=== PATIENT | male | born 1960 | race Caucasian/White ===

== ENCOUNTER 2023-04-29 09:43 | Outpatient (OUT) | payer MEDICARE, SELFPAY ==
--- NOTE | 2023-04-29 10:06 | CT_ITS ---
[address] [address] Patient Name: JUANITA KRAMER MRN: [id number] date: 1960 Sex: M Assigned Patient Location: CT Current Patient Location: Accession/Order Number: [id number] Exam Date: 04/29/2023 10:15 Report Date: 04/30/2023 10:39 At the request of: JAMESON WHITE Procedure: CT lung screening low-dose EXAMINATION: CT lung screening low-dose HISTORY: Personal History Of Nicotine Dependence Z87.891 COMPARISON: CT chest 04/10/2022 TECHNIQUE: Axial, Coronal, and Sagittal images were created without the administration of IV contrast material. Dose reduction techniques were achieved by using automated exposure control and/or adjustment of mA and/or kV according to patient size and/or use of iterative reconstruction technique. FINDINGS: LUNGS: Several small pleural-based nodules bilaterally, some calcified and some are noncalcified. Mild emphysematous changes. PLEURA: No mass, effusion, or pneumothorax. VASCULATURE: No abnormality. ROSMERY: Calcified right hilar lymph nodes. MEDIASTINUM: Calcified subcarinal lymph nodes. CARDIAC: No enlargement, pericardial thickening, or significant calcification. AORTA: No aneurysm or dissection. CHEST WALL: No mass or axillary adenopathy BONES: No bone lesion or fracture. LIMITED ABDOMEN: No suspicious findings. Limited images of the upper abdomen. OTHER: Negative. CT/CT lung screening low-dose IMPRESSION: 1. Lung-RADS 2- Benign Appearance or Behavior. Nodules with a very low likelihood of becoming a clinically active cancer due to size or lack of growth. Follow-up CT Chest in 1 year. 2. Chronic granulomatous disease. 3. Mild emphysematous changes. Electronically authenticated by: YARIEL OLSON Date: 04/30/2023 10:39
== END 2023-04-29 09:44 | disposition home or self-care (01) ==
LOC: CT 09:46
PROVIDERS: PCP Nurse Practitioner; Visit Provider Internal Medicine
DX: Z87.891 Personal history of nicotine dependence (principal); Z12.2 Encounter for screening for malignant neoplasm of respiratory organs; D71 Functional disorders of polymorphonuclear neutrophils; J43.9 Emphysema, unspecified; R91.8 Other nonspecific abnormal finding of lung field
CPT/HCPCS: 71271

== ENCOUNTER 2023-04-29 09:47 | Outpatient (OUT) | payer MEDICARE, SELFPAY ==
[2023-04-29 10:22] LABS: Basophils Absolute Auto 0.1 10^3/uL (0.0-0.1); Basophils Percent Auto 0.8 % (0.2-2.0); Eosinophils Percent Auto 0.1 % (0.9-7.0); Hematocrit 44.5 % (42.0-54.0); Hemoglobin 14.3 g/dL (14.0-18.0); Immature Granulocytes Abs Auto 0.05 10^3/uL (0.00-0.03); Immature Granulocytes Pct Auto 0.5 % (0.0-0.5); Lymphocytes Absolute Auto 1.4 10^3/uL (1.2-3.8); Lymphocytes Percent Auto 15.4 % (20.5-60.0); Mean Corpuscular HGB Conc 32.1 g/dL (29.9-35.2); Mean Corpuscular Hemoglobin 29.5 pg (25.9-34.0); Mean Corpuscular Volume 91.8 fL (80.0-94.0); Mean Platelet Volume 9.6 fL (9.5-13.5); Monocytes Percent Auto 10.8 % (1.7-12.0); Neutrophils Absolute Auto 6.8 10^3/uL (1.4-6.5); Neutrophils Percent Auto 72.4 % (43.0-75.0); Platelet Count 318 10^3/uL (150-450); Red Blood Count 4.85 10^6/uL (4.70-6.10); Red Cell Distribution Width 12.7 % (11.0-15.0); White Blood Count 9.3 10^3/uL (4.0-11.0)
[2023-04-29 10:27] LABS: Alanine Aminotransferase 25 U/L (16-63); Albumin Level 3.7 g/dL (3.4-5.0); Alkaline Phosphatase 61 U/L (46-116); Anion Gap 11.7; Aspartate Amino Transferase 19 U/L (15-37); BUN Creatinine Ratio 12.7; Bilirubin Total 0.8 mg/dL (0.2-1.0); Calcium 8.6 mg/dL (8.5-10.1); Carbon Dioxide 29.6 mmol/L (21.0-32.0); Chloride 100 mmol/L (98-107); Chol HDL Ratio 2.3; Cholesterol 126 mg/dL (<=200); Estimated GFR (African America >60 (>=60); Estimated GFR (Non-African Ame >60 (>=60); Globulin 3.7 g/dL; Glucose 104 mg/dL (74-106); HDL Cholesterol 54 mg/dL (40-60); LDL Cholesterol Calculated 63.4 mg/dL; Potassium 4.3 mmol/L (3.5-5.1); Sodium 137 mmol/L (136-145); Total Protein 7.4 g/dL (6.4-8.2); Triglycerides 43 mg/dL (<=150); VLDL CHOLESTEROL 8.6 mg/dL
[2023-04-29 10:30] LABS: Bilirubin Urine NEGATIVE (NEGATIVE); Blood Urine NEGATIVE (NEGATIVE); Clarity Urine CLEAR (CLEAR); Color Urine YELLOW (YELLOW); Glucose Urine UA NEGATIVE (NEGATIVE); Ketones Urine NEGATIVE (NEGATIVE); Leukocyte Esterase Urine NEGATIVE (NEGATIVE); Nitrite Urine NEGATIVE (NEGATIVE); Protein Urine NEGATIVE (NEG/TRACE); pH Urine 7.5 (5.0-9.0)
[2023-04-29 10:40] LABS: Bacteria Urine NONE SEEN #/HPF (NONE SEEN); Mucus Urine NONE SEEN (NONE SEEN); RBC Urine NONE SEEN #/HPF (0-2); Squamous Epithelial Cell Urine RARE #/LPF (NONE/RARE); WBC Urine NONE SEEN #/HPF (NONE SEEN)
[2023-04-29 10:55] LABS: Prostate Specific Antigen Scrn 0.94 ng/mL (<=4.00)
== END 2023-04-29 09:48 | disposition home or self-care (01) ==
PROVIDERS: PCP Nurse Practitioner; Visit Provider Nurse Practitioner
DX: I65.29 Occlusion and stenosis of unspecified carotid artery (principal); Z79.899 Other long term (current) drug therapy; Z12.5 Encounter for screening for malignant neoplasm of prostate; Z72.0 Tobacco use
CPT/HCPCS: 36415; 80053; 80061; 81001; 85025; G0103

== ENCOUNTER 2023-09-20 23:50 | Emergency (ER) | payer MEDICARE, SELFPAY ==
[2023-09-21 00:07] VITALS: BP 118/77; PULSE 90; RESP 20; TEMP 36.8; O2SAT 93; BMI 24.4
[2023-09-21 00:10] VITALS: O2SAT 93
--- NOTE | 2023-09-21 00:24 | ECG_ITS ---
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
--- NOTE | 2023-09-21 00:24 | XR_ITS ---
The [address] [address] Patient Name: JUANITA KRAMER MRN: [id number] date: 1960 Sex: M Assigned Patient Location: ER Current Patient Location: ER Accession/Order Number: [id number] Exam Date: 09/21/2023 00:36 Report Date: 09/21/2023 01:01 At the request of: ANG EDWARDS Procedure: XR chest 1V EXAMINATION: XR chest 1V HISTORY: SOB COMPARISON: XR chest 09/25/2022 FINDINGS: LUNGS: No significant pulmonary parenchymal abnormalities. VASCULATURE: No increased pulmonary vasculature. PLEURA: No pneumothorax, effusion, or pleural thickening. CARDIAC: No cardiomegaly or cardiac silhouette abnormality. MEDIASTINUM: No visible mass or adenopathy. BONES: No fracture or visible bone lesion. OTHER: Negative. XR/XR chest 1V IMPRESSION: 1. No acute cardiopulmonary process. Stable chest. Electronically authenticated by: YARIEL OLSON Date: 09/21/2023 01:01
--- NOTE | 2023-09-21 00:25 | ED.SOB1 ---
HPI - SOB/Dyspnea General Chief Complaint: Shortness of Breath/Dyspnea Stated Complaint: SOB, COUGH Time Seen by Provider: 09/21/23 00:06 Source: patient Mode of arrival: walk-in Limitations: no limitations History of Present Illness HPI Narrative: 63-year-old male presents for cough and difficulty breathing. It started earlier today and he is worried about having Covid or influenza. He has chronic obstructive pulmonary disease and quit smoking about a year ago. He's been coughing up sometimes a small amount of white phlegm but generally it's nonproductive. He used his nebulizer home. No known fever. Related Data Home Medications Medication Instructions Recorded Confirmed albuterol sulfate 90 mcg/actuation inhalation 09/21/23 aerosol inhaler aspirin 81 mg tablet,delayed mg 09/21/23 release atorvastatin 40 mg tablet mg 09/21/23 budesonide-formoterol HFA 160 inhalation 09/21/23 mcg-4.5 mcg/actuation aerosol inhaler (Symbicort) fluoxetine 10 mg capsule mg 09/21/23 tiotropium bromide 2.5 inhalation 09/21/23 mcg/actuation mist for inhalation (Spiriva Respimat) trazodone 50 mg tablet mg 09/21/23 Previous Rx's Medication Instructions Recorded azithromycin 250 mg tablet See Rx Instructions PO .COMPLEX #6 09/21/23 (Zithromax Z-Igor) tabs prednisone 10 mg tablet See Rx Instructions .Route 09/21/23 .COMPLEX #30 tabs Allergies Allergy/AdvReac Type Severity Reaction Status Date / Time No Known Drug Allergies Allergy Verified 09/21/23 00:12 Review of Systems ROS Narrative A ten point review of systems is negative except as noted above. PFSH PFSH Social History Smoking status: Former smoker Exam Narrative Exam Narrative: Nurses note and vital signs reviewed and patient is not hypoxic. General: The patient appears well and in no apparent distress. Patient is resting comfortably on cart. Skin: Warm, dry, no pallor noted. There is no rash noted. Head: Normocephalic, atraumatic Eye: Normal conjunctiva, no drainage Ears, Nose, Mouth, and Throat: oral mucosa is moist. Nares patent. Cardiovascular: Regular Rate and Rhythm Respiratory: lateral rhonchi throughout with good air movement and equal breath sounds Back: non-tender GI: soft and nontender Musculoskeletal: The patient has no evidence of calf tenderness, no pitting edema, symmetrical pulses noted bilaterally Neurological: A&O, normal speech Psychiatric: Cooperative Constitutional Vital Signs, click to edit/add: Last Vital Signs Temp 98.3 F 09/21/23 00:07 Pulse 89 09/21/23 01:06 Resp 18 09/21/23 01:06 BP 118/77 09/21/23 00:07 Pulse Ox 94 L 09/21/23 01:06 O2 Del Method Nasal Cannula 09/21/23 00:50 O2 Flow Rate 2 09/21/23 01:06 Course Vital Signs Vital signs: Vital Signs Temperature 98.3 F 09/21/23 00:07 Pulse Rate 90 09/21/23 00:07 Respiratory Rate 20 09/21/23 00:07 Blood Pressure 118/77 09/21/23 00:07 Pulse Oximetry 93 L 09/21/23 00:07 Oxygen Delivery Method Room Air 09/21/23 00:07 Temperature 98.3 F 09/21/23 00:07 Pulse Rate 89 09/21/23 01:06 Respiratory Rate 18 09/21/23 01:06 Blood Pressure 118/77 09/21/23 00:07 Pulse Oximetry 94 L 09/21/23 01:06 Oxygen Delivery Method Nasal Cannula 09/21/23 00:50 Oxygen Delivery Flow Rate 2 09/21/23 01:06 MDM - SOB/Dyspnea MDM Narrative Medical decision making narrative: Covid, influenza, and chest x-ray are negative. He was given IV Solu-Medrol and aerosol treatment and feels improved and is able to be discharged home. Treatment diagnosis and follow-up were discussed with the patient. Differential Diagnosis Differential diagnosis: Likely acute exacerbation of chronic obstructive airways disease, congestive heart failure, community acquired pneumonia and other (Covid, influenza) Lab Data Attestation: I reviewed the patient's lab results. Labs: Lab Results 09/21/23 Range/Units 00:28 WBC 9.7 (4.0-11.0) 10^3/uL RBC 4.72 (4.70-6.10) 10^6/uL Hgb 13.9 L (14.0-18.0) g/dL Hct 43.6 (42.0-54.0) % MCV 92.4 (80.0-94.0) fL MCH 29.4 (25.9-34.0) pg MCHC 31.9 (29.9-35.2) g/dL RDW 12.3 (11.0-15.0) % Plt Count 311 (150-450) 10^3/uL MPV 9.8 (9.5-13.5) fL Neut % (Auto) 69.3 (43.0-75.0) % Lymph % (Auto) 17.9 L (20.5-60.0) % [place] % (Auto) 11.3 (1.7-12.0) % Eos % (Auto) 0.1 L (0.9-7.0) % Baso % (Auto) 0.8 (0.2-2.0) % Neut # (Auto) 6.8 H (1.4-6.5) 10^3/uL Lymph # (Auto) 1.7 (1.2-3.8) 10^3/uL [place] # (Auto) 1.1 H (0.3-0.8) 10^3/uL Eos # (Auto) 0.0 (0.0-0.7) 10^3/uL Baso # (Auto) 0.1 (0.0-0.1) 10^3/uL Abs Immat Gran (auto) 0.06 H (0.00-0.03) 10^3/uL Imm/Tot Granulo (auto) 0.6 H (0.0-0.5) % Sodium 140 (136-145) mmol/L Potassium 4.3 (3.5-5.1) mmol/L Chloride 104 (98-107) mmol/L Carbon Dioxide 29.3 (21.0-32.0) mmol/L Anion Gap 11.0 BUN 27.0 H (7.0-18.0) mg/dL Creatinine 1.12 (0.70-1.30) mg/dL Est GFR ( Amer) >60 (>=60) Est GFR (Non-Af Amer) >60 (>=60) BUN/Creatinine Ratio 24.1 Glucose 109 H (74-106) mg/dL Calcium 9.1 (8.5-10.1) mg/dL SARS-CoV-2 (PCR) Negative (NEGATIVE) Influenza Type A Ag Negative Influenza Type B Ag Negative Imaging Data Chest x-ray: Radiologist's impression: Procedure: XR chest 1V EXAMINATION: XR chest 1V HISTORY: SOB COMPARISON: XR chest 09/25/2022 FINDINGS: LUNGS: No significant pulmonary parenchymal abnormalities. VASCULATURE: No increased pulmonary vasculature. PLEURA: No pneumothorax, effusion, or pleural thickening. CARDIAC: No cardiomegaly or cardiac silhouette abnormality. MEDIASTINUM: No visible mass or adenopathy. BONES: No fracture or visible bone lesion. OTHER: Negative. IMPRESSION: 1. No acute cardiopulmonary process. Stable chest. Electronically authenticated by: YARIEL OLSON Date: 09/21/2023 01:01 Critical Care Time Critical Care Time Critical Care Time: Yes Total Critical Care Time: 35 Attestation: Due to the high probability of sudden and clinically significant deterioration in the patient's condition he/she required the highest level of my preparedness to intervene urgently I provided critical care time including documentation time, medication orders and management, reevaluation, vital sign assessment, ordering and reviewing of lab tests, ordering and reviewing of x-ray studies, and admission orders. Aggregate critical care time is 35 minutes including only time during which I was engaged in work directly related to his/her care and did not include time spent treating other patients simultaneously. Discharge Plan Discharge Chief Complaint: Shortness of Breath/Dyspnea Clinical Impression: Acute exacerbation of chronic obstructive pulmonary disease Patient Disposition: Home, Self-Care Time of Disposition Decision: 02:02 Condition: Good Mode of Transportation: Private Vehicle Prescriptions / Home Meds: New prednisone 10 mg tablet See Rx Instructions .ROUTE .COMPLEX Qty: 30 0RF Rx Instructions: 4 by mouth daily for three days then 3 by mouth daily for three days then 2 by mouth daily for three days then 1 by mouth daily for three days azithromycin [Zithromax Z-Igor] 250 mg tablet See Rx Instructions .ROUTE .COMPLEX Qty: 6 0RF Rx Instructions: For 250 mg dose pack: take 500 mg today (day 1), then 250 mg for 4 days (days 2-5) No Action atorvastatin 40 mg tablet trazodone 50 mg tablet aspirin 81 mg tablet,delayed release (DR/EC) fluoxetine 10 mg capsule albuterol sulfate 90 mcg/actuation HFA aerosol inhaler INHALATION budesonide-formoterol [Symbicort] 160-4.5 mcg/actuation HFA aerosol inhaler INHALATION Spiriva Respimat 2.5 mcg/actuation mist INHALATION Instructions: COPD (Chronic Obstructive Pulmonary Disease) (ED) Stand Alone Forms: Portal Instructions Referrals: Azul Quezada NP [Primary Care Provider] - 1 week
[2023-09-21 00:37] LABS: Basophils Absolute Auto 0.1 10^3/uL (0.0-0.1); Basophils Percent Auto 0.8 % (0.2-2.0); Eosinophils Percent Auto 0.1 % (0.9-7.0); Hematocrit 43.6 % (42.0-54.0); Hemoglobin 13.9 g/dL (14.0-18.0); Immature Granulocytes Abs Auto 0.06 10^3/uL (0.00-0.03); Immature Granulocytes Pct Auto 0.6 % (0.0-0.5); Lymphocytes Absolute Auto 1.7 10^3/uL (1.2-3.8); Lymphocytes Percent Auto 17.9 % (20.5-60.0); Mean Corpuscular HGB Conc 31.9 g/dL (29.9-35.2); Mean Corpuscular Hemoglobin 29.4 pg (25.9-34.0); Mean Corpuscular Volume 92.4 fL (80.0-94.0); Mean Platelet Volume 9.8 fL (9.5-13.5); Monocytes Absolute Auto 1.1 10^3/uL (0.3-0.8); Monocytes Percent Auto 11.3 % (1.7-12.0); Neutrophils Absolute Auto 6.8 10^3/uL (1.4-6.5); Neutrophils Percent Auto 69.3 % (43.0-75.0); Platelet Count 311 10^3/uL (150-450); Red Blood Count 4.72 10^6/uL (4.70-6.10); Red Cell Distribution Width 12.3 % (11.0-15.0); White Blood Count 9.7 10^3/uL (4.0-11.0)
[2023-09-21 00:48] LABS: BUN Creatinine Ratio 24.1; Calcium 9.1 mg/dL (8.5-10.1); Carbon Dioxide 29.3 mmol/L (21.0-32.0); Chloride 104 mmol/L (98-107); Estimated GFR (African America >60 (>=60); Estimated GFR (Non-African Ame >60 (>=60); Glucose 109 mg/dL (74-106); Potassium 4.3 mmol/L (3.5-5.1); Sodium 140 mmol/L (136-145)
[2023-09-21 00:50] VITALS: O2SAT 87
[2023-09-21 00:50] LABS: Influenza Virus A Antigen Negative; Influenza Virus B Antigen Negative; Internal Control Within Normal Limits; SARS-CoV-2 Ag NEGATIVE (NEGATIVE)
[2023-09-21] MEDS: METHYLPREDNISOLONE SOD SUCC PF 125 MG/2 ML VIAL IVP (01:00)
[2023-09-21 01:06] VITALS: PULSE 89; RESP 18; O2SAT 94
[2023-09-21] MEDS: ALBUTEROL SULFATE 2.5 MG/3 ML VIAL NEB IH (01:06)
[2023-09-21 02:33] VITALS: BP 132/70; PULSE 68; RESP 12; O2SAT 98
[2023-09-21 10:23] LABS: SARS-CoV-2 NAA NOT DETECTED (NOT DETECTE)
== END 2023-09-21 02:36 | disposition home or self-care (01) ==
PROVIDERS: Emergency Provider Emergency Medicine; PCP Nurse Practitioner
DX: J44.1 Chronic obstructive pulmonary disease with (acute) exacerbation (principal); Z87.891 Personal history of nicotine dependence; Z79.51 Long term (current) use of inhaled steroids; Z79.82 Long term (current) use of aspirin
CPT/HCPCS: 36415; 71045; 80048; 85025; 87635; 87804; 87811; 93005; 94640; 96374; 99285; J2930

== ENCOUNTER 2023-10-21 11:35 | Inpatient (IN) | payer MEDICARE, SELFPAY ==
[2023-10-21] VITALS (12 sets, daily range): BP systolic 96–141; BP diastolic 72–75; PULSE 91–112; RESP 18–24; TEMP 36.4–37.3; O2SAT 85–106; BMI 29.9; BMI 29.6
--- OUTSIDE RECORDS SUMMARY | 2023-10-21 11:41 | XMS_ITS | CCD ---
Author Name Unknown Address [address] [place] [address] Organization [facility] Care Team Providers Care Feather Sawyer Name Role Phone SAMSA, JAMESON Admitting Unavailable SAMSA, AJMESON Attending Unavailable AICHHOLZ, COATING MACHINE OPERATOR JAYDEN Referring Unavailable AICHHOLZ, COATING MACHINE OPERATOR JAYDEN Primary Care Unavailable SAMSA, JAMESON Consulting Unavailable AICHHOLZ, COATING MACHINE OPERATOR JAYDEN Admitting Unavailable AICHHOLZ, COATING MACHINE OPERATOR JAYDEN Attending Unavailable AICHHOLZ, COATING MACHINE OPERATOR JAYDEN Primary Care Unavailable AICHHOLZ, COATING MACHINE OPERATOR JAYDEN Consulting Unavailable SAMSA, JAMESON Admitting Unavailable SAMSA, JAMESON Attending Unavailable AICHHOLZ, COATING MACHINE OPERATOR JAYDEN Primary Care Unavailable WHITNEY, DR YARIEL Figueroa Consulting Unavailable SAMSA, JAMESON Consulting Unavailable AICHHOLZ, COATING MACHINE OPERATOR JAYDEN Primary Care Unavailable DAREN, DR MAURO Admitting Unavailable DAREN, DR MAURO Attending Unavailable DR YARIEL OLSON Consulting Unavailable DAREN, DR MAURO Consulting Unavailable Problems Active Problems Problem Classification Problem Date Documented Da te Episodic/Chronic Anxiety disorders (1 source) Other specified anxiety disorders; 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: [OTHER SPECIFIED ANXIETY DISORDERS] Onset: 03-07-2022 Chronic Chronic obstructive pulmonary disease and bronchiectasis (5 sources) Emphysema, unspecified; 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: [Centrilobular emphysema] Onset: 04-16-2022 Chronic Occlusion or stenosis of precerebral arteries (4 sources) Occlusion and stenosis of bilateral carotid arteries; 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: [OCCLUSION AND STENOS LEAH CAROTID ART] Onset: 03-06-2022 Chronic Other lower respiratory disease (4 sources) Shortness of breath; 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: [SHORTNESS OF BREATH] Onset: 09-25-2022 Episodic Screening and history of mental health and substance abuse codes (1 source) Personal history of nicotine dependence; 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: [PERSONAL HISTORY OF NICOTINE DEPEND] Onset: 09-27-2022 Episodic Unclassified (1 source) CONTACT W/AND (SUSP) EXPOS COVID-19; 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: [CONTACT W/AND (SUSP) EXPOS COVID-19] Onset: 09-27-2022 Unclassified (1 source) EOSINOPHILIA UNSPECIFIED; 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: [EOSINOPHILIA UNSPECIFIED] Onset: 04-20-2022 Past or Other Problems Problem Classification Problem Date Documented Da te Episodic/Chronic Other screening for suspected conditions (not mental disorders or infectious disease) (5 sources) Encounter for screening for malignant neoplasm of respiratory organs; 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: [Encounter for screening for malignant neoplasm of prostate] Onset: 03-07-2022 Episodic Results Test Name Value Interpretation Reference Range Facility BNPon 09-25-2022 Natriuretic peptide B (Bld) [Mass/Vol] 42.0 pg/mL Normal <=900.0 [facility] Comment on above: Performed By: #### I NFLUAB #### [facility] [address] [place] [address] Dr. Tom Dotson CBC AUTO DIFFon 09-25-2022 BASO # 0.1 103/ul Normal 0.0-0.1 [facility] Comment on above: Performed By: #### C BC #### [facility] [address] [place] [address] Dr. Tom Dotson Basophils/100 WBC (Bld) 0.8 % Normal 0.2-2.0 [facility] Comment on above: Performed By: #### C BC #### [facility] [address] [place] [address] Dr. Tom Dotson EO # 0.0 103/ul Normal 0.0-0.7 [facility] Comment on above: Performed By: #### C BC #### [facility] [address] [place] [address] Dr. Tom Dotson Eosinophils/100 WBC (Bld) 0.0 % Critically low 0.9-7.0 [facility] Comment on above: Performed By: #### C BC #### [facility] [address] [place] [address] Dr. Tom Dotson Erythrocyte distribution width (RBC) [Ratio] 12.4 % Normal 11.0-15.0 [facility] Comment on above: Performed By: #### C BC #### [facility] [address] [place] [address] Dr. Tom Dotson Hematocrit (Bld) [Volume fraction] 43.6 % Normal 42.0-54.0 [facility] Comment on above: Performed By: #### C BC #### [facility] [address] [place] [address] Dr. Tom Dotson Hemoglobin (Bld) [Mass/Vol] 14.3 g/dL Normal 14.0-18.0 [facility] Comment on above: Performed By: #### C BC #### [facility] [address] [place] [address] Dr. Tom Dotson IG # 0.02 10e3/ul Normal 0.00-0.03 [facility] Comment on above: Performed By: #### C BC #### [facility] [address] [place] [address] Dr. Tom Dotson IG % 0.3 % Normal 0.0-0.5 [facility] Comment on above: Performed By: #### C BC #### [facility] [address] [place] [address] Dr. Tom Dotson LYMPH # 1.4 103/ul Normal 1.2-3.8 [facility] Comment on above: Performed By: #### C BC #### [facility] [address] [place] [address] Dr. Tom Dotson Lymphocytes/100 WBC (Bld) 17.3 % Critically low 20.5-60.0 [facility] Comment on above: Performed By: #### C BC #### [facility] [address] [place] [address] Dr. Tom Dotson MANUAL DIFF REQ NO Normal [facility] Comment on above: Performed By: #### C BC #### [facility] [address] [place] [address] Dr. Tom Dotson MCH (RBC) [Entitic mass] 29.8 pg Normal 25.9-34.0 [facility] Comment on above: Performed By: #### C BC #### [facility] [address] [place] [address] Dr. Tmo Dotson MCHC (RBC) [Mass/Vol] 32.8 g/dL Normal 29.9-35.2 [facility] Comment on above: Performed By: #### C BC #### [facility] [address] [place] [address] Dr. Tom Dotson MCV (RBC) [Entitic vol] 90.8 fL Normal 80.0-94.0 [facility] Comment on above: Performed By: #### C BC #### [facility] [address] [place] [address] Dr. Tom Dotson MONO # 0.7 103/ul Normal 0.3-0.8 [facility] Comment on above: Performed By: #### C BC #### [facility] [address] [place] [address] Dr. Tom Dotson Monocytes/100 WBC (Bld) 9.4 % Normal 1.7-12.0 [facility] Comment on above: Performed By: #### C BC #### [facility] [address] [place] [address] Dr. Tom Dotson NEUT # 5.7 103/ul Normal 1.4-6.5 [facility] Comment on above: Performed By: #### C BC #### [facility] [address] [place] [address] Dr. Tom Dotson Neutrophils/100 WBC (Bld) 72.2 % Normal 43.0-75.0 [facility] Comment on above: Performed By: #### C BC #### [facility] [address] [place] [address] Dr. Tom Dotson Platelet mean volume (Bld) [Entitic vol] 9.6 fL Normal 9.5-13.5 [facility] Comment on above: Performed By: #### C BC #### [facility] [address] [place] [address] Dr. Tom Dotson PLT 331 103/ul Normal 150-450 [facility] Comment on above: Performed By: #### C BC #### [facility] [address] [place] [address] Dr. Tom Dotson RBC 4.80 106/ul Normal 4.70-6.10 [facility] Comment on above: Performed By: #### C BC #### [facility] [address] [place] [address] Dr. Tom Dotson WBC 7.8 103/ul Normal 4.0-11.0 [facility] Comment on above: Performed By: #### C BC #### [facility] [address] [place] [address] Dr. Tom Dotson CULTURE BLOODon 09-25-2022 Microscopic examination of blood, culture Culture Observations: NO GROWTH AT 5 DAYS. Normal [facility] Comment on above: Performed By: #### I NFLUAB #### [facility] [address] [place] [address] Dr. Tom Dotson Microscopic examination of blood, culture Culture Observations: NO GROWTH AT 5 DAYS. Normal [facility] Comment on above: Performed By: #### I NFLUAB #### [facility] [address] [place] [address] Dr. Tom Dotson Covid-19 PCR (CVDTB)on SARS-CoV-2 (COVID-19) RNA OLAG+probe Ql (Unsp spec) Not detected Normal NOT DETECTED [facility] Comment on above: Result Comment: When diagnostic testing is negative, the possibility of a false negative should be considered in the context of a patient's recent exposures and the presence of clinical signs and symptoms consistent with SARS-CoV-2. This test is not yet approved or cleared by the [place] FDA. When there are no FDA-approved or cleared tests available, and other criteria are met, FDA can make tests available under an emergency access mechanism called an Emergency Use Authorization (EUA). The EUA for this test is supported by the [place] [employer] Superintendent of Health and Human Service's declaration that circumstances exist to justify the emergency use of in vitro diagnostics for the detection and/or diagnosis of the virus that causes COVID-19. This EUA will remain in effect for the duration of the COVID-19 declaration justifying emergency of IVDs, unless it is terminated or revoked by the FDA (after which the test may no longer be used). Performed By: #### C VDTBH #### [facility] [address] [place] [address] Dr. Tom Dotson INFLUENZA A AND B AGon 09-25 INFLUANEGH SEE BELOW Normal [facility] Comment on above: Result Comment: Nega tive for Flu A protein angiten. Infection due to Flu A cannot be ruled out. Flu A angiten in the sample may be below the detection limit of the test. Performed By: #### I NFLUAB #### [facility] [address] [place] [address] Dr. Tom Dotson INFLUBNEG SEE BELOW Normal [facility] Comment on above: Result Comment: Nega tive for Flu B protein antigen. Infection due to Flu B cannot be ruled out. Flu B antigen in the sample may be below the detection limit of the test. Performed By: #### I NFLUAB #### [facility] [address] [place] [address] Dr. Tom Dotson INFLUENZA A AG Negative Normal NEGATIVE SEE COMMENT [facility] Comment on above: Performed By: #### I NFLUAB #### [facility] [address] [place] [address] Dr. Tom Dotson INFLUENZA B AG Negative Normal NEGATIVE SEE COMMENT [facility] Comment on above: Performed By: #### I NFLUAB #### [facility] [address] [place] [address] Dr. Tom Dotson LACTATE/LACTIC ACIDon 2022 Lactate [Moles/Vol] 0.7 mmol/L Normal 0.4-1.9 [facility] Comment on above: Performed By: #### L ACT #### [facility] [address] [place] [address] Dr. Tom Dotson PROF CHEM 8 (BAS METB)on Anion gap [Moles/Vol] 9.3 mmol/L Normal [facility] Comment on above: Performed By: #### H STROPN, BMP, BNP #### [facility] [address] [place] [address] Dr. Tom Dotson Calcium [Mass/Vol] 8.8 mg/dL Normal 8.5-10.1 [facility] Comment on above: Performed By: #### H STROPN, BMP, BNP #### [facility] [address] [place] [address] Dr. Tom Dotson Chloride [Moles/Vol] 103 mmol/L Normal 98-107 [facility] Comment on above: Performed By: #### H STROPN, BMP, BNP #### [facility] [address] [place] [address] Dr. Tom Dotson CO2 [Moles/Vol] 31.1 mmol/L Normal 21.0-32.0 [facility] Comment on above: Performed By: #### H STROPN, BMP, BNP #### [facility] [address] [place] [address] Dr. Tom Dotsno Creatinine [Mass/Vol] 0.77 mg/dL Normal 0.70-1.30 [facility] Comment on above: Performed By: #### H STROPN, BMP, BNP #### [facility] [address] [place] [address] Dr. Tom Dotson EGFR-AF MACANESE >60 Normal >=60 [facility] Comment on above: Performed By: #### H STROPN, BMP, BNP #### [facility] [address] [place] [address] Dr. Tom Dotson EGFR-NON AF MACANESE >60 Normal >=60 [facility] Comment on above: Performed By: #### H STROPN, BMP, BNP #### [facility] [address] [address] [address] Tom Dotson Glucose [Mass/Vol] 98 mg/dL Normal 74-106 [facility] Comment on above: Performed By: #### H STROPN, BMP, BNP #### [facility] [address] [place] [address] Dr. Tom Dotson Potassium [Moles/Vol] 4.4 mmol/L Normal 3.5-5.1 [facility] Comment on above: Performed By: #### H STROPN, BMP, BNP #### [facility] [address] [place] [address] Dr. Tom Dotson Sodium [Moles/Vol] 139 mmol/L Normal 136-145 [facility] Comment on above: Performed By: #### H STROPN, BMP, BNP #### [facility] [address] [address] [address] Tom Dotson Urea nitrogen [Mass/Vol] 13.0 mg/dL Normal 7.0-18.0 [facility] Comment on above: Performed By: #### H STROPN, BMP, BNP #### [facility] [address] [address] [address] Tom Dotson Urea nitrogen/Creatinine [Mass ratio] 16.9 mg/mg Normal [facility] Comment on above: Performed By: #### H STROPN, BMP, BNP #### [facility] [address] [address] [address] Tom Dotson TROPONIN, HIGH SENSITIVITYon 09-25-2022 HSTROP 7.4 pg/mL Normal 4.0-76.1 [facility] Comment on above: Result Comment: CUT- OFF POINTS HAVE BEEN ESTABLISHED BASED ON THE FOURTH UNIVERSAL DEFINITIONS OF MYOCARDIAL INFARCTION. THE UPPER REFERENCE LIMIT (URL) OF TROPONIN, DEFINED THE 99TH PERCENTILE OF cTnI DISTRIBUTION IN A REFERENCE POPULATION, HAS BEEN CONFIRMED THE DECISION THRESHOLD FOR ID DIAGNOSIS. Performed By: #### I NFLUAB #### [facility] [address] [address] [address] Tom Dotson XR CHEST 1 Von 09-25-2022 XR CHEST 1 V EXAMINATION: XR CHES T 1 V HISTORY: SHORTNESS OF BREATH , cough COMPARISON: No relevant comparison available. FINDINGS: LUNGS: Hyperexpanded lungs. No significant pulmonary parenchymal abnormalities. VASCULATURE: No increased pulmonary vasculature. PLEURA: No pneumothorax, effusion, or pleural thickening. CARDIAC: No cardiomegaly or cardiac silhouette abnormality. MEDIASTINUM: No visible mass or adenopathy. BONES: No fracture or visible bone lesion. OTHER: Negative. IMPRESSION: 1. No acute cardiopulmonary process. Electronically authenticated by: YARIEL OLSON Date: 2022-09-25 10:55 Normal [facility] ASPERGILLUS AB, QUANTITATIVE DIDon 04-20-2022 Aspergillus flavus Negative Normal Neg:<1:1 [facility] Comment on above: Performed By: #### A SPDID #### [facility] [address] [address] [address] Tom Dotson Aspergillus fumigatus Negative Normal Neg:<1:1 [facility] Comment on above: Performed By: #### A SPDID #### [facility] [address] [address] [address] Tom Dotson Aspergillus niger Negative Normal Neg:<1:1 [facility] Comment on above: Performed By: #### A SPDID #### [facility] [address] [address] [address] Tom Dotson ANTI NEUTROPHIL CYTOPLASMIC AB (ANCA) PRon 04-19-2022 Anti-MPO Antibodies <0.2 Normal 0.0-0.9 [facility] Comment on above: Result Comment: Perf ormed at: BN Performed By: #### C BC #### [facility] [address] [place] [address] Dr. Tom Dotson Anti-PR3 Antibodies <0.2 Normal 0.0-0.9 [facility] Comment on above: Result Comment: Perf ormed at: BN Performed By: #### C BC #### [facility] [address] [place] [address] Dr. Tom Dotson Atypical pANCA <1:20 Normal Neg:<1:20 [facility] Comment on above: Result Comment: The atypical pANCA pattern has been observed in a significant percentage of patients with ulcerative colitis, primary sclerosing cholangitis and autoimmune hepatitis. Performed at: CB Performed By: #### C BC #### [facility] [address] [place] [address] Dr. Tom Dotson Cytoplasmic (C-ANCA) <1:20 Normal Neg:<1:20 [facility] Comment on above: Result Comment: Perf ormed at: CB Performed By: #### C BC #### [facility] [address] [place] [address] Dr. Tom Dotson Perinuclear (P-ANCA) <1:20 Normal Neg:<1:20 [facility] Comment on above: Result Comment: The presence of positive fluorescence exhibiting P-ANCA or C-ANCA patterns alone is not specific for the diagnosis of Nevin's Granulomatosis (WG) or microscopic polyangiitis. Decisions about treatment should not be based solely on ANCA IFA results. The [employer] ANCA [employer] Consensus recommends follow up testing of positive sera with both MN-3 and MPO-ANCA enzyme immunoassays. As many as 5% serum samples are positive only by EIA. Ref. AM J Clin Pathol 1999;111:507-513. Performed at: CB Performed By: #### C BC #### [facility] [address] [place] [address] Dr. Tom Dotson IMMUNOGLOBULIN E, TOTALon Immunoglobulin E, Total 68 IU/mL Normal 6-495 [facility] Comment on above: Performed By: #### I GETOT #### [facility] [address] [place] [address] Dr. Tom Dotson ANGIOTENSION-CONVERTING ENZY ME (ELINOR)on 04-17-2022 ELINOR 28 U/L Normal 14-82 [facility] Comment on above: Performed By: #### A NGIOC #### [facility] [address] [place] [address] Dr. Tom Dotson CBC AUTO DIFFon 04-16-2022 BASO # 0.1 103/ul Normal 0.0-0.1 [facility] Comment on above: Performed By: #### I NFLUAB #### [facility] [address] [place] [address] Dr. Tom Dotson Basophils/100 WBC (Bld) 1.0 % Normal 0.2-2.0 [facility] Comment on above: Performed By: #### I NFLUAB #### [facility] [address] [place] [address] Dr. Tom Dotson EO # 0.0 103/ul Normal 0.0-0.7 [facility] Comment on above: Performed By: #### I NFLUAB #### [facility] [address] [place] [address] Dr. Tom Dotson Eosinophils/100 WBC (Bld) 0.1 % Critically low 0.9-7.0 [facility] Comment on above: Performed By: #### I NFLUAB #### [facility] [address] [place] [address] Dr. Tom Dotson Erythrocyte distribution width (RBC) [Ratio] 12.9 % Normal 11.0-15.0 [facility] Comment on above: Performed By: #### I NFLUAB #### [facility] [address] [place] [address] Dr. Tom Dotson Hematocrit (Bld) [Volume fraction] 44.8 % Normal 42.0-54.0 [facility] Comment on above: Performed By: #### I NFLUAB #### [facility] [address] [place] [address] Dr. Tom Dotson Hemoglobin (Bld) [Mass/Vol] 15.0 g/dL Normal 14.0-18.0 [facility] Comment on above: Performed By: #### I NFLUAB #### [facility] [address] [place] [address] Dr. Tom Dotson IG # 0.02 10e3/ul Normal 0.00-0.03 [facility] Comment on above: Performed By: #### I NFLUAB #### [facility] [address] [place] [address] Dr. Tom Dotson IG % 0.2 % Normal 0.0-0.5 [facility] Comment on above: Performed By: #### I NFLUAB #### [facility] [address] [place] [address] Dr. Tom Dotson LYMPH # 1.4 103/ul Normal 1.2-3.8 [facility] Comment on above: Performed By: #### I NFLUAB #### [facility] [address] [place] [address] Dr. Tom Dotson Lymphocytes/100 WBC (Bld) 17.6 % Critically low 20.5-60.0 [facility] Comment on above: Performed By: #### I NFLUAB #### [facility] [address] [place] [address] Dr. Tom Dotson MANUAL DIFF REQ NO Normal [facility] Comment on above: Performed By: #### I NFLUAB #### [facility] [address] [place] [address] Dr. Tom Dotson MCH (RBC) [Entitic mass] 30.9 pg Normal 25.9-34.0 [facility] Comment on above: Performed By: #### I NFLUAB #### [facility] [address] [place] [address] Dr. Tom Dotson MCHC (RBC) [Mass/Vol] 33.5 g/dL Normal 29.9-35.2 [facility] Comment on above: Performed By: #### I NFLUAB #### [facility] [address] [place] [address] Dr. Tom Dotson MCV (RBC) [Entitic vol] 92.2 fL Normal 80.0-94.0 [facility] Comment on above: Performed By: #### I NFLUAB #### [facility] [address] [place] [address] Dr. Tom Dotson MONO # 0.8 103/ul Normal 0.3-0.8 [facility] Comment on above: Performed By: #### I NFLUAB #### [facility] [address] [place] [address] Dr. Tom Dotson Monocytes/100 WBC (Bld) 9.6 % Normal 1.7-12.0 [facility] Comment on above: Performed By: #### I NFLUAB #### [facility] [address] [place] [address] Dr. Tom Dotson NEUT # 5.9 103/ul Normal 1.4-6.5 [facility] Comment on above: Performed By: #### I NFLUAB #### [facility] [place] [facility] [address] [place] [address] Dr. Tom Dotson Neutrophils/100 WBC (Bld) 71.5 % Normal 43.0-75.0 [facility] Comment on above: Performed By: #### I NFLUAB #### [facility] [place] [facility] [address] [place] [address] Dr. Tom Dotson Platelet mean volume (Bld) [Entitic vol] 9.9 fL Normal 9.5-13.5 [facility] Comment on above: Performed By: #### I NFLUAB #### [facility] [place] [facility] [id number] Tom Dotson PLT 325 103/ul Normal 150-450 [facility] [place] Comment on above: Performed By: #### I NFLUAB #### [facility] [place] [facility] [id number] Tom Dotson RBC 4.86 106/ul Normal 4.70-6.10 [facility] Comment on above: Performed By: #### I NFLUAB #### [facility] [place] [facility] [id number] Tom Dotson WBC 8.2 103/ul Normal 4.0-11.0 [facility] Comment on above: Performed By: #### I NFLUAB #### [facility] [place] [facility] [address] [place], [place] [id number] Dr. Tom Dotson CT LUNG CANCER SCREENINGon 0 04-11-2022 CT LUNG CANCER SCREENING EXAMINATION: CT LUNG CANCER SCREENING HISTORY: Screening for malignant neoplasm of respiratory tract COMPARISON: CT lung cancer screening 04/02/2021, 03/24/2020 TECHNIQUE: Axial, Coronal, and Sagittal images were created without the administration of IV contrast material. Dose reduction techniques were achieved by using automated exposure control and/or adjustment of mA and/or kV according to patient size and/or use of iterative reconstruction technique. FINDINGS: LUNGS: Stable appearance of several small pleural-based nodules. No new nodules or overtly suspicious nodules. Stable mild emphysematous changes. Numerous calcifications adjacent the right hilum; not appreciably changed. PLEURA: No mass, effusion, or pneumothorax. VASCULATURE: No abnormality. ROSMERY: Calcified right hilar lymph nodes. MEDIASTINUM: No mass or pathologic adenopathy. CARDIAC: No enlargement, pericardial thickening, or significant calcification. AORTA: No aneurysm or dissection. CHEST WALL: No mass or axillary adenopathy BONES: No bone lesion or fracture. LIMITED ABDOMEN: No suspicious findings. Limited images of the upper abdomen. OTHER: Negative. IMPRESSION: 1. LUNG SCREENING: Lung-RADS Category 2- Benign Appearance or Behavior. Nodules with a very low likelihood of becoming a clinically active cancer due to size or lack of growth. 2. Continue annual screening with LDCT in 12 months. 2. Stable mild emphysematous changes. 3. Chronic granulomatous disease. Electronically authenticated by: YARIEL OLSON Date: 2022-04-10 22:57 Normal [facility] CBC AUTO DIFFon 03-06-2022 BASO # 0.1 103/ul Normal 0.0-0.1 [facility] Comment on above: Performed By: #### C BC #### [facility] [address] [address] [address] Tom Dotson Basophils/100 WBC (Bld) 1.0 % Normal 0.2-2.0 [facility] Comment on above: Performed By: #### C BC #### [facility] [place] [facility] [address] [address] [address] Tom Dotson EO # 2.5 103/ul Critically high 0.0-0.7 [facility] Comment on above: Performed By: #### C BC #### [facility] [place] [facility] [address] [address] [address] Tom Dotson Eosinophils/100 WBC (Bld) 29.1 % Critically high 0.9-7.0 [facility] Comment on above: Performed By: #### C BC #### [facility] [address] [address] [address] Tom Dotson Erythrocyte distribution width (RBC) [Ratio] 12.8 % Normal 11.0-15.0 [facility] Comment on above: Performed By: #### C BC #### [facility] [address] [address] [address] Tom Dotson Hematocrit (Bld) [Volume fraction] 46.6 % Normal 42.0-54.0 [facility] Comment on above: Performed By: #### C BC #### [facility] [place] [facility] [address] [address] [address] Tom Dotson Hemoglobin (Bld) [Mass/Vol] 14.4 g/dL Normal 14.0-18.0 [facility] Comment on above: Performed By: #### C BC #### [facility] [place] [facility] [address] [address] [address] Tom Dotson IG # 0.04 10e3/ul Critically high 0.00-0.03 [facility] Comment on above: Performed By: #### C BC #### [facility] [place] [facility] [address] [address] [address] Tom Dotson IG % 0.5 % Normal 0.0-0.5 [facility] Comment on above: Performed By: #### C BC #### [facility] [place] [facility] [address] [place] [address] Dr. Tom Dotson LYMPH # 1.3 103/ul Normal 1.2-3.8 [facility] Comment on above: Performed By: #### C BC #### [facility] [place] [facility] [address] [place] [address] Dr. Tom Dotson Lymphocytes/100 WBC (Bld) 15.1 % Critically low 20.5-60.0 [facility] Comment on above: Performed By: #### C BC #### [facility] [place] [facility] [address] [place] [address] Dr. Tom Dotson MANUAL DIFF REQ NO Normal [facility] Comment on above: Performed By: #### C BC #### [facility] [place] [facility] [address] [place] [address] Dr. Tom Dotson MCH (RBC) [Entitic mass] 29.5 pg Normal 25.9-34.0 [facility] Comment on above: Performed By: #### C BC #### [facility] [place] [facility] [address] [place] [address] Dr. Tom Dotson MCHC (RBC) [Mass/Vol] 30.9 g/dL Normal 29.9-35.2 [facility] Comment on above: Performed By: #### C BC #### [facility] [place] [facility] [address] [place] [address] Dr. Tom Dotson MCV (RBC) [Entitic vol] 95.5 fL Critically high 80.0-94.0 [facility] Comment on above: Performed By: #### C BC #### [facility] [place] [facility] [address] [place] [address] Dr. Tom Dotson MONO # 0.8 103/ul Normal 0.3-0.8 [facility] Comment on above: Performed By: #### C BC #### [facility] [address] [place] [address] Dr. Tom Dotson Monocytes/100 WBC (Bld) 9.5 % Normal 1.7-12.0 [facility] Comment on above: Performed By: #### C BC #### [facility] [place] [facility] [address] [place] [address] Dr. Tom Dotson NEUT # 3.9 103/ul Normal 1.4-6.5 [facility] Comment on above: Performed By: #### C BC #### [facility] [address] [place] [address] Dr. Tom Dotson Neutrophils/100 WBC (Bld) 44.8 % Normal 43.0-75.0 [facility] Comment on above: Performed By: #### C BC #### [facility] [address] [place] [address] Dr. Tom Dotson Platelet mean volume (Bld) [Entitic vol] 10.2 fL Normal 9.5-13.5 [facility] Comment on above: Performed By: #### C BC #### [facility] [address] [place] [address] Dr. Tom Dotson PLT 328 103/ul Normal 150-450 [facility] Comment on above: Performed By: #### C BC #### [facility] [address] [place] [address] Dr. Tom Dotson RBC 4.88 106/ul Normal 4.70-6.10 [facility] Comment on above: Performed By: #### C BC #### [facility] [address] [place] [address] Dr. Tom Dotson WBC 8.7 103/ul Normal 4.0-11.0 [facility] Comment on above: Performed By: #### C BC #### [facility] [address] [place] [address] Dr. Tom Dotson DIFFERENTIAL MANUALon 2021 ATYPICAL LYMPH # 0.09 103/ul Normal [facility] Comment on above: Performed By: #### D IFF #### [facility] [address] [place] [address] Dr. Tom Dotson ATYPICAL LYMPH % 1 % Normal [facility] Comment on above: Performed By: #### D IFF #### [facility] [address] [place] [address] Dr. Tom Dotson BAND # 0.0 103/ul Normal 0.0-0.3 [facility] Comment on above: Performed By: #### D IFF #### [facility] [address] [place] [address] Dr. Tom Dotson BAND % 0 % Normal 0-5 [facility] Comment on above: Performed By: #### D IFF #### [facility] [address] [place] [address] Dr. Tom Dotson BASOM # 0.00 103/ul Normal 0.00-0.10 [facility] Comment on above: Performed By: #### D IFF #### [facility] [address] [place] [address] Dr. Tom Dotosn BASOM % 0.0 % Critically low 0.2-2.0 [facility] Comment on above: Performed By: #### D IFF #### [facility] [address] [place] [address] Dr. Tom Dotson BLAST # Normal [facility] Comment on above: Performed By: #### D IFF #### [facility] [address] [place] [address] Dr. Tom Dotson BLAST % Normal [facility] Comment on above: Performed By: #### D IFF #### [facility] [address] [place] [address] Dr. Tom Dotson CORRECTED WBC Normal 4.0-11.0 [facility] Comment on above: Performed By: #### D IFF #### [facility] [address] [place] [address] Dr. Tom Dotson EOS # 1.22 103/ul Critically high 0.00-0.70 [facility] Comment on above: Performed By: #### D IFF #### [facility] [address] [place] [address] Dr. Tom Dotson EOS% 14.0 % Critically high 0.9-7.0 [facility] Comment on above: Performed By: #### D IFF #### [facility] [address] [place] [address] Dr. Tom Dotson LYMPHM # 1.91 103/ul Normal 1.20-3.80 [facility] Comment on above: Performed By: #### D IFF #### [facility] [address] [place] [address] Dr. Tom Dotson LYMPHM% 22.0 % Normal 20.5-60.0 [facility] Comment on above: Performed By: #### D IFF #### [facility] [address] [place] [address] Dr. Tom Dotson METAMYELOCYTE # Normal [facility] Comment on above: Performed By: #### D IFF #### [facility] [address] [place] [address] Dr. Tom Dotson METAMYELOCYTE % Normal [facility] Comment on above: Performed By: #### D IFF #### [facility] [address] [place] [address] Dr. Tom Dotson MONOM# 0.52 103/ul Normal 0.30-0.80 [facility] Comment on above: Performed By: #### D IFF #### [facility] [address] [place] [address] Dr. Tom Dotson MONOM% 6.0 % Normal 1.7-12.0 [facility] Comment on above: Performed By: #### D IFF #### [facility] [address] [place] [address] Dr. Tom Dotson MYELOCYTE # Normal [facility] Comment on above: Performed By: #### D IFF #### [facility] [address] [place] [address] Dr. Tom Dotson MYELOCYTE % Normal [facility] Comment on above: Performed By: #### D IFF #### [facility] [address] [address] [address] Tom Dotson NR Normal [facility] Comment on above: Performed By: #### D IFF #### [facility] [id number] Tom Dotson SEG # 4.96 103/ul Normal 1.40-6.50 [facility] Comment on above: Performed By: #### D IFF #### [facility] [address] [address] [address] Tom Dotson SEG % 57.0 % Normal 43.0-75.0 [facility] Comment on above: Performed By: #### D IFF #### [facility] [address] [place] [address] Dr. Tom Dotson WBC 8.7 103/ul Normal 4.0-11.0 [facility] Comment on above: Performed By: #### D IFF #### [facility] [address] [place] [address] Dr. Tom Dotson LIPID PROFILEon 03-06-2022 CHOL-HDL RATIO NORM SEE BELOW Normal [facility] Comment on above: Result Comment: 3.3 - 4.4 LOW RISK 4.4 - 7.1 AVERAGE RISK 7.1 - 11.0 MODERATE RISK >11.0 HIGH RISK Performed By: #### I NFLUAB #### [facility] [address] [place] [address] Dr. Tom Dotson Cholesterol [Mass/Vol] 135 mg/dL Normal <=200 [facility] Comment on above: Performed By: #### I NFLUAB #### [facility] [place] [facility] [address] [address] [address] Tom Dotson Cholesterol in HDL [Mass/Vol] 51 mg/dL Normal 40-60 [facility] Comment on above: Performed By: #### I NFLUAB #### [facility] [place] [facility] [address] [address] [address] Tom Dotson Cholesterol in LDL [Mass/Vol] 74.4 mg/dL Normal [facility] Comment on above: Performed By: #### I NFLUAB #### [facility] [address] [address] [address] Tom Dotson Cholesterol.total/Ch olesterol in HDL [Mass ratio] 2.6 {ratio} Normal [facility] Comment on above: Performed By: #### I NFLUAB #### [facility] [address] [address] [address] Tom Dotson HDL NORMAL > or = 60 mg/dl - LO W CARDIOVASCULAR RISK <40 mg/dl - HIGH CARDIOVASCULAR RISK Normal [facility] Comment on above: Performed By: #### I NFLUAB #### [facility] [address] [place] [address] Dr. Tom Dotson LDL CALC NORMAL SEE BELOW Normal [facility] Comment on above: Result Comment: <100 mg/dl OPTIMAL 100 - 129 mg/dl NEAR OR ABOVE OPTIMAL 130 - 159 mg/dl BORDERLINE HIGH 160 - 189 mg/dl HIGH >190 mg/dl VERY HIGH Performed By: #### I NFLUAB #### [facility] [address] [place] [address] Dr. Tom Dotson Triglyceride [Mass/Vol] 48 mg/dL Normal <=150 [facility] Comment on above: Performed By: #### I NFLUAB #### [facility] [address] [place] [address] Dr. Tom Dotson VLDL CALC 9.6 mg/dL Normal [facility] Comment on above: Performed By: #### I NFLUAB #### [facility] [address] [place] [address] Dr. Tom Dotson PROF 14(COMP METB)on 022 Albumin [Mass/Vol] 3.8 g/dL Normal 3.4-5.0 [facility] Comment on above: Performed By: #### I NFLUAB #### [facility] [address] [place] [address] Dr. Tom Dotson Albumin/Globulin [Mass ratio] 1.1 {ratio} Normal [facility] Comment on above: Performed By: #### I NFLUAB #### [facility] [address] [address] [address] Tom Dotson ALP [Catalytic activity/Vol] 62 U/L Normal 46-116 [facility] Comment on above: Performed By: #### I NFLUAB #### [facility] [address] [address] [address] Tom Dotson ALT [Catalytic activity/Vol] 25 U/L Normal 16-63 [facility] Comment on above: Performed By: #### I NFLUAB #### [facility] [place] [facility] [address] [address] [address] Tom Dotson Anion gap [Moles/Vol] 9.8 mmol/L Normal [facility] Comment on above: Performed By: #### I NFLUAB #### [facility] [address] [place] [address] Dr. Tom Dotson AST [Catalytic activity/Vol] 15 U/L Normal 15-37 [facility] Comment on above: Performed By: #### I NFLUAB #### [facility] [address] [address] [address] Tom Dotson Bilirubin [Mass/Vol] 0.9 mg/dL Normal 0.2-1.0 [facility] Comment on above: Performed By: #### I NFLUAB #### [facility] [address] [address] [address] Tom Dotson Calcium [Mass/Vol] 8.8 mg/dL Normal 8.5-10.1 [facility] Comment on above: Performed By: #### I NFLUAB #### [facility] [address] [address] [address] Tom Dotson Chloride [Moles/Vol] 102 mmol/L Normal 98-107 [facility] Comment on above: Performed By: #### I NFLUAB #### [facility] [address] [address] [address] Tom Dotson CO2 [Moles/Vol] 30.5 mmol/L Normal 21.0-32.0 [facility] Comment on above: Performed By: #### I NFLUAB #### [facility] [address] [address] [address] Tom Dotson Creatinine [Mass/Vol] 0.95 mg/dL Normal 0.70-1.30 [facility] Comment on above: Performed By: #### I NFLUAB #### [facility] [address] [address] [address] Tom Dotson EGFR-AF MACANESE >60 Normal >=60 [facility] Comment on above: Performed By: #### I NFLUAB #### [facility] [address] [place] [address] Dr. Tom Dotson EGFR-NON AF MACANESE >60 Normal >=60 [facility] Comment on above: Performed By: #### I NFLUAB #### [facility] [address] [place] [address] Dr. Tom Dotson Globulin (S) [Mass/Vol] 3.4 g/dL Normal [facility] Comment on above: Performed By: #### I NFLUAB #### [facility] [address] [place] [address] Dr. Tom Dotson Glucose [Mass/Vol] 85 mg/dL Normal 74-106 [facility] Comment on above: Performed By: #### I NFLUAB #### [facility] [address] [place] [address] Dr. Tom Dotson Potassium [Moles/Vol] 4.3 mmol/L Normal 3.5-5.1 [facility] Comment on above: Performed By: #### I NFLUAB #### [facility] [address] [place] [address] Dr. Tom Dotson Protein [Mass/Vol] 7.2 g/dL Normal 6.4-8.2 [facility] Comment on above: Performed By: #### I NFLUAB #### [facility] [address] [place] [address] Dr. Tom Dotson Sodium [Moles/Vol] 138 mmol/L Normal 136-145 [facility] Comment on above: Performed By: #### I NFLUAB #### [facility] [place] [facility] [address] [place], [place] [address] Dr. Tom Dotson Urea nitrogen [Mass/Vol] 14.0 mg/dL Normal 7.0-18.0 [facility] Comment on above: Performed By: #### I NFLUAB #### [facility] [place] [facility] [address] [place], [place] [address] Dr. Tom Dotson Urea nitrogen/Creatinine [Mass ratio] 14.7 mg/mg Normal [facility] Comment on above: Performed By: #### I NFLUAB #### [facility] [address] [address] [address] Tom Dotson TSHon 03-06-2022 TSH 1.010 uIU/mL Normal 0.358-3.740 [facility] Comment on above: Performed By: #### I NFLUAB #### [facility] [place] [facility] [address] [address] [address] Tom Dotson Hepatic Panelon 09-02-2019 Albumin [Mass/Vol] 3.2 g/dL Normal 3.2-5.5 [facility] Comment on above: Performed By: #### H EPATIC, LIPID, TSH3 wRFLX, [id number] #### [facility] [address] Albumin/Globulin [Mass ratio] 1.1 {ratio} Normal [facility] Comment on above: Performed By: #### H EPATIC, LIPID, TSH3 wRFLX, [id number] #### [facility] [address] [id number] [place] ALP [Catalytic activity/Vol] 38 U/L Normal 32-92 [facility] Comment on above: Performed By: #### H EPATIC, LIPID, TSH3 wRFLX, [id number] #### [facility] [address] [id number] [place] ALT [Catalytic activity/Vol] 14 U/L Normal 10-60 [facility] Comment on above: Performed By: #### H EPATIC, LIPID, TSH3 wRFLX, [id number] #### [facility] [address] [id number] [place] AST [Catalytic activity/Vol] 13 U/L Normal 10-42 [facility] Comment on above: Performed By: #### H EPATIC, LIPID, TSH3 wRFLX, [id number] #### [facility] [address] Bilirubin [Mass/Vol] 0.9 mg/dL Normal 0.3-1.2 [facility] Comment on above: Performed By: #### H EPATIC, LIPID, TSH3 wRFLX, [id number] #### [address] Bilirubin,Indirect 0.8 mg/dL Normal [facility] Comment on above: Performed By: #### H EPATIC, LIPID, TSH3 wRFLX, [id number] #### [address] Bilirubin.direct [Mass/Vol] 0.1 mg/dL Normal 0.0-0.4 [facility] Comment on above: Performed By: #### H EPATIC, LIPID, TSH3 wRFLX, [id number] #### [facility] [address] [place] [address] Globulin (S) [Mass/Vol] 2.9 g/dL Normal [facility] Comment on above: Performed By: #### H EPATIC, LIPID, TSH3 wRFLX, [id number] #### [facility] [address] [place] [address] Protein [Mass/Vol] 6.1 g/dL Normal 6.1-7.9 [facility] Comment on above: Performed By: #### H EPATIC, LIPID, TSH3 wRFLX, [id number] #### [facility] [address] [place] [address] Lipid Panelon 09-02-2019 Cholesterol [Mass/Vol] 158 mg/dL Normal 140-200 [facility] Comment on above: Result Comment: Chol less than 200 mg/dl low risk Chol 201-239 mg/dl borderline risk Chol 240 mg/dl and greater high risk Performed By: #### H EPATIC, LIPID, TSH3 wRFLX, [id number] #### [facility] [address] Cholesterol in HDL [Mass/Vol] 61 mg/dL Normal 29-71 [facility] Comment on above: Result Comment: HDL CHOL ATP-III CLASSIFICATION Cardiovascular Risk HDL > or equal to 60 mg/dL LOW HDL < 40 mg/dL HIGH Performed By: #### H EPATIC, LIPID, TSH3 wRFLX, [id number] #### [facility] [address] Cholesterol.total/Ch olesterol in HDL [Mass ratio] 2.6 {ratio} Normal <5.0 [facility] Comment on above: Performed By: #### H EPATIC, LIPID, TSH3 wRFLX, [id number] #### [address] LDL Cholesterol,Calculat ed 84 mg/dL Normal 0-100 [facility] Comment on above: Result Comment: LDL ATP III CLASSIFICATION LDL less than 100 mg/dL Optimal LDL 100-129 mg/dL Near or above optimal LDL 130-159 mg/dL Borderline high LDL 160-189 mg/dL High LDL greater than 189 mg/dL Very high Performed By: #### H EPATIC, LIPID, TSH3 wRFLX, [id number] #### [address] Triglyceride w/Reflex 63 mg/dL Normal 35-149 [facility] Comment on above: Result Comment: TRIG ATP III CLASSIFICATION TRIG less than 150 mg/dL Normal TRIG 150-199 mg/dL Borderline high TRIG 200-500 mg/dL High TRIG greater than 500 mg/dL Very high Standard traceable to the Center for Disease Conrtrol and Prevention (CDC) test method. Performed By: #### H EPATIC, LIPID, TSH3 wRFLX, [id number] #### [place] [id number] [facility] VLDL CHOLESTEROL 12 mg/dL Normal [facility] Comment on above: Performed By: #### H EPATIC, LIPID, TSH3 wRFLX, [id number] #### [facility] [address] [place] [id number] [facility] Thyroid Stim Hormone w/Rflxo n 09-02-2019 Thyroid Stim Hormone w/Rflx 1.92 u[iU]/mL Normal 0.45-5.33 [facility] Comment on above: Performed By: #### H EPATIC, LIPID, TSH3 wRFLX, [id number] #### [facility] [address] [place], [place] [id number] [facility] Vitamin D 25 Hydroxy Totalon 09-02-2019 Vitamin D 25 Hydroxy Total 11.9 ng/mL Low 30-100 [facility] Comment on above: Result Comment: DAE MIN D STATUS 25(OH)VITAMIN D RANGE (ng/mL) Deficient <20 Insufficient 20 to <30 Sufficient 30 to 100 Reference: Darrion MF,Zane NC, Hanna AVELAR, et al. Evaluation,treatment, and prevention of vitamin D deficiency; an Endocrine Society clinical practice guideline. JCEM. 2010; 96(7):1911-30. PERFORMED BY: [place] [id number] PATHOLOGIST WIRE STEWARD MIGUELINA FLOOD M.D. 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 Tom Dotson Payers Date Payer Category Payer Unknown [id number] [id number] [id number] 1960 Unknown [id number] [id number] [id number] 1960 Unknown [id number] [id number] [id number] 1960 Unknown [id number] 2.16.84 [id number] 1959 Medicaid [id number] 1959 Unknown [id number] Summary Purpose Family History No Family History Records FoundNo Family History Records Found Advance Directives No Advanced Directives Records FoundNo Advanced Directives Records Found Additional Source Comments (unrecognized sect ion and content) No Status Records FoundNo Status Records Found INFORMATION SOURCE (unrecogn ized section and content) DATE CREATED AUTHOR 09/04/2019 [facility] DATE CREATED AUTHOR AUTHOR'S KELSEY ATZIA 09/30/2022 [facility] FOR RECORDS PERTAINING TO PATIENTS WHO ARE OR HAVE BEEN ENROLLED IN A CHEMICAL DEPENDENCY/SUBSTANCEABUSE PROGRAM, SOME INFORMATION MAY BE OMITTED. This clinical summary was aggregated from multiple sources. Caution should be exercised in using it in the provision of clinical care. This summary normalizes information from multiple sources, and as a consequence, information in this document may materially change the coding, format and clinical context of patient data. In addition, data may be omitted in some cases. CLINICAL DECISIONS SHOULD BE BASED ON THE PRIMARY CLINICAL RECORDS. [facility] [employer] provides no warranty or guarantee of the accuracy or completeness of information in this document.
--- NOTE | 2023-10-21 12:11 | ECG_ITS ---
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
--- NOTE | 2023-10-21 12:11 | XR_ITS ---
The [address] [address] Patient Name: JUANITA KRAMER MRN: [id number] date: 1960 Sex: M Assigned Patient Location: ER Current Patient Location: ER Accession/Order Number: [id number] Exam Date: 10/21/2023 12:52 Report Date: 10/21/2023 13:06 At the request of: ZUNILDA MERCEDES Procedure: XR chest 1V EXAM: XR chest 1V HISTORY: . fever, cough . COMPARISON: 09/21/2023 TECHNIQUE: Single view of the chest FINDINGS: Heart and vascularity are unremarkable. Lungs are free of focal infiltrates. EKG leads overlie the chest. XR/XR chest 1V IMPRESSION: No acute heart or lung disease identified. Electronically authenticated by: EMBER PRINCE Date: 10/21/2023 13:06
--- NOTE | 2023-10-21 12:17 | ED_ITS ---
HPI - General Adult General Chief complaint: Shortness of Breath/Dyspnea Stated complaint: COUGHING/CONGESTION/FEVER Time Seen by Provider: 10/21/23 11:39 Source: patient Mode of arrival: walk-in Limitations: no limitations History of Present Illness HPI narrative: fever, cough and congestion started 2 nights ago. He tried to go to work yesterday but was coughing too much and felt too weak to work. He was sweaty with subjective fever. He had several episodes of vomiting yesterday. This morning he continues to cough and complains of chest congestion but no chest pain, tightness or pressure. he has exertional shortness of breath and continues to have subjective fevers and non-focal weakness. Uncertain about potential ill exposures. Related Data Home Medications Medication Instructions Recorded Confirmed albuterol sulfate 90 mcg/actuation inhalation 09/21/23 aerosol inhaler aspirin 81 mg tablet,delayed mg 09/21/23 release atorvastatin 40 mg tablet mg 09/21/23 budesonide-formoterol HFA 160 inhalation 09/21/23 mcg-4.5 mcg/actuation aerosol inhaler (Symbicort) fluoxetine 10 mg capsule mg 09/21/23 tiotropium bromide 2.5 inhalation 09/21/23 mcg/actuation mist for inhalation (Spiriva Respimat) trazodone 50 mg tablet mg 09/21/23 Previous Rx's Medication Instructions Recorded azithromycin 250 mg tablet See Rx Instructions PO .COMPLEX #6 09/21/23 (Zithromax Z-Igor) tabs prednisone 10 mg tablet See Rx Instructions .Route 09/21/23 .COMPLEX #30 tabs Allergies Allergy/AdvReac Type Severity Reaction Status Date / Time No Known Drug Allergies Allergy Verified 09/21/23 00:12 [facility] Social History Smoking status: Current every day smoker Exam Narrative Exam Narrative: Nurses notes and vital signs reviewed and patient is borderline hypoxic - 91% RA pulse ox. afebrile General: Well-appearing and in no apparent distress. Skin: Warm, dry, no pallor noted. Head: Normocephalic, atraumatic. Neck: Supple, non-tender. No cervical lymphadenopathy Eye: Pupils are equal, round and EOMI. No scleral icterus. Ears, Nose, Mouth, and Throat: Oral mucosa is moist Cardiovascular: Tachycardia. Respiratory: No accessory muscle use or respiratory distress. Lungs with diffuse expiratory wheezing and rhonchi Back: No CVA tenderness Musculoskeletal: normal ROM, no calf or popliteal tenderness, no lower extremity edema/swelling GI: Abdomen is soft, non-distended. Normal bowel sounds. No tenderness to palpation. No rebound, guarding, or rigidity noted. Neurological: A&O x4. No cranial nerve dysfunction observed. No truncal ataxia. Moves all extremities. Sensation intact. Psychiatric: Cooperative and interactive. Normal mood and affect. Constitutional Vital Signs, click to edit/add: Last Vital Signs Temp 99.1 F 10/21/23 11:40 Pulse 100 H 10/21/23 12:26 Resp 24 10/21/23 12:26 BP 96/75 10/21/23 11:40 Pulse Ox 91 L 10/21/23 11:58 O2 Del Method Room Air 10/21/23 11:58 Course Vital Signs Vital signs: Vital Signs Temperature 99.1 F 10/21/23 11:40 Pulse Rate 112 H 10/21/23 11:40 Respiratory Rate 22 10/21/23 11:40 Blood Pressure 96/75 10/21/23 11:40 Pulse Oximetry 92 L 10/21/23 11:40 Oxygen Delivery Method Room Air 10/21/23 11:40 Temperature 99.1 F 10/21/23 11:40 Pulse Rate 100 H 10/21/23 12:26 Respiratory Rate 10/21/23 12:26 Blood Pressure 96/75 10/21/23 11:40 Pulse Oximetry 91 L 10/21/23 11:58 Oxygen Delivery Method Room Air 10/21/23 11:58 Medical Decision Making MDM Narrative Medical decision making narrative: Patient was placed on bus driver/monitor and EKG obtained. Blood drawn and sent for evaluation, including lactate, procalcitonin and blood cultures per sepsis protocol. CXR obtained. Patient received IV solumedrol and duoneb treatment in the ED. He had to be placed on [place] O2 because his sat decreased below 90% on RA. He tested positive for Influenza. Normal WBC. CXR without any pneumonia or acute cardiopulmonary abnormalities identified by radiologist. He still had significant wheezing and rhonchi after ED treatment. he still requires oxygen. He was agreeable to admissionafter discussing his findings, diangosis and response to therapy in the ED. @[address] Waller to discuss admission. @[address] Waller who agreed to admit the patient, caesar marcos. Lab Data Lab results reviewed: Yes I reviewed the patient's lab results Labs: Lab Results 10/21/23 Range/Units 11:55 WBC 10.0 (4.0-11.0) 10^3/uL RBC 4.63 L (4.70-6.10) 10^6/uL Hgb 13.8 L (14.0-18.0) g/dL Hct 44.3 (42.0-54.0) % MCV 95.7 H (80.0-94.0) fL MCH 29.8 (25.9-34.0) pg MCHC 31.2 (29.9-35.2) g/dL RDW 13.5 (11.0-15.0) % Plt Count 297 (150-450) 10^3/uL MPV 9.7 (9.5-13.5) fL Seg Neuts % (Manual) 78.0 Band Neutrophils % 2.0 (0-5) % Lymphocytes % (Manual) 7.0 L (20.5-60.0) % Monocytes % (Manual) 12.0 (1.7-12.0) % Eosinophils % (Manual) 1.0 (0.9-7.0) % Basophils % (Manual) 0.0 L (0.2-2.0) % Neutrophils # (Manual) 7.80 H (1.4-6.5) 10^3/uL Band Neutrophils # 0.2 (0.0-0.3) 10^3/uL Lymphocytes # (Manual) 0.70 L (1.20-3.80) 10^3/uL Monocytes # (Manual) 1.20 H (0.30-0.80) 10^3/uL Eosinophils # (Manual) 0.10 (0.00-0.70) 10^3/uL Basophils # (Manual) 0.00 (0.00-0.10) 10^3/uL Sodium 132 L (136-145) mmol/L Potassium 3.7 (3.5-5.1) mmol/L Chloride 99 (98-107) mmol/L Carbon Dioxide 24.4 (21.0-32.0) mmol/L Anion Gap 12.3 BUN 18.0 (7.0-18.0) mg/dL Creatinine 0.98 (0.70-1.30) mg/dL Est GFR ( Amer) >60 (>=60) Est GFR (Non-Af Amer) >60 (>=60) BUN/Creatinine Ratio 18.4 Glucose 110 H (74-106) mg/dL Lactate 0.8 (0.4-2.0) mmol/L Calcium 8.2 L (8.5-10.1) mg/dL Total Bilirubin 0.9 (0.2-1.0) mg/dL AST 24 (15-37) U/L ALT 30 (16-63) U/L Alkaline Phosphatase 64 (46-116) U/L Troponin I High Sens 6.4 (4.0-76.1) pg/mL NT-Pro-B Natriuret Pep 116.0 (<=900.0) pg/mL Total Protein 7.3 (6.4-8.2) g/dL Albumin 3.4 (3.4-5.0) g/dL Globulin 3.9 g/dL Albumin/Globulin Ratio 0.9 Procalcitonin <0.05 (0.00-0.50) ng/mL Influenza Type A Ag Positive A Influenza Type B Ag Negative SARS-CoV-2 Ag (CV2AG) Negative (NEGATIVE) Imaging Data Chest x-ray: Radiologist's impression: ITS Impressions Chest X-Ray 10/21/23 12:11 IMPRESSION: No acute heart or lung disease identified. Electronically authenticated by: EMBER PRINCE Date: 10/21/2023 13:06 ECG Data Attestation: I personally reviewed and interpreted this ECG as follows: Interpretation: EKG interpretation: Emergency Department physician interpretation. Sinus tachycardia at 103bpm. Normal axis, normal intervals and no ST segment elevation or depression. Discharge Plan Discharge Chief Complaint: Shortness of Breath/Dyspnea Clinical Impression: Influenza, Acute exacerbation of chronic obstructive pulmonary disease, Hypoxia Patient Disposition: Admitted as Observation Time of Disposition Decision: 13:20
[2023-10-21] MEDS: IPRATROPIUM/ALBUTEROL SULFATE 3 ML AMPUL.NEB IH ×3 (12:25→23:13)
[2023-10-21 12:27] LABS: Hematocrit 44.3 % (42.0-54.0); Hemoglobin 13.8 g/dL (14.0-18.0); Mean Corpuscular HGB Conc 31.2 g/dL (29.9-35.2); Mean Corpuscular Hemoglobin 29.8 pg (25.9-34.0); Mean Corpuscular Volume 95.7 fL (80.0-94.0); Mean Platelet Volume 9.7 fL (9.5-13.5); Platelet Count 297 10^3/uL (150-450); Red Blood Count 4.63 10^6/uL (4.70-6.10); Red Cell Distribution Width 13.5 % (11.0-15.0)
[2023-10-21 12:29] LABS: Influenza Virus A Antigen Positive; Influenza Virus B Antigen Negative; Internal Control Within Normal Limits; SARS-CoV-2 Ag NEGATIVE (NEGATIVE)
[2023-10-21] MEDS: ONDANSETRON PF 4 MG/2 ML VIAL IV (12:38)
[2023-10-21] MEDS: 0.9 % SODIUM CHLORIDE 1,000 ML 999 ML IV (12:38)
[2023-10-21] MEDS: METHYLPREDNISOLONE SOD SUCC PF 125 MG/2 ML VIAL IVP (12:38)
[2023-10-21 12:41] LABS: Band Neutrophils Absolute 0.2 10^3/uL (0.0-0.3)
[2023-10-21 12:46] LABS: Lactate/Lactic Acid 0.8 mmol/L (0.4-2.0)
[2023-10-21 13:19] LABS: Alanine Aminotransferase 30 U/L (16-63); Albumin Globulin Ratio 0.9; Albumin Level 3.4 g/dL (3.4-5.0); Alkaline Phosphatase 64 U/L (46-116); Aspartate Amino Transferase 24 U/L (15-37); BUN Creatinine Ratio 18.4; Bilirubin Total 0.9 mg/dL (0.2-1.0); Calcium 8.2 mg/dL (8.5-10.1); Carbon Dioxide 24.4 mmol/L (21.0-32.0); Estimated GFR (African America >60 (>=60); Estimated GFR (Non-African Ame >60 (>=60); Globulin 3.9 g/dL; Glucose 110 mg/dL (74-106); Total Protein 7.3 g/dL (6.4-8.2); Troponin I High Sensitivity 6.4 pg/mL (4.0-76.1)
[2023-10-21 13:25] LABS: PROCALCITONIN <0.05 ng/mL (0.00-0.50)
[2023-10-21 13:38] LABS: Anion Gap 12.3; Chloride 99 mmol/L (98-107); Potassium 3.7 mmol/L (3.5-5.1); Sodium 132 mmol/L (136-145)
--- OUTSIDE RECORDS SUMMARY | 2023-10-21 14:03 | XMS_ITS | CCD ---
Author Name Unknown Address [address] [place] [address] Organization [facility] Care Team Providers Care Computer Tester Name Role Phone SAMSA, JAMESON Admitting Unavailable SAMSA, JAMESON Attending Unavailable AICHHOLZ, PLATE WASHER JAYDEN Referring Unavailable AICHHOLZ, PLATE WASHER JAYDEN Primary Care Unavailable SAMSA, JAMESON Consulting Unavailable AICHHOLZ, PLATE WASHER JAYDEN Admitting Unavailable AICHHOLZ, PLATE WASHER JAYDEN Attending Unavailable AICHHOLZ, PLATE WASHER JAYDEN Primary Care Unavailable AICHHOLZ, PLATE WASHER JAYDEN Consulting Unavailable SAMSA, JAMESON Admitting Unavailable SAMSA, JAMESON Attending Unavailable AICHHOLZ, PLATE WASHER JAYDEN Primary Care Unavailable WHITNEY, DR YARIEL Figueroa Consulting Unavailable SAMSA, JAMESON Consulting Unavailable AICHHOLZ, PLATE WASHER JAYDEN Primary Care Unavailable DAREN, DR MAURO [...] (Bld) [Mass/Vol] 42.0 pg/mL Normal <=900.0 [facility] Comment on above: Performed By: #### I NFLUAB #### [facility] [address] [place] [address] Dr. Tom Dotson CBC AUTO DIFFon 09-25-2022 BASO # 0.1 103/ul Normal 0.0-0.1 [facility] Comment on above: Performed By: #### C BC #### [facility] [address] [place] [address] Dr. Tom Dotson Basophils/100 WBC (Bld) 0.8 % Normal 0.2-2.0 [facility] Comment on above: Performed By: #### C BC #### [facility] [address] [place] [address] Dr. Tom Dotson EO # 0.0 103/ul Normal 0.0-0.7 [facility] Comment on above: Performed By: #### C BC #### [facility] [address] [place] [address] Dr. Tom Dotson Eosinophils/100 WBC (Bld) 0.0 % Critically low 0.9-7.0 [facility] Comment on above: Performed By: #### C BC #### [facility] [address] [place] [address] Dr. Tom Dotson Erythrocyte distribution width (RBC) [Ratio] 12.4 % Normal 11.0-15.0 [facility] Comment on above: Performed By: #### C BC #### [facility] [address] [place] [address] Dr. Tom Dotson Hematocrit (Bld) [Volume fraction] 43.6 % Normal 42.0-54.0 [facility] Comment on above: Performed By: #### C BC #### [facility] [address] [place] [address] Dr. Tom Dotson Hemoglobin (Bld) [Mass/Vol] 14.3 g/dL Normal 14.0-18.0 [facility] Comment on above: Performed By: #### C BC #### [facility] [address] [place] [address] Dr. Tom Dotson IG # 0.02 10e3/ul Normal 0.00-0.03 [facility] Comment on above: Performed By: #### C BC #### [facility] [address] [place] [address] Dr. Tom Dotson IG % 0.3 % Normal 0.0-0.5 [facility] Comment on above: Performed By: #### C BC #### [facility] [address] [place] [address] Dr. Tom Dotson LYMPH # 1.4 103/ul Normal 1.2-3.8 [facility] Comment on above: Performed By: #### C BC #### [facility] [address] [place] [address] Dr. Tom Dotson Lymphocytes/100 WBC (Bld) 17.3 % Critically low 20.5-60.0 [facility] Comment on above: Performed By: #### C BC #### [facility] [address] [place] [address] Dr. Tom Dotson MANUAL DIFF REQ NO Normal [facility] Comment on above: Performed By: #### C BC #### [facility] [address] [place] [address] Dr. Tom Dotson MCH (RBC) [Entitic mass] 29.8 pg Normal 25.9-34.0 [facility] Comment on above: Performed By: #### C BC #### [facility] [address] [place] [address] Dr. Tom Dotson MCHC (RBC) [Mass/Vol] 32.8 g/dL Normal 29.9-35.2 [facility] Comment on above: Performed By: #### C BC #### [facility] [address] [place] [address] Dr. Tom Dotson MCV (RBC) [Entitic vol] 90.8 fL Normal 80.0-94.0 [facility] Comment on above: Performed By: #### C BC #### [facility] [address] [place] [address] Dr. Tom Dotson MONO # 0.7 103/ul Normal 0.3-0.8 [facility] Comment on above: Performed By: #### C BC #### [facility] [address] [place] [address] Dr. Tom Dotson Monocytes/100 WBC (Bld) 9.4 % Normal 1.7-12.0 [facility] Comment on above: Performed By: #### C BC #### [facility] [address] [place] [address] Dr. Tom Dotson NEUT # 5.7 103/ul Normal 1.4-6.5 [facility] Comment on above: Performed By: #### C BC #### [facility] [address] [place] [address] Dr. Tom Dotson Neutrophils/100 WBC (Bld) 72.2 % Normal 43.0-75.0 [facility] Comment on above: Performed By: #### C BC #### [facility] [address] [place] [address] Dr. Tom Dotson Platelet mean volume (Bld) [Entitic vol] 9.6 fL Normal 9.5-13.5 [facility] Comment on above: Performed By: #### C BC #### [facility] [address] [place] [address] Dr. Tom Dotson PLT 331 103/ul Normal 150-450 [facility] Comment on above: Performed By: #### C BC #### [facility] [address] [place] [address] Dr. Tom Dotson RBC 4.80 106/ul Normal 4.70-6.10 [facility] Comment on above: Performed By: #### C BC #### [facility] [address] [place] [address] Dr. Tom Dotson WBC 7.8 103/ul Normal 4.0-11.0 [facility] Comment on above: Performed By: #### C BC #### [facility] [address] [place] [address] Dr. Tom Dotson CULTURE BLOODon 09-25-2022 Microscopic examination of blood, culture Culture Observations: NO GROWTH AT 5 DAYS. Normal [facility] Comment on above: Performed By: #### I NFLUAB #### [facility] [address] [place] [address] Dr. Tom Dotson Microscopic examination of blood, culture Culture Observations: NO GROWTH AT 5 DAYS. Normal [facility] Comment on above: Performed By: #### I NFLUAB #### [facility] [address] [place] [address] Dr. Tom Dotson Covid-19 PCR (CVDTB)on SARS-CoV-2 (COVID-19) RNA OLGA+probe Ql (Unsp spec) Not detected Normal NOT DETECTED [facility] Comment on above: Result Comment: When diagnostic [...] for this test is supported by the Communications Equipment Installer of Health and Human Service's declaration that [...] used). Performed By: #### C VDTBH #### [facility] [address] [place] [address] Dr. Tom Dotson INFLUENZA A AND B AGon 09-25 INFLUANEGH SEE BELOW Normal [facility] Comment on above: Result Comment: Nega tive for Flu A protein angiten. Infection due to Flu A cannot be ruled out. Flu A angiten in the sample may be below the detection limit of the test. Performed By: #### I NFLUAB #### [facility] [address] [place] [address] Dr. Tom Dotson INFLUBNEG SEE BELOW Normal [facility] Comment on above: Result Comment: Nega tive for Flu B protein antigen. Infection due to Flu B cannot be ruled out. Flu B antigen in the sample may be below the detection limit of the test. Performed By: #### I NFLUAB #### [facility] [address] [place] [address] Dr. Tom Dotson INFLUENZA A AG Negative Normal NEGATIVE SEE COMMENT [facility] Comment on above: Performed By: #### I NFLUAB #### [facility] [address] [place] [address] Dr. Tom Dotson INFLUENZA B AG Negative Normal NEGATIVE SEE COMMENT [facility] Comment on above: Performed By: #### I NFLUAB #### [facility] [address] [place] [address] Dr. Tom Dotson LACTATE/LACTIC ACIDon 2022 Lactate [Moles/Vol] 0.7 mmol/L Normal 0.4-1.9 [facility] Comment on above: Performed By: #### L ACT #### [facility] [address] [place] [address] Dr. Tom Dotson PROF CHEM 8 (BAS METB)on Anion gap [Moles/Vol] 9.3 mmol/L Normal [facility] Comment on above: Performed By: #### H STROPN, BMP, BNP #### [facility] [address] [place] [address] Dr. Tom Dotson Calcium [Mass/Vol] 8.8 mg/dL Normal 8.5-10.1 [facility] Comment on above: Performed By: #### H STROPN, BMP, BNP #### [facility] [address] [place] [address] Dr. Tom Dotson Chloride [Moles/Vol] 103 mmol/L Normal 98-107 [facility] Comment on above: Performed By: #### H STROPN, BMP, BNP #### [facility] [address] [place] [address] Dr. Tom Dotson CO2 [Moles/Vol] 31.1 mmol/L Normal 21.0-32.0 [facility] Comment on above: Performed By: #### H STROPN, BMP, BNP #### [facility] [address] [place] [address] Dr. Tom Dotson Creatinine [Mass/Vol] 0.77 mg/dL Normal 0.70-1.30 [facility] Comment on above: Performed By: #### H STROPN, BMP, BNP #### [facility] [address] [place] [address] Dr. Tom Dotson EGFR-AF NAMIBIAN >60 Normal >=60 [facility] Comment on above: Performed By: #### H STROPN, BMP, BNP #### [facility] [address] [place] [address] Dr. Tom Dotson EGFR-NON AF NAMIBIAN >60 Normal >=60 [facility] Comment on above: Performed By: #### H STROPN, BMP, BNP #### [facility] [address] [address] [address] Tom Dotson Glucose [Mass/Vol] 98 mg/dL Normal 74-106 [facility] Comment on above: Performed By: #### H STROPN, BMP, BNP #### [facility] [address] [place] [address] Dr. Tom Dotson Potassium [Moles/Vol] 4.4 mmol/L Normal 3.5-5.1 [facility] Comment on above: Performed By: #### H STROPN, BMP, BNP #### [facility] [address] [place] [address] Dr. Tom Dotsno Sodium [Moles/Vol] 139 mmol/L Normal 136-145 [facility] Comment on above: Performed By: #### H STROPN, BMP, BNP #### [facility] [address] [address] [address] Tom Dotson Urea nitrogen [Mass/Vol] 13.0 mg/dL Normal 7.0-18.0 [facility] Comment on above: Performed By: #### H STROPN, BMP, BNP #### [facility] [address] [address] [address] Tom Dotson Urea nitrogen/Creatinine [Mass ratio] 16.9 mg/mg Normal [facility] Comment on above: Performed By: #### H STROPN, BMP, BNP #### [facility] [address] [address] [address] Tom Dotson TROPONIN, HIGH SENSITIVITYon 09-25-2022 HSTROP 7.4 pg/mL Normal 4.0-76.1 [facility] Comment on above: Result Comment: CUT- OFF POINTS HAVE BEEN ESTABLISHED BASED ON THE FOURTH UNIVERSAL DEFINITIONS OF MYOCARDIAL INFARCTION. THE UPPER REFERENCE LIMIT (URL) OF TROPONIN, DEFINED THE 99TH PERCENTILE OF cTnI DISTRIBUTION IN A REFERENCE POPULATION, HAS BEEN CONFIRMED THE DECISION THRESHOLD FOR MD DIAGNOSIS. Performed By: #### I NFLUAB #### [facility] [address] [address] [address] Tom Dotson XR CHEST 1 Von [...] YARIEL OLSON Date: 2022-09-25 10:55 Normal [facility] ASPERGILLUS AB, QUANTITATIVE DIDon 04-20-2022 Aspergillus flavus Negative Normal Neg:<1:1 [facility] Comment on above: Performed By: #### A SPDID #### [facility] [address] [address] [address] Tom Dotson Aspergillus fumigatus Negative Normal Neg:<1:1 [facility] Comment on above: Performed By: #### A SPDID #### [facility] [address] [address] [address] Tom Dotson Aspergillus niger Negative Normal Neg:<1:1 [facility] Comment on above: Performed By: #### A SPDID #### [facility] [address] [address] [address] Tom Dotson ANTI NEUTROPHIL CYTOPLASMIC AB (ANCA) PRon 04-19-2022 Anti-MPO Antibodies <0.2 Normal 0.0-0.9 [facility] Comment on above: Result Comment: Perf ormed at: BN Performed By: #### C BC #### [facility] [address] [place] [address] Dr. oTm Dotson Anti-PR3 Antibodies <0.2 Normal 0.0-0.9 [facility] Comment on above: Result Comment: Perf ormed at: BN Performed By: #### C BC #### [facility] [address] [place] [address] Dr. Tom Dotson Atypical pANCA <1:20 Normal Neg:<1:20 [facility] Comment on above: Result Comment: The atypical pANCA pattern has been observed in a significant percentage of patients with ulcerative colitis, primary sclerosing cholangitis and autoimmune hepatitis. Performed at: CB Performed By: #### C BC #### [facility] [address] [place] [address] Dr. Tom Dotson Cytoplasmic (C-ANCA) <1:20 Normal Neg:<1:20 [facility] Comment on above: Result Comment: Perf ormed at: CB Performed By: #### C BC #### [facility] [address] [place] [address] Dr. Tom Dotson Perinuclear (P-ANCA) <1:20 Normal Neg:<1:20 [facility] Comment on above: Result Comment: The presence of positive fluorescence exhibiting P-ANCA or C-ANCA patterns alone is not specific for the diagnosis of Nevin's Granulomatosis (WG) or microscopic polyangiitis. Decisions about treatment should not be based solely on ANCA IFA results. The International ANCA Group Consensus recommends follow up testing of positive sera with both NV-3 and MPO-ANCA enzyme immunoassays. As many as 5% serum samples are positive only by EIA. Ref. AM J Clin Pathol 1999;111:507-513. Performed at: CB Performed By: #### C BC #### [facility] [address] [place] [address] Dr. Tom Dotson IMMUNOGLOBULIN E, TOTALon Immunoglobulin E, Total 68 IU/mL Normal 6-495 [facility] Comment on above: Performed By: #### I GETOT #### [facility] [address] [place] [address] Dr. Tom Dotson ANGIOTENSION-CONVERTING ENZY ME (ELINOR)on 04-17-2022 ELINOR 28 U/L Normal 14-82 [facility] Comment on above: Performed By: #### A NGIOC #### [facility] [address] [place] [address] Dr. Tom Dotson CBC AUTO DIFFon 04-16-2022 BASO # 0.1 103/ul Normal 0.0-0.1 [facility] Comment on above: Performed By: #### I NFLUAB #### [facility] [address] [place] [address] Dr. Tom Dotson Basophils/100 WBC (Bld) 1.0 % Normal 0.2-2.0 [facility] Comment on above: Performed By: #### I NFLUAB #### [facility] [address] [place] [address] Dr. Tom Dotson EO # 0.0 103/ul Normal 0.0-0.7 [facility] Comment on above: Performed By: #### I NFLUAB #### [facility] [address] [place] [address] Dr. Tom Dotson Eosinophils/100 WBC (Bld) 0.1 % Critically low 0.9-7.0 [facility] Comment on above: Performed By: #### I NFLUAB #### [facility] [address] [place] [address] Dr. Tom Dotson Erythrocyte distribution width (RBC) [Ratio] 12.9 % Normal 11.0-15.0 [facility] Comment on above: Performed By: #### I NFLUAB #### [facility] [address] [place] [address] Dr. Tom Dotson Hematocrit (Bld) [Volume fraction] 44.8 % Normal 42.0-54.0 [facility] Comment on above: Performed By: #### I NFLUAB #### [facility] [address] [place] [address] Dr. Tom Dotson Hemoglobin (Bld) [Mass/Vol] 15.0 g/dL Normal 14.0-18.0 [facility] Comment on above: Performed By: #### I NFLUAB #### [facility] [address] [place] [address] Dr. Tom Dotson IG # 0.02 10e3/ul Normal 0.00-0.03 [facility] Comment on above: Performed By: #### I NFLUAB #### [facility] [address] [place] [address] Dr. Tom Doston IG % 0.2 % Normal 0.0-0.5 [facility] Comment on above: Performed By: #### I NFLUAB #### [facility] [address] [place] [address] Dr. Tom Dotson LYMPH # 1.4 103/ul Normal 1.2-3.8 [facility] Comment on above: Performed By: #### I NFLUAB #### [facility] [address] [place] [address] Dr. Tom Dotson Lymphocytes/100 WBC (Bld) 17.6 % Critically low 20.5-60.0 [facility] Comment on above: Performed By: #### I NFLUAB #### [facility] [address] [place] [address] Dr. Tom Dotson MANUAL DIFF REQ NO Normal [facility] Comment on above: Performed By: #### I NFLUAB #### [facility] [address] [place] [address] Dr. Tom Dotson MCH (RBC) [Entitic mass] 30.9 pg Normal 25.9-34.0 [facility] Comment on above: Performed By: #### I NFLUAB #### [facility] [address] [place] [address] Dr. Tom Dotson MCHC (RBC) [Mass/Vol] 33.5 g/dL Normal 29.9-35.2 [facility] Comment on above: Performed By: #### I NFLUAB #### [facility] [address] [place] [address] Dr. Tom Dotson MCV (RBC) [Entitic vol] 92.2 fL Normal 80.0-94.0 [facility] Comment on above: Performed By: #### I NFLUAB #### [facility] [address] [place] [address] Dr. Tom Dotson MONO # 0.8 103/ul Normal 0.3-0.8 [facility] Comment on above: Performed By: #### I NFLUAB #### [facility] [address] [place] [address] Dr. Tom Dotson Monocytes/100 WBC (Bld) 9.6 % Normal 1.7-12.0 [facility] Comment on above: Performed By: #### I NFLUAB #### [facility] [address] [place] [address] Dr. Tom Dotson NEUT # 5.9 103/ul Normal 1.4-6.5 [facility] Comment on above: Performed By: #### I NFLUAB #### [facility] [address] [place] [address] Dr. Tom Dotson Neutrophils/100 WBC (Bld) 71.5 % Normal 43.0-75.0 [facility] Comment on above: Performed By: #### I NFLUAB #### [facility] [address] [place] [address] Dr. Tom Dotson Platelet mean volume (Bld) [Entitic vol] 9.9 fL Normal 9.5-13.5 [facility] Comment on above: Performed By: #### I NFLUAB #### [facility] [id number] Tom Dotson PLT 325 103/ul Normal 150-450 [facility] Comment on above: Performed By: #### I NFLUAB #### [facility] [id number] Tom Dotson RBC 4.86 106/ul Normal 4.70-6.10 [facility] Comment on above: Performed By: #### I NFLUAB #### [facility] [id number] Tom Dotson WBC 8.2 103/ul Normal 4.0-11.0 [facility] Comment on above: Performed By: #### I NFLUAB #### [facility] [address] [place], [place] [id number] Dr. Tom Dotson CT LUNG CANCER SCREENINGon [...] YARIEL OLSON Date: 2022-04-10 22:57 Normal [facility] CBC AUTO DIFFon 03-06-2022 BASO # 0.1 103/ul Normal 0.0-0.1 [facility] Comment on above: Performed By: #### C BC #### [facility] [address] [address] [address] Tom Dotson Basophils/100 WBC (Bld) 1.0 % Normal 0.2-2.0 [facility] Comment on above: Performed By: #### C BC #### [facility] [address] [address] [address] Tom Dotson EO # 2.5 103/ul Critically high 0.0-0.7 [facility] Comment on above: Performed By: #### C BC #### [facility] [address] [address] [address] Tom Dotson Eosinophils/100 WBC (Bld) 29.1 % Critically high 0.9-7.0 [facility] Comment on above: Performed By: #### C BC #### [facility] [address] [address] [address] Tom Dotson Erythrocyte distribution width (RBC) [Ratio] 12.8 % Normal 11.0-15.0 [facility] Comment on above: Performed By: #### C BC #### [facility] [address] [address] [address] Tom Dotson Hematocrit (Bld) [Volume fraction] 46.6 % Normal 42.0-54.0 [facility] Comment on above: Performed By: #### C BC #### [facility] [address] [address] [address] Tom Dotson Hemoglobin (Bld) [Mass/Vol] 14.4 g/dL Normal 14.0-18.0 [facility] Comment on above: Performed By: #### C BC #### [facility] [address] [address] [address] Tom Dotson IG # 0.04 10e3/ul Critically high 0.00-0.03 [facility] Comment on above: Performed By: #### C BC #### [facility] [address] [address] [address] Tom Dotson IG % 0.5 % Normal 0.0-0.5 [facility] Comment on above: Performed By: #### C BC #### [facility] [address] [place] [address] Dr. Tom Dotson LYMPH # 1.3 103/ul Normal 1.2-3.8 [facility] Comment on above: Performed By: #### C BC #### [facility] [address] [place] [address] Dr. Tom Dotson Lymphocytes/100 WBC (Bld) 15.1 % Critically low 20.5-60.0 [facility] Comment on above: Performed By: #### C BC #### [facility] [address] [place] [address] Dr. Tom Dotson MANUAL DIFF REQ NO Normal [facility] Comment on above: Performed By: #### C BC #### [facility] [address] [place] [address] Dr. Tom Dotson MCH (RBC) [Entitic mass] 29.5 pg Normal 25.9-34.0 [facility] Comment on above: Performed By: #### C BC #### [facility] [address] [place] [address] Dr. Tom Dotson MCHC (RBC) [Mass/Vol] 30.9 g/dL Normal 29.9-35.2 [facility] Comment on above: Performed By: #### C BC #### [facility] [address] [place] [address] Dr. Tom Dotson MCV (RBC) [Entitic vol] 95.5 fL Critically high 80.0-94.0 [facility] Comment on above: Performed By: #### C BC #### [facility] [address] [place] [address] Dr. Tom Dotson MONO # 0.8 103/ul Normal 0.3-0.8 [facility] Comment on above: Performed By: #### C BC #### [facility] [address] [place] [address] Dr. Tom Dotson Monocytes/100 WBC (Bld) 9.5 % Normal 1.7-12.0 [facility] Comment on above: Performed By: #### C BC #### [facility] [address] [place] [address] Dr. Tom Dotson NEUT # 3.9 103/ul Normal 1.4-6.5 [facility] Comment on above: Performed By: #### C BC #### [facility] [address] [place] [address] Dr. Tom Dotson Neutrophils/100 WBC (Bld) 44.8 % Normal 43.0-75.0 [facility] Comment on above: Performed By: #### C BC #### [facility] [address] [place] [address] Dr. Tom Dotson Platelet mean volume (Bld) [Entitic vol] 10.2 fL Normal 9.5-13.5 [facility] Comment on above: Performed By: #### C BC #### [facility] [address] [place] [address] Dr. Tom Dotson PLT 328 103/ul Normal 150-450 [facility] Comment on above: Performed By: #### C BC #### [facility] [address] [place] [address] Dr. Tom Dotson RBC 4.88 106/ul Normal 4.70-6.10 [facility] Comment on above: Performed By: #### C BC #### [facility] [address] [place] [address] Dr. Tom Dotson WBC 8.7 103/ul Normal 4.0-11.0 [facility] Comment on above: Performed By: #### C BC #### [facility] [address] [place] [address] Dr. Tom Dotson DIFFERENTIAL MANUALon 2021 ATYPICAL LYMPH # 0.09 103/ul Normal [facility] Comment on above: Performed By: #### D IFF #### [facility] [address] [place] [address] Dr. Tom Dotson ATYPICAL LYMPH % 1 % Normal [facility] Comment on above: Performed By: #### D IFF #### [facility] [address] [place] [address] Dr. Tom Dotson BAND # 0.0 103/ul Normal 0.0-0.3 [facility] Comment on above: Performed By: #### D IFF #### [facility] [address] [place] [address] Dr. Tom Dotson BAND % 0 % Normal 0-5 [facility] Comment on above: Performed By: #### D IFF #### [facility] [address] [place] [address] Dr. Tom Dotson BASOM # 0.00 103/ul Normal 0.00-0.10 [facility] Comment on above: Performed By: #### D IFF #### [facility] [address] [place] [address] Dr. Tom Dotson BASOM % 0.0 % Critically low 0.2-2.0 [facility] Comment on above: Performed By: #### D IFF #### [facility] [address] [place] [address] Dr. Tom Dotson BLAST # Normal [facility] Comment on above: Performed By: #### D IFF #### [facility] [address] [place] [address] Dr. Tom Dotson BLAST % Normal [facility] Comment on above: Performed By: #### D IFF #### [facility] [address] [place] [address] Dr. Tom Dotson CORRECTED WBC Normal 4.0-11.0 [facility] Comment on above: Performed By: #### D IFF #### [facility] [address] [place] [address] Dr. Tom Dotson EOS # 1.22 103/ul Critically high 0.00-0.70 [facility] Comment on above: Performed By: #### D IFF #### [facility] [address] [place] [address] Dr. Tom Dotson EOS% 14.0 % Critically high 0.9-7.0 [facility] Comment on above: Performed By: #### D IFF #### [facility] [address] [place] [address] Dr. Tom Dotson LYMPHM # 1.91 103/ul Normal 1.20-3.80 [facility] Comment on above: Performed By: #### D IFF #### [facility] [address] [place] [address] Dr. Tom Dotson LYMPHM% 22.0 % Normal 20.5-60.0 [facility] Comment on above: Performed By: #### D IFF #### [facility] [address] [place] [address] Dr. Tom Dotson METAMYELOCYTE # Normal [facility] Comment on above: Performed By: #### D IFF #### [facility] [address] [place] [address] Dr. Tom Dotson METAMYELOCYTE % Normal [facility] Comment on above: Performed By: #### D IFF #### [facility] [address] [place] [address] Dr. Tom Dotson MONOM# 0.52 103/ul Normal 0.30-0.80 [facility] Comment on above: Performed By: #### D IFF #### [facility] [address] [place] [address] Dr. Tom Dotson MONOM% 6.0 % Normal 1.7-12.0 [facility] Comment on above: Performed By: #### D IFF #### [facility] [address] [place] [address] Dr. Tom Dotson MYELOCYTE # Normal [facility] Comment on above: Performed By: #### D IFF #### [facility] [address] [place] [address] Dr. Tom Dotson MYELOCYTE % Normal [facility] Comment on above: Performed By: #### D IFF #### [facility] [address] [address] [address] Tom Dotson NR Normal [facility] Comment on above: Performed By: #### D IFF #### [facility] [id number] Tom Dotson SEG # 4.96 103/ul Normal 1.40-6.50 [facility] Comment on above: Performed By: #### D IFF #### [facility] [address] [address] [address] Tom Dotson SEG % 57.0 % Normal 43.0-75.0 [facility] Comment on above: Performed By: #### D IFF #### [facility] [address] [place] [address] Dr. Tom Dotson WBC 8.7 103/ul Normal 4.0-11.0 [facility] Comment on above: Performed By: #### D IFF #### [facility] [address] [place] [address] Dr. Tom Dotson LIPID PROFILEon 03-06-2022 CHOL-HDL RATIO NORM SEE BELOW Normal [facility] Comment on above: Result Comment: 3.3 - 4.4 LOW RISK 4.4 - 7.1 AVERAGE RISK 7.1 - 11.0 MODERATE RISK >11.0 HIGH RISK Performed By: #### I NFLUAB #### [facility] [address] [place] [address] Dr. Tom Dotson Cholesterol [Mass/Vol] 135 mg/dL Normal <=200 [facility] Comment on above: Performed By: #### I NFLUAB #### [facility] [address] [address] [address] Tom Dotson Cholesterol in HDL [Mass/Vol] 51 mg/dL Normal 40-60 [facility] Comment on above: Performed By: #### I NFLUAB #### [facility] [address] [address] [address] Tom Dotson Cholesterol in LDL [Mass/Vol] 74.4 mg/dL Normal [facility] Comment on above: Performed By: #### I NFLUAB #### [facility] [address] [address] [address] Tom Dotson Cholesterol.total/Ch olesterol in HDL [Mass ratio] 2.6 {ratio} Normal [facility] Comment on above: Performed By: #### I NFLUAB #### [facility] [address] [address] [address] Tom Dotson HDL NORMAL > or = 60 mg/dl - LO W CARDIOVASCULAR RISK <40 mg/dl - HIGH CARDIOVASCULAR RISK Normal [facility] Comment on above: Performed By: #### I NFLUAB #### [facility] [address] [place] [address] Dr. Tom Dotson LDL CALC NORMAL SEE BELOW Normal [facility] Comment on above: Result Comment: <100 mg/dl OPTIMAL 100 - 129 mg/dl NEAR OR ABOVE OPTIMAL 130 - 159 mg/dl BORDERLINE HIGH 160 - 189 mg/dl HIGH >190 mg/dl VERY HIGH Performed By: #### I NFLUAB #### [facility] [address] [place] [address] Dr. oTm Dotson Triglyceride [Mass/Vol] 48 mg/dL Normal <=150 [facility] Comment on above: Performed By: #### I NFLUAB #### [facility] [address] [place] [address] Dr. Tom Dotson VLDL CALC 9.6 mg/dL Normal [facility] Comment on above: Performed By: #### I NFLUAB #### [facility] [address] [place] [address] Dr. Tom Dotson PROF 14(COMP METB)on 022 Albumin [Mass/Vol] 3.8 g/dL Normal 3.4-5.0 [facility] Comment on above: Performed By: #### I NFLUAB #### [facility] [address] [place] [address] Dr. Tom Dotson Albumin/Globulin [Mass ratio] 1.1 {ratio} Normal [facility] Comment on above: Performed By: #### I NFLUAB #### [facility] [address] [address] [address] Tom Dotson ALP [Catalytic activity/Vol] 62 U/L Normal 46-116 [facility] Comment on above: Performed By: #### I NFLUAB #### [facility] [address] [address] [address] Tom Dotson ALT [Catalytic activity/Vol] 25 U/L Normal 16-63 [facility] Comment on above: Performed By: #### I NFLUAB #### [facility] [address] [address] [address] Tom Dotson Anion gap [Moles/Vol] 9.8 mmol/L Normal [facility] Comment on above: Performed By: #### I NFLUAB #### [facility] [address] [place] [address] Dr. Tom Dotson AST [Catalytic activity/Vol] 15 U/L Normal 15-37 [facility] Comment on above: Performed By: #### I NFLUAB #### [facility] [address] [address] [address] Tom Dotson Bilirubin [Mass/Vol] 0.9 mg/dL Normal 0.2-1.0 [facility] Comment on above: Performed By: #### I NFLUAB #### [facility] [address] [address] [address] Tom Dotson Calcium [Mass/Vol] 8.8 mg/dL Normal 8.5-10.1 [facility] Comment on above: Performed By: #### I NFLUAB #### [facility] [address] [address] [address] Tom Dotson Chloride [Moles/Vol] 102 mmol/L Normal 98-107 [facility] Comment on above: Performed By: #### I NFLUAB #### [facility] [address] [address] [address] Tom Dotson CO2 [Moles/Vol] 30.5 mmol/L Normal 21.0-32.0 [facility] Comment on above: Performed By: #### I NFLUAB #### [facility] [address] [address] [address] Tom Dotson Creatinine [Mass/Vol] 0.95 mg/dL Normal 0.70-1.30 [facility] Comment on above: Performed By: #### I NFLUAB #### [facility] [address] [address] [address] Tom Dotson EGFR-AF NAMIBIAN >60 Normal >=60 [facility] Comment on above: Performed By: #### I NFLUAB #### [facility] [address] [place] [address] Dr. Tom Dotson EGFR-NON AF NAMIBIAN >60 Normal >=60 [facility] Comment on above: Performed By: #### I NFLUAB #### [facility] [address] [place] [address] Dr. Tom Dotson Globulin (S) [Mass/Vol] 3.4 g/dL Normal [facility] Comment on above: Performed By: #### I NFLUAB #### [facility] [address] [place] [address] Dr. Tom Dotson Glucose [Mass/Vol] 85 mg/dL Normal 74-106 [facility] Comment on above: Performed By: #### I NFLUAB #### [facility] [address] [place] [address] Dr. Tom Dotson Potassium [Moles/Vol] 4.3 mmol/L Normal 3.5-5.1 [facility] Comment on above: Performed By: #### I NFLUAB #### [facility] [address] [place] [address] Dr. Tom Dotson Protein [Mass/Vol] 7.2 g/dL Normal 6.4-8.2 [facility] Comment on above: Performed By: #### I NFLUAB #### [facility] [address] [place] [address] Dr. Tom Dotson Sodium [Moles/Vol] 138 mmol/L Normal 136-145 [facility] Comment on above: Performed By: #### I NFLUAB #### [facility] [address] [place], [place] [address] Dr. Tom Dotson Urea nitrogen [Mass/Vol] 14.0 mg/dL Normal 7.0-18.0 [facility] Comment on above: Performed By: #### I NFLUAB #### [facility] [address] [place], [place] [address] Dr. Tom Dotson Urea nitrogen/Creatinine [Mass ratio] 14.7 mg/mg Normal [facility] Comment on above: Performed By: #### I NFLUAB #### [facility] [address] [address] [address] Tom Dotson TSHon 03-06-2022 TSH 1.010 uIU/mL Normal 0.358-3.740 [facility] Comment on above: Performed By: #### I NFLUAB #### [facility] [address] [address] [address] Tom Doston Hepatic Panelon 09-02-2019 Albumin [Mass/Vol] 3.2 g/dL Normal 3.2-5.5 [facility] Comment on above: Performed By: #### H EPATIC, LIPID, TSH3 wRFLX, [id number] #### [facility] [address] Albumin/Globulin [Mass ratio] 1.1 {ratio} Normal [facility] Comment on above: Performed By: #### H EPATIC, LIPID, TSH3 wRFLX, [id number] #### [facility] [address] [id number] [place] ALP [Catalytic activity/Vol] 38 U/L Normal 32-92 [facility] Comment on above: Performed By: #### H EPATIC, LIPID, TSH3 wRFLX, [id number] #### [facility] [address] [id number] [place] ALT [Catalytic activity/Vol] 14 U/L Normal 10-60 [facility] Comment on above: Performed By: #### H EPATIC, LIPID, TSH3 wRFLX, [id number] #### [facility] [address] [id number] [place] AST [Catalytic activity/Vol] 13 U/L Normal 10-42 [facility] Comment on above: Performed By: #### H EPATIC, LIPID, TSH3 wRFLX, [id number] #### [facility] [address] Bilirubin [Mass/Vol] 0.9 mg/dL Normal 0.3-1.2 [facility] Comment on above: Performed By: #### H EPATIC, LIPID, TSH3 wRFLX, [id number] #### [address] Bilirubin,Indirect 0.8 mg/dL Normal [facility] Comment on above: Performed By: #### H EPATIC, LIPID, TSH3 wRFLX, [id number] #### [address] Bilirubin.direct [Mass/Vol] 0.1 mg/dL Normal 0.0-0.4 [facility] Comment on above: Performed By: #### H EPATIC, LIPID, TSH3 wRFLX, [id number] #### [facility] [address] [place] [address] Globulin (S) [Mass/Vol] 2.9 g/dL Normal [facility] Comment on above: Performed By: #### H EPATIC, LIPID, TSH3 wRFLX, [id number] #### [facility] [address] [place] [address] Protein [Mass/Vol] 6.1 g/dL Normal 6.1-7.9 [facility] Comment on above: Performed By: #### H EPATIC, LIPID, TSH3 wRFLX, [id number] #### [facility] [address] [place] [address] Lipid Panelon 09-02-2019 Cholesterol [Mass/Vol] 158 mg/dL Normal 140-200 [facility] Comment on above: Result Comment: Chol less than 200 mg/dl low risk Chol 201-239 mg/dl borderline risk Chol 240 mg/dl and greater high risk Performed By: #### H EPATIC, LIPID, TSH3 wRFLX, [id number] #### [facility] [address] Cholesterol in HDL [Mass/Vol] 61 mg/dL Normal 29-71 [facility] Comment on above: Result Comment: HDL CHOL ATP-III CLASSIFICATION Cardiovascular Risk HDL > or equal to 60 mg/dL LOW HDL < 40 mg/dL HIGH Performed By: #### H EPATIC, LIPID, TSH3 wRFLX, [id number] #### [facility] [address] Cholesterol.total/Ch olesterol in HDL [Mass ratio] 2.6 {ratio} Normal <5.0 [facility] Comment on above: Performed By: #### H EPATIC, LIPID, TSH3 wRFLX, [id number] #### [address] LDL Cholesterol,Calculat ed 84 mg/dL Normal 0-100 [facility] Comment on above: Result Comment: LDL ATP III CLASSIFICATION LDL less than 100 mg/dL Optimal LDL 100-129 mg/dL Near or above optimal LDL 130-159 mg/dL Borderline high LDL 160-189 mg/dL High LDL greater than 189 mg/dL Very high Performed By: #### H EPATIC, LIPID, TSH3 wRFLX, [id number] #### [address] Triglyceride w/Reflex 63 mg/dL Normal 35-149 [facility] Comment on above: Result Comment: TRIG ATP III CLASSIFICATION TRIG less than 150 mg/dL Normal TRIG 150-199 mg/dL Borderline high TRIG 200-500 mg/dL High TRIG greater than 500 mg/dL Very high Standard traceable to the Center for Disease Conrtrol and Prevention (CDC) test method. Performed By: #### H EPATIC, LIPID, TSH3 wRFLX, [id number] #### [place] [id number] [facility] VLDL CHOLESTEROL 12 mg/dL Normal [facility] Comment on above: Performed By: #### H EPATIC, LIPID, TSH3 wRFLX, [id number] #### [facility] [address] [id number] [facility] Thyroid Stim Hormone w/Rflxo n 09-02-2019 Thyroid Stim Hormone w/Rflx 1.92 u[iU]/mL Normal 0.45-5.33 [facility] Comment on above: Performed By: #### H EPATIC, LIPID, TSH3 wRFLX, [id number] #### [facility] [address] [place], [place] [id number] [facility] Vitamin D 25 Hydroxy Totalon 09-02-2019 Vitamin D 25 Hydroxy Total 11.9 ng/mL Low 30-100 [facility] Comment on above: Result Comment: DAE MIN D STATUS 25(OH)VITAMIN D RANGE (ng/mL) Deficient <20 Insufficient 20 to <30 Sufficient 30 to 100 Reference: Darrion MF,Zane NC, Hanna AVELAR, et al. Evaluation,treatment, and prevention of vitamin D deficiency; an Endocrine Society clinical practice guideline. JCEM. 2010; 96(7):1911-30. PERFORMED BY: [place] [id number] PATHOLOGIST SKEIN DRIER MIGUELINA FLOOD M.D. Performed By: #### H EPATIC, LIPID, TSH3 wRFLX, [id number] #### [place] [id number] [facility] Encounters Encounter Date Encounter Type Care Provider Facility Start: 09-25-2022 End: 09-25-2022 ambulatory PLATE WASHER JAYDEN HOSEA Facility:[facility] Start: 04-16-2022 End: 04-17-2022 ambulatory JAMESON WHITE Facility:[facility] Start: 04-10-2022 End: 04-11-2022 ambulatory JAMESONEUSEBIO WHITE Facility:[facility] Start: 03-06-2022 End: 03-07-2022 ambulatory PLATE WASHER JAYDEN RAJATAaliyahDIANNA Facility:[facility] Procedures Date Procedure Procedure Detail Performing Clinician Start: 03-06-2022 PSA screening JAMESON VU [facility] Comment on above: Performed By: #### [facility] #### [facility] [address] [address] [address] Tom Dotson Payers Date Payer Category Payer Unknown [id number] 2.16.84 [id number] 1960 Unknown [id number] 2.16.84 [id number] 1960 Unknown [id number] 2.16.84 [id number] 1960 Unknown [id number] 2.16.84 [id number] 1959 Medicaid [id number] 1959 Unknown [id number] Summary Purpose Family History No Family History Records FoundNo Family History Records Found Advance Directives No Advanced Directives Records FoundNo Advanced Directives Records Found Additional Source Comments (unrecognized sect ion and content) No Status Records FoundNo Status Records Found INFORMATION SOURCE (unrecogn ized section and content) DATE CREATED AUTHOR 09/04/2019 [facility] DATE CREATED AUTHOR AUTHOR'S KELSEY ATZIA 09/30/2022 [facility] FOR RECORDS PERTAINING TO PATIENTS WHO [...] BE BASED ON THE PRIMARY CLINICAL RECORDS. [facility] [employer] provides no warranty or guarantee of the accuracy or completeness of information in this document.
--- NOTE | 2023-10-21 14:21 | P.HP_ITS ---
H&P: HPI History of Present Illness Chief complaint: COUGHING/CONGESTION/FEVER Narrative: patient is a 63-year-old male with possible history of chronic obstructive pulmonary disease, hyperlipidemia, depression who presents with a several-day history as shortness of breath and cough along with some fatigue and body aches. 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 He said he recently recovered from another upper respiratory infection of which she had for about two weeks felt good for several days, and then developed the [place]. He states that he had had some fevers and chills, and yesterday had some nausea and vomiting. He denies any diarrhea. He reports that he's been using his inhalers as prescribed and has also had two do some breathing treatments. He stills admits to smoking but very rarely. In the emergency department his white blood cell count was found to be ten. rest of CBC was unremarkable. Normal lactate level, normal electrolytes. Troponin and proBNP were both normal. Viral panel however was positive for influenza A. patient was also requiring 2 L of nasal cannula oxygen to maintain his saturations greater than ninety percent so was admitted to the hospitalist service for further plan of care. Review of Systems ROS Narrative ROS: a complete review of systems were reviewed with patient and are positive as below or listed in History of Chief Complaint. General: fever, chills, no night sweats Head: no headache, trauma, visual changes, nausea or vomiting Skin: no reported rashes, itching or sores Eyes: no blurriness of vision Ears: no reported hearing loss, vertigo, earache, or tinnitus Throat: no sore throat, hoarseness, swelling of neck, or tongue pain Heart: no chest pain Lungs: shortness of breath and productive cough GI: no diarrhea or vomiting/nausea Urinary: no urinary urgency, frequency or pain Neuro: no numbness or tingling HEM: no bleeding issues or bruising ENDO: no thyroid problems Psych: no anxiety, yes depression [facility] Medical History (Updated 10/21/23 @ 16:58 by Laurel Waller DO) Depression, unspecified ?F32.A - Depression, unspecified (ICD-10) Dyslipidemia ?E78.5 - Hyperlipidemia, unspecified (ICD-10) 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 Smoking status: Current every day smoker Second hand tobacco smoke exposure: No Non-prescribed substance use: cannabis (any form) Known occupational exposures/hazards: No Highest level of school completed/degree received: high school graduate Are you now , , , , never or living with a partner: living with partner In a typical week, how many times do you talk on the telephone with family, friends, or neighbors: 3 or more times per week How often do you get together with friends or relatives: 3 or more times per week How often do you attend zoroastrian or mormonism services: 1-3 times per year Do you belong to any clubs or organizations such as zoroastrian groups unions, fraternal or athletic groups, or school groups: no Total score: 2 Score interpretation: A score of greater than or equal to 2 indicates the lowest level of social isolation. Little interest or pleasure in doing things: not at all Feeling down, depressed, or hopeless: not at all Feel stressed/tense/nervous/anxious/difficulty sleeping: not at all Due to disability, difficulty making decisions: No Do you think of yourself as: straight/heterosexual Gender Identity: male Meds Home Medications and Allergies Home Medications Medication Instructions Recorded Confirmed Type albuterol sulfate 90 mcg/actuation 2 inh inhalation Q4H PRN shortness 09/21/23 10/21/23 History aerosol inhaler of breath or wheezing aspirin 81 mg tablet,delayed 81 mg PO DAILY 09/21/23 10/21/23 History release atorvastatin 40 mg tablet 40 mg PO DAILY 09/21/23 10/21/23 History budesonide-formoterol HFA 160 2 inh inhalation Q12H 09/21/23 10/21/23 History mcg-4.5 mcg/actuation aerosol inhaler (Symbicort) fluoxetine 10 mg capsule 10 mg PO DAILY 09/21/23 10/21/23 History tiotropium bromide 2.5 2 puff inhalation Q24H 09/21/23 10/21/23 History mcg/actuation mist for inhalation (Spiriva Respimat) trazodone 50 mg tablet 50 mg PO BEDTIME 09/21/23 10/21/23 History Allergies Allergy/AdvReac Type Severity Reaction Status Date / Time No Known Drug Allergies Allergy Verified 09/21/23 00:12 Exam Narrative Exam Narrative: General: Patient is alert, and oriented to person, place and time with normal affect, proper hygiene Skin: no visible rashes, or ulcers Head: atraumatic, acephalic Eyes: PERRLA, no nystagmus present, conjunctiva clear, no scleral icterus Ears: normal gross auditory acuity Neck: no masses palpated Heart: Normal rate and rhythm, no murmurs/rubs/gallops Lungs: audible wheezes, no crackles, diminished breath sounds Abdomen: Normal audible bowel sounds, no distension, No palpable masses, no organomegaly, no rebound/guarding/ or rigidity Musculoskeletal: no swelling bilateral lower extremities Neuro: CN II-X grossly intact Constitutional Vital Signs, click to edit/add: Last Vital Signs Temp 99.1 F 10/21/23 11:40 Pulse 100 H 10/21/23 12:26 Resp 24 10/21/23 12:26 BP 96/75 10/21/23 11:40 Pulse Ox 91 L 10/21/23 11:58 O2 Del Method Room Air 10/21/23 11:58 Results Labs Labs: Short CBC 10/21/23 Range/Units 11:55 WBC 10.0 (4.0-11.0) 10^3/uL Hgb 13.8 L (14.0-18.0) g/dL Hct 44.3 (42.0-54.0) % Plt Count 297 (150-450) 10^3/uL BMP 10/21/23 11:55 Sodium 132 L Potassium 3.7 Chloride 99 Carbon Dioxide 24.4 BUN 18.0 Creatinine 0.98 Glucose 110 H Calcium 8.2 L Liver Function 10/21/23 Range/Units 11:55 Total Bilirubin 0.9 (0.2-1.0) mg/dL AST 24 (15-37) U/L ALT 30 (16-63) U/L Alkaline Phosphatase 64 (46-116) U/L Albumin 3.4 (3.4-5.0) g/dL Assessment and Plan Assessment and Plan (1) Acute exacerbation of chronic obstructive pulmonary disease: Assessment and Plan: due to influenza A. Chest x-ray was negative for any acute pneumonia. Will schedule nebulizer treatments, IV Solu-Medrol every 6 hours.an oxygen therapy to maintain saturations greater than ninety percent. (2) Influenza: Assessment and Plan: influenza A, will place on Tamiflu 75 mg twice a day ?5 days (3) Hypoxia: Assessment and Plan: acute respiratory failure secondary to #1 and #2. Plan patient is a full code Lovenox for DVT prophylaxis I would not expect the patient to cross two midnights
[2023-10-21] MEDS: OSELTAMIVIR PHOSPHATE 75 MG CAPSULE PO ×2 (15:02→20:34)
[2023-10-21] MEDS: ENOXAPARIN SODIUM 40 MG/0.4 ML SYRINGE SUBQ (15:02)
[2023-10-21 15:27] LABS: Alanine Aminotransferase 28 U/L (16-63); Albumin Globulin Ratio 0.9; Albumin Level 3.1 g/dL (3.4-5.0); Alkaline Phosphatase 55 U/L (46-116); Anion Gap 12.2; Aspartate Amino Transferase 24 U/L (15-37); BUN Creatinine Ratio 17.2; Bilirubin Total 0.7 mg/dL (0.2-1.0); Calcium 7.9 mg/dL (8.5-10.1); Carbon Dioxide 25.3 mmol/L (21.0-32.0); Chloride 99 mmol/L (98-107); Estimated GFR (African America >60 (>=60); Estimated GFR (Non-African Ame >60 (>=60); Globulin 3.6 g/dL; Glucose 143 mg/dL (74-106); Potassium 3.5 mmol/L (3.5-5.1); Sodium 133 mmol/L (136-145); Total Protein 6.7 g/dL (6.4-8.2)
--- NOTE | 2023-10-21 16:08 | RESP.RT ---
Found patient with O2 off, SpO2 low 80's, placed back on O2 at 3 LPM. SpO2 up to 93% in about 5 min.
[2023-10-21] MEDS: METHYLPREDNISOLONE SOD SUCC PF 40 MG/ML VIAL IVP (20:35)
[2023-10-21] MEDS: TRAZODONE HCL 50 MG TABLET PO (22:11)
[2023-10-21] MEDS: BUDESONIDE 0.5 MG/2 ML AMPULE NEB IH (23:13)
[2023-10-22] VITALS (19 sets, daily range): BP systolic 138–141; BP diastolic 72–74; PULSE 75–98; RESP 16–18; TEMP 36.1–36.2; O2SAT 91–97
[2023-10-22 00:24] LABS: Bilirubin Urine NEGATIVE (NEGATIVE); Blood Urine TRACE-L (NEGATIVE); Clarity Urine CLEAR (CLEAR); Color Urine LT. YELLOW (YELLOW); Glucose Urine UA 500 mg/dL (NEGATIVE); Ketones Urine NEGATIVE (NEGATIVE); Leukocyte Esterase Urine NEGATIVE (NEGATIVE); Nitrite Urine NEGATIVE (NEGATIVE); Protein Urine NEGATIVE (NEG/TRACE); Urobilinogen Urine 0.2 EU/dL (0.2-1.0); pH Urine 5.5 (5.0-9.0)
[2023-10-22 00:26] LABS: Urine Microscopic Indicated YES
[2023-10-22 00:32] LABS: Bacteria Urine NONE SEEN #/HPF (NONE SEEN); Cast Seen? NONE SEEN #/LPF (NONE SEEN); Crystals Seen? None Seen #/HPF (None Seen); Mucus Urine NONE SEEN (NONE SEEN); RBC Urine 0-2 #/HPF (0-2); Squamous Epithelial Cell Urine NONE SEEN #/LPF (NONE/RARE); Urine Culture Indicated NO; WBC Urine NONE SEEN #/HPF (NONE SEEN)
[2023-10-22] MEDS: IPRATROPIUM/ALBUTEROL SULFATE 3 ML AMPUL.NEB IH ×4 (04:08→23:31)
[2023-10-22] MEDS: METHYLPREDNISOLONE SOD SUCC PF 40 MG/ML VIAL IVP ×3 (04:42→20:54)
[2023-10-22 05:20] LABS: Basophils Percent Auto 0.1 % (0.2-2.0); Hematocrit 40.6 % (42.0-54.0); Immature Granulocytes Abs Auto 0.04 10^3/uL (0.00-0.03); Immature Granulocytes Pct Auto 0.5 % (0.0-0.5); Lymphocytes Absolute Auto 0.6 10^3/uL (1.2-3.8); Lymphocytes Percent Auto 6.7 % (20.5-60.0); Mean Corpuscular Hemoglobin 29.5 pg (25.9-34.0); Mean Corpuscular Volume 92.3 fL (80.0-94.0); Mean Platelet Volume 9.2 fL (9.5-13.5); Monocytes Absolute Auto 0.7 10^3/uL (0.3-0.8); Neutrophils Absolute Auto 7.3 10^3/uL (1.4-6.5); Neutrophils Percent Auto 84.7 % (43.0-75.0); Platelet Count 239 10^3/uL (150-450); Red Cell Distribution Width 12.9 % (11.0-15.0); White Blood Count 8.6 10^3/uL (4.0-11.0)
[2023-10-22 05:53] LABS: Alanine Aminotransferase 23 U/L (16-63); Albumin Globulin Ratio 0.8; Albumin Level 3.1 g/dL (3.4-5.0); Alkaline Phosphatase 59 U/L (46-116); Anion Gap 9.9; Aspartate Amino Transferase 19 U/L (15-37); BUN Creatinine Ratio 17.5; Bilirubin Total 0.5 mg/dL (0.2-1.0); Calcium 8.6 mg/dL (8.5-10.1); Carbon Dioxide 25.9 mmol/L (21.0-32.0); Chloride 100 mmol/L (98-107); Estimated GFR (African America >60 (>=60); Estimated GFR (Non-African Ame >60 (>=60); Globulin 3.9 g/dL; Glucose 138 mg/dL (74-106); Potassium 3.8 mmol/L (3.5-5.1); Sodium 132 mmol/L (136-145)
[2023-10-22] MEDS: ATORVASTATIN CALCIUM 40 MG TABLET PO (08:43)
[2023-10-22] MEDS: ASPIRIN 81 MG TABLET.DR PO (08:43)
[2023-10-22] MEDS: OSELTAMIVIR PHOSPHATE 75 MG CAPSULE PO ×2 (08:43→20:54)
[2023-10-22] MEDS: FLUOXETINE HCL 10 MG CAPSULE PO (08:43)
--- NOTE | 2023-10-22 09:23 | P.PN_ITS ---
Progress Note: Subjective Subjective Interval history: Patient reports improvement in his cough and shortness of breath today. he denies any fevers or chills, n/v/d. Still with productive cough, but less frequent. Still requring oxygen to maintain sats >90% Exam Narrative Exam Narrative: General: Patient is alert, and oriented to person, place and time with normal affect, proper hygiene Heart: Normal rate and rhythm, no murmurs/rubs/gallops Lungs: audible wheezes, no crackles, diminished breath sounds but more air movement today Abdomen: Normal audible bowel sounds, no distension, No palpable masses, no o rganomegaly, no rebound/guarding/ or rigidity Musculoskeletal: no swelling bilateral lower extremities Neuro: CN II-X grossly intact Constitutional Vital Signs, click to edit/add: Last Vital Signs Temp 97.0 F L 10/22/23 04:43 Pulse 78 10/22/23 06:07 Resp 18 10/22/23 04:43 BP 138/74 10/22/23 04:43 Pulse Ox 91 L 10/22/23 08:48 O2 Del Method Nasal Cannula 10/22/23 08:48 O2 Flow Rate 2 10/22/23 08:48 Progress Note: Objective Labs Labs: Short CBC 10/21/23 10/22/23 Range/Units 11:55 04:51 WBC 10.0 8.6 (4.0-11.0) 10^3/uL Hgb 13.8 L 13.0 L (14.0-18.0) g/dL Hct 44.3 40.6 L (42.0-54.0) % Plt Count 297 239 (150-450) 10^3/uL BMP 10/21/23 10/21/23 10/22/23 11:55 14:50 04:51 Sodium 132 L 133 L 132 L Potassium 3.7 3.5 3.8 Chloride 99 99 100 Carbon Dioxide 24.4 25.3 25.9 BUN 18.0 17.0 14.0 Creatinine 0.98 0.99 0.80 Glucose 110 H 143 H 138 H Calcium 8.2 L 7.9 L 8.6 Liver Function 10/21/23 10/21/23 10/22/23 Range/Units 11:55 14:50 04:51 Total Bilirubin 0.9 0.7 0.5 (0.2-1.0) mg/dL AST 24 24 19 (15-37) U/L ALT 30 28 23 (16-63) U/L Alkaline Phosphatase 64 55 59 (46-116) U/L Albumin 3.4 3.1 L 3.1 L (3.4-5.0) g/dL Urine 10/22/23 Range/Units 00:17 Urine Color Lt. yellow (YELLOW) Urine Clarity Clear (CLEAR) Urine pH 5.5 (5.0-9.0) Ur Specific [place] 1.010 (1.005-1.025) Urine Protein Negative (NEG/TRACE) mg/dL Urine Glucose (UA) 500 A (NEGATIVE) mg/dL Progress Note: A&P Assessment and Plan (1) Acute exacerbation of chronic obstructive pulmonary disease: Assessment and Plan: due to influenza A. Chest x-ray was negative for any acute pneumonia. continue schedule nebulizer treatments, IV Solu-Medrol every 6 hours and oxygen therapy to maintain saturations greater than ninety percent. add zithromax today (2) Influenza: Assessment and Plan: Tamiflu 75 mg twice a day ?5 days (3) Hypoxia: Assessment and Plan: acute respiratory failure secondary to #1 and #2. Plan patient is a full code Lovenox for DVT prophylaxis due to patient still requiring oxygen therapy and not recovering as fast as anticipated, patient will be made inpatient status.
[2023-10-22] MEDS: AZITHROMYCIN 500 MG in 0.9 % SODIUM CHLORIDE 250 ML 250 MG IV (10:36)
[2023-10-22] MEDS: BUDESONIDE 0.5 MG/2 ML AMPULE NEB IH ×2 (11:12→23:30)
[2023-10-22] MEDS: 0.9 % SODIUM CHLORIDE 250 ML IV.SOLN 10 ML IV (12:11)
--- NOTE | 2023-10-22 13:32 | CM.NOTE ---
Rounds made with Dr. Waller, no discharge today and continue to wean oxygen as tolerated.
--- NOTE | 2023-10-22 14:39 | CM.NOTE ---
Important Message From Medicare discussed with pt, pt verbalizes understanding and signs paper. Original given to pt and copy placed in pt's chart.
[2023-10-22] MEDS: ENOXAPARIN SODIUM 40 MG/0.4 ML SYRINGE SUBQ (15:14)
--- NOTE | 2023-10-22 16:20 | RESP.RT ---
titrated down to 1L nc
--- NOTE | 2023-10-22 16:20 | RESP.RT ---
titrated down to 1L
[2023-10-22] MEDS: TRAZODONE HCL 50 MG TABLET PO (22:20)
[2023-10-23] VITALS (11 sets, daily range): BP systolic 127; BP diastolic 66; PULSE 83–96; RESP 16–18; TEMP 36.6; O2SAT 94–96
[2023-10-23] MEDS: IPRATROPIUM/ALBUTEROL SULFATE 3 ML AMPUL.NEB IH ×2 (04:00→11:24)
--- NOTE | 2023-10-23 04:09 | RESP.RT ---
titrated down to room air
[2023-10-23] MEDS: METHYLPREDNISOLONE SOD SUCC PF 40 MG/ML VIAL IVP ×2 (04:13→12:01)
[2023-10-23 05:36] LABS: Basophils Percent Auto 0.1 % (0.2-2.0); Hematocrit 36.8 % (42.0-54.0); Hemoglobin 11.7 g/dL (14.0-18.0); Immature Granulocytes Abs Auto 0.08 10^3/uL (0.00-0.03); Immature Granulocytes Pct Auto 0.6 % (0.0-0.5); Lymphocytes Absolute Auto 0.9 10^3/uL (1.2-3.8); Lymphocytes Percent Auto 6.1 % (20.5-60.0); Mean Corpuscular HGB Conc 31.8 g/dL (29.9-35.2); Mean Corpuscular Volume 91.3 fL (80.0-94.0); Mean Platelet Volume 9.6 fL (9.5-13.5); Monocytes Absolute Auto 1.1 10^3/uL (0.3-0.8); Monocytes Percent Auto 7.9 % (1.7-12.0); Neutrophils Absolute Auto 11.9 10^3/uL (1.4-6.5); Neutrophils Percent Auto 85.3 % (43.0-75.0); Platelet Count 241 10^3/uL (150-450); Red Blood Count 4.03 10^6/uL (4.70-6.10); Red Cell Distribution Width 12.9 % (11.0-15.0)
[2023-10-23 06:10] LABS: Alanine Aminotransferase 21 U/L (16-63); Albumin Globulin Ratio 0.8; Albumin Level 2.8 g/dL (3.4-5.0); Alkaline Phosphatase 53 U/L (46-116); Anion Gap 7.5; Aspartate Amino Transferase 15 U/L (15-37); BUN Creatinine Ratio 23.8; Bilirubin Total 0.3 mg/dL (0.2-1.0); Calcium 8.4 mg/dL (8.5-10.1); Carbon Dioxide 28.9 mmol/L (21.0-32.0); Chloride 104 mmol/L (98-107); Estimated GFR (African America >60 (>=60); Estimated GFR (Non-African Ame >60 (>=60); Globulin 3.5 g/dL; Glucose 138 mg/dL (74-106); Potassium 3.4 mmol/L (3.5-5.1); Sodium 137 mmol/L (136-145); Total Protein 6.3 g/dL (6.4-8.2)
--- NOTE | 2023-10-23 09:11 | PM.DS1 ---
DS: Providers Provider Date of admission: 10/22/23 14:34 Primary care physician: Azul Quezada NP Admitting clinician: Laurel Waller Consults: 10/21/23 14:13 Physical Therapy Eval and Treat Routine Reason for consultation: weakness Has provider been notified: No Discharging clinician: Laurel Waller DS: Diagnosis Discharge Diagnosis (1) Acute exacerbation of chronic obstructive pulmonary disease: (2) Influenza: (3) Hypoxia: DS: Summary Hospital Course Hospital Course: patient is a 63-year-old male with possible history of chronic obstructive pulmonary disease, hyperlipidemia, depression who presents with a several-day history as shortness of breath and cough along with some fatigue and body aches. In the emergency department his white blood cell count was found to be ten. rest of CBC was unremarkable. Normal lactate level, normal electrolytes. Troponin and proBNP were both normal. Viral panel however was positive for influenza A. patient was also requiring 2 L of nasal cannula oxygen to maintain his saturations greater than ninety percent so was admitted to the hospitalist service for further plan of care. Patient was treated with scheduled duonebs, Tamiflu, azithromycin and Solumedrol. His oxygen sats improved and at the time of discharge is mobile and maintaining sats >90%. He remains afebrile and reports his shortness of breath has improved. He has all his home medications including nebs and inhalers. He will be discharged home in stable condition. Close follow up with pcp, return to the hospital with any worsening issues. Discharge home on Tamiflu 75mg BID for 3 more days, Azithromycin 250mg x 3 days and prednisone 20mg BID x 7 days. Status at Discharge Functional status at discharge: independent ambulation Overall status at discharge: patient is back to baseline Time Spent with Patient Time attestation: Total time spent providing and/or coordinating discharge services: Time spent: greater than 30 minutes Exam Narrative Exam Narrative: General: Patient is alert, and oriented to person, place and time with normal affect, proper hygiene Heart: Normal rate and rhythm, no murmurs/rubs/gallops Lungs: no audible wheezes, no crackles, diminished breath sounds but much improved Abdomen: Normal audible bowel sounds, no distension, No palpable masses, no organomegaly, no rebound/guarding/ or rigidity Musculoskeletal: no swelling bilateral lower extremities Neuro: CN II-X grossly intact Constitutional Vital Signs, click to edit/add: Last Vital Signs Temp 97.8 F 10/23/23 04:14 Pulse 90 10/23/23 08:00 Resp 16 10/23/23 04:14 BP 127/66 10/23/23 04:14 Pulse Ox 95 10/23/23 04:14 O2 Del Method Room Air 10/23/23 04:14 O2 Flow Rate 1 10/23/23 04:08 DS: Data Data Completed and Pending Labs on day of discharge: Labs from last 24 hours 10/23/23 04:56 WBC 14.0 H RBC 4.03 L Hgb 11.7 L Hct 36.8 L MCV 91.3 MCH 29.0 MCHC 31.8 RDW 12.9 Plt Count 241 MPV 9.6 Neut % (Auto) 85.3 H Lymph % (Auto) 6.1 L [place] % (Auto) 7.9 Eos % (Auto) 0.0 L Baso % (Auto) 0.1 L Neut # (Auto) 11.9 H Lymph # (Auto) 0.9 L [place] # (Auto) 1.1 H Eos # (Auto) 0.0 Baso # (Auto) 0.0 Abs Immat Gran (auto) 0.08 H Imm/Tot Granulo (auto) 0.6 H Sodium 137 Potassium 3.4 L Chloride 104 Carbon Dioxide 28.9 Anion Gap 7.5 BUN 19.0 H Creatinine 0.80 Est GFR ( Amer) >60 Est GFR (Non-Af Amer) >60 BUN/Creatinine Ratio 23.8 Glucose 138 H Calcium 8.4 L Total Bilirubin 0.3 AST 15 ALT 21 Alkaline Phosphatase 53 Total Protein 6.3 L Albumin 2.8 L Globulin 3.5 Albumin/Globulin Ratio 0.8 Discharge Plan Discharge Disposition: Home, Self-Care Discharge Medications: New oseltamivir 75 mg Capsule 75 mg PO BID 3 Days Qty: 6 0RF Protocol: Tamiflu (1-12 yrs) Condition: Weight < 15kg Dose/Route: 30 mg Instruction: PO Condition: Weight 15-23 kg Dose/Route: 45 mg Instruction: PO Condition: Weight 24-40 kg Dose/Route: 60 mg Instruction: PO Condition: Weight > 41 kg Dose/Route: 75 mg Instruction: PO azithromycin 250 mg tablet 250 mg PO DAILY 3 Days Qty: 3 0RF prednisone 20 mg tablet 20 mg PO BID 7 Days Qty: 14 0RF Continued atorvastatin 40 mg tablet 40 mg PO DAILY trazodone 50 mg tablet 50 mg PO BEDTIME aspirin 81 mg tablet,delayed release (DR/EC) 81 mg PO DAILY fluoxetine 10 mg capsule 10 mg PO DAILY albuterol sulfate 90 mcg/actuation HFA aerosol inhaler 2 inh INHALATION Q4H PRN (Reason: shortness of breath or wheezing) budesonide-formoterol [Symbicort] 160-4.5 mcg/actuation HFA aerosol inhaler 2 inh INHALATION Q12H Spiriva Respimat 2.5 mcg/actuation mist 2 puff INHALATION Q24H Activity: increase activity as tolerated Diet: advance to your usual diet Patient Instructions: Influenza (DC) Forms: Portal Instructions Follow Up Appointments: follow up with pcp 5-7 days
[2023-10-23] MEDS: ASPIRIN 81 MG TABLET.DR PO (09:20)
[2023-10-23] MEDS: ATORVASTATIN CALCIUM 40 MG TABLET PO (09:20)
[2023-10-23] MEDS: OSELTAMIVIR PHOSPHATE 75 MG CAPSULE PO (09:20)
[2023-10-23] MEDS: FLUOXETINE HCL 10 MG CAPSULE PO (09:20)
[2023-10-23] MEDS: AZITHROMYCIN 500 MG in 0.9 % SODIUM CHLORIDE 250 ML 250 MG IV (09:20)
[2023-10-23] MEDS: BUDESONIDE 0.5 MG/2 ML AMPULE NEB IH (11:24)
--- NOTE | 2023-10-23 13:54 | CM.NOTE ---
Rounds made with Dr. Waller, discussed with pt discharge to home today on oral medications. No discharge needs identified.
--- NOTE | 2023-10-24 15:33 | CM.DCFOLLOWU ---
Person spoke with: Sam How are you feeling? still feeling it. How is your pain? no pain Did you understand your discharge instructions? yes Do you have any questions about your discharge instructions? no Were you given any prescriptions at discharge? yes Were you able to get your prescriptions filled? I sure did Do you understand how to take your medications as ordered? yes Do you have any questions about your follow up appointment and do you plan to keep your follow up appointment? Next , Oct 30 Is there anything else that you would like to discuss? No, just relaxing hoping to feel better. Questions/Comments/Concerns/Other:
== END 2023-10-23 13:31 | disposition home or self-care (01) | DRG 190 ==
LOC: ER 13:41 → MS 13:59
PROVIDERS: Admitting Provider Family Medicine; Emergency Provider Emergency Medicine; PCP Nurse Practitioner; Visit Provider Family Medicine
DX: J44.1 Chronic obstructive pulmonary disease with (acute) exacerbation (principal); J96.01 Acute respiratory failure with hypoxia; J10.1 Influenza due to other identified influenza virus with other respiratory manifestations; Z79.82 Long term (current) use of aspirin; Z79.899 Other long term (current) drug therapy; F17.210 Nicotine dependence, cigarettes, uncomplicated; Z79.51 Long term (current) use of inhaled steroids; E78.5 Hyperlipidemia, unspecified; F32.A Depression, unspecified; Z83.3 Family history of diabetes mellitus; Z83.6 Family history of other diseases of the respiratory system; Z82.49 Family history of ischemic heart disease and other diseases of the circulatory system
CPT/HCPCS: 36415; 71045; 80053; 81001; 83605; 83735; 83880; 84145; 84484; 85007; 85025; 85027; 87040; 87804; 87811; 93005; 94640; 94761; 96365; 96366; 96372; 96376; 97161; 99285; G0378; J0456; J1650; J2405; J2920; J2930

== ENCOUNTER 2023-11-30 18:44 | Observation (INO) | payer MEDICARE, SELFPAY ==
[2023-11-30] VITALS (36 sets, daily range): BP systolic 102–176; BP diastolic 68–87; PULSE 98–131; RESP 19–30; TEMP 36.6–36.9; O2SAT 83–96; BMI 26.2; BMI 27.5
--- NOTE | 2023-11-30 18:57 | ECG_ITS ---
[facility] Test Date: 2023-11-30 Pat Name: JUANITA KRAMER Department: Room: - Gender: Male Hr Assistant: : 1960 Requested By: JAYDEN JC Order Number: [id number] Reading MD: TATIANA ZAVALA Measurements Intervals [place] Rate: 115 P: 83 FL: 128 QRS: 79 QRSD: 92 T: 75 QT: 314 QTc: 382 Interpretive Statements 1120 Sinus tachy[address] depression, can't exlculde inferolateral ischemia 0102 ARTIFACT PRESENT 9150 abnormal ECG Electronically Signed On 12-01-2023 6:45:20 EDT by TATIANA ZAVALA
--- NOTE | 2023-11-30 18:57 | XR_ITS ---
[address] [address] Patient Name: JUANITA KRAMER MRN: [id number] date: 1960 Sex: M Assigned Patient Location: ER Current Patient Location: ED.MAIN Accession/Order Number: [id number] Exam Date: 11/30/2023 19:12 Report Date: 11/30/2023 22:23 At the request of: ROSANNA RUIZ Procedure: XR chest 1V EXAM: XR chest 1V HISTORY: sob COMPARISON: 10/21/2023 FINDINGS/IMPRESSION: 1. Lungs are clear 2. No pneumothorax. No pleural effusion. 3. Heart size and mediastinal contours are normal 4. No acute osseous abnormality Electronically authenticated by: DREAD BARRIGA Date: 11/30/2023 22:23
[2023-11-30] MEDS: METHYLPREDNISOLONE SOD SUCC PF 125 MG/2 ML VIAL IVP (19:16)
[2023-11-30 19:17] LABS: Hematocrit 39.4 % (42.0-54.0); Hemoglobin 12.9 g/dL (14.0-18.0); Mean Corpuscular HGB Conc 32.7 g/dL (29.9-35.2); Mean Corpuscular Volume 91.6 fL (80.0-94.0); Mean Platelet Volume 9.4 fL (9.5-13.5); Platelet Count 345 10^3/uL (150-450); Red Cell Distribution Width 12.8 % (11.0-15.0)
--- NOTE | 2023-11-30 19:18 | ED_ITS ---
HPI - SOB/Dyspnea General Chief Complaint: Shortness of Breath/Dyspnea Stated Complaint: Shortness of Breath Time Seen by Provider: 11/30/23 18:55 Source: patient Mode of arrival: walk-in History of Present Illness HPI Narrative: 63-year-old male to the emergency department to shortness of breath. He has a history of chronic obstructive pulmonary disease with no baseline oxygen requirement. He reports that he was at a nightclub watching heavy metal band when they started using some fog machines. He reports that ever since inhaling fall two days ago he's had increasing shortness of breath. He denies any fever, sweats, chills. He denies any chest pain. This is similar to past exacerbations of his chronic obstructive pulmonary disease. He reports he has Singulair at home however is out of his albuterol treatments. Related Data Home Medications Medication Instructions Recorded Confirmed albuterol sulfate 90 mcg/actuation 2 inh inhalation Q4H PRN shortness 09/21/23 11/30/23 aerosol inhaler of breath or wheezing aspirin 81 mg tablet,delayed 81 mg PO DAILY 09/21/23 11/30/23 release atorvastatin 40 mg tablet 40 mg PO DAILY 09/21/23 11/30/23 budesonide-formoterol HFA 160 2 inh inhalation Q12H 09/21/23 11/30/23 mcg-4.5 mcg/actuation aerosol inhaler (Symbicort) fluoxetine 10 mg capsule 10 mg PO DAILY 09/21/23 11/30/23 tiotropium bromide 2.5 2 puff inhalation Q24H 09/21/23 11/30/23 mcg/actuation mist for inhalation (Spiriva Respimat) trazodone 50 mg tablet 50 mg PO BEDTIME 09/21/23 11/30/23 Allergies Allergy/AdvReac Type Severity Reaction Status Date / Time No Known Drug Allergies Allergy Verified 09/21/23 00:12 Review of Systems ROS Status of ROS 10 or more systems reviewed and unremark able except as noted in history and below [facility] Medical History (Updated 12/01/23 @ 02:10 by Jasper Lion MD) COPD (chronic obstructive pulmonary disease) ?J44.9 - Chronic obstructive pulmonary disease, unspecified (ICD-10) Depression, unspecified ?F32.A - Depression, unspecified (ICD-10) Dyslipidemia ?E78.5 - Hyperlipidemia, unspecified (ICD-10) 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 Smoking status: Current every day smoker Second hand tobacco smoke exposure: No Non-prescribed substance use: cannabis (any form) Known occupational exposures/hazards: No Highest level of school completed/degree received: high school graduate Are you now , , , , never or living with a partner: living with partner In a typical week, how many times do you talk on the telephone with family, friends, or neighbors: 3 or more times per week How often do you get together with friends or relatives: 3 or more times per week How often do you attend zoroastrian or episcopalian services: 1-3 times per year Do you belong to any clubs or organizations such as zoroastrian groups unions, fraternal or athletic groups, or school groups: no Total score: 2 Score interpretation: A score of greater than or equal to 2 indicates the lowest level of social isolation. Little interest or pleasure in doing things: not at all Feeling down, depressed, or hopeless: not at all Feel stressed/tense/nervous/anxious/difficulty sleeping: not at all Due to disability, difficulty making decisions: No Do you think of yourself as: straight/heterosexual Gender Identity: male Exam Narrative Exam Narrative: VITALS: I have reviewed the triage vital signs. GENERAL: 63-year-old male in moderate Respiratory distress. NEURO: Alert and oriented. Moves all extremities. Face is symmetric and expressive. EYES: PERRL. No scleral icterus or conjunctival injection. No discharge. HENT: Normocephalic, atraumatic. Hearing is grossly intact. Nares grossly patent and without discharge. Mucous membranes moist. NECK: No JVD. Patient moves neck without restriction. CARDIO: Rhythm regular. Normal rate. No murmur, rub, or gallop. Pulses equal bilaterally in the upper and lower extremity. No lower extremity edema. PULM: Rhonchi that clear with coughing. Wheezes throughout. No rales. Moderate increased work of breathing. Moderate conversational dyspnea. GI/: Abdomen is soft and non-tender. Normoactive bowel sounds. EXTREMITIES: Symmetric muscle bulk. No joint swelling. No clubbing, cyanosis, or deformity. SKIN: Warm and dry. Normal turgor. No rash or lesions appreciated. PSYCH: Mood, affect, and interaction is appropriate to the setting. Constitutional Vital Signs, click to edit/add: Last Vital Signs Temp 97.9 F 11/30/23 23:18 Pulse 91 H 12/01/23 02:00 Resp 20 11/30/23 23:26 BP 137/71 11/30/23 23:18 Pulse Ox 92 L 12/01/23 00:03 O2 Del Method Nasal Cannula 12/01/23 00:03 O2 Flow Rate 3 12/01/23 00:03 Course Vital Signs Vital signs: Vital Signs Temperature 98.4 F 11/30/23 18:52 Pulse Rate 125 H 11/30/23 18:52 Respiratory Rate 28 H 11/30/23 18:52 Blood Pressure 176/87 H 11/30/23 18:52 Pulse Oximetry 83 L 11/30/23 18:52 Oxygen Delivery Method Room Air 11/30/23 18:52 Temperature 97.9 F 11/30/23 23:18 Pulse Rate 91 H 12/01/23 02:00 Respiratory Rate 20 11/30/23 23:26 Blood Pressure 137/71 11/30/23 23:18 Pulse Oximetry 92 L 12/01/23 00:03 Oxygen Delivery Method Nasal Cannula 12/01/23 00:03 Oxygen Delivery Flow Rate 3 12/01/23 00:03 MDM - SOB/Dyspnea MDM Narrative Medical decision making narrative: 60-year-old male to the emergency department with chief complaint of shortness of breath. Tachycardia, tachypnea, hypoxic in the low 80s on room air. Patient was placed on 4 L nasal cannula. History and exam are suggestive of chronic obstructive pulmonary disease exacerbation. There is no evidence of volume overloaded state/congestive heart failure. Clinical picture is not that of pulmonary embolism. Stacked DuoNebs and solumedrol ordered. Laboratory reviewed and noted. No significant abnormalities. Chest x-ray without acute findings.EKG without evidence of ischemia. Troponin negative. Patient reexamined. He was improved after the DuoNeb treatments. He remains on 4 L nasal cannula. He will need admission to the hospital for further care. Patient agrees with this plan. Case discussed with the hospitalist Fernando who requests tele obs admit for patient. Medical Records Attestation: I reviewed the patient's medical records. Lab Data Attestation: I reviewed the patient's lab results. Labs: Lab Results 11/30/23 11/30/23 Range/Units 19:05 19:30 WBC 21.0 H (4.0-11.0) 10^3/uL RBC 4.30 L (4.70-6.10) 10^6/uL Hgb 12.9 L (14.0-18.0) g/dL Hct 39.4 L (42.0-54.0) % MCV 91.6 (80.0-94.0) fL MCH 30.0 (25.9-34.0) pg MCHC 32.7 (29.9-35.2) g/dL RDW 12.8 (11.0-15.0) % Plt Count 345 (150-450) 10^3/uL MPV 9.4 L (9.5-13.5) fL Seg Neuts % (Manual) 87.0 Lymphocytes % (Manual) 2.0 L (20.5-60.0) % Atypical Lymphs % (Man) 1.0 % Monocytes % (Manual) 10.0 (1.7-12.0) % Eosinophils % (Manual) 0.0 L (0.9-7.0) % Basophils % (Manual) 1.0 (0.2-2.0) % Neutrophils # (Manual) 18.27 H (1.4-6.5) 10^3/uL Lymphocytes # (Manual) 0.42 L (1.20-3.80) 10^3/uL Abs Atypical Lymphs Man 0.21 Monocytes # (Manual) 2.10 H (0.30-0.80) 10^3/uL Eosinophils # (Manual) 0.00 (0.00-0.70) 10^3/uL Basophils # (Manual) 0.21 H (0.00-0.10) 10^3/uL Hypersegmented Neuts 1+ Toxic Granulation 4+ Sodium 136 (136-145) mmol/L Potassium 3.7 (3.5-5.1) mmol/L Chloride 101 (98-107) mmol/L Carbon Dioxide 27.0 (21.0-32.0) mmol/L Anion Gap 11.7 BUN 11.0 (7.0-18.0) mg/dL Creatinine 0.79 (0.70-1.30) mg/dL Est GFR ( Amer) >60 (>=60) Est GFR (Non-Af Amer) >60 (>=60) BUN/Creatinine Ratio 13.9 Glucose 102 (74-106) mg/dL Lactate 0.8 (0.4-2.0) mmol/L Calcium 8.6 (8.5-10.1) mg/dL Total Bilirubin 1.1 H (0.2-1.0) mg/dL AST 15 (15-37) U/L ALT 18 (16-63) U/L Alkaline Phosphatase 71 (46-116) U/L Troponin I High Sens 6.4 (4.0-76.1) pg/mL NT-Pro-B Natriuret Pep 512.0 (<=900.0) pg/mL Total Protein 7.4 (6.4-8.2) g/dL Albumin 3.2 L (3.4-5.0) g/dL Globulin 4.2 g/dL Albumin/Globulin Ratio 0.8 Adenovirus (PCR) Not detected (NOT DETECTE) C. pneumoniae DNA (PCR) Not detected (NOT DETECTE) Coronavirus Type OC43 Not detected (NOT DETECTE) Coronavirus Type HKU1 Not detected (NOT DETECTE) Coronavirus Type 229E Not detected (NOT DETECTE) Coronavirus Type NL63 Not detected (NOT DETECTE) Human Metapneumovir PCR Not detected (NOT DETECTE) M. pneumoniae (PCR) Not detected (NOT DETECTE) Parainfluenza PCR Not detected (NOT DETECTE) Parainfluenza 2 (PCR) Not detected (NOT DETECTE) Parainfluenza 3 (PCR) Not detected (NOT DETECTE) Parainfluenza 4 (PCR) Not detected (NOT DETECTE) RSV (RT-PCR) Not detected (NOT DETECTE) Entero/Rhino (PCR) Not detected (NOT DETECTE) SARS-CoV-2 (PCR) Not detected (NOT DETECTE) Bordetella pertussis (PCR) Not detected (NOT DETECTE) B parapertussis DNA PCR Not detected (NOT DETECTE) Influenza Type A (PCR) Not detected (NOT DETECTE) Influenza Type B (PCR) Not detected (NOT DETECTE) ECG Data Attestation: I personally reviewed and interpreted this ECG as follows: (Rate 115. No STEMI. Normal QTC 382. ) Critical Care Time Critical Care Time Critical Care Time: Yes Total Critical Care Time: 35 Attestation: Critical Care Procedure Note Authorized and Performed by: Jasper Lion DO Total critical care time: 35 min Due to a high probability of clinically significant, life threatening deterioration, the patient required my highest level of preparedness to intervene emergently and I personally spent this critical care time directly and personally managing the patient. This critical care time included obtaining a history; examining the patient; pulse oximetry; ordering and review of studies; arranging urgent treatment with development of a management plan; evaluation of patient's response to treatment; frequent reassessment; and, discussions with other providers. This critical care time was performed to assess and manage the high probability of imminent, life-threatening deterioration that could result in multi-organ failure. It was exclusive of separately billable procedures and treating other patients and teaching time. Please see MDM section and the rest of the note for further information on patient assessment and treatment. Discharge Plan Discharge Chief Complaint: Shortness of Breath/Dyspnea Clinical Impression: Acute hypoxemic respiratory failure, Acute exacerbation of chronic obstructive pulmonary disease Patient Disposition: Admitted As Inpatient Condition: Good Discharge Date/Time: 11/30/23 22:55
[2023-11-30] MEDS: IPRATROPIUM/ALBUTEROL SULFATE 3 ML AMPUL.NEB 9 ML IH (19:27)
--- OUTSIDE RECORDS SUMMARY | 2023-11-30 19:34 | XMS_ITS | CCD ---
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 Name Role Phone SAMSA, JAMESON Admitting Unavailable SAMSA, JAMESON Attending Unavailable AICHHOLZ, LAP WINDING MACHINE OPERATOR AZUL Referring Unavailable AICHHOLZ, LAP WINDING MACHINE OPERATOR AZUL Primary Care Unavailable SAMSA, JAMESON Consulting Unavailable AICHHOLZ, LAP WINDING MACHINE OPERATOR AZUL Admitting Unavailable AICHHOLZ, LAP WINDING MACHINE OPERATOR AZUL Attending Unavailable AICHHOLZ, LAP WINDING MACHINE OPERATOR AZUL Primary Care Unavailable AICHHOLZ, LAP WINDING MACHINE OPERATOR AZUL Consulting Unavailable SAMSA, JAMESON Admitting Unavailable SAMSA, JAMESON Attending Unavailable AICHHOLZ, LAP WINDING MACHINE OPERATOR AZUL Primary Care Unavailable ZIEBALMA, DR YARIEL Figueroa Consulting Unavailable SAMSA, JAMESON Consulting Unavailable AICHHOLZ, LAP WINDING MACHINE OPERATOR AZUL Primary Care Unavailable DAREN, DR MAURO Admitting Unavailable DAREN, DR MAURO Attending Unavailable WHITNEY, DR YARIEL Figueroa Consulting Unavailable DAREN, DR MAURO Consulting Unavailable Kiko Zurita MD Primary Care Provider Damien CAGE CLERK, Azul Unavailable Kiko Zurita MD Primary Care Provider AICHHOLZ, AZUL Attending Unavailable AICHHOLZ, AZUL Attending Unavailable Allergies Allergy Classification Reported Allergen(s) Allergy Type Date of Onset Reaction(s) Facility (2 sources) Honey bee venom Allergy to substance 06-09-2020 Unknown [facility] Medications Current Medications Medication Drug Class(es) Dates Sig (Normalized) Sig (Original) albuterol 0.83 mg/ml inhalation solution (4 sources) beta2-Adrenergic Agonist albuterol (2.5 MG/3M L) 0.083% nebulizer solution Take 2.5 mg by nebulization 4 (four) times a day as needed for wheezing 0 Active take 2 puff(s) by in halation every four hours for wheezing albuterol HFA 90 mcg/act inhaler Inhale 2 puffs every 4 (four) hours if needed for wheezing 0 Active aspirin 81 mg delayed release oral tablet (2 sources) Platelet Aggregation Inhibitor, Nonsteroidal Anti-inflammatory Drug take 1 tablet by mouth in the morning aspirin 81 MG EC tablet Take 81 mg by mouth in the morning. 0 Active atorvastatin 40 mg oral tablet (2 sources) HMG-CoA Reductase Inhibitor take 1 tablet by mouth in the morning atorvastatin (Lipitor) 40 MG tablet Take 40 mg by mouth in the morning. 0 Active 60 actuat budesonide 0.16 mg/actuat / formoterol fumarate 0.0045 mg/actuat metered dose inhaler (2 sources) Corticosteroid, beta2-Adrenergic Agonist take 2 puff(s) by inhalation in the morning budesonide-formotero l (Symbicort) 160-4.5 MCG/ACT inhaler Inhale 2 puffs in the morning and 2 puffs before bedtime. Rinse mouth with water after use to reduce aftertaste and incidence of candidiasis. Do not swallow.. 0 Active FLUoxetine 10 mg oral capsule (2 sources) Serotonin Reuptake Inhibitor take 1 capsule by mouth in the morning FLUoxetine (PROzac) 10 MG capsule Take 10 mg by mouth in the morning. 0 Active 10 actuat tiotropium 0.0025 mg/actuat inhalation spray (2 sources) Anticholinergic take 2 puff(s) by inhalation in the morning tiotropium (Spiriva Respimat) 2.5 MCG/ACT inhaler Inhale 2 puffs in the morning. 0 Active traZODone hydrochloride 50 mg oral tablet (2 sources) Serotonin Reuptake Inhibitor take 1 tablet by mouth at bedtime traZODone (Desyrel) 50 MG tablet Take 50 mg by mouth at bedtime 0 Active triamcinolone acetonide 0.055 mg/actuat metered dose nasal spray (2 sources) Corticosteroid take 2 spray(s) nasal route in the morning triamcinolone (Nasacort) 55 MCG/ACT nasal inhaler Administer 2 sprays into each nostril in the morning. 0 Active Problems Active Problems Problem Classification Problem Date Documented Date Episodic/Chronic Acute cerebrovascular disease (4 sources) Cerebrovascular accident; 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: [Cerebral infarction, unspecified] Onset: 06-10-2020 10-30-2023 Chronic Anxiety disorders (3 sources) Other specified anxiety disorders; 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: [Mixed anxiety and depressive disorder] Onset: 03-07-2022 10-30-2023 Chronic Chronic obstructive pulmonary disease and bronchiectasis (9 sources) Emphysema, unspecified; 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: [Centrilobular emphysema] Onset: 04-16-2022 Chronic Disorders of lipid metabolism (2 sources) Mixed hyperlipidemia; 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: [Mixed hyperlipidemia] Onset: 07-20-2020 10-30-2023 Chronic Disorders usually diagnosed in infancy, childhood, or adolescence (2 sources) Wilian de la Tourette's syndrome; 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: [Tourette's disorder] Onset: 10-30-2023 10-30-2023 Chronic Influenza (4 sources) Influenza; 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: [Influenza due to unidentified influenza virus with other respiratory manifestations] Onset: 10-30-2023 10-30-2023 Episodic Occlusion or stenosis of precerebral arteries (10 sources) Occlusion and stenosis of bilateral carotid arteries; 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: [Internal carotid artery stenosis] Onset: 06-10-2020 Chronic Osteoarthritis (2 sources) Osteoarthritis; 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: [Unspecified osteoarthritis, unspecified site] Onset: 10-30-2023 10-30-2023 Chronic Other diseases of veins and lymphatics (2 sources) Calcified lymph nodes; 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: [Other specified noninfective disorders of lymphatic vessels and lymph nodes] Onset: 10-30-2023 10-30-2023 Chronic Other lower respiratory disease (4 sources) Shortness of breath; 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: [SHORTNESS OF BREATH] Onset: 09-25-2022 Episodic Other lower respiratory disease (2 sources) Multiple nodules of lung; 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: [Other nonspecific abnormal finding of lung field] Onset: 10-30-2023 10-30-2023 Episodic Other nutritional; endocrine; and metabolic disorders (4 sources) Overweight in adulthood with body mass index of 25 or more but less than 30; 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: [Body mass index (BMI) 26.0-26.9, adult] Onset: 10-30-2023 10-30-2023 Episodic Other upper respiratory disease (2 sources) Allergic rhinitis; 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: [Allergic rhinitis, unspecified] Onset: 10-30-2023 10-30-2023 Chronic Other upper respiratory disease (4 sources) Polyp of vocal cord ; 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] Onset: 10-30-2023 10-30-2023 Episodic Residual codes; unclassified (2 sources) Insomnia; 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: [Insomnia, unspecified] Onset: 10-30-2023 10-30-2023 Episodic Screening and history of mental health and substance abuse codes (1 source) Personal history of nicotine dependence; 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: [PERSONAL HISTORY OF NICOTINE DEPEND] Onset: 09-27-2022 Episodic Spondylosis; intervertebral disc disorders; other back problems (2 sources) Degeneration of cervical intervertebral disc; 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: [Other cervical disc degeneration, unspecified cervical region] Onset: 10-30-2023 10-30-2023 Chronic Substance-related disorders (8 sources) Cannabis abuse; 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: [Cannabis abuse, uncomplicated] Onset: 07-20-2020 10-30-2023 Chronic Unclassified (1 source) CONTACT W/AND (SUSP) EXPOS [...] malignant neoplasm of prostate] Onset: 03-07-2022 Episodic Viral infection (2 sources) Disease caused by 2019-nCoV; 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: [COVID-19] Onset: 07-23-2019 10-30-2023 Episodic Results Test Name Value Interpretation Reference Range Facility BNPon 09-25-2022 Natriuretic peptide B (Bld) [Mass/Vol] 42.0 pg/mL Normal <=900.0 [facility] Comment on above: Performed By: #### I NFLUAB #### [facility] [address] [place] [address] Dr. Tom Dotson CBC AUTO DIFFon 09-25-2022 BASO # 0.1 103/ul Normal 0.0-0.1 [facility] Comment on above: Performed By: #### C BC #### [facility] [address] [place] [address] Dr. Tom Dotson Basophils/100 WBC (Bld) 0.8 % Normal 0.2-2.0 [facility] Comment on above: Performed By: #### C BC #### [facility] [address] [place] [address] Dr. Tom Dotson EO # 0.0 103/ul Normal 0.0-0.7 [facility] Comment on above: Performed By: #### C BC #### [facility] [address] [place] [address] Dr. Tom Dotson Eosinophils/100 WBC (Bld) 0.0 % Critically low 0.9-7.0 [facility] Comment on above: Performed By: #### C BC #### [facility] [address] [place] [address] Dr. Tom Dotson Erythrocyte distribution width (RBC) [Ratio] 12.4 % Normal 11.0-15.0 [facility] Comment on above: Performed By: #### C BC #### [facility] [address] [place] [address] Dr. Tom Dotson Hematocrit (Bld) [Volume fraction] 43.6 % Normal 42.0-54.0 [facility] Comment on above: Performed By: #### C BC #### [facility] [address] [place] [address] Dr. Tom Dotson Hemoglobin (Bld) [Mass/Vol] 14.3 g/dL Normal 14.0-18.0 [facility] Comment on above: Performed By: #### C BC #### [facility] [address] [place] [address] Dr. Tom Dotson IG # 0.02 10e3/ul Normal 0.00-0.03 [facility] Comment on above: Performed By: #### C BC #### [facility] [address] [place] [address] Dr. Tom Dotson IG % 0.3 % Normal 0.0-0.5 [facility] Comment on above: Performed By: #### C BC #### [facility] [address] [place] [address] Dr. Tom Dotson LYMPH # 1.4 103/ul Normal 1.2-3.8 [facility] Comment on above: Performed By: #### C BC #### [facility] [address] [place] [address] Dr. Tom Dotson Lymphocytes/100 WBC (Bld) 17.3 % Critically low 20.5-60.0 [facility] Comment on above: Performed By: #### C BC #### [facility] [address] [place] [address] Dr. Tom Dotson MANUAL DIFF REQ NO Normal [facility] Comment on above: Performed By: #### C BC #### [facility] [address] [place] [address] Dr. Tom Dotson MCH (RBC) [Entitic mass] 29.8 pg Normal 25.9-34.0 [facility] Comment on above: Performed By: #### C BC #### [facility] [address] [place] [address] Dr. Tom Dotson MCHC (RBC) [Mass/Vol] 32.8 g/dL Normal 29.9-35.2 [facility] Comment on above: Performed By: #### C BC #### [facility] [address] [place] [address] Dr. Tom Dotson MCV (RBC) [Entitic vol] 90.8 fL Normal 80.0-94.0 [facility] Comment on above: Performed By: #### C BC #### [facility] [address] [place] [address] Dr. Tom Dotson MONO # 0.7 103/ul Normal 0.3-0.8 [facility] Comment on above: Performed By: #### C BC #### [facility] [address] [place] [address] Dr. Tom Dotson Monocytes/100 WBC (Bld) 9.4 % Normal 1.7-12.0 [facility] Comment on above: Performed By: #### C BC #### [facility] [address] [place] [address] Dr. Tom Dotson NEUT # 5.7 103/ul Normal 1.4-6.5 [facility] Comment on above: Performed By: #### C BC #### [facility] [address] [place] [address] Dr. Tom Dotson Neutrophils/100 WBC (Bld) 72.2 % Normal 43.0-75.0 [facility] Comment on above: Performed By: #### C BC #### [facility] [address] [place] [address] Dr. Tom Dotson Platelet mean volume (Bld) [Entitic vol] 9.6 fL Normal 9.5-13.5 [facility] Comment on above: Performed By: #### C BC #### [facility] [address] [place] [address] Dr. Tom Dotson PLT 331 103/ul Normal 150-450 [facility] Comment on above: Performed By: #### C BC #### [facility] [address] [place] [address] Dr. Tom Dotson RBC 4.80 106/ul Normal 4.70-6.10 [facility] Comment on above: Performed By: #### C BC #### [facility] [address] [place] [address] Dr. Tom Dotson WBC 7.8 103/ul Normal 4.0-11.0 [facility] Comment on above: Performed By: #### C BC #### [facility] [address] [place] [address] Dr. Tom Dotson CULTURE BLOODon 09-25-2022 Microscopic examination of blood, culture Culture Observations: NO GROWTH AT 5 DAYS. Normal [facility] Comment on above: Performed By: #### I NFLUAB #### [facility] [address] [place] [address] Dr. Tom Dotson Microscopic examination of blood, culture Culture Observations: NO GROWTH AT 5 DAYS. Normal [facility] Comment on above: Performed By: #### I NFLUAB #### [facility] [address] [place] [address] Dr. Tom Dotson Covid-19 PCR (CVDTB)on SARS-CoV-2 (COVID-19) RNA OLGA+probe Ql (Unsp spec) Not detected Normal NOT DETECTED [facility] Comment on above: Result Comment: When diagnostic [...] for this test is supported by the [place] of [employer] and Human Service's declaration that [...] used). Performed By: #### C VDTBH #### [facility] [address] [place] [address] Dr. Tom Dotson INFLUENZA A AND B AGon 09-25 INFLUANEGH SEE BELOW Normal [facility] Comment on above: Result Comment: Nega tive for Flu A protein angiten. Infection due to Flu A cannot be ruled out. Flu A angiten in the sample may be below the detection limit of the test. Performed By: #### I NFLUAB #### [facility] [address] [place] [address] Dr. Tom Dotson INFLUBNEG SEE BELOW Normal [facility] Comment on above: Result Comment: Nega tive for Flu B protein antigen. Infection due to Flu B cannot be ruled out. Flu B antigen in the sample may be below the detection limit of the test. Performed By: #### I NFLUAB #### [facility] [address] [place] [address] Dr. Tom Dotson INFLUENZA A AG Negative Normal NEGATIVE SEE COMMENT [facility] Comment on above: Performed By: #### I NFLUAB #### [facility] [address] [address] [address] Tom Dotson INFLUENZA B AG Negative Normal NEGATIVE SEE COMMENT [facility] Comment on above: Performed By: #### I NFLUAB #### [facility] [address] [address] [address] Tom Dotson LACTATE/LACTIC ACIDon 2022 Lactate [Moles/Vol] 0.7 mmol/L Normal 0.4-1.9 [facility] Comment on above: Performed By: #### L ACT #### [facility] [address] [place] [address] Dr. Tom Dotson PROF CHEM 8 (BAS METB)on Anion gap [Moles/Vol] 9.3 mmol/L Normal [facility] Comment on above: Performed By: #### H STROPN, BMP, BNP #### [facility] [address] [place] [address] Dr. Tom Dotson Calcium [Mass/Vol] 8.8 mg/dL Normal 8.5-10.1 [facility] Comment on above: Performed By: #### H STROPN, BMP, BNP #### [facility] [address] [address] [address] Tom Dotson Chloride [Moles/Vol] 103 mmol/L Normal 98-107 [facility] Comment on above: Performed By: #### H STROPN, BMP, BNP #### [facility] [address] [address] [address] Tom Dotson CO2 [Moles/Vol] 31.1 mmol/L Normal 21.0-32.0 [facility] Comment on above: Performed By: #### H STROPN, BMP, BNP #### [facility] [address] [place] [address] Dr. Tom Dotson Creatinine [Mass/Vol] 0.77 mg/dL Normal 0.70-1.30 [facility] Comment on above: Performed By: #### H STROPN, BMP, BNP #### [facility] [address] [address] [address] Tom Dotson EGFR-AF [place] >60 Normal >=60 [facility] Comment on above: Performed By: #### H STROPN, BMP, BNP #### [facility] [address] [address] [address] Tom Dotson EGFR-NON AF [place] >60 Normal >=60 [facility] Comment on above: Performed By: #### H STROPN, BMP, BNP #### [facility] [address] [address] [address] Tom Dotson Glucose [Mass/Vol] 98 mg/dL Normal 74-106 [facility] Comment on above: Performed By: #### H STROPN, BMP, BNP #### [facility] [address] [address] [address] Tom Dotson Potassium [Moles/Vol] 4.4 mmol/L Normal 3.5-5.1 [facility] Comment on above: Performed By: #### H STROPN, BMP, BNP #### [facility] [address] [address] [address] Tom Dotson Sodium [Moles/Vol] 139 mmol/L Normal 136-145 [facility] Comment on above: Performed By: #### H STROPN, BMP, BNP #### [facility] [address] [address] [address] Tom Dotson Urea nitrogen [Mass/Vol] 13.0 mg/dL Normal 7.0-18.0 [facility] Comment on above: Performed By: #### H STROPN, BMP, BNP #### [facility] [address] [address] [address] Tom Dotson Urea nitrogen/Creatinine [Mass ratio] 16.9 mg/mg Normal [facility] Comment on above: Performed By: #### H STROPN, BMP, BNP #### [facility] [address] [place] [address] Dr. Tom Dotson TROPONIN, HIGH SENSITIVITYon 09-25-2022 HSTROP 7.4 pg/mL Normal 4.0-76.1 [facility] Comment on above: Result Comment: CUT- OFF POINTS HAVE BEEN ESTABLISHED BASED ON THE FOURTH UNIVERSAL DEFINITIONS OF MYOCARDIAL INFARCTION. THE UPPER REFERENCE LIMIT (URL) OF TROPONIN, DEFINED THE 99TH PERCENTILE OF cTnI DISTRIBUTION IN A REFERENCE POPULATION, HAS BEEN CONFIRMED THE DECISION THRESHOLD FOR GA DIAGNOSIS. Performed By: #### I NFLUAB #### [facility] [address] [place] [address] Dr. Tom Dotson XR CHEST 1 Von [...] YARIEL OLSON Date: 2022-09-25 10:55 Normal [facility] ASPERGILLUS AB, QUANTITATIVE DIDon 04-20-2022 Aspergillus flavus Negative Normal Neg:<1:1 [facility] Comment on above: Performed By: #### A SPDID #### [facility] [address] [place] [address] Dr. Tom Dotson Aspergillus fumigatus Negative Normal Neg:<1:1 [facility] Comment on above: Performed By: #### A SPDID #### [facility] [address] [place] [address] Dr. Tom Dotson Aspergillus niger Negative Normal Neg:<1:1 [facility] Comment on above: Performed By: #### A SPDID #### [facility] [address] [place] [address] Dr. Tom Dotson ANTI NEUTROPHIL CYTOPLASMIC AB (ANCA) PRon 04-19-2022 Anti-MPO Antibodies <0.2 Normal 0.0-0.9 [facility] Comment on above: Result Comment: Perf ormed at: BN Performed By: #### C BC #### [facility] [address] [place] [address] Dr. Tom Dotson Anti-PR3 Antibodies <0.2 Normal 0.0-0.9 [facility] Comment on above: Result Comment: Perf ormed at: BN Performed By: #### C BC #### [facility] [address] [place] [address] Dr. Tom Dotson Atypical pANCA <1:20 Normal Neg:<1:20 [facility] Comment on above: Result Comment: The atypical pANCA pattern has been observed in a significant percentage of patients with ulcerative colitis, primary sclerosing cholangitis and autoimmune hepatitis. Performed at: CB Performed By: #### C BC #### [facility] [address] [place] [address] Dr. Tom Dotson Cytoplasmic (C-ANCA) <1:20 Normal Neg:<1:20 [facility] Comment on above: Result Comment: Perf ormed at: CB Performed By: #### C BC #### [facility] [address] [place] [address] Dr. Tom Dotson Perinuclear (P-ANCA) <1:20 Normal Neg:<1:20 [facility] Comment on above: Result Comment: The presence of positive fluorescence exhibiting P-ANCA or C-ANCA patterns alone is not specific for the diagnosis of Nevin's Granulomatosis (WG) or microscopic polyangiitis. Decisions about treatment should not be based solely on ANCA IFA results. The International ANCA Group Consensus recommends follow up testing of positive sera with both NH-3 and MPO-ANCA enzyme immunoassays. As many as 5% serum samples are positive only by EIA. Ref. AM J Clin Pathol 1999;111:507-513. Performed at: CB Performed By: #### C BC #### [facility] [address] [place] [address] Dr. Tom Dotson IMMUNOGLOBULIN E, TOTALon Immunoglobulin E, Total 68 IU/mL Normal 6-495 [facility] Comment on above: Performed By: #### I RIAOT #### [facility] [address] [place] [address] Dr. Tom Dotson ANGIOTENSION-CONVERTING ENZY ME (ELINOR)on 04-17-2022 ELINOR 28 U/L Normal 14-82 [facility] Comment on above: Performed By: #### A NGIOC #### [facility] [address] [place] [address] Dr. Tom Dotson CBC AUTO DIFFon 04-16-2022 BASO # 0.1 103/ul Normal 0.0-0.1 [facility] Comment on above: Performed By: #### I NFLUAB #### [facility] [address] [place] [address] Dr. Tom Dotson Basophils/100 WBC (Bld) 1.0 % Normal 0.2-2.0 [facility] Comment on above: Performed By: #### I NFLUAB #### [facility] [address] [place] [address] Dr. Tom Dotson EO # 0.0 103/ul Normal 0.0-0.7 [facility] Comment on above: Performed By: #### I NFLUAB #### [facility] [address] [place] [address] Dr. Tom Dotson Eosinophils/100 WBC (Bld) 0.1 % Critically low 0.9-7.0 [facility] Comment on above: Performed By: #### I NFLUAB #### [facility] [address] [place] [address] Dr. Tom Dotson Erythrocyte distribution width (RBC) [Ratio] 12.9 % Normal 11.0-15.0 [facility] Comment on above: Performed By: #### I NFLUAB #### [facility] [address] [place] [address] Dr. Tom Dotson Hematocrit (Bld) [Volume fraction] 44.8 % Normal 42.0-54.0 [facility] Comment on above: Performed By: #### I NFLUAB #### [facility] [address] [place] [address] Dr. Tom Dotson Hemoglobin (Bld) [Mass/Vol] 15.0 g/dL Normal 14.0-18.0 [facility] Comment on above: Performed By: #### I NFLUAB #### [facility] [address] [place] [address] Dr. Tom Dotson IG # 0.02 10e3/ul Normal 0.00-0.03 [facility] Comment on above: Performed By: #### I NFLUAB #### [facility] [address] [address] [address] Tom Dotson IG % 0.2 % Normal 0.0-0.5 [facility] Comment on above: Performed By: #### I NFLUAB #### [facility] [address] [address] [address] Tom Dotson LYMPH # 1.4 103/ul Normal 1.2-3.8 [facility] Comment on above: Performed By: #### I NFLUAB #### [facility] [address] [address] [address] Tom Dotson Lymphocytes/100 WBC (Bld) 17.6 % Critically low 20.5-60.0 [facility] Comment on above: Performed By: #### I NFLUAB #### [facility] [address] [place] [address] Dr. Tom Dotson MANUAL DIFF REQ NO Normal [facility] Comment on above: Performed By: #### I NFLUAB #### [facility] [address] [address] [address] Tom Dotson MCH (RBC) [Entitic mass] 30.9 pg Normal 25.9-34.0 [facility] Comment on above: Performed By: #### I NFLUAB #### [facility] [address] [place] [address] Dr. Tom Dotson MCHC (RBC) [Mass/Vol] 33.5 g/dL Normal 29.9-35.2 [facility] Comment on above: Performed By: #### I NFLUAB #### [facility] [address] [address] [address] Tom Dotson MCV (RBC) [Entitic vol] 92.2 fL Normal 80.0-94.0 [facility] Comment on above: Performed By: #### I NFLUAB #### [facility] [address] [place] [address] Dr. Tom Dotson MONO # 0.8 103/ul Normal 0.3-0.8 [facility] Comment on above: Performed By: #### I NFLUAB #### [facility] [address] [address] [address] Tom Dotson Monocytes/100 WBC (Bld) 9.6 % Normal 1.7-12.0 [facility] Comment on above: Performed By: #### I NFLUAB #### [facility] [address] [address] [address] Tom Dotson NEUT # 5.9 103/ul Normal 1.4-6.5 [facility] Comment on above: Performed By: #### I NFLUAB #### [facility] [address] [place] [address] Dr. Tom Dotson Neutrophils/100 WBC (Bld) 71.5 % Normal 43.0-75.0 [facility] Comment on above: Performed By: #### I NFLUAB #### [facility] [address] [place] [address] Dr. Tom Dotson Platelet mean volume (Bld) [Entitic vol] 9.9 fL Normal 9.5-13.5 [facility] Comment on above: Performed By: #### I NFLUAB #### [facility] [address] [place] [address] Dr. Tom Dotson PLT 325 103/ul Normal 150-450 [facility] Comment on above: Performed By: #### I NFLUAB #### [facility] [address] [place] [address] Dr. Tom Dotson RBC 4.86 106/ul Normal 4.70-6.10 [facility] Comment on above: Performed By: #### I NFLUAB #### [facility] [address] [place] [address] Dr. Tom Dotson WBC 8.2 103/ul Normal 4.0-11.0 [facility] Comment on above: Performed By: #### I NFLUAB #### [facility] [address] [place] [address] LUNG CANCER SCREENINGon [...] YARIEL OLSON Date: 2022-04-10 22:57 Normal [facility] CBC AUTO DIFFon 03-06-2022 BASO # 0.1 103/ul Normal 0.0-0.1 [facility] Comment on above: Performed By: #### C BC #### [facility] [address] [place] [address] Dr. Tom Dotson Basophils/100 WBC (Bld) 1.0 % Normal 0.2-2.0 [facility] Comment on above: Performed By: #### C BC #### [facility] [address] [address] [address] Tom Dotson EO # 2.5 103/ul Critically high 0.0-0.7 [facility] Comment on above: Performed By: #### C BC #### [facility] [address] [address] [address] Tom Dotson Eosinophils/100 WBC (Bld) 29.1 % Critically high 0.9-7.0 [facility] Comment on above: Performed By: #### C BC #### [facility] [address] [place] [address] Dr. Tom Dotson Erythrocyte distribution width (RBC) [Ratio] 12.8 % Normal 11.0-15.0 [facility] Comment on above: Performed By: #### C BC #### [facility] [address] [place] [address] Dr. Tom Dotson Hematocrit (Bld) [Volume fraction] 46.6 % Normal 42.0-54.0 [facility] Comment on above: Performed By: #### C BC #### [facility] [address] [place] [address] Dr. Tom Dotson Hemoglobin (Bld) [Mass/Vol] 14.4 g/dL Normal 14.0-18.0 [facility] Comment on above: Performed By: #### C BC #### [facility] [address] [place] [address] Dr. Tom Dotson IG # 0.04 10e3/ul Critically high 0.00-0.03 [facility] Comment on above: Performed By: #### C BC #### [facility] [address] [place] [address] Dr. Tom Dotson IG % 0.5 % Normal 0.0-0.5 [facility] Comment on above: Performed By: #### C BC #### [facility] [address] [place] [address] Dr. Tom Dotson LYMPH # 1.3 103/ul Normal 1.2-3.8 [facility] Comment on above: Performed By: #### C BC #### [facility] [address] [place] [address] Dr. Tom Dotson Lymphocytes/100 WBC (Bld) 15.1 % Critically low 20.5-60.0 [facility] Comment on above: Performed By: #### C BC #### [facility] [address] [place] [address] Dr. Tom Dotson MANUAL DIFF REQ NO Normal [facility] Comment on above: Performed By: #### C BC #### [facility] [address] [place] [address] Dr. Tom Dotson MCH (RBC) [Entitic mass] 29.5 pg Normal 25.9-34.0 [facility] Comment on above: Performed By: #### C BC #### [facility] [address] [place] [address] Dr. Tom Dotson MCHC (RBC) [Mass/Vol] 30.9 g/dL Normal 29.9-35.2 [facility] Comment on above: Performed By: #### C BC #### [facility] [address] [place] [address] Dr. Tom Dotson MCV (RBC) [Entitic vol] 95.5 fL Critically high 80.0-94.0 [facility] Comment on above: Performed By: #### C BC #### [facility] [address] [place] [address] Dr. Tom Dotson MONO # 0.8 103/ul Normal 0.3-0.8 [facility] Comment on above: Performed By: #### C BC #### [facility] [address] [place] [address] Dr. Tom Dotson Monocytes/100 WBC (Bld) 9.5 % Normal 1.7-12.0 [facility] Comment on above: Performed By: #### C BC #### [facility] [address] [place] [address] Dr. Tom Dotson NEUT # 3.9 103/ul Normal 1.4-6.5 [facility] Comment on above: Performed By: #### C BC #### [facility] [address] [place] [address] Dr. Tom Dotson Neutrophils/100 WBC (Bld) 44.8 % Normal 43.0-75.0 [facility] Comment on above: Performed By: #### C BC #### [facility] [address] [place] [address] Dr. Tom Dotson Platelet mean volume (Bld) [Entitic vol] 10.2 fL Normal 9.5-13.5 [facility] Comment on above: Performed By: #### C BC #### [facility] [address] [place] [address] Dr. Tom Dotson PLT 328 103/ul Normal 150-450 [facility] Comment on above: Performed By: #### C BC #### [facility] [address] [place] [address] Dr. Tom Dotson RBC 4.88 106/ul Normal 4.70-6.10 [facility] Comment on above: Performed By: #### C BC #### [facility] [address] [place] [address] Dr. Tom Dotson WBC 8.7 103/ul Normal 4.0-11.0 [facility] Comment on above: Performed By: #### C BC #### [facility] [address] [place] [address] Dr. Tom Dotson DIFFERENTIAL MANUALon 2021 ATYPICAL LYMPH # 0.09 103/ul Normal [facility] Comment on above: Performed By: #### D IFF #### [facility] [address] [place] [address] Dr. Tom Dotson ATYPICAL LYMPH % 1 % Normal [facility] Comment on above: Performed By: #### D IFF #### [facility] [address] [place] [address] Dr. Tom Dotson BAND # 0.0 103/ul Normal 0.0-0.3 [facility] Comment on above: Performed By: #### D IFF #### [facility] [address] [place] [address] Dr. Tom Dotson BAND % 0 % Normal 0-5 [facility] Comment on above: Performed By: #### D IFF #### [facility] [address] [place] [address] Dr. Tom Dotson BASOM # 0.00 103/ul Normal 0.00-0.10 [facility] Comment on above: Performed By: #### D IFF #### [facility] [address] [place] [address] Dr. Tom Dotson BASOM % 0.0 % Critically low 0.2-2.0 [facility] Comment on above: Performed By: #### D IFF #### [facility] [address] [place] [address] Dr. Tom Dotson BLAST # Normal [facility] Comment on above: Performed By: #### D IFF #### [facility] [address] [place] [address] Dr. Tom Dotson BLAST % Normal [facility] Comment on above: Performed By: #### D IFF #### [facility] [address] [place] [address] Dr. Tom Dotson CORRECTED WBC Normal 4.0-11.0 [facility] Comment on above: Performed By: #### D IFF #### [facility] [address] [place] [address] Dr. Tom Dotson EOS # 1.22 103/ul Critically high 0.00-0.70 [facility] Comment on above: Performed By: #### D IFF #### [facility] [address] [place] [address] Dr. Tom Dotson EOS% 14.0 % Critically high 0.9-7.0 [facility] Comment on above: Performed By: #### D IFF #### [facility] [address] [place] [address] Dr. Tom Dotson LYMPHM # 1.91 103/ul Normal 1.20-3.80 [facility] Comment on above: Performed By: #### D IFF #### [facility] [address] [place] [address] Dr. Tom Dotson LYMPHM% 22.0 % Normal 20.5-60.0 [facility] Comment on above: Performed By: #### D IFF #### [facility] [address] [place] [address] Dr. Tom Dotson METAMYELOCYTE # Normal [facility] Comment on above: Performed By: #### D IFF #### [facility] [address] [place] [address] Dr. Tom Dotson METAMYELOCYTE % Normal [facility] Comment on above: Performed By: #### D IFF #### [facility] [address] [place] [address] Dr. Tom Dotson MONOM# 0.52 103/ul Normal 0.30-0.80 [facility] Comment on above: Performed By: #### D IFF #### [facility] [address] [place] [address] Dr. Tom Dotson MONOM% 6.0 % Normal 1.7-12.0 [facility] Comment on above: Performed By: #### D IFF #### [facility] [address] [place] [address] Dr. Tom Dotson MYELOCYTE # Normal [facility] Comment on above: Performed By: #### D IFF #### [facility] [address] [place] [address] Dr. Tom Dotson MYELOCYTE % Normal [facility] Comment on above: Performed By: #### D IFF #### [facility] [address] [place] [address] Dr. Tom Dotson NRBC Normal [facility] Comment on above: Performed By: #### D IFF #### [facility] [address] [place] [address] Dr. Tom Dotson SEG # 4.96 103/ul Normal 1.40-6.50 [facility] Comment on above: Performed By: #### D IFF #### [facility] [address] [place] [address] Dr. Tom Dotson SEG % 57.0 % Normal 43.0-75.0 [facility] Comment on above: Performed By: #### D IFF #### [facility] [address] [place] [address] Dr. Tom Dotson WBC 8.7 103/ul Normal 4.0-11.0 [facility] Comment on above: Performed By: #### D IFF #### [facility] [address] [place] [address] Dr. Tom Dotson LIPID PROFILEon 06-15-2022 CHOL-HDL RATIO NORM SEE BELOW Normal [facility] Comment on above: Result Comment: 3.3 - 4.4 LOW RISK 4.4 - 7.1 AVERAGE RISK 7.1 - 11.0 MODERATE RISK >11.0 HIGH RISK Performed By: #### I NFLUAB #### [facility] [address] [address] [address] Tom Dotson Cholesterol [Mass/Vol] 135 mg/dL Normal <=200 [facility] Comment on above: Performed By: #### I NFLUAB #### [facility] [address] [address] [address] Tom Dotson Cholesterol in HDL [Mass/Vol] 51 mg/dL Normal 40-60 [facility] Comment on above: Performed By: #### I NFLUAB #### [facility] [address] [address] [address] Tom Dotson Cholesterol in LDL [Mass/Vol] 74.4 mg/dL Normal [facility] Comment on above: Performed By: #### I NFLUAB #### [facility] [address] [address] [address] Tom Dotson Cholesterol.total/Ch olesterol in HDL [Mass ratio] 2.6 {ratio} Normal [facility] Comment on above: Performed By: #### I NFLUAB #### [facility] [address] [address] [address] Tom Dotson HDL NORMAL > or = 60 mg/dl - LO W CARDIOVASCULAR RISK <40 mg/dl - HIGH CARDIOVASCULAR RISK Normal [facility] Comment on above: Performed By: #### I NFLUAB #### [facility] [address] [address] [address] Tom Dotson LDL CALC NORMAL SEE BELOW Normal [facility] Comment on above: Result Comment: <100 mg/dl OPTIMAL 100 - 129 mg/dl NEAR OR ABOVE OPTIMAL 130 - 159 mg/dl BORDERLINE HIGH 160 - 189 mg/dl HIGH >190 mg/dl VERY HIGH Performed By: #### I NFLUAB #### [facility] [address] [address] [address] Tom Dotson Triglyceride [Mass/Vol] 48 mg/dL Normal <=150 [facility] Comment on above: Performed By: #### I NFLUAB #### [facility] [address] [place] [address] Dr. Tom Dotson VLDL CALC 9.6 mg/dL Normal [facility] Comment on above: Performed By: #### I NFLUAB #### [facility] [address] [place] [address] Dr. Tom Dotson PROF 14(COMP METB)on 022 Albumin [Mass/Vol] 3.8 g/dL Normal 3.4-5.0 [facility] Comment on above: Performed By: #### I NFLUAB #### [facility] [address] [place] [address] Dr. Tom Dotson Albumin/Globulin [Mass ratio] 1.1 {ratio} Normal [facility] Comment on above: Performed By: #### I NFLUAB #### [facility] [address] [place] [address] Dr. Tom Dotson ALP [Catalytic activity/Vol] 62 U/L Normal 46-116 [facility] Comment on above: Performed By: #### I NFLUAB #### [facility] [address] [place] [address] Dr. Tom Dotson ALT [Catalytic activity/Vol] 25 U/L Normal 16-63 [facility] Comment on above: Performed By: #### I NFLUAB #### [facility] [address] [place] [address] Dr. Tom Dotson Anion gap [Moles/Vol] 9.8 mmol/L Normal [facility] Comment on above: Performed By: #### I NFLUAB #### [facility] [address] [place] [address] Dr. Tom Dotson AST [Catalytic activity/Vol] 15 U/L Normal 15-37 [facility] Comment on above: Performed By: #### I NFLUAB #### [facility] [address] [place] [address] Dr. Tom Dotson Bilirubin [Mass/Vol] 0.9 mg/dL Normal 0.2-1.0 [facility] Comment on above: Performed By: #### I NFLUAB #### [facility] [address] [place] [address] Dr. Tom Dotson Calcium [Mass/Vol] 8.8 mg/dL Normal 8.5-10.1 [facility] Comment on above: Performed By: #### I NFLUAB #### [facility] [address] [address] [address] Tom Dotson Chloride [Moles/Vol] 102 mmol/L Normal 98-107 [facility] Comment on above: Performed By: #### I NFLUAB #### [facility] [address] [place] [address] Dr. Tom Dotson CO2 [Moles/Vol] 30.5 mmol/L Normal 21.0-32.0 [facility] Comment on above: Performed By: #### I NFLUAB #### [facility] [address] [place] [address] Dr. Tom Dotson Creatinine [Mass/Vol] 0.95 mg/dL Normal 0.70-1.30 [facility] Comment on above: Performed By: #### I NFLUAB #### [facility] [address] [place] [address] Dr. Tom Dotson EGFR-AF [place]I >60 Normal >=60 [facility] Comment on above: Performed By: #### I NFLUAB #### [facility] [address] [place] [address] Dr. Tom Dotson EGFR-NON AF [place] >60 Normal >=60 [facility] Comment on above: Performed By: #### I NFLUAB #### [facility] [address] [place] [address] Dr. Tom Dotson Globulin (S) [Mass/Vol] 3.4 g/dL Normal [facility] Comment on above: Performed By: #### I NFLUAB #### [facility] [address] [place] [address] Dr. Tom Dotson Glucose [Mass/Vol] 85 mg/dL Normal 74-106 [facility] Comment on above: Performed By: #### I NFLUAB #### [facility] [address] [address] [address] Tom Dotson Potassium [Moles/Vol] 4.3 mmol/L Normal 3.5-5.1 [facility] Comment on above: Performed By: #### I NFLUAB #### [facility] [address] [address] [address] Tom Dotson Protein [Mass/Vol] 7.2 g/dL Normal 6.4-8.2 [facility] Comment on above: Performed By: #### I NFLUAB #### [facility] [address] [place] [address] Dr. Tom Dotson Sodium [Moles/Vol] 138 mmol/L Normal 136-145 [facility] Comment on above: Performed By: #### I NFLUAB #### [facility] [address] [place] [address] Dr. Tom Dotson Urea nitrogen [Mass/Vol] 14.0 mg/dL Normal 7.0-18.0 [facility] Comment on above: Performed By: #### I NFLUAB #### [facility] [address] [place] [address] Dr. Tom Dotson Urea nitrogen/Creatinine [Mass ratio] 14.7 mg/mg Normal [facility] Comment on above: Performed By: #### I NFLUAB #### [facility] [address] [place] [address] Dr. Tom Dotson TSHon 03-06-2022 TSH 1.010 uIU/mL Normal 0.358-3.740 [facility] Comment on above: Performed By: #### I NFLUAB #### [facility] [address] [place] [address] Dr. Tom Dotson Hepatic Panelon 09-02-2019 Albumin [Mass/Vol] 3.2 g/dL Normal 3.2-5.5 [facility] Comment on above: Performed By: #### H EPATIC, LIPID, TSH3 wRFLX, [id number] #### [facility] [address] [place] [address] Albumin/Globulin [Mass ratio] 1.1 {ratio} Normal [facility] Comment on above: Performed By: #### H EPATIC, LIPID, TSH3 wRFLX, [id number] #### [facility] [address] [place] [address] ALP [Catalytic activity/Vol] 38 U/L Normal 32-92 [facility] Comment on above: Performed By: #### H EPATIC, LIPID, TSH3 wRFLX, [id number] #### [address] ALT [Catalytic activity/Vol] 14 U/L Normal 10-60 [facility] Comment on above: Performed By: #### H EPATIC, LIPID, TSH3 wRFLX, [id number] #### [facility] [address] [place] [address] AST [Catalytic activity/Vol] 13 U/L Normal 10-42 [facility] Comment on above: Performed By: #### H EPATIC, LIPID, TSH3 wRFLX, [id number] #### [address] Bilirubin [Mass/Vol] 0.9 mg/dL Normal 0.3-1.2 [facility] Comment on above: Performed By: #### H EPATIC, LIPID, TSH3 wRFLX, [id number] #### [facility] [address] [place] [address] [place] Bilirubin,Indirect 0.8 mg/dL Normal [facility] Comment on above: Performed By: #### H EPATIC, LIPID, TSH3 wRFLX, [id number] #### [place] [address] [place] Bilirubin.direct [Mass/Vol] 0.1 mg/dL Normal 0.0-0.4 [facility] Comment on above: Performed By: #### H EPATIC, LIPID, TSH3 wRFLX, [id number] #### [address] [place] [address] [place] Globulin (S) [Mass/Vol] 2.9 g/dL Normal [facility] Comment on above: Performed By: #### H EPATIC, LIPID, TSH3 wRFLX, [id number] #### [facility] [address] [id number] [facility] Protein [Mass/Vol] 6.1 g/dL Normal 6.1-7.9 [facility] Comment on above: Performed By: #### H EPATIC, LIPID, TSH3 wRFLX, [id number] #### [address] Lipid Panelon 09-02-2019 Cholesterol [Mass/Vol] 158 mg/dL Normal 140-200 [facility] Comment on above: Result Comment: Chol less than 200 mg/dl low risk Chol 201-239 mg/dl borderline risk Chol 240 mg/dl and greater high risk Performed By: #### H EPATIC, LIPID, TSH3 wRFLX, [id number] #### [address] Cholesterol in HDL [Mass/Vol] 61 mg/dL Normal 29-71 [facility] Comment on above: Result Comment: HDL CHOL ATP-III CLASSIFICATION Cardiovascular Risk HDL > or equal to 60 mg/dL LOW HDL < 40 mg/dL HIGH Performed By: #### H EPATIC, LIPID, TSH3 wRFLX, [id number] #### [facility] [address] [place] [address] Cholesterol.total/Ch olesterol in HDL [Mass ratio] 2.6 {ratio} Normal <5.0 [facility] Comment on above: Performed By: #### H EPATIC, LIPID, TSH3 wRFLX, [id number] #### [facility] [address] [place] [address] LDL Cholesterol,Calculat ed 84 mg/dL Normal 0-100 [facility] Comment on above: Result Comment: LDL ATP III CLASSIFICATION LDL less than 100 mg/dL Optimal LDL 100-129 mg/dL Near or above optimal LDL 130-159 mg/dL Borderline high LDL 160-189 mg/dL High LDL greater than 189 mg/dL Very high Performed By: #### H EPATIC, LIPID, TSH3 wRFLX, [id number] #### [facility] [address] Triglyceride w/Reflex 63 mg/dL Normal 35-149 [facility] Comment on above: Result Comment: TRIG ATP III CLASSIFICATION TRIG less than 150 mg/dL Normal TRIG 150-199 mg/dL Borderline high TRIG 200-500 mg/dL High TRIG greater than 500 mg/dL Very high Standard traceable to the Center for Disease Conrtrol and Prevention (CDC) test method. Performed By: #### H EPATIC, LIPID, TSH3 wRFLX, [id number] #### [facility] [address] VLDL CHOLESTEROL 12 mg/dL Normal [facility] Comment on above: Performed By: #### H EPATIC, LIPID, TSH3 wRFLX, [id number] #### [facility] [address] Thyroid Stim Hormone w/Rflxo n 09-02-2019 Thyroid Stim Hormone w/Rflx 1.92 u[iU]/mL Normal 0.45-5.33 [facility] Comment on above: Performed By: #### H EPATIC, LIPID, TSH3 wRFLX, [id number] #### [facility] [address] [place] [address] Vitamin D 25 Hydroxy Totalon 09-02-2019 Vitamin D 25 Hydroxy Total 11.9 ng/mL Low 30-100 [facility] Comment on above: Result Comment: DAE MIN D STATUS 25(OH)VITAMIN D RANGE (ng/mL) Deficient <20 Insufficient 20 to <30 Sufficient 30 to 100 Reference: Darrion MF,Zane NC, Hanna AVELAR, et al. Evaluation,treatment, and prevention of vitamin D deficiency; an Endocrine Society clinical practice guideline. JCEM. 2010; 96(7):1911-30. PERFORMED BY: [place] [address] PATHOLOGIST SUPERVISOR BONDING MIGUELINA FLOOD M.D. Performed By: #### H EPATIC, LIPID, TSH3 wRFLX, [id number] #### [facility] [address] Vital Signs Date Time Vital Sign Value Performing Clinician Madan mayer 10-30-2023 10:00-0500 Body height 185.4 cm Azul Maria Luzz CAGE CLERK Work Phone: [facility] 10-30-2023 10:00-0500 Body mass index (BMI) [Ratio] 26.84 kg/m2 Azul Aichholz CAGE CLERK Work Phone: [facility] 10-30-2023 10:00-0500 Body temperature 97.11 [degF] Azul Aichholz CAGE CLERK Work Phone: [facility] 10-30-2023 10:00-0500 Body weight 92.26 kg Azul Aichholz CAGE CLERK Work Phone: [facility] 10-30-2023 10:00-0500 Diastolic blood pressure 78 mm[Hg] Azul Aichholz CAGE CLERK Work Phone: [facility] 10-30-2023 10:00-0500 Heart rate 83 /min Azul Aichholz CAGE CLERK Work Phone: [facility] 10-30-2023 10:00-0500 Respiratory rate 16 /min Azul Aichholz CAGE CLERK Work Phone: [facility] 10-30-2023 10:00-0500 SaO2% (BldA) [Mass fraction] 94 % Azul Leidyhholz CAGE CLERK Work Phone: [facility] 10-30-2023 10:00-0500 Systolic blood pressure 138 mm[Hg] Azul Aichholz CAGE CLERK Work Phone: [facility] Encounters Encounter Date Encounter Type Care Provider Facility Start: 11-13-2023 End: 11-13-2023 ambulatory AZUL AICHHOLZ Not Available Start: 10-30-2023 End: 10-30-2023 ambulatory AZUL AICHHOLZ Not Available Start: 10-30-2023 End: 10-30-2023 Office outpatient visit 15 minutes Azul Quezada NP Work Phone: [facility] Comment on above: Influenza (Primary D x); Marijuana abuse; Smoker; BMI 26.0-26.9,adult; Centrilobular emphysema ([facility]/HCC) Start: 10-21-2023 [facility] Result Encounter Generic External Data Provider [facility] Unsolicited Start: 10-21-2023 Clinisync Result Encounter Generic External Data Provider [facility] Unsolicited Start: 09-25-2022 End: 09-25-2022 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 Facility:H1 Start: 04-16-2022 End: 04-17-2022 ambulatory [facility] Facility:[facility]1 Start: 04-10-2022 End: 04-11-2022 ambulatory [facility] Facility:[facility] Start: 03-06-2022 End: 03-07-2022 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 Tom Dotson Plan of Treatment Date Care Activity Detail Author Start: 08-04-2024 Screening for malign ant neoplasm of colon [facility] Start: 03-21-2024 Influenza vaccination Influenza Vacc ine (#1) [facility] Comment on above: Postponed from 05/23 (Patient Refused) Start: 11-13-2023 End: 11-13-2023 Patient encounter procedure 11/13/2023 9:40 AM EST Office Visit [facility] [address] [place] [id number] Azul Quezada NP [address] [place] [id number] [facility] Start: 10-30-2023 End: 10-30-2023 Patient encounter procedure 10/30/2023 10:00 AM EST Office Visit [facility] [address] [place] [id number] Azul Quezada, ORACIO [address] [place] [address] [facility] Start: 2023 Influenza vaccination Influenza Vacc ine (#1) [facility] Start: 1960 Medicare Annual Well ness (AWV) Medicare Annual Wellness (AWV) [facility] Start: 1960 Screening for malign ant neoplasm of colon [facility] BLOOD CULTURE 1 BLOOD CULTURE 1 Lab Routine 10/21/2023 12:27 PM EST [facility] BLOOD CULTURE 2 BLOOD CULTURE 2 Lab Routine 10/21/2023 12:30 PM EST [facility] Immunizations Immunization Date Immunization Notes Care Provider Fa [facility] 2020 influenza, live, intranasal, quadrivalent Azul Quezada CAGE CLERK Work Phone: [facility] 2020 influenza virus vacc ine, unspecified formulation Generic Provider [facility] 08-04-2019 influenza, high dose seasonal, preservative-free Azul Quezada CAGE CLERK Work Phone: [facility] Payers Date Payer Category Payer Medicare [id number] 1993 Medicare [id number] 1960 Unknown [id number] [id number] 1960 Unknown [id number] 2.16.84 [id number] 1960 Unknown [id number] 2.16.84 [id number] 1960 Unknown [id number] 2.16.84 [id number] 1960 Unknown [id number] 2.16.84 [id number] 1960 Unknown [id number] 2.16.84 [id number] 1959 Medicaid [id number] 1959 Unknown [id number] Social History Date Type Detail Facility Tobacco smoking stat [facility] Tobacco smoking consumption unknown [facility] Start: 1960 Sex Assigned At Not on file [facility] Start: 10-30-2023 Gender identity Not on file [facility] Start: 10-30-2023 Tobacco smoking stat [facility] Ex-smoker [facility] End: 03-22-2019 History of tobacco use Current smoker [facility] End: 03-22-2019 History of tobacco use Cigarette Smoker [facility] Start: 10-30-2023 Cigarettes smoked cu rrent (pack per day) - Reported 1 [facility] Start: 10-30-2023 Tobacco use and exposure Smokeless t obacco non-user [facility] Start: 10-30-2023 Alcohol intake Current drinke r of alcohol (finding) [facility] Start: 10-28-2023 Alcohol Comment coffee more th an 4 cups per day [facility] History of Present illness Narrative 10-30-2023 Azul Quezada NP - 10/30/2023 11:06 AM Elvis Quezada NP - 10/30/2023 11:05 AM RACHEL NOBLE - 10/30/2023 10:00 AM Elvis Quezada NP - 10/30/2023 10:00 AM EST Note Date & Type Note Facility 10-30-2023 History of Presen t illness Narrative Associated Problem(s): Influenza Continues to slowly improve, recommend flu shot pt did not get this Fatigue remains, will see back in office in 2 weeks and remains off work Associated Problem(s): Centrilobular emphysema (CMS/HCC) Continue with Samsa, as well as current inhalers Was in the hospital x2 in less then a month of SOB. He had influenza the last time and the hospital kept him for three days. Tired and exhausted Very SOB Stuffy Images from the original note were not included. Sam Kramer is a 63 y.o. male presents with chief complaint of No chief complaint on file. HPI: Recent hospitalization at [facility] for 3 days d/t influenza. Does report that breathing is somewhat better, not a lot of mucus, or wheeze, mostly fatigue. No other new complaints. No fever or hemoptysis noted SUBJECTIVE: MEDICATIONS: Current Outpatient Medications Medication Instructions albuterol HFA 90 mcg/act inhaler 2 puffs, Inhalation, Every 4 hours PRN albuterol 2.5 mg, Nebulization, 4 times daily PRN aspirin 81 mg, Oral, Daily atorvastatin (LIPITOR) 40 mg, Oral, Daily budesonide-formoterol (Symbicort) 160-4.5 MCG/ACT inhaler 2 puffs, Inhalation, 2 times daily RT, Rinse mouth with water after use to reduce aftertaste and incidence of candidiasis. Do not swallow. FLUoxetine (PROZAC) 10 mg, Oral, Daily tiotropium (Spiriva Respimat) 2.5 MCG/ACT inhaler 2 puffs, Inhalation, Daily traZODone (DESYREL) 50 mg, Oral, Nightly triamcinolone (Nasacort) 55 MCG/ACT nasal inhaler 2 sprays, Each Nostril, Daily ALLERGIES: Allergies Allergen Reactions Bee Venom Unknown REVIEW OF SYMPTOMS: Review of Systems Constitutional: Positive for fatigue. Negative for activity change, appetite change, fever and unexpected weight change. HENT: Negative for ear pain, nosebleeds, sneezing, trouble swallowing and voice change. Eyes: Negative for pain, discharge and visual disturbance. Respiratory: Positive for cough, shortness of breath and wheezing. Negative for apnea and chest tightness. Cardiovascular: Negative for leg swelling. Gastrointestinal: Negative for abdominal distention, blood in stool, constipation and diarrhea. Genitourinary: Negative for decreased urine volume, difficulty urinating, dysuria and hematuria. Skin: Negative for color change. Neurological: Negative for dizziness, tremors and seizures. Psychiatric/Behavioral: Negative for agitation, decreased concentration, hallucinations, self-injury and suicidal ideas. The patient is nervous/anxious. Hematological: Negative for adenopathy. Does not bruise/bleed easily. Endocrine: Negative for cold intolerance, heat intolerance, polydipsia and polyuria. Allergic/Immunologic: Negative for environmental allergies and food allergies. PAST MEDICAL HISTORY Past Medical History: Diagnosis Date Alcohol abuse Allergic rhinitis Bilateral carotid artery stenosis Calcified lymph nodes Centrilobular emphysema ([facility]) COVID-19 07/2019 CVA (cerebral vascular accident) ([facility]) Degenerative cervical disc Depression with anxiety Insomnia Marijuana abuse 10/30/2023 Multiple pulmonary nodules Neck mass 2013 Osteoarthritis Papule of skin Pigmented skin lesion of uncertain nature Rheumatic fever Stroke ([facility]) 07/2020 Testicle lump Tourette's ([facility]) Vertebral artery occlusion Vocal cord polyp Past Surgical History: Procedure Laterality Date ADENOIDECTOMY CAROTID STENT Right 09/2019 stent, RT carotid CT GUIDED TRANSVAGINAL TRANSRECTAL FLUID DRAIN 06/09/2020 CT GUIDED TRANSVAGINAL TRANSRECTAL FLUID DRAIN 06/09/2020 OTHER SURGICAL HISTORY Removal of Polyp Vocal area and Vocal Cord cyst [facility] EXCISION THYROGLOSSAL DUCT CYST/SINUS Procedure:DL, e/o thyroglossal duct cyst;Disease:neck mass TONSILLECTOMY family history includes Asthma in his mother; Diabetes in his mother; Heart attack in his father; Hypertension in his mother. OBJECTIVE: Visit Vitals BP 138/78 (BP Location: Right arm, Patient Position: Sitting, BP Cuff Size: Large adult) Pulse 83 Temp 97.1 F (Temporal) Resp 16 Ht 6' 1 Wt 203 lb 6.4 oz SpO2 94% BMI 26.84 kg/m Smoking Status Former BSA 2.18 m Physical Exam Vitals reviewed. Constitutional: Appearance: Normal appearance. HENT: Head: Normocephalic. Right Ear: Tympanic membrane and external ear normal. There is impacted cerumen (removed with spatula). Left Ear: Tympanic membrane and external ear normal. Nose: Nose normal. Comments: palor Mouth/Throat: Mouth: Mucous membranes are moist. Pharynx: Oropharynx is clear. Eyes: Extraocular Movements: Extraocular movements intact. Conjunctiva/sclera: Conjunctivae normal. Cardiovascular: Rate and Rhythm: Normal rate and regular rhythm. Pulses: Normal pulses. Heart sounds: Normal heart sounds. Pulmonary: Comments: Slightly tachypneaic Diminished, few wheeze upper lobes bilat Abdominal: General: Bowel sounds are normal. Palpations: Abdomen is soft. Musculoskeletal: Cervical back: Neck supple. Lymphadenopathy: Cervical: No cervical adenopathy. Skin: General: Skin is warm and dry. Capillary Refill: Capillary refill takes 2 to 3 seconds. Neurological: General: No focal deficit present. Mental Status: He is alert. Psychiatric: Mood and Affect: Mood normal. Behavior: Behavior normal. Thought Content: Thought content normal. Judgment: Judgment normal. ASSESSMENT AND PLAN: No follow-ups on file. Problem List Items Addressed This Visit Smoker Centrilobular emphysema (CMS/HCC) - Primary Continue with Samsa, as well as current inhalers Marijuana abuse BMI 26.0-26.9,adult Influenza Continues to slowly improve, recommend flu shot pt did not get this Fatigue remains, will see back in office in 2 weeks and remains off work documented in this encounter [facility] Evaluation note Note Date & Type Note Facility Evaluation note Diagnosis Influenza- Primary Influenza with other respiratory manifestations Marijuana abuse Nondependent cannabis abuse, unspecified Smoker Tobacco use disorder BMI 26.0-26.9,adult Centrilobular emphysema (CMS/HCC) documented in this encounter [facility] Summary Purpose Family History No Family History Records FoundNo Family History Records FoundNo Family History Records Found Advance Directives No Advanced Directives Records FoundNo Advanced Directives Records FoundNo Advanced Directives Records Found Additional Source Comments (unrecognized sect ion and content) No Status Records FoundNo Status Records FoundNo Status Records Found INFORMATION SOURCE (unrecogn ized section and content) DATE CREATED AUTHOR 09/04/2019 [facility] DATE CREATED AUTHOR AUTHOR'S ORGANIZ ATION 09/30/2022 [facility] DATE CREATED AUTHOR AUTHOR'S ORGANIZ ATION 11/21/2023 [facility] Care Teams (unrecognized sec tion and content) 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 [facility]. provides no warranty or guarantee of the accuracy or completeness of information in this document.
[2023-11-30 19:35] LABS: Atypical Lymphocytes Abs Man 0.21; Basophils Abs Manual 0.21 10^3/uL (0.00-0.10); Lymphocytes Absolute Manual 0.42 10^3/uL (1.20-3.80); Segmented Neut Absolute Manual 18.27 10^3/uL (1.4-6.5); Toxic Granulation 4+
[2023-11-30 19:36] LABS: Hypersegmented Neutrophils 1+
[2023-11-30 19:37] LABS: Lactate/Lactic Acid 0.8 mmol/L (0.4-2.0)
[2023-11-30 19:39] LABS: Adenovirus NOT DETECTED (NOT DETECTE); Bordetella parapertussis NOT DETECTED (NOT DETECTE); Coronavirus 229E NOT DETECTED (NOT DETECTE); Coronavirus HKU1 NOT DETECTED (NOT DETECTE); Coronavirus NL63 NOT DETECTED (NOT DETECTE); Coronavirus OC43 NOT DETECTED (NOT DETECTE); Human Metapneumovirus NOT DETECTED (NOT DETECTE); Human Rhinovirus/Enterovirus NOT DETECTED (NOT DETECTE); Influenza A NOT DETECTED (NOT DETECTE); Influenza B NOT DETECTED (NOT DETECTE); Mycoplasma pneumoniae NOT DETECTED (NOT DETECTE); Parainfluenza Virus 1 NOT DETECTED (NOT DETECTE); Parainfluenza Virus 2 NOT DETECTED (NOT DETECTE); Parainfluenza Virus 3 NOT DETECTED (NOT DETECTE); Parainfluenza Virus 4 NOT DETECTED (NOT DETECTE); Respiratory Syncytial Virus NOT DETECTED (NOT DETECTE); SARS-CoV-2 NOT DETECTED (NOT DETECTE)
[2023-11-30 19:44] LABS: Alanine Aminotransferase 18 U/L (16-63); Albumin Globulin Ratio 0.8; Albumin Level 3.2 g/dL (3.4-5.0); Alkaline Phosphatase 71 U/L (46-116); Anion Gap 11.7; Aspartate Amino Transferase 15 U/L (15-37); BUN Creatinine Ratio 13.9; Bilirubin Total 1.1 mg/dL (0.2-1.0); Calcium 8.6 mg/dL (8.5-10.1); Chloride 101 mmol/L (98-107); Estimated GFR (African America >60 (>=60); Estimated GFR (Non-African Ame >60 (>=60); Globulin 4.2 g/dL; Glucose 102 mg/dL (74-106); Potassium 3.7 mmol/L (3.5-5.1); Sodium 136 mmol/L (136-145); Total Protein 7.4 g/dL (6.4-8.2); Troponin I High Sensitivity 6.4 pg/mL (4.0-76.1)
--- OUTSIDE RECORDS SUMMARY | 2023-11-30 23:02 | XMS_ITS | CCD ---
Author Name Unknown Address [id number] [place] [address] Organization [facility] Care Team Providers Care Representative Name Role Phone SAMSA, JAMESON Admitting Unavailable SAMSA, JAMESON Attending Unavailable AICHHOLZ, DATA MIGRATION LEAD AZUL Referring Unavailable AICHHOLZ, DATA MIGRATION LEAD AZUL Primary Care Unavailable SAMSA, JAMESON Consulting Unavailable AICHHOLZ, DATA MIGRATION LEAD AZUL Admitting Unavailable AICHHOLZ, DATA MIGRATION LEAD AZUL Attending Unavailable AICHHOLZ, DATA MIGRATION LEAD AZUL Primary Care Unavailable AICHHOLZ, DATA MIGRATION LEAD AZUL Consulting Unavailable SAMSA, JAMESON Admitting Unavailable SAMSA, JAMESON Attending Unavailable AICHHOLZ, DATA MIGRATION LEAD AZUL Primary Care Unavailable ZIEBALMA, DR YARIEL Figueroa Consulting Unavailable SAMSA, JAMESON Consulting Unavailable AICHHOLZ, DATA MIGRATION LEAD AZUL Primary Care Unavailable DAREN, DR MAURO Admitting Unavailable DAREN, DR MAURO Attending Unavailable WHITNEY, DR YARIEL Figueroa Consulting Unavailable DAREN, DR MAURO Consulting Unavailable Kiko Zurita MD Primary Care Provider Damien CODIFIER, Azul Unavailable Kiko Zurita MD Primary Care [...] (Bld) [Mass/Vol] 42.0 pg/mL Normal <=900.0 [facility] Comment on above: Performed By: #### I NFLUAB #### [facility] [address] [place] [address] Dr. Tom Dotson CBC AUTO DIFFon 09-25-2022 BASO # 0.1 103/ul Normal 0.0-0.1 [facility] Comment on above: Performed By: #### C BC #### [facility] [address] [place] [address] Dr. Tom Dotson Basophils/100 WBC (Bld) 0.8 % Normal 0.2-2.0 [facility] Comment on above: Performed By: #### C BC #### [facility] [address] [place] [address] Dr. Tom Dotson EO # 0.0 103/ul Normal 0.0-0.7 [facility] Comment on above: Performed By: #### C BC #### [facility] [address] [place] [address] Dr. Tom Dotson Eosinophils/100 WBC (Bld) 0.0 % Critically low 0.9-7.0 [facility] Comment on above: Performed By: #### C BC #### [facility] [address] [place] [address] Dr. Tom Dotson Erythrocyte distribution width (RBC) [Ratio] 12.4 % Normal 11.0-15.0 [facility] Comment on above: Performed By: #### C BC #### [facility] [address] [place] [address] Dr. Tom Dotson Hematocrit (Bld) [Volume fraction] 43.6 % Normal 42.0-54.0 [facility] Comment on above: Performed By: #### C BC #### [facility] [address] [place] [address] Dr. Tom Dotson Hemoglobin (Bld) [Mass/Vol] 14.3 g/dL Normal 14.0-18.0 [facility] Comment on above: Performed By: #### C BC #### [facility] [address] [place] [address] Dr. Tom Dotson IG # 0.02 10e3/ul Normal 0.00-0.03 [facility] Comment on above: Performed By: #### C BC #### [facility] [address] [place] [address] Dr. Tom Dotson IG % 0.3 % Normal 0.0-0.5 [facility] Comment on above: Performed By: #### C BC #### [facility] [address] [place] [address] Dr. Tom Dotson LYMPH # 1.4 103/ul Normal 1.2-3.8 [facility] Comment on above: Performed By: #### C BC #### [facility] [address] [place] [address] Dr. Tom Dotson Lymphocytes/100 WBC (Bld) 17.3 % Critically low 20.5-60.0 [facility] Comment on above: Performed By: #### C BC #### [facility] [address] [place] [address] Dr. Tom Dotson MANUAL DIFF REQ NO Normal [facility] Comment on above: Performed By: #### C BC #### [facility] [address] [place] [address] Dr. Tom Dotson MCH (RBC) [Entitic mass] 29.8 pg Normal 25.9-34.0 [facility] Comment on above: Performed By: #### C BC #### [facility] [address] [place] [address] Dr. Tom Dotson MCHC (RBC) [Mass/Vol] 32.8 g/dL Normal 29.9-35.2 [facility] Comment on above: Performed By: #### C BC #### [facility] [address] [place] [address] Dr. Tom Dotson MCV (RBC) [Entitic vol] 90.8 fL Normal 80.0-94.0 [facility] Comment on above: Performed By: #### C BC #### [facility] [address] [place] [address] Dr. Tom Dotson MONO # 0.7 103/ul Normal 0.3-0.8 [facility] Comment on above: Performed By: #### C BC #### [facility] [address] [place] [address] Dr. Tom Dotson Monocytes/100 WBC (Bld) 9.4 % Normal 1.7-12.0 [facility] Comment on above: Performed By: #### C BC #### [facility] [address] [place] [address] Dr. Tom Dotson NEUT # 5.7 103/ul Normal 1.4-6.5 [facility] Comment on above: Performed By: #### C BC #### [facility] [address] [place] [address] Dr. Tom Dotson Neutrophils/100 WBC (Bld) 72.2 % Normal 43.0-75.0 [facility] Comment on above: Performed By: #### C BC #### [facility] [address] [place] [address] Dr. Tom Dotson Platelet mean volume (Bld) [Entitic vol] 9.6 fL Normal 9.5-13.5 [facility] Comment on above: Performed By: #### C BC #### [facility] [address] [place] [address] Dr. Tom Dotson PLT 331 103/ul Normal 150-450 [facility] Comment on above: Performed By: #### C BC #### [facility] [address] [place] [address] Dr. Tom Dotson RBC 4.80 106/ul Normal 4.70-6.10 [facility] Comment on above: Performed By: #### C BC #### [facility] [address] [place] [address] Dr. Tom Dotson WBC 7.8 103/ul Normal 4.0-11.0 [facility] Comment on above: Performed By: #### C BC #### [facility] [address] [place] [address] Dr. Tom Dotson CULTURE BLOODon 09-25-2022 Microscopic examination of blood, culture Culture Observations: NO GROWTH AT 5 DAYS. Normal [facility] Comment on above: Performed By: #### I NFLUAB #### [facility] [address] [place] [address] Dr. Tom Dotson Microscopic examination of blood, culture Culture Observations: NO GROWTH AT 5 DAYS. Normal [facility] Comment on above: Performed By: #### I NFLUAB #### [facility] [address] [place] [address] Dr. Tom Dotson Covid-19 PCR (CVDTB)on SARS-CoV-2 (COVID-19) RNA OLGA+probe Ql (Unsp spec) Not detected Normal NOT DETECTED [facility] Comment on above: Result Comment: When [...] for this test is supported by the [place] of [employer] and Human [employer]'s declaration that [...] used). Performed By: #### C VDTBH #### [facility] [address] [place] [address] Dr. Tom Dotson INFLUENZA A AND B AGon 09-25 INFLUANEGH SEE BELOW Normal [facility] Comment on above: Result Comment: Nega tive for Flu A protein angiten. Infection due to Flu A cannot be ruled out. Flu A angiten in the sample may be below the detection limit of the test. Performed By: #### I NFLUAB #### [facility] [address] [place] [address] Dr. Tom Dotson INFLUBNEG SEE BELOW Normal [facility] Comment on above: Result Comment: Nega tive for Flu B protein antigen. Infection due to Flu B cannot be ruled out. Flu B antigen in the sample may be below the detection limit of the test. Performed By: #### I NFLUAB #### [facility] [address] [place] [address] Dr. Tom Dotson INFLUENZA A AG Negative Normal NEGATIVE SEE COMMENT [facility] Comment on above: Performed By: #### I NFLUAB #### [facility] [address] [address] [address] Tom Dotson INFLUENZA B AG Negative Normal NEGATIVE SEE COMMENT [facility] Comment on above: Performed By: #### I NFLUAB #### [facility] [address] [address] [address] Tom Dotson LACTATE/LACTIC ACIDon 2022 Lactate [Moles/Vol] 0.7 mmol/L Normal 0.4-1.9 [facility] Comment on above: Performed By: #### L ACT #### [facility] [address] [place] [address] Dr. Tom Dotson PROF CHEM 8 (BAS METB)on Anion gap [Moles/Vol] 9.3 mmol/L Normal [facility] Comment on above: Performed By: #### H STROPN, BMP, BNP #### [facility] [address] [place] [address] Dr. Tom Dotson Calcium [Mass/Vol] 8.8 mg/dL Normal 8.5-10.1 [facility] Comment on above: Performed By: #### H STROPN, BMP, BNP #### [facility] [address] [address] [address] Tom Dotson Chloride [Moles/Vol] 103 mmol/L Normal 98-107 [facility] Comment on above: Performed By: #### H STROPN, BMP, BNP #### [facility] [address] [address] [address] Tom Dotson CO2 [Moles/Vol] 31.1 mmol/L Normal 21.0-32.0 [facility] Comment on above: Performed By: #### H STROPN, BMP, BNP #### [facility] [address] [place] [address] Dr. Tom Dotson Creatinine [Mass/Vol] 0.77 mg/dL Normal 0.70-1.30 [facility] Comment on above: Performed By: #### H STROPN, BMP, BNP #### [facility] [address] [address] [address] Tom Dotson EGFR-AF PERUVIAN >60 Normal >=60 [facility] Comment on above: Performed By: #### H STROPN, BMP, BNP #### [facility] [address] [address] [address] Tom Dotson EGFR-NON AF PERUVIAN >60 Normal >=60 [facility] Comment on above: Performed By: #### H STROPN, BMP, BNP #### [facility] [address] [address] [address] Tom Dotson Glucose [Mass/Vol] 98 mg/dL Normal 74-106 [facility] Comment on above: Performed By: #### H STROPN, BMP, BNP #### [facility] [address] [address] [address] Tom Dotson Potassium [Moles/Vol] 4.4 mmol/L Normal 3.5-5.1 [facility] Comment on above: Performed By: #### H STROPN, BMP, BNP #### [facility] [address] [address] [address] Tom Dotson Sodium [Moles/Vol] 139 mmol/L Normal 136-145 [facility] Comment on above: Performed By: #### H STROPN, BMP, BNP #### [facility] [address] [address] [address] Tom Dotson Urea nitrogen [Mass/Vol] 13.0 mg/dL Normal 7.0-18.0 [facility] Comment on above: Performed By: #### H STROPN, BMP, BNP #### [facility] [address] [address] [address] Tom Dotson Urea nitrogen/Creatinine [Mass ratio] 16.9 mg/mg Normal [facility] Comment on above: Performed By: #### H STROPN, BMP, BNP #### [facility] [address] [place] [address] Dr. Tom Dotson TROPONIN, HIGH SENSITIVITYon 09-25-2022 HSTROP 7.4 pg/mL Normal 4.0-76.1 [facility] Comment on above: Result Comment: CUT- OFF POINTS HAVE BEEN ESTABLISHED BASED ON THE FOURTH UNIVERSAL DEFINITIONS OF MYOCARDIAL INFARCTION. THE UPPER REFERENCE LIMIT (URL) OF TROPONIN, DEFINED THE 99TH PERCENTILE OF cTnI DISTRIBUTION IN A REFERENCE POPULATION, HAS BEEN CONFIRMED THE DECISION THRESHOLD FOR [place] DIAGNOSIS. Performed By: #### I NFLUAB #### [facility] [address] [place] [address] Dr. Tom Dotson XR CHEST 1 Von [...] YARIEL OLSON Date: 2022-09-25 10:55 Normal [facility] ASPERGILLUS AB, QUANTITATIVE DIDon 04-20-2022 Aspergillus flavus Negative Normal Neg:<1:1 [facility] Comment on above: Performed By: #### A SPDID #### [facility] [address] [place] [address] Dr. Tom Dotson Aspergillus fumigatus Negative Normal Neg:<1:1 [facility] Comment on above: Performed By: #### A SPDID #### [facility] [address] [place] [address] Dr. Tom Dotson Aspergillus niger Negative Normal Neg:<1:1 [facility] Comment on above: Performed By: #### A SPDID #### [facility] [address] [place] [address] Dr. Tom Dotson ANTI NEUTROPHIL CYTOPLASMIC AB (ANCA) PRon 04-19-2022 Anti-MPO Antibodies <0.2 Normal 0.0-0.9 [facility] Comment on above: Result Comment: Perf ormed at: BN Performed By: #### C BC #### [facility] [address] [place] [address] Dr. Tom Dotson Anti-PR3 Antibodies <0.2 Normal 0.0-0.9 [facility] Comment on above: Result Comment: Perf ormed at: BN Performed By: #### C BC #### [facility] [address] [place] [address] Dr. Tom Dotson Atypical pANCA <1:20 Normal Neg:<1:20 [facility] Comment on above: Result Comment: The atypical pANCA pattern has been observed in a significant percentage of patients with ulcerative colitis, primary sclerosing cholangitis and autoimmune hepatitis. Performed at: CB Performed By: #### C BC #### [facility] [address] [place] [address] Dr. Tom Dotson Cytoplasmic (C-ANCA) <1:20 Normal Neg:<1:20 [facility] Comment on above: Result Comment: Perf ormed at: CB Performed By: #### C BC #### [facility] [address] [place] [address] Dr. Tom Dotson Perinuclear (P-ANCA) <1:20 Normal Neg:<1:20 [facility] Comment on above: Result Comment: The presence of positive fluorescence exhibiting P-ANCA or C-ANCA patterns alone is not specific for the diagnosis of Nevin's Granulomatosis (WG) or microscopic polyangiitis. Decisions about treatment should not be based solely on ANCA IFA results. The [employer] ANCA [employer] Consensus recommends follow up testing of positive sera with both OH-3 and MPO-ANCA enzyme immunoassays. As many as 5% serum samples are positive only by EIA. Ref. AM J Clin Pathol 1999;111:507-513. Performed at: CB Performed By: #### C BC #### [facility] [address] [place] [address] Dr. Tom Dotson IMMUNOGLOBULIN E, TOTALon Immunoglobulin E, Total 68 IU/mL Normal 6-495 [facility] Comment on above: Performed By: #### I RIAOT #### [facility] [address] [place] [address] Dr. Tom Dotson ANGIOTENSION-CONVERTING ENZY ME (ELINOR)on 04-17-2022 ELINOR 28 U/L Normal 14-82 [facility] Comment on above: Performed By: #### A NGIOC #### [facility] [address] [place] [address] Dr. Tom Dotson CBC AUTO DIFFon 04-16-2022 BASO # 0.1 103/ul Normal 0.0-0.1 [facility] Comment on above: Performed By: #### I NFLUAB #### [facility] [address] [place] [address] Dr. Tom Dotson Basophils/100 WBC (Bld) 1.0 % Normal 0.2-2.0 [facility] Comment on above: Performed By: #### I NFLUAB #### [facility] [address] [place] [address] Dr. Tom Dotson EO # 0.0 103/ul Normal 0.0-0.7 [facility] Comment on above: Performed By: #### I NFLUAB #### [facility] [address] [place] [address] Dr. Tom Dotson Eosinophils/100 WBC (Bld) 0.1 % Critically low 0.9-7.0 [facility] Comment on above: Performed By: #### I NFLUAB #### [facility] [address] [place] [address] Dr. Tom Dotson Erythrocyte distribution width (RBC) [Ratio] 12.9 % Normal 11.0-15.0 [facility] Comment on above: Performed By: #### I NFLUAB #### [facility] [address] [place] [address] Dr. Tom Dotson Hematocrit (Bld) [Volume fraction] 44.8 % Normal 42.0-54.0 [facility] Comment on above: Performed By: #### I NFLUAB #### [facility] [address] [place] [address] Dr. Tom Dotson Hemoglobin (Bld) [Mass/Vol] 15.0 g/dL Normal 14.0-18.0 [facility] Comment on above: Performed By: #### I NFLUAB #### [facility] [address] [place] [address] Dr. Tom Dotson IG # 0.02 10e3/ul Normal 0.00-0.03 [facility] Comment on above: Performed By: #### I NFLUAB #### [facility] [address] [address] [address] Tom Dotson IG % 0.2 % Normal 0.0-0.5 [facility] Comment on above: Performed By: #### I NFLUAB #### [facility] [address] [address] [address] Tom Dotson LYMPH # 1.4 103/ul Normal 1.2-3.8 [facility] Comment on above: Performed By: #### I NFLUAB #### [facility] [address] [address] [address] Tom Dotson Lymphocytes/100 WBC (Bld) 17.6 % Critically low 20.5-60.0 [facility] Comment on above: Performed By: #### I NFLUAB #### [facility] [address] [place] [address] Dr. Tom Dotson MANUAL DIFF REQ NO Normal [facility] Comment on above: Performed By: #### I NFLUAB #### [facility] [address] [address] [address] Tom Dotson MCH (RBC) [Entitic mass] 30.9 pg Normal 25.9-34.0 [facility] Comment on above: Performed By: #### I NFLUAB #### [facility] [address] [place] [address] Dr. Tom Dotson MCHC (RBC) [Mass/Vol] 33.5 g/dL Normal 29.9-35.2 [facility] Comment on above: Performed By: #### I NFLUAB #### [facility] [address] [address] [address] Tom Dotson MCV (RBC) [Entitic vol] 92.2 fL Normal 80.0-94.0 [facility] Comment on above: Performed By: #### I NFLUAB #### [facility] [address] [place] [address] Dr. Tom Dotson MONO # 0.8 103/ul Normal 0.3-0.8 [facility] Comment on above: Performed By: #### I NFLUAB #### [facility] [address] [address] [address] Tom Dotson Monocytes/100 WBC (Bld) 9.6 % Normal 1.7-12.0 [facility] Comment on above: Performed By: #### I NFLUAB #### [facility] [address] [address] [address] Tom Dotson NEUT # 5.9 103/ul Normal 1.4-6.5 [facility] Comment on above: Performed By: #### I NFLUAB #### [facility] [address] [place] [address] Dr. Tom Dotson Neutrophils/100 WBC (Bld) 71.5 % Normal 43.0-75.0 [facility] Comment on above: Performed By: #### I NFLUAB #### [facility] [address] [place] [address] Dr. Tom Dotson Platelet mean volume (Bld) [Entitic vol] 9.9 fL Normal 9.5-13.5 [facility] Comment on above: Performed By: #### I NFLUAB #### [facility] [address] [place] [address] Dr. Tom Dotson PLT 325 103/ul Normal 150-450 [facility] Comment on above: Performed By: #### I NFLUAB #### [facility] [address] [place] [address] Dr. Tom Dotson RBC 4.86 106/ul Normal 4.70-6.10 [facility] Comment on above: Performed By: #### I NFLUAB #### [facility] [address] [place] [address] Dr. Tom Dotson WBC 8.2 103/ul Normal 4.0-11.0 [facility] Comment on above: Performed By: #### I NFLUAB #### [facility] [address] [place] [address] LUNG CANCER SCREENINGon [...] mass, effusion, or pneumothorax. VASCULATURE: No abnormality. ROMSERY: Calcified right hilar lymph nodes. MEDIASTINUM: No [...] YARIEL OLSON Date: 2022-04-10 22:57 Normal [facility] CBC AUTO DIFFon 03-06-2022 BASO # 0.1 103/ul Normal 0.0-0.1 [facility] Comment on above: Performed By: #### C BC #### [facility] [address] [place] [address] Dr. Tom Dotson Basophils/100 WBC (Bld) 1.0 % Normal 0.2-2.0 [facility] Comment on above: Performed By: #### C BC #### [facility] [address] [address] [address] Tom Dotson EO # 2.5 103/ul Critically high 0.0-0.7 [facility] Comment on above: Performed By: #### C BC #### [facility] [address] [address] [address] Tom Dotson Eosinophils/100 WBC (Bld) 29.1 % Critically high 0.9-7.0 [facility] Comment on above: Performed By: #### C BC #### [facility] [address] [place] [address] Dr. Tom Dotson Erythrocyte distribution width (RBC) [Ratio] 12.8 % Normal 11.0-15.0 [facility] Comment on above: Performed By: #### C BC #### [facility] [address] [place] [address] Dr. Tom Dotson Hematocrit (Bld) [Volume fraction] 46.6 % Normal 42.0-54.0 [facility] Comment on above: Performed By: #### C BC #### [facility] [address] [place] [address] Dr. Tom Dotson Hemoglobin (Bld) [Mass/Vol] 14.4 g/dL Normal 14.0-18.0 [facility] Comment on above: Performed By: #### C BC #### [facility] [address] [place] [address] Dr. Tom Dotson IG # 0.04 10e3/ul Critically high 0.00-0.03 [facility] Comment on above: Performed By: #### C BC #### [facility] [address] [place] [address] Dr. Tom Dotson IG % 0.5 % Normal 0.0-0.5 [facility] Comment on above: Performed By: #### C BC #### [facility] [address] [place] [address] Dr. Tom Dotson LYMPH # 1.3 103/ul Normal 1.2-3.8 [facility] Comment on above: Performed By: #### C BC #### [facility] [address] [place] [address] Dr. Tom Dotson Lymphocytes/100 WBC (Bld) 15.1 % Critically low 20.5-60.0 [facility] Comment on above: Performed By: #### C BC #### [facility] [address] [place] [address] Dr. Tom Dotson MANUAL DIFF REQ NO Normal [facility] Comment on above: Performed By: #### C BC #### [facility] [address] [place] [address] Dr. Tom Dotson MCH (RBC) [Entitic mass] 29.5 pg Normal 25.9-34.0 [facility] Comment on above: Performed By: #### C BC #### [facility] [address] [place] [address] Dr. Tom Dotson MCHC (RBC) [Mass/Vol] 30.9 g/dL Normal 29.9-35.2 [facility] Comment on above: Performed By: #### C BC #### [facility] [address] [place] [address] Dr. Tom Dotson MCV (RBC) [Entitic vol] 95.5 fL Critically high 80.0-94.0 [facility] Comment on above: Performed By: #### C BC #### [facility] [address] [place] [address] Dr. Tom Dotson MONO # 0.8 103/ul Normal 0.3-0.8 [facility] Comment on above: Performed By: #### C BC #### [facility] [address] [place] [address] Dr. Tom Dotson Monocytes/100 WBC (Bld) 9.5 % Normal 1.7-12.0 [facility] Comment on above: Performed By: #### C BC #### [facility] [address] [place] [address] Dr. Tom Dotson NEUT # 3.9 103/ul Normal 1.4-6.5 [facility] Comment on above: Performed By: #### C BC #### [facility] [address] [place] [address] Dr. Tom Dotson Neutrophils/100 WBC (Bld) 44.8 % Normal 43.0-75.0 [facility] Comment on above: Performed By: #### C BC #### [facility] [address] [place] [address] Dr. Tom Dotson Platelet mean volume (Bld) [Entitic vol] 10.2 fL Normal 9.5-13.5 [facility] Comment on above: Performed By: #### C BC #### [facility] [address] [place] [address] Dr. Tom Dotson PLT 328 103/ul Normal 150-450 [facility] Comment on above: Performed By: #### C BC #### [facility] [address] [place] [address] Dr. Tom Dotson RBC 4.88 106/ul Normal 4.70-6.10 [facility] Comment on above: Performed By: #### C BC #### [facility] [address] [place] [address] Dr. Tom Dotson WBC 8.7 103/ul Normal 4.0-11.0 [facility] Comment on above: Performed By: #### C BC #### [facility] [address] [place] [address] Dr. Tom Dotson DIFFERENTIAL MANUALon 2021 ATYPICAL LYMPH # 0.09 103/ul Normal [facility] Comment on above: Performed By: #### D IFF #### [facility] [address] [place] [address] Dr. Tom Dotson ATYPICAL LYMPH % 1 % Normal [facility] Comment on above: Performed By: #### D IFF #### [facility] [address] [place] [address] Dr. Tom Dotson BAND # 0.0 103/ul Normal 0.0-0.3 [facility] Comment on above: Performed By: #### D IFF #### [facility] [address] [place] [address] Dr. Tom Dotson BAND % 0 % Normal 0-5 [facility] Comment on above: Performed By: #### D IFF #### [facility] [address] [place] [address] Dr. Tom Dotson BASOM # 0.00 103/ul Normal 0.00-0.10 [facility] Comment on above: Performed By: #### D IFF #### [facility] [address] [place] [address] Dr. Tom Dotson BASOM % 0.0 % Critically low 0.2-2.0 [facility] Comment on above: Performed By: #### D IFF #### [facility] [address] [place] [address] Dr. Tom Dotson BLAST # Normal [facility] Comment on above: Performed By: #### D IFF #### [facility] [address] [place] [address] Dr. Tom Dotson BLAST % Normal [facility] Comment on above: Performed By: #### D IFF #### [facility] [address] [place] [address] Dr. Tom Dotson CORRECTED WBC Normal 4.0-11.0 [facility] Comment on above: Performed By: #### D IFF #### [facility] [address] [place] [address] Dr. Tom Dotson EOS # 1.22 103/ul Critically high 0.00-0.70 [facility] Comment on above: Performed By: #### D IFF #### [facility] [address] [place] [address] Dr. Tom Dotson EOS% 14.0 % Critically high 0.9-7.0 [facility] Comment on above: Performed By: #### D IFF #### [facility] [address] [place] [address] Dr. Tom Dotson LYMPHM # 1.91 103/ul Normal 1.20-3.80 [facility] Comment on above: Performed By: #### D IFF #### [facility] [address] [place] [address] Dr. Tom Dotson LYMPHM% 22.0 % Normal 20.5-60.0 [facility] Comment on above: Performed By: #### D IFF #### [facility] [address] [place] [address] Dr. Tom Dotson METAMYELOCYTE # Normal [facility] Comment on above: Performed By: #### D IFF #### [facility] [address] [place] [address] Dr. Tom Dotson METAMYELOCYTE % Normal [facility] Comment on above: Performed By: #### D IFF #### [facility] [address] [place] [address] Dr. Tom Dotson MONOM# 0.52 103/ul Normal 0.30-0.80 [facility] Comment on above: Performed By: #### D IFF #### [facility] [address] [place] [address] Dr. Tom Dotson MONOM% 6.0 % Normal 1.7-12.0 [facility] Comment on above: Performed By: #### D IFF #### [facility] [address] [place] [address] Dr. Tom Dotson MYELOCYTE # Normal [facility] Comment on above: Performed By: #### D IFF #### [facility] [address] [place] [address] Dr. Tom Dotson MYELOCYTE % Normal [facility] Comment on above: Performed By: #### D IFF #### [facility] [address] [place] [address] Dr. Tom Dotson NRBC Normal [facility] Comment on above: Performed By: #### D IFF #### [facility] [address] [place] [address] Dr. Tom Dotson SEG # 4.96 103/ul Normal 1.40-6.50 [facility] Comment on above: Performed By: #### D IFF #### [facility] [address] [place] [address] Dr. Tom Dotson SEG % 57.0 % Normal 43.0-75.0 [facility] Comment on above: Performed By: #### D IFF #### [facility] [address] [place] [address] Dr. Tom Dotson WBC 8.7 103/ul Normal 4.0-11.0 [facility] Comment on above: Performed By: #### D IFF #### [facility] [address] [place] [address] Dr. Tom Dotson LIPID PROFILEon 06-15-2022 CHOL-HDL RATIO NORM SEE BELOW Normal [facility] Comment on above: Result Comment: 3.3 - 4.4 LOW RISK 4.4 - 7.1 AVERAGE RISK 7.1 - 11.0 MODERATE RISK >11.0 HIGH RISK Performed By: #### I NFLUAB #### [facility] [address] [address] [address] Tom Dotson Cholesterol [Mass/Vol] 135 mg/dL Normal <=200 [facility] Comment on above: Performed By: #### I NFLUAB #### [facility] [address] [address] [address] Tom Dotson Cholesterol in HDL [Mass/Vol] 51 mg/dL Normal 40-60 [facility] Comment on above: Performed By: #### I NFLUAB #### [facility] [address] [address] [address] Tom Dotson Cholesterol in LDL [Mass/Vol] 74.4 mg/dL Normal [facility] Comment on above: Performed By: #### I NFLUAB #### [facility] [address] [address] [address] Tom Dotson Cholesterol.total/Ch olesterol in HDL [Mass ratio] 2.6 {ratio} Normal [facility] Comment on above: Performed By: #### I NFLUAB #### [facility] [address] [address] [address] Tom Dotson HDL NORMAL > or = 60 mg/dl - LO W CARDIOVASCULAR RISK <40 mg/dl - HIGH CARDIOVASCULAR RISK Normal [facility] Comment on above: Performed By: #### I NFLUAB #### [facility] [address] [address] [address] Tom Dotson LDL CALC NORMAL SEE BELOW Normal [facility] Comment on above: Result Comment: <100 mg/dl OPTIMAL 100 - 129 mg/dl NEAR OR ABOVE OPTIMAL 130 - 159 mg/dl BORDERLINE HIGH 160 - 189 mg/dl HIGH >190 mg/dl VERY HIGH Performed By: #### I NFLUAB #### [facility] [address] [address] [address] Tom Dotson Triglyceride [Mass/Vol] 48 mg/dL Normal <=150 [facility] Comment on above: Performed By: #### I NFLUAB #### [facility] [address] [place] [address] Dr. Tom Dotson VLDL CALC 9.6 mg/dL Normal [facility] Comment on above: Performed By: #### I NFLUAB #### [facility] [address] [place] [address] Dr. Tom Dotson PROF 14(COMP METB)on 022 Albumin [Mass/Vol] 3.8 g/dL Normal 3.4-5.0 [facility] Comment on above: Performed By: #### I NFLUAB #### [facility] [address] [place] [address] Dr. Tom Dotson Albumin/Globulin [Mass ratio] 1.1 {ratio} Normal [facility] Comment on above: Performed By: #### I NFLUAB #### [facility] [address] [place] [address] Dr. Tom Dotson ALP [Catalytic activity/Vol] 62 U/L Normal 46-116 [facility] Comment on above: Performed By: #### I NFLUAB #### [facility] [address] [place] [address] Dr. Tom Dotson ALT [Catalytic activity/Vol] 25 U/L Normal 16-63 [facility] Comment on above: Performed By: #### I NFLUAB #### [facility] [address] [place] [address] Dr. Tom Dotson Anion gap [Moles/Vol] 9.8 mmol/L Normal [facility] Comment on above: Performed By: #### I NFLUAB #### [facility] [address] [place] [address] Dr. Tom Dotson AST [Catalytic activity/Vol] 15 U/L Normal 15-37 [facility] Comment on above: Performed By: #### I NFLUAB #### [facility] [address] [place] [address] Dr. Tom Dotson Bilirubin [Mass/Vol] 0.9 mg/dL Normal 0.2-1.0 [facility] Comment on above: Performed By: #### I NFLUAB #### [facility] [address] [place] [address] Dr. Tom Dotson Calcium [Mass/Vol] 8.8 mg/dL Normal 8.5-10.1 [facility] Comment on above: Performed By: #### I NFLUAB #### [facility] [address] [address] [address] Tom Dotson Chloride [Moles/Vol] 102 mmol/L Normal 98-107 [facility] Comment on above: Performed By: #### I NFLUAB #### [facility] [address] [place] [address] Dr. Tom Dotson CO2 [Moles/Vol] 30.5 mmol/L Normal 21.0-32.0 [facility] Comment on above: Performed By: #### I NFLUAB #### [facility] [address] [place] [address] Dr. Tom Dotson Creatinine [Mass/Vol] 0.95 mg/dL Normal 0.70-1.30 [facility] Comment on above: Performed By: #### I NFLUAB #### [facility] [address] [place] [address] Dr. Tom Dotson EGFR-AF PERUVIAN >60 Normal >=60 [facility] Comment on above: Performed By: #### I NFLUAB #### [facility] [address] [place] [address] Dr. Tom Dotson EGFR-NON AF PERUVIAN >60 Normal >=60 [facility] Comment on above: Performed By: #### I NFLUAB #### [facility] [address] [place] [address] Dr. Tom Dotson Globulin (S) [Mass/Vol] 3.4 g/dL Normal [facility] Comment on above: Performed By: #### I NFLUAB #### [facility] [address] [place] [address] Dr. Tom Dotson Glucose [Mass/Vol] 85 mg/dL Normal 74-106 [facility] Comment on above: Performed By: #### I NFLUAB #### [facility] [address] [address] [address] Tom Dotson Potassium [Moles/Vol] 4.3 mmol/L Normal 3.5-5.1 [facility] Comment on above: Performed By: #### I NFLUAB #### [facility] [address] [address] [address] Tom Dotson Protein [Mass/Vol] 7.2 g/dL Normal 6.4-8.2 [facility] Comment on above: Performed By: #### I NFLUAB #### [facility] [address] [place] [address] Dr. Tom Dotson Sodium [Moles/Vol] 138 mmol/L Normal 136-145 [facility] Comment on above: Performed By: #### I NFLUAB #### [facility] [address] [place] [address] Dr. Tom Dotson Urea nitrogen [Mass/Vol] 14.0 mg/dL Normal 7.0-18.0 [facility] Comment on above: Performed By: #### I NFLUAB #### [facility] [address] [place] [address] Dr. Tom Dotson Urea nitrogen/Creatinine [Mass ratio] 14.7 mg/mg Normal [facility] Comment on above: Performed By: #### I NFLUAB #### [facility] [address] [place] [address] Dr. Tom Dotson TSHon 03-06-2022 TSH 1.010 uIU/mL Normal 0.358-3.740 [facility] Comment on above: Performed By: #### I NFLUAB #### [facility] [address] [place] [address] Dr. Tom Dotson Hepatic Panelon 09-02-2019 Albumin [Mass/Vol] 3.2 g/dL Normal 3.2-5.5 [facility] Comment on above: Performed By: #### H EPATIC, LIPID, TSH3 wRFLX, [id number] #### [facility] [address] [place] [address] Albumin/Globulin [Mass ratio] 1.1 {ratio} Normal [facility] Comment on above: Performed By: #### H EPATIC, LIPID, TSH3 wRFLX, [id number] #### [facility] [address] [place] [address] ALP [Catalytic activity/Vol] 38 U/L Normal 32-92 [facility] Comment on above: Performed By: #### H EPATIC, LIPID, TSH3 wRFLX, [id number] #### [address] ALT [Catalytic activity/Vol] 14 U/L Normal 10-60 [facility] Comment on above: Performed By: #### H EPATIC, LIPID, TSH3 wRFLX, [id number] #### [facility] [address] [place] [address] AST [Catalytic activity/Vol] 13 U/L Normal 10-42 [facility] Comment on above: Performed By: #### H EPATIC, LIPID, TSH3 wRFLX, [id number] #### [address] Bilirubin [Mass/Vol] 0.9 mg/dL Normal 0.3-1.2 [facility] Comment on above: Performed By: #### H EPATIC, LIPID, TSH3 wRFLX, [id number] #### [facility] [address] [place] [address] [place] Bilirubin,Indirect 0.8 mg/dL Normal [facility] Comment on above: Performed By: #### H EPATIC, LIPID, TSH3 wRFLX, [id number] #### [place] [address] [place] Bilirubin.direct [Mass/Vol] 0.1 mg/dL Normal 0.0-0.4 [facility] Comment on above: Performed By: #### H EPATIC, LIPID, TSH3 wRFLX, [id number] #### [address] [place] [address] [place] Globulin (S) [Mass/Vol] 2.9 g/dL Normal [facility] Comment on above: Performed By: #### H EPATIC, LIPID, TSH3 wRFLX, [id number] #### [facility] [address] [id number] [facility] Protein [Mass/Vol] 6.1 g/dL Normal 6.1-7.9 [facility] Comment on above: Performed By: #### H EPATIC, LIPID, TSH3 wRFLX, [id number] #### [address] Lipid Panelon 09-02-2019 Cholesterol [Mass/Vol] 158 mg/dL Normal 140-200 [facility] Comment on above: Result Comment: Chol less than 200 mg/dl low risk Chol 201-239 mg/dl borderline risk Chol 240 mg/dl and greater high risk Performed By: #### H EPATIC, LIPID, TSH3 wRFLX, [id number] #### [address] Cholesterol in HDL [Mass/Vol] 61 mg/dL Normal 29-71 [facility] Comment on above: Result Comment: HDL CHOL ATP-III CLASSIFICATION Cardiovascular Risk HDL > or equal to 60 mg/dL LOW HDL < 40 mg/dL HIGH Performed By: #### H EPATIC, LIPID, TSH3 wRFLX, [id number] #### [facility] [address] [place] [address] Cholesterol.total/Ch olesterol in HDL [Mass ratio] 2.6 {ratio} Normal <5.0 [facility] Comment on above: Performed By: #### H EPATIC, LIPID, TSH3 wRFLX, [id number] #### [facility] [address] [place] [address] LDL Cholesterol,Calculat ed 84 mg/dL Normal 0-100 [facility] Comment on above: Result Comment: LDL ATP III CLASSIFICATION LDL less than 100 mg/dL Optimal LDL 100-129 mg/dL Near or above optimal LDL 130-159 mg/dL Borderline high LDL 160-189 mg/dL High LDL greater than 189 mg/dL Very high Performed By: #### H EPATIC, LIPID, TSH3 wRFLX, [id number] #### [facility] [address] Triglyceride w/Reflex 63 mg/dL Normal 35-149 [facility] Comment on above: Result Comment: TRIG ATP III CLASSIFICATION TRIG less than 150 mg/dL Normal TRIG 150-199 mg/dL Borderline high TRIG 200-500 mg/dL High TRIG greater than 500 mg/dL Very high Standard traceable to the Center for Disease Conrtrol and Prevention (CDC) test method. Performed By: #### H EPATIC, LIPID, TSH3 wRFLX, [id number] #### [facility] [address] VLDL CHOLESTEROL 12 mg/dL Normal [facility] Comment on above: Performed By: #### H EPATIC, LIPID, TSH3 wRFLX, [id number] #### [facility] [address] Thyroid Stim Hormone w/Rflxo n 09-02-2019 Thyroid Stim Hormone w/Rflx 1.92 u[iU]/mL Normal 0.45-5.33 [facility] Comment on above: Performed By: #### H EPATIC, LIPID, TSH3 wRFLX, [id number] #### [facility] [address] [place] [address] Vitamin D 25 Hydroxy Totalon 09-02-2019 Vitamin D 25 Hydroxy Total 11.9 ng/mL Low 30-100 [facility] Comment on above: Result Comment: DAE MIN D STATUS 25(OH)VITAMIN D RANGE (ng/mL) Deficient <20 Insufficient 20 to <30 Sufficient 30 to 100 Reference: Darrion MF,Zane NC, Hanna AVELAR, et al. Evaluation,treatment, and prevention of vitamin D deficiency; an Endocrine Society clinical practice guideline. JCEM. 2010; 96(7):1911-30. PERFORMED BY: [place] [address] PATHOLOGIST DUCK FARMER MIGUELINA FLOOD M.D. Performed By: #### H EPATIC, LIPID, TSH3 wRFLX, [id number] #### [facility] [address] Vital Signs Date Time Vital Sign Value Performing Clinician Madan mayer 10-30-2023 10:00-0500 Body height 185.4 cm Azul Maria Luzz CODIFIER Work Phone: [facility] 10-30-2023 10:00-0500 Body mass index (BMI) [Ratio] 26.84 kg/m2 Azul Aichholz CODIFIER Work Phone: [facility] 10-30-2023 10:00-0500 Body temperature 97.11 [degF] Azul Aichholz CODIFIER Work Phone: [facility] 10-30-2023 10:00-0500 Body weight 92.26 kg Azul Aichholz CODIFIER Work Phone: [facility] 10-30-2023 10:00-0500 Diastolic blood pressure 78 mm[Hg] Azul Aichholz CODIFIER Work Phone: [facility] 10-30-2023 10:00-0500 Heart rate 83 /min Azul Aichholz CODIFIER Work Phone: [facility] 10-30-2023 10:00-0500 Respiratory rate 16 /min Azul Aichholz CODIFIER Work Phone: [facility] 10-30-2023 10:00-0500 SaO2% (BldA) [Mass fraction] 94 % Azul Leidyhholz CODIFIER Work Phone: [facility] 10-30-2023 10:00-0500 Systolic blood pressure 138 mm[Hg] Azul Aichholz CODIFIER Work Phone: [facility] Encounters Encounter Date Encounter Type Care Provider Facility Start: 11-13-2023 End: 11-13-2023 ambulatory AZUL AICHHOLZ Not Available Start: 10-30-2023 End: 10-30-2023 ambulatory AZUL AICHHOLZ Not Available Start: 10-30-2023 End: 10-30-2023 Office outpatient visit 15 minutes Azul Quezada NP Work Phone: [facility] Comment on above: Influenza (Primary D x); Marijuana abuse; Smoker; BMI 26.0-26.9,adult; Centrilobular emphysema ([facility]/HCC) Start: 10-21-2023 Clinisync Result Encounter Generic External Data Provider [facility] External Department Unsolicited Start: 10-21-2023 Clinisync Result Encounter Generic External Data Provider [facility] External Department Unsolicited Start: 09-25-2022 End: 09-25-2022 ambulatory [employer] 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 Facility:[facility] Start: 04-16-2022 End: 04-17-2022 ambulatory [facility] Facility:[facility] Start: 04-10-2022 End: 04-11-2022 ambulatory [facility] Facility:[facility] Start: 03-06-2022 End: 03-07-2022 ambulatory [employer] 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 Facility:[facility] Procedures Date Procedure Procedure Detail Performing Clinician Start: 10-21-2023 BLOOD CULTURE 2 Generic External Data Provider Start: 10-21-2023 BLOOD CULTURE 1 Generic External Data Provider Start: 03-06-2022 PSA screening [facility] Comment on above: Performed By: #### P [place] #### [facility] [address] [place] [address] Dr. Tom Dotson Plan of Treatment Date Care Activity Detail Author Start: 08-04-2024 Screening for malign ant neoplasm of colon [facility] Start: 03-21-2024 Influenza vaccination Influenza Vacc ine (#1) [facility] Comment on above: Postponed from 05/23 (Patient Refused) Start: 11-13-2023 End: 11-13-2023 Patient encounter procedure 11/13/2023 9:40 AM EST Office Visit [facility] [address] [place] [id number] Azul Quezada NP [address] [place] [id number] [facility] Start: 10-30-2023 End: 10-30-2023 Patient encounter procedure 10/30/2023 10:00 AM EST Office Visit [facility] [address] [place] [id number] Azul Quezada, ORACIO [address] [place] [address] [facility] Start: 2023 Influenza vaccination Influenza Vacc ine (#1) [facility] Start: 1960 Medicare Annual Well ness (AWV) Medicare Annual Wellness (AWV) [facility] Start: 1960 Screening for malign ant neoplasm of colon [facility] BLOOD CULTURE 1 BLOOD CULTURE 1 Lab Routine 10/21/2023 12:27 PM EST [facility] BLOOD CULTURE 2 BLOOD CULTURE 2 Lab Routine 10/21/2023 12:30 PM EST [facility] Immunizations Immunization Date Immunization Notes Care Provider [facility] 2020 influenza, live, intranasal, quadrivalent Azul Quezada CODIFIER Work Phone: [facility] 2020 influenza virus vacc ine, unspecified formulation Generic Provider [facility] 08-04-2019 influenza, high dose seasonal, preservative-free Azul Quezada CODIFIER Work Phone: [facility] Payers Date Payer Category Payer Medicare [id number] 1993 Medicare [id number] 1960 Unknown [id number] 1960 Unknown [id number] 1960 Unknown [id number] [id number] 1960 Unknown [id number] 2.16.84 [id number] 1960 Unknown [id number] 2.16.84 [id number] 1960 Unknown [id number] 2.16.84 [id number] 1959 Medicaid [id number] 1959 Unknown [id number] Social History Date Type Detail Facility Tobacco smoking stat [facility] Tobacco smoking consumption unknown [facility] Start: 1960 Sex Assigned At Not on file [facility] Start: 10-30-2023 Gender identity Not on file [facility] Start: 10-30-2023 Tobacco smoking stat [facility] Ex-smoker [facility] End: 03-22-2019 History of [...] complaint on file. HPI: Recent hospitalization at [facility] for 3 days d/t influenza. Does [...] artery stenosis Calcified lymph nodes Centrilobular emphysema ([facility]) COVID-19 07/2019 CVA (cerebral vascular accident) ([facility]) Degenerative cervical disc Depression with anxiety Insomnia Marijuana abuse 10/30/2023 Multiple pulmonary nodules Neck mass 2013 Osteoarthritis Papule of skin Pigmented skin lesion of uncertain nature Rheumatic fever Stroke ([facility]) 07/2020 Testicle lump Tourette's ([facility]) Vertebral artery occlusion Vocal cord polyp Past Surgical History: Procedure Laterality Date ADENOIDECTOMY CAROTID STENT Right 09/2019 stent, RT carotid CT GUIDED TRANSVAGINAL TRANSRECTAL FLUID DRAIN 06/09/2020 CT GUIDED TRANSVAGINAL TRANSRECTAL FLUID DRAIN 06/09/2020 OTHER SURGICAL HISTORY Removal of Polyp Vocal area and Vocal Cord cyst [place] EXCISION THYROGLOSSAL DUCT CYST/SINUS Procedure:DL, e/o thyroglossal [...] section and content) DATE CREATED AUTHOR 09/04/2019 [facility] DATE CREATED AUTHOR AUTHOR'S ORGANIZ ATION 09/30/2022 [facility] DATE CREATED AUTHOR AUTHOR'S ORGANIZ ATION 11/21/2023 [facility] Care Teams (unrecognized sec tion and content) Representative Relationship Specialty Start Date End Date Kiko Zurita MD PCP - General Family Medicine 04/07/23 Azul Quezada NP [address] [place] [address] Referring Physician Nurse Practitioner 04/07/23 Representative Relationship Specialty Start Date End Date Kiko Zurita MD [address] [place] [address] PCP - General Family Medicine 10/24/23 Azul Quezada NP [address] [place] [address] Referring Physician Nurse Practitioner 04/07/23 FOR [...] BE BASED ON THE PRIMARY CLINICAL RECORDS. [facility]. provides no warranty or guarantee of the accuracy or completeness of information in this document.
[2023-11-30 23:18] LABS: Glucose 151 mg/dL (74-106)
[2023-11-30] MEDS: IPRATROPIUM/ALBUTEROL SULFATE 3 ML AMPUL.NEB IH (23:26)
[2023-11-30] MEDS: ENOXAPARIN SODIUM 40 MG/0.4 ML SYRINGE SUBQ (23:50)
[2023-11-30] MEDS: 0.9 % SODIUM CHLORIDE 1,000 ML 75 ML IV (23:50)
[2023-11-30] MEDS: TRAZODONE HCL 50 MG TABLET PO (23:50)
[2023-11-30] MEDS: AZITHROMYCIN 500 MG in 0.9 % SODIUM CHLORIDE 250 ML 250 MG IV (23:50)
[2023-12-01] VITALS (13 sets, daily range): BP systolic 107–134; BP diastolic 64–68; PULSE 80–105; RESP 18–20; TEMP 36.4–36.6; O2SAT 91–96
[2023-12-01] MEDS: IPRATROPIUM/ALBUTEROL SULFATE 3 ML AMPUL.NEB IH ×2 (04:16→11:31)
[2023-12-01] MEDS: METHYLPREDNISOLONE SOD SUCC PF 125 MG/2 ML VIAL 60 MG IVP ×2 (04:19→11:46)
[2023-12-01 05:09] LABS: Basophils Percent Auto 0.2 % (0.2-2.0); Eosinophils Percent Auto 0.1 % (0.9-7.0); Hematocrit 39.1 % (42.0-54.0); Hemoglobin 12.2 g/dL (14.0-18.0); Immature Granulocytes Abs Auto 0.15 10^3/uL (0.00-0.03); Immature Granulocytes Pct Auto 0.9 % (0.0-0.5); Lymphocytes Absolute Auto 0.6 10^3/uL (1.2-3.8); Lymphocytes Percent Auto 3.5 % (20.5-60.0); Mean Corpuscular HGB Conc 31.2 g/dL (29.9-35.2); Mean Corpuscular Hemoglobin 29.3 pg (25.9-34.0); Mean Platelet Volume 9.8 fL (9.5-13.5); Monocytes Absolute Auto 0.4 10^3/uL (0.3-0.8); Monocytes Percent Auto 2.4 % (1.7-12.0); Neutrophils Absolute Auto 16.3 10^3/uL (1.4-6.5); Neutrophils Percent Auto 92.9 % (43.0-75.0); Platelet Count 256 10^3/uL (150-450); Red Blood Count 4.16 10^6/uL (4.70-6.10); Red Cell Distribution Width 12.7 % (11.0-15.0); White Blood Count 17.5 10^3/uL (4.0-11.0)
[2023-12-01 05:30] LABS: Alanine Aminotransferase 13 U/L (16-63); Albumin Globulin Ratio 0.7; Albumin Level 2.8 g/dL (3.4-5.0); Alkaline Phosphatase 65 U/L (46-116); Anion Gap 11.9; Aspartate Amino Transferase 13 U/L (15-37); BUN Creatinine Ratio 13.8; Bilirubin Total 0.7 mg/dL (0.2-1.0); Calcium 8.8 mg/dL (8.5-10.1); Carbon Dioxide 25.9 mmol/L (21.0-32.0); Chloride 103 mmol/L (98-107); Estimated GFR (African America >60 (>=60); Estimated GFR (Non-African Ame >60 (>=60); Globulin 4.2 g/dL; Glucose 172 mg/dL (74-106); Potassium 3.8 mmol/L (3.5-5.1); Sodium 137 mmol/L (136-145)
[2023-12-01] MEDS: FLUOXETINE HCL 10 MG CAPSULE PO (08:45)
[2023-12-01] MEDS: ENOXAPARIN SODIUM 40 MG/0.4 ML SYRINGE SUBQ (08:45)
[2023-12-01] MEDS: ASPIRIN 81 MG TABLET.DR PO (08:45)
[2023-12-01] MEDS: ATORVASTATIN CALCIUM 40 MG TABLET PO (08:45)
--- NOTE | 2023-12-01 08:57 | P.HP_ITS ---
<Statement entered by Shaikh Hyun MD - 12/01/23 13:00> This documentation has been reviewed and approved. Seen and examined. Case discussed with Kat Patient presents with acute shortness of breath, cough with wheezing while he was at concern and thinks smog from the concern exacerbated his COPD. Exam Laying in bed, NAD Speaking in full sentences, no resp distress, exp wheezing noted, normal RR Normal HR, No murmur Assessment/treatment plan Acute resp failure with hypoxia COPD exacerbation HLD Patient treated with systemic steroids, inhaled bronchodilators. Was 83% on RA when arrived and required 3-4 L O2 via NC overnight. Improved rather quickly overnight and was on RA in the morning. He denied sob, and felt he could go home today. Stable for discharge on prednisone taper and azithromycin. Follow up with PCP in one week. HPI H&P: HPI History of Present Illness Chief complaint: Shortness of Breath Narrative: 12/01/23 0845 This is a 63-year-old male patient with a past medical history as outlined below including depression and COPD; who presented to the ED yesterday evening complaining of increased shortness of breath. He reports that 2 days ago he was at a nightclub for a concert and the band was using a fog machine and he began to become increasingly short of breath after being exposed to the chemical fog. He attempted to treat at home with his HFA inhalers with no improvement and presented to the ED yesterday for further evaluation. Workup in the ED was mostly unremarkable except for leukocytosis (21,000) and hypoxia (83% on room air). A chest x-ray was clear and a respiratory panel was negative. Unfortunately the patient remained hypoxic after breathing treatments in the ED, requiring up to 4 L of O2 supplementation to maintain O2 sats above 90%. He was admitted in observation to the hospitalist service yesterday evening. At the time of my exam this morning the patient is resting comfortably in bed. He continues to have a loose smoker's cough, but otherwise notes that his respiratory distress is significantly improved. Nursing has weaned the patient off of O2 supplementation and he is maintaining sats at 91 to 92%. As the patient is feeling improved and he is off oxygen supplementation, he is being discharged home in stable condition. We have prescribed DuoNeb treatments as he has run out of nebulizer medication. We have also prescribed a Z-Igor and a long prednisone taper. The patient should stay off of work for 1 more day for respiratory conservation. He should follow-up with his PCP or Dr. Boo in 3 to 5 days. Opioid HPI Opioid Management Most Recent Opioid Data: Last Pain Assessment 12/01/23 12:02 Last ORT Total Score 4 11/30/23 23:14 Last ORT Risk Category Moderate Risk 11/30/23 23:14 Review of Systems ROS Status of ROS 10 or more systems reviewed and unremark able except as noted in history and below [facility] Medical History (Updated 12/01/23 @ 10:29 by Kat Molina NP) COPD (chronic obstructive pulmonary disease) ?J44.9 - Chronic obstructive pulmonary disease, unspecified (ICD-10) Depression, unspecified ?F32.A - Depression, unspecified (ICD-10) Dyslipidemia ?E78.5 - Hyperlipidemia, unspecified (ICD-10) 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 Smoking status: Current every day smoker Second hand tobacco smoke exposure: No Non-prescribed substance use: cannabis (any form) Known occupational exposures/hazards: No Highest level of school completed/degree received: high school graduate Are you now , , , , never or living with a partner: living with partner In a typical week, how many times do you talk on the telephone with family, friends, or neighbors: 3 or more times per week How often do you get together with friends or relatives: 3 or more times per week How often do you attend religious or taoist services: 1-3 times per year Do you belong to any clubs or organizations such as religious groups unions, fraternal or athletic groups, or school groups: no Total score: 2 Score interpretation: A score of greater than or equal to 2 indicates the lowest level of social isolation. Little interest or pleasure in doing things: not at all Feeling down, depressed, or hopeless: not at all Feel stressed/tense/nervous/anxious/difficulty sleeping: not at all Due to disability, difficulty making decisions: No Do you think of yourself as: straight/heterosexual Gender Identity: male Meds Home Medications and Allergies Home Medications Medication Instructions Recorded Confirmed Type albuterol sulfate 90 mcg/actuation 2 inh inhalation Q4H PRN shortness 09/21/23 11/30/23 History aerosol inhaler of breath or wheezing aspirin 81 mg tablet,delayed 81 mg PO DAILY 09/21/23 11/30/23 History release atorvastatin 40 mg tablet 40 mg PO DAILY 09/21/23 11/30/23 History budesonide-formoterol HFA 160 2 inh inhalation Q12H 09/21/23 11/30/23 History mcg-4.5 mcg/actuation aerosol inhaler (Symbicort) fluoxetine 10 mg capsule 10 mg PO DAILY 09/21/23 11/30/23 History tiotropium bromide 2.5 2 puff inhalation Q24H 09/21/23 11/30/23 History mcg/actuation mist for inhalation (Spiriva Respimat) trazodone 50 mg tablet 50 mg PO BEDTIME 09/21/23 11/30/23 History azithromycin 250 mg tablet See Rx Instructions PO .COMPLEX #6 12/01/23 Rx (Zithromax Z-Igor) tabs ipratropium 0.5 mg-albuterol 3 mg 3 ml inhalation Q6H PRN shortness 12/01/23 Rx (2.5 mg base)/3 mL nebulization of breath or wheezing #90 mL soln prednisone 10 mg tablet See Rx Instructions .Route 12/01/23 Rx .COMPLEX 12 days #42 tabs Allergies Allergy/AdvReac Type Severity Reaction Status Date / Time No Known Drug Allergies Allergy Verified 09/21/23 00:12 Exam Constitutional Vital Signs, click to edit/add: Last Vital Signs Temp 97.6 F 12/01/23 07:53 Pulse 91 H 12/01/23 08:00 Resp 20 12/01/23 07:59 BP 134/68 12/01/23 07:53 Pulse Ox 91 L 12/01/23 07:55 O2 Del Method Room Air 12/01/23 07:55 O2 Flow Rate 2 12/01/23 07:53 Common normals: no apparent distress, oriented x3, alert and well nourished General appearance: cooperative Orientation/consciousness: Yes awake HENMT Common normals: normocephalic, head/scalp atraumatic, hearing grossly normal bilaterally, external nose normal and moist oral mucous membranes Eye Common normals: PERRL, EOMs intact bilaterally, conjunctivae normal and no scleral icterus Alignment: alignment normal Eyelid: eyelids normal Neck & C-Spine Common normals: full ROM, supple and no JVD Chest Common normals: inspection of chest normal Chest: symmetrical chest wall rise Respiratory Common normals: normal respiratory effort and no retractions Effort & inspection: uses accessory muscles (mild) and prolonged expiratory phase Auscultation: wheezes (Faint EE throughout); no crackles, no rales and no rhonchi Cardio Common normals: no JVD, regular rate, regular rhythm, S1 normal heart sound, S2 normal heart sound, no gallops, no clicks, no murmurs, no rub and peripheral pulses 2+ throughout GI Common normals: Normal to inspection, nondistended, normoactive bowel sounds present, soft to palpation, non-tender, no hepatosplenomegaly, no masses and no bruits Bladder/kidney exam: bladder normal to palpation Back & Pelvis Common normals: thoracic and lumbar spine normal to inspection Extremity Common normals: normal capillary refill and no pedal edema General: normal exam except as noted; no clubbing and no cyanosis Neuro Taj Coma Scale: GCS not evaluated Common normals: CN's II-XII intact bilaterally, moves all extremities, no focal motor deficits and no sensory deficits noted Speech: speech normal Motor exam: strength 5/5 throughout Psych Common normals: mental status grossly normal, thought process normal, affect normal and activity/motor behavior normal Results Labs Labs: Short CBC 11/30/23 12/01/23 Range/Units 19:05 04:47 WBC 21.0 H 17.5 H (4.0-11.0) 10^3/uL Hgb 12.9 L 12.2 L (14.0-18.0) g/dL Hct 39.4 L 39.1 L (42.0-54.0) % Plt Count 345 256 (150-450) 10^3/uL BMP 11/30/23 11/30/23 12/01/23 19:05 23:01 04:47 Sodium 136 137 Potassium 3.7 3.8 Chloride 101 103 Carbon Dioxide 27.0 25.9 BUN 11.0 11.0 Creatinine 0.79 0.80 Glucose 102 151 H 172 H Calcium 8.6 8.8 Liver Function 11/30/23 12/01/23 Range/Units 19:05 04:47 Total Bilirubin 1.1 H 0.7 (0.2-1.0) mg/dL AST 15 13 L (15-37) U/L ALT 18 13 L (16-63) U/L Alkaline Phosphatase 71 65 (46-116) U/L Albumin 3.2 L 2.8 L (3.4-5.0) g/dL Pulse Oximetry Attestation: I have reviewed the pertinent pulse oximetry results. Imaging Chest x-ray: Attestation: I have reviewed the pertinent imaging results. Radiologist's impression: FINDINGS/IMPRESSION: 1. Lungs are clear 2. No pneumothorax. No pleural effusion. 3. Heart size and mediastinal contours are normal 4. No acute osseous abnormality Assessment and Plan Assessment and Plan (1) Acute exacerbation of chronic obstructive pulmonary disease: Assessment and Plan: Acute * Adm observation on 11/30/23 * 2/2 chemical fog exposure * Duonebs scheduled & PRN * Solumedrol IVP q8h * Rocephin/Azithromycin for possible secondary bronchitis/pneumonitis * CBC, CMP daily Discharge: Discharge home on long prednisone taper, Z-pac for concurrent bronchitis, new duoneb neb treatments (2) Acute hypoxemic respiratory failure: Assessment and Plan: Acute * 2/2 acute COPD exacerbation * Resolved overnight w/ steroids and breathing treatments * Stable on RA w/ ambulation at 91-92% (3) Dyslipidemia: Assessment and Plan: Chronic * Continue home statin (4) Depression, unspecified: Assessment and Plan: Chronic * Continue home fluoxetine and trazodone
--- NOTE | 2023-12-01 10:45 | CM.NOTE ---
Medicare Outpatient Observation Notice discussed with pt, pt verbalizes understanding and signs paper. Original given to pt and copy placed on pt's chart.
--- NOTE | 2023-12-01 10:51 | CM.NOTE ---
Rounds made with delvis Rodriguez to discharge to home today. Pt up ad malik in room. Pt denies use of assistive devices at this time.
[2023-12-01] MEDS: BUDESONIDE 0.5 MG/2 ML AMPULE NEB IH (11:31)
--- NOTE | 2023-12-01 11:38 | SWNOTE1 ---
JALIL spoke to pt in regards to his nebulizer machine. Pt has a court order not to see or speak to his ex girlfriend. His home nebulizer is at her house and he need it. Pt has already called and left his community reinvestment act officer a message. JALIL called Cash, probation office as well and left message. Cash returned SW call, SW went to pt's room and SW and pt spoke to Cash. Cash recommended pt's ex bring his nebulizer to his office. JALIL asked permission to call pt's ex, Cash voiced this is alright for JALIL to do. JALIL called Marcia, pt's ex, and she gets off work at 3:00 and then will drop it off. JALIL provided address. JALIL updated pt.
--- NOTE | 2023-12-02 14:54 | CM.DCFOLLOWU ---
Person spoke with: Sam How are you feeling? Better- still tired How is your pain? No pain Did you understand your discharge instructions? Yes Do you have any questions about your discharge instructions? No Were you given any prescriptions at discharge? Yes Were you able to get your prescriptions filled? Yes Do you understand how to take your medications as ordered? Yes Do you have any questions about your follow up appointment and do you plan to keep your follow up appointment? No I am scheduled with Azul Vazquez and Dr. Boo and plan on going to [facility]. Is there anything else that you would like to discuss? No Questions/Comments/Concerns/Other:
== END 2023-12-01 15:40 | disposition home or self-care (01) ==
LOC: ER 20:17 → MS 22:59
PROVIDERS: Nurse Practitioner Acute Care; Admitting Provider Internal Medicine; Emergency Provider Student in an Organized Health Care Education/Training Program; PCP Nurse Practitioner; Visit Provider Internal Medicine
DX: J44.1 Chronic obstructive pulmonary disease with (acute) exacerbation (principal); J96.01 Acute respiratory failure with hypoxia; E78.5 Hyperlipidemia, unspecified; F32.A Depression, unspecified; Z77.098 Contact with and (suspected) exposure to other hazardous, chiefly nonmedicinal, chemicals; Z20.822 Contact with and (suspected) exposure to COVID-19; F17.210 Nicotine dependence, cigarettes, uncomplicated; Z90.89 Acquired absence of other organs; Z79.899 Other long term (current) drug therapy; Z79.82 Long term (current) use of aspirin
CPT/HCPCS: 0202U; 36415; 71045; 80053; 82947; 83605; 83880; 84484; 85007; 85025; 85027; 87040; 93005; 94640; 94761; 96365; 96372; 96375; 96376; 99285; G0378; J0456; J2930

== ENCOUNTER 2023-12-07 13:27 | Observation (INO) | payer MEDICARE, SELFPAY ==
[2023-12-07] VITALS (16 sets, daily range): BP systolic 149–168; BP diastolic 68–91; PULSE 78–88; RESP 16–28; TEMP 36.4–36.7; O2SAT 90–97; BMI 29.8; BMI 25.8
--- NOTE | 2023-12-07 13:28 | ECG_ITS ---
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
--- NOTE | 2023-12-07 13:28 | XR_ITS ---
The [address] [address] Patient Name: JUANITA KRAMER MRN: [id number] date: 1960 Sex: M Assigned Patient Location: ED.MAIN Current Patient Location: ER Accession/Order Number: [id number] Exam Date: 12/07/2023 14:00 Report Date: 12/07/2023 14:48 At the request of: ANG EDWARDS Procedure: XR chest 1V EXAM: XR chest 1V INDICATION: SOB. COMPARISON: Chest radiograph 11/30/2023. TECHNIQUE: Single frontal view of the chest FINDINGS: Normal cardiomediastinal contours. No acute infiltrative process. No pleural effusion or pneumothorax. No acute osseous abnormality. XR/XR chest 1V IMPRESSION: No acute cardiopulmonary process. Electronically authenticated by: ELENI STILES Date: 12/07/2023 14:48
--- NOTE | 2023-12-07 13:30 | ED_ITS ---
HPI - SOB/Dyspnea General Chief Complaint: Shortness of Breath/Dyspnea Stated Complaint: SOB Time Seen by Provider: 12/07/23 13:28 History of Present Illness HPI Narrative: 63-year-old male presents for difficulty breathing. 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 Paramedics brought him in after giving him Solu-Medrol and aerosol treatment. He feels somewhat better and was looking better according to the paramedics. He has not had a fever or cough. No hemoptysis. Related Data Home Medications Medication Instructions Recorded Confirmed albuterol sulfate 90 mcg/actuation 2 inh inhalation Q4H PRN shortness 09/21/23 11/30/23 aerosol inhaler of breath or wheezing aspirin 81 mg tablet,delayed 81 mg PO DAILY 09/21/23 11/30/23 release atorvastatin 40 mg tablet 40 mg PO DAILY 09/21/23 11/30/23 budesonide-formoterol HFA 160 2 inh inhalation Q12H 09/21/23 11/30/23 mcg-4.5 mcg/actuation aerosol inhaler (Symbicort) fluoxetine 10 mg capsule 10 mg PO DAILY 09/21/23 11/30/23 tiotropium bromide 2.5 2 puff inhalation Q24H 09/21/23 11/30/23 mcg/actuation mist for inhalation (Spiriva Respimat) trazodone 50 mg tablet 50 mg PO BEDTIME 09/21/23 11/30/23 Previous Rx's Medication Instructions Recorded azithromycin 250 mg tablet See Rx Instructions PO .COMPLEX #6 12/01/23 (Zithromax Z-Igor) tabs ipratropium 0.5 mg-albuterol 3 mg 3 ml inhalation Q6H PRN shortness 12/01/23 (2.5 mg base)/3 mL nebulization of breath or wheezing #90 mL soln prednisone 10 mg tablet See Rx Instructions .Route 12/01/23 .COMPLEX 12 days #42 tabs Allergies Allergy/AdvReac Type Severity Reaction Status Date / Time No Known Drug Allergies Allergy Verified 09/21/23 00:12 Review of Systems ROS Narrative A ten point review of systems is negative except as noted above. [facility] Medical History (Updated 12/07/23 @ 15:29 by Attila Hamlin MD) COPD (chronic obstructive pulmonary disease) ?J44.9 - Chronic obstructive pulmonary disease, unspecified (ICD-10) Depression, unspecified ?F32.A - Depression, unspecified (ICD-10) Dyslipidemia ?E78.5 - Hyperlipidemia, unspecified (ICD-10) 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 Smoking status: Current every day smoker Second hand tobacco smoke exposure: No Non-prescribed substance use: cannabis (any form) Known occupational exposures/hazards: No Highest level of school completed/degree received: high school graduate Are you now , , , , never or living with a partner: living with partner In a typical week, how many times do you talk on the telephone with family, friends, or neighbors: 3 or more times per week How often do you get together with friends or relatives: 3 or more times per week How often do you attend voodoo or sabianist services: 1-3 times per year Do you belong to any clubs or organizations such as voodoo groups unions, fraternal or athletic groups, or school groups: no Total score: 2 Score interpretation: A score of greater than or equal to 2 indicates the lowest level of social isolation. Little interest or pleasure in doing things: not at all Feeling down, depressed, or hopeless: not at all Feel stressed/tense/nervous/anxious/difficulty sleeping: not at all Due to disability, difficulty making decisions: No Do you think of yourself as: straight/heterosexual Gender Identity: male Exam Narrative Exam Narrative: Nurses note and vital signs reviewed and patient is not hypoxic. General: The patient appears mildly dyspneic Skin: Warm, minimally diaphoretic, no pallor noted. There is no rash noted. Head: Normocephalic, atraumatic Eye: Normal conjunctiva, no drainage Ears, Nose, Mouth, and Throat: oral mucosa is moist. Nares patent. Cardiovascular: Regular Rate and Rhythm Respiratory: Bilateral rhonchi present. Bilateral breath sounds are equal Back: non-tender GI: Soft and nontender Musculoskeletal: The patient has no evidence of calf tenderness, no pitting edema, symmetrical pulses noted bilaterally Neurological: A&O, normal speech Psychiatric: Cooperative Constitutional Vital Signs, click to edit/add: Last Vital Signs Temp 97.5 F L 12/07/23 13:25 Pulse 82 12/07/23 14:40 Resp 28 H 12/07/23 13:25 BP 149/68 H 12/07/23 14:16 Pulse Ox 95 12/07/23 14:40 O2 Del Method Nasal Cannula 12/07/23 13:46 O2 Flow Rate 2 12/07/23 13:46 Course Vital Signs Vital signs: Vital Signs Temperature 97.5 F L 12/07/23 13:25 Pulse Rate 88 12/07/23 13:25 Respiratory Rate 28 H 12/07/23 13:25 Blood Pressure 151/91 H 12/07/23 13:25 Pulse Oximetry 97 12/07/23 13:25 Oxygen Delivery Method Room Air 12/07/23 13:25 Temperature 97.5 F L 12/07/23 13:25 Pulse Rate 82 12/07/23 14:40 Respiratory Rate 28 H 12/07/23 13:25 Blood Pressure 149/68 H 12/07/23 14:16 Pulse Oximetry 95 12/07/23 14:40 Oxygen Delivery Method Nasal Cannula 12/07/23 13:46 Oxygen Delivery Flow Rate 2 12/07/23 13:46 MDM - SOB/Dyspnea MDM Narrative Medical decision making narrative: Influenza, COVID, and chest x-ray are negative. He was given aerosol treatment and IV steroid. He is going to be admitted for observation. He does not feel completely back to his baseline. Treatment diagnosis and disposition were discussed with the patient. Differential Diagnosis Differential diagnosis: Likely acute exacerbation of chronic obstructive airways disease, congestive heart failure and community acquired pneumonia Lab Data Attestation: I reviewed the patient's lab results. Labs: Lab Results 12/07/23 12/07/23 Range/Units 13:38 13:47 WBC 18.0 H (4.0-11.0) 10^3/uL RBC 4.37 L (4.70-6.10) 10^6/uL Hgb 12.8 L (14.0-18.0) g/dL Hct 40.2 L (42.0-54.0) % MCV 92.0 (80.0-94.0) fL MCH 29.3 (25.9-34.0) pg MCHC 31.8 (29.9-35.2) g/dL RDW 12.5 (11.0-15.0) % Plt Count 436 (150-450) 10^3/uL MPV 8.9 L (9.5-13.5) fL Seg Neuts % (Manual) 72.0 Lymphocytes % (Manual) 17.0 L (20.5-60.0) % Monocytes % (Manual) 11.0 (1.7-12.0) % Eosinophils % (Manual) 0.0 L (0.9-7.0) % Basophils % (Manual) 0.0 L (0.2-2.0) % Neutrophils # (Manual) 12.96 H (1.4-6.5) 10^3/uL Lymphocytes # (Manual) 3.06 (1.20-3.80) 10^3/uL Monocytes # (Manual) 1.98 H (0.30-0.80) 10^3/uL Eosinophils # (Manual) 0.00 (0.00-0.70) 10^3/uL Basophils # (Manual) 0.00 (0.00-0.10) 10^3/uL Sodium 136 (136-145) mmol/L Potassium 4.2 (3.5-5.1) mmol/L Chloride 101 (98-107) mmol/L Carbon Dioxide 29.3 (21.0-32.0) mmol/L Anion Gap 9.9 BUN 12.0 (7.0-18.0) mg/dL Creatinine 0.85 (0.70-1.30) mg/dL Est GFR ( Amer) >60 (>=60) Est GFR (Non-Af Amer) >60 (>=60) BUN/Creatinine Ratio 14.1 Glucose 167 H (74-106) mg/dL Calcium 8.3 L (8.5-10.1) mg/dL Troponin I High Sens <4.0 L (4.0-76.1) pg/mL Influenza Type A Ag Negative Influenza Type B Ag Negative SARS-CoV-2 Ag (CV2AG) Negative (NEGATIVE) Imaging Data Chest x-ray: Radiologist's impression: ITS Impressions Chest X-Ray 12/07/23 13:28 IMPRESSION: No acute cardiopulmonary process. Electronically authenticated by: ELENI STILES Date: 12/07/2023 14:48 ECG Data Attestation: I personally reviewed and interpreted this ECG as follows: (EKG on my interpretation shows normal sinus rhythm without acute change, rate of 78) Critical Care Time Critical Care Time Critical Care Time: Yes Total Critical Care Time: 35 Attestation: Due to the high probability of sudden and clinically significant deterioration in the patient's condition he/she required the highest level of my preparedness to intervene urgently I provided critical care time including documentation time, medication orders and management, reevaluation, vital sign assessment, ordering and reviewing of lab tests, ordering and reviewing of x-ray studies, and admission orders. Aggregate critical care time is 35 minutes including only time during which I was engaged in work directly related to his/her care and did not include time spent treating other patients simultaneously. Discharge Plan Discharge Chief Complaint: Shortness of Breath/Dyspnea Clinical Impression: Acute exacerbation of chronic obstructive pulmonary disease Patient Disposition: Admitted as Observation Time of Disposition Decision: 15:29 Condition: Good
--- OUTSIDE RECORDS SUMMARY | 2023-12-07 13:31 | XMS_ITS | CCD ---
Author Name Unknown Address [address] [place] [address] Organization [facility] Care Team Providers Care Maintenance Parts Technician Name Role Phone SAMSA, JAMESON Admitting Unavailable SAMSA, JAMESON Attending Unavailable AICHHOLZ, FARMWORKER FIELD CROP AZUL Referring Unavailable AICHHOLZ, FARMWORKER FIELD CROP AZUL Primary Care Unavailable SAMSA, JAMESON Consulting Unavailable AICHHOLZ, FARMWORKER FIELD CROP AZUL Admitting Unavailable AICHHOLZ, FARMWORKER FIELD CROP AZUL Attending Unavailable AICHHOLZ, FARMWORKER FIELD CROP AZUL Primary Care Unavailable AICHHOLZ, FARMWORKER FIELD CROP AZUL Consulting Unavailable SAMSA, JAMESON Admitting Unavailable SAMSA, JAMESON Attending Unavailable AICHHOLZ, FARMWORKER FIELD CROP AZUL Primary Care Unavailable ZIEBALMA, DR YARIEL Figueroa Consulting Unavailable SAMSA, JAMESON Consulting Unavailable AICHHOLZ, FARMWORKER FIELD CROP AZUL Primary Care Unavailable DAREN, DR MAURO Admitting Unavailable DAREN, DR MAURO Attending Unavailable WHITNEY, DR YARIEL Figueroa Consulting Unavailable DAREN, DR MAURO Consulting Unavailable Kiko Zurita MD Primary Care Provider [phone] Damien GREASE CUP FILLER, Azul Unavailable Kiko Zurita MD Primary Care [...] B (Bld) [Mass/Vol] 42.0 pg/mL Normal <=900.0 [facility] Comment on above: Performed By: #### I NFLUAB #### [facility] [address] [place] [address] Dr. Tom Dotson CBC AUTO DIFFon 09-25-2022 BASO # 0.1 103/ul Normal 0.0-0.1 [facility] Comment on above: Performed By: #### C BC #### [facility] [address] [place] [address] Dr. Tom Dotson Basophils/100 WBC (Bld) 0.8 % Normal 0.2-2.0 [facility] Comment on above: Performed By: #### C BC #### [facility] [address] [place] [address] Dr. Tom Dotson EO # 0.0 103/ul Normal 0.0-0.7 [facility] Comment on above: Performed By: #### C BC #### [facility] [address] [place] [address] Dr. Tom Dotson Eosinophils/100 WBC (Bld) 0.0 % Critically low 0.9-7.0 [facility] Comment on above: Performed By: #### C BC #### [facility] [address] [place] [address] Dr. Tom Dotson Erythrocyte distribution width (RBC) [Ratio] 12.4 % Normal 11.0-15.0 [facility] Comment on above: Performed By: #### C BC #### [facility] [address] [place] [address] Dr. Tom Dotson Hematocrit (Bld) [Volume fraction] 43.6 % Normal 42.0-54.0 [facility] Comment on above: Performed By: #### C BC #### [facility] [address] [place] [address] Dr. Tom Dotson Hemoglobin (Bld) [Mass/Vol] 14.3 g/dL Normal 14.0-18.0 [facility] Comment on above: Performed By: #### C BC #### [facility] [address] [place] [address] Dr. Tom Dotson IG # 0.02 10e3/ul Normal 0.00-0.03 [facility] Comment on above: Performed By: #### C BC #### [facility] [address] [place] [address] Dr. Tom Dotson IG % 0.3 % Normal 0.0-0.5 [facility] Comment on above: Performed By: #### C BC #### [facility] [address] [place] [address] Dr. Tom Dotson LYMPH # 1.4 103/ul Normal 1.2-3.8 [facility] Comment on above: Performed By: #### C BC #### [facility] [address] [place] [address] Dr. Tom Dotson Lymphocytes/100 WBC (Bld) 17.3 % Critically low 20.5-60.0 [facility] Comment on above: Performed By: #### C BC #### [facility] [address] [place] [address] Dr. Tom Dotson MANUAL DIFF REQ NO Normal [facility] Comment on above: Performed By: #### C BC #### [facility] [address] [place] [address] Dr. Tom Dotson MCH (RBC) [Entitic mass] 29.8 pg Normal 25.9-34.0 [facility] Comment on above: Performed By: #### C BC #### [facility] [address] [place] [address] Dr. Tom Dotson MCHC (RBC) [Mass/Vol] 32.8 g/dL Normal 29.9-35.2 [facility] Comment on above: Performed By: #### C BC #### [facility] [address] [place] [address] Dr. Tom Dotson MCV (RBC) [Entitic vol] 90.8 fL Normal 80.0-94.0 [facility] Comment on above: Performed By: #### C BC #### [facility] [address] [place] [address] Dr. Tom Dotson MONO # 0.7 103/ul Normal 0.3-0.8 [facility] Comment on above: Performed By: #### C BC #### [facility] [address] [place] [address] Dr. Tom Dotson Monocytes/100 WBC (Bld) 9.4 % Normal 1.7-12.0 [facility] Comment on above: Performed By: #### C BC #### [facility] [address] [place] [address] Dr. Tom Dotson NEUT # 5.7 103/ul Normal 1.4-6.5 [facility] Comment on above: Performed By: #### C BC #### [facility] [address] [place] [address] Dr. Tom Dotson Neutrophils/100 WBC (Bld) 72.2 % Normal 43.0-75.0 [facility] Comment on above: Performed By: #### C BC #### [facility] [address] [place] [address] Dr. Tom Dotson Platelet mean volume (Bld) [Entitic vol] 9.6 fL Normal 9.5-13.5 [facility] Comment on above: Performed By: #### C BC #### [facility] [address] [place] [address] Dr. Tom Dotson PLT 331 103/ul Normal 150-450 [facility] Comment on above: Performed By: #### C BC #### [facility] [address] [place] [address] Dr. Tom Dotson RBC 4.80 106/ul Normal 4.70-6.10 [facility] Comment on above: Performed By: #### C BC #### [facility] [address] [place] [address] Dr. Tom Dotson WBC 7.8 103/ul Normal 4.0-11.0 [facility] Comment on above: Performed By: #### C BC #### [facility] [address] [place] [address] Dr. Tom Dotson CULTURE BLOODon 09-25-2022 Microscopic examination of blood, culture Culture Observations: NO GROWTH AT 5 DAYS. Normal [facility] Comment on above: Performed By: #### I NFLUAB #### [facility] [address] [place] [address] Dr. Tom Dotson Microscopic examination of blood, culture Culture Observations: NO GROWTH AT 5 DAYS. Normal [facility] Comment on above: Performed By: #### I NFLUAB #### [facility] [address] [place] [address] Dr. Tom Dotson Covid-19 PCR (CVDTB)on SARS-CoV-2 (COVID-19) RNA OLGA+probe Ql (Unsp spec) Not detected Normal NOT DETECTED [facility] Comment on above: Result Comment: When [...] for this test is supported by the [place] of Health and Human Service's declaration that [...] used). Performed By: #### C VDTBH #### [facility] [address] [place] [address] Dr. Tom Dotson INFLUENZA A AND B AGon 09-25 INFLUANEGH SEE BELOW Normal [facility] Comment on above: Result Comment: Nega tive for Flu A protein angiten. Infection due to Flu A cannot be ruled out. Flu A angiten in the sample may be below the detection limit of the test. Performed By: #### I NFLUAB #### [facility] [address] [place] [address] Dr. Tom Dotson INFLUBNEG SEE BELOW Normal [facility] Comment on above: Result Comment: Nega tive for Flu B protein antigen. Infection due to Flu B cannot be ruled out. Flu B antigen in the sample may be below the detection limit of the test. Performed By: #### I NFLUAB #### [facility] [address] [place] [address] Dr. Tom Dotson INFLUENZA A AG Negative Normal NEGATIVE SEE COMMENT [facility] Comment on above: Performed By: #### I NFLUAB #### [facility] [address] [address] [address] Tom Dotson INFLUENZA B AG Negative Normal NEGATIVE SEE COMMENT [facility] Comment on above: Performed By: #### I NFLUAB #### [facility] [address] [address] [address] Tom Dotson LACTATE/LACTIC ACIDon 2022 Lactate [Moles/Vol] 0.7 mmol/L Normal 0.4-1.9 [facility] Comment on above: Performed By: #### L ACT #### [facility] [address] [place] [address] Dr. Tom Doston PROF CHEM 8 (BAS METB)on Anion gap [Moles/Vol] 9.3 mmol/L Normal [facility] Comment on above: Performed By: #### H STROPN, BMP, BNP #### [facility] [address] [place] [address] Dr. Tom Dotson Calcium [Mass/Vol] 8.8 mg/dL Normal 8.5-10.1 [facility] Comment on above: Performed By: #### H STROPN, BMP, BNP #### [facility] [address] [address] [address] Tom Dotson Chloride [Moles/Vol] 103 mmol/L Normal 98-107 [facility] Comment on above: Performed By: #### H STROPN, BMP, BNP #### [facility] [address] [address] [address] Tom Dotson CO2 [Moles/Vol] 31.1 mmol/L Normal 21.0-32.0 [facility] Comment on above: Performed By: #### H STROPN, BMP, BNP #### [facility] [address] [place] [address] Dr. Tom Dotson Creatinine [Mass/Vol] 0.77 mg/dL Normal 0.70-1.30 [facility] Comment on above: Performed By: #### H STROPN, BMP, BNP #### [facility] [address] [address] [address] Tom Dotson EGFR-AF URUGUAYAN >60 Normal >=60 [facility] Comment on above: Performed By: #### H STROPN, BMP, BNP #### [facility] [address] [address] [address] Tom Dotson EGFR-NON AF URUGUAYAN >60 Normal >=60 [facility] Comment on above: Performed By: #### H STROPN, BMP, BNP #### [facility] [address] [address] [address] Tom Dotson Glucose [Mass/Vol] 98 mg/dL Normal 74-106 [facility] Comment on above: Performed By: #### H STROPN, BMP, BNP #### [facility] [address] [address] [address] Tom Dotson Potassium [Moles/Vol] 4.4 mmol/L Normal 3.5-5.1 [facility] Comment on above: Performed By: #### H STROPN, BMP, BNP #### [facility] [address] [address] [address] Tom Dotson Sodium [Moles/Vol] 139 mmol/L Normal 136-145 [facility] Comment on above: Performed By: #### H STROPN, BMP, BNP #### [facility] [address] [address] [address] Tom Dotson Urea nitrogen [Mass/Vol] 13.0 mg/dL Normal 7.0-18.0 [facility] Comment on above: Performed By: #### H STROPN, BMP, BNP #### [facility] [address] [address] [address] Tom Dotson Urea nitrogen/Creatinine [Mass ratio] 16.9 mg/mg Normal [facility] Comment on above: Performed By: #### H STROPN, BMP, BNP #### [facility] [address] [place] [address] Dr. Tom Dotson TROPONIN, HIGH SENSITIVITYon 09-25-2022 HSTROP 7.4 pg/mL Normal 4.0-76.1 [facility] Comment on above: Result Comment: CUT- OFF POINTS HAVE BEEN ESTABLISHED BASED ON THE FOURTH UNIVERSAL DEFINITIONS OF MYOCARDIAL INFARCTION. THE UPPER REFERENCE LIMIT (URL) OF TROPONIN, DEFINED THE 99TH PERCENTILE OF cTnI DISTRIBUTION IN A REFERENCE POPULATION, HAS BEEN CONFIRMED THE DECISION THRESHOLD FOR LA DIAGNOSIS. Performed By: #### I NFLUAB #### [facility] [address] [place] [address] Dr. oTm Dotson XR CHEST 1 Von 09-25-2022 XR [...] YARIEL OLSON Date: 2022-09-25 10:55 Normal [facility] ASPERGILLUS AB, QUANTITATIVE DIDon 04-20-2022 Aspergillus flavus Negative Normal Neg:<1:1 [facility] Comment on above: Performed By: #### A SPDID #### [facility] [address] [place] [address] Dr. Tom Dotson Aspergillus fumigatus Negative Normal Neg:<1:1 [facility] Comment on above: Performed By: #### A SPDID #### [facility] [address] [place] [address] Dr. Tom Dotson Aspergillus niger Negative Normal Neg:<1:1 [facility] Comment on above: Performed By: #### A SPDID #### [facility] [address] [place] [address] Dr. Tom Dotson ANTI NEUTROPHIL CYTOPLASMIC AB (ANCA) PRon 04-19-2022 Anti-MPO Antibodies <0.2 Normal 0.0-0.9 [facility] Comment on above: Result Comment: Perf ormed at: BN Performed By: #### C BC #### [facility] [address] [place] [address] Dr. Tom Dotson Anti-PR3 Antibodies <0.2 Normal 0.0-0.9 [facility] Comment on above: Result Comment: Perf ormed at: BN Performed By: #### C BC #### [facility] [address] [place] [address] Dr. Tom Dotson Atypical pANCA <1:20 Normal Neg:<1:20 [facility] Comment on above: Result Comment: The atypical pANCA pattern has been observed in a significant percentage of patients with ulcerative colitis, primary sclerosing cholangitis and autoimmune hepatitis. Performed at: CB Performed By: #### C BC #### [facility] [address] [place] [address] Dr. Tom Dotson Cytoplasmic (C-ANCA) <1:20 Normal Neg:<1:20 [facility] Comment on above: Result Comment: Perf ormed at: CB Performed By: #### C BC #### [facility] [address] [place] [address] Dr. Tom Dotson Perinuclear (P-ANCA) <1:20 Normal Neg:<1:20 [facility] Comment on above: Result Comment: The presence of positive fluorescence exhibiting P-ANCA or C-ANCA patterns alone is not specific for the diagnosis of Nevin's Granulomatosis (WG) or microscopic polyangiitis. Decisions about treatment should not be based solely on ANCA IFA results. The [employer] ANCA [employer] Consensus recommends follow up testing of positive sera with both ND-3 and MPO-ANCA enzyme immunoassays. As many as 5% serum samples are positive only by EIA. Ref. AM J Clin Pathol 1999;111:507-513. Performed at: CB Performed By: #### C BC #### [facility] [address] [place] [address] Dr. Tom Dotson IMMUNOGLOBULIN E, TOTALon Immunoglobulin E, Total 68 IU/mL Normal 6-495 [facility] Comment on above: Performed By: #### I RIAOT #### [facility] [address] [place] [address] Dr. Tom Dotson ANGIOTENSION-CONVERTING ENZY ME (ELINOR)on 04-17-2022 ELINOR 28 U/L Normal 14-82 [facility] Comment on above: Performed By: #### A NGIOC #### [facility] [address] [place] [address] Dr. Tom Dotson CBC AUTO DIFFon 04-16-2022 BASO # 0.1 103/ul Normal 0.0-0.1 [facility] Comment on above: Performed By: #### I NFLUAB #### [facility] [address] [place] [address] Dr. Tom Dotson Basophils/100 WBC (Bld) 1.0 % Normal 0.2-2.0 [facility] Comment on above: Performed By: #### I NFLUAB #### [facility] [address] [place] [address] Dr. Tom Dotson EO # 0.0 103/ul Normal 0.0-0.7 [facility] Comment on above: Performed By: #### I NFLUAB #### [facility] [address] [place] [address] Dr. Tom Dotson Eosinophils/100 WBC (Bld) 0.1 % Critically low 0.9-7.0 [facility] Comment on above: Performed By: #### I NFLUAB #### [facility] [address] [place] [address] Dr. Tom Dotson Erythrocyte distribution width (RBC) [Ratio] 12.9 % Normal 11.0-15.0 [facility] Comment on above: Performed By: #### I NFLUAB #### [facility] [address] [place] [address] Dr. Tom Dotson Hematocrit (Bld) [Volume fraction] 44.8 % Normal 42.0-54.0 [facility] Comment on above: Performed By: #### I NFLUAB #### [facility] [address] [place] [address] Dr. Tom Dotson Hemoglobin (Bld) [Mass/Vol] 15.0 g/dL Normal 14.0-18.0 [facility] Comment on above: Performed By: #### I NFLUAB #### [facility] [address] [place] [address] Dr. Tom Dotson IG # 0.02 10e3/ul Normal 0.00-0.03 [facility] Comment on above: Performed By: #### I NFLUAB #### [facility] [address] [address] [address] Tom Dotson IG % 0.2 % Normal 0.0-0.5 [facility] Comment on above: Performed By: #### I NFLUAB #### [facility] [address] [address] [address] Tom Dotson LYMPH # 1.4 103/ul Normal 1.2-3.8 [facility] Comment on above: Performed By: #### I NFLUAB #### [facility] [address] [address] [address] Tom Dotson Lymphocytes/100 WBC (Bld) 17.6 % Critically low 20.5-60.0 [facility] Comment on above: Performed By: #### I NFLUAB #### [facility] [address] [place] [address] Dr. Tom Dotson MANUAL DIFF REQ NO Normal [facility] Comment on above: Performed By: #### I NFLUAB #### [facility] [address] [address] [address] Tom Dotson MCH (RBC) [Entitic mass] 30.9 pg Normal 25.9-34.0 [facility] Comment on above: Performed By: #### I NFLUAB #### [facility] [address] [place] [address] Dr. Tom Dotson MCHC (RBC) [Mass/Vol] 33.5 g/dL Normal 29.9-35.2 [facility] Comment on above: Performed By: #### I NFLUAB #### [facility] [address] [address] [address] Tom Dotson MCV (RBC) [Entitic vol] 92.2 fL Normal 80.0-94.0 [facility] Comment on above: Performed By: #### I NFLUAB #### [facility] [address] [place] [address] Dr. Tom Dotson MONO # 0.8 103/ul Normal 0.3-0.8 [facility] Comment on above: Performed By: #### I NFLUAB #### [facility] [address] [address] [address] Tom Dotson Monocytes/100 WBC (Bld) 9.6 % Normal 1.7-12.0 [facility] Comment on above: Performed By: #### I NFLUAB #### [facility] [address] [address] [address] Tom Dotson NEUT # 5.9 103/ul Normal 1.4-6.5 [facility] Comment on above: Performed By: #### I NFLUAB #### [facility] [address] [place] [address] Dr. Tom Dotson Neutrophils/100 WBC (Bld) 71.5 % Normal 43.0-75.0 [facility] Comment on above: Performed By: #### I NFLUAB #### [facility] [address] [place] [address] Dr. Tom Dotson Platelet mean volume (Bld) [Entitic vol] 9.9 fL Normal 9.5-13.5 [facility] Comment on above: Performed By: #### I NFLUAB #### [facility] [address] [place] [address] Dr. Tom Dotson PLT 325 103/ul Normal 150-450 [facility] Comment on above: Performed By: #### I NFLUAB #### [facility] [address] [place] [address] Dr. Tom Dotson RBC 4.86 106/ul Normal 4.70-6.10 [facility] Comment on above: Performed By: #### I NFLUAB #### [facility] [address] [place] [address] Dr. Tom Dotson WBC 8.2 103/ul Normal 4.0-11.0 [facility] Comment on above: Performed By: #### I NFLUAB #### [facility] [address] [place] [address] LUNG CANCER SCREENINGon [...] YARIEL OLSON Date: 2022-04-10 22:57 Normal [facility] CBC AUTO DIFFon 03-06-2022 BASO # 0.1 103/ul Normal 0.0-0.1 [facility] Comment on above: Performed By: #### C BC #### [facility] [address] [place] [address] Dr. Tom Dotson Basophils/100 WBC (Bld) 1.0 % Normal 0.2-2.0 [facility] Comment on above: Performed By: #### C BC #### [facility] [address] [address] [address] Tom Dotson EO # 2.5 103/ul Critically high 0.0-0.7 [facility] Comment on above: Performed By: #### C BC #### [facility] [address] [address] [address] Tom Dotson Eosinophils/100 WBC (Bld) 29.1 % Critically high 0.9-7.0 [facility] Comment on above: Performed By: #### C BC #### [facility] [address] [place] [address] Dr. Tom Dotson Erythrocyte distribution width (RBC) [Ratio] 12.8 % Normal 11.0-15.0 [facility] Comment on above: Performed By: #### C BC #### [facility] [address] [place] [address] Dr. Tom Dotson Hematocrit (Bld) [Volume fraction] 46.6 % Normal 42.0-54.0 [facility] Comment on above: Performed By: #### C BC #### [facility] [address] [place] [address] Dr. Tom Dotson Hemoglobin (Bld) [Mass/Vol] 14.4 g/dL Normal 14.0-18.0 [facility] Comment on above: Performed By: #### C BC #### [facility] [address] [place] [address] Dr. Tom Dotson IG # 0.04 10e3/ul Critically high 0.00-0.03 [facility] Comment on above: Performed By: #### C BC #### [facility] [address] [place] [address] Dr. Tom Dtoson IG % 0.5 % Normal 0.0-0.5 [facility] [place] Comment on above: Performed By: #### C BC #### [facility] [address] [place] [address] Dr. Tom Dotson LYMPH # 1.3 103/ul Normal 1.2-3.8 [facility] Comment on above: Performed By: #### C BC #### [facility] [address] [place] [address] Dr. Tom Dotson Lymphocytes/100 WBC (Bld) 15.1 % Critically low 20.5-60.0 [facility] [place] Comment on above: Performed By: #### C BC #### [facility] [address] [place] [address] Dr. Tom Dotson MANUAL DIFF REQ NO Normal [facility] Comment on above: Performed By: #### C BC #### [facility] [address] [place] [address] Dr. Tom Dotson MCH (RBC) [Entitic mass] 29.5 pg Normal 25.9-34.0 [facility] [place] Comment on above: Performed By: #### C BC #### [facility] [address] [place] [address] Dr. Tom Dotson MCHC (RBC) [Mass/Vol] 30.9 g/dL Normal 29.9-35.2 [facility] [place] Comment on above: Performed By: #### C BC #### [facility] [address] [place] [address] Dr. Tom Dotson MCV (RBC) [Entitic vol] 95.5 fL Critically high 80.0-94.0 [facility] [place] Comment on above: Performed By: #### C BC #### [facility] [address] [place] [address] Dr. Tom Dotson MONO # 0.8 103/ul Normal 0.3-0.8 [facility] [place] Comment on above: Performed By: #### C BC #### [facility] [address] [place] [address] Dr. Tom Dotson Monocytes/100 WBC (Bld) 9.5 % Normal 1.7-12.0 [facility] [place] Comment on above: Performed By: #### C BC #### [facility] [address] [place] [address] Dr. Tom Dotson NEUT # 3.9 103/ul Normal 1.4-6.5 [facility] Comment on above: Performed By: #### C BC #### [facility] [address] [place] [address] Dr. Tom Dotson Neutrophils/100 WBC (Bld) 44.8 % Normal 43.0-75.0 [facility] [place] Comment on above: Performed By: #### C BC #### [facility] [address] [place] [address] Dr. Tom Dotson Platelet mean volume (Bld) [Entitic vol] 10.2 fL Normal 9.5-13.5 [facility] [place] Comment on above: Performed By: #### C BC #### [facility] [address] [place] [address] Dr. Tom Dotson PLT 328 103/ul Normal 150-450 [facility] Comment on above: Performed By: #### C BC #### [facility] [address] [place] [address] Dr. Tom Dotson RBC 4.88 106/ul Normal 4.70-6.10 [facility] Comment on above: Performed By: #### C BC #### [facility] [address] [place] [address] Dr. Tom Dotson WBC 8.7 103/ul Normal 4.0-11.0 [facility] Comment on above: Performed By: #### C BC #### [facility] [address] [place] [address] Dr. Tom Dotson DIFFERENTIAL MANUALon 2021 ATYPICAL LYMPH # 0.09 103/ul Normal [facility] Comment on above: Performed By: #### D IFF #### [facility] [address] [place] [address] Dr. Tom Dotson ATYPICAL LYMPH % 1 % Normal [facility] Comment on above: Performed By: #### D IFF #### [facility] [address] [place] [address] Dr. Tom Dotson BAND # 0.0 103/ul Normal 0.0-0.3 [facility] Comment on above: Performed By: #### D IFF #### [facility] [address] [place] [address] Dr. Tom Dotson BAND % 0 % Normal 0-5 [facility] Comment on above: Performed By: #### D IFF #### [facility] [address] [place] [address] Dr. Tom Dotson BASOM # 0.00 103/ul Normal 0.00-0.10 [facility] Comment on above: Performed By: #### D IFF #### [facility] [address] [place] [address] Dr. Tom Dotson BASOM % 0.0 % Critically low 0.2-2.0 [facility] Comment on above: Performed By: #### D IFF #### [facility] [address] [place] [address] Dr. Tom Dotson BLAST # Normal [facility] [place] Comment on above: Performed By: #### D IFF #### [facility] [address] [place] [address] Dr. Tom Dotson BLAST % Normal [facility] [place] Comment on above: Performed By: #### D IFF #### [facility] [address] [place] [address] Dr. Tom Dotson CORRECTED WBC Normal 4.0-11.0 [facility] Comment on above: Performed By: #### D IFF #### [facility] [address] [place] [address] Dr. Tom Dotson EOS # 1.22 103/ul Critically high 0.00-0.70 [facility] Comment on above: Performed By: #### D IFF #### [facility] [address] [place] [address] Dr. Tom Dotson EOS% 14.0 % Critically high 0.9-7.0 [facility] Comment on above: Performed By: #### D IFF #### [facility] [address] [place] [address] Dr. Tom Dotson LYMPHM # 1.91 103/ul Normal 1.20-3.80 [facility] Comment on above: Performed By: #### D IFF #### [facility] [address] [place] [address] Dr. Tom Dotson LYMPHM% 22.0 % Normal 20.5-60.0 [facility] Comment on above: Performed By: #### D IFF #### [facility] [address] [place] [address] Dr. Tom Dotson METAMYELOCYTE # Normal [facility] Comment on above: Performed By: #### D IFF #### [facility] [address] [place] [address] Dr. Tom Dotson METAMYELOCYTE % Normal [facility] Comment on above: Performed By: #### D IFF #### [facility] [address] [place] [address] Dr. Tom Dotson MONOM# 0.52 103/ul Normal 0.30-0.80 [facility] [place] Comment on above: Performed By: #### D IFF #### [facility] [address] [place] [address] Dr. Tom Dotson MONOM% 6.0 % Normal 1.7-12.0 [facility] [place] Comment on above: Performed By: #### D IFF #### [facility] [address] [place] [address] Dr. Tom Dotson MYELOCYTE # Normal [facility] [place] Comment on above: Performed By: #### D IFF #### [facility] [address] [place] [address] Dr. Tom Dotson MYELOCYTE % Normal [facility] [place] Comment on above: Performed By: #### D IFF #### [facility] [address] [place] [address] Dr. Tom Dotson NRBC Normal [facility] [place] Comment on above: Performed By: #### D IFF #### [facility] [address] [place] [address] Dr. Tom Dotson SEG # 4.96 103/ul Normal 1.40-6.50 [facility] [place] Comment on above: Performed By: #### D IFF #### [facility] [address] [place] [address] Dr. Tom Dotson SEG % 57.0 % Normal 43.0-75.0 [facility] [place] Comment on above: Performed By: #### D IFF #### [facility] [address] [place] [address] Dr. Tom Dotson WBC 8.7 103/ul Normal 4.0-11.0 [facility] [place] Comment on above: Performed By: #### D IFF #### [facility] [address] [place] [address] Dr. Tom Dotson LIPID PROFILEon 06-15-2022 CHOL-HDL RATIO NORM SEE BELOW Normal [facility] Comment on above: Result Comment: 3.3 - 4.4 LOW RISK 4.4 - 7.1 AVERAGE RISK 7.1 - 11.0 MODERATE RISK >11.0 HIGH RISK Performed By: #### I NFLUAB #### [facility] [address] [address] [address] Tom Dotson Cholesterol [Mass/Vol] 135 mg/dL Normal <=200 [facility] [place] Comment on above: Performed By: #### I NFLUAB #### [facility] [address] [address] [address] Tom Dotson Cholesterol in HDL [Mass/Vol] 51 mg/dL Normal 40-60 [facility] [place] Comment on above: Performed By: #### I NFLUAB #### [facility] [address] [address] [address] Tom Dotson Cholesterol in LDL [Mass/Vol] 74.4 mg/dL Normal [facility] [place] Comment on above: Performed By: #### I NFLUAB #### [facility] [address] [address] [address] Tom Dotson Cholesterol.total/Ch olesterol in HDL [Mass ratio] 2.6 {ratio} Normal [facility] [place] Comment on above: Performed By: #### I NFLUAB #### [facility] [address] [address] [address] Tom Dotson HDL NORMAL > or = 60 mg/dl - LO W CARDIOVASCULAR RISK <40 mg/dl - HIGH CARDIOVASCULAR RISK Normal [facility] [place] Comment on above: Performed By: #### I NFLUAB #### [facility] [address] [address] [address] Tom Dotson LDL CALC NORMAL SEE BELOW Normal [facility] Comment on above: Result Comment: <100 mg/dl OPTIMAL 100 - 129 mg/dl NEAR OR ABOVE OPTIMAL 130 - 159 mg/dl BORDERLINE HIGH 160 - 189 mg/dl HIGH >190 mg/dl VERY HIGH Performed By: #### I NFLUAB #### [facility] [address] [address] [address] Tom Dotson Triglyceride [Mass/Vol] 48 mg/dL Normal <=150 [facility] Comment on above: Performed By: #### I NFLUAB #### [facility] [address] [place] [address] Dr. Tom Dotson VLDL CALC 9.6 mg/dL Normal [facility] [place] Comment on above: Performed By: #### I NFLUAB #### [facility] [address] [place] [address] Dr. Tom Dotson PROF 14(COMP METB)on 022 Albumin [Mass/Vol] 3.8 g/dL Normal 3.4-5.0 [facility] Comment on above: Performed By: #### I NFLUAB #### [facility] [address] [place] [address] Dr. Tom Dotson Albumin/Globulin [Mass ratio] 1.1 {ratio} Normal [facility] [place] Comment on above: Performed By: #### I NFLUAB #### [facility] [address] [place] [address] Dr. Tom Dotson ALP [Catalytic activity/Vol] 62 U/L Normal 46-116 [facility] [place] Comment on above: Performed By: #### I NFLUAB #### [facility] [address] [place] [address] Dr. Tom Dotson ALT [Catalytic activity/Vol] 25 U/L Normal 16-63 [facility] [place] Comment on above: Performed By: #### I NFLUAB #### [facility] [address] [place] [address] Dr. Tom Dotson Anion gap [Moles/Vol] 9.8 mmol/L Normal [facility] [place] Comment on above: Performed By: #### I NFLUAB #### [facility] [address] [place] [address] Dr. Tom Dotson AST [Catalytic activity/Vol] 15 U/L Normal 15-37 [facility] [place] Comment on above: Performed By: #### I NFLUAB #### [facility] [address] [place] [address] Dr. Tom Dotson Bilirubin [Mass/Vol] 0.9 mg/dL Normal 0.2-1.0 [facility] [place] Comment on above: Performed By: #### I NFLUAB #### [facility] [address] [place] [address] Dr. Tom Dotson Calcium [Mass/Vol] 8.8 mg/dL Normal 8.5-10.1 [facility] Comment on above: Performed By: #### I NFLUAB #### [facility] [address] [address] [address] Tom Dotson Chloride [Moles/Vol] 102 mmol/L Normal 98-107 [facility] [place] Comment on above: Performed By: #### I NFLUAB #### [facility] [address] [place] [address] Dr. Tom Dotson CO2 [Moles/Vol] 30.5 mmol/L Normal 21.0-32.0 [facility] Comment on above: Performed By: #### I NFLUAB #### [facility] [address] [place] [address] Dr. Tom Dotson Creatinine [Mass/Vol] 0.95 mg/dL Normal 0.70-1.30 [facility] [place] Comment on above: Performed By: #### I NFLUAB #### [facility] [address] [place] [address] Dr. Tom Dotson EGFR-AF URUGUAYAN >60 Normal >=60 [facility] Comment on above: Performed By: #### I NFLUAB #### [facility] [address] [place] [address] Dr. Tom Dotson EGFR-NON AF URUGUAYAN >60 Normal >=60 [facility] [place] Comment on above: Performed By: #### I NFLUAB #### [facility] [address] [place] [address] Dr. Tom Dotson Globulin (S) [Mass/Vol] 3.4 g/dL Normal [facility] [place] Comment on above: Performed By: #### I NFLUAB #### [facility] [address] [place] [address] Dr. Tom Dotson Glucose [Mass/Vol] 85 mg/dL Normal 74-106 [facility] Comment on above: Performed By: #### I NFLUAB #### [facility] [address] [address] [address] Tom Dotson Potassium [Moles/Vol] 4.3 mmol/L Normal 3.5-5.1 [facility] [place] Comment on above: Performed By: #### I NFLUAB #### [facility] [address] [address] [address] Tom Dotson Protein [Mass/Vol] 7.2 g/dL Normal 6.4-8.2 [facility] Comment on above: Performed By: #### I NFLUAB #### [facility] [address] [place] [address] Dr. Tom Dotson Sodium [Moles/Vol] 138 mmol/L Normal 136-145 [facility] Comment on above: Performed By: #### I NFLUAB #### [facility] [address] [place] [address] Dr. Tom Dotson Urea nitrogen [Mass/Vol] 14.0 mg/dL Normal 7.0-18.0 [facility] [place] Comment on above: Performed By: #### I NFLUAB #### [facility] [address] [place] [address] Dr. Tom Dotson Urea nitrogen/Creatinine [Mass ratio] 14.7 mg/mg Normal [facility] [place] Comment on above: Performed By: #### I NFLUAB #### [facility] [address] [place] [address] Dr. Tom Dotson TSHon 03-06-2022 TSH 1.010 uIU/mL Normal 0.358-3.740 [facility] Comment on above: Performed By: #### I NFLUAB #### [facility] [address] [place] [address] Dr. Tom Dotson Hepatic Panelon 09-02-2019 Albumin [Mass/Vol] 3.2 g/dL Normal 3.2-5.5 [facility] Comment on above: Performed By: #### H EPATIC, LIPID, TSH3 wRFLX, [id number] #### [facility] [address] [place] [address] Albumin/Globulin [Mass ratio] 1.1 {ratio} Normal [facility] Comment on above: Performed By: #### H EPATIC, LIPID, TSH3 wRFLX, [id number] #### [facility] [address] [place] [address] ALP [Catalytic activity/Vol] 38 U/L Normal 32-92 [facility] Comment on above: Performed By: #### H EPATIC, LIPID, TSH3 wRFLX, [id number] #### [address] ALT [Catalytic activity/Vol] 14 U/L Normal 10-60 [facility] Comment on above: Performed By: #### H EPATIC, LIPID, TSH3 wRFLX, [id number] #### [facility] [address] [place] [address] AST [Catalytic activity/Vol] 13 U/L Normal 10-42 [facility] Comment on above: Performed By: #### H EPATIC, LIPID, TSH3 wRFLX, [id number] #### [address] Bilirubin [Mass/Vol] 0.9 mg/dL Normal 0.3-1.2 [facility] Comment on above: Performed By: #### H EPATIC, LIPID, TSH3 wRFLX, [id number] #### [facility] [address] [place] [address] [place] Bilirubin,Indirect 0.8 mg/dL Normal [facility] Comment on above: Performed By: #### H EPATIC, LIPID, TSH3 wRFLX, [id number] #### [place] [address] [place] Bilirubin.direct [Mass/Vol] 0.1 mg/dL Normal 0.0-0.4 [facility] Comment on above: Performed By: #### H EPATIC, LIPID, TSH3 wRFLX, [id number] #### [address] [place] [address] [place] Globulin (S) [Mass/Vol] 2.9 g/dL Normal [facility] Comment on above: Performed By: #### H EPATIC, LIPID, TSH3 wRFLX, [id number] #### [facility] [address] [id number] [facility] Protein [Mass/Vol] 6.1 g/dL Normal 6.1-7.9 [facility] Comment on above: Performed By: #### H EPATIC, LIPID, TSH3 wRFLX, [id number] #### [address] Lipid Panelon 09-02-2019 Cholesterol [Mass/Vol] 158 mg/dL Normal 140-200 [facility] Comment on above: Result Comment: Chol less than 200 mg/dl low risk Chol 201-239 mg/dl borderline risk Chol 240 mg/dl and greater high risk Performed By: #### H EPATIC, LIPID, TSH3 wRFLX, [id number] #### [address] Cholesterol in HDL [Mass/Vol] 61 mg/dL Normal 29-71 [facility] Comment on above: Result Comment: HDL CHOL ATP-III CLASSIFICATION Cardiovascular Risk HDL > or equal to 60 mg/dL LOW HDL < 40 mg/dL HIGH Performed By: #### H EPATIC, LIPID, TSH3 wRFLX, [id number] #### [facility] [address] [place] [address] Cholesterol.total/Ch olesterol in HDL [Mass ratio] 2.6 {ratio} Normal <5.0 [facility] Comment on above: Performed By: #### H EPATIC, LIPID, TSH3 wRFLX, [id number] #### [facility] [address] [place] [address] LDL Cholesterol,Calculat ed 84 mg/dL Normal 0-100 [facility] Comment on above: Result Comment: LDL ATP III CLASSIFICATION LDL less than 100 mg/dL Optimal LDL 100-129 mg/dL Near or above optimal LDL 130-159 mg/dL Borderline high LDL 160-189 mg/dL High LDL greater than 189 mg/dL Very high Performed By: #### H EPATIC, LIPID, TSH3 wRFLX, [id number] #### [facility] [address] Triglyceride w/Reflex 63 mg/dL Normal 35-149 [facility] Comment on above: Result Comment: TRIG ATP III CLASSIFICATION TRIG less than 150 mg/dL Normal TRIG 150-199 mg/dL Borderline high TRIG 200-500 mg/dL High TRIG greater than 500 mg/dL Very high Standard traceable to the Center for Disease Conrtrol and Prevention (CDC) test method. Performed By: #### H EPATIC, LIPID, TSH3 wRFLX, [id number] #### [facility] [address] VLDL CHOLESTEROL 12 mg/dL Normal [facility] Comment on above: Performed By: #### H EPATIC, LIPID, TSH3 wRFLX, [id number] #### [facility] [address] Thyroid Stim Hormone w/Rflxo n 09-02-2019 Thyroid Stim Hormone w/Rflx 1.92 u[iU]/mL Normal 0.45-5.33 [facility] Comment on above: Performed By: #### H EPATIC, LIPID, TSH3 wRFLX, [id number] #### [facility] [address] [place] [address] Vitamin D 25 Hydroxy Totalon 09-02-2019 Vitamin D 25 Hydroxy Total 11.9 ng/mL Low 30-100 [facility] Comment on above: Result Comment: DAE MIN D STATUS 25(OH)VITAMIN D RANGE (ng/mL) Deficient <20 Insufficient 20 to <30 Sufficient 30 to 100 Reference: Darrion MF,Zane NC, Hanna AVELAR, et al. Evaluation,treatment, and prevention of vitamin D deficiency; an Endocrine Society clinical practice guideline. JCEM. 2010; 96(7):1911-30. PERFORMED BY: [place] [address] PATHOLOGIST SORTING MACHINE OPERATOR MIGUELINA FLOOD M.D. Performed By: #### H EPATIC, LIPID, TSH3 wRFLX, [id number] #### [facility] [address] Vital Signs Date Time Vital Sign Value Performing Clinician Madan mayer 10-30-2023 10:00-0500 Body height 185.4 cm Azul Maria Luzz [employer] Work Phone: [facility] 10-30-2023 10:00-0500 Body mass index (BMI) [Ratio] 26.84 kg/m2 Azul Aichholz [employer] Work Phone: [facility] 10-30-2023 10:00-0500 Body temperature 97.11 [degF] Azul Aichholz [employer] Work Phone: [facility] 10-30-2023 10:00-0500 Body weight 92.26 kg Azul Aichholz [employer] Work Phone: [facility] 10-30-2023 10:00-0500 Diastolic blood pressure 78 mm[Hg] Azul Aichholz [employer] Work Phone: [facility] 10-30-2023 10:00-0500 Heart rate 83 /min Azul Aichholz [employer] Work Phone: [facility] 10-30-2023 10:00-0500 Respiratory rate 16 /min Azul Aichholz [employer] Work Phone: [facility] 10-30-2023 10:00-0500 SaO2% (BldA) [Mass fraction] 94 % Azul Leidyhholz [employer] Work Phone: [facility] 10-30-2023 10:00-0500 Systolic blood pressure 138 mm[Hg] Azul Aichholz [employer] Work Phone: [facility] Encounters Encounter Date Encounter Type Care Provider Facility Start: 11-13-2023 End: 11-13-2023 ambulatory AZUL AICHHOLZ Not Available Start: 10-30-2023 End: 10-30-2023 ambulatory AZUL AICHHOLZ Not Available Start: 10-30-2023 End: 10-30-2023 Office outpatient visit 15 minutes Azul Quezada NP Work Phone: [facility] Comment on above: Influenza (Primary D x); Marijuana abuse; Smoker; BMI 26.0-26.9,adult; Centrilobular emphysema ([facility]/HCC) Start: 10-21-2023 Clinisync Result Encounter Generic External Data Provider [facility] External Department Unsolicited Start: 10-21-2023 Clinisync Result Encounter Generic External Data Provider [facility] External Department Unsolicited Start: 09-25-2022 End: 09-25-2022 ambulatory [employer] 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 Facility:[facility] Start: 04-16-2022 End: 04-17-2022 ambulatory [facility] Facility:[facility] Start: 04-10-2022 End: 04-11-2022 ambulatory [facility] Facility:[facility] Start: 03-06-2022 End: 03-07-2022 ambulatory [employer] 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 Facility:[facility] Procedures Date Procedure Procedure Detail Performing Clinician Start: 10-21-2023 BLOOD CULTURE 2 Generic External Data Provider Start: 10-21-2023 BLOOD CULTURE 1 Generic External Data Provider Start: 03-06-2022 PSA screening [facility] Comment on above: Performed By: #### P [facility] #### [facility] [address] [place] [address] Dr. Tom Dotson Plan of Treatment Date Care Activity Detail Author Start: 08-04-2024 Screening for malign ant neoplasm of colon [facility] Start: 03-21-2024 Influenza vaccination Influenza Vacc ine (#1) [facility] Comment on above: Postponed from 05/23 (Patient Refused) Start: 11-13-2023 End: 11-13-2023 Patient encounter procedure 11/13/2023 9:40 AM EST Office Visit [facility] [address] [place] [id number] Azul Quezada NP [address] [place] [id number] [facility] Start: 10-30-2023 End: 10-30-2023 Patient encounter procedure 10/30/2023 10:00 AM EST Office Visit [facility] [address] [place] [id number] Azul Quezada, ORACIO [address] [place] [address] [facility] Start: 2023 Influenza vaccination Influenza Vacc ine (#1) [facility] Start: 1960 Medicare Annual Well ness (AWV) Medicare Annual Wellness (AWV) [facility] Start: 1960 Screening for malign ant neoplasm of colon [facility] BLOOD CULTURE 1 BLOOD CULTURE 1 Lab Routine 10/21/2023 12:27 PM EST [facility] BLOOD CULTURE 2 BLOOD CULTURE 2 Lab Routine 10/21/2023 12:30 PM EST [facility] Immunizations Immunization Date Immunization Notes Care Provider [facility] 2020 influenza, live, intranasal, quadrivalent Azul Quezada [employer] Work Phone: [facility] 2020 influenza virus vacc ine, unspecified formulation Generic Provider [facility] 08-04-2019 influenza, high dose seasonal, preservative-free Auzl Quezada [employer] Work Phone: [facility] Payers Date Payer Category Payer Medicare [id number] 1993 Medicare [id number] 1960 Unknown [id number] 2.16.84 [id number] 1960 Unknown [id number] 2.16.84 [id number] 1960 Unknown [id number] 2.16.84 [id number] 1960 Unknown [id number] 2.16.84 [id number] 1960 Unknown [id number] 2.16.84 [id number] 1960 Unknown [id number] 2.16.84 [id number] 1959 Medicaid [id number] 1959 Unknown [id number] Social History Date Type Detail Facility Tobacco smoking stat [facility] Tobacco smoking consumption unknown [facility] Start: 1960 Sex Assigned At Not on file [facility] Start: 10-30-2023 Gender identity Not on file [facility] Start: 10-30-2023 Tobacco smoking stat [facility] Ex-smoker [facility] End: 03-22-2019 History of [...] complaint on file. HPI: Recent hospitalization at [facility] for 3 days d/t influenza. Does [...] artery stenosis Calcified lymph nodes Centrilobular emphysema ([facility]) COVID-19 07/2019 CVA (cerebral vascular accident) ([facility]) Degenerative cervical disc Depression with anxiety Insomnia Marijuana abuse 10/30/2023 Multiple pulmonary nodules Neck mass 2013 Osteoarthritis Papule of skin Pigmented skin lesion of uncertain nature Rheumatic fever Stroke ([facility]) 07/2020 Testicle lump Tourette's ([facility]) Vertebral artery occlusion Vocal cord polyp Past Surgical History: Procedure Laterality Date ADENOIDECTOMY CAROTID STENT Right 09/2019 stent, RT carotid CT GUIDED TRANSVAGINAL TRANSRECTAL FLUID DRAIN 06/09/2020 CT GUIDED TRANSVAGINAL TRANSRECTAL FLUID DRAIN 06/09/2020 OTHER SURGICAL HISTORY Removal of Polyp Vocal area and Vocal Cord cyst ND EXCISION THYROGLOSSAL DUCT CYST/SINUS Procedure:DL, e/o thyroglossal [...] AUTHOR 09/04/2019 [facility] DATE CREATED AUTHOR AUTHOR'S ORGANIZ ATION 09/30/2022 [facility] DATE CREATED AUTHOR AUTHOR'S ORGANIZ ATION 11/21/2023 [facility] Care Teams (unrecognized sec tion and content) Maintenance [employer] Technician Relationship Specialty Start Date End Date Kiko Zurita MD PCP - General Family Medicine 04/07/23 Azul Quezada NP [address] [place] [address] Referring Physician Nurse Practitioner 04/07/23 [employer] Techn[employer] Relationship Specialty Start Date End Date Kiko Zurita MD [address] [place] [address] PCP - General Family Medicine 10/24/23 Azul Quezada NP [address] [place] [address] Referring Physician Nurse Practitioner 04/07/23 FOR [...] BE BASED ON THE PRIMARY CLINICAL RECORDS. [facility]. provides no warranty or guarantee of the accuracy or completeness of information in this document.
[2023-12-07] MEDS: ALBUTEROL SULFATE 2.5 MG/3 ML VIAL NEB IH (13:39)
[2023-12-07 13:54] LABS: Hematocrit 40.2 % (42.0-54.0); Hemoglobin 12.8 g/dL (14.0-18.0); Mean Corpuscular HGB Conc 31.8 g/dL (29.9-35.2); Mean Corpuscular Hemoglobin 29.3 pg (25.9-34.0); Mean Platelet Volume 8.9 fL (9.5-13.5); Platelet Count 436 10^3/uL (150-450); Red Blood Count 4.37 10^6/uL (4.70-6.10); Red Cell Distribution Width 12.5 % (11.0-15.0)
[2023-12-07 13:57] LABS: Influenza Virus A Antigen Negative; Influenza Virus B Antigen Negative
[2023-12-07 13:58] LABS: Internal Control Within Normal Limits
[2023-12-07 14:00] LABS: SARS-CoV-2 Ag NEGATIVE (NEGATIVE)
[2023-12-07 14:19] LABS: Lymphocytes Absolute Manual 3.06 10^3/uL (1.20-3.80); Monocytes Absolute Manual 1.98 10^3/uL (0.30-0.80); Segmented Neut Absolute Manual 12.96 10^3/uL (1.4-6.5)
[2023-12-07 14:23] LABS: Anion Gap 9.9; BUN Creatinine Ratio 14.1; Calcium 8.3 mg/dL (8.5-10.1); Carbon Dioxide 29.3 mmol/L (21.0-32.0); Chloride 101 mmol/L (98-107); Estimated GFR (African America >60 (>=60); Estimated GFR (Non-African Ame >60 (>=60); Glucose 167 mg/dL (74-106); Potassium 4.2 mmol/L (3.5-5.1); Sodium 136 mmol/L (136-145); Troponin I High Sensitivity <4.0 pg/mL (4.0-76.1)
--- OUTSIDE RECORDS SUMMARY | 2023-12-07 16:32 | XMS_ITS | CCD ---
Author Name Unknown Address [address] [place] [address] Organization [facility] Care Team Providers Care Branding Specialist Name Role Phone SAMSA, JAMESON Admitting Unavailable SAMSA, JAMESON Attending Unavailable AICHHOLZ, INVESTMENT ADVISOR AZUL Referring Unavailable AICHHOLZ, INVESTMENT ADVISOR AZUL Primary Care Unavailable SAMSA, JAMESON Consulting Unavailable AICHHOLZ, INVESTMENT ADVISOR AZUL Admitting Unavailable AICHHOLZ, INVESTMENT ADVISOR AZUL Attending Unavailable AICHHOLZ, INVESTMENT ADVISOR AZUL Primary Care Unavailable AICHHOLZ, INVESTMENT ADVISOR AZUL Consulting Unavailable SAMSA, JAMESON Admitting Unavailable SAMSA, JAMESON Attending Unavailable AICHHOLZ, INVESTMENT ADVISOR AZUL Primary Care Unavailable ZIEBALMA, DR YARIEL Figueroa Consulting Unavailable SAMSA, JAMESON Consulting Unavailable AICHHOLZ, INVESTMENT ADVISOR AZUL Primary Care Unavailable DAREN, DR MAURO Admitting Unavailable DAREN, DR MAURO Attending Unavailable WHITNEY, DR YARIEL Figueroa Consulting Unavailable DAREN, DR MAURO Consulting Unavailable Kiko Zurita MD Primary Care Provider [phone] Damien KNOWLEDGE MANAGEMENT ADVISOR, Azul Unavailable Kiko Zurita MD Primary Care Provider [phone] AICHHOLZ, AZUL Attending Unavailable AICHHOLZ, AZUL Attending [...] B (Bld) [Mass/Vol] 42.0 pg/mL Normal <=900.0 [facility] Comment on above: Performed By: #### I NFLUAB #### [facility] [address] [place] [address] Dr. Tom Dotson CBC AUTO DIFFon 09-25-2022 BASO # 0.1 103/ul Normal 0.0-0.1 [facility] Comment on above: Performed By: #### C BC #### [facility] [address] [place] [address] Dr. Tom Dotson Basophils/100 WBC (Bld) 0.8 % Normal 0.2-2.0 [facility] Comment on above: Performed By: #### C BC #### [facility] [address] [place] [address] Dr. Tom Dotson EO # 0.0 103/ul Normal 0.0-0.7 [facility] Comment on above: Performed By: #### C BC #### [facility] [address] [place] [address] Dr. Tom Dotson Eosinophils/100 WBC (Bld) 0.0 % Critically low 0.9-7.0 [facility] Comment on above: Performed By: #### C BC #### [facility] [address] [place] [address] Dr. Tom Dotson Erythrocyte distribution width (RBC) [Ratio] 12.4 % Normal 11.0-15.0 [facility] Comment on above: Performed By: #### C BC #### [facility] [address] [place] [address] Dr. Tom Dotson Hematocrit (Bld) [Volume fraction] 43.6 % Normal 42.0-54.0 [facility] Comment on above: Performed By: #### C BC #### [facility] [address] [place] [address] Dr. Tom Dotson Hemoglobin (Bld) [Mass/Vol] 14.3 g/dL Normal 14.0-18.0 [facility] Comment on above: Performed By: #### C BC #### [facility] [address] [place] [address] Dr. Tom Dotson IG # 0.02 10e3/ul Normal 0.00-0.03 [facility] Comment on above: Performed By: #### C BC #### [facility] [address] [place] [address] Dr. Tom Dotson IG % 0.3 % Normal 0.0-0.5 [facility] Comment on above: Performed By: #### C BC #### [facility] [address] [place] [address] Dr. Tom Dotson LYMPH # 1.4 103/ul Normal 1.2-3.8 [facility] Comment on above: Performed By: #### C BC #### [facility] [address] [place] [address] Dr. Tom Dotson Lymphocytes/100 WBC (Bld) 17.3 % Critically low 20.5-60.0 [facility] Comment on above: Performed By: #### C BC #### [facility] [address] [place] [address] Dr. Tom Dotson MANUAL DIFF REQ NO Normal [facility] Comment on above: Performed By: #### C BC #### [facility] [address] [place] [address] Dr. Tom Dotson MCH (RBC) [Entitic mass] 29.8 pg Normal 25.9-34.0 [facility] Comment on above: Performed By: #### C BC #### [facility] [address] [place] [address] Dr. Tom Dotson MCHC (RBC) [Mass/Vol] 32.8 g/dL Normal 29.9-35.2 [facility] Comment on above: Performed By: #### C BC #### [facility] [address] [place] [address] Dr. Tom Dotson MCV (RBC) [Entitic vol] 90.8 fL Normal 80.0-94.0 [facility] Comment on above: Performed By: #### C BC #### [facility] [address] [place] [address] Dr. Tom Dotson MONO # 0.7 103/ul Normal 0.3-0.8 [facility] Comment on above: Performed By: #### C BC #### [facility] [address] [place] [address] Dr. Tom Dotson Monocytes/100 WBC (Bld) 9.4 % Normal 1.7-12.0 [facility] Comment on above: Performed By: #### C BC #### [facility] [address] [place] [address] Dr. Tom Dotson NEUT # 5.7 103/ul Normal 1.4-6.5 [facility] Comment on above: Performed By: #### C BC #### [facility] [address] [place] [address] Dr. Tom Dotson Neutrophils/100 WBC (Bld) 72.2 % Normal 43.0-75.0 [facility] Comment on above: Performed By: #### C BC #### [facility] [address] [place] [address] Dr. Tom Dotson Platelet mean volume (Bld) [Entitic vol] 9.6 fL Normal 9.5-13.5 [facility] Comment on above: Performed By: #### C BC #### [facility] [address] [place] [address] Dr. Tom Dotson PLT 331 103/ul Normal 150-450 [facility] Comment on above: Performed By: #### C BC #### [facility] [address] [place] [address] Dr. Tom Dotson RBC 4.80 106/ul Normal 4.70-6.10 [facility] Comment on above: Performed By: #### C BC #### [facility] [address] [place] [address] Dr. Tom Dotson WBC 7.8 103/ul Normal 4.0-11.0 [facility] Comment on above: Performed By: #### C BC #### [facility] [address] [place] [address] Dr. Tom Dotson CULTURE BLOODon 09-25-2022 Microscopic examination of blood, culture Culture Observations: NO GROWTH AT 5 DAYS. Normal [facility] Comment on above: Performed By: #### I NFLUAB #### [facility] [address] [place] [address] Dr. Tom Dotson Microscopic examination of blood, culture Culture Observations: NO GROWTH AT 5 DAYS. Normal [facility] Comment on above: Performed By: #### I NFLUAB #### [facility] [address] [place] [address] Dr. Tom Dotson Covid-19 PCR (CVDTB)on SARS-CoV-2 (COVID-19) RNA OLGA+probe Ql (Unsp spec) Not detected Normal NOT DETECTED [facility] Comment on above: Result Comment: When diagnostic [...] for this test is supported by the [place] of Health and Human Service's declaration that [...] used). Performed By: #### C VDTBH #### [facility] [address] [place] [address] Dr. Tom Dotson INFLUENZA A AND B AGon 09-25 INFLUANEGH SEE BELOW Normal [facility] Comment on above: Result Comment: Nega tive for Flu A protein angiten. Infection due to Flu A cannot be ruled out. Flu A angiten in the sample may be below the detection limit of the test. Performed By: #### I NFLUAB #### [facility] [address] [place] [address] Dr. Tom Dotson INFLUBNEG SEE BELOW Normal [facility] Comment on above: Result Comment: Nega tive for Flu B protein antigen. Infection due to Flu B cannot be ruled out. Flu B antigen in the sample may be below the detection limit of the test. Performed By: #### I NFLUAB #### [facility] [address] [place] [address] Dr. Tom Dotson INFLUENZA A AG Negative Normal NEGATIVE SEE COMMENT [facility] Comment on above: Performed By: #### I NFLUAB #### [facility] [address] [address] [address] Tom Dotson INFLUENZA B AG Negative Normal NEGATIVE SEE COMMENT [facility] Comment on above: Performed By: #### I NFLUAB #### [facility] [address] [address] [address] Tom Dotson LACTATE/LACTIC ACIDon 2022 Lactate [Moles/Vol] 0.7 mmol/L Normal 0.4-1.9 [facility] Comment on above: Performed By: #### L ACT #### [facility] [address] [place] [address] Dr. Tom Dotson PROF CHEM 8 (BAS METB)on Anion gap [Moles/Vol] 9.3 mmol/L Normal [facility] Comment on above: Performed By: #### H STROPN, BMP, BNP #### [facility] [address] [place] [address] Dr. Tom Dotson Calcium [Mass/Vol] 8.8 mg/dL Normal 8.5-10.1 [facility] Comment on above: Performed By: #### H STROPN, BMP, BNP #### [facility] [address] [address] [address] Tom Dotson Chloride [Moles/Vol] 103 mmol/L Normal 98-107 [facility] Comment on above: Performed By: #### H STROPN, BMP, BNP #### [facility] [address] [address] [address] Tom Dotson CO2 [Moles/Vol] 31.1 mmol/L Normal 21.0-32.0 [facility] Comment on above: Performed By: #### H STROPN, BMP, BNP #### [facility] [address] [place] [address] Dr. Tom Dotson Creatinine [Mass/Vol] 0.77 mg/dL Normal 0.70-1.30 [facility] Comment on above: Performed By: #### H STROPN, BMP, BNP #### [facility] [address] [address] [address] Tom Dotson EGFR-AF BOLIVIAN >60 Normal >=60 [facility] Comment on above: Performed By: #### H STROPN, BMP, BNP #### [facility] [address] [address] [address] Tom Dotson EGFR-NON AF BOLIVIAN >60 Normal >=60 [facility] Comment on above: Performed By: #### H STROPN, BMP, BNP #### [facility] [address] [address] [address] Tom Dotson Glucose [Mass/Vol] 98 mg/dL Normal 74-106 [facility] Comment on above: Performed By: #### H STROPN, BMP, BNP #### [facility] [address] [address] [address] Tom Dotson Potassium [Moles/Vol] 4.4 mmol/L Normal 3.5-5.1 [facility] Comment on above: Performed By: #### H STROPN, BMP, BNP #### [facility] [address] [address] [address] Tom Dotson Sodium [Moles/Vol] 139 mmol/L Normal 136-145 [facility] Comment on above: Performed By: #### H STROPN, BMP, BNP #### [facility] [address] [address] [address] Tom Dotson Urea nitrogen [Mass/Vol] 13.0 mg/dL Normal 7.0-18.0 [facility] Comment on above: Performed By: #### H STROPN, BMP, BNP #### [facility] [address] [address] [address] Tom Dotson Urea nitrogen/Creatinine [Mass ratio] 16.9 mg/mg Normal [facility] Comment on above: Performed By: #### H STROPN, BMP, BNP #### [facility] [address] [place] [address] Dr. Tom Dotson TROPONIN, HIGH SENSITIVITYon 09-25-2022 HSTROP 7.4 pg/mL Normal 4.0-76.1 [facility] Comment on above: Result Comment: CUT- OFF POINTS HAVE BEEN ESTABLISHED BASED ON THE FOURTH UNIVERSAL DEFINITIONS OF MYOCARDIAL INFARCTION. THE UPPER REFERENCE LIMIT (URL) OF TROPONIN, DEFINED THE 99TH PERCENTILE OF cTnI DISTRIBUTION IN A REFERENCE POPULATION, HAS BEEN CONFIRMED THE DECISION THRESHOLD FOR CT DIAGNOSIS. Performed By: #### I NFLUAB #### [facility] [address] [place] [address] Dr. Tom Dotsno XR CHEST 1 Von 09-25-2022 XR CHEST [...] YARIEL OLSON Date: 2022-09-25 10:55 Normal [facility] ASPERGILLUS AB, QUANTITATIVE DIDon 04-20-2022 Aspergillus flavus Negative Normal Neg:<1:1 [facility] Comment on above: Performed By: #### A SPDID #### [facility] [address] [place] [address] Dr. Tom Dotson Aspergillus fumigatus Negative Normal Neg:<1:1 [facility] Comment on above: Performed By: #### A SPDID #### [facility] [address] [place] [address] Dr. Tom Dotson Aspergillus niger Negative Normal Neg:<1:1 [facility] Comment on above: Performed By: #### A SPDID #### [facility] [address] [place] [address] Dr. Tom Dotson ANTI NEUTROPHIL CYTOPLASMIC AB (ANCA) PRon 04-19-2022 Anti-MPO Antibodies <0.2 Normal 0.0-0.9 [facility] Comment on above: Result Comment: Perf ormed at: BN Performed By: #### C BC #### [facility] [address] [place] [address] Dr. Tom Dotson Anti-PR3 Antibodies <0.2 Normal 0.0-0.9 [facility] Comment on above: Result Comment: Perf ormed at: BN Performed By: #### C BC #### [facility] [address] [place] [address] Dr. Tom Dotson Atypical pANCA <1:20 Normal Neg:<1:20 [facility] Comment on above: Result Comment: The atypical pANCA pattern has been observed in a significant percentage of patients with ulcerative colitis, primary sclerosing cholangitis and autoimmune hepatitis. Performed at: CB Performed By: #### C BC #### [facility] [address] [place] [address] Dr. Tom Dotson Cytoplasmic (C-ANCA) <1:20 Normal Neg:<1:20 [facility] Comment on above: Result Comment: Perf ormed at: CB Performed By: #### C BC #### [facility] [address] [place] [address] Dr. Tom Dotson Perinuclear (P-ANCA) <1:20 Normal Neg:<1:20 [facility] Comment on above: Result Comment: The presence of positive fluorescence exhibiting P-ANCA or C-ANCA patterns alone is not specific for the diagnosis of Nevin's Granulomatosis (WG) or microscopic polyangiitis. Decisions about treatment should not be based solely on ANCA IFA results. The International ANCA [employer] Consensus recommends follow up testing of positive sera with both AK-3 and MPO-ANCA enzyme immunoassays. As many as 5% serum samples are positive only by EIA. Ref. AM J Clin Pathol 1999;111:507-513. Performed at: CB Performed By: #### C BC #### [facility] [address] [place] [address] Dr. Tom Dotson IMMUNOGLOBULIN E, TOTALon Immunoglobulin E, Total 68 IU/mL Normal 6-495 [facility] Comment on above: Performed By: #### I RIAOT #### [facility] [address] [place] [address] Dr. Tom Dotson ANGIOTENSION-CONVERTING ENZY ME (ELINOR)on 04-17-2022 ELINOR 28 U/L Normal 14-82 [facility] Comment on above: Performed By: #### A NGIOC #### [facility] [address] [place] [address] Dr. Tom Dotson CBC AUTO DIFFon 04-16-2022 BASO # 0.1 103/ul Normal 0.0-0.1 [facility] Comment on above: Performed By: #### I NFLUAB #### [facility] [address] [place] [address] Dr. Tom Dotson Basophils/100 WBC (Bld) 1.0 % Normal 0.2-2.0 [facility] Comment on above: Performed By: #### I NFLUAB #### [facility] [address] [place] [address] Dr. Tom Dotson EO # 0.0 103/ul Normal 0.0-0.7 [facility] Comment on above: Performed By: #### I NFLUAB #### [facility] [address] [place] [address] Dr. Tom Dotson Eosinophils/100 WBC (Bld) 0.1 % Critically low 0.9-7.0 [facility] Comment on above: Performed By: #### I NFLUAB #### [facility] [address] [place] [address] Dr. Tom Dotson Erythrocyte distribution width (RBC) [Ratio] 12.9 % Normal 11.0-15.0 [facility] Comment on above: Performed By: #### I NFLUAB #### [facility] [address] [place] [address] Dr. Tom Dotson Hematocrit (Bld) [Volume fraction] 44.8 % Normal 42.0-54.0 [facility] Comment on above: Performed By: #### I NFLUAB #### [facility] [address] [place] [address] Dr. Tom Dotson Hemoglobin (Bld) [Mass/Vol] 15.0 g/dL Normal 14.0-18.0 [facility] Comment on above: Performed By: #### I NFLUAB #### [facility] [address] [place] [address] Dr. Tom Dotson IG # 0.02 10e3/ul Normal 0.00-0.03 [facility] Comment on above: Performed By: #### I NFLUAB #### [facility] [address] [address] [address] Tom Dotson IG % 0.2 % Normal 0.0-0.5 [facility] Comment on above: Performed By: #### I NFLUAB #### [facility] [address] [address] [address] Tom Dotson LYMPH # 1.4 103/ul Normal 1.2-3.8 [facility] Comment on above: Performed By: #### I NFLUAB #### [facility] [address] [address] [address] Tom Dotson Lymphocytes/100 WBC (Bld) 17.6 % Critically low 20.5-60.0 [facility] Comment on above: Performed By: #### I NFLUAB #### [facility] [address] [place] [address] Dr. Tom Dotson MANUAL DIFF REQ NO Normal [facility] Comment on above: Performed By: #### I NFLUAB #### [facility] [address] [address] [address] Tom Dotson MCH (RBC) [Entitic mass] 30.9 pg Normal 25.9-34.0 [facility] Comment on above: Performed By: #### I NFLUAB #### [facility] [address] [place] [address] Dr. Tom Dotson MCHC (RBC) [Mass/Vol] 33.5 g/dL Normal 29.9-35.2 [facility] Comment on above: Performed By: #### I NFLUAB #### [facility] [address] [address] [address] Tom Dotson MCV (RBC) [Entitic vol] 92.2 fL Normal 80.0-94.0 [facility] Comment on above: Performed By: #### I NFLUAB #### [facility] [address] [place] [address] Dr. Tom Dotson MONO # 0.8 103/ul Normal 0.3-0.8 [facility] Comment on above: Performed By: #### I NFLUAB #### [facility] [address] [address] [address] Tom Dotson Monocytes/100 WBC (Bld) 9.6 % Normal 1.7-12.0 [facility] Comment on above: Performed By: #### I NFLUAB #### [facility] [address] [address] [address] Tom Dotson NEUT # 5.9 103/ul Normal 1.4-6.5 [facility] Comment on above: Performed By: #### I NFLUAB #### [facility] [address] [place] [address] Dr. Tom Dotson Neutrophils/100 WBC (Bld) 71.5 % Normal 43.0-75.0 [facility] Comment on above: Performed By: #### I NFLUAB #### [facility] [address] [place] [address] Dr. Tom Dotson Platelet mean volume (Bld) [Entitic vol] 9.9 fL Normal 9.5-13.5 [facility] Comment on above: Performed By: #### I NFLUAB #### [facility] [address] [place] [address] Dr. Tom Dotson PLT 325 103/ul Normal 150-450 [facility] Comment on above: Performed By: #### I NFLUAB #### [facility] [address] [place] [address] Dr. Tom Dotson RBC 4.86 106/ul Normal 4.70-6.10 [facility] Comment on above: Performed By: #### I NFLUAB #### [facility] [address] [place] [address] Dr. Tom Dotson WBC 8.2 103/ul Normal 4.0-11.0 [facility] Comment on above: Performed By: #### I NFLUAB #### [facility] [address] [place] [address] LUNG CANCER SCREENINGon [...] YARIEL OLSON Date: 2022-04-10 22:57 Normal [facility] CBC AUTO DIFFon 03-06-2022 BASO # 0.1 103/ul Normal 0.0-0.1 [facility] Comment on above: Performed By: #### C BC #### [facility] [address] [place] [address] Dr. Tom Dotson Basophils/100 WBC (Bld) 1.0 % Normal 0.2-2.0 [facility] Comment on above: Performed By: #### C BC #### [facility] [address] [address] [address] Tom Dotson EO # 2.5 103/ul Critically high 0.0-0.7 [facility] Comment on above: Performed By: #### C BC #### [facility] [address] [address] [address] Tom Dotson Eosinophils/100 WBC (Bld) 29.1 % Critically high 0.9-7.0 [facility] Comment on above: Performed By: #### C BC #### [facility] [address] [place] [address] Dr. Tom Dotson Erythrocyte distribution width (RBC) [Ratio] 12.8 % Normal 11.0-15.0 [facility] Comment on above: Performed By: #### C BC #### [facility] [address] [place] [address] Dr. Tom Dotson Hematocrit (Bld) [Volume fraction] 46.6 % Normal 42.0-54.0 [facility] Comment on above: Performed By: #### C BC #### [facility] [address] [place] [address] Dr. Tom Dotson Hemoglobin (Bld) [Mass/Vol] 14.4 g/dL Normal 14.0-18.0 [facility] Comment on above: Performed By: #### C BC #### [facility] [address] [place] [address] Dr. Tom Dotson IG # 0.04 10e3/ul Critically high 0.00-0.03 [facility] Comment on above: Performed By: #### C BC #### [facility] [address] [place] [address] Dr. Tom Dotson IG % 0.5 % Normal 0.0-0.5 [facility] Comment on above: Performed By: #### C BC #### [facility] [address] [place] [address] Dr. Tom Dotson LYMPH # 1.3 103/ul Normal 1.2-3.8 [facility] Comment on above: Performed By: #### C BC #### [facility] [address] [place] [address] Dr. Tom Dotson Lymphocytes/100 WBC (Bld) 15.1 % Critically low 20.5-60.0 [facility] Comment on above: Performed By: #### C BC #### [facility] [address] [place] [address] Dr. Tom Dotson MANUAL DIFF REQ NO Normal [facility] Comment on above: Performed By: #### C BC #### [facility] [address] [place] [address] Dr. Tom Dotson MCH (RBC) [Entitic mass] 29.5 pg Normal 25.9-34.0 [facility] Comment on above: Performed By: #### C BC #### [facility] [address] [place] [address] Dr. Tom Dotson MCHC (RBC) [Mass/Vol] 30.9 g/dL Normal 29.9-35.2 [facility] Comment on above: Performed By: #### C BC #### [facility] [address] [place] [address] Dr. Tom Dotson MCV (RBC) [Entitic vol] 95.5 fL Critically high 80.0-94.0 [facility] Comment on above: Performed By: #### C BC #### [facility] [address] [place] [address] Dr. Tom Dotson MONO # 0.8 103/ul Normal 0.3-0.8 [facility] Comment on above: Performed By: #### C BC #### [facility] [address] [place] [address] Dr. Tom Dotson Monocytes/100 WBC (Bld) 9.5 % Normal 1.7-12.0 [facility] Comment on above: Performed By: #### C BC #### [facility] [address] [place] [address] Dr. Tom Dotson NEUT # 3.9 103/ul Normal 1.4-6.5 [facility] Comment on above: Performed By: #### C BC #### [facility] [address] [place] [address] Dr. Tom Dotson Neutrophils/100 WBC (Bld) 44.8 % Normal 43.0-75.0 [facility] Comment on above: Performed By: #### C BC #### [facility] [address] [place] [address] Dr. Tom Dotson Platelet mean volume (Bld) [Entitic vol] 10.2 fL Normal 9.5-13.5 [facility] Comment on above: Performed By: #### C BC #### [facility] [address] [place] [address] Dr. Tom Dotson PLT 328 103/ul Normal 150-450 [facility] Comment on above: Performed By: #### C BC #### [facility] [address] [place] [address] Dr. Tom Dotson RBC 4.88 106/ul Normal 4.70-6.10 [facility] Comment on above: Performed By: #### C BC #### [facility] [address] [place] [address] Dr. Tom Dotson WBC 8.7 103/ul Normal 4.0-11.0 [facility] Comment on above: Performed By: #### C BC #### [facility] [address] [place] [address] Dr. Tom Dotson DIFFERENTIAL MANUALon 2021 ATYPICAL LYMPH # 0.09 103/ul Normal [facility] Comment on above: Performed By: #### D IFF #### [facility] [address] [place] [address] Dr. Tom Dotson ATYPICAL LYMPH % 1 % Normal [facility] Comment on above: Performed By: #### D IFF #### [facility] [address] [place] [address] Dr. Tom Dotson BAND # 0.0 103/ul Normal 0.0-0.3 [facility] Comment on above: Performed By: #### D IFF #### [facility] [address] [place] [address] Dr. Tom Dotson BAND % 0 % Normal 0-5 [facility] Comment on above: Performed By: #### D IFF #### [facility] [address] [place] [address] Dr. Tom Dotson BASOM # 0.00 103/ul Normal 0.00-0.10 [facility] Comment on above: Performed By: #### D IFF #### [facility] [address] [place] [address] Dr. Tom Dotson BASOM % 0.0 % Critically low 0.2-2.0 [facility] Comment on above: Performed By: #### D IFF #### [facility] [address] [place] [address] Dr. Tom Dotson BLAST # Normal [facility] Comment on above: Performed By: #### D IFF #### [facility] [address] [place] [address] Dr. Tom Dotson BLAST % Normal [facility] Comment on above: Performed By: #### D IFF #### [facility] [address] [place] [address] Dr. Tom Dotson CORRECTED WBC Normal 4.0-11.0 [facility] Comment on above: Performed By: #### D IFF #### [facility] [address] [place] [address] Dr. Tom Dotson EOS # 1.22 103/ul Critically high 0.00-0.70 [facility] Comment on above: Performed By: #### D IFF #### [facility] [address] [place] [address] Dr. Tom Dotson EOS% 14.0 % Critically high 0.9-7.0 [facility] Comment on above: Performed By: #### D IFF #### [facility] [address] [place] [address] Dr. Tom Dotson LYMPHM # 1.91 103/ul Normal 1.20-3.80 [facility] Comment on above: Performed By: #### D IFF #### [facility] [address] [place] [address] Dr. Tom Dotson LYMPHM% 22.0 % Normal 20.5-60.0 [facility] Comment on above: Performed By: #### D IFF #### [facility] [address] [place] [address] Dr. Tom Dotson METAMYELOCYTE # Normal [facility] Comment on above: Performed By: #### D IFF #### [facility] [address] [place] [address] Dr. Tom Dotson METAMYELOCYTE % Normal [facility] Comment on above: Performed By: #### D IFF #### [facility] [address] [place] [address] Dr. Tom Dotson MONOM# 0.52 103/ul Normal 0.30-0.80 [facility] Comment on above: Performed By: #### D IFF #### [facility] [address] [place] [address] Dr. Tom Dotson MONOM% 6.0 % Normal 1.7-12.0 [facility] Comment on above: Performed By: #### D IFF #### [facility] [address] [place] [address] Dr. Tom Dotson MYELOCYTE # Normal [facility] Comment on above: Performed By: #### D IFF #### [facility] [address] [place] [address] Dr. Tom Dotson MYELOCYTE % Normal [facility] Comment on above: Performed By: #### D IFF #### [facility] [address] [place] [address] Dr. Tom Dotson NRBC Normal [facility] Comment on above: Performed By: #### D IFF #### [facility] [address] [place] [address] Dr. Tom Dotson SEG # 4.96 103/ul Normal 1.40-6.50 [facility] Comment on above: Performed By: #### D IFF #### [facility] [address] [place] [address] Dr. Tom Dotson SEG % 57.0 % Normal 43.0-75.0 [facility] Comment on above: Performed By: #### D IFF #### [facility] [address] [place] [address] Dr. Tom Dotson WBC 8.7 103/ul Normal 4.0-11.0 [facility] Comment on above: Performed By: #### D IFF #### [facility] [address] [place] [address] Dr. Tom Dotson LIPID PROFILEon 06-15-2022 CHOL-HDL RATIO NORM SEE BELOW Normal [facility] Comment on above: Result Comment: 3.3 - 4.4 LOW RISK 4.4 - 7.1 AVERAGE RISK 7.1 - 11.0 MODERATE RISK >11.0 HIGH RISK Performed By: #### I NFLUAB #### [facility] [address] [address] [address] Tom Dotson Cholesterol [Mass/Vol] 135 mg/dL Normal <=200 [facility] Comment on above: Performed By: #### I NFLUAB #### [facility] [address] [address] [address] Tom Dotson Cholesterol in HDL [Mass/Vol] 51 mg/dL Normal 40-60 [facility] Comment on above: Performed By: #### I NFLUAB #### [facility] [address] [address] [address] Tom Dotson Cholesterol in LDL [Mass/Vol] 74.4 mg/dL Normal [facility] Comment on above: Performed By: #### I NFLUAB #### [facility] [address] [address] [address] Tom Dotson Cholesterol.total/Ch olesterol in HDL [Mass ratio] 2.6 {ratio} Normal [facility] Comment on above: Performed By: #### I NFLUAB #### [facility] [address] [address] [address] Tom Dotson HDL NORMAL > or = 60 mg/dl - LO W CARDIOVASCULAR RISK <40 mg/dl - HIGH CARDIOVASCULAR RISK Normal [facility] Comment on above: Performed By: #### I NFLUAB #### [facility] [address] [address] [address] Tom Dotson LDL CALC NORMAL SEE BELOW Normal [facility] Comment on above: Result Comment: <100 mg/dl OPTIMAL 100 - 129 mg/dl NEAR OR ABOVE OPTIMAL 130 - 159 mg/dl BORDERLINE HIGH 160 - 189 mg/dl HIGH >190 mg/dl VERY HIGH Performed By: #### I NFLUAB #### [facility] [address] [address] [address] Tom Dotson Triglyceride [Mass/Vol] 48 mg/dL Normal <=150 [facility] Comment on above: Performed By: #### I NFLUAB #### [facility] [address] [place] [address] Dr. Tom Dotson VLDL CALC 9.6 mg/dL Normal [facility] Comment on above: Performed By: #### I NFLUAB #### [facility] [address] [place] [address] Dr. Tom Dotson PROF 14(COMP METB)on 022 Albumin [Mass/Vol] 3.8 g/dL Normal 3.4-5.0 [facility] Comment on above: Performed By: #### I NFLUAB #### [facility] [address] [place] [address] Dr. Tom Dotson Albumin/Globulin [Mass ratio] 1.1 {ratio} Normal [facility] Comment on above: Performed By: #### I NFLUAB #### [facility] [address] [place] [address] Dr. Tom Dotson ALP [Catalytic activity/Vol] 62 U/L Normal 46-116 [facility] Comment on above: Performed By: #### I NFLUAB #### [facility] [address] [place] [address] Dr. Tom Dotson ALT [Catalytic activity/Vol] 25 U/L Normal 16-63 [facility] Comment on above: Performed By: #### I NFLUAB #### [facility] [address] [place] [address] Dr. Tom Dotson Anion gap [Moles/Vol] 9.8 mmol/L Normal [facility] Comment on above: Performed By: #### I NFLUAB #### [facility] [address] [place] [address] Dr. Tom Dotson AST [Catalytic activity/Vol] 15 U/L Normal 15-37 [facility] Comment on above: Performed By: #### I NFLUAB #### [facility] [address] [place] [address] Dr. Tom Dotson Bilirubin [Mass/Vol] 0.9 mg/dL Normal 0.2-1.0 [facility] Comment on above: Performed By: #### I NFLUAB #### [facility] [address] [place] [address] Dr. Tom Dotson Calcium [Mass/Vol] 8.8 mg/dL Normal 8.5-10.1 [facility] Comment on above: Performed By: #### I NFLUAB #### [facility] [address] [address] [address] Tom Dotson Chloride [Moles/Vol] 102 mmol/L Normal 98-107 [facility] Comment on above: Performed By: #### I NFLUAB #### [facility] [address] [place] [address] Dr. Tom Dotson CO2 [Moles/Vol] 30.5 mmol/L Normal 21.0-32.0 [facility] Comment on above: Performed By: #### I NFLUAB #### [facility] [address] [place] [address] Dr. Tom Dotson Creatinine [Mass/Vol] 0.95 mg/dL Normal 0.70-1.30 [facility] Comment on above: Performed By: #### I NFLUAB #### [facility] [address] [place] [address] Dr. Tom Dotson EGFR-AF BOLIVIAN >60 Normal >=60 [facility] Comment on above: Performed By: #### I NFLUAB #### [facility] [address] [place] [address] Dr. Tom Dotson EGFR-NON AF BOLIVIAN >60 Normal >=60 [facility] Comment on above: Performed By: #### I NFLUAB #### [facility] [address] [place] [address] Dr. Tom Dotson Globulin (S) [Mass/Vol] 3.4 g/dL Normal [facility] Comment on above: Performed By: #### I NFLUAB #### [facility] [address] [place] [address] Dr. Tom Dotson Glucose [Mass/Vol] 85 mg/dL Normal 74-106 [facility] Comment on above: Performed By: #### I NFLUAB #### [facility] [address] [address] [address] Tom Dotson Potassium [Moles/Vol] 4.3 mmol/L Normal 3.5-5.1 [facility] Comment on above: Performed By: #### I NFLUAB #### [facility] [address] [address] [address] Tom Dotson Protein [Mass/Vol] 7.2 g/dL Normal 6.4-8.2 [facility] Comment on above: Performed By: #### I NFLUAB #### [facility] [address] [place] [address] Dr. Tom Dotson Sodium [Moles/Vol] 138 mmol/L Normal 136-145 [facility] Comment on above: Performed By: #### I NFLUAB #### [facility] [address] [place] [address] Dr. Tom Dotson Urea nitrogen [Mass/Vol] 14.0 mg/dL Normal 7.0-18.0 [facility] Comment on above: Performed By: #### I NFLUAB #### [facility] [address] [place] [address] Dr. Tom Dotson Urea nitrogen/Creatinine [Mass ratio] 14.7 mg/mg Normal [facility] Comment on above: Performed By: #### I NFLUAB #### [facility] [address] [place] [address] Dr. Tom Dotson TSHon 03-06-2022 TSH 1.010 uIU/mL Normal 0.358-3.740 [facility] Comment on above: Performed By: #### I NFLUAB #### [facility] [address] [place] [address] Dr. Tom Dotson Hepatic Panelon 09-02-2019 Albumin [Mass/Vol] 3.2 g/dL Normal 3.2-5.5 [facility] Comment on above: Performed By: #### H EPATIC, LIPID, TSH3 wRFLX, [id number] #### [facility] [address] [place] [address] Albumin/Globulin [Mass ratio] 1.1 {ratio} Normal [facility] Comment on above: Performed By: #### H EPATIC, LIPID, TSH3 wRFLX, [id number] #### [facility] [address] [place] [address] ALP [Catalytic activity/Vol] 38 U/L Normal 32-92 [facility] Comment on above: Performed By: #### H EPATIC, LIPID, TSH3 wRFLX, [id number] #### [address] ALT [Catalytic activity/Vol] 14 U/L Normal 10-60 [facility] Comment on above: Performed By: #### H EPATIC, LIPID, TSH3 wRFLX, [id number] #### [facility] [address] [place] [address] AST [Catalytic activity/Vol] 13 U/L Normal 10-42 [facility] Comment on above: Performed By: #### H EPATIC, LIPID, TSH3 wRFLX, [id number] #### [address] Bilirubin [Mass/Vol] 0.9 mg/dL Normal 0.3-1.2 [facility] Comment on above: Performed By: #### H EPATIC, LIPID, TSH3 wRFLX, [id number] #### [facility] [address] [place] [address] [place] Bilirubin,Indirect 0.8 mg/dL Normal [facility] Comment on above: Performed By: #### H EPATIC, LIPID, TSH3 wRFLX, [id number] #### [place] [address] [place] Bilirubin.direct [Mass/Vol] 0.1 mg/dL Normal 0.0-0.4 [facility] Comment on above: Performed By: #### H EPATIC, LIPID, TSH3 wRFLX, [id number] #### [address] [place] [address] [place] Globulin (S) [Mass/Vol] 2.9 g/dL Normal [facility] Comment on above: Performed By: #### H EPATIC, LIPID, TSH3 wRFLX, [id number] #### [facility] [address] [id number] [facility] Protein [Mass/Vol] 6.1 g/dL Normal 6.1-7.9 [facility] Comment on above: Performed By: #### H EPATIC, LIPID, TSH3 wRFLX, [id number] #### [address] Lipid Panelon 09-02-2019 Cholesterol [Mass/Vol] 158 mg/dL Normal 140-200 [facility] Comment on above: Result Comment: Chol less than 200 mg/dl low risk Chol 201-239 mg/dl borderline risk Chol 240 mg/dl and greater high risk Performed By: #### H EPATIC, LIPID, TSH3 wRFLX, [id number] #### [address] Cholesterol in HDL [Mass/Vol] 61 mg/dL Normal 29-71 [facility] Comment on above: Result Comment: HDL CHOL ATP-III CLASSIFICATION Cardiovascular Risk HDL > or equal to 60 mg/dL LOW HDL < 40 mg/dL HIGH Performed By: #### H EPATIC, LIPID, TSH3 wRFLX, [id number] #### [facility] [address] [place] [address] Cholesterol.total/Ch olesterol in HDL [Mass ratio] 2.6 {ratio} Normal <5.0 [facility] Comment on above: Performed By: #### H EPATIC, LIPID, TSH3 wRFLX, [id number] #### [facility] [address] [place] [address] LDL Cholesterol,Calculat ed 84 mg/dL Normal 0-100 [facility] Comment on above: Result Comment: LDL ATP III CLASSIFICATION LDL less than 100 mg/dL Optimal LDL 100-129 mg/dL Near or above optimal LDL 130-159 mg/dL Borderline high LDL 160-189 mg/dL High LDL greater than 189 mg/dL Very high Performed By: #### H EPATIC, LIPID, TSH3 wRFLX, [id number] #### [facility] [address] Triglyceride w/Reflex 63 mg/dL Normal 35-149 [facility] Comment on above: Result Comment: TRIG ATP III CLASSIFICATION TRIG less than 150 mg/dL Normal TRIG 150-199 mg/dL Borderline high TRIG 200-500 mg/dL High TRIG greater than 500 mg/dL Very high Standard traceable to the Center for Disease Conrtrol and Prevention (CDC) test method. Performed By: #### H EPATIC, LIPID, TSH3 wRFLX, [id number] #### [facility] [address] VLDL CHOLESTEROL 12 mg/dL Normal [facility] Comment on above: Performed By: #### H EPATIC, LIPID, TSH3 wRFLX, [id number] #### [facility] [address] Thyroid Stim Hormone w/Rflxo n 09-02-2019 Thyroid Stim Hormone w/Rflx 1.92 u[iU]/mL Normal 0.45-5.33 [facility] Comment on above: Performed By: #### H EPATIC, LIPID, TSH3 wRFLX, [id number] #### [facility] [address] [place] [address] Vitamin D 25 Hydroxy Totalon 09-02-2019 Vitamin D 25 Hydroxy Total 11.9 ng/mL Low 30-100 [facility] Comment on above: Result Comment: DAE MIN D STATUS 25(OH)VITAMIN D RANGE (ng/mL) Deficient <20 Insufficient 20 to <30 Sufficient 30 to 100 Reference: Darrion MF,Zane NC, Hanna AVELAR, et al. Evaluation,treatment, and prevention of vitamin D deficiency; an Endocrine Society clinical practice guideline. JCEM. 2010; 96(7):1911-30. PERFORMED BY: [place] [address] PATHOLOGIST METHODS ANALYST DATA PROCESSING MIGUELINA FLOOD M.D. Performed By: #### H EPATIC, LIPID, TSH3 wRFLX, [id number] #### [facility] [address] Vital Signs Date Time Vital Sign Value Performing Clinician Madan mayer 10-30-2023 10:00-0500 Body height 185.4 cm Azul Maria Luzz KNOWLEDGE MANAGEMENT ADVISOR Work Phone: [facility] 10-30-2023 10:00-0500 Body mass index (BMI) [Ratio] 26.84 kg/m2 Azul Aichholz KNOWLEDGE MANAGEMENT ADVISOR Work Phone: [facility] 10-30-2023 10:00-0500 Body temperature 97.11 [degF] Azul Aichholz KNOWLEDGE MANAGEMENT ADVISOR Work Phone: [facility] 10-30-2023 10:00-0500 Body weight 92.26 kg Azul Aichholz KNOWLEDGE MANAGEMENT ADVISOR Work Phone: [facility] 10-30-2023 10:00-0500 Diastolic blood pressure 78 mm[Hg] Azul Aichholz KNOWLEDGE MANAGEMENT ADVISOR Work Phone: [facility] 10-30-2023 10:00-0500 Heart rate 83 /min Azul Aichholz KNOWLEDGE MANAGEMENT ADVISOR Work Phone: [facility] 10-30-2023 10:00-0500 Respiratory rate 16 /min Azul Aichholz KNOWLEDGE MANAGEMENT ADVISOR Work Phone: [facility] 10-30-2023 10:00-0500 SaO2% (BldA) [Mass fraction] 94 % Azul Leidyhholz KNOWLEDGE MANAGEMENT ADVISOR Work Phone: [facility] 10-30-2023 10:00-0500 Systolic blood pressure 138 mm[Hg] Azul Aichholz KNOWLEDGE MANAGEMENT ADVISOR Work Phone: [facility] Encounters Encounter Date Encounter Type Care Provider Facility Start: 11-13-2023 End: 11-13-2023 ambulatory AZUL AICHHOLZ Not Available Start: 10-30-2023 End: 10-30-2023 ambulatory AZUL AICHHOLZ Not Available Start: 10-30-2023 End: 10-30-2023 Office outpatient visit 15 minutes Azul Quezada NP Work Phone: [facility] Comment on above: Influenza (Primary D x); Marijuana abuse; Smoker; BMI 26.0-26.9,adult; Centrilobular emphysema ([facility]/HCC) Start: 10-21-2023 Clinisync Result Encounter Generic External Data Provider [facility] External Department Unsolicited Start: 10-21-2023 Clinisync Result Encounter Generic External Data Provider [facility] External Department Unsolicited Start: 09-25-2022 End: 09-25-2022 ambulatory INVESTMENT ADVISOR 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 Facility:[facility]1 Start: 04-16-2022 End: 04-17-2022 ambulatory [facility] Facility:[facility] Start: 04-10-2022 End: 04-11-2022 ambulatory [facility] Facility:[facility] Start: 03-06-2022 End: 03-07-2022 ambulatory INVESTMENT ADVISOR 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 Facility:[facility] Procedures Date Procedure Procedure Detail Performing Clinician Start: 10-21-2023 BLOOD CULTURE 2 Generic External Data Provider Start: 10-21-2023 BLOOD CULTURE 1 Generic External Data Provider Start: 03-06-2022 PSA screening [facility] Comment on above: Performed By: #### [facility] #### [facility] [address] [place] [address] Dr. Tom Dotson Plan of Treatment Date Care Activity Detail Author Start: 08-04-2024 Screening for malign ant neoplasm of colon [facility] Start: 03-21-2024 Influenza vaccination Influenza Vacc ine (#1) [facility] Comment on above: Postponed from 05/23 (Patient Refused) Start: 11-13-2023 End: 11-13-2023 Patient encounter procedure 11/13/2023 9:40 AM EST Office Visit [facility] [address] [place] [id number] Azul Quezada NP [address] [place] [id number] [facility] Start: 10-30-2023 End: 10-30-2023 Patient encounter procedure 10/30/2023 10:00 AM EST Office Visit [facility] [address] [place] [id number] Azul Quezada, ORACIO [address] [place] [address] [facility] Start: 2023 Influenza vaccination Influenza Vacc ine (#1) [facility] Start: 1960 Medicare Annual Well ness (AWV) Medicare Annual Wellness (AWV) [facility] Start: 1960 Screening for malign ant neoplasm of colon [facility] BLOOD CULTURE 1 BLOOD CULTURE 1 Lab Routine 10/21/2023 12:27 PM EST [facility] BLOOD CULTURE 2 BLOOD CULTURE 2 Lab Routine 10/21/2023 12:30 PM EST [facility] Immunizations Immunization Date Immunization Notes Care Provider [facility] 2020 influenza, live, intranasal, quadrivalent Azul Quezada KNOWLEDGE MANAGEMENT ADVISOR Work Phone: [facility] 2020 influenza virus vacc ine, unspecified formulation Generic Provider [facility] 08-04-2019 influenza, high dose seasonal, preservative-free Azul Quezada KNOWLEDGE MANAGEMENT ADVISOR Work Phone: [facility] Payers Date Payer Category Payer Medicare [id number] 1993 Medicare [id number] 1960 Unknown [id number] 2.16.84 [id number] 1960 Unknown [id number] 2.16.84 [id number] 1960 Unknown [id number] 2.16.84 [id number] 1960 Unknown [id number] 2.16.84 [id number] 1960 Unknown [id number] 2.16.84 [id number] 1960 Unknown [id number] 2.16.84 [id number] 1959 Medicaid [id number] 1959 Unknown [id number] Social History Date Type Detail Facility Tobacco smoking stat [facility] Tobacco smoking consumption unknown [facility] Start: 1960 Sex Assigned At Not on file [facility] Start: 10-30-2023 Gender identity Not on file [facility] Start: 10-30-2023 Tobacco smoking stat [facility] Ex-smoker [facility] End: 03-22-2019 History [...] complaint on file. HPI: Recent hospitalization at [facility] for 3 days d/t influenza. Does report [...] artery stenosis Calcified lymph nodes Centrilobular emphysema ([facility]) COVID-19 07/2019 CVA (cerebral vascular accident) ([facility]) Degenerative cervical disc Depression with anxiety Insomnia Marijuana abuse 10/30/2023 Multiple pulmonary nodules Neck mass 2013 Osteoarthritis Papule of skin Pigmented skin lesion of uncertain nature Rheumatic fever Stroke ([facility]) 07/2020 Testicle lump Tourette's ([facility]) Vertebral artery occlusion Vocal cord polyp Past Surgical History: Procedure Laterality Date ADENOIDECTOMY CAROTID STENT Right 09/2019 stent, RT carotid CT GUIDED TRANSVAGINAL TRANSRECTAL FLUID DRAIN 06/09/2020 CT GUIDED TRANSVAGINAL TRANSRECTAL FLUID DRAIN 06/09/2020 OTHER SURGICAL HISTORY Removal of Polyp Vocal area and Vocal Cord cyst [place] EXCISION THYROGLOSSAL DUCT CYST/SINUS Procedure:DL, e/o thyroglossal [...] section and content) DATE CREATED AUTHOR 09/04/2019 [facility] DATE CREATED AUTHOR AUTHOR'S ORGANIZ ATION 09/30/2022 [facility] DATE CREATED AUTHOR AUTHOR'S ORGANIZ ATION 11/21/2023 [facility] [employer] Specialists [facility] Care Teams (unrecognized sec tion and content) Branding Specialist Relationship Specialty Start Date End Date Kiko Zurita MD PCP - General Family Medicine 04/07/23 Azul Quezada NP [address] [place] [address] Referring Physician Nurse Practitioner 04/07/23 Branding Specialist Relationship Specialty Start Date End Date Kiko Zurita MD [address] [place] [address] PCP - General Family Medicine 10/24/23 Azul Quezada NP [address] [place] [address] Referring Physician Nurse Practitioner 04/07/23 FOR [...] BE BASED ON THE PRIMARY CLINICAL RECORDS. [facility]. provides no warranty or guarantee of the accuracy or completeness of information in this document.
[2023-12-07] MEDS: IPRATROPIUM/ALBUTEROL SULFATE 3 ML AMPUL.NEB IH ×2 (19:28→23:13)
[2023-12-07 20:39] LABS: Adenovirus NOT DETECTED (NOT DETECTE); Bordetella parapertussis NOT DETECTED (NOT DETECTE); Coronavirus 229E NOT DETECTED (NOT DETECTE); Coronavirus HKU1 NOT DETECTED (NOT DETECTE); Coronavirus NL63 NOT DETECTED (NOT DETECTE); Coronavirus OC43 NOT DETECTED (NOT DETECTE); Human Metapneumovirus NOT DETECTED (NOT DETECTE); Human Rhinovirus/Enterovirus NOT DETECTED (NOT DETECTE); Influenza A NOT DETECTED (NOT DETECTE); Influenza B NOT DETECTED (NOT DETECTE); Mycoplasma pneumoniae NOT DETECTED (NOT DETECTE); Parainfluenza Virus 1 NOT DETECTED (NOT DETECTE); Parainfluenza Virus 2 NOT DETECTED (NOT DETECTE); Parainfluenza Virus 3 NOT DETECTED (NOT DETECTE); Parainfluenza Virus 4 NOT DETECTED (NOT DETECTE); Respiratory Syncytial Virus NOT DETECTED (NOT DETECTE); SARS-CoV-2 NOT DETECTED (NOT DETECTE)
[2023-12-07] MEDS: TRAZODONE HCL 50 MG TABLET PO (21:46)
[2023-12-07] MEDS: LEVOFLOXACIN IN DEXTROSE 5 % 750 MG/150 ML IV.SOLN 100 MG IV (21:46)
[2023-12-07] MEDS: METHYLPREDNISOLONE SOD SUCC PF 125 MG/2 ML VIAL 60 MG IVP (21:46)
[2023-12-08] VITALS (8 sets, daily range): BP systolic 106–147; BP diastolic 52–78; PULSE 79–90; RESP 18–20; TEMP 36.3–36.8; O2SAT 90–94
[2023-12-08] MEDS: METHYLPREDNISOLONE SOD SUCC PF 125 MG/2 ML VIAL 60 MG IVP ×2 (02:11→07:40)
[2023-12-08 05:21] LABS: Hematocrit 39.2 % (42.0-54.0); Hemoglobin 12.4 g/dL (14.0-18.0); Mean Corpuscular HGB Conc 31.6 g/dL (29.9-35.2); Mean Corpuscular Hemoglobin 29.1 pg (25.9-34.0); Mean Platelet Volume 9.4 fL (9.5-13.5); Platelet Count 391 10^3/uL (150-450); Red Blood Count 4.26 10^6/uL (4.70-6.10); Red Cell Distribution Width 12.8 % (11.0-15.0); White Blood Count 19.5 10^3/uL (4.0-11.0)
[2023-12-08 05:29] LABS: Anion Gap 11.1; Calcium 8.7 mg/dL (8.5-10.1); Carbon Dioxide 27.3 mmol/L (21.0-32.0); Chloride 102 mmol/L (98-107); Estimated GFR (African America >60 (>=60); Estimated GFR (Non-African Ame >60 (>=60); Glucose 139 mg/dL (74-106); Potassium 4.4 mmol/L (3.5-5.1); Sodium 136 mmol/L (136-145)
[2023-12-08] MEDS: ASPIRIN 81 MG TABLET.DR PO (08:48)
[2023-12-08] MEDS: ATORVASTATIN CALCIUM 40 MG TABLET PO (08:48)
[2023-12-08] MEDS: FLUOXETINE HCL 10 MG CAPSULE PO (08:48)
[2023-12-08] MEDS: IPRATROPIUM/ALBUTEROL SULFATE 3 ML AMPUL.NEB IH (11:20)
[2023-12-08] MEDS: BUDESONIDE 0.5 MG/2 ML AMPULE NEB IH (11:20)
--- NOTE | 2023-12-08 11:46 | P.HP_ITS ---
<Statement entered by Kiko Zurita MD - 12/08/23 20:34> Patient seen and examined, agree with assessment and plan below. History of COPD and presented with worsening SOB. Admitted and treated with antibiotics, steroids, and breathing treatments. Improved overnight and remained on room air. Discharged home with steroid taper and levaquin. Diagnosis: 1. Acute exacerbation of COPD 2. Cerebrovascular disease HPI H&P: HPI History of Present Illness Chief complaint: SOB, Acute COPD Narrative: 12/08/23 1030 This is a 63-year-old male patient with a past medical history as outlined below including depression and COPD; who presented to the ED yesterday afternoon complaining of increased shortness of breath while at work. 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 He was discharged from this facility on 12/01/2023 after brief observation admission for COPD exacerbation and hypoxia. He was discharged on azithromycin and a prednisone taper and had been feeling mostly at his baseline until this episode yesterday. Workup in the ED was mostly benign with a chest x-ray revealing no acute disease and an EKG with normal sinus rhythm. He had leukocytosis (19.5), but it is trending down from his previous admission. Respiratory panel was negative for acute respiratory infections. As the patient was wheezing somewhat in the ED he was admitted in observation to the hospitalist service last night for recurrent COPD exacerbation. At the time of my exam the patient is resting comfortably in bed. The patient admits to a significant amount of anxiety due to pending legal issues and notes that some of his symptoms may be due to anxiety more than his respiratory status. He again reports feeling back to his baseline. As he continues to have tight lung sounds, despite being discharged on a prednisone taper a few days ago, we will re-prescribe a longer prednisone taper to occur over the next 5 weeks. In addition we have changed his antibiotic from azithromycin to Levaquin for possible concurrent bronchitis treatment. We will prescribe hydroxyzine as needed for anxiety. As the patient is off of oxygen and feels at his baseline he is being discharged home in stable condition. He should follow-up with his PCP as previously scheduled from his last discharge, and with Dr. Boo next month as previously scheduled. Opioid HPI Opioid Management Most Recent Opioid Data: Last Pain Assessment 12/08/23 12:31 Last ORT Total Score 6 12/07/23 16:54 Last ORT Risk Category Moderate Risk 12/07/23 16:54 Review of Systems ROS Status of ROS 10 or more systems reviewed and unremark able except as noted in history and below [facility] History (Updated 12/08/23 @ 11:49 by Kat Molina NP) Anxiety ?F41.9 - Anxiety disorder, unspecified (ICD-10) Cerebrovascular disease ?I67.9 - Cerebrovascular disease, unspecified (ICD-10) COPD (chronic obstructive pulmonary disease) ?J44.9 - Chronic obstructive pulmonary disease, unspecified (ICD-10) Depression, unspecified ?F32.A - Depression, unspecified (ICD-10) Dyslipidemia ?E78.5 - Hyperlipidemia, unspecified (ICD-10) 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 Smoking status: Current every day smoker Second hand tobacco smoke exposure: No Non-prescribed substance use: cannabis (any form) Known occupational exposures/hazards: No Highest level of school completed/degree received: high school graduate Are you now , , , , never or living with a partner: living with partner In a typical week, how many times do you talk on the telephone with family, friends, or neighbors: 3 or more times per week How often do you get together with friends or relatives: 3 or more times per week How often do you attend temple or baptism services: 1-3 times per year Do you belong to any clubs or organizations such as temple groups unions, fraternal or athletic groups, or school groups: no Total score: 2 Score interpretation: A score of greater than or equal to 2 indicates the lowest level of social isolation. Little interest or pleasure in doing things: not at all Feeling down, depressed, or hopeless: not at all Feel stressed/tense/nervous/anxious/difficulty sleeping: not at all Due to disability, difficulty making decisions: No Do you think of yourself as: straight/heterosexual Gender Identity: male Meds Home Medications and Allergies Home Medications Medication Instructions Recorded Confirmed Type albuterol sulfate 90 mcg/actuation 2 inh inhalation Q4H PRN shortness 09/21/23 11/30/23 History aerosol inhaler of breath or wheezing aspirin 81 mg tablet,delayed 81 mg PO DAILY 09/21/23 11/30/23 History release atorvastatin 40 mg tablet 40 mg PO DAILY 09/21/23 11/30/23 History budesonide-formoterol HFA 160 2 inh inhalation Q12H 09/21/23 11/30/23 History mcg-4.5 mcg/actuation aerosol inhaler (Symbicort) fluoxetine 10 mg capsule 10 mg PO DAILY 09/21/23 11/30/23 History tiotropium bromide 2.5 2 puff inhalation Q24H 09/21/23 11/30/23 History mcg/actuation mist for inhalation (Spiriva Respimat) trazodone 50 mg tablet 50 mg PO BEDTIME 09/21/23 11/30/23 History ipratropium 0.5 mg-albuterol 3 mg 3 ml inhalation Q6H PRN shortness 12/01/23 Rx (2.5 mg base)/3 mL nebulization of breath or wheezing #90 mL soln hydroxyzine HCl 25 mg tablet 25 - 50 mg (1 - 2 x 25 mg) PO Q8H 12/08/23 Rx PRN anxiety #30 tabs levofloxacin 750 mg tablet 750 mg PO DAILY 7 days #7 tabs 12/08/23 Rx prednisone 10 mg tablet See Rx Instructions .Route 12/08/23 Rx .COMPLEX 5 weeks #105 tabs Allergies Allergy/AdvReac Type Severity Reaction Status Date / Time No Known Drug Allergies Allergy Verified 09/21/23 00:12 Exam Constitutional Vital Signs, click to edit/add: Last Vital Signs Temp 97.6 F 12/08/23 08:10 Pulse 83 12/08/23 07:12 Resp 18 12/08/23 07:48 BP 143/78 H 12/08/23 07:12 Pulse Ox 91 L 12/08/23 07:12 O2 Del Method Room Air 12/08/23 07:12 O2 Flow Rate 2 12/07/23 13:46 Common normals: no apparent distress, oriented x3, alert and well nourished General appearance: cooperative Orientation/consciousness: Yes awake HENMT Common normals: normocephalic, head/scalp atraumatic, hearing grossly normal bilaterally, external nose normal and moist oral mucous membranes Eye Common normals: PERRL, EOMs intact bilaterally, conjunctivae normal and no scleral icterus Alignment: alignment normal Eyelid: eyelids normal Neck & C-Spine Common normals: full ROM, supple and no JVD Chest Common normals: inspection of chest normal Chest: symmetrical chest wall rise Respiratory Common normals: normal respiratory effort, no retractions, no use of accessory muscles and clear to auscultation bilaterally Effort & inspection: able to speak in complete sentences Auscultation: diminished lung sounds (Mid down to bases bilat, moderately tight) Cardio Common normals: no JVD, regular rate, regular rhythm, S1 normal heart sound, S2 normal heart sound, no gallops, no clicks, no murmurs, no rub and peripheral pulses 2+ throughout GI Common normals: Normal to inspection, nondistended, normoactive bowel sounds present, soft to palpation, non-tender, no hepatosplenomegaly, no masses and no bruits Bladder/kidney exam: bladder normal to palpation Back & Pelvis Common normals: thoracic and lumbar spine normal to inspection Extremity Common normals: normal capillary refill and no pedal edema General: normal exam except as noted; no cyanosis Neuro [place] Coma Scale: GCS not evaluated Common normals: CN's II-XII intact bilaterally, moves all extremities, no focal motor deficits and no sensory deficits noted Speech: speech normal Motor exam: strength 5/5 throughout Psych Common normals: mental status grossly normal, thought process normal, affect normal and activity/motor behavior normal Results Labs Labs: Short CBC 12/07/23 12/08/23 Range/Units 13:47 04:40 WBC 18.0 H 19.5 H (4.0-11.0) 10^3/uL Hgb 12.8 L 12.4 L (14.0-18.0) g/dL Hct 40.2 L 39.2 L (42.0-54.0) % Plt Count 436 391 (150-450) 10^3/uL BMP 12/07/23 12/08/23 13:47 04:40 Sodium 136 136 Potassium 4.2 4.4 Chloride 101 102 Carbon Dioxide 29.3 27.3 BUN 12.0 10.0 Creatinine 0.85 0.77 Glucose 167 H 139 H Calcium 8.3 L 8.7 Pulse Oximetry Attestation: I have reviewed the pertinent pulse oximetry results. Imaging Chest x-ray: Attestation: I have reviewed the pertinent imaging results. Radiologist's impression: IMPRESSION: No acute cardiopulmonary process. Assessment and Plan Assessment and Plan (1) Acute exacerbation of chronic obstructive pulmonary disease: Assessment and Plan: Acute * Adm observation * O2 briefly applied last night, but pt has been stable on RA most of the night * Solu-medrol IVP given in ED and q6h overnight * Plan long prednisone taper x 5 weeks at d/c * Levaquin for suspected associated bronchitis * Continue home duonebs, symbicort, and spiriva respimat at d/c * d/c home (2) Anxiety: Assessment and Plan: Chronic * Hydroxyzine PRN for anxiety (3) Depression, unspecified: Assessment and Plan: Chronic * Continue home fluoxetine (4) Dyslipidemia: Assessment and Plan: Chronic * Continue home statin
--- NOTE | 2023-12-08 12:01 | CM.NOTE ---
Rounds made with Dr. Zurita, discussed with pt about discharge to home today. No discharge needs identified, pt up ad malik in room. Pt does have nebulizer machine at home. Pt will follow up with PCP. Pt was also given information last visit regarding pulmonary rehab and plans on following through with discussing this with conveyor system operator.
--- NOTE | 2023-12-08 12:06 | CM.NOTE ---
Medicare Outpatient Observation Notice discussed with pt, pt verbalizes understanding and signs paper. Original given to pt and copy placed on pt's chart.
--- NOTE | 2023-12-08 12:28 | SWNOTE1 ---
Pt is not sure he will have a ride from his friend. SW called and set up trips, they will be here between 1:00-1:30. SW notified nursing.
--- NOTE | 2023-12-09 15:43 | CM.DCFOLLOWU ---
Person spoke with: Sam How are you feeling? Still some shortness of breath How is your pain? No pain Did you understand your discharge instructions? Yes Do you have any questions about your discharge instructions? No Were you given any prescriptions at discharge? Yes Were you able to get your prescriptions filled? I picked everything up but one, Im picking that up today (discussed importance of picking antibiotic up today) Do you understand how to take your medications as ordered? Yes Do you have any questions about your follow up appointment and do you plan to keep your follow up appointment? No it is already scheduled and I will go Is there anything else that you would like to discuss? No Questions/Comments/Concerns/Other:
--- NOTE | 2023-12-10 14:37 | CM.DCFOLLOWU ---
Person spoke with: Sam Carrasco How are you feeling? Feeling alright. Pretty good. How is your pain? NA Did you understand your discharge instructions? yes Do you have any questions about your discharge instructions? no Were you given any prescriptions at discharge? yes Were you able to get your prescriptions filled? all but one. Unable to get antibiotic due to issues with insurance. Metal Template Maker explained importance of getting the prescription filled. Pt is going to check on the prescription today. Do you understand how to take your medications as ordered? yes Do you have any questions about your follow up appointment and do you plan to keep your follow up appointment? No questions and plans to keep appointments Is there anything else that you would like to discuss? no Questions/Comments/Concerns/Other: None
== END 2023-12-08 13:00 | disposition home or self-care (01) ==
LOC: ER 16:27 → MS 16:30
PROVIDERS: Registered Nurse; Admitting Provider Family Medicine; Emergency Provider Emergency Medicine; PCP Nurse Practitioner; Visit Provider Family Medicine
DX: J44.1 Chronic obstructive pulmonary disease with (acute) exacerbation (principal); I67.9 Cerebrovascular disease, unspecified; F41.9 Anxiety disorder, unspecified; F32.A Depression, unspecified; E78.5 Hyperlipidemia, unspecified; Z90.89 Acquired absence of other organs; Z79.899 Other long term (current) drug therapy; Z79.82 Long term (current) use of aspirin; Z20.822 Contact with and (suspected) exposure to COVID-19
CPT/HCPCS: 0202U; 36415; 71045; 80048; 84484; 85007; 85027; 87804; 87811; 93005; 94640; 94761; 96365; 96366; 96375; 96376; 99285; G0378; J2930

== ENCOUNTER 2024-05-30 11:25 | Emergency (ER) | payer MEDICARE, SELFPAY ==
[2024-05-30] VITALS (8 sets, daily range): BP systolic 114; BP diastolic 92; PULSE 83–96; TEMP 37; O2SAT 93–98; BMI 23.5
--- OUTSIDE RECORDS SUMMARY | 2024-05-30 11:33 | XMS_ITS | CCD ---
Author Organization [facility] Care Team Providers Care Starting Sheet Tank Operator Name Role Phone SAMSA, JAMESON Admitting Unavailable SAMSA, JAMESON Attending Unavailable AICHHOLZ, TOMB MAKER HELPER AZUL Referring Unavailable AICHHOLZ, TOMB MAKER HELPER AZUL Primary Care Unavailable SAMSA, JAMESNO Consulting Unavailable AICHHOLZ, TOMB MAKER HELPER AZUL Admitting Unavailable AICHHOLZ, TOMB MAKER HELPER AZUL Attending Unavailable AICHHOLZ, TOMB MAKER HELPER AZUL Primary Care Unavailable AICHHOLZ, TOMB MAKER HELPER AZUL Consulting Unavailable SAMSA, JAMESON Admitting Unavailable SAMSA, JAMESON Attending Unavailable AICHHOLZ, TOMB MAKER HELPER AZUL Primary Care Unavailable WHITNEY, DR YARIEL Figueroa Consulting Unavailable SAMSA, JAMESON Consulting Unavailable AICHHOLZ, TOMB MAKER HELPER AZUL Primary Care Unavailable DAREN, DR MAURO Admitting Unavailable DAREN, DR MAURO Attending Unavailable WHITNEY, DR YARIEL Figueroa Consulting Unavailable DAREN, DR MAURO Consulting Unavailable Yudith YANG, Kiko Primary Care Provider [phone] [employer], Azul Unavailable Kiko Zurita MD Primary Care Provider [phone] AICHHOLZ, AZUL Attending Unavailable AICHHOLZ, AZUL Attending Unavailable AICHHOLZ, AZUL Attending Unavailable AICHHOLZ, AZUL Attending Unavailable AICHHOLZ, AZUL Attending [...] B (Bld) [Mass/Vol] 42.0 pg/mL Normal <=900.0 [facility] Comment on above: Performed By: #### I NFLUAB #### [facility] [address] [place] [address] Dr. Tom Dotson CBC AUTO DIFFon 09-25-2022 BASO # 0.1 103/ul Normal 0.0-0.1 [facility] Comment on above: Performed By: #### C BC #### [facility] [address] [place] [address] Dr. Tom Dotson Basophils/100 WBC (Bld) 0.8 % Normal 0.2-2.0 [facility] Comment on above: Performed By: #### C BC #### [facility] [address] [place] [address] Dr. Tom Dotson EO # 0.0 103/ul Normal 0.0-0.7 [facility] Comment on above: Performed By: #### C BC #### [facility] [address] [place] [address] Dr. Tom Dotson Eosinophils/100 WBC (Bld) 0.0 % Critically low 0.9-7.0 [facility] Comment on above: Performed By: #### C BC #### [facility] [address] [place] [address] Dr. Tom Dotson Erythrocyte distribution width (RBC) [Ratio] 12.4 % Normal 11.0-15.0 [facility] Comment on above: Performed By: #### C BC #### [facility] [address] [place] [address] Dr. Tom Dotson Hematocrit (Bld) [Volume fraction] 43.6 % Normal 42.0-54.0 [facility] Comment on above: Performed By: #### C BC #### [facility] [address] [place] [address] Dr. Tom Dotson Hemoglobin (Bld) [Mass/Vol] 14.3 g/dL Normal 14.0-18.0 [facility] Comment on above: Performed By: #### C BC #### [facility] [address] [place] [address] Dr. Tom Dotson IG # 0.02 10e3/ul Normal 0.00-0.03 [facility] Comment on above: Performed By: #### C BC #### [facility] [address] [place] [address] Dr. Tom Dotson IG % 0.3 % Normal 0.0-0.5 [facility] Comment on above: Performed By: #### C BC #### [facility] [address] [place] [address] Dr. Tom Dotson LYMPH # 1.4 103/ul Normal 1.2-3.8 [facility] Comment on above: Performed By: #### C BC #### [facility] [address] [place] [address] Dr. Tom Dotson Lymphocytes/100 WBC (Bld) 17.3 % Critically low 20.5-60.0 [facility] Comment on above: Performed By: #### C BC #### [facility] [address] [place] [address] Dr. Tom Dotson MANUAL DIFF REQ NO Normal [facility] Comment on above: Performed By: #### C BC #### [facility] [address] [place] [address] Dr. Tom Dotson MCH (RBC) [Entitic mass] 29.8 pg Normal 25.9-34.0 [facility] Comment on above: Performed By: #### C BC #### [facility] [address] [place] [address] Dr. Tom Dotson MCHC (RBC) [Mass/Vol] 32.8 g/dL Normal 29.9-35.2 [facility] Comment on above: Performed By: #### C BC #### [facility] [address] [place] [address] Dr. Tom Dotson MCV (RBC) [Entitic vol] 90.8 fL Normal 80.0-94.0 [facility] Comment on above: Performed By: #### C BC #### [facility] [address] [place] [address] Dr. Tom Dotson MONO # 0.7 103/ul Normal 0.3-0.8 [facility] Comment on above: Performed By: #### C BC #### [facility] [address] [place] [address] Dr. Tom Dotson Monocytes/100 WBC (Bld) 9.4 % Normal 1.7-12.0 [facility] Comment on above: Performed By: #### C BC #### [facility] [address] [place] [address] Dr. Tom Dotson NEUT # 5.7 103/ul Normal 1.4-6.5 [facility] Comment on above: Performed By: #### C BC #### [facility] [address] [place] [address] Dr. Tom Dotson Neutrophils/100 WBC (Bld) 72.2 % Normal 43.0-75.0 [facility] Comment on above: Performed By: #### C BC #### [facility] [address] [place] [address] Dr. Tom Dotson Platelet mean volume (Bld) [Entitic vol] 9.6 fL Normal 9.5-13.5 [facility] Comment on above: Performed By: #### C BC #### [facility] [address] [place] [address] Dr. Tom Dotson PLT 331 103/ul Normal 150-450 [facility] Comment on above: Performed By: #### C BC #### [facility] [address] [place] [address] Dr. Tom Dotson RBC 4.80 106/ul Normal 4.70-6.10 [facility] Comment on above: Performed By: #### C BC #### [facility] [address] [place] [address] Dr. Tom Dotson WBC 7.8 103/ul Normal 4.0-11.0 [facility] Comment on above: Performed By: #### C BC #### [facility] [address] [place] [address] Dr. Tom Dotson CULTURE BLOODon 09-25-2022 Microscopic examination of blood, culture Culture Observations: NO GROWTH AT 5 DAYS. Normal [facility] Comment on above: Performed By: #### I NFLUAB #### [facility] [address] [place] [address] Dr. Tom Dotson Microscopic examination of blood, culture Culture Observations: NO GROWTH AT 5 DAYS. Normal [facility] Comment on above: Performed By: #### I NFLUAB #### [facility] [address] [place] [address] Dr. Tom Dotson Covid-19 PCR (CVDTB)on SARS-CoV-2 (COVID-19) RNA OLGA+probe Ql (Unsp spec) Not detected Normal NOT DETECTED [facility] Comment on above: Result Comment: When [...] for this test is supported by the [place] of Health and Human Service's declaration that [...] longer be used). Performed By: #### C VDTB #### [facility] [address] [place] [address] Dr. Tom Dotson INFLUENZA A AND B AGon 09-25 INFLUBANNER SEE BELOW Normal [facility] Comment on above: Result Comment: Nega tive for Flu A protein angiten. Infection due to Flu A cannot be ruled out. Flu A angiten in the sample may be below the detection limit of the test. Performed By: #### I NFLUAB #### [facility] [address] [place] [address] Dr. Tom Dots[facility] SEE BELOW Normal [facility] Comment on above: Result Comment: Nega tive for Flu B protein antigen. Infection due to Flu B cannot be ruled out. Flu B antigen in the sample may be below the detection limit of the test. Performed By: #### I NFLUAB #### [facility] [address] [place] [address] Dr. Tom Dotson INFLUENZA A AG Negative Normal NEGATIVE SEE COMMENT [facility] Comment on above: Performed By: #### I NFLUAB #### [facility] [address] [place] [address] Dr. Tom Dotson INFLUENZA B AG Negative Normal NEGATIVE SEE COMMENT [facility] Comment on above: Performed By: #### I NFLUAB #### [facility] [address] [place] [address] Dr. Tom Dotson LACTATE/LACTIC ACIDon 2022 Lactate [Moles/Vol] 0.7 mmol/L Normal 0.4-1.9 [facility] Comment on above: Performed By: #### L ACT #### [facility] [address] [place] [address] Dr. Tom Dotson PROF CHEM 8 (BAS METB)on Anion gap [Moles/Vol] 9.3 mmol/L Normal [facility] Comment on above: Performed By: #### H STROPN, BMP, BNP #### [facility] [address] [place] [address] Dr. Tom Dotson Calcium [Mass/Vol] 8.8 mg/dL Normal 8.5-10.1 [facility] Comment on above: Performed By: #### H STROPN, BMP, BNP #### [facility] [address] [place] [address] Dr. Tom Dotson Chloride [Moles/Vol] 103 mmol/L Normal 98-107 [facility] Comment on above: Performed By: #### H STROPN, BMP, BNP #### [facility] [address] [place] [address] Dr. Tom Dotson CO2 [Moles/Vol] 31.1 mmol/L Normal 21.0-32.0 [facility] Comment on above: Performed By: #### H STROPN, BMP, BNP #### [facility] [address] [place] [address] Dr. Tom Dotson Creatinine [Mass/Vol] 0.77 mg/dL Normal 0.70-1.30 [facility] Comment on above: Performed By: #### H STROPN, BMP, BNP #### [facility] [address] [place] [address] Dr. Tom Dotson EGFR-AF SRI LANKAN >60 Normal >=[address] [facility] Comment on above: Performed By: #### H STROPN, BMP, BNP #### [facility] [address] [address] [address] Tom Dotson EGFR-NON AF SRI LANKAN >60 Normal >=60 [facility] Comment on above: Performed By: #### H STROPN, BMP, BNP #### [facility] [address] [address] [address] Tom Dotson Glucose [Mass/Vol] 98 mg/dL Normal 74-106 [facility] Comment on above: Performed By: #### H STROPN, BMP, BNP #### [facility] [address] [address] [address] Tom Dotson Potassium [Moles/Vol] 4.4 mmol/L Normal 3.5-5.1 [facility] Comment on above: Performed By: #### H STROPN, BMP, BNP #### [facility] [address] [address] [address] Tom Dotson Sodium [Moles/Vol] 139 mmol/L Normal 136-145 [facility] Comment on above: Performed By: #### H STROPN, BMP, BNP #### [facility] [address] [address] [address] Tom Dotson Urea nitrogen [Mass/Vol] 13.0 mg/dL Normal 7.0-18.0 [facility] Comment on above: Performed By: #### H STROPN, BMP, BNP #### [facility] [address] [address] [address] Tom Dotson Urea nitrogen/Creatinine [Mass ratio] 16.9 mg/mg Normal [facility] Comment on above: Performed By: #### H STROPN, BMP, BNP #### [facility] [address] [address] [address] Tom Dotson TROPONIN, HIGH SENSITIVITYon 09-25-2022 HSTROP 7.4 pg/mL Normal 4.0-76.1 [facility] Comment on above: Result Comment: CUT- OFF POINTS HAVE BEEN ESTABLISHED BASED ON THE FOURTH UNIVERSAL DEFINITIONS OF MYOCARDIAL INFARCTION. THE UPPER REFERENCE LIMIT (URL) OF TROPONIN, DEFINED THE 99TH PERCENTILE OF cTnI DISTRIBUTION IN A REFERENCE POPULATION, HAS BEEN CONFIRMED THE DECISION THRESHOLD FOR RI DIAGNOSIS. Performed By: #### I NFLUAB #### [facility] [address] [place] [address] Dr. Tom Dotson XR CHEST 1 Von [...] 2022-09-25 10:55 Normal [facility] ASPERGILLUS AB, QUANTITATIVE DIDon 04-20-2022 Aspergillus flavus Negative Normal Neg:<1:1 [facility] Comment on above: Performed By: #### A SPDID #### [facility] [address] [place] [address] Dr. Tom Dotson Aspergillus fumigatus Negative Normal Neg:<1:1 [facility] Comment on above: Performed By: #### A SPDID #### [facility] [address] [place] [address] Dr. Tom Dotson Aspergillus niger Negative Normal Neg:<1:1 [facility] Comment on above: Performed By: #### A SPDID #### [facility] [address] [place] [address] Dr. Tom Dotson ANTI NEUTROPHIL CYTOPLASMIC AB (ANCA) PRon 04-19-2022 Anti-MPO Antibodies <0.2 Normal 0.0-0.9 [facility] Comment on above: Result Comment: Perf ormed at: BN Performed By: #### C BC #### [facility] [address] [place] [address] Dr. Tom Dotson Anti-PR3 Antibodies <0.2 Normal 0.0-0.9 [facility] Comment on above: Result Comment: Perf ormed at: BN Performed By: #### C BC #### [facility] [address] [place] [address] Dr. Tom Dotson Atypical pANCA <1:20 Normal Neg:<1:20 [facility] Comment on above: Result Comment: The atypical pANCA pattern has been observed in a significant percentage of patients with ulcerative colitis, primary sclerosing cholangitis and autoimmune hepatitis. Performed at: CB Performed By: #### C BC #### [facility] [address] [place] [address] Dr. Tom Dotson Cytoplasmic (C-ANCA) <1:20 Normal Neg:<1:20 [facility] Comment on above: Result Comment: Perf ormed at: CB Performed By: #### C BC #### [facility] [address] [place] [address] Dr. Tom Dotson Perinuclear (P-ANCA) <1:20 Normal Neg:<1:20 [facility] Comment on above: Result Comment: The [...] #### C BC #### [facility] [address] [place] [address] Dr. Tom Dotson IMMUNOGLOBULIN E, TOTALon Immunoglobulin E, Total 68 IU/mL Normal 6-495 [facility] Comment on above: Performed By: #### I GETOT #### [facility] [address] [place] [address] Dr. Tom Dotson ANGIOTENSION-CONVERTING ENZY ME (ELINOR)on 04-17-2022 ELINOR 28 U/L Normal 14-82 [facility] Comment on above: Performed By: #### A NGIOC #### [facility] [address] [place] [address] Dr. Tom Dotson CBC AUTO DIFFon 07-26-2022 BASO # 0.1 103/ul Normal 0.0-0.1 [facility] Comment on above: Performed By: #### I NFLUAB #### [facility] [address] [place] [address] Dr. Tom Dotson Basophils/100 WBC (Bld) 1.0 % Normal 0.2-2.0 [facility] Comment on above: Performed By: #### I NFLUAB #### [facility] [address] [place] [address] Dr. Tom Dotson EO # 0.0 103/ul Normal 0.0-0.7 [facility] Comment on above: Performed By: #### I NFLUAB #### [facility] [address] [place] [address] Dr. Tom Dotson Eosinophils/100 WBC (Bld) 0.1 % Critically low 0.9-7.0 [facility] Comment on above: Performed By: #### I NFLUAB #### [facility] [address] [place] [address] Dr. Tom Dotson Erythrocyte distribution width (RBC) [Ratio] 12.9 % Normal 11.0-15.0 [facility] Comment on above: Performed By: #### I NFLUAB #### [facility] [address] [place] [address] Dr. Tom Dotson Hematocrit (Bld) [Volume fraction] 44.8 % Normal 42.0-54.0 [facility] Comment on above: Performed By: #### I NFLUAB #### [facility] [address] [place] [address] Dr. Tom Dotson Hemoglobin (Bld) [Mass/Vol] 15.0 g/dL Normal 14.0-18.0 [facility] Comment on above: Performed By: #### I NFLUAB #### [facility] [address] [place] [address] Dr. Tom Dotson IG # 0.02 10e3/ul Normal 0.00-0.03 [facility] Comment on above: Performed By: #### I NFLUAB #### [facility] [address] [address] [address] Tom Dotson IG % 0.2 % Normal 0.0-0.5 [facility] Comment on above: Performed By: #### I NFLUAB #### [facility] [address] [address] [address] Tom Dotson LYMPH # 1.4 103/ul Normal 1.2-3.8 [facility] Comment on above: Performed By: #### I NFLUAB #### [facility] [address] [address] [address] Tom Dotson Lymphocytes/100 WBC (Bld) 17.6 % Critically low 20.5-60.0 [facility] Comment on above: Performed By: #### I NFLUAB #### [facility] [address] [place] [address] Dr. Tom Dotson MANUAL DIFF REQ NO Normal [facility] Comment on above: Performed By: #### I NFLUAB #### [facility] [address] [place] [address] Dr. Tom Dotson MCH (RBC) [Entitic mass] 30.9 pg Normal 25.9-34.0 [facility] Comment on above: Performed By: #### I NFLUAB #### [facility] [address] [place] [address] Dr. Tom Dotson MCHC (RBC) [Mass/Vol] 33.5 g/dL Normal 29.9-35.2 [facility] Comment on above: Performed By: #### I NFLUAB #### [facility] [address] [place] [address] Dr. Tmo Dotson MCV (RBC) [Entitic vol] 92.2 fL Normal 80.0-94.0 [facility] Comment on above: Performed By: #### I NFLUAB #### [facility] [address] [address] [address] Tom Dotson MONO # 0.8 103/ul Normal 0.3-0.8 [facility] Comment on above: Performed By: #### I NFLUAB #### [facility] [address] [address] [address] Tom Dotson Monocytes/100 WBC (Bld) 9.6 % Normal 1.7-12.0 [facility] Comment on above: Performed By: #### I NFLUAB #### [facility] [address] [address] [address] Tom Dotson NEUT # 5.9 103/ul Normal 1.4-6.5 [facility] Comment on above: Performed By: #### I NFLUAB #### [facility] [address] [place] [address] Dr. Tom Dotson Neutrophils/100 WBC (Bld) 71.5 % Normal 43.0-75.0 [facility] Comment on above: Performed By: #### I NFLUAB #### [facility] [address] [place] [address] Dr. Tom Dotson Platelet mean volume (Bld) [Entitic vol] 9.9 fL Normal 9.5-13.5 [facility] Comment on above: Performed By: #### I NFLUAB #### [facility] [address] [place] [address] Dr. Tom Dotson PLT 325 103/ul Normal 150-450 [facility] Comment on above: Performed By: #### I NFLUAB #### [facility] [address] [place] [address] Dr. Tom Dotson RBC 4.86 106/ul Normal 4.70-6.10 [facility] Comment on above: Performed By: #### I NFLUAB #### [facility] [address] [place] [address] Dr. Tom Dotson WBC 8.2 103/ul Normal 4.0-11.0 [facility] Comment on above: Performed By: #### I NFLUAB #### [facility] [address] [place] [address] LUNG CANCER SCREENINGon [...] 2022-04-10 22:57 Normal [facility] CBC AUTO DIFFon 03-06-2022 BASO # 0.1 103/ul Normal 0.0-0.1 [facility] Comment on above: Performed By: #### C BC #### [facility] [address] [address] [address] Tom Dotson Basophils/100 WBC (Bld) 1.0 % Normal 0.2-2.0 [facility] Comment on above: Performed By: #### C BC #### [facility] [address] [place], [place] [address] Dr. Tom Dotson EO # 2.5 103/ul Critically high 0.0-0.7 [facility] Comment on above: Performed By: #### C BC #### [facility] [address] [place], [place] [address] Dr. Tom Dotson Eosinophils/100 WBC (Bld) 29.1 % Critically high 0.9-7.0 [facility] Comment on above: Performed By: #### C BC #### [facility] [address] [place] [address] Dr. Tom Dotson Erythrocyte distribution width (RBC) [Ratio] 12.8 % Normal 11.0-15.0 [facility] Comment on above: Performed By: #### C BC #### [facility] [address] [place] [address] Dr. Tom Dotson Hematocrit (Bld) [Volume fraction] 46.6 % Normal 42.0-54.0 [facility] Comment on above: Performed By: #### C BC #### [facility] [address] [place] [address] Dr. Tom Dotson Hemoglobin (Bld) [Mass/Vol] 14.4 g/dL Normal 14.0-18.0 [facility] Comment on above: Performed By: #### C BC #### [facility] [address] [place] [address] Dr. Tom Dotson IG # 0.04 10e3/ul Critically high 0.00-0.03 [facility] Comment on above: Performed By: #### C BC #### [facility] [address] [place] [address] Dr. Tom Dotson IG % 0.5 % Normal 0.0-0.5 [facility] Comment on above: Performed By: #### C BC #### [facility] [address] [place] [address] Dr. Tom Dotson LYMPH # 1.3 103/ul Normal 1.2-3.8 [facility] Comment on above: Performed By: #### C BC #### [facility] [address] [place] [address] Dr. Tom Dotson Lymphocytes/100 WBC (Bld) 15.1 % Critically low 20.5-60.0 [facility] Comment on above: Performed By: #### C BC #### [facility] [address] [place] [address] Dr. Tom Dotson MANUAL DIFF REQ NO Normal [facility] Comment on above: Performed By: #### C BC #### [facility] [address] [address] [address] Tom Dotson MCH (RBC) [Entitic mass] 29.5 pg Normal 25.9-34.0 [facility] Comment on above: Performed By: #### C BC #### [facility] [address] [address] [address] Tom Dotson MCHC (RBC) [Mass/Vol] 30.9 g/dL Normal 29.9-35.2 [facility] Comment on above: Performed By: #### C BC #### [facility] [address] [place] [address] Dr. Tom Dotson MCV (RBC) [Entitic vol] 95.5 fL Critically high 80.0-94.0 [facility] Comment on above: Performed By: #### C BC #### [facility] [address] [place] [address] Dr. Tom Dotson MONO # 0.8 103/ul Normal 0.3-0.8 [facility] Comment on above: Performed By: #### C BC #### [facility] [address] [place] [address] Dr. Tom Dotson Monocytes/100 WBC (Bld) 9.5 % Normal 1.7-12.0 [facility] Comment on above: Performed By: #### C BC #### [facility] [address] [place] [address] Dr. Tom Dotson NEUT # 3.9 103/ul Normal 1.4-6.5 The [facility] Comment on above: Performed By: #### C BC #### [facility] [address] [place] [address] Dr. Tom Dotson Neutrophils/100 WBC (Bld) 44.8 % Normal 43.0-75.0 [facility] Comment on above: Performed By: #### C BC #### [facility] [address] [place] [address] Dr. Tom Dotson Platelet mean volume (Bld) [Entitic vol] 10.2 fL Normal 9.5-13.5 [facility] Comment on above: Performed By: #### C BC #### [facility] [address] [place] [address] Dr. Tom Dotson PLT 328 103/ul Normal 150-450 [facility] Comment on above: Performed By: #### C BC #### [facility] [address] [place] [address] Dr. Tom Dotson RBC 4.88 106/ul Normal 4.70-6.10 [facility] Comment on above: Performed By: #### C BC #### [facility] [address] [place] [address] Dr. Tom Dotson WBC 8.7 103/ul Normal 4.0-11.0 [facility] Comment on above: Performed By: #### C BC #### [facility] [address] [place] [address] Dr. Tom Dotson DIFFERENTIAL MANUALon 2021 ATYPICAL LYMPH # 0.09 103/ul Normal [facility] Comment on above: Performed By: #### D IFF #### [facility] [address] [place] [address] Dr. Tom Dotson ATYPICAL LYMPH % 1 % Normal [facility] Comment on above: Performed By: #### D IFF #### [facility] [address] [place] [address] Dr. Tom Dotson BAND # 0.0 103/ul Normal 0.0-0.3 [facility] Comment on above: Performed By: #### D IFF #### [facility] [address] [place] [address] Dr. Tom Dotson BAND % 0 % Normal 0-5 [facility] Comment on above: Performed By: #### D IFF #### [facility] [address] [place] [address] Dr. Tom Dotson BASOM # 0.00 103/ul Normal 0.00-0.10 [facility] Comment on above: Performed By: #### D IFF #### [facility] [address] [place] [address] Dr. Tom Dotson BASOM % 0.0 % Critically low 0.2-2.0 The [facility] Comment on above: Performed By: #### D IFF #### [facility] [address] [place] [address] Dr. Tom Dotson BLAST # Normal [facility] Comment on above: Performed By: #### D IFF #### [facility] [address] [address] [address] Tom Dotson BLAST % Normal [facility] Comment on above: Performed By: #### D IFF #### [facility] [address] [place] [address] Dr. Tom Dotson CORRECTED WBC Normal 4.0-11.0 The [facility] Comment on above: Performed By: #### D IFF #### [facility] [address] [place] [address] Dr. Tom Dotson EOS # 1.22 103/ul Critically high 0.00-0.70 [facility] Comment on above: Performed By: #### D IFF #### [facility] [address] [place] [address] Dr. Tom Dotson EOS% 14.0 % Critically high 0.9-7.0 [facility] Comment on above: Performed By: #### D IFF #### [facility] [address] [place] [address] Dr. Tom Dotson LYMPHM # 1.91 103/ul Normal 1.20-3.80 [facility] Comment on above: Performed By: #### D IFF #### [facility] [address] [place] [address] Dr. Tom Dotson LYMPHM% 22.0 % Normal 20.5-60.0 [facility] Comment on above: Performed By: #### D IFF #### [facility] [address] [place] [address] Dr. Tom Dotson METAMYELOCYTE # Normal [facility] Comment on above: Performed By: #### D IFF #### [facility] [address] [place] [address] Dr. Tom Dotson METAMYELOCYTE % Normal [facility] Comment on above: Performed By: #### D IFF #### [facility] [address] [address] [address] Tom Dotson MONOM# 0.52 103/ul Normal 0.30-0.80 [facility] Comment on above: Performed By: #### D IFF #### [facility] [address] [address] [address] Tom Dotson MONOM% 6.0 % Normal 1.7-12.0 [facility] Comment on above: Performed By: #### D IFF #### [facility] [address] [address] [address] Tom Dotson MYELOCYTE # Normal [facility] Comment on above: Performed By: #### D IFF #### [facility] [address] [place] [address] Dr. Tom Dotson MYELOCYTE % Normal [facility] Comment on above: Performed By: #### D IFF #### [facility] [address] [place] [address] Dr. Tom Dotson NRBC Normal [facility] Comment on above: Performed By: #### D IFF #### [facility] [address] [place] [address] Dr. Tom Dotson SEG # 4.96 103/ul Normal 1.40-6.50 [facility] Comment on above: Performed By: #### D IFF #### [facility] [address] [place] [address] Dr. Tom Dotson SEG % 57.0 % Normal 43.0-75.0 [facility] Comment on above: Performed By: #### D IFF #### [facility] [address] [address] [address] Tom Dotson WBC 8.7 103/ul Normal 4.0-11.0 [facility] Comment on above: Performed By: #### D IFF #### [facility] [address] [place] [address] Dr. Tom Dotson LIPID PROFILEon 06-15-2022 CHOL-HDL RATIO NORM SEE BELOW Normal [facility] Comment on above: Result Comment: 3.3 - 4.4 LOW RISK 4.4 - 7.1 AVERAGE RISK 7.1 - 11.0 MODERATE RISK >11.0 HIGH RISK Performed By: #### I NFLUAB #### [facility] [address] [address] [address] Tom Dotson Cholesterol [Mass/Vol] 135 mg/dL Normal <=200 [facility] Comment on above: Performed By: #### I NFLUAB #### [facility] [address] [address] [address] Tmo Dotson Cholesterol in HDL [Mass/Vol] 51 mg/dL Normal 40-60 [facility] Comment on above: Performed By: #### I NFLUAB #### [facility] [address] [address] [address] Tom Dotson Cholesterol in LDL [Mass/Vol] 74.4 mg/dL Normal [facility] Comment on above: Performed By: #### I NFLUAB #### [facility] [address] [address] [address] Tom Dotson Cholesterol.total/Ch olesterol in HDL [Mass ratio] 2.6 {ratio} Normal [facility] Comment on above: Performed By: #### I NFLUAB #### [facility] [address] [address] [address] Tom Dotson HDL NORMAL > or = 60 mg/dl - LO W CARDIOVASCULAR RISK <40 mg/dl - HIGH CARDIOVASCULAR RISK Normal [facility] Comment on above: Performed By: #### I NFLUAB #### [facility] [address] [address] [address] Tmo Dotson LDL CALC NORMAL SEE BELOW Normal [facility] Comment on above: Result Comment: <100 mg/dl OPTIMAL 100 - 129 mg/dl NEAR OR ABOVE OPTIMAL 130 - 159 mg/dl BORDERLINE HIGH 160 - 189 mg/dl HIGH >190 mg/dl VERY HIGH Performed By: #### I NFLUAB #### [facility] [address] [address] [address] Tom Dotson Triglyceride [Mass/Vol] 48 mg/dL Normal <=150 [facility] Comment on above: Performed By: #### I NFLUAB #### [facility] [address] [place] [address] Dr. Tom Dotson VLDL CALC 9.6 mg/dL Normal [facility] Comment on above: Performed By: #### I NFLUAB #### [facility] [address] [place] [address] Dr. Tom Dotson PROF 14(COMP METB)on 022 Albumin [Mass/Vol] 3.8 g/dL Normal 3.4-5.0 [facility] Comment on above: Performed By: #### I NFLUAB #### [facility] [address] [place] [address] Dr. Tom Dotson Albumin/Globulin [Mass ratio] 1.1 {ratio} Normal [facility] Comment on above: Performed By: #### I NFLUAB #### [facility] [address] [place] [address] Dr. Tom Dotson ALP [Catalytic activity/Vol] 62 U/L Normal 46-116 [facility] Comment on above: Performed By: #### I NFLUAB #### [facility] [address] [place] [address] Dr. Tom Dotson ALT [Catalytic activity/Vol] 25 U/L Normal 16-63 [facility] Comment on above: Performed By: #### I NFLUAB #### [facility] [address] [place] [address] Dr. Tom Dotson Anion gap [Moles/Vol] 9.8 mmol/L Normal [facility] Comment on above: Performed By: #### I NFLUAB #### [facility] [address] [place] [address] Dr. Tom Dotson AST [Catalytic activity/Vol] 15 U/L Normal 15-37 [facility] Comment on above: Performed By: #### I NFLUAB #### [facility] [address] [place] [address] Dr. Tom Dotson Bilirubin [Mass/Vol] 0.9 mg/dL Normal 0.2-1.0 [facility] Comment on above: Performed By: #### I NFLUAB #### [facility] [address] [place] [address] Dr. Tom Dotson Calcium [Mass/Vol] 8.8 mg/dL Normal 8.5-10.1 [facility] Comment on above: Performed By: #### I NFLUAB #### [facility] [address] [place] [address] Dr. Tom Dotson Chloride [Moles/Vol] 102 mmol/L Normal 98-107 [facility] Comment on above: Performed By: #### I NFLUAB #### [facility] [address] [place] [address] Dr. Tom Dotson CO2 [Moles/Vol] 30.5 mmol/L Normal 21.0-32.0 [facility] Comment on above: Performed By: #### I NFLUAB #### [facility] [address] [place] [address] Dr. Tom Dotson Creatinine [Mass/Vol] 0.95 mg/dL Normal 0.70-1.30 [facility] Comment on above: Performed By: #### I NFLUAB #### [facility] [address] [place] [address] Dr. Tom Dotson EGFR-AF SRI LANKAN >60 Normal >=[address] [facility] Comment on above: Performed By: #### I NFLUAB #### [facility] [address] [place] [address] Dr. Tom Dotson EGFR-NON AF SRI LANKAN >60 Normal >=60 [facility] Comment on above: Performed By: #### I NFLUAB #### [facility] [address] [place] [address] Dr. Tom Dotson Globulin (S) [Mass/Vol] 3.4 g/dL Normal [facility] Comment on above: Performed By: #### I NFLUAB #### [facility] [address] [place] [address] Dr. Tom Dotson Glucose [Mass/Vol] 85 mg/dL Normal 74-106 [facility] Comment on above: Performed By: #### I NFLUAB #### [facility] [address] [address] [address] Tom Dotson Potassium [Moles/Vol] 4.3 mmol/L Normal 3.5-5.1 [facility] Comment on above: Performed By: #### I NFLUAB #### [facility] [address] [address] [address] Tom Dotson Protein [Mass/Vol] 7.2 g/dL Normal 6.4-8.2 [facility] Comment on above: Performed By: #### I NFLUAB #### [facility] [address] [address] [address] Tom Dotson Sodium [Moles/Vol] 138 mmol/L Normal 136-145 [facility] Comment on above: Performed By: #### I NFLUAB #### [facility] [address] [address] [address] Tom Dotson Urea nitrogen [Mass/Vol] 14.0 mg/dL Normal 7.0-18.0 [facility] Comment on above: Performed By: #### I NFLUAB #### [facility] [address] [address] [address] Tom Dotson Urea nitrogen/Creatinine [Mass ratio] 14.7 mg/mg Normal [facility] Comment on above: Performed By: #### I NFLUAB #### [facility] [address] [address] [address] Tom Dotson TSHon 03-06-2022 TSH 1.010 uIU/mL Normal 0.358-3.740 [facility] Comment on above: Performed By: #### I NFLUAB #### [facility] [address] [address] [address] Tom Dotson Hepatic Panelon 09-02-2019 Albumin [Mass/Vol] 3.2 g/dL Normal 3.2-5.5 [facility] Comment on above: Performed By: #### H EPATIC, LIPID, TSH3 wRFLX, [id number] #### [facility] [address] Albumin/Globulin [Mass ratio] 1.1 {ratio} Normal [facility] Comment on above: Performed By: #### H EPATIC, LIPID, TSH3 wRFLX, [id number] #### [address] ALP [Catalytic activity/Vol] 38 U/L Normal 32-92 [facility] Comment on above: Performed By: #### H EPATIC, LIPID, TSH3 wRFLX, [id number] #### [address] ALT [Catalytic activity/Vol] 14 U/L Normal 10-60 [facility] Comment on above: Performed By: #### H EPATIC, LIPID, TSH3 wRFLX, [id number] #### [address] AST [Catalytic activity/Vol] 13 U/L Normal 10-42 [facility] Comment on above: Performed By: #### H EPATIC, LIPID, TSH3 wRFLX, [id number] #### [address] Bilirubin [Mass/Vol] 0.9 mg/dL Normal 0.3-1.2 [facility] Comment on above: Performed By: #### H EPATIC, LIPID, TSH3 wRFLX, [id number] #### [facility] [address] [place] [address] Bilirubin,Indirect 0.8 mg/dL Normal [facility] Comment on above: Performed By: #### H EPATIC, LIPID, TSH3 wRFLX, [id number] #### [facility] [address] [place] [address] Bilirubin.direct [Mass/Vol] 0.1 mg/dL Normal 0.0-0.4 [facility] Comment on above: Performed By: #### H EPATIC, LIPID, TSH3 wRFLX, [id number] #### [address] Globulin (S) [Mass/Vol] 2.9 g/dL Normal [facility] Comment on above: Performed By: #### H EPATIC, LIPID, TSH3 wRFLX, [id number] #### [facility] [address] Protein [Mass/Vol] 6.1 g/dL Normal 6.1-7.9 [facility] Comment on above: Performed By: #### H EPATIC, LIPID, TSH3 wRFLX, [id number] #### [facility] [address] Lipid Panelon 09-02-2019 Cholesterol [Mass/Vol] 158 mg/dL Normal 140-200 [facility] Comment on above: Result Comment: Chol less than 200 mg/dl low risk Chol 201-239 mg/dl borderline risk Chol 240 mg/dl and greater high risk Performed By: #### H EPATIC, LIPID, TSH3 wRFLX, [id number] #### [facility] [address] Cholesterol in HDL [Mass/Vol] 61 mg/dL Normal 29-71 [facility] Comment on above: Result Comment: HDL CHOL ATP-III CLASSIFICATION Cardiovascular Risk HDL > or equal to 60 mg/dL LOW HDL < 40 mg/dL HIGH Performed By: #### H EPATIC, LIPID, TSH3 wRFLX, [id number] #### [facility] [address] Cholesterol.total/Ch olesterol in HDL [Mass ratio] 2.6 {ratio} Normal <5.0 [facility] Comment on above: Performed By: #### H EPATIC, LIPID, TSH3 wRFLX, [id number] #### [facility] [address] [place] [address] [place] LDL Cholesterol,Calculat ed 84 mg/dL Normal 0-100 [facility] Comment on above: Result Comment: LDL ATP III CLASSIFICATION LDL less than 100 mg/dL Optimal LDL 100-129 mg/dL Near or above optimal LDL 130-159 mg/dL Borderline high LDL 160-189 mg/dL High LDL greater than 189 mg/dL Very high Performed By: #### H EPATIC, LIPID, TSH3 wRFLX, [id number] #### [facility] [address] Triglyceride w/Reflex 63 mg/dL Normal 35-149 [facility] Comment on above: Result Comment: TRIG ATP III CLASSIFICATION TRIG less than 150 mg/dL Normal TRIG 150-199 mg/dL Borderline high TRIG 200-500 mg/dL High TRIG greater than 500 mg/dL Very high Standard traceable to the Center for Disease Conrtrol and Prevention (CDC) test method. Performed By: #### H EPATIC, LIPID, TSH3 wRFLX, [id number] #### [facility] [address] VLDL CHOLESTEROL 12 mg/dL Normal [facility] Comment on above: Performed By: #### H EPATIC, LIPID, TSH3 wRFLX, [id number] #### [facility] [address] Thyroid Stim Hormone w/Rflxo n 09-02-2019 Thyroid Stim Hormone w/Rflx 1.92 u[iU]/mL Normal 0.45-5.33 [facility] Comment on above: Performed By: #### H EPATIC, LIPID, TSH3 wRFLX, [id number] #### [facility] [address] Vitamin D 25 Hydroxy Totalon 09-02-2019 Vitamin D 25 Hydroxy Total 11.9 ng/mL Low 30-100 [facility] Comment on above: Result Comment: DAE MIN D STATUS 25(OH)VITAMIN D RANGE (ng/mL) Deficient <20 Insufficient 20 to <30 Sufficient 30 to 100 Reference: Darrion MF,Zane NC, Mason-Jelani AVELAR, et al. Evaluation,treatment, and prevention of vitamin D deficiency; an Endocrine Society clinical practice guideline. JCEM. 2010; 96(7):1911-30. PERFORMED BY: [place] [address] PATHOLOGIST [employer] SALES EXECUTIVE MIGUELINA FLOOD M.D. Performed By: #### H EPATIC, LIPID, TSH3 wRFLX, [id number] #### [facility] [address] Vital Signs Date Time Vital Sign Value Performing Clinician Madan mayer 10-30-2023 10:00-0500 Body height 185.4 cm Azul Aichholz [employer] Work Phone: [facility] 10-30-2023 10:00-0500 Body mass index (BMI) [Ratio] 26.84 kg/m2 Azul Aichholz [employer] Work Phone: [facility] 10-30-2023 10:00-0500 Body temperature 97.11 [degF] Azul Aichholz [employer] Work Phone: [facility] 10-30-2023 10:00-0500 Body weight 92.26 kg Azul Aichholz [employer] Work Phone: [facility] 10-30-2023 10:00-0500 Diastolic blood pressure 78 mm[Hg] Azul Aichholz [employer] Work Phone: [facility] 10-30-2023 10:00-0500 Heart rate 83 /min Azul Aichholz [employer] Work Phone: [facility] 10-30-2023 10:00-0500 Respiratory rate 16 /min Azul Aichholz [employer] Work Phone: [facility] 10-30-2023 10:00-0500 SaO2% (BldA) [Mass fraction] 94 % Azul Aichholz [employer] Work Phone: [facility] 10-30-2023 10:00-0500 Systolic blood pressure 138 mm[Hg] Azul Aichholz [employer] Work Phone: [facility] Encounters Encounter Date Encounter Type Care Provider Facility Start: 05-19-2024 End: 05-19-2024 ambulatory AZUL AICHHOLZ Not Available Start: 02-18-2024 End: 02-18-2024 ambulatory AZUL AICHHOLZ Not Available Start: 12-15-2023 End: 12-15-2023 ambulatory AZUL AICHHOLZ Not Available Start: 11-13-2023 End: 11-13-2023 ambulatory 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 Not Available Start: 10-30-2023 End: 10-30-2023 Office outpatient visit 15 minutes Azul Quezada [employer] Work Phone: [facility] Comment on above: Influenza (Primary D x); Marijuana abuse; Smoker; BMI 26.0-26.9,adult; Centrilobular emphysema ([facility]) Start: 10-30-2023 End: 10-30-2023 ambulatory 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 Not Available Start: 10-21-2023 Clinisync Result Encounter Generic External Data Provider [facility] Unsolicited Start: 10-21-2023 Clinisync Result Encounter Generic External Data Provider [facility] Unsolicited Start: 09-25-2022 End: 09-25-2022 ambulatory ZANE QUEZADA Facility:[facility]1 Start: 04-16-2022 End: 04-17-2022 ambulatory [facility] Facility:[facility] Start: 04-10-2022 End: 04-11-2022 ambulatory [facility] Facility:[facility] Start: 03-06-2022 End: 03-07-2022 ambulatory [employer] 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 Facility:[facility] Procedures Date Procedure Procedure Detail Performing Clinician Start: 10-21-2023 BLOOD CULTURE 2 Generic External Data Provider Start: 10-21-2023 BLOOD CULTURE 1 Generic External Data Provider Start: 03-06-2022 PSA screening [facility] Comment on above: Performed By: #### P [facility] #### [facility] [address] [place] [address] Dr. Tom Dotson Plan of Treatment Date Care Activity Detail Author Start: 08-04-2024 Screening for malign ant neoplasm of colon [facility] Start: 03-21-2024 Influenza vaccination Influenza Vacc ine (#1) [facility] Comment on above: Postponed from 05/23 (Patient Refused) Start: 11-13-2023 End: 11-13-2023 Patient encounter procedure 11/13/2023 9:40 AM EST Office Visit [facility] [address] [place] [address] Azul Quezada, ORACIO [address] [place] [address] [facility] Start: 10-30-2023 End: 10-30-2023 Patient encounter procedure 10/30/2023 10:00 AM EST Office Visit [facility] [address] [place] [address] Azul Quezada NP [address] [place] [id number] [facility] Start: 2023 Influenza vaccination Influenza Vacc ine (#1) [facility] Start: 1960 Medicare Annual Well ness (AWV) Medicare Annual Wellness (AWV) [facility] Start: 1960 Screening for malign ant neoplasm of colon [facility] BLOOD CULTURE 1 BLOOD CULTURE 1 Lab Routine 10/21/2023 12:27 PM EST [facility] BLOOD CULTURE 2 BLOOD CULTURE 2 Lab Routine 10/21/2023 12:30 PM EST [facility] Immunizations Immunization Date Immunization Notes Care Provider Fa [facility] 2020 influenza, live, intranasal, quadrivalent Azul Quezada [employer] Work Phone: [facility] 2020 influenza virus vacc ine, unspecified formulation Generic Provider [facility] 08-04-2019 influenza, high dose seasonal, preservative-free Azul Quezada [employer] Work Phone: [facility] Payers Date Payer Category Payer Medicare [id number] 1993 Medicare [id number] 1960 Unknown [id number] 2.16.84 [id number] 1960 Unknown [id number] 2.16.84 [id number] 1960 Unknown [id number] 2.16.84 [id number] 1960 Unknown [id number] 2.16.84 [id number] 1960 Unknown [id number] 2.16.84 [id number] 1960 Unknown [id number] 2.16.84 [id number] 1960 Unknown [id number] 2.16.84 [id number] 1960 Unknown [id number] 2.16.84 [id number] 1960 Unknown [id number] 2.16.84 [id number] 1959 Medicaid [id number] 1959 Unknown [id number] Social History Date Type Detail Facility Tobacco smoking stat [facility] Tobacco smoking consumption unknown [facility] Start: 1960 Sex Assigned At Not on file [facility] Start: 10-30-2023 Gender identity Not on file [facility] Start: 10-30-2023 Tobacco smoking stat [facility] Ex-smoker [facility] End: 03-22-2019 [...] complaint on file. HPI: Recent hospitalization at [facility] for 3 days d/t influenza. Does [...] artery stenosis Calcified lymph nodes Centrilobular emphysema ([facility]) COVID-19 07/2019 CVA (cerebral vascular accident) ([facility]) Degenerative cervical disc Depression with anxiety Insomnia Marijuana abuse 10/30/2023 Multiple pulmonary nodules Neck mass 2013 Osteoarthritis Papule of skin Pigmented skin lesion of uncertain nature Rheumatic fever Stroke ([facility]) 07/2020 Testicle lump Tourette's ([facility]) Vertebral artery occlusion Vocal cord polyp Past [...] section and content) DATE CREATED AUTHOR 09/04/[address] [facility] DATE CREATED AUTHOR AUTHOR'S ORGANIZ ATION 09/30/2022 [facility] DATE CREATED AUTHOR AUTHOR'S ORGANIZ ATION 05/21/2024 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 [facility]. provides no warranty or guarantee of the accuracy or completeness of information in this document.
[2024-05-30] MEDS: FAMOTIDINE/PF 20 MG/2 ML VIAL IV (11:48)
[2024-05-30] MEDS: METHYLPREDNISOLONE SOD SUCC PF 125 MG/2 ML VIAL IVP (11:48)
[2024-05-30] MEDS: IPRATROPIUM/ALBUTEROL SULFATE 3 ML AMPUL.NEB IH (11:53)
--- NOTE | 2024-05-30 12:07 | ED_ITS ---
HPI - Allergic Reaction General Chief complaint: Allergic Reaction Stated complaint: bee sting Time Seen by Provider: 05/30/24 11:42 Source: patient Mode of arrival: walk-in Limitations: no limitations History of Present Illness HPI narrative: The patient is coming to the ER after he was stung by a bee just within the last hour before arrival, patient right now presenting with no acute symptoms he mentioned that he was at work and they told him he need to go to the ER because of his history of possible allergy, the patient does not take an EpiPen he denies any symptoms of difficulty breathing he mentioned that he is always wheezing because of his COPD and nothing right now is more than normal usual The patient also mentioned that he just want to go back to work because they are short staffed The patient denies any rash he had this area of left forearm that he was stung in but there was no itching Related Data Home Medications ?Medication ?Instructions ?Recorded ?Confirmed albuterol sulfate 90 mcg/actuation 2 inh inhalation Q4H PRN shortness 09/21/23 11/30/23 aerosol inhaler of breath or wheezing aspirin 81 mg tablet,delayed 81 mg PO DAILY 09/21/23 11/30/23 release atorvastatin 40 mg tablet 40 mg PO DAILY 09/21/23 11/30/23 budesonide-formoterol HFA 160 2 inh inhalation Q12H 09/21/23 11/30/23 mcg-4.5 mcg/actuation aerosol inhaler (Symbicort) fluoxetine 10 mg capsule 10 mg PO DAILY 09/21/23 11/30/23 tiotropium bromide 2.5 2 puff inhalation Q24H 09/21/23 11/30/23 mcg/actuation mist for inhalation (Spiriva Respimat) trazodone 50 mg tablet 50 mg PO BEDTIME 09/21/23 11/30/23 Previous Rx's ?Medication ?Instructions ?Recorded ipratropium 0.5 mg-albuterol 3 mg 3 ml inhalation Q6H PRN shortness 12/01/23 (2.5 mg base)/3 mL nebulization of breath or wheezing #90 mL soln hydroxyzine HCl 25 mg tablet 25 - 50 mg (1 - 2 x 25 mg) PO Q8H 12/08/23 PRN anxiety #30 tabs levofloxacin 750 mg tablet 750 mg PO DAILY 7 days #7 tabs 12/08/23 diphenhydramine HCl 25 mg capsule 25 mg PO TID PRN allergic reaction 05/30/24 (Benadryl) #10 caps epinephrine 0.3 mg/0.3 mL 0.3 mg (0.3 mL) IM ONCE PRN 05/30/24 injection, auto-injector (EpiPen) allergic reaction #2 ea famotidine 20 mg tablet (Pepcid) 20 mg PO BID #10 tabs 05/30/24 prednisone 20 mg tablet 40 mg (2 x 20 mg) PO DAILY 5 days 05/30/24 #10 tabs Allergies Allergy/AdvReac Type Severity Reaction Status Date / Time No Known Drug Allergies Allergy Verified 05/30/24 11:29 Review of Systems ROS Status of ROS 10 or more systems reviewed and unremark able except as noted in history and below [facility] Medical History (Updated 05/30/24 @ 12:23 by Delmis Urena MD) Anxiety ?F41.9 - Anxiety disorder, unspecified (ICD-10) Cerebrovascular disease ?I67.9 - Cerebrovascular disease, unspecified (ICD-10) COPD (chronic obstructive pulmonary disease) ?J44.9 - Chronic obstructive pulmonary disease, unspecified (ICD-10) Depression, unspecified ?F32.A - Depression, unspecified (ICD-10) Dyslipidemia ?E78.5 - Hyperlipidemia, unspecified (ICD-10) 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 Smoking status: Current every day smoker Second hand tobacco smoke exposure: No Non-prescribed substance use: cannabis (any form) Known occupational exposures/hazards: No Highest level of school completed/degree received: high school graduate Are you now , , , , never or living with a partner: living with partner In a typical week, how many times do you talk on the telephone with family, friends, or neighbors: 3 or more times per week How often do you get together with friends or relatives: 3 or more times per week How often do you attend samaritan or restoration services: 1-3 times per year Do you belong to any clubs or organizations such as samaritan groups unions, [employer] or athletic groups, or school groups: no Total score: 2 Score interpretation: A score of greater than or equal to 2 indicates the lowest level of social isolation. Little interest or pleasure in doing things: not at all Feeling down, depressed, or hopeless: not at all Feel stressed/tense/nervous/anxious/difficulty sleeping: not at all Due to disability, difficulty making decisions: No Do you think of yourself as: straight/heterosexual Gender Identity: male Exam Narrative Exam Narrative: Nurses notes and vital signs reviewed and patient is not hypoxic. Left forearm: Skin examination showed that the patient have 1 area of bee sting with maculopapular lesion General: Well-appearing and in no apparent distress. Skin: Warm, dry, no pallor noted. No rash. Head: Normocephalic, atraumatic. Neck: Supple, non-tender. Eye: Pupils are equal, round and EOMI. No scleral icterus. Ears, Nose, Mouth, and Throat: TM are clear, no nasal mucosal hypertrophy. Oral mucosa is moist, no posterior oropharynx erythema, uvula is mid-line Cardiovascular: Regular Rate and Rhythm without murmur, gallop or rub. Respiratory: No accessory muscle use or respiratory distress. Lungs mild expiratory lung wheezes Chest Wall: no tenderness Back: No midline thoracic or lumbar vertebral tenderness. No CVA tenderness Musculoskeletal: normal ROM, no calf or popliteal tenderness, no lower extremity edema/swelling GI: Abdomen is soft, non-distended. Normal bowel sounds. No masses appreciated. No tenderness to palpation. No rebound, guarding, or rigidity noted. Neurological: A&O x4. No cranial nerve dysfunction observed. No truncal ataxia. Moves all extremities. Sensation intact. Psychiatric: Cooperative and interactive. Normal mood and affect. Constitutional Vital Signs, click to edit/add: Last Vital Signs Temp 98.6 F 05/30/24 11:29 Pulse 83 05/30/24 11:53 Resp 22 H 05/30/24 11:29 BP 114/92 H 05/30/24 11:29 Pulse Ox 98 05/30/24 11:53 O2 Del Method Room Air 05/30/24 11:53 Course Vital Signs Vital signs: Vital Signs Temperature 98.6 F 05/30/24 11:29 Pulse Rate 94 H 05/30/24 11:29 Respiratory Rate 22 H 05/30/24 11:29 Blood Pressure 114/92 H 05/30/24 11:29 Pulse Oximetry 95 05/30/24 11:29 Oxygen Delivery Method Room Air 05/30/24 11:29 Temperature 98.6 F 05/30/24 11:29 Pulse Rate 83 05/30/24 11:53 Respiratory Rate 22 H 05/30/24 11:29 Blood Pressure 114/92 H 05/30/24 11:29 Pulse Oximetry 98 05/30/24 11:53 Oxygen Delivery Method Room Air 05/30/24 11:53 MDM - Allergic Reaction MDM Narrative Medical decision making narrative: The patient not presenting with any acute alarming symptoms of allergy he did not even want the Benadryl because he wants to drive back to work after he is down from here He had no itching there was no tachycardia no hypotension the patient did had wheezing bilaterally but he is a smoker and he chronically wheezing The patient was treated in the ER with Solu-Medrol as well as Pepcid after which she was feeling much better his symptoms were very minimal and mostly secondary only to COPD more than allergy The patient was discharged home with Benadryl Pepcid and prednisone as supportive care for possible allergic reaction he also had his EpiPen refilled because he mentioned that he had a reaction before he had a bee sting and it caused him face swelling The patient was instructed not to over take his Benadryl with his hydroxyzine The patient is to follow up with primary care physician in next 2-3 days or to return to the emergency department should any of the signs or symptoms worsen or new symptoms develop. The patient agrees with the following Diagnosis and Treatment plan and the patient will be discharged home. Discharge Plan Discharge Chief Complaint: Allergic Reaction Clinical Impression: Allergic reaction Qualifiers: Encounter type: initial encounter Qualified Code(s): T78.40XA - Allergy, unspecified, initial encounter Patient Disposition: Home, Self-Care Time of Disposition Decision: 12:20 Condition: Good Prescriptions / Home Meds: New prednisone 20 mg tablet 40 mg PO DAILY 5 Days Qty: 10 0RF famotidine [Pepcid] 20 mg tablet 20 mg PO BID Qty: 10 0RF diphenhydramine HCl [Benadryl] 25 mg capsule 25 mg PO TID PRN (Reason: allergic reaction) Qty: 10 0RF epinephrine [EpiPen] 0.3 mg/0.3 mL auto-injector 0.3 mg IM ONCE PRN (Reason: allergic reaction) Qty: 2 0RF Rx Instructions: for 2 doses Discontinued prednisone 10 mg tablet See Rx Instructions .ROUTE .COMPLEX 35 Days Qty: 105 0RF Rx Instructions: 5 tabs daily x 7 days, then 4 tabs daily x 7 days, then 3 tabs daily x 7 days, then 2 tabs daily x 7 days, then 1 tab daily x 7 days, then STOP No Action atorvastatin 40 mg tablet 40 mg PO DAILY trazodone 50 mg tablet 50 mg PO BEDTIME aspirin 81 mg tablet,delayed release (DR/EC) 81 mg PO DAILY fluoxetine 10 mg capsule 10 mg PO DAILY albuterol sulfate 90 mcg/actuation HFA aerosol inhaler 2 inh INHALATION Q4H PRN (Reason: shortness of breath or wheezing) budesonide-formoterol [Symbicort] 160-4.5 mcg/actuation HFA aerosol inhaler 2 inh INHALATION Q12H Spiriva Respimat 2.5 mcg/actuation mist 2 puff INHALATION Q24H levofloxacin 750 mg tablet 750 mg PO DAILY 7 Days Qty: 7 0RF hydroxyzine HCl 25 mg tablet 25 - 50 mg PO Q8H PRN (Reason: anxiety) Qty: 30 0RF ipratropium-albuterol 0.5 mg-3 mg(2.5 mg base)/3 mL solution for nebulization 3 ml inhalation Q6H PRN (Reason: shortness of breath or wheezing) Qty: 90 0RF Print Language: Kyrgyz Instructions: General Allergic Reaction (ED) Additional Instructions: Do not take hydroxyzine and Benadryl together Referrals: Azul Quezada NP [Primary Care Provider] - 1 week
== END 2024-05-30 12:32 | disposition home or self-care (01) ==
PROVIDERS: Emergency Provider Emergency Medicine; PCP Nurse Practitioner
DX: T78.40XA Allergy, unspecified, initial encounter (principal); F17.200 Nicotine dependence, unspecified, uncomplicated; J44.9 Chronic obstructive pulmonary disease, unspecified
CPT/HCPCS: 94640; 96374; 96375; 99284; J2919

== ENCOUNTER 2024-05-31 13:40 | Outpatient (OUT) | payer MEDICARE, SELFPAY ==
[2024-05-31 14:07] LABS: Basophils Absolute Auto 0.1 10^3/uL (0.0-0.1); Basophils Percent Auto 0.5 % (0.2-2.0); Eosinophils Percent Auto 0.1 % (0.9-7.0); Hemoglobin 13.6 g/dL (14.0-18.0); Immature Granulocytes Abs Auto 0.04 10^3/uL (0.00-0.03); Immature Granulocytes Pct Auto 0.3 % (0.0-0.5); Lymphocytes Absolute Auto 1.9 10^3/uL (1.2-3.8); Lymphocytes Percent Auto 16.3 % (20.5-60.0); Mean Corpuscular HGB Conc 31.6 g/dL (29.9-35.2); Mean Corpuscular Hemoglobin 29.3 pg (25.9-34.0); Mean Corpuscular Volume 92.7 fL (80.0-94.0); Mean Platelet Volume 9.6 fL (9.5-13.5); Monocytes Percent Auto 8.8 % (1.7-12.0); Neutrophils Absolute Auto 8.7 10^3/uL (1.4-6.5); Platelet Count 338 10^3/uL (150-450); Red Blood Count 4.64 10^6/uL (4.70-6.10); Red Cell Distribution Width 13.1 % (11.0-15.0); White Blood Count 11.7 10^3/uL (4.0-11.0)
[2024-05-31 14:07] LABS: Bilirubin Urine NEGATIVE (NEGATIVE); Blood Urine NEGATIVE (NEGATIVE); Clarity Urine CLEAR (CLEAR); Color Urine LT. YELLOW (YELLOW); Glucose Urine UA NEGATIVE (NEGATIVE); Ketones Urine NEGATIVE (NEGATIVE); Leukocyte Esterase Urine SMALL (NEGATIVE); Nitrite Urine NEGATIVE (NEGATIVE); Protein Urine NEGATIVE (NEG/TRACE); Specific Gravity Urine 1.015 (1.005-1.025); Urine Microscopic Indicated YES; Urobilinogen Urine 0.2 EU/dL (0.2-1.0)
[2024-05-31 14:18] LABS: Bacteria Urine NONE SEEN #/HPF (NONE SEEN); Mucus Urine NONE SEEN (NONE SEEN); RBC Urine NONE SEEN #/HPF (0-2); Squamous Epithelial Cell Urine FEW #/LPF (NONE/RARE); WBC Urine 0-2 #/HPF (NONE SEEN)
[2024-05-31 14:28] LABS: Alanine Aminotransferase 23 U/L (16-63); Albumin Level 3.7 g/dL (3.4-5.0); Alkaline Phosphatase 64 U/L (46-116); Anion Gap 7.3; Aspartate Amino Transferase 13 U/L (15-37); Bilirubin Total 0.8 mg/dL (0.2-1.0); Calcium 9.1 mg/dL (8.5-10.1); Carbon Dioxide 33.1 mmol/L (21.0-32.0); Chloride 102 mmol/L (98-107); Cholesterol 153 mg/dL (<=200); Estimated GFR (African America >60 (>=60); Estimated GFR (Non-African Ame >60 (>=60); Globulin 3.6 g/dL; Glucose 93 mg/dL (74-106); HDL Cholesterol 78 mg/dL (40-60); Potassium 3.4 mmol/L (3.5-5.1); Sodium 139 mmol/L (136-145); Total Protein 7.3 g/dL (6.4-8.2); Triglycerides 46 mg/dL (<=150); VLDL CHOLESTEROL 9.2 mg/dL
[2024-05-31 14:38] LABS: Prostate Specific Antigen Scrn 1.91 ng/mL (<=4.00)
== END 2024-05-31 13:41 | disposition home or self-care (01) ==
LOC: LAB 13:42
PROVIDERS: PCP Nurse Practitioner; Visit Provider Nurse Practitioner
DX: Z12.5 Encounter for screening for malignant neoplasm of prostate (principal); F17.200 Nicotine dependence, unspecified, uncomplicated; F41.8 Other specified anxiety disorders; E78.2 Mixed hyperlipidemia
CPT/HCPCS: 36415; 80053; 80061; 81001; 85025; G0103

== ENCOUNTER 2024-06-08 14:52 | Outpatient (OUT) | payer MEDICARE, SELFPAY ==
--- OUTSIDE RECORDS SUMMARY | 2024-06-08 15:19 | XMS_ITS | CCD ---
Author Organization [facility] Care Team Providers Care Quality Measurement Specialist Name Role Phone SAMSA, JAMESON Admitting Unavailable SAMSA, JAMESON Attending Unavailable AICHHOLZ, SLATER APPRENTICE AZUL Referring Unavailable AICHHOLZ, SLATER APPRENTICE AZUL Primary Care Unavailable SAMSA, JAMESON Consulting Unavailable AICHHOLZ, SLATER APPRENTICE AZUL Admitting Unavailable AICHHOLZ, SLATER APPRENTICE AZUL Attending Unavailable AICHHOLZ, SLATER APPRENTICE AZUL Primary Care Unavailable AICHHOLZ, SLATER APPRENTICE AZUL Consulting Unavailable SAMSA, JAMESON Admitting Unavailable SAMSA, JAMESON Attending Unavailable AICHHOLZ, SLATER APPRENTICE AZUL Primary Care Unavailable WHITNEY, DR YARIEL Figueroa Consulting Unavailable SAMSA, JAMESON Consulting Unavailable AICHHOLZ, SLATER APPRENTICE AZUL Primary Care Unavailable DAREN, DR MAURO Admitting Unavailable DAREN, DR MAURO Attending Unavailable WHITNEY, DR YARIEL Figueroa Consulting Unavailable DAREN, DR MAURO Consulting Unavailable Yudith YANG, Kiko Primary Care Provider [employer] RECLAMATION ENGINEER, Azul Unavailable Kiko Zurita MD Primary Care Provider AICHHOLZ, AZUL Attending Unavailable AICHHOLZ, AZUL Attending Unavailable AICHHOLZ, AZUL Attending Unavailable AICHHOLZ, AZUL Attending Unavailable AICHHOLZ, AZUL Attending Unavailable IBETH TORRES Attending Unavailable Allergies Allergy Classification Reported Allergen(s) [...] B (Bld) [Mass/Vol] 42.0 pg/mL Normal <=900.0 [facility] Comment on above: Performed By: #### I NFLUAB #### [facility] [address] [place] [address] Dr. Tom Dotson CBC AUTO DIFFon 09-25-2022 BASO # 0.1 103/ul Normal 0.0-0.1 [facility] Comment on above: Performed By: #### C BC #### [facility] [address] [place] [address] Dr. Tom Dotson Basophils/100 WBC (Bld) 0.8 % Normal 0.2-2.0 [facility] Comment on above: Performed By: #### C BC #### [facility] [address] [place] [address] Dr. Tom Dotson EO # 0.0 103/ul Normal 0.0-0.7 [facility] Comment on above: Performed By: #### C BC #### [facility] [address] [place] [address] Dr. Tom Dotson Eosinophils/100 WBC (Bld) 0.0 % Critically low 0.9-7.0 [facility] Comment on above: Performed By: #### C BC #### [facility] [address] [place] [address] Dr. Tom Dotson Erythrocyte distribution width (RBC) [Ratio] 12.4 % Normal 11.0-15.0 [facility] Comment on above: Performed By: #### C BC #### [facility] [address] [place] [address] Dr. Tom Dotson Hematocrit (Bld) [Volume fraction] 43.6 % Normal 42.0-54.0 [facility] Comment on above: Performed By: #### C BC #### [facility] [address] [place] [address] Dr. Tom Dotson Hemoglobin (Bld) [Mass/Vol] 14.3 g/dL Normal 14.0-18.0 [facility] Comment on above: Performed By: #### C BC #### [facility] [address] [place] [address] Dr. Tom Dotson IG # 0.02 10e3/ul Normal 0.00-0.03 [facility] Comment on above: Performed By: #### C BC #### [facility] [address] [place] [address] Dr. Tom Dotson IG % 0.3 % Normal 0.0-0.5 [facility] Comment on above: Performed By: #### C BC #### [facility] [address] [place] [address] Dr. Tom Dotson LYMPH # 1.4 103/ul Normal 1.2-3.8 [facility] Comment on above: Performed By: #### C BC #### [facility] [address] [place] [address] Dr. Tom Dotson Lymphocytes/100 WBC (Bld) 17.3 % Critically low 20.5-60.0 [facility] Comment on above: Performed By: #### C BC #### [facility] [address] [place] [address] Dr. Tom Dotson MANUAL DIFF REQ NO Normal [facility] Comment on above: Performed By: #### C BC #### [facility] [address] [place] [address] Dr. Tom Dotson MCH (RBC) [Entitic mass] 29.8 pg Normal 25.9-34.0 [facility] Comment on above: Performed By: #### C BC #### [facility] [address] [place] [address] Dr. Tom Dotson MCHC (RBC) [Mass/Vol] 32.8 g/dL Normal 29.9-35.2 [facility] Comment on above: Performed By: #### C BC #### [facility] [address] [place] [address] Dr. Tom Dotson MCV (RBC) [Entitic vol] 90.8 fL Normal 80.0-94.0 [facility] Comment on above: Performed By: #### C BC #### [facility] [address] [place] [address] Dr. Tom Dotson MONO # 0.7 103/ul Normal 0.3-0.8 [facility] Comment on above: Performed By: #### C BC #### [facility] [address] [place] [address] Dr. Tom Dotson Monocytes/100 WBC (Bld) 9.4 % Normal 1.7-12.0 [facility] Comment on above: Performed By: #### C BC #### [facility] [address] [place] [address] Dr. Tom Dotson NEUT # 5.7 103/ul Normal 1.4-6.5 [facility] Comment on above: Performed By: #### C BC #### [facility] [address] [place] [address] Dr. Tom Dotson Neutrophils/100 WBC (Bld) 72.2 % Normal 43.0-75.0 [facility] Comment on above: Performed By: #### C BC #### [facility] [address] [place] [address] Dr. Tom Dotson Platelet mean volume (Bld) [Entitic vol] 9.6 fL Normal 9.5-13.5 [facility] Comment on above: Performed By: #### C BC #### [facility] [address] [place] [address] Dr. Tom Dotson PLT 331 103/ul Normal 150-450 [facility] Comment on above: Performed By: #### C BC #### [facility] [address] [place] [address] Dr. Tom Dotson RBC 4.80 106/ul Normal 4.70-6.10 [facility] Comment on above: Performed By: #### C BC #### [facility] [address] [place] [address] Dr. Tom Dotson WBC 7.8 103/ul Normal 4.0-11.0 [facility] Comment on above: Performed By: #### C BC #### [facility] [address] [place] [address] Dr. Tom Dotson CULTURE BLOODon 09-25-2022 Microscopic examination of blood, culture Culture Observations: NO GROWTH AT 5 DAYS. [facility] Comment on above: Performed By: #### I NFLUAB #### [facility] [address] [place] [address] Dr. Tom Dotson Microscopic examination of blood, culture Culture Observations: NO GROWTH AT 5 DAYS. Normal [facility] Comment on above: Performed By: #### I NFLUAB #### [facility] [address] [place] [address] Dr. Tom Dotson [facility]on SARS-CoV-2 (COVID-19) RNA OLGA+probe Ql (Unsp spec) Not detected Normal NOT DETECTED [facility] Comment on above: Result Comment: When diagnostic [...] for this test is supported by the Certified Driver Examiner of Health and Human Service's declaration that [...] used). Performed By: #### C VDTBH #### [facility] [address] [place] [address] Dr. Tom Dotson INFLUENZA A AND B AGon 09-25 INFLUANEGH SEE BELOW Normal [facility] Comment on above: Result Comment: Nega tive for Flu A protein angiten. Infection due to Flu A cannot be ruled out. Flu A angiten in the sample may be below the detection limit of the test. Performed By: #### I NFLUAB #### [facility] [address] [place] [address] Dr. Tom Dotson INFLUBNEG SEE BELOW Normal [facility] Comment on above: Result Comment: Nega tive for Flu B protein antigen. Infection due to Flu B cannot be ruled out. Flu B antigen in the sample may be below the detection limit of the test. Performed By: #### I NFLUAB #### [facility] [address] [place] [address] Dr. Tom Dotson INFLUENZA A AG Negative Normal NEGATIVE SEE COMMENT [facility] Comment on above: Performed By: #### I NFLUAB #### [facility] [address] [place] [address] Dr. Tom Dotson INFLUENZA B AG Negative Normal NEGATIVE SEE COMMENT [facility] Comment on above: Performed By: #### I NFLUAB #### [facility] [address] [place] [address] Dr. Tom Dotson LACTATE/LACTIC ACIDon 2022 Lactate [Moles/Vol] 0.7 mmol/L Normal 0.4-1.9 [facility] Comment on above: Performed By: #### L ACT #### [facility] [address] [place] [address] Dr. Tom Dotson PROF CHEM 8 (BAS METB)on Anion gap [Moles/Vol] 9.3 mmol/L Normal [facility] Comment on above: Performed By: #### H STROPN, BMP, BNP #### [facility] [address] [place] [address] Dr. Tom Dotson Calcium [Mass/Vol] 8.8 mg/dL Normal 8.5-10.1 [facility] Comment on above: Performed By: #### H STROPN, BMP, BNP #### [facility] [address] [place] [address] Dr. Tom Dotson Chloride [Moles/Vol] 103 mmol/L Normal 98-107 [facility] Comment on above: Performed By: #### H STROPN, BMP, BNP #### [facility] [address] [place] [address] Dr. Tom Dotson CO2 [Moles/Vol] 31.1 mmol/L Normal 21.0-32.0 [facility] Comment on above: Performed By: #### H STROPN, BMP, BNP #### [facility] [address] [place] [address] Dr. Tom Dotson Creatinine [Mass/Vol] 0.77 mg/dL Normal 0.70-1.30 [facility] Comment on above: Performed By: #### H STROPN, BMP, BNP #### [facility] [address] [address] [address] Tom Dotson EGFR-AF ETHIOPIAN >60 Normal >=60 [facility] Comment on above: Performed By: #### H STROPN, BMP, BNP #### [facility] [address] [address] [address] Tom Dotson EGFR-NON AF ETHIOPIAN >60 Normal >=60 [facility] Comment on above: Performed By: #### H STROPN, BMP, BNP #### [facility] [address] [address] [address] Tom Dotson Glucose [Mass/Vol] 98 mg/dL Normal 74-106 [facility] Comment on above: Performed By: #### H STROPN, BMP, BNP #### [facility] [address] [address] [address] Tom Dotson Potassium [Moles/Vol] 4.4 mmol/L Normal 3.5-5.1 [facility] Comment on above: Performed By: #### H STROPN, BMP, BNP #### [facility] [address] [address] [address] Tom Dotson Sodium [Moles/Vol] 139 mmol/L Normal 136-145 [facility] Comment on above: Performed By: #### H STROPN, BMP, BNP #### [facility] [address] [address] [address] Tom Dotson Urea nitrogen [Mass/Vol] 13.0 mg/dL Normal 7.0-18.0 [facility] Comment on above: Performed By: #### H STROPN, BMP, BNP #### [facility] [address] [address] [address] Tom Dotson Urea nitrogen/Creatinine [Mass ratio] 16.9 mg/mg Normal [facility] Comment on above: Performed By: #### H STROPN, BMP, BNP #### [facility] [address] [place] [address] Dr. Tom Dotson TROPONIN, HIGH SENSITIVITYon 09-25-2022 HSTROP 7.4 pg/mL Normal 4.0-76.1 [facility] Comment on above: Result Comment: CUT- OFF POINTS HAVE BEEN ESTABLISHED BASED ON THE FOURTH UNIVERSAL DEFINITIONS OF MYOCARDIAL INFARCTION. THE UPPER REFERENCE LIMIT (URL) OF TROPONIN, DEFINED THE 99TH PERCENTILE OF cTnI DISTRIBUTION IN A REFERENCE POPULATION, HAS BEEN CONFIRMED THE DECISION THRESHOLD FOR [place] DIAGNOSIS. Performed By: #### I NFLUAB #### [facility] [address] [address] [address] Tom Dotson XR CHEST 1 Von [...] YARIEL OLSON Date: 2022-09-25 10:55 Normal [facility] ASPERGILLUS AB, QUANTITATIVE DIDon 04-20-2022 Aspergillus flavus Negative Normal Neg:<1:1 [facility] Comment on above: Performed By: #### A SPDID #### [facility] [address] [place] [address] Dr. Tom Dotson Aspergillus fumigatus Negative Normal Neg:<1:1 [facility] Comment on above: Performed By: #### A SPDID #### [facility] [address] [place] [address] Dr. Tom Dotson Aspergillus niger Negative Normal Neg:<1:1 [facility] Comment on above: Performed By: #### A SPDID #### [facility] [address] [address] [address] Tom Dotson ANTI NEUTROPHIL CYTOPLASMIC AB (ANCA) PRon 04-19-2022 Anti-MPO Antibodies <0.2 Normal 0.0-0.9 [facility] Comment on above: Result Comment: Perf ormed at: BN Performed By: #### C BC #### [facility] [address] [place] [address] Dr. Tom Dotson Anti-PR3 Antibodies <0.2 Normal 0.0-0.9 [facility] Comment on above: Result Comment: Perf ormed at: BN Performed By: #### C BC #### [facility] [address] [place] [address] Dr. Tom Dotson Atypical pANCA <1:20 Normal Neg:<1:20 [facility] Comment on above: Result Comment: The atypical pANCA pattern has been observed in a significant percentage of patients with ulcerative colitis, primary sclerosing cholangitis and autoimmune hepatitis. Performed at: CB Performed By: #### C BC #### [facility] [address] [place] [address] Dr. Tom Dotson Cytoplasmic (C-ANCA) <1:20 Normal Neg:<1:20 [facility] Comment on above: Result Comment: Perf ormed at: CB Performed By: #### C BC #### [facility] [address] [place] [address] Dr. Tom Dotson Perinuclear (P-ANCA) <1:20 Normal Neg:<1:20 [facility] Comment on above: Result Comment: The presence of positive fluorescence exhibiting P-ANCA or C-ANCA patterns alone is not specific for the diagnosis of Nevin's Granulomatosis (WG) or microscopic polyangiitis. Decisions about treatment should not be based solely on ANCA IFA results. The International ANCA Group Consensus recommends follow up testing of positive sera with both WY-3 and MPO-ANCA enzyme immunoassays. As many as 5% serum samples are positive only by EIA. Ref. AM J Clin Pathol 1999;111:507-513. Performed at: CB Performed By: #### C BC #### [facility] [address] [place] [address] Dr. Tom Dotson IMMUNOGLOBULIN E, TOTALon Immunoglobulin E, Total 68 IU/mL Normal 6-495 [facility] Comment on above: Performed By: #### I GETOT #### [facility] [address] [place] [address] Dr. Tom Dotson ANGIOTENSION-CONVERTING ENZY ME (ELINOR)on 04-17-2022 ELINOR 28 U/L Normal 14-82 [facility] Comment on above: Performed By: #### A NGIOC #### [facility] [address] [place] [address] Dr. Tom Dotson CBC AUTO DIFFon 04-16-2022 BASO # 0.1 103/ul Normal 0.0-0.1 [facility] Comment on above: Performed By: #### I NFLUAB #### [facility] [address] [place] [address] Dr. Tom Dotson Basophils/100 WBC (Bld) 1.0 % Normal 0.2-2.0 [facility] Comment on above: Performed By: #### I NFLUAB #### [facility] [address] [place] [address] Dr. Tom Dotson EO # 0.0 103/ul Normal 0.0-0.7 [facility] Comment on above: Performed By: #### I NFLUAB #### [facility] [address] [place] [address] Dr. Tom Dotson Eosinophils/100 WBC (Bld) 0.1 % Critically low 0.9-7.0 [facility] Comment on above: Performed By: #### I NFLUAB #### [facility] [address] [place] [address] Dr. Tom Dotson Erythrocyte distribution width (RBC) [Ratio] 12.9 % Normal 11.0-15.0 [facility] Comment on above: Performed By: #### I NFLUAB #### [facility] [address] [place] [address] Dr. Tom Dotson Hematocrit (Bld) [Volume fraction] 44.8 % Normal 42.0-54.0 [facility] Comment on above: Performed By: #### I NFLUAB #### [facility] [address] [place] [address] Dr. Tom Dotson Hemoglobin (Bld) [Mass/Vol] 15.0 g/dL Normal 14.0-18.0 [facility] Comment on above: Performed By: #### I NFLUAB #### [facility] [address] [place] [address] Dr. Tom Dotson IG # 0.02 10e3/ul Normal 0.00-0.03 [facility] Comment on above: Performed By: #### I NFLUAB #### [facility] [address] [place] [address] Dr. Tom Dotson IG % 0.2 % Normal 0.0-0.5 [facility] Comment on above: Performed By: #### I NFLUAB #### [facility] [address] [place] [address] Dr. Tom Dotson LYMPH # 1.4 103/ul Normal 1.2-3.8 [facility] Comment on above: Performed By: #### I NFLUAB #### [facility] [address] [place] [address] Dr. Tom Dotson Lymphocytes/100 WBC (Bld) 17.6 % Critically low 20.5-60.0 [facility] Comment on above: Performed By: #### I NFLUAB #### [facility] [address] [place] [address] Dr. Tom Dotson MANUAL DIFF REQ NO Normal [facility] Comment on above: Performed By: #### I NFLUAB #### [facility] [address] [place] [address] Dr. Tom Dotson MCH (RBC) [Entitic mass] 30.9 pg Normal 25.9-34.0 [facility] Comment on above: Performed By: #### I NFLUAB #### [facility] [address] [place] [address] Dr. Tom Dotson MCHC (RBC) [Mass/Vol] 33.5 g/dL Normal 29.9-35.2 [facility] Comment on above: Performed By: #### I NFLUAB #### [facility] [address] [place] [address] Dr. Tom Dotson MCV (RBC) [Entitic vol] 92.2 fL Normal 80.0-94.0 [facility] Comment on above: Performed By: #### I NFLUAB #### [facility] [address] [place] [address] Dr. Tom Dotson MONO # 0.8 103/ul Normal 0.3-0.8 [facility] Comment on above: Performed By: #### I NFLUAB #### [facility] [address] [address] [address] Tom Dotson Monocytes/100 WBC (Bld) 9.6 % Normal 1.7-12.0 [facility] Comment on above: Performed By: #### I NFLUAB #### [facility] [address] [place] [address] Dr. Tom Dotson NEUT # 5.9 103/ul Normal 1.4-6.5 [facility] Comment on above: Performed By: #### I NFLUAB #### [facility] [address] [place] [address] Dr. Tom Dotson Neutrophils/100 WBC (Bld) 71.5 % Normal 43.0-75.0 [facility] Comment on above: Performed By: #### I NFLUAB #### [facility] [address] [place] [address] Dr. Tom Dotson Platelet mean volume (Bld) [Entitic vol] 9.9 fL Normal 9.5-13.5 [facility] Comment on above: Performed By: #### I NFLUAB #### [facility] [address] [place] [address] Dr. Tom Dotson PLT 325 103/ul Normal 150-450 [facility] Comment on above: Performed By: #### I NFLUAB #### [facility] [address] [place] [address] Dr. Tom Dotson RBC 4.86 106/ul Normal 4.70-6.10 [facility] Comment on above: Performed By: #### I NFLUAB #### [facility] [address] [place] [address] Dr. Tom Dotson WBC 8.2 103/ul Normal 4.0-11.0 [facility] Comment on above: Performed By: #### I NFLUAB #### [facility] [address] [place] [address] LUNG CANCER SCREENINGon [...] YARIEL OLSON Date: 2022-04-10 22:57 Normal [facility] CBC AUTO DIFFon 03-06-2022 BASO # 0.1 103/ul Normal 0.0-0.1 [facility] Comment on above: Performed By: #### C BC #### [facility] [address] [address] [address] Tom Dotson Basophils/100 WBC (Bld) 1.0 % Normal 0.2-2.0 [facility] Comment on above: Performed By: #### C BC #### [facility] [address] [address] [address] Tom Dotson EO # 2.5 103/ul Critically high 0.0-0.7 [facility] Comment on above: Performed By: #### C BC #### [facility] [id number] Tom Dotson Eosinophils/100 WBC (Bld) 29.1 % Critically high 0.9-7.0 [facility] Comment on above: Performed By: #### C BC #### [facility] [address] [place] [address] Dr. Tom Dotson Erythrocyte distribution width (RBC) [Ratio] 12.8 % Normal 11.0-15.0 [facility] Comment on above: Performed By: #### C BC #### [facility] [address] [place] [address] Dr. Tom Dotson Hematocrit (Bld) [Volume fraction] 46.6 % Normal 42.0-54.0 [facility] Comment on above: Performed By: #### C BC #### [facility] [address] [place] [address] Dr. Tom Dotson Hemoglobin (Bld) [Mass/Vol] 14.4 g/dL Normal 14.0-18.0 [facility] Comment on above: Performed By: #### C BC #### [facility] [address] [place] [address] Dr. Tom Dotson IG # 0.04 10e3/ul Critically high 0.00-0.03 [facility] Comment on above: Performed By: #### C BC #### [facility] [address] [place] [address] Dr. Tom Dotson IG % 0.5 % Normal 0.0-0.5 [facility] Comment on above: Performed By: #### C BC #### [facility] [address] [place] [address] Dr. Tom Dotson LYMPH # 1.3 103/ul Normal 1.2-3.8 [facility] Comment on above: Performed By: #### C BC #### [facility] [address] [place] [address] Dr. Tom Dotson Lymphocytes/100 WBC (Bld) 15.1 % Critically low 20.5-60.0 [facility] Comment on above: Performed By: #### C BC #### [facility] [address] [place] [address] Dr. Tom Dotson MANUAL DIFF REQ NO Normal [facility] Comment on above: Performed By: #### C BC #### [facility] [address] [address] [address] Tom Dotson MCH (RBC) [Entitic mass] 29.5 pg Normal 25.9-34.0 [facility] Comment on above: Performed By: #### C BC #### [facility] [address] [address] [address] Tom Dotson MCHC (RBC) [Mass/Vol] 30.9 g/dL Normal 29.9-35.2 [facility] Comment on above: Performed By: #### C BC #### [facility] [address] [place] [address] Dr. Tom Dotson MCV (RBC) [Entitic vol] 95.5 fL Critically high 80.0-94.0 [facility] Comment on above: Performed By: #### C BC #### [facility] [address] [place] [address] Dr. Tom Dotson MONO # 0.8 103/ul Normal 0.3-0.8 [facility] Comment on above: Performed By: #### C BC #### [facility] [address] [place] [address] Dr. Tom Dotson Monocytes/100 WBC (Bld) 9.5 % Normal 1.7-12.0 [facility] Comment on above: Performed By: #### C BC #### [facility] [address] [place] [address] Dr. Tom Dotson NEUT # 3.9 103/ul Normal 1.4-6.5 [facility] Comment on above: Performed By: #### C BC #### [facility] [address] [place] [address] Dr. Tom Dotson Neutrophils/100 WBC (Bld) 44.8 % Normal 43.0-75.0 [facility] Comment on above: Performed By: #### C BC #### [facility] [address] [place] [address] Dr. Tom Dotson Platelet mean volume (Bld) [Entitic vol] 10.2 fL Normal 9.5-13.5 [facility] Comment on above: Performed By: #### C BC #### [facility] [address] [place] [address] Dr. Tom Dotson PLT 328 103/ul Normal 150-450 [facility] Comment on above: Performed By: #### C BC #### [facility] [address] [place] [address] Dr. Tom Dotson RBC 4.88 106/ul Normal 4.70-6.10 [facility] Comment on above: Performed By: #### C BC #### [facility] [address] [place] [address] Dr. Tom Dotson WBC 8.7 103/ul Normal 4.0-11.0 [facility] Comment on above: Performed By: #### C BC #### [facility] [address] [place] [address] Dr. Tom Dotson DIFFERENTIAL MANUALon 2021 ATYPICAL LYMPH # 0.09 103/ul Normal [facility] Comment on above: Performed By: #### D IFF #### [facility] [address] [place] [address] Dr. Tom Dotson ATYPICAL LYMPH % 1 % Normal [facility] Comment on above: Performed By: #### D IFF #### [facility] [address] [place] [address] Dr. Tom Dotson BAND # 0.0 103/ul Normal 0.0-0.3 [facility] Comment on above: Performed By: #### D IFF #### [facility] [address] [place] [address] Dr. Tom Dotson BAND % 0 % Normal 0-5 [facility] Comment on above: Performed By: #### D IFF #### [facility] [address] [place] [address] Dr. Tom Dotson BASOM # 0.00 103/ul Normal 0.00-0.10 [facility] Comment on above: Performed By: #### D IFF #### [facility] [address] [place] [address] Dr. Yilan Dotson BASOM % 0.0 % Critically low 0.2-2.0 The [facility] Comment on above: Performed By: #### D IFF #### [facility] [address] [address] [address] Tom Dotson BLAST # Normal [facility] Comment on above: Performed By: #### D IFF #### [facility] [address] [address] [address] Tom Dotson BLAST % Normal [facility] Comment on above: Performed By: #### D IFF #### [facility] [address] [place] [address] Dr. Tom Dotson CORRECTED WBC Normal 4.0-11.0 [facility] Comment on above: Performed By: #### D IFF #### [facility] [address] [place] [address] Dr. Tom Dotson EOS # 1.22 103/ul Critically high 0.00-0.70 [facility] Comment on above: Performed By: #### D IFF #### [facility] [address] [place] [address] Dr. Tom Dotson EOS% 14.0 % Critically high 0.9-7.0 [facility] Comment on above: Performed By: #### D IFF #### [facility] [address] [place] [address] Dr. Tom Dotson LYMPHM # 1.91 103/ul Normal 1.20-3.80 [facility] Comment on above: Performed By: #### D IFF #### [facility] [address] [place] [address] Dr. Tom Dotson LYMPHM% 22.0 % Normal 20.5-60.0 [facility] Comment on above: Performed By: #### D IFF #### [facility] [address] [place] [address] Dr. Tom Dotson METAMYELOCYTE # Normal [facility] Comment on above: Performed By: #### D IFF #### [facility] [address] [place] [address] Dr. Tom Dotson METAMYELOCYTE % Normal [facility] Comment on above: Performed By: #### D IFF #### [facility] [address] [place] [address] Dr. Tmo Dotson MONOM# 0.52 103/ul Normal 0.30-0.80 [facility] Comment on above: Performed By: #### D IFF #### [facility] [address] [place] [address] Dr. Tom Dotson MONOM% 6.0 % Normal 1.7-12.0 [facility] Comment on above: Performed By: #### D IFF #### [facility] [address] [place] [address] Dr. Tom Dotson MYELOCYTE # Normal [facility] Comment on above: Performed By: #### D IFF #### [facility] [address] [place] [address] Dr. Tom Dotson MYELOCYTE % Normal [facility] Comment on above: Performed By: #### D IFF #### [facility] [address] [place] [address] Dr. Tom Dotson NRBC Normal [facility] Comment on above: Performed By: #### D IFF #### [facility] [address] [place] [address] Dr. Tom Dotson SEG # 4.96 103/ul Normal 1.40-6.50 [facility] Comment on above: Performed By: #### D IFF #### [facility] [address] [place] [address] Dr. Tom Dotson SEG % 57.0 % Normal 43.0-75.0 [facility] Comment on above: Performed By: #### D IFF #### [facility] [address] [place] [address] Dr. Tom Dotson WBC 8.7 103/ul Normal 4.0-11.0 [facility] Comment on above: Performed By: #### D IFF #### [facility] [address] [place] [address] Dr. Tom Dotson LIPID PROFILEon 03-06-2022 CHOL-HDL RATIO NORM SEE BELOW Normal [facility] Comment on above: Result Comment: 3.3 - 4.4 LOW RISK 4.4 - 7.1 AVERAGE RISK 7.1 - 11.0 MODERATE RISK >11.0 HIGH RISK Performed By: #### I NFLUAB #### [facility] [address] [address] [address] Tom Dotson Cholesterol [Mass/Vol] 135 mg/dL Normal <=200 [facility] Comment on above: Performed By: #### I NFLUAB #### [facility] [address] [address] [address] Tom Dotson Cholesterol in HDL [Mass/Vol] 51 mg/dL Normal 40-60 [facility] Comment on above: Performed By: #### I NFLUAB #### [facility] [address] [address] [address] Tom Dotson Cholesterol in LDL [Mass/Vol] 74.4 mg/dL Normal [facility] Comment on above: Performed By: #### I NFLUAB #### [facility] [address] [address] [address] Tom Dotson Cholesterol.total/Ch olesterol in HDL [Mass ratio] 2.6 {ratio} Normal [facility] Comment on above: Performed By: #### I NFLUAB #### [facility] [address] [address] [address] Tom Dotson HDL NORMAL > or = 60 mg/dl - LO W CARDIOVASCULAR RISK <40 mg/dl - HIGH CARDIOVASCULAR RISK Normal [facility] Comment on above: Performed By: #### I NFLUAB #### [facility] [address] [address] [address] Tom Dotson LDL CALC NORMAL SEE BELOW Normal [facility] Comment on above: Result Comment: <100 mg/dl OPTIMAL 100 - 129 mg/dl NEAR OR ABOVE OPTIMAL 130 - 159 mg/dl BORDERLINE HIGH 160 - 189 mg/dl HIGH >190 mg/dl VERY HIGH Performed By: #### I NFLUAB #### [facility] [address] [address] [address] Tom Dotson Triglyceride [Mass/Vol] 48 mg/dL Normal <=150 [facility] Comment on above: Performed By: #### I NFLUAB #### [facility] [address] [place] [address] Dr. Tom Dotson VLDL CALC 9.6 mg/dL Normal [facility] Comment on above: Performed By: #### I NFLUAB #### [facility] [address] [place] [address] Dr. Tom Dotson PROF 14(COMP METB)on 022 Albumin [Mass/Vol] 3.8 g/dL Normal 3.4-5.0 [facility] Comment on above: Performed By: #### I NFLUAB #### [facility] [address] [place] [address] Dr. Tom Dotson Albumin/Globulin [Mass ratio] 1.1 {ratio} Normal [facility] Comment on above: Performed By: #### I NFLUAB #### [facility] [address] [place] [address] Dr. Tom Dotson ALP [Catalytic activity/Vol] 62 U/L Normal 46-116 [facility] Comment on above: Performed By: #### I NFLUAB #### [facility] [address] [place] [address] Dr. Tom Dotson ALT [Catalytic activity/Vol] 25 U/L Normal 16-63 [facility] Comment on above: Performed By: #### I NFLUAB #### [facility] [address] [place] [address] Dr. Tom Dotson Anion gap [Moles/Vol] 9.8 mmol/L Normal [facility] Comment on above: Performed By: #### I NFLUAB #### [facility] [address] [place] [address] Dr. Tom Dotson AST [Catalytic activity/Vol] 15 U/L Normal 15-37 [facility] Comment on above: Performed By: #### I NFLUAB #### [facility] [address] [place] [address] Dr. Tom Dotson Bilirubin [Mass/Vol] 0.9 mg/dL Normal 0.2-1.0 [facility] Comment on above: Performed By: #### I NFLUAB #### [facility] [address] [place] [address] Dr. Tom Dotson Calcium [Mass/Vol] 8.8 mg/dL Normal 8.5-10.1 [facility] Comment on above: Performed By: #### I NFLUAB #### [facility] [address] [place] [address] Dr. Tom Dotson Chloride [Moles/Vol] 102 mmol/L Normal 98-107 [facility] Comment on above: Performed By: #### I NFLUAB #### [facility] [address] [place] [address] Dr. Tom Dotson CO2 [Moles/Vol] 30.5 mmol/L Normal 21.0-32.0 [facility] Comment on above: Performed By: #### I NFLUAB #### [facility] [address] [place] [address] Dr. Tom Dotson Creatinine [Mass/Vol] 0.95 mg/dL Normal 0.70-1.30 [facility] Comment on above: Performed By: #### I NFLUAB #### [facility] [address] [place] [address] Dr. Tom Dotson EGFR-AF ETHIOPIAN >60 Normal >=60 [facility] Comment on above: Performed By: #### I NFLUAB #### [facility] [address] [place] [address] Dr. Tom Dotson EGFR-NON AF ETHIOPIAN >60 Normal >=60 [facility] Comment on above: Performed By: #### I NFLUAB #### [facility] [address] [place] [address] Dr. Tom Dotson Globulin (S) [Mass/Vol] 3.4 g/dL Normal [facility] Comment on above: Performed By: #### I NFLUAB #### [facility] [address] [place] [address] Dr. Tom Dotson Glucose [Mass/Vol] 85 mg/dL Normal 74-106 [facility] Comment on above: Performed By: #### I NFLUAB #### [facility] [address] [address] [address] Tom Dotson Potassium [Moles/Vol] 4.3 mmol/L Normal 3.5-5.1 [facility] Comment on above: Performed By: #### I NFLUAB #### [facility] [address] [address] [address] Tom Dotson Protein [Mass/Vol] 7.2 g/dL Normal 6.4-8.2 [facility] Comment on above: Performed By: #### I NFLUAB #### [facility] [address] [place] [address] Dr. Tom Dotson Sodium [Moles/Vol] 138 mmol/L Normal 136-145 [facility] Comment on above: Performed By: #### I NFLUAB #### [facility] [address] [place] [address] Dr. Tom Dotson Urea nitrogen [Mass/Vol] 14.0 mg/dL Normal 7.0-18.0 [facility] Comment on above: Performed By: #### I NFLUAB #### [facility] [address] [place] [address] Dr. Tom Dotson Urea nitrogen/Creatinine [Mass ratio] 14.7 mg/mg Normal [facility] Comment on above: Performed By: #### I NFLUAB #### [facility] [address] [place] [address] Dr. Tom Dotson TSHon 03-06-2022 TSH 1.010 uIU/mL Normal 0.358-3.740 [facility] Comment on above: Performed By: #### I NFLUAB #### [facility] [address] [place] [address] Dr. Tom Dotson Hepatic Panelon 09-02-2019 Albumin [Mass/Vol] 3.2 g/dL Normal 3.2-5.5 [facility] Comment on above: Performed By: #### H EPATIC, LIPID, TSH3 wRFLX, [id number] #### [facility] [address] [place] [address] Albumin/Globulin [Mass ratio] 1.1 {ratio} Normal [facility] Comment on above: Performed By: #### H EPATIC, LIPID, TSH3 wRFLX, [id number] #### [address] ALP [Catalytic activity/Vol] 38 U/L Normal 32-92 [facility] Comment on above: Performed By: #### H EPATIC, LIPID, TSH3 wRFLX, [id number] #### [address] ALT [Catalytic activity/Vol] 14 U/L Normal 10-60 [facility] Comment on above: Performed By: #### H EPATIC, LIPID, TSH3 wRFLX, [id number] #### [address] AST [Catalytic activity/Vol] 13 U/L Normal 10-42 [facility] Comment on above: Performed By: #### H EPATIC, LIPID, TSH3 wRFLX, [id number] #### [address] Bilirubin [Mass/Vol] 0.9 mg/dL Normal 0.3-1.2 [facility] Comment on above: Performed By: #### H EPATIC, LIPID, TSH3 wRFLX, [id number] #### [facility] [address] [place] [address] Bilirubin,Indirect 0.8 mg/dL Normal [facility] Comment on above: Performed By: #### H EPATIC, LIPID, TSH3 wRFLX, [id number] #### [facility] [address] [place] [address] Bilirubin.direct [Mass/Vol] 0.1 mg/dL Normal 0.0-0.4 [facility] Comment on above: Performed By: #### H EPATIC, LIPID, TSH3 wRFLX, [id number] #### [address] Globulin (S) [Mass/Vol] 2.9 g/dL Normal [facility] Comment on above: Performed By: #### H EPATIC, LIPID, TSH3 wRFLX, [id number] #### [facility] [address] Protein [Mass/Vol] 6.1 g/dL Normal 6.1-7.9 [facility] Comment on above: Performed By: #### H EPATIC, LIPID, TSH3 wRFLX, [id number] #### [facility] [address] Lipid Panelon 09-02-2019 Cholesterol [Mass/Vol] 158 mg/dL Normal 140-200 [facility] Comment on above: Result Comment: Chol less than 200 mg/dl low risk Chol 201-239 mg/dl borderline risk Chol 240 mg/dl and greater high risk Performed By: #### H EPATIC, LIPID, TSH3 wRFLX, [id number] #### [facility] [address] Cholesterol in HDL [Mass/Vol] 61 mg/dL Normal 29-71 [facility] Comment on above: Result Comment: HDL CHOL ATP-III CLASSIFICATION Cardiovascular Risk HDL > or equal to 60 mg/dL LOW HDL < 40 mg/dL HIGH Performed By: #### H EPATIC, LIPID, TSH3 wRFLX, [id number] #### [facility] [address] Cholesterol.total/Ch olesterol in HDL [Mass ratio] 2.6 {ratio} Normal <5.0 [facility] Comment on above: Performed By: #### H EPATIC, LIPID, TSH3 wRFLX, [id number] #### [facility] [address] [place] [address] [place] LDL Cholesterol,Calculat ed 84 mg/dL Normal 0-100 [facility] Comment on above: Result Comment: LDL ATP III CLASSIFICATION LDL less than 100 mg/dL Optimal LDL 100-129 mg/dL Near or above optimal LDL 130-159 mg/dL Borderline high LDL 160-189 mg/dL High LDL greater than 189 mg/dL Very high Performed By: #### H EPATIC, LIPID, TSH3 wRFLX, [id number] #### [facility] [address] Triglyceride w/Reflex 63 mg/dL Normal 35-149 [facility] Comment on above: Result Comment: TRIG ATP III CLASSIFICATION TRIG less than 150 mg/dL Normal TRIG 150-199 mg/dL Borderline high TRIG 200-500 mg/dL High TRIG greater than 500 mg/dL Very high Standard traceable to the Center for Disease Conrtrol and Prevention (CDC) test method. Performed By: #### H EPATIC, LIPID, TSH3 wRFLX, [id number] #### [facility] [address] VLDL CHOLESTEROL 12 mg/dL Normal [facility] Comment on above: Performed By: #### H EPATIC, LIPID, TSH3 wRFLX, [id number] #### [facility] [address] [place] [address] [place] Thyroid Stim Hormone w/Rflxo n 09-02-2019 Thyroid Stim Hormone w/Rflx 1.92 u[iU]/mL Normal 0.45-5.33 [facility] Comment on above: Performed By: #### H EPATIC, LIPID, TSH3 wRFLX, [id number] #### [facility] [address] [place] [address] [place] Vitamin D 25 Hydroxy Totalon 09-02-2019 Vitamin D 25 Hydroxy Total 11.9 ng/mL Low 30-100 [facility] Comment on above: Result Comment: DAE MIN D STATUS 25(OH)VITAMIN D RANGE (ng/mL) Deficient <20 Insufficient 20 to <30 Sufficient 30 to 100 Reference: Darrion MF,Zane NC, Mason-Jelani AVELAR, et al. Evaluation,treatment, and prevention of vitamin D deficiency; an Endocrine Society clinical practice guideline. JCEM. 2010; 96(7):1911-30. PERFORMED BY: [place] [address] PATHOLOGIST SLUBBER MACHINE OPERATOR MIGUELINA FLOOD M.D. Performed By: #### H EPATIC, LIPID, TSH3 wRFLX, [id number] #### [facility] [address] Vital Signs Date Time Vital Sign Value Performing Clinician Madan mayer 10-30-2023 10:00-0500 Body height 185.4 cm Azul Damien RECLAMATION ENGINEER Work Phone: [facility] 10-30-2023 10:00-0500 Body mass index (BMI) [Ratio] 26.84 kg/m2 Azulailyn Quezada RECLAMATION ENGINEER Work Phone: [facility] 10-30-2023 10:00-0500 Body temperature 97.11 [degF] Azul Maria Luzz RECLAMATION ENGINEER Work Phone: [facility] 10-30-2023 10:00-0500 Body weight 92.26 kg Azul Maria Luzz RECLAMATION ENGINEER Work Phone: [facility] 10-30-2023 10:00-0500 Diastolic blood pressure 78 mm[Hg] Azul Maria Luzz RECLAMATION ENGINEER Work Phone: [facility] 10-30-2023 10:00-0500 Heart rate 83 /min Azul Rosaholz RECLAMATION ENGINEER Work Phone: [facility] 10-30-2023 10:00-0500 Respiratory rate 16 /min Azul Rosaholz RECLAMATION ENGINEER Work Phone: [facility] 10-30-2023 10:00-0500 SaO2% (BldA) [Mass fraction] 94 % Azul Maria Luzz RECLAMATION ENGINEER Work Phone: [facility] 10-30-2023 10:00-0500 Systolic blood pressure 138 mm[Hg] Azul Leidyhholz RECLAMATION ENGINEER Work Phone: [facility] Encounters Encounter Date Encounter Type Care Provider Facility Start: 05-31-2024 End: 05-31-2024 ambulatory IBETH TORRES Not Available Start: 05-19-2024 End: 05-19-2024 ambulatory AZUL DAMIEN Not Available Start: 02-18-2024 End: 02-18-2024 ambulatory AZUL AICHHOLZ Not Available Start: 12-15-2023 End: 12-15-2023 ambulatory AZUL SILVERMANHOLZ Not Available Start: 11-13-2023 End: 11-13-2023 ambulatory AZUL AICMaxHOLZ Not Available Start: 10-30-2023 End: 10-30-2023 Office outpatient visit 15 minutes Azul Quezada RECLAMATION ENGINEER Work Phone: [facility] Comment on above: Influenza (Primary D x); Marijuana abuse; Smoker; BMI 26.0-26.9,adult; Centrilobular emphysema (CMS/HCC) Start: 10-30-2023 End: 10-30-2023 ambulatory AZUL SILVERMANHOLZ Not Available Start: 10-21-2023 Clinisync Result Encounter Generic External Data Provider [facility] Unsolicited Start: 10-21-2023 Clinisync Result Encounter Generic External Data Provider [facility] Unsolicited Start: 09-25-2022 End: 09-25-2022 ambulatory ZANE QUEZADA Facility:[facility] Start: 04-16-2022 End: 04-17-2022 ambulatory JAMESON WHITE Facility:[facility] Start: 04-10-2022 End: 04-11-2022 ambulatory JAMESON WHITE Facility:[facility] Start: 03-06-2022 End: 03-07-2022 ambulatory ZANE QUEZADA Facility:[facility] Procedures Date Procedure Procedure Detail Performing Clinician Start: 10-21-2023 BLOOD CULTURE 2 Generic External Data Provider Start: 10-21-2023 BLOOD CULTURE 1 Generic External Data Provider Start: 03-06-2022 PSA screening JAMESON VU [facility] Comment on above: Performed By: #### P [facility] #### [facility] [address] [address] [address] Tom Dotson Plan of Treatment Date Care Activity Detail Author Start: 08-04-2024 Screening for malign ant neoplasm of colon [facility] Start: 03-21-2024 Influenza vaccination Influenza Vacc ine (#1) [facility] Comment on above: Postponed from 05/23 (Patient Refused) Start: 11-13-2023 End: 11-13-2023 Patient encounter procedure 11/13/2023 9:40 AM EST Office Visit [facility] [address] [place] [id number] Azul Quezada, ORACIO [address] [place] [id number] [facility] Start: 10-30-2023 End: 10-30-2023 Patient encounter procedure 10/30/2023 10:00 AM EST Office Visit [facility] [address] [place] [id number] Azul Quezada, ORACIO [address] [place] [phone] [facility] Start: 2023 Influenza vaccination Influenza Vacc ine (#1) [facility] Start: 1960 Medicare Annual Well ness (AWV) Medicare Annual Wellness (AWV) [facility] Start: 1960 Screening for malign ant neoplasm of colon [facility] BLOOD CULTURE 1 BLOOD CULTURE 1 Lab Routine 10/21/2023 12:27 PM EST [facility] BLOOD CULTURE 2 BLOOD CULTURE 2 Lab Routine 10/21/2023 12:30 PM EST [facility] Immunizations Immunization Date Immunization Notes Care Provider [facility] 2020 influenza, live, intranasal, quadrivalent Azul Rosaholz RECLAMATION ENGINEER Work Phone: [facility] 2020 influenza virus vacc ine, unspecified formulation Generic Provider [facility] 08-04-2019 influenza, high dose seasonal, preservative-free Azul Aicmaxholz RECLAMATION ENGINEER Work Phone: [facility] Payers Date Payer Category Payer Medicare [id number] 1993 Medicare [id number] 1960 Unknown [id number] 2.16.84 [id number] 1960 Unknown [id number] 2.16.84 [id number] 1960 Unknown [id number] 2.16.84 [id number] 1960 Unknown [id number] 2.16.84 [id number] 1960 Unknown [id number] 2.16.84 [id number] 1960 Unknown [id number] 2.16.84 [id number] 1960 Unknown [id number] 2.16.84 [id number] 1960 Unknown [id number] 2.16.84 [id number] 1960 Unknown [id number] 2.16.84 [id number] 1960 Unknown [id number] 2.16.84 [id number] 1959 Medicaid [id number] 1959 Unknown [id number] Social History Date Type Detail Facility Tobacco smoking stat [facility] Tobacco smoking consumption unknown [facility] Start: 1960 Sex Assigned At Not on file [facility] Start: 10-30-2023 Gender identity Not on file [facility] Start: 10-30-2023 Tobacco smoking stat [facility] Ex-smoker [facility] End: 03-22-2019 History [...] complaint on file. HPI: Recent hospitalization at [facility] for 3 days d/t influenza. Does [...] artery stenosis Calcified lymph nodes Centrilobular emphysema (CMS/HCC) COVID-19 07/2019 CVA (cerebral vascular accident) ([facility]) Degenerative cervical disc Depression with anxiety Insomnia Marijuana abuse 10/30/2023 Multiple pulmonary nodules Neck mass 2013 Osteoarthritis Papule of skin Pigmented skin lesion of uncertain nature Rheumatic fever Stroke ([facility]) 07/2020 Testicle lump Tourette's ([facility]) Vertebral artery occlusion Vocal cord polyp Past Surgical History: Procedure Laterality Date ADENOIDECTOMY CAROTID STENT Right 09/2019 stent, RT carotid CT GUIDED TRANSVAGINAL TRANSRECTAL FLUID DRAIN 06/09/2020 CT GUIDED TRANSVAGINAL TRANSRECTAL FLUID DRAIN 06/09/2020 OTHER SURGICAL HISTORY Removal of Polyp Vocal area and Vocal Cord cyst [place] EXCISION THYROGLOSSAL DUCT CYST/SINUS Procedure:DL, e/o thyroglossal [...] section and content) DATE CREATED AUTHOR 09/04/2019 [facility] DATE CREATED AUTHOR AUTHOR'S ORGANIZ ATION 09/30/2022 [facility] DATE CREATED AUTHOR AUTHOR'S ORGANIZ ATION 06/01/2024 [facility] dical Specialists EPIC Care Teams (unrecognized sec tion and content) Quality Measurement Specialist Relationship Specialty Start Date End Date Kiko Zurita MD PCP - General Family Medicine 04/07/23 Azul Quezada NP [address] [place] [phone] Referring Physician Nurse Practitioner 04/07/23 Quality Measurement Specialist Relationship Specialty Start Date End Date Kiko Zurita MD [address] [place] [phone] PCP - General Family Medicine 10/24/23 Azul Quezada NP [address] [place] [phone] Referring Physician Nurse Practitioner 04/07/23 [...] BE BASED ON THE PRIMARY CLINICAL RECORDS. [employer] [facility]. provides no warranty or guarantee of the accuracy or completeness of information in this document.
== END 2024-06-08 14:53 | disposition home or self-care (01) ==
LOC: PST 14:53
PROVIDERS: PCP Nurse Practitioner; Visit Provider Surgery
DX: Z01.818 Encounter for other preprocedural examination (principal); Z12.11 Encounter for screening for malignant neoplasm of colon

== ENCOUNTER 2024-06-15 06:13 | Day surgery (SDC) | payer MEDICARE, SELFPAY ==
--- OUTSIDE RECORDS SUMMARY | 2024-06-15 06:16 | XMS_ITS | CCD ---
Author Organization [facility] Care Team Providers Care Tankroom Tender Name Role Phone SAMSA, JAMESON Admitting Unavailable SAMSA, JAMESON Attending Unavailable AICHHOLZ, SINTERING PRESS OPERATOR AZUL Referring Unavailable AICHHOLZ, SINTERING PRESS OPERATOR AZUL Primary Care Unavailable SAMSA, JAMESON Consulting Unavailable AICHHOLZ, SINTERING PRESS OPERATOR AZUL Admitting Unavailable AICHHOLZ, SINTERING PRESS OPERATOR AZUL Attending Unavailable AICHHOLZ, SINTERING PRESS OPERATOR AZUL Primary Care Unavailable AICHHOLZ, SINTERING PRESS OPERATOR AZUL Consulting Unavailable SAMSA, JAMESON Admitting Unavailable SAMSA, JAMESON Attending Unavailable AICHHOLZ, SINTERING PRESS OPERATOR AZUL Primary Care Unavailable WHITNEY, DR YARIEL Figueroa Consulting Unavailable SAMSA, JAMESON Consulting Unavailable AICHHOLZ, SINTERING PRESS OPERATOR AZUL Primary Care Unavailable DAREN, DR MAURO Admitting Unavailable DAREN, DR MAURO Attending Unavailable WHITNEY, DR YARIEL Figueroa Consulting Unavailable DAREN, DR MAURO Consulting Unavailable Yudith YANG, Kiko Primary Care Provider [phone] [employer] ATTORNEY, Azul Unavailable Kiko Zurita MD Primary Care Provider [phone] AICHHOLZ, AZUL Attending Unavailable AICHHOLZ, AZUL Attending [...] B (Bld) [Mass/Vol] 42.0 pg/mL Normal <=900.0 [facility] Comment on above: Performed By: #### I NFLUAB #### [facility] [address] [place] [address] Dr. Tom Dotson CBC AUTO DIFFon 09-25-2022 BASO # 0.1 103/ul Normal 0.0-0.1 [facility] Comment on above: Performed By: #### C BC #### [facility] [address] [place] [address] Dr. Tom Dotson Basophils/100 WBC (Bld) 0.8 % Normal 0.2-2.0 [facility] Comment on above: Performed By: #### C BC #### [facility] [address] [place] [address] Dr. Tom Dotson EO # 0.0 103/ul Normal 0.0-0.7 [facility] Comment on above: Performed By: #### C BC #### [facility] [address] [place] [address] Dr. Tom Dotson Eosinophils/100 WBC (Bld) 0.0 % Critically low 0.9-7.0 [facility] Comment on above: Performed By: #### C BC #### [facility] [address] [place] [address] Dr. Tom Dotson Erythrocyte distribution width (RBC) [Ratio] 12.4 % Normal 11.0-15.0 [facility] Comment on above: Performed By: #### C BC #### [facility] [address] [place] [address] Dr. Tom Dotson Hematocrit (Bld) [Volume fraction] 43.6 % Normal 42.0-54.0 [facility] Comment on above: Performed By: #### C BC #### [facility] [address] [place] [address] Dr. Tom Dotson Hemoglobin (Bld) [Mass/Vol] 14.3 g/dL Normal 14.0-18.0 [facility] Comment on above: Performed By: #### C BC #### [facility] [address] [place] [address] Dr. Tom Dotson IG # 0.02 10e3/ul Normal 0.00-0.03 [facility] Comment on above: Performed By: #### C BC #### [facility] [address] [place] [address] Dr. Tom Dotson IG % 0.3 % Normal 0.0-0.5 [facility] Comment on above: Performed By: #### C BC #### [facility] [address] [place] [address] Dr. Tom Dotson LYMPH # 1.4 103/ul Normal 1.2-3.8 [facility] Comment on above: Performed By: #### C BC #### [facility] [address] [place] [address] Dr. Tom Dotson Lymphocytes/100 WBC (Bld) 17.3 % Critically low 20.5-60.0 [facility] Comment on above: Performed By: #### C BC #### [facility] [address] [place] [address] Dr. Tom Dotson MANUAL DIFF REQ NO Normal [facility] Comment on above: Performed By: #### C BC #### [facility] [address] [place] [address] Dr. Tom Dotson MCH (RBC) [Entitic mass] 29.8 pg Normal 25.9-34.0 [facility] Comment on above: Performed By: #### C BC #### [facility] [address] [place] [address] Dr. Tom Dotson MCHC (RBC) [Mass/Vol] 32.8 g/dL Normal 29.9-35.2 [facility] Comment on above: Performed By: #### C BC #### [facility] [address] [place] [address] Dr. Tom Dotson MCV (RBC) [Entitic vol] 90.8 fL Normal 80.0-94.0 [facility] Comment on above: Performed By: #### C BC #### [facility] [address] [place] [address] Dr. Tom Dotson MONO # 0.7 103/ul Normal 0.3-0.8 [facility] Comment on above: Performed By: #### C BC #### [facility] [address] [place] [address] Dr. Tom Dotson Monocytes/100 WBC (Bld) 9.4 % Normal 1.7-12.0 [facility] Comment on above: Performed By: #### C BC #### [facility] [address] [place] [address] Dr. Tom Dotson NEUT # 5.7 103/ul Normal 1.4-6.5 [facility] Comment on above: Performed By: #### C BC #### [facility] [address] [place] [address] Dr. Tom Dotson Neutrophils/100 WBC (Bld) 72.2 % Normal 43.0-75.0 [facility] Comment on above: Performed By: #### C BC #### [facility] [address] [place] [address] Dr. Tom Dotson Platelet mean volume (Bld) [Entitic vol] 9.6 fL Normal 9.5-13.5 [facility] Comment on above: Performed By: #### C BC #### [facility] [address] [place] [address] Dr. Tom Dotson PLT 331 103/ul Normal 150-450 [facility] Comment on above: Performed By: #### C BC #### [facility] [address] [place] [address] Dr. Tom Dotson RBC 4.80 106/ul Normal 4.70-6.10 [facility] Comment on above: Performed By: #### C BC #### [facility] [address] [place] [address] Dr. Tom Dotson WBC 7.8 103/ul Normal 4.0-11.0 [facility] Comment on above: Performed By: #### C BC #### [facility] [address] [place] [address] Dr. Tom Dotson CULTURE BLOODon 09-25-2022 Microscopic examination of blood, culture Culture Observations: NO GROWTH AT 5 DAYS. [facility] Comment on above: Performed By: #### I NFLUAB #### [facility] [address] [place] [address] Dr. Tom Dotson Microscopic examination of blood, culture Culture Observations: NO GROWTH AT 5 DAYS. Normal [facility] Comment on above: Performed By: #### I NFLUAB #### [facility] [address] [place] [address] Dr. Tom Dotson [facility] SARS-CoV-2 (COVID-19) RNA OLGA+probe Ql (Unsp spec) Not detected Normal NOT DETECTED [facility] Comment on above: Result Comment: [...] for this test is supported by the [employer] of Health and Human Service's declaration that [...] #### C VDTBH #### [facility] [address] [place] [address] Dr. Tom Dotson INFLUENZA A AND B AGon 09-25 INFLUANEGH SEE BELOW Normal [facility] Comment on above: Result Comment: Nega tive for Flu A protein angiten. Infection due to Flu A cannot be ruled out. Flu A angiten in the sample may be below the detection limit of the test. Performed By: #### I NFLUAB #### [facility] [address] [place] [address] Dr. Tom Dotson INFLUBNEG SEE BELOW Normal [facility] Comment on above: Result Comment: Nega tive for Flu B protein antigen. Infection due to Flu B cannot be ruled out. Flu B antigen in the sample may be below the detection limit of the test. Performed By: #### I NFLUAB #### [facility] [address] [place] [address] Dr. Tom Dotson INFLUENZA A AG Negative Normal NEGATIVE SEE COMMENT [facility] Comment on above: Performed By: #### I NFLUAB #### [facility] [address] [place] [address] Dr. Tom Dotson INFLUENZA B AG Negative Normal NEGATIVE SEE COMMENT [facility] Comment on above: Performed By: #### I NFLUAB #### [facility] [address] [place] [address] Dr. Tom Dotson LACTATE/LACTIC ACIDon 2022 Lactate [Moles/Vol] 0.7 mmol/L Normal 0.4-1.9 [facility] Comment on above: Performed By: #### L ACT #### [facility] [address] [place] [address] Dr. Tom Dotson PROF CHEM 8 (BAS METB)on Anion gap [Moles/Vol] 9.3 mmol/L Normal [facility] Comment on above: Performed By: #### H STROPN, BMP, BNP #### [facility] [address] [place] [address] Dr. Tom Dotson Calcium [Mass/Vol] 8.8 mg/dL Normal 8.5-10.1 [facility] Comment on above: Performed By: #### H STROPN, BMP, BNP #### [facility] [address] [place] [address] Dr. Tom Dotson Chloride [Moles/Vol] 103 mmol/L Normal 98-107 [facility] Comment on above: Performed By: #### H STROPN, BMP, BNP #### [facility] [address] [place] [address] Dr. Tom Dotson CO2 [Moles/Vol] 31.1 mmol/L Normal 21.0-32.0 [facility] Comment on above: Performed By: #### H STROPN, BMP, BNP #### [facility] [address] [place] [address] Dr. Tom Dotson Creatinine [Mass/Vol] 0.77 mg/dL Normal 0.70-1.30 [facility] Comment on above: Performed By: #### H STROPN, BMP, BNP #### [facility] [address] [address] [address] Tom Dotson EGFR-AF GABONESE >60 Normal >=60 [facility] Comment on above: Performed By: #### H STROPN, BMP, BNP #### [facility] [address] [address] [address] Tom Dotson EGFR-NON AF GABONESE >60 Normal >=60 [facility] Comment on above: Performed By: #### H STROPN, BMP, BNP #### [facility] [address] [address] [address] Tom Dotson Glucose [Mass/Vol] 98 mg/dL Normal 74-106 [facility] Comment on above: Performed By: #### H STROPN, BMP, BNP #### [facility] [address] [address] [address] Tom Dotson Potassium [Moles/Vol] 4.4 mmol/L Normal 3.5-5.1 [facility] Comment on above: Performed By: #### H STROPN, BMP, BNP #### [facility] [address] [address] [address] Tom Dotson Sodium [Moles/Vol] 139 mmol/L Normal 136-145 [facility] Comment on above: Performed By: #### H STROPN, BMP, BNP #### [facility] [address] [address] [address] Tom Dotson Urea nitrogen [Mass/Vol] 13.0 mg/dL Normal 7.0-18.0 [facility] Comment on above: Performed By: #### H STROPN, BMP, BNP #### [facility] [address] [address] [address] Tom Dotson Urea nitrogen/Creatinine [Mass ratio] 16.9 mg/mg Normal [facility] Comment on above: Performed By: #### H STROPN, BMP, BNP #### [facility] [address] [place] [address] Dr. Tom Dotson TROPONIN, HIGH SENSITIVITYon 09-25-2022 HSTROP 7.4 pg/mL Normal 4.0-76.1 [facility] Comment on above: Result Comment: CUT- OFF POINTS HAVE BEEN ESTABLISHED BASED ON THE FOURTH UNIVERSAL DEFINITIONS OF MYOCARDIAL INFARCTION. THE UPPER REFERENCE LIMIT (URL) OF TROPONIN, DEFINED THE 99TH PERCENTILE OF cTnI DISTRIBUTION IN A REFERENCE POPULATION, HAS BEEN CONFIRMED THE DECISION THRESHOLD FOR VA DIAGNOSIS. Performed By: #### I NFLUAB #### [facility] [address] [address] [address] Tom Dotson XR CHEST 1 Von [...] 2022-09-25 10:55 Normal [facility] ASPERGILLUS AB, QUANTITATIVE DIDon 04-20-2022 Aspergillus flavus Negative Normal Neg:<1:1 [facility] Comment on above: Performed By: #### A SPDID #### [facility] [address] [place] [address] Dr. Tom Dotson Aspergillus fumigatus Negative Normal Neg:<1:1 [facility] Comment on above: Performed By: #### A SPDID #### [facility] [address] [place] [address] Dr. Tom Dotson Aspergillus niger Negative Normal Neg:<1:1 [facility] Comment on above: Performed By: #### A SPDID #### [facility] [address] [address] [address] Tom Dotson ANTI NEUTROPHIL CYTOPLASMIC AB (ANCA) PRon 04-19-2022 Anti-MPO Antibodies <0.2 Normal 0.0-0.9 [facility] Comment on above: Result Comment: Perf ormed at: BN Performed By: #### C BC #### [facility] [address] [place] [address] Dr. Tom Dotson Anti-PR3 Antibodies <0.2 Normal 0.0-0.9 [facility] Comment on above: Result Comment: Perf ormed at: BN Performed By: #### C BC #### [facility] [address] [place] [address] Dr. Tom Dotson Atypical pANCA <1:20 Normal Neg:<1:20 [facility] Comment on above: Result Comment: The atypical pANCA pattern has been observed in a significant percentage of patients with ulcerative colitis, primary sclerosing cholangitis and autoimmune hepatitis. Performed at: CB Performed By: #### C BC #### [facility] [address] [place] [address] Dr. Tom Dotson Cytoplasmic (C-ANCA) <1:20 Normal Neg:<1:20 [facility] Comment on above: Result Comment: Perf ormed at: CB Performed By: #### C BC #### [facility] [address] [place] [address] Dr. Tom Dotson Perinuclear (P-ANCA) <1:20 Normal Neg:<1:20 [facility] Comment on above: Result Comment: The presence of positive fluorescence exhibiting P-ANCA or C-ANCA patterns alone is not specific for the diagnosis of Nevin's Granulomatosis (WG) or microscopic polyangiitis. Decisions about treatment should not be based solely on ANCA IFA results. The International ANCA Group Consensus recommends follow up testing of positive sera with both OR-3 and MPO-ANCA enzyme immunoassays. As many as 5% serum samples are positive only by EIA. Ref. AM J Clin Pathol 1999;111:507-513. Performed at: CB Performed By: #### C BC #### [facility] [address] [place] [address] Dr. Tom Dotson IMMUNOGLOBULIN E, TOTALon Immunoglobulin E, Total 68 IU/mL Normal 6-495 [facility] Comment on above: Performed By: #### I GETOT #### [facility] [address] [place] [address] Dr. Tom Dotson ANGIOTENSION-CONVERTING ENZY ME (ELINOR)on 04-17-2022 ELINOR 28 U/L Normal 14-82 [facility] Comment on above: Performed By: #### A NGIOC #### [facility] [address] [place] [address] Dr. Tom Dotson CBC AUTO DIFFon 04-16-2022 BASO # 0.1 103/ul Normal 0.0-0.1 [facility] Comment on above: Performed By: #### I NFLUAB #### [facility] [address] [place] [address] Dr. Tom Dotson Basophils/100 WBC (Bld) 1.0 % Normal 0.2-2.0 [facility] Comment on above: Performed By: #### I NFLUAB #### [facility] [address] [place] [address] Dr. Tom Dotson EO # 0.0 103/ul Normal 0.0-0.7 [facility] Comment on above: Performed By: #### I NFLUAB #### [facility] [address] [place] [address] Dr. Tom Dotson Eosinophils/100 WBC (Bld) 0.1 % Critically low 0.9-7.0 [facility] Comment on above: Performed By: #### I NFLUAB #### [facility] [address] [place] [address] Dr. Tom Dotson Erythrocyte distribution width (RBC) [Ratio] 12.9 % Normal 11.0-15.0 [facility] Comment on above: Performed By: #### I NFLUAB #### [facility] [address] [place] [address] Dr. Tom Dotson Hematocrit (Bld) [Volume fraction] 44.8 % Normal 42.0-54.0 [facility] Comment on above: Performed By: #### I NFLUAB #### [facility] [address] [place] [address] Dr. Tom Dotson Hemoglobin (Bld) [Mass/Vol] 15.0 g/dL Normal 14.0-18.0 [facility] Comment on above: Performed By: #### I NFLUAB #### [facility] [address] [place] [address] Dr. Tom Dotson IG # 0.02 10e3/ul Normal 0.00-0.03 [facility] Comment on above: Performed By: #### I NFLUAB #### [facility] [address] [place] [address] Dr. Tom Dotson IG % 0.2 % Normal 0.0-0.5 [facility] Comment on above: Performed By: #### I NFLUAB #### [facility] [address] [place] [address] Dr. Tom Dotson LYMPH # 1.4 103/ul Normal 1.2-3.8 [facility] Comment on above: Performed By: #### I NFLUAB #### [facility] [address] [place] [address] Dr. Tom Dotson Lymphocytes/100 WBC (Bld) 17.6 % Critically low 20.5-60.0 [facility] Comment on above: Performed By: #### I NFLUAB #### [facility] [address] [place] [address] Dr. Tom Dotson MANUAL DIFF REQ NO Normal [facility] Comment on above: Performed By: #### I NFLUAB #### [facility] [address] [place] [address] Dr. Tom Dotson MCH (RBC) [Entitic mass] 30.9 pg Normal 25.9-34.0 [facility] Comment on above: Performed By: #### I NFLUAB #### [facility] [address] [place] [address] Dr. Tom Dotson MCHC (RBC) [Mass/Vol] 33.5 g/dL Normal 29.9-35.2 [facility] Comment on above: Performed By: #### I NFLUAB #### [facility] [address] [place] [address] Dr. Tom Dotson MCV (RBC) [Entitic vol] 92.2 fL Normal 80.0-94.0 [facility] Comment on above: Performed By: #### I NFLUAB #### [facility] [address] [place] [address] Dr. Tom Dotson MONO # 0.8 103/ul Normal 0.3-0.8 [facility] Comment on above: Performed By: #### I NFLUAB #### [facility] [address] [address] [address] Tom Dotson Monocytes/100 WBC (Bld) 9.6 % Normal 1.7-12.0 [facility] Comment on above: Performed By: #### I NFLUAB #### [facility] [address] [place] [address] Dr. Tom Dotson NEUT # 5.9 103/ul Normal 1.4-6.5 [facility] Comment on above: Performed By: #### I NFLUAB #### [facility] [address] [place] [address] Dr. Tom Dotson Neutrophils/100 WBC (Bld) 71.5 % Normal 43.0-75.0 [facility] Comment on above: Performed By: #### I NFLUAB #### [facility] [address] [place] [address] Dr. Tom Dotson Platelet mean volume (Bld) [Entitic vol] 9.9 fL Normal 9.5-13.5 [facility] Comment on above: Performed By: #### I NFLUAB #### [facility] [address] [place] [address] Dr. Tom Dotson PLT 325 103/ul Normal 150-450 [facility] Comment on above: Performed By: #### I NFLUAB #### [facility] [address] [place] [address] Dr. Tom Dotson RBC 4.86 106/ul Normal 4.70-6.10 [facility] Comment on above: Performed By: #### I NFLUAB #### [facility] [address] [place] [address] Dr. Tom Dotson WBC 8.2 103/ul Normal 4.0-11.0 [facility] Comment on above: Performed By: #### I NFLUAB #### [facility] [address] [place] [address] LUNG CANCER SCREENINGon [...] 2022-04-10 22:57 Normal [facility] CBC AUTO DIFFon 03-06-2022 BASO # 0.1 103/ul Normal 0.0-0.1 [facility] Comment on above: Performed By: #### C BC #### [facility] [address] [address] [address] Tom Dotson Basophils/100 WBC (Bld) 1.0 % Normal 0.2-2.0 [facility] Comment on above: Performed By: #### C BC #### [facility] [address] [address] [address] Tom Dotson EO # 2.5 103/ul Critically high 0.0-0.7 [facility] Comment on above: Performed By: #### C BC #### [facility] [address] [id number] Tom Dotson Eosinophils/100 WBC (Bld) 29.1 % Critically high 0.9-7.0 [facility] Comment on above: Performed By: #### C BC #### [facility] [address] [place] [address] Dr. Tom Dotson Erythrocyte distribution width (RBC) [Ratio] 12.8 % Normal 11.0-15.0 [facility] Comment on above: Performed By: #### C BC #### [facility] [address] [place] [address] Dr. Tom Dotson Hematocrit (Bld) [Volume fraction] 46.6 % Normal 42.0-54.0 [facility] Comment on above: Performed By: #### C BC #### [facility] [address] [place] [address] Dr. Tom Dotson Hemoglobin (Bld) [Mass/Vol] 14.4 g/dL Normal 14.0-18.0 [facility] Comment on above: Performed By: #### C BC #### [facility] [address] [place] [address] Dr. Tom Dotson IG # 0.04 10e3/ul Critically high 0.00-0.03 [facility] Comment on above: Performed By: #### C BC #### [facility] [address] [place] [address] Dr. Tom Dotson IG % 0.5 % Normal 0.0-0.5 [facility] Comment on above: Performed By: #### C BC #### [facility] [address] [place] [address] Dr. Tom Dotson LYMPH # 1.3 103/ul Normal 1.2-3.8 [facility] Comment on above: Performed By: #### C BC #### [facility] [address] [place] [address] Dr. Tom Dotson Lymphocytes/100 WBC (Bld) 15.1 % Critically low 20.5-60.0 [facility] Comment on above: Performed By: #### C BC #### [facility] [address] [place] [address] Dr. Tom Dotson MANUAL DIFF REQ NO Normal [facility] Comment on above: Performed By: #### C BC #### [facility] [address] [address] [address] Tom Dotson MCH (RBC) [Entitic mass] 29.5 pg Normal 25.9-34.0 [facility] Comment on above: Performed By: #### C BC #### [facility] [address] [address] [address] Tom Dotson MCHC (RBC) [Mass/Vol] 30.9 g/dL Normal 29.9-35.2 [facility] Comment on above: Performed By: #### C BC #### [facility] [address] [place] [address] Dr. Tom Dotson MCV (RBC) [Entitic vol] 95.5 fL Critically high 80.0-94.0 [facility] Comment on above: Performed By: #### C BC #### [facility] [address] [place] [address] Dr. Tom Dotson MONO # 0.8 103/ul Normal 0.3-0.8 [facility] Comment on above: Performed By: #### C BC #### [facility] [address] [place] [address] Dr. Tom Dotson Monocytes/100 WBC (Bld) 9.5 % Normal 1.7-12.0 [facility] Comment on above: Performed By: #### C BC #### [facility] [address] [place] [address] Dr. Tom Dotson NEUT # 3.9 103/ul Normal 1.4-6.5 [facility] Comment on above: Performed By: #### C BC #### [facility] [address] [place] [address] Dr. Tom Dotson Neutrophils/100 WBC (Bld) 44.8 % Normal 43.0-75.0 [facility] Comment on above: Performed By: #### C BC #### [facility] [address] [place] [address] Dr. Tom Dotson Platelet mean volume (Bld) [Entitic vol] 10.2 fL Normal 9.5-13.5 [facility] Comment on above: Performed By: #### C BC #### [facility] [address] [place] [address] Dr. Tom Dotson PLT 328 103/ul Normal 150-450 [facility] Comment on above: Performed By: #### C BC #### [facility] [address] [place] [address] Dr. Tom Dotson RBC 4.88 106/ul Normal 4.70-6.10 [facility] Comment on above: Performed By: #### C BC #### [facility] [address] [place] [address] Dr. Tom Dotson WBC 8.7 103/ul Normal 4.0-11.0 [facility] Comment on above: Performed By: #### C BC #### [facility] [address] [place] [address] Dr. Tom Dotson DIFFERENTIAL MANUALon 2021 ATYPICAL LYMPH # 0.09 103/ul Normal [facility] Comment on above: Performed By: #### D IFF #### [facility] [address] [place] [address] Dr. Tom Dotson ATYPICAL LYMPH % 1 % Normal [facility] Comment on above: Performed By: #### D IFF #### [facility] [address] [place] [address] Dr. Tom Dotson BAND # 0.0 103/ul Normal 0.0-0.3 [facility] Comment on above: Performed By: #### D IFF #### [facility] [address] [place] [address] Dr. Tom Dotson BAND % 0 % Normal 0-5 [facility] Comment on above: Performed By: #### D IFF #### [facility] [address] [place] [address] Dr. Tom Dotson BASOM # 0.00 103/ul Normal 0.00-0.10 [facility] Comment on above: Performed By: #### D IFF #### [facility] [address] [place] [address] Dr. Yilan Dotson BASOM % 0.0 % Critically low 0.2-2.0 The [facility] Comment on above: Performed By: #### D IFF #### [facility] [address] [address] [address] Tom Dotson BLAST # Normal [facility] Comment on above: Performed By: #### D IFF #### [facility] [address] [address] [address] Tom Dotson BLAST % Normal [facility] Comment on above: Performed By: #### D IFF #### [facility] [address] [place] [address] Dr. Tom Dotson CORRECTED WBC Normal 4.0-11.0 [facility] Comment on above: Performed By: #### D IFF #### [facility] [address] [place] [address] Dr. Tom Dotson EOS # 1.22 103/ul Critically high 0.00-0.70 [facility] Comment on above: Performed By: #### D IFF #### [facility] [address] [place] [address] Dr. Tom Dotson EOS% 14.0 % Critically high 0.9-7.0 [facility] Comment on above: Performed By: #### D IFF #### [facility] [address] [place] [address] Dr. Tom Dotson LYMPHM # 1.91 103/ul Normal 1.20-3.80 [facility] Comment on above: Performed By: #### D IFF #### [facility] [address] [place] [address] Dr. Tom Dotson LYMPHM% 22.0 % Normal 20.5-60.0 [facility] Comment on above: Performed By: #### D IFF #### [facility] [address] [place] [address] Dr. Tom Dotson METAMYELOCYTE # Normal [facility] Comment on above: Performed By: #### D IFF #### [facility] [address] [place] [address] Dr. Tom Dotson METAMYELOCYTE % Normal [facility] Comment on above: Performed By: #### D IFF #### [facility] [address] [place] [address] Dr. Tom Dotson MONOM# 0.52 103/ul Normal 0.30-0.80 [facility] Comment on above: Performed By: #### D IFF #### [facility] [address] [place] [address] Dr. Tom Dotson MONOM% 6.0 % Normal 1.7-12.0 [facility] Comment on above: Performed By: #### D IFF #### [facility] [address] [place] [address] Dr. Tom Dotson MYELOCYTE # Normal [facility] Comment on above: Performed By: #### D IFF #### [facility] [address] [place] [address] Dr. Tom Dotson MYELOCYTE % Normal [facility] Comment on above: Performed By: #### D IFF #### [facility] [address] [place] [address] Dr. Tom Dotson NRBC Normal [facility] Comment on above: Performed By: #### D IFF #### [facility] [address] [place] [address] Dr. Tom oDtson SEG # 4.96 103/ul Normal 1.40-6.50 [facility] Comment on above: Performed By: #### D IFF #### [facility] [address] [place] [address] Dr. Tom Dotson SEG % 57.0 % Normal 43.0-75.0 [facility] Comment on above: Performed By: #### D IFF #### [facility] [address] [place] [address] Dr. Tom Dotson WBC 8.7 103/ul Normal 4.0-11.0 [facility] Comment on above: Performed By: #### D IFF #### [facility] [address] [place] [address] Dr. Tom Dotson LIPID PROFILEon 03-06-2022 CHOL-HDL RATIO NORM SEE BELOW Normal [facility] Comment on above: Result Comment: 3.3 - 4.4 LOW RISK 4.4 - 7.1 AVERAGE RISK 7.1 - 11.0 MODERATE RISK >11.0 HIGH RISK Performed By: #### I NFLUAB #### [facility] [address] [address] [address] Tom Dotson Cholesterol [Mass/Vol] 135 mg/dL Normal <=200 [facility] Comment on above: Performed By: #### I NFLUAB #### [facility] [address] [address] [address] Tom Dotson Cholesterol in HDL [Mass/Vol] 51 mg/dL Normal 40-60 [facility] Comment on above: Performed By: #### I NFLUAB #### [facility] [address] [address] [address] Tom Dotson Cholesterol in LDL [Mass/Vol] 74.4 mg/dL Normal [facility] Comment on above: Performed By: #### I NFLUAB #### [facility] [address] [address] [address] Tom Dotson Cholesterol.total/Ch olesterol in HDL [Mass ratio] 2.6 {ratio} Normal [facility] Comment on above: Performed By: #### I NFLUAB #### [facility] [address] [address] [address] Tom Dotson HDL NORMAL > or = 60 mg/dl - LO W CARDIOVASCULAR RISK <40 mg/dl - HIGH CARDIOVASCULAR RISK Normal [facility] Comment on above: Performed By: #### I NFLUAB #### [facility] [address] [address] [address] Tom Dotson LDL CALC NORMAL SEE BELOW Normal [facility] Comment on above: Result Comment: <100 mg/dl OPTIMAL 100 - 129 mg/dl NEAR OR ABOVE OPTIMAL 130 - 159 mg/dl BORDERLINE HIGH 160 - 189 mg/dl HIGH >190 mg/dl VERY HIGH Performed By: #### I NFLUAB #### [facility] [address] [address] [address] Tom Dotson Triglyceride [Mass/Vol] 48 mg/dL Normal <=150 [facility] Comment on above: Performed By: #### I NFLUAB #### [facility] [address] [place] [address] Dr. Tom Dotson VLDL CALC 9.6 mg/dL Normal [facility] Comment on above: Performed By: #### I NFLUAB #### [facility] [address] [place] [address] Dr. Tom Dotson PROF 14(COMP METB)on 022 Albumin [Mass/Vol] 3.8 g/dL Normal 3.4-5.0 [facility] Comment on above: Performed By: #### I NFLUAB #### [facility] [address] [place] [address] Dr. Tom Dotson Albumin/Globulin [Mass ratio] 1.1 {ratio} Normal [facility] Comment on above: Performed By: #### I NFLUAB #### [facility] [address] [place] [address] Dr. Tom Dotson ALP [Catalytic activity/Vol] 62 U/L Normal 46-116 [facility] Comment on above: Performed By: #### I NFLUAB #### [facility] [address] [place] [address] Dr. Tom Dotson ALT [Catalytic activity/Vol] 25 U/L Normal 16-63 [facility] Comment on above: Performed By: #### I NFLUAB #### [facility] [address] [place] [address] Dr. Tom Dotson Anion gap [Moles/Vol] 9.8 mmol/L Normal [facility] Comment on above: Performed By: #### I NFLUAB #### [facility] [address] [place] [address] Dr. Tom Dotson AST [Catalytic activity/Vol] 15 U/L Normal 15-37 [facility] Comment on above: Performed By: #### I NFLUAB #### [facility] [address] [place] [address] Dr. Tom Dotson Bilirubin [Mass/Vol] 0.9 mg/dL Normal 0.2-1.0 [facility] Comment on above: Performed By: #### I NFLUAB #### [facility] [address] [place] [address] Dr. Tom Dotson Calcium [Mass/Vol] 8.8 mg/dL Normal 8.5-10.1 [facility] Comment on above: Performed By: #### I NFLUAB #### [facility] [address] [place] [address] Dr. Tom Dotson Chloride [Moles/Vol] 102 mmol/L Normal 98-107 [facility] Comment on above: Performed By: #### I NFLUAB #### [facility] [address] [place] [address] Dr. Tom Dotson CO2 [Moles/Vol] 30.5 mmol/L Normal 21.0-32.0 [facility] Comment on above: Performed By: #### I NFLUAB #### [facility] [address] [place] [address] Dr. Tom Dotson Creatinine [Mass/Vol] 0.95 mg/dL Normal 0.70-1.30 [facility] Comment on above: Performed By: #### I NFLUAB #### [facility] [address] [place] [address] Dr. Tom Dotson EGFR-AF GABONESE >60 Normal >=60 [facility] Comment on above: Performed By: #### I NFLUAB #### [facility] [address] [place] [address] Dr. Tom Dotson EGFR-NON AF GABONESE >60 Normal >=60 [facility] Comment on above: Performed By: #### I NFLUAB #### [facility] [address] [place] [address] Dr. Tom Dotson Globulin (S) [Mass/Vol] 3.4 g/dL Normal [facility] Comment on above: Performed By: #### I NFLUAB #### [facility] [address] [place] [address] Dr. Tom Dotson Glucose [Mass/Vol] 85 mg/dL Normal 74-106 [facility] Comment on above: Performed By: #### I NFLUAB #### [facility] [address] [address] [address] Tom Dotson Potassium [Moles/Vol] 4.3 mmol/L Normal 3.5-5.1 [facility] Comment on above: Performed By: #### I NFLUAB #### [facility] [address] [address] [address] Tom Dotson Protein [Mass/Vol] 7.2 g/dL Normal 6.4-8.2 [facility] Comment on above: Performed By: #### I NFLUAB #### [facility] [address] [place] [address] Dr. Tom Dotson Sodium [Moles/Vol] 138 mmol/L Normal 136-145 [facility] Comment on above: Performed By: #### I NFLUAB #### [facility] [address] [place] [address] Dr. Tom Dotson Urea nitrogen [Mass/Vol] 14.0 mg/dL Normal 7.0-18.0 [facility] Comment on above: Performed By: #### I NFLUAB #### [facility] [address] [place] [address] Dr. Tom Dotson Urea nitrogen/Creatinine [Mass ratio] 14.7 mg/mg Normal [facility] Comment on above: Performed By: #### I NFLUAB #### [facility] [address] [place] [address] Dr. Tom Dotson TSHon 03-06-2022 TSH 1.010 uIU/mL Normal 0.358-3.740 [facility] Comment on above: Performed By: #### I NFLUAB #### [facility] [address] [place] [address] Dr. Tom Dotson Hepatic Panelon 09-02-2019 Albumin [Mass/Vol] 3.2 g/dL Normal 3.2-5.5 [facility] Comment on above: Performed By: #### H EPATIC, LIPID, TSH3 wRFLX, [id number] #### [facility] [address] [place] [address] Albumin/Globulin [Mass ratio] 1.1 {ratio} Normal [facility] Comment on above: Performed By: #### H EPATIC, LIPID, TSH3 wRFLX, [id number] #### [address] ALP [Catalytic activity/Vol] 38 U/L Normal 32-92 [facility] Comment on above: Performed By: #### H EPATIC, LIPID, TSH3 wRFLX, [id number] #### [address] ALT [Catalytic activity/Vol] 14 U/L Normal 10-60 [facility] Comment on above: Performed By: #### H EPATIC, LIPID, TSH3 wRFLX, [id number] #### [address] AST [Catalytic activity/Vol] 13 U/L Normal 10-42 [facility] Comment on above: Performed By: #### H EPATIC, LIPID, TSH3 wRFLX, [id number] #### [address] Bilirubin [Mass/Vol] 0.9 mg/dL Normal 0.3-1.2 [facility] Comment on above: Performed By: #### H EPATIC, LIPID, TSH3 wRFLX, [id number] #### [facility] [address] [place] [address] Bilirubin,Indirect 0.8 mg/dL Normal [facility] Comment on above: Performed By: #### H EPATIC, LIPID, TSH3 wRFLX, [id number] #### [facility] [address] [place] [address] Bilirubin.direct [Mass/Vol] 0.1 mg/dL Normal 0.0-0.4 [facility] Comment on above: Performed By: #### H EPATIC, LIPID, TSH3 wRFLX, [id number] #### [address] Globulin (S) [Mass/Vol] 2.9 g/dL Normal [facility] Comment on above: Performed By: #### H EPATIC, LIPID, TSH3 wRFLX, [id number] #### [facility] [address] Protein [Mass/Vol] 6.1 g/dL Normal 6.1-7.9 [facility] Comment on above: Performed By: #### H EPATIC, LIPID, TSH3 wRFLX, [id number] #### [facility] [address] Lipid Panelon 09-02-2019 Cholesterol [Mass/Vol] 158 mg/dL Normal 140-200 [facility] Comment on above: Result Comment: Chol less than 200 mg/dl low risk Chol 201-239 mg/dl borderline risk Chol 240 mg/dl and greater high risk Performed By: #### H EPATIC, LIPID, TSH3 wRFLX, [id number] #### [facility] [address] Cholesterol in HDL [Mass/Vol] 61 mg/dL Normal 29-71 [facility] Comment on above: Result Comment: HDL CHOL ATP-III CLASSIFICATION Cardiovascular Risk HDL > or equal to 60 mg/dL LOW HDL < 40 mg/dL HIGH Performed By: #### H EPATIC, LIPID, TSH3 wRFLX, [id number] #### [facility] [address] Cholesterol.total/Ch olesterol in HDL [Mass ratio] 2.6 {ratio} Normal <5.0 [facility] Comment on above: Performed By: #### H EPATIC, LIPID, TSH3 wRFLX, [id number] #### [facility] [address] [place] [address] [place] LDL Cholesterol,Calculat ed 84 mg/dL Normal 0-100 [facility] Comment on above: Result Comment: LDL ATP III CLASSIFICATION LDL less than 100 mg/dL Optimal LDL 100-129 mg/dL Near or above optimal LDL 130-159 mg/dL Borderline high LDL 160-189 mg/dL High LDL greater than 189 mg/dL Very high Performed By: #### H EPATIC, LIPID, TSH3 wRFLX, [id number] #### [facility] [address] Triglyceride w/Reflex 63 mg/dL Normal 35-149 [facility] Comment on above: Result Comment: TRIG ATP III CLASSIFICATION TRIG less than 150 mg/dL Normal TRIG 150-199 mg/dL Borderline high TRIG 200-500 mg/dL High TRIG greater than 500 mg/dL Very high Standard traceable to the Center for Disease Conrtrol and Prevention (CDC) test method. Performed By: #### H EPATIC, LIPID, TSH3 wRFLX, [id number] #### [facility] [address] VLDL CHOLESTEROL 12 mg/dL Normal [facility] Comment on above: Performed By: #### H EPATIC, LIPID, TSH3 wRFLX, [id number] #### [facility] [address] [place] [address] [place] Thyroid Stim Hormone w/Rflxo n 09-02-2019 Thyroid Stim Hormone w/Rflx 1.92 u[iU]/mL Normal 0.45-5.33 [facility] Comment on above: Performed By: #### H EPATIC, LIPID, TSH3 wRFLX, [id number] #### [facility] [address] [place] [address] [place] Vitamin D 25 Hydroxy Totalon 09-02-2019 Vitamin D 25 Hydroxy Total 11.9 ng/mL Low 30-100 [facility] Comment on above: Result Comment: DAE MIN D STATUS 25(OH)VITAMIN D RANGE (ng/mL) Deficient <20 Insufficient 20 to <30 Sufficient 30 to 100 Reference: Darrion MF,Zane NC, Mason-Jelani AVELAR, et al. Evaluation,treatment, and prevention of vitamin D deficiency; an Endocrine Society clinical practice guideline. JCEM. 2010; 96(7):1911-30. PERFORMED BY: [place] [address] PATHOLOGIST WILDLIFE REMOVAL SPECIALIST MIGUELINA FLOOD M.D. Performed By: #### H EPATIC, LIPID, TSH3 wRFLX, [id number] #### [facility] [address] Vital Signs Date Time Vital Sign Value Performing Clinician Madan mayer 10-30-2023 10:00-0500 Body height 185.4 cm Azul Damien REAL ESTATE ATTORNEY Work Phone: [facility] 10-30-2023 10:00-0500 Body mass index (BMI) [Ratio] 26.84 kg/m2 Azulailyn Quezada REAL ESTATE ATTORNEY Work Phone: [facility] 10-30-2023 10:00-0500 Body temperature 97.11 [degF] Azul Maria Luzz REAL ESTATE ATTORNEY Work Phone: [facility] 10-30-2023 10:00-0500 Body weight 92.26 kg Azul Maria Luzz REAL ESTATE ATTORNEY Work Phone: [facility] 10-30-2023 10:00-0500 Diastolic blood pressure 78 mm[Hg] Azul Maria Luzz REAL ESTATE ATTORNEY Work Phone: [facility] 10-30-2023 10:00-0500 Heart rate 83 /min Azul Rosaholz REAL ESTATE ATTORNEY Work Phone: [facility] 10-30-2023 10:00-0500 Respiratory rate 16 /min Azul Rosaholz REAL ESTATE ATTORNEY Work Phone: [facility] 10-30-2023 10:00-0500 SaO2% (BldA) [Mass fraction] 94 % Azul Maria Luzz REAL ESTATE ATTORNEY Work Phone: [facility] 10-30-2023 10:00-0500 Systolic blood pressure 138 mm[Hg] Azul Leidyhholz REAL ESTATE ATTORNEY Work Phone: [facility] Encounters Encounter Date Encounter Type Care Provider Facility Start: 05-31-2024 End: 05-31-2024 ambulatory IBETH TORRES Not Available Start: 05-19-2024 End: 05-19-2024 ambulatory AZUL DAMIEN Not Available Start: 02-18-2024 End: 02-18-2024 ambulatory AZUL AICHHOLZ Not Available Start: 12-15-2023 End: 12-15-2023 ambulatory AZUL SILVERMANHOLZ Not Available Start: 11-13-2023 End: 11-13-2023 ambulatory AZUL AICaMxHOLZ Not Available Start: 10-30-2023 End: 10-30-2023 Office outpatient visit 15 minutes Azul Quezada REAL ESTATE ATTORNEY Work Phone: [facility] Comment on above: Influenza (Primary D x); Marijuana abuse; Smoker; BMI 26.0-26.9,adult; Centrilobular emphysema (CMS/HCC) Start: 10-30-2023 End: 10-30-2023 ambulatory AZLU SILVERMANHOLZ Not Available Start: 10-21-2023 Clinisync Result [...] Comment on above: Performed By: #### P [facility] #### [facility] [address] [address] [address] Tom Dotson Plan of Treatment Date Care Activity Detail Author Start: 08-04-2024 Screening for malign ant neoplasm of colon [facility] Start: 03-21-2024 Influenza vaccination Influenza Vacc ine (#1) [facility] Comment on above: Postponed from 05/23 (Patient Refused) Start: 11-13-2023 End: 11-13-2023 Patient encounter procedure 11/13/2023 9:40 AM EST Office Visit [facility] [address] [place] [id number] Azul Quezada, ORACIO [address] [place] [address] [facility] Start: 10-30-2023 End: 10-30-2023 Patient encounter procedure 10/30/2023 10:00 AM EST Office Visit [facility] [address] [place] [id number] Azul Quezada, ORACIO [address] [place] [address] [facility] Start: 2023 Influenza vaccination Influenza Vacc ine (#1) [facility] Start: 1960 Medicare Annual Well ness (AWV) Medicare Annual Wellness (AWV) [facility] Start: 1960 Screening for malign ant neoplasm of colon [facility] BLOOD CULTURE 1 BLOOD CULTURE 1 Lab Routine 10/21/2023 12:27 PM EST [facility] BLOOD CULTURE 2 BLOOD CULTURE 2 Lab Routine 10/21/2023 12:30 PM EST [facility] Immunizations Immunization Date Immunization Notes Care Provider [facility] 2020 influenza, live, intranasal, quadrivalent Azul Rosaholz REAL ESTATE ATTORNEY Work Phone: [facility] 2020 influenza virus vacc ine, unspecified formulation Generic Provider [facility] 08-04-2019 influenza, high dose seasonal, preservative-free Azul Aicmaxholz REAL ESTATE ATTORNEY Work Phone: [facility] Payers Date Payer Category Payer Medicare [id number] 1993 Medicare [id number] 1960 Unknown [id number] 2.16.84 [id number] 1960 Unknown [id number] 2.16.84 [id number] 1960 Unknown [id number] 2.16.84 [id number] 1960 Unknown [id number] 2.16.84 [id number] 1960 Unknown [id number] 2.16.84 [id number] 1960 Unknown [id number] 2.16.84 [id number] 1960 Unknown [id number] 2.16.84 [id number] 1960 Unknown [id number] 2.16.84 [id number] 1960 Unknown [id number] 2.16.84 [id number] 1960 Unknown [id number] 2.16.84 [id number] 1959 Medicaid [id number] 1959 Unknown [id number] Social History Date Type Detail Facility Tobacco smoking stat [facility] [place] Tobacco smoking consumption unknown [facility] Start: 1960 Sex Assigned At Not on file [facility] Start: 10-30-2023 Gender identity Not on file [facility] Start: 10-30-2023 Tobacco smoking stat [facility] [place] Ex-smoker [facility] End: 03-22-2019 History of [...] complaint on file. HPI: Recent hospitalization at [facility] for 3 days d/t influenza. Does [...] (CMS/HCC) COVID-19 07/2019 CVA (cerebral vascular accident) ([facility]) Degenerative cervical disc Depression with anxiety Insomnia Marijuana abuse 10/30/2023 Multiple pulmonary nodules Neck mass 2013 Osteoarthritis Papule of skin Pigmented skin lesion of uncertain nature Rheumatic fever Stroke ([facility]) 07/2020 Testicle lump Tourette's ([facility]) Vertebral artery occlusion Vocal cord polyp Past Surgical History: Procedure Laterality Date ADENOIDECTOMY CAROTID STENT Right 09/2019 stent, RT carotid CT GUIDED TRANSVAGINAL TRANSRECTAL FLUID DRAIN 06/09/2020 CT GUIDED TRANSVAGINAL TRANSRECTAL FLUID DRAIN 06/09/2020 OTHER SURGICAL HISTORY Removal of Polyp Vocal area and Vocal Cord cyst OR EXCISION THYROGLOSSAL DUCT CYST/SINUS Procedure:DL, e/o thyroglossal [...] section and content) DATE CREATED AUTHOR 09/04/2019 [facility] DATE CREATED AUTHOR AUTHOR'S ORGANIZ ATION 09/30/2022 [facility] pital DATE CREATED AUTHOR AUTHOR'S ORGANIZ ATION 06/01/2024 [facility] dical Specialists EP[employer] Care Teams (unrecognized sec tion and content) Tankroom Tender Relationship Specialty Start Date End Date Kiko Zurita MD PCP - General Family Medicine 04/07/23 Azul Quezada NP [address] [place] [address] Referring Physician Nurse Practitioner 04/07/23 Tankroom Tender Relationship Specialty Start Date End Date Kiko Zurita MD [address] [place] [address] PCP - General Family Medicine 10/24/23 Azul Quezada NP [address] [place] [address] Referring Physician Nurse Practitioner 04/07/23 [...] BE BASED ON THE PRIMARY CLINICAL RECORDS. [employer] [facility]. provides no warranty or guarantee of the accuracy or completeness of information in this document.
[2024-06-15 06:18] VITALS: BP 114/86; PULSE 83; TEMP 36.3; O2SAT 94; BMI 23.0
[2024-06-15] MEDS: LACTATED RINGER'S SOLUTION 1,000 ML 50 ML IV (07:02)
[2024-06-15 07:52] VITALS: BP 102/51; PULSE 86; TEMP 36.3; O2SAT 96
--- NOTE | 2024-06-15 07:58 | W.PM.PROCNOT ---
Date of procedure: 06/15/24 Pre-op diagnosis: screening c-scope Post-op diagnosis: other ([facility]ina diverticulosis ) Procedure: Previous colonoscopy: 2019 procedure: screening colonoscopy The patient was given IV conscious sedation.? The patient's SPO2 remained above 90% throughout the procedure. The colonoscope was inserted per rectum and advanced under direct vision to the cecum without difficulty.? The prep was moderate to poor.? Findings: Terminal ileum os: normal Cecum/Ascending colon: normal aside for diverticula Transverse colon: normal aside for diverticula Descending/Sigmoid colon: normal aside for diverticula Rectum/Anus: examined in normal and retroflexed positions and was normal Withdrawal Time was (minutes): 10 The colon was decompressed and the scope was removed.? The patient tolerated the procedure well. Recommendations/Plan: 1.? Lifestyle and dietary modifications as discussed 2.? F/U in 5 years 3.? Discussed with the family Anesthesia: MAC Surgeon: Kleber Argueta Estimated blood loss (mL): 0 Pathology: none sent Condition: stable Disposition: PACU
[2024-06-15 08:07] VITALS: BP 119/78; PULSE 78; O2SAT 94
[2024-06-15 08:22] VITALS: BP 117/63; PULSE 75; O2SAT 95
== END 2024-06-15 08:22 | disposition home or self-care (01) ==
PROVIDERS: PCP Nurse Practitioner; Visit Provider Surgery
PROC: (CPT G0121; principal; 2024-06-15 07:30)
DX: Z12.11 Encounter for screening for malignant neoplasm of colon (principal); K57.30 Diverticulosis of large intestine without perforation or abscess without bleeding; Z86.010 Personal history of colon polyps; Z87.891 Personal history of nicotine dependence; J44.9 Chronic obstructive pulmonary disease, unspecified; E78.5 Hyperlipidemia, unspecified
CPT/HCPCS: G0121; J2704

== ENCOUNTER 2024-07-06 11:56 | Outpatient (OUT) | payer MEDICARE, SELFPAY ==
--- OUTSIDE RECORDS SUMMARY | 2024-07-06 12:02 | XMS_ITS | CCD ---
Author Organization [facility] Care Team Providers Care Propellant Charge Loader Name Role Phone SAMSA, JAMESON Admitting Unavailable SAMSA, JAMESON Attending Unavailable AICHHOLZ, PHONOGRAPH NEEDLE TIP MAKER AZUL Referring Unavailable AICHHOLZ, PHONOGRAPH NEEDLE TIP MAKER AZUL Primary Care Unavailable SAMSA, JAMESON Consulting Unavailable AICHHOLZ, PHONOGRAPH NEEDLE TIP MAKER AZUL Admitting Unavailable AICHHOLZ, PHONOGRAPH NEEDLE TIP MAKER AZUL Attending Unavailable AICHHOLZ, PHONOGRAPH NEEDLE TIP MAKER AZUL Primary Care Unavailable AICHHOLZ, PHONOGRAPH NEEDLE TIP MAKER AZUL Consulting Unavailable SAMSA, JAMESON Admitting Unavailable SAMSA, JAMESON Attending Unavailable AICHHOLZ, PHONOGRAPH NEEDLE TIP MAKER AZUL Primary Care Unavailable WHITNEY, DR YARIEL Figueroa Consulting Unavailable SAMSA, JAMESON Consulting Unavailable AICHHOLZ, PHONOGRAPH NEEDLE TIP MAKER AZUL Primary Care Unavailable DAREN, DR MAURO Admitting Unavailable DAREN, DR MAURO Attending Unavailable WHITNEY, DR YARIEL Figueroa Consulting Unavailable DAREN, DR MAURO Consulting Unavailable Yudith YANG, Kiko Primary Care Provider [phone] [employer], Azul Unavailable Kiko Zurita MD Primary Care [...] B (Bld) [Mass/Vol] 42.0 pg/mL Normal <=900.0 [facility] Comment on above: Performed By: #### I NFLUAB #### [facility] [address] [place] [address] Dr. Tom Dotson CBC AUTO DIFFon 09-25-2022 BASO # 0.1 103/ul Normal 0.0-0.1 [facility] Comment on above: Performed By: #### C BC #### [facility] [address] [place] [address] Dr. Tom Dotson Basophils/100 WBC (Bld) 0.8 % Normal 0.2-2.0 [facility] Comment on above: Performed By: #### C BC #### [facility] [address] [place] [address] Dr. Tom Dotson EO # 0.0 103/ul Normal 0.0-0.7 [facility] Comment on above: Performed By: #### C BC #### [facility] [address] [place] [address] Dr. Tom Dotson Eosinophils/100 WBC (Bld) 0.0 % Critically low 0.9-7.0 [facility] Comment on above: Performed By: #### C BC #### [facility] [address] [place] [address] Dr. Tom Dotson Erythrocyte distribution width (RBC) [Ratio] 12.4 % Normal 11.0-15.0 [facility] Comment on above: Performed By: #### C BC #### [facility] [address] [place] [address] Dr. Tom Dotson Hematocrit (Bld) [Volume fraction] 43.6 % Normal 42.0-54.0 [facility] Comment on above: Performed By: #### C BC #### [facility] [address] [place] [address] Dr. Tom Dotson Hemoglobin (Bld) [Mass/Vol] 14.3 g/dL Normal 14.0-18.0 [facility] Comment on above: Performed By: #### C BC #### [facility] [address] [place] [address] Dr. Tom Dotson IG # 0.02 10e3/ul Normal 0.00-0.03 [facility] Comment on above: Performed By: #### C BC #### [facility] [address] [place] [address] Dr. Tom Dotson IG % 0.3 % Normal 0.0-0.5 [facility] Comment on above: Performed By: #### C BC #### [facility] [address] [place] [address] Dr. Tom Dotson LYMPH # 1.4 103/ul Normal 1.2-3.8 [facility] Comment on above: Performed By: #### C BC #### [facility] [address] [place] [address] Dr. Tom Dotson Lymphocytes/100 WBC (Bld) 17.3 % Critically low 20.5-60.0 [facility] Comment on above: Performed By: #### C BC #### [facility] [address] [place] [address] Dr. Tom Dotson MANUAL DIFF REQ NO Normal [facility] Comment on above: Performed By: #### C BC #### [facility] [address] [place] [address] Dr. Tom Dotson MCH (RBC) [Entitic mass] 29.8 pg Normal 25.9-34.0 [facility] Comment on above: Performed By: #### C BC #### [facility] [address] [place] [address] Dr. Tom Dotson MCHC (RBC) [Mass/Vol] 32.8 g/dL Normal 29.9-35.2 [facility] Comment on above: Performed By: #### C BC #### [facility] [address] [place] [address] Dr. Tom Dotson MCV (RBC) [Entitic vol] 90.8 fL Normal 80.0-94.0 [facility] Comment on above: Performed By: #### C BC #### [facility] [address] [place] [address] Dr. Tom Dotson MONO # 0.7 103/ul Normal 0.3-0.8 [facility] Comment on above: Performed By: #### C BC #### [facility] [address] [place] [address] Dr. Tom Dotson Monocytes/100 WBC (Bld) 9.4 % Normal 1.7-12.0 [facility] Comment on above: Performed By: #### C BC #### [facility] [address] [place] [address] Dr. Tom Dotsno NEUT # 5.7 103/ul Normal 1.4-6.5 [facility] Comment on above: Performed By: #### C BC #### [facility] [address] [place] [address] Dr. Tom Dotson Neutrophils/100 WBC (Bld) 72.2 % Normal 43.0-75.0 [facility] Comment on above: Performed By: #### C BC #### [facility] [address] [place] [address] Dr. Tom Dotson Platelet mean volume (Bld) [Entitic vol] 9.6 fL Normal 9.5-13.5 [facility] Comment on above: Performed By: #### C BC #### [facility] [address] [place] [address] Dr. Tom Dotson PLT 331 103/ul Normal 150-450 [facility] Comment on above: Performed By: #### C BC #### [facility] [address] [place] [address] Dr. Tom Dotson RBC 4.80 106/ul Normal 4.70-6.10 [facility] Comment on above: Performed By: #### C BC #### [facility] [address] [place] [address] Dr. Tom Dotson WBC 7.8 103/ul Normal 4.0-11.0 [facility] Comment on above: Performed By: #### C BC #### [facility] [address] [place] [address] Dr. Tom Dotson CULTURE BLOODon 09-25-2022 Microscopic examination of blood, culture Culture Observations: NO GROWTH AT 5 DAYS. [facility] Comment on above: Performed By: #### I NFLUAB #### [facility] [address] [place] [address] Dr. Tom Dotson Microscopic examination of blood, culture Culture Observations: NO GROWTH AT 5 DAYS. Normal [facility] Comment on above: Performed By: #### I NFLUAB #### [facility] [address] [place] [address] Dr. Tom Dotson [facility] SARS-CoV-2 (COVID-19) RNA OLGA+probe Ql (Unsp spec) Not detected Normal NOT DETECTED [facility] Comment on above: Result Comment: When diagnostic [...] for this test is supported by the [place] of Health and Human Service's declaration that [...] By: #### C VDTBH #### [facility] [address] [place] [address] Dr. Tom Dotson INFLUENZA A AND B AGon 09-25 INFLUANEGH SEE BELOW Normal [facility] Comment on above: Result Comment: Nega tive for Flu A protein angiten. Infection due to Flu A cannot be ruled out. Flu A angiten in the sample may be below the detection limit of the test. Performed By: #### I NFLUAB #### [facility] [address] [place] [address] Dr. Tom Dotson INFLUBNEG SEE BELOW Normal [facility] Comment on above: Result Comment: Nega tive for Flu B protein antigen. Infection due to Flu B cannot be ruled out. Flu B antigen in the sample may be below the detection limit of the test. Performed By: #### I NFLUAB #### [facility] [address] [place] [address] Dr. Tom Dotson INFLUENZA A AG Negative Normal NEGATIVE SEE COMMENT [facility] Comment on above: Performed By: #### I NFLUAB #### [facility] [address] [place] [address] Dr. Tom Dotson INFLUENZA B AG Negative Normal NEGATIVE SEE COMMENT [facility] Comment on above: Performed By: #### I NFLUAB #### [facility] [address] [place] [address] Dr. Tom Dotson LACTATE/LACTIC ACIDon 2022 Lactate [Moles/Vol] 0.7 mmol/L Normal 0.4-1.9 [facility] Comment on above: Performed By: #### L ACT #### [facility] [address] [place] [address] Dr. Tom Dotson PROF CHEM 8 (BAS METB)on Anion gap [Moles/Vol] 9.3 mmol/L Normal [facility] Comment on above: Performed By: #### H STROPN, BMP, BNP #### [facility] [address] [place] [address] Dr. Tom Dotson Calcium [Mass/Vol] 8.8 mg/dL Normal 8.5-10.1 [facility] Comment on above: Performed By: #### H STROPN, BMP, BNP #### [facility] [address] [place] [address] Dr. Tom Dotson Chloride [Moles/Vol] 103 mmol/L Normal 98-107 [facility] Comment on above: Performed By: #### H STROPN, BMP, BNP #### [facility] [address] [place] [address] Dr. Tom Dotson CO2 [Moles/Vol] 31.1 mmol/L Normal 21.0-32.0 [facility] Comment on above: Performed By: #### H STROPN, BMP, BNP #### [facility] [address] [place] [address] Dr. Tom Dotson Creatinine [Mass/Vol] 0.77 mg/dL Normal 0.70-1.30 [facility] Comment on above: Performed By: #### H STROPN, BMP, BNP #### [facility] [address] [address] [address] Tom Dotson EGFR-AF SAUDI ARABIAN >60 Normal >=60 [facility] Comment on above: Performed By: #### H STROPN, BMP, BNP #### [facility] [address] [address] [address] Tom Dotson EGFR-NON AF SAUDI ARABIAN >60 Normal >=60 [facility] Comment on above: Performed By: #### H STROPN, BMP, BNP #### [facility] [address] [address] [address] Tom Dotson Glucose [Mass/Vol] 98 mg/dL Normal 74-106 [facility] Comment on above: Performed By: #### H STROPN, BMP, BNP #### [facility] [address] [address] [address] Tom Dotson Potassium [Moles/Vol] 4.4 mmol/L Normal 3.5-5.1 [facility] Comment on above: Performed By: #### H STROPN, BMP, BNP #### [facility] [address] [address] [address] Tom Dotson Sodium [Moles/Vol] 139 mmol/L Normal 136-145 [facility] Comment on above: Performed By: #### H STROPN, BMP, BNP #### [facility] [address] [address] [address] Tom Dotson Urea nitrogen [Mass/Vol] 13.0 mg/dL Normal 7.0-18.0 [facility] Comment on above: Performed By: #### H STROPN, BMP, BNP #### [facility] [address] [address] [address] Tom Dotson Urea nitrogen/Creatinine [Mass ratio] 16.9 mg/mg Normal [facility] Comment on above: Performed By: #### H STROPN, BMP, BNP #### [facility] [address] [place] [address] Dr. Tom Dotson TROPONIN, HIGH SENSITIVITYon 09-25-2022 HSTROP 7.4 pg/mL Normal 4.0-76.1 [facility] Comment on above: Result Comment: CUT- OFF POINTS HAVE BEEN ESTABLISHED BASED ON THE FOURTH UNIVERSAL DEFINITIONS OF MYOCARDIAL INFARCTION. THE UPPER REFERENCE LIMIT (URL) OF TROPONIN, DEFINED THE 99TH PERCENTILE OF cTnI DISTRIBUTION IN A REFERENCE POPULATION, HAS BEEN CONFIRMED THE DECISION THRESHOLD FOR [place] DIAGNOSIS. Performed By: #### I NFLUAB #### [facility] [address] [address] [address] Tom Dotson XR CHEST 1 Von [...] Date: 2022-09-25 10:55 Normal [facility] ASPERGILLUS AB, QUANTITATIVE DIDon 04-20-2022 Aspergillus flavus Negative Normal Neg:<1:1 [facility] Comment on above: Performed By: #### A SPDID #### [facility] [address] [place] [address] Dr. Tom Dotson Aspergillus fumigatus Negative Normal Neg:<1:1 [facility] Comment on above: Performed By: #### A SPDID #### [facility] [address] [place] [address] Dr. Tom Dotson Aspergillus niger Negative Normal Neg:<1:1 [facility] Comment on above: Performed By: #### A SPDID #### [facility] [address] [address] [address] Tom Dotson ANTI NEUTROPHIL CYTOPLASMIC AB (ANCA) PRon 04-19-2022 Anti-MPO Antibodies <0.2 Normal 0.0-0.9 [facility] Comment on above: Result Comment: Perf ormed at: BN Performed By: #### C BC #### [facility] [address] [place] [address] Dr. Tom Dotson Anti-PR3 Antibodies <0.2 Normal 0.0-0.9 [facility] Comment on above: Result Comment: Perf ormed at: BN Performed By: #### C BC #### [facility] [address] [place] [address] Dr. oTm Dotson Atypical pANCA <1:20 Normal Neg:<1:20 [facility] Comment on above: Result Comment: The atypical pANCA pattern has been observed in a significant percentage of patients with ulcerative colitis, primary sclerosing cholangitis and autoimmune hepatitis. Performed at: CB Performed By: #### C BC #### [facility] [address] [place] [address] Dr. Tom Dotson Cytoplasmic (C-ANCA) <1:20 Normal Neg:<1:20 [facility] Comment on above: Result Comment: Perf ormed at: CB Performed By: #### C BC #### [facility] [address] [place] [address] Dr. Tom Dotson Perinuclear (P-ANCA) <1:20 Normal Neg:<1:20 [facility] Comment on above: Result Comment: The presence of positive fluorescence exhibiting P-ANCA or C-ANCA patterns alone is not specific for the diagnosis of Nevin's Granulomatosis (WG) or microscopic polyangiitis. Decisions about treatment should not be based solely on ANCA IFA results. The International ANCA Group Consensus recommends follow up testing of positive sera with both TN-3 and MPO-ANCA enzyme immunoassays. As many as 5% serum samples are positive only by EIA. Ref. AM J Clin Pathol 1999;111:507-513. Performed at: CB Performed By: #### C BC #### [facility] [address] [place] [address] Dr. Tom Dotson IMMUNOGLOBULIN E, TOTALon Immunoglobulin E, Total 68 IU/mL Normal 6-495 [facility] Comment on above: Performed By: #### I GETOT #### [facility] [address] [place] [address] Dr. Tom Dotson ANGIOTENSION-CONVERTING ENZY ME (ELINOR)on 04-17-2022 ELINOR 28 U/L Normal 14-82 [facility] Comment on above: Performed By: #### A NGIOC #### [facility] [address] [place] [address] Dr. Tom Dotson CBC AUTO DIFFon 04-16-2022 BASO # 0.1 103/ul Normal 0.0-0.1 [facility] Comment on above: Performed By: #### I NFLUAB #### [facility] [address] [place] [address] Dr. Tom Dotson Basophils/100 WBC (Bld) 1.0 % Normal 0.2-2.0 [facility] Comment on above: Performed By: #### I NFLUAB #### [facility] [address] [place] [address] Dr. Tom Dotson EO # 0.0 103/ul Normal 0.0-0.7 [facility] Comment on above: Performed By: #### I NFLUAB #### [facility] [address] [place] [address] Dr. Tom Dotson Eosinophils/100 WBC (Bld) 0.1 % Critically low 0.9-7.0 [facility] Comment on above: Performed By: #### I NFLUAB #### [facility] [address] [place] [address] Dr. Tom Dotson Erythrocyte distribution width (RBC) [Ratio] 12.9 % Normal 11.0-15.0 [facility] Comment on above: Performed By: #### I NFLUAB #### [facility] [address] [place] [address] Dr. Tom Dotson Hematocrit (Bld) [Volume fraction] 44.8 % Normal 42.0-54.0 [facility] Comment on above: Performed By: #### I NFLUAB #### [facility] [address] [place] [address] Dr. Tom Dotson Hemoglobin (Bld) [Mass/Vol] 15.0 g/dL Normal 14.0-18.0 [facility] Comment on above: Performed By: #### I NFLUAB #### [facility] [address] [place] [address] Dr. Tom Dotson IG # 0.02 10e3/ul Normal 0.00-0.03 [facility] Comment on above: Performed By: #### I NFLUAB #### [facility] [address] [place] [address] Dr. Tom Dotson IG % 0.2 % Normal 0.0-0.5 [facility] Comment on above: Performed By: #### I NFLUAB #### [facility] [address] [place] [address] Dr. Tom Dotson LYMPH # 1.4 103/ul Normal 1.2-3.8 [facility] Comment on above: Performed By: #### I NFLUAB #### [facility] [address] [place] [address] Dr. Tom Dotson Lymphocytes/100 WBC (Bld) 17.6 % Critically low 20.5-60.0 [facility] Comment on above: Performed By: #### I NFLUAB #### [facility] [address] [place] [address] Dr. Tom Dotson MANUAL DIFF REQ NO Normal [facility] Comment on above: Performed By: #### I NFLUAB #### [facility] [address] [place] [address] Dr. Tom Dotson MCH (RBC) [Entitic mass] 30.9 pg Normal 25.9-34.0 [facility] Comment on above: Performed By: #### I NFLUAB #### [facility] [address] [place] [address] Dr. Tom Dotson MCHC (RBC) [Mass/Vol] 33.5 g/dL Normal 29.9-35.2 [facility] Comment on above: Performed By: #### I NFLUAB #### [facility] [address] [place] [address] Dr. Tom Dotson MCV (RBC) [Entitic vol] 92.2 fL Normal 80.0-94.0 [facility] Comment on above: Performed By: #### I NFLUAB #### [facility] [address] [place] [address] Dr. Tom Dotson MONO # 0.8 103/ul Normal 0.3-0.8 [facility] Comment on above: Performed By: #### I NFLUAB #### [facility] [address] [address] [address] Tom Dotson Monocytes/100 WBC (Bld) 9.6 % Normal 1.7-12.0 [facility] Comment on above: Performed By: #### I NFLUAB #### [facility] [address] [place] [address] Dr. Tom Dotson NEUT # 5.9 103/ul Normal 1.4-6.5 [facility] Comment on above: Performed By: #### I NFLUAB #### [facility] [address] [place] [address] Dr. Tom Dotson Neutrophils/100 WBC (Bld) 71.5 % Normal 43.0-75.0 [facility] Comment on above: Performed By: #### I NFLUAB #### [facility] [address] [place] [address] Dr. Tom Dotson Platelet mean volume (Bld) [Entitic vol] 9.9 fL Normal 9.5-13.5 [facility] Comment on above: Performed By: #### I NFLUAB #### [facility] [address] [place] [address] Dr. Tom Dotson PLT 325 103/ul Normal 150-450 [facility] Comment on above: Performed By: #### I NFLUAB #### [facility] [address] [place] [address] Dr. Tom Dotson RBC 4.86 106/ul Normal 4.70-6.10 [facility] Comment on above: Performed By: #### I NFLUAB #### [facility] [address] [place] [address] Dr. Tom Dotson WBC 8.2 103/ul Normal 4.0-11.0 [facility] Comment on above: Performed By: #### I NFLUAB #### [facility] [address] [place] [address] LUNG CANCER SCREENINGon [...] Date: 2022-04-10 22:57 Normal [facility] CBC AUTO DIFFon 03-06-2022 BASO # 0.1 103/ul Normal 0.0-0.1 [facility] Comment on above: Performed By: #### C BC #### [facility] [address] [address] [address] Tom Dotson Basophils/100 WBC (Bld) 1.0 % Normal 0.2-2.0 [facility] Comment on above: Performed By: #### C BC #### [facility] [address] [address] [address] Tom Dotson EO # 2.5 103/ul Critically high 0.0-0.7 [facility] Comment on above: Performed By: #### C BC #### [facility] [address] [id number] [address] Tom Dotson Eosinophils/100 WBC (Bld) 29.1 % Critically high 0.9-7.0 [facility] Comment on above: Performed By: #### C BC #### [facility] [address] [place] [address] Dr. Tom Dotson Erythrocyte distribution width (RBC) [Ratio] 12.8 % Normal 11.0-15.0 [facility] Comment on above: Performed By: #### C BC #### [facility] [address] [place] [address] Dr. Tom Dotson Hematocrit (Bld) [Volume fraction] 46.6 % Normal 42.0-54.0 [facility] Comment on above: Performed By: #### C BC #### [facility] [address] [place] [address] Dr. Tom Dotson Hemoglobin (Bld) [Mass/Vol] 14.4 g/dL Normal 14.0-18.0 [facility] Comment on above: Performed By: #### C BC #### [facility] [address] [place] [address] Dr. Tom Dotson IG # 0.04 10e3/ul Critically high 0.00-0.03 [facility] Comment on above: Performed By: #### C BC #### [facility] [address] [place] [address] Dr. Tom Dotson IG % 0.5 % Normal 0.0-0.5 [facility] Comment on above: Performed By: #### C BC #### [facility] [address] [place] [address] Dr. Tom Dotson LYMPH # 1.3 103/ul Normal 1.2-3.8 [facility] Comment on above: Performed By: #### C BC #### [facility] [address] [place] [address] Dr. Tom Dotson Lymphocytes/100 WBC (Bld) 15.1 % Critically low 20.5-60.0 [facility] Comment on above: Performed By: #### C BC #### [facility] [address] [place] [address] Dr. Tom Dotson MANUAL DIFF REQ NO Normal [facility] Comment on above: Performed By: #### C BC #### [facility] [address] [address] [address] Tom Dotson MCH (RBC) [Entitic mass] 29.5 pg Normal 25.9-34.0 [facility] Comment on above: Performed By: #### C BC #### [facility] [address] [address] [address] Tom Dotson MCHC (RBC) [Mass/Vol] 30.9 g/dL Normal 29.9-35.2 [facility] Comment on above: Performed By: #### C BC #### [facility] [address] [place] [address] Dr. Tom Dotson MCV (RBC) [Entitic vol] 95.5 fL Critically high 80.0-94.0 [facility] Comment on above: Performed By: #### C BC #### [facility] [address] [place] [address] Dr. Tom Dotson MONO # 0.8 103/ul Normal 0.3-0.8 [facility] Comment on above: Performed By: #### C BC #### [facility] [address] [place] [address] Dr. Tom Dotson Monocytes/100 WBC (Bld) 9.5 % Normal 1.7-12.0 [facility] Comment on above: Performed By: #### C BC #### [facility] [address] [place] [address] Dr. Tom Dotson NEUT # 3.9 103/ul Normal 1.4-6.5 [facility] Comment on above: Performed By: #### C BC #### [facility] [address] [place] [address] Dr. Tom Dotson Neutrophils/100 WBC (Bld) 44.8 % Normal 43.0-75.0 [facility] Comment on above: Performed By: #### C BC #### [facility] [address] [place] [address] Dr. Tom Dotson Platelet mean volume (Bld) [Entitic vol] 10.2 fL Normal 9.5-13.5 [facility] Comment on above: Performed By: #### C BC #### [facility] [address] [place] [address] Dr. Tom Dotson PLT 328 103/ul Normal 150-450 [facility] Comment on above: Performed By: #### C BC #### [facility] [address] [place] [address] Dr. Tom Dotson RBC 4.88 106/ul Normal 4.70-6.10 [facility] Comment on above: Performed By: #### C BC #### [facility] [address] [place] [address] Dr. Tom Dotson WBC 8.7 103/ul Normal 4.0-11.0 [facility] Comment on above: Performed By: #### C BC #### [facility] [address] [place] [address] Dr. Tom Dotson DIFFERENTIAL MANUALon 2021 ATYPICAL LYMPH # 0.09 103/ul Normal [facility] Comment on above: Performed By: #### D IFF #### [facility] [address] [place] [address] Dr. Tom Dotson ATYPICAL LYMPH % 1 % Normal [facility] Comment on above: Performed By: #### D IFF #### [facility] [address] [place] [address] Dr. Tom Dotson BAND # 0.0 103/ul Normal 0.0-0.3 [facility] Comment on above: Performed By: #### D IFF #### [facility] [address] [place] [address] Dr. Tom Dotson BAND % 0 % Normal 0-5 [facility] Comment on above: Performed By: #### D IFF #### [facility] [address] [place] [address] Dr. Tom Dotson BASOM # 0.00 103/ul Normal 0.00-0.10 [facility] Comment on above: Performed By: #### D IFF #### [facility] [address] [place] [address] Dr. Yilan Dotson BASOM % 0.0 % Critically low 0.2-2.0 [facility] Comment on above: Performed By: #### D IFF #### [facility] [address] [address] [address] Tom Dotson BLAST # Normal [facility] Comment on above: Performed By: #### D IFF #### [facility] [address] [address] [address] Tom Dotson BLAST % Normal [facility] Comment on above: Performed By: #### D IFF #### [facility] [address] [place] [address] Dr. Tom Dotson CORRECTED WBC Normal 4.0-11.0 [facility] Comment on above: Performed By: #### D IFF #### [facility] [address] [place] [address] Dr. Tom Dotson EOS # 1.22 103/ul Critically high 0.00-0.70 [facility] Comment on above: Performed By: #### D IFF #### [facility] [address] [place] [address] Dr. Tom Dotson EOS% 14.0 % Critically high 0.9-7.0 [facility] Comment on above: Performed By: #### D IFF #### [facility] [address] [place] [address] Dr. Tom Dotson LYMPHM # 1.91 103/ul Normal 1.20-3.80 [facility] Comment on above: Performed By: #### D IFF #### [facility] [address] [place] [address] Dr. Tom Dotson LYMPHM% 22.0 % Normal 20.5-60.0 [facility] Comment on above: Performed By: #### D IFF #### [facility] [address] [place] [address] Dr. Tom Dotson METAMYELOCYTE # Normal [facility] Comment on above: Performed By: #### D IFF #### [facility] [address] [place] [address] Dr. Tom oDtson METAMYELOCYTE % Normal [facility] Comment on above: Performed By: #### D IFF #### [facility] [address] [place] [address] Dr. Tom Dotson MONOM# 0.52 103/ul Normal 0.30-0.80 [facility] Comment on above: Performed By: #### D IFF #### [facility] [address] [place] [address] Dr. Tom Dotson MONOM% 6.0 % Normal 1.7-12.0 [facility] Comment on above: Performed By: #### D IFF #### [facility] [address] [place] [address] Dr. Tom Dotson MYELOCYTE # Normal [facility] Comment on above: Performed By: #### D IFF #### [facility] [address] [place] [address] Dr. Tom Dotson MYELOCYTE % Normal [facility] Comment on above: Performed By: #### D IFF #### [facility] [address] [place] [address] Dr. Tom Dotson NRBC Normal [facility] Comment on above: Performed By: #### D IFF #### [facility] [address] [place] [address] Dr. Tom Dotson SEG # 4.96 103/ul Normal 1.40-6.50 [facility] Comment on above: Performed By: #### D IFF #### [facility] [address] [place] [address] Dr. Tom Dotson SEG % 57.0 % Normal 43.0-75.0 [facility] Comment on above: Performed By: #### D IFF #### [facility] [address] [place] [address] Dr. Tom Dotson WBC 8.7 103/ul Normal 4.0-11.0 [facility] Comment on above: Performed By: #### D IFF #### [facility] [address] [place] [address] Dr. Tom Dotson LIPID PROFILEon 03-06-2022 CHOL-HDL RATIO NORM SEE BELOW Normal [facility] Comment on above: Result Comment: 3.3 - 4.4 LOW RISK 4.4 - 7.1 AVERAGE RISK 7.1 - 11.0 MODERATE RISK >11.0 HIGH RISK Performed By: #### I NFLUAB #### [facility] [address] [address] [address] Tom Dotson Cholesterol [Mass/Vol] 135 mg/dL Normal <=200 [facility] Comment on above: Performed By: #### I NFLUAB #### [facility] [address] [address] [address] Tom Dotson Cholesterol in HDL [Mass/Vol] 51 mg/dL Normal 40-60 [facility] Comment on above: Performed By: #### I NFLUAB #### [facility] [address] [address] [address] Tom Dotson Cholesterol in LDL [Mass/Vol] 74.4 mg/dL Normal [facility] Comment on above: Performed By: #### I NFLUAB #### [facility] [address] [address] [address] Tom Dotson Cholesterol.total/Ch olesterol in HDL [Mass ratio] 2.6 {ratio} Normal [facility] Comment on above: Performed By: #### I NFLUAB #### [facility] [address] [address] [address] Tom Dotson HDL NORMAL > or = 60 mg/dl - LO W CARDIOVASCULAR RISK <40 mg/dl - HIGH CARDIOVASCULAR RISK Normal [facility] Comment on above: Performed By: #### I NFLUAB #### [facility] [address] [address] [address] Tom Dotson LDL CALC NORMAL SEE BELOW Normal [facility] Comment on above: Result Comment: <100 mg/dl OPTIMAL 100 - 129 mg/dl NEAR OR ABOVE OPTIMAL 130 - 159 mg/dl BORDERLINE HIGH 160 - 189 mg/dl HIGH >190 mg/dl VERY HIGH Performed By: #### I NFLUAB #### [facility] [address] [address] [address] Tom Dotson Triglyceride [Mass/Vol] 48 mg/dL Normal <=150 [facility] Comment on above: Performed By: #### I NFLUAB #### [facility] [address] [place] [address] Dr. Tom Dotson VLDL CALC 9.6 mg/dL Normal [facility] Comment on above: Performed By: #### I NFLUAB #### [facility] [address] [place] [address] Dr. Tom Dotson PROF 14(COMP METB)on 022 Albumin [Mass/Vol] 3.8 g/dL Normal 3.4-5.0 [facility] Comment on above: Performed By: #### I NFLUAB #### [facility] [address] [place] [address] Dr. Tom Dotson Albumin/Globulin [Mass ratio] 1.1 {ratio} Normal [facility] Comment on above: Performed By: #### I NFLUAB #### [facility] [address] [place] [address] Dr. Tom Dotson ALP [Catalytic activity/Vol] 62 U/L Normal 46-116 [facility] Comment on above: Performed By: #### I NFLUAB #### [facility] [address] [place] [address] Dr. Tom Dotson ALT [Catalytic activity/Vol] 25 U/L Normal 16-63 [facility] Comment on above: Performed By: #### I NFLUAB #### [facility] [address] [place] [address] Dr. Tom Dotson Anion gap [Moles/Vol] 9.8 mmol/L Normal [facility] Comment on above: Performed By: #### I NFLUAB #### [facility] [address] [place] [address] Dr. Tom Dotson AST [Catalytic activity/Vol] 15 U/L Normal 15-37 [facility] Comment on above: Performed By: #### I NFLUAB #### [facility] [address] [place] [address] Dr. Tom Dotson Bilirubin [Mass/Vol] 0.9 mg/dL Normal 0.2-1.0 [facility] Comment on above: Performed By: #### I NFLUAB #### [facility] [address] [place] [address] Dr. Tom Dotson Calcium [Mass/Vol] 8.8 mg/dL Normal 8.5-10.1 [facility] Comment on above: Performed By: #### I NFLUAB #### [facility] [address] [place] [address] Dr. Tom Dotson Chloride [Moles/Vol] 102 mmol/L Normal 98-107 [facility] Comment on above: Performed By: #### I NFLUAB #### [facility] [address] [place] [address] Dr. Tom Dotson CO2 [Moles/Vol] 30.5 mmol/L Normal 21.0-32.0 [facility] Comment on above: Performed By: #### I NFLUAB #### [facility] [address] [place] [address] Dr. Tom Dotson Creatinine [Mass/Vol] 0.95 mg/dL Normal 0.70-1.30 [facility] Comment on above: Performed By: #### I NFLUAB #### [facility] [address] [place] [address] Dr. Tom Dotson EGFR-AF SAUDI ARABIAN >60 Normal >=60 [facility] Comment on above: Performed By: #### I NFLUAB #### [facility] [address] [place] [address] Dr. Tom Dotson EGFR-NON AF SAUDI ARABIAN >60 Normal >=60 [facility] Comment on above: Performed By: #### I NFLUAB #### [facility] [address] [place] [address] Dr. Tom Dotson Globulin (S) [Mass/Vol] 3.4 g/dL Normal [facility] Comment on above: Performed By: #### I NFLUAB #### [facility] [address] [place] [address] Dr. Tom Dotson Glucose [Mass/Vol] 85 mg/dL Normal 74-106 [facility] Comment on above: Performed By: #### I NFLUAB #### [facility] [address] [address] [address] Tom Dotson Potassium [Moles/Vol] 4.3 mmol/L Normal 3.5-5.1 [facility] Comment on above: Performed By: #### I NFLUAB #### [facility] [address] [address] [address] Tom Dotson Protein [Mass/Vol] 7.2 g/dL Normal 6.4-8.2 [facility] Comment on above: Performed By: #### I NFLUAB #### [facility] [address] [place] [address] Dr. Tom Dotson Sodium [Moles/Vol] 138 mmol/L Normal 136-145 [facility] Comment on above: Performed By: #### I NFLUAB #### [facility] [address] [place] [address] Dr. Tom Dotson Urea nitrogen [Mass/Vol] 14.0 mg/dL Normal 7.0-18.0 [facility] Comment on above: Performed By: #### I NFLUAB #### [facility] [address] [place] [address] Dr. Tom Dotson Urea nitrogen/Creatinine [Mass ratio] 14.7 mg/mg Normal [facility] Comment on above: Performed By: #### I NFLUAB #### [facility] [address] [place] [address] Dr. Tom Dotson TSHon 03-06-2022 TSH 1.010 uIU/mL Normal 0.358-3.740 [facility] Comment on above: Performed By: #### I NFLUAB #### [facility] [address] [place] [address] Dr. Tom oDtson Hepatic Panelon 09-02-2019 Albumin [Mass/Vol] 3.2 g/dL Normal 3.2-5.5 [facility] Comment on above: Performed By: #### H EPATIC, LIPID, TSH3 wRFLX, [id number] #### [facility] [address] [place] [address] Albumin/Globulin [Mass ratio] 1.1 {ratio} Normal [facility] Comment on above: Performed By: #### H EPATIC, LIPID, TSH3 wRFLX, [id number] #### [address] ALP [Catalytic activity/Vol] 38 U/L Normal 32-92 [facility] Comment on above: Performed By: #### H EPATIC, LIPID, TSH3 wRFLX, [id number] #### [address] ALT [Catalytic activity/Vol] 14 U/L Normal 10-60 [facility] Comment on above: Performed By: #### H EPATIC, LIPID, TSH3 wRFLX, [id number] #### [address] AST [Catalytic activity/Vol] 13 U/L Normal 10-42 [facility] Comment on above: Performed By: #### H EPATIC, LIPID, TSH3 wRFLX, [id number] #### [address] Bilirubin [Mass/Vol] 0.9 mg/dL Normal 0.3-1.2 [facility] Comment on above: Performed By: #### H EPATIC, LIPID, TSH3 wRFLX, [id number] #### [facility] [address] [place] [address] Bilirubin,Indirect 0.8 mg/dL Normal [facility] Comment on above: Performed By: #### H EPATIC, LIPID, TSH3 wRFLX, [id number] #### [facility] [address] [place] [address] Bilirubin.direct [Mass/Vol] 0.1 mg/dL Normal 0.0-0.4 [facility] Comment on above: Performed By: #### H EPATIC, LIPID, TSH3 wRFLX, [id number] #### [address] Globulin (S) [Mass/Vol] 2.9 g/dL Normal [facility] Comment on above: Performed By: #### H EPATIC, LIPID, TSH3 wRFLX, [id number] #### [facility] [address] Protein [Mass/Vol] 6.1 g/dL Normal 6.1-7.9 [facility] Comment on above: Performed By: #### H EPATIC, LIPID, TSH3 wRFLX, [id number] #### [facility] [address] Lipid Panelon 09-02-2019 Cholesterol [Mass/Vol] 158 mg/dL Normal 140-200 [facility] Comment on above: Result Comment: Chol less than 200 mg/dl low risk Chol 201-239 mg/dl borderline risk Chol 240 mg/dl and greater high risk Performed By: #### H EPATIC, LIPID, TSH3 wRFLX, [id number] #### [facility] [address] Cholesterol in HDL [Mass/Vol] 61 mg/dL Normal 29-71 [facility] Comment on above: Result Comment: HDL CHOL ATP-III CLASSIFICATION Cardiovascular Risk HDL > or equal to 60 mg/dL LOW HDL < 40 mg/dL HIGH Performed By: #### H EPATIC, LIPID, TSH3 wRFLX, [id number] #### [facility] [address] Cholesterol.total/Ch olesterol in HDL [Mass ratio] 2.6 {ratio} Normal <5.0 [facility] Comment on above: Performed By: #### H EPATIC, LIPID, TSH3 wRFLX, [id number] #### [facility] [address] [place] [address] [place] LDL Cholesterol,Calculat ed 84 mg/dL Normal 0-100 [facility] Comment on above: Result Comment: LDL ATP III CLASSIFICATION LDL less than 100 mg/dL Optimal LDL 100-129 mg/dL Near or above optimal LDL 130-159 mg/dL Borderline high LDL 160-189 mg/dL High LDL greater than 189 mg/dL Very high Performed By: #### H EPATIC, LIPID, TSH3 wRFLX, [id number] #### [facility] [address] Triglyceride w/Reflex 63 mg/dL Normal 35-149 [facility] Comment on above: Result Comment: TRIG ATP III CLASSIFICATION TRIG less than 150 mg/dL Normal TRIG 150-199 mg/dL Borderline high TRIG 200-500 mg/dL High TRIG greater than 500 mg/dL Very high Standard traceable to the Center for Disease Conrtrol and Prevention (CDC) test method. Performed By: #### H EPATIC, LIPID, TSH3 wRFLX, [id number] #### [facility] [address] VLDL CHOLESTEROL 12 mg/dL Normal [facility] Comment on above: Performed By: #### H EPATIC, LIPID, TSH3 wRFLX, [id number] #### [facility] [address] [place] [address] [place] Thyroid Stim Hormone w/Rflxo n 09-02-2019 Thyroid Stim Hormone w/Rflx 1.92 u[iU]/mL Normal 0.45-5.33 [facility] Comment on above: Performed By: #### H EPATIC, LIPID, TSH3 wRFLX, [id number] #### [facility] [address] [place] [address] [place] Vitamin D 25 Hydroxy Totalon 09-02-2019 Vitamin D 25 Hydroxy Total 11.9 ng/mL Low 30-100 [facility] Comment on above: Result Comment: DAE MIN D STATUS 25(OH)VITAMIN D RANGE (ng/mL) Deficient <20 Insufficient 20 to <30 Sufficient 30 to 100 Reference: Darrion MF,Zane NC, Mason-Jelani AVELAR, et al. Evaluation,treatment, and prevention of vitamin D deficiency; an Endocrine Society clinical practice guideline. JCEM. 2010; 96(7):1911-30. PERFORMED BY: [place] [address] PATHOLOGIST [employer] APPRENTICE MIGUELINA FLOOD M.D. Performed By: #### H EPATIC, LIPID, TSH3 wRFLX, [id number] #### [facility] [address] Vital Signs Date Time Vital Sign Value Performing Clinician Madan mayer 10-30-2023 10:00-0500 Body height 185.4 cm Azul Damien [employer] Work Phone: [facility] 10-30-2023 10:00-0500 Body mass index (BMI) [Ratio] 26.84 kg/m2 Azulailyn Quezada [employer] Work Phone: [facility] 10-30-2023 10:00-0500 Body temperature 97.11 [degF] Azul Maria Luzz [employer] Work Phone: [facility] 10-30-2023 10:00-0500 Body weight 92.26 kg Azul Maria Luzz [employer] Work Phone: [facility] 10-30-2023 10:00-0500 Diastolic blood pressure 78 mm[Hg] Azul Maria Luzz [employer] Work Phone: [facility] 10-30-2023 10:00-0500 Heart rate 83 /min Azul Rosaholz [employer] Work Phone: [facility] 10-30-2023 10:00-0500 Respiratory rate 16 /min Azul Rosaholz [employer] Work Phone: [facility] 10-30-2023 10:00-0500 SaO2% (BldA) [Mass fraction] 94 % Azul Maria Luzz [employer] Work Phone: [facility] 10-30-2023 10:00-0500 Systolic blood pressure 138 mm[Hg] Azul Leidyhholz [employer] Work Phone: [facility] Encounters Encounter Date Encounter Type Care [...] Office outpatient visit 15 minutes Azul Quezada [employer] Work Phone: [facility] Comment on above: [...] Comment on above: Performed By: #### [facility] #### [facility] [address] [address] [address] Tom Dotson Plan of Treatment Date Care Activity Detail Author Start: 08-04-2024 Screening for malign ant neoplasm of colon [facility] Start: 03-21-2024 Influenza vaccination Influenza Vacc ine (#1) [facility] Comment on above: Postponed from 05/23 (Patient Refused) Start: 11-13-2023 End: 11-13-2023 Patient encounter procedure 11/13/2023 9:40 AM EST Office Visit [facility] [address] [place] [phone] Azul Quezada, ORACIO [address] [place] [id number] [facility] Start: 10-30-2023 End: 10-30-2023 Patient encounter procedure 10/30/2023 10:00 AM EST Office Visit [facility] [address] [place] [phone] zAul Quezada, ORACIO [address] [place] [id number] [facility] Start: 2023 Influenza vaccination Influenza Vacc ine (#1) [facility] Start: 1960 Medicare Annual Well ness (AWV) Medicare Annual Wellness (AWV) [facility] Start: 1960 Screening for malign ant neoplasm of colon [facility] BLOOD CULTURE 1 BLOOD CULTURE 1 Lab Routine 10/21/2023 12:27 PM EST [facility] BLOOD CULTURE 2 BLOOD CULTURE 2 Lab Routine 10/21/2023 12:30 PM EST [facility] Immunizations Immunization Date Immunization Notes Care Provider [facility] 2020 influenza, live, intranasal, quadrivalent Azul Rosaholz [employer] Work Phone: [facility] 2020 influenza virus vacc ine, unspecified formulation Generic Provider [facility] 08-04-2019 influenza, high dose seasonal, preservative-free Azul Aicmaxholz [employer] Work Phone: [facility] Payers Date Payer Category Payer Medicare [id number] 1993 Medicare [id number] 1960 Unknown [id number] 2.16.84 [id number] 1960 Unknown [id number] 2.16.84 [id number] 1960 Unknown [id number] 2.16.84 [id number] 1960 Unknown [id number] 2.16.84 [id number] 1960 Unknown [id number] 2.16.84 [id number] 1960 Unknown [id number] 2.16.84 [id number] 1960 Unknown [id number] 2.16.84 [id number] 1960 Unknown [id number] 2.16.84 [id number] 1960 Unknown [id number] 2.16.84 [id number] 1960 Unknown [id number] 2.16.84 [id number] 1959 Medicaid [id number] 1959 Unknown [id number] Social History Date Type Detail Facility Tobacco smoking stat [facility] Tobacco smoking consumption unknown [facility] Start: 1960 Sex Assigned At Not on file [facility] Start: 10-30-2023 Gender identity Not on file [facility] Start: 10-30-2023 Tobacco smoking stat [facility] Ex-smoker [facility] End: 03-22-2019 History [...] complaint on file. HPI: Recent hospitalization at [facility] for 3 days d/t influenza. Does [...] (CMS/HCC) COVID-19 07/2019 CVA (cerebral vascular accident) ([facility] Degenerative cervical disc Depression with anxiety Insomnia Marijuana abuse 10/30/2023 Multiple pulmonary nodules Neck mass 2013 Osteoarthritis Papule of skin Pigmented skin lesion of uncertain nature Rheumatic fever Stroke ([facility]) 07/2020 Testicle lump Tourette's ([facility] Vertebral artery occlusion Vocal cord polyp Past Surgical History: Procedure Laterality Date ADENOIDECTOMY CAROTID STENT Right 09/2019 stent, RT carotid CT GUIDED TRANSVAGINAL TRANSRECTAL FLUID DRAIN 06/09/2020 CT GUIDED TRANSVAGINAL TRANSRECTAL FLUID DRAIN 06/09/2020 OTHER SURGICAL HISTORY Removal of Polyp Vocal area and Vocal Cord cyst [place] EXCISION THYROGLOSSAL DUCT CYST/SINUS Procedure:DL, e/o thyroglossal [...] section and content) DATE CREATED AUTHOR 09/04/2019 [facility] DATE CREATED AUTHOR AUTHOR'S ORGANIZ ATION 09/30/2022 [facility]ital DATE CREATED AUTHOR AUTHOR'S ORGANIZ ATION 06/01/2024 [facility] dical Specialists EPIC Care Teams (unrecognized sec tion and content) [employer]er Relationship Specialty Start Date End Date Kiko Zurita MD PCP - General Family Medicine 04/07/23 Azul Quezada NP [address] [place] [phone] Referring Physician Nurse Practitioner 04/07/23 [employer] Relationship Specialty Start Date End Date Kiko Zurita MD [address] [place] [phone] PCP - General Family Medicine 10/24/23 Azul Quezada NP [address] [place] [phone] Referring Physician Nurse Practitioner 04/07/23 [...] BE BASED ON THE PRIMARY CLINICAL RECORDS. [email or web address] [facility]. provides no warranty or guarantee of the accuracy or completeness of information in this document.
[2024-07-06 13:57] LABS: Basophils Absolute Auto 0.1 10^3/uL (0.0-0.1); Basophils Percent Auto 0.9 % (0.2-2.0); Eosinophils Percent Auto 0.1 % (0.9-7.0); Hematocrit 43.1 % (42.0-54.0); Hemoglobin 13.9 g/dL (14.0-18.0); Immature Granulocytes Abs Auto 0.03 10^3/uL (0.00-0.03); Immature Granulocytes Pct Auto 0.3 % (0.0-0.5); Lymphocytes Absolute Auto 1.2 10^3/uL (1.2-3.8); Mean Corpuscular HGB Conc 32.3 g/dL (29.9-35.2); Mean Corpuscular Hemoglobin 30.3 pg (25.9-34.0); Mean Corpuscular Volume 94.1 fL (80.0-94.0); Mean Platelet Volume 10.1 fL (9.5-13.5); Monocytes Absolute Auto 0.9 10^3/uL (0.3-0.8); Monocytes Percent Auto 9.7 % (1.7-12.0); Neutrophils Absolute Auto 6.5 10^3/uL (1.4-6.5); Platelet Count 326 10^3/uL (150-450); Red Blood Count 4.58 10^6/uL (4.70-6.10); Red Cell Distribution Width 12.8 % (11.0-15.0); White Blood Count 8.7 10^3/uL (4.0-11.0)
== END 2024-07-06 11:57 | disposition home or self-care (01) ==
LOC: LAB 11:58
PROVIDERS: PCP Nurse Practitioner; Visit Provider Internal Medicine
DX: D72.19 Other eosinophilia (principal)
CPT/HCPCS: 36415; 85025

== ENCOUNTER 2024-09-06 14:05 | Outpatient (OUT) | payer MEDICARE, SELFPAY ==
--- NOTE | 2024-09-06 14:09 | CT_ITS ---
[address] [address] Patient Name: JUANITA KRAMER MRN: [id number] date: 1960 Sex: M Assigned Patient Location: CT Current Patient Location: Accession/Order Number: [id number] Exam Date: 09/06/2024 14:22 Report Date: 09/08/2024 05:49 At the request of: JAMESON WHITE Procedure: CT lung screening low-dose EXAMINATION: CT lung screening low-dose HISTORY: Nicotine Dependence COMPARISON: CT lung screening 04/29/2023 TECHNIQUE: Axial, Coronal, and Sagittal images were created without the administration of IV contrast material. Dose reduction techniques were achieved by using automated exposure control and/or adjustment of mA and/or kV according to patient size and/or use of iterative reconstruction technique. FINDINGS: LUNGS: New spiculated, wispy opacity within right lower lobe posterior basilar segment, 1.9 cm. There are 3 new irregular/spiculated opacities within posterior left lung base within or near the costophrenic angle; the largest 2 are 1.4 cm and 1.3 cm. Multiple nonspecific small pleural-based nodules and wispy opacities scattered within the lungs; grossly stable. PLEURA: No mass, effusion, or pneumothorax. VASCULATURE: No abnormality. ROSMERY: Calcified lymph nodes suggestive of chronic granulomatous disease. MEDIASTINUM: No mass or pathologic adenopathy. CARDIAC: No enlargement, pericardial thickening, or pericardial effusion. Coronary Artery calcifications: AORTA: No aneurysm or dissection. CHEST WALL: No mass or axillary adenopathy BONES: No bone lesion or fracture. LIMITED ABDOMEN: No suspicious findings. Limited images of the upper abdomen. OTHER: Negative. CT/CT lung screening low-dose IMPRESSION: 1. Lung-RADS Category 4A- Suspicious. Findings for which additional diagnostic testing and/ or tissue sampling is recommended. 3 month LDCT; PET/CT may be used when there is a >= 8 mm solid component. 2. The new findings may represent infectious infiltrates. Follow-up CT chest in 3 months is recommended. Electronically authenticated by: YARIEL OLSON Date: 09/08/2024 05:49
--- OUTSIDE RECORDS SUMMARY | 2024-09-06 14:23 | XMS_ITS | CCD ---
Author Organization [facility] Care Team Providers Care Chef Assistant Name Role Phone SAMSA, JAMESON Admitting Unavailable SAMSA, JAMESON Attending Unavailable AICHHOLZ, FIELD CROP FARMER AZUL Referring Unavailable AICHHOLZ, FIELD CROP FARMER AZUL Primary Care Unavailable SAMSA, JAMESON Consulting Unavailable AICHHOLZ, FIELD CROP FARMER AZUL Admitting Unavailable AICHHOLZ, FIELD CROP FARMER AZUL Attending Unavailable AICHHOLZ, FIELD CROP FARMER AZUL Primary Care Unavailable AICHHOLZ, FIELD CROP FARMER AZUL Consulting Unavailable SAMSA, JAMESON Admitting Unavailable SAMSA, JAMESON Attending Unavailable AICHHOLZ, FIELD CROP FARMER AZUL Primary Care Unavailable WHITNEY, DR YARIEL Figueroa Consulting Unavailable SAMSA, JAMESON Consulting Unavailable AICHHOLZ, FIELD CROP FARMER AZUL Primary Care Unavailable DAREN, DR MAURO Admitting Unavailable DAREN, DR MAURO Attending Unavailable WHITNEY, DR YARIEL Figueroa Consulting Unavailable DAREN, DR MAURO Consulting Unavailable Yudith YANG, Kiko Primary Care Provider [phone] [employer] O[employer] G[employer] 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, Azul Unavailable Kiko Zurita MD Primary Care Provider [phone] [employer] 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, Azul Unavailable AICHHOLZ, AZUL Attending Unavailable AICHHOLZ, AZUL Attending Unavailable AICHHOLZ, AZUL Attending Unavailable AICHHOLZ, AZUL Attending Unavailable AICHHOLZ, AZUL Attending Unavailable IBETH TORRES Attending Unavailable AICHHOLZ, AZUL Attending Unavailable Allergies Allergy Classification Reported Allergen(s) Allergy Type Date of Onset Reaction(s) Facility (6 sources) Honey bee venom Allergy to substance 06-09-2020 Unknown [facility] Medications Current Medications Medication Drug Class(es) Dates Sig (Normalized) Sig (Original) albuterol 0.83 mg/ml inhalation solution (12 sources) beta2-Adrenergic Agonist albuterol (2.5 MG/3M L) 0.083% nebulizer solution Take 2.5 mg by nebulization 4 (four) times a day as needed for wheezing Active take 2 puff(s) by in halation every four hours for wheezing albuterol HFA 90 mcg/act inhaler Inhale 2 puffs every 4 (four) hours if needed for wheezing Active albuterol 0.833 mg/ml / ipratropium bromide 0.167 mg/ml inhalation solution (4 sources) Anticholinergic, beta2-Adrenergic Agonist Start: 12-01-2023 ipratropium-albuterol (Duo-Neb) 0.5-2.5 mg/3 mL nebulizer solution Take 3 mL by nebulization in the morning and 3 mL at noon and 3 mL in the evening and 3 mL before bedtime. 12/01/2023 Active aspirin 81 mg delayed release oral tablet (6 sources) Platelet Aggregation Inhibitor, Nonsteroidal Anti-inflammatory Drug take 1 tablet by mouth in the morning aspirin 81 MG EC tablet Take 81 mg by mouth in the morning. Active atorvastatin 40 mg oral tablet (6 sources) HMG-CoA Reductase Inhibitor Start: 06-02-2024 End: 08-31-2024 take 1 tablet by mouth once daily atorvastatin (Lipitor) 40 MG tablet Indications: Mixed hyperlipidemia (CMS/HCC) Take 1 tablet (40 mg) by mouth Daily 90 tablet 1 06/02/2024 08/31/2024 Active take 1 tablet by mouth in the mo rning atorvastatin (Lipitor) 40 MG tablet Take 40 mg by mouth in the morning. 0 Active 60 actuat budesonide 0.16 mg/actuat / formoterol fumarate 0.0045 mg/actuat metered dose inhaler (6 sources) Corticosteroid, beta2-Adrenergic Agonist take 2 puff(s) by inhalation in the morning budesonide-formoterol (Symbicort) 160-4.5 MCG/ACT inhaler Inhale 2 puffs in the morning and 2 puffs before bedtime. Rinse mouth with water after use to reduce aftertaste and incidence of candidiasis. Do not swallow.. Active [id number] 0.3 ml EPINEPHrine 1 mg/ml auto-injector (4 sources) alpha-Adrenergic Agonist, beta-Adrenergic Agonist, Catecholamine Start : 05-30 EPINEPHrine (Epipen) 0.3 MG/0.3ML injection syringe Inject 1 Syringe as directed 1 (one) time 05/30/2024 Active famotidine 20 mg oral tablet (3 sources) Histamine-2 Receptor Antagonist Start : 05-30 End: 08-16 take 1 tablet by mouth in the morning famotidine (Pepcid) 20 MG tablet Take 20 mg by mouth in the morning and 20 mg before bedtime. 05/30/2024 08/16/2024 Discontinued (Therapy completed) FLUoxetine 20 mg oral capsule (8 sources) Serotonin Reuptake Inhibitor Start : 06-02 End: 11-14 take 1 capsule by mouth once daily FLUoxetine (PROzac) 20 MG capsule Indications: Depression with anxiety Take 1 capsule (20 mg) by mouth Daily 90 capsule 1 08/16/2024 11/14/2024 Active take 1 capsule by mouth in the m orning FLUoxetine (PROzac) 10 MG capsule Take 10 mg by mouth in the morning. 0 Active hydrOXYzine hydrochloride 25 mg oral tablet (3 sources) Antihistamine Start: 12-15-2023 End: 08-16-2024 take 1-2 tablets by mouth every eight hours for anxiety hydrOXYzine HCl (Atarax) 25 MG tablet Indications: Depression with anxiety Take 1-2 tablets (25-50 mg) by mouth every 8 (eight) hours if needed for anxiety for up to 10 days 60 tablet 12/15/2023 08/16/2024 Discontinued (Therapy completed) predniSONE 20 mg oral tablet (4 sources) Start: 05-30-2024 End: 08-16-2024 take 1 tablet by mouth in the morning predniSONE (Deltasone) 20 MG tablet Take 20 mg by mouth in the morning and 20 mg before bedtime. 05/30/2024 08/16/2024 Discontinued (Therapy completed) 10 actuat tiotropium 0.0025 mg/actuat inhalation spray (6 sources) Anticholinergic take 2 puff(s) by inhalation in the morning tiotropium (Spiriva Respimat) 2.5 MCG/ACT inhaler Inhale 2 puffs in the morning. Active traZODone hydrochloride 50 mg oral tablet (8 sources) Serotonin Reuptake Inhibitor Start: 06-02-2024 End: 11-14-2024 take 1 tablet by mouth at bedtime traZODone (Desyrel) 50 MG tablet Indications: Insomnia, unspecified Take 1 tablet (50 mg) by mouth at bedtime 90 tablet 1 08/16/2024 11/14/2024 Active take 1 tablet by mouth at bedtim e traZODone (Desyrel) 50 MG tablet Take 50 mg by mouth at bedtime 0 Active triamcinolone acetonide 0.055 mg/actuat metered dose nasal spray (6 sources) Corticosteroid take 2 spray(s) nasal route in the morning triamcinolone (Nasacort) 55 MCG/ACT nasal inhaler Administer 2 sprays into each nostril in the morning. Active Problems Active Problems Problem Classification Problem Date Documented Date Episodic/Chronic Acute cerebrovascular disease (14 sources) Cerebrovascular accident; 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: [Cerebral infarction, unspecified] Onset: 06-10-2020 10-30-2023 Chronic Anxiety disorders (9 sources) Other specified anxiety disorders; 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: [Mixed anxiety and depressive disorder] Onset: 03-07-2022 10-30-2023 Chronic Chronic obstructive pulmonary disease and bronchiectasis (15 sources) Emphysema, unspecified; 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: [Centrilobular emphysema] Onset: 04-16-2022 Chronic Disorders of lipid metabolism (6 sources) Mixed hyperlipidemia; 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: [Mixed hyperlipidemia] Onset: 07-20-2020 10-30-2023 Chronic Disorders usually diagnosed in infancy, childhood, or adolescence (6 sources) Wilian de la Tourette's syndrome; 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: [Tourette's disorder] Onset: 10-30-2023 10-30-2023 Chronic Immunizations and screening for infectious disease (4 sources) Needs influenza immunization; 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: [Encounter for immunization] Onset: 08-16-2024 08-16-2024 Episodic Miscellaneous mental health disorders (2 sources) Primary insomnia; 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: [Primary insomnia] 08-16-2024 Chronic Occlusion or stenosis of precerebral arteries (20 sources) Occlusion and stenosis of bilateral carotid arteries; 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: [Internal carotid artery stenosis] Onset: 06-10-2020 Chronic Osteoarthritis (6 sources) Osteoarthritis; 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: [Unspecified osteoarthritis, unspecified site] Onset: 10-30-2023 10-30-2023 Chronic Other and unspecified benign neoplasm (10 sources) Polyp of colon; 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: [Polyp of colon] Onset: 05-19-2024 Resolved: 05-19-2024 05-19-2024 Episodic Other connective tissue disease (4 sources) Pain in right hand; 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: [Pain in right hand] Onset: 05-19-2024 05-19-2024 Episodic Other diseases of veins and lymphatics (6 sources) Calcified lymph nodes; 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: [Other specified noninfective disorders of lymphatic vessels and lymph nodes] Onset: 10-30-2023 10-30-2023 Chronic Other lower respiratory disease (4 sources) Shortness of breath; 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: [SHORTNESS OF BREATH] Onset: 09-25-2022 Episodic Other screening for suspected conditions (not mental disorders or infectious disease) (13 sources) Encounter for screening for malignant neoplasm of respiratory organs; 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: [Encounter for screening for malignant neoplasm of prostate] Onset: 03-07-2022 Episodic Other upper respiratory disease (6 sources) Allergic rhinitis; 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: [Allergic rhinitis, unspecified] Onset: 10-30-2023 10-30-2023 Chronic Residual codes; unclassified (8 sources) Insomnia; 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: [Insomnia, unspecified] Onset: 10-30-2023 10-30-2023 Episodic Screening and history of mental health and substance abuse codes (5 sources) Personal history of nicotine dependence; 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: [Ex-smoker] Onset: 09-27-2022 08-16-2024 Episodic Spondylosis; intervertebral disc disorders; other back problems (6 sources) Degeneration of cervical intervertebral disc; 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: [Other cervical disc degeneration, unspecified cervical region] Onset: 10-30-2023 10-30-2023 Chronic Substance-related disorders (18 sources) Cannabis abuse; 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: [Cannabis abuse, uncomplicated] Onset: 07-20-2020 Resolved: 08-16-2024 10-30-2023 Chronic Unclassified (1 source) CONTACT W/AND (SUSP) EXPOS COVID-19; 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: [CONTACT W/AND (SUSP) EXPOS COVID-19] Onset: 09-27-2022 Unclassified (1 source) EOSINOPHILIA UNSPECIFIED; 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: [EOSINOPHILIA UNSPECIFIED] Onset: 04-20-2022 Past or Other Problems Problem Classification Problem Date Documented Da te Episodic/Chronic Influenza (8 sources) Influenza; 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: [Influenza due to unidentified influenza virus with other respiratory manifestations] Onset: 10-30-2023 Resolved: 05-19-2024 10-30-2023 Episodic Other lower respiratory disease (6 sources) Multiple nodules of lung; 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: [Other nonspecific abnormal finding of lung field] Onset: 10-30-2023 10-30-2023 Episodic Other nutritional; endocrine; and metabolic disorders (8 sources) Overweight in adulthood with body mass index of 25 or more but less than 30; 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: [Body mass index (BMI) 26.0-26.9, adult] Onset: 10-30-2023 10-30-2023 Episodic Other nutritional; endocrine; and metabolic disorders (4 sources) Body mass index 25-29 - overweight; 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: [Overweight] Onset: 12-15-2023 12-15-2023 Episodic Other skin disorders (4 sources) Papule of skin; 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: [Other skin changes] Onset: 11-13-2023 Resolved: 11-13-2023 11-13-2023 Episodic Other upper respiratory disease (12 sources) Polyp of vocal cord ; 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] Onset: 10-30-2023 10-30-2023 Episodic Viral infection (6 sources) Disease caused by 2019-nCoV; 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: [COVID-19] Onset: 07-23-2019 10-30-2023 Episodic Results Test Name Value Interpretation Reference Range Facility ALL CBC WITH AUTO DIFFon BASOPHILS ABSOLUTE AUTO 0.1 [facility] Basophils/100 WBC (Bld) 0.9 % 0.2 - 2.0 % [facility] Eosinophils/100 WBC (Bld) 0.1 % Low 0.9 - 7.0 % [facility] Erythrocyte distribution width (RBC) [Ratio] 12.8 % 11.0 - 15.0 % [facility] Hematocrit (Bld) [Volume fraction] 43.1 % 42.0 - 54.0 % [facility] Hemoglobin (Bld) [Mass/Vol] 13.9 g/dL Low 14.0 - 18.0 g/dL [facility] IMMATURE GRANULOCYTES ABS AUTO 0.03 [facility] Immature granulocytes/100 WBC (Bld) 0.3 % 0.0 - 0.5 % [facility] Interpretation and review of laboratory results Abnormal [facility] LYMPHOCYTES ABSOLUTE AUTO 1.2 [facility] Lymphocytes/100 WBC (Bld) 14 % Low 20.5 - 60.0 % [facility] MCH (RBC) [Entitic mass] 30.3 pg 25.9 - 34.0 pg [facility] MCH[facility] (RBC) [Mass/Vol] 32.3 g/dL 29.9 - 35.2 g/dL [facility] MCV (RBC) [Entitic vol] 94.1 fL High 80.0 - 94.0 fL [facility] MONOCYTES ABSOLUTE AUTO 0.9 High [facility] Monocytes/100 WBC (Bld) 9.7 % 1.7 - 12.0 % [facility] NEUTROPHILS ABSOLUTE AUTO 6.5 [facility] Neutrophils/100 WBC (Bld) 75 % 43.0 - 75.0 % [facility] Platelet mean volume (Bld) [Entitic vol] 10.1 fL 9.5 - 13.5 fL [facility] EO # 0 [facility] PLT 326 [facility] RBC 4.58 [facility] WBC 8.7 [facility] BNPon 09-25-2022 Natriuretic peptide B (Bld) [Mass/Vol] 42.0 pg/mL Normal <=900.0 [facility] Comment on above: Performed By: #### I NFLUAB #### [facility] [address] [place] [address] Dr. Tom Dotson CBC AUTO DIFFon 09-25-2022 BASO # 0.1 103/ul Normal 0.0-0.1 [facility] Comment on above: Performed By: #### C BC #### [facility] [address] [place] [address] Dr. Tom Dotson Basophils/100 WBC (Bld) 0.8 % Normal 0.2-2.0 [facility] Comment on above: Performed By: #### C BC #### [facility] [address] [place] [address] Dr. Tom Dotson EO # 0.0 103/ul Normal 0.0-0.7 [facility] Comment on above: Performed By: #### C BC #### [facility] [address] [place] [address] Dr. Tom Dotson Eosinophils/100 WBC (Bld) 0.0 % Critically low 0.9-7.[address] [facility] Comment on above: Performed By: #### C BC #### [facility] [address] [place] [address] Dr. Tom Dotson Erythrocyte distribution width (RBC) [Ratio] 12.4 % Normal 11.0-15.[address] [facility] Comment on above: Performed By: #### C BC #### [facility] [address] [place] [address] Dr. Tom Dotson Hematocrit (Bld) [Volume fraction] 43.6 % Normal 42.0-54.[address] [facility] Comment on above: Performed By: #### C BC #### [facility] [address] [place] [address] Dr. Tom Dotson Hemoglobin (Bld) [Mass/Vol] 14.3 g/dL Normal 14.0-18.[address] [facility] Comment on above: Performed By: #### C BC #### [facility] [address] [place] [address] Dr. Tom Dotson IG # 0.02 10e3/ul Normal 0.00-0.[address] [facility] Comment on above: Performed By: #### C BC #### [facility] [address] [place] [address] Dr. Tom Dotson IG % 0.3 % Normal 0.0-0.[address] [facility] Comment on above: Performed By: #### C BC #### [facility] [address] [place] [address] Dr. Tom Dotson LYMPH # 1.4 103/ul Normal 1.2-3.[address] [facility] Comment on above: Performed By: #### C BC #### [facility] [address] [place] [address] Dr. Tom Dotson Lymphocytes/100 WBC (Bld) 17.3 % Critically low 20.5-60.[address] [facility] Comment on above: Performed By: #### C BC #### [facility] [address] [place] [address] Dr. Tom Dotson MANUAL DIFF REQ NO Normal [facility] Comment on above: Performed By: #### C BC #### [facility] [address] [place] [address] Dr. Tom Dotson MCH (RBC) [Entitic mass] 29.8 pg Normal 25.9-34.[address] [facility] Comment on above: Performed By: #### C BC #### [facility] [address] [place] [address] Dr. Tom Dotson MCHC (RBC) [Mass/Vol] 32.8 g/dL Normal 29.9-35.[address] [facility] Comment on above: Performed By: #### C BC #### [facility] [address] [place] [address] Dr. Tom Dotson MCV (RBC) [Entitic vol] 90.8 fL Normal 80.0-94.[address] [facility] Comment on above: Performed By: #### C BC #### [facility] [address] [place] [address] Dr. Tom Dotson MONO # 0.7 103/ul Normal 0.3-0.[address] [facility] Comment on above: Performed By: #### C BC #### [facility] [address] [place] [address] Dr. Tom Dotson Monocytes/100 WBC (Bld) 9.4 % Normal 1.7-12.[address] [facility] Comment on above: Performed By: #### C BC #### [facility] [address] [place] [address] Dr. Tom Dotson NEUT # 5.7 103/ul Normal 1.4-6.[address] [facility] Comment on above: Performed By: #### C BC #### [facility] [address] [place] [address] Dr. Tom Dotson Neutrophils/100 WBC (Bld) 72.2 % Normal 43.0-75.[address] [facility] Comment on above: Performed By: #### C BC #### [facility] [address] [place] [address] Dr. Tom Dotson Platelet mean volume (Bld) [Entitic vol] 9.6 fL Normal 9.5-13.[address] [facility] Comment on above: Performed By: #### C BC #### [facility] [address] [place] [address] Dr. Tom Dotson PLT 331 103/ul Normal 150-450 [facility] Comment on above: Performed By: #### C BC #### [facility] [address] [place] [address] Dr. Tom Dotson RBC 4.80 106/ul Normal 4.70-6.[address] [facility] Comment on above: Performed By: #### C BC #### [facility] [address] [place] [address] Dr. Tom Dotson WBC 7.8 103/ul Normal 4.0-11.[address] [facility] Comment on above: Performed By: #### C BC #### [facility] [address] [place] [address] Dr. Tom Dotson CULTURE BLOODon 09-25-2022 Microscopic examination of blood, culture Culture Observations: NO GROWTH AT 5 DAYS. Normal [facility] Comment on above: Performed By: #### I NFLUAB #### [facility] [address] [place] [address] Dr. Tom Dotson Microscopic examination of blood, culture Culture Observations: NO GROWTH AT 5 DAYS. Normal [facility] Comment on above: Performed By: #### I NFLUAB #### [facility] [address] [place] [address] Dr. Tom Dotson [facility] SARS-CoV-2 (COVID-19) RNA OLGA+probe Ql (Unsp spec) Not detected Normal NOT DETECTED [facility] Comment on above: Result Comment: When diagnostic [...] for this test is supported by the [place] of [employer] and Human Service's declaration that [...] used). Performed By: #### C VDTBH #### [facility] [address] [place] [address] Dr. Tom Dotson INFLUENZA A AND B AGon 09-25 INFLUANE SEE BELOW Normal [facility] Comment on above: Result Comment: Nega tive for Flu A protein angiten. Infection due to Flu A cannot be ruled out. Flu A angiten in the sample may be below the detection limit of the test. Performed By: #### I NFLUAB #### [facility] [address] [place] [address] Dr. Tom Dotson INFLUBNEGH SEE BELOW Normal [facility] Comment on above: Result Comment: Nega tive for Flu B protein antigen. Infection due to Flu B cannot be ruled out. Flu B antigen in the sample may be below the detection limit of the test. Performed By: #### I NFLUAB #### [facility] [address] [place] [address] Dr. Tom Dotson INFLUENZA A AG Negative Normal NEGATIVE SEE COMMENT [facility] Comment on above: Performed By: #### I NFLUAB #### [facility] [address] [place] [address] Dr. Tom Dotson INFLUENZA B AG Negative Normal NEGATIVE SEE COMMENT [facility] Comment on above: Performed By: #### I NFLUAB #### [facility] [address] [place] [address] Dr. Tom Dotson LACTATE/LACTIC ACIDon 2022 Lactate [Moles/Vol] 0.7 mmol/L Normal 0.4-1.9 [facility] Comment on above: Performed By: #### L ACT #### [facility] [address] [place] [address] Dr. Tom Dotson PROF CHEM 8 (BAS METB)on Anion gap [Moles/Vol] 9.3 mmol/L Normal [facility] Comment on above: Performed By: #### H STROPN, BMP, BNP #### [facility] [address] [address] [address] Tom Dotson Calcium [Mass/Vol] 8.8 mg/dL Normal 8.5-10.1 [facility] Comment on above: Performed By: #### H STROPN, BMP, BNP #### [facility] [address] [address] [address] Tom Dotson Chloride [Moles/Vol] 103 mmol/L Normal 98-[address] [facility] Comment on above: Performed By: #### H STROPN, BMP, BNP #### [facility] [address] [place] [address] Dr. Tom Dotson CO2 [Moles/Vol] 31.1 mmol/L Normal 21.0-32.0 [facility] Comment on above: Performed By: #### H STROPN, BMP, BNP #### [facility] [address] [address] [address] Tom Dotson Creatinine [Mass/Vol] 0.77 mg/dL Normal 0.70-1.[address] [facility] Comment on above: Performed By: #### H STROPN, BMP, BNP #### [facility] [address] [address] [address] Tom Dotson EGFR-AF [place] >60 Normal >=60 [facility] Comment on above: Performed By: #### H STROPN, BMP, BNP #### [facility] [address] [address] [address] Tom Dotson EGFR-NON AF [place] >60 Normal >=[address] [facility] Comment on above: Performed By: #### H STROPN, BMP, BNP #### [facility] [address] [address] [address] Tom Dotson Glucose [Mass/Vol] 98 mg/dL Normal 74-106 [facility] [place] Comment on above: Performed By: #### H STROPN, BMP, BNP #### [facility] [address] [address] [address] Tom Dotson Potassium [Moles/Vol] 4.4 mmol/L Normal 3.5-5.[address] [facility] Comment on above: Performed By: #### H STROPN, BMP, BNP #### [facility] [address] [address] [address] Tom Dotson Sodium [Moles/Vol] 139 mmol/L Normal 136-145 [facility] Comment on above: Performed By: #### H STROPN, BMP, BNP #### [facility] [address] [address] [address] Tom Dotson Urea nitrogen [Mass/Vol] 13.0 mg/dL Normal 7.0-18.[address] [facility] Comment on above: Performed By: #### H STROPN, BMP, BNP #### [facility] [address] [place] [address] Dr. Tom Dotson Urea nitrogen/Creatinine [Mass ratio] 16.9 mg/mg Normal [facility] Comment on above: Performed By: #### H STROPN, BMP, BNP #### [facility] [address] [place] [address] Dr. Tom Dotson TROPONIN, HIGH SENSITIVITYon 09-25-2022 HSTROP 7.4 pg/mL Normal 4.0-76.[address] [facility] Comment on above: Result Comment: CUT- OFF POINTS HAVE BEEN ESTABLISHED BASED ON THE FOURTH UNIVERSAL DEFINITIONS OF MYOCARDIAL INFARCTION. THE UPPER REFERENCE LIMIT (URL) OF TROPONIN, DEFINED THE 99TH PERCENTILE OF cTnI DISTRIBUTION IN A REFERENCE POPULATION, HAS BEEN CONFIRMED THE DECISION THRESHOLD FOR [place] DIAGNOSIS. Performed By: #### I NFLUAB #### [facility] [address] [place] [address] Dr. Tom Dotson XR CHEST 1 Von 09-25-2022 XR CHEST 1 V EXAMINATION: XR CHEST 1 V HISTORY: SHORTNESS OF BREATH , [...] YARIEL OLSON Date: 2022-09-25 10:55 Normal [facility] ASPERGILLUS AB, QUANTITATIVE DIDon 04-20-2022 Aspergillus flavus Negative Normal Neg:<1:1 [facility] Comment on above: Performed By: #### A SPDID #### [facility] [address] [place] [address] Dr. Tom Dotson Aspergillus fumigatus Negative Normal Neg:<1:[address] [facility] Comment on above: Performed By: #### A SPDID #### [facility] [facility] [address] [place] [address] Dr. Tom Dotson Aspergillus niger Negative Normal Neg:<1:1 [facility] Comment on above: Performed By: #### A SPDID #### [facility] [address] [address] [address] Tom Dotson ANTI NEUTROPHIL CYTOPLASMIC AB (ANCA) PRon 04-19-2022 Anti-MPO Antibodies <0.2 Normal 0.0-0.9 [facility] Comment on above: Result Comment: Perf ormed at: BN Performed By: #### C BC #### [facility] [address] [place] [address] Dr. Tom Dotson Anti-PR3 Antibodies <0.2 Normal 0.0-0.9 [facility] Comment on above: Result Comment: Perf ormed at: BN Performed By: #### C BC #### [facility] [address] [place] [address] Dr. Tom Dotson Atypical pANCA <1:20 Normal Neg:<1:20 [facility] Comment on above: Result Comment: The atypical pANCA pattern has been observed in a significant percentage of patients with ulcerative colitis, primary sclerosing cholangitis and autoimmune hepatitis. Performed at: CB Performed By: #### C BC #### [facility] [address] [place] [address] Dr. Tom Dotson Cytoplasmic (C-ANCA) <1:20 Normal Neg:<1:[address] [facility] Comment on above: Result Comment: Perf ormed at: CB Performed By: #### C BC #### [facility] [address] [place] [address] Dr. Tom Dotson Perinuclear (P-ANCA) <1:20 Normal Neg:<1:[address] [facility] Comment on above: Result Comment: The presence of positive fluorescence exhibiting P-ANCA or C-ANCA patterns alone is not specific for the diagnosis of Nevin's Granulomatosis (WG) or microscopic polyangiitis. Decisions about treatment should not be based solely on ANCA IFA results. The [employer] Consensus recommends follow up testing of positive sera with both MI-3 and MPO-ANCA enzyme immunoassays. As many as 5% serum samples are positive only by EIA. Ref. AM J Clin Pathol 1999;111:507-513. Performed at: CB Performed By: #### C BC #### [facility] [address] [place] [address] Dr. Tom Dotson IMMUNOGLOBULIN E, TOTALon Immunoglobulin E, Total 68 IU/mL Normal 6-[address] [facility] Comment on above: Performed By: #### I GETOT #### [facility] [address] [place] [address] Dr. Tom Dotson ANGIOTENSION-CONVERTING ENZY ME (ELINOR)on 04-17-2022 ELINOR 28 U/L Normal 14-82 [facility] Comment on above: Performed By: #### A NGIOC #### [facility] [address] [place] [address] Dr. Tom Dotson CBC AUTO DIFFon 04-16-2022 BASO # 0.1 103/ul Normal 0.0-0.[address] [facility] Comment on above: Performed By: #### I NFLUAB #### [facility] [address] [place] [address] Dr. Tom Dotson Basophils/100 WBC (Bld) 1.0 % Normal 0.2-2.[address] [facility] Comment on above: Performed By: #### I NFLUAB #### [facility] [address] [place] [address] Dr. Tom Dotson EO # 0.0 103/ul Normal 0.0-0.7 [facility] Comment on above: Performed By: #### I NFLUAB #### [facility] [address] [place] [address] Dr. Tom Dotson Eosinophils/100 WBC (Bld) 0.1 % Critically low 0.9-7.0 [facility] Comment on above: Performed By: #### I NFLUAB #### [facility] [address] [place] [address] Dr. Tom Dotson Erythrocyte distribution width (RBC) [Ratio] 12.9 % Normal 11.0-15.0 [facility] Comment on above: Performed By: #### I NFLUAB #### [facility] [address] [place] [address] Dr. Tom Dotson Hematocrit (Bld) [Volume fraction] 44.8 % Normal 42.0-54.0 [facility] Comment on above: Performed By: #### I NFLUAB #### [facility] [address] [place] [address] Dr. Tom Dotson Hemoglobin (Bld) [Mass/Vol] 15.0 g/dL Normal 14.0-18.0 [facility] Comment on above: Performed By: #### I NFLUAB #### [facility] [address] [place] [address] Dr. Tom Dotson IG # 0.02 10e3/ul Normal 0.00-0.03 [facility] Comment on above: Performed By: #### I NFLUAB #### [facility] [address] [place] [address] Dr. Tom Dotson IG % 0.2 % Normal 0.0-0.5 [facility] Comment on above: Performed By: #### I NFLUAB #### [facility] [address] [place] [address] Dr. Tom Dotson LYMPH # 1.4 103/ul Normal 1.2-3.8 [facility] Comment on above: Performed By: #### I NFLUAB #### [facility] [address] [place] [address] Dr. Tom Dotson Lymphocytes/100 WBC (Bld) 17.6 % Critically low 20.5-60.[address] [facility] Comment on above: Performed By: #### I NFLUAB #### [facility] [address] [place] [address] Dr. Tom Dotson MANUAL DIFF REQ NO Normal [facility] Comment on above: Performed By: #### I NFLUAB #### [facility] [address] [place] [address] Dr. Tom Dotson MCH (RBC) [Entitic mass] 30.9 pg Normal 25.9-34.0 [facility] Comment on above: Performed By: #### I NFLUAB #### [facility] [address] [place] [address] Dr. Tom Dotson MCHC (RBC) [Mass/Vol] 33.5 g/dL Normal 29.9-35.2 [facility] Comment on above: Performed By: #### I NFLUAB #### [facility] [address] [place] [address] Dr. Tom Dotson MCV (RBC) [Entitic vol] 92.2 fL Normal 80.0-94.[address] [facility] Comment on above: Performed By: #### I NFLUAB #### [facility] [address] [place] [address] Dr. Tom Dotson MONO # 0.8 103/ul Normal 0.3-0.8 [facility] Comment on above: Performed By: #### I NFLUAB #### [facility] [address] [place] [address] Dr. Tom Dotson Monocytes/100 WBC (Bld) 9.6 % Normal 1.7-12.0 [facility] Comment on above: Performed By: #### I NFLUAB #### [facility] [address] [place] [address] Dr. Tom Dotson NEUT # 5.9 103/ul Normal 1.4-6.5 [facility] Comment on above: Performed By: #### I NFLUAB #### [facility] [address] [address] [address] Tom Dotson Neutrophils/100 WBC (Bld) 71.5 % Normal 43.0-75.[address] [facility] Comment on above: Performed By: #### I NFLUAB #### [facility] [address] [address] [address] Tom Dotson Platelet mean volume (Bld) [Entitic vol] 9.9 fL Normal 9.5-13.[address] [facility] Comment on above: Performed By: #### I NFLUAB #### [facility] [address] [place] [address] Dr. Tom Dotson PLT 325 103/ul Normal 150-[address] [facility] Comment on above: Performed By: #### I NFLUAB #### [facility] [address] [place] [address] Dr. Tom Dotsno RBC 4.86 106/ul Normal 4.70-6.10 [facility] Comment on above: Performed By: #### I NFLUAB #### [facility] [address] [place] [address] Dr. Tom Dotson WBC 8.2 103/ul Normal 4.0-11.0 [facility] Comment on above: Performed By: #### I NFLUAB #### [facility] [address] [place] [address] LUNG CANCER SCREENINGon [...] YARIEL OLSON Date: 2022-04-10 22:57 Normal [facility] CBC AUTO DIFFon 03-06-2022 BASO # 0.1 103/ul Normal 0.0-0.[address] [facility] Comment on above: Performed By: #### C BC #### [facility] [address] [address] [address] Tom Dotson Basophils/100 WBC (Bld) 1.0 % Normal 0.2-2.[address] [facility] Comment on above: Performed By: #### C BC #### [facility] [address] [address] [address] Tom Dotson EO # 2.5 103/ul Critically high 0.0-0.7 [facility] Comment on above: Performed By: #### C BC #### [facility] [address] [address] [address] Tom Dotson Eosinophils/100 WBC (Bld) 29.1 % Critically high 0.9-7.[address] [facility] Comment on above: Performed By: #### C BC #### [facility] [address] [address] [address] Tom Dotson Erythrocyte distribution width (RBC) [Ratio] 12.8 % Normal 11.0-15.[address] [facility] Comment on above: Performed By: #### C BC #### [facility] [address] [address] [address] Tom Dotson Hematocrit (Bld) [Volume fraction] 46.6 % Normal 42.0-54.[address] [facility] Comment on above: Performed By: #### C BC #### [facility] [address] [place] [address] Dr. Tom Dotson Hemoglobin (Bld) [Mass/Vol] 14.4 g/dL Normal 14.0-18.[address] [facility] Comment on above: Performed By: #### C BC #### [facility] [address] [place] [address] Dr. Tom Dotson IG # 0.04 10e3/ul Critically high 0.00-0.03 [facility] Comment on above: Performed By: #### C BC #### [facility] [address] [place] [address] Dr. Tom Dotson IG % 0.5 % Normal 0.0-0.[address] [facility] Comment on above: Performed By: #### C BC #### [facility] [address] [place] [address] Dr. Tom Dotson LYMPH # 1.3 103/ul Normal 1.2-3.[address] [facility] Comment on above: Performed By: #### C BC #### [facility] [address] [place] [address] Dr. Tom Dotson Lymphocytes/100 WBC (Bld) 15.1 % Critically low 20.5-60.[address] [facility] Comment on above: Performed By: #### C BC #### [facility] [address] [place] [address] Dr. Tom Dotson MANUAL DIFF REQ NO Normal [facility] Comment on above: Performed By: #### C BC #### [facility] [address] [place] [address] Dr. Tom Dotson MCH (RBC) [Entitic mass] 29.5 pg Normal 25.9-34.[address] [facility] Comment on above: Performed By: #### C BC #### [facility] [address] [place] [address] Dr. Tom Dotson MCHC (RBC) [Mass/Vol] 30.9 g/dL Normal 29.9-35.[address] [facility] Comment on above: Performed By: #### C BC #### [facility] [address] [address] [address] Tom Dotson MCV (RBC) [Entitic vol] 95.5 fL Critically high 80.0-94.[address] [facility] Comment on above: Performed By: #### C BC #### [facility] [address] [address] [address] Tom Dotson MONO # 0.8 103/ul Normal 0.3-0.[address] [facility] Comment on above: Performed By: #### C BC #### [facility] [address] [address] [address] Tom Dotson Monocytes/100 WBC (Bld) 9.5 % Normal 1.7-12.[address] [facility] Comment on above: Performed By: #### C BC #### [facility] [address] [address] [address] Tom Dotson NEUT # 3.9 103/ul Normal 1.4-6.[address] [facility] Comment on above: Performed By: #### C BC #### [facility] [address] [address] [address] Tom Dotson Neutrophils/100 WBC (Bld) 44.8 % Normal 43.0-75.[address] [facility] Comment on above: Performed By: #### C BC #### [facility] [address] [address] [address] Tom Dotson Platelet mean volume (Bld) [Entitic vol] 10.2 fL Normal 9.5-13.[address] [facility] Comment on above: Performed By: #### C BC #### [facility] [address] [address] [address] Tom Dotson PLT 328 103/ul Normal 150-450 [facility] Comment on above: Performed By: #### C BC #### [facility] [address] [address] [address] Tom Dotson RBC 4.88 106/ul Normal 4.70-6.10 [facility] Comment on above: Performed By: #### C BC #### [facility] [address] [place] [address] Dr. Tom Dotson WBC 8.7 103/ul Normal 4.0-11.[address] [facility] Comment on above: Performed By: #### C BC #### [facility] [address] [place] [address] Dr. Tom Dotson DIFFERENTIAL MANUALon 2021 ATYPICAL LYMPH # 0.09 103/ul Normal [facility] Comment on above: Performed By: #### D IFF #### [facility] [address] [place] [address] Dr. Tom Dotson ATYPICAL LYMPH % 1 % Normal [facility] Comment on above: Performed By: #### D IFF #### [facility] [address] [place] [address] Dr. Tom Dotson BAND # 0.0 103/ul Normal 0.0-0.[address] [facility] Comment on above: Performed By: #### D IFF #### [facility] [address] [place] [address] Dr. Tom Dotson BAND % 0 % Normal 0-[address] [facility] Comment on above: Performed By: #### D IFF #### [facility] [address] [place] [address] Dr. Tom Dotson BASOM # 0.00 103/ul Normal 0.00-0.[address] [facility] Comment on above: Performed By: #### D IFF #### [facility] [address] [place] [address] Dr. Tom Dotson BASOM % 0.0 % Critically low 0.2-2.0 [facility] Comment on above: Performed By: #### D IFF #### [facility] [address] [place] [address] Dr. Tom Dotson BLAST # Normal [facility] Comment on above: Performed By: #### D IFF #### [facility] [address] [place] [address] Dr. Tom Dotson BLAST % Normal [facility] Comment on above: Performed By: #### D IFF #### [facility] [address] [address] [address] Tom Dotson CORRECTED WBC Normal 4.0-11.0 [facility] Comment on above: Performed By: #### D IFF #### [facility] [address] [address] [address] Tom Dotson EOS # 1.22 103/ul Critically high 0.00-0.70 [facility] Comment on above: Performed By: #### D IFF #### [facility] [address] [place] [address] Dr. Tom Dotson EOS% 14.0 % Critically high 0.9-7.0 [facility] Comment on above: Performed By: #### D IFF #### [facility] [address] [place] [address] Dr. Tom Dotson LYMPHM # 1.91 103/ul Normal 1.20-3.80 [facility] Comment on above: Performed By: #### D IFF #### [facility] [address] [place] [address] Dr. Tom Dotson LYMPHM% 22.0 % Normal 20.5-60.0 [facility] Comment on above: Performed By: #### D IFF #### [facility] [address] [place] [address] Dr. Tom Dotson METAMYELOCYTE # Normal [facility] Comment on above: Performed By: #### D IFF #### [facility] [address] [place] [address] Dr. Tom Dotson METAMYELOCYTE % Normal [facility] Comment on above: Performed By: #### D IFF #### [facility] [address] [address] [address] Tom Dotson MONOM# 0.52 103/ul Normal 0.30-0.80 [facility] Comment on above: Performed By: #### D IFF #### [facility] [address] [place] [address] Dr. Tom Dotson MONOM% 6.0 % Normal 1.7-12.0 [facility] Comment on above: Performed By: #### D IFF #### [facility] [address] [address] [address] Tom Dotson MYELOCYTE # Normal [facility] Comment on above: Performed By: #### D IFF #### [facility] [address] [address] [address] Tom Dotson MYELOCYTE % Normal [facility] Comment on above: Performed By: #### D IFF #### [facility] [address] [address] [address] Tom Dotson NRBC Normal [facility] Comment on above: Performed By: #### D IFF #### [facility] [address] [place] [address] Dr. Tom Dotson SEG # 4.96 103/ul Normal 1.40-6.[address] [facility] Comment on above: Performed By: #### D IFF #### [facility] [address] [place] [address] Dr. Tom Dotson SEG % 57.0 % Normal 43.0-75.[address] [facility] Comment on above: Performed By: #### D IFF #### [facility] [address] [place] [address] Dr. Tom Dotson WBC 8.7 103/ul Normal 4.0-11.[address] [facility] Comment on above: Performed By: #### D IFF #### [facility] [address] [place] [address] Dr. Tom Dotson LIPID PROFILEon 03-06-2022 CHOL-HDL RATIO NORM SEE BELOW Normal [facility] Comment on above: Result Comment: 3.3 - 4.4 LOW RISK 4.4 - 7.1 AVERAGE RISK 7.1 - 11.0 MODERATE RISK >11.0 HIGH RISK Performed By: #### I NFLUAB #### [facility] [address] [place] [address] Dr. Tom Dotson Cholesterol [Mass/Vol] 135 mg/dL Normal <=[address] [facility] Comment on above: Performed By: #### I NFLUAB #### [facility] [address] [address] [address] Tom Dotson Cholesterol in HDL [Mass/Vol] 51 mg/dL Normal 40-[address] [facility] Comment on above: Performed By: #### I NFLUAB #### [facility] [address] [address] [address] Tom Dotson Cholesterol in LDL [Mass/Vol] 74.4 mg/dL Normal [facility] Comment on above: Performed By: #### I NFLUAB #### [facility] [address] [address] [address] Tom Dotson Cholesterol.total/Ch olesterol in HDL [Mass ratio] 2.6 {ratio} Normal [facility] Comment on above: Performed By: #### I NFLUAB #### [facility] [address] [address] [address] Tom Dotson HDL NORMAL > or = 60 mg/dl - LOW CARDIOVASCULAR RISK <40 mg/dl - HIGH CARDIOVASCULAR RISK Normal [facility] Comment on above: Performed By: #### I NFLUAB #### [facility] [address] [address] [address] Tom Dotson LDL CALC NORMAL SEE BELOW Normal [facility] Comment on above: Result Comment: <100 mg/dl OPTIMAL 100 - 129 mg/dl NEAR OR ABOVE OPTIMAL 130 - 159 mg/dl BORDERLINE HIGH 160 - 189 mg/dl HIGH >190 mg/dl VERY HIGH Performed By: #### I NFLUAB #### [facility] [address] [address] [address] Tom Dotson Triglyceride [Mass/Vol] 48 mg/dL Normal <=150 [facility] Comment on above: Performed By: #### I NFLUAB #### [facility] [address] [address] [address] Tom Dotson VLDL CALC 9.6 mg/dL Normal [facility] Comment on above: Performed By: #### I NFLUAB #### [facility] [address] [address] [address] Tom Dotson PROF 14(COMP METB)on 022 Albumin [Mass/Vol] 3.8 g/dL Normal 3.4-5.0 [facility] Comment on above: Performed By: #### I NFLUAB #### [facility] [address] [place] [address] Dr. Tom Dotson Albumin/Globulin [Mass ratio] 1.1 {ratio} Normal [facility] Comment on above: Performed By: #### I NFLUAB #### [facility] [address] [address] [address] Tom Dotson ALP [Catalytic activity/Vol] 62 U/L Normal 46-[address] [facility] Comment on above: Performed By: #### I NFLUAB #### [facility] [address] [place] [address] Dr. Tom Dotson ALT [Catalytic activity/Vol] 25 U/L Normal 16-[address] [facility] Comment on above: Performed By: #### I NFLUAB #### [facility] [address] [place] [address] Dr. Tom Dotson Anion gap [Moles/Vol] 9.8 mmol/L Normal [facility] Comment on above: Performed By: #### I NFLUAB #### [facility] [address] [place] [address] Dr. Tom Dotson AST [Catalytic activity/Vol] 15 U/L Normal 15-[address] [facility] Comment on above: Performed By: #### I NFLUAB #### [facility] [address] [place] [address] Dr. Tom Dotson Bilirubin [Mass/Vol] 0.9 mg/dL Normal 0.2-1.[address] [facility] Comment on above: Performed By: #### I NFLUAB #### [facility] [address] [place] [address] Dr. Tom Dotson Calcium [Mass/Vol] 8.8 mg/dL Normal 8.5-10.1 [facility] [place] Comment on above: Performed By: #### I NFLUAB #### [facility] [address] [place] [address] Dr. Tom Dotson Chloride [Moles/Vol] 102 mmol/L Normal 98-[address] [facility] Comment on above: Performed By: #### I NFLUAB #### [facility] [address] [address] [address] Tom Dotson CO2 [Moles/Vol] 30.5 mmol/L Normal 21.0-32.0 [facility] Comment on above: Performed By: #### I NFLUAB #### [facility] [address] [address] [address] Tom Dotson Creatinine [Mass/Vol] 0.95 mg/dL Normal 0.70-1.30 [facility] Comment on above: Performed By: #### I NFLUAB #### [facility] [address] [place] [address] Dr. Tom Dotson EGFR-AF NORTHER[place] IRISH >60 Normal >=60 [facility] Comment on above: Performed By: #### I NFLUAB #### [facility] [address] [place] [address] Dr. Tom Dotson EGFR-NON AF [place]THER[place]ISH >60 Normal >=[address] [facility] Comment on above: Performed By: #### I NFLUAB #### [facility] [address] [address] [address] Tom Dotson Globulin (S) [Mass/Vol] 3.4 g/dL Normal [facility] Comment on above: Performed By: #### I NFLUAB #### [facility] [address] [place] [address] Dr. Tom Dotson Glucose [Mass/Vol] 85 mg/dL Normal 74-106 [facility] [place] Comment on above: Performed By: #### I NFLUAB #### [facility] [address] [address] [address] Tom Dotson Potassium [Moles/Vol] 4.3 mmol/L Normal 3.5-5.1 [facility] Comment on above: Performed By: #### I NFLUAB #### [facility] [address] [address] [address] Tom Dotson Protein [Mass/Vol] 7.2 g/dL Normal 6.4-8.2 [facility] Comment on above: Performed By: #### I NFLUAB #### [facility] [address] [address] [address] Tom Dotson Sodium [Moles/Vol] 138 mmol/L Normal 136-145 [facility] Comment on above: Performed By: #### I NFLUAB #### [facility] [address] [address] [address] Tom Dotson Urea nitrogen [Mass/Vol] 14.0 mg/dL Normal 7.0-18.[address] [facility] Comment on above: Performed By: #### I NFLUAB #### [facility] [address] [address] [address] Tom Dotson Urea nitrogen/Creatinine [Mass ratio] 14.7 mg/mg Normal [facility] Comment on above: Performed By: #### I NFLUAB #### [facility] Laboratory [address] [address] [address] Tom Dotson TSHon 03-06-2022 TSH 1.010 uIU/mL Normal 0.358-3.740 [facility] Comment on above: Performed By: #### I NFLUAB #### [facility] [address] [place] [address] Dr. Tom Dotson Hepatic Panelon 09-02-2019 Albumin [Mass/Vol] 3.2 g/dL Normal 3.2-5.5 [facility] Comment on above: Performed By: #### H EPATIC, LIPID, TSH3 wRFLX, [id number] #### [facility] [address] Albumin/Globulin [Mass ratio] 1.1 {ratio} Normal [facility] Comment on above: Performed By: #### H EPATIC, LIPID, TSH3 wRFLX, [id number] #### [facility] [address] ALP [Catalytic activity/Vol] 38 U/L Normal 32-92 [facility] Comment on above: Performed By: #### H EPATIC, LIPID, TSH3 wRFLX, [id number] #### [facility] [address] ALT [Catalytic activity/Vol] 14 U/L Normal 10-60 [facility] Comment on above: Performed By: #### H EPATIC, LIPID, TSH3 wRFLX, [id number] #### [address] AST [Catalytic activity/Vol] 13 U/L Normal 10-42 [facility] Comment on above: Performed By: #### H EPATIC, LIPID, TSH3 wRFLX, [id number] #### [address] Bilirubin [Mass/Vol] 0.9 mg/dL Normal 0.3-1.2 [facility] Comment on above: Performed By: #### H EPATIC, LIPID, TSH3 wRFLX, [id number] #### [address] Bilirubin,Indirect 0.8 mg/dL Normal [facility] Comment on above: Performed By: #### H EPATIC, LIPID, TSH3 wRFLX, [id number] #### [address] Bilirubin.direct [Mass/Vol] 0.1 mg/dL Normal 0.0-0.4 [facility] Comment on above: Performed By: #### H EPATIC, LIPID, TSH3 wRFLX, [id number] #### [facility] [address] [place] [address] Globulin (S) [Mass/Vol] 2.9 g/dL Normal [facility] Comment on above: Performed By: #### H EPATIC, LIPID, TSH3 wRFLX, [id number] #### [address] Protein [Mass/Vol] 6.1 g/dL Normal 6.1-7.9 [facility] Comment on above: Performed By: #### H EPATIC, LIPID, TSH3 wRFLX, [id number] #### [place] [address] Lipid Panelon 09-02-2019 Cholesterol [Mass/Vol] 158 mg/dL Normal 140-200 [facility] Comment on above: Result Comment: Chol less than 200 mg/dl low risk Chol 201-239 mg/dl borderline risk Chol 240 mg/dl and greater high risk Performed By: #### H EPATIC, LIPID, TSH3 wRFLX, [id number] #### [facility] [address] Cholesterol in HDL [Mass/Vol] 61 mg/dL Normal 29-71 [facility] Comment on above: Result Comment: HDL CHOL ATP-III CLASSIFICATION Cardiovascular Risk HDL > or equal to 60 mg/dL LOW HDL < 40 mg/dL HIGH Performed By: #### H EPATIC, LIPID, TSH3 wRFLX, [id number] #### [facility] [address] Cholesterol.total/Ch olesterol in HDL [Mass ratio] 2.6 {ratio} Normal <5.0 [facility] Comment on above: Performed By: #### H EPATIC, LIPID, TSH3 wRFLX, [id number] #### [facility] [address] LDL Cholesterol,Calculat ed 84 mg/dL Normal 0-100 [facility] Comment on above: Result Comment: LDL ATP III CLASSIFICATION LDL less than 100 mg/dL Optimal LDL 100-129 mg/dL Near or above optimal LDL 130-159 mg/dL Borderline high LDL 160-189 mg/dL High LDL greater than 189 mg/dL Very high Performed By: #### H EPATIC, LIPID, TSH3 wRFLX, [id number] #### [facility] [address] Triglyceride w/Reflex 63 mg/dL Normal 35-149 [facility] Comment on above: Result Comment: TRIG ATP III CLASSIFICATION TRIG less than 150 mg/dL Normal TRIG 150-199 mg/dL Borderline high TRIG 200-500 mg/dL High TRIG greater than 500 mg/dL Very high Standard traceable to the Center for Disease Conrtrol and Prevention (CDC) test method. Performed By: #### H EPATIC, LIPID, TSH3 wRFLX, [id number] #### [facility] [address] [place] [address] VLDL CHOLESTEROL 12 mg/dL Normal [facility] Comment on above: Performed By: #### H EPATIC, LIPID, TSH3 wRFLX, [id number] #### [facility] [address] [place] [address] Thyroid Stim Hormone w/Rflxo n 09-02-2019 Thyroid Stim Hormone w/Rflx 1.92 u[iU]/mL Normal 0.45-5.33 [facility] Comment on above: Performed By: #### H EPATIC, LIPID, TSH3 wRFLX, [id number] #### [facility] [address] [place] [address] Vitamin D 25 Hydroxy Totalon 09-02-2019 Vitamin D 25 Hydroxy Total 11.9 ng/mL Low 30-100 [facility] Comment on above: Result Comment: DAE MIN D STATUS 25(OH)VITAMIN D RANGE (ng/mL) Deficient <20 Insufficient 20 to <30 Sufficient 30 to 100 Reference: Darrion MF,Zane NC, Hanna AVELAR, et al. Evaluation,treatment, and prevention of vitamin D deficiency; an Endocrine Society clinical practice guideline. JCEM. 2010; 96(7):1911-30. PERFORMED BY: [place] [address] PATHOLOGIST POLICE COMMANDING OFFICER MIGUELINA FLOOD M.D. Performed By: #### H EPATIC, LIPID, TSH3 wRFLX, [id number] #### [facility] [address] [place] [address] Vital Signs Date Time Vital Sign Value Performing Clinician Madan mayer 08-16-2024 13:20-0500 Body height 185.4 cm Azul Quezada [employer] 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 Phone: [facility] 08-16-2024 13:20-0500 Body mass index (BMI) [Ratio] 25.17 kg/m2 Azul Quezada NP Work Phone: [facility] 08-16-2024 13:20-0500 Body temperature 98.29 [degF] Azul Leidyhholz [employer] 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 Phone: [facility] 08-16-2024 13:20-0500 Body weight 86.55 kg Azul Aichholz [employer] 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 Phone: [facility] 08-16-2024 13:20-0500 Diastolic blood pressure 78 mm[Hg] Azul Aichholz [employer] 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 Phone: [facility] 08-16-2024 13:20-0500 Heart rate 77 /min Azul Aichholz [employer] 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 Phone: [facility] 08-16-2024 13:20-0500 Respiratory rate 24 /min Azul Aichholz [employer] 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 Phone: [facility] 08-16-2024 13:20-0500 SaO2% (BldA) [Mass fraction] 97 % Azul Aichholz [employer] 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 Phone: [facility] 08-16-2024 13:20-0500 Systolic blood pressure 116 mm[Hg] Azul Aichholz [employer] 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 Phone: [facility] 10-30-2023 10:00-0500 Body height 185.4 cm Azul Aichholz [employer] 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 Phone: [facility] 10-30-2023 10:00-0500 Body mass index (BMI) [Ratio] 26.84 kg/m2 Azul Aichholz [employer] 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 Phone: [facility] 10-30-2023 10:00-0500 Body temperature 97.11 [degF] Azul Aichholz [employer] 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 Phone: [facility] 10-30-2023 10:00-0500 Body weight 92.26 kg Azul Aichholz [employer] 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 Phone: [facility] 10-30-2023 10:00-0500 Diastolic blood pressure 78 mm[Hg] Azul Aichholz [employer] 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 Phone: [facility] 10-30-2023 10:00-0500 Heart rate 83 /min Azul Leerani [employer] 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 Phone: [facility] 10-30-2023 10:00-0500 Respiratory rate 16 /min Azul Leidymaxrani [employer] 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 Phone: [facility] 10-30-2023 10:00-0500 SaO2% (BldA) [Mass fraction] 94 % Azul Leidymaxrani [employer] 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 Phone: [facility] 10-30-2023 10:00-0500 Systolic blood pressure 138 mm[Hg] Azul Damien [employer] 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 Phone: [facility] Encounters Encounter Date Encounter Type Care Provider Facility Start: 08-16-2024 End: 08-16-2024 Bamboo flowsheet Azul Damien [employer] 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 Phone: [facility] Start: 08-16-2024 End: 08-16-2024 Bamboo flowsheet Azul Leerani [employer] 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 Phone: [facility] Start: 08-16-2024 End: 08-16-2024 Office outpatient visit 25 minutes Azul Damien [employer] 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 Phone: [facility] Comment on above: Depression with anxi ety (Primary Dx); Primary insomnia; Cerebrovascular accident (CVA), unspecified mechanism (CMS/HCC); Centrilobular emphysema (CMS/HCC); Bilateral carotid artery stenosis; Sessile colonic polyp; Smoker; Needs flu shot; Former smoker; Insomnia, unspecified Start: 08-16-2024 End: 08-16-2024 ambulatory 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 Not Available Start: 07-06-2024 End: 07-06-2024 Clinisync Result Encounter Generic External Data Provider [facility] Unsolicited Start: 07-06-2024 End: 07-06-2024 Clinisync Result Encounter Generic External Data Provider [facility] Unsolicited Start: 05-31-2024 End: 05-31-2024 ambulatory IBETH TORRES Not Available Start: 05-19-2024 End: 05-19-2024 ambulatory AZUL LEEHOLZ Not Available Start: 02-18-2024 End: 02-18-2024 ambulatory AZUL AICMaxHOLZ Not Available Start: 12-15-2023 End: 12-15-2023 ambulatory AZUL AICHHOLZ Not Available Start: 11-13-2023 Patient encounter procedure Generic Provider [facility] Start: 11-13-2023 End: 11-13-2023 ambulatory AZUL LEEHOLZ Not Available Start: 10-30-2023 End: 10-30-2023 Office outpatient visit 15 minutes Azul Leeholz [employer] 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 Phone: [facility] Comment on above: Influenza (Primary D x); Marijuana abuse; Smoker; BMI 26.0-26.9,adult; Centrilobular emphysema ([facility]) Start: 10-30-2023 End: 10-30-2023 ambulatory AZUL LEEHOLZ Not Available Start: 10-21-2023 Clinisync Result Encounter Generic External Data Provider [facility] Unsolicited Start: 10-21-2023 Clinisync Result Encounter Generic External Data Provider [facility] Unsolicited Start: 09-25-2022 End: 09-25-2022 ambulatory ZANE QUEZADA Facility:[facility]1 Start: 04-16-2022 End: 04-17-[address] [facility] Facility:[facility]1 Start: 04-10-2022 End: 04-11-[address] [facility] Facility:[facility]1 Start: 03-06-2022 End: 03-07-2022 ambulatory ZANE QUEZADA Facility:[facility]1 Procedures Date Procedure Procedure Detail Performing Clinician Start: 07-06-2024 ALL CBC WITH AUTO DIFF Generic External Data Provider Start: 06-15-2024 Colonoscopy Generic Pr ovider Start: 10-21-2023 BLOOD CULTURE 2 Generic External Data Provider Start: 10-21-2023 BLOOD CULTURE 1 Generic External Data Provider Start: 03-06-2022 PSA screening [facility] Comment on above: Performed By: #### P [facility] #### [facility] [address] [place] [address] Dr. Tom Dotson Plan of Treatment Date Care Activity Detail Author Start: 06-15-2029 Screening for malign ant neoplasm of colon [facility] Start: 11-13-2024 Medicare Annual Well ness (AWV) Medicare Annual Wellness (AWV) [facility] Start: 08-16-2024 End: 08-16-2024 Patient encounter procedure [facility] Comment on above: Primary insomnia (Pr imary Dx); Cerebrovascular accident (CVA), unspecified mechanism (CMS/HCC); Centrilobular emphysema (CMS/HCC); Bilateral carotid artery stenosis; Sessile colonic polyp; Smoker; Depression with anxiety Start: 08-04-2024 Screening for malign ant neoplasm of colon [facility] Start: 2024 Influenza vaccination Influenza Vacc ine (#1) [facility] Start: 03-21-2024 Influenza vaccination Influenza Vacc ine (#1) [facility] Comment on above: Postponed from 05/23 (Patient Refused) Start: 11-13-2023 End: 11-13-2023 Patient encounter procedure 11/13/2023 9:40 AM EST Office Visit [facility] [address] [place] [address] Azul Quezada, [employer] 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 [address] [place] [id number] [facility] Start: 10-30-2023 End: 10-30-2023 Patient encounter procedure 10/30/2023 10:00 AM EST Office Visit [facility] [address] [place] [address] Azul Quezada, [employer] 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 [address] [place] [address] [facility] Start: 2023 Influenza vaccination Influenza Vacc ine (#1) [facility] Start: 1960 Medicare Annual Well ness (AWV) Medicare Annual Wellness (AWV) [facility] Start: 1960 Screening for malign ant neoplasm of colon [facility] BLOOD CULTURE 1 BLOOD CULTURE 1 Lab Routine 10/21/2023 12:27 PM EST [facility] BLOOD CULTURE 2 BLOOD CULTURE 2 Lab Routine 10/21/2023 12:30 PM EST [facility] Immunizations Immunization Date Immunization Notes Care Provider Yrn hernandez 08-16-2024 Influenza, injectabl e, Madin Marjan Canine Kidney, preservative free, quadrivalent Azul Aichholz [employer] 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 Phone: [facility] 2020 influenza, live, intranasal, quadrivalent Azul Aichholz [employer] 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 Phone: [facility] 2020 influenza virus vacc ine, unspecified formulation Generic Provider [facility] 08-04-2019 influenza, high dose seasonal, preservative-free Azul Aichholz [employer] 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 Phone: [facility] 07-05-2015 influenza, injectabl e, quadrivalent, preservative free Generic Provider [facility] Payers Date Payer Category Payer Medicare [id number] 1993 Medicare [id number] 1960 Unknown [id number] 2.16.84 [id number] 1960 Unknown [id number] 2.16.84 [id number] 1960 Unknown [id number] 2.16.84 [id number] 1960 Unknown [id number] 2.16.84 [id number] 1960 Unknown [id number] 2.16.84 [id number] 1960 Unknown [id number] 2.16.84 [id number] 1960 Unknown [id number] 2.16.84 [id number] 1960 Unknown [id number] 2.16.84 [id number] 1960 Unknown [id number] 2.16.84 [id number] 1960 Unknown [id number] 2.16.84 [id number] 1960 Unknown [id number] 2.16.84 [id number] 1959 Medicaid [id number] 1959 Unknown [id number] Social History Date Type Detail Facility Tobacco smoking status [facility] 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 unknown [facility] Start: 1960 Sex Assigned At Not on file [facility] Start: 10-30-2023 End: 11-13-2023 Gender identity Not on file [facility] Start: 10-30-2023 Tobacco smoking status [facility] Ex-smoke r [facility] Start: 03-22-1984 End: 03-22-2019 History of tobacco use Current smoker [facility] Start: 03-22-1984 End: 03-22-2019 History of tobacco use Cigarette Smoker [facility] Start: 10-30-2023 End: 11-13-2023 Cigarettes smoked current (pack per day) - Reported 1 [facility] Start: 10-30-2023 Tobacco use and exposure Smoke less tobacco non-user [facility] Start: 10-30-2023 End: 08-16-2024 Alcohol intake Current drinker of alcohol (finding) [facility] Start: 10-28-2023 Alcohol Comment coffee more th an 4 cups per day [facility] Within the last year , have you been afraid of your partner or ex-partner? No [facility] Do you belong to any clubs or organizations such as worship groups, unions, fraternal or athletic groups, or school groups? Yes [facility] Are you now , , , , never or living with a partner? [facility] How often to you hav e a drink containing alcohol? Never [facility] How many standard dr inks containing alcohol do you have on a typical day? Patient does not drink [facility] Do you feel stress - tense, restless, nervous, or anxious, or unable to sleep at night because your mind is troubled all the time - these days [OSQ] Only a little [facility] (I/We) worried wheth er (my/our) food would run out before (I/we) got money to buy more. Never true [facility] History of Present illness Narrative 08-16-2024 Azul Quezada NP - 08/16/2024 1:38 PM RACHEL NOBLE - 08/16/2024 1:20 PM Elvis Quezada NP - 08/16/2024 1:20 PM Elvis Quezada NP - 08/16/2024 7:27 AM EST Note Date & Type Note Facility 08-16-2024 History of Presen t illness Narrative Associated Problem(s): Former smoker Quit smoking, and no smoking THC!! Great job Pt is more fatigue and tired. Pt is working 3 days a week Images from the original note were not included. Sam Carrasco is a 64 y.o. male presents with chief complaint of No chief complaint on file. HPI: Here for recheck: Depression/anxiety: SSRI, trazodone, no SI/HI/hallucinations. No side effects from meds COPD: +dyspnea, +cough, Wheeze at times, continues to smoke THC, follows with samsa, needs flu shot Does have fatigue, SUBJECTIVE: MEDICATIONS: Current Outpatient Medications Medication Instructions albuterol HFA 90 mcg/act inhaler 2 puffs, Every 4 hours PRN albuterol 2.5 mg, 4 times daily PRN aspirin 81 mg, Daily atorvastatin (LIPITOR) 40 mg, Oral, Daily budesonide-formoterol (Symbicort) 160-4.5 MCG/ACT inhaler 2 puffs, 2 times daily RT EPINEPHrine (Epipen) 0.3 MG/0.3ML injection syringe 1 Syringe, Once FLUoxetine (PROZAC) 20 mg, Oral, Daily ipratropium-albuterol (Duo-Neb) 0.5-2.5 mg/3 mL nebulizer solution 3 mL, 4 times daily RT tiotropium (Spiriva Respimat) 2.5 MCG/ACT inhaler 2 puffs, Daily traZODone (DESYREL) 50 mg, Oral, Nightly triamcinolone (Nasacort) 55 MCG/ACT nasal inhaler 2 sprays, Daily ALLERGIES: Allergies Allergen Reactions Bee Venom Unknown REVIEW OF SYMPTOMS: Review of Systems Constitutional: Negative for activity change, appetite change and unexpected weight change. HENT: Negative for [...] hematuria. Skin: Negative for color change. Neurological: Positive for numbness (bilat hands in the morning then resolves). Negative for dizziness, tremors and seizures. Psychiatric/Behavioral: Negative for agitation, decreased concentration, hallucinations, self-injury and suicidal ideas. The patient is nervous/anxious. Hematological: Negative for adenopathy. Does not bruise/bleed easily. Depression Endocrine: Negative for cold intolerance, heat intolerance, polydipsia and polyuria. Allergic/Immunologic: Negative for environmental allergies and food allergies. PAST MEDICAL HISTORY Past Medical History: Diagnosis Date Alcohol abuse Allergic rhinitis Bilateral carotid artery stenosis Calcified lymph nodes Centrilobular emphysema (CMS/HCC) COVID-19 07/2019 CVA (cerebral vascular accident) ([facility]) Degenerative cervical disc Depression with anxiety Insomnia Marijuana abuse 10/30/2023 Multiple pulmonary nodules Neck mass 2014 Osteoarthritis Papule of skin 11/13/2023 Pigmented skin lesion of uncertain nature Rheumatic fever Stroke ([facility]) 07/2020 Testicle lump Tourette's ([facility]) Vertebral artery occlusion Vocal cord polyp Past Surgical History: Procedure Laterality Date ADENOIDECTOMY CAROTID STENT Right 09/2019 stent, RT carotid CT GUIDED TRANSVAGINAL TRANSRECTAL FLUID DRAIN 06/09/2020 CT GUIDED TRANSVAGINAL TRANSRECTAL FLUID DRAIN 06/09/2020 OTHER SURGICAL HISTORY Removal of Polyp Vocal area and Vocal Cord cyst MI EXCISION THYROGLOSSAL DUCT CYST/SINUS Procedure:DL, e/o thyroglossal duct cyst;Disease:neck mass TONSILLECTOMY family history includes Asthma in his mother; Diabetes in his mother; Heart attack in his father; Hypertension in his mother. OBJECTIVE: Visit Vitals BP 116/78 (BP Location: Left arm, Patient Position: Sitting, BP Cuff Size: Adult long) Pulse 77 Temp 98.3 F (Temporal) Resp 24 Ht 6' 1 Wt 190 lb 12.8 oz SpO2 97% BMI 25.17 kg/m Smoking Status Former BSA 2.11 m Physical Exam Vitals and nursing note reviewed. Constitutional: General: He is not in acute distress. Appearance: Normal appearance. He is normal weight. HENT: Head: Normocephalic. Right Ear: External ear normal. Left Ear: External ear normal. Nose: Nose normal. Mouth/Throat: Mouth: Mucous membranes are moist. Pharynx: Oropharynx is clear. Eyes: Extraocular Movements: Extraocular movements intact. Conjunctiva/sclera: Conjunctivae normal. Neck: Vascular: No carotid bruit. Cardiovascular: Rate and Rhythm: Normal rate and regular rhythm. Pulses: Normal pulses. Heart sounds: Normal heart sounds. Pulmonary: Effort: Pulmonary effort is normal. Breath sounds: Wheezing (exp>inspiratory,) and rhonchi present. Abdominal: General: Bowel sounds are normal. Palpations: Abdomen is soft. Tenderness: There is no abdominal tenderness. There is no guarding. Musculoskeletal: Cervical back: Neck supple. Right lower leg: No edema. Left lower leg: No edema. Lymphadenopathy: Cervical: No cervical adenopathy. Skin: General: Skin is warm and dry. Capillary Refill: Capillary refill takes 2 to 3 seconds. Findings: No rash. Neurological: General: No focal deficit present. Mental Status: He is alert. Psychiatric: Mood and Affect: Mood normal. Behavior: Behavior normal. Thought Content: Thought content normal. Judgment: Judgment normal. ASSESSMENT AND PLAN: Follow up in about 3 months (around 11/16/2024) for Recheck. Problem List Items Addressed This Visit CVA (cerebral vascular accident) (CMS/HCC) No focal weakness Continues as directed by neurology RESOLVED: Smoker The patient has been advised of the risks of continued smoking: stroke, TN, all forms of cancer, lung disease, and . Options for quitting smoking include: cold turkey, hypnosis, acupuncture, nicotine replacement meds (gum, lozenges, and patches), Buproprion, and Varenicline. At this time pt is encouraged to evaluate their goals for wanting to quit smoking, and reach out to provider when ready to start this process Insomnia - Primary Continue with trazodone Centrilobular emphysema (CMS/HCC) Continue with pulmonology Continue with inhaler Bilateral carotid artery stenosis Cont with vascular Depression with anxiety Continue with fluoxetine at current dose Fu in 3 months Relevant Medications FLUoxetine (PROzac) 20 MG capsule Sessile colonic polyp Has been referred to Gen Surgery for colonoscopy Needs flu shot Relevant Orders Flu vaccine, MDCK, quadrivalent, PF ([id number]) (Flucelvax single dose syringe) (Completed) Former smoker Quit smoking, and no smoking THC!! Great job Other Visit Diagnoses Insomnia, unspecified Relevant Medications traZODone (Desyrel) 50 MG tablet Associated Problem(s): Sessile colonic polyp Has been referred to [facility] Surgery for colonoscopy Associated Problem(s): Depression with anxiety Continue with fluoxetine at current dose Fu in 3 months Associated Problem(s): Smoker (Resolved 08/16/2024) The patient has been advised of the risks of continued smoking: stroke, TN, all forms of cancer, lung disease, and . Options for quitting smoking include: cold turkey, hypnosis, acupuncture, nicotine replacement meds (gum, lozenges, and patches), Buproprion, and Varenicline. At this time pt is encouraged to evaluate their goals for wanting to quit smoking, and reach out to provider when ready to start this process Associated Problem(s): Bilateral carotid artery stenosis Cont with vascular Associated Problem(s): Centrilobular emphysema (CMS/HCC) Continue with pulmonology Continue with inhaler Associated Problem(s): CVA (cerebral vascular accident) (CMS/HCC) No focal weakness Continues as directed by neurology Associated Problem(s): Insomnia Continue with trazodone documented in this encounter [facility] Instructions 08-16-2024 Patient Instructions Note Date & Type Note Facility 08-16-2024 Instructions Azul Quezada NP - 08/16/2024 1:20 PM EST Great job at quitting smoking Keep follow up with dr tim as directed Follow up with Vascular doctor in [place] as well as directed documented in this encounter [facility] History of Present illness Narrative [...] the original note were not included. Sam Carrasco is a 63 y.o. male presents with chief complaint of No chief complaint on file. HPI: Recent hospitalization at [facility] for 3 days d/t influenza. Does [...] artery stenosis Calcified lymph nodes Centrilobular emphysema ([facility]) COVID-19 07/2019 CVA (cerebral vascular accident) ([facility]) Degenerative cervical disc Depression with anxiety Insomnia Marijuana abuse 10/30/2023 Multiple pulmonary nodules Neck mass 2013 Osteoarthritis Papule of skin Pigmented skin lesion of uncertain nature Rheumatic fever Stroke ([facility]) 07/2020 Testicle lump [facility] ([facility]) Vertebral artery occlusion Vocal cord polyp Past Surgical History: Procedure Laterality Date ADENOIDECTOMY CAROTID STENT Right 09/2019 stent, RT carotid CT GUIDED TRANSVAGINAL TRANSRECTAL FLUID DRAIN 06/09/2020 CT GUIDED TRANSVAGINAL TRANSRECTAL FLUID DRAIN 06/09/2020 OTHER SURGICAL HISTORY Removal of Polyp Vocal area and Vocal Cord cyst MI EXCISION THYROGLOSSAL DUCT CYST/SINUS Procedure:DL, e/o thyroglossal [...] (CMS/HCC) documented in this encounter [facility] Evaluation note Note Date & Type Note Facility Evaluation note Diagnosis Influenza- Primary Influenza with other respiratory manifestations Marijuana abuse Nondependent cannabis abuse, unspecified Smoker Tobacco use disorder BMI 26.0-26.9,adult Centrilobular emphysema (CMS/HCC) Encounter for subsequent annual wellness visit (AWV) in Medicare patient- Primary Centrilobular emphysema (CMS/HCC) Bilateral carotid artery stenosis Occlusion and stenosis of carotid artery without mention of cerebral infarction Depression with anxiety Dysthymic disorder Mixed hyperlipidemia (CMS/HCC) Mixed hyperlipidemia Routine general medical examination at health care facility Routine general medical examination at a health care facility Depression with anxiety- Primary Dysthymic disorder Centrilobular emphysema (CMS/HCC) Overweight (BMI 25.0-29.9) Overweight Depression with anxiety- Primary Dysthymic disorder Centrilobular emphysema (CMS/HCC) Depression with anxiety- Primary Dysthymic disorder Screening for prostate cancer Special screening for malignant neoplasm of prostate Smoker Tobacco use disorder Mixed hyperlipidemia (CMS/HCC) Mixed hyperlipidemia Sessile colonic polyp Benign neoplasm of colon Centrilobular emphysema (CMS/HCC) Bilateral carotid artery stenosis Occlusion and stenosis of carotid artery without mention of cerebral infarction Right hand pain Pain in soft tissues of limb Depression with anxiety- Primary Dysthymic disorder Primary insomnia Persistent disorder of initiating or maintaining sleep Cerebrovascular accident (CVA), unspecified mechanism (CMS/HCC) Centrilobular emphysema (CMS/HCC) Bilateral carotid artery stenosis Occlusion and stenosis of carotid artery without mention of cerebral infarction Sessile colonic polyp Benign neoplasm of colon Smoker Tobacco use disorder Needs flu shot Need for prophylactic vaccination and inoculation against influenza Former smoker Personal history of tobacco use, presenting hazards to health Insomnia, unspecified documented in this encounter [facility] Summary [...] section and content) DATE CREATED AUTHOR 09/04/2019 [facility] DATE CREATED AUTHOR AUTHOR'S ORGANIZ ATION 09/30/2022 [facility] DATE CREATED AUTHOR AUTHOR'S ORGANIZ ATION 08/18/2024 [facility] EPIC Care Teams (unrecognized sec tion and content) Chef Assistant Relationship Specialty Start Date End Date Kiko Zurita MD PCP - General Family Medicine 04/07/23 Azul Quezada NP [address] [place] [phone] Referring Physician Nurse Practitioner 04/07/23 Chef Assistant Relationship Specialty Start Date End Date Kiko Zurita MD [address] [place] [phone] PCP - General Family Medicine 10/24/23 Azul Quezada NP [address] [place] [phone] Referring Physician Nurse Practitioner 04/07/23 Chef Assistant Relationship Specialty Start Date End Date Kiko Zurita MD [address] [place] [phone] PCP - General Family Medicine 10/24/23 Azul Queazda NP [address] [place] [phone] Referring Physician Nurse Practitioner 04/07/23 Chef Assistant Relationship Specialty Start Date End Date Kiko Zurita MD [address] [place] [phone] PCP - General Family Medicine 10/24/23 Azul Quezada NP [address] [place] [phone] Referring Physician Nurse Practitioner 04/07/23 Chef Assistant Relationship Specialty Start Date End Date Kiko Zurita MD [address] [place] [phone] PCP - General Family Medicine 10/24/23 Azul Quezada NP [address] [place] [address] Referring Physician Nurse Practitioner 04/07/23 FOR RECORDS [...] BE BASED ON THE PRIMARY CLINICAL RECORDS. [employer] [facility]. provides no warranty or guarantee of the accuracy or completeness of information in this document.
== END 2024-09-06 14:06 | disposition home or self-care (01) ==
LOC: CT 14:05
PROVIDERS: PCP Nurse Practitioner; Visit Provider Internal Medicine
DX: R91.8 Other nonspecific abnormal finding of lung field (principal); Z12.2 Encounter for screening for malignant neoplasm of respiratory organs; Z87.891 Personal history of nicotine dependence
CPT/HCPCS: 71271

== ENCOUNTER 2024-09-06 14:35 | Outpatient (OUT) | payer MEDICARE, SELFPAY ==
[2024-09-07 04:07] LABS: PSA, Free 0.26 ng/mL
== END 2024-09-06 14:36 | disposition home or self-care (01) ==
LOC: LAB 14:38
PROVIDERS: PCP Nurse Practitioner; Visit Provider Nurse Practitioner
DX: R97.20 Elevated prostate specific antigen [PSA] (principal)
CPT/HCPCS: 36415; 84153; 84154

== ENCOUNTER 2024-09-26 15:55 | Emergency (ER) | payer MEDICARE, SELFPAY ==
[2024-09-26 15:58] VITALS: BP 143/91; PULSE 96; TEMP 36.5; O2SAT 96; BMI 24.8
--- NOTE | 2024-09-26 16:24 | XR_ITS ---
The [address] [address] Patient Name: JUANITA KRAMER MRN: [id number] date: 1960 Sex: M Assigned Patient Location: ER Current Patient Location: ED.MAIN Accession/Order Number: [id number] Exam Date: 09/26/2024 16:38 Report Date: 09/26/2024 17:41 At the request of: ZUNILDA MERCEDES Procedure: XR chest 1V PORTABLE CHEST X-RAY. CLINICAL HISTORY: shortness of breath COMPARISON: 12/07/2023 TECHNIQUE: Single AP portable chest radiograph. FINDINGS: TUBES AND LINES: None. LUNGS: No focal opacity. PLEURA: No effusions or pneumothorax. HEART AND MEDIASTINUM: Within normal limits for portable technique. OSSEOUS STRUCTURES: No acute abnormality. XR/XR chest 1V IMPRESSION: No acute findings. Electronically authenticated by: CHRIS COUCH Date: 09/26/2024 17:41
--- NOTE | 2024-09-26 16:25 | ED_ITS ---
HPI - SOB/Dyspnea General Chief Complaint: Shortness of Breath/Dyspnea Stated Complaint: cough Time Seen by Provider: 09/26/24 16:00 Source: patient Mode of arrival: walk-in Limitations: no limitations History of Present Illness HPI Narrative: daily smoker with hx copd presents with productive cough, chest congestion and intermittent shortness of breath that has been waxing and waning for about a month but became constant about 1 week ago. no fever or chills. No GI or complaints. No Upper airway complaints. Related Data Home Medications ?Medication ?Instructions ?Recorded ?Confirmed albuterol sulfate 90 mcg/actuation 2 inh inhalation Q4H PRN shortness 09/21/23 06/15/24 aerosol inhaler of breath or wheezing aspirin 81 mg tablet,delayed 81 mg PO DAILY 09/21/23 06/15/24 release atorvastatin 40 mg tablet 40 mg PO DAILY 09/21/23 06/15/24 budesonide-formoterol HFA 160 2 inh inhalation Q12H 09/21/23 06/15/24 mcg-4.5 mcg/actuation aerosol inhaler (Symbicort) fluoxetine 10 mg capsule 20 mg PO DAILY 09/21/23 06/15/24 tiotropium bromide 2.5 2 puff inhalation Q24H 09/21/23 06/15/24 mcg/actuation mist for inhalation (Spiriva Respimat) trazodone 50 mg tablet 50 mg PO BEDTIME 09/21/23 06/15/24 Previous Rx's ?Medication ?Instructions ?Recorded ipratropium 0.5 mg-albuterol 3 mg 3 ml inhalation Q6H PRN shortness 12/01/23 (2.5 mg base)/3 mL nebulization of breath or wheezing #90 mL soln diphenhydramine HCl 25 mg capsule 25 mg PO TID PRN allergic reaction 05/30/24 (Benadryl) #10 caps epinephrine 0.3 mg/0.3 mL 0.3 mg (0.3 mL) IM ONCE PRN 05/30/24 injection, auto-injector (EpiPen) allergic reaction #2 ea famotidine 20 mg tablet (Pepcid) 20 mg PO BID #10 tabs 05/30/24 albuterol sulfate 2.5 mg/3 mL 2.5 mg (3 mL) inhalation Q6H PRN 09/26/24 (0.083 %) solution for nebulization shortness of breath or wheezing #75 mL doxycycline hyclate 100 mg capsule 100 mg PO BID 7 days #14 caps 09/26/24 ipratropium bromide 0.02 % 2.5 ml inhalation Q8H PRN 09/26/24 solution for inhalation shortness of breath or wheezing #62.5 mL prednisone 20 mg tablet 40 mg (2 x 20 mg) PO DAILY 4 days 09/26/24 #8 tabs Allergies Allergy/AdvReac Type Severity Reaction Status Date / Time No Known Drug Allergies Allergy Verified 09/26/24 16:04 [facility] Medical History (Updated 09/26/24 @ 16:28 by Baltazar Gil) History of common carotid artery stent placement ?Z98.890 - Other specified postprocedural states (ICD-10) ?Z95.828 - Presence of other vascular implants and grafts (ICD-10) 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 - Polyp of vocal cord and larynx (ICD-10) Vertebral artery occlusion ?I65.09 - Occlusion and stenosis of unspecified vertebral artery (ICD-10) Tourette's ?F95.2 - Tourette's disorder (ICD-10) Testicle lump ?N50.89 - Other specified disorders of the male genital organs (ICD-10) Rheumatic fever ?I00 - Rheumatic fever without heart involvement (ICD-10) Pigmented skin lesion of uncertain nature ?L81.9 - Disorder of pigmentation, unspecified (ICD-10) Papule of skin ?R23.8 - Other skin changes (ICD-10) Osteoarthritis ?M19.90 - Unspecified osteoarthritis, unspecified site (ICD-10) Neck mass ?R22.1 - Localized swelling, mass and lump, neck (ICD-10) Multiple pulmonary nodules ?R91.8 - Other nonspecific abnormal finding of lung field (ICD-10) Marijuana abuse ?F12.10 - Cannabis abuse, uncomplicated (ICD-10) Insomnia ?G47.00 - Insomnia, unspecified (ICD-10) Degenerative cervical disc ?M50.30 - Other cervical disc degeneration, unspecified cervical region (ICD- 10) CVA (cerebral vascular accident) ?I63.9 - Cerebral infarction, unspecified (ICD-10) COVID-19 ?U07.1 - COVID-19 (ICD-10) Centrilobular emphysema ?J43.2 - Centrilobular emphysema (ICD-10) Calcified lymph nodes ?I89.8 - Other specified noninfective disorders of lymphatic vessels and lymph nodes (ICD-10) Bilateral carotid artery stenosis ?I65.23 - Occlusion and stenosis of bilateral carotid arteries (ICD-10) Allergic rhinitis ?J30.9 - Allergic rhinitis, unspecified (ICD-10) Alcohol abuse ?F10.10 - Alcohol abuse, uncomplicated (ICD-10) Anxiety ?F41.9 - Anxiety disorder, unspecified (ICD-10) Cerebrovascular disease ?I67.9 - Cerebrovascular disease, unspecified (ICD-10) COPD (chronic obstructive pulmonary disease) ?J44.9 - Chronic obstructive pulmonary disease, unspecified (ICD-10) Depression, unspecified ?F32.A - Depression, unspecified (ICD-10) Dyslipidemia ?E78.5 - Hyperlipidemia, unspecified (ICD-10) 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 - Other diseases of vocal cords (ICD-10) Surgical History (Updated 06/08/24 @ 11:14 by Lidia Fontanez) History of vocal cord polypectomy ?Z98.890 - Other specified postprocedural states (ICD-10) H/O adenoidectomy ?Z90.89 - Acquired absence of other organs (ICD-10) History of tonsillectomy ?Z90.89 - Acquired absence of other organs (ICD-10) Family History (Updated 06/15/24 @ 06:35 by Cira Palacio RN) Mother Family history of CHF (congestive heart failure) Family history of COPD (chronic obstructive pulmonary disease) Hypertension Sister Family history of diabetes mellitus Father Family history of cancer Other Family history of myocardial infarction Social History Within the past year, how often did you have a drink containing alcohol: never Within the past year, how often did you have six or more drinks on one occasion: never Score interpretation: A score less than 4 is consistent with normal alcohol consumption. Smoking status: Current every day smoker Second hand tobacco smoke exposure: No Non-prescribed substance use: cannabis (any form) Known occupational exposures/hazards: No Highest level of school completed/degree received: high school graduate Are you now , , , , never or living with a partner: living with partner In a typical week, how many times do you talk on the telephone with family, friends, or neighbors: 3 or more times per week How often do you get together with friends or relatives: 3 or more times per week How often do you attend pentecostal or lutheran services: 1-3 times per year Do you belong to any clubs or organizations such as pentecostal groups unions, fraternal or athletic groups, or school groups: no Total score: 2 Score interpretation: A score of greater than or equal to 2 indicates the lowest level of social isolation. Little interest or pleasure in doing things: not at all Feeling down, depressed, or hopeless: not at all Feel stressed/tense/nervous/anxious/difficulty sleeping: not at all Due to disability, difficulty making decisions: No Do you think of yourself as: straight/heterosexual Gender Identity: male Exam Narrative Exam Narrative: Nurses notes and vital signs reviewed and patient is not hypoxic. afebrile General: Well-appearing and in no apparent distress. Skin: Warm, dry, no pallor noted. Head: Normocephalic, atraumatic. Eye: Pupils are equal, round and EOMI. No scleral icterus. Ears, Nose, Mouth, and Throat: Oral mucosa is moist Cardiovascular: Regular Rate and Rhythm without murmur, gallop or rub. Respiratory: No accessory muscle use or respiratory distress, but he has some tachypnea at rest. Lungs with end expiratory wheezes and central rhonchi Musculoskeletal: normal ROM, no calf or popliteal tenderness, no lower extremity edema/swelling GI: Abdomen is soft, non-distended. Normal bowel sounds. No tenderness to palpation. No rebound, guarding, or rigidity noted. Neurological: A&O x4. No cranial nerve dysfunction observed. No truncal ataxi a. Moves all extremities. Sensation intact. Psychiatric: Cooperative and interactive. Normal mood and affect. Constitutional Vital Signs, click to edit/add: Last Vital Signs Temp 97.7 F 09/26/24 15:58 Pulse 96 H 09/26/24 15:58 Resp 28 H 09/26/24 15:58 BP 143/91 H 09/26/24 15:58 Pulse Ox 96 09/26/24 15:58 O2 Del Method Room Air 09/26/24 15:58 Course Vital Signs Vital signs: Vital Signs Temperature 97.7 F 09/26/24 15:58 Pulse Rate 96 H 09/26/24 15:58 Respiratory Rate 28 H 09/26/24 15:58 Blood Pressure 143/91 H 09/26/24 15:58 Pulse Oximetry 96 09/26/24 15:58 Oxygen Delivery Method Room Air 09/26/24 15:58 Temperature 97.7 F 09/26/24 15:58 Pulse Rate 96 H 09/26/24 15:58 Respiratory Rate 28 H 09/26/24 15:58 Blood Pressure 143/91 H 09/26/24 15:58 Pulse Oximetry 96 09/26/24 15:58 Oxygen Delivery Method Room Air 09/26/24 15:58 MDM - SOB/Dyspnea MDM Narrative Medical decision making narrative: Patient given oral prednisone and nebulizer treatment with albuterol and Atroven t. Portable chest x-ray obtained. No focal infiltrate identified on CXR. Pt felt better after ED treatment. he was discharged home with prescriptions for doxycycline and a course of steroids. he will continue to use his albuterol via neb machine but needed a refill. I also prescribed atrovent neb solution for him. Imaging Data Chest x-ray: Attestation: I personally reviewed and interpreted this imaging study as follows: My impression: NAD Discharge Plan Discharge Chief Complaint: Shortness of Breath/Dyspnea Clinical Impression: Acute exacerbation of chronic obstructive pulmonary disease Patient Disposition: Home, Self-Care Time of Disposition Decision: 16:54 Prescriptions / Home Meds: New doxycycline hyclate 100 mg capsule 100 mg PO BID 7 Days Qty: 14 0RF prednisone 20 mg tablet 40 mg PO DAILY 4 Days Qty: 8 0RF albuterol sulfate 2.5 mg /3 mL (0.083 %) solution for nebulization 2.5 mg inhalation Q6H PRN (Reason: shortness of breath or wheezing) Qty: 75 0RF ipratropium bromide 0.02 % solution 2.5 ml inhalation Q8H PRN (Reason: shortness of breath or wheezing) Qty: 62.5 0RF No Action atorvastatin 40 mg tablet 40 mg PO DAILY trazodone 50 mg tablet 50 mg PO BEDTIME aspirin 81 mg tablet,delayed release (DR/EC) 81 mg PO DAILY fluoxetine 10 mg capsule 20 mg PO DAILY albuterol sulfate 90 mcg/actuation HFA aerosol inhaler 2 inh INHALATION Q4H PRN (Reason: shortness of breath or wheezing) budesonide-formoterol [Symbicort] 160-4.5 mcg/actuation HFA aerosol inhaler 2 inh INHALATION Q12H Spiriva Respimat 2.5 mcg/actuation mist 2 puff INHALATION Q24H ipratropium-albuterol 0.5 mg-3 mg(2.5 mg base)/3 mL solution for nebulization 3 ml inhalation Q6H PRN (Reason: shortness of breath or wheezing) Qty: 90 0RF famotidine [Pepcid] 20 mg tablet 20 mg PO BID Qty: 10 0RF diphenhydramine HCl [Benadryl] 25 mg capsule 25 mg PO TID PRN (Reason: allergic reaction) Qty: 10 0RF epinephrine [EpiPen] 0.3 mg/0.3 mL auto-injector 0.3 mg IM ONCE PRN (Reason: allergic reaction) Qty: 2 0RF Rx Instructions: for 2 doses Print Language: Turkish Instructions: COPD (Chronic Obstructive Pulmonary Disease) (ED) Referrals: Azul Quezada NP [Primary Care Provider] - 1 week
[2024-09-26] MEDS: IPRATROPIUM/ALBUTEROL SULFATE 3 ML AMPUL.NEB IH (16:46)
[2024-09-26 16:48] VITALS: PULSE 86; O2SAT 95
[2024-09-26] MEDS: PREDNISONE 20 MG TABLET 40 MG PO (17:04)
[2024-09-26 17:06] VITALS: O2SAT 95
== END 2024-09-26 17:07 | disposition home or self-care (01) ==
PROVIDERS: Emergency Provider Emergency Medicine; PCP Nurse Practitioner
DX: J44.1 Chronic obstructive pulmonary disease with (acute) exacerbation (principal); F17.200 Nicotine dependence, unspecified, uncomplicated; R06.02 Shortness of breath
CPT/HCPCS: 71045; 94640; 99284; J7512

== ENCOUNTER 2024-10-22 12:50 | Outpatient (OUT) | payer MEDICARE, SELFPAY ==
[2024-10-22 12:59] LABS: Hemoglobin 14.8 g/dL (14.0-18.0)
== END 2024-10-22 12:51 | disposition home or self-care (01) ==
LOC: CARD 12:50
PROVIDERS: PCP Nurse Practitioner; Visit Provider Internal Medicine
DX: J43.2 Centrilobular emphysema (principal)
CPT/HCPCS: 36415; 85018

== ENCOUNTER 2024-11-16 15:54 | Outpatient (OUT) | payer MEDICARE, SELFPAY ==
--- NOTE | 2024-11-16 16:05 | XR_ITS ---
[address] [address] Patient Name: JUANITA KRAMER MRN: [id number] date: 1960 Sex: M Assigned Patient Location: [facility] Current Patient Location: [facility] Accession/Order Number: [id number] Exam Date: 11/16/2024 19:23 Report Date: 11/16/2024 19:24 At the request of: JAYDEN JC NP Procedure: XR chest 2V XR chest 2V 11/16/2024 4:18 PM SIGNS AND SYMPTOMS: ^COPD with acute exacerbation J44.1 , cough, shortness of breath PROTOCOL: Frontal and lateral radiographs of the chest COMPARISON: 09/26/2024 FINDINGS: The trachea is midline. The heart and mediastinal structures are within normal limits. The lung parenchyma is clear. The bony thorax is intact. XR/XR chest 2V IMPRESSION: No acute cardiopulmonary pathology. Impression dictated by: Carlos Knight M.D.11/16/2024 7:24 PM Dictation Location: [place] [address] Electronically authenticated by: [id number] Y Date: 11/16/2024 19:24
--- OUTSIDE RECORDS SUMMARY | 2024-11-16 16:09 | XMS_ITS | CCD ---
Author Organization [facility] Care Team Providers Care Cash Management Clerk Name Role Phone SAMSA, JAMESON Admitting Unavailable SAMSA, JAMESON Attending Unavailable AICHHOLZ, DIET COUNSELOR AZUL Referring Unavailable AICHHOLZ, DIET COUNSELOR AZUL Primary Care Unavailable SAMSA, JAMESON Consulting Unavailable AICHHOLZ, DIET COUNSELOR AZUL Admitting Unavailable AICHHOLZ, DIET COUNSELOR AZUL Attending Unavailable AICHHOLZ, DIET COUNSELOR AZUL Primary Care Unavailable AICHHOLZ, DIET COUNSELOR AZUL Consulting Unavailable SAMSA, JAMESON Admitting Unavailable SAMSA, JAMESON Attending Unavailable AICHHOLZ, DIET COUNSELOR AZUL Primary Care Unavailable WHITNEY, DR YARIEL Figueroa Consulting Unavailable SAMSA, JAMESON Consulting Unavailable AICHHOLZ, DIET COUNSELOR AZUL Primary Care Unavailable DAREN, DR MAURO Admitting Unavailable DAREN, DR MAURO Attending Unavailable WHITNEY, DR YARIEL Figueroa Consulting Unavailable DAREN, DR MAURO Consulting Unavailable Kiko Zurita MD Primary Care Provider Aichholz VIDEO CAMERA OPERATOR, Azul Unavailable Kiko Zurita MD Primary Care Provider Aichholz VIDEO CAMERA OPERATOR, Azul Unavailable AICHHOLZ, AZUL Attending Unavailable AICHHOLZ, AZUL Attending Unavailable AICHHOLZ, AZUL Attending Unavailable AICHHOLZ, AZUL Attending Unavailable AICHHOLZ, AZUL Attending Unavailable IBETH ARGUETA Attending Unavailable AICHHOLZ, AZUL Attending Unavailable Aichholz CHRISTINA-Azul DEGROOT Primary Care Provider Allergies Allergy Classification Reported Allergen(s) Allergy Type Date of Onset Reaction(s) Facility (16 sources) Honey bee venom Allergy to substance 0 Unknown [facility] (1 source) Bee Venom Protein (Honey Bee) Propensity to adverse reactions to drug 0 [facility] Medications Current Medications Medication Drug Class(es) Dates Sig (Normalized) Sig (Original) albuterol 0.83 mg/ml inhalation solution (20 sources) beta2-Adrenergic Agonist albuterol (2.5 MG/3M L) 0.083% nebulizer solution Take 2.5 mg by nebulization 4 (four) times a day as needed for wheezing Active take 2 puff(s) by in halation every four hours for wheezing albuterol HFA 90 mcg/act inhaler Inhale 2 puffs every 4 (four) hours if needed for wheezing Active albuterol (ACCUN EB) 0.63 mg/3 mL nebulizer solution Inhale 1 ampule by nebulization every 6 (six) hours as needed for wheezing. Active take 2 puff(s) by in halation every six hours as needed for wheezing albuterol (PROVENTIL HFA;VENTOLIN HFA) 9 0 mcg/actuation inhaler Inhale 2 puffs every 6 (six) hours as needed for wheezing. Active albuterol 0.833 mg/ml / ipratropium bromide 0.167 mg/ml inhalation solution (14 sources) Anticholinergic, beta2-Adrenergic Agonist Start: 12-01-2023 ipratropium-albuterol (Duo-Neb) 0.5-2.5 mg/3 mL nebulizer solution Take 3 mL by nebulization in the morning and 3 mL at noon and 3 mL in the evening and 3 mL before bedtime. 12/01/2023 Active aspirin 81 mg chewable tablet (17 sources) Platelet Aggregation Inhibitor, Nonsteroidal Anti-inflammatory Drug Start: 06-14-2020 aspirin 81 mg chewable tablet Chew 1 tablet (81 mg total) and swallow daily. 30 tablet 5 06/14/2020 Active take 1 tablet by mouth in the mo rning aspirin 81 MG EC tablet Take 81 mg by mouth in the morning. Active atorvastatin 40 mg oral tablet (18 sources) HMG-CoA Reductase Inhibitor Start: 03-15-2024 End: 08-31-2024 take 1 tablet by mouth once daily atorvastatin (Lipitor) 40 MG tablet Indications: Mixed hyperlipidemia (CMS/HCC) Take 1 tablet (40 mg) by mouth Daily 90 tablet 1 06/02/2024 Active Start: 06-13-2020 take 1 tablet by naveen th once daily atorvastatin (LIPITOR) 40 mg tablet Take 1 tablet (40 mg total) by mouth nightly. 30 tablet 2 06/13/2020 Active bisacodyl 5 mg delayed release oral tablet (3 sources) Stimulant Laxative Start: 05-31-2024 End: 05-31-2024 take 1 tablet by mouth once bisacodyl (Dulcolax) 5 MG EC tablet Indications: Screening for malignant neoplasm of colon Take 1 tablet (5 mg) by mouth 1 time for 1 dose Do not crush, chew, or split. Take as detailed on clinic hand out for colonoscopy prep 1 tablet 05/31/2024 05/31/2024 Active 60 actuat budesonide 0.16 mg/actuat / formoterol fumarate 0.0045 mg/actuat metered dose inhaler (16 sources) Corticosteroid, beta2-Adrenergic Agonist take 2 puff(s) by inhalation in the morning budesonide-formot mary (Symbicort) 160-4.5 MCG/ACT inhaler Inhale 2 puffs in the morning and 2 puffs before bedtime. Rinse mouth with water after use to reduce aftertaste and incidence of candidiasis. Do not swallow.. Active [id number] 0.3 ml EPINEPHrine 1 mg/ml auto-injector (11 sources) alpha-Adrenergic Agonist, beta-Adrenergic Agonist, Catecholamine Start: 05-30-2024 EPINEPHrine (Epipen) 0.3 MG/0.3ML injection syringe Inject 1 Syringe as directed 1 (one) time 05/30/2024 Active famotidine 20 mg oral tablet (3 sources) Histamine-2 Receptor Antagonist Start: 05-30-2024 End: 08-16-2024 take 1 tablet by mouth in the morning famotidine (Pepcid) 20 MG tablet Take 20 mg by mouth in the morning and 20 mg before bedtime. 05/30/2024 08/16/2024 Discontinued (Therapy completed) FLUoxetine 20 mg oral capsule (20 sources) Serotonin Reuptake Inhibitor Start: 02-02-2024 End: 11-14-2024 take 1 capsule by mouth once daily FLUoxetine (PROzac) 20 MG capsule Indications: Depression with anxiety Take 1 capsule (20 mg) by mouth Daily 90 capsule 1 08/16/2024 11/14/2024 Active take 1 capsule by mouth once kathie ly FLUoxetine (PROzac) 10 mg capsule Take 10 mg by mouth daily. Active hydrOXYzine hydrochloride 25 mg oral tablet (11 sources) Antihistamine Start: 12-15-2023 End: 08-16-2024 take 1-2 tablets by mouth every eight hours for anxiety hydrOXYzine HCl (Atarax) 25 MG tablet Indications: Depression with anxiety Take 1-2 tablets (25-50 mg) by mouth every 8 (eight) hours if needed for anxiety for up to 10 days 60 tablet 12/15/2023 08/16/2024 Discontinued (Therapy completed) polyethylene glycol 3350 [id number] mg powder for oral solution (3 sources) Osmotic Laxative Start: 05-31-2024 End: 05-31-2024 take 17 g by mouth once polyethylene glycol, PEG, 3350 (Glycolax) 17 GM/SCOOP powder Indications: Colonoscopy Take 238 g by mouth 1 (one) time for 1 dose Take as detailed from clinic hand out for colonoscopy prep 238 g 05/31/2024 05/31/2024 Active predniSONE 20 mg oral tablet (9 sources) Start: 05-30-2024 End: 08-16-2024 take 1 tablet by mouth in the morning predniSONE (Deltasone) 20 MG tablet Take 20 mg by mouth in the morning and 20 mg before bedtime. 05/30/2024 08/16/2024 Discontinued (Therapy completed) 10 actuat tiotropium 0.0025 mg/actuat inhalation spray (17 sources) Anticholinergic take 2 puff(s) by inhalation in the morning tiotropium (Spiriva Respimat) 2.5 MCG/ACT inhaler Inhale 2 puffs in the morning. Active take 1 capsule by inhalation onc e daily tiotropium (SPIRIVA) 18 mcg per inhalation capsule Place 1 capsule into inhaler and inhale once daily. Active traZODone hydrochloride 50 mg oral tablet (20 sources) Serotonin Reuptake Inhibitor Start: 12-16-2023 End: 11-14-2024 take 1 tablet by mouth at bedtime traZODone (Desyrel) 50 MG tablet Indications: Insomnia, unspecified Take 1 tablet (50 mg) by mouth at bedtime 90 tablet 1 08/16/2024 11/14/2024 Active traZODone (DESYR EL) 75 mg tablet Take 50 mg by mouth nightly. Active take 1 tablet by mouth at bedtim e traZODone (Desyrel) 50 MG tablet Take 50 mg by mouth at bedtime 0 Active triamcinolone acetonide 0.055 mg/actuat metered dose nasal spray (16 sources) Corticosteroid take 2 spray(s) nasal route in the morning triamcinolone (Nasacort) 55 MCG/ACT nasal inhaler Administer 2 sprays into each nostril in the morning. Active Problems Active Problems Problem Classification Problem Date Documented Date Episodic/Chronic Acute cerebrovascular disease (20 sources) Cerebrovascular accident; 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: [Cerebral infarction, unspecified] Onset: 06-10-2020 10-30-2023 Chronic Anxiety disorders (20 sources) Other specified anxiety disorders; 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: [Mixed anxiety and depressive disorder] Onset: 03-07-2022 10-30-2023 Chronic Chronic obstructive pulmonary disease and bronchiectasis (20 sources) Emphysema, unspecified; 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: [Centrilobular emphysema] Onset: 04-16-2022 Chronic Disorders of lipid metabolism (20 sources) Mixed hyperlipidemia; 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: [Mixed hyperlipidemia] Onset: 07-20-2020 10-30-2023 Chronic Disorders usually diagnosed in infancy, childhood, or adolescence (16 sources) Wilian de la Tourette's syndrome; 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: [Tourette's disorder] Onset: 10-30-2023 10-30-2023 Chronic Immunizations and screening for infectious disease (6 sources) Needs influenza immunization; 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: [Encounter for immunization] Onset: 08-16-2024 08-16-2024 Episodic Miscellaneous mental health disorders (2 sources) Primary insomnia; 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: [Primary insomnia] 08-16-2024 Chronic Occlusion or stenosis of precerebral arteries (20 sources) Occlusion and stenosis of bilateral carotid arteries; 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: [Internal carotid artery stenosis] Onset: 06-10-2020 Chronic Osteoarthritis (16 sources) Osteoarthritis; 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: [Unspecified osteoarthritis, unspecified site] Onset: 10-30-2023 10-30-2023 Chronic Other diseases of veins and lymphatics (16 sources) Calcified lymph nodes; 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: [Other specified noninfective disorders of lymphatic vessels and lymph nodes] Onset: 10-30-2023 10-30-2023 Chronic Other lower respiratory disease (4 sources) Shortness of breath; 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: [SHORTNESS OF BREATH] Onset: 09-25-2022 Episodic Other upper respiratory disease (16 sources) Allergic rhinitis; 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: [Allergic rhinitis, unspecified] Onset: 10-30-2023 10-30-2023 Chronic Screening and history of mental health and substance abuse codes (7 sources) Personal history of nicotine dependence; 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: [Ex-smoker] Onset: 09-27-2022 08-16-2024 Episodic Spondylosis; intervertebral disc disorders; other back problems (16 sources) Degeneration of cervical intervertebral disc; 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: [Other cervical disc degeneration, unspecified cervical region] Onset: 10-30-2023 10-30-2023 Chronic Substance-related disorders (20 sources) Cannabis abuse; 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: [Cannabis abuse, uncomplicated] Onset: 07-20-2020 Resolved: 08-16-2024 10-30-2023 Chronic Unclassified (1 source) CONTACT W/AND (SUSP) EXPOS COVID-19; 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: [CONTACT W/AND (SUSP) EXPOS COVID-19] Onset: 09-27-2022 Unclassified (1 source) EOSINOPHILIA UNSPECIFIED; 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: [EOSINOPHILIA UNSPECIFIED] Onset: 04-20-2022 Past or Other Problems Problem Classification Problem Date Documented Da te Episodic/Chronic Influenza (18 sources) Influenza; 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: [Influenza due to unidentified influenza virus with other respiratory manifestations] Onset: 10-30-2023 Resolved: 05-19-2024 10-30-2023 Episodic Mood disorders (1 source) Mood disorders Onset: 02-07-2022 02-07-2022 Other and unspecified benign neoplasm (20 sources) Polyp of colon; 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: [Polyp of colon] Onset: 05-19-2024 Resolved: 05-19-2024 05-19-2024 Episodic Other connective tissue disease (15 sources) Pain in right hand; 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: [Pain in right hand] Onset: 05-19-2024 05-19-2024 Episodic Other lower respiratory disease (16 sources) Multiple nodules of lung; 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: [Other nonspecific abnormal finding of lung field] Onset: 10-30-2023 10-30-2023 Episodic Other nutritional; endocrine; and metabolic disorders (18 sources) Overweight in adulthood with body mass index of 25 or more but less than 30; 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: [Body mass index (BMI) 26.0-26.9, adult] Onset: 10-30-2023 10-30-2023 Episodic Other nutritional; endocrine; and metabolic disorders (14 sources) Body mass index 25-29 - overweight; 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: [Overweight] Onset: 12-15-2023 12-15-2023 Episodic Other screening for suspected conditions (not mental disorders or infectious disease) (20 sources) Encounter for screening for malignant neoplasm of respiratory organs; 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: [Encounter for screening for malignant neoplasm of prostate] Onset: 03-07-2022 Episodic Other skin disorders (14 sources) Papule of skin; 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: [Other skin changes] Onset: 11-13-2023 Resolved: 11-13-2023 11-13-2023 Episodic Other upper respiratory disease (20 sources) Polyp of vocal cord ; 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] Onset: 10-30-2023 10-30-2023 Episodic Residual codes; unclassified (19 sources) Insomnia; 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: [Insomnia, unspecified] Onset: 10-30-2023 10-30-2023 Episodic Viral infection (16 sources) Disease caused by 2019-nCoV; 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: [COVID-19] Onset: 07-23-2019 10-30-2023 Episodic Results Test Name Value Interpretation Reference Range Facility ALL HEMOGLOBINon 10-22-2024 Hemoglobin (Bld) [Mass/Vol] 14.8 g/dL 14.0 - 18.0 g/dL [facility] e PSA TOTAL+% FREEon 4 % FREE PSA 26.0 % . [facility] Comment on above: The table below list s the probability of prostate cancer for men with non-suspicious JUNI results and total PSA between 4 and 10 ng/mL, by patient age (Andie et al, TORSTEN 1998, [id number]). % Free PSA 50-64 yr 65-75 yr 0.00-10.00% 56% 55% 10.01-15.00% 24% 35% 15.01-20.00% 17% 23% 20.01-25.00% 10% 20% >25.00% 5% 9% Please note: Andie et al did not make specific recommendations regarding the use of percent free PSA for any other population of men. Performed at: [address] [id number] Certified Respiratory Therapist: Mich Orozco PhD, Phone: [phone] Prostate specific Ag [Mass/Vol] 1.0 ng/mL 0.0 - 4.0 ng/mL [facility] Comment on above: [place] ECLIA methodol ogy. According to the [place] [employer], Serum PSA should decrease and remain at undetectable levels after radical prostatectomy. The AUA defines biochemical recurrence as an initial PSA value 0.2 ng/mL or greater followed by a subsequent confirmatory PSA value 0.2 ng/mL or greater. Values obtained with different assay methods or kits cannot be used interchangeably. Results cannot be interpreted as absolute evidence of the presence or absence of malignant disease. PSA, FREE 0.26 ng/mL N/A [facility] Comment on above: [employer] ECLIA methodol ogy. [facility] Located within [facility] e ALL CBC WITH AUTO DIFFon BASOPHILS ABSOLUTE AUTO 0.1 [facility] Basophils/100 WBC (Bld) 0.9 % 0.2 - 2.0 % [facility] Eosinophils/100 WBC (Bld) 0.1 % Low 0.9 - 7.0 % [facility] Erythrocyte distribution width (RBC) [Ratio] 12.8 % 11.0 - 15.0 % [facility] Hematocrit (Bld) [Volume fraction] 43.1 % 42.0 - 54.0 % Located [facility] e Hemoglobin (Bld) [Mass/Vol] 13.9 g/dL Low 14.0 - 18.0 g/dL [facility] IMMATURE GRANULOCYTES ABS AUTO 0.03 [facility] Immature granulocytes/100 WBC (Bld) 0.3 % 0.0 - 0.5 % [facility] Interpretation and review of laboratory results Abnormal [facility] LYMPHOCYTES ABSOLUTE AUTO 1.2 [facility] Lymphocytes/100 WBC (Bld) 14 % Low 20.5 - 60.0 % [facility] MCH (RBC) [Entitic mass] 30.3 pg 25.9 - 34.0 pg [facility] MCHC (RBC) [Mass/Vol] 32.3 g/dL 29.9 - 35.2 g/dL [facility] MCV (RBC) [Entitic vol] 94.1 fL High 80.0 - 94.0 fL [facility] MONOCYTES ABSOLUTE AUTO 0.9 High [facility] Monocytes/100 WBC (Bld) 9.7 % 1.7 - 12.0 % [facility] NEUTROPHILS ABSOLUTE AUTO 6.5 [facility] Neutrophils/100 WBC (Bld) 75 % 43.0 - 75.0 % [facility] Platelet mean volume (Bld) [Entitic vol] 10.1 fL 9.5 - 13.5 fL [facility] are [facility] EO # 0 [facility] TB[facility] PLT 326 [facility] TB RBC 4.58 Low [facility] WBC 8.7 [facility] UA (CLEAN/CATCH) [facility] OPIC IF INDICATEon 05-31-2024 BILIRUBIN URINE Negative NEGATIVE [facility] BLOOD URINE Negative NEGATIVE [facility] re Clarity (U) CLEAR CLEAR [facility] Color (U) LT. YELLOW YELLOW [facility] GLUCOSE URINE UA Negative NEGATIVE mg/dL [facility] Interpretation and review of laboratory results Abnormal [facility] Ketones Ql (U) Negative NEGATIVE mg/dL [facility]althcare Leukocyte esterase Test strip Ql (U) SMALL Abnormal NEGATIVE [facility] NITRITE URINE Negative NEGATIVE [facility] care pH (U) 6.0 [pH] 5.0 - 9.0 [facility] PROTEIN URINE Negative NEG/TRACE mg/dL [facility] SPECIFIC GRAVITY URINE 1.015 1.005 - 1.025 [facility] URINE MICROSCOPIC INDICATED YES [facility] UROBILINOGEN URINE 0.2 EU/dL 0.2 - 1.0 EU/dL [facility] BNPon 09-25-2022 Natriuretic peptide B (Bld) [Mass/Vol] 42.0 pg/mL Normal <=900.0 [facility] Comment on above: Performed By: #### I NFLUAB #### [facility] [address], [place] [address] Dr. Tom Dotson CBC AUTO DIFFon 09-25-2022 BASO # 0.1 103/ul Normal 0.0-0.1 [facility] Comment on above: Performed By: #### C BC #### [facility] [address], [place] [address] Dr. Tom Dotson Basophils/100 WBC (Bld) 0.8 % Normal 0.2-2.0 [facility] Comment on above: Performed By: #### C BC #### [facility] [address] [place] [address] Dr. Tom Dotson EO # 0.0 103/ul Normal 0.0-0.7 [facility] Comment on above: Performed By: #### C BC #### [facility] [address] [place] [address] Dr. Tom Dotson Eosinophils/100 WBC (Bld) 0.0 % Critically low 0.9-7.0 [facility] Comment on above: Performed By: #### C BC #### [facility] [address] [place] [address] Dr. Tom Dotson Erythrocyte distribution width (RBC) [Ratio] 12.4 % Normal 11.0-15.0 [facility] Comment on above: Performed By: #### C BC #### [facility] [address] [place] [address] Dr. Tom Dotson Hematocrit (Bld) [Volume fraction] 43.6 % Normal 42.0-54.0 [facility] Comment on above: Performed By: #### C BC #### [facility] [address] [place] [address] Dr. Tom Dotson Hemoglobin (Bld) [Mass/Vol] 14.3 g/dL Normal 14.0-18.0 [facility] Comment on above: Performed By: #### C BC #### [facility] [address] [place] [address] Dr. Tom Dotson IG # 0.02 10e3/ul Normal 0.00-0.03 [facility] Comment on above: Performed By: #### C BC #### [facility] [address] [place] [address] Dr. Tom Dotson IG % 0.3 % Normal 0.0-0.5 [facility] Comment on above: Performed By: #### C BC #### [facility] [address] [place] [address] Dr. Tom Dotson LYMPH # 1.4 103/ul Normal 1.2-3.8 [facility] Comment on above: Performed By: #### C BC #### [facility] [address] [place] [address] Dr. Tom Dotson Lymphocytes/100 WBC (Bld) 17.3 % Critically low 20.5-60.0 [facility] Comment on above: Performed By: #### C BC #### [facility] [address] [place] [address] Dr. Tom Dotson MANUAL DIFF REQ NO Normal [facility] Comment on above: Performed By: #### C BC #### [facility] [address] [place] [address] Dr. Tom Dotson MCH (RBC) [Entitic mass] 29.8 pg Normal 25.9-34.0 [facility] Comment on above: Performed By: #### C BC #### [facility] [address] [place] [address] Dr. Tom Dotson MCHC (RBC) [Mass/Vol] 32.8 g/dL Normal 29.9-35.2 [facility] Comment on above: Performed By: #### C BC #### [facility] [address] [place] [address] Dr. Tom Dotson MCV (RBC) [Entitic vol] 90.8 fL Normal 80.0-94.0 [facility] Comment on above: Performed By: #### C BC #### [facility] [address] [place] [address] Dr. Tom Dotson MONO # 0.7 103/ul Normal 0.3-0.8 [facility] Comment on above: Performed By: #### C BC #### [facility] [address] [place] [address] Dr. Tom Dotson Monocytes/100 WBC (Bld) 9.4 % Normal 1.7-12.0 [facility] Comment on above: Performed By: #### C BC #### [facility] [address] [place] [address] Dr. Tom Dotson NEUT # 5.7 103/ul Normal 1.4-6.5 [facility] Comment on above: Performed By: #### C BC #### [facility] [address] [place] [address] Dr. Tom Dotson Neutrophils/100 WBC (Bld) 72.2 % Normal 43.0-75.0 [facility] Comment on above: Performed By: #### C BC #### [facility] [address] [place] [address] Dr. Tom Dotson Platelet mean volume (Bld) [Entitic vol] 9.6 fL Normal 9.5-13.5 [facility] Comment on above: Performed By: #### C BC #### [facility] [address] [place] [address] Dr. Tom Dotson PLT 331 103/ul Normal 150-450 [facility] Comment on above: Performed By: #### C BC #### [facility] [address] [place] [address] Dr. Tom Dotson RBC 4.80 106/ul Normal 4.70-6.10 [facility] Comment on above: Performed By: #### C BC #### [facility] [address] [place] [address] Dr. Tom Dotson WBC 7.8 103/ul Normal 4.0-11.0 [facility] Comment on above: Performed By: #### C BC #### [facility] [address] [place] [address] Dr. Tom Dotson CULTURE BLOODon 09-25-2022 Microscopic examination of blood, culture Culture Observations: NO GROWTH AT 5 DAYS. Normal [facility] Comment on above: Performed By: #### I NFLUAB #### [facility] [address] [place] [address] Dr. Tom Dotson Microscopic examination of blood, culture Culture Observations: NO GROWTH AT 5 DAYS. Normal [facility] Comment on above: Performed By: #### I NFLUAB #### [facility] [address] [place] [address] Dr. Tom Dotson [facility]19 [facility]on SARS-CoV-2 (COVID-19) RNA OLGA+probe Ql (Unsp spec) Not detected Normal NOT DETECTED [facility] Comment on above: Result Comment: [...] for this test is supported by the Acute Care Certified Nursing Assistant of Health and Human Service's declaration that [...] used). Performed By: #### C VDTB #### [facility] [address] [place] [address] Dr. Tom Dotson INFLUENZA A AND B [facility] 09-25 [facility] SEE BELOW Normal [facility] Comment on above: Result Comment: Nega tive for Flu A protein angiten. Infection due to Flu A cannot be ruled out. Flu A angiten in the sample may be below the detection limit of the test. Performed By: #### I NFLUAB #### [facility] [address] [place] [address] Dr. [facility] Normal [facility] Comment on above: Result Comment: Nega tive for Flu B protein antigen. Infection due to Flu B cannot be ruled out. Flu B antigen in the sample may be below the detection limit of the test. Performed By: #### I NFLUAB #### [facility] [address] [place] [address] Dr. Tom Dotson INFLUENZA A AG Negative Normal NEGATIVE SEE COMMENT [facility] Comment on above: Performed By: #### I NFLUAB #### [facility] [address] [place] [address] Dr. Tom Dotson INFLUENZA B AG Negative Normal NEGATIVE SEE COMMENT [facility] Comment on above: Performed By: #### I NFLUAB #### [facility] [address] [place] [address] Dr. Tom Dotson LACTATE/LACTIC ACIDon 2022 Lactate [Moles/Vol] 0.7 mmol/L Normal 0.4-1.9 [facility] Comment on above: Performed By: #### L ACT #### [facility] [address] [place] [address] Dr. Tom Dotson PROF CHEM 8 (BAS METB)on Anion gap [Moles/Vol] 9.3 mmol/L Normal [facility] Comment on above: Performed By: #### H STROPN, BMP, BNP #### [facility] [address] [place] [address] Dr. Tom Dotson Calcium [Mass/Vol] 8.8 mg/dL Normal 8.5-10.1 [facility] Comment on above: Performed By: #### H STROPN, BMP, BNP #### [facility] [address] [place] [address] Dr. Tom Dotson Chloride [Moles/Vol] 103 mmol/L Normal 98-107 [facility] Comment on above: Performed By: #### H STROPN, BMP, BNP #### [facility] [address] [place] [address] Dr. Tom Dotson CO2 [Moles/Vol] 31.1 mmol/L Normal 21.0-32.0 [facility] Comment on above: Performed By: #### H STROPN, BMP, BNP #### [facility] [address] [place] [address] Dr. Tom Dotson Creatinine [Mass/Vol] 0.77 mg/dL Normal 0.70-1.30 [facility] Comment on above: Performed By: #### H STROPN, BMP, BNP #### [facility] [address] [place] [address] Dr. Tom oDtson EGFR-AF GIBRALTARIAN >60 Normal >=60 [facility] Comment on above: Performed By: #### H STROPN, BMP, BNP #### [facility] [address] [address] [address] Tom Dotson EGFR-NON AF GIBRALTARIAN >60 Normal >=60 [facility] Comment on above: Performed By: #### H STROPN, BMP, BNP #### [facility] [address] [address] [address] Tom Dotson Glucose [Mass/Vol] 98 mg/dL Normal 74-106 [facility] Comment on above: Performed By: #### H STROPN, BMP, BNP #### [facility] [address] [address] [address] Tom Dotson Potassium [Moles/Vol] 4.4 mmol/L Normal 3.5-5.1 [facility] Comment on above: Performed By: #### H STROPN, BMP, BNP #### [facility] [address] [place] [address] Dr. Tom Dotson Sodium [Moles/Vol] 139 mmol/L Normal 136-145 [facility] Comment on above: Performed By: #### H STROPN, BMP, BNP #### [facility] [address] [address] [address] Tom Dotson Urea nitrogen [Mass/Vol] 13.0 mg/dL Normal 7.0-18.0 [facility] Comment on above: Performed By: #### H STROPN, BMP, BNP #### [facility] [address] [address] [address] Tom Dotson Urea nitrogen/Creatinine [Mass ratio] 16.9 mg/mg Normal [facility] Comment on above: Performed By: #### H STROPN, BMP, BNP #### [facility] [address] [address] [address] Tom Dotson TROPONIN, HIGH SENSITIVITYon 09-25-2022 HSTROP 7.4 pg/mL Normal 4.0-76.1 [facility] Comment on above: Result Comment: CUT- OFF POINTS HAVE BEEN ESTABLISHED BASED ON THE FOURTH UNIVERSAL DEFINITIONS OF MYOCARDIAL INFARCTION. THE UPPER REFERENCE LIMIT (URL) OF TROPONIN, DEFINED THE 99TH PERCENTILE OF cTnI DISTRIBUTION IN A REFERENCE POPULATION, HAS BEEN CONFIRMED THE DECISION THRESHOLD FOR [place] DIAGNOSIS. Performed By: #### I NFLUAB #### [facility] [address] [address] [address] Tom Dotson XR CHEST 1 Von [...] YARIEL OLSON Date: 2022-09-25 10:55 Normal [facility] ASPERGILLUS AB, QUANTITATIVE DIDon 04-20-2022 Aspergillus flavus Negative Normal Neg:<1:1 [facility] Comment on above: Performed By: #### A SPDID #### [facility] [address] [place] [address] Dr. Tom Dotson Aspergillus fumigatus Negative Normal Neg:<1:1 [facility] Comment on above: Performed By: #### A SPDID #### [facility] [address] [place] [address] Dr. Tom Dotson Aspergillus niger Negative Normal Neg:<1:1 [facility] Comment on above: Performed By: #### A SPDID #### [facility] [address] [place] [address] Dr. Tom Dotson ANTI NEUTROPHIL CYTOPLASMIC AB (ANCA) PRon 04-19-2022 Anti-MPO Antibodies <0.2 Normal 0.0-0.9 [facility] Comment on above: Result Comment: Perf ormed at: BN Performed By: #### C BC #### [facility] [address] [place] [address] Dr. Tom Dotson Anti-PR3 Antibodies <0.2 Normal 0.0-0.9 [facility] Comment on above: Result Comment: Perf ormed at: BN Performed By: #### C BC #### [facility] [address] [address] [address] Tom Dotson Atypical pANCA <1:20 Normal Neg:<1:20 [facility] Comment on above: Result Comment: The atypical pANCA pattern has been observed in a significant percentage of patients with ulcerative colitis, primary sclerosing cholangitis and autoimmune hepatitis. Performed at: CB Performed By: #### C BC #### [facility] [address] [address] [address] Tom Dotson Cytoplasmic (C-ANCA) <1:20 Normal Neg:<1:20 [facility] Comment on above: Result Comment: Perf ormed at: CB Performed By: #### C BC #### [facility] [address] [place] [address] Dr. Tom Dotson Perinuclear (P-ANCA) <1:20 Normal Neg:<1:20 [facility] Comment on above: Result Comment: The presence of positive fluorescence exhibiting P-ANCA or C-ANCA patterns alone is not specific for the diagnosis of Nevin's Granulomatosis (WG) or microscopic polyangiitis. Decisions about treatment should not be based solely on ANCA IFA results. The [employer] Consensus recommends follow up testing of positive sera with both RI-3 and MPO-ANCA enzyme immunoassays. As many as 5% serum samples are positive only by EIA. Ref. AM J Clin Pathol 1999;111:507-513. Performed at: CB Performed By: #### C BC #### [facility] [address] [place] [address] Dr. Tom Dotson IMMUNOGLOBULIN E, TOTALon Immunoglobulin E, Total 68 IU/mL Normal 6-495 [facility] Comment on above: Performed By: #### I GETOT #### [facility] [address] [place] [address] Dr. Tom Dotson ANGIOTENSION-CONVERTING ENZY ME (ELINOR)on 04-17-2022 ELINOR 28 U/L Normal 14-82 [facility] Comment on above: Performed By: #### A NGIOC #### [facility] [address] [place] [address] Dr. Tom Dotson CBC AUTO DIFFon 04-16-2022 BASO # 0.1 103/ul Normal 0.0-0.1 [facility] Comment on above: Performed By: #### I NFLUAB #### [facility] [address] [place] [address] Dr. Tom Dotson Basophils/100 WBC (Bld) 1.0 % Normal 0.2-2.0 [facility] Comment on above: Performed By: #### I NFLUAB #### [facility] [address] [place] [address] Dr. Tom Dotson EO # 0.0 103/ul Normal 0.0-0.7 [facility] Comment on above: Performed By: #### I NFLUAB #### [facility] [address] [place] [address] Dr. Tom Dotson Eosinophils/100 WBC (Bld) 0.1 % Critically low 0.9-7.0 [facility] Comment on above: Performed By: #### I NFLUAB #### [facility] [address] [place] [address] Dr. Tom Dotson Erythrocyte distribution width (RBC) [Ratio] 12.9 % Normal 11.0-15.0 [facility] Comment on above: Performed By: #### I NFLUAB #### [facility] [address] [place] [address] Dr. Tom Dotson Hematocrit (Bld) [Volume fraction] 44.8 % Normal 42.0-54.0 [facility] Comment on above: Performed By: #### I NFLUAB #### [facility] [address] [place] [address] Dr. Tom Dotson Hemoglobin (Bld) [Mass/Vol] 15.0 g/dL Normal 14.0-18.0 [facility] Comment on above: Performed By: #### I NFLUAB #### [facility] [address] [place] [address] Dr. Tom Dotson IG # 0.02 10e3/ul Normal 0.00-0.03 [facility] Comment on above: Performed By: #### I NFLUAB #### [facility] [address] [place] [address] Dr. Tom Dotson IG % 0.2 % Normal 0.0-0.5 [facility] Comment on above: Performed By: #### I NFLUAB #### [facility] [address] [place] [address] Dr. Tom Dotson LYMPH # 1.4 103/ul Normal 1.2-3.8 [facility] Comment on above: Performed By: #### I NFLUAB #### [facility] [address] [place] [address] Dr. Tom Dotson Lymphocytes/100 WBC (Bld) 17.6 % Critically low 20.5-60.0 [facility] Comment on above: Performed By: #### I NFLUAB #### [facility] [address] [place] [address] Dr. Tom Dotson MANUAL DIFF REQ NO Normal [facility] Comment on above: Performed By: #### I NFLUAB #### [facility] [address] [place] [address] Dr. Tom Dotson MCH (RBC) [Entitic mass] 30.9 pg Normal 25.9-34.0 [facility] Comment on above: Performed By: #### I NFLUAB #### [facility] [address] [place] [address] Dr. Tom Dotson MCHC (RBC) [Mass/Vol] 33.5 g/dL Normal 29.9-35.2 [facility] Comment on above: Performed By: #### I NFLUAB #### [facility] [address] [place] [address] Dr. Tom Dotson MCV (RBC) [Entitic vol] 92.2 fL Normal 80.0-94.0 [facility] Comment on above: Performed By: #### I NFLUAB #### [facility] [address] [place] [address] Dr. Tom Dotson MONO # 0.8 103/ul Normal 0.3-0.8 [facility] Comment on above: Performed By: #### I NFLUAB #### [facility] [address] [address] [address] Tom Dotson Monocytes/100 WBC (Bld) 9.6 % Normal 1.7-12.0 [facility] Comment on above: Performed By: #### I NFLUAB #### [facility] [address] [place] [address] Dr. Tom Dotson NEUT # 5.9 103/ul Normal 1.4-6.5 [facility] Comment on above: Performed By: #### I NFLUAB #### [facility] [address] [place] [address] Dr. Tom Dotson Neutrophils/100 WBC (Bld) 71.5 % Normal 43.0-75.0 [facility] Comment on above: Performed By: #### I NFLUAB #### [facility] [address] [place] [address] Dr. Tom Dotson Platelet mean volume (Bld) [Entitic vol] 9.9 fL Normal 9.5-13.5 [facility] Comment on above: Performed By: #### I NFLUAB #### [facility] [address] [place] [address] Dr. Tom Dotson PLT 325 103/ul Normal 150-450 [facility] Comment on above: Performed By: #### I NFLUAB #### [facility] [address] [place] [address] Dr. Tom Dotson RBC 4.86 106/ul Normal 4.70-6.10 [facility] Comment on above: Performed By: #### I NFLUAB #### [facility] [address] [place] [address] Dr. Tom Dotson WBC 8.2 103/ul Normal 4.0-11.0 [facility] Comment on above: Performed By: #### I NFLUAB #### [facility] [address] [place] [address] LUNG CANCER SCREENINGon [...] YARIEL OLSON Date: 2022-04-10 22:57 Normal [facility] CBC AUTO DIFFon 03-06-2022 BASO # 0.1 103/ul Normal 0.0-0.1 [facility] Comment on above: Performed By: #### C BC #### [facility] [address] [address] [address] Tom Dotson Basophils/100 WBC (Bld) 1.0 % Normal 0.2-2.0 [facility] Comment on above: Performed By: #### C BC #### [facility] [address] [place], [place] [address] Dr. Tom Dotson EO # 2.5 103/ul Critically high 0.0-0.7 [facility] Comment on above: Performed By: #### C BC #### [facility] [address] [place], [place] [address] Dr. Tom Dotson Eosinophils/100 WBC (Bld) 29.1 % Critically high 0.9-7.0 [facility] Comment on above: Performed By: #### C BC #### [facility] [address] [address] [address] Tom Dotson Erythrocyte distribution width (RBC) [Ratio] 12.8 % Normal 11.0-15.0 [facility] Comment on above: Performed By: #### C BC #### [facility] [address] [place] [address] Dr. Tom Dotson Hematocrit (Bld) [Volume fraction] 46.6 % Normal 42.0-54.0 [facility] Comment on above: Performed By: #### C BC #### [facility] [address] [place] [address] Dr. Tom Dotson Hemoglobin (Bld) [Mass/Vol] 14.4 g/dL Normal 14.0-18.0 [facility] Comment on above: Performed By: #### C BC #### [facility] [address] [place] [address] Dr. Tom Dotson IG # 0.04 10e3/ul Critically high 0.00-0.03 [facility] Comment on above: Performed By: #### C BC #### [facility] [address] [place] [address] Dr. Tom Dotson IG % 0.5 % Normal 0.0-0.5 [facility] Comment on above: Performed By: #### C BC #### [facility] [address] [place] [address] Dr. Tom Dotson LYMPH # 1.3 103/ul Normal 1.2-3.8 [facility] Comment on above: Performed By: #### C BC #### [facility] [address] [place] [address] Dr. Tom Dotson Lymphocytes/100 WBC (Bld) 15.1 % Critically low 20.5-60.0 [facility] Comment on above: Performed By: #### C BC #### [facility] [address] [place] [address] Dr. Tom Dotson MANUAL DIFF REQ NO Normal [facility] Comment on above: Performed By: #### C BC #### [facility] [address] [place] [address] Dr. Tom Dotson MCH (RBC) [Entitic mass] 29.5 pg Normal 25.9-34.0 [facility] Comment on above: Performed By: #### C BC #### [facility] [address] [place] [address] Dr. Tom Dotson MCHC (RBC) [Mass/Vol] 30.9 g/dL Normal 29.9-35.2 [facility] Comment on above: Performed By: #### C BC #### [facility] [address] [place] [address] Dr. Tom Dotson MCV (RBC) [Entitic vol] 95.5 fL Critically high 80.0-94.0 [facility] Comment on above: Performed By: #### C BC #### [facility] [address] [place] [address] Dr. Tom Dotson MONO # 0.8 103/ul Normal 0.3-0.8 [facility] Comment on above: Performed By: #### C BC #### [facility] [address] [place] [address] Dr. Tom Dotson Monocytes/100 WBC (Bld) 9.5 % Normal 1.7-12.0 [facility] Comment on above: Performed By: #### C BC #### [facility] [address] [place] [address] Dr. Tom Dotson NEUT # 3.9 103/ul Normal 1.4-6.5 [facility] Comment on above: Performed By: #### C BC #### [facility] [address] [place] [address] Dr. Tom Dotson Neutrophils/100 WBC (Bld) 44.8 % Normal 43.0-75.0 [facility] Comment on above: Performed By: #### C BC #### [facility] [address] [place] [address] Dr. Tom Dotson Platelet mean volume (Bld) [Entitic vol] 10.2 fL Normal 9.5-13.5 [facility] Comment on above: Performed By: #### C BC #### [facility] [address] [place] [address] Dr. Tom Dotson PLT 328 103/ul Normal 150-450 [facility] Comment on above: Performed By: #### C BC #### [facility] [address] [place] [address] Dr. Tom Dotson RBC 4.88 106/ul Normal 4.70-6.10 [facility] Comment on above: Performed By: #### C BC #### [facility] [address] [place] [address] Dr. Tom Dotson WBC 8.7 103/ul Normal 4.0-11.0 [facility] Comment on above: Performed By: #### C BC #### [facility] [address] [place] [address] Dr. Tom Dotson DIFFERENTIAL MANUALon 2021 ATYPICAL LYMPH # 0.09 103/ul Normal [facility] Comment on above: Performed By: #### D IFF #### [facility] [address] [place] [address] Dr. Tmo Dotson ATYPICAL LYMPH % 1 % Normal [facility] Comment on above: Performed By: #### D IFF #### [facility] [address] [place] [address] Dr. Tom Dotson BAND # 0.0 103/ul Normal 0.0-0.3 [facility] Comment on above: Performed By: #### D IFF #### [facility] [address] [place] [address] Dr. Tom Dotson BAND % 0 % Normal 0-5 [facility] Comment on above: Performed By: #### D IFF #### [facility] [address] [place] [address] Dr. Tom Dotson BASOM # 0.00 103/ul Normal 0.00-0.10 [facility] Comment on above: Performed By: #### D IFF #### [facility] [address] [place] [address] Dr. Tom Dotson BASOM % 0.0 % Critically low 0.2-2.0 [facility] Comment on above: Performed By: #### D IFF #### [facility] [address] [address] [address] Tom Dotson BLAST # Normal [facility] Comment on above: Performed By: #### D IFF #### [facility] [address] [place] [address] Dr. Tom Dotson BLAST % Normal [facility] Comment on above: Performed By: #### D IFF #### [facility] [address] [place] [address] Dr. Tom Dotson CORRECTED WBC Normal 4.0-11.0 [facility] Comment on above: Performed By: #### D IFF #### [facility] [address] [place] [address] Dr. Tom Dotson EOS # 1.22 103/ul Critically high 0.00-0.70 [facility] [place] [facility] Comment on above: Performed By: #### D IFF #### [facility] [address] [place] [address] Dr. Tom Dotson EOS% 14.0 % Critically high 0.9-7.0 [facility] Comment on above: Performed By: #### D IFF #### [facility] [address] [place] [address] Dr. Tom Dotson LYMPHM # 1.91 103/ul Normal 1.20-3.80 [facility] Comment on above: Performed By: #### D IFF #### [facility] [address] [place] [address] Dr. Tom Dotson LYMPHM% 22.0 % Normal 20.5-60.0 [facility] Comment on above: Performed By: #### D IFF #### [facility] [address] [place] [address] Dr. Tom Dotson METAMYELOCYTE # Normal [facility] Comment on above: Performed By: #### D IFF #### [facility] [address] [place] [address] Dr. Tom Dotson METAMYELOCYTE % Normal [facility] Comment on above: Performed By: #### D IFF #### [facility] [address] [address] [address] Tom Dotson MONOM# 0.52 103/ul Normal 0.30-0.80 [facility] Comment on above: Performed By: #### D IFF #### [facility] [address] [address] [address] Tom Dotson MONOM% 6.0 % Normal 1.7-12.0 [facility] Comment on above: Performed By: #### D IFF #### [facility] [address] [address] [address] Tom Dotson MYELOCYTE # Normal [facility] Comment on above: Performed By: #### D IFF #### [facility] [address] [place] [address] Dr. Tom Dotson MYELOCYTE % Normal [facility] Comment on above: Performed By: #### D IFF #### [facility] [address] [place] [address] Dr. Tom Dotson NRBC Normal [facility] Comment on above: Performed By: #### D IFF #### [facility] [address] [place] [address] Dr. Tom Dotson SEG # 4.96 103/ul Normal 1.40-6.50 [facility] Comment on above: Performed By: #### D IFF #### [facility] [address] [place] [address] Dr. Tom Dotson SEG % 57.0 % Normal 43.0-75.0 [facility] Comment on above: Performed By: #### D IFF #### [facility] [address] [address] [address] Tom Dotson WBC 8.7 103/ul Normal 4.0-11.0 [facility] Comment on above: Performed By: #### D IFF #### [facility] [address] [place] [address] Dr. Tom Dotson LIPID PROFILEon 03-06-2022 CHOL-HDL RATIO NORM SEE BELOW Normal [facility] Comment on above: Result Comment: 3.3 - 4.4 LOW RISK 4.4 - 7.1 AVERAGE RISK 7.1 - 11.0 MODERATE RISK >11.0 HIGH RISK Performed By: #### I NFLUAB #### [facility] [address] [address] [address] Tom Dotson Cholesterol [Mass/Vol] 135 mg/dL Normal <=200 [facility] Comment on above: Performed By: #### I NFLUAB #### [facility] [address] [address] [address] Tom Dotson Cholesterol in HDL [Mass/Vol] 51 mg/dL Normal 40-60 [facility] Comment on above: Performed By: #### I NFLUAB #### [facility] [address] [address] [address] Tom Dotson Cholesterol in LDL [Mass/Vol] 74.4 mg/dL Normal [facility] Comment on above: Performed By: #### I NFLUAB #### [facility] [address] [address] [address] Tom Dotson Cholesterol.total/Ch olesterol in HDL [Mass ratio] 2.6 {ratio} Normal [facility] Comment on above: Performed By: #### I NFLUAB #### [facility] [address] [place] [address] Dr. Tom Dotson HDL NORMAL > or = 60 mg/dl - LOW CARDIOVASCULAR RISK <40 mg/dl - HIGH CARDIOVASCULAR RISK Normal [facility] Comment on above: Performed By: #### I NFLUAB #### [facility] [address] [place] [address] Dr. Tom Dotson LDL CALC NORMAL SEE BELOW Normal [facility] Comment on above: Result Comment: <100 mg/dl OPTIMAL 100 - 129 mg/dl NEAR OR ABOVE OPTIMAL 130 - 159 mg/dl BORDERLINE HIGH 160 - 189 mg/dl HIGH >190 mg/dl VERY HIGH Performed By: #### I NFLUAB #### [facility] [address] [address] [address] Tom Dotson Triglyceride [Mass/Vol] 48 mg/dL Normal <=150 [facility] Comment on above: Performed By: #### I NFLUAB #### [facility] [address] [address] [address] Tom Dotson VLDL CALC 9.6 mg/dL Normal [facility] Comment on above: Performed By: #### I NFLUAB #### [facility] [address] [address] [address] Tom Dotson PROF 14(COMP METB)on 022 Albumin [Mass/Vol] 3.8 g/dL Normal 3.4-5.0 [facility] Comment on above: Performed By: #### I NFLUAB #### [facility] [address] [address] [address] Tom Dotson Albumin/Globulin [Mass ratio] 1.1 {ratio} Normal [facility] Comment on above: Performed By: #### I NFLUAB #### [facility] [address] [place] [address] Dr. Tom Dotson ALP [Catalytic activity/Vol] 62 U/L Normal 46-116 [facility] Comment on above: Performed By: #### I NFLUAB #### [facility] [address] [address] [address] Tom Dotson ALT [Catalytic activity/Vol] 25 U/L Normal 16-63 [facility] Comment on above: Performed By: #### I NFLUAB #### [facility] [address] [address] [address] Tom Dotson Anion gap [Moles/Vol] 9.8 mmol/L Normal [facility] Comment on above: Performed By: #### I NFLUAB #### [facility] [address] [address] [address] Tom Dotson AST [Catalytic activity/Vol] 15 U/L Normal 15-37 [facility] Comment on above: Performed By: #### I NFLUAB #### [facility] [address] [place] [address] Dr. Tom Dotson Bilirubin [Mass/Vol] 0.9 mg/dL Normal 0.2-1.0 [facility] Comment on above: Performed By: #### I NFLUAB #### [facility] [address] [address] [address] Tom Dotson Calcium [Mass/Vol] 8.8 mg/dL Normal 8.5-10.1 [facility] Comment on above: Performed By: #### I NFLUAB #### [facility] [address] [address] [address] Tom Dotson Chloride [Moles/Vol] 102 mmol/L Normal 98-107 [facility] Comment on above: Performed By: #### I NFLUAB #### [facility] [address] [address] [address] Tom Dotson CO2 [Moles/Vol] 30.5 mmol/L Normal 21.0-32.0 [facility] Comment on above: Performed By: #### I NFLUAB #### [facility] [address] [address] [address] Tom Dotson Creatinine [Mass/Vol] 0.95 mg/dL Normal 0.70-1.30 [facility] Comment on above: Performed By: #### I NFLUAB #### [facility] [address] [address] [address] Tom Dotson EGFR-AF GIBRALTARIAN >60 Normal >=60 [facility] Comment on above: Performed By: #### I NFLUAB #### [facility] [address] [address] [address] Tom Dotson EGFR-NON AF GIBRALTARIAN >60 Normal >=60 [facility] Comment on above: Performed By: #### I NFLUAB #### [facility] [address] [address] [address] Tom Dotson Globulin (S) [Mass/Vol] 3.4 g/dL Normal [facility] Comment on above: Performed By: #### I NFLUAB #### [facility] [address] [address] [address] Tom Dotson Glucose [Mass/Vol] 85 mg/dL Normal 74-106 [facility] Comment on above: Performed By: #### I NFLUAB #### [facility] [address] [address] [address] Tom Dotson Potassium [Moles/Vol] 4.3 mmol/L Normal 3.5-5.1 [facility] Comment on above: Performed By: #### I NFLUAB #### [facility] [address] [address] [address] Tom Dotson Protein [Mass/Vol] 7.2 g/dL Normal 6.4-8.2 [facility] Comment on above: Performed By: #### I NFLUAB #### [facility] [address] [address] [address] Tom Dotson Sodium [Moles/Vol] 138 mmol/L Normal 136-145 [facility] Comment on above: Performed By: #### I NFLUAB #### [facility] [address] [address] [address] Tom Dotson Urea nitrogen [Mass/Vol] 14.0 mg/dL Normal 7.0-18.0 [facility] Comment on above: Performed By: #### I NFLUAB #### [facility] [address] [address] [address] Tom Dotson Urea nitrogen/Creatinine [Mass ratio] 14.7 mg/mg Normal [facility] Comment on above: Performed By: #### I NFLUAB #### [facility] [address] [address] [address] Tom Dotson TSHon 03-06-2022 TSH 1.010 uIU/mL Normal 0.358-3.740 [facility] Comment on above: Performed By: #### I NFLUAB #### [facility] [address] [address] [address] Tom Dotson Hepatic Panelon 09-02-2019 Albumin [Mass/Vol] 3.2 g/dL Normal 3.2-5.5 [facility] Comment on above: Performed By: #### H EPATIC, LIPID, TSH3 wRFLX, [id number] #### [facility] [address] Albumin/Globulin [Mass ratio] 1.1 {ratio} Normal [facility] Comment on above: Performed By: #### H EPATIC, LIPID, TSH3 wRFLX, [id number] #### [facility] [address] ALP [Catalytic activity/Vol] 38 U/L Normal 32-92 [facility] Comment on above: Performed By: #### H EPATIC, LIPID, TSH3 wRFLX, [id number] #### [facility] [address] ALT [Catalytic activity/Vol] 14 U/L Normal 10-60 [facility] Comment on above: Performed By: #### H EPATIC, LIPID, TSH3 wRFLX, [id number] #### [address] AST [Catalytic activity/Vol] 13 U/L Normal 10-42 [facility] Comment on above: Performed By: #### H EPATIC, LIPID, TSH3 wRFLX, [id number] #### [facility] [address] Bilirubin [Mass/Vol] 0.9 mg/dL Normal 0.3-1.2 [facility] Comment on above: Performed By: #### H EPATIC, LIPID, TSH3 wRFLX, [id number] #### [facility] [address] [place] [address] Bilirubin,Indirect 0.8 mg/dL Normal [facility] Comment on above: Performed By: #### H EPATIC, LIPID, TSH3 wRFLX, [id number] #### [facility] [address] [place] [address] Bilirubin.direct [Mass/Vol] 0.1 mg/dL Normal 0.0-0.4 [facility] Comment on above: Performed By: #### H EPATIC, LIPID, TSH3 wRFLX, [id number] #### [facility] [address] Globulin (S) [Mass/Vol] 2.9 g/dL Normal [facility] Comment on above: Performed By: #### H EPATIC, LIPID, TSH3 wRFLX, [id number] #### [facility] [address] Protein [Mass/Vol] 6.1 g/dL Normal 6.1-7.9 [facility] Comment on above: Performed By: #### H EPATIC, LIPID, TSH3 wRFLX, [id number] #### [facility] [address] Lipid Panelon 09-02-2019 Cholesterol [Mass/Vol] 158 mg/dL Normal 140-200 [facility] Comment on above: Result Comment: Chol less than 200 mg/dl low risk Chol 201-239 mg/dl borderline risk Chol 240 mg/dl and greater high risk Performed By: #### H EPATIC, LIPID, TSH3 wRFLX, [id number] #### [facility] [address] [place] [address] Cholesterol in HDL [Mass/Vol] 61 mg/dL Normal 29-71 [facility] Comment on above: Result Comment: HDL CHOL ATP-III CLASSIFICATION Cardiovascular Risk HDL > or equal to 60 mg/dL LOW HDL < 40 mg/dL HIGH Performed By: #### H EPATIC, LIPID, TSH3 wRFLX, [id number] #### [facility] [address] Cholesterol.total/Ch olesterol in HDL [Mass ratio] 2.6 {ratio} Normal <5.0 [facility] Comment on above: Performed By: #### H EPATIC, LIPID, TSH3 wRFLX, [id number] #### [facility] [address] LDL Cholesterol,Calculat ed 84 mg/dL Normal 0-100 [facility] Comment on above: Result Comment: LDL ATP III CLASSIFICATION LDL less than 100 mg/dL Optimal LDL 100-129 mg/dL Near or above optimal LDL 130-159 mg/dL Borderline high LDL 160-189 mg/dL High LDL greater than 189 mg/dL Very high Performed By: #### H EPATIC, LIPID, TSH3 wRFLX, [id number] #### [facility] [address] [id number] [facility] Triglyceride w/Reflex 63 mg/dL Normal 35-149 [facility] Comment on above: Result Comment: TRIG ATP III CLASSIFICATION TRIG less than 150 mg/dL Normal TRIG 150-199 mg/dL Borderline high TRIG 200-500 mg/dL High TRIG greater than 500 mg/dL Very high Standard traceable to the Center for Disease Conrtrol and Prevention (CDC) test method. Performed By: #### H EPATIC, LIPID, TSH3 wRFLX, [id number] #### [facility] [address] VLDL CHOLESTEROL 12 mg/dL Normal [facility] Comment on above: Performed By: #### H EPATIC, LIPID, TSH3 wRFLX, [id number] #### [facility] [address] [id number] [facility] Thyroid Stim Hormone w/Rflxo n 09-02-2019 Thyroid Stim Hormone w/Rflx 1.92 u[iU]/mL Normal 0.45-5.33 [facility] Comment on above: Performed By: #### H EPATIC, LIPID, TSH3 wRFLX, [id number] #### [facility] [address] Vitamin D 25 Hydroxy Totalon 09-02-2019 Vitamin D 25 Hydroxy Total 11.9 ng/mL Low 30-100 [facility] Comment on above: Result Comment: DAE MIN D STATUS 25(OH)VITAMIN D RANGE (ng/mL) Deficient <20 Insufficient 20 to <30 Sufficient 30 to 100 Reference: Darrion MF,Zane NC, Hanna AVELAR, et al. Evaluation,treatment, and prevention of vitamin D deficiency; an Endocrine Society clinical practice guideline. JCEM. 2010; 96(7):1911-30. PERFORMED BY: [place] [address] PATHOLOGIST ASSOCIATE CIVIL ENGINEER MIGUELINA FLODO M.D. Performed By: #### H EPATIC, LIPID, TSH3 wRFLX, [id number] #### [facility] [address] [id number] [facility] Vital Signs Date Time Vital Sign Value Performing Clinician Madan mayer 08-16-2024 13:20-0500 Body height 185.4 cm Azul Bragamichele VIDEO CAMERA OPERATOR Work Phone: [facility] 08-16-2024 13:20-0500 Body mass index (BMI) [Ratio] 25.17 kg/m2 Azul Leerani VIDEO CAMERA OPERATOR Work Phone: [facility] 08-16-2024 13:20-0500 Body temperature 98.29 [degF] Azul Leerani VIDEO CAMERA OPERATOR Work Phone: [facility] 08-16-2024 13:20-0500 Body weight 86.55 kg Azul Quezada VIDEO CAMERA OPERATOR Work Phone: [facility] 08-16-2024 13:20-0500 Diastolic blood pressure 78 mm[Hg] Azul Leerani VIDEO CAMERA OPERATOR Work Phone: [facility] 08-16-2024 13:20-0500 Heart rate 77 /min Azul Bragaz VIDEO CAMERA OPERATOR Work Phone: [facility] 08-16-2024 13:20-0500 Respiratory rate 24 /min Azul Quezada VIDEO CAMERA OPERATOR Work Phone: [facility] 08-16-2024 13:20-0500 SaO2% (BldA) [Mass fraction] 97 % Azul Leerani VIDEO CAMERA OPERATOR Work Phone: [facility] 08-16-2024 13:20-0500 Systolic blood pressure 116 mm[Hg] Azul Bragaz VIDEO CAMERA OPERATOR Work Phone: [facility] 05-31-2024 13:20-0400 Body height 185.4 cm Vecast Work Phone: [facility] 05-31-2024 13:20-0400 Body mass index (BMI) [Ratio] 23.67 kg/m2 [employer] Work Phone: [facility] 05-31-2024 13:20-0400 Body weight 81.38 kg Ibeth Argueta DO Work Phone: [facility] 05-31-2024 13:20-0400 Diastolic blood pressure 66 mm[Hg] Ibeth Argueta DO Work Phone: [facility] 05-31-2024 13:20-0400 Heart rate 70 /min Ibeth Argueta DO Work Phone: [facility] 05-31-2024 13:20-0400 Respiratory rate 12 /min Ibeth Argueta DO Work Phone: [facility] 05-31-2024 13:20-0400 SaO2% (BldA) [Mass fraction] 98 % Ibeth Argueta DO Work Phone: [facility] 05-31-2024 13:20-0400 Systolic blood pressure 110 mm[Hg] Ibeth Argueta DO Work Phone: [facility] 05-19-2024 14:17-0400 Body height 185.4 cm Azul Damien VIDEO CAMERA OPERATOR Work Phone: [facility] 05-19-2024 14:17-0400 Body mass index (BMI) [Ratio] 23.62 kg/m2 Azul Damien VIDEO CAMERA OPERATOR Work Phone: [facility] 05-19-2024 14:17-0400 Body temperature 98.01 [degF] Azul Damien VIDEO CAMERA OPERATOR Work Phone: [facility] 05-19-2024 14:17-0400 Body weight 81.19 kg Azul Damien VIDEO CAMERA OPERATOR Work Phone: [facility] 05-19-2024 14:17-0400 Diastolic blood pressure 64 mm[Hg] Azul Damien VIDEO CAMERA OPERATOR Work Phone: [facility] 05-19-2024 14:17-0400 Heart rate 79 /min Azul Damien VIDEO CAMERA OPERATOR Work Phone: [facility] 05-19-2024 14:17-0400 Respiratory rate 22 /min Azul Maria Luzz VIDEO CAMERA OPERATOR Work Phone: [facility] 05-19-2024 14:17-0400 SaO2% (BldA) [Mass fraction] 94 % Azulailyn Bragaz VIDEO CAMERA OPERATOR Work Phone: [facility] 05-19-2024 14:17-0400 Systolic blood pressure 90 mm[Hg] Azul Rosaholz VIDEO CAMERA OPERATOR Work Phone: [facility] 10-30-2023 10:00-0500 Body height 185.4 cm Azul Rosaholz VIDEO CAMERA OPERATOR Work Phone: [facility] 10-30-2023 10:00-0500 Body mass index (BMI) [Ratio] 26.84 kg/m2 Azulailyn Leeholz VIDEO CAMERA OPERATOR Work Phone: [facility] 10-30-2023 10:00-0500 Body temperature 97.11 [degF] Azulailyn Leeholz VIDEO CAMERA OPERATOR Work Phone: [facility] 10-30-2023 10:00-0500 Body weight 92.26 kg Azulailyn Leeholz VIDEO CAMERA OPERATOR Work Phone: [facility] 10-30-2023 10:00-0500 Diastolic blood pressure 78 mm[Hg] Azulailyn Leeholz VIDEO CAMERA OPERATOR Work Phone: [facility] 10-30-2023 10:00-0500 Heart rate 83 /min Azul Leidymaxholz VIDEO CAMERA OPERATOR Work Phone: [facility] 10-30-2023 10:00-0500 Respiratory rate 16 /min Azul Rosaholz VIDEO CAMERA OPERATOR Work Phone: [facility] 10-30-2023 10:00-0500 SaO2% (BldA) [Mass fraction] 94 % Azul Rosaholz VIDEO CAMERA OPERATOR Work Phone: [facility] 10-30-2023 10:00-0500 Systolic blood pressure 138 mm[Hg] Azul Aichholz VIDEO CAMERA OPERATOR Work Phone: [facility] Healthcare Encounters Encounter Date Encounter Type Care Provider Facility Start: 10-22-2024 End: 10-22-2024 Clinisync Result Encounter Generic External Data Provider [facility] Unsolicited Start: 10-22-2024 End: 10-22-2024 Clinisync Result Encounter Generic External Data Provider [facility] External [facility] Unsolicited Start: 09-06-2024 End: 09-07-2024 Clinisync Result Encounter Azul Quezada VIDEO CAMERA OPERATOR Work Phone: [facility] Unsolicited Start: 09-06-2024 End: 09-07-2024 Clinisync Result Encounter Azul Quezada VIDEO CAMERA OPERATOR Work Phone: [facility] Unsolicited Start: 08-16-2024 End: 08-16-2024 Bamboo flowsheet Azul Quezada VIDEO CAMERA OPERATOR Work Phone: [facility] Start: 08-16-2024 End: 08-16-2024 Bamboo flowsheet Azul Quezada VIDEO CAMERA OPERATOR Work Phone: [facility] Start: 08-16-2024 End: 08-16-2024 Office outpatient visit 25 minutes Azul Quezada VIDEO CAMERA OPERATOR Work Phone: [facility] Comment on above: Depression with anxi ety (Primary Dx); Primary insomnia; Cerebrovascular accident (CVA), unspecified mechanism (CMS/HCC); Centrilobular emphysema (CMS/HCC); Bilateral carotid artery stenosis; Sessile colonic polyp; Smoker; Needs flu shot; Former smoker; Insomnia, unspecified Start: 08-16-2024 End: 08-16-2024 ambulatory AZUL DAMIEN Not Available Start: 07-06-2024 End: 07-06-2024 Clinisync Result Encounter Generic External Data Provider [facility] Unsolicited Start: 07-06-2024 End: 07-06-2024 Clinisync Result Encounter Generic External Data Provider [facility] Unsolicited Start: 06-02-2024 End: 06-02-2024 Refill Azul Quezada VIDEO CAMERA OPERATOR Work Phone: [facility] Comment on above: Depression with anxi ety; Insomnia, unspecified; Mixed hyperlipidemia (CMS/HCC) Start: 06-01-2024 End: 06-01-2024 Orders Only Azul Quezada VIDEO CAMERA OPERATOR Work Phone: [facility] Comment on above: Rising PSA level (Pr imary Dx) Start: 05-31-2024 End: 05-31-2024 Clinisync Result Encounter Azul Damien VIDEO CAMERA OPERATOR Work Phone: [facility] Unsolicited Start: 05-31-2024 End: 05-31-2024 Clinisync Result Encounter Azul Damien VIDEO CAMERA OPERATOR Work Phone: [facility] Unsolicited Start: 05-31-2024 End: 05-31-2024 Patient encounter procedure Ibeth Argueta DO Work Phone: [facility] Comment on above: Screening for malign ant neoplasm of colon (Primary Dx) Start: 05-31-2024 End: 05-31-2024 ambulatory IBETH ARGUETA Not Available Start: 05-19-2024 End: 05-19-2024 Bamboo flowsheet Azul Damien VIDEO CAMERA OPERATOR Work Phone: [facility] Start: 05-19-2024 End: 05-19-2024 Bamboo flowsheet Azul Damien VIDEO CAMERA OPERATOR Work Phone: [facility] Start: 05-19-2024 End: 05-19-2024 Office outpatient visit 25 minutes Azul Quezada VIDEO CAMERA OPERATOR Work Phone: [facility] Comment on above: Depression with anxi ety (Primary Dx); Screening for prostate cancer; Smoker; Mixed hyperlipidemia (CMS/HCC); Sessile colonic polyp; Centrilobular emphysema (CMS/HCC); Bilateral carotid artery stenosis; Right hand pain Start: 05-19-2024 End: 05-19-2024 ambulatory AZUL AICHHOLZ Not Available Start: 02-18-2024 End: 02-18-2024 ambulatory AZUL AICHHOLZ Not Available Start: 01-14-2024 End: 03-11-2024 Telephone encounter Grace Moore RN [facility] Start: 12-15-2023 End: 12-15-2023 ambulatory 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 Not Available Start: 11-13-2023 Patient encounter procedure Azul Leenormamichele VIDEO CAMERA OPERATOR Work Phone: [facility] Start: 11-13-2023 End: 11-13-2023 ambulatory AZUL LEENORMAMichele Not Available Start: 10-30-2023 End: 10-30-2023 Office outpatient visit 15 minutes Azul Leidymaxrani VIDEO CAMERA OPERATOR Work Phone: [facility] Comment on above: Influenza (Primary D x); Marijuana abuse; Smoker; BMI 26.0-26.9,adult; Centrilobular emphysema ([facility]/HCC) Start: 10-30-2023 End: 10-30-2023 ambulatory AZUL LEERANI Not Available Start: 10-21-2023 Clinisync Result Encounter Gen lisa External Data Provider [facility] Unsolicited Start: 10-21-2023 Clinisync Result Encounter Gen lisa External Data Provider [facility] Unsolicited Start: 09-25-2022 End: 09-25-2022 ambulatory ZANE QUEZADA Facility: Start: 04-16-2022 End: 04-17-2022 ambulatory [facility] Facility:[facility] Start: 04-10-2022 End: 04-11-2022 ambulatory [facility] Facility: Start: 03-06-2022 End: 03-07-2022 ambulatory ZANE QUEZADA Facility: Procedures Date Procedure Procedure Detail Performing Clinician Start: 10-22-2024 ALL HEMOGLOBIN Generic External Data Provider Start: 09-06-2024 PSA TOTAL+% FREE Azul camejorani VIDEO CAMERA OPERATOR Work Phone: Start: 07-06-2024 ALL CBC WITH AUTO DIFF Generic External Data Provider Start: 06-15-2024 Colonoscopy Generic Pr ovider Start: 05-31-2024 TBH UA (CLEAN/CATCH) MICROSCOPIC IF INDICATE Azul Damien VIDEO CAMERA OPERATOR Work Phone: Start: 10-21-2023 BLOOD CULTURE 2 Generic External Data Provider Start: 10-21-2023 BLOOD CULTURE 1 Generic External Data Provider Start: 03-06-2022 PSA screening [facility] Comment on above: Performed By: #### P [facility] #### [facility] [address] [place] [address] Dr. Tom Dotson Start: 02-07-2022 Adult depression scr eening assessment Grace Moore RN Plan of Treatment Date Care Activity Detail Author Start: 06-15-2029 Screening for malign ant neoplasm of colon [facility] Start: 11-16-2024 End: 11-16-2024 Patient encounter procedure 11/16/2024 2:00 PM EST Office Visit [facility] [address] [place] [id number] Azul Quezada NP [address] [place] [address] [facility] Start: 11-13-2024 Medicare Annual Well ness (AWV) Medicare Annual Wellness (AWV) [facility] Start: 08-16-2024 End: 08-16-2024 Patient encounter procedure [facility] Comment on above: Primary insomnia (Pr imary Dx); Cerebrovascular accident (CVA), unspecified mechanism (CMS/HCC); Centrilobular emphysema (CMS/HCC); Bilateral carotid artery stenosis; Sessile colonic polyp; Smoker; Depression with anxiety Start: 08-04-2024 Screening for malign ant neoplasm of colon [facility] Start: 06-01-2024 End: 06-01-2025 PSA, total and free PSA, total and free Lab Routine Rising PSA level Expected: 06/01/2024 (Approximate), Expires: 06/01/2025 [facility] Work Phone: Comment on above: Expected: 06/01/2024 (Approximate), Expires: 06/01/2025 Start: 2024 Influenza vaccination [facility] Start: 05-19-2024 End: 05-19-2025 CBC W Auto Differential panel - Blood CBC and differential Lab Routine Smoker Expected: 05/19/2024 (Approximate), Expires: 05/19/2025 [facility] Work Phone: Comment on above: Expected: 05/19/2024 (Approximate), Expires: 05/19/2025 Start: 05-19-2024 End: 05-19-2025 Comprehensive metabolic 2000 panel - Serum or Plasma Comprehensive metabolic panel Lab Routine Depression with anxiety Mixed hyperlipidemia (CMS/HCC) Expected: 05/19/2024 (Approximate), Expires: 05/19/2025 [facility] Comment on above: Expected: 05/19/2024 (Approximate), Expires: 05/19/2025 Start: 05-19-2024 End: 05-19-2025 Lipid 1996 panel - Serum or Plasma Lipid panel Lab Routine Mixed hyperlipidemia (CMS/HCC) Expected: 05/19/2024 (Approximate), Expires: 05/19/2025 [facility] Comment on above: Expected: 05/19/2024 (Approximate), Expires: 05/19/2025 Start: 05-19-2024 End: 05-19-2024 Patient encounter procedure 05/19/2024 2:00 PM EDT Office Visit [facility] [address] [place] [address] Azul Quezada NP [address] [place] [id number] Screening for prostate cancer (Primary Dx); Smoker; Depression with anxiety; Mixed hyperlipidemia (CMS/HCC) [facility] Comment on above: Screening for prosta te cancer (Primary Dx); Smoker; Depression with anxiety; Mixed hyperlipidemia (CMS/HCC) Start: 05-19-2024 End: 05-19-2025 Prostate specific Ag [Mass/volume] in Serum or Plasma PSA Lab Routine Screening for prostate cancer Expected: 05/19/2024 (Approximate), Expires: 05/19/2025 [facility] Comment on above: Expected: 05/19/2024 (Approximate), Expires: 05/19/2025 Start: 05-19-2024 End: 05-19-2025 Urinalysis complete panel - Urine Urinalysis with reflex microscopic (clean catch) Lab Routine Smoker Expected: 05/19/2024 (Approximate), Expires: 05/19/2025 [facility] Comment on above: Expected: 05/19/2024 (Approximate), Expires: 05/19/2025 Start: 03-21-2024 Influenza vaccination Influenza Vacc ine (#1) [facility] Comment on above: Postponed from 05/23 (Patient Refused) Start: 01-14-2024 End: 01-13-2025 US Carotid arteries - bilateral Vas carotid duplex bilateral Vascular Ultrasound Routine Internal carotid artery stenosis, right Expected: 01/14/2024, Expires: 01/13/2025 [employer] Work Phone: Comment on above: Expected: 01/14/2024 , Expires: 01/13/2025 Start: 11-13-2023 End: 11-13-2023 Patient encounter procedure 11/13/2023 9:40 AM EST Office Visit [facility] [address] [place] [address] Azul Quezada, ORACIO [address] [place] [address] [facility] Start: 10-30-2023 End: 10-30-2023 Patient encounter procedure 10/30/2023 10:00 AM EST Office Visit [facility] [address] [place] [address] Azul Quezada, ORACIO [address] [place] [address] [facility] Start: 2023 Influenza vaccination Influenza Vacc ine (#1) [facility] Start: 03-08-2023 Adult BMI Screening Adult BMI Screen ing [facility] Start: 03-08-2023 Tobacco Screening Tobacco Screening [facility] Start: 02-07-2023 Depression Screening Depression Scre ening [facility] Start: 2010 Administration of varicella zoster vaccine Zoster (Shingles) Vaccine (1 of 2) [facility] Start: 1979 DTaP,Tdap and Td Vaccines (1 - Tdap) DTaP,Tdap and Td Vaccines (1 - Tdap) [facility] Start: 1960 Medicare Annual Well ness (AWV) Medicare Annual Wellness (AWV) [facility] Start: 1960 Screening for malign ant neoplasm of colon [facility] BLOOD CULTURE 1 BLOOD CULTURE 1 Lab Routine 10/21/2023 12:27 PM EST [facility] BLOOD CULTURE 2 BLOOD CULTURE 2 Lab Routine 10/21/2023 12:30 PM EST [facility] Immunizations Immunization Date Immunization Notes Care Provider Fa [facility] 08-16-2024 Influenza, injectabl e, Madin Marjan Canine Kidney, preservative free, quadrivalent Azul Aichholz VIDEO CAMERA OPERATOR Work Phone: [facility] 2020 influenza, live, intranasal, quadrivalent Azul Aichholz VIDEO CAMERA OPERATOR Work Phone: [facility] 2020 influenza virus vaccine, unspecified formulation Generic Provider [facility] 08-04-2019 influenza, high dose seasonal, preservative-free Azul Aichholz VIDEO CAMERA OPERATOR Work Phone: [facility] 07-05-2015 influenza, injectabl e, quadrivalent, preservative free Azul Aichholz VIDEO CAMERA OPERATOR Work Phone: [facility] 07-05-2015 influenza virus vaccine, unspecified formulation Grace Moore RN [facility] Payers Date Payer Category Payer Medicaid MEDICAID [facility] EDICAID [id number] 2019-Present [phone] [address] [place] [address] [id number] 1993 Medicare [id number] 1993 Medicare [id number] 1960 Unknown [id number] 1960 Unknown [id number] 1960 Unknown [id number] 1960 Unknown [id number] 1960 Unknown [id number] 1960 Unknown [id number] 1960 Unknown [id number] 1960 Unknown [id number] 1960 Unknown [id number] 1960 Unknown [id number] 1960 Unknown [id number] 1959 Medicaid [id number] 1959 Unknown [id number] Social History Date Type Detail Facility Tobacco smoking stat [facility] Tobacco smoking consumption unknown [facility] Start: 1960 Sex Assigned At Not on file [facility] Start: 10-17-2020 End: 10-30-2023 Gender identity Not on file [facility] Start: 10-30-2023 Tobacco smoking status WYIS Ex-smoker [facility] Start: 03-22-1984 End: 03-22-2019 History of tobacco use Current smoker [facility] Start: 03-22-1984 End: 03-22-2019 History of tobacco use Cigarette Smoker [facility] Start: 10-17-2020 End: 10-30-2023 Cigarettes smoked current (pack per day) - Reported 1 [facility] Start: 02-08-2021 End: 10-30-2023 Tobacco use and exposure Smokeless tobacco non-user [facility] Start: 10-30-2023 End: 08-16-2024 Alcohol intake Current drinker of alcohol (finding) [facility] Start: 10-28-2023 Alcohol Comment coffee more than 4 cups per day [facility] Within the last year , have you been afraid of your partner or ex-partner? No [facility] Do you belong to any clubs or organizations such as nondenominational groups, [employer], [employer] or athletic groups, or school groups? Yes [facility] Are you now , , , , never or living with a partner? [facility] How often to you hav e [...] Only a little [facility] (I/We) worried faye er (my/our) food would run out before (I/we) got money to buy more. Never true [facility] Start: 02-08-2021 Tobacco smoking status NHIS Smokes tobacco daily [facility] Start: 03-08-2022 Alcoholic beverage intake Ex-drinker (finding) [facility] Are you now , , , , never or living with a partner? Living with partner [facility] How often to you hav e a drink containing alcohol? Monthly or less [facility] Do you feel stress - tense, restless, nervous, or anxious, or unable to sleep at night because your mind is troubled all the time - these days [OSQ] Not at all [facility] Start: 12-21-2020 Tobacco Comment quit 4 days ago as of 12/21/20 [facility] Medical Equipment Procedure Code Equipment Code Equipment Origin al Text Equipment Identifier Dates Stnt Vsc 8/6mm 6 fr 30mm 135cm - [id number] Start: 06-12-2020 Goals Date Patient Goal Desired Activity /State Personal health goal Comment on above: Formatting of this n ote might be different from the original. Evaluation of progress towards goal: Return home with self care and family support. Clinical Notes 10-30-2023 to 08-16-2024 Azul Quezada NP - 08/16/2024 1:38 PM RACHEL NOBLE - 08/16/2024 1:20 PM Elvis Quezada NP - 08/16/2024 1:20 PM Elvis Quezada NP - 08/16/2024 7:27 AM ESTPatient Instructions Note Date & Type Note Facility [...] (CMS/HCC) COVID-19 07/2019 CVA (cerebral vascular accident) ([facility]) Degenerative cervical disc Depression with anxiety Insomnia Marijuana abuse 10/30/2023 Multiple pulmonary nodules Neck mass 2014 Osteoarthritis Papule of skin 11/13/2023 Pigmented skin lesion of uncertain nature Rheumatic fever Stroke ([facility]/HCC) 07/2020 Testicle lump Tourette's ([facility]) Vertebral artery occlusion Vocal cord polyp Past Surgical History: Procedure Laterality Date ADENOIDECTOMY CAROTID STENT Right 09/2019 stent, RT carotid CT GUIDED TRANSVAGINAL TRANSRECTAL FLUID DRAIN 06/09/2020 CT GUIDED TRANSVAGINAL TRANSRECTAL FLUID DRAIN 06/09/2020 OTHER SURGICAL HISTORY Removal of Polyp Vocal area and Vocal Cord cyst RI EXCISION THYROGLOSSAL DUCT CYST/SINUS Procedure:DL, e/o thyroglossal [...] of the risks of continued smoking: stroke, [place], all forms of cancer, lung disease, and [...] Relevant Orders Flu vaccine, MDCK, quadrivalent, PF ([id number]) (Flucelvax single dose syringe) (Completed) Former smoker [...] of the risks of continued smoking: stroke, [place], all forms of cancer, lung disease, and [...] Continue with trazodone documented in this encounter [facility] 08-16-2024 Instructions Azul Quezada NP - 08/16/2024 1:20 PM EST Great job at quitting smoking Keep follow up with dr tim as directed Follow up with Vascular doctor in [place] as well as directed documented in this encounter [facility] 05-31-2024 History of Presen t illness Narrative General Surgery H&P Sam Carrasco 1960 Sam Carrasco is a 64 y.o. male presents with chief complaint of Colonoscopy (Pt presents today for a colonoscopy consult. He states that he did have a colonoscopy about 5 years ago and they found a polyp. Pt denies abdominal pain, changes in bowel movements, or any rectal bleeding. Pt denies any family hx of colon cancer. ) Denies hx of unplanned weight loss. Denies fevers, chills, or sweats. Denies nausea or vomiting. Last colonoscopy was 2018 SUBJECTIVE: MEDICATIONS: ALLERGIES Current Outpatient Medications Medication Instructions albuterol HFA 90 mcg/act inhaler 2 puffs, Inhalation, Every 4 hours PRN albuterol 2.5 mg, Nebulization, 4 times daily PRN aspirin 81 mg, Oral, Daily atorvastatin (LIPITOR) 40 mg, Oral, Daily bisacodyl (DULCOLAX) 5 mg, Oral, Once, Do not crush, chew, or split. Take as detailed on clinic hand out for colonoscopy prep budesonide-formoterol (Symbicort) 160-4.5 MCG/ACT inhaler 2 puffs, Inhalation, 2 times daily RT, Rinse mouth with water after use to reduce aftertaste and incidence of candidiasis. Do not swallow. EPINEPHrine (Epipen) 0.3 MG/0.3ML injection syringe 1 Syringe, Injection, Once FLUoxetine (PROZAC) 20 mg, Oral, Daily hydrOXYzine HCl (ATARAX) 25-50 mg, Oral, Every 8 hours PRN ipratropium-albuterol (Duo-Neb) 0.5-2.5 mg/3 mL nebulizer solution 3 mL, Nebulization, 4 times daily RT polyethylene glycol (PEG) 3350 (GLYCOLAX) 238 g, Oral, Once, Take as detailed from clinic hand out for colonoscopy prep predniSONE (DELTASONE) 20 mg, Oral, 2 times daily tiotropium (Spiriva Respimat) 2.5 MCG/ACT inhaler 2 puffs, Inhalation, Daily traZODone (DESYREL) 50 mg, Oral, Nightly triamcinolone (Nasacort) 55 MCG/ACT nasal inhaler 2 sprays, Each Nostril, Daily Allergies Allergen Reactions Bee Venom Unknown PAST MEDICAL HISTORY: SOCIAL HISTORY SURGICAL HISTORY: Past Medical History: Diagnosis Date Alcohol abuse Allergic rhinitis Bilateral carotid artery stenosis Calcified lymph nodes Centrilobular emphysema ([facility]) COVID-19 07/2019 CVA (cerebral vascular accident) ([facility]) Degenerative cervical disc Depression with anxiety Insomnia Marijuana abuse 10/30/2023 Multiple pulmonary nodules Neck mass 2013 Osteoarthritis Papule of skin 11/13/2023 Pigmented skin lesion of uncertain nature Rheumatic fever Stroke ([facility]) 07/2020 Testicle lump Tourette's ([facility]) Vertebral artery occlusion Vocal cord polyp Social History Tobacco Use Smoking status: Former Current packs/day: 0.00 Average packs/day: 1 pack/day for 35.0 years (35.0 ttl pk-yrs) Types: Cigarettes Start date: 03/1984 Quit date: 03/2019 Years since quittin.1 Smokeless tobacco: Never Substance Use Topics Alcohol use: Yes Alcohol/week: 1.0 - 2.0 standard drink of alcohol Types: 1 - 2 Standard drinks or equivalent per week Comment: coffee more than 4 cups per day Drug use: Never Past Surgical History: Procedure Laterality Date ADENOIDECTOMY CAROTID STENT Right 09/2019 stent, RT carotid CT GUIDED TRANSVAGINAL TRANSRECTAL FLUID DRAIN 06/09/2020 CT GUIDED TRANSVAGINAL TRANSRECTAL FLUID DRAIN 06/09/2020 OTHER SURGICAL HISTORY Removal of Polyp Vocal area and Vocal Cord cyst RI EXCISION THYROGLOSSAL DUCT CYST/SINUS Procedure:DL, e/o thyroglossal duct cyst;Disease:neck mass TONSILLECTOMY Family History Problem Relation Name Age of Onset Diabetes Mother Hypertension Mother Asthma Mother Heart attack Father Allergies Allergen Reactions Bee Venom Unknown Past Surgical History: Procedure Laterality Date ADENOIDECTOMY CAROTID STENT Right 09/2019 stent, RT carotid CT GUIDED TRANSVAGINAL TRANSRECTAL FLUID DRAIN 06/09/2020 CT GUIDED TRANSVAGINAL TRANSRECTAL FLUID DRAIN 06/09/2020 OTHER SURGICAL HISTORY Removal of Polyp Vocal area and Vocal Cord cyst RI EXCISION THYROGLOSSAL DUCT CYST/SINUS Procedure:DL, e/o thyroglossal duct cyst;Disease:neck mass TONSILLECTOMY Tobacco Use: Medium Risk (05/31/2024) Patient History Smoking Tobacco Use: Former Smokeless Tobacco Use: Never Passive Exposure: Not on file Alcohol Use: Not At Risk (11/13/2023) AUDIT-C Frequency of Alcohol Consumption: Never Average Number of Drinks: Patient does not drink Frequency of Binge Drinking: Never Depression: Not at risk (02/18/2024) PHQ-2 PHQ-2 Score: 0 Physical Activity: Insufficiently Active (11/13/2023) Exercise Vital Sign Days of Exercise per Week: 2 days Minutes of Exercise per Session: 20 min REVIEW OF SYMPTOMS: Review of Systems All other systems reviewed and are negative. 10 systems were reviewed. Positives noted above. Remainder are negative per CMS guidelines. OBJECTIVE: Visit Vitals BP 110/66 Pulse 70 Resp 12 Ht 6' 1 Wt 179 lb 6.4 oz SpO2 98% BMI 23.67 kg/m Smoking Status Former BSA 2.05 m Physical Exam Vitals reviewed. General: AAOx3, NAD Head: atraumatic normocephalic Neck: trachea midline. No masses or lymphadenopathy Heart: Regular rate and rhythm Lungs: equal chest rise and fall, non labored breathing Abdomen: soft, nontender, and non distended Ext: motor 5/5 all extremities with no gross deformities Psych: alert and oriented, behavior appropriate ASSESSMENT AND PLAN: Assessment/Plan Diagnoses and all orders for this visit: Screening for malignant neoplasm of colon - bisacodyl (Dulcolax) 5 MG EC tablet; Take 1 tablet (5 mg) by mouth 1 time for 1 dose Do not crush, chew, or split. Take as detailed on clinic hand out for colonoscopy prep - polyethylene glycol, PEG, 3350 (Glycolax) 17 GM/SCOOP powder; Take 238 g by mouth 1 (one) time for 1 dose Take as detailed from clinic hand out for colonoscopy prep Plan: Patient is average risk for colon cancer. Colonoscopy can be scheduled electively. Patient informed of the risks of procedure which include but not limited to bleeding, perforation, and risks of anesthesia. Patient understood risks and signed informed consent for the procedure under monitored anesthesia care. Handout for bowel prep provided in clinic. Patient was informed of the need for a ride home from the hospital and the need for someone to be with them for the following 24 hrs post procedure. Thank you, Mars Argueta DO documented in this encounter [facility] 05-19-2024 History of Presen t illness Narrative Associated Problem(s): Right hand pain Offered xray he declines Will just monitor at this time Associated Problem(s): Depression with anxiety Continue with fluoxetine at current dose Fu in 3 months Associated Problem(s): Bilateral carotid artery stenosis Cont with vascular Associated Problem(s): Centrilobular emphysema (CMS/HCC) Continue with pulmonology Pt states he messed up his right hand about a month ago at work- can't straighten out his hand and it bothers him Images from the original note were not included. Sam Carrasco is a 63 y.o. male presents with chief complaint of No chief complaint on file. HPI: Here for a recheck. Depression/anxiety is stable on current meds No significant changes in his breathing, Right hand pain: not sure exactly what caused it, stiffiness in the MCP joint of middle finger, no NT, more am stiffness SUBJECTIVE: MEDICATIONS: Current Outpatient Medications Medication Instructions [...] of candidiasis. Do not swallow. FLUoxetine (PROZAC) 20 mg, Oral, Daily hydrOXYzine HCl (ATARAX) 25-50 mg, Oral, Every 8 hours PRN ipratropium-albuterol (Duo-Neb) 0.5-2.5 mg/3 mL nebulizer solution 3 mL, Nebulization, 4 times daily RT tiotropium (Spiriva Respimat) [...] urine volume, difficulty urinating, dysuria and hematuria. Musculoskeletal: Positive for arthralgias. Skin: Negative for color change. Neurological: Negative for dizziness, tremors and seizures. Psychiatric/Behavioral: Negative for agitation, decreased concentration, hallucinations, self-injury and suicidal ideas. The patient is not nervous/anxious. Hematological: Negative for adenopathy. Does not bruise/bleed easily. Endocrine: Negative for cold intolerance, heat intolerance, polydipsia and polyuria. Allergic/Immunologic: Negative for environmental allergies and food allergies. PAST MEDICAL HISTORY Past Medical History: Diagnosis Date Alcohol abuse Allergic rhinitis Bilateral carotid artery stenosis Calcified lymph nodes Centrilobular emphysema ([facility]) COVID-19 07/2019 CVA (cerebral vascular accident) ([facility]) Degenerative cervical disc Depression with anxiety Insomnia Marijuana abuse 10/30/2023 Multiple pulmonary nodules Neck mass 2014 Osteoarthritis Papule of skin 11/13/2023 Pigmented skin lesion of uncertain nature Rheumatic fever Stroke ([facility]) 07/2020 Testicle lump Tourette's ([facility]) Vertebral artery occlusion Vocal cord polyp Past Surgical History: Procedure Laterality Date ADENOIDECTOMY CAROTID STENT Right 09/2019 stent, RT carotid CT GUIDED TRANSVAGINAL TRANSRECTAL FLUID DRAIN 06/09/2020 CT GUIDED TRANSVAGINAL TRANSRECTAL FLUID DRAIN 06/09/2020 OTHER SURGICAL HISTORY Removal of Polyp Vocal area and Vocal Cord cyst RI EXCISION THYROGLOSSAL DUCT CYST/SINUS Procedure:DL, e/o thyroglossal duct cyst;Disease:neck mass TONSILLECTOMY family history includes Asthma in his mother; Diabetes in his mother; Heart attack in his father; Hypertension in his mother. OBJECTIVE: Visit Vitals BP 90/64 (BP Location: Left arm, Patient Position: Sitting, BP Cuff Size: Adult) Pulse 79 Temp 98 F (Temporal) Resp 22 Ht 6' 1 Wt 179 lb SpO2 94% BMI 23.62 kg/m Smoking Status Former BSA 2.04 m Physical Exam Vitals and nursing note reviewed. Constitutional: Appearance: Normal appearance. HENT: Head: Normocephalic. Right Ear: External ear normal. Left Ear: External ear normal. Nose: Nose normal. Mouth/Throat: Mouth: Mucous membranes are moist. Pharynx: Oropharynx is clear. Eyes: Extraocular Movements: Extraocular movements intact. Conjunctiva/sclera: Conjunctivae normal. Cardiovascular: Rate and Rhythm: Normal rate and regular rhythm. Pulses: Normal pulses. Heart sounds: Normal heart sounds. Pulmonary: Effort: Pulmonary effort is normal. Breath sounds: Normal breath sounds. No wheezing. Comments: diminished Abdominal: General: Bowel sounds are normal. Palpations: Abdomen is soft. Musculoskeletal: Cervical back: Neck supple. Right lower leg: No edema. Left lower leg: No edema. Comments: Mild STS and tenderness to the 3rd MCP joint, strength 5/5 bilat Lymphadenopathy: Cervical: No cervical adenopathy. Skin: General: Skin is warm and dry. Capillary Refill: Capillary refill takes 2 to 3 seconds. Neurological: General: No focal deficit present. Mental Status: He is alert. Psychiatric: Mood and Affect: Mood normal. Behavior: Behavior normal. Thought Content: Thought content normal. Judgment: Judgment normal. ASSESSMENT AND PLAN: No follow-ups on file. Problem List Items Addressed This Visit Mixed hyperlipidemia (CMS/HCC) Relevant Orders Comprehensive metabolic panel Lipid panel Smoker Relevant Orders CBC and differential Urinalysis with reflex microscopic (clean catch) Centrilobular emphysema (CMS/HCC) Continue with pulmonology Bilateral carotid artery stenosis Cont with vascular Depression with anxiety Continue with fluoxetine at current dose Fu in 3 months Relevant Orders Comprehensive metabolic panel Screening for prostate cancer - Primary Relevant Orders PSA Sessile colonic polyp Relevant Orders Ambulatory referral to General Surgery Right hand pain Offered xray he declines Will just monitor at this time documented in this encounter [facility] 01-14-2024 Miscellaneous Notes Formattin g of this note might be different from the original. Per January 2024 recall, patient is due for routine CUS imaging per Dr. Terrell. Please call to remind patient and provide central scheduling number if needed. Will call with results once completed. Called patient, call went to VM but inbox was full and procedure writer was unable to leave message reminder for imaging. Will try again later. Received call today 01/14/24 1:05 from patient in regard to previous message and I informed him of clinical staff's messages below - he voiced understanding and I provided him with Central Scheduling phone# to schedule imaging. Called patient and reminded of imaging that is due. He stated understanding and asked if he could have it done in [place] at the [facility] facility there because he doesn't have a car and stated it would be impossible for him to make it to [place]. Shactor Helper confirmed patient had central scheduling phone number to get the scans scheduled. Called patient and got VM but it was full so procedure writer was unable to leave message reminding patient of imaging that is due. Attempted to call patient and got voicemail but procedure writer was unable to leave message due to it being full. Will try again later and send letter with order via mail. Attempted to call patient and got voicemail but procedure writer was unable to leave message due to it being full. Letter and order mailed to address on file. Will follow up in 1 month. Attempted to call patient and got voicemail but procedure writer was unable to leave message due to it being full. documented in this encounter [facility] 01-14-2024 Telephone encount er Note Per January 2024 recall, patient is due for routine CUS imaging per Dr. Terrell. Please call to remind patient and provide central scheduling number if needed. Will call with results once completed. [facility] 01-14-2024 Telephone encount er Note Called patient, call went to but inbox was full and procedure writer was unable to leave message reminder for imaging. Will try again later. [facility] 01-14-2024 Telephone encount er Note Received call today 01/14/24 1:05 from patient in regard to previous message and I informed him of clinical staff's messages below - he voiced understanding and I provided him with Central Scheduling phone# to schedule imaging. [facility] 01-14-2024 Telephone encount er Note Called patient and reminded of imaging that is due. He stated understanding and asked if he could have it done in [place] at the [facility] facility there because he doesn't have a car and stated it would be impossible for him to make it to [place]. Shactor Helper confirmed patient had central scheduling phone number to get the scans scheduled. [facility] 01-14-2024 Telephone encount er Note Called patient and got but it was full so procedure writer was unable to leave message reminding patient of imaging that is due. [facility] 01-14-2024 Telephone encount er Note Attempted to call patient and got voicemail but procedure writer was unable to leave message due to it being full. Will try again later and send letter with order via mail. [facility] 01-14-2024 Telephone encount er Note Attempted to call patient and got voicemail but procedure writer was unable to leave message due to it being full. Letter and order mailed to address on file. Will follow up in 1 month. [facility] 01-14-2024 Telephone encount er Note Attempted to call patient and got voicemail but procedure writer was unable to leave message due to it being full. [facility] 10-30-2023 History of Presen t illness Narrative [...] complaint on file. HPI: Recent hospitalization at [facility] [facility] for 3 days d/t influenza. Does [...] (CMS/HCC) COVID-19 07/2019 CVA (cerebral vascular accident) ([facility]) Degenerative cervical disc Depression with anxiety Insomnia Marijuana abuse 10/30/2023 Multiple pulmonary nodules Neck mass 2014 Osteoarthritis Papule of skin Pigmented skin lesion of uncertain nature Rheumatic fever Stroke ([facility]) 07/2020 Testicle lump Tourette's ([facility]) Vertebral artery occlusion Vocal cord polyp Past Surgical History: Procedure Laterality Date ADENOIDECTOMY CAROTID STENT Right 09/2019 stent, RT carotid CT GUIDED TRANSVAGINAL TRANSRECTAL FLUID DRAIN 06/09/2020 CT GUIDED TRANSVAGINAL TRANSRECTAL FLUID DRAIN 06/09/2020 OTHER SURGICAL HISTORY Removal of Polyp Vocal area and Vocal Cord cyst RI EXCISION THYROGLOSSAL DUCT CYST/SINUS Procedure:DL, e/o thyroglossal [...] remains off work documented in this encounter [facility] Evaluation note Diagnosis Influenza- Primary Influenza with other respiratory manifestations Marijuana abuse Nondependent cannabis abuse, unspecified Smoker Tobacco use disorder BMI 26.0-26.9,adult Centrilobular emphysema (CMS/HCC) documented in this encounter [facility]Evaluation note* Diagnosis Influenza- Primary Influenza with other respiratory [...] Insomnia, unspecified [facility] Diagnosis Depression with anxiety- Primary Dysthymic disorder Screening for prostate cancer Special screening for malignant neoplasm of prostate Smoker Tobacco use disorder Mixed hyperlipidemia (CMS/HCC) Mixed hyperlipidemia Sessile colonic polyp Benign neoplasm of colon Centrilobular emphysema (CMS/HCC) Bilateral carotid artery stenosis Occlusion and stenosis of carotid artery without mention of cerebral infarction Right hand pain Pain in soft tissues of limb documented [facility] this encounter [facility]* Diagnosis Screening for malignant neoplasm of colon- Primary documented in this encounter [facility]* Diagnosis Rising PSA level- Primary documented in this encounter [facility]* Diagnosis Depression with anxiety Dysthymic disorder Insomnia, unspecified Mixed hyperlipidemia (CMS/HCC) Mixed hyperlipidemia documented in [facility] encounter [facility]* Diagnosis Internal carotid artery stenosis, right- Primary [facility]InstructionsNot on filedocumented in this encounter [facility] SystemReason for referral (narrative)* Consultation (Routine) - Pending Review Specialty Diagnoses / Procedures Referred By Demetrius ramirez Referred To Contact General Surgery Diagnoses Sessile colonic polyp Procedures RI OFFICE/OUTPATIENT NEW HIGH MDM 60 MINUTES Azul Quezada NP [address] [place] [address] Ibeth Argueta DO [address] [facility] [address] [place] [address] Referral ID Status Reason Start Date Expiration Date Visits Requested Visits Authorized [id number] Pending Review Specialty Services Required 05/19/2024 11/15/2024 1 1 [facility] Healthcare Summary Purpose Family History No Family History Records FoundNo Family History Records FoundNo Family History Records Found Advance Directives No Advanced Directives Records FoundNo Advanced Directives Records FoundNo Advanced Directives Records Found Reason for Referral Specialty Diagnoses / Procedures Referred By Contac t Referred To Contact Diagnoses Internal carotid artery stenosis, right Procedures Vas carotid duplex bilateral Terrell, Andrew E, MD [address] [facility], [address] [place] [address] Referral ID Status Reason Start Date Expiration Date V isits Requested Visits Authorized [id number] Pending Review 01/14/2024 01/13/2025 1 1 Additional Source Comments (unrecognized sect ion and content) No Status Records FoundNo Status Records FoundNo Status Records Found INFORMATION SOURCE (unrecogn ized section and content) DATE CREATED AUTHOR 09/04/2019 [facility] DATE CREATED AUTHOR AUTHOR'S ORGANIZ ATION 09/30/2022 [facility] DATE CREATED AUTHOR AUTHOR'S ORGANIZ ATION 08/18/2024 [facility] Care Teams (unrecognized sec tion and content) Cash Management Clerk Relationship Specialty Start Date End Date Kiko Zurita MD PCP - General Family Medicine 04/07/23 Azul Quezada NP [address] [place] [phone] Referring Physician Nurse Practitioner 04/07/23 Cash Management Clerk Relationship Specialty Start Date End Date Kiko Zurita MD [address] [place] [address] PCP - General Family Medicine 10/24/23 Azul Quezada NP [address] [place] [address] Referring Physician Nurse Practitioner 04/07/23 Cash Management Clerk Relationship Specialty Start Date End Date Kiko Zurita MD [address] [place] [phone] PCP - General Family Medicine 10/24/23 zAul Quezada NP [address] [place] [address] Referring Physician Nurse Practitioner 04/07/23 Cash Management Clerk Relationship Specialty Start Date End Date Kiko Zurita MD [address] [place] [phone] PCP - General Family Medicine 10/24/23 Azul Quezada NP [address] [place] [address] Referring Physician Nurse Practitioner 04/07/23 Cash Management Clerk Relationship Specialty Start Date End Date Kiko Zurita MD [address] [place] [phone] PCP - General Family Medicine 10/24/23 Azul Quezada NP [address] [place] [address] Referring Physician Nurse Practitioner 04/07/23 Cash Management Clerk Relationship Specialty Start Date End Date Kiko Zurita MD [address] [place] [address] PCP - General Family Medicine 10/24/23 Azul Quezada NP [address] [place] [address] Referring Physician Nurse Practitioner 04/07/23 Cash Management Clerk Relationship Specialty Start Date End Date Kiko Zurita MD [address] [place] [address] PCP - General Family Medicine 10/24/23 Azul Quezada NP [address] [place] [address] Referring Physician Nurse Practitioner 04/07/23 Cash Management Clerk Relationship Specialty Start Date End Date Kiko Zurita MD [address] [place] [address] PCP - General Family Medicine 10/24/23 Azul Quezada NP [address] [place] [address] Referring Physician Nurse Practitioner 04/07/23 Cash Management Clerk Relationship Specialty Start Date End Date Kiko Zurita MD [address] [place] [phone] PCP - General Family Medicine 10/24/23 Azul Quezada NP [address] [place] [phone] Referring Physician Nurse Practitioner 04/07/23 Cash Management Clerk Relationship Specialty Start Date End Date Kiko Zurita MD [address] [place] [address] PCP - General Family Medicine 10/24/23 Azul Quezada NP [address] [place] [address] Referring Physician Nurse Practitioner 04/07/23 Cash Management Clerk Relationship Specialty Start Date End Date Kiko Zurita MD [address] [place] [phone] PCP - General Family Medicine 10/24/23 Azul Quezada NP [address] [place] [address] Referring Physician Nurse Practitioner 04/07/23 Cash Management Clerk Relationship Specialty Start Date End Date Azul Quezada, [employer]OLATE [employer]ER[employer]DIET COUNSELOR [address] [place] [address] PCP - General Nurse Practitioner 08/30/19 Reason for Visit (unrecogniz ed section and content) Reason Comments Colonoscopy Pt presents today fo r a colonoscopy consult. He states that he did have a colonoscopy about 5 years ago and they found a polyp. Pt denies abdominal pain, changes in bowel movements, or any rectal bleeding. Pt denies any family hx of colon cancer. FOR RECORDS PERTAINING TO PATIENTS WHO ARE [...] BE BASED ON THE PRIMARY CLINICAL RECORDS. [employer] provides no warranty or guarantee of the accuracy or completeness of information in this document.
== END 2024-11-16 15:55 | disposition home or self-care (01) ==
LOC: RAD 15:55
PROVIDERS: PCP Nurse Practitioner; Visit Provider Nurse Practitioner
DX: J44.1 Chronic obstructive pulmonary disease with (acute) exacerbation (principal)
CPT/HCPCS: 71046

== ENCOUNTER 2024-12-07 12:16 | Outpatient (OUT) | payer MEDICARE, SELFPAY ==
--- NOTE | 2024-12-07 12:19 | CT_ITS ---
The [address] [address] Patient Name: JUANITA KRAMER MRN: [id number] date: 1960 Sex: M Assigned Patient Location: CT Current Patient Location: CT Accession/Order Number: [id number] Exam Date: 12/07/2024 13:12 Report Date: 12/07/2024 13:15 At the request of: JAMESON WHITE DO Procedure: CT chest wo con CT CHEST WITHOUT IV CONTRAST: CLINICAL HISTORY: lung nodules COMPARISON: Lung screening CT 09/08/2024 TECHNIQUE: Spiral images were obtained through the chest without IV contrast. This CT exam was performed using one or more following dose reduction techniques: Automated exposure control, adjustment of the mA and/or kV according to patient size, or use of iterative reconstruction technique. FINDINGS: Mediastinum:Thoracic aorta demonstrates moderate calcification without aneurysm. Pulmonary trunk appears nondilated. No pericardial effusion. Calcified mediastinal and right hilar lymph nodes. The esophagus is grossly unremarkable. Small hiatal hernia. Lungs:Emphysema. Diffuse bronchial wall thickening. Calcified granulomas. No consolidation pneumothorax or pleural effusion. The previously identified nodularity involving the lower lobes has resolved. No new or suspicious pulmonary nodules are present. Benign-appearing subpleural nodule involving the right middle lobe series 4 image 63. Additional benign-appearing nodules involving the right lower lobe series 4 image 83 and 86. Abd:Liver and splenic granulomas. Soft tissues/Bones: No acute process. Osseous structures demonstrate degenerative change. CT/CT chest wo con IMPRESSION: No suspicious pulmonary nodules as seen on today's study. Previously identified nodules involving the lower lobes have resolved. LUNG RADS: Category 2, Benign appearance or behavior. Management: Continue annual lung screening with LDCT in 12 months. Impression dictated by: Grupo Marsh Jr., D.O.12/07/2024 1:15 PM Dictation Location: [place] [address] Electronically authenticated by: [id number] Y Date: 12/07/2024 13:15
== END 2024-12-07 12:17 | disposition home or self-care (01) ==
LOC: CT 12:16
PROVIDERS: PCP Nurse Practitioner; Visit Provider Internal Medicine
DX: R91.8 Other nonspecific abnormal finding of lung field (principal)
CPT/HCPCS: 71250

== ENCOUNTER 2025-03-16 08:55 | Emergency (ER) | payer MEDICARE, SELFPAY ==
[2025-03-16 09:00] VITALS: BP 145/92; PULSE 102; TEMP 36.6; O2SAT 90; BMI 26.7
--- OUTSIDE RECORDS SUMMARY | 2025-03-16 09:03 | XMS_ITS | Encounter Summary ---
Author Organization [facility] Address [address] [facility] [place] [address] Care Team Providers Care Geospatial Information Technologist Name Role Phone Kiko Zurita MD Primary Care Provider [phone] Azul Quezada INSIDE TECHNICAL SALES REPRESENTATIVE Unavailable [phone] Kiko Zurita MD Primary Care Provider Azul Quezada INSIDE TECHNICAL SALES REPRESENTATIVE Unavailable [phone] Encounter Details Date Type Department Care Team (Late st Contact Info) Description 09/25/2023 Orders Only [facility] [address] [place] [address] Azul Quezada NP [address] [place] [address] Social History Tobacco Use Types Packs/Day Years Used Date Smoking Tobacco: Never Assessed Sex and Gender Information Value Date Recorded Sex Assigned at Not on file Legal Sex Male 6:45 PM EDT Gender Identity Not on file Sexual Orientation Not on file documented as of this encounter Plan of Treatment Upcoming Encounters Date Type Department Care Team (Late st Contact Info) Description 05/19/2025 1:40 PM EDT Office Visit [facility] [address] [place] [address] Azul Quezada, ORACIO [address] [place] [address] 11/21/2025 4:30 PM EST Office Visit [facility] [address] [place] [address] Azul Quezada NP [address] [place] [address] documented as of this encounter Procedures Procedure Name Priority Date/Time Associated Diagnosis Comments ELECTROCARDIOGRAM REPORT Routine 023 1:17 PM EST documented in this encounter Results * Electrocardiogram Report (09/21/2023 1:17 PM EST) us Azul Quezada NP IN CLINIC/BEDSIDE ORDERABLES Fi nal Result documented in this encounter Visit Diagnoses Not on filedocumented in this encounter Care Teams Geospatial Information Technologist Relationship Specialty Start Date End Date Kiko Zurita MD PCP - General Family Medicine 04/07/23 10/23/23 Kiko Zurita MD [address] [place] [address] PCP - General Family Medicine 10/24/23 Azul Quezada NP [address] [place] [address] PCP - ACO Reach 10/29/24 Azul Quezada NP [address] [place] [address] Referring Physician Nurse Practitioner 04/07/23 documented as of this encounter
--- OUTSIDE RECORDS SUMMARY | 2025-03-16 09:03 | XMS_ITS | Encounter Summary ---
Author Organization [facility] Address [address] [place] [address] Care Team Providers Care Personal Lines Agent Name Role Phone Azul Quezada CARBON PAPER COATING MACHINE SETTER Unavailable [phone] Kiko Zurita MD Primary Care Provider [phone] Azul Quezada CARBON PAPER COATING MACHINE SETTER Unavailable [phone] Encounter Details Date Type Department Care Team (Late st Contact Info) Description 12/08/2023 Orders Only [facility] [address] [place] [address] Herminio Hamlin MD [address] [place] [address] Social History Tobacco Use Types Packs/Day Years Used Date Smoking Tobacco: Former Cigarettes 1 35 0 03/1984 - 03/2019 Smokeless Tobacco: Never Alcohol Use Standard Drinks/Week Comments Yes 1 (1 standard drink = 0.6 oz pure alcohol) coffee more than 4 cups per day Humiliation, Afraid, Rape, and Kick questionnair e Answer Date Recorded Within the last year, have y ou been afraid of your partner or ex-partner? No 11/13/2023 Within the last year, have y ou been humiliated or emotionally abused in other ways by your partner or ex-partner? No Within the last year, have y ou been kicked, hit, slapped, or otherwise physically hurt by your partner or ex-partner? No 11/13/2023 Within the last year, have y ou been raped or forced to have any kind of sexual activity by your partner or ex-partner? No 11/13/2023 Social Connection and Isolat ion Panel [NHANES] Answer Date Recorded In a typical week, how many times do you talk on the phone with family, friends, or neighbors? More than three times a week 11/13/2023 How often do you get togethe r with friends or relatives? More than three times a week 11/13/2023 How often do you attend chur ch or orthodoxy services? Never 11/13/2023 Do you belong to any clubs o r organizations such as mandaen groups, unions, fraternal or athletic groups, or school groups? Yes 11/13/2023 How often do you attend meet ings of the clubs or organizations you belong to? More than 4 times per year 11/13/2023 Are you , , di vorced, , never , or living with a partner? 11/13/2023 AUDIT-C Answer Date Recorded Q1: How often do you have a drink containing alcohol? Never 11/13/2023 Q2: How many drinks containi ng alcohol do you have on a typical day when you are drinking? Patient does not drink Q3: How often do you have si x or more drinks on one occasion? Never 11/13/2023 Overall Financial Resource Strain (CARDIA) Answe r Date Recorded How hard is it for you to pa y for the very basics like food, housing, medical care, and heating? Not hard at all 11/13/2023 PHQ-2 Answer Date Recorded Patient Health Questionnaire-2 Score 2 10/30/2023 [facility] Answer Date Recorded Do you feel stress - tense, restless, nervous, or anxious, or unable to sleep at night because your mind is troubled all the time - these days? Only a little 11/13/2023 Exercise Vital Sign Answer Date Recorde d On average, how many days pe r week do you engage in moderate to strenuous exercise (like a brisk walk)? 2 days 11/13/2023 On average, how many minutes do you engage in exercise at this level? 20 min 11/13/2023 Hunger Vital Sign Answer Date Recorded Within the past 12 months, y ou worried that your food would run out before you got the money to buy more. Never true 11/13/19 24 Within the past 12 months, t he food you bought just didn't last and you didn't have money to get more. Never true 11/13/2023 PRAPARE - Transportation Answer Date Re corded In the past 12 months, has l ack of transportation kept you from medical appointments or from getting medications? No 10/24 In the past 12 months, has l ack of transportation kept you from meetings, work, or from getting things needed for daily living? No 11/13/2023 Housing Stability Vital Sign Answer Hugo e Recorded In the last 12 months, was t here a time when you were not able to pay the mortgage or rent on time? No 11/13/2023 In the last 12 months, how many places have you lived? 1 11/13/2023 In the last 12 months, was t here a time when you did not have a steady place to sleep or slept in a mcfp (including now)? No 11/13/2023 Sex and Gender Information Value Date Recorded Sex Assigned at Not on file Legal Sex Male 6:45 PM EDT Gender Identity Not on file Sexual Orientation Not on file documented as of this encounter Plan of Treatment Upcoming Encounters Date Type Department Care Team (Late st Contact Info) Description 05/19/2025 1:40 PM EDT Office Visit [facility] [address] [place] [address] Azul Quezada NP [address] [place] [address] 11/21/2025 4:30 PM EST Office Visit [facility] [address] [place] [address] Azul Quezada NP [address] [place] [phone] documented as of this encounter Procedures Procedure Name Priority Date/Time Associated Diagnosis Comments ELECTROCARDIOGRAM REPORT Routine 024 9:50 AM EDT XR CHEST 1 VIEW Routine 12/07/2023 9:48 AM EDT documented in this encounter Results * Electrocardiogram Report (12/07/2023 9:50 AM EDT) us Herminio Hamlin MD IN CLINIC/BEDSIDE ORDERABLES Final Result * XR chest 1 view (12/07/2023 9:48 AM EDT) Anatomical Region Laterality Modality Chest Radiographic [place] ging Herminio Hamlin MD IMG XR PROCEDURES Final Resul t documented in this encounter Visit Diagnoses Not on filedocumented in this encounter Care Teams Personal Lines Agent Relationship Specialty Start Date End Date Kiok Zurita MD [address] [place] [phone] PCP - General Family Medicine 10/24/23 Azul Quezada NP [address] [place] [address] PCP - ACO Reach 10/29/24 Azul Quezada NP [address] [place] [address] Referring Physician Nurse Practitioner 04/07/23 documented as of this encounter
--- OUTSIDE RECORDS SUMMARY | 2025-03-16 09:03 | XMS_ITS | Encounter Summary ---
Author Organization [facility] Address [address] [facility] [place] [address] Care Team Providers Care Parking Line Painter Name Role Phone Azul Quezada LOG ROLLER Unavailable [phone] Kiko Zurita MD Primary Care Provider [phone] Azul Quezada LOG ROLLER Unavailable [phone] Encounter Details Date Type Department Care Team (Late st Contact Info) Description 08/23/20[address] Abstract [facility] [address] [place] [address] Azul Quezada NP [address] [place] [address] Social History Tobacco Use Types Packs/Day Years [...] often do you attend chur ch or congregational services? Never 11/13/2023 Do you belong to any clubs o r organizations such as anabaptism groups, unions, fraternal or athletic groups, or [...] Answer Date Recorded Patient Health Questionnaire-2 Score 0 02/18/2024 [facility] Questionnaire Answer Date [...] place to sleep or slept in a retirement (including now)? No 11/13/2023 Sex and Gender [...] Visit [facility] [address] [place] [address] Azul Quezada NP [address] [place] [address] 11/21/2025 4:30 PM EST Office Visit [facility] [address] [place] [address] Azul Quezada NP [address] [place] [address] documented as of this encounter Visit Diagnoses Not on filedocumented in this encounter Care Teams Parking Line Painter Relationship Specialty Start Date End Date Kiko Zurita MD [address] [place] [phone] PCP - General Family Medicine 10/24/23 Azul Quezada NP [address] [place] [address] PCP - ACO Reach 10/29/24 Azul Quezada NP [address] [place] [address] Referring Physician Nurse Practitioner 04/07/23 documented as of this encounter
--- OUTSIDE RECORDS SUMMARY | 2025-03-16 09:03 | XMS_ITS | Clinical Summary ---
Author Organization [facility] Address [address] [place] [address] Care Team Providers Care Pipe Jeeper Name Role Phone Azul Quezada DISTRIBUTING CLERK Unavailable [phone] Kiko Zurita MD Primary Care Provider [phone] Azul Quezada DISTRIBUTING CLERK Unavailable [phone] Allergies Active Allergy Reactions Criticality Noted Date Comments Bee Venom Unknown 06/09/2020 Medications albuterol (2.5 MG/3ML) 0.083% nebulizer solution Take 2.5 mg by nebulization 4 (four) times a day as needed for wheezing Active albuterol HFA 90 mcg/act inhaler Inhale 2 puffs every 4 (four) hours if needed for wheezing Active tiotropium (Spiriva Respimat) 2.5 MCG/ACT inhaler Inhale 2 puffs in the morning. Active triamcinolone (Nasacort) 55 MCG/ACT nasal inhaler Administer 2 sprays into each nostril in the morning. Active aspirin 81 MG EC tablet Take 81 mg by mouth in the morning. Active budesonide-formote rol (Symbicort) 160-4.5 MCG/ACT inhaler Inhale 2 puffs in the morning and 2 puffs before bedtime. Rinse mouth with water after use to reduce aftertaste and incidence of candidiasis. Do not swallow.. Active ipratropium-albute rol (Duo-Neb) 0.5-2.5 mg/3 mL nebulizer solution Take 3 mL by nebulization in the morning and 3 mL at noon and 3 mL in the evening and 3 mL before bedtime. 12/01/19 24 Active EPINEPHrine (Epipen) 0.3 MG/0.3ML injection syringe Inject 1 Syringe as directed 1 (one) time 05/30/20 Active Ensifentrine (Ohtuvayre) 3 MG/2.5ML suspension every 12 (twelve) hours 08/17/20 Active ipratropium (Atrovent) 0.02 % nebulizer solution 2.5 mL inhaled via nebulizer every 8 hours As Needed for shortness of breath or wheezing 09/27/19 Active atorvastatin (Lipitor) 40 MG tabletIndications: Mixed hyperlipidemia Take 1 tablet (40 mg) by mouth in the evening 90 tablet 1 12/28/19 25 025 Active FLUoxetine (PROzac) 20 MG capsuleIndications :Depression with anxiety Take 1 capsule (20 mg) by mouth Daily 90 capsule 1 02/16/20 025 Active traZODone (Desyrel) 50 MG tabletIndications: Insomnia, unspecified Take 1 tablet (50 mg) by mouth at bedtime 90 tablet 1 02/16/20 025 Active FLUoxetine (PROzac) 20 MG capsuleIndications :Depression with anxiety Take 1 capsule (20 mg) by mouth Daily 90 capsule 1 08/16/20 025 Discontin ued(Reord er) traZODone (Desyrel) 50 MG tabletIndications: Insomnia, unspecified Take 1 tablet (50 mg) by mouth at bedtime 90 tablet 1 08/16/20 24 025 Discontin ued(Reord er) Active Problems Problem Noted Date 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 Great job Rising PSA level 06/01/2024 Overview (09/07/2024): 02/2022: 0.86 04/2024: 1.91 09/07/24: 1.0 Screening for prostate cancer 05/19/2024 Overview (06/01/2024): PSA: 05/31/24 1.91, 04/29/23 0.94, 03/06/2022 0.86, 05/11/20 0.79 Sessile colonic polyp 05/19/2024 Assessment & Plan (08/16/2024 7:27 AM EST): Has been referred to Gen Surgery for colonoscopy Right hand pain 05/19/2024 Assessment & Plan (05/19/2024 3:10 PM EDT): Offered xray he declines Will just monitor at this time Overweight (BMI 25.0-29.9) 12/15/2023 Encounter for subsequent [facility] wellness visit (AWV) in Medicare patient 11/13/2023 Assessment & Plan (11/16/2024 7:09 AM EST): Reviewed Ht/Wt/BMI Recommend eye exam yearly Recommend dental exams twice a year Balance work/leisure activities Exercises is recommended most days of the week (appropriate as chronic conditions allow) Follow up yearly and prn Assessment & Plan (11/13/2023 11:40 AM EST): Reviewed Ht/Wt/BMI Recommend eye exam yearly Recommend dental exams twice a year Balance work/leisure activities Exercises is recommended most days of the week (appropriate as chronic conditions allow) Follow up yearly and prn 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 Tourette's 10/30/2023 Insomnia 10/30/2023 Assessment & Plan (08/16/2024 7:22 AM EST): Continue with trazodone Multiple pulmonary nodules 10/30/2023 Centrilobular emphysema 10/30/2023 Assessment & Plan (02/15/2025 2:27 PM EDT): Continue with pulmonology Continue with inhaler albuterol, we can try to help with PA Chest CT 09/14 new lung masses Assessment & Plan (11/16/2024 7:05 AM EST): Continue with pulmonology Continue with inhaler Assessment & Plan (08/16/2024 7:25 AM EST): Continue with pulmonology Continue with inhaler Assessment & Plan (05/19/2024 3:09 PM EDT): Continue with pulmonology Assessment & Plan (02/18/2024 1:35 PM EDT): I have asked the pt to contact 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 physicist for management of this exacerbation He states he will call them Assessment & Plan (12/15/2023 10:22 AM EDT): Is on steroid taper over the next few weeks Has fu with pulmonary in about 2-3 weeks No acute distress at this time Assessment & Plan (11/13/2023 11:37 AM EST): Continue with pulmonology and inhalers Needs to quit smoking Assessment & Plan (10/30/2023 11:05 AM EST): Continue with Samsa, as well as current inhalers Vertebral artery occlusion 10/30/2023 Bilateral carotid artery stenosis 10/30/2023 Assessment & Plan (11/16/2024 7:06 AM EST): Cont with vascular Asa, statin therapy Assessment & Plan (08/16/2024 7:25 AM EST): Cont with vascular Assessment & Plan (05/19/2024 3:09 PM EDT): Cont with vascular Assessment & Plan (11/13/2023 11:38 AM EST): Continues with statin, thinners Follows with vascular every 2 years No active symptoms at this time Degenerative cervical disc 10/30/2023 Osteoarthritis 10/30/2023 Calcified lymph nodes 10/30/2023 Vocal cord polyp 10/30/2023 Depression with anxiety 10/30/2023 Assessment & Plan (02/15/2025 7:19 AM EDT): Current med: fluoxetine Assessment & Plan (11/17/2024 8:44 AM EST): Current med: fluoxetine JESSICA 7=6 PHQ 9=4 Assessment & Plan (08/16/2024 7:25 AM EST): Continue with fluoxetine at current dose Fu in 3 months Assessment & Plan (05/19/2024 3:10 PM EDT): Continue with fluoxetine at current dose Fu in 3 months Assessment & Plan (02/18/2024 1:37 PM EDT): Continue with fluoxetine at current dose Fu in 3 months Assessment & Plan (12/15/2023 10:21 AM EDT): Reports increase life stressors, provoking more anxiety, as given vistaril at hospital for this, does help some Will refill this, as well as increase fluoxetine to 20mg daily Fu in 4 weeks Assessment & Plan (11/13/2023 11:39 AM EST): No changes meds or doses Is stable at this time Allergic rhinitis 10/30/2023 Marijuana abuse 10/30/2023 BMI 26.0-26.9,adult 10/30/2023 Stroke 07/23/2020 Mixed hyperlipidemia 07/20/2020 Assessment & Plan (11/13/2023 11:39 AM EST): Continue statin CVA (cerebral vascular accident) 06/10/2020 Assessment & Plan (02/15/2025 7:18 AM EDT): No focal weakness Continues as directed by neurology Assessment & Plan (11/16/2024 7:05 AM EST): No focal weakness Continues as directed by neurology Assessment & Plan (08/16/2024 7:24 AM EST): No focal weakness Continues as directed by neurology Internal carotid artery stenosis, right 06/10/20 20 COVID-19 07/23/2019 Resolved Problems Problem Noted Date Diagnosed Date Resolved Date Colon polyp 05/19/2024 05/19/2024 Papule of skin 11/13/2023 11/13/2023 Influenza 10/30/2023 05/19/2024 Assessment & Plan (10/30/2023 11:06 AM EST): Continues to slowly improve, recommend flu shot pt did not get this Fatigue remains, will see back in office in 2 weeks and remains off work Smoker 07/20/2020 08/16/2024 Assessment & Plan (08/16/2024 7:25 AM EST): The patient has been advised of the risks of continued smoking: stroke, NM, all forms of cancer, lung disease, and . Options for quitting smoking include: cold turkey, hypnosis, acupuncture, nicotine replacement meds (gum, lozenges, and patches), Buproprion, and Varenicline. At this time pt is encouraged to evaluate their goals for wanting to quit smoking, and reach out to provider when ready to start this process Encounters Date Type Department Care Team Description 02/15/2025 1:40 PM EDT Office Visit [facility] [address] [place] [phone] Azul Quezada NP Depression with anxiety (Primary Dx); Cerebrovascular accident (CVA), unspecified mechanism (HCC); Overweight (BMI 25.0-29.9); Centrilobular emphysema (HCC); Insomnia, unspecified 02/15/2025 Bamboo flowsheet [facility] [address] [place] [phone] Azul Quezada NP 12/27/2024 Refill [facility] [address] [place] [phone] Aichholz, Azul, DISTRIBUTING CLERK Mixed hyperlipidemia from Last 3 Months Immunizations Immunization Administration Dates Next Due ABRYSVO - Respiratory syncyt ial virus (RSV), vaccine, bivalent, protein subunit RSV prefusion F, diluent reconstituted, 0.5 mL, PF 08/30/2024 Influenza, High Dose Seasonal, Preservative Free 08/04/2019 Influenza, injectable, MDCK, preservative free, quadrivalent 08/16/2024 Influenza, injectable, quadrivalent, preservativ e free 07/05/2015 Influenza, live, intranasal, quadrivalent 2019 Family History Medical History Relation Name Comments Heart attack Father Asthma Mother Diabetes Mother Hypertension Mother Relation Name Status Comments Father Mother Social History Tobacco Use Types Packs/Day Years Used Date Smoking Tobacco: Former Cigarettes 1 35 0 03/1984 - 03/2019 Smokeless Tobacco: Never Tobacco Cessation:Counseling Given: No Alcohol Use Standard Drinks/Week Comments Yes 1 [...] often do you attend chur ch or adventism services? Never 11/13/2023 Do you belong to any clubs o r organizations such as nondenominational groups, unions, fraternal or athletic groups, or [...] Date Recorded Patient Health Questionnaire-2 Score 2 11/16/2024 [facility] - Occupational Stress Questionnaire Answer Date Recorded [...] place to sleep or slept in a detention (including now)? No 11/13/2023 Sex and Gender Information Value Date Recorded Sex Assigned at Not on file Legal Sex Male 6:45 PM EDT Gender Identity Not on file Sexual Orientation Not on file Last Filed Vital Signs Vital Sign Reading Time Taken Comments Blood Pressure 100/62 02/15/2025 1:54 PM EDT Pulse 88 02/15/2025 1:54 PM EDT Temperature 37.2 C (99 F) 02/15/2025 1:54 PM EDT Respiratory Rate 24 02/15/2025 1:54 PM EDT Oxygen Saturation 92% 02/15/2025 1:54 PM EDT Inhaled Oxygen Concentration - - Weight 94.3 kg (207 lb 12.8 oz) 02/15/2025 1:54 PM EDT Height 185.4 cm (6' 1 ) 08/16/2024 1:20 PM EST Body Mass Index 27.42 08/16/2024 1:20 PM EST Plan of Treatment Upcoming Encounters Date Type Department Care Team (Late st Contact Info) Description 05/19/2025 1:40 PM EDT Office Visit [facility] [address] [place] [address] Azul Quezada NP [address] [place] [phone] 11/21/2025 4:30 PM EST Office Visit [facility] [address] [place] [address] Azul Quezada NP [address] [place] [phone] Health Maintenance Due Date Last Done Comments CT Colonography 1960 FIT-DNA 1960 FIT 1960 FOBT 1960 Lung Cancer Screening Shared Decision Making 1960 Sigmoidoscopy 1960 Medicare Annual Wellness (AWV) 11/16/2025 0 11/16/2024, 11/13/2023, 11/13/2023 Colonoscopy 06/15/2029 06/15/2024 Colorectal Cancer Screening 06/15/2029 Influenza Vaccine Completed 08/16/2024, , 08/04/2019, Additional history exists Insurance MEDICARE Care Teams Pipe Jeeper Relationship Specialty Start Date End Date Kiko Zurita MD [address] [place] [phone] PCP - General Family Medicine 10/24/23 Azul Quezada NP [address] [place] [address] PCP - ACO Reach 10/29/24 Azul Quezada NP [address] [place] [address] Referring Physician Nurse Practitioner 04/07/23
--- OUTSIDE RECORDS SUMMARY | 2025-03-16 09:03 | XMS_ITS | Encounter Summary ---
Author Organization [facility] Address [address] [facility] [place] [address] Care Team Providers Care Package Worker Name Role Phone Azul Quezada CIRCUIT DESIGN ENGINEER Unavailable [phone] Kiko Zurita MD Primary Care Provider [phone] Azul Quezada CIRCUIT DESIGN ENGINEER Unavailable [phone] Encounter Details Date Type Department Care Team (Late st Contact Info) Description 11/24/2023 Orders Only [facility] [address] [place] [address] Azul Quezada, CIRCUIT DESIGN ENGINEER [address] [place] [address] Social History Tobacco Use Types Packs/Day Years [...] often do you attend chur ch or confucianism services? Never 11/13/2023 Do you belong to any clubs o r organizations such as jehovah's witness groups, unions, fraternal or athletic groups, or [...] Recorded Patient Health Questionnaire-2 Score 2 10/30/2023 [facility] - Occupational Stress Questionnaire Answer Date Recorded [...] place to sleep or slept in a skilled nursing (including now)? No 11/13/2023 Sex and Gender [...] Office Visit [facility] [address] [place] [address] Azul Quezada NP [address] [place] [address] 11/21/2025 4:30 PM EST Office Visit [facility] [address] [place] [address] Azul Quezada NP [address] [place] [address] documented as of this encounter Procedures Procedure Name Priority Date/Time Associated Diagnosis Comments ELECTROCARDIOGRAM REPORT Routine 024 3:45 PM EST documented in this encounter Results * Electrocardiogram Report (10/21/2023 3:45 PM EST) us Azul Quezada CIRCUIT DESIGN ENGINEER IN CLINIC/BEDSIDE ORDERABLES Fi nal Result documented in this encounter Visit Diagnoses Not on filedocumented in this encounter Care Teams Package Worker Relationship Specialty Start Date End Date Kiko Zurita MD [address] [place] [address] PCP - General Family Medicine 10/24/23 Azul Quezada NP [address] [place] [address] PCP - ACO Reach 10/29/24 Azul Quezada NP [address] [place] [address] Referring Physician Nurse Practitioner 04/07/23 documented as of this encounter
--- OUTSIDE RECORDS SUMMARY | 2025-03-16 09:03 | XMS_ITS | Encounter Summary ---
Author Organization [facility] Address [address] [place] [address] Care Team Providers Care Pipe Out Worker Name Role Phone Azul Quezada SURGICAL APPLIANCE FITTER Unavailable [phone] Kiko Zurita MD Primary Care Provider [phone] Azul Quezada SURGICAL APPLIANCE FITTER Unavailable [phone] Encounter Details Date Type Department Care Team (Late st Contact Info) Description 09/08/2024 Clinisync Result Encounter [facility] External Department Unsolicited Provider, Generic External Data Social History Tobacco Use Types Packs/Day Years [...] often do you attend chur ch or mu-ism services? Never 11/13/2023 Do you belong to any clubs o r organizations such as buddhism groups, unions, fraternal or athletic groups, or [...] Recorded Patient Health Questionnaire-2 Score 0 02/18/2024 [facility] - Occupational [...] place to sleep or slept in a long-term (including now)? No 11/13/2023 Sex and Gender [...] Office Visit [facility] [address] [place] [address] Azul Quezada NP [address] [place] [address] 11/21/2025 4:30 PM EST Office Visit [facility] [address] [place] [address] Azul Quezada NP [address] [place] [address] documented as of this encounter Procedures Procedure Name Priority Date/Time Associated Diagnosis Comments CT LUNG SCREENING LOW DOSE 09/08/2024 5:49 AM EST documented in this encounter Results * CT LUNG SCREENING LOW DOSE (09/08/2024 5:49 AM EST) Anatomical Region Laterality Modality Other 09/08/2024 5:49 AM EST Narrative 09/08/2024 5:51 AM EST The [address] [address] [address] Scan Report Signed Patient: SAM KRAMER MR#: [id number] : 1960 Acct:[id number] Age/Sex: 64 / M ADM Date: 09/06/24 Loc: CT Attending Dr: Valeriy White D.O. Ordering Physician: Valeriy White D.O. Date of Service: 09/06/24 Procedure(s): CT lung screening low-dose Accession Number(s): [id number] cc: Azul Quezada NP [address] [address] Patient Name: SAM KRAMER MRN: [id number] date: 1960 Sex: M Assigned Patient Location: CT Current Patient Location: Accession/Order Number: [id number] Exam Date: 09/06/2024 14:22 Report Date: 09/08/2024 05:49 At the request of: VALERIY WHITE Procedure: CT lung screening low-dose EXAMINATION: CT lung screening low-dose HISTORY: Nicotine Dependence COMPARISON: CT lung screening 04/29/2023 TECHNIQUE: Axial, Coronal, and Sagittal images were created without the administration of IV contrast material. Dose reduction techniques were achieved by using automated exposure control and/or adjustment of mA and/or kV according to patient size and/or use of iterative reconstruction technique. FINDINGS: LUNGS: New spiculated, wispy opacity within right lower lobe posterior basilar segment, 1.9 cm. There are 3 new irregular/spiculated opacities within posterior left lung base within or near the costophrenic angle; the largest 2 are 1.4 cm and 1.3 cm. Multiple nonspecific small pleural-based nodules and wispy opacities scattered within the lungs; grossly stable. PLEURA: No mass, effusion, or pneumothorax. VASCULATURE: No abnormality. ROSMERY: Calcified lymph nodes suggestive of chronic granulomatous disease. MEDIASTINUM: No mass or pathologic adenopathy. CARDIAC: No enlargement, pericardial thickening, or pericardial effusion. Coronary Artery calcifications: AORTA: No aneurysm or dissection. CHEST WALL: No mass or axillary adenopathy BONES: No bone lesion or fracture. LIMITED ABDOMEN: No suspicious findings. Limited images of the upper abdomen. OTHER: Negative. CT/CT lung screening low-dose IMPRESSION: 1. Lung-RADS Category 4A- Suspicious. Findings for which additional diagnostic testing and/ or tissue sampling is recommended. 3 month LDCT; PET/CT may be used when there is a >= 8 mm solid component. 2. The new findings may represent infectious infiltrates. Follow-up CT chest in 3 months is recommended. Electronically authenticated by: DEVEN BOOTH Date: 09/08/2024 05:49 Dictated By: Deven Booth M.D. Signed By: 09/08/2451 DD/ TD/TT: Intelligence Support Officer: Procedure Note Radiology, Radiologist, MD - 09/08/2024 [place] [address] CT Scan Report Signed Patient: SAM KRAMER KMR#: [id number] : 1960Acct:[id number] Age/Sex: 64 / MADM Date: 09/06/24 Loc: CT Attending Dr: Valeriy White D.O. Ordering Physician: Valeriy White D.O. Date of Service: 09/06/24 Procedure(s): CT lung screening low-dose Accession Number(s): [id number] cc: Azul Quezada NP The [place] [address] Patient Name: SAM KRAMER MRN: [facility]:[id number] date: 1960 Sex: M Assigned Patient Location: CT Current Patient Location: Accession/Order Number: [id number] Exam Date: 09/06/2024 14:22 Report Date: 09/08/2024 05:49 At the request of: VALERIY WHITE Procedure: CT lung screening low-dose EXAMINATION: CT lung screening low-dose HISTORY: Nicotine Dependence COMPARISON: CT lung screening 04/29/2023 TECHNIQUE: Axial, Coronal, and Sagittal images were created without the administration of IV contrast material. Dose reduction techniques were achieved by using automated exposure control and/or adjustment of mA and/or kV according to patient size and/or use of iterative reconstruction technique. FINDINGS: LUNGS: New spiculated, wispy opacity within right lower lobe posteriorbasilar segment, 1.9 cm. There are 3 new irregular/spiculated opacities within posterior left lung base within or near the costophrenic angle; thelargest 2 are 1.4 cm and 1.3 cm. Multiple nonspecific small pleural-based nodulesand wispy opacities scattered within the lungs; grossly stable. PLEURA: No mass, effusion, or pneumothorax. VASCULATURE: No abnormality. ROSMERY: Calcified lymph nodes suggestive of chronic granulomatous disease. MEDIASTINUM: No mass or pathologic adenopathy. CARDIAC: No enlargement, pericardial thickening, or pericardial effusion. Coronary Artery calcifications: AORTA: No aneurysm or dissection. CHEST WALL: No mass or axillary adenopathy BONES: No bone lesion or fracture. LIMITED ABDOMEN: No suspicious findings. Limited images of the upperabdomen. OTHER: Negative. CT/CT lung screening low-dose IMPRESSION: 1. Lung-RADS Category 4A- Suspicious. Findings for which additionaldiagnostic testing and/ or tissue sampling is recommended. 3 month LDCT; PET/CT maybe used when there is a >= 8 mm solid component. 2. The new findings may represent infectious infiltrates. Follow-up CTchest in 3 months is recommended. Electronically authenticated by: DEVEN BOOTH Date: 09/08/2024 05:49 Dictated By: Deven Booth M.D. Signed By:09/08/24 0551 DD/ 0549 TD/TT: Intelligence Support Officer: Generic External Data Provider [facility] Final Result documented in this encounter Visit Diagnoses Not on filedocumented in this encounter Care Teams Pipe Out Worker Relationship Specialty Start Date End Date Kiko Zurita MD [address] [place] [address] PCP - General Family Medicine 10/24/23 Azul Quezada NP [address] [place] [address] PCP - ACO Reach 10/29/24 Azul Quezada NP [address] [place] [address] Referring Physician Nurse Practitioner 04/07/23 documented as of this encounter
--- OUTSIDE RECORDS SUMMARY | 2025-03-16 09:03 | XMS_ITS | Encounter Summary ---
Author Organization [facility] Address [address] [facility] [place] [address] Care Team Providers Care Director Home Name Role Phone Kiko Zurita MD Primary Care Provider Azul Quezada TRACK SURFACING MACHINE OPERATOR Unavailable [phone] Kiko Zurita MD Primary Care Provider [phone] Azul Quezada TRACK SURFACING MACHINE OPERATOR Unavailable [phone] Encounter Details Date Type Department Care Team (Late st Contact Info) Description 10/08/2023 Orders Only [facility] [address] [place] [address] Herminio Hamlin MD [address] [place] [address] Social History Tobacco Use Types Packs/Day Years [...] 1:40 PM EDT Office Visit [facility] [address] [place] [address] Azul Quezada NP [address] [place] [address] 11/21/2025 4:30 PM EST Office Visit [facility] [address] [place] [address] Azul Quezada NP [address] [place] [address] documented as of this encounter Procedures Procedure Name Priority Date/Time Associated Diagnosis Comments XR CHEST 1 VIEW Routine 09/20/2023 12:03 PM EST documented in this encounter Results * XR chest 1 view (09/20/2023 12:03 PM EST) Anatomical Region Laterality Modality Chest Radiographic [place] ging us Herminio Hamlin MD IMG XR PROCEDURES Final Resul t documented in this encounter Visit Diagnoses Not on filedocumented in this encounter Care Teams Director Home Relationship Specialty Start Date End Date Kiko Zurita MD PCP - General Family Medicine 04/07/23 10/23/23 Kiko Zurita MD [address] [place] [address] PCP - General Family Medicine 10/24/23 Azul Quezada NP [address] [place] [address] PCP - ACO Reach 10/29/24 Azul Quezada NP [address] [place] [address] Referring Physician Nurse Practitioner 04/07/23 documented as of this encounter
--- OUTSIDE RECORDS SUMMARY | 2025-03-16 09:03 | XMS_ITS | Encounter Summary ---
Author Organization [facility] Address [address] [facility] [place] [address] Care Team Providers Care Slurry Tank Tender Name Role Phone Azul Quezada TROLLEY WIRE INSTALLER Unavailable [phone] Kiko Zurita MD Primary Care Provider Azul Quezada TROLLEY WIRE INSTALLER Unavailable [phone] Encounter Details Date Type Department Care Team (Late st Contact Info) Description 10/28/2023 [facility] [address] [place] [address] Azul Quezada, TROLLEY WIRE INSTALLER [address] [place] [address] Social History Tobacco Use Types Packs/Day Years Used Date Smoking Tobacco: Former Cigarettes 1 35 0 03/1984 - 03/2019 Tobacco Cessation:Counseling Given: Not Answered Alcohol Use Standard Drinks/Week Comments Yes 1 (1 standard drink = 0.6 oz pure alcohol) coffee more than 4 cups per day PHQ-2 Answer Date Recorded Patient Health Questionnaire-2 Score 2 10/30/2023 Sex and Gender Information Value Date Recorded Sex Assigned at Not on file Legal Sex Male 6:45 PM EDT Gender Identity Not on file Sexual Orientation Not on file documented as of this encounter Functional Status * Over the past 2 weeks, how often have you been bothered by any of the following problems? Question Answer Date of Assessment Author Little interest or pleasure in doing things Several days 10/30/2023 10:09 AM NAOMI MOYER Feeling down, depressed, or hopeless Several days 10/30/2023 10:09 AM NAOMI MOYER Patient Health Questionnaire-2 Score 2 10/30/2023 10:09 AM LOVE MOYER * If you checked off any problems on this questionnaire so far, Question Answer Date of Assessment Author How difficult have these problems made it for you to do your work, take care of things at home, or get along with other people? Not difficult at all 10/30/2023 10:09 AM SEBASTIEN MOYER documented as of this encounter Plan of Treatment Upcoming Encounters Date Type Department Care Team (Late st Contact Info) Description 05/19/2025 1:40 PM EDT Office Visit [facility] [address] [place] [address] Azul Quezada, ORACIO [address] [place] [address] 11/21/2025 4:30 PM EST Office Visit [facility] [address] [place] [address] Azul Quezada NP [address] [place] [address] documented as of this encounter Visit Diagnoses Not on filedocumented in this encounter Care Teams Slurry Tank Tender Relationship Specialty Start Date End Date Kiko Zurita MD [address] [place] [address] PCP - General Family Medicine 10/24/23 Azul Quezada NP [address] [place] [address] PCP - ACO Reach 10/29/24 Azul Quezada NP [address] [place] [address] Referring Physician Nurse Practitioner 04/07/23 documented as of this encounter
--- OUTSIDE RECORDS SUMMARY | 2025-03-16 09:03 | XMS_ITS | Encounter Summary ---
Author Organization [facility] Address [address] [facility] [place] [address] Care Team Providers Care Fashion Coordinator Name Role Phone Azul Quezada INSEAM LEVELER Unavailable [phone] Kiko Zurita MD Primary Care Provider [phone] Azul Quezada INSEAM LEVELER Unavailable [phone] Encounter Details Date Type Department Care Team ([facility] st Contact Info) Description 09/27/2024 Orders Only [facility] [address] [place] [address] Baltazar Gil MD [address] [facility] Social History Tobacco Use Types Packs/Day Years [...] often do you attend chur ch or baptist services? Never 11/13/2023 Do you belong to any clubs o r organizations such as faith groups, unions, fraternal or athletic groups, or [...] Recorded Patient Health Questionnaire-2 Score 0 02/18/2024 [facility] Occupat ional [facility] - Occupational Stress Questionnaire Answer Date [...] place to sleep or slept in a prison (including now)? No 11/13/2023 Sex and Gender [...] Visit [facility] [address] [place] [address] Azul Quezada NP [address] [place] [address] 11/21/2025 4:30 PM EST Office Visit [facility] [address] [place] [address] Azul Quezada NP [address] [place] [address] documented as of this encounter Procedures Procedure Name Priority Date/Time Associated Diagnosis Comments XR CHEST 1 VIEW Routine 09/27/2024 10:00 AM EST documented in this encounter Results * XR chest 1 view (09/27/2024 10:00 AM EST) Anatomical Region Laterality Modality Chest Radiographic [place] ging us Baltazar Gil MD IMG XR PROCEDURES Final Result documented in this encounter Visit Diagnoses Not on filedocumented in this encounter Care Teams Fashion Coordinator Relationship Specialty Start Date End Date Kiko Zurita MD [address] [place] [address] PCP - General Family Medicine 10/24/23 Azul Quezada NP [address] [place] [address] PCP - ACO Reach 10/29/24 Azul Quezada NP [address] [place] [address] Referring Physician Nurse Practitioner 04/07/23 documented as of this encounter
--- OUTSIDE RECORDS SUMMARY | 2025-03-16 09:03 | XMS_ITS | Encounter Summary ---
Author Organization [facility] Address [address] [facility] [place] [address] Care Team Providers Care Global Compensation Manager Name Role Phone Azul Quezada LODGE ATTENDANT Unavailable [phone] Kiko Zurita MD Primary Care Provider [phone] Azul Quezada LODGE ATTENDANT Unavailable [phone] Encounter Details Date Type Department Care Team (Late st Contact Info) Description 12/01/2023 Orders Only [facility] [address] [place] [address] Azul Quezada, LODGE ATTENDANT [address] [place] [address] Social History Tobacco Use Types Packs/Day Years [...] often do you attend chur ch or jehovah's witness services? Never 11/13/2023 Do you belong to any clubs o r organizations such as lutheran groups, unions, fraternal or athletic groups, or [...] Recorded Patient Health Questionnaire-2 Score 2 10/30/2023 [facility] of Occupat ional [facility] - Occupational Stress Questionnaire Answer Date Recorded [...] place to sleep or slept in a chcf (including now)? No 11/13/2023 Sex and Gender Information Value Date Recorded Sex Assigned at Not on file Legal Sex Male 6:45 PM EDT Gender Identity Not on file Sexual Orientation Not on file documented as of this encounter Plan of Treatment Upcoming Encounters Date Type Department Care Team (Late st Contact Info) Description 05/19/2025 1:40 PM EDT Office Visit [facility] [address] [place] [address] Azul Quezada NP [address] [place] [address] 11/21/2025 4:30 PM EST Office Visit [facility] [address] [place] [address] Azul Quezada NP [address] [place] [address] documented as of this encounter Procedures Procedure Name Priority Date/Time Associated Diagnosis Comments XR CHEST 1 VIEW Routine 11/30/2023 11:11 AM EDT ELECTROCARDIOGRAM REPORT Routine 024 10:55 AM EDT documented in this encounter Results * XR chest 1 view (11/30/2023 11:11 AM EDT) Anatomical Region Laterality Modality Chest Radiographic [place] ging us Azul Quezada LODGE ATTENDANT IMG XR PROCEDURES Final Result * Electrocardiogram Report (11/30/2023 10:55 AM EDT) us Azul Quezada LODGE ATTENDANT IN CLINIC/BEDSIDE ORDERABLES Fi nal Result documented in this encounter Visit Diagnoses Not on filedocumented in this encounter Care Teams Global Compensation Manager Relationship Specialty Start Date End Date Kiko Zurita MD [address] [place] [address] PCP - General Family Medicine 10/24/23 Azul Quezada NP [address] [place] [address] PCP - ACO Reach 10/29/24 Azul Quezada NP [address] [place] [address] Referring Physician Nurse Practitioner 04/07/23 documented as of this encounter
--- NOTE | 2025-03-16 09:05 | ECG_ITS ---
The [facility] Test Date: 2025-03-16 Pat Name: JUANITA KRAMER Department: Room: - Gender: Male Manager Local: : 1960 Requested By: [id number] Order Number: [id number] Reading MD: WALT AMAYA M.D. Measurements Intervals [place] Rate: 92 P: 80 OK: 140 QRS: 79 QRSD: 88 T: 77 QT: 338 QTc: 388 Interpretive Statements 1100 Sinus rhythm [address] depression 0102 ARTIFACT PRESENT 9150 abnormal ECG Compared to ECG 12/07/2023 13:29:43 No significant changes Electronically Signed On 03-16-2025 19:59:47 EDT by WALT AMAYA M.D.
--- NOTE | 2025-03-16 09:05 | XR_ITS ---
The [place] [id number] Patient Name: JUANITA KRAMER MRN: [id number] date: 1960 Sex: M Assigned Patient Location: ED.MAIN Current Patient Location: ED.MAIN Accession/Order Number: [id number] Exam Date: 03/16/2025 09:58 Report Date: 03/16/2025 10:01 At the request of: ANG EDWARDS MD Procedure: XR chest 1V PORTABLE AP ERECT CHEST 0922 hours CLINICAL HISTORY: Shortness of breath today. Prior history of tobacco use. COMPARISON: Chest CT 12/07/2024 and chest x-ray 11/16/2024 The heart is within normal limits. There is no vascular congestion. The lungs show mild hyperinflation. Granulomatous changes are visualized on the right. There is no consolidation. There is no effusion or pneumothorax. The osseous structures are intact. XR/XR chest 1V IMPRESSION: OBSTRUCTIVE LUNG DISEASE WITH GRANULOMATOUS CHANGES. NO ACUTE FINDINGS Impression dictated by: Yuli Dunham M.D. 03/16/2025 10:01 AM Dictation Location: [place] [address] Electronically authenticated by: [id number] Y Date: 03/16/2025 10:01
--- NOTE | 2025-03-16 09:06 | ED_ITS ---
HPI HPI - General Adult General Chief complaint: Shortness of Breath/Dyspnea Stated complaint: sob Time Seen by Provider: 03/16/25 08:59 Source: patient Mode of arrival: Wheelchair Limitations: no limitations History of Present Illness HPI narrative: 64-year-old male presented to the emergency department for difficulty breathing. He has a history of COPD. He used his inhaler but it did not help and his symptoms began last night. It got worse when he went to work today. He has not had a fever or productive cough. Related Data Home Medications ?Medication ?Instructions ?Recorded ?Confirmed albuterol sulfate 90 mcg/actuation 2 inh inhalation Q4 H PRN shortness 09/21/23 06/15/24 aerosol inhaler of breath or wheezing aspirin 81 mg tablet,delayed 81 mg PO DAILY 09/21/23 0 06/15/24 release atorvastatin 40 mg tablet 40 mg PO DAILY 09/21/2305/24 budesonide-formoterol HFA 160 2 inh inhalation Q12H 06/15/24 mcg-4.5 mcg/actuation aerosol inhaler (Symbicort) fluoxetine 10 mg capsule 20 mg PO DAILY 09/21/2305/24 tiotropium bromide 2.5 2 puff inhalation Q24H 09/2106/15/24 mcg/actuation mist for inhalation (Spiriva Respimat) trazodone 50 mg tablet 50 mg PO BEDTIME 09/21/23 Previous Rx's ?Medication ?Instructions ?Recorded ipratropium 0.5 mg-albuterol 3 mg 3 ml inhalation Q6H PRN shortness 12/01/23 (2.5 mg base)/3 mL nebulization of breath or wheezing #90 mL soln diphenhydramine HCl 25 mg capsule 25 mg PO TID PRN all ergic reaction 05/30/24 (Benadryl) #10 caps epinephrine 0.3 mg/0.3 mL 0.3 mg (0.3 mL) IM ONCE PRN 05/30/24 injection, auto-injector (EpiPen) allergic reaction #2 ea famotidine 20 mg tablet (Pepcid) 20 mg PO BID #10 tabs 05/30/24 albuterol sulfate 2.5 mg/3 mL 2.5 mg (3 mL) inhalation Q6H PRN 01/05/25 (0.083 %) solution for nebulization shortness of breat h or wheezing #75 mL doxycycline hyclate 100 mg capsule 100 mg PO BID 7 day s #14 caps 09/26/24 ipratropium bromide 0.02 % 2.5 ml inhalation Q8H PRN 0 09/26/24 solution for inhalation shortness of breath or wheez ing #62.5 mL prednisone 20 mg tablet 40 mg (2 x 20 mg) PO DAILY 4 days 09/26/24 #8 tabs azithromycin 250 mg tablet See Rx Instructions PO .COM PLEX #6 03/16/25 (Zithromax Z-Igor) tabs prednisone 10 mg tablet See Rx Instructions .Route 0 03/16/25 .COMPLEX #30 tabs Allergies Allergy/AdvReac Type Severity Reaction Status Date / Time bee venom protein (honey bee) Allergy Severe Anaphylaxis Verified 03/16/25 09:04 Opioid HPI Opioid Management Most Recent Opioid Data: Last Pain Scale 0 10/23/23, 04:14 Last ORT Total Score 6 12/07/23, 16:54 Last ORT Risk Category Moderate Risk 12/07/23, 16:54 Review of Systems ROS Narrative A ten point review of systems is negative except as noted above. 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 - Polyp of vocal cord and larynx (ICD-10) Vertebral artery occlusion ?I65.09 - Occlusion and stenosis of unspecified vertebral artery (ICD-10) Tourette's ?F95.2 - Tourette's disorder (ICD-10) Testicle lump ?N50.89 - Other specified disorders of the male genital organs (ICD-10) Rheumatic fever ?I00 - Rheumatic fever without heart involvement (ICD-10) Pigmented skin lesion of uncertain nature ?L81.9 - Disorder of pigmentation, unspecified (ICD-10) Papule of skin ?R23.8 - Other skin changes (ICD-10) Osteoarthritis ?M19.90 - Unspecified osteoarthritis, unspecified site (ICD-10) Neck mass ?R22.1 - Localized swelling, mass and lump, neck (ICD-10) Multiple pulmonary nodules ?R91.8 - Other nonspecific abnormal finding of lung field (ICD-10) Marijuana abuse ?F12.10 - Cannabis abuse, uncomplicated (ICD-10) Insomnia ?G47.00 - Insomnia, unspecified (ICD-10) Degenerative cervical disc ?M50.30 - Other cervical disc degeneration, unspecified cervical region (ICD- 10) CVA (cerebral vascular accident) ?I63.9 - Cerebral infarction, unspecified (ICD-10) COVID-19 ?U07.1 - COVID-19 (ICD-10) Centrilobular emphysema ?J43.2 - Centrilobular emphysema (ICD-10) Calcified lymph nodes ?I89.8 - Other specified noninfective disorders of lymphatic vessels and lymph nodes (ICD-10) Bilateral carotid artery stenosis ?I65.23 - Occlusion and stenosis of bilateral carotid arteries (ICD-10) Allergic rhinitis ?J30.9 - Allergic rhinitis, unspecified (ICD-10) Alcohol abuse ?F10.10 - Alcohol abuse, uncomplicated (ICD-10) Anxiety ?F41.9 - Anxiety disorder, unspecified (ICD-10) Cerebrovascular disease ?I67.9 - Cerebrovascular disease, unspecified (ICD-10) COPD (chronic obstructive pulmonary disease) ?J44.9 - Chronic obstructive pulmonary disease, unspecified (ICD-10) Depression, unspecified ?F32.A - Depression, unspecified (ICD-10) Dyslipidemia ?E78.5 - Hyperlipidemia, unspecified (ICD-10) 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 - Other diseases of vocal cords (ICD-10) Surgical History (Updated 06/08/24 @ 11:14 by Lidia Fontanez) History of vocal cord polypectomy ?Z98.890 - Other specified postprocedural states (ICD-10) H/O adenoidectomy ?Z90.89 - Acquired absence of other organs (ICD-10) History of tonsillectomy ?Z90.89 - Acquired absence of other organs (ICD-10) Family History (Updated 06/15/24 @ 06:35 by Cira Palacio RN) Mother Family history of CHF (congestive heart failure) Family history of COPD (chronic obstructive pulmonary disease) Hypertension Sister Family history of diabetes mellitus Father Family history of cancer Other Family history of myocardial infarction Social History Within the past year, how often did you have a drink containing alcohol: never Within the past year, how often did you have six or more drinks on one occasion: never Score interpretation: A score less than 4 is consistent with normal alcohol consumption. Smoking status: Current every day smoker Second hand tobacco smoke exposure: No Non-prescribed substance use: cannabis (any form) Known occupational exposures/hazards: No Highest level of school completed/degree received: high school graduate Are you now , , , , never or living with a partner: living with partner In a typical week, how many times do you talk on the telephone with family, friends, or neighbors: 3 or more times per week How often do you get together with friends or relatives: 3 or more times per week How often do you attend latter day or jainism services: 1-3 times per year Do you belong to any clubs or organizations such as latter day groups unions, [employer] or athletic groups, or school groups: no Total score: 2 Score interpretation: A score of greater than or equal to 2 indicates the lowest level of social isolation. Little interest or pleasure in doing things: not at all Feeling down, depressed, or hopeless: not at all Feel stressed/tense/nervous/anxious/difficulty sleeping: not at all Due to disability, difficulty making decisions: No Do you think of yourself as: straight/heterosexual Gender Identity: male Exam Narrative Exam Narrative: Nurses note and vital signs reviewed and patient is not hypoxic. General: The patient appears dyspneic. He is able to speak in full sentences. Skin: Warm, dry, no pallor noted. There is no rash noted. Head: Normocephalic, atraumatic Eye: Normal conjunctiva, no drainage Ears, Nose, Mouth, and Throat: oral mucosa is moist. Nares patent. Cardiovascular: Regular Rate and Rhythm Respiratory: Bilateral rhonchi throughout Back: non-tender GI: Soft and nontender Musculoskeletal: The patient has no evidence of calf tenderness, no pitting edema, symmetrical pulses noted bilaterally Neurological: A&O, normal speech Psychiatric: Cooperative Constitutional Vital Signs, click to edit/add: Last Vital Signs Temp 98 F 06 09:00 Pulse 102 H 03/16/25 09:00 Resp 32 H 03/16/25 09:00 BP 145/92 H 03/16/25 09:00 Pulse Ox 97 03/16/25 09:15 O2 Del Method Nasal Cannula 03/16/25 09:15 O2 Flow Rate 2 03/16/25 09:15 Course Vital Signs Vital signs: Vital Signs Temperature 98 F 03/16/25 09:00 Pulse Rate 102 H 03/16/25 09:00 Respiratory Rate 32 H 03/16/25 09:00 Blood Pressure 145/92 H 03/16/25 09:00 Pulse Oximetry 90 L 03/16/25 09:00 Oxygen Delivery Method Room Air 03/16/25 09:00 Temperature 98 F 03/16/25 09:00 Pulse Rate 102 H 03/16/25 09:00 Respiratory Rate 32 H 03/16/25 09:00 Blood Pressure 145/92 H 03/16/25 09:00 Pulse Oximetry 97 03/16/25 09:15 Oxygen Delivery Method Nasal Cannula 03/16/25 09:15 Oxygen Delivery Flow Rate 2 03/16/25 09:15 Medical Decision Making MDM Narrative Medical decision making narrative: The patient feels much better after being given albuterol treatment and IV Solu- Medrol. He is discharged home on prednisone and Zithromax. He has a refill of his rescue inhaler waiting for him at his pharmacy. He was given a work note for today as well. Treatment diagnosis and follow-up were discussed with the patient. Differential Diagnosis Differential Diagnosis: COPD exacerbation, pneumonia, COVID Lab Data Lab results reviewed: Yes I reviewed the patient's lab results Labs: Lab Results 03/16/25 03/16/25 Range/Units 09:07 09:29 WBC 9.9 (4.0-11.0) 10^3/uL RBC 4.86 (4.70-6.10) 10^6/uL Hgb 14.7 (14.0-18.0) g/dL Hct 44.6 (42.0-54.0) % MCV 91.8 (80.0-94.0) fL MCH 30.2 (25.9-34.0) pg MCHC 33.0 (29.9-35.2) g/dL RDW 12.6 (11.0-15.0) % Plt Count 358 (150-450) 10^3/uL MPV 9.3 L (9.5-13.5) fL Neut % (Auto) 79.6 H (43.0-75.0) % Lymph % (Auto) 10.2 L (20.5-60.0) % Dougherty % (Auto) 8.3 (1.7-12.0) % Eos % (Auto) 0.3 L (0.9-7.0) % Baso % (Auto) 1.0 (0.2-2.0) % Neut # (Auto) 7.9 H (1.4-6.5) 10^3/uL Lymph # (Auto) 1.0 L (1.2-3.8) 10^3/uL Dougherty # (Auto) 0.8 (0.3-0.8) 10^3/uL Eos # (Auto) 0.0 (0.0-0.7) 10^3/uL Baso # (Auto) 0.1 (0.0-0.1) 10^3/uL Abs Immat Gran (auto) 0.06 H (0.00-0.03) 10^3/uL Imm/Tot Granulo (auto) 0.6 H (0.0-0.5) % Sodium 138 (136-145) mmol/L Potassium 4.1 (3.5-5.1) mmol/L Chloride 101 (98-107) mmol/L Carbon Dioxide 30.8 (21.0-32.0) mmol/L Anion Gap 10.3 BUN 19.0 H (7.0-18.0) mg/dL Creatinine 0.91 (0.70-1.30) mg/dL Est GFR ( Amer) >60 (>=60 mL/min/1.73m^2) Est GFR (Non-Af Amer) >60 (>=60 mL/min/1.73m^2) BUN/Creatinine Ratio 20.9 Glucose 161 H (74-106) mg/dL Calcium 8.8 (8.5-10.1) mg/dL SARS-CoV-2 Ag (CV2AG) Negative (NEGATIVE) Imaging Data Chest x-ray: Radiologist's impression: ITS Impressions Chest X-Ray 03/16/25 09:05 IMPRESSION: OBSTRUCTIVE LUNG DISEASE WITH GRANULOMATOUS CHANGES. NO ACUTE FINDINGS Impression dictated by: Yuli Dunham M.D. 03/16/2025 10:01 AM Dictation Location: [place] [address] Electronically authenticated by: [id number] Y Date: 03/16/2025 10:01 ECG Data Attestation: I personally reviewed and interpreted this ECG as follows: (EKG on my interpretation shows sinus rhythm with artifact) Discharge Plan Discharge Chief Complaint: Shortness of Breath/Dyspnea Clinical Impression: Acute exacerbation of chronic obstructive pulmonary disease Patient Disposition: Home, Self-Care Time of Disposition Decision: 10:11 Condition: Good Mode of Transportation: Private Vehicle Prescriptions / Home Meds: New prednisone 10 mg tablet See Rx Instructions .ROUTE .COMPLEX Qty: 30 0RF Rx Instructions: 4 by mouth daily for three days then 3 by mouth daily for three days then 2 by mouth daily for three days then 1 by mouth daily for three days azithromycin [Zithromax Z-Igor] 250 mg tablet See Rx Instructions .ROUTE .COMPLEX Qty: 6 0RF Rx Instructions: For 250 mg dose pack: take 500 mg today (day 1), then 250 mg for 4 days (days 2-5) No Action atorvastatin 40 mg tablet 40 mg PO DAILY trazodone 50 mg tablet 50 mg PO BEDTIME aspirin 81 mg tablet,delayed release (DR/EC) 81 mg PO DAILY fluoxetine 10 mg capsule 20 mg PO DAILY albuterol sulfate 90 mcg/actuation HFA aerosol inhaler 2 inh INHALATION Q4H PRN (Reason: shortness of breath or wheezing) budesonide-formoterol [Symbicort] 160-4.5 mcg/actuation HFA aerosol inhaler 2 inh INHALATION Q12H Spiriva Respimat 2.5 mcg/actuation mist 2 puff INHALATION Q24H ipratropium-albuterol 0.5 mg-3 mg(2.5 mg base)/3 mL solution for nebulization 3 ml inhalation Q6H PRN (Reason: shortness of breath or wheezing) Qty: 90 0RF famotidine [Pepcid] 20 mg tablet 20 mg PO BID Qty: 10 0RF diphenhydramine HCl [Benadryl] 25 mg capsule 25 mg PO TID PRN (Reason: allergic reaction) Qty: 10 0RF epinephrine [EpiPen] 0.3 mg/0.3 mL auto-injector 0.3 mg IM ONCE PRN (Reason: allergic reaction) Qty: 2 0RF Rx Instructions: for 2 doses doxycycline hyclate 100 mg capsule 100 mg PO BID 7 Days Qty: 14 0RF prednisone 20 mg tablet 40 mg PO DAILY 4 Days Qty: 8 0RF albuterol sulfate 2.5 mg /3 mL (0.083 %) solution for nebulization 2.5 mg inhalation Q6H PRN (Reason: shortness of breath or wheezing) Qty: 75 0RF ipratropium bromide 0.02 % solution 2.5 ml inhalation Q8H PRN (Reason: shortness of breath or wheezing) Qty: 62.5 0RF Print Language: Upper Sorbian Instructions: COPD (Chronic Obstructive Pulmonary Disease) (ED) Referrals: Azul Quezada NP [Primary Care Provider, Family Practice] - 1 week
[2025-03-16] MEDS: METHYLPREDNISOLONE SOD SUCC PF 125 MG/2 ML VIAL IVP (09:12)
[2025-03-16] MEDS: IPRATROPIUM/ALBUTEROL SULFATE 3 ML AMPUL.NEB IH (09:13)
[2025-03-16 09:15] VITALS: O2SAT 97
[2025-03-16 09:17] VITALS: PULSE 104
[2025-03-16 09:18] LABS: Basophils Absolute Auto 0.1 10^3/uL (0.0-0.1); Eosinophils Percent Auto 0.3 % (0.9-7.0); Hematocrit 44.6 % (42.0-54.0); Hemoglobin 14.7 g/dL (14.0-18.0); Immature Granulocytes Abs Auto 0.06 10^3/uL (0.00-0.03); Immature Granulocytes Pct Auto 0.6 % (0.0-0.5); Lymphocytes Percent Auto 10.2 % (20.5-60.0); Mean Corpuscular Hemoglobin 30.2 pg (25.9-34.0); Mean Corpuscular Volume 91.8 fL (80.0-94.0); Mean Platelet Volume 9.3 fL (9.5-13.5); Monocytes Absolute Auto 0.8 10^3/uL (0.3-0.8); Monocytes Percent Auto 8.3 % (1.7-12.0); Neutrophils Absolute Auto 7.9 10^3/uL (1.4-6.5); Neutrophils Percent Auto 79.6 % (43.0-75.0); Platelet Count 358 10^3/uL (150-450); Red Blood Count 4.86 10^6/uL (4.70-6.10); Red Cell Distribution Width 12.6 % (11.0-15.0); White Blood Count 9.9 10^3/uL (4.0-11.0)
[2025-03-16 09:29] LABS: Anion Gap 10.3; BUN Creatinine Ratio 20.9; Calcium 8.8 mg/dL (8.5-10.1); Carbon Dioxide 30.8 mmol/L (21.0-32.0); Chloride 101 mmol/L (98-107); Estimated GFR (African America >60 (>=60 mL/min/1.73m^2); Estimated GFR (Non-African Ame >60 (>=60 mL/min/1.73m^2); Glucose 161 mg/dL (74-106); Potassium 4.1 mmol/L (3.5-5.1); Sodium 138 mmol/L (136-145)
[2025-03-16 09:47] LABS: Internal Control Within Normal Limits; SARS-CoV-2 Ag NEGATIVE (NEGATIVE)
== END 2025-03-16 10:26 | disposition home or self-care (01) ==
PROVIDERS: Emergency Provider Emergency Medicine; PCP Nurse Practitioner
DX: J44.1 Chronic obstructive pulmonary disease with (acute) exacerbation (principal); R06.02 Shortness of breath; F17.200 Nicotine dependence, unspecified, uncomplicated
CPT/HCPCS: 36415; 71045; 80048; 85025; 87811; 93005; 94640; 96374; 99285; J2919

== ENCOUNTER 2025-05-09 02:28 | Inpatient (IN) | payer MEDICARE, SELFPAY ==
--- OUTSIDE RECORDS SUMMARY | 2024-12-21 06:17 | XMS_ITS ---
Author Organization [facility] in [place] Address [address] [place] [address] Care Team Providers Care Graphics Artist Name Role Phone Leidyulysses ZANE Azul Primary Care Provider Unavail able Valeriy Boo Unavailable [phone] REASON FOR VISIT Work Restrictions/Retire Encounters Encounter Location Date Provider Diagnosis Pulmonary Medicine [place] [address] [place] [address] 12/21/2024 Valeriy Boo Plan Of Treatment No Information Progress Notes * Sam KRAMER KDOB:[birth year] (64 yo M)Acc No.[id number]:12/21/2024 Patient: Scott PrimoCHARANSam :1960 A ge:64 Y S ex:Male Address:[address] [place] [place], [address] * true * Date: Generated for Printi ng/Faxing/eTransmitting on: 0 05/09/2025 02:46 AM EDT
--- OUTSIDE RECORDS SUMMARY | 2025-03-10 09:00 | XMS_ITS ---
Author Organization The [facility] in [place] Address [address] [place] [address] Care Team Providers Care Video Game Repair Technician Name Role Phone Azul Quezada CNP Primary Care Provider Unavail able Valeriy Boo Unavailable [phone] REASON FOR VISIT 3m F/U - COPD Encounters Encounter Location Date Provider Diagnosis Pulmonary Medicine [place] [address] [place] [address] 03/10/2025 Valeriy Boo Plan Of Treatment No Information Progress Notes * KRAMERSam FARRAR KDOB:[birth year] (64 yo M)Acc No.[id number]:03/10/2025 UNLOCKED PROGRESS NOTE Follow Up Patient: Sam SPEAR Provider: Ale Boo DO :1960 A ge:64 Y S ex:Male Date:03/10/2025 Address:[address] [place] [address] [place], [id number] Pcp:Azul Quezada CNP Subjective: * Chief Complaints: * 1 . 3m F/U - COPD. * Medical History: Objective: * Vitals: Assessment: Plan: * Treatment: * * Electronic signature of Yamilet Boo DO on 05/09/2025 at 02:47 AM EDT Sign off status: Pending Visit Status: R /S By O/P (Rescheduled by Office/Provider) * Provider: Ale Boo DO Date: 0 03/10/2025 Generated for Yoana lazcano/Stanford/Pattsmitting on: 0 05/09/2025 02:47 AM EDT
--- OUTSIDE RECORDS SUMMARY | 2025-03-14 09:30 | XMS_ITS ---
Author Organization The [facility] in [place] Address [address] [place] [address] Care Team Providers Care Merry Go Round Attendant Name Role Phone Leidymaxrani DEGROOT Azul Primary Care Provider Unavail able RuyValeriy Unavailable [phone] Allergies No Known Allergies REASON FOR VISIT 3m F/U - COPD Medications Medication SIG (Take, Route, Frequency, Duration) Notes Start Date End Date Status hydrOXYzine HCl 25 MG TAKE 1 TO 2 TABLET S BY MOUTH EVERY 8 HOURS NEEDED FOR ANXIETY for up to TEN days Oral for 10 Days Active FLUoxetine HCl 20 MG 1 tablet Oral for 30 days Active Albuterol Sulfate HFA 108 (90 Base) MCG/ACT 2 puffs as needed for SOB Inhalation Q4H for 90 days Dispense #3 inhalers Active predniSONE 5 MG 1 tablet Orally Once a day for 30 days Take with food 03/14/2025 Active Atorvastatin Calcium 40 MG TAKE 1 TABLET BY MOUTH DAILY Oral for 30 Days Active Ipratropium-Albuterol 0.5-2.5 (3) MG/3ML 3mL Inhalation 6 times a day for 90 days Active Spiriva Respimat 2.5 MCG/ACT 2 puffs Inhalation QD Active Budesonide-Formoterol Fumarate 160-4.5 MCG/ACT 2 puffs as needed for SOB Inhalation Q4H Rinse after use Active Aspirin Low Dose [...] Tobacco non-user Ex-heavy c igarette smoker (20-30/day) Problems Problem Type SNOMED Code ICD Code Onset Dates Problem Status W/U Status Risk Notes Problem [id number] 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 (Z79.52) Active confirmed Vital Signs Weight 207.8 lbs 03/14/2025 Height 74 in 03/14/2025 Blood pressure systolic 104 mm Hg 03/14/20 25 Blood pressure diastolic 58 mm Hg 025 Temperature 96.8 degrees Fahrenheit 03/14/20 25 Heart Rate 99 /min 03/14/2025 Respiratory Rate 20 /min 03/14/2025 BMI 26.68 kg/m2 03/14/2025 Oximetry 91 % 03/14/2025 Encounters Encounter Location Date Provider Diagnosis Pulmonary Medicine [place] [address] [place] [address] 03/14/2025 Valeriyerika Boo Centrilobular emphys promise J43.2 ; History of tobacco abuse Z87.891 ; 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 Ohtuvayre too expensive. Options limited - needs to repeat PFT and check CBC for eosinophils to see if he is a candidate for EBV or Dupixent/Nucala. He required 4 prednisone bursts over the past 5 months. Discussed starting daily prednisone today. Explained the multiple risks of chronc prednisone therapy including, but not limited to: increased risk of cataracts, elevated blood sugars/worsening of underlying diabetes mellitus, impaired wound healing, gastrointestinal ulcers, osteoporosis. He already complains of blurry vision. Patient voiced he is willing to try prednisone. Will begin at lower dose 5mg/day for now. If he wants anything else, he will need to be off prednisone for several weeks to check CBC for eosinophils, and he will need PFT. 03/14/2025 History of tobacco abuse (ICD-10 - Z87.891) 1ppd x ~35 years, quit 2021 1ppd x ~35 years, quit 2022. LDCT due 11/2025. 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 03/14/2025 senior care (current) use of inhaled steroids (ICD-10 - Z79.51) Patient was counseled to rinse & gargle with water after inhaled corticosteroid use. 03/14/2025 Other Plan Of Treatment Medication Medication Name Sig Start Date Stop Date Notes Albuterol Sulfate HFA 108 (9 0 Base) MCG/ACT 2 puffs as needed for SOB Inhalation Q4H for 90 days predniSONE 5 MG 1 tablet Orally Once a day for 30 days 03/14/2025 Ipratropium-Albuterol 0.5-2. 5 (3) MG/3ML 3mL Inhalation 6 times a day for 90 days Spiriva Respimat 2.5 MCG/ACT 2 puffs Inhalation QD Budesonide-Formoterol Fumarate 160-4.5 MCG/ACT 2 puffs as needed for SOB Inhalation Q4H Treatment Notes Assessment Notes Centrilobular emphysema Prior treatments: Symbicort 160 + Spiriva 2.5 > Stiolto, Advair, Trelegy & Breo (does not tolerate dry powder inhalers); Ohtuvayre (too expensive) Symptomatic despite Symbicort + Spiriva and DuoNeb 4-6x/day. Ohtuvayre too expensive. Options limited - needs to repeat PFT and check CBC for eosinophils to see if he is a candidate for EBV or Dupixent/Nucala. He required 4 prednisone bursts over the past 5 months. Discussed starting daily prednisone today. Explained the multiple risks of chronc prednisone therapy including, but not limited to: increased risk of cataracts, elevated blood sugars/worsening of underlying diabetes mellitus, impaired wound healing, gastrointestinal ulcers, osteoporosis. He already complains of blurry vision. Patient voiced he is willing to try prednisone. Will begin at lower dose 5mg/day for now. If he wants anything else, he will need to be off prednisone for several weeks to check CBC for eosinophils, and he will need PFT. History of tobacco abuse 1ppd x ~35 years, quit 2022. LDCT due 11/2025. senior care (current) use of s ystemic steroids Discussed adverse effects of [facility] systemic steroids including, but not limited to: increased risk of cataracts, elevated blood sugars/worsening of underlying diabetes mellitus, impaired wound healing, gastrointestinal ulcers, osteoporosis. 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 Next Appt Details Follow Up: 4 Months, Reason: COPD Procedure Notes * Category Sub-Category Detail Notes PFT Data: 03/08/2019-FEV1/F VC: 34%-FEV1: 27%-FVC: 60%-TQF36-93%: 12%-Bronchodilator response: Positive-RV: 161%-T%-DLCO: 50%-Flow-volume loop: Severe obstructive pattern Alpha-1 Antitrypsin Screening Date: 06/28/2019 Genotype: MM Progress Notes * NIA Sam KDOB:[birth year] (64 yo M)Acc No.[id number]:03/14/2025 Follow Up Patient: Sam SPEAR Provider: Ale Boo DO :1960 A ge:64 Y S ex:Male Date:03/14/2025 Address:[address] [place] [address], [id number] Pcp:Azul Quezada, [employer] Check In:01:17 PM NHUNGCheck Primo ut:01:49 PM EST Subjective: * Chief Complaints: * 3 m F/U - COPD * HPI: G eneral: Breathing has been rough the last week with the higher temperatures and humidity. He has been staying indoors. He remains on Symbicort + Spiriva. Continues to use DuoNeb 4-6 times a day as well as albuterol HFA 3-4 times/day. He has refilled prednisone burst 4 times in 2024: 01/31/2025, 12/15/2024, 11/16/2024, and 09/26/2024. His vision is blurry when he takes this. H e reduced his working hours to 4 hours twice a week. ? MA Intake Comments:. Patient presents for a follow-up for COPD. Patient is using Symbicort, Spiriva & Nebulizer daily. Patient is requesting refill of Nebulizer supplies. Patient states he is having Azul Quezada NP complete a patient assistance forms. Patient complains of SOB. Patient states the heat has really been affecting his breathing. Patient states he is not taking Prednisone as it has been affecting his eyesight. Patient reports using his rescue inhaler 3-4 times per day. Patient states he is no longer doing 8-hour shifts at work any longer. * ROS: G eneral/Constitutional: Fatigue a dmits. [...] P alpitations d enies. R espiratory: Dyspnea p resent. C ough d aily productive cough. H [...] Problem List J43.2 Centrilobular emphys promise Modified On:12/31/2023W/U Status:confirmed Z79.51 senior care (current) use of inhaled steroids Modified On:12/31/2023/U Status:confirmed F12.10 Marijuana abuse Modified On:12/31/2023U Status:confirmed Z87.891 History of tobacco a buse Modified On:12/31/2023/U Status:confirmed D72.19 Peripheral eosinophi manny Modified On:12/31/2023U Status:confirmed Z79.52 senior care (current) use of systemic steroids Modified On:03/14/2025W/U Status:confirmed * Medical History: * Surgical History: t onsillectomy and adenoidectomy cyst removal-vocal cord polyp removal Right Carotid Angioplasty & Stenting 06/12/2020 * Hospitalization/Major Diagno stic Procedure: [facility]2020[facility] 10/21/2023 * Family History: F ather: acute myocardial infarction. M other: asthma, diagnosed with Unspecified essential hypertension, Diabetes mellitus without mention of complication, type II or unspecified type, not stated as uncontrolled. * Social History: T obacco Use: T [...] cups per day. 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 D rugs/Alcohol: D rugs [...] MG/3ML Solution 3mL Inhalation Q4H Spiriva Respimat(Tiotropium [place] Monohydrate) 2.5 MCG/ACT Aerosol Solution 2 puffs Inhalation QD Medication List reviewed and reconciled with the patientTaking Albuterol Sulfate HFA 108 (90 Base) MCG/ACT Aerosol Solution 2 puffs as needed for SOB Inhalation Q4H Taking Aspirin Low Dose(Aspirin) 81 MG Tablet Delayed Release TAKE 1 TABLET BY MOUTH ONCE DAILY Oral Taking Atorvastatin Calcium 40 MG Tablet TAKE 1 TABLET BY MOUTH DAILY Oral Taking Budesonide- Formoterol Fumarate 160-4.5 MCG/ACT Aerosol 2 puffs as needed for SOB Inhalation Q4H Rinse after useTaking FLUoxetine HCl 20 MG Capsule 1 tablet Oral Taking hydrOXYzine HCl 25 MG Tablet TAKE 1 TO 2 TABLETS BY MOUTH EVERY 8 HOURS NEEDED FOR ANXIETY for up to TEN days Oral Taking Ipratropium-Albuterol 0.5-2.5 (3) MG/3ML Solution 3mL Inhalation Q4H Taking Spiriva Respimat(Tiotropium [place] Monohydrate) 2.5 MCG/ACT Aerosol Solution 2 puffs Inhalation QD Medication List reviewed and reconciled with the patient * Allergies: N .K.D.A.no[Allergies Verified] Objective: * Vitals: W t:207.8lbs, Ht: 74 in, BP:sittin/58mm Hg, Temp:Forehead:96.8F, HR:99/min, RR:20/min, BMI:26.68Index, Oxygen sat %:Room Air:91%, Ht-cm: 187.96 cm, Wt-k.26 kg. * Examination: E xam: GENERAL APPEARANCE: S peaks frequently without conversational dyspnea despite his poor pulmonary function. Skin N ormal. Mouth P ink and moist. N o candidiasis. Oropharynx M allampati Class III. Thicker white postnasal drainage. Trachea M idline. Chest N ormal. Respiratory Normal M ovements, E ffort N ormal. Auscultation D iminished with diffuse expiratory wheezes. No rhonchi. Cardiac R egular rate and rhythm. Gastrointestinal N ormal. Vascular N o edema. Musculoskeletal N ormal posture. Neurological F ocal, intact. Psychiatric A lert and oriented x3. Mentation/Cognition N ormal. Assessment: * Assessment: 1. C entrilobular emphysema - J43.2 (Primary) 2 . H istory of tobacco abuse - Z87.891 N otes :1ppd x ~35 years, quit 2021 3 . L petra term (current) use of systemic steroids - Z79.52 4 .?senior care (current) use of inhaled steroids - Z79.51 Plan: * Treatment: 2. H istory of tobacco abuse Notes: 1ppd x ~35 years, quit 2022. LDCT due 11/2025. 3. L petra term (current) use of systemic steroids Notes: Discussed adverse effects of [facility] systemic steroids including, but not limited to: increased risk of cataracts, elevated blood sugars/worsening of underlying diabetes mellitus, impaired wound healing, gastrointestinal ulcers, osteoporosis. 4. L petra term (current) use of inhaled steroids Notes: Patient was counseled to rinse & gargle with water after inhaled corticosteroid use. * Procedures: A lpha-1 Antitrypsin: Screening Date: . Genotype: M M. P FT: Data: 03/08/2019 -FEV1/FVC: 34%-FEV1: 27%-FVC: 60%-VJS80-31%: 12%-Bronchodilator response: Positive-RV: 161%-T%-DLCO: 50%-Flow-volume loop: Severe [...] tobacco use and urged to quit. 0 03/14/2025 Former Education on smoking effects provided?03/14/[address] ACTION PLAN Above Normal BMI Follow-up D ietary management education, guidance, and counseling R SV-08/30/2024. * Follow Up: 4 Months (Reason: COPD) * * Sign off status: Completed Visit Status: C HK (Check Out) true * Provider: Ale Boo DO Date: 0 03/14/2025 Generated for Yoana lazcano/[facility]/Luizaitting on: 0 05/09/2025 02:46 AM EDT History and Physical Notes * HPI (History of Present Illness) Category Sub-Category Detail Notes Category Not es General Patient present s for a follow-up for COPD. Patient is using Symbicort, Spiriva & Nebulizer daily. Patient is requesting refill of Nebulizer supplies. Patient states he is having Azul Quezada NP complete a patient assistance forms. Patient complains of SOB. Patient states the heat has really been affecting his breathing. Patient states he is not taking Prednisone as it has been affecting his eyesight. Patient reports using his rescue inhaler 3-4 times per day. Patient states he is no longer doing 8-hour shifts at work any longer. Examination Category Sub-Category Detail Notes Category Not es Exam GENERAL APPEARANCE: Speaks frequ ently without conversational dyspnea despite his poor pulmonary function Skin Normal Mouth [place] and moist. No c andidiasis Trachea Midline Chest Normal Respiratory Normal Movements, Ef fort Normal Auscultation Diminished with diff use expiratory wheezes. No rhonchi Cardiac Regular rate and rhy thm Gastrointestinal Normal Vascular No edema Musculoskeletal Normal posture Neurological Focal, intact Psychiatric Alert and oriented x 3 Mentation/Cognition Normal Oropharynx Mallampati Class III . Thicker white postnasal drainage
[2025-05-09] VITALS (14 sets, daily range): BP systolic 132–154; BP diastolic 70–95; PULSE 78–100; TEMP 36.4–37.1; O2SAT 88–98; BMI 26.4; BMI 28.0
--- NOTE | 2025-05-09 02:41 | ECG_ITS ---
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 Measurements Intervals [place] Rate: 91 P: 80 IL: 148 QRS: 77 QRSD: 88 T: 76 QT: 360 QTc: 409 Interpretive Statements 1100 Sinus rhythm [address] depression 9150 abnormal ECG Compared to ECG 03/16/2025 09:06:14 No significant changes Electronically Signed On 05-09-2025 17:47:14 EDT by WALT AMAYA M.D.
--- NOTE | 2025-05-09 02:43 | ED.SOB1 ---
HPI - SOB/Dyspnea General Chief Complaint: Shortness of Breath/Dyspnea Stated Complaint: SOB Time Seen by Provider: 05/09/25 02:29 Source: patient Mode of arrival: ambulance Limitations: no limitations History of Present Illness HPI Narrative: This 64-year-old male with a history of COPD who is a former smoker presents for evaluation of shortness of breath. The patient states for the past 2 days he has been having increasing shortness of breath. He states that he was at home and was going to drive here but he was too short of breath so he called EMS. He states he went to a concert in the rain on Friday night. Since then he has been having increased shortness of breath. He denies any chest pain, dizziness or diaphoresis. He has no abdominal pain or back pain. He states he is having pain in his right posterior leg that emanates from his right hip. He does take a daily baby aspirin after having a stroke. He has not had any fever. He states he has a chronic cough and occasionally it is productive. He was given a DuoNeb treatment by EMS. He states he was formerly seeing Dr Boo but has not seen him since he left the area to practice. Related Data Home Medications ?Medication ?Instructions ?Recorded ?Confirmed albuterol sulfate 90 mcg/actuation 2 inh inhalation Q4H PRN shortness 09/21/23 06/15/24 aerosol inhaler of breath or wheezing aspirin 81 mg tablet,delayed 81 mg PO DAILY 09/21/23 06/15/24 release atorvastatin 40 mg tablet 40 mg PO DAILY 09/21/23 06/15/24 budesonide-formoterol HFA 160 2 inh inhalation Q12H 09/21/23 06/15/24 mcg-4.5 mcg/actuation aerosol inhaler (Symbicort) fluoxetine 10 mg capsule 20 mg PO DAILY 09/21/23 06/15/24 tiotropium bromide 2.5 2 puff inhalation Q24H 09/21/23 06/15/24 mcg/actuation mist for inhalation (Spiriva Respimat) trazodone 50 mg tablet 50 mg PO BEDTIME 09/21/23 06/15/24 Previous Rx's ?Medication ?Instructions ?Recorded ipratropium 0.5 mg-albuterol 3 mg 3 ml inhalation Q6H PRN shortness 12/01/23 (2.5 mg base)/3 mL nebulization of breath or wheezing #90 mL soln diphenhydramine HCl 25 mg capsule 25 mg PO TID PRN allergic reaction 05/30/24 (Benadryl) #10 caps epinephrine 0.3 mg/0.3 mL 0.3 mg (0.3 mL) IM ONCE PRN 05/30/24 injection, auto-injector (EpiPen) allergic reaction #2 ea famotidine 20 mg tablet (Pepcid) 20 mg PO BID #10 tabs 05/30/24 albuterol sulfate 2.5 mg/3 mL 2.5 mg (3 mL) inhalation Q6H PRN 09/26/24 (0.083 %) solution for nebulization shortness of breath or wheezing #75 mL doxycycline hyclate 100 mg capsule 100 mg PO BID 7 days #14 caps 09/26/24 ipratropium bromide 0.02 % 2.5 ml inhalation Q8H PRN 09/26/24 solution for inhalation shortness of breath or wheezing #62.5 mL prednisone 20 mg tablet 40 mg (2 x 20 mg) PO DAILY 4 days 09/26/24 #8 tabs azithromycin 250 mg tablet See Rx Instructions PO .COMPLEX #6 03/16/25 (Zithromax Z-Igor) tabs prednisone 10 mg tablet See Rx Instructions .Route 03/16/25 .COMPLEX #30 tabs Allergies Allergy/AdvReac Type Severity Reaction Status Date / Time bee venom protein (honey bee) Allergy Severe Anaphylaxis Verified 05/09/25 02:29 Review of Systems ROS Status of ROS 10 or more systems reviewed and unremarkable except as noted in history and below [facility] Medical History (Updated 05/09/25 @ 05:04 by Mary Zamudio MD) History of common carotid artery stent placement ?Z98.890 - Other specified postprocedural states (ICD-10) ?Z95.828 - Presence of other vascular implants and grafts (ICD-10) 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 - Polyp of vocal cord and larynx (ICD-10) Vertebral artery occlusion ?I65.09 - Occlusion and stenosis of unspecified vertebral artery (ICD-10) Tourette's ?F95.2 - Tourette's disorder (ICD-10) Testicle lump ?N50.89 - Other specified disorders of the male genital organs (ICD-10) Rheumatic fever ?I00 - Rheumatic fever without heart involvement (ICD-10) Pigmented skin lesion of uncertain nature ?L81.9 - Disorder of pigmentation, unspecified (ICD-10) Papule of skin ?R23.8 - Other skin changes (ICD-10) Osteoarthritis ?M19.90 - Unspecified osteoarthritis, unspecified site (ICD-10) Neck mass ?R22.1 - Localized swelling, mass and lump, neck (ICD-10) Multiple pulmonary nodules ?R91.8 - Other nonspecific abnormal finding of lung field (ICD-10) Marijuana abuse ?F12.10 - Cannabis abuse, uncomplicated (ICD-10) Insomnia ?G47.00 - Insomnia, unspecified (ICD-10) Degenerative cervical disc ?M50.30 - Other cervical disc degeneration, unspecified cervical region (ICD-10) CVA (cerebral vascular accident) ?I63.9 - Cerebral infarction, unspecified (ICD-10) COVID-19 ?U07.1 - COVID-19 (ICD-10) Centrilobular emphysema ?J43.2 - Centrilobular emphysema (ICD-10) Calcified lymph nodes ?I89.8 - Other specified noninfective disorders of lymphatic vessels and lymph nodes (ICD-10) Bilateral carotid artery stenosis ?I65.23 - Occlusion and stenosis of bilateral carotid arteries (ICD-10) Allergic rhinitis ?J30.9 - Allergic rhinitis, unspecified (ICD-10) Alcohol abuse ?F10.10 - Alcohol abuse, uncomplicated (ICD-10) Anxiety ?F41.9 - Anxiety disorder, unspecified (ICD-10) Cerebrovascular disease ?I67.9 - Cerebrovascular disease, unspecified (ICD-10) COPD (chronic obstructive pulmonary disease) ?J44.9 - Chronic obstructive pulmonary disease, unspecified (ICD-10) Depression, unspecified ?F32.A - Depression, unspecified (ICD-10) Dyslipidemia ?E78.5 - Hyperlipidemia, unspecified (ICD-10) 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 - Other diseases of vocal cords (ICD-10) Surgical History (Updated 06/08/24 @ 11:14 by Lidia Fontanez) History of vocal cord polypectomy ?Z98.890 - Other specified postprocedural states (ICD-10) H/O adenoidectomy ?Z90.89 - Acquired absence of other organs (ICD-10) History of tonsillectomy ?Z90.89 - Acquired absence of other organs (ICD-10) Family History (Updated 06/15/24 @ 06:35 by Cira Palacio RN) Mother Family history of CHF (congestive heart failure) Family history of COPD (chronic obstructive pulmonary disease) Hypertension Sister Family history of diabetes mellitus Father Family history of cancer Other Family history of myocardial infarction Social History Within the past year, how often did you have a drink containing alcohol: never Within the past year, how often did you have six or more drinks on one occasion: never Score interpretation: A score less than 4 is consistent with normal alcohol consumption. Smoking status: Current every day smoker Second hand tobacco smoke exposure: No Non-prescribed substance use: cannabis (any form) Known occupational exposures/hazards: No Highest level of school completed/degree received: high school graduate Are you now , , , , never or living with a partner: living with partner In a typical week, how many times do you talk on the telephone with family, friends, or neighbors: 3 or more times per week How often do you get together with friends or relatives: 3 or more times per week How often do you attend restorationist or buddhism services: 1-3 times per year Do you belong to any clubs or organizations such as restorationist groups unions, fraternal or athletic groups, or school groups: no Total score: 2 Score interpretation: A score of greater than or equal to 2 indicates the lowest level of social isolation. Little interest or pleasure in doing things: not at all Feeling down, depressed, or hopeless: not at all Feel stressed/tense/nervous/anxious/difficulty sleeping: not at all Due to disability, difficulty making decisions: No Do you think of yourself as: straight/heterosexual Gender Identity: male Exam Narrative Exam Narrative: Vital signs and Nursing Notes reviewed: Patient is afebrile, he has normal pulse, he is tachypneic with a respiratory of 22 and blood pressure is elevated 154/95, he is not hypoxic with pulse ox of 96% on room air General: Awake, alert, oriented, no acute distress, lying comfortably on the stretcher-audible expiratory wheezing is appreciated HEENT: Normocephalic atraumatic, mucous membranes are moist and pink, eyes are clear, normal conjunctiva, vision is grossly intact, posterior pharynx is normal in appearance Neck: Supple Chest: Bilateral expiratory wheezing appreciated, patient is tachypneic, no rhonchi or rales appreciated, mild accessory muscle use noted but patient is speaking in complete sentences with a normal pulse ox at 96% on room air CVS: Regular rate and rhythm S1-S2, no murmurs rubs or gallops, pulses are brisk and equal bilaterally ABD: Soft, nondistended, nontender, no rebound guarding or rigidity, bowel sounds are normal, no pulsatile masses appreciated Extremities: Moving all extremities, no lower extremity tenderness or swelling noted, negative Homans' sign, pulses are brisk and equal bilaterally Skin: Normal in appearance without rash,pallor, petechiae or purpura Neuro: No focal deficits Constitutional Vital Signs, click to edit/add: Last Vital Signs Temp 98.8 F 05/09/25 02:30 Pulse 90 05/09/25 03:17 Resp 24 H 05/09/25 03:17 BP 154/95 H 05/09/25 02:30 Pulse Ox 93 L 05/09/25 04:56 O2 Del Method Room Air 05/09/25 04:56 O2 Flow Rate 2 05/09/25 03:17 Course Vital Signs Vital signs: Vital Signs Temperature 98.8 F 05/09/25 02:30 Pulse Rate 93 H 05/09/25 02:30 Respiratory Rate 22 H 05/09/25 02:30 Blood Pressure 154/95 H 05/09/25 02:30 Pulse Oximetry 96 05/09/25 02:30 Oxygen Delivery Method Room Air 05/09/25 02:30 Temperature 98.8 F 05/09/25 02:30 Pulse Rate 90 05/09/25 03:17 Respiratory Rate 24 H 05/09/25 03:17 Blood Pressure 154/95 H 05/09/25 02:30 Pulse Oximetry 93 L 05/09/25 04:56 Oxygen Delivery Method Room Air 05/09/25 04:56 Oxygen Delivery Flow Rate 2 05/09/25 03:17 MDM - SOB/Dyspnea MDM Narrative Medical decision making narrative: This 64-year-old male with a history of COPD with a former history of tobacco use is brought to the emergency department by EMS from home. The patient states he was trying to drive here from home due to his shortness of breath which started 2 days ago but was too short of breath to make the trip and called EMS. Upon EMS arrival he was given a DuoNeb treatment. He was transported to the emergency department. His vital signs are stable and pulse ox was in the mid 90s. He does have diffuse expiratory wheezing. EKG done upon arrival is a sinus rhythm at 90 bpm normal axis and no acute changes. An IV was placed and he was given IV Solu-Medrol, IV magnesium and additional DuoNeb treatment. On reevaluation he states he is feeling better than he was. Cardiac workup was ordered. He has a normal white count and stable hemoglobin. D-dimer is normal. Troponin is normal. Electrolytes are normal. BNP is normal. CXR does not show any infiltrate, pneumothorax or marked cardiomegaly. Patient requested to use the restroom and was taken off of supplemental oxygen. His pulse ox stayed in the 93 to 94% range. After ambulating to the restroom his pulse ox dropped to the low 90s. The case was discussed with the hospitalist and he is accepted for admission to med/surg. Medical Records Attestation: I reviewed the patient's medical records. Lab Data Attestation: I reviewed the patient's lab results. Labs: Lab Results 05/09/25 Range/Units 02:35 WBC 9.6 (4.0-11.0) 10^3/uL RBC 4.72 (4.70-6.10) 10^6/uL Hgb 14.2 (14.0-18.0) g/dL Hct 43.5 (42.0-54.0) % MCV 92.2 (80.0-94.0) fL MCH 30.1 (25.9-34.0) pg MCHC 32.6 (29.9-35.2) g/dL RDW 12.2 (11.0-15.0) % Plt Count 296 (150-450) 10^3/uL MPV 9.6 (9.5-13.5) fL Neut % (Auto) 69.9 (43.0-75.0) % Lymph % (Auto) 18.8 L (20.5-60.0) % Bulloch % (Auto) 9.5 (1.7-12.0) % Eos % (Auto) 0.3 L (0.9-7.0) % Baso % (Auto) 0.9 (0.2-2.0) % Neut # (Auto) 6.7 H (1.4-6.5) 10^3/uL Lymph # (Auto) 1.8 (1.2-3.8) 10^3/uL Bulloch # (Auto) 0.9 H (0.3-0.8) 10^3/uL Eos # (Auto) 0.0 (0.0-0.7) 10^3/uL Baso # (Auto) 0.1 (0.0-0.1) 10^3/uL Abs Immat Gran (auto) 0.06 H (0.00-0.03) 10^3/uL Imm/Tot Granulo (auto) 0.6 H (0.0-0.5) % D-Dimer 0.37 (<=0.59) mg/L FEU Sodium 141 (136-145) mmol/L Potassium 4.5 (3.5-5.1) mmol/L Chloride 104 (98-107) mmol/L Carbon Dioxide 30.0 (21.0-32.0) mmol/L Anion Gap 11.5 BUN 21.0 H (7.0-18.0) mg/dL Creatinine 1.02 (0.70-1.30) mg/dL Est GFR ( Amer) >60 (>=60 mL/min/1.73m^2) Est GFR (Non-Af Amer) >60 (>=60 mL/min/1.73m^2) BUN/Creatinine Ratio 20.6 Glucose 97 (74-106) mg/dL Calcium 8.7 (8.5-10.1) mg/dL Total Bilirubin 0.7 (0.2-1.0) mg/dL AST 18 (15-37) U/L ALT 24 (16-63) U/L Alkaline Phosphatase 67 (46-116) U/L Troponin I High Sens 7.4 (4.0-76.1) pg/mL NT-Pro-B Natriuret Pep 95.0 (<=900.0) pg/mL Total Protein 7.4 (6.4-8.2) g/dL Albumin 3.8 (3.4-5.0) g/dL Globulin 3.6 g/dL Albumin/Globulin Ratio 1.1 ECG Data Attestation: I personally reviewed and interpreted this ECG as follows: (Sinus rhythm at 90 bpm, normal axis, normal intervals, no acute ST segment elevation or T wave inversion) Discharge Plan Discharge Chief Complaint: Shortness of Breath/Dyspnea Clinical Impression: Acute exacerbation of chronic obstructive pulmonary disease Prescriptions / Home Meds: No Action atorvastatin 40 mg tablet 40 mg PO DAILY trazodone 50 mg tablet 50 mg PO BEDTIME aspirin 81 mg tablet,delayed release (DR/EC) 81 mg PO DAILY fluoxetine 10 mg capsule 20 mg PO DAILY albuterol sulfate 90 mcg/actuation HFA aerosol inhaler 2 inh INHALATION Q4H PRN (Reason: shortness of breath or wheezing) budesonide-formoterol [Symbicort] 160-4.5 mcg/actuation HFA aerosol inhaler 2 inh INHALATION Q12H Spiriva Respimat 2.5 mcg/actuation mist 2 puff INHALATION Q24H prednisone 10 mg tablet See Rx Instructions .ROUTE .COMPLEX Qty: 30 0RF Rx Instructions: 4 by mouth daily for three days then 3 by mouth daily for three days then 2 by mouth daily for three days then 1 by mouth daily for three days azithromycin [Zithromax Z-Igor] 250 mg tablet See Rx Instructions .ROUTE .COMPLEX Qty: 6 0RF Rx Instructions: For 250 mg dose pack: take 500 mg today (day 1), then 250 mg for 4 days (days 2-5) ipratropium-albuterol 0.5 mg-3 mg(2.5 mg base)/3 mL solution for nebulization 3 ml inhalation Q6H PRN (Reason: shortness of breath or wheezing) Qty: 90 0RF famotidine [Pepcid] 20 mg tablet 20 mg PO BID Qty: 10 0RF diphenhydramine HCl [Benadryl] 25 mg capsule 25 mg PO TID PRN (Reason: allergic reaction) Qty: 10 0RF epinephrine [EpiPen] 0.3 mg/0.3 mL auto-injector 0.3 mg IM ONCE PRN (Reason: allergic reaction) Qty: 2 0RF Rx Instructions: for 2 doses doxycycline hyclate 100 mg capsule 100 mg PO BID 7 Days Qty: 14 0RF prednisone 20 mg tablet 40 mg PO DAILY 4 Days Qty: 8 0RF albuterol sulfate 2.5 mg /3 mL (0.083 %) solution for nebulization 2.5 mg inhalation Q6H PRN (Reason: shortness of breath or wheezing) Qty: 75 0RF ipratropium bromide 0.02 % solution 2.5 ml inhalation Q8H PRN (Reason: shortness of breath or wheezing) Qty: 62.5 0RF Print Language: Danish Referrals: Azul Quezada NP [Primary Care Provider, Family Practice] - 1 week
--- NOTE | 2025-05-09 02:45 | PC.NURSE ---
Oxygen initiated at 2LPM for patient comfort
[2025-05-09 02:46] LABS: Hematocrit 43.5 % (42.0-54.0); Hemoglobin 14.2 g/dL (14.0-18.0); Immature Granulocytes Abs Auto 0.06 10^3/uL (0.00-0.03); Immature Granulocytes Pct Auto 0.6 % (0.0-0.5); Lymphocytes Absolute Auto 1.8 10^3/uL (1.2-3.8); Mean Corpuscular HGB Conc 32.6 g/dL (29.9-35.2); Mean Corpuscular Hemoglobin 30.1 pg (25.9-34.0); Mean Corpuscular Volume 92.2 fL (80.0-94.0); Platelet Count 296 10^3/uL (150-450); Red Blood Count 4.72 10^6/uL (4.70-6.10); White Blood Count 9.6 10^3/uL (4.0-11.0)
--- OUTSIDE RECORDS SUMMARY | 2025-05-09 02:46 | XMS_ITS | Encounter Summary ---
Author Organization [facility] Address [address] [place] [address] Care Team Providers Care Food Sanitarian Name Role Phone Azul Quezada BARREL ROLLER Unavailable [phone] Kiko Zurita MD Primary Care Provider Azul Quezada BARREL ROLLER Unavailable [phone] Encounter Details Date Type Department Care Team (Late st Contact Info) Description 08/23/2024 Abstract [facility] [address] [place] [address] Azul Quezada NP [address] [place] [address] Social History Tobacco Use Types Packs/Day Years [...] often do you attend chur ch or bahai services? Never 11/13/2023 Do you belong to any clubs o r organizations such as mormon groups, unions, fraternal or athletic groups, or [...] Recorded Patient Health Questionnaire-2 Score 0 02/18/2024 [facility] Answer Date Recorded [...] Care Team (Late st Contact Info) Description 11/21/2025 4:30 PM EST Office Visit [facility] [address] [place] [id number] Azul Quezada NP [address] [place] [address] documented as of this encounter Visit Diagnoses Not on filedocumented in this encounter Care Teams Food Sanitarian Relationship Specialty Start Date End Date Kiko Zurita MD [address] [place] [address] PCP - General Family Medicine 10/24/23 Azul Quezada NP [address] [place] [address] PCP - ACO Reach 10/29/24 Azul Quezada NP [address] [place] [id number] Referring Physician Nurse Practitioner 04/07/23 documented as of this encounter
--- OUTSIDE RECORDS SUMMARY | 2025-05-09 02:46 | XMS_ITS | Clinical Summary ---
[facility] tem Address [id number] [address] [place] [address] Care Team Providers Care Record Tabulating Clerk Name Role Phone Azul Quezada APRN-[employer]ACULTY [employer]IN[employer]ICE Primary Care Provider Allergies Active Allergy Reactions Criticality Noted Date Comments Bee Venom Protein (Honey Bee) 2019 Medications albuterol (ACCUNEB) 0.63 mg/3 mL nebulizer solution Inhale 1 ampule by nebulization every 6 (six) hours as needed for wheezing. Active albuterol (PROVENTIL HFA;VENTOLIN HFA) 90 mcg/actuation inhaler Inhale 2 puffs every 6 (six) hours as needed for wheezing. Active tiotropium (SPIRIVA) 18 mcg per inhalation capsule Place 1 capsule into inhaler and inhale once daily. Active traZODone (DESYREL) 75 mg tablet Take 50 mg by mouth nightly. Active FLUoxetine (PROzac) 10 mg capsule Take 10 mg by mouth daily. Active aspirin 81 mg chewable tablet Chew 1 tablet (81 mg total) and swallow daily. 30 tablet 5 0 Active atorvastatin (LIPITOR) 40 mg tablet Take 1 tablet (40 mg total) by mouth nightly. 30 tablet 2 0 Active Active Problems Problem Noted Date Diagnosed Date Mixed hyperlipidemia 07/20/2020 Smoker 07/20/2020 Internal carotid artery stenosis, right 06/10/20 20 CVA (cerebral vascular accident) 06/10/2020 Immunizations No known immunizations Family History Medical History Relation Name Comments Heart disease Father COPD Mother Heart disease Mother Peripheral vascular disease Mother Relation Name Status Comments Father Mother Social History Tobacco Use Types Packs/Day Years Used Date Smoking Tobacco: Every Day Cigarettes Smokeless Tobacco: Never Comments:quit 4 days ago as of 12/21/20 Alcohol Use Standard Drinks/Week Comments Not Currently 0 (1 standard drink = 0.6 oz pur e alcohol) Social Connection and Isolation Panel [NHANES] A nswer Date Recorded In a typical week, how many times do you talk on the phone with family, friends, or neighbors? Twice a week 06/10/20 20 How often do you get togethe r with friends or relatives? Once a week 06/10/2020 How often do you attend chur ch or mu-ism services? Never 06/10/2020 Do you belong to any clubs o r organizations such as buddhist groups, unions, fraternal or athletic groups, or school groups? No 06/10/2020 How often do you attend meet ings of the clubs or organizations you belong to? Never 06/10/2020 Are you , , di vorced, , never , or living with a partner? Living with partner 06/10/2020 AUDIT-C Answer Date Recorded Q1: How often do you have a drink containing alc ohol? Monthly or less 06/10/2020 Average Number of Drinks Not on file 020 Frequency of Binge Drinking Not on file 05/23 Overall Financial Resource Strain (CARDIA) Answe r Date Recorded How hard is it for you to pa y for the very basics like food, housing, medical care, and heating? Not hard at all 06/10/2020 PHQ-2 Answer Date Recorded Total Score 0 02/07/2022 [facility] - Occupational Stress Questionnaire Answer Date Recorded Do you feel stress - tense, restless, nervous, or anxious, or unable to sleep at night because your mind is troubled all the time - these days? Not at all 06/10/2020 Exercise Vital Sign Answer Date Recorde d On average, how many days pe r week do you engage in moderate to strenuous exercise (like a brisk walk)? 7 days 06/10/2020 On average, how many minutes do you engage in exercise at this level? 60 min 06/10/2020 PRAPARE - Transportation Answer Date Re corded In the past 12 months, has l ack of transportation kept you from medical appointments or from getting medications? No 05/23 In the past 12 months, has l ack of transportation kept you from meetings, work, or from getting things needed for daily living? No 06/10/2020 Childcare Answer Date Recorded Childcare Unknown 03/03/2019 Employment Answer Date Recorded Employment Unknown 03/03/2019 Purpose - Life Answer Date Recorded Purpose and direction in life Unknown Sex and Gender Information Value Date Recorded Sex Assigned at Not on file Legal Sex Male 11:32 AM EDT Gender Identity Not on file Sexual Orientation Not on file Last Filed Vital Signs Vital Sign Reading Time Taken Comments Blood Pressure 106/55 03/08/2022 4:20 AM EDT Pulse 93 03/08/2022 4:25 AM EDT Temperature 37.2 C (99 F) 03/08/2022 3:45 AM EDT Respiratory Rate 19 03/08/2022 4:25 AM EDT Oxygen Saturation 92% 03/08/2022 4:25 AM EDT Inhaled Oxygen Concentration - - Weight 84.8 kg (187 lb) 03/08/2022 12:03 AM EDT Height 188 cm (6' 2 ) 03/08/2022 12:03 AM EDT Body Mass Index 24.01 03/08/2022 12:03 AM EDT Plan of Treatment Health Maintenance Due Date Last Done Comments Depression Screening 1972 Tobacco Screening 1972 Adult BMI Screening 1978 DTaP,Tdap and Td Vaccines (1 - Tdap) 1979 Zoster (Shingles) Vaccine (1 of 2) 2010 Influenza Vaccine 2025 07/05/2015 Goals Goal Patient Goal Type Associated Problems Recent Progress Patient-Stated? Author safe discharge home General Yes Yasmeen Weiner, RN Note: Evaluation of progress towards goal: Return home with self care and family support. Medical Devices Implanted Type Area Intake Clinician Device Identifier Shelf Expiration Date Model / Serial / Lot Stnt Vsc 8/6mm 6fr 30mm 135cm - [id number] Implanted:Qty: 1 on 06/12/2020 by Andrew Terrell MD at [facility] Stent Right: Carotid [facility] [facility] 11/19/2022 [id number] / / [id number] Insurance MEDICAID [place] MEDICARE Care Teams Record Tabulating Clerk Relationship Specialty Start Date End Date Azul Quezada APRN-FACULTY [employer]INAL [employer]ICE PCP - General Nurse Practitioner 08/30/19
--- OUTSIDE RECORDS SUMMARY | 2025-05-09 02:46 | XMS_ITS | Encounter Summary ---
Author Organization [facility] Address [address] [facility] [place] [address] Care Team Providers Care Online Merchandising Coordinator Name Role Phone Azul Quezada MANAGER BUSINESS PROCESS Unavailable [phone] Kiko Zurita MD Primary Care Provider [phone] Azul Quezada MANAGER BUSINESS PROCESS Unavailable [phone] Encounter Details Date Type Department Care Team ([facility] st Contact Info) Description 09/27/2024 Orders Only [facility] [address] [place] [address] Baltazar Gil MD [address] [facility] Social History Tobacco Use Types Packs/Day Years [...] often do you attend chur ch or anglican services? Never 11/13/2023 Do you belong to any clubs o r organizations such as mosque groups, unions, fraternal or athletic groups, or [...] Recorded Patient Health Questionnaire-2 Score 0 02/18/2024 [facility] - Occupational Stress Questionnaire Answer Date Recorded [...] place to sleep or slept in a assisted (including now)? No 11/13/2023 Sex and Gender [...] Office Visit [facility] [address] [place] [phone] Azul Quezada NP [address] [place] [address] documented as of this encounter Procedures Procedure Name Priority Date/Time Associated Diagnosis Comments XR CHEST 1 VIEW Routine 09/27/2024 10:00 AM EST documented in this encounter Results * XR chest 1 view (09/27/2024 10:00 AM EST) Anatomical Region Laterality Modality Chest Radiographic [place] ging Baltazar Gil MD IMG XR PROCEDURES Final Result documented in this encounter Visit Diagnoses Not on filedocumented in this encounter Care Teams Online Merchandising Coordinator Relationship Specialty Start Date End Date Kiko Zurita MD [address] [place] [address] PCP - General Family Medicine 10/24/23 Azul Quezada NP [address] [place] [address] PCP - ACO Reach 10/29/24 Azul Quezada NP [address] [place] [phone] Referring Physician Nurse Practitioner 04/07/23 documented as of this encounter
--- OUTSIDE RECORDS SUMMARY | 2025-05-09 02:46 | XMS_ITS | Encounter Summary ---
Author Organization [facility] Address [address] [place] [address] Care Team Providers Care Member Of Parliament Name Role Phone Azul Quezada MEAT PRODUCTS DEMONSTRATOR Unavailable [phone] Kiko Zurita MD Primary Care Provider [phone] Azul Quezada MEAT PRODUCTS DEMONSTRATOR Unavailable [phone] Encounter Details Date Type Department Care [...] often do you attend chur ch or mormon services? Never 11/13/2023 Do you belong to any clubs o r organizations such as zoroastrian groups, unions, fraternal or athletic groups, or [...] Recorded Patient Health Questionnaire-2 Score 0 02/18/2024 [facility] - Occupational [...] place to sleep or slept in a half-way (including now)? No 11/13/2023 Sex and Gender Information Value Date Recorded Sex Assigned at Not on file Legal Sex Male 6:45 PM EDT Gender Identity Not on file Sexual Orientation Not on file documented as of this encounter Plan of Treatment Upcoming Encounters Date Type Department Care Team (Late st Contact Info) Description 11/21/2025 4:30 PM EST Office Visit [facility] [address] [place] [address] Azul Quezada NP [address] [place] [address] documented as of this encounter Procedures Procedure Name Priority Date/Time Associated Diagnosis Comments CT LUNG SCREENING LOW DOSE 09/08/2024 5:49 AM EST documented in this encounter Results * CT LUNG SCREENING LOW DOSE (09/08/2024 5:49 AM EST) Anatomical Region Laterality Modality Other 09/08/2024 5:49 AM EST Narrative 09/08/2024 5:51 AM EST The [address] [address] [address] Scan Report Signed Patient: SAM KRAMER MR#: [id number] : 1960 Acct:[id number] Age/Sex: 64 / M ADM Date: 09/06/24 Loc: CT Attending Dr: Valeriy White D.O. Ordering Physician: Valeriy White D.O. Date of Service: 09/06/24 Procedure(s): CT lung screening low-dose Accession Number(s): [id number] cc: Azul Quezada NP [address] [address] Patient Name: SAM KRAMER MRN: [id number] date: 1960 Sex: M Assigned Patient Location: CT Current Patient Location: Accession/Order Number: [id number] Exam Date: 09/06/2024 14:22 Report Date: 09/08/2024 [...] Dictated By: Deven Booth M.D. Signed By: 09/08/24 0551 DD/ 0549 TD/TT: Customer Insight Analyst: Procedure Note Radiology, Radiologist, MD - 09/08/2024 [place] [address] CT Scan Report Signed Patient: SAM KRAMER KMR#: [id number] : 1960Acct:[id number] Age/Sex: 64 / MADM Date: 09/06/24 Loc: CT Attending Dr: Valeriy White D.O. Ordering Physician: Valeriy White D.O. Date of Service: 09/06/24 Procedure(s): CT lung screening low-dose Accession Number(s): [id number] cc: Azul Quezada NP [place] [id number] Patient Name: SAM KRAMER MRN: [id number] date: 1960 Sex: M Assigned Patient Location: CT Current Patient Location: Accession/Order Number: [id number] Exam Date: 09/06/2024 14:22 Report Date: 09/08/2024 [...] M.D. Signed By:09/08/24 0551 DD/ 0549 TD/TT: Customer Insight Analyst: us Generic External Data Provider [facility] Final Result documented in this encounter Visit Diagnoses Not on filedocumented in this encounter Care Teams Member Of Parliament Relationship Specialty Start Date End Date Kiko Zurita MD [address] [place] [address] PCP - General Family Medicine 10/24/23 Azul Quezada NP [address] [place] [address] PCP - ACO Reach 10/29/24 Azul Quezada NP [address] [place] [address] Referring Physician Nurse Practitioner 04/07/23 documented as of this encounter
--- OUTSIDE RECORDS SUMMARY | 2025-05-09 02:46 | XMS_ITS | Encounter Summary ---
Author Organization [facility] Address [address] [facility] [place] [address] Care Team Providers Care Delicatessen Slicer Name Role Phone Azul Quezada UNCLAIMED PROPERTY MANAGER Unavailable [phone] Kiko Zurita MD Primary Care Provider [phone] Azul Quezada UNCLAIMED PROPERTY MANAGER Unavailable [phone] Encounter Details Date Type Department Care Team (Late st Contact Info) Description 03/16/2025 Abstract [facility] [address] [place] [address] Azul Quezada NP [address] [place] [address] Social History Tobacco Use Types Packs/Day Years [...] often do you attend chur ch or denominational services? Never 11/13/2023 Do you belong to any clubs o r organizations such as pentecostal groups, unions, fraternal or athletic groups, or [...] Recorded Patient Health Questionnaire-2 Score 2 11/16/2024 [facility] Answer Date [...] Office Visit [facility] [address] [place] [address] Azul Quezada NP [address] [place] [address] documented as of this encounter Visit Diagnoses Not on filedocumented in this encounter Additional Health Concerns Assessment Noted Time PHQ-9 Depression Total Score: 11 025 2:00 PM EST documented as of this encounter Care Teams Delicatessen Slicer Relationship Specialty Start Date End Date Kiko Zurita MD [address] [place] [phone] PCP - General Family Medicine 10/24/23 Azul Quezada NP [address] [place] [address] PCP - ACO Reach 10/29/24 Azul Quezada NP [address] [place] [address] Referring Physician Nurse Practitioner 04/07/23 documented as of this encounter
--- OUTSIDE RECORDS SUMMARY | 2025-05-09 02:47 | XMS_ITS | Encounter Summary ---
Author Organization [facility] Address [address] [facility] [place] [address] Care Team Providers Care Orbitread Operator Name Role Phone Kiko Zurita MD Primary Care Provider Azul Quezada NP Unavailable [phone] Kiko Zurita MD Primary Care Provider [phone] Azul Quezada PHYSICAL AERODYNAMICIST Unavailable [phone] Encounter Details Date Type Department Care Team (Late st Contact Info) Description 09/25/2023 Orders Only [facility] [address] [place] [address] Azul Quezada, ORACIO [address] [place] [address] Social History Tobacco Use Types Packs/Day Years [...] 11/21/2025 4:30 PM EST Office Visit [facility] [address] [place] [phone] Azul Quezada, ORACIO [address] [place] [address] documented as of this encounter Procedures Procedure Name Priority Date/Time Associated Diagnosis Comments ELECTROCARDIOGRAM REPORT Routine 023 1:17 PM EST documented in this encounter Results * Electrocardiogram Report (09/21/2023 1:17 PM EST) us Azul Quezada NP IN CLINIC/BEDSIDE ORDERABLES Fi nal Result documented in this encounter Visit Diagnoses Not on filedocumented in this encounter Care Teams Orbitread Operator Relationship Specialty Start Date End Date Kiko Zurita MD PCP - General Family Medicine 04/07/23 10/23/23 Kiko Zurita MD [address] [place] [address] PCP - General Family Medicine 10/24/23 Azul Quezada NP [address] [place] [address] PCP - ACO Reach 10/29/24 Azul Quezada NP [address] [place] [address] Referring Physician Nurse Practitioner 04/07/23 documented as of this encounter
--- OUTSIDE RECORDS SUMMARY | 2025-05-09 02:47 | XMS_ITS | CCD ---
Author Organization [facility] Care Team Providers Care [employer] Name Role Phone SAMSA, JAMESON Admitting Unavailable SAMSA, JAMESON Attending Unavailable AICHHOLZ, IRRIGATOR VALVE PIPE AZUL Referring Unavailable AICHHOLZ, IRRIGATOR VALVE PIPE AZUL Primary Care Unavailable SAMSA, JAMESON Consulting Unavailable AICHHOLZ, IRRIGATOR VALVE PIPE AZUL Admitting Unavailable AICHHOLZ, IRRIGATOR VALVE PIPE AZUL Attending Unavailable AICHHOLZ, IRRIGATOR VALVE PIPE AZUL Primary Care Unavailable AICHHOLZ, IRRIGATOR VALVE PIPE AZUL Consulting Unavailable SAMSA, JAMESON Admitting Unavailable SAMSA, JAMESON Attending Unavailable AICHHOLZ, IRRIGATOR VALVE PIPE AZUL Primary Care Unavailable YINGEBALMA, DR YARIEL Figueroa Consulting Unavailable SAMSA, JAMESON Consulting Unavailable AICHHOLZ, IRRIGATOR VALVE PIPE AZUL Primary Care Unavailable DAREN, DR MAURO Admitting Unavailable DAREN, DR MAURO Attending Unavailable WHITNEY, DR YARIEL Figueroa Consulting Unavailable DAREN, DR MAURO Consulting Unavailable Kiko Zurita MD Primary Care Provider [facility] END FINDER TWISTING DEPARTMENT, Azul Unavailable Kiko Zurita MD Primary Care Provider [employer] END FINDER TWISTING DEPARTMENT, Azul Unavailable Aichholz GENERAL PARTNER-IRRIGATOR VALVE PIPE, Azul J Primary Care Provider Aichholz END FINDER TWISTING DEPARTMENT, Azul Unavailable AICHHOLZ, AZUL Attending Unavailable AICHHOLZ, AZUL Attending Unavailable AICHHOLZ, AZUL Attending Unavailable IBETH ARGUETA Attending Unavailable AICHHOLZ, AZUL Attending Unavailable Allergies Allergy Classification Reported Allergen(s) Allergy Type Date of Onset Reaction(s) Facility (20 sources) Honey bee venom Allergy to substance 0 Unknown [facility] (1 source) Bee Venom Protein (Honey Bee) Propensity to adverse reactions [facility] drug [facility] Current Medications Medication Drug Class(es) Dates [...] / ipratropium bromide 0.167 mg/ml inhalation solution (20 sources) Anticholinergic, beta2-Adrenergic Agonist Start: 12-01-2023 ipratropium-albuterol (Duo-Neb) 0.5-2.5 mg/3 mL nebulizer solution Take 3 mL by nebulization in the morning and 3 mL at noon and 3 mL in the evening and 3 mL before bedtime. 12/01/2023 Active amoxicillin 875 mg / clavulanate 125 mg oral tablet (3 sources) Penicillin-class Antibacterial Start: 11-16-2024 End: 11-26-2024 take 1 tablet by mouth in the morning amoxicillin-clavulanate (Augmentin) 875-125 MG tablet Indications: COPD with acute exacerbation (CMS/HCC) Take 1 tablet (875 mg) by mouth in the morning and 1 tablet (875 mg) before bedtime. Do all this for 10 days. 20 tablet 11/16/2024 11/26/2024 Active aspirin 81 mg chewable tablet (20 sources) Platelet Aggregation Inhibitor, Nonsteroidal Anti-inflammatory Drug Start: 06-14-2020 aspirin 81 mg chewable tablet Chew 1 tablet (81 mg total) and swallow daily. 30 tablet 5 06/14/2020 Active take 1 tablet by mouth in the mo rning aspirin 81 MG EC tablet Take 81 mg by mouth in the morning. Active atorvastatin 40 mg oral tablet (20 sources) HMG-CoA Reductase Inhibitor Start: 03-15-2024 End: 03-27-2025 take 1 tablet by mouth in the evening atorvastatin (Lipitor) 40 MG tablet Indications: Mixed hyperlipidemia (CMS/HCC) Take 1 tablet (40 mg) by mouth in the evening 90 tablet 1 12/27/2024 03/27/2025 Active Start: 06-13-2020 take 1 tablet by [...] formoterol fumarate 0.0045 mg/actuat metered dose inhaler (20 sources) Corticosteroid, beta2-Adrenergic Agonist take 2 puff(s) by inhalation in the morning budesonide-formot mary (Symbicort) 160-4.5 MCG/ACT inhaler Inhale 2 puffs in the morning and 2 puffs before bedtime. Rinse mouth with water after use to reduce aftertaste and incidence of candidiasis. Do not swallow.. Active Ensifentrine (Ohtuvayre) 3 MG/2.5ML suspension (8 sources) Start: 08-17-2024 Ensifentrine (Ohtuvayre) 3 MG/2.5ML suspension every 12 (twelve) hours 08/17/2024 Active [id number] 0.3 ml EPINEPHrine 1 mg/ml auto-injector (19 sources) alpha-Adrenergic Agonist, beta-Adrenergic Agonist, Catecholamine Start: [...] before bedtime. 05/30/2024 08/16/2024 Discontinued (Therapy completed) hydrOXYzine hydrochloride 25 mg oral tablet (11 sources) Antihistamine Start: 12-15-2023 End: 08-16-2024 take 1-2 tablets by mouth every eight hours for anxiety hydrOXYzine HCl (Atarax) 25 MG tablet Indications: Depression with anxiety Take 1-2 tablets (25-50 mg) by mouth every 8 (eight) hours if needed for anxiety for up to 10 days 60 tablet 12/15/2023 08/16/2024 Discontinued (Therapy completed) ipratropium bromide 0.2 mg/ml inhalation solution (8 sources) Anticholinergic Start: 09-27-2024 ipratropium (Atrovent) 0.02 % nebulizer solution 2.5 mL inhaled via nebulizer every 8 hours As Needed for shortness of breath or wheezing 09/27/2024 Active polyethylene glycol 3350 58908 mg powder for oral solution (3 sources) Osmotic Laxative Start: 05-31-2024 End: 05-31-2024 take 17 g by mouth once polyethylene glycol, PEG, 3350 (Glycolax) 17 GM/SCOOP powder Indications: Colonoscopy Take 238 g by mouth 1 (one) time for 1 dose Take as detailed from clinic hand out for colonoscopy prep 238 g 05/31/2024 05/31/2024 Active predniSONE 20 mg oral tablet (12 sources) Start: 11-16-2024 End: 11-21-2024 take 1 tablet by mouth in the morning predniSONE (Deltasone) 20 MG tablet Indications: COPD with acute exacerbation (CMS/HCC) Take 1 tablet (20 mg) by mouth in the morning and 1 tablet (20 mg) in the evening. Take with meals. Do all this for 5 days. Take with food. 10 tablet 11/16/2024 11/21/2024 Active Start: 05-30-2024 End: 08-16-2024 take 1 tablet by mouth in the morning predniSONE (Deltasone) 20 MG tablet Take 20 mg by mouth in the morning and 20 mg before bedtime. 05/30/2024 08/16/2024 Discontinued (Therapy completed) 10 actuat tiotropium 0.0025 mg/actuat inhalation spray (20 sources) Anticholinergic take 2 puff(s) by inhalation in the morning tiotropium (Spiriva Respimat) 2.5 MCG/ACT inhaler Inhale 2 puffs in the morning. Active take 1 capsule by inhalation onc e daily tiotropium (SPIRIVA) 18 mcg per inhalation capsule Place 1 capsule into inhaler and inhale once daily. Active triamcinolone acetonide 0.055 mg/actuat metered dose nasal spray (20 sources) Corticosteroid take 2 spray(s) nasal route in the morning triamcinolone (Nasacort) 55 MCG/ACT nasal inhaler Administer 2 sprays into each nostril in the morning. Active Completed/Discontinued Medications Medication Drug Class(es) Dates Sig (Normalized) Sig (Original) FLUoxetine 20 mg oral capsule (20 sources) Serotonin Reuptake Inhibitor Start: 02-02-2024 End: 05-16-2025 take 1 capsule by mouth once daily FLUoxetine (PROzac) 20 MG capsule Indications: Depression with anxiety Take 1 capsule (20 mg) by mouth Daily 90 capsule 1 08/16/2024 02/15/2025 Discontinued (Reorder) take 1 capsule by mouth once kathie ly FLUoxetine (PROzac) 10 mg capsule Take 10 mg by mouth daily. Active traZODone hydrochloride 50 mg oral tablet (20 sources) Serotonin Reuptake Inhibitor Start: 12-16-2023 End: 05-16-2025 take 1 tablet by mouth at bedtime traZODone (Desyrel) 50 MG tablet Indications: Insomnia, unspecified Take 1 tablet (50 mg) by mouth at bedtime 90 tablet 1 08/16/2024 02/15/2025 Discontinued (Reorder) traZODone (DESYR EL) 75 mg tablet Take 50 mg by mouth nightly. Active take 1 tablet by mouth at bedtim e traZODone (Desyrel) 50 MG tablet Take 50 mg by mouth at bedtime 0 Active Problems Active Problems Problem Classification [...] usually diagnosed in infancy, childhood, or adolescence (20 sources) Wilian de la Tourette's syndrome; 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: [Tourette's disorder] Onset: 10-30-2023 10-30-2023 Chronic Miscellaneous mental health disorders (2 sources) Primary insomnia; 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: [Primary insomnia] 08-16-2024 Chronic Occlusion or stenosis of precerebral arteries (20 sources) Occlusion and stenosis of bilateral carotid arteries; 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: [Internal carotid artery stenosis] Onset: 06-10-2020 Chronic Osteoarthritis (20 sources) Osteoarthritis; 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: [Unspecified osteoarthritis, unspecified site] Onset: 10-30-2023 10-30-2023 Chronic Other diseases of veins and lymphatics (20 sources) Calcified lymph nodes; 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: [Other specified noninfective disorders of lymphatic vessels and lymph nodes] Onset: 10-30-2023 10-30-2023 Chronic Other lower respiratory disease (4 sources) Shortness of breath; 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: [SHORTNESS OF BREATH] Onset: 09-25-2022 Episodic Other nutritional; endocrine; and metabolic disorders (20 sources) Body mass index 25-29 - overweight; 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: [Overweight] Onset: 12-15-2023 12-15-2023 Episodic Other upper respiratory disease (20 sources) Allergic rhinitis; 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: [Allergic rhinitis, unspecified] Onset: 10-30-2023 10-30-2023 Chronic Residual codes; unclassified (20 sources) Insomnia; 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: [Insomnia, unspecified] Onset: 10-30-2023 10-30-2023 Episodic Spondylosis; intervertebral disc disorders; other back problems (20 sources) Degeneration of cervical intervertebral disc; 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: [...] Classification Problem Date Documented Da te Episodic/Chronic Immunizations and screening for infectious disease (14 sources) Needs influenza immunization; 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: [Encounter for immunization] Onset: 08-16-2024 08-16-2024 Episodic Influenza (20 sources) Influenza; 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: [Influenza due to unidentified influenza virus with other respiratory manifestations] Onset: 10-30-2023 Resolved: 05-19-2024 10-30-2023 Episodic Mood disorders (8 sources) Mood disorders Onset: 02-07-2022 Resolved: 11-16-2024 02-07-2022 Other aftercare (8 sources) Long-term current use of inhaled steroid; 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: [residential (current) use of inhaled steroids] Onset: 11-16-2024 11-16-2024 Episodic Other and unspecified benign neoplasm (20 sources) Polyp of colon; 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: [Polyp of colon] Onset: 05-19-2024 Resolved: 05-19-2024 05-19-2024 Episodic Other connective tissue disease (20 sources) Pain in right hand; 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: [Pain in right hand] Onset: 05-19-2024 05-19-2024 Episodic Other lower respiratory disease (20 sources) Multiple nodules of lung; 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: [Other nonspecific abnormal finding of lung field] Onset: 10-30-2023 10-30-2023 Episodic Other nutritional; endocrine; and metabolic disorders (20 sources) Overweight in adulthood with body mass index of 25 or more but less than 30; 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: [Body mass index (BMI) 26.0-26.9, adult] Onset: 10-30-2023 10-30-2023 Episodic Other screening for suspected conditions (not mental disorders or infectious disease) (20 sources) Encounter for screening for malignant neoplasm of respiratory organs; 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: [Encounter for screening for malignant neoplasm of prostate] Onset: 03-07-2022 Episodic Other skin disorders (20 sources) Papule of skin; 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: [Other skin changes] Onset: 11-13-2023 Resolved: 11-13-2023 11-13-2023 Episodic Other upper respiratory disease (20 sources) Polyp of vocal cord ; 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] Onset: 10-30-2023 10-30-2023 Episodic Screening and history of mental health and substance abuse codes (15 sources) Personal history of nicotine dependence; 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: [Ex-smoker] Onset: 09-27-2022 08-16-2024 Episodic Viral infection (20 sources) Disease caused by 2019-nCoV; 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: [COVID-19] Onset: 07-23-2019 10-30-2023 Episodic Results Test Name Value Interpretation Reference Range Facility XR CHEST 2Von 11-16-2024 [place] [address] XRay Report Signed Patient: SAM KRAMER MR#: [id number] : 1960 Acct:[id number] Age/Sex: 64 / M ADM Date: 11/16/24 Loc: RAD Attending Dr: Azul Quezada NP Ordering Physician: Azul Quezada NP Date of Service: 11/16/24 Procedure(s): XR chest 2V Accession Number(s): [id number] cc: Azul Quezada NP [place] [id number] Patient Name: SAM KRAMER MRN: [id number] date: 1960 Sex: M Assigned Patient Location: RAD Current Patient Location: RAD Accession/Order Number: [id number] Exam Date: 11/16/2024 19:23 Report Date: 11/16/2024 19:24 At the request of: 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 NP Procedure: XR chest 2V XR chest 2V 11/16/2024 4:18 PM SIGNS AND SYMPTOMS: COPD with acute exacerbation J44.1 , cough, shortness of breath PROTOCOL: Frontal and lateral radiographs of the chest COMPARISON: 09/26/2024 FINDINGS: The trachea is midline. The heart and mediastinal structures are within normal limits. The lung parenchyma is clear. The bony thorax is intact. XR/XR chest 2V IMPRESSION: No acute cardiopulmonary pathology. Impression dictated by: Carlos Knight M.D.11/16/2024 7:24 PM Dictation Location: [place] [address] Electronically authenticated by: [id number] Y Date: 11/16/2024 19:24 Dictated By: Carlos Knight M.D. Signed By: 11/16/241925 DD/ 23 TD/TT: Cafe Worker: [facility] Radiology, Radiologist, MD - 11/16/2024 [place] [address] XRay Report Signed Patient: SMA KRAMER MR#: [id number] : 1960 Acct:[id number] Age/Sex: 64 / M ADM Date: 11/16/24 Loc: RAD Attending Dr: Azul Quezada NP Ordering Physician: Azul Quezada NP Date of Service: 11/16/24 Procedure(s): XR chest 2V Accession Number(s): [id number] cc: Azul Quezada NP The [address] [address] Patient Name: SAM KRAMER MRN: [facility]:[id number] date: 1960 Sex: M Assigned Patient Location: [facility] Current Patient Location: RAD Accession/Order Number: [id number] Exam Date: 11/16/2024 19:23 Report Date: 11/16/2024 19:24 At the request of: 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 NP Procedure: XR chest 2V XR chest 2V 11/16/2024 4:18 PM SIGNS AND SYMPTOMS: COPD with acute exacerbation J44.1 , cough, shortness of breath PROTOCOL: Frontal and lateral radiographs of the chest COMPARISON: 09/26/2024 FINDINGS: The trachea is midline. The heart and mediastinal structures are within normal limits. The lung parenchyma is clear. The bony thorax is intact. XR/XR chest 2V IMPRESSION: No acute cardiopulmonary pathology. Impression dictated by: Carlos Knight M.D.11/16/2024 7:24 PM Dictation Location: [place] [address] Electronically authenticated by: [id number] Y Date: 11/16/2024 19:24 Dictated By: Carlos Knight M.D. Signed By: 11/16/241925 DD/ 23 TD/TT: Cafe Worker: [facility] Study observation (narrative) [facility] XR CHEST 2VOrdered By: Radio logist Radiology on 11-16-2024 [facility] Work Phone: ALL HEMOGLOBINon 10-22-2024 Hemoglobin (Bld) [Mass/Vol] 14.8 g/dL 14.0 - 18.0 g/dL [facility] PSA TOTAL+% FREEon 4 % FREE PSA 26.0 % . [facility] Comment on above: The table below list [...] any other population of men. Performed at: [address] [id number] [employer]ating Range Tender: Mich Orozco PhD, Phone: [phone] Prostate specific Ag [Mass/Vol] 1.0 ng/mL 0.0 - 4.0 ng/mL [facility] Comment on above: [facility] ECLIA methodol ogy. According to the [place] [employer], Serum PSA should decrease and [...] malignant disease. PSA, FREE 0.26 ng/mL N/A [facility] e Comment on above: [facility] ECLIA methodol ogy. [facility] ALL CBC WITH AUTO DIFFon BASOPHILS ABSOLUTE AUTO 0.1 [facility] Basophils/100 WBC (Bld) 0.9 % 0.2 - 2.0 % [facility] Eosinophils/100 WBC (Bld) 0.1 % Low 0.9 - 7.0 % [facility] Erythrocyte distribution width (RBC) [Ratio] 12.8 % 11.0 - 15.0 % [facility] Hematocrit (Bld) [Volume fraction] 43.1 % 42.0 - 54.0 % [facility] Hemoglobin (Bld) [Mass/Vol] 13.9 g/dL Low 14.0 - 18.0 g/dL [facility] IMMATURE GRANULOCYTES ABS AUTO 0.03 [facility] Immature granulocytes/100 WBC (Bld) 0.3 % 0.0 - 0.5 % [facility] Interpretation and review of laboratory results Abnormal [facility] LYMPHOCYTES ABSOLUTE AUTO 1.2 [facility] Lymphocytes/100 WBC (Bld) 14 % Low 20.5 - 60.0 % [facility] MCH (RBC) [Entitic mass] 30.3 pg 25.9 - 34.0 pg [facility] MCHC (RBC) [Mass/Vol] 32.3 g/dL 29.9 - 35.2 g/dL [facility] MCV (RBC) [Entitic vol] 94.1 fL High 80.0 - 94.0 fL [facility] MONOCYTES ABSOLUTE AUTO 0.9 High [facility] Monocytes/100 WBC (Bld) 9.7 % 1.7 - 12.0 % [facility] NEUTROPHILS ABSOLUTE AUTO 6.5 [facility] Neutrophils/100 WBC (Bld) 75 % 43.0 - 75.0 % [facility] Platelet mean volume (Bld) [Entitic vol] 10.1 fL 9.5 - 13.5 fL [facility] EO # 0 [facility] PLT 326 [facility] RBC 4.58 Low [facility] WBC 8.7 [facility] UA (CLEAN/CATCH) MICROSC OPIC IF INDICATEon 05-31-2024 BILIRUBIN URINE Negative NEGATIVE [facility] BLOOD URINE Negative NEGATIVE [facility] Clarity (U) CLEAR CLEAR [facility] Color (U) LT. YELLOW YELLOW [facility] GLUCOSE URINE UA Negative NEGATIVE mg/dL [facility] Interpretation and review of laboratory results Abnormal [facility] Ketones Ql (U) Negative NEGATIVE mg/dL [facility] Leukocyte esterase Test strip Ql (U) SMALL Abnormal NEGATIVE [facility] NITRITE URINE Negative NEGATIVE [facility] pH (U) 6.0 [pH] 5.0 - 9.0 [facility] PROTEIN URINE Negative NEG/TRACE mg/dL [facility] SPECIFIC GRAVITY URINE 1.015 1.005 - 1.025 [facility] URINE MICROSCOPIC INDICATED YES [facility] UROBILINOGEN URINE 0.2 EU/dL 0.2 - 1.0 EU/dL [facility] BNPon 09-25-2022 Natriuretic peptide B (Bld) [Mass/Vol] 42.0 pg/mL Normal <=900.0 [facility] Comment on above: Performed By: #### I NFLUAB #### [facility] [address] [place] [address] Dr. Tom Dotson CBC AUTO DIFFon 09-25-2022 BASO # 0.1 103/ul Normal 0.0-0.1 [facility] Comment on above: Performed By: #### C BC #### [facility] [address] [place] [address] Dr. Tom Dotson Basophils/100 WBC (Bld) 0.8 % Normal 0.2-2.0 [facility] Comment on above: Performed By: #### C BC #### [facility] [address] [place] [address] Dr. Tom Dotson EO # 0.0 103/ul Normal 0.0-0.7 [facility] Comment on above: Performed By: #### C BC #### [facility] [address] [place] [address] Dr. Tom Dotson Eosinophils/100 WBC (Bld) 0.0 % Critically low 0.9-7.0 [facility] Comment on above: Performed By: #### C BC #### [facility] [address] [place] [address] Dr. Tom Dotson Erythrocyte distribution width (RBC) [Ratio] 12.4 % Normal 11.0-15.0 [facility] Comment on above: Performed By: #### C BC #### [facility] [address] [place] [address] Dr. Tom Dotson Hematocrit (Bld) [Volume fraction] 43.6 % Normal 42.0-54.0 [facility] Comment on above: Performed By: #### C BC #### [facility] [address] [place] [address] Dr. Tom Dotson Hemoglobin (Bld) [Mass/Vol] 14.3 g/dL Normal 14.0-18.0 [facility] Comment on above: Performed By: #### C BC #### [facility] [address] [place] [address] Dr. Tom Dotson IG # 0.02 10e3/ul Normal 0.00-0.03 [facility] Comment on above: Performed By: #### C BC #### [facility] [address] [place] [address] Dr. Tom Dotson IG % 0.3 % Normal 0.0-0.5 [facility] Comment on above: Performed By: #### C BC #### [facility] [address] [place] [address] Dr. Tom Dotson LYMPH # 1.4 103/ul Normal 1.2-3.8 [facility] Comment on above: Performed By: #### C BC #### [facility] [address] [place] [address] Dr. Tom Dotson Lymphocytes/100 WBC (Bld) 17.3 % Critically low 20.5-60.0 [facility] Comment on above: Performed By: #### C BC #### [facility] [address] [place] [address] Dr. Tom Dotson MANUAL DIFF REQ NO Normal [facility] Comment on above: Performed By: #### C BC #### [facility] [address] [place] [address] Dr. Tom Dotson MCH (RBC) [Entitic mass] 29.8 pg Normal 25.9-34.0 [facility] Comment on above: Performed By: #### C BC #### [facility] [address] [place] [address] Dr. Tom Dotson MCHC (RBC) [Mass/Vol] 32.8 g/dL Normal 29.9-35.2 [facility] Comment on above: Performed By: #### C BC #### [facility] [address] [place] [address] Dr. Tom Dotson MCV (RBC) [Entitic vol] 90.8 fL Normal 80.0-94.0 [facility] Comment on above: Performed By: #### C BC #### [facility] [address] [place] [address] Dr. Tom Dotson MONO # 0.7 103/ul Normal 0.3-0.8 [facility] Comment on above: Performed By: #### C BC #### [facility] [address] [place] [address] Dr. Tom Dotson Monocytes/100 WBC (Bld) 9.4 % Normal 1.7-12.0 [facility] Comment on above: Performed By: #### C BC #### [facility] [address] [place] [address] Dr. Tom Dotson NEUT # 5.7 103/ul Normal 1.4-6.5 [facility] Comment on above: Performed By: #### C BC #### [facility] [address] [place] [address] Dr. Tom Dotson Neutrophils/100 WBC (Bld) 72.2 % Normal 43.0-75.0 [facility] Comment on above: Performed By: #### C BC #### [facility] [address] [place] [address] Dr. Tom Dotson Platelet mean volume (Bld) [Entitic vol] 9.6 fL Normal 9.5-13.5 [facility] Comment on above: Performed By: #### C BC #### [facility] [address] [place] [address] Dr. Tom Dotson PLT 331 103/ul Normal 150-450 [facility] Comment on above: Performed By: #### C BC #### [facility] [address] [place] [address] Dr. Tom Dotson RBC 4.80 106/ul Normal 4.70-6.10 [facility] Comment on above: Performed By: #### C BC #### [facility] [address] [place] [address] Dr. Tom Dotson WBC 7.8 103/ul Normal 4.0-11.0 [facility] Comment on above: Performed By: #### C BC #### [facility] [address] [place] [address] Dr. Tom Dotson CULTURE BLOODon 09-25-2022 Microscopic examination of blood, culture Culture Observations: NO GROWTH AT 5 DAYS. Normal [facility] Comment on above: Performed By: #### I NFLUAB #### [facility] [address] [place] [address] Dr. Tom Dotson Microscopic examination of blood, culture Culture Observations: NO GROWTH AT 5 DAYS. Normal [facility] Comment on above: Performed By: #### I NFLUAB #### [facility] [address] [place] [address] Dr. Tom Dotson [facility] SARS-CoV-2 (COVID-19) RNA OLGA+probe Ql (Unsp spec) Not detected Normal NOT DETECTED [facility] Comment on above: Result Comment: [...] for this test is supported by the Chemistry Quality Control Technician of Health and Human Service's declaration that [...] used). Performed By: #### C VDTBH #### [facility] [address] [place] [address] Dr. Tom Dotson INFLUENZA A AND B [facility] 09-25 [facility] SEE BELOW Normal [facility] Comment on above: Result Comment: Nega tive for Flu A protein angiten. Infection due to Flu A cannot be ruled out. Flu A angiten in the sample may be below the detection limit of the test. Performed By: #### I NFLUAB #### [facility] [address] [place] [address] Dr. [facility] Normal [facility] Comment on above: Result Comment: Nega tive for Flu B protein antigen. Infection due to Flu B cannot be ruled out. Flu B antigen in the sample may be below the detection limit of the test. Performed By: #### I NFLUAB #### [facility] [address] [place] [address] Dr. Tom Dotson INFLUENZA A AG Negative Normal NEGATIVE SEE COMMENT [facility] Comment on above: Performed By: #### I NFLUAB #### [facility] [address] [place] [address] Dr. Tom Dotson INFLUENZA B AG Negative Normal NEGATIVE SEE COMMENT [facility] Comment on above: Performed By: #### I NFLUAB #### [facility] [address] [place] [address] Dr. Tom Dotson LACTATE/LACTIC ACIDon 2022 Lactate [Moles/Vol] 0.7 mmol/L Normal 0.4-1.9 [facility] Comment on above: Performed By: #### L ACT #### [facility] [address] [address] [address] Tom Dotson PROF CHEM 8 (BAS METB)on Anion gap [Moles/Vol] 9.3 mmol/L Normal [facility] Comment on above: Performed By: #### H STROPN, BMP, BNP #### [facility] [address] [place] [address] Dr. Tom Dotson Calcium [Mass/Vol] 8.8 mg/dL Normal 8.5-10.1 [facility] Comment on above: Performed By: #### H STROPN, BMP, BNP #### [facility] [address] [place] [address] Dr. Tom Dotson Chloride [Moles/Vol] 103 mmol/L Normal 98-107 [facility] Comment on above: Performed By: #### H STROPN, BMP, BNP #### [facility] [address] [place] [address] Dr. Tom Dotson CO2 [Moles/Vol] 31.1 mmol/L Normal 21.0-32.0 [facility] Comment on above: Performed By: #### H STROPN, BMP, BNP #### [facility] [address] [place] [address] Dr. Tom Dotson Creatinine [Mass/Vol] 0.77 mg/dL Normal 0.70-1.30 [facility] Comment on above: Performed By: #### H STROPN, BMP, BNP #### [facility] [address] [place] [address] Dr. Tom Dotson EGFR-AF GUYANESE >60 Normal >=60 [facility] Comment on above: Performed By: #### H STROPN, BMP, BNP #### [facility] [address] [place] [address] Dr. Tom Dotson EGFR-NON AF GUYANESE >60 Normal >=60 [facility] Comment on above: Performed By: #### H STROPN, BMP, BNP #### [facility] [address] [place] [address] Dr. Tom Dotson Glucose [Mass/Vol] 98 mg/dL Normal 74-106 [facility] Comment on above: Performed By: #### H STROPN, BMP, BNP #### [facility] [address] [address] [address] Tom Dotson Potassium [Moles/Vol] 4.4 mmol/L Normal 3.5-5.1 [facility] Comment on above: Performed By: #### H STROPN, BMP, BNP #### [facility] [address] [address] [address] Tom Dotson Sodium [Moles/Vol] 139 mmol/L Normal 136-145 [facility] Comment on above: Performed By: #### H STROPN, BMP, BNP #### [facility] [address] [place] [address] Dr. Tom Dotson Urea nitrogen [Mass/Vol] 13.0 mg/dL Normal 7.0-18.0 [facility] Comment on above: Performed By: #### H STROPN, BMP, BNP #### [facility] [address] [place] [address] Dr. Tom Dotson Urea nitrogen/Creatinine [Mass ratio] 16.9 mg/mg Normal [facility] Comment on above: Performed By: #### H STROPN, BMP, BNP #### [facility] [address] [place] [address] Dr. Tom Dotson TROPONIN, HIGH SENSITIVITYon 09-25-2022 HSTROP 7.4 pg/mL Normal 4.0-76.1 [facility] Comment on above: Result Comment: CUT- OFF POINTS HAVE BEEN ESTABLISHED BASED ON THE FOURTH UNIVERSAL DEFINITIONS OF MYOCARDIAL INFARCTION. THE UPPER REFERENCE LIMIT (URL) OF TROPONIN, DEFINED THE 99TH PERCENTILE OF cTnI DISTRIBUTION IN A REFERENCE POPULATION, HAS BEEN CONFIRMED THE DECISION THRESHOLD FOR PR DIAGNOSIS. Performed By: #### I NFLUAB #### [facility] [address] [place] [address] Dr. Tom Dotson XR CHEST 1 Von [...] YARIEL OLSON Date: 2022-09-25 10:55 Normal [facility] ASPERGILLUS AB, QUANTITATIVE DIDon 04-20-2022 Aspergillus flavus Negative Normal Neg:<1:1 [facility] Comment on above: Performed By: #### A SPDID #### [facility] [address] [place] [address] Dr. Tom Dotson Aspergillus fumigatus Negative Normal Neg:<1:1 [facility] Comment on above: Performed By: #### A SPDID #### [facility] [address] [place] [address] Dr. Tom Dotson Aspergillus niger Negative Normal Neg:<1:1 [facility] Comment on above: Performed By: #### A SPDID #### [facility] [address] [address] [address] Tom Dotson ANTI NEUTROPHIL CYTOPLASMIC AB (ANCA) PRon 04-19-2022 Anti-MPO Antibodies <0.2 Normal 0.0-0.9 [facility] Comment on above: Result Comment: Perf ormed at: BN Performed By: #### C BC #### [facility] [address] [place] [address] Dr. Tom Dotson Anti-PR3 Antibodies <0.2 Normal 0.0-0.9 [facility] Comment on above: Result Comment: Perf ormed at: BN Performed By: #### C BC #### [facility] [address] [place] [address] Dr. Tom Dotson Atypical pANCA <1:20 Normal Neg:<1:20 [facility] Comment on above: Result Comment: The atypical pANCA pattern has been observed in a significant percentage of patients with ulcerative colitis, primary sclerosing cholangitis and autoimmune hepatitis. Performed at: CB Performed By: #### C BC #### [facility] [address] [address] [address] Tom Dotson Cytoplasmic (C-ANCA) <1:20 Normal Neg:<1:20 [facility] Comment on above: Result Comment: Perf ormed at: CB Performed By: #### C BC #### [facility] [address] [place] [address] Dr. Tom Dotson Perinuclear (P-ANCA) <1:20 Normal Neg:<1:20 [facility] Comment on above: Result Comment: The presence of positive fluorescence exhibiting P-ANCA or C-ANCA patterns alone is not specific for the diagnosis of Nevin's Granulomatosis (WG) or microscopic polyangiitis. Decisions about treatment should not be based solely on ANCA IFA results. The [employer] ANCA [employer] Consensus recommends follow up testing of positive sera with both NM-3 and MPO-ANCA enzyme immunoassays. As many as 5% serum samples are positive only by EIA. Ref. AM J Clin Pathol 1999;111:507-513. Performed at: CB Performed By: #### C BC #### [facility] [address] [place] [address] Dr. Tom Dotson IMMUNOGLOBULIN E, TOTALon Immunoglobulin E, Total 68 IU/mL Normal 6-495 [facility] Comment on above: Performed By: #### I GETOT #### [facility] [address] [place] [address] Dr. Tom Dotson ANGIOTENSION-CONVERTING ENZY ME (ELINOR)on 04-17-2022 ELINOR 28 U/L Normal 14-82 [facility] Comment on above: Performed By: #### A NGIOC #### [facility] [address] [place] [address] Dr. Tom Dotson CBC AUTO DIFFon 04-16-2022 BASO # 0.1 103/ul Normal 0.0-0.1 [facility] Comment on above: Performed By: #### I NFLUAB #### [facility] [address] [place] [address] Dr. Tom Dotson Basophils/100 WBC (Bld) 1.0 % Normal 0.2-2.0 [facility] Comment on above: Performed By: #### I NFLUAB #### [facility] [address] [place] [address] Dr. Tom Dotson EO # 0.0 103/ul Normal 0.0-0.7 [facility] Comment on above: Performed By: #### I NFLUAB #### [facility] [address] [place] [address] Dr. Tom Dotson Eosinophils/100 WBC (Bld) 0.1 % Critically low 0.9-7.0 [facility] Comment on above: Performed By: #### I NFLUAB #### [facility] [address] [place] [address] Dr. Tom Dotson Erythrocyte distribution width (RBC) [Ratio] 12.9 % Normal 11.0-15.0 [facility] Comment on above: Performed By: #### I NFLUAB #### [facility] [address] [place] [address] Dr. Tom Dotson Hematocrit (Bld) [Volume fraction] 44.8 % Normal 42.0-54.0 [facility] Comment on above: Performed By: #### I NFLUAB #### [facility] [address] [place] [address] Dr. Tom Dotson Hemoglobin (Bld) [Mass/Vol] 15.0 g/dL Normal 14.0-18.0 [facility] Comment on above: Performed By: #### I NFLUAB #### [facility] [address] [place] [address] Dr. Tom Dotson IG # 0.02 10e3/ul Normal 0.00-0.03 [facility] Comment on above: Performed By: #### I NFLUAB #### [facility] [address] [place] [address] Dr. Tom Dotson IG % 0.2 % Normal 0.0-0.5 [facility] Comment on above: Performed By: #### I NFLUAB #### [facility] [address] [place] [address] Dr. Tom Dotson LYMPH # 1.4 103/ul Normal 1.2-3.8 [facility] Comment on above: Performed By: #### I NFLUAB #### [facility] [address] [place] [address] Dr. Tom Dotson Lymphocytes/100 WBC (Bld) 17.6 % Critically low 20.5-60.0 [facility] Comment on above: Performed By: #### I NFLUAB #### [facility] [address] [place] [address] Dr. Tom Dotson MANUAL DIFF REQ NO Normal [facility] Comment on above: Performed By: #### I NFLUAB #### [facility] [address] [place] [address] Dr. Tom Dotson MCH (RBC) [Entitic mass] 30.9 pg Normal 25.9-34.0 [facility] Comment on above: Performed By: #### I NFLUAB #### [facility] [address] [place] [address] Dr. Tom Dotson MCHC (RBC) [Mass/Vol] 33.5 g/dL Normal 29.9-35.2 [facility] Comment on above: Performed By: #### I NFLUAB #### [facility] [address] [place] [address] Dr. Tom Dotson MCV (RBC) [Entitic vol] 92.2 fL Normal 80.0-94.0 [facility] Comment on above: Performed By: #### I NFLUAB #### [facility] [address] [place] [address] Dr. Tom Dotson MONO # 0.8 103/ul Normal 0.3-0.8 [facility] Comment on above: Performed By: #### I NFLUAB #### [facility] [address] [place] [address] Dr. Tom Dotson Monocytes/100 WBC (Bld) 9.6 % Normal 1.7-12.0 [facility] Comment on above: Performed By: #### I NFLUAB #### [facility] [address] [place] [address] Dr. Tom Dotson NEUT # 5.9 103/ul Normal 1.4-6.5 [facility] Comment on above: Performed By: #### I NFLUAB #### [facility] [address] [place] [address] Dr. Tom Dotson Neutrophils/100 WBC (Bld) 71.5 % Normal 43.0-75.0 [facility] Comment on above: Performed By: #### I NFLUAB #### [facility] [address] [place] [address] Dr. Tom Dotson Platelet mean volume (Bld) [Entitic vol] 9.9 fL Normal 9.5-13.5 [facility] Comment on above: Performed By: #### I NFLUAB #### [facility] [address] [place] [address] Dr. Tom Dotson PLT 325 103/ul Normal 150-450 [facility] Comment on above: Performed By: #### I NFLUAB #### [facility] [address] [place] [address] Dr. Tom Dotson RBC 4.86 106/ul Normal 4.70-6.10 [facility] Comment on above: Performed By: #### I NFLUAB #### [facility] [address] [place] [address] Dr. Tom Dotson WBC 8.2 103/ul Normal 4.0-11.0 [facility] Comment on above: Performed By: #### I NFLUAB #### [facility] [address] [place] [address] [address] LUNG CANCER SCREENINGon [...] YARIEL OLSON Date: 2022-04-10 22:57 Normal [facility] CBC AUTO DIFFon 03-06-2022 BASO # 0.1 103/ul Normal 0.0-0.1 [facility] Comment on above: Performed By: #### C BC #### [facility] [address] [address] [address] Tom Dotson Basophils/100 WBC (Bld) 1.0 % Normal 0.2-2.0 [facility] Comment on above: Performed By: #### C BC #### [facility] [address] [address] [address] Tom Dotson EO # 2.5 103/ul Critically high 0.0-0.7 [facility] Comment on above: Performed By: #### C BC #### [facility] [address] [address] [address] Tom Dotson Eosinophils/100 WBC (Bld) 29.1 % Critically high 0.9-7.0 [facility] Comment on above: Performed By: #### C BC #### [facility] [address] [address] [address] Tom Dotson Erythrocyte distribution width (RBC) [Ratio] 12.8 % Normal 11.0-15.0 [facility] Comment on above: Performed By: #### C BC #### [facility] [address] [place] [address] Dr. Tom Dotson Hematocrit (Bld) [Volume fraction] 46.6 % Normal 42.0-54.0 [facility] Comment on above: Performed By: #### C BC #### [facility] [address] [place] [address] Dr. Tom Dotson Hemoglobin (Bld) [Mass/Vol] 14.4 g/dL Normal 14.0-18.0 [facility] Comment on above: Performed By: #### C BC #### [facility] [address] [place] [address] Dr. Tom Dotson IG # 0.04 10e3/ul Critically high 0.00-0.03 [facility] Comment on above: Performed By: #### C BC #### [facility] [address] [place] [address] Dr. Tom Dotson IG % 0.5 % Normal 0.0-0.5 [facility] Comment on above: Performed By: #### C BC #### [facility] [address] [place] [address] Dr. Tom Dotson LYMPH # 1.3 103/ul Normal 1.2-3.8 [facility] Comment on above: Performed By: #### C BC #### [facility] [address] [place] [address] Dr. Tom Dotson Lymphocytes/100 WBC (Bld) 15.1 % Critically low 20.5-60.0 [facility] Comment on above: Performed By: #### C BC #### [facility] [address] [place] [address] Dr. Tom Dotson MANUAL DIFF REQ NO Normal [facility] Comment on above: Performed By: #### C BC #### [facility] [address] [place] [address] Dr. Tom Dotson MCH (RBC) [Entitic mass] 29.5 pg Normal 25.9-34.0 [facility] Comment on above: Performed By: #### C BC #### [facility] [address] [place] [address] Dr. Tom Dotson MCHC (RBC) [Mass/Vol] 30.9 g/dL Normal 29.9-35.2 [facility] Comment on above: Performed By: #### C BC #### [facility] [address] [address] [address] Tom Dotson MCV (RBC) [Entitic vol] 95.5 fL Critically high 80.0-94.0 [facility] Comment on above: Performed By: #### C BC #### [facility] [address] [address] [address] Tom Dotson MONO # 0.8 103/ul Normal 0.3-0.8 [facility] Comment on above: Performed By: #### C BC #### [facility] [address] [address] [address] Tom Dotson Monocytes/100 WBC (Bld) 9.5 % Normal 1.7-12.0 [facility] Comment on above: Performed By: #### C BC #### [facility] [address] [place] [address] Dr. Tom Dotson NEUT # 3.9 103/ul Normal 1.4-6.5 [facility] Comment on above: Performed By: #### C BC #### [facility] [address] [place] [address] Dr. Tom Dotson Neutrophils/100 WBC (Bld) 44.8 % Normal 43.0-75.0 [facility] Comment on above: Performed By: #### C BC #### [facility] [address] [address] [address] Tom Dotson Platelet mean volume (Bld) [Entitic vol] 10.2 fL Normal 9.5-13.5 [facility] Comment on above: Performed By: #### C BC #### [facility] [address] [place] [address] Dr. Tom Dotson PLT 328 103/ul Normal 150-450 [facility] Comment on above: Performed By: #### C BC #### [facility] [address] [address] [address] Tom Dotson RBC 4.88 106/ul Normal 4.70-6.10 [facility] Comment on above: Performed By: #### C BC #### [facility] [address] [place] [address] Dr. Tom Dotson WBC 8.7 103/ul Normal 4.0-11.0 [facility] Comment on above: Performed By: #### C BC #### [facility] [address] [place] [address] Dr. Tom Dotson DIFFERENTIAL MANUALon 2021 ATYPICAL LYMPH # 0.09 103/ul Normal [facility] Comment on above: Performed By: #### D IFF #### [facility] [address] [place] [address] Dr. Tom Dotson ATYPICAL LYMPH % 1 % Normal [facility] Comment on above: Performed By: #### D IFF #### [facility] [address] [place] [address] Dr. Tom Dotson BAND # 0.0 103/ul Normal 0.0-0.3 [facility] Comment on above: Performed By: #### D IFF #### [facility] [address] [place] [address] Dr. Tom Dotson BAND % 0 % Normal 0-5 [facility] Comment on above: Performed By: #### D IFF #### [facility] [address] [place] [address] Dr. Tom Dotson BASOM # 0.00 103/ul Normal 0.00-0.10 [facility] Comment on above: Performed By: #### D IFF #### [facility] [address] [place] [address] Dr. Tom Dotson BASOM % 0.0 % Critically low 0.2-2.0 [facility] Comment on above: Performed By: #### D IFF #### [facility] [address] [place] [address] Dr. Tom Dotson BLAST # Normal [facility] Comment on above: Performed By: #### D IFF #### [facility] [address] [place] [address] Dr. Tom Dotson BLAST % Normal [facility] Comment on above: Performed By: #### D IFF #### [facility] [address] [place] [address] Dr. Tom Dotson CORRECTED WBC Normal 4.0-11.0 [facility] Comment on above: Performed By: #### D IFF #### [facility] [address] [place] [address] Dr. Tom Dotson EOS # 1.22 103/ul Critically high 0.00-0.70 [facility] Comment on above: Performed By: #### D IFF #### [facility] [address] [place] [address] Dr. Tom Dotson EOS% 14.0 % Critically high 0.9-7.0 [facility] Comment on above: Performed By: #### D IFF #### [facility] [address] [place] [address] Dr. Tom Dotson LYMPHM # 1.91 103/ul Normal 1.20-3.80 [facility] Comment on above: Performed By: #### D IFF #### [facility] [address] [place] [address] Dr. Tom Dotson LYMPHM% 22.0 % Normal 20.5-60.0 [facility] Comment on above: Performed By: #### D IFF #### [facility] [address] [place] [address] Dr. Tom Dotson METAMYELOCYTE # Normal [facility] Comment on above: Performed By: #### D IFF #### [facility] [address] [place] [address] Dr. Tom Dotson METAMYELOCYTE % Normal [facility] Comment on above: Performed By: #### D IFF #### [facility] [address] [place] [address] Dr. Tom Dotson MONOM# 0.52 103/ul Normal 0.30-0.80 [facility] Comment on above: Performed By: #### D IFF #### [facility] [address] [place] [address] Dr. Tom Dotson MONOM% 6.0 % Normal 1.7-12.0 [facility] Comment on above: Performed By: #### D IFF #### [facility] [address] [place] [address] Dr. Tom Dotson MYELOCYTE # Normal [facility] Comment on above: Performed By: #### D IFF #### [facility] [address] [place] [address] Dr. Tom Dotson MYELOCYTE % Normal [facility] Comment on above: Performed By: #### D IFF #### [facility] [address] [place] [address] Dr. Tom Dotson NRBC Normal [facility] Comment on above: Performed By: #### D IFF #### [facility] [address] [place] [address] Dr. Tom Dotson SEG # 4.96 103/ul Normal 1.40-6.50 [facility] Comment on above: Performed By: #### D IFF #### [facility] [address] [place] [address] Dr. Tom Dotson SEG % 57.0 % Normal 43.0-75.0 [facility] Comment on above: Performed By: #### D IFF #### [facility] [address] [place] [address] Dr. Tom Dotson WBC 8.7 103/ul Normal 4.0-11.0 [facility] Comment on above: Performed By: #### D IFF #### [facility] [address] [place] [address] Dr. Tom Dotson LIPID PROFILEon 03-06-2022 CHOL-HDL RATIO NORM SEE BELOW Normal [facility] Comment on above: Result Comment: 3.3 - 4.4 LOW RISK 4.4 - 7.1 AVERAGE RISK 7.1 - 11.0 MODERATE RISK >11.0 HIGH RISK Performed By: #### I NFLUAB #### [facility] [address] [place] [address] Dr. Tom Dotson Cholesterol [Mass/Vol] 135 mg/dL Normal <=200 [facility] Comment on above: Performed By: #### I NFLUAB #### [facility] [address] [address] [address] Tom Dotson Cholesterol in HDL [Mass/Vol] 51 mg/dL Normal 40-60 [facility] Comment on above: Performed By: #### I NFLUAB #### [facility] [address] [address] [address] Tom Dotson Cholesterol in LDL [Mass/Vol] 74.4 mg/dL Normal [facility] Comment on above: Performed By: #### I NFLUAB #### [facility] [address] [address] [address] Tom Dotson Cholesterol.total/Ch olesterol in HDL [Mass ratio] 2.6 {ratio} Normal [facility] Comment on above: Performed By: #### I NFLUAB #### [facility] [address] [address] [address] Tom Dotson HDL NORMAL > or = 60 mg/dl - LOW CARDIOVASCULAR RISK <40 mg/dl - HIGH CARDIOVASCULAR RISK Normal [facility] Comment on above: Performed By: #### I NFLUAB #### [facility] [address] [address] [address] Tom Dotson LDL CALC NORMAL SEE BELOW Normal [facility] Comment on above: Result Comment: <100 mg/dl OPTIMAL 100 - 129 mg/dl NEAR OR ABOVE OPTIMAL 130 - 159 mg/dl BORDERLINE HIGH 160 - 189 mg/dl HIGH >190 mg/dl VERY HIGH Performed By: #### I NFLUAB #### [facility] [address] [address] [address] Tom Dotson Triglyceride [Mass/Vol] 48 mg/dL Normal <=150 [facility] Comment on above: Performed By: #### I NFLUAB #### [facility] Laboratory [address] [address] [address] Tom Dotson VLDL CALC 9.6 mg/dL Normal [facility] Comment on above: Performed By: #### I NFLUAB #### [facility] [address] [address] [address] Tom Dotson PROF 14(COMP METB)on 022 Albumin [Mass/Vol] 3.8 g/dL Normal 3.4-5.0 [facility] Comment on above: Performed By: #### I NFLUAB #### [facility] [address] [place] [address] Dr. Tom Dotson Albumin/Globulin [Mass ratio] 1.1 {ratio} Normal [facility] Comment on above: Performed By: #### I NFLUAB #### [facility] [address] [place] [address] Dr. Tom Dotson ALP [Catalytic activity/Vol] 62 U/L Normal 46-116 [facility] Comment on above: Performed By: #### I NFLUAB #### [facility] [address] [place] [address] Dr. Tom Dotson ALT [Catalytic activity/Vol] 25 U/L Normal 16-63 [facility] Comment on above: Performed By: #### I NFLUAB #### [facility] [address] [place] [address] Dr. Tom Dotson Anion gap [Moles/Vol] 9.8 mmol/L Normal [facility] Comment on above: Performed By: #### I NFLUAB #### [facility] [address] [place] [address] Dr. Tom Dotson AST [Catalytic activity/Vol] 15 U/L Normal 15-37 [facility] Comment on above: Performed By: #### I NFLUAB #### [facility] [address] [place] [address] Dr. Tom Dotson Bilirubin [Mass/Vol] 0.9 mg/dL Normal 0.2-1.0 [facility] Comment on above: Performed By: #### I NFLUAB #### [facility] [address] [place] [address] Dr. Tom Dotson Calcium [Mass/Vol] 8.8 mg/dL Normal 8.5-10.1 [facility] Comment on above: Performed By: #### I NFLUAB #### [facility] [address] [address] [address] Tom Dotson Chloride [Moles/Vol] 102 mmol/L Normal 98-107 [facility] Comment on above: Performed By: #### I NFLUAB #### [facility] [address] [address] [address] Tom Dotson CO2 [Moles/Vol] 30.5 mmol/L Normal 21.0-32.0 [facility] Comment on above: Performed By: #### I NFLUAB #### [facility] [address] [address] [address] Tom Dotson Creatinine [Mass/Vol] 0.95 mg/dL Normal 0.70-1.30 [facility] Comment on above: Performed By: #### I NFLUAB #### [facility] [address] [place] [address] Dr. Tom Dotson EGFR-AF GUYANESE >60 Normal >=60 [facility] Comment on above: Performed By: #### I NFLUAB #### [facility] [address] [place] [address] Dr. Tom Dotson EGFR-NON AF GUYANESE >60 Normal >=60 [facility] Comment on above: Performed By: #### I NFLUAB #### [facility] [address] [place] [address] Dr. Tom Dotson Globulin (S) [Mass/Vol] 3.4 g/dL Normal [facility] Comment on above: Performed By: #### I NFLUAB #### [facility] [address] [place] [address] Dr. Tom Dotson Glucose [Mass/Vol] 85 mg/dL Normal 74-106 [facility] Comment on above: Performed By: #### I NFLUAB #### [facility] [address] [address] [address] Tom Dotson Potassium [Moles/Vol] 4.3 mmol/L Normal 3.5-5.1 [facility] Comment on above: Performed By: #### I NFLUAB #### [facility] [address] [address] [address] Tom Dotson Protein [Mass/Vol] 7.2 g/dL Normal 6.4-8.2 [facility] Comment on above: Performed By: #### I NFLUAB #### [facility] [address] [address] [address] Tom Dotson Sodium [Moles/Vol] 138 mmol/L Normal 136-145 [facility] Comment on above: Performed By: #### I NFLUAB #### [facility] [address] [address] [address] Tom Dotson Urea nitrogen [Mass/Vol] 14.0 mg/dL Normal 7.0-18.0 [facility] Comment on above: Performed By: #### I NFLUAB #### [facility] [address] [address] [address] Tom Dotson Urea nitrogen/Creatinine [Mass ratio] 14.7 mg/mg Normal [facility] Comment on above: Performed By: #### I NFLUAB #### [facility] [address] [address] [address] Tom Dotson TSHon 03-06-2022 TSH 1.010 uIU/mL Normal 0.358-3.740 [facility] Comment on above: Performed By: #### I NFLUAB #### [facility] [address] [address] [address] Tom Dotson Hepatic Panelon 09-02-2019 Albumin [Mass/Vol] 3.2 g/dL Normal 3.2-5.5 [facility] Comment on above: Performed By: #### H EPATIC, LIPID, TSH3 wRFLX, [id number] #### [facility] [address] [place] [address] [place] Albumin/Globulin [Mass ratio] 1.1 {ratio} Normal [facility] Comment on above: Performed By: #### H EPATIC, LIPID, TSH3 wRFLX, [id number] #### [facility] [address] [id number] [place] ALP [Catalytic activity/Vol] 38 U/L Normal 32-92 [facility] Comment on above: Performed By: #### H EPATIC, LIPID, TSH3 wRFLX, [id number] #### [facility] [address] [place] [address] ALT [Catalytic activity/Vol] 14 U/L Normal 10-60 [facility] Comment on above: Performed By: #### H EPATIC, LIPID, TSH3 wRFLX, [id number] #### [address] AST [Catalytic activity/Vol] 13 U/L Normal 10-42 [facility] Comment on above: Performed By: #### H EPATIC, LIPID, TSH3 wRFLX, [id number] #### [address] Bilirubin [Mass/Vol] 0.9 mg/dL Normal 0.3-1.2 [facility] Comment on above: Performed By: #### H EPATIC, LIPID, TSH3 wRFLX, [id number] #### [address] Bilirubin,Indirect 0.8 mg/dL Normal [facility] Comment on above: Performed By: #### H EPATIC, LIPID, TSH3 wRFLX, [id number] #### [address] Bilirubin.direct [Mass/Vol] 0.1 mg/dL Normal 0.0-0.4 [facility] Comment on above: Performed By: #### H EPATIC, LIPID, TSH3 wRFLX, [id number] #### [facility] [address] [place] [address] Globulin (S) [Mass/Vol] 2.9 g/dL Normal [facility] Comment on above: Performed By: #### H EPATIC, LIPID, TSH3 wRFLX, [id number] #### [address] Protein [Mass/Vol] 6.1 g/dL Normal 6.1-7.9 [facility] Comment on above: Performed By: #### H EPATIC, LIPID, TSH3 wRFLX, [id number] #### [facility] [address] [id number] [facility] Lipid Panelon 09-02-2019 Cholesterol [Mass/Vol] 158 mg/dL Normal 140-200 [facility] Comment on above: Result Comment: Chol less than 200 mg/dl low risk Chol 201-239 mg/dl borderline risk Chol 240 mg/dl and greater high risk Performed By: #### H EPATIC, LIPID, TSH3 wRFLX, [id number] #### [facility] [address] [place] [address] [facility] Cholesterol in HDL [Mass/Vol] 61 mg/dL Normal 29-71 [facility] Comment on above: Result Comment: HDL CHOL ATP-III CLASSIFICATION Cardiovascular Risk HDL > or equal to 60 mg/dL LOW HDL < 40 mg/dL HIGH Performed By: #### H EPATIC, LIPID, TSH3 wRFLX, [id number] #### [facility] [address] Cholesterol.total/Ch olesterol in HDL [Mass ratio] 2.6 {ratio} Normal <5.0 [facility] Comment on above: Performed By: #### H EPATIC, LIPID, TSH3 wRFLX, [id number] #### [facility] [address] [id number] [facility] LDL Cholesterol,Calculat ed 84 mg/dL Normal 0-100 [facility] Comment on above: Result Comment: LDL ATP III CLASSIFICATION LDL less than 100 mg/dL Optimal LDL 100-129 mg/dL Near or above optimal LDL 130-159 mg/dL Borderline high LDL 160-189 mg/dL High LDL greater than 189 mg/dL Very high Performed By: #### H EPATIC, LIPID, TSH3 wRFLX, [id number] #### [facility] [address] [phone] [place] Triglyceride w/Reflex 63 mg/dL Normal 35-149 [facility] Comment on above: Result Comment: TRIG ATP III CLASSIFICATION TRIG less than 150 mg/dL Normal TRIG 150-199 mg/dL Borderline high TRIG 200-500 mg/dL High TRIG greater than 500 mg/dL Very high Standard traceable to the Center for Disease Conrtrol and Prevention (CDC) test method. Performed By: #### H EPATIC, LIPID, TSH3 wRFLX, [id number] #### [address] VLDL CHOLESTEROL 12 mg/dL Normal [facility] Comment on above: Performed By: #### H EPATIC, LIPID, TSH3 wRFLX, [id number] #### [address] Thyroid Stim Hormone w/Rflxo n 09-02-2019 Thyroid Stim Hormone w/Rflx 1.92 u[iU]/mL Normal 0.45-5.33 [facility] Comment on above: Performed By: #### H EPATIC, LIPID, TSH3 wRFLX, [id number] #### [address] Vitamin D 25 Hydroxy Totalon 09-02-2019 Vitamin D 25 Hydroxy Total 11.9 ng/mL Low 30-100 [facility] Comment on above: Result Comment: DAE MIN D STATUS 25(OH)VITAMIN D RANGE (ng/mL) Deficient <20 Insufficient 20 to <30 Sufficient 30 to 100 Reference: Darrion MF,Zane NC, Hanna AVELAR, et al. Evaluation,treatment, and prevention of vitamin D deficiency; an Endocrine Society clinical practice guideline. JCEM. 2010; 96(7):1911-30. PERFORMED BY: [place] [address] PATHOLOGIST MEDICAL RECRUITER MIGUELINA FLOOD M.D. Performed By: #### H EPATIC, LIPID, TSH3 wRFLX, [id number] #### [address] Vital Signs Date Time Vital Sign Value Performing Clinician Faci lity 02-15-2025 13:54-0400 Body mass index (BMI) [Ratio] 27.42 kg/m2 Azul Quezada NP Work Phone: [facility] 02-15-2025 13:54-0400 Body temperature 99 [degF] Azul Aichholz [facility] Work Phone: [facility] 02-15-2025 13:54-0400 Body weight 94.26 kg Azul Aichholz [facility] Work Phone: [facility] 02-15-2025 13:54-0400 Diastolic blood pressure 62 mm[Hg] Azul Aichholz [facility] Work Phone: [facility] 02-15-2025 13:54-0400 Heart rate 88 /min Azul Aichholz [facility] Work Phone: [facility] 02-15-2025 13:54-0400 Respiratory rate 24 /min Azul Aichholz [facility] Work Phone: [facility] 02-15-2025 13:54-0400 SaO2% (BldA) [Mass fraction] 92 % Azul Aichholz [facility] Work Phone: [facility] 02-15-2025 13:54-0400 Systolic blood pressure 100 mm[Hg] Azul Aichholz [facility] Work Phone: [facility] 11-16-2024 14:25-0500 Body mass index (BMI) [Ratio] 25.57 kg/m2 Azul Aichholz [facility] Work Phone: [facility] 11-16-2024 14:25-0500 Body temperature 99.39 [degF] Azul Aichholz [facility] Work Phone: [facility] 11-16-2024 14:25-0500 Body weight 87.91 kg Azul Aichholz [facility] Work Phone: [facility] 11-16-2024 14:25-0500 Diastolic blood pressure 68 mm[Hg] Azul Aichholz [facility] Work Phone: [facility] 11-16-2024 14:25-0500 Heart rate 90 /min Azul Aichholz [employer] [facility] Work Phone: [facility] 11-16-2024 14:25-0500 Respiratory rate 26 /min Azul Aichholz [employer] [facility] Work Phone: [facility] 11-16-2024 14:25-0500 SaO2% (BldA) [Mass fraction] 92 % Azul Aichholz [facility] Work Phone: [facility] 11-16-2024 14:25-0500 Systolic blood pressure 100 mm[Hg] Azul Aichholz [facility] Work Phone: [facility] 08-16-2024 13:20-0500 Body height 185.4 cm Azul Aichholz [facility] Work Phone: [facility] 08-16-2024 13:20-0500 Body mass index (BMI) [Ratio] 25.17 kg/m2 Azul Aichholz [facility] Work Phone: [facility] 08-16-2024 13:20-0500 Body temperature 98.29 [degF] Azul Aichholz [facility] Work Phone: [facility] 08-16-2024 13:20-0500 Body weight 86.55 kg Azul Aichholz [employer] [facility] Work Phone: [facility] 08-16-2024 13:20-0500 Diastolic blood pressure 78 mm[Hg] Azul Aichholz [employer] [facility] Work Phone: [facility] 08-16-2024 13:20-0500 Heart rate 77 /min Azul Aichholz [employer] [facility] Work Phone: [facility] 08-16-2024 13:20-0500 Respiratory rate 24 /min Azul Aichholz [employer] [facility] Work Phone: [facility] 08-16-2024 13:20-0500 SaO2% (BldA) [Mass fraction] 97 % Azul Aichholz [facility] Work Phone: [facility] 08-16-2024 13:20-0500 Systolic blood pressure 116 mm[Hg] Azul Aichholz [employer] [facility] Work Phone: [facility] 05-31-2024 13:20-0400 Body height 185.4 cm Ibeth Argueta DO Work Phone: [facility] 05-31-2024 13:20-0400 Body mass index (BMI) [Ratio] 23.67 kg/m2 Ibeth Argueta DO Work Phone: [facility] 05-31-2024 13:20-0400 Body weight 81.38 kg Ibeth Argueta DO Work Phone: [facility] 05-31-2024 13:20-0400 Diastolic blood pressure 66 mm[Hg] Ibeth Argueta DO Work Phone: [facility] 05-31-2024 13:20-0400 Heart rate 70 /min Ibeth Argueta DO Work Phone: [facility] 05-31-2024 13:20-0400 Respiratory rate 12 /min Ibeth Argueta DO Work Phone: [facility] 05-31-2024 13:20-0400 SaO2% (BldA) [Mass fraction] 98 % Ibeth Argueta DO Work Phone: [facility] 05-31-2024 13:20-0400 Systolic blood pressure 110 mm[Hg] Ibeth Argueta DO Work Phone: [facility] 05-19-2024 14:17-0400 Body height 185.4 cm Azul Quezada [facility] Work Phone: [facility] 05-19-2024 14:17-0400 Body mass index (BMI) [Ratio] 23.62 kg/m2 Azul Quezada [employer] [facility] Work Phone: [facility] 05-19-2024 14:17-0400 Body temperature 98.01 [degF] Azul Quezada [facility] Work Phone: [facility] 05-19-2024 14:17-0400 Body weight 81.19 kg Azul Quezada [employer] [facility] Work Phone: [facility] 05-19-2024 14:17-0400 Diastolic blood pressure 64 mm[Hg] Azul Aichholz [employer] Work Phone: [facility] 05-19-2024 14:17-0400 Heart rate 79 /min Azul Aichholz [employer] [facility] Work Phone: [facility] 05-19-2024 14:17-0400 Respiratory rate 22 /min Azul Aichholz [employer] Work Phone: [facility] 05-19-2024 14:17-0400 SaO2% (BldA) [Mass fraction] 94 % Azul Aichholz [employer] [facility] Work Phone: [facility] 05-19-2024 14:17-0400 Systolic blood pressure 90 mm[Hg] Azul Aichholz [employer] [facility] Work Phone: [facility] 10-30-2023 10:00-0500 Body height 185.4 cm Azul Aichholz [employer] [facility] Work Phone: [facility] 10-30-2023 10:00-0500 Body mass index (BMI) [Ratio] 26.84 kg/m2 Azul Aichholz [employer] [facility] Work Phone: [facility] 10-30-2023 10:00-0500 Body temperature 97.11 [degF] Azul Aichholz [employer] [facility] Work Phone: [facility] 10-30-2023 10:00-0500 Body weight 92.26 kg Azul Aichholz [employer] [facility] Work Phone: [facility] 10-30-2023 10:00-0500 Diastolic blood pressure 78 mm[Hg] Azul Aichholz [employer] [facility] Work Phone: [facility] 10-30-2023 10:00-0500 Heart rate 83 /min Azul Aichholz [employer] [facility] Work Phone: [facility] 10-30-2023 10:00-0500 Respiratory rate 16 /min Azul Aichholz [employer] [facility] Work Phone: [facility] 10-30-2023 10:00-0500 SaO2% (BldA) [Mass fraction] 94 % Azul Quezada [employer] [employer] Work Phone: [facility] 10-30-2023 10:00-0500 Systolic blood pressure 138 mm[Hg] Azul Damien [employer] Work Phone: [facility] Encounters Encounter Date Encounter Type Care Provider Facility Start: 02-15-2025 End: 02-15-2025 Bamboo flowsheet Azul Damien [employer] Work Phone: [facility] Start: 02-15-2025 End: 02-15-2025 Bamboo flowsheet Azul Damien [employer] [facility] Work Phone: [facility] Start: 02-15-2025 End: 02-15-2025 Office outpatient visit 25 minutes Azul Quezada [employer] Work Phone: [facility] Comment on above: Depression with anxi ety (Primary Dx); Cerebrovascular accident (CVA), unspecified mechanism (CMS/HCC); Overweight (BMI 25.0-29.9); Centrilobular emphysema (CMS/HCC); Insomnia, unspecified Start: 02-15-2025 End: 02-15-2025 ambulatory AZUL DAMIEN Not Available Start: 12-27-2024 End: 12-27-2024 Refill Azul Damien [facility] Work Phone: [facility] Comment on above: Mixed hyperlipidemia (CMS/HCC) Start: 11-16-2024 End: 11-16-2024 Bamboo flowsheet Azul Leidyhnormaz [facility] Work Phone: [facility] Start: 11-16-2024 End: 11-16-2024 Bamboo flowsheet Azul Aichholz [facility] Work Phone: [facility] Start: 11-16-2024 End: 11-16-2024 Clinisync Result Encounter Azul Damien [employer] Work Phone: [facility] Department Unsolicited Start: 11-16-2024 End: 11-16-2024 Patient encounter procedure Azul Quezada [employer] Work Phone: [facility] Comment on above: Encounter for subseq uent annual wellness visit (AWV) in Medicare patient (Primary Dx); Centrilobular emphysema (CMS/HCC); Cerebrovascular accident (CVA), unspecified mechanism (CMS/HCC); Bilateral carotid artery stenosis; Overweight (BMI 25.0-29.9); Depression with anxiety; COPD with acute exacerbation (CMS/HCC) Start: 11-16-2024 End: 11-16-2024 ambulatory 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 Not Available Start: 10-22-2024 End: 10-22-2024 Clinisync Result Encounter Generic External Data Provider [facility] Unsolicited Start: 10-22-2024 End: 10-22-2024 Clinisync Result Encounter Generic External Data Provider [facility] Unsolicited Start: 09-06-2024 End: 09-07-2024 Clinisync Result Encounter Azul Quezada NP Work Phone: [facility] Unsolicited Start: 09-06-2024 End: 09-07-2024 Clinisync Result Encounter Azul Quezada [facility] Work Phone: [facility] Unsolicited Start: 08-16-2024 End: 08-16-2024 Bamboo flowsheet Azul Quezada [employer] [facility] Work Phone: [facility] Start: 08-16-2024 End: 08-16-2024 Bamboo flowsheet Azul Quezada [employer] [facility] Work Phone: [facility] Start: 08-16-2024 End: 08-16-2024 Office outpatient visit 25 minutes Azul Quezada [employer] [facility] Work Phone: [facility] Comment on [...] Start: 06-02-2024 End: 06-02-2024 Refill Azul Quezada [facility] Work Phone: [facility] Comment on above: Depression with anxi ety; Insomnia, unspecified; Mixed hyperlipidemia (CMS/HCC) Start: 06-01-2024 End: 06-01-2024 Orders Only Azul Quezada [facility] Work Phone: [facility] Comment on above: Rising PSA level (Pr imary Dx) Start: 05-31-2024 End: 05-31-2024 Clinisync Result Encounter Azul Quezada [facility] Work Phone: [facility] Unsolicited Start: 05-31-2024 End: 05-31-2024 Clinisync Result Encounter Azul Damien [facility] Work Phone: [facility] Unsolicited Start: 05-31-2024 End: 05-31-2024 Patient encounter procedure Ibeth Argueta DO Work Phone: [facility] Comment on above: Screening for malign ant neoplasm of colon (Primary Dx) Start: 05-31-2024 End: 05-31-2024 ambulatory IBETH ARGUETA Not Available Start: 05-19-2024 End: 05-19-2024 Bamboo flowsheet Azul Quezada [facility] Work Phone: [facility] Start: 05-19-2024 End: 05-19-2024 Bamboo flowsheet Azul Quezada [employer] Work Phone: [facility] Start: 05-19-2024 End: 05-19-2024 Office outpatient visit 25 minutes Azul Quezada [employer] Work Phone: [facility] Comment on above: Depression with anxi ety (Primary Dx); Screening for prostate cancer; Smoker; Mixed hyperlipidemia (CMS/HCC); Sessile colonic polyp; Centrilobular emphysema (CMS/HCC); Bilateral carotid artery stenosis; Right hand pain Start: 05-19-2024 End: 05-19-2024 ambulatory 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 Not Available Start: 01-14-2024 End: 03-11-2024 Telephone encounter Grace Moore RN [facility] Start: 11-13-2023 Patient encounter procedure Azul Quezada [employer] [facility] Work Phone: [facility] Start: 10-30-2023 End: 10-30-2023 Office outpatient visit 15 minutes Azul Quezada [employer] [facility] Comment on above: Influenza (Primary D x); Marijuana abuse; Smoker; BMI 26.0-26.9,adult; Centrilobular emphysema (CMS/HCC) Start: 10-21-2023 Clinisync Result Encounter Gen lisa External Data Provider [facility] External [facility] Unsolicited Start: 10-21-2023 Clinisync Result Encounter Gen lisa External Data Provider [facility] Unsolicited Start: 09-25-2022 End: 09-25-2022 ambulatory [employer] 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 Facility:[facility] Start: 04-16-2022 End: 04-17-2022 ambulatory [facility] Facility: Start: 04-10-2022 End: 04-11-2022 ambulatory [facility] Facility: Start: 03-06-2022 End: 03-07-2022 ambulatory [employer] 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 Facility:[facility] Procedures Date Procedure Procedure Detail Performing Clinician Start: 11-16-2024 XR CHEST 2V Azul celeste [facility] Work Phone: Start: 10-22-2024 ALL HEMOGLOBIN Generic External Data Provider Start: 09-06-2024 PSA TOTAL+% FREE Azul tillman [facility] Work Phone: Start: 07-06-2024 ALL CBC WITH AUTO DIFF Generic External Data Provider Start: 06-15-2024 Colonoscopy Generic Pr ovider Start: 05-31-2024 TBH UA (CLEAN/CATCH) MICROSCOPIC IF INDICATE Azul Quezada [facility] Work Phone: Start: 10-21-2023 BLOOD CULTURE 2 Generic External Data Provider Start: 10-21-2023 BLOOD CULTURE 1 Generic External Data Provider Start: 03-06-2022 PSA screening [facility] Comment on above: Performed By: #### P SAS #### [facility] [address] [address] [address] Tom Dotson Start: 02-07-2022 Adult depression scr eening assessment Grace Moore RN Plan of Treatment Date Care Activity Detail Author Start: 06-15-2029 Screening for malign ant neoplasm of colon [facility] Start: 11-21-2025 End: 11-21-2025 Patient encounter procedure 11/21/2025 4:30 PM EST Office Visit [facility] [address] [place] [id number] Azul Quezada, ORACIO [address] [place] [phone] [facility] Start: 11-16-2025 Medicare Annual Well ness (AWV) Medicare Annual Wellness (AWV) [facility] Start: 02-15-2025 End: 02-15-2025 Patient encounter procedure [facility] Comment on above: Cerebrovascular acci dent (CVA), unspecified mechanism (CMS/HCC) (Primary Dx); Overweight (BMI 25.0-29.9); Depression with anxiety; Centrilobular emphysema (CMS/HCC) Start: 11-16-2024 End: 11-16-2024 Patient encounter procedure [facility] Comment on above: Cerebrovascular acci dent (CVA), unspecified mechanism (CMS/HCC) (Primary Dx); Centrilobular emphysema (CMS/HCC); Bilateral carotid artery stenosis; Overweight (BMI 25.0-29.9); Depression with anxiety; Encounter for subsequent annual wellness visit (AWV) in Medicare patient Start: 11-16-2024 End: 11-16-2025 XR Chest 2 Views XR chest 2 views Imaging Routine COPD with acute exacerbation (CMS/HCC) Expected: 11/16/2024 (Approximate), Expires: 11/16/2025 [facility] Work Phone: Comment on above: Expected: 11/16/2024 (Approximate), Expires: 11/16/2025 Start: 11-13-2024 Medicare Annual Well ness (AWV) Medicare Annual Wellness (AWV) [facility] Start: 08-16-2024 End: 08-16-2024 Patient encounter procedure [facility] Comment on above: Primary insomnia (Pr imary Dx); Cerebrovascular accident (CVA), unspecified mechanism (CMS/HCC); Centrilobular emphysema (CMS/HCC); Bilateral carotid artery stenosis; Sessile colonic polyp; Smoker; Depression with anxiety Start: 08-04-2024 Screening for malign ant neoplasm of colon [facility] Start: 06-01-2024 End: 06-01-2025 PSA, total and free PSA, total and free Lab Routine Rising PSA level Expected: 06/01/2024 (Approximate), Expires: 06/01/2025 [facility] Work Phone: Comment on above: Expected: 06/01/2024 (Approximate), Expires: 06/01/2025 Start: 2024 Influenza vaccination [facility] Start: 05-19-2024 End: 05-19-2025 CBC W Auto Differential panel - Blood CBC and differential Lab Routine Smoker Expected: 05/19/2024 (Approximate), Expires: 05/19/2025 [facility] Work Phone: Comment on above: Expected: 05/19/2024 (Approximate), Expires: 05/19/2025 Start: 05-19-2024 End: 05-19-2025 Comprehensive metabolic 2000 panel - Serum or Plasma Comprehensive metabolic panel Lab Routine Depression with anxiety Mixed hyperlipidemia (CMS/HCC) Expected: 05/19/2024 (Approximate), Expires: 05/19/2025 [facility] Comment on above: Expected: 05/19/2024 (Approximate), Expires: 05/19/2025 Start: 05-19-2024 End: 05-19-2025 Lipid 1996 panel - Serum or Plasma Lipid panel Lab Routine Mixed hyperlipidemia (CMS/HCC) Expected: 05/19/2024 (Approximate), Expires: 05/19/2025 [facility] Comment on above: Expected: 05/19/2024 (Approximate), Expires: 05/19/2025 Start: 05-19-2024 End: 05-19-2024 Patient encounter procedure 05/19/2024 2:00 PM EDT Office Visit [facility] [address] [place] [id number] Azul Quezada NP [address] [place] [address] Screening for prostate cancer (Primary Dx); Smoker; Depression with anxiety; Mixed hyperlipidemia (CMS/HCC) [facility] Comment on above: Screening for prosta te cancer (Primary Dx); Smoker; Depression with anxiety; Mixed hyperlipidemia (CMS/HCC) Start: 05-19-2024 End: 05-19-2025 Prostate specific Ag [Mass/volume] in Serum or Plasma PSA Lab Routine Screening for prostate cancer Expected: 05/19/2024 (Approximate), Expires: 05/19/2025 [facility] Comment on above: Expected: 05/19/2024 (Approximate), Expires: 05/19/2025 Start: 05-19-2024 End: 05-19-2025 Urinalysis complete panel - Urine Urinalysis with reflex microscopic (clean catch) Lab Routine Smoker Expected: 05/19/2024 (Approximate), Expires: 05/19/2025 [facility] Comment on above: Expected: 05/19/2024 (Approximate), Expires: 05/19/2025 Start: 03-21-2024 Influenza vaccination Influenza Vacc ine (#1) [facility] Comment on above: Postponed from 05/23 (Patient Refused) Start: 01-14-2024 End: 01-13-2025 US Carotid arteries - bilateral Vas carotid duplex bilateral Vascular Ultrasound Routine Internal carotid artery stenosis, right Expected: 01/14/2024, Expires: 01/13/[address] [facility] Work Phone: Comment on above: Expected: 01/14/2024 , Expires: 01/13/2025 Start: 11-13-2023 End: 11-13-2023 Patient encounter procedure 11/13/2023 9:40 AM EST Office Visit [facility] [address] [place] [phone] Azul Quezada, [employer] [address] [place] [phone] [facility] Start: 10-30-2023 End: 10-30-2023 Patient encounter procedure 10/30/2023 10:00 AM EST Office Visit [facility] [address] [place] [phone] Azul Quezada, [employer] [address] [place] [phone] [facility] Start: 2023 Influenza vaccination Influenza Vacc ine (#1) [facility] Start: 03-08-2023 Adult BMI Screening Adult BMI Screen ing [facility] Start: 03-08-2023 Tobacco Screening Tobacco Screening [facility] Start: 02-07-2023 Depression Screening Depression Scre ening [facility] Start: 2010 Administration of varicella zoster vaccine Zoster (Shingles) Vaccine (1 of 2) [facility] Start: 1979 DTaP,Tdap and Td Vac cines (1 - Tdap) DTaP,Tdap and Td Vaccines (1 - Tdap) [facility] Start: 1960 Medicare Annual Well ness (AWV) Medicare Annual Wellness (AWV) [facility] Start: 1960 Screening for malign ant neoplasm of colon [facility] BLOOD CULTURE 1 BLOOD CULTURE 1 Lab Routine 10/21/2023 12:27 PM EST [facility] BLOOD CULTURE 2 BLOOD CULTURE 2 Lab Routine 10/21/2023 12:30 PM EST [facility] Immunizations Immunization Date Immunization Notes Care Provider Yrn hernandez 08-30-2024 ABRYSVO - Respirator y syncytial virus (RSV), vaccine, bivalent, protein subunit RSV prefusion F, diluent reconstituted, 0.5 mL, PF Azul Aichholz [employer] Work Phone: [facility] 08-16-2024 Influenza, injectabl e, Madin Marjan Canine Kidney, preservative free, quadrivalent Azul Aichholz [employer] [employer] Work Phone: [facility] 2020 influenza, live, intranasal, quadrivalent Azul Aichholz [employer] Work Phone: [facility] 2020 influenza virus vaccine, unspecified formulation Generic Provider [facility] 08-04-2019 influenza, high dose seasonal, preservative-free Azul Aichholz [employer] Work Phone: [facility] 07-05-2015 influenza, injectabl e, quadrivalent, preservative free Azul Aichholz [employer] Work Phone: [facility] 07-05-2015 influenza virus vaccine, unspecified formulation Grace Moore RN [facility] Payers Date Payer Category Payer Medicaid MEDICAID [facility] EDICAID [id number] 2019-Present [phone] [address] [place] [address] [id number] 1993 Medicare [id number] 1993 Medicare [id number] 1960 Unknown [id number] 1960 Unknown [id number] 1960 Unknown [id number] 1960 Unknown [id number] 1960 Unknown [id number] 1960 Unknown [id number] 1960 Unknown [id number] 1960 Unknown [id number] 1960 Unknown [id number] 1959 Medicaid [id number] 1959 Unknown [id number] Social History Date Type Detail Facility Tobacco smoking stat [facility] Tobacco smoking consumption unknown [facility] Start: 1960 Sex Assigned At Not on file [facility] Start: 10-30-2023 End: 11-13-2023 Gender identity Not on file [facility] Start: 10-30-2023 Tobacco smoking status [facility] Ex-smoker [facility] Start: 03-22-1984 End: 03-22-2019 History of tobacco use Current smoker [facility] Start: 03-22-1984 End: 03-22-2019 History of tobacco use Cigarette Smoker [facility] Start: 10-30-2023 End: 11-13-2023 Cigarettes smoked current (pack per day) - Reported 1 [facility] Start: 02-08-2021 End: 10-30-2023 Tobacco use and exposure Smokeless tobacco non-user [facility] Start: 10-30-2023 End: 02-15-2025 Alcohol intake Current drinker of alcohol (finding) [facility] Start: 10-28-2023 Alcohol Comment coffee more than 4 cups per day [facility] Within the last year , have you been afraid of your partner or ex-partner? No [facility] Do you belong to any clubs or organizations such as pentecostalism groups, unions, fraternal or athletic groups, or [...] to buy more. Never true [facility] Start: 02-08-2021 Tobacco smoking status NHIS Smokes tobacco daily [facility] Start: 03-08-2022 Alcoholic beverage intake Ex-drinker (finding) [facility] Are you now , , , , never or living with a partner? Living with partner [facility] How often to you hav e a drink containing alcohol? Monthly or less [facility] Do you feel stress - tense, restless, nervous, or anxious, or unable to sleep at night because your mind is troubled all the time - these days [OSQ] Not at all [facility] Start: 12-21-2020 Tobacco Comment quit 4 days ago as of 12/21/20 [facility] Medical Equipment Procedure Code Equipment Code Equipment Origin al Text Equipment Identifier Dates Stnt Vsc 8/6mm 6 fr 30mm 135cm - [id number] Start: 06-12-2020 Goals Date Patient Goal Desired Activity /State Personal health goal Comment on above: Formatting of this n ote might be different from the original. Evaluation of progress towards goal: Return home with self care and family support. Clinical Notes 10-30-2023 to 02-15-2025 RACHEL ACEVEDO - 02/15/2025 1:40 PM Yunior Quezada NP - 02/15/2025 1:40 PM Yunior Quezada NP - 02/15/2025 7:20 AM Yunior Quezada NP - 02/15/2025 7:19 AM EDTPatient Instructions Note Date & Type Note Facility 02-15-2025 History of Presen t illness Narrative Symbicort and spiriva- pt has been unable to pay therefore he has not had either. Pt plans to quit job by next month Pt is very SOB Pt states his 02 has been averaging 88-94 Images from the original note were not included. Sam Kramer is a 64 y.o. 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 SUBJECTIVE: MEDICATIONS: Current Outpatient Medications Medication Instructions albuterol HFA 90 mcg/act inhaler 2 puffs, Every 4 hours PRN albuterol 2.5 mg, 4 times daily PRN aspirin 81 mg, Daily atorvastatin (LIPITOR) 40 mg, Oral, Every evening budesonide-formoterol (Symbicort) 160-4.5 MCG/ACT inhaler 2 puffs, 2 times daily RT Ensifentrine (Ohtuvayre) 3 MG/2.5ML suspension Every 12 hours EPINEPHrine (Epipen) 0.3 MG/0.3ML injection syringe 1 Syringe, Once FLUoxetine (PROZAC) 20 mg, Oral, Daily ipratropium (Atrovent) 0.02 % nebulizer solution 2.5 mL inhaled via nebulizer every 8 hours As Needed for shortness of breath or wheezing ipratropium-albuterol (Duo-Neb) 0.5-2.5 mg/3 mL nebulizer solution [...] sneezing, trouble swallowing and voice change. Eyes: Positive for visual disturbance (blurry vision). Negative for pain and discharge. Respiratory: Positive for cough, shortness of breath and wheezing. Negative for apnea and chest tightness. Cardiovascular: Negative for leg swelling. Gastrointestinal: Negative for abdominal distention, blood in stool, constipation and diarrhea. Genitourinary: Negative for decreased urine volume, difficulty urinating, dysuria and hematuria. Skin: Negative for color change. Neurological: Negative for dizziness, tremors and seizures. Psychiatric/Behavioral: Positive for agitation. Negative for decreased concentration, hallucinations, self-injury and suicidal ideas. [...] (CMS/HCC) COVID-19 07/2019 CVA (cerebral vascular accident) ([facility]) Degenerative cervical disc Depression with anxiety Insomnia Marijuana abuse 10/30/2023 Multiple pulmonary nodules Neck mass 2014 Osteoarthritis Papule of skin 11/13/2023 Pigmented skin lesion of uncertain nature Rheumatic fever Stroke ([facility]) 07/2020 Testicle lump Tourette's ([facility]) Vertebral artery occlusion Vocal cord polyp Past Surgical History: Procedure Laterality Date ADENOIDECTOMY CAROTID STENT Right 09/2019 stent, RT carotid CT GUIDED TRANSVAGINAL TRANSRECTAL FLUID DRAIN 06/09/2020 CT GUIDED TRANSVAGINAL TRANSRECTAL FLUID DRAIN 06/09/2020 OTHER SURGICAL HISTORY Removal of Polyp Vocal area and Vocal Cord cyst NM EXCISION THYROGLOSSAL DUCT CYST/SINUS Procedure:DL, e/o thyroglossal duct cyst;Disease:neck mass TONSILLECTOMY family history includes Asthma in his mother; Diabetes in his mother; Heart attack in his father; Hypertension in his mother. OBJECTIVE: Visit Vitals BP 100/62 (BP Location: Left arm, Patient Position: Sitting, BP Cuff Size: Adult long) Pulse 88 Temp 99 F (Temporal) Resp 24 Wt 207 lb 12.8 oz SpO2 92% BMI 27.42 kg/m Smoking Status Former BSA 2.2 m Physical Exam Vitals and nursing note [...] Pulmonary effort is normal. Breath sounds: Wheezing (few faint) and rhonchi present. Abdominal: General: Bowel sounds are normal. Palpations: Abdomen is soft. Musculoskeletal: Cervical back: Neck supple. Right lower leg: No edema. Left lower leg: No edema. Skin: General: Skin is warm and dry. Capillary Refill: Capillary refill takes 2 to 3 seconds. Neurological: General: No focal deficit present. Mental Status: He is alert. Psychiatric: Mood and Affect: Mood normal. Behavior: Behavior normal. Thought Content: Thought content normal. Judgment: Judgment normal. ASSESSMENT AND PLAN: No follow-ups on file. Problem List Items Addressed This Visit CVA (cerebral vascular accident) (CMS/HCC) - Primary No focal weakness Continues as directed by neurology Centrilobular emphysema (CMS/HCC) Continue with pulmonology Continue with inhaler Chest CT 09/14 new lung masses Depression with anxiety Current med: fluoxetine Relevant Medications FLUoxetine (PROzac) 20 MG capsule Overweight (BMI 25.0-29.9) Other Visit Diagnoses Insomnia, unspecified Relevant Medications traZODone (Desyrel) 50 MG tablet Associated Problem(s): Centrilobular emphysema (CMS/HCC) Continue with pulmonology Continue with inhaler albuterol, we can try to help with PA Chest CT 09/14 new lung masses Associated Problem(s): Depression with anxiety Current med: fluoxetine Associated Problem(s): CVA (cerebral vascular accident) (CMS/HCC) No focal weakness Continues as directed by neurology documented in this encounter [facility] 02-15-2025 Instructions Azul Quezada NP - 02/15/2025 1:40 PM EDT Return the patient assistance medication forms and we can try to help you get the medications (inhaler) documented in this encounter [facility] 11-16-2024 History of Presen t illness Narrative Associated Problem(s): COPD with acute exacerbation ([facility]/HCC) Add atb, steroids, check cxr Pt needs to get in touch with dr tim If resp condition worsens go to the ER Pt has been sick with bronchitis since last week. Pt is very sob, wheezing, tightness in the chest, fatigue, pt has been using his nebulizer every 4hrs. Pt has not been to work since last Friday. Pt would like to be off work indefinitely. Lungs hurt pain 5-6 Can't breath, next ct is not til mid november Pt had chest pains yesterday with heart rate from 103 to 74 02 is 92-93 room air Will only hit 95-96 after using nebulizer Feels very weak and fatigue Images from the original note were not included. Sam Kramer is a 64 y.o. male presents with chief complaint of No chief complaint on file. HPI: Diet: not a lot of veggies Activity:limited d/t breathing Mental Health Concerns: depression/anxiety Falls in the last year: Still driving:yes Do you pay your bills: yes Any hearing problems:no Any Vision problems: no Any Hospitalizations in the last year:no Specialist: glenroy PHAN/Living Will:no Concerns: breathing Pt has been sick with bronchitis since last week. Pt is very sob, wheezing, tightness in the chest, fatigue, pt has been using his nebulizer every 4hrs. Pt has not been to work since last Friday. Pt would like to be off work indefinitely. Lungs hurt pain 5-6 Can't breath, next ct is not til mid november Pt had chest pains yesterday with heart rate from 103 to 74, sharp pain across the chest, no radiation 02 is 92-93 room air Will only hit 95-96 after using nebulizer Feels very weak and fatigue SUBJECTIVE: MEDICATIONS: Current Outpatient Medications Medication Instructions albuterol HFA 90 mcg/act inhaler 2 puffs, Every 4 hours PRN albuterol 2.5 mg, 4 times daily PRN aspirin 81 mg, Daily atorvastatin (LIPITOR) 40 mg, Oral, Daily budesonide-formoterol (Symbicort) 160-4.5 MCG/ACT inhaler 2 puffs, 2 times daily RT Ensifentrine (Ohtuvayre) 3 MG/2.5ML suspension Every 12 hours EPINEPHrine (Epipen) 0.3 MG/0.3ML injection syringe 1 Syringe, Once FLUoxetine (PROZAC) 20 mg, Oral, Daily ipratropium (Atrovent) 0.02 % nebulizer solution 2.5 mL inhaled via nebulizer every 8 hours As Needed for shortness of breath or wheezing ipratropium-albuterol (Duo-Neb) 0.5-2.5 mg/3 mL nebulizer solution 3 mL, 4 times daily RT tiotropium (Spiriva Respimat) 2.5 MCG/ACT inhaler 2 puffs, Daily traZODone (DESYREL) 50 mg, Oral, Nightly triamcinolone (Nasacort) 55 MCG/ACT nasal inhaler 2 sprays, Daily ALLERGIES: Allergies Allergen Reactions Bee Venom Unknown REVIEW OF SYMPTOMS: Review of Systems Constitutional: Positive for fatigue. Negative for activity change, appetite change and [...] (CMS/HCC) COVID-19 07/2019 CVA (cerebral vascular accident) ([facility]/HCC) Degenerative cervical disc Depression with anxiety Insomnia Marijuana abuse 10/30/2023 Multiple pulmonary nodules Neck mass 2014 Osteoarthritis Papule of skin 11/13/2023 Pigmented skin lesion of uncertain nature Rheumatic fever Stroke (CMS/HCC) 07/2020 Testicle lump Tourette's ([facility]) Vertebral artery occlusion Vocal cord polyp Past Surgical History: Procedure Laterality Date ADENOIDECTOMY CAROTID STENT Right 09/2019 stent, RT carotid CT GUIDED TRANSVAGINAL TRANSRECTAL FLUID DRAIN 06/09/2020 CT GUIDED TRANSVAGINAL TRANSRECTAL FLUID DRAIN 06/09/2020 OTHER SURGICAL HISTORY Removal of Polyp Vocal area and Vocal Cord cyst NM EXCISION THYROGLOSSAL DUCT CYST/SINUS Procedure:DL, e/o thyroglossal duct cyst;Disease:neck mass TONSILLECTOMY family history includes Asthma in his mother; Diabetes in his mother; Heart attack in his father; Hypertension in his mother. OBJECTIVE: Visit Vitals BP 100/68 (BP Location: Left arm, Patient Position: Sitting, BP Cuff Size: Adult long) Pulse 90 Temp 99.4 F (Temporal) Resp 26 Wt 193 lb 12.8 oz SpO2 92% BMI 25.57 kg/m Smoking Status Former BSA 2.13 m Physical Exam Vitals and nursing note reviewed. Constitutional: Appearance: Normal appearance. He is ill-appearing (mild-mod). He is not toxic-appearing or diaphoretic. HENT: Head: Normocephalic. Right Ear: Tympanic membrane, ear canal and external ear normal. Left Ear: Tympanic membrane, ear canal and external ear normal. Nose: Congestion present. No rhinorrhea. Mouth/Throat: Mouth: Mucous membranes are moist. Pharynx: Oropharynx is clear. No oropharyngeal exudate or posterior oropharyngeal erythema. Eyes: Extraocular Movements: Extraocular movements intact. Conjunctiva/sclera: Conjunctivae normal. Neck: Vascular: No carotid bruit. Cardiovascular: Rate and Rhythm: Normal rate and regular rhythm. Pulses: Normal pulses. Heart sounds: Normal heart sounds. No murmur heard. Pulmonary: Breath sounds: Wheezing and rhonchi present. Comments: Prolonged exp phase Abdominal: General: Bowel sounds are normal. Palpations: Abdomen is soft. There is no mass. Tenderness: There is no abdominal tenderness. Musculoskeletal: Cervical back: Neck supple. Right lower [...] file. Problem List Items Addressed This Visit CVA (cerebral vascular accident) (CMS/HCC) - Primary No focal weakness Continues as directed by neurology Centrilobular emphysema (CMS/HCC) Continue with pulmonology Continue with inhaler Bilateral carotid artery stenosis Cont with vascular Asa, statin therapy Depression with anxiety Current med: fluoxetine JESSICA 7= PHQ 9= Encounter for subsequent annual wellness visit (AWV) in Medicare patient Reviewed Ht/Wt/BMI Recommend eye exam yearly Recommend dental exams twice a year Balance work/leisure activities Exercises is recommended most days of the week (appropriate as chronic conditions allow) Follow up yearly and prn Overweight (BMI 25.0-29.9) Associated Problem(s): Encounter for subsequent annual wellness visit (AWV) in Medicare patient Reviewed Ht/Wt/BMI Recommend eye exam yearly Recommend dental exams twice a year Balance work/leisure activities Exercises is recommended most days of the week (appropriate as chronic conditions allow) Follow up yearly and prn Associated Problem(s): Depression with anxiety Current med: fluoxetine JESSICA 7= PHQ 9= Associated Problem(s): Bilateral carotid artery stenosis Cont with vascular Asa, statin therapy Associated Problem(s): Centrilobular emphysema (CMS/HCC) Continue with pulmonology Continue with inhaler Associated Problem(s): CVA (cerebral vascular accident) (CMS/HCC) No focal weakness Continues as directed by neurology documented in this encounter [facility] 11-16-2024 Instructions Azul Quezada NP - 11/16/2024 2:00 PM EST Get back into see dr tim No dose changes in your meds Chest xray documented in this encounter [facility] 08-16-2024 History of Presen t illness Narrative Associated Problem(s): Former smoker Quit smoking, and no smoking THC!! Great job Pt is more fatigue and tired. Pt is working 3 days a week Images from the original note were not included. Sam Kramer is a 64 y.o. male presents with chief complaint of No chief complaint on file. HPI: Here for recheck: Depression/anxiety: SSRI, trazodone, no SI/HI/hallucinations. No side effects from meds COPD: +dyspnea, +cough, Wheeze at times, continues to smoke THC, follows with [facility]en[facility], needs flu shot Does have fatigue, SUBJECTIVE: [...] Calcified lymph nodes Centrilobular emphysema ([facility]) COVID-19 07/2019 CVA (cerebral vascular accident) ([facility]) Degenerative cervical disc Depression with anxiety Insomnia Marijuana abuse 10/30/2023 Multiple pulmonary nodules Neck mass 2013 Osteoarthritis Papule of skin 11/13/2023 Pigmented skin lesion of uncertain nature Rheumatic fever Stroke ([facility]) 07/2020 Testicle lump Tourette's ([facility]) Vertebral artery occlusion Vocal cord polyp Past Surgical History: Procedure Laterality Date ADENOIDECTOMY CAROTID STENT Right 09/2019 stent, RT carotid CT GUIDED TRANSVAGINAL TRANSRECTAL FLUID DRAIN 06/09/2020 CT GUIDED TRANSVAGINAL TRANSRECTAL FLUID DRAIN 06/09/2020 OTHER SURGICAL HISTORY Removal of Polyp Vocal area and Vocal Cord cyst NM EXCISION THYROGLOSSAL DUCT CYST/SINUS Procedure:DL, e/o thyroglossal [...] of the risks of continued smoking: stroke, PR, all forms of cancer, lung disease, and [...] Relevant Orders Flu vaccine, MDCK, quadrivalent, PF ([id number]) (Flucelvax single dose syringe) (Completed) Former smoker [...] of the risks of continued smoking: stroke, PR, all forms of cancer, lung disease, and [...] Continue with trazodone documented in this encounter [facility] 08-16-2024 Instructions Azul Quezada NP - 08/16/2024 1:20 PM EST Great job at quitting smoking Keep follow up with dr tim as directed Follow up with Vascular doctor in [place] as well as directed documented in this encounter [facility] 05-31-2024 History of Presen t illness Narrative General Surgery H&P Sam Kramer 1960 Sam Kramer is a 64 y.o. male presents with [...] Calcified lymph nodes Centrilobular emphysema ([facility]) COVID-19 07/2019 CVA (cerebral vascular accident) ([facility]) Degenerative cervical disc Depression with anxiety Insomnia Marijuana abuse 10/30/2023 Multiple pulmonary nodules Neck mass 2014 Osteoarthritis Papule of skin 11/13/2023 Pigmented skin lesion of uncertain nature Rheumatic fever Stroke ([facility]) 07/2020 Testicle lump Tourette's ([facility]) Vertebral artery occlusion Vocal cord polyp Social [...] Polyp Vocal area and Vocal Cord cyst NM EXCISION THYROGLOSSAL DUCT CYST/SINUS Procedure:DL, e/o thyroglossal [...] Polyp Vocal area and Vocal Cord cyst NM EXCISION THYROGLOSSAL DUCT CYST/SINUS Procedure:DL, e/o thyroglossal [...] following 24 hrs post procedure. Thank you, K Partha Argueta DO documented in this encounter [facility] 05-19-2024 History of Presen t illness Narrative [...] (CMS/HCC) COVID-19 07/2019 CVA (cerebral vascular accident) ([facility]) Degenerative cervical disc Depression with anxiety Insomnia Marijuana abuse 10/30/2023 Multiple pulmonary nodules Neck mass 2014 Osteoarthritis Papule of skin 11/13/2023 Pigmented skin lesion of uncertain nature Rheumatic fever Stroke ([facility]) 07/2020 Testicle lump Tourette's ([facility]) Vertebral artery occlusion Vocal cord polyp Past Surgical History: Procedure Laterality Date ADENOIDECTOMY CAROTID STENT Right 09/2019 stent, RT carotid CT GUIDED TRANSVAGINAL TRANSRECTAL FLUID DRAIN 06/09/2020 CT GUIDED TRANSVAGINAL TRANSRECTAL FLUID DRAIN 06/09/2020 OTHER SURGICAL HISTORY Removal of Polyp Vocal area and Vocal Cord cyst NM EXCISION THYROGLOSSAL DUCT CYST/SINUS Procedure:DL, e/o thyroglossal [...] at this time documented in this encounter [facility] 01-14-2024 Miscellaneous Notes Per January 2024 recall, patient is due for routine CUS imaging per Dr. Terrell. Please call to remind patient and provide central scheduling number if needed. Will call with results once completed. Called patient, call went to but inbox was full and fiction and nonfiction prose writer was unable to leave message reminder [...] if he could have it done in [place] at the [facility] ([place], [place] facility there because he doesn't have a car and stated it would be impossible for him to make it to [place]. Hazardous Materials Tanker Driver confirmed patient had central scheduling phone number to get the scans scheduled. Called patient and got VM but it was full so fiction and nonfiction prose writer was unable to leave message reminding patient of imaging that is due. Attempted to call patient and got voicemail but fiction and nonfiction prose writer was unable to leave message due to it being full. Will try again later and send letter with order via mail. Attempted to call patient and got voicemail but fiction and nonfiction prose writer was unable to leave message due to it being full. Letter and order mailed to address on file. Will follow up in 1 month. Attempted to call patient and got voicemail but fiction and nonfiction prose writer was unable to leave message due to it being full. documented in this encounter [facility] 01-14-2024 Telephone encounter Note Per January 2024 recall, patient is due for routine CUS imaging per Dr. Terrell. Please call to remind patient and provide central scheduling number if needed. Will call with results once completed. [facility] 01-14-2024 Telephone encounter Note Called patient, call went to but inbox was full and fiction and nonfiction prose writer was unable to leave message reminder for imaging. Will try again later. [facility] 01-14-2024 Telephone encounter Note Received call today 01/14/24 1:05 from patient in regard to previous message and I informed him of clinical staff's messages below - he voiced understanding and I provided him with Central Scheduling phone# to schedule imaging. [facility] 01-14-2024 Telephone encounter Note Called patient and reminded of imaging that is due. He stated understanding and asked if he could have it done in [place] at the [facility] ([place], [place] facility there because he doesn't have a car and stated it would be impossible for him to make it to [place]. Hazardous Materials Tanker Driver confirmed patient had central scheduling phone number to get the scans scheduled. [facility] 01-14-2024 Telephone encounter Note Called patient and got VM but it was full so fiction and nonfiction prose writer was unable to leave message reminding patient of imaging that is due. [facility] 01-14-2024 Telephone encounter Note Attempted to call patient and got voicemail but fiction and nonfiction prose writer was unable to leave message due to it being full. Will try again later and send letter with order via mail. [facility] 01-14-2024 Telephone encounter Note Attempted to call patient and got voicemail but fiction and nonfiction prose writer was unable to leave message due to it being full. Letter and order mailed to address on file. Will follow up in 1 month. [facility] 01-14-2024 Telephone encounter Note Attempted to call patient and got voicemail but fiction and nonfiction prose writer was unable to leave message due to it being full. [facility] 10-30-2023 History of Presen t illness Narrative [...] complaint on file. HPI: Recent hospitalization at [facility] for 3 days d/t influenza. Does [...] (CMS/HCC) COVID-19 07/2019 CVA (cerebral vascular accident) ([facility]) Degenerative cervical disc Depression with anxiety Insomnia Marijuana abuse 10/30/2023 Multiple pulmonary nodules Neck mass 2013 Osteoarthritis Papule of skin Pigmented skin lesion of uncertain nature Rheumatic fever Stroke ([facility]) 07/2020 Testicle lump Tourette's ([facility]) Vertebral artery occlusion Vocal cord polyp Past Surgical History: Procedure Laterality Date ADENOIDECTOMY CAROTID STENT Right 09/2019 stent, RT carotid CT GUIDED TRANSVAGINAL TRANSRECTAL FLUID DRAIN 06/09/2020 CT GUIDED TRANSVAGINAL TRANSRECTAL FLUID DRAIN 06/09/2020 OTHER SURGICAL HISTORY Removal of Polyp Vocal area and Vocal Cord cyst NM EXCISION THYROGLOSSAL DUCT CYST/SINUS Procedure:DL, e/o thyroglossal [...] in this encounter [facility] Evaluation note Diagnosis Influenza- Primary Influenza with other respiratory manifestations Marijuana abuse Nondependent cannabis abuse, unspecified Smoker Tobacco use disorder BMI 26.0-26.9,adult Centrilobular emphysema (CMS/HCC) [facility] Diagnosis Influenza- Primary Influenza with [...] PSA level- Primary [facility]* Diagnosis Depression with anxiety Dysthymic disorder Insomnia, unspecified Mixed hyperlipidemia (CMS/HCC) Mixed hyperlipidemia documented in this encounter [facility]* Diagnosis Internal carotid artery stenosis, right- Primary documented in this encounter [facility]* Diagnosis Influenza- Primary Influenza with other [...] use, presenting hazards to health Insomnia, unspecified Encounter for subsequent annual wellness visit (AWV) in Medicare patient- Primary Centrilobular emphysema (CMS/HCC) Cerebrovascular accident (CVA), unspecified mechanism (CMS/HCC) Bilateral carotid artery stenosis Occlusion and stenosis of carotid artery without mention of cerebral infarction Overweight (BMI 25.0-29.9) Overweight Depression with anxiety Dysthymic disorder COPD with acute exacerbation (CMS/HCC) documented in this encounter [facility] HealthcareEvaluation [facility]* Diagnosis Influenza- Primary Influenza with [...] use, presenting hazards to health Insomnia, unspecified Encounter for subsequent annual wellness visit (AWV) in Medicare patient- Primary Centrilobular emphysema (CMS/HCC) Cerebrovascular accident (CVA), unspecified mechanism (CMS/HCC) Bilateral carotid artery stenosis Occlusion and stenosis of carotid artery without mention of cerebral infarction Overweight (BMI 25.0-29.9) Overweight Depression with anxiety Dysthymic disorder COPD with acute exacerbation (CMS/HCC) Mixed hyperlipidemia (CMS/HCC) Mixed hyperlipidemia [facility] Diagnosis Influenza- Primary Influenza with [...] use, presenting hazards to health Insomnia, unspecified Encounter for subsequent annual wellness visit (AWV) in Medicare patient- Primary Centrilobular emphysema (CMS/HCC) Cerebrovascular accident (CVA), unspecified mechanism (CMS/HCC) Bilateral carotid artery stenosis Occlusion and stenosis of carotid artery without mention of cerebral infarction Overweight (BMI 25.0-29.9) Overweight Depression with anxiety Dysthymic disorder COPD with acute exacerbation (CMS/HCC) Depression with anxiety- Primary Dysthymic disorder Cerebrovascular accident (CVA), unspecified mechanism (CMS/HCC) Overweight (BMI 25.0-29.9) Overweight Centrilobular emphysema (CMS/HCC) Insomnia, unspecified documented in this encounter [facility] HealthcareInstructionsNot on filedocumented in this encounterProSelect [facility] SystemReason for referral (narrative)* Consultation (Routine) - Pending Review Specialty Diagnoses / Procedures Referred By Demetrius ramirez Referred To Contact General Surgery Diagnoses Sessile colonic polyp Procedures NM OFFICE/OUTPATIENT NEW HIGH MDM 60 MINUTES Azul Quezada NP [address] [place] [address] Dashawn ArguetaleDO [address] [place] [address] Referral ID Status Reason Start Date Expiration Date Visits Requested Visits Authorized [id number] Pending Review Specialty Services Required 05/19/2024 11/15/2024 1 1 [facility] Summary Purpose Family History No Family History Records FoundNo Family History Records FoundNo Family History Records Found Advance Directives No Advanced Directives Records FoundNo Advanced Directives Records FoundNo Advanced Directives Records Found Reason for Referral Specialty Diagnoses / Procedures Referred By Contac t Referred To Contact Diagnoses Internal carotid artery stenosis, right Procedures Vas carotid duplex bilateral Andrew Terrell MD [address] [place] [address], [address], [address] [place] [address] Referral ID Status Reason Start Date Expiration Date V isits Requested Visits Authorized [id number] Pending Review 01/14/2024 01/13/2025 1 1 Additional Source Comments (unrecognized sect ion and content) No Status Records FoundNo Status Records FoundNo Status Records Found INFORMATION SOURCE (unrecogn ized section and content) DATE CREATED AUTHOR 09/04/2019 [facility] DATE CREATED AUTHOR AUTHOR'S ORGANIZ ATION 09/30/2022 [facility] DATE CREATED AUTHOR AUTHOR'S ORGANIZ ATION 02/18/2025 [facility] EPIC Care Teams (unrecognized sec tion and content) Wild Oyster Harvester Relationship Specialty Start Date End Date Kiko Zurita MD PCP - General Family Medicine 04/07/23 Azul Quezada NP [address] [place] [address] Referring Physician Nurse Practitioner 04/07/23 Wild Oyster Harvester Relationship Specialty Start Date End Date Kiko Zurita MD [address] [place] [address] PCP - General Family Medicine 10/24/23 Azul Quezada NP [address] [place] [address] Referring Physician Nurse Practitioner 04/07/23 Wild Oyster Harvester Relationship Specialty Start Date End Date Kiko Zurita MD [address] [place] [address] PCP - General Family Medicine 10/24/23 Azul Quezada NP [address] [place] [address] Referring Physician Nurse Practitioner 04/07/23 Wild Oyster Harvester Relationship Specialty Start Date End Date Kiko Zurita MD [address] [place] [address] PCP - General Family Medicine 10/24/23 Azul Quezada NP [address] [place] [address] Referring Physician Nurse Practitioner 04/07/23 Wild Oyster Harvester Relationship Specialty Start Date End Date Kiko Zurita MD [address] [place] [address] PCP - General Family Medicine 10/24/23 Azul Quezada NP [address] [place] [address] Referring Physician Nurse Practitioner 04/07/23 Wild Oyster Harvester Relationship Specialty Start Date End Date Kiko Zurita MD [address] [place] [address] PCP - General Family Medicine 10/24/23 Azul Quezada NP [address] [place] [address] Referring Physician Nurse Practitioner 04/07/23 Wild Oyster Harvester Relationship Specialty Start Date End Date Kiko Zurita MD [address] [place] [address] PCP - General Family Medicine 10/24/23 Azul Quezada NP [address] [place] [address] Referring Physician Nurse Practitioner 04/07/23 Wild Oyster Harvester Relationship Specialty Start Date End Date Kiko Zurita MD [address] [place] [address] PCP - General Family Medicine 10/24/23 Azul Quezada NP [address] [place] [address] Referring Physician Nurse Practitioner 04/07/23 Wild Oyster Harvester Relationship Specialty Start Date End Date Kiko Zurita MD [address] [place] [address] PCP - General Family Medicine 10/24/23 Azul Quezada NP [address] [place] [address] Referring Physician Nurse Practitioner 04/07/23 Wild Oyster Harvester Relationship Specialty Start Date End Date Kiko Zurita MD [address] [place] [address] PCP - General Family Medicine 10/24/23 Auzl Quezada NP [address] [place] [address] Referring Physician Nurse Practitioner 04/07/23 Wild Oyster Harvester Relationship Specialty Start Date End Date Kiko Zurita MD [address] [place] [address] PCP - General Family Medicine 10/24/23 Azul Quezada NP [address] [place] [address] Referring Physician Nurse Practitioner 04/07/23 Wild Oyster Harvester Relationship Specialty Start Date End Date Azul Quezada, GENERAL PARTNER-IRRIGATOR [employer] [address] [place] [address] PCP - General Nurse Practitioner 08/30/19 Wild Oyster Harvester Relationship Specialty Start Date End Date Kiko Zurita MD [address] [place] [address] PCP - General Family Medicine 10/24/23 Azul Quezada NP [address] [place] [address] PCP - ACO Reach 10/29/24 Azul Quezada NP [address] [place] [address] Referring Physician Nurse Practitioner 04/07/23 Wild Oyster Harvester Relationship Specialty Start Date End Date Kiko Zurita MD [address] [place] [address] PCP - General Family Medicine 10/24/23 Azul Quezada NP [address] [place] [address] PCP - ACO Reach 10/29/24 Azul Quezada NP [address] [place] [address] Referring Physician Nurse Practitioner 04/07/23 Wild Oyster Harvester Relationship Specialty Start Date End Date Kiko Zurita MD [address] [place] [address] PCP - General Family Medicine 10/24/23 Azul Quezada NP [address] [place] [address] PCP - ACO Reach 10/29/24 Azul Quezada NP [address] [place] [address] Referring Physician Nurse Practitioner 04/07/23 Wild Oyster Harvester Relationship Specialty Start Date End Date Kiko Zurita MD [address] [place] [address] PCP - General Family Medicine 10/24/23 Azul Quezada NP [address] [place] [address] PCP - ACO Reach 10/29/24 Azul Quezada NP [address] [place] [address] Referring Physician Nurse Practitioner 04/07/23 Wild Oyster Harvester Relationship Specialty Start Date End Date Kiko Zurita MD [address] [place] [address] PCP - General Family Medicine 10/24/23 Azul Quezada NP [address] [place] [address] PCP - ACO Reach 10/29/24 Azul Quezada NP [address] [place] [address] Referring Physician Nurse Practitioner 04/07/23 Wild Oyster Harvester Relationship Specialty Start Date End Date Kiko Zurita MD [address] [place] [address] PCP - General Family Medicine 10/24/23 Azul Quezada NP [address] [place] [address] PCP - ACO Reach 10/29/24 Azul Quezada NP [address] [place] [address] Referring Physician Nurse Practitioner 04/07/23 Reason for Visit (unrecogniz ed section and content) Reason Comments Colonoscopy Pt presents today fo r a colonoscopy consult. He states that he did have a colonoscopy about 5 years ago and they found a polyp. Pt denies abdominal pain, changes in bowel movements, or any rectal bleeding. Pt denies any family hx of colon cancer. Reason Comments Med Refill Reason Comments COPD FOR RECORDS PERTAINING TO PATIENTS WHO ARE [...] BE BASED ON THE PRIMARY CLINICAL RECORDS. [email or web address] provides no warranty or guarantee of the accuracy or completeness of information in this document.
--- OUTSIDE RECORDS SUMMARY | 2025-05-09 02:47 | XMS_ITS | Encounter Summary ---
Author Organization [facility] Address [address] [place] [address] Care Team Providers Care Paving Inspector Name Role Phone Azul Quezada ELEVATOR CONDUCTOR Unavailable [phone] Kiko Zurita MD Primary Care Provider [phone] Azul Quezada ELEVATOR CONDUCTOR Unavailable [phone] Encounter Details Date Type Department Care Team (Late st Contact Info) Description 12/08/2023 Orders Only [facility] [address] [place] [address] Herminio Hamlin MD [address] [place] [address] Social History Tobacco Use Types Packs/Day Years [...] often do you attend chur ch or mandaeism services? Never 11/13/2023 Do you belong to any clubs o r organizations such as confucianist groups, unions, fraternal or athletic groups, or [...] Recorded Patient Health Questionnaire-2 Score 2 10/30/2023 [facility] Questionnaire Answer Date [...] place to sleep or slept in a mcc (including now)? No 11/13/2023 Sex and Gender Information Value Date Recorded Sex Assigned at Not on file Legal Sex Male 6:45 PM EDT Gender Identity Not on file Sexual Orientation Not on file documented as of this encounter Plan of Treatment Upcoming Encounters Date Type Department Care Team (Late st Contact Info) Description 11/21/2025 4:30 PM EST [facility] [address] [place] [address] Azul Quezada NP [address] [place] [address] documented as of this encounter Procedures Procedure Name Priority Date/Time Associated Diagnosis Comments ELECTROCARDIOGRAM REPORT Routine 024 9:50 AM EDT XR CHEST 1 VIEW Routine 12/07/2023 9:48 AM EDT documented in this encounter Results * Electrocardiogram Report (12/07/2023 9:50 AM EDT) Herminio Hamlin MD IN CLINIC/BEDSIDE ORDERABLES Final Result * XR chest 1 view (12/07/2023 9:48 AM EDT) Anatomical Region Laterality Modality Chest Radiographic [place] ging us Herminio Hamlin MD IMG XR PROCEDURES Final Resul t documented in this encounter Visit Diagnoses Not on filedocumented in this encounter Care Teams Paving Inspector Relationship Specialty Start Date End Date Kiko Zurita MD [address] [place] [address] PCP - General Family Medicine 10/24/23 Azul Quezada NP [address] [place] [address] PCP - ACO Reach 10/29/24 Azul Quezada NP [address] [place] [address] Referring Physician Nurse Practitioner 04/07/23 documented as of this encounter
--- OUTSIDE RECORDS SUMMARY | 2025-05-09 02:47 | XMS_ITS | Encounter Summary ---
Author Organization [facility] Address [address] [place] [address] Care Team Providers Care Special Education Coordinator Name Role Phone Azul Quezada BEATER BOSS Unavailable [phone] Kiko Zurita MD Primary Care Provider Azul Quezada BEATER BOSS Unavailable [phone] Encounter Details Date Type Department Care Team (Late st Contact Info) Description 12/01/2023 Orders Only [facility] [address] [place] [address] Azul Quezada, BEATER BOSS [address] [place] [address] Social History Tobacco Use Types Packs/Day Years [...] any clubs o r organizations such as roman catholic groups, unions, fraternal or athletic groups, or [...] Recorded Patient Health Questionnaire-2 Score 2 10/30/2023 [facility] - Occupational Stress Questionnaire Answer Date [...] Office Visit [facility] [address] [place] [address] Azul Quezada NP [address] [place] [address] documented as of this encounter Procedures Procedure Name Priority Date/Time Associated Diagnosis Comments XR CHEST 1 VIEW Routine 11/30/2023 11:11 AM EDT ELECTROCARDIOGRAM REPORT Routine 024 10:55 AM EDT documented in this encounter Results * XR chest 1 view (11/30/2023 11:11 AM EDT) Anatomical Region Laterality Modality Chest Radiographic [place] ging Azul Quezada NP IMG XR PROCEDURES Final Result * Electrocardiogram Report (11/30/2023 10:55 AM EDT) us Azul Quezada BEATER BOSS IN CLINIC/BEDSIDE ORDERABLES Fi nal Result documented in this encounter Visit Diagnoses Not on filedocumented in this encounter Care Teams Special Education Coordinator Relationship Specialty Start Date End Date Kiko Zurita MD [address] [place] [address] PCP - General Family Medicine 10/24/23 Azul Quezada NP [address] [place] [address] PCP - ACO Reach 10/29/24 Azul Quezada NP [address] [place] [address] Referring Physician Nurse Practitioner 04/07/23 documented as of this encounter
--- OUTSIDE RECORDS SUMMARY | 2025-05-09 02:47 | XMS_ITS | Encounter Summary ---
Author Organization [facility] Address [address] [facility] [place] [address] Care Team Providers Care Press Smith Helper Name Role Phone Azul Quezada INTEL RECRUITER Unavailable [phone] Kiko Zurita MD Primary Care Provider [phone] Azul Quezada INTEL RECRUITER Unavailable [phone] Encounter Details Date Type Department Care Team (Late st Contact Info) Description 11/24/2023 Orders Only [facility] [address] [place] [address] Azul Quezada, INTEL RECRUITER [address] [place] [address] Social History Tobacco Use Types Packs/Day Years [...] often do you attend chur ch or yazdanism services? Never 11/13/2023 Do you belong to any clubs o r organizations such as restorationist groups, unions, fraternal or athletic groups, or [...] Recorded Patient Health Questionnaire-2 Score 2 10/30/2023 [facility] - Occupational Stress Questionnaire Answer Date Recorded [...] place to sleep or slept in a fdc (including now)? No 11/13/2023 Sex and Gender [...] Office Visit [facility] [address] [place] [address] Azul Quezada NP [address] [place] [address] documented as of this encounter Procedures Procedure Name Priority Date/Time Associated Diagnosis Comments ELECTROCARDIOGRAM REPORT Routine 024 3:45 PM EST documented in this encounter Results * Electrocardiogram Report (10/21/2023 3:45 PM EST) us Azul Quezada NP IN CLINIC/BEDSIDE ORDERABLES Fi nal Result documented in this encounter Visit Diagnoses Not on filedocumented in this encounter Care Teams Press Smith Helper Relationship Specialty Start Date End Date Kiko Zurita MD [address] [place] [address] PCP - General Family Medicine 10/24/23 Azul Quezada NP [address] [place] [address] PCP - ACO Reach 10/29/24 Azul Quezada NP [address] [place] [address] Referring Physician Nurse Practitioner 04/07/23 documented as of this encounter
--- OUTSIDE RECORDS SUMMARY | 2025-05-09 02:47 | XMS_ITS | Clinical Summary ---
Author Organization [facility] Address [address] [place] [address] Care Team Providers Care Senior Java Web Developer Name Role Phone Azul Quezada DENTAL TECHNOLOGY ADVISOR Unavailable [phone] Kiko Zurita MD Primary Care Provider [phone] Azul Quezada DENTAL TECHNOLOGY ADVISOR Unavailable [phone] Allergies Active Allergy Reactions Criticality Noted [...] in the evening 90 tablet 1 12/28/19 Active FLUoxetine (PROzac) 20 MG capsuleIndications :Depression with anxiety Take 1 capsule (20 mg) by mouth Daily 90 capsule 1 02/16/20 Active traZODone (Desyrel) 50 MG tabletIndications: Insomnia, unspecified Take 1 tablet (50 mg) by mouth at bedtime 90 tablet 1 02/16/20 Active Active Problems Problem Noted Date Diagnosed Date shelter current use of inhaled steroid COPD with [...] (BMI 25.0-29.9) 12/15/2023 Encounter for subsequent [facility] wellness visit (AWV) in Medicare patient 11/13/2023 [...] have asked the pt to contact his wireworker for management of this exacerbation He states [...] of the risks of continued smoking: stroke, [place], all forms of cancer, lung disease, and . Options for quitting smoking include: cold turkey, hypnosis, acupuncture, nicotine replacement meds (gum, lozenges, and patches), Buproprion, and Varenicline. At this time pt is encouraged to evaluate their goals for wanting to quit smoking, and reach out to provider when ready to start this process Encounters Date Type Department Care Team Description 03/17/2025 Patient Outreach [facility] [address] [place] [address] Shazia Coffman LSW 03/16/2025 Abstract [facility] [address] [place] [address] Azul Quezada NP 03/16/2025 Orders Only [facility] [address] [place] [address] Herminio Hamlin MD 02/15/2025 1:40 PM EDT Office Visit [facility] [address] [place] [address] Azul Quezada NP Depression with anxiety (Primary Dx); Cerebrovascular accident (CVA), unspecified mechanism (HCC); Overweight (BMI 25.0-29.9); Centrilobular emphysema (HCC); Insomnia, unspecified 02/15/2025 Bamboo flowsheet [facility] [address] [place] [address] Azul Quezada NP from Last 3 Months Immunizations Immunization Administration [...] any clubs o r organizations such as sabianism groups, unions, fraternal or athletic groups, or [...] Recorded Patient Health Questionnaire-2 Score 2 11/16/2024 [facility] - Occupational [...] EST Office Visit [facility] [address] [place] [address] Azul Quezada NP [address] [place] [address] Health Maintenance Due Date Last Done Comments CT Colonography 1960 FIT-DNA 1960 FIT 1960 FOBT 1960 Lung Cancer Screening Shared Decision Making 1960 Sigmoidoscopy 1960 Influenza Vaccine (#1) 2025 , 2020, 08/04/2019, Additional history exists Medicare Annual Wellness (AWV) 11/16/2025 0 11/16/2024, 11/13/2023, 11/13/2023 Colonoscopy 06/15/2029 06/15/2024 Colorectal Cancer Screening 06/15/2029 Procedures Procedure Name Priority Date/Time Associated Diagnosis Comments XR CHEST 1 VIEW Routine 03/16/2025 10:24 AM EDT from Last 3 Months Results * XR chest 1 view (03/16/2025 10:24 AM EDT) Anatomical Region Laterality Modality Chest Radiographic [place] ging Herminio Hamlin MD IMG XR PROCEDURES Final Resul t from Last 3 Months Insurance MEDICARE Care Teams Senior Java Web Developer Relationship Specialty Start Date End Date Kiko Zurita MD [address] [place] [phone] PCP - General Family Medicine 10/24/23 Azul Quezada NP [address] [place] [address] PCP - ACO Reach 10/29/24 Azul Quezada NP [address] [place] [address] Referring Physician Nurse Practitioner 04/07/23
--- OUTSIDE RECORDS SUMMARY | 2025-05-09 02:47 | XMS_ITS | Encounter Summary ---
Author Organization [facility] Address [address] [facility] [place] [address] Care Team Providers Care Process Control Board Operator Name Role Phone Kiko Zurita MD Primary Care Provider Azul Quezada NP Unavailable [phone] Kiko Zurita MD Primary Care Provider zAul Quezada NP Unavailable [phone] Encounter Details Date Type Department Care Team (Late st Contact Info) Description 10/08/2023 [facility] [address] [place] [phone] Herminio Hamlin MD [address] [place] [address] Social History Tobacco Use Types Packs/Day Years [...] 4:30 PM EST Office Visit [facility] [address] [place] [address] Azul Quezada NP [address] [place] [address] documented as of this encounter Procedures Procedure [...] on filedocumented in this encounter Care Teams Process Control Board Operator Relationship Specialty Start Date End Date Kiko Zurita MD PCP - General Family Medicine 04/07/23 10/23/23 Kiko Zurita MD [address] [place] [address] PCP - General Family Medicine 10/24/23 Azul Quezada NP [address] [place] [address] PCP - ACO Reach 10/29/24 Azul Quezada NP [address] [place] [address] Referring Physician Nurse Practitioner 04/07/23 documented as of this encounter
--- OUTSIDE RECORDS SUMMARY | 2025-05-09 02:47 | XMS_ITS | Encounter Summary ---
Author Organization [facility] Address [address] [facility] [place] [address] Care Team Providers Care Christmas Tree Grader Name Role Phone Azul Quezada CAR RENTAL SERVICE ATTENDANT Unavailable [phone] Kiko Zurita MD Primary Care Provider Azul Quezada CAR RENTAL SERVICE ATTENDANT Unavailable [phone] Encounter Details Date Type Department Care Team (Late st Contact Info) Description 10/28/2023 [facility] [address] [place] [address] Azul Quezada, CAR RENTAL SERVICE ATTENDANT [address] [place] [address] Social History Tobacco Use Types Packs/Day Years [...] Visit [facility] [address] [place] [address] Azul Quezada NP [address] [place] [address] documented as of this encounter Visit Diagnoses Not on filedocumented in this encounter Care Teams Christmas Tree Grader Relationship Specialty Start Date End Date Kiko Zurita MD [address] [place] [address] PCP - General Family Medicine 10/24/23 Azul Quezada NP [address] [place] [address] PCP - ACO Reach 10/29/24 Azul Quezada NP [address] [place] [address] Referring Physician Nurse Practitioner 04/07/23 documented as of this encounter
--- OUTSIDE RECORDS SUMMARY | 2025-05-09 02:47 | XMS_ITS | Patient Health Record ---
Author Organization [facility] in [place] Address [address] [place] [address] Care Team Providers Care Box Stapler Name Role Phone Azul Quezada CNP Primary Care Provider Unavail able Jameson White Unavailable [phone] Allergies No Known Allergies Results Component Value Reference Range Notes CT Chest Low Dose for Screen ing* Reviewed date:09/08/2024 07:34:23 AM Interpretation: Performing Lab: Notes/Report: CT chest wo con Reviewed date:12/07/2024 02:32:11 PM Interpretation: Performing Lab: Notes/Report: Source Facility: [place] [address] CT Scan Report Signed Patient: SAM KRAMER MR#: [id number] : 1960 Acct:[id number] Age/Sex: 64 / M ADM Date: 12/07/24 Loc: CT Attending Dr: Jameson White D.O. Ordering Physician: Jameson White D.O. Date of Service: 12/07/24 Procedure(s): CT chest wo con Accession Number(s): [id number] cc: Azul Quezada NP [place] [address] Patient Name: SAM KRAMER MRN: [id number] date: 1960 Sex: M Assigned Patient Location: CT Current Patient Location: CT Accession/Order Number: [id number] Exam Date: 12/07/2024 13:12 Report Date: 12/07/2024 13:15 At the request of: JAMESON WHITE DO Procedure: CT chest wo con CT CHEST WITHOUT IV CONTRAST: CLINICAL HISTORY: lung nodules COMPARISON: Lung screening CT 09/08/2024 TECHNIQUE: Spiral images were obtained through the chest without IV contrast. This CT exam was performed using one or more following dose reduction techniques: Automated exposure control, adjustment of the mA and/or kV according to patient size, or use of iterative reconstruction technique. FINDINGS: Mediastinum:Thoracic aorta demonstrates moderate calcification without aneurysm. Pulmonary trunk appears nondilated. No pericardial effusion. Calcified mediastinal and right hilar lymph nodes. The esophagus is grossly unremarkable. Small hiatal hernia. Lungs:Emphysema. Diffuse bronchial wall thickening. Calcified granulomas. No consolidation pneumothorax or pleural effusion. The previously identified nodularity involving the lower lobes has resolved. No new or suspicious pulmonary nodules are present. Benign-appearing subpleural nodule involving the right middle lobe series 4 image 63. Additional benign-appearing nodules involving the right lower lobe series 4 image 83 and 86. Abd:Liver and splenic granulomas. Soft tissues/Bones: No acute process. Osseous structures demonstrate degenerative change. CT/CT chest wo con IMPRESSION: No suspicious pulmonary nodules as seen on today's study. Previously identified nodules involving the lower lobes have resolved. LUNG RADS: Category 2, Benign appearance or behavior. Management: Continue annual lung screening with LDCT in 12 months. Impression dictated by: Grupo Marsh Jr., D.O.12/07/2024 1:15 PM Dictation Location: [place] [address] Electronically authenticated by: [id number] Y Date: 12/07/2024 13:15 Dictated By: Grupo Marsh M.D. Signed By: 12/07/241317 DD/ 14 TD/TT: Field Mechanic/Site Lead: [place] [address] CT Scan Report Signed Patient: MATTY KRAMER MR#: [id number] : 1960 Acct:[id number] Age/Sex: 64 / M ADM Date: 12/07/24 Loc: CT Attending Dr: Jameson White D.O. Ordering Physician: Jameson White D.O. Date of Service: 12/07/24 Procedure(s): CT marco st wo con Accession Number(s): [id number] cc: Azul Quezada NP [address] [address] Patient Name: SAM KRAMER MRN: [id number] date: 1960 Sex: M Assigned Patient Location: CT Current Patient Location: CT Accession/Order Numb er: [id number] Exam Date: 12/07/2024 13:12 Report Date: 12/07/2024 13:15 At the request of: JAMESON WHITE DO Procedure: CT chest wo con CT CHEST WITHOUT IV CONTRAST: CLINICAL HISTORY: jeison ng nodules COMPARISON: Lung screening CT 09/08/2024 TECHNIQUE: Spiral im ages were obtained through the chest without IV contrast. This CT exam was performed using one or more following dose reduction techniques: Automate d exposure control, adjustment of the mA and/or kV according to patient size, or use of iterative reconstruction technique. FINDINGS: Mediastinum:Thoracic aorta demonstrates moderate calcification without aneurysm. Pulmonary trunk appears nondilated. No pericardial effusion. Calcified mediastina l and right hilar lymph nodes. The esophagus is grossly unremarkable. Small hiatal hernia. Lungs:Emphysema. Dif fuse bronchial wall thickening. Calcified granulomas. No consolidation pneumothorax or pleural effusion. The previously identified nodularity involving the lower lobes has resolved. No new or suspicious pulmonary nodules are present. Benign-appearing subpleural nodule involving the right middle lobe series 4 image 63. Additional benign-appearing nodules involving the right lower lobe series 4 image 83 and 86. Abd:Liver and spleni c granulomas. Soft tissues/Bones: No acute process. Osseous structures demonstrate degenerative change. C T/CT chest wo con IMPRESSION: No suspicious pulmon kristine nodules as seen on today's study. Previously identified nodules involving the lower lobes have resolved. LUNG RADS: Category 2, Benign appearance or behavior. Management: Continue annual lung screening with LDCT in 12 months. Impression dictated by: Grupo Marsh Jr., D.O.12/07/2024 1:15 PM Dictation Location: [place] Electronically authenticated by: [id number] Y Date: 12/07/2024 13:15 Dictated By: Grupo Marsh M.D. Signed By: 12/07/24 1318 DD/ 14 TD/TT: Field Mechanic/Site Lead: CT Chest w/o contrast Reviewed date:12/07/2024 01:48:27 PM Interpretation: Performing Lab: Notes/Report: HEMOGLOBIN Reviewed date:10/26/2024 07:27:51 AM Interpretation: Performing Lab: Notes/Report: [facility] , Hemoglobin 14.8 14.0-18.0 g/dL Performing Lab: see note ML - [facility] CT lung screening low-dose Reviewed date:09/08/2024 07:39:04 AM Interpretation: Performing Lab: Notes/Report: Source Facility: [facility] [place] [address] [place] [address] CT Scan Report Signed Patient: SAM KRAMER MR#: [id number] : 1960 Acct:[id number] Age/Sex: 64 / M ADM Date: 09/06/24 Loc: CT Attending Dr: Jameson White D.O. Ordering Physician: Jameson White D.O. Date of Service: 09/06/24 Procedure(s): CT lung screening low-dose Accession Number(s): [id number] cc: Azul Quezada NP [place] [id number] Patient Name: SAM KRAMER MRN: [id number] date: 1960 Sex: M Assigned Patient Location: CT Current Patient Location: Accession/Order Number: [id number] Exam Date: 09/06/2024 14:22 Report Date: 09/08/2024 05:49 At the request of: JAMESON WHITE Procedure: CT lung screening low-dose EXAMINATION: [...] Signed By: 09/08/24 0551 DD/ 0549 TD/TT: Field Mechanic/Site Lead: [place] [address] CT Scan Report Signed Patient: MATTY KRAMER MR#: [id number] : 1960 Acct:[id number] Age/Sex: 64 / M ADM Date: 09/06/24 Loc: CT Attending Dr: Jameson White D.O. Ordering Physician: Jameson White D.O. Date of Service: 09/06/24 Procedure(s): CT kiran g screening low-dose Accession Number(s): [id number] cc: Azul Quezada MORTGAGE PROCESSOR [place] [address] Patient Name: SAM KRAMER MRN: [id number] date: 1960 Sex: M Assigned Patient Location: CT Current Patient Location: Accession/Order Numb er: [id number] Exam Date: 14:22 Report Date: 09/08/2024 05:49 At the request of: JAMESON WHITE Procedure: CT lung screening low-dose EXAMINATION: CT lung screening low-dose HISTORY: Nicotine Dependence COMPARISON: CT lung screening 04/29/2023 TECHNIQUE: Axial, Coronal, and Sagittal images were created without the administration of IV contrast material. Dose reduction techniques were achieved by using automated exposure control and/or adjustment of mA and/or kV according to patient size and/ or use of iterative reconstruction technique. FINDINGS: LUNGS: New spiculate d, wispy opacity within right lower lobe posterior basilar segment, 1.9 cm. The re are 3 new irregular/spiculated opacities within posterior left lung base within or near the costophrenic angle; the largest 2 are 1.4 cm and 1.3 c m. Multiple nonspecific small pleural-based nodules and wispy opacities scattered within the lungs; grossly stable. PLEURA: No mass, effusion, or pneumothorax. VASCULATURE: No abnormality. ROSMERY: Calcified lymp h nodes suggestive of chronic granulomatous disease. MEDIASTINUM: No mass or pathologic adenopathy. CARDIAC: No enlargem ent, pericardial thickening, or pericardial effusion. Coronary Artery calcifications: AORTA: No aneurysm o r dissection. CHEST WALL: No mass or axillary adenopathy BONES: No bone lesio n or fracture. LIMITED ABDOMEN: No suspicious findings. Limited images of the upper abdomen. OTHER: Negative. C T/CT lung screening low-dose IMPRESSION: 1. Lung-RADS Categor y 4A- Suspicious. Findings for which additional diagnostic testing and/ or tiss ue sampling is recommended. 3 month LDCT; PET/CT may be used when there is a >= 8 mm solid component. 2. The new findings may represent infectious infiltrates. Follow-up CT chest in 3 months is recommended. Electronically authenticated by: DEVEN BOOTH Date: 09/08/2024 05:49 Dictated By: Deven Booth M.D. Signed By: 09/08/24 0551 DD/ 0549 TD/TT: Field Mechanic/Site Lead: CBC AUTO DIFF Reviewed date:07/06/2024 03:15:51 PM Interpretation: Performing Lab: Notes/Report: [facility] , White Blood Count 8.7 4.0-11.0 10 3/uL Red Blood Count 4.58 4.70-6.10 10 6/uL Hemoglobin 13.9 14.0-18.0 g/dL Hematocrit 43.1 42.0-54.0 % Mean Corpuscular Volume 94.1 80.0-94.0 fL Mean Corpuscular Hemoglobin 30.3 25.9-34.0 pg Mean Corpuscular HGB Conc 32.3 29.9-35.2 g/dL Red Cell Distribution Width 12.8 11.0-15.0 % Platelet Count 326 150-450 10 3/uL Mean Platelet Volume 10.1 9.5-13.5 fL Neutrophils Percent Auto 75.0 43.0-75.0 % Lymphocytes Percent Auto 14.0 20.5-60.0 % Monocytes Percent Auto 9.7 1.7-12.0 % Eosinophils Percent Auto 0.1 0.9-7.0 % Basophils Percent Auto 0.9 0.2-2.0 % Immature Granulocytes Pct Auto 0.3 0.0-0.5 % Neutrophils Absolute Auto 6.5 1.4-6.5 10 3/uL Lymphocytes Absolute Auto 1.2 1.2-3.8 10 3/uL Monocytes Absolute Auto 0.9 0.3-0.8 10 3/uL Eosinophils Absolute Auto 0.0 0.0-0.7 10 3/uL Basophils Absolute Auto 0.1 0.0-0.1 10 3/uL Immature Granulocytes Abs Auto 0.03 0.00-0.03 10 3/uL Performing Lab: see note ML - [facility] LB CBC W/AUTO DIFF Reviewed date:07/06/2024 03:47:50 PM Interpretation: Performing Lab: Notes/Report: Reason For Referral No Information Medications Medication SIG (Take, Route, Frequency, Duration) Notes Start Date End Date Status hydrOXYzine HCl 25 MG TAKE 1 TO 2 TABLET S BY MOUTH EVERY 8 HOURS NEEDED FOR ANXIETY for up to TEN days Oral for 10 Days Active Ipratropium-Albuterol 0.5-2.5 (3) MG/3ML 3mL Inhalation 6 times a day for 90 days Active FLUoxetine HCl 20 MG 1 tablet Oral for 30 days Active Albuterol Sulfate HFA 108 (90 Base) MCG/ACT 2 puffs as needed for SOB Inhalation Q4H for 90 days Dispense #3 inhalers Active Spiriva Respimat 2.5 MCG/ACT 2 puffs Inhalation QD Active Budesonide-Formoterol Fumarate 160-4.5 MCG/ACT 2 puffs as needed for SOB Inhalation Q4H Rinse after use Active predniSONE 5 MG 1 tablet Orally Once a day for 30 days Take with food 03/14/2025 Active Aspirin Low Dose 81 MG TAKE 1 TABLET BY MOUTH ONCE DAILY Oral for 30 Days Active Atorvastatin Calcium 40 MG TAKE 1 TABLET BY MOUTH DAILY Oral for 30 Days Active Immunizations Vaccine Route Administration Date Status Comme nts Abrysvo Unknown 08/30/2024 Administered Flu, Flucelvax (76313) 6 mos and older, single-dose syringe (5461-2383) Unknown 08/16/2024 Administered Social History Tobacco Use: Social History Observation [...] Problem Status W/U Status Risk Notes Problem Centrilobular emphysema (99649821) Centrilobular emphysema (J43.2) Active confirmed Prior treatments: Symbicort 160 + Spiriva 2.5 > Stiolto, Advair, Trelegy & Breo (does not tolerate dry powder inhalers) Problem Long-term current use of inhaled steroid (669767563) 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 (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.51) Active confirmed Problem [id number] FDC (current) use of systemic steroids (Z79.52) Active confirmed Problem Cannabis abuse (81491127) Marijuana abuse (F12.10) Active confirmed Problem Ex-tobacco user (finding) (232466448) History of tobacco abuse (Z87.891) Active confirmed 1ppd x ~35 years, quit 2021 Problem 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) Active confirmed Vital Signs Heart Rate 99 /min 03/14/2025 Temperature 96.8 degrees Fahrenheit 03/14/2025 Respiratory Rate 20 /min 03/14/2025 Oximetry 91 % 03/14/2025 Blood pressure diastolic 58 mm Hg 03/14/2025 Height 74 in 03/14/2025 Blood pressure systolic 104 mm Hg 03/14/2025 Weight 207.8 lbs 03/14/2025 BMI 26.68 kg/m2 03/14/2025 Procedures Procedure Date Ordered Date Performed Result Body Sit e PFT (16528, 88917, 19330) 10/12/2024 N/A Encounters Encounter Location Date Provider Diagnosis Pulmonary [address] [address] 08/17/2024 Jameson Samsa Centrilobular emphys promise J43.2 ; Multiple pulmonary nodules R91.8 ; Encounter for immunization Z23 ; Peripheral eosinophilia D72.19 ; History of tobacco abuse Z87.891 ; 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 Z79.51 and Encounter for screening for malignant neoplasm of respiratory organs Z12.[address] [address] 10/12/2024 Jameson Samsa Centrilobular emphys promise J43.2 ; Multiple pulmonary nodules R91.8 ; History of tobacco abuse Z87.891 and FDC (current) use of inhaled steroids Z79.[address] [address] 12/14/2024 Jameson Samsa Centrilobular emphys promise J43.2 ; Multiple pulmonary nodules R91.8 ; History of tobacco abuse Z87.891 ; 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 Z79.51 and Encounter for screening for malignant neoplasm of respiratory organs Z12.[address] [address] 03/14/2025 Jameson Samsa Centrilobular emphys promise J43.2 ; History of tobacco abuse Z87.891 ; FDC (current) use of systemic steroids Z79.52 and 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 Z79.51 Pulmonary Medicine [address] [address] 12/07/2024 [facility] Pul[facility] [place] [address] [facility] [place] [address] 12/21/2024 [facility] Pulmonary [facility] [address] [facility] [place] [address] 07/01/2024 [facility] Chronic obstructive pulmonary disease with (acute) exacerbation J44.1 and Peripheral eosinophilia D72.19 Pulmonary [facility] [place] [address] [place] [address] 07/19/2024 [facility] Centrilobular emphys promise J43.2 Pulmonary [facility] [address] [facility] [place] [address] 07/26/2024 [facility] Pulmonary [facility] [place] [address] [facility] [place] [address] 09/06/2024 [facility] Pulmonary [facility] [address] [facility] [place] [address] 09/08/2024 [facility] Pulmonary [facility] [address] [facility] [place] [address] 11/08/2024 [facility] Assessments Encounter Date Diagnosis (ICD Code) Assessment Notes Treatment Notes Treatment Clinical Notes Section Notes 08/17/2024 Centrilobular emphysema (ICD-10 - J43.2) Prior treatments: Symbicort 160 + Spiriva 2.5 > Stiolto, Advair, Trelegy & Breo (does not tolerate dry powder inhalers) Symptoms are beginning to worsen. Using multiple DuoNeb uses a day on top of Symbicort + Spiriva. Had exacerbations in September and December of this year. Concerned for DuoNeb overuse. Checked eosinophils again in June, but count was zero, so does not meet current Dupixent FDA-approved criteria. Discussed Ohtuvayre, a novel PDE3/PDE4 inhibitor, which can be used on top of triple inhaled therapy. Unclear if it will be covered or not. Initial paperwork was signed. [id number] encounter performed with the patient to document continued need for a nebulizer with nebulized medications. -Current nebulized medications: DuoNeb, anticipating Ohtuvayre -Recommendations: Ohtuvayre is only administered via nebulizer. Renew, refill, reorder nebulizer and supplies. 08/17/2024 Multiple pulmonary nodules (ICD-10 - R91.8) Will be monitored via LDCT. 10/12/2024 Centrilobular emphysema (ICD-10 - J43.2) Prior treatments: Symbicort 160 + Spiriva 2.5 > Stiolto, Advair, Trelegy & Breo (does not tolerate dry powder inhalers) Patient continues to feel poorly and believes he is worsening. He is agitated by the cost of his medications. He was advised to discuss this with his insurance regarding any formulary changes due to the new year. He still has enough Symbicort and Spiriva to continue on with his current therapy. He was not able to afford Ohtuvayre. He is asking me to write him a letter to states he cannot work at his job. I stated I cannot do that in good conscience. I can state that he may benefit from limited activity or a desk job, but not to stop work completely. He already has some disability from Tourette's syndrome. I recommended him look into disability for his lungs. His last PFT was in 2019 and was very severe with FEV1 of 27%. In the meantime, I suggested repeating a PFT for comparison. Since his breathing was doing poor, I also recommended other alternatives that may be cheaper. Unfortunately, that would be prednisone daily. Explained that there are multiple adverse effects with long-term steroid use. For now, the patient declined, but will contact me if he feels he needs to start something sooner. 10/12/2024 Multiple pulmonary nodules (ICD-10 - R91.8) LDCT 09/06/2024 showed new RLL opacity at 1.9cm and 3 LLL opacities largest 1.4cm. Overall, I suspect this is inflammatory or infectious in nature, but given his smoking history, cannot rule out neoplasm. He was scored RADS-4A; ordering a 3-month follow-up chest CT without contrast to document stability, which would be due in mid November 2024. 12/14/2024 Centrilobular emphysema (ICD-10 - J43.2) Prior [...] him from this). Discussed adverse effects of director long term care systemic steroids including, but not limited to: [...] LDCT screening which will be due 11/2025. 03/14/2025 History of tobacco abuse (ICD-10 - Z87.891) 1ppd x ~35 years, quit 2021 1ppd x ~35 years, quit 2022. LDCT due 11/2025. 07/01/2024 Chronic obstructive pulmonary disease with (acute) exacerbation (ICD-10 - J44.1) 07/01/2024 Peripheral eosinophilia (ICD-10 - D72.19) 07/19/2024 Centrilobular emphysema (ICD-10 - J43.2) Prior treatments: Symbicort 160 + Spiriva 2.5 > Stiolto, Advair, Trelegy & Breo (does not tolerate dry powder inhalers) 03/14/2025 Centrilobular emphysema (ICD-10 - J43.2) Prior [...] eosinophils, and he will need PFT. 03/14/2025 FDC (current) use of systemic steroids (ICD-10 - Z79.52) Discussed adverse effects of retirement systemic steroids including, but not limited to: increased risk of cataracts, elevated blood sugars/worsening of underlying diabetes mellitus, impaired wound healing, gastrointestinal ulcers, osteoporosis. 12/14/2024 History of tobacco abuse (ICD-10 - Z87.891) 1ppd x ~35 years, quit 2021 1ppd x ~35 years, quit 2022. Will resume annual LDCT screening beginning 11/2025. Do not restart smoking anything! 10/12/2024 History of tobacco abuse (ICD-10 - Z87.891) 1ppd x ~35 years, quit 2021 1ppd x ~35 years, quit 2022. Last LDCT 04/30/2023. LDCT was due 04/2024 but not done for some reason. Patient voiced he still wants it done, so rescheduled it to be due now. 08/17/2024 Encounter for immunization (ICD-10 - Z23) Discussed pulmonary-related vaccines today which involved shared clinical decision-making with the patient. -Influenza: Annual influenza vaccination is recommended. Explained that influenza can sometimes be fatal, especially in patients with underlying lung disease. Influenza vaccination is recommended for all people. He got it yesterday. -Pneumococcal: Reviewed the patient's pneumococcal vaccination record. The CDC currently recommends PCV-20 vaccination regardless of past pneumococcal vaccinations. Rx sent for Prevnar. -Respiratory Syncytial Virus (RSV): RSV vaccination is recommended for adults 60+, especially patients with respiratory comorbidities. The RSV vaccine is indicated for this patient. Rx sent for Arexvy. -Tdap: This was discussed due to the potential waning immunity of the Pertussis component. The CDC prefers Boostrix as a booster for those age 65+ (though any Tdap vaccine is acceptable). Rx sent for Boostrix. -COVID-19: This is the most contentious vaccine. There are case reports of serious adverse events with the COVID-19 vaccines. There are risks with roberto COVID-19 as well, with the potential for . I explained that the CDC recommends vaccination with boosters and I deferred the choice to the patient. 10/12/2024 FDC (current) use of inhaled steroids (ICD-10 - Z79.51) Patient was counseled to rinse & gargle with water after inhaled corticosteroid use. 08/17/2024 Peripheral eosinophilia (ICD-10 - D72.19) Previously had elevated eosinophils, but none present on CBC 07/06/2024 = 0.1% / abs. ct. zero. He is therefore not a Dupixent candidate. 12/14/2024 FDC (current) use of inhaled steroids (ICD-10 - Z79.51) Patient was counseled to rinse & gargle with water after inhaled corticosteroid use. 03/14/2025 FDC (current) use of inhaled steroids (ICD-10 - Z79.51) Patient was counseled to rinse & gargle with water after inhaled corticosteroid use. 08/17/2024 History of tobacco abuse (ICD-10 - Z87.891) 1ppd x ~35 years, quit 2021 1ppd x ~35 years, quit 2022. Last LDCT 04/30/2023. LDCT was due 04/2024 but not done for some reason. Patient voiced he still wants it done, so rescheduled it to be due now. 12/14/2024 Encounter for screening for malignant neoplasm [...] on smoking cessation/continued tobacco abstinence. Due 11/2025. 08/17/2024 FDC (current) use of inhaled steroids (ICD-10 - Z79.51) Patient was counseled to rinse & gargle with water after inhaled corticosteroid use. 08/17/2024 Encounter for screening for malignant neoplasm of [...] was counseled on smoking cessation/continued tobacco abstinence. LDCT was due 04/2024. Rescheduled it for now. 08/17/2024 Other Counseled not to smoke anything. 10/12/2024 Other Counseled not to smoke anything. 12/14/2024 Other 03/14/2025 Other Plan Of Treatment Pending Test Test Name Order Date PFT (19465, 12414, 25457) 10/12/2024 Insurance Providers Payer Name Payer Address Payer Phone Subscriber Number Group Number Insured Name Patient Relationship to Insured Coverage Start Date Coverage End Date [place] [address] [place] [address] [id number] Sam Kramer Self - patient is the insured 4 Medical (General) History Medical History History ICD Code Centrilobular emphysema J43.2 Allergic rhinitis J30.9 Bilateral carotid artery stenosis I65.23 Calcified lymph nodes I89.8 Depression with anxiety F41.8 Marijuana abuse F12.10 Peripheral eosinophilia D72.19 Tourette's F95.2 Osteoarthritis M19.90 Multiple pulmonary nodules R91.8 Vertebral artery occlusion, 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
[2025-05-09] MEDS: METHYLPREDNISOLONE SOD SUCC PF 125 MG/2 ML VIAL IVP (03:00)
[2025-05-09] MEDS: MAGNESIUM SULFATE IN WATER 2 GM/50 ML PREMIX IV (03:01)
[2025-05-09 03:08] LABS: Alanine Aminotransferase 24 U/L (16-63); Albumin Globulin Ratio 1.1; Albumin Level 3.8 g/dL (3.4-5.0); Alkaline Phosphatase 67 U/L (46-116); Anion Gap 11.5; Aspartate Amino Transferase 18 U/L (15-37); Blood Urea Nitrogen 21.0 mg/dL (7.0-18.0); Calcium 8.7 mg/dL (8.5-10.1); Carbon Dioxide 30.0 mmol/L (21.0-32.0); Chloride 104 mmol/L (98-107); Estimated GFR (African America >60 (>=60 mL/min/1.73m^2); Estimated GFR (Non-African Ame >60 (>=60 mL/min/1.73m^2); Globulin 3.6 g/dL; Glucose 97 mg/dL (74-106); Potassium 4.5 mmol/L (3.5-5.1); Sodium 141 mmol/L (136-145); Total Protein 7.4 g/dL (6.4-8.2)
[2025-05-09] MEDS: IPRATROPIUM/ALBUTEROL SULFATE 3 ML AMPUL.NEB IH ×4 (03:09→20:31)
[2025-05-09 03:15] LABS: NT Pro B Type Natriuretic Pept 95.0 pg/mL (<=900.0)
--- OUTSIDE RECORDS SUMMARY | 2025-05-09 05:52 | XMS_ITS | CCD ---
Author Organization [facility] Care Team Providers Care Museum Guide Name Role Phone SAMSA, JAMESON Admitting Unavailable SAMSA, JAMESON Attending Unavailable AICHHOLZ, YARD JACKER AZUL Referring Unavailable AICHHOLZ, YARD JACKER AZUL Primary Care Unavailable SAMSA, JAMESON Consulting Unavailable AICHHOLZ, YARD JACKER AZUL Admitting Unavailable AICHHOLZ, YARD JACKER AZUL Attending Unavailable AICHHOLZ, YARD JACKER AZUL Primary Care Unavailable AICHHOLZ, YARD JACKER AZUL Consulting Unavailable SAMSA, JAMESON Admitting Unavailable SAMSA, JAMESON Attending Unavailable AICHHOLZ, YARD JACKER AZUL Primary Care Unavailable YINGEBALMA, DR YARIEL Figueroa Consulting Unavailable SAMSA, JAMESON Consulting Unavailable AICHHOLZ, YARD JACKER AZUL Primary Care Unavailable DAREN, DR MAURO Admitting Unavailable DAREN, DR MAURO Attending Unavailable WHITNEY, DR YARIEL Figueroa Consulting Unavailable DAREN, DR MAURO Consulting Unavailable Kiko Zurita MD Primary Care Provider [phone] Aichholz LITERACY CONSULTANT, Azul Unavailable Kiko Zurita MD Primary Care Provider [phone] Aichholz LITERACY CONSULTANT, Azul Unavailable Aichholz CDL TEAM TRUCK DRIVER-YARD JACKER, Azul J Primary Care Provider Aichholz LITERACY CONSULTANT, Azul Unavailable AICHHOLZ, AZUL Attending Unavailable AICHHOLZ, AZUL Attending Unavailable AICHHOLZ, AZUL Attending Unavailable IBETH ARGUETA Attending Unavailable AICHHOLZ, AZUL Attending Unavailable Allergies Allergy Classification Reported Allergen(s) Allergy Type Date of Onset Reaction(s) Facility (20 sources) Honey bee venom Allergy to substance 0 Unknown [facility] (1 source) Bee Venom Protein (Honey Bee) Propensity to adverse reactions to drug [facility] Medic[facility] Current Medications Medication Drug Class(es) [...] suspension every 12 (twelve) hours 08/17/2024 Active [id number] 0.3 ml EPINEPHrine 1 mg/ml auto-injector (19 [...] or wheezing 09/27/2024 Active polyethylene glycol 3350 98740 mg powder for oral solution (3 sources) [...] Long-term current use of inhaled steroid; 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: [jail (current) use of inhaled steroids] Onset: 11-16-2024 [...] Reference Range Facility XR CHEST 2Von 11-16-2024 [place] [address] XRay Report Signed Patient: SAM KRAMER MR#: [id number] : 1960 Acct:[id number] Age/Sex: 64 / M ADM Date: 11/16/24 Loc: RAD Attending Dr: Azul Quezada NP Ordering Physician: Azul Quezada NP Date of Service: 11/16/24 Procedure(s): XR chest 2V Accession Number(s): [id number] cc: Azul Quezada NP [place] [id number] Patient Name: SAM KRAMER MRN: [id number] date: 1960 Sex: M Assigned Patient Location: RAD Current Patient Location: RAD Accession/Order Number: [id number] Exam Date: 11/16/2024 19:23 Report Date: 11/16/2024 [...] Carlos Knight M.D.11/16/2024 7:24 PM Dictation Location: [place] [address] Electronically authenticated by: [id number] Y Date: 11/16/2024 19:24 Dictated By: Carlos Knight M.D. Signed By: 11/16/241925 DD/ 23 TD/TT: Electrical Sign Servicer: [facility] Radiology, Radiologist, MD - 11/16/2024 [place] [address] XRay Report Signed Patient: SAM KRAMER MR#: [id number] : 1960 Acct:[id number] Age/Sex: 64 / M ADM Date: 11/16/24 Loc: RAD Attending Dr: Azul Quezada NP Ordering Physician: Azul Quezada NP Date of Service: 11/16/24 Procedure(s): XR chest 2V Accession Number(s): [id number] cc: Azul Quezada NP The [address] [address] Patient Name: SAM KRAMER MRN: [facility]:[id number] date: 1960 Sex: M Assigned Patient Location: [facility] Current Patient Location: RAD Accession/Order Number: [id number] Exam Date: 11/16/2024 19:23 Report Date: 11/16/2024 [...] Carlos Knight M.D.11/16/2024 7:24 PM Dictation Location: [place] [address] Electronically authenticated by: [id number] Y Date: 11/16/2024 19:24 Dictated By: Carlos Knight M.D. Signed By: 11/16/241925 DD/ 23 TD/TT: Electrical Sign Servicer: [employer] [facility] Study observation (narrative) [facility] [employer] XR CHEST 2VOrdered By: Radio logist Radiology on 11-16-2024 [facility] Work Phone: ALL HEMOGLOBINon 10-22-2024 Hemoglobin (Bld) [Mass/Vol] 14.8 g/dL 14.0 - 18.0 g/dL [employer] [facility] PSA TOTAL+% FREEon 4 % FREE PSA 26.0 % . [facility] Comment on above: The table below list [...] any other population of men. Performed at: [address] [id number] Rn Trauma: Mich Orozco PhD, Phone: [phone] Prostate specific Ag [Mass/Vol] 1.0 ng/mL 0.0 - 4.0 ng/mL [employer] Comment on above: [facility] ECLIA methodol ogy. According to the [employer] [employer], Serum PSA should decrease and [...] malignant disease. PSA, FREE 0.26 ng/mL N/A [facility] e Comment on above: [facility] ECLIA methodol ogy. [facility] e ALL CBC WITH AUTO DIFFon BASOPHILS ABSOLUTE AUTO 0.1 [facility] Basophils/100 WBC (Bld) 0.9 % 0.2 - 2.0 % [facility] Eosinophils/100 WBC (Bld) 0.1 % Low 0.9 - 7.0 % [facility] Erythrocyte distribution width (RBC) [Ratio] 12.8 % 11.0 - 15.0 % [facility] Hematocrit (Bld) [Volume fraction] 43.1 % 42.0 - 54.0 % [facility] e Hemoglobin (Bld) [Mass/Vol] 13.9 g/dL Low 14.0 - 18.0 g/dL [facility] IMMATURE GRANULOCYTES ABS AUTO 0.03 [facility] Immature granulocytes/100 WBC (Bld) 0.3 % 0.0 - 0.5 % [facility] Interpretation and review of laboratory results Abnormal [facility] LYMPHOCYTES ABSOLUTE AUTO 1.2 [facility] Lymphocytes/100 WBC (Bld) 14 % Low 20.5 - 60.0 % [facility] MCH (RBC) [Entitic mass] 30.3 pg 25.9 - 34.0 pg [facility] MCHC (RBC) [Mass/Vol] 32.3 g/dL 29.9 - 35.2 g/dL [facility] MCV (RBC) [Entitic vol] 94.1 fL High 80.0 - 94.0 fL [facility] MONOCYTES ABSOLUTE AUTO 0.9 High [facility] Monocytes/100 WBC (Bld) 9.7 % 1.7 - 12.0 % [facility] NEUTROPHILS ABSOLUTE AUTO 6.5 [facility] Neutrophils/100 WBC (Bld) 75 % 43.0 - 75.0 % [facility] Platelet mean volume (Bld) [Entitic vol] 10.1 [...] (Bld) [Mass/Vol] 42.0 pg/mL Normal <=900.0 [facility] Comment on above: Performed By: #### I NFLUAB #### [facility] [address] [place] [address] Dr. Tom Dotson CBC AUTO DIFFon 09-25-2022 BASO # 0.1 103/ul Normal 0.0-0.1 [facility] Comment on above: Performed By: #### C BC #### [facility] [address] [place] [address] Dr. Tom Dotson Basophils/100 WBC (Bld) 0.8 % Normal 0.2-2.0 [facility] Comment on above: Performed By: #### C BC #### [facility] [address] [place] [address] Dr. Tom Dotson EO # 0.0 103/ul Normal 0.0-0.7 [facility] Comment on above: Performed By: #### C BC #### [facility] [address] [place] [address] Dr. Tom Dotson Eosinophils/100 WBC (Bld) 0.0 % Critically low 0.9-7.0 [facility] Comment on above: Performed By: #### C BC #### [facility] [address] [place] [address] Dr. Tom Dotson Erythrocyte distribution width (RBC) [Ratio] 12.4 % Normal 11.0-15.0 [facility] Comment on above: Performed By: #### C BC #### [facility] [address] [place] [address] Dr. Tom Dotson Hematocrit (Bld) [Volume fraction] 43.6 % Normal 42.0-54.0 [facility] Comment on above: Performed By: #### C BC #### [facility] [address] [place] [address] Dr. Tom Dotson Hemoglobin (Bld) [Mass/Vol] 14.3 g/dL Normal 14.0-18.0 [facility] Comment on above: Performed By: #### C BC #### [facility] [address] [place] [address] Dr. Tom Dotson IG # 0.02 10e3/ul Normal 0.00-0.03 [facility] Comment on above: Performed By: #### C BC #### [facility] [address] [place] [address] Dr. Tom Dotson IG % 0.3 % Normal 0.0-0.5 [facility] Comment on above: Performed By: #### C BC #### [facility] [address] [place] [address] Dr. Tom Dotson LYMPH # 1.4 103/ul Normal 1.2-3.8 [facility] Comment on above: Performed By: #### C BC #### [facility] [address] [place] [address] Dr. Tom Dotson Lymphocytes/100 WBC (Bld) 17.3 % Critically low 20.5-60.0 [facility] Comment on above: Performed By: #### C BC #### [facility] [address] [place] [address] Dr. Tom Dotson MANUAL DIFF REQ NO Normal [facility] Comment on above: Performed By: #### C BC #### [facility] [address] [place] [address] Dr. Tom Dotson MCH (RBC) [Entitic mass] 29.8 pg Normal 25.9-34.0 [facility] Comment on above: Performed By: #### C BC #### [facility] [address] [place] [address] Dr. Tom Dotson MCHC (RBC) [Mass/Vol] 32.8 g/dL Normal 29.9-35.2 [facility] Comment on above: Performed By: #### C BC #### [facility] [address] [place] [address] Dr. Tom Dotson MCV (RBC) [Entitic vol] 90.8 fL Normal 80.0-94.0 [facility] Comment on above: Performed By: #### C BC #### [facility] [address] [place] [address] Dr. Tom Dotson MONO # 0.7 103/ul Normal 0.3-0.8 [facility] Comment on above: Performed By: #### C BC #### [facility] [address] [place] [address] Dr. Tom Dotson Monocytes/100 WBC (Bld) 9.4 % Normal 1.7-12.0 [facility] Comment on above: Performed By: #### C BC #### [facility] [address] [place] [address] Dr. Tom Dotson NEUT # 5.7 103/ul Normal 1.4-6.5 [facility] Comment on above: Performed By: #### C BC #### [facility] [address] [place] [address] Dr. Tom Dotson Neutrophils/100 WBC (Bld) 72.2 % Normal 43.0-75.0 [facility] Comment on above: Performed By: #### C BC #### [facility] [address] [place] [address] Dr. Tom Dotson Platelet mean volume (Bld) [Entitic vol] 9.6 fL Normal 9.5-13.5 [facility] Comment on above: Performed By: #### C BC #### [facility] [address] [place] [address] Dr. Tom Dotson PLT 331 103/ul Normal 150-450 [facility] Comment on above: Performed By: #### C BC #### [facility] [address] [place] [address] Dr. Tom Dotson RBC 4.80 106/ul Normal 4.70-6.10 [facility] Comment on above: Performed By: #### C BC #### [facility] [address] [place] [address] Dr. Tom Dotson WBC 7.8 103/ul Normal 4.0-11.0 [facility] Comment on above: Performed By: #### C BC #### [facility] [address] [place] [address] Dr. Tom Dotson CULTURE BLOODon 09-25-2022 Microscopic examination of blood, culture Culture Observations: NO GROWTH AT [address] [facility] Comment on above: Performed By: #### I NFLUAB #### [facility] [address] [place] [address] Dr. Tom Dotson Microscopic examination of blood, culture Culture Observations: NO GROWTH AT [address] [facility] Comment on above: Performed By: #### I NFLUAB #### [facility] [address] [place] [address] Dr. Tom Dotson Cov[facility]-19 [facility]on SARS-CoV-2 (COVID-19) RNA OLGA+probe Ql (Unsp spec) Not detected Normal NOT DETECTED [facility] Comment on above: Result Comment: When [...] for this test is supported by the Agricultural Equipment Operator of Health and Human Service's declaration that [...] used). Performed By: #### C VDTBH #### [facility] [address] [place] [address] Dr. Tom Dotson INFLUENZA A AND B [facility] 09-25 [facility] SEE BELOW Normal [facility] Comment on above: Result Comment: Nega tive for Flu A protein angiten. Infection due to Flu A cannot be ruled out. Flu A angiten in the sample may be below the detection limit of the test. Performed By: #### I NFLUAB #### [facility] [address] [place] [address] Dr. Tom [facility] Normal [facility] Comment on above: Result Comment: Nega tive for Flu B protein antigen. Infection due to Flu B cannot be ruled out. Flu B antigen in the sample may be below the detection limit of the test. Performed By: #### I NFLUAB #### [facility] [address] [place] [address] Dr. Tom Dotson INFLUENZA A AG Negative Normal NEGATIVE SEE COMMENT [facility] Comment on above: Performed By: #### I NFLUAB #### [facility] [address] [place] [address] Dr. Tom Dotson INFLUENZA B AG Negative Normal NEGATIVE SEE COMMENT [facility] Comment on above: Performed By: #### I NFLUAB #### [facility] [address] [place] [address] Dr. Tom Dotson LACTATE/LACTIC ACIDon 2022 Lactate [Moles/Vol] 0.7 mmol/L Normal 0.4-1.9 [facility] Comment on above: Performed By: #### L ACT #### [facility] [address] [place] [address] [address] Tom Dotson PROF CHEM 8 (BAS METB)on Anion gap [Moles/Vol] 9.3 mmol/L Normal [facility] Comment on above: Performed By: #### H STROPN, BMP, BNP #### [facility] [address] [place] [address] Dr. Tom Dotson Calcium [Mass/Vol] 8.8 mg/dL Normal 8.5-10.1 [facility] Comment on above: Performed By: #### H STROPN, BMP, BNP #### [facility] [address] [place] [address] Dr. Tom Dotson Chloride [Moles/Vol] 103 mmol/L Normal 98-107 [facility] Comment on above: Performed By: #### H STROPN, BMP, BNP #### [facility] [address] [place] [address] Dr. Tom Dotson CO2 [Moles/Vol] 31.1 mmol/L Normal 21.0-32.0 [facility] Comment on above: Performed By: #### H STROPN, BMP, BNP #### [facility] [address] [place] [address] Dr. Tom Dotson Creatinine [Mass/Vol] 0.77 mg/dL Normal 0.70-1.30 [facility] Comment on above: Performed By: #### H STROPN, BMP, BNP #### [facility] [address] [place] [address] Dr. Tom Dotson EGFR-AF QATARI >60 Normal >=60 [facility] Comment on above: Performed By: #### H STROPN, BMP, BNP #### [facility] [address] [place] [address] Dr. Tom Dotson EGFR-NON AF QATARI >60 Normal >=60 [facility] Comment on above: Performed By: #### H STROPN, BMP, BNP #### [facility] [address] [place] [address] Dr. Tom Dotson Glucose [Mass/Vol] 98 mg/dL Normal 74-[address] [facility] Comment on above: Performed By: #### H STROPN, BMP, BNP #### [facility] [address] [place] [address] [address] Tom Dotson Potassium [Moles/Vol] 4.4 mmol/L Normal 3.5-5.1 [facility] Comment on above: Performed By: #### H STROPN, BMP, BNP #### [facility] [address] [place] [address] [address] Tom Dotson Sodium [Moles/Vol] 139 mmol/L Normal 136-145 [facility] Comment on above: Performed By: #### H STROPN, BMP, BNP #### [facility] [address] [place] [address] Dr. Tom Dotson Urea nitrogen [Mass/Vol] 13.0 mg/dL Normal 7.0-18.0 [facility] Comment on above: Performed By: #### H STROPN, BMP, BNP #### [facility] [address] [place] [address] Dr. Tom Dotson Urea nitrogen/Creatinine [Mass ratio] 16.9 mg/mg Normal [facility] Comment on above: Performed By: #### H STROPN, BMP, BNP #### [facility] [address] [place] [address] Dr. Tom Dotson TROPONIN, HIGH SENSITIVITYon 09-25-2022 HSTROP 7.4 pg/mL Normal 4.0-76.1 [facility] Comment on above: Result Comment: CUT- OFF POINTS HAVE BEEN ESTABLISHED BASED ON THE FOURTH UNIVERSAL DEFINITIONS OF MYOCARDIAL INFARCTION. THE UPPER REFERENCE LIMIT (URL) OF TROPONIN, DEFINED THE 99TH PERCENTILE OF cTnI DISTRIBUTION IN A REFERENCE POPULATION, HAS BEEN CONFIRMED THE DECISION THRESHOLD FOR [place] DIAGNOSIS. Performed By: #### I NFLUAB #### [facility] [address] [place] [address] Dr. Tom Dotson XR CHEST 1 Von [...] YARIEL OLSON Date: 2022-09-25 10:55 Normal [facility] ASPERGILLUS AB, QUANTITATIVE DIDon 04-20-2022 Aspergillus flavus Negative Normal Neg:<1:1 [facility] Comment on above: Performed By: #### A SPDID #### [facility] [address] [place] [address] Dr. Tom Dotson Aspergillus fumigatus Negative Normal Neg:<1:1 [facility] Comment on above: Performed By: #### A SPDID #### [facility] [address] [place] [address] Dr. Tom Dotson Aspergillus niger Negative Normal Neg:<1:1 [facility] Comment on above: Performed By: #### A SPDID #### [facility] [address] [place] [address] [address] Tom Dotson ANTI NEUTROPHIL CYTOPLASMIC AB (ANCA) PRon 04-19-2022 Anti-MPO Antibodies <0.2 Normal 0.0-0.9 [facility] Comment on above: Result Comment: Perf ormed at: BN Performed By: #### C BC #### [facility] [address] [place] [address] Dr. Tom Dotson Anti-PR3 Antibodies <0.2 Normal 0.0-0.9 [facility] Comment on above: Result Comment: Perf ormed at: BN Performed By: #### C BC #### [facility] [address] [place] [address] Dr. Tom Dotson Atypical pANCA <1:20 Normal Neg:<1:20 [facility] Comment on above: Result Comment: The atypical pANCA pattern has been observed in a significant percentage of patients with ulcerative colitis, primary sclerosing cholangitis and autoimmune hepatitis. Performed at: CB Performed By: #### C BC #### [facility] [address] [place] [address] [address] Tom Dotson Cytoplasmic (C-ANCA) <1:20 Normal Neg:<1:20 [facility] Comment on above: Result Comment: Perf ormed at: CB Performed By: #### C BC #### [facility] [address] [place] [address] Dr. Tom Dotson Perinuclear (P-ANCA) <1:20 Normal Neg:<1:20 [facility] Comment on above: Result Comment: The presence of positive fluorescence exhibiting P-ANCA or C-ANCA patterns alone is not specific for the diagnosis of Nevin's Granulomatosis (WG) or microscopic polyangiitis. Decisions about treatment should not be based solely on ANCA IFA results. The International ANCA Group Consensus recommends follow up testing of positive sera with both ME-3 and MPO-ANCA enzyme immunoassays. As many as 5% serum samples are positive only by EIA. Ref. AM J Clin Pathol 1999;111:507-513. Performed at: CB Performed By: #### C BC #### [facility] [address] [place] [address] Dr. Tom Dotson IMMUNOGLOBULIN E, TOTALon Immunoglobulin E, Total 68 IU/mL Normal 6-495 [facility] Comment on above: Performed By: #### I GETOT #### [facility] [address] [place] [address] Dr. Tom Dotson ANGIOTENSION-CONVERTING ENZY ME (ELINOR)on 04-17-2022 ELINOR 28 U/L Normal 14-82 [facility] Comment on above: Performed By: #### A NGIOC #### [facility] [address] [place] [address] Dr. Tom Dotson CBC AUTO DIFFon 04-16-2022 BASO # 0.1 103/ul Normal 0.0-0.1 [facility] Comment on above: Performed By: #### I NFLUAB #### [facility] [address] [place] [address] Dr. Tom Dotson Basophils/100 WBC (Bld) 1.0 % Normal 0.2-2.0 [facility] Comment on above: Performed By: #### I NFLUAB #### [facility] [address] [place] [address] Dr. Tom Dotson EO # 0.0 103/ul Normal 0.0-0.7 [facility] Comment on above: Performed By: #### I NFLUAB #### [facility] [address] [place] [address] Dr. Tom Dotson Eosinophils/100 WBC (Bld) 0.1 % Critically low 0.9-7.0 [facility] Comment on above: Performed By: #### I NFLUAB #### [facility] [address] [place] [address] Dr. Tom Dotson Erythrocyte distribution width (RBC) [Ratio] 12.9 % Normal 11.0-15.0 [facility] Comment on above: Performed By: #### I NFLUAB #### [facility] [address] [place] [address] Dr. Tom Dotson Hematocrit (Bld) [Volume fraction] 44.8 % Normal 42.0-54.0 [facility] Comment on above: Performed By: #### I NFLUAB #### [facility] [address] [place] [address] Dr. Tom Dotson Hemoglobin (Bld) [Mass/Vol] 15.0 g/dL Normal 14.0-18.0 [facility] Comment on above: Performed By: #### I NFLUAB #### [facility] [address] [place] [address] Dr. Tom Dotson IG # 0.02 10e3/ul Normal 0.00-0.03 [facility] Comment on above: Performed By: #### I NFLUAB #### [facility] [address] [place] [address] Dr. Tom Dotson IG % 0.2 % Normal 0.0-0.5 [facility] Comment on above: Performed By: #### I NFLUAB #### [facility] [address] [place] [address] Dr. Tom Dotson LYMPH # 1.4 103/ul Normal 1.2-3.8 [facility] Comment on above: Performed By: #### I NFLUAB #### [facility] [address] [place] [address] Dr. Tom Dotson Lymphocytes/100 WBC (Bld) 17.6 % Critically low 20.5-60.0 [facility] Comment on above: Performed By: #### I NFLUAB #### [facility] [address] [place] [address] Dr. Tom Dotson MANUAL DIFF REQ NO Normal [facility] Comment on above: Performed By: #### I NFLUAB #### [facility] [address] [place] [address] Dr. Tom Dotson MCH (RBC) [Entitic mass] 30.9 pg Normal 25.9-34.0 [facility] Comment on above: Performed By: #### I NFLUAB #### [facility] [address] [place] [address] Dr. Tom Dotson MCHC (RBC) [Mass/Vol] 33.5 g/dL Normal 29.9-35.2 [facility] Comment on above: Performed By: #### I NFLUAB #### [facility] [address] [place] [address] Dr. Tom Dotson MCV (RBC) [Entitic vol] 92.2 fL Normal 80.0-94.0 [facility] Comment on above: Performed By: #### I NFLUAB #### [facility] [address] [place] [address] Dr. Tom Dotson MONO # 0.8 103/ul Normal 0.3-0.8 [facility] Comment on above: Performed By: #### I NFLUAB #### [facility] [address] [place] [address] Dr. Tom Dotson Monocytes/100 WBC (Bld) 9.6 % Normal 1.7-12.0 [facility] Comment on above: Performed By: #### I NFLUAB #### [facility] [address] [place] [address] Dr. Tom Dotson NEUT # 5.9 103/ul Normal 1.4-6.5 [facility] Comment on above: Performed By: #### I NFLUAB #### [facility] [address] [place] [address] Dr. Tom Dotson Neutrophils/100 WBC (Bld) 71.5 % Normal 43.0-75.0 [facility] Comment on above: Performed By: #### I NFLUAB #### [facility] [address] [place] [address] Dr. Tom Dotson Platelet mean volume (Bld) [Entitic vol] 9.9 fL Normal 9.5-13.5 [facility] Comment on above: Performed By: #### I NFLUAB #### [facility] [address] [place] [address] Dr. Tom Dotson PLT 325 103/ul Normal 150-450 [facility] Comment on above: Performed By: #### I NFLUAB #### [facility] [address] [place] [address] Dr. Tom Dotson RBC 4.86 106/ul Normal 4.70-6.10 [facility] Comment on above: Performed By: #### I NFLUAB #### [facility] [address] [place] [address] Dr. Tom Dotson WBC 8.2 103/ul Normal 4.0-11.0 [facility] Comment on above: Performed By: #### I NFLUAB #### [facility] [address] [place] [address] LUNG CANCER SCREENINGon [...] YARIEL OLSON Date: 2022-04-10 22:57 Normal [facility] CBC AUTO DIFFon 03-06-2022 BASO # 0.1 103/ul Normal 0.0-0.1 [facility] Comment on above: Performed By: #### C BC #### [facility] [address] [address] [address] Tom Dotson Basophils/100 WBC (Bld) 1.0 % Normal 0.2-2.0 [facility] Comment on above: Performed By: #### C BC #### [facility] [address] [address] [address] Tom Dotson EO # 2.5 103/ul Critically high 0.0-0.7 [facility] Comment on above: Performed By: #### C BC #### [facility] [address] [address] [address] Tom Dotson Eosinophils/100 WBC (Bld) 29.1 % Critically high 0.9-7.0 [facility] Comment on above: Performed By: #### C BC #### [facility] [address] [address] [address] Tom Dotson Erythrocyte distribution width (RBC) [Ratio] 12.8 % Normal 11.0-15.0 [facility] Comment on above: Performed By: #### C BC #### [facility] [address] [place] [address] Dr. Tom Dotson Hematocrit (Bld) [Volume fraction] 46.6 % Normal 42.0-54.0 [facility] Comment on above: Performed By: #### C BC #### [facility] [address] [place] [address] Dr. Tom Dotson Hemoglobin (Bld) [Mass/Vol] 14.4 g/dL Normal 14.0-18.0 [facility] Comment on above: Performed By: #### C BC #### [facility] [address] [place] [address] Dr. Tom Dotson IG # 0.04 10e3/ul Critically high 0.00-0.03 [facility] Comment on above: Performed By: #### C BC #### [facility] [address] [place] [address] Dr. Tom Dotson IG % 0.5 % Normal 0.0-0.5 [facility] Comment on above: Performed By: #### C BC #### [facility] [address] [place] [address] Dr. Tom Dotson LYMPH # 1.3 103/ul Normal 1.2-3.8 [facility] Comment on above: Performed By: #### C BC #### [facility] [address] [place] [address] Dr. Tom Dotson Lymphocytes/100 WBC (Bld) 15.1 % Critically low 20.5-60.0 [facility] Comment on above: Performed By: #### C BC #### [facility] [address] [place] [address] Dr. Tom Dotson MANUAL DIFF REQ NO Normal [facility] Comment on above: Performed By: #### C BC #### [facility] [address] [place] [address] Dr. Tom Dotson MCH (RBC) [Entitic mass] 29.5 pg Normal 25.9-34.0 [facility] Comment on above: Performed By: #### C BC #### [facility] [address] [place] [address] Dr. Tom Dotson MCHC (RBC) [Mass/Vol] 30.9 g/dL Normal 29.9-35.2 [facility] Comment on above: Performed By: #### C BC #### [facility] [address] [address] [address] Tom Dotson MCV (RBC) [Entitic vol] 95.5 fL Critically high 80.0-94.0 [facility] Comment on above: Performed By: #### C BC #### [facility] [address] [address] [address] Tom Dotson MONO # 0.8 103/ul Normal 0.3-0.8 [facility] Comment on above: Performed By: #### C BC #### [facility] [address] [address] [address] Tom Doston Monocytes/100 WBC (Bld) 9.5 % Normal 1.7-12.0 [facility] Comment on above: Performed By: #### C BC #### [facility] [address] [place] [address] Dr. Tom Dotson NEUT # 3.9 103/ul Normal 1.4-6.5 [facility] Comment on above: Performed By: #### C BC #### [facility] [address] [place] [address] Dr. Tom Dotson Neutrophils/100 WBC (Bld) 44.8 % Normal 43.0-75.0 [facility] Comment on above: Performed By: #### C BC #### [facility] [address] [address] [address] Tom Dotson Platelet mean volume (Bld) [Entitic vol] 10.2 fL Normal 9.5-13.5 [facility] Comment on above: Performed By: #### C BC #### [facility] [address] [place] [address] Dr. Tom Dotson PLT 328 103/ul Normal 150-450 [facility] Comment on above: Performed By: #### C BC #### [facility] [address] [address] [address] Tom Dotson RBC 4.88 106/ul Normal 4.70-6.10 [facility] Comment on above: Performed By: #### C BC #### [facility] [address] [place] [address] Dr. Tom Dotson WBC 8.7 103/ul Normal 4.0-11.0 [facility] Comment on above: Performed By: #### C BC #### [facility] [address] [place] [address] Dr. Tom Dotson DIFFERENTIAL MANUALon 2021 ATYPICAL LYMPH # 0.09 103/ul Normal [facility] Comment on above: Performed By: #### D IFF #### [facility] [address] [place] [address] Dr. Tom Dotson ATYPICAL LYMPH % 1 % Normal [facility] Comment on above: Performed By: #### D IFF #### [facility] [address] [place] [address] Dr. Tom Dotson BAND # 0.0 103/ul Normal 0.0-0.3 [facility] Comment on above: Performed By: #### D IFF #### [facility] [address] [place] [address] Dr. Tom Dotson BAND % 0 % Normal 0-5 [facility] Comment on above: Performed By: #### D IFF #### [facility] [address] [place] [address] Dr. Tom Dotson BASOM # 0.00 103/ul Normal 0.00-0.10 [facility] Comment on above: Performed By: #### D IFF #### [facility] [address] [place] [address] Dr. Tom Dotson BASOM % 0.0 % Critically low 0.2-2.0 [facility] Comment on above: Performed By: #### D IFF #### [facility] [address] [place] [address] Dr. Tom Dotson BLAST # Normal [facility] Comment on above: Performed By: #### D IFF #### [facility] [address] [place] [address] Dr. Tom Dotson BLAST % Normal [facility] Comment on above: Performed By: #### D IFF #### [facility] [address] [place] [address] Dr. Tom Dotson CORRECTED WBC Normal 4.0-11.0 [facility] Comment on above: Performed By: #### D IFF #### [facility] [address] [place] [address] Dr. Tom Dotson EOS # 1.22 103/ul Critically high 0.00-0.70 [facility] Comment on above: Performed By: #### D IFF #### [facility] [address] [place] [address] Dr. Tom Dotson EOS% 14.0 % Critically high 0.9-7.0 [facility] Comment on above: Performed By: #### D IFF #### [facility] [address] [place] [address] Dr. Tom Dotson LYMPHM # 1.91 103/ul Normal 1.20-3.80 [facility] Comment on above: Performed By: #### D IFF #### [facility] [address] [place] [address] Dr. Tom Dotson LYMPHM% 22.0 % Normal 20.5-60.0 [facility] Comment on above: Performed By: #### D IFF #### [facility] [address] [place] [address] Dr. Tom Dotson METAMYELOCYTE # Normal [facility] Comment on above: Performed By: #### D IFF #### [facility] [address] [place] [address] Dr. Tom Dotson METAMYELOCYTE % Normal [facility] Comment on above: Performed By: #### D IFF #### [facility] [address] [place] [address] Dr. Tom Dotson MONOM# 0.52 103/ul Normal 0.30-0.80 [facility] Comment on above: Performed By: #### D IFF #### [facility] [address] [place] [address] Dr. Tom Dotson MONOM% 6.0 % Normal 1.7-12.0 [facility] Comment on above: Performed By: #### D IFF #### [facility] [address] [place] [address] Dr. Tom Dotson MYELOCYTE # Normal [facility] Comment on above: Performed By: #### D IFF #### [facility] [address] [place] [address] Dr. Tom Dotson MYELOCYTE % Normal [facility] Comment on above: Performed By: #### D IFF #### [facility] [address] [place] [address] Dr. Tom Dotson NRBC Normal [facility] Comment on above: Performed By: #### D IFF #### [facility] [address] [place] [address] Dr. Tom Dotson SEG # 4.96 103/ul Normal 1.40-6.50 [facility] Comment on above: Performed By: #### D IFF #### [facility] [address] [place] [address] Dr. Tmo Dotson SEG % 57.0 % Normal 43.0-75.0 [facility] Comment on above: Performed By: #### D IFF #### [facility] [address] [place] [address] Dr. Tom Dotson WBC 8.7 103/ul Normal 4.0-11.0 [facility] Comment on above: Performed By: #### D IFF #### [facility] [address] [place] [address] Dr. Tom Dotson LIPID PROFILEon 03-06-2022 CHOL-HDL RATIO NORM SEE BELOW Normal [facility] Comment on above: Result Comment: 3.3 - 4.4 LOW RISK 4.4 - 7.1 AVERAGE RISK 7.1 - 11.0 MODERATE RISK >11.0 HIGH RISK Performed By: #### I NFLUAB #### [facility] [address] [place] [address] Dr. Tom Dotson Cholesterol [Mass/Vol] 135 mg/dL Normal <=200 [facility] Comment on above: Performed By: #### I NFLUAB #### [facility] [address] [address] [address] Tom Dotson Cholesterol in HDL [Mass/Vol] 51 mg/dL Normal 40-60 [facility] Comment on above: Performed By: #### I NFLUAB #### [facility] [address] [address] [address] Tom Dotson Cholesterol in LDL [Mass/Vol] 74.4 mg/dL Normal [facility] Comment on above: Performed By: #### I NFLUAB #### [facility] [address] [address] [address] Tom Dotson Cholesterol.total/Ch olesterol in HDL [Mass ratio] 2.6 {ratio} Normal [facility] Comment on above: Performed By: #### I NFLUAB #### [facility] [address] [address] [address] Tom Dotson HDL NORMAL > or = 60 mg/dl - LOW CARDIOVASCULAR RISK <40 mg/dl - HIGH CARDIOVASCULAR RISK Normal [facility] Comment on above: Performed By: #### I NFLUAB #### [facility] [address] [address] [address] Tom Dotson LDL CALC NORMAL SEE BELOW Normal [facility] Comment on above: Result Comment: <100 mg/dl OPTIMAL 100 - 129 mg/dl NEAR OR ABOVE OPTIMAL 130 - 159 mg/dl BORDERLINE HIGH 160 - 189 mg/dl HIGH >190 mg/dl VERY HIGH Performed By: #### I NFLUAB #### [facility] [address] [address] [address] Tom Dotson Triglyceride [Mass/Vol] 48 mg/dL Normal <=150 [facility] Comment on above: Performed By: #### I NFLUAB #### [facility] [address] [address] [address] Tom Dotson VLDL CALC 9.6 mg/dL Normal [facility] Comment on above: Performed By: #### I NFLUAB #### [facility] [address] [address] [address] Tom Dotson PROF 14(COMP METB)on 022 Albumin [Mass/Vol] 3.8 g/dL Normal 3.4-5.0 [facility] Comment on above: Performed By: #### I NFLUAB #### [facility] [address] [place] [address] Dr. Tom Dotson Albumin/Globulin [Mass ratio] 1.1 {ratio} Normal [facility] Comment on above: Performed By: #### I NFLUAB #### [facility] [address] [place] [address] Dr. Tom Dotson ALP [Catalytic activity/Vol] 62 U/L Normal 46-116 [facility] Comment on above: Performed By: #### I NFLUAB #### [facility] [address] [place] [address] Dr. Tom Dotson ALT [Catalytic activity/Vol] 25 U/L Normal 16-63 [facility] Comment on above: Performed By: #### I NFLUAB #### [facility] [address] [place] [address] Dr. Tom Dotson Anion gap [Moles/Vol] 9.8 mmol/L Normal [facility] Comment on above: Performed By: #### I NFLUAB #### [facility] [address] [place] [address] Dr. Tom Dotson AST [Catalytic activity/Vol] 15 U/L Normal 15-37 [facility] Comment on above: Performed By: #### I NFLUAB #### [facility] [address] [place] [address] Dr. Tom Dotson Bilirubin [Mass/Vol] 0.9 mg/dL Normal 0.2-1.0 [facility] Comment on above: Performed By: #### I NFLUAB #### [facility] [address] [place] [address] Dr. Tom Dotson Calcium [Mass/Vol] 8.8 mg/dL Normal 8.5-10.[address] [facility] Comment on above: Performed By: #### I NFLUAB #### [facility] [address] [address] [address] Tom Dotson Chloride [Moles/Vol] 102 mmol/L Normal 98-107 [facility] Comment on above: Performed By: #### I NFLUAB #### [facility] [address] [address] [address] Tom Dotson CO2 [Moles/Vol] 30.5 mmol/L Normal 21.0-32.0 [facility] Comment on above: Performed By: #### I NFLUAB #### [facility] [address] [address] [address] Tom Dotson Creatinine [Mass/Vol] 0.95 mg/dL Normal 0.70-1.30 [facility] Comment on above: Performed By: #### I NFLUAB #### [facility] [address] [place] [address] Dr. Tom Dotson EGFR-AF QATARI >60 Normal >=60 [facility] Comment on above: Performed By: #### I NFLUAB #### [facility] [address] [place] [address] Dr. Tom Dotson EGFR-NON AF QATARI >60 Normal >=60 [facility] Comment on above: Performed By: #### I NFLUAB #### [facility] [address] [place] [address] Dr. Tom Dotson Globulin (S) [Mass/Vol] 3.4 g/dL Normal [facility] Comment on above: Performed By: #### I NFLUAB #### [facility] [address] [place] [address] Dr. Tom Dotson Glucose [Mass/Vol] 85 mg/dL Normal 74-[address] [facility] Comment on above: Performed By: #### I NFLUAB #### [facility] [address] [address] [address] Tom Dotson Potassium [Moles/Vol] 4.3 mmol/L Normal 3.5-5.1 [facility] Comment on above: Performed By: #### I NFLUAB #### [facility] [address] [address] [address] Tom Dotson Protein [Mass/Vol] 7.2 g/dL Normal 6.4-8.2 [facility] Comment on above: Performed By: #### I NFLUAB #### [facility] [address] [address] [address] Tom Dotson Sodium [Moles/Vol] 138 mmol/L Normal 136-145 [facility] Comment on above: Performed By: #### I NFLUAB #### [facility] [address] [address] [address] Tom Dotson Urea nitrogen [Mass/Vol] 14.0 mg/dL Normal 7.0-18.0 [facility] Comment on above: Performed By: #### I NFLUAB #### [facility] [address] [address] [address] Tom Dotson Urea nitrogen/Creatinine [Mass ratio] 14.7 mg/mg Normal [facility] Comment on above: Performed By: #### I NFLUAB #### [facility] [address] [address] [address] Tom Dotson TSHon 03-06-2022 TSH 1.010 uIU/mL Normal 0.358-3.740 [facility] Comment on above: Performed By: #### I NFLUAB #### [facility] [address] [address] [address] Tom Dotson Hepatic Panelon 09-02-2019 Albumin [Mass/Vol] 3.2 g/dL Normal 3.2-5.[address] [facility] Comment on above: Performed By: #### H EPATIC, LIPID, TSH3 wRFLX, [id number] #### [facility] [address] [place] [address] [place] Albumin/Globulin [Mass ratio] 1.1 {ratio} Normal [facility] Comment on above: Performed By: #### H EPATIC, LIPID, TSH3 wRFLX, [id number] #### [facility] [address] [id number] [place] ALP [Catalytic activity/Vol] 38 U/L Normal 32-92 [facility] Comment on above: Performed By: #### H EPATIC, LIPID, TSH3 wRFLX, [id number] #### [facility] [address] [place] [address] ALT [Catalytic activity/Vol] 14 U/L Normal 10-60 [facility] Comment on above: Performed By: #### H EPATIC, LIPID, TSH3 wRFLX, [id number] #### [address] AST [Catalytic activity/Vol] 13 U/L Normal 10-42 [facility] Comment on above: Performed By: #### H EPATIC, LIPID, TSH3 wRFLX, [id number] #### [address] Bilirubin [Mass/Vol] 0.9 mg/dL Normal 0.3-1.2 [facility] Comment on above: Performed By: #### H EPATIC, LIPID, TSH3 wRFLX, [id number] #### [address] Bilirubin,Indirect 0.8 mg/dL Normal [facility] Comment on above: Performed By: #### H EPATIC, LIPID, TSH3 wRFLX, [id number] #### [address] Bilirubin.direct [Mass/Vol] 0.1 mg/dL Normal 0.0-0.4 [facility] Comment on above: Performed By: #### H EPATIC, LIPID, TSH3 wRFLX, [id number] #### [facility] [address] [place] [address] Globulin (S) [Mass/Vol] 2.9 g/dL Normal [facility] Comment on above: Performed By: #### H EPATIC, LIPID, TSH3 wRFLX, [id number] #### [address] Protein [Mass/Vol] 6.1 g/dL Normal 6.1-7.[address] [facility] Comment on above: Performed By: #### H EPATIC, LIPID, TSH3 wRFLX, [id number] #### [facility] [address] [id number] [facility] Lipid Panelon 09-02-2019 Cholesterol [Mass/Vol] 158 mg/dL Normal 140-200 [facility] Comment on above: Result Comment: Chol less than 200 mg/dl low risk Chol 201-239 mg/dl borderline risk Chol 240 mg/dl and greater high risk Performed By: #### H EPATIC, LIPID, TSH3 wRFLX, [id number] #### [facility] [address] [place] [address] [facility] Cholesterol in HDL [Mass/Vol] 61 mg/dL Normal 29-71 [facility] Comment on above: Result Comment: HDL CHOL ATP-III CLASSIFICATION Cardiovascular Risk HDL > or equal to 60 mg/dL LOW HDL < 40 mg/dL HIGH Performed By: #### H EPATIC, LIPID, TSH3 wRFLX, [id number] #### [facility] [address] Cholesterol.total/Ch olesterol in HDL [Mass ratio] 2.6 {ratio} Normal <5.0 [facility] Comment on above: Performed By: #### H EPATIC, LIPID, TSH3 wRFLX, [id number] #### [facility] [address] [id number] [facility] LDL Cholesterol,Calculat ed 84 mg/dL Normal 0-100 [facility] Comment on above: Result Comment: LDL ATP III CLASSIFICATION LDL less than 100 mg/dL Optimal LDL 100-129 mg/dL Near or above optimal LDL 130-159 mg/dL Borderline high LDL 160-189 mg/dL High LDL greater than 189 mg/dL Very high Performed By: #### H EPATIC, LIPID, TSH3 wRFLX, [id number] #### [facility] [address] [id number] [place] Triglyceride w/Reflex 63 mg/dL Normal 35-149 [facility] Comment on above: Result Comment: TRIG ATP III CLASSIFICATION TRIG less than 150 mg/dL Normal TRIG 150-199 mg/dL Borderline high TRIG 200-500 mg/dL High TRIG greater than 500 mg/dL Very high Standard traceable to the Center for Disease Conrtrol and Prevention (CDC) test method. Performed By: #### H EPATIC, LIPID, TSH3 wRFLX, [id number] #### [address] VLDL CHOLESTEROL 12 mg/dL Normal [facility] Comment on above: Performed By: #### H EPATIC, LIPID, TSH3 wRFLX, [id number] #### [address] Thyroid Stim Hormone w/Rflxo n 09-02-2019 Thyroid Stim Hormone w/Rflx 1.92 u[iU]/mL Normal 0.45-5.33 [facility] Comment on above: Performed By: #### H EPATIC, LIPID, TSH3 wRFLX, [id number] #### [address] Vitamin D 25 Hydroxy Totalon 09-02-2019 Vitamin D 25 Hydroxy Total 11.9 ng/mL Low 30-100 [facility] Comment on above: Result Comment: DAE MIN D STATUS 25(OH)VITAMIN D RANGE (ng/mL) Deficient <20 Insufficient 20 to <30 Sufficient 30 to 100 Reference: Darrion MF,Zane NC, Hanna AVELAR, et al. Evaluation,treatment, and prevention of vitamin D deficiency; an Endocrine Society clinical practice guideline. JCEM. 2010; 96(7):1911-30. PERFORMED BY: [place] [address] PATHOLOGIST BOREMATIC OPERATOR MIGUELINA FLOOD M.D. Performed By: #### H EPATIC, LIPID, TSH3 wRFLX, [id number] #### [address] Vital Signs Date Time Vital Sign Value Performing Clinician Faci lity 02-15-2025 13:54-0400 Body mass index (BMI) [Ratio] 27.42 kg/m2 Azul Quezada NP Work Phone: [facility] 02-15-2025 13:54-0400 Body temperature 99 [degF] Azul Aichholz LITERACY CONSULTANT Work Phone: [facility] 02-15-2025 13:54-0400 Body weight 94.26 kg Azul Aichholz LITERACY CONSULTANT Work Phone: [facility] 02-15-2025 13:54-0400 Diastolic blood pressure 62 mm[Hg] Azul Aichholz LITERACY CONSULTANT Work Phone: [facility] 02-15-2025 13:54-0400 Heart rate 88 /min Azul Aichholz LITERACY CONSULTANT Work Phone: [facility] 02-15-2025 13:54-0400 Respiratory rate 24 /min Azul Aichholz LITERACY CONSULTANT Work Phone: [facility] 02-15-2025 13:54-0400 SaO2% (BldA) [Mass fraction] 92 % Azul Aichholz LITERACY CONSULTANT Work Phone: [facility] 02-15-2025 13:54-0400 Systolic blood pressure 100 mm[Hg] Azul Aichholz LITERACY CONSULTANT Work Phone: [facility] 11-16-2024 14:25-0500 Body mass index (BMI) [Ratio] 25.57 kg/m2 Azul Aichholz LITERACY CONSULTANT Work Phone: [facility] 11-16-2024 14:25-0500 Body temperature 99.39 [degF] Azul Aichholz LITERACY CONSULTANT Work Phone: [facility] 11-16-2024 14:25-0500 Body weight 87.91 kg Azul Aichholz LITERACY CONSULTANT Work Phone: [facility] 11-16-2024 14:25-0500 Diastolic blood pressure 68 mm[Hg] Azul Aichholz LITERACY CONSULTANT Work Phone: [facility] 11-16-2024 14:25-0500 Heart rate 90 /min Azul Aichholz LITERACY CONSULTANT Work Phone: [facility] 11-16-2024 14:25-0500 Respiratory rate 26 /min Azul Aichholz LITERACY CONSULTANT Work Phone: [facility] 11-16-2024 14:25-0500 SaO2% (BldA) [Mass fraction] 92 % Azul Aichholz LITERACY CONSULTANT Work Phone: [facility] 11-16-2024 14:25-0500 Systolic blood pressure 100 mm[Hg] Azul Aichholz LITERACY CONSULTANT Work Phone: [facility] 08-16-2024 13:20-0500 Body height 185.4 cm Azul Aichholz LITERACY CONSULTANT Work Phone: [facility] 08-16-2024 13:20-0500 Body mass index (BMI) [Ratio] 25.17 kg/m2 Azul Aichholz LITERACY CONSULTANT Work Phone: [facility] 08-16-2024 13:20-0500 Body temperature 98.29 [degF] Azul Aichholz LITERACY CONSULTANT Work Phone: [facility] 08-16-2024 13:20-0500 Body weight 86.55 kg Azul Aichholz LITERACY CONSULTANT Work Phone: [facility] 08-16-2024 13:20-0500 Diastolic blood pressure 78 mm[Hg] Azul Aichholz LITERACY CONSULTANT Work Phone: [facility] 08-16-2024 13:20-0500 Heart rate 77 /min Azul Aichholz LITERACY CONSULTANT Work Phone: [facility] 08-16-2024 13:20-0500 Respiratory rate 24 /min Azul Aichholz LITERACY CONSULTANT Work Phone: [facility] 08-16-2024 13:20-0500 SaO2% (BldA) [Mass fraction] 97 % Azul Aichholz LITERACY CONSULTANT Work Phone: [facility] 08-16-2024 13:20-0500 Systolic blood pressure 116 mm[Hg] Azul Aichholz LITERACY CONSULTANT Work Phone: [facility] 05-31-2024 13:20-0400 Body height 185.4 cm Ibeth Argueta DO Work Phone: [facility] 05-31-2024 13:20-0400 Body mass index (BMI) [Ratio] 23.67 kg/m2 Ibeth Argueta DO Work Phone: [facility] 05-31-2024 13:20-0400 Body weight 81.38 kg Ibeth Argueta DO Work Phone: [facility] 05-31-2024 13:20-0400 Diastolic blood pressure 66 mm[Hg] Ibeth Argueta DO Work Phone: [facility] 05-31-2024 13:20-0400 Heart rate 70 /min Ibeth Argueta DO Work Phone: [facility] 05-31-2024 13:20-0400 Respiratory rate 12 /min Ibeth Argueta DO Work Phone: [facility] 05-31-2024 13:20-0400 SaO2% (BldA) [Mass fraction] 98 % Ibeth Argueta DO Work Phone: [facility] 05-31-2024 13:20-0400 Systolic blood pressure 110 mm[Hg] Ibeth Argueta DO Work Phone: [facility] 05-19-2024 14:17-0400 Body height 185.4 cm Azul Quezada LITERACY CONSULTANT Work Phone: [facility] 05-19-2024 14:17-0400 Body mass index (BMI) [Ratio] 23.62 kg/m2 Azul Quezada LITERACY CONSULTANT Work Phone: [facility] 05-19-2024 14:17-0400 Body temperature 98.01 [degF] Azul Quezada LITERACY CONSULTANT Work Phone: [facility] 05-19-2024 14:17-0400 Body weight 81.19 kg Azul Quezada LITERACY CONSULTANT Work Phone: [facility] 05-19-2024 14:17-0400 Diastolic blood pressure 64 mm[Hg] Azul Aichholz LITERACY CONSULTANT Work Phone: [facility] 05-19-2024 14:17-0400 Heart rate 79 /min Azul Aichholz LITERACY CONSULTANT Work Phone: [facility] 05-19-2024 14:17-0400 Respiratory rate 22 /min Azul Aichholz LITERACY CONSULTANT Work Phone: [facility] 05-19-2024 14:17-0400 SaO2% (BldA) [Mass fraction] 94 % Azul Aichholz LITERACY CONSULTANT Work Phone: [facility] 05-19-2024 14:17-0400 Systolic blood pressure 90 mm[Hg] Azul Aichholz LITERACY CONSULTANT Work Phone: [facility] 10-30-2023 10:00-0500 Body height 185.4 cm Azul Aichholz LITERACY CONSULTANT Work Phone: [facility] 10-30-2023 10:00-0500 Body mass index (BMI) [Ratio] 26.84 kg/m2 Azul Aichholz LITERACY CONSULTANT Work Phone: [facility] 10-30-2023 10:00-0500 Body temperature 97.11 [degF] Azul Aichholz LITERACY CONSULTANT Work Phone: [facility] 10-30-2023 10:00-0500 Body weight 92.26 kg Azul Aichholz LITERACY CONSULTANT Work Phone: [facility] 10-30-2023 10:00-0500 Diastolic blood pressure 78 mm[Hg] Azul Aichholz LITERACY CONSULTANT Work Phone: [facility] 10-30-2023 10:00-0500 Heart rate 83 /min Azul Aichholz LITERACY CONSULTANT Work Phone: [facility] 10-30-2023 10:00-0500 Respiratory rate 16 /min Azul Aichholz LITERACY CONSULTANT Work Phone: [facility] 10-30-2023 10:00-0500 SaO2% (BldA) [Mass fraction] 94 % Azul Quezada LITERACY CONSULTANT Work Phone: [facility] 10-30-2023 10:00-0500 Systolic blood pressure 138 mm[Hg] Azul Dmaien LITERACY CONSULTANT Work Phone: [facility] Encounters Encounter Date Encounter Type Care Provider Facility Start: 02-15-2025 End: 02-15-2025 Bamboo flowsheet Azul Damien LITERACY CONSULTANT Work Phone: [facility] Start: 02-15-2025 End: 02-15-2025 Bamboo flowsheet Azul Damien LITERACY CONSULTANT Work Phone: [facility] Start: 02-15-2025 End: 02-15-2025 Office outpatient visit 25 minutes Azul Quezada LITERACY CONSULTANT Work Phone: [facility] Comment on above: Depression with anxi ety (Primary Dx); Cerebrovascular accident (CVA), unspecified mechanism (CMS/HCC); Overweight (BMI 25.0-29.9); Centrilobular emphysema (CMS/HCC); Insomnia, unspecified Start: 02-15-2025 End: 02-15-2025 ambulatory AZUL DAMIEN Not Available Start: 12-27-2024 End: 12-27-2024 Refill Azul Damien LITERACY CONSULTANT Work Phone: [facility] Comment on above: Mixed hyperlipidemia (CMS/HCC) Start: 11-16-2024 End: 11-16-2024 Bamboo flowsheet Azul Leidyhnormaz LITERACY CONSULTANT Work Phone: [facility] Start: 11-16-2024 End: 11-16-2024 Bamboo flowsheet Azul Aichholz LITERACY CONSULTANT Work Phone: [facility] Start: 11-16-2024 End: 11-16-2024 Clinisync Result Encounter Azul Damien LITERACY CONSULTANT Work Phone: [facility] Unsolicited Start: 11-16-2024 End: 11-16-2024 Patient encounter procedure Azul Quezada LITERACY CONSULTANT Work Phone: [facility] Comment on [...] End: 09-07-2024 Clinisync Result Encounter Azul Quezada LITERACY CONSULTANT Work Phone: [facility] Unsolicited Start: 08-16-2024 End: 08-16-2024 Bamboo flowsheet Azul Quezada LITERACY CONSULTANT Work Phone: [facility] Start: 08-16-2024 End: 08-16-2024 Bamboo flowsheet Azul Quezada LITERACY CONSULTANT Work Phone: [facility] Start: 08-16-2024 End: 08-16-2024 Office outpatient visit 25 minutes Azul Quezada LITERACY CONSULTANT Work Phone: [facility] Comment on [...] Start: 06-02-2024 End: 06-02-2024 Refill Azul Quezada LITERACY CONSULTANT Work Phone: [facility] Comment on above: Depression with anxi ety; Insomnia, unspecified; Mixed hyperlipidemia (CMS/HCC) Start: 06-01-2024 End: 06-01-2024 Orders Only Azul Quezada LITERACY CONSULTANT Work Phone: [facility] Comment on above: Rising PSA level (Pr imary Dx) Start: 05-31-2024 End: 05-31-2024 Clinisync Result Encounter Azul Quezada LITERACY CONSULTANT Work Phone: [facility] Unsolicited Start: 05-31-2024 End: 05-31-2024 Clinisync Result Encounter Azul Damien LITERACY CONSULTANT Work Phone: [facility] Unsolicited Start: 05-31-2024 End: 05-31-2024 Patient encounter procedure Ibeth Argueta DO Work Phone: [facility] Comment on above: Screening for malign ant neoplasm of colon (Primary Dx) Start: 05-31-2024 End: 05-31-2024 ambulatory IBETH ARGUETA Not Available Start: 05-19-2024 End: 05-19-2024 Bamboo flowsheet Azul Quezada LITERACY CONSULTANT Work Phone: [facility] Start: 05-19-2024 End: 05-19-2024 Bamboo flowsheet Azul Quezada LITERACY CONSULTANT Work Phone: [facility] Start: 05-19-2024 End: 05-19-2024 Office outpatient visit 25 minutes Azul Quezada LITERACY CONSULTANT Work Phone: [facility] Comment on above: Depression with anxi ety (Primary Dx); Screening for prostate cancer; Smoker; Mixed hyperlipidemia (CMS/HCC); Sessile colonic polyp; Centrilobular emphysema (CMS/HCC); Bilateral carotid artery stenosis; Right hand pain Start: 05-19-2024 End: 05-19-2024 ambulatory 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 Not Available Start: 01-14-2024 End: 03-11-2024 Telephone encounter Grace Moore RN [facility] Start: 11-13-2023 Patient encounter procedure Azul Quezada LITERACY CONSULTANT Work Phone: [facility] Start: 10-30-2023 End: 10-30-2023 Office outpatient visit 15 minutes Azul Quezada LITERACY CONSULTANT Work Phone: [facility] Comment on above: Influenza (Primary D x); Marijuana abuse; Smoker; BMI 26.0-26.9,adult; Centrilobular emphysema (CMS/HCC) Start: 10-21-2023 Clinisync Result Encounter Gen lisa External Data Provider [facility] Unsolicited Start: 10-21-2023 Clinisync Result Encounter Gen lisa External Data Provider [facility] Unsolicited Start: 09-25-2022 End: 09-25-2022 ambulatory YARD JACKER 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 Facility:[facility] Start: 04-16-2022 End: 04-17-2022 ambulatory [facility] Facility: Start: 04-10-2022 End: 04-11-2022 ambulatory [facility] Facility: Start: 03-06-2022 End: 03-07-2022 ambulatory YARD JACKER 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 Facility:[facility] Procedures Date Procedure Procedure Detail Performing Clinician Start: 11-16-2024 XR CHEST 2V Azul celeste LITERACY CONSULTANT Work Phone: Start: 10-22-2024 ALL HEMOGLOBIN Generic External Data Provider Start: 09-06-2024 PSA TOTAL+% FREE Azul tillman LITERACY CONSULTANT Work Phone: Start: 07-06-2024 ALL CBC WITH AUTO DIFF Generic External Data Provider Start: 06-15-2024 Colonoscopy Generic Pr ovider Start: 05-31-2024 TBH UA (CLEAN/CATCH) MICROSCOPIC IF INDICATE Azul Quezada LITERACY CONSULTANT Work Phone: Start: 10-21-2023 BLOOD CULTURE 2 Generic External Data Provider Start: 10-21-2023 BLOOD CULTURE 1 Generic External Data Provider Start: 03-06-2022 PSA screening [facility] Comment on above: Performed By: #### P SAS #### [facility] [address] [address] [address] Tom Dotson Start: 02-07-2022 Adult depression scr eening assessment Grace Moore RN Plan of Treatment Date Care Activity Detail Author Start: 06-15-2029 Screening for malign ant neoplasm of colon [facility] Start: 11-21-2025 End: 11-21-2025 Patient encounter procedure 11/21/2025 4:30 PM EST Office Visit [facility] [address] [place] [id number] Azul Quezada, ORACIO [address] [place] [phone] [facility] Start: 11-16-2025 Medicare Annual Well ness (AWV) Medicare Annual Wellness (AWV) [facility] Start: 02-15-2025 End: 02-15-2025 Patient encounter procedure [facility] Comment on above: Cerebrovascular acci dent (CVA), unspecified mechanism (CMS/HCC) (Primary Dx); Overweight (BMI 25.0-29.9); Depression with anxiety; Centrilobular emphysema (CMS/HCC) Start: 11-16-2024 End: 11-16-2024 Patient encounter procedure [facility] Comment on above: Cerebrovascular acci dent (CVA), unspecified mechanism (CMS/HCC) (Primary Dx); Centrilobular emphysema (CMS/HCC); Bilateral carotid artery stenosis; Overweight (BMI 25.0-29.9); Depression with anxiety; Encounter for subsequent annual wellness visit (AWV) in Medicare patient Start: 11-16-2024 End: 11-16-2025 XR Chest 2 Views XR chest 2 views Imaging Routine COPD with acute exacerbation (CMS/HCC) Expected: 11/16/2024 (Approximate), Expires: 11/16/2025 [facility] Work Phone: Comment on above: Expected: 11/16/2024 (Approximate), Expires: 11/16/2025 Start: 11-13-2024 Medicare Annual Well ness (AWV) Medicare Annual Wellness (AWV) [facility] Start: 08-16-2024 End: 08-16-2024 Patient encounter procedure [facility] Comment on above: Primary insomnia (Pr imary Dx); Cerebrovascular accident (CVA), unspecified mechanism (CMS/HCC); Centrilobular emphysema (CMS/HCC); Bilateral carotid artery stenosis; Sessile colonic polyp; Smoker; Depression with anxiety Start: 08-04-2024 Screening for malign ant neoplasm of colon [facility] Start: 06-01-2024 End: 06-01-2025 PSA, total and free PSA, total and free Lab Routine Rising PSA level Expected: 06/01/2024 (Approximate), Expires: 06/01/2025 [facility] Work Phone: Comment on above: Expected: 06/01/2024 (Approximate), Expires: 06/01/2025 Start: [address] [facility] Start: 05-19-2024 End: 05-19-2025 CBC W Auto Differential panel - Blood CBC and differential Lab Routine Smoker Expected: 05/19/2024 (Approximate), Expires: 05/19/2025 [facility] Work Phone: Comment on above: Expected: 05/19/2024 (Approximate), Expires: 05/19/2025 Start: 05-19-2024 End: 05-19-2025 Comprehensive metabolic 2000 panel - Serum or Plasma Comprehensive metabolic panel Lab Routine Depression with anxiety Mixed hyperlipidemia (CMS/HCC) Expected: 05/19/2024 (Approximate), Expires: 05/19/2025 [facility] Comment on above: Expected: 05/19/2024 (Approximate), Expires: 05/19/2025 Start: 05-19-2024 End: 05-19-2025 Lipid 1996 panel - Serum or Plasma Lipid panel Lab Routine Mixed hyperlipidemia (CMS/HCC) Expected: 05/19/2024 (Approximate), Expires: 05/19/2025 [facility] Comment on above: Expected: 05/19/2024 (Approximate), Expires: 05/19/2025 Start: 05-19-2024 End: 05-19-2024 Patient encounter procedure 05/19/2024 2:00 PM EDT Office Visit [facility] [address] [place] [phone] Azul Quezada NP [address] [place] [address] Screening for prostate cancer (Primary Dx); Smoker; Depression with anxiety; Mixed hyperlipidemia (CMS/HCC) [facility] Comment on above: Screening for prosta te cancer (Primary Dx); Smoker; Depression with anxiety; Mixed hyperlipidemia (CMS/HCC) Start: 05-19-2024 End: 05-19-2025 Prostate specific Ag [Mass/volume] in Serum or Plasma PSA Lab Routine Screening for prostate cancer Expected: 05/19/2024 (Approximate), Expires: 05/19/2025 [facility] Comment on above: Expected: 05/19/2024 (Approximate), Expires: 05/19/2025 Start: 05-19-2024 End: 05-19-2025 Urinalysis complete panel - Urine Urinalysis with reflex microscopic (clean catch) Lab Routine Smoker Expected: 05/19/2024 (Approximate), Expires: 05/19/2025 [facility] Comment on above: Expected: 05/19/2024 (Approximate), Expires: 05/19/2025 Start: 03-21-2024 Influenza vaccination Influenza Vacc ine (#1) [facility] Comment on above: Postponed from 05/23 (Patient Refused) Start: 01-14-2024 End: 01-13-2025 US Carotid arteries - bilateral Vas carotid duplex bilateral Vascular Ultrasound Routine Internal carotid artery stenosis, right Expected: 01/14/2024, Expires: 01/13/2025 [facility] Work Phone: Comment on above: Expected: 01/14/2024 , Expires: 01/13/2025 Start: 11-13-2023 End: 11-13-2023 Patient encounter procedure 11/13/2023 9:40 AM EST Office Visit [facility] [address] [place] [phone] Azul Quezada, LITERACY CONSULTANT [address] [place] [phone] [facility] Start: 10-30-2023 End: 10-30-2023 Patient encounter procedure 10/30/2023 10:00 AM EST Office Visit [facility] [address] [place] [phone] Azul Quezada, LITERACY CONSULTANT [address] [place] [phone] [facility] Start: 2023 Influenza vaccination Influenza Vacc ine (#1) [facility] Start: 03-08-2023 Adult BMI Screening Adult BMI Screen ing [facility] Start: 03-08-2023 Tobacco Screening Tobacco Screening [facility] Start: 02-07-2023 Depression Screening Depression Scre ening [facility] Start: 2010 Administration of varicella zoster vaccine Zoster (Shingles) Vaccine (1 of 2) [facility] Start: 1979 DTaP,Tdap and Td Vac cines (1 - Tdap) DTaP,Tdap and Td Vaccines (1 - Tdap) [facility] Start: 1960 Medicare Annual Well ness (AWV) Medicare Annual Wellness (AWV) [facility] Start: 1960 Screening for malign ant neoplasm of colon [facility] BLOOD CULTURE 1 BLOOD CULTURE 1 Lab Routine 10/21/2023 12:27 PM EST [facility] BLOOD CULTURE 2 BLOOD CULTURE 2 Lab Routine 10/21/2023 12:30 PM EST [facility] Immunizations Immunization Date Immunization Notes Care Provider Yrn hernandez 08-30-2024 ABRYSVO - Respirator y syncytial virus (RSV), vaccine, bivalent, protein subunit RSV prefusion F, diluent reconstituted, 0.5 mL, PF Azul Aichholz LITERACY CONSULTANT Work Phone: [facility] 08-16-2024 Influenza, injectabl e, Madin Marjan Canine Kidney, preservative free, quadrivalent Azul Aichholz LITERACY CONSULTANT Work Phone: [facility] 2020 influenza, live, intranasal, quadrivalent Azul Aichholz LITERACY CONSULTANT Work Phone: [facility] 2020 influenza virus vaccine, unspecified formulation Generic Provider [facility] 08-04-2019 influenza, high dose seasonal, preservative-free Azul Aichholz LITERACY CONSULTANT Work Phone: [facility] 07-05-2015 influenza, injectabl e, quadrivalent, preservative free Azul Aichholz LITERACY CONSULTANT Work Phone: [facility] 07-05-2015 influenza virus vaccine, unspecified formulation Grace Moore RN [facility] Payers Date Payer Category Payer Medicaid MEDICAID [facility] EDICAID [id number] 2019-Present [phone] [address] [place] [address] [id number] 1993 Medicare [id number] 1993 Medicare [id number] 1960 Unknown [id number] 1960 Unknown [id number] 1960 Unknown [id number] 1960 Unknown [id number] 1960 Unknown [id number] 1960 Unknown [id number] 1960 Unknown [id number] 1960 Unknown [id number] 1960 Unknown [id number] 1959 Medicaid [id number] 1959 Unknown [id number] Social History Date Type Detail Facility Tobacco smoking stat [facility] Tobacco smoking consumption unknown [facility] Start: 1960 Sex Assigned At Not on file [facility] Start: 10-30-2023 End: 11-13-2023 Gender identity Not on file [facility] Start: 10-30-2023 Tobacco smoking status [facility] Ex-smoker [facility] Start: 03-22-1984 End: 03-22-2019 History [...] to any clubs or organizations such as holiness groups, unions, fraternal or athletic groups, or [...] Tobacco smoking status NHIS Smokes tobacco daily [facility] Start: 03-08-2022 Alcoholic beverage intake Ex-drinker (finding) [facility] Are you now , , , , never or living with a partner? Living with partner [facility] How often to you hav e a drink containing alcohol? 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 SUBJECTIVE: MEDICATIONS: [...] (CMS/HCC) COVID-19 07/2019 CVA (cerebral vascular accident) ([facility]) Degenerative cervical disc Depression with anxiety Insomnia Marijuana abuse 10/30/2023 Multiple pulmonary nodules Neck mass 2014 Osteoarthritis Papule of skin 11/13/2023 Pigmented skin lesion of uncertain nature Rheumatic fever Stroke ([facility]) 07/2020 Testicle lump Tourette's ([facility]) Vertebral artery occlusion Vocal cord polyp Past Surgical History: Procedure Laterality Date ADENOIDECTOMY CAROTID STENT Right 09/2019 stent, RT carotid CT GUIDED TRANSVAGINAL TRANSRECTAL FLUID DRAIN 06/09/2020 CT GUIDED TRANSVAGINAL TRANSRECTAL FLUID DRAIN 06/09/2020 OTHER SURGICAL HISTORY Removal of Polyp Vocal area and Vocal Cord cyst ME EXCISION THYROGLOSSAL DUCT CYST/SINUS Procedure:DL, e/o thyroglossal [...] directed by neurology documented in this encounter [facility] 02-15-2025 Instructions Azul Quezada NP - 02/15/2025 1:40 PM EDT Return the patient assistance medication forms and we can try to help you get the medications (inhaler) documented in this encounter [facility] 11-16-2024 History of Presen t illness Narrative Associated Problem(s): COPD with acute exacerbation ([facility]/HCC) Add atb, steroids, check cxr Pt needs [...] (CMS/HCC) COVID-19 07/2019 CVA (cerebral vascular accident) ([facility]) Degenerative cervical disc Depression with anxiety Insomnia Marijuana abuse 10/30/2023 Multiple pulmonary nodules Neck mass 2014 Osteoarthritis Papule of skin 11/13/2023 Pigmented skin lesion of uncertain nature Rheumatic fever Stroke (CMS/HCC) 07/2020 Testicle lump Tourette's ([facility]) Vertebral artery occlusion Vocal cord polyp Past Surgical History: Procedure Laterality Date ADENOIDECTOMY CAROTID STENT Right 09/2019 stent, RT carotid CT GUIDED TRANSVAGINAL TRANSRECTAL FLUID DRAIN 06/09/2020 CT GUIDED TRANSVAGINAL TRANSRECTAL FLUID DRAIN 06/09/2020 OTHER SURGICAL HISTORY Removal of Polyp Vocal area and Vocal Cord cyst ME EXCISION THYROGLOSSAL DUCT CYST/SINUS Procedure:DL, e/o thyroglossal [...] directed by neurology documented in this encounter [facility] 11-16-2024 Instructions Azul Quezada NP - 11/16/2024 2:00 PM EST Get back into see dr tim No dose changes in your meds Chest xray documented in this encounter [facility] 08-16-2024 History of Presen t illness Narrative [...] artery stenosis Calcified lymph nodes Centrilobular emphysema ([facility]) COVID-19 07/2019 CVA (cerebral vascular accident) ([facility]) Degenerative cervical disc Depression with anxiety Insomnia Marijuana abuse 10/30/2023 Multiple pulmonary nodules Neck mass 2013 Osteoarthritis Papule of skin 11/13/2023 Pigmented skin lesion of uncertain nature Rheumatic fever Stroke ([facility]) 07/2020 Testicle lump Tourette's ([facility]) Vertebral artery occlusion Vocal cord polyp Past Surgical History: Procedure Laterality Date ADENOIDECTOMY CAROTID STENT Right 09/2019 stent, RT carotid CT GUIDED TRANSVAGINAL TRANSRECTAL FLUID DRAIN 06/09/2020 CT GUIDED TRANSVAGINAL TRANSRECTAL FLUID DRAIN 06/09/2020 OTHER SURGICAL HISTORY Removal of Polyp Vocal area and Vocal Cord cyst ME EXCISION THYROGLOSSAL DUCT CYST/SINUS Procedure:DL, e/o thyroglossal [...] of the risks of continued smoking: stroke, [place], all forms of cancer, lung disease, and [...] Relevant Orders Flu vaccine, MDCK, quadrivalent, PF ([id number]) (Flucelvax single dose syringe) (Completed) Former smoker [...] of the risks of continued smoking: stroke, [place], all forms of cancer, lung disease, and [...] Continue with trazodone documented in this encounter [facility] 08-16-2024 Instructions Azul Quezada NP - 08/16/2024 1:20 PM EST Great job at quitting smoking Keep follow up with dr tim as directed Follow up with Vascular doctor in [place] as well as directed documented in this encounter [facility] 05-31-2024 History of Presen t illness Narrative [...] artery stenosis Calcified lymph nodes Centrilobular emphysema ([facility]) COVID-19 07/2019 CVA (cerebral vascular accident) ([facility]) Degenerative cervical disc Depression with anxiety Insomnia Marijuana abuse 10/30/2023 Multiple pulmonary nodules Neck mass 2014 Osteoarthritis Papule of skin 11/13/2023 Pigmented skin lesion of uncertain nature Rheumatic fever Stroke ([facility]) 07/2020 Testicle lump Tourette's ([facility]) Vertebral artery occlusion Vocal [...] Polyp Vocal area and Vocal Cord cyst ME EXCISION THYROGLOSSAL DUCT CYST/SINUS Procedure:DL, e/o thyroglossal [...] Polyp Vocal area and Vocal Cord cyst ME EXCISION THYROGLOSSAL DUCT CYST/SINUS Procedure:DL, e/o thyroglossal [...] Partha Argueta DO documented in this encounter [facility] 05-19-2024 History of Presen t illness Narrative [...] (CMS/HCC) COVID-19 07/2019 CVA (cerebral vascular accident) ([facility]) Degenerative cervical disc Depression with anxiety Insomnia Marijuana abuse 10/30/2023 Multiple pulmonary nodules Neck mass 2014 Osteoarthritis Papule of skin 11/13/2023 Pigmented skin lesion of uncertain nature Rheumatic fever Stroke ([facility]) 07/2020 Testicle lump Tourette's ([facility]) Vertebral artery occlusion Vocal cord polyp Past Surgical History: Procedure Laterality Date ADENOIDECTOMY CAROTID STENT Right 09/2019 stent, RT carotid CT GUIDED TRANSVAGINAL TRANSRECTAL FLUID DRAIN 06/09/2020 CT GUIDED TRANSVAGINAL TRANSRECTAL FLUID DRAIN 06/09/2020 OTHER SURGICAL HISTORY Removal of Polyp Vocal area and Vocal Cord cyst ME EXCISION THYROGLOSSAL DUCT CYST/SINUS Procedure:DL, e/o thyroglossal [...] at this time documented in this encounter [facility] 01-14-2024 Miscellaneous Notes Per January 2024 recall, patient is due for routine CUS imaging per Dr. Terrell. Please call to remind patient and provide central scheduling number if needed. Will call with results once completed. Called patient, call went to but inbox was full and jingle writer was unable to leave message reminder [...] if he could have it done in [place] at the [facility] facility there because he doesn't have a car and stated it would be impossible for him to make it to [place]. Communicable Disease Specialist confirmed patient had central scheduling phone number to get the scans scheduled. Called patient and got VM but it was full so jingle writer was unable to leave message reminding patient of imaging that is due. Attempted to call patient and got voicemail but jingle writer was unable to leave message due to it being full. Will try again later and send letter with order via mail. Attempted to call patient and got voicemail but jingle writer was unable to leave message due to it being full. Letter and order mailed to address on file. Will follow up in 1 month. Attempted to call patient and got voicemail but jingle writer was unable to leave message due to it being full. documented in this encounter [facility] 01-14-2024 Telephone encounter Note Per January 2024 recall, patient is due for routine CUS imaging per Dr. Terrell. Please call to remind patient and provide central scheduling number if needed. Will call with results once completed. [facility] 01-14-2024 Telephone encounter Note Called patient, call went to but inbox was full and jingle writer was unable to leave message reminder for imaging. Will try again later. [facility] 01-14-2024 Telephone encounter Note Received call today 01/14/24 1:05 from patient in regard to previous message and I informed him of clinical staff's messages below - he voiced understanding and I provided him with Central Scheduling phone# to schedule imaging. [facility] 01-14-2024 Telephone encounter Note Called patient and reminded of imaging that is due. He stated understanding and asked if he could have it done in [place] at the [facility] facility there because he doesn't have a car and stated it would be impossible for him to make it to [place]. Communicable Disease Specialist confirmed patient had central scheduling phone number to get the scans scheduled. [facility] 01-14-2024 Telephone encounter Note Called patient and got VM but it was full so jingle writer was unable to leave message reminding patient of imaging that is due. [facility] 01-14-2024 Telephone encounter Note Attempted to call patient and got voicemail but jingle writer was unable to leave message due to it being full. Will try again later and send letter with order via mail. [facility] 01-14-2024 Telephone encounter Note Attempted to call patient and got voicemail but jingle writer was unable to leave message due to it being full. Letter and order mailed to address on file. Will follow up in 1 month. [facility] 01-14-2024 Telephone encounter Note Attempted to call patient and got voicemail but jingle writer was unable to leave message due to it being full. [facility] 10-30-2023 History of Presen t [...] (CMS/HCC) COVID-19 07/2019 CVA (cerebral vascular accident) ([facility]) Degenerative cervical disc Depression with anxiety Insomnia Marijuana abuse 10/30/2023 Multiple pulmonary nodules Neck mass 2013 Osteoarthritis Papule of skin Pigmented skin lesion of uncertain nature Rheumatic fever Stroke ([facility]) 07/2020 Testicle lump Tourette's ([facility]) Vertebral artery occlusion Vocal cord polyp Past Surgical History: Procedure Laterality Date ADENOIDECTOMY CAROTID STENT Right 09/2019 stent, RT carotid CT GUIDED TRANSVAGINAL TRANSRECTAL FLUID DRAIN 06/09/2020 CT GUIDED TRANSVAGINAL TRANSRECTAL FLUID DRAIN 06/09/2020 OTHER SURGICAL HISTORY Removal of Polyp Vocal area and Vocal Cord cyst ME EXCISION THYROGLOSSAL DUCT CYST/SINUS Procedure:DL, e/o thyroglossal [...] (CMS/HCC) Mixed hyperlipidemia documented in this encounter [facility] HealthcareEvaluation note* Diagnosis Internal carotid artery stenosis, right- Primary documented [facility]* Diagnosis Influenza- Primary Influenza with [...] acute exacerbation (CMS/HCC) documented in [facility] HealthcareEvaluation [facility]* Diagnosis Influenza- Primary Influenza with [...] encounter [facility] HealthcareInstructionsNot on filedocumented in this encounterProF[facility] SystemReason for referral (narrative)* Consultation (Routine) - Pending Review Specialty Diagnoses / Procedures Referred By Demetrius ramirez Referred To Contact General Surgery Diagnoses Sessile colonic polyp Procedures ME OFFICE/OUTPATIENT NEW HIGH MDM 60 MINUTES Azul Quezada NP [address] [place] [address] Dashawn ArguetaleDO [address] [place] [address] Referral ID Status Reason Start Date Expiration Date Visits Requested Visits Authorized [id number] Pending Review Specialty Services Required 05/19/2024 11/15/2024 [...] Vas carotid duplex bilateral Andrew Terrell MD [address] [place] [address], [address] [place] [address] Referral ID Status Reason Start Date Expiration Date V isits Requested Visits Authorized [id number] Pending Review 01/14/2024 01/13/2025 1 1 Additional Source Comments (unrecognized sect ion and content) No Status Records FoundNo Status Records FoundNo Status Records Found INFORMATION SOURCE (unrecogn ized section and content) DATE CREATED AUTHOR 09/04/2019 [facility] DATE CREATED AUTHOR AUTHOR'S ORGANIZ ATION 09/30/2022 [facility] DATE CREATED AUTHOR AUTHOR'S ORGANIZ ATION 02/18/2025 [facility] dical Specialists EPIC Care Teams (unrecognized sec tion and content) Museum Guide Relationship Specialty Start Date End Date Kiko Zurita MD PCP - General Family Medicine 04/07/23 Azul Quezada NP [address] [place] [address] Referring Physician Nurse Practitioner 04/07/23 Museum Guide Relationship Specialty Start Date End Date Kiko Zurita MD [address] [place] [address] PCP - General Family Medicine 10/24/23 Azul Quezada NP [address] [place] [address] Referring Physician Nurse Practitioner 04/07/23 Museum Guide Relationship Specialty Start Date End Date Kiko Zurita MD [address] [place] [address] PCP - General Family Medicine 10/24/23 Azul Quezada NP [address] [place] [address] Referring Physician Nurse Practitioner 04/07/23 Museum Guide Relationship Specialty Start Date End Date Kiko Zurita MD [address] [place] [address] PCP - General Family Medicine 10/24/23 Azul Quezada NP [address] [place] [address] Referring Physician Nurse Practitioner 04/07/23 Museum Guide Relationship Specialty Start Date End Date Kiko Zurita MD [address] [place] [address] PCP - General Family Medicine 10/24/23 Azul Quezada NP [address] [place] [address] Referring Physician Nurse Practitioner 04/07/23 Museum Guide Relationship Specialty Start Date End Date Kiko Zurita MD [address] [place] [address] PCP - General Family Medicine 10/24/23 Azul Quezada NP [address] [place] [address] Referring Physician Nurse Practitioner 04/07/23 Museum Guide Relationship Specialty Start Date End Date Kiko Zurita MD [address] [place] [address] PCP - General Family Medicine 10/24/23 Azul Quezada NP [address] [place] [address] Referring Physician Nurse Practitioner 04/07/23 Museum Guide Relationship Specialty Start Date End Date Kiko Zurita MD [address] [place] [address] PCP - General Family Medicine 10/24/23 Azul Quezada NP [address] [place] [address] Referring Physician Nurse Practitioner 04/07/23 Museum Guide Relationship Specialty Start Date End Date Kiko Zurita MD [address] [place] [address] PCP - General Family Medicine 10/24/23 Azul Quezada NP [address] [place] [address] Referring Physician Nurse Practitioner 04/07/23 Museum Guide Relationship Specialty Start Date End Date Kiko Zurita MD [address] [place] [address] PCP - General Family Medicine 10/24/23 Azul Quezada NP [address] [place] [address] Referring Physician Nurse Practitioner 04/07/23 Museum Guide Relationship Specialty Start Date End Date Kiko Zurita MD [address] [place] [address] PCP - General Family Medicine 10/24/23 Azul Quezada NP [address] [place] [address] Referring Physician Nurse Practitioner 04/07/23 Museum Guide Relationship Specialty Start Date End Date Azul Quezada, CDL [employer]UCK [employer] [address] [place] [address] PCP - General Nurse Practitioner 08/30/19 Museum Guide Relationship Specialty Start Date End Date Kiko Zurita MD [address] [place] [address] PCP - General Family Medicine 10/24/23 Azul Quezada NP [address] [place] [address] PCP - ACO Reach 10/29/24 Azul Quezada NP [address] [place] [address] Referring Physician Nurse Practitioner 04/07/23 Museum Guide Relationship Specialty Start Date End Date Kiko Zurita MD [address] [place] [address] PCP - General Family Medicine 10/24/23 Azul Quezada NP [address] [place] [address] PCP - ACO Reach 10/29/24 Azul Quezada NP [address] [place] [address] Referring Physician Nurse Practitioner 04/07/23 Museum Guide Relationship Specialty Start Date End Date Kiko Zurita MD [address] [place] [address] PCP - General Family Medicine 10/24/23 Azul Quezada NP [address] [place] [address] PCP - ACO Reach 10/29/24 Azul Quezada NP [address] [place] [address] Referring Physician Nurse Practitioner 04/07/23 Museum Guide Relationship Specialty Start Date End Date Kiko Zurita MD [address] [place] [address] PCP - General Family Medicine 10/24/23 Azul Quezada NP [address] [place] [address] PCP - ACO Reach 10/29/24 Azul Quezada NP [address] [place] [address] Referring Physician Nurse Practitioner 04/07/23 Museum Guide Relationship Specialty Start Date End Date Kiko Zurita MD [address] [place] [address] PCP - General Family Medicine 10/24/23 Azul Quezada NP [address] [place] [address] PCP - ACO Reach 10/29/24 Azul Quezada NP [address] [place] [address] Referring Physician Nurse Practitioner 04/07/23 Museum Guide Relationship Specialty Start Date End Date Kiko Zurita MD [address] [place] [address] PCP - General Family Medicine 10/24/23 Azul Quezada NP [address] [place] [address] PCP - ACO Reach 10/29/24 Azul Quezada NP [address] [place] [address] Referring Physician Nurse Practitioner 04/07/23 Reason for [...] BE BASED ON THE PRIMARY CLINICAL RECORDS. [employer] provides no warranty or guarantee of the accuracy or completeness of information in this document.
--- NOTE | 2025-05-09 09:00 | CM.NOTE ---
Rounds made with Dr. Watkins, discussed with pt reason for admission and plan of care. Pt now requiring 2L NC. Clarified status with Dr. Watkins, pt will be inpatient status. No discharge today.
[2025-05-09] MEDS: ENOXAPARIN SODIUM 40 MG/0.4 ML SYRINGE SUBQ (09:15)
--- NOTE | 2025-05-09 09:35 | PM.HP ---
HPI H&P: HPI History of Present Illness Chief complaint: COPD EXACERBATION Narrative: Mr. Carrasco is a 64-year-old gentleman with a known diagnosis of COPD. He came in with progressive wheezing, shortness of breath, cough and congestion. No fever or chills. Cough productive to clear sputum. No abdominal pain, nausea or vomiting. No chest pain Opioid HPI Opioid Management Most Recent Pain and Opioid Data: Last Pain Scale 0 10/23/23, 04:14 Last Pain Assessment Today, 06:00 Last ORT Total Score 3 Today, 05:53 Last ORT Risk Category Low Risk Today, 05:53 Review of Systems ROS Status of ROS 10 or more systems reviewed and unremarkable except as noted in history and below [facility] Medical History (Updated 05/09/25 @ 09:37 by Mio Watkins MD) History of common carotid artery stent placement ?Z98.890 - Other specified postprocedural states (ICD-10) ?Z95.828 - Presence of other vascular implants and grafts (ICD-10) 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 - Polyp of vocal cord and larynx (ICD-10) Vertebral artery occlusion ?I65.09 - Occlusion and stenosis of unspecified vertebral artery (ICD-10) Tourette's ?F95.2 - Tourette's disorder (ICD-10) Testicle lump ?N50.89 - Other specified disorders of the male genital organs (ICD-10) Rheumatic fever ?I00 - Rheumatic fever without heart involvement (ICD-10) Pigmented skin lesion of uncertain nature ?L81.9 - Disorder of pigmentation, unspecified (ICD-10) Papule of skin ?R23.8 - Other skin changes (ICD-10) Osteoarthritis ?M19.90 - Unspecified osteoarthritis, unspecified site (ICD-10) Neck mass ?R22.1 - Localized swelling, mass and lump, neck (ICD-10) Multiple pulmonary nodules ?R91.8 - Other nonspecific abnormal finding of lung field (ICD-10) Marijuana abuse ?F12.10 - Cannabis abuse, uncomplicated (ICD-10) Insomnia ?G47.00 - Insomnia, unspecified (ICD-10) Degenerative cervical disc ?M50.30 - Other cervical disc degeneration, unspecified cervical region (ICD-10) CVA (cerebral vascular accident) ?I63.9 - Cerebral infarction, unspecified (ICD-10) COVID-19 ?U07.1 - COVID-19 (ICD-10) Centrilobular emphysema ?J43.2 - Centrilobular emphysema (ICD-10) Calcified lymph nodes ?I89.8 - Other specified noninfective disorders of lymphatic vessels and lymph nodes (ICD-10) Bilateral carotid artery stenosis ?I65.23 - Occlusion and stenosis of bilateral carotid arteries (ICD-10) Allergic rhinitis ?J30.9 - Allergic rhinitis, unspecified (ICD-10) Alcohol abuse ?F10.10 - Alcohol abuse, uncomplicated (ICD-10) Anxiety ?F41.9 - Anxiety disorder, unspecified (ICD-10) Cerebrovascular disease ?I67.9 - Cerebrovascular disease, unspecified (ICD-10) COPD (chronic obstructive pulmonary disease) ?J44.9 - Chronic obstructive pulmonary disease, unspecified (ICD-10) Depression, unspecified ?F32.A - Depression, unspecified (ICD-10) Dyslipidemia ?E78.5 - Hyperlipidemia, unspecified (ICD-10) 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 - Other diseases of vocal cords (ICD-10) Surgical History (Updated 06/08/24 @ 11:14 by Lidia Fontanez) History of vocal cord polypectomy ?Z98.890 - Other specified postprocedural states (ICD-10) H/O adenoidectomy ?Z90.89 - Acquired absence of other organs (ICD-10) History of tonsillectomy ?Z90.89 - Acquired absence of other organs (ICD-10) Family History (Updated 06/15/24 @ 06:35 by Cira Palacio RN) Mother Family history of CHF (congestive heart failure) Family history of COPD (chronic obstructive pulmonary disease) Hypertension Sister Family history of diabetes mellitus Father Family history of cancer Other Family history of myocardial infarction Social History (Updated 05/09/25 @ 06:12 by Silvana Kirkpatrick RN) Within the past year, how often did you have a drink containing alcohol: never Within the past year, how often did you have six or more drinks on one occasion: never Score interpretation: A score less than 4 is consistent with normal alcohol consumption. Smoking status: Former smoker Second hand tobacco smoke exposure: No Non-prescribed substance use: cannabis (any form) Previous occupational history: retired Known occupational exposures/hazards: No Highest level of school completed/degree received: high school graduate Are you now , , , , never or living with a partner: living with partner In a typical week, how many times do you talk on the telephone with family, friends, or neighbors: 3 or more times per week How often do you get together with friends or relatives: 3 or more times per week How often do you attend restorationism or latter day services: 1-3 times per year Do you belong to any clubs or organizations such as restorationism groups unions, [employer] or athletic groups, or school groups: no Total score: 2 Score interpretation: A score of greater than or equal to 2 indicates the lowest level of social isolation. Little interest or pleasure in doing things: not at all Feeling down, depressed, or hopeless: not at all Feel stressed/tense/nervous/anxious/difficulty sleeping: not at all Due to disability, difficulty making decisions: No Do you think of yourself as: straight/heterosexual Gender Identity: male Meds Home Medications and Allergies Home Medications ?Medication ?Instructions ?Recorded ?Confirmed ?Type albuterol sulfate 90 mcg/actuation 2 inh inhalation Q4H PRN shortness 09/21/23 05/09/25 History aerosol inhaler of breath or wheezing aspirin 81 mg tablet,delayed 81 mg PO DAILY previous stroke 09/21/23 05/09/25 History release atorvastatin 40 mg tablet 40 mg PO .qhs 09/21/23 05/09/25 History trazodone 50 mg tablet 50 mg PO BEDTIME 09/21/23 05/09/25 History albuterol sulfate 2.5 mg/3 mL 2.5 mg (3 mL) inhalation Q6H PRN 09/26/24 05/09/25 Rx (0.083 %) solution for nebulization shortness of breath or wheezing #75 mL fluoxetine 20 mg capsule 20 mg PO DAILY 05/09/25 05/09/25 History ipratropium 0.5 mg-albuterol 3 mg 3 ml inhalation Q4H PRN shortness 05/09/25 05/09/25 History (2.5 mg base)/3 mL nebulization of breath or wheezing soln prednisone 5 mg tablet 5 mg PO DAILY 05/09/25 05/09/25 History Allergies Allergy/AdvReac Type Severity Reaction Status Date / Time bee venom protein (honey bee) Allergy Severe Anaphylaxis Verified 05/09/25 02:29 Exam Narrative Exam Narrative: [pt is awake and alert. oriented to place, time and person HEENT: [place] conjunctiva and NL buccal mucosa Neck: Supple, no tenderness Endocrine: No Thyromegaly. Vascular: No JVD or carotid bruit. Lymphatic: No cervical lymphadenopathy. Chest: Bilateral wheezing or rhonchi. Heart RRR, no extra sound or murmur. Abd: Soft, no tenderness, no rebound and no rigidity. Increase abd girth therefore clinically I could not exclude the possibility of intra abd mass or organomegaly. LE: No cyanosis or clubbing, no varices or edema. Neuro: A A O. Nl speech, comprehension and attention. Nl and symetrical motor and tone examination through out. []] Constitutional Vital Signs, click to edit/add: Last Vital Signs Temp 97.8 F 05/09/25 07:52 Pulse 90 05/09/25 07:52 Resp 20 05/09/25 07:52 BP 132/73 05/09/25 07:52 Pulse Ox 95 05/09/25 08:17 O2 Del Method Nasal Cannula 05/09/25 08:17 O2 Flow Rate 2 05/09/25 08:17 Results Labs Labs: Short CBC 05/09/25 Range/Units 02:35 WBC 9.6 (4.0-11.0) 10^3/uL Hgb 14.2 (14.0-18.0) g/dL Hct 43.5 (42.0-54.0) % Plt Count 296 (150-450) 10^3/uL BMP 05/09/25 02:35 Sodium 141 Potassium 4.5 Chloride 104 Carbon Dioxide 30.0 BUN 21.0 H Creatinine 1.02 Glucose 97 Calcium 8.7 Liver Function 05/09/25 Range/Units 02:35 Total Bilirubin 0.7 (0.2-1.0) mg/dL AST 18 (15-37) U/L ALT 24 (16-63) U/L Alkaline Phosphatase 67 (46-116) U/L Albumin 3.8 (3.4-5.0) g/dL Assessment and Plan Assessment and Plan (1) Acute exacerbation of chronic obstructive pulmonary disease: (2) Acute bronchitis: (3) Acute hypoxic respiratory failure: Plan Acute hypoxic respiratory failure secondary to Acute bronchitis Acute COPD exacerbation. D-dimer is negative. Likelihood of PE is low. I started patient on albuterol, Atrovent, Solu-Medrol and antibiotic Requested COVID, RSV and influenza AMB. Patient may be infected but other viruses not tested such as parainfluenza, [place] human pneumo virus, adenovirus and others. Home O2 evaluation prior to discharge Inreased risk of lung cancer due to previous smoking for 30 years. Recommend yearly low-dose CAT scan of the chest to screen for lung cancer to be arranged by PCP. DVT prophylax Lovenox subcu History of stroke and carotid stenosis Continue aspirin. Chronic medical conditions not listed above, incidental findings seen on labs and imaging. These would need to be addressed. Could be addressed when time and condition are appropriate. Could be addressed in the outpatient setting by PCP collaboration with other needed outpatient providers.
[2025-05-09] MEDS: ASPIRIN 81 MG TABLET.DR PO (10:21)
[2025-05-09] MEDS: METHYLPREDNISOLONE SOD SUCC PF 40 MG/ML VIAL IVP ×2 (10:22→21:54)
[2025-05-09 10:35] LABS: SARS-CoV-2 Ag NEGATIVE (NEGATIVE)
--- NOTE | 2025-05-09 11:46 | CM.NOTE ---
Important Message From Medicare discussed with pt, pt verbalizes understanding and signs paper. Original given to pt and copy placed in pt's chart. Pt admitted with exacerbation COPD, talked with pt about preventative care. Pt was seeing Dr. Boo in the outpatient setting, pt at this time does not plan on following Dr. Boo. Dr. Boo has relocated practice, pt requesting to see another microsoft developer. Pt provided with contact information for [facility], pt will need referral provided from PCP. Pt verbalizes understanding. CM also discussed pulmonary rehab with pt and provided educational pamphlet. Pt verbalizes he does have nebulizer machine at home and uses daily along with inhaler. Pt does verbalize he is active at home. CM will also put on discharge instructions pt's need for PCP referral to pulmonology for reminder.
[2025-05-09] MEDS: TRAZODONE HCL 50 MG TABLET PO (21:54)
[2025-05-09] MEDS: ATORVASTATIN CALCIUM 40 MG TABLET PO (21:54)
[2025-05-09] MEDS: FLUOXETINE HCL 20 MG CAPSULE PO (21:54)
[2025-05-10] VITALS (8 sets, daily range): BP systolic 112–121; BP diastolic 61–69; PULSE 71–95; TEMP 36.2–36.7; O2SAT 84–96
[2025-05-10] MEDS: ASPIRIN 81 MG TABLET.DR PO (08:28)
[2025-05-10] MEDS: METHYLPREDNISOLONE SOD SUCC PF 40 MG/ML VIAL IVP ×2 (08:28→21:30)
[2025-05-10] MEDS: ENOXAPARIN SODIUM 40 MG/0.4 ML SYRINGE SUBQ (08:28)
--- NOTE | 2025-05-10 09:10 | CM.NOTE ---
Rounds made with Dr. Watkins, pt continues to require oxygen @ 2L NC. Pt does not have home oxygen, pt will need walk test prior to discharge. No discharge today.
[2025-05-10] MEDS: IPRATROPIUM/ALBUTEROL SULFATE 3 ML AMPUL.NEB IH ×3 (09:25→20:40)
--- NOTE | 2025-05-10 11:08 | PM.PN ---
Progress Note: Subjective Subjective Interval history: Patient is feeling definitely better. Less cough and congestion. Less wheezing. Exam Narrative Exam Narrative: [pt is awake and alert. oriented to place, time and person HEENT: [place] conjunctiva and NL buccal mucosa Neck: Supple, no tenderness Endocrine: No Thyromegaly. Vascular: No JVD or carotid bruit. Lymphatic: No cervical lymphadenopathy. Chest: Bilateral wheezing or rhonchi. Much less intense than previously noted Heart RRR, no extra sound or murmur. Abd: Soft, no tenderness, no rebound and no rigidity. Increase abd girth therefore clinically I could not exclude the possibility of intra abd mass or organomegaly. LE: No cyanosis or clubbing, no varices or edema. Neuro: A A O. Nl speech, comprehension and attention. Nl and symetrical motor and tone examination through out. []] Constitutional Vital Signs, click to edit/add: Last Vital Signs Temp 97.1 F L 05/10/25 07:21 Pulse 71 05/10/25 09:29 Resp 20 05/10/25 09:29 BP 121/68 05/10/25 07:21 Pulse Ox 96 05/10/25 09:29 O2 Del Method Nasal Cannula 05/10/25 09:29 O2 Flow Rate 2 05/10/25 09:29 Progress Note: A&P Assessment and Plan (1) Acute exacerbation of chronic obstructive pulmonary disease: (2) Acute bronchitis: (3) Acute hypoxic respiratory failure: Plan Acute hypoxic respiratory failure secondary to Acute bronchitis Acute COPD exacerbation. D-dimer is negative. Likelihood of PE is low. I started patient on albuterol, Atrovent, Solu-Medrol and antibiotic Requested COVID, RSV and influenza AMB. Patient may be infected but other viruses not tested such as parainfluenza, Stanton human pneumo virus, adenovirus and others. Home O2 evaluation prior to discharge Much improved over the last 24 hours. Not ready yet to be discharged home due to persistent symptoms. Potential discharge tomorrow. Inreased risk of lung cancer due to previous smoking for 30 years. Recommend yearly low-dose CAT scan of the chest to screen for lung cancer to be arranged by PCP. DVT prophylax Lovenox subcu History of stroke and carotid stenosis Continue aspirin. Chronic medical conditions not listed above, incidental findings seen on labs and imaging. These would need to be addressed. Could be addressed when time and condition are appropriate. Could be addressed in the outpatient setting by PCP collaboration with other needed outpatient providers.
[2025-05-10] MEDS: AZITHROMYCIN 500 MG in 0.9 % SODIUM CHLORIDE 250 ML 250 MG IV (11:51)
[2025-05-10] MEDS: TRAZODONE HCL 50 MG TABLET PO (21:30)
[2025-05-10] MEDS: ATORVASTATIN CALCIUM 40 MG TABLET PO (21:30)
[2025-05-10] MEDS: FLUOXETINE HCL 20 MG CAPSULE PO (21:30)
[2025-05-11] VITALS: BP 134/66; PULSE 72; TEMP 36.4; O2SAT 95
[2025-05-11 04:00] VITALS: BP 145/76; PULSE 74; TEMP 36.5; O2SAT 94
[2025-05-11 07:45] VITALS: BP 146/84; PULSE 72; TEMP 36.6; O2SAT 94
--- NOTE | 2025-05-11 08:15 | CM.NOTE ---
Rounds made with Dr. Watkins, pt will discharge to home today. Pt is on RA at this time (at rest), pt will have walk test prior to discharge.
[2025-05-11 08:33] VITALS: O2SAT 82; O2SAT 88; O2SAT 90
[2025-05-11] MEDS: METHYLPREDNISOLONE SOD SUCC PF 40 MG/ML VIAL IVP (08:41)
[2025-05-11] MEDS: ENOXAPARIN SODIUM 40 MG/0.4 ML SYRINGE SUBQ (08:41)
[2025-05-11] MEDS: ASPIRIN 81 MG TABLET.DR PO (08:41)
--- NOTE | 2025-05-11 08:45 | CM.NOTE ---
Pt does qualify for home oxygen. DME filled out by [facility] and Dr. Watkins aware of home oxygen need and signed order. SW will call company to set up oxygen and update patient.
--- NOTE | 2025-05-11 09:01 | PM.DS1 ---
DS: Providers Provider Date of admission: 05/09/25 08:35 Primary care physician: Azul Quezada NP DS: Diagnosis Discharge Diagnosis (1) Acute exacerbation of chronic obstructive pulmonary disease: (2) Acute bronchitis: (3) Acute hypoxic respiratory failure: Plan As listed above and others that are not listed DS: Summary Hospital Course Hospital Course: Mr. Ellis is a 64-year-old gentleman who came in with cough, wheezing and shortness of breath. He was found to have the following Acute hypoxic respiratory failure secondary to Acute bronchitis Acute COPD exacerbation. D-dimer is negative. Likelihood of PE is low. I started patient on albuterol, Atrovent, Solu-Medrol and antibiotic Requested COVID, RSV and influenza A/B. Patient may be infected but other viruses not tested such as parainfluenza, Raymond human pneumo virus, adenovirus and others. Home O2 evaluation prior to discharge. Much improved over the last 48 hours. Patient is ready for discharge. Patient will be arranged to follow-up with Dr. 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 Recommend yearly low-dose CAT scan of the chest to screen for lung cancer to be arranged by PCP. DVT prophylax Lovenox subcu History of stroke and carotid stenosis Continue aspirin. Chronic medical conditions not listed above, incidental findings seen on labs and imaging. These would need to be addressed. Could be addressed when time and condition are appropriate. Could be addressed in the outpatient setting by PCP collaboration with other needed outpatient providers. Time Spent with Patient Time attestation: Total time spent providing and/or coordinating discharge services: Time spent: greater than 30 minutes Exam Constitutional Vital Signs, click to edit/add: Last Vital Signs Temp 97.9 F 05/11/25 07:45 Pulse 72 05/11/25 07:45 Resp 18 05/11/25 07:45 BP 146/84 H 05/11/25 07:45 Pulse Ox 94 L 05/11/25 07:45 O2 Del Method Room Air 05/11/25 07:45 O2 Flow Rate 2 05/11/25 04:00 Discharge Plan Discharge Disposition: Home, Self-Care Discharge Medications: New fluticasone propion-salmeterol [Advair Diskus] 250-50 mcg/dose blister with device 1 inh inhalation BID Qty: 60 3RF azithromycin [Zithromax] 500 mg tablet 500 mg PO DAILY 5 Days Qty: 5 0RF prednisone 10 mg tablet 10 mg PO DAILY Qty: 24 0RF Rx Instructions: Take 1 tablet 3 times a day for 4 days then 1 tablet twice a day for 4 days then 1 tablet daily for 4 days Continued atorvastatin 40 mg tablet 40 mg PO .qhs trazodone 50 mg tablet 50 mg PO BEDTIME aspirin 81 mg tablet,delayed release (DR/EC) 81 mg PO DAILY fluoxetine 20 mg capsule 20 mg PO DAILY albuterol sulfate 90 mcg/actuation HFA aerosol inhaler 2 inh INHALATION Q4H PRN (Reason: shortness of breath or wheezing) Qty: 1 3RF Changed ipratropium-albuterol 0.5 mg-3 mg(2.5 mg base)/3 mL solution for nebulization 3 ml inhalation Q4H PRN (Reason: shortness of breath or wheezing) Qty: 180 3RF Held prednisone 5 mg tablet 5 mg PO DAILY Hold Instructions: Resume on 05/23/25. Discontinued albuterol sulfate 2.5 mg /3 mL (0.083 %) solution for nebulization 2.5 mg inhalation Q6H PRN (Reason: shortness of breath or wheezing) Qty: 75 0RF Print Language: Fijian Activity Restrictions/Additional Instructions: I may not have addressed or treated all of your medical illnesses or the abnormal blood work or imaging studies during this hospitalization. Please ask your primary care provider to obtain [facility] records entirely to follow up on all of the abnormal physical, laboratory, and imaging findings that I have not addressed. Please ask your primary care doctor to initiate an official referral for you to see lung specialist Dr. Sam Juarez I would recommend you to continue to have low-dose radiation CAT scan of the chest every year to screen for lung cancer to be arranged by your primary care doctor or lung specialist Please return back to the emergency room or seek medical attention if your symptoms worsen or return. Discharging you from [facility] does not mean that your medical care ends here and now. You may still need additional monitoring, work up, investigation, and treatment plan to be handled from this point on by out patient providers including your primary care provider and specialists. For any medication question, please contact your retail pharmacist or your primary care provider. Thank you. 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 Pt will need referral from Primary Care Forms: Portal Instructions
--- NOTE | 2025-05-11 09:28 | SWNOTE1 ---
SW reviewed walk test and pt did qualify for home oxygen. SW stopped in and spoke with pt in regards to DME company for home oxygen. Pt does not have a preference, but pt does live in [place]. Closest location is [facility] and would like to use them. SW to send referral once completed.
[2025-05-11] MEDS: IPRATROPIUM/ALBUTEROL SULFATE 3 ML AMPUL.NEB IH (09:29)
[2025-05-11 09:30] VITALS: PULSE 82; O2SAT 92; O2SAT 96
--- NOTE | 2025-05-11 10:01 | SWNOTE1 ---
Oxygen prescription, walk test, H&P, dc summary, and face sheet faxed to [facility] for home oxygen.
[2025-05-11 11:49] VITALS: BP 156/74; PULSE 76; TEMP 36.7; O2SAT 90
--- NOTE | 2025-05-11 12:20 | SWNOTE1 ---
JALIL received a voicemail from Suha at [facility] and oxygen is all set, but she needs a credit card on file since pt does not have a secondary insurance. He will owe 20%. JALIL tried to call Suha back, but she was at lunch. JALIL went and spoke with pt and he was alright with this. JALIL advised that JALIL will be back around 1:00 or when Suha calls back so he can speak with her over the phone, once that is complete pt can be discharged. JALIL updated nurse
--- NOTE | 2025-05-11 13:01 | SWNOTE1 ---
JALIL received a call from Suha at [facility]. JALIL went in room with phone. Suha advised pt that he will have a co-pay that will be monthly for his oxygen, it will be $28/35 per month. Pt voiced understanding. He would prefer it come out on the 4th of every month. Suha is able to set it up for the 4th of the month. If pt is weaned off oxygen and does not need it anymore and returns equipment, he will not be charged. Pt is all set with home oxygen. JALIL was able to put [facility]'s phone number in pt's phone and advised him to call them once he arrives home and they will deliver the rest of the supplies. He voiced understanding. Pt called his sister and she is on her way. JALIL notified pt's nurse.
== END 2025-05-11 13:22 | disposition home or self-care (01) | DRG 190 ==
LOC: ER 03:15 → MS 05:49
PROVIDERS: Admitting Provider Internal Medicine; Emergency Provider Emergency Medicine; PCP Nurse Practitioner; Visit Provider Internal Medicine
DX: J44.1 Chronic obstructive pulmonary disease with (acute) exacerbation (principal); J96.01 Acute respiratory failure with hypoxia; R05.3 Chronic cough; F41.9 Anxiety disorder, unspecified; F32.A Depression, unspecified; I10 Essential (primary) hypertension; J44.0 Chronic obstructive pulmonary disease with (acute) lower respiratory infection; J20.9 Acute bronchitis, unspecified; J43.2 Centrilobular emphysema; I65.23 Occlusion and stenosis of bilateral carotid arteries; Z79.82 Long term (current) use of aspirin; Z79.51 Long term (current) use of inhaled steroids; Z79.899 Other long term (current) drug therapy; Z86.73 Personal history of transient ischemic attack (TIA), and cerebral infarction without residual deficits; Z95.828 Presence of other vascular implants and grafts; Z87.891 Personal history of nicotine dependence; Z82.49 Family history of ischemic heart disease and other diseases of the circulatory system
CPT/HCPCS: 36415; 71045; 80053; 83880; 84484; 85025; 85378; 87420; 87804; 87811; 93005; 94640; 94761; 96365; 96375; 99285; J0456; J1650; J2919; J3475

== ENCOUNTER 2025-05-26 11:45 | Outpatient (OUT) | payer MEDICARE, SELFPAY ==
--- OUTSIDE RECORDS SUMMARY | 2024-12-07 08:49 | XMS_ITS ---
Author Organization [facility] [place] Address [address] [place] [address] Care Team Providers Care Transfer Table Operator Name Role Phone Leidyulysses ZANE Azul Primary Care Provider Unavail able Valeriy Boo Unavailable [phone] REASON FOR VISIT Appointment Confirmation Encounters Encounter Location Date Provider Diagnosis Pulmonary Medicine [facility] [address] [place] [address] 12/07/2024 Valeriy Boo Plan Of Treatment No Information Progress Notes * Sam KRAMER KDOB:[birth year] (64 yo M)Acc No.[id number]:12/07/2024 Patient: Scott BRADLEY Sam Crews :1960 A ge:64 Y S ex:Male Address:[address], [address] * true * Date: Generated for Printi ng/Faelsyg/eTransmitting on: 0 05/26/2025 11:48 AM EDT
--- OUTSIDE RECORDS SUMMARY | 2024-12-14 09:30 | XMS_ITS ---
Author Organization [facility] in [place] Address [address] [place] [address] Care Team Providers Care Tax Economist Name Role Phone Leidymaxrani DEGROOT Azul Primary Care Provider Unavail able Rajeev Valeriy Unavailable [phone] Allergies No Known Allergies REASON FOR VISIT 2m F/U - Nodules (CT), COPD Medications Medication SIG (Take, Route, Frequency, Duration) Notes Start Date End Date Status Ipratropium-Albuterol 0.5-2.5 (3) MG/3ML 3mL Inhalation Q4H for 30 days Active Spiriva Respimat 2.5 MCG/ACT 2 puffs Inhalation QD for 90 days Active Albuterol Sulfate HFA 108 (90 Base) MCG/ACT 2 puffs as needed for SOB Inhalation Q4H for 90 days Active FLUoxetine HCl 20 MG 1 tablet Oral for 30 days Active hydrOXYzine HCl 25 MG TAKE 1 TO 2 TABLET S BY MOUTH EVERY 8 HOURS NEEDED FOR ANXIETY for up to TEN days Oral for 10 Days Active Atorvastatin Calcium 40 MG TAKE 1 TABLET BY MOUTH DAILY Oral for 30 Days Active Budesonide-Formoterol Fumarate 160-4.5 MCG/ACT 2 puffs as needed for SOB Inhalation Q4H for 90 days Rinse after use Active Aspirin Low Dose 81 MG TAKE 1 TABLET BY MOUTH ONCE DAILY Oral for 30 Days Active Social History Tobacco Use: Social History Observation Description Date Details (start date - stop date) Former Smoker NA - NA Tobacco Control (Standard) Question Answer Notes Tobacco use: Former smoker How long has it been since y ou last smoked? 1-5 years Additional Findings: Tobacco non-user Ex-heavy c igarette smoker (20-30/day) Vital Signs Temperature 97.1 degrees Fahrenheit 12/15/19 Blood pressure systolic 160 mm Hg 12/15/19 Blood pressure diastolic 89 mm Hg 025 Heart Rate 97 /min 12/14/2024 Respiratory Rate 18 /min 12/14/2024 Height 74 in 12/14/2024 Weight 209.0 lbs 12/14/2024 BMI 26.83 kg/m2 12/14/2024 Oximetry 94 % 12/14/2024 Encounters Encounter Location Date Provider Diagnosis Pul[facility] [place] [address] [place] [address] 12/14/2024 Valeriy Boo Centrilobular emphys promise J43.2 ; Multiple pulmonary nodules R91.8 ; History of tobacco abuse Z87.891 ; residential (current) use of inhaled steroids Z79.51 and Encounter for screening for malignant neoplasm of respiratory organs Z12.2 Assessments Encounter Date Diagnosis (ICD Code) Assessment Notes Treatment Notes Treatment Clinical Notes Section Notes 12/14/2024 Centrilobular emphysema (ICD-10 - J43.2) Prior treatments: Symbicort 160 + Spiriva 2.5 > Stiolto, Advair, Trelegy & Breo (does not tolerate dry powder inhalers) He voiced concerns about medication costs - he was directed to contact his insurance about a formulary. Ohtuvayre was already too expensive for him. PFT was ordered but unable to be done. Patient was encouraged to reschedule as the PFT is needed to see if he would qualify for certain programs and treatments (e.g. pulmonary rehabilitation, endobronchial valves). He remains symptomatic daily, using albuterol & DuoNeb multiple times throughout the day. He is at the point that he may benefit from daily systemic steroid use (Ohtuvayre could have possibly spared him from this). 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 Patient voiced he would hold off on prednisone for now, but will seriously consider it. Regarding work, as he is at the point to consider prednisone-dependen cy, and last PFT was 27% in 2019, discussed (again) looking into disability for COPD. He states he will contact them. F/U 3 months, or sooner PRN. 12/14/2024 Multiple pulmonary nodules (ICD-10 - R91.8) LDCT 09/06/2024 showed new RLL opacity at 1.9cm and 3 LLL opacities largest 1.4cm. These have resolved on chest CT 12/07/2024. Will resume annual LDCT screening which will be due 11/2025. 12/14/2024 History of tobacco abuse (ICD-10 - Z87.891) 1ppd x ~35 years, quit 2021 1ppd x ~35 years, quit 2022. Will resume annual LDCT screening beginning 11/2025. Do not restart smoking anything! 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 12/14/2024 Encounter for screening for malignant neoplasm of respiratory organs (ICD-10 - Z12.2) Low-dose CT (LDCT) was recommended for lung cancer screening. The patient meets criteria including age 50-77, a smoking history of at least 20 pack-years, is currently smoking or has ceased smoking within the past 15 years, and has no signs or symptoms of lung cancer. Shared decision making performed with the patient. After LDCT has been completed, will review report and/or imaging and provide appropriate recommendations for the patient, including additional follow up if needed. Patient was counseled on smoking cessation/continued tobacco abstinence. Due 11/2025. 12/14/2024 Other Plan Of Treatment Medication Medication Name Sig Start Date Stop Date Notes Albuterol Sulfate HFA 108 (9 0 Base) MCG/ACT 2 puffs as needed for SOB Inhalation Q4H for 90 days Treatment Notes Assessment Notes Centrilobular emphysema Prior treatments: Symbicort 160 + Spiriva 2.5 > Stiolto, Advair, Trelegy & Breo (does not tolerate dry powder inhalers) He voiced concerns about medication costs - he was directed to contact his insurance about a formulary. Ohtuvayre was already too expensive for him. PFT was ordered but unable to be done. Patient was encouraged to reschedule as the PFT is needed to see if he would qualify for certain programs and treatments (e.g. pulmonary rehabilitation, endobronchial valves). He remains symptomatic daily, using albuterol & DuoNeb multiple times throughout the day. He is at the point that he may benefit from daily systemic steroid use (Ohtuvayre could have possibly spared him from this). Discussed adverse effects of snf systemic steroids including, but not limited to: increased risk of cataracts, elevated blood sugars/worsening of underlying diabetes mellitus, impaired wound healing, gastrointestinal ulcers, osteoporosis. Patient voiced he would hold off on prednisone for now, but will seriously consider it. Regarding work, as he is at the point to consider prednisone-dependency, and last PFT was 27% in 2019, discussed (again) looking into disability for COPD. He states he will contact them. F/U 3 months, or sooner PRN. Multiple pulmonary nodules LDCT 09/06/2024 showed new RLL opacity at 1.9cm and 3 LLL opacities largest 1.4cm. These have resolved on chest CT 12/07/2024. Will resume annual LDCT screening which will be due 11/2025. History of tobacco abuse 1ppd x ~35 years, quit 2022. Will resume annual LDCT screening beginning 11/2025. Do not restart smoking anything! 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 Encounter for screening for malignant neoplasm of respiratory organs Low-dose CT (LDCT) was recommended for lung cancer screening. The patient meets criteria including age 50-77, a smoking history of at least 20 pack-years, is currently smoking or has ceased smoking within the past 15 years, and has no signs or symptoms of lung cancer. Shared decision making performed with the patient. After LDCT has been completed, will review report and/or imaging and provide appropriate recommendations for the patient, including additional follow up if needed. Patient was counseled on smoking cessation/continued tobacco abstinence. Due 11/2025. Future Test Test Name Order Date CT Chest Low Dose for Screening* 026 Next Appt Details Follow Up: 3 Months, Reason: COPD Procedure Notes * Category Sub-Category Detail Notes PFT Data: 03/08/2019-FEV1/F VC: 34%-FEV1: 27%-FVC: 60%-HVI90-98%: 12%-Bronchodilator response: Positive-RV: 161%-T%-DLCO: 50%-Flow-volume loop: Severe obstructive pattern Alpha-1 Antitrypsin Screening Date: 06/28/2019 Genotype: MM Progress Notes * Sam KRAMER KDOB:[birth year] (64 yo M)Acc No.[id number]:12/14/2024 Follow Up Patient: Sam SPEAR Provider: Ale Boo DO :1960 A ge:64 Y S ex:Male Date:12/14/2024 Address:[address] [place], [place] [address], [id number] Pcp:Azul Quezada, FOOD SALES CLERK Check In:01:13 PM ESTCheck O ut:01:55 PM EST Subjective: * Chief Complaints: * 2 m F/U - Nodules (CT), COPD * HPI: G eneral: Patient had abnormal LDCT 09/08/2024 with several new nodularities in RLL (1.9cm) and LLL (1.4cm) compared to 04/29/2023. F/U chest CT 12/07/2024 shows resolution of these nodules, with previously identified nodules in the RML & RLL unchanged in size, shape, and number. Patient remains symptomatic despite Spiriva and Symbicort. Using albuterol once @ work, but when he comes home, using DuoNeb every 4-5 hours while awake. His breathing improves while on prednisone. Attempted to prescribe Ohtuvayre, but it was too expensive for the patient. He was unable to breathe well the day he was scheduled for the PFT and it was cancelled. He has not rescheduled it as of this time. MA Intake Comments:. Patient presents for a follow-up for COPD. Patient denies tobacco use. Patient states he is using Symbicort & Stiolto daily. Patient states his insurance will no longer cover the inhalers. Patient states his insurance will not tell him what is covered.Patient states he plans to go to Social Security to find out what medications are covered. Patient reports using his rescue inhaler 1-2 times per day. Patient had a CT Chest performed at [facility] on 12/07/2024. Patient states he attempted the PFT but was unable to perform due to the weather. Patient states he will reschedule. Patient reports having good & bad days with his breathing but depending on the CT results he may stop working due to the spots on the scan. * ROS: G eneral/Constitutional: Fatigue a dmits. F ever or sweats d enies. C hange of appetite d enies. C hills d enies.?Weight Change d enies. H EENT: Dry mouth d enies. S ore throat d enies. O ral Ulcers d enies. P ost Nasal Drip A dmits. C ongestion D enies. H oarseness D enies. C ardiovascular: Tachycardia d enies. C hest pain d enies. P alpitations d enies. R espiratory: Dyspnea D aily. C ough d aily productive cough. H emoptysis d enies. W heezing a dmits. G astrointestinal: Acid Reflux/GERD/Heartburn d enies. D ysphagia d enies. M usculoskeletal: Arthralgias/joint pain D enies. S kin: Easy bruising d enies. N eurologic: Seizures d enies. T remor d enies. H ematology: Abnormal Bleeding d enies. P sychiatric: Anxiety d enies. * Active Problem List J43.2 Centrilobular emphys promise Modified On:12/31/2023U Status:confirmed Z79.51 residential (current) use of inhaled steroids Modified On:12/31/2023U Status:confirmed F12.10 Marijuana abuse Modified On:12/31/2023U Status:confirmed R91.8 Multiple pulmonary n odules Modified On:12/31/2023U Status:confirmed Z87.891 History of tobacco a buse Modified On:12/31/2023U Status:confirmed D72.19 Peripheral eosinophi manny Modified On:04/10/2024W/U Status:confirmed * Medical History: * Surgical History: t onsillectomy and adenoidectomy cyst removal-vocal cord polyp removal Right Carotid Angioplasty & Stenting 06/12/2020 * Hospitalization/Major Diagno stic Procedure: [facility] [place] [facility]2020Ac[facility] Exacerbation of COPD-[facility] 10/21/2023 * Family History: F ather: acute myocardial infarction. M other: asthma, diagnosed with Diabetes mellitus without mention of complication, type II or unspecified type, not stated as uncontrolled, Unspecified essential hypertension. * Social History: T obacco Use: T obacco Control (Standard) T obacco use: F ormer smoker H ow long has it been since you last smoked??1-5 years A dditional Findings: Tobacco non-user E x-heavy cigarette smoker (20-30/day) Electronic Cigarette use C urrent user N o LM: Additional Tobacco Questions N umber of Years Pt Smoked: 3 5 N umber of Packs per Day: 1 When did you stop smokin10/10/2022. M iscellaneous: C affeine: 1-2 cups per day. Occupation O ccupation: W [employer] part-time [employer]ment [employer]er on [employer] Pets: cats, dog. D rugs/Alcohol: D rugs H ave you used drugs other than those for medical reasons in the past 12 months? Y es M arijuana? Y es T ype: S moking, Edibles Caffeine I ntake: 1 -2 cups per day Coffee Do you drink alcohol?: Yes, Socially. Do you smoke marijuana?: Denies. * Medications: T akingAlbuterol Sulfate HFA 108 (90 Base) MCG/ACT Aerosol Solution 2 puffs as needed for SOB Inhalation Q4H Aspirin Low Dose(Aspirin) 81 MG Tablet Delayed Release TAKE 1 TABLET BY MOUTH ONCE DAILY Oral Atorvastatin Calcium 40 MG Tablet TAKE 1 TABLET BY MOUTH DAILY Oral Budesonide-Formoterol Fumarate 160-4.5 MCG/ACT Aerosol 2 puffs as needed for SOB Inhalation Q4H Rinse after useFLUoxetine HCl 20 MG Capsule 1 tablet Oral hydrOXYzine HCl 25 MG Tablet TAKE 1 TO 2 TABLETS BY MOUTH EVERY 8 HOURS NEEDED FOR ANXIETY for up to TEN days Oral Ipratropium-Albuterol 0.5-2.5 (3) MG/3ML Solution 3mL Inhalation Q4H Spiriva Respimat(Tiotropium [place]upe Monohydrate) 2.5 MCG/ACT Aerosol Solution 2 puffs Inhalation QD Taking Albuterol Sulfate HFA 108 (90 Base) MCG/ACT Aerosol Solution 2 puffs as needed for SOB Inhalation Q4H Taking Aspirin Low Dose(Aspirin) 81 MG Tablet Delayed Release TAKE 1 TABLET BY MOUTH ONCE DAILY Oral Taking Atorvastatin Calcium 40 MG Tablet TAKE 1 TABLET BY MOUTH DAILY Oral Taking Budesonide-Formoterol Fumarate 160-4.5 MCG/ACT Aerosol 2 puffs as needed for SOB Inhalation Q4H Rinse after useTaking FLUoxetine HCl 20 MG Capsule 1 tablet Oral Taking hydrOXYzine HCl 25 MG Tablet TAKE 1 TO 2 TABLETS BY MOUTH EVERY 8 HOURS NEEDED FOR ANXIETY for up to TEN days Oral Taking Ipratropium-Albuterol 0.5-2.5 (3) MG/3ML Solution 3mL Inhalation Q4H Taking Spiriva Respimat(Tiotropium [place]upe Monohydrate) 2.5 MCG/ACT Aerosol Solution 2 puffs Inhalation QD DiscontinuedArexvy(RSVPreF3 Vac Recomb Adjuvanted) 120 MCG/0.5ML Suspension Reconstituted as directed Intramuscular once Boostrix(Zdtciov-Yckzzh-Tmhec Pertussis) 5-2.5-18.5 LF-MCG/0.5 Suspension Prefilled Syringe as directed Intramuscular once Ohtuvayre(Ensifentrine) 3 MG/2.5ML Suspension 2.5mL Inhalation BID Prevnar 20(Pneumococcal 20-Wen Conj Vacc) 0.5 ML Suspension Prefilled Syringe as directed Intramuscular once traZODone HCl 50 MG Tablet TAKE 1 TABLET BY MOUTH ONCE DAILY AT BEDTIME Oral Medication List reviewed and reconciled with the patientDiscontinued Arexvy(RSVPreF3 Vac Recomb Adjuvanted) 120 MCG/0.5ML Suspension Reconstituted as directed Intramuscular once Discontinued Boostrix(Nxepfvh-Exhqvu-Boagd Pertussis) 5-2.5-18.5 LF-MCG/0.5 Suspension Prefilled Syringe as directed Intramuscular once Discontinued Ohtuvayre(Ensifentrine) 3 MG/2.5ML Suspension 2.5mL Inhalation BID Discontinued Prevnar 20(Pneumococcal 20-Wen Conj Vacc) 0.5 ML Suspension Prefilled Syringe as directed Intramuscular once Discontinued traZODone HCl 50 MG Tablet TAKE 1 TABLET BY MOUTH ONCE DAILY AT BEDTIME Oral Medication List reviewed and reconciled with the patient * Allergies: N .K.D.A.no[Allergies Verified] Objective: * Vitals: W t:209.0lbs, Ht: 74 in, BP:sittin/89mm Hg, Temp:Forehead:97.1F, HR:97/min, RR:18/min, BMI:26.83Index, Oxygen sat %:Room Air:94%, Ht-cm: 187.96 cm, Wt-k.8 kg. * Examination: E xam: GENERAL APPEARANCE: H as no conversational dyspnea. Skin N ormal. Mouth P ink and moist. N o candidiasis. Oropharynx M allampati Class III. Continues to have mild clear postnasal drainage. Trachea M idline. Chest N ormal. Respiratory Normal M ovements, E ffort N ormal. Auscultation D iminished breath sounds with diffuse mild expiratory wheezes. Cardiac R egular rate and rhythm. Gastrointestinal N ormal. Vascular N o edema. Musculoskeletal N ormal posture. Neurological F ocal, intact. Psychiatric A lert and oriented x3. Mentation/Cognition N ormal. Assessment: * Assessment: 1. C entrilobular emphysema - J43.2 (Primary) 2 . M ultiple pulmonary nodules - R91.8 3 . H istory of tobacco abuse - Z87.891 N otes :1ppd x ~35 years, quit 2021 4 . L petra term (current) use of inhaled steroids - Z79.51 5 . Encounter for screening for malignant neoplasm of respiratory organs - Z12.2 Plan: * Treatment: 2. M ultiple pulmonary nodules Notes: LDCT 09/06/2024 showed new RLL opacity at 1.9cm and 3 LLL opacities largest 1.4cm. These have resolved on chest CT 12/07/2024. Will resume annual LDCT screening which will be due 11/2025. 3. H istory of tobacco abuse I maging: CT Chest Low Dose for Screening* (Ordered for 12/04/2025) Notes: 1ppd x ~35 years, quit 2022. Will resume annual LDCT screening beginning 11/2025. Do not restart smoking anything! 4. L petra term (current) use of inhaled steroids Notes: Patient was counseled to rinse & gargle with water after inhaled corticosteroid use. 5. E ncounter for screening for malignant neoplasm of respiratory organs Notes: Low-dose CT (LDCT) was recommended for lung cancer screening. The patient meets criteria including age 50-77, a smoking history of at least 20 pack-years, is currently smoking or has ceased smoking within the past 15 years, and has no signs or symptoms of lung cancer. Shared decision making performed with the patient. After LDCT has been completed, will review report and/or imaging and provide appropriate recommendations for the patient, including additional follow up if needed. Patient was counseled on smoking cessation/continued tobacco abstinence. Due 11/2025. * Procedures: A lpha-1 Antitrypsin: Screening Date: 1 . Genotype: M M. P FT: Data: 03/08/2019 -FEV1/FVC: 34%-FEV1: 27%-FVC: 60%-AFW45-65%: 12%-Bronchodilator response: Positive-RV: 161%-T%-DLCO: 50%-Flow-volume loop: Severe obstructive pattern. * Procedure Codes: * Preventive Medicine: COVID Vaccination: H as patient had COVID Vaccination? COVID Vaccination N o Patient Declined Immunization Status: P neumovacc P t Refused. I nfluenza 1 10/16/2023. Screenings/Counseling: F ALL RISK SCREENING Fall Risk Assessment: N o falls in the past year Are you afraid of falling? N o T OBACCO ACTION PLAN Patient counselled on the dangers of tobacco use and urged to quit. 0 12/14/2024 Former Education on smoking effects provided?12/14/2024 Former B SD ACTION PLAN Above Normal BMI Follow-up D ietary management education, guidance, and counseling R SV-08/30/2024. * Follow Up: 3 Months (Reason: COPD) * * Sign off status: Completed Visit Status: C HK (Check Out) true * Provider: Ale Boo DO Date: 0 12/14/2024 Generated for Yoana lazcano/[place]/Luizaitting on: 0 05/26/2025 11:47 AM EDT History and Physical Notes * HPI (History of Present Illness) Category Sub-Category Detail Notes Category Not es General Patient present s for a follow-up for COPD. Patient denies tobacco use. Patient states he is using Symbicort & Stiolto daily. Patient states his insurance will no longer cover the inhalers. Patient states his insurance will not tell him what is covered.Patient states he plans to go to Social Security to find out what medications are covered. Patient reports using his rescue inhaler 1-2 times per day. Patient had a CT Chest performed at [facility] on 12/07/2024. Patient states he attempted the PFT but was unable to perform due to the weather. Patient states he will reschedule. Patient reports having good & bad days with his breathing but depending on the CT results he may stop working due to the spots on the scan. Examination Category Sub-Category Detail Notes Category Not es Exam GENERAL APPEARANCE: Has no conversational dyspnea Skin Normal Mouth [place] and moist. No c andidiasis Trachea Midline Chest Normal Respiratory Normal Movements, Ef fort Normal Auscultation Diminished breath so unds with diffuse mild expiratory wheezes Cardiac Regular rate and rhy thm Gastrointestinal Normal Vascular No edema Musculoskeletal Normal posture Neurological Focal, intact Psychiatric Alert and oriented x 3 Mentation/Cognition Normal Oropharynx Mallampati Class III . Continues to have mild clear postnasal drainage
--- OUTSIDE RECORDS SUMMARY | 2024-12-21 06:17 | XMS_ITS ---
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 Name Role Phone Leidyulysses ZANE Azul Primary Care Provider Unavail able Valeriy Boo Unavailable [phone] REASON FOR VISIT Work Restrictions/Retire Encounters Encounter Location Date Provider Diagnosis Pulmonary Medicine [place] [address] [place] [address] 12/21/2024 Valeriy Boo Plan Of Treatment No Information Progress Notes * Sam KRAMER KDOB:[birth year] (64 yo M)Acc No.[id number]:12/21/2024 Patient: Scott PrimoCHARANSam :1960 A ge:64 Y S ex:Male Address:[address] [place], [address] * true * Date: Generated for Printi ng/Faxing/eTransmitting on: 0 05/26/2025 11:48 AM EDT
--- OUTSIDE RECORDS SUMMARY | 2025-03-10 09:00 | XMS_ITS ---
Author Organization The [facility] in [place] Address [address] [place] [address] Care Team Providers Care Chief Nurse Executive Name Role Phone Azul Quezada CNP Primary Care Provider Unavail able Valeriy Boo Unavailable [phone] REASON FOR VISIT 3m F/U - COPD Encounters Encounter Location Date Provider Diagnosis Pulmonary Medicine [place] [address] [place] [address] 03/10/2025 Valeriy Boo Plan Of Treatment No Information Progress Notes * KRAMERSam FARRAR KDOB:[birth year] (65 yo M)Acc No.[id number]:03/10/2025 UNLOCKED PROGRESS NOTE Follow Up Patient: Sam SPEAR Provider: Ale Boo DO :1960 A ge:64 Y S ex:Male Date:03/10/2025 Address:[address] [place] [address] [place], [id number] Pcp:Azul Quezada CNP Subjective: * Chief Complaints: * 1 . 3m F/U - COPD. * Medical History: Objective: * Vitals: Assessment: Plan: * Treatment: * * Electronic signature of Yamilet Boo DO on 05/26/2025 at 11:48 AM EDT Sign off status: Pending Visit Status: R /S By O/P (Rescheduled by Office/Provider) * Provider: Ale Boo DO Date: 0 03/10/2025 Generated for Yoana lazcano/Stanford/Luizaitting on: 0 05/26/2025 11:48 AM EDT
--- OUTSIDE RECORDS SUMMARY | 2025-03-14 09:30 | XMS_ITS ---
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 of systemic steroids (Z79.52) Active confirmed Vital Signs Temperature 96.8 degrees Fahrenheit 03/14/20 25 Blood pressure systolic 104 mm Hg 03/14/20 25 Blood pressure diastolic 58 mm Hg 025 Heart Rate 99 /min 03/14/2025 Respiratory Rate 20 /min 03/14/2025 Height 74 in 03/14/2025 Weight 207.8 lbs 03/14/2025 BMI 26.68 kg/m2 03/14/2025 Oximetry 91 % 03/14/2025 Encounters Encounter Location Date Provider Diagnosis Pulmonary Medicine [place] [address] [place] [address] 03/14/2025 Valeriy Boo Centrilobular emphys promise J43.2 ; History of tobacco abuse Z87.891 ; [facility] (current) use of systemic steroids Z79.52 and [facility] (current) use of inhaled steroids Z79.51 Assessments [...] years, quit 2022. LDCT due 11/2025. 03/14/2025 [facility] (current) use of systemic steroids (ICD-10 - Z79.52) Discussed adverse effects of oil heaterman systemic steroids including, but not limited to: increased risk of cataracts, elevated blood sugars/worsening of underlying diabetes mellitus, impaired wound healing, gastrointestinal ulcers, osteoporosis. 03/14/2025 manager terminal (current) use of inhaled steroids (ICD-10 - [...] ~35 years, quit 2022. LDCT due 11/2025. manager terminal (current) use of s ystemic steroids Discussed adverse effects of halfway systemic steroids including, but not limited to: increased risk of cataracts, elevated blood sugars/worsening of underlying diabetes mellitus, impaired wound healing, gastrointestinal ulcers, osteoporosis. [facility] (current) use of i nhaled steroids Patient was counseled to rinse & gargle with water after inhaled corticosteroid use. 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 Check In:01:17 PM NHUNGCheck Primo ut:01:49 PM [...] Centrilobular emphys promise Modified On:12/31/2023W/U Status:confirmed Z79.51 [facility] (current) use of inhaled steroids Modified On:12/31/2023/U Status:confirmed F12.10 Marijuana abuse Modified On:12/31/2023U Status:confirmed Z87.891 History of tobacco a buse Modified On:12/31/2023/U Status:confirmed D72.19 Peripheral eosinophi manny Modified On:12/31/2023U Status:confirmed Z79.52 [facility] (current) use of systemic steroids Modified On:03/14/2025W/U Status:confirmed * Medical History: * Surgical History: t onsillectomy and adenoidectomy cyst removal-vocal cord polyp removal Right Carotid Angioplasty & Stenting 06/12/2020 * Hospitalization/Major Diagno stic Procedure: [facility]2020[facility] Exacerbation of COPD-[facility] 10/21/2023 * Family History: F ather: [...] day. Occupation O ccupation: [employer] part-time [employer] on [employer] Pets: cats, dog. D rugs/Alcohol: D rugs [...] MG/3ML Solution 3mL Inhalation Q4H Spiriva Respimat(Tiotropium [place] Monohydrate) 2.5 MCG/ACT Aerosol Solution 2 puffs [...] Solution 3mL Inhalation Q4H Taking Spiriva Respimat(Tiotropium [place] Monohydrate) 2.5 MCG/ACT Aerosol Solution 2 puffs [...] use of systemic steroids - Z79.52 4 .?manager terminal (current) use of inhaled steroids - Z79.51 Plan: * Treatment: 2. H istory of tobacco abuse Notes: 1ppd x ~35 years, quit 2022. LDCT due 11/2025. 3. L petra term (current) use of systemic steroids Notes: Discussed adverse effects of halfway systemic steroids including, but not limited to: [...] P FT: Data: 03/08/2019 -FEV1/FVC: 34%-FEV1: 27%-FVC: 60%-REL58-21%: 12%-Bronchodilator response: Positive-RV: 161%-T%-DLCO: 50%-Flow-volume loop: Severe [...] Education on smoking effects provided?03/14/2025 Former B [place] ACTION PLAN Above Normal BMI Follow-up D ietary management education, guidance, and counseling R SV-08/30/2024. * Follow Up: 4 Months (Reason: COPD) * * Sign off status: Completed Visit Status: C HK (Check Out) true * Provider: Ale Boo DO Date: 0 03/14/2025 Generated for Yoana lazcano/[facility]/Luizaitting on: 0 05/26/2025 11:48 AM EDT History and Physical Notes * [...] his poor pulmonary function Skin Normal Mouth [place] and moist. No c andidiasis Trachea Midline [...]
--- OUTSIDE RECORDS SUMMARY | 2025-05-17 15:20 | XMS_ITS | Encounter Summary ---
Author Organization [facility] Address [address] [place] [address] Care Team Providers Care Pizza Delivery Name Role Phone Azul Quezada NP Unavailable [phone] Kiko Zurita MD Primary Care Provider [phone] Azul Quezada NP Unavailable [phone] Reason for Referral * Consultation (Routine) - Authorized Specialty Diagnoses / Procedures Referred By Contscott t Referred To Contact Pulmonary Disease Diagnoses Centrilobular emphysema (HCC) Procedures IA OFFICE/OUTPATIENT NEW HIGH MDM 60 MINUTES Azul Quezada NP Phone: tel: fax: Jean Paul Jansen MD [facility] Referrals Only fax: Referral ID Status Reason Start Date Expiration Date Visits Requested Visits Authorized [id number] Authorized Specialty Services Required 05/17/2025 11/13/2025 1 1 Reason for Visit * Reason Comments Hospital Follow-up Encounter Details Date Type Department Care Team (Late st Contact Info) Description 05/17/2025 3:20 PM EDT Office Visit [facility] [address] [place] [address] Azul Quezada NP [address] [place] [address] Centrilobular emphysema (HCC) (Primary Dx); Tourette's ; Bilateral carotid artery stenosis; Rising PSA level; Mixed hyperlipidemia ; Depression with anxiety; Former smoker; Elevated glucose; Pain of right hip Social History Tobacco Use Types Packs/Day Years [...] 11/13/2023 How often do you attend chur or latter-day services? Never 11/13/2023 Do you belong to [...] Recorded Patient Health Questionnaire-2 Score 2 11/16/2024 [facility] - Occupational Stress [...] place to sleep or slept in a care home (including now)? No 11/13/2023 Sex and Gender Information Value Date Recorded Sex Assigned at Not on file Legal Sex Male 6:45 PM EDT Gender Identity Not on file Sexual Orientation Not on file documented as of this encounter Last Filed Vital Signs Vital Sign Reading Time Taken Comments Blood Pressure 124/76 05/17/2025 3:38 PM EDT Pulse 84 05/17/2025 3:38 PM EDT Temperature 36.6 C (97.8 F) 05/17/2025 3:38 PM EDT Respiratory Rate 24 05/17/2025 3:38 PM EDT Oxygen Saturation 94% 05/17/2025 3:38 PM EDT Inhaled Oxygen Concentration - - Weight 95.8 kg (211 lb 3.2 oz) 05/17/2025 3:38 P M EDT Height - - Body Mass Index 27.86 08/16/2024 1:20 PM EST documented in this encounter Patient Instructions * Patient Instructions* Azul Quezada NP - 05/17/2025 3:20 PM EDT Refer to dr jansen lung doctor Thuy Check xray hip documented in this encounter Progress Notes * Azul Quezada NP - 05/17/2025 5:24 PM EDTAssociated Problem(s): Pain of right hip Check xray and go from there * Rupinder Hadley MA - 05/17/2025 3:20 PM EDT Request for [facility] pulmonology 02 at 2L aat Pt uses concentrator at 2L at home Pt states that being on the 02 has not been too bad but his nose gets up Frequent right hip pain- pain scale currently at a 5 Pt states it is a tightness in the lower right side that goes down the leg but describes it as a tightness [facility] [place] * Azul Quezada NP - 05/17/2025 3:20 PM EDT Images from the original note were not included. Sam Carrasco is a 64 y.o. male presents with chief complaint of Hospital Follow-up HPI: TCM fu: COPD exacerbation Admitted to [facility], sent home atb, steroids, oxygen Is feeling better , breathing better, is on oxygen 2L Still with wheeze C/o right hip pain, no trauma, here for few months, worse if lying down, or sometimes sitting too long No NT or weakness to leg SUBJECTIVE: MEDICATIONS: Current Outpatient Medications Medication Instructions [...] solution 3 mL, 4 times daily RT losartan (COZAAR) 25 mg, Daily predniSONE (Deltasone) 10 MG tablet TAKE 1 TABLET BY MOUTH THREE TIMES DAILY FOR 4 DAYS, then TAKE 1 TABLET BY MOUTH TWICE DAILY FOR 4 DAYS, then TAKE 1 TABLET BY MOUTH DAILY FOR 4 DAYS tiotropium (Spiriva Respimat) 2.5 MCG/ACT inhaler 2 [...] dysuria and hematuria. Musculoskeletal: Positive for arthralgias. Negative for back pain. Skin: Negative for color change. Neurological: Negative [...] artery stenosis Calcified lymph nodes Centrilobular emphysema (HCC) COVID-19 07/2019 CVA (cerebral vascular accident) ([facility]) Degenerative cervical disc Depression with anxiety Insomnia Marijuana abuse 10/30/2023 Multiple pulmonary nodules Neck mass 2014 Osteoarthritis Papule of skin 11/13/2023 Pigmented skin lesion of uncertain nature Rheumatic fever Stroke ([facility]) 07/2020 Testicle lump Tourette's Vertebral artery occlusion Vocal cord polyp Past Surgical History: Procedure Laterality Date ADENOIDECTOMY CAROTID STENT Right 09/2019 stent, RT carotid CT GUIDED TRANSVAGINAL TRANSRECTAL FLUID DRAIN 06/09/2020 CT GUIDED TRANSVAGINAL TRANSRECTAL FLUID DRAIN 06/09/2020 OTHER SURGICAL HISTORY Removal of Polyp Vocal area and Vocal Cord cyst IA EXCISION THYROGLOSSAL DUCT CYST/SINUS Procedure:DL, e/o thyroglossal duct cyst;Disease:neck mass TONSILLECTOMY family history includes Asthma in his mother; Diabetes in his mother; Heart attack in his father; Hypertension in his mother. OBJECTIVE: Visit Vitals BP 124/76 (BP Location: Left arm, Patient Position: Sitting, BP Cuff Size: Adult long) Pulse 84 Temp 97.8 ??F (Temporal) Resp 24 Wt 211 lb 3.2 oz SpO2 94% BMI 27.86 kg/m?? Smoking Status Former BSA 2.22 m?? Physical Exam Vitals and nursing note reviewed. Constitutional: General: He is in acute distress. Appearance: Normal appearance. He is not ill-appearing, toxic-appearing or diaphoretic. HENT: Head: Normocephalic. Right Ear: External ear normal. Left Ear: External ear normal. Nose: Nose normal. Mouth/Throat: Mouth: Mucous membranes are moist. Pharynx: Oropharynx is clear. Eyes: Extraocular Movements: Extraocular movements intact. Conjunctiva/sclera: Conjunctivae normal. Neck: Vascular: No carotid bruit. Cardiovascular: Rate and Rhythm: Normal rate and regular rhythm. Pulses: Normal pulses. Heart sounds: Normal heart sounds. No murmur heard. Pulmonary: Effort: Pulmonary effort is normal. Breath sounds: Wheezing (exp) present. Abdominal: General: Bowel sounds are normal. Palpations: Abdomen is soft. Musculoskeletal: Cervical back: Neck supple. Right lower leg: No edema. Left lower leg: No edema. Comments: No point tenderness to hip near full internal/external rotation bilat -SLR x2, DTR's 2+ bilat patellar/achilles, MMT 5/5 bilat LE Neg ARTIS test, mild tenderness to left lower lumbar Skin: General: Skin is warm and dry. Capillary Refill: Capillary refill takes 2 to 3 seconds. Neurological: General: No focal deficit present. Mental Status: He is alert. Psychiatric: Mood and Affect: Mood normal. Behavior: Behavior normal. Thought Content: Thought content normal. Judgment: Judgment normal. ASSESSMENT AND PLAN: No follow-ups on file. 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, now needs a new lead teller and needs a referral to [facility] Chest CT 09/14 new lung masses Current meds: albuterol, Ensifentrine, symbicort, spiriva respimat Relevant Orders Ambulatory referral to Pulmonology Bilateral carotid artery stenosis Cont with vascular Asa, statin therapy Depression with anxiety Current med: fluoxetine Relevant Orders TSH Rising PSA level Relevant Orders PSA, total and free Former smoker Relevant Orders Urinalysis with reflex microscopic (clean catch) Elevated glucose Relevant Orders Comprehensive metabolic panel Hemoglobin A1c Pain of right hip Check xray and go from there Relevant Orders XR hip right 2 or 3 views * Azul Quezada NP - 05/17/2025 6:56 AM EDTAssociated Problem(s): Depression with anxiety Current med: fluoxetine * Azul Quezada NP - 05/17/2025 6:54 AM EDTAssociated Problem(s): Bilateral carotid artery stenosis Cont with vascular Asa, statin therapy * Azul Quezada NP - 05/17/2025 6:54 AM EDTAssociated Problem(s): Centrilobular emphysema (HCC) Was established detention with dr tim, now needs a new lead teller and needs a referral to [facility] Chest CT 09/14 new lung masses Current meds: albuterol, Ensifentrine, symbicort, spiriva respimat * Azul Quezada NP - 05/17/2025 6:52 AM EDTAssociated Problem(s): Tourette's No current med use for this documented in this encounter Plan of Treatment Scheduled Orders Name Type Priority Associated Diagnoses Orde r Schedule PSA, total and free Lab Routine Rising PSA level Expected: 05/17/2025 (Approximate), Expires: 05/17/2026 Lipid panel Lab Routine Mixed hyperlipidemia Expected: 05/17/2025 (Approximate), Expires: 05/17/2026 Comprehensive metabolic panel Lab Routine Mixed hyperlipidemia Elevated glucose Expected: 05/17/2025 (Approximate), Expires: 05/17/2026 Hemoglobin A1c Lab Routine Elevated glucose Expected: 05/17/2025 (Approximate), Expires: 05/17/2026 Urinalysis with reflex microscopic (clean catch) Lab Routine Former smoker Expected: 05/17/2025 (Approximate), Expires: 05/17/2026 TSH Lab Routine Depression with anxiety Expected: 05/17/2025 (Approximate), Expires: 05/17/2026 XR hip right 2 or 3 views Imaging Routine Pain of right hip Expected: 05/17/2025, Expires: 05/17/2026 Scheduled Referrals Name Type Priority Associated Diagnoses Order Schedule Ambulatory referral to Pulmonology Outpatient Referral Routine Centrilobular emphysema (HCC) Expected: 05/17/2025 (Approximate), Expires: 11/17/2025 documented as of this encounter Visit Diagnoses Diagnosis Centrilobular emphysema (HCC)- Primary Tourette's Tourette's disorder Bilateral carotid artery stenosis Occlusion and stenosis of carotid artery without mention of cerebral infarction Rising PSA level Mixed hyperlipidemia Mixed hyperlipidemia Depression with anxiety Dysthymic disorder Former smoker Personal history of tobacco use, presenting hazards to health Elevated glucose Other abnormal glucose Pain of right hip documented in this encounter Additional Health Concerns Assessment Noted Time PHQ-9 Depression Total Score: 11 025 2:00 PM EST documented as of this encounter Care Teams Pizza Delivery Relationship Specialty Start Date End Date Kiko Zurita MD PCP - General Family Medicine 10/24/23 Azul Quezada NP [address] [place] [address] PCP - ACO Reach 10/29/24 Azul Quezada NP Referring Physician Nurse Practitioner 04/07/23 documented as of this encounter
--- OUTSIDE RECORDS SUMMARY | 2025-05-26 11:47 | XMS_ITS ---
Author Organization [facility] Address [address] [place] [address] Care Team Providers Care Financial Systems Administrator Name Role Phone Azul Quezada NP Unavailable [phone] Kiko Zurita MD Primary Care Provider [phone] Azul Quezada LAY OUT TECHNICIAN Unavailable [phone] Inpatient Discharge Transitional Care Management (TCM) Status:Closed (Closed) Start date:05/11/2025 Enrollment date:05/12/2025 Enrollment reason:Identified using hospital discharge data End date:05/13/2025 Close reason:Unable to reach patient Overview Patient discharged from [facility] on 05/11. Please contact for hospital KEVAN and schedule follow-up appointment within 7-14 days. Continued Care and Services Coordination
--- OUTSIDE RECORDS SUMMARY | 2025-05-26 11:47 | XMS_ITS | Encounter Summary ---
Author Organization [facility] Address [address] [facility] [place] [address] Care Team Providers Care Consultant Dietitian Name Role Phone Azul Quezada COLLAR BAND CREASER Unavailable [phone] Kiko Zurita MD Primary Care Provider [phone] Azul Quezada COLLAR BAND CREASER Unavailable [phone] Encounter Details Date Type Department Care Team (Late st Contact Info) Description 03/16/2025 Abstract [facility] [address] [place] [address] Azul Quezada NP [address] [place] [address] Social History Tobacco Use Types Packs/Day Years [...] often do you attend chur ch or buddhism services? Never 11/13/2023 Do you belong to any clubs o r organizations such as episcopal groups, unions, fraternal or athletic groups, or [...] Recorded Patient Health Questionnaire-2 Score 2 11/16/2024 [facility] Answer Date [...] as of this encounter Plan of Treatment Not on file documented as of this encounter Visit Diagnoses Not on filedocumented in this encounter Additional Health Concerns Assessment Noted Time PHQ-9 Depression Total Score: 11 025 2:00 PM EST documented as of this encounter Care Teams Consultant Dietitian Relationship Specialty Start Date End Date Kiko Zurita MD PCP - General Family Medicine 10/24/23 Azul Quezada NP [address] [place] [address] PCP - ACO Reach 10/29/24 Azul Quezada NP Referring Physician Nurse Practitioner 04/07/23 documented as of this encounter
--- OUTSIDE RECORDS SUMMARY | 2025-05-26 11:47 | XMS_ITS | Encounter Summary ---
Author Organization [facility] Address [address] [place] [address] Care Team Providers Care Oven Tender Name Role Phone Azul Quezada DIE CASTER Unavailable [phone] Kiko Zurita MD Primary Care Provider [phone] Azul Quezada DIE CASTER Unavailable [phone] Encounter Details Date Type Department Care Team (Late st Contact Info) Description 05/10/2025 Abstract [facility] [address] [place] [address] Azul Quezada NP [address] [place] [address] Social History Tobacco Use Types Packs/Day Years [...] often do you attend chur ch or hinduism services? Never 11/13/2023 Do you belong to any clubs o r organizations such as orthodox groups, unions, fraternal or athletic groups, or [...] Score 2 11/16/2024 [facility] Questionnaire Answer Date [...] place to sleep or slept in a group home (including now)? No 11/13/2023 Sex and [...] documented as of this encounter Care Teams Oven Tender Relationship Specialty Start Date End Date Kiko Zurita MD PCP - General Family Medicine 10/24/23 Azul Quezada NP [address] [place] [address] PCP - ACO Reach 10/29/24 Azul Quezada NP Referring Physician Nurse Practitioner 04/07/23 documented as of this encounter
--- OUTSIDE RECORDS SUMMARY | 2025-05-26 11:47 | XMS_ITS | Encounter Summary ---
Author Organization [facility] Address [address] [facility] [place] [address] Care Team Providers Care Belling Machine Operator Name Role Phone Azul Quezada ACTUARIAL DIRECTOR Unavailable [phone] Kiko Zurita MD Primary Care Provider [phone] Azul Quezada ACTUARIAL DIRECTOR Unavailable [phone] Encounter Details Date Type Department Care Team (Late st Contact Info) Description 08/23/2024 Abstract [facility] [address] [place] [address] Azul Quezada NP [address] [place] [address] Social History Tobacco Use Types Packs/Day Years [...] often do you attend chur ch or caodaism services? Never 11/13/2023 Do you belong to [...] Patient Health Questionnaire-2 Score 0 02/18/2024 [facility] Questionnaire Answer Date [...] on filedocumented in this encounter Care Teams Belling Machine Operator Relationship Specialty Start Date End Date Kiko Zurita MD PCP - General Family Medicine 10/24/23 Azul Quezada NP [address] [place] [address] PCP - ACO Reach 10/29/24 Azul Quezada NP Referring Physician Nurse Practitioner 04/07/23 documented as of this encounter
--- OUTSIDE RECORDS SUMMARY | 2025-05-26 11:47 | XMS_ITS | Clinical Summary ---
Author Organization [facility] Address [id number] [address] [place] [address] Care Team Providers Care Production Intern Name Role Phone Azul Quezada APRN-TRADING ASSISTANT Primary Care Provider Allergies Active Allergy Reactions [...] often do you attend chur ch or christianity services? Never 06/10/2020 Do you belong to any clubs o r organizations such as protestant groups, unions, fraternal or athletic groups, or [...] Answer Date Recorded Total Score 0 02/07/2022 [facility] [place] of Occupat ional Health - Occupational Stress [...] family support. Medical Devices Implanted Type Area Furniture Dipper Device Identifier Shelf Expiration Date Model / Serial / Lot Stnt Vsc 8/6mm 6fr 30mm 135cm - [id number] Implanted:Qty: 1 on 06/12/2020 by Andrew Terrell MD at [facility] Stent Right: Carotid [employer] [facility] 11/19/2022 [id number] / / [id number] Insurance MEDICAID [place] MEDICARE Care Teams Production Intern Relationship Specialty Start Date End Date Azul Quezada APRN-TRADING ASSISTANT PCP - General Nurse Practitioner 08/30/19
--- OUTSIDE RECORDS SUMMARY | 2025-05-26 11:47 | XMS_ITS | Encounter Summary ---
Author Organization [facility] Address [address] [place] [address] Care Team Providers Care Auto Polisher Name Role Phone Azul Quezada KISS MIXER Unavailable [phone] Kiko Zurita MD Primary Care Provider [phone] Azul Quezada KISS MIXER Unavailable [phone] Encounter Details Date Type Department Care [...] often do you attend chur ch or jew services? Never 11/13/2023 Do you belong to any clubs o r organizations such as christian groups, unions, fraternal or athletic groups, or [...] Recorded Patient Health Questionnaire-2 Score 0 02/18/2024 [facility] of Occupat ional Health - Occupational Stress [...] on file documented as of this encounter Procedures Procedure Name Priority Date/Time Associated Diagnosis Comments CT LUNG SCREENING LOW DOSE 09/08/2024 5:49 AM EST documented in this encounter Results * CT LUNG SCREENING LOW DOSE (09/08/2024 5:49 AM EST) Anatomical Region Laterality Modality Other 09/08/2024 5:49 AM EST Narrative 09/08/2024 5:51 [place] [address] CT Scan Report Signed Patient: SAM KRAMER MR#: [id number] : 1960 Acct:[id number] Age/Sex: 64 / M ADM Date: 09/06/24 Loc: CT Attending Dr: Jameson White D.O. Ordering Physician: Jameson White D.O. Date of Service: 09/06/24 Procedure(s): CT lung screening low-dose Accession Number(s): [id number] cc: Azul Quezada NP [address] [address] Patient Name: SAM KRAMER MRN: [id number] date: 1960 Sex: M Assigned Patient Location: CT Current Patient Location: Accession/Order Number: [id number] Exam Date: 09/06/2024 14:22 Report Date: 09/08/2024 [...] Signed By: 09/08/24 0551 DD/ 0549 TD/TT: Collar Stitcher: Procedure Note Radiology, Radiologist, - 09/08/[address] [address] [address] Scan Report Signed Patient: ASM KRAMER KMR#: [id number] : 1960Acct:[id number] Age/Sex: 64 / MADM Date: 09/06/24 Loc: CT Attending Dr: Jameson White D.O. Ordering Physician: Jameson White D.O. Date of Service: 09/06/24 Procedure(s): CT lung screening low-dose Accession Number(s): [id number] cc: Azul Quezada NP [address] [address] Patient Name: SAM KRAMER MRN: [id number] date: 1960 Sex: M Assigned Patient Location: CT Current Patient Location: Accession/Order Number: [id number] Exam Date: 09/06/2024 14:22 Report Date: 09/08/2024 [...] M.D. Signed By:09/08/24 0551 DD/ 0549 TD/TT: Collar Stitcher: Generic External Data Provider [facility] Final Result documented in this encounter Visit Diagnoses Not on filedocumented in this encounter Care Teams Auto Polisher Relationship Specialty Start Date End Date Kiko Zurita MD PCP - General Family Medicine 10/24/23 Azul Quezada NP [address] [place] [address] PCP - ACO Reach 10/29/24 Azul Quezada NP Referring Physician Nurse Practitioner 04/07/23 documented as of this encounter
--- OUTSIDE RECORDS SUMMARY | 2025-05-26 11:47 | XMS_ITS | Encounter Summary ---
Author Organization [facility] Address [address] [facility] [place] [address] Care Team Providers Care Small Appliance Assembly Supervisor Name Role Phone Azul Quezada CLINICAL APPLICATION SPECIALIST Unavailable [phone] Kiko Zurita MD Primary Care Provider [phone] Azul Quezada CLINICAL APPLICATION SPECIALIST Unavailable [phone] Encounter Details Date Type Department Care Team (Late st Contact Info) Description 09/27/2024 [facility] [address] [facility] [place] [address] Baltazar Gil MD [address] [facility] Social History Tobacco Use Types Packs/Day Years [...] often do you attend chur ch or anabaptist services? Never 11/13/2023 Do you belong to any clubs o r organizations such as adventist groups, unions, fraternal or athletic groups, or [...] Recorded Patient Health Questionnaire-2 Score 0 02/18/2024 [facility]ational Stress Questionnaire Answer Date [...] place to sleep or slept in a fci (including now)? No 11/13/2023 Sex and Gender [...] on filedocumented in this encounter Care Teams Small Appliance Assembly Supervisor Relationship Specialty Start Date End Date Kiko Zurita MD PCP - General Family Medicine 10/24/23 Azul Quezada NP [address] [place] [address] PCP - ACO Reach 10/29/24 Azul Quezada NP Referring Physician Nurse Practitioner 04/07/23 documented as of this encounter
--- OUTSIDE RECORDS SUMMARY | 2025-05-26 11:48 | XMS_ITS | Clinical Summary ---
Author Organization [facility] Address [address] [place] [address] Care Team Providers Care Door Closer Name Role Phone Azul Quezada BARBERING INSTRUCTOR Unavailable [phone] Kiko Zurita MD Primary Care Provider [phone] Azul Quezada BARBERING INSTRUCTOR Unavailable [phone] Allergies Active Allergy Reactions Criticality Noted [...] for shortness of breath or wheezing 09/27/19 25 Active atorvastatin (Lipitor) 40 MG tabletIndications: Mixed hyperlipidemia Take 1 tablet (40 mg) by mouth in the evening 90 tablet 1 12/28/19 25 Active FLUoxetine (PROzac) 20 MG capsuleIndications :Depression with anxiety Take 1 capsule (20 mg) by mouth Daily 90 capsule 1 02/16/20 25 Active traZODone (Desyrel) 50 MG tabletIndications: Insomnia, unspecified Take 1 tablet (50 mg) by mouth at bedtime 90 tablet 1 02/16/20 25 Active losartan (Cozaar) 25 MG tablet Take 25 mg by mouth Daily 05/11/20 Active predniSONE (Deltasone) 10 MG tablet TAKE 1 TABLET BY MOUTH THREE TIMES DAILY FOR 4 DAYS, then TAKE 1 TABLET BY MOUTH TWICE DAILY FOR 4 DAYS, then TAKE 1 TABLET BY MOUTH DAILY FOR 4 DAYS 05/11/20 Active Active Problems Problem Noted Date Diagnosed Date Elevated glucose 05/17/2025 Pain of right hip 05/17/2025 Assessment & Plan (05/17/2025 5:24 PM EDT): Check xray and go from there 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 current use of inhaled steroid 025 COPD with acute exacerbation 11/16/2024 Assessment & [...] (BMI 25.0-29.9) 12/15/2023 Encounter for subsequent [facility] wellness visit (AWV) in Medicare patient [...] 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 Tourette's 10/30/2023 Assessment & Plan (05/17/2025 6:52 AM EDT): No current med use for this Insomnia 10/30/2023 Assessment & Plan (08/16/2024 7:22 AM EST): Continue with trazodone Multiple pulmonary nodules 10/30/2023 Centrilobular emphysema 10/30/2023 Assessment & Plan (05/17/2025 6:54 AM EDT): Was established [facility] with dr tim, 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 and needs a referral to [facility] Chest CT 09/14 new lung masses Current meds: albuterol, Ensifentrine, symbicort, spiriva respimat Assessment & Plan (02/15/2025 2:27 PM EDT): [...] have asked the pt to contact his electrical manager for management of this exacerbation He states [...] Plan (10/30/2023 11:05 AM EST): Continue with Rajeev, as well as current inhalers Vertebral artery occlusion 10/30/2023 Bilateral carotid artery stenosis 10/30/2023 Assessment & Plan (05/17/2025 6:54 AM EDT): Cont with vascular Asa, statin therapy Assessment & Plan (11/16/2024 7:06 AM EST): [...] Depression with anxiety 10/30/2023 Assessment & Plan (05/17/2025 6:56 AM EDT): Current med: fluoxetine Assessment & Plan (02/15/2025 7:19 AM EDT): [...] of the risks of continued smoking: stroke, VA, all forms of cancer, lung disease, and . Options for quitting smoking include: cold turkey, hypnosis, acupuncture, nicotine replacement meds (gum, lozenges, and patches), Buproprion, and Varenicline. At this time pt is encouraged to evaluate their goals for wanting to quit smoking, and reach out to provider when ready to start this process Encounters Date Type Department Care Team Description 05/17/2025 3:20 PM EDT [facility] [address] [place] [address] Azul Quezada, ORACIO Centrilobular emphysema (HCC) (Primary Dx); Tourette's ; Bilateral carotid artery stenosis; Rising PSA level; Mixed hyperlipidemia ; Depression with anxiety; Former smoker; Elevated glucose; Pain of right hip 05/17/2025 [facility] [address] [place] [address] Azul Quezada, ORACIO 05/13/2025 Patient Outreach [facility] [address] [place] [address] Angy Samayoa LPN 05/11/2025 Abstract [facility] [address] [place] [address] Azul Quezada NP 05/10/2025 Abstract [facility] [address] [place] [address] Azul Quezada, ORACIO 03/17/2025 Patient Outreach [facility] [place] [address] [place] [address] Shazia Coffman LSW 03/16/2025 Abstract [facility] [address] [place] [address] Azul Quezada, ORACIO 03/16/2025 Orders Only [facility] [address] [place] [address] Herminio Hamlin MD from Last 3 Months Immunizations Immunization Administration [...] How often do you attend chur or cheondoism services? Never 11/13/2023 Do you belong to any clubs o r organizations such as uatsdin groups, unions, fraternal or athletic groups, or [...] Recorded Patient Health Questionnaire-2 Score 2 11/16/2024 [facility] of Occupat ional Health - [...] place to sleep or slept in a alf (including now)? No 11/13/2023 Sex and Gender [...] oz) 05/17/2025 3:38 P M EDT Height 185.4 cm (6' 1 ) 08/16/2024 1:20 PM EST Body Mass Index 27.86 08/16/2024 1:20 PM EST Plan of Treatment Health Maintenance Due Date Last Done Comments CT Colonography 1960 FIT-DNA 1960 FIT 1960 FOBT 1960 Lung Cancer Screening Shared Decision Making 1960 Sigmoidoscopy 1960 Pneumococcal Vaccine: 65+ Ye ars (1 of 2 - PCV) 1979 Influenza Vaccine (#1) 2025 , 2020, 08/04/2019, [...] Last 3 Months Insurance MEDICARE Care Teams Door Closer Relationship Specialty Start Date End Date Kiko Zurita MD PCP - General Family Medicine 10/24/23 Azul Quezada NP [address] [place] [address] PCP - ACO Reach 10/29/24 Azul Quezada NP Referring Physician Nurse Practitioner 04/07/23
--- OUTSIDE RECORDS SUMMARY | 2025-05-26 11:48 | XMS_ITS | Encounter Summary ---
Author Organization [facility] Address [address] [place] [address] Care Team Providers Care Administration Dean Name Role Phone Azul Quezada SOFTWARE CONSULTANT Unavailable [phone] Kiko Zurita MD Primary Care Provider [phone] Azul Quezada SOFTWARE CONSULTANT Unavailable [phone] Encounter Details Date Type Department Care Team (Late st Contact Info) Description 12/08/2023 [facility] [address] [place] [address] Herminio Hamlin MD [address] [place], [place] [address] Social History Tobacco Use Types Packs/Day Years [...] often do you attend chur ch or orthodox services? Never 11/13/2023 Do you belong to any clubs o r organizations such as oriental orthodox groups, unions, fraternal or athletic groups, [...] Recorded Patient Health Questionnaire-2 Score 2 10/30/2023 [facility] of Occupat ional [facility] - Occupational Stress Questionnaire Answer Date [...] place to sleep or slept in a nursing home (including now)? No 11/13/2023 Sex and [...] on filedocumented in this encounter Care Teams Administration Dean Relationship Specialty Start Date End Date Kiko Zurita MD PCP - General Family Medicine 10/24/23 Azul Quezada NP [address] [facility] [place] [address] PCP - ACO Reach 10/29/24 Azul Quezada NP Referring Physician Nurse Practitioner 04/07/23 documented as of this encounter
--- OUTSIDE RECORDS SUMMARY | 2025-05-26 11:48 | XMS_ITS | Encounter Summary ---
Author Organization [facility] Address [address] [facility] [place] [address] Care Team Providers Care Production Control Supervisor Name Role Phone Azul Quezada TUBE BALANCER Unavailable [phone] Kiko Zurita MD Primary Care Provider [phone] Azul Quezada TUBE BALANCER Unavailable [phone] Encounter Details Date Type Department Care Team (Late st Contact Info) Description 05/17/2025 Bamboo flowsheet [facility] [address] [place] [address] Azul Quezada NP [address] [place] [address] Social History Tobacco Use Types Packs/Day Years [...] any clubs o r organizations such as latter-day groups, unions, fraternal or athletic groups, or [...] Recorded Patient Health Questionnaire-2 Score 2 11/16/2024 [facility] Questionnaire Answer Date [...] documented as of this encounter Care Teams Production Control Supervisor Relationship Specialty Start Date End Date Kiko Zurita MD PCP - General Family Medicine 10/24/23 Azul Quezada NP [address] [place] [address] PCP - ACO Reach 10/29/24 Azul Quezada NP Referring Physician Nurse Practitioner 04/07/23 documented as of this encounter
--- OUTSIDE RECORDS SUMMARY | 2025-05-26 11:48 | XMS_ITS | Encounter Summary ---
Author Organization [facility] Address [address] [facility] [place] [address] Care Team Providers Care Cost Specialist Name Role Phone Azul Quezada WATCH HAIRSPRING ASSEMBLER Unavailable [phone] Kiko Zurita MD Primary Care Provider [phone] Azul Quezada WATCH HAIRSPRING ASSEMBLER Unavailable [phone] Encounter Details Date Type Department Care Team (Late st Contact Info) Description 10/28/2023 Abstract [facility] [address] [place] [address] Azul Quezada NP [address] [place] [address] Social History Tobacco Use Types Packs/Day Years [...] doing things Several days 10/30/2023 10:09 AM Rupinder Parry MA Feeling down, depressed, or hopeless Several days 10/30/2023 10:09 AM Benton Parry MA Patient Health Questionnaire-2 Score 2 10/30/2023 10:09 AM Elena Parry MA * If you checked off any problems on this questionnaire so far, Question Answer Date of Assessment Author How difficult have these problems made it for you to do your work, take care of things at home, or get along with other people? Not difficult at all 10/30/2023 10:09 AM Annetta Parry MA documented as of this encounter Plan of Treatment Not on file documented as of this encounter Visit Diagnoses Not on filedocumented in this encounter Care Teams Cost Specialist Relationship Specialty Start Date End Date Kiko Zurita MD PCP - General Family Medicine 10/24/23 Azul Quezada NP [address] [place] [address] PCP - ACO Reach 10/29/24 Azul Quezada NP Referring Physician Nurse Practitioner 04/07/23 documented as of this encounter
--- OUTSIDE RECORDS SUMMARY | 2025-05-26 11:48 | XMS_ITS | Encounter Summary ---
Author Organization [facility] Address [address] [place] [address] Care Team Providers Care Senior Analyst Developer Name Role Phone Azul Quezada ONLINE CONTENT DEVELOPER Unavailable [phone] Kiko Zurita MD Primary Care Provider [phone] Azul Quezada ONLINE CONTENT DEVELOPER Unavailable [phone] Encounter Details Date Type Department Care Team (Late st Contact Info) Description 05/13/2025 Patient Outreach [facility] [address] [place] [address] Angy Samayoa LPN Social History Tobacco Use Types Packs/Day Years [...] any clubs o r organizations such as taoist groups, unions, fraternal or athletic groups, or [...] Recorded Patient Health Questionnaire-2 Score 2 11/16/2024 [facility] - Occupational Stress Questionnaire Answer Date [...] place to sleep or slept in a halfway (including now)? No 11/13/2023 Sex and Gender Information Value Date Recorded Sex Assigned at Not on file Legal Sex Male 6:45 PM EDT Gender Identity Not on file Sexual Orientation Not on file documented as of this encounter Progress Notes * Angy Samayoa LPN - 05/13/2025 9:19 AM EDT Flowsheet Row Patient Outreach from 05/13/2025 in [facility] with Angy Samayoa LPN Hospital Information ED, Hospital or [facility] Facility Discharge? Hospital Patient has been contacted within two business days of discharge No Have two attempts been made to contact the patient within two business days of being discharged? Yes Diagnosis acute exacerbation of COPD, acute bronchitis, acute hypoxic respiratory failure Discharge Date 05/11/25 Discharged To: Home Setting Discharge Hospital [facility] Engagement Admission Date 05/09/25 Medications Appointments Self Management Patient Teaching Wrap Up KEVAN incomplete at this time due to unable to reach pt and no return call. documented in this encounter Plan of Treatment Not on file documented as of this encounter Visit Diagnoses Diagnosis Acute exacerbation of chronic obstructive pulmonary disease (COPD) (HCC)- Primary Obstructive chronic bronchitis with exacerbation Acute bronchiolitis due to unspecified organism documented in this encounter Additional Health Concerns Assessment Noted Time PHQ-9 Depression Total Score: 11 11/16/ 025 2:00 PM EST documented as of this encounter Care Teams Senior Analyst Developer Relationship Specialty Start Date End Date Kiko Zurita MD PCP - General Family Medicine 10/24/23 Azul Quezada NP [address] [place] [address] PCP - ACO Reach 10/29/24 Azul Quezada NP Referring Physician Nurse Practitioner 04/07/23 documented as of this encounter
--- OUTSIDE RECORDS SUMMARY | 2025-05-26 11:48 | XMS_ITS | Encounter Summary ---
Author Organization [facility] Address [address] [place] [address] Care Team Providers Care Sleeve Presser Operator Name Role Phone Kiko Zurita MD Primary Care Provider [phone] Azul Quezada 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 [employer]CHO[employer]S Unavailable [phone] Kiko Zurita MD Primary Care Provider [phone] Azul Quezada 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 [employer]CHO[employer]S Unavailable [phone] Encounter Details Date Type Department Care Team (Late st Contact Info) Description 09/25/2023 Orders Only [facility] [address] [place] [address] Azul Quezada NP [address] [place] [address] Social History Tobacco Use Types Packs/Day Years [...] on filedocumented in this encounter Care Teams Sleeve Presser Operator Relationship Specialty Start Date End Date Kiko Zurita MD PCP - General Family Medicine 04/07/23 10/23/23 Kiko Zurita MD PCP - General Family Medicine 10/24/23 Azul Quezada NP [address] [place] [address] PCP - ACO Reach 10/29/24 Azul Quezada NP Referring Physician Nurse Practitioner 04/07/23 documented as of this encounter
--- OUTSIDE RECORDS SUMMARY | 2025-05-26 11:48 | XMS_ITS | Encounter Summary ---
Author Organization [facility] Address [address] [facility] [place] [address] Care Team Providers Care Cold Strip Roller Name Role Phone Azul Quezada WELLNESS MANAGER Unavailable [phone] Kiko Zurita MD Primary Care Provider [phone] Azul Quezada WELLNESS MANAGER Unavailable [phone] Encounter Details Date Type Department Care Team (Late st Contact Info) Description 12/01/2023 [facility] [address] [place] [address] Azul Quezada NP [address] [place] [address] Social History Tobacco Use Types Packs/Day Years [...] often do you attend chur ch or mormonism services? Never 11/13/2023 Do you belong to any clubs o r organizations such as samaritan groups, unions, fraternal or athletic groups, or [...] Health Questionnaire-2 Score 2 10/30/2023 [facility] Answer Date [...] (11/30/2023 10:55 AM EDT) us Azul Quezada NP IN CLINIC/BEDSIDE ORDERABLES Fi nal Result documented in this encounter Visit Diagnoses Not on filedocumented in this encounter Care Teams Cold Strip Roller Relationship Specialty Start Date End Date Kiko Zurita MD PCP - General Family Medicine 10/24/23 Azul Quezada NP [address] [place] [address] PCP - ACO Reach 10/29/24 Azul Quezada NP Referring Physician Nurse Practitioner 04/07/23 documented as of this encounter
--- OUTSIDE RECORDS SUMMARY | 2025-05-26 11:48 | XMS_ITS | Encounter Summary ---
Author Organization [facility] Address [address] [facility] [place] [address] Care Team Providers Care Eligibility Worker Name Role Phone Azul Quezada LIVE AMMUNITION INSPECTOR Unavailable [phone] Kiko Zurita MD Primary Care Provider [phone] Azul Quezada LIVE AMMUNITION INSPECTOR Unavailable [phone] Encounter Details Date Type Department Care Team (Late st Contact Info) Description 11/24/2023 [facility] [address] [facility] [place] [address] Azul Quezada NP [address] [facility] [place] [address] Social History Tobacco Use Types Packs/Day Years [...] often do you attend chur ch or catholic services? Never 11/13/2023 Do you belong to any clubs o r organizations such as anglican groups, unions, fraternal or athletic groups, or [...] Recorded Patient Health Questionnaire-2 Score 2 10/30/2023 [facility] Questionnaire Answer Date [...] on filedocumented in this encounter Care Teams Eligibility Worker Relationship Specialty Start Date End Date Kiko Zurita MD PCP - General Family Medicine 10/24/23 Azul Quezada NP [address] [place] [address] PCP - ACO Reach 10/29/24 Azul Quezada NP Referring Physician Nurse Practitioner 04/07/23 documented as of this encounter
--- OUTSIDE RECORDS SUMMARY | 2025-05-26 11:48 | XMS_ITS | Encounter Summary ---
Author Organization [facility] Address [address] [facility] [place] [address] Care Team Providers Care Source Water Protection Specialist Name Role Phone Azul Quezada TEACHER LIP READING Unavailable [phone] Kiko Zurita MD Primary Care Provider [phone] Azul Quezada TEACHER LIP READING Unavailable [phone] Encounter Details Date Type Department Care Team (Late st Contact Info) Description 05/11/2025 Abstract [facility] [address] [facility] [place] [address] Azul Quezada NP [address] [place] [address] Social History Tobacco Use Types Packs/Day Years [...] any clubs o r organizations such as spiritism groups, unions, fraternal or athletic groups, or [...] Recorded Patient Health Questionnaire-2 Score 2 11/16/2024 [facility]ational [...] documented as of this encounter Care Teams Source Water Protection Specialist Relationship Specialty Start Date End Date Kiko Zurita MD PCP - General Family Medicine 10/24/23 Azul Quezada NP [address] [place] [address] PCP - ACO Reach 10/29/24 Azul Quezada NP Referring Physician Nurse Practitioner 04/07/23 documented as of this encounter
--- OUTSIDE RECORDS SUMMARY | 2025-05-26 11:48 | XMS_ITS | Encounter Summary ---
Author Organization [facility] Address [address] [place] [address] Care Team Providers Care Rail Car Operator Name Role Phone Kiko Zurita MD Primary Care Provider [phone] Azul Quezada OPTICAL GLASS INSPECTOR Unavailable [phone] Kiko Zurita MD Primary Care Provider [phone] Azul Quezada OPTICAL GLASS INSPECTOR Unavailable [phone] Encounter Details Date Type Department Care Team (Late st Contact Info) Description 10/08/2023 Orders Only [facility] [address] [place] [address] Herminio Hamlin MD [address] [place] [address] Social History Tobacco Use Types Packs/Day Years [...] on filedocumented in this encounter Care Teams Rail Car Operator Relationship Specialty Start Date End Date Kiko Zurita MD PCP - General Family Medicine 04/07/23 10/23/23 Kiko Zurita MD PCP - General Family Medicine 10/24/23 Azul Quezada NP [address] [place] [address] PCP - ACO Reach 10/29/24 Azul Quezada NP Referring Physician Nurse Practitioner 04/07/23 documented as of this encounter
--- OUTSIDE RECORDS SUMMARY | 2025-05-26 11:48 | XMS_ITS | Patient Health Record ---
Author Organization 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 Ordering Physician: Jameson White D.O. Date of Service: 09/06/24 Procedure(s): CT lung screening low-dose Accession Number(s): [id number] cc: Azul Quezada NP [place] [address] Patient Name: SAM KRAMER MRN: [id number] date: 1960 Sex: M Assigned Patient Location: CT Current Patient Location: Accession/Order Number: [id number] Exam Date: 09/06/2024 14:22 Report Date: 09/08/2024 [...] Signed By: 09/08/24 0551 DD/ 0549 TD/TT: Equipment Validation Specialist: [place] [address] CT Scan Report Signed Patient: MATTY KRAMER MR#: [id number] : 1960 Acct:[id number] Age/Sex: 64 / M ADM Date: 09/06/24 Loc: CT Attending Dr: Jameson White D.O. Ordering Physician: Jameson White D.O. Date of Service: 09/06/24 Procedure(s): CT kiran g screening low-dose Accession Number(s): [id number] cc: Azul Quezada NP [place] [address] Patient Name: SAM KRAMER MRN: [id number] date: 1960 Sex: M Assigned Patient Location: CT Current Patient Location: Accession/Order Numb er: [id number] Exam Date: 14:22 Report Date: 09/08/2024 05:49 [...] Signed By: 09/08/24 0551 DD/ 0549 TD/TT: Equipment Validation Specialist: HEMOGLOBIN Reviewed date:10/26/2024 07:27:51 AM Interpretation: Performing Lab: Notes/Report: [facility] , Hemoglobin 14.8 14.0-18.0 g/dL Performing Lab: see note ML - [facility] LB CT Chest w/o contrast Reviewed date:12/07/2024 01:48:27 PM Interpretation: Performing Lab: Notes/Report: CBC AUTO DIFF Reviewed date:07/06/2024 03:15:51 PM Interpretation: Performing Lab: Notes/Report: [facility] , White Blood Count 8.7 4.0-11.0 [...] 3/uL Performing Lab: see note ML - [facility] CT Chest Low Dose for Screen ing* Reviewed date:09/08/2024 07:34:23 AM Interpretation: Performing Lab: Notes/Report: CT chest wo con Reviewed date:12/07/2024 02:32:11 PM Interpretation: Performing Lab: Notes/Report: Source Facility: [place] [address] CT Scan Report Signed Patient: SAM KRAMER MR#: [id number] : 1960 Acct:[id number] Age/Sex: 64 / M ADM Date: 12/07/24 Loc: CT Attending Dr: Jameson White D.O. Ordering Physician: Jameson White D.O. Date of Service: 12/07/24 Procedure(s): CT chest wo con Accession Number(s): [id number] cc: Azul Quezada NP [place] [address] Patient Name: SAM KRAMER MRN: [facility]:[id number] date: 1960 Sex: M Assigned Patient Location: CT Current Patient Location: CT Accession/Order Number: [id number] Exam Date: 12/07/2024 13:12 Report Date: 12/07/2024 [...] Marsh Jr., D.O.12/07/2024 1:15 PM Dictation Location: [place] [address] Electronically authenticated by: [id number] Y Date: 12/07/2024 13:15 Dictated By: Grupo Marsh M.D. Signed By: 12/07/241317 DD/ 14 TD/TT: Equipment Validation Specialist: [place] [address] CT Scan Report Signed Patient: MATTY KRAMER MR#: [id number] : 1960 Acct:[id number] Age/Sex: 64 / M ADM Date: 12/07/24 Loc: CT Attending Dr: Jameson White D.O. Ordering Physician: Jameson White D.O. Date of Service: 12/07/24 Procedure(s): CT marco st wo con Accession Number(s): [id number] cc: Azul Quezada NP [place] [address] Patient Name: SAM KRAMER MRN: [id number] date: 1960 Sex: M Assigned Patient Location: CT Current Patient Location: CT Accession/Order Numb er: [id number] Exam Date: 12/07/2024 13:12 Report Date: 12/07/2024 [...] Marsh Jr., D.O.12/07/2024 1:15 PM Dictation Location: [place] [address] Electronically authenticated by: [id number] Y Date: 12/07/2024 13:15 Dictated By: Grupo Marsh M.D. Signed By: 12/07/241317 DD/ 14 TD/TT: Equipment Validation Specialist: Reason For Referral No Information Medications Medication [...] nts Abrysvo Unknown 08/30/2024 Administered Flu, Flucelvax (80344) 6 mos and older, single-dose syringe (1271-1394) Unknown 08/16/2024 Administered Social History Tobacco Use: [...] W/U Status Risk Notes Problem Centrilobular emphysema (82163107) Centrilobular emphysema (J43.2) Active confirmed Prior treatments: Symbicort 160 + Spiriva 2.5 > Stiolto, Advair, Trelegy & Breo (does not tolerate dry powder inhalers) Problem Long-term current use of inhaled steroid (563405782) snf (current) use of inhaled steroids (Z79.51) Active confirmed Problem 465633398058204 snf (current) use of systemic steroids (Z79.52) Active confirmed Problem Cannabis abuse (70457224) Marijuana abuse (F12.10) Active confirmed Problem Ex-tobacco user (finding) (214890504) History of tobacco abuse (Z87.891) Active confirmed 1ppd x ~35 years, quit 2021 Problem 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) Active confirmed Vital Signs Heart Rate 99 /min 03/14/2025 Temperature 96.8 degrees Fahrenheit 03/14/2025 Respiratory Rate 20 /min 03/14/2025 Blood pressure diastolic 58 mm Hg 03/14/2025 Oximetry 91 % 03/14/2025 Height 74 in 03/14/2025 Blood pressure systolic 104 mm Hg 03/14/2025 Weight 207.8 lbs 03/14/2025 BMI 26.68 kg/m2 03/14/2025 Procedures Procedure Date Ordered Date Performed Result Body Sit e PFT (69297, 99885, 92910) 10/12/2024 N/A Encounters Encounter Location Date Provider Diagnosis Pulmonary [facility] [address] [place] [address] 12/07/2024 [facility] [address] [place] [address] 12/21/2024 [facility] [address] [place] [address] 07/01/2024 [facility] Chronic obstructive pulmonary disease with (acute) exacerbation J44.1 and Peripheral eosinophilia D72.19 [facility] [address] [place] [address] 07/19/2024 [facility] Centrilobular emphys promise J43.2 [facility] [address] [place] [address] 07/26/2024 [facility] [address] [place] [address] 09/06/2024 [facility] [address] [place] [address] 09/08/2024 [facility] [address] [place] [address] 11/08/2024 [facility] [address] [place] [address] 08/17/2024 [facility] Centrilobular emphys promise J43.2 ; Multiple pulmonary nodules R91.8 ; Encounter for immunization Z23 ; Peripheral eosinophilia D72.19 ; History of tobacco abuse Z87.891 ; superintendent terminal (current) use of inhaled steroids Z79.51 and Encounter for screening for malignant neoplasm of respiratory organs Z12.2 [facility] [address] [place] [address] 10/12/2024 Jameson Sam Centrilobular emphys promise J43.2 ; Multiple pulmonary nodules R91.8 ; History of tobacco abuse Z87.891 and superintendent terminal (current) use of inhaled steroids Z79.51 [facility] [address] [place] [address] 12/14/2024 Jamesonerika White Centrilobular emphys promise J43.2 ; Multiple pulmonary nodules R91.8 ; History of tobacco abuse Z87.891 ; snf (current) use of inhaled steroids Z79.51 and Encounter for screening for malignant neoplasm of respiratory organs Z12.2 [facility] [address] [place] [address] 03/14/2025 Jamesonerika White Centrilobular emphys promise J43.2 ; History of tobacco abuse Z87.891 ; superintendent terminal (current) use of systemic steroids Z79.52 and snf (current) use of inhaled steroids Z79.51 Assessments [...] covered or not. Initial paperwork was signed. [id number] encounter performed with the patient to document [...] him from this). 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 03/14/2025 Centrilobular emphysema (ICD-10 - J43.2) Prior [...] (does not tolerate dry powder inhalers) 03/14/2025 snf (current) use of systemic steroids (ICD-10 - Z79.52) Discussed adverse effects of mcc systemic steroids including, but not limited to: [...] I deferred the choice to the patient. 08/17/2024 Peripheral eosinophilia (ICD-10 - D72.19) Previously had elevated eosinophils, but none present on CBC 07/06/2024 = 0.1% / abs. ct. zero. He is therefore not a Dupixent candidate. 10/12/2024 superintendent terminal (current) use of inhaled steroids (ICD-10 - Z79.51) Patient was counseled to rinse & gargle with water after inhaled corticosteroid use. 12/14/2024 snf (current) use of inhaled steroids (ICD-10 - Z79.51) Patient was counseled to rinse & gargle with water after inhaled corticosteroid use. 03/14/2025 snf (current) use of inhaled steroids (ICD-10 - [...] smoking cessation/continued tobacco abstinence. Due 11/2025. 08/17/2024 History of tobacco abuse (ICD-10 - Z87.891) 1ppd x ~35 years, quit 2021 1ppd x ~35 years, quit 2022. Last LDCT 04/30/2023. LDCT was due 04/2024 but not done for some reason. Patient voiced he still wants it done, so rescheduled it to be due now. 08/17/2024 superintendent terminal (current) use of inhaled steroids (ICD-10 [...] Pending Test Test Name Order Date PFT (66716, 57170, 27337) 10/12/2024 Insurance Providers Payer Name Payer Address Payer Phone Subscriber Number Group Number Insured Name Patient Relationship to Insured Coverage Start Date Coverage End Date [place] [address] [place] [address] [id number] Sam Kramer Self - patient is the insured 4 Medical (General) History Medical History History ICD Code Centrilobular emphysema J43.2 Allergic rhinitis J30.9 Bilateral carotid artery stenosis I65.23 Calcified lymph nodes I89.8 Depression with anxiety F41.8 Marijuana abuse F12.10 Peripheral eosinophilia D72.19 Tourette's F95.2 Osteoarthritis M19.90 Multiple pulmonary nodules R91.8 Vertebral artery occlusion, unspecified laterality 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
--- OUTSIDE RECORDS SUMMARY | 2025-05-26 11:55 | XMS_ITS | CCD ---
Author Organization [facility] Care Team Providers Care Business Objects Analyst Name Role Phone SAMSA, JAMESON Admitting Unavailable SAMSA, JAMESON Attending Unavailable AICHHOLZ, PLASTIC PARTS FABRICATOR TRIMMER AZUL Referring Unavailable AICHHOLZ, PLASTIC PARTS FABRICATOR TRIMMER AZUL Primary Care Unavailable SAMSA, JAMESON Consulting Unavailable AICHHOLZ, PLASTIC PARTS FABRICATOR TRIMMER AZUL Admitting Unavailable AICHHOLZ, PLASTIC PARTS FABRICATOR TRIMMER AZUL Attending Unavailable AICHHOLZ, PLASTIC PARTS FABRICATOR TRIMMER AZUL Primary Care Unavailable AICHHOLZ, PLASTIC PARTS FABRICATOR TRIMMER AZUL Consulting Unavailable SAMSA, JAMESON Admitting Unavailable SAMSA, JAMESON Attending Unavailable AICHHOLZ, PLASTIC PARTS FABRICATOR TRIMMER AZUL Primary Care Unavailable WHITNEY, DR YARIEL Figueroa Consulting Unavailable SAMSA, JAMESON Consulting Unavailable AICHHOLZ, PLASTIC PARTS FABRICATOR TRIMMER AZUL Primary Care Unavailable DAREN, DR MAURO Admitting Unavailable DAREN, DR MAURO Attending Unavailable WHITNEY, DR YARIEL Figueroa Consulting Unavailable DAREN, DR MAURO Consulting Unavailable Kiko Zurita MD Primary Care Provider [phone] Aichholz BRAZING FURNACE OPERATOR, Azul Unavailable Kiko Zurita MD Primary Care Provider Aichholz BRAZING FURNACE OPERATOR, Azul Unavailable Aichholz ESTHETICIAN FACIALIST-PLASTIC PARTS FABRICATOR TRIMMER, Azul J Primary Care Provider Aichholz BRAZING FURNACE OPERATOR, Azul Unavailable AICHHOLZ, AZUL Attending Unavailable AICHHOLZ, AZUL Attending Unavailable IBETH ARGUETA Attending Unavailable AICHHOLZ, AZUL Attending Unavailable AICHHOLZ, AZUL Attending Unavailable Allergies Allergy Classification Reported Allergen(s) Allergy Type Date of Onset Reaction(s) Facility (20 sources) Honey bee venom Allergy to substance 0 Unknown [facility] (1 source) Bee Venom Protein (Honey Bee) Propensity to adverse reactions to drug [facility] Medications Current Medications Medication Drug Class(es) Dates [...] (Lipitor) 40 MG tablet Indications: Mixed hyperlipidemia Take 1 tablet (40 mg) by mouth in the evening 90 tablet 1 12/27/2024 Active Start: 06-13-2020 take 1 tablet by [...] swallow.. Active Ensifentrine (Ohtuvayre) 3 MG/2.5ML suspension (11 sources) Start: 08-17-2024 Ensifentrine (Ohtuvayre) 3 MG/2.5ML suspension every 12 (twelve) hours 08/17/2024 Active [id number] 0.3 ml EPINEPHrine 1 mg/ml auto-injector (20 sources) alpha-Adrenergic Agonist, beta-Adrenergic Agonist, Catecholamine Start: [...] mg) by mouth Daily 90 capsule 1 02/15/2025 Active take 1 capsule by mouth once [...] completed) ipratropium bromide 0.2 mg/ml inhalation solution (11 sources) Anticholinergic Start: 09-27-2024 ipratropium (Atrovent) 0.02 % nebulizer solution 2.5 mL inhaled via nebulizer every 8 hours As Needed for shortness of breath or wheezing 09/27/2024 Active losartan potassium 25 mg oral tablet (3 sources) Angiotensin 2 Receptor Sylvia Start: 05-11-2025 take 1 tablet by mouth once daily losartan (Cozaar) 25 MG tablet Take 25 mg by mouth Daily 05/11/2025 Active polyethylene glycol 3350 74367 mg powder for oral solution (3 sources) Osmotic Laxative Start: 05-31-2024 End: 05-31-2024 take 17 g by mouth once polyethylene glycol, PEG, 3350 (Glycolax) 17 GM/SCOOP powder Indications: Colonoscopy Take 238 g by mouth 1 (one) time for 1 dose Take as detailed from clinic hand out for colonoscopy prep 238 g 05/31/2024 05/31/2024 Active predniSONE 10 mg oral tablet (15 sources) Start: 05-11-2025 take 1 tablet by mouth three times daily, then take 1 tablet by mouth twice daily, then take 1 tablet by mouth once daily predniSONE (Deltasone) 10 MG tablet TAKE 1 TABLET BY MOUTH THREE TIMES DAILY FOR 4 DAYS, then TAKE 1 TABLET BY MOUTH TWICE DAILY FOR 4 DAYS, then TAKE 1 TABLET BY MOUTH DAILY FOR 4 DAYS 05/11/2025 Active Start: 11-16-2024 End: 11-21-2024 take 1 tablet [...] by mouth at bedtime 90 tablet 1 02/15/2025 Active traZODone (DESYR EL) 75 mg tablet [...] unspecified; 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: [Centrilobular emphysema] Onset: 04-16-2022 Chronic Diabetes mellitus without complication (5 sources) Increased glucose level; 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: [Other abnormal glucose] Onset: 05-17-2025 05-17-2025 Episodic Disorders of lipid metabolism (20 sources) Mixed [...] [SHORTNESS OF BREATH] Onset: 09-25-2022 Episodic Other non-traumatic joint disorders (4 sources) Hip pain; 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: [Pain in right hip] Onset: 05-17-2025 05-17-2025 Episodic Other screening for suspected conditions (not mental disorders or infectious disease) (20 sources) Encounter for screening for malignant neoplasm of respiratory organs; 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: [Encounter for screening for malignant neoplasm of prostate] Onset: 03-07-2022 Episodic Other upper respiratory disease (20 sources) Allergic rhinitis; 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: [Allergic rhinitis, unspecified] Onset: 10-30-2023 10-30-2023 Chronic Screening and history of mental health and substance abuse codes (20 sources) Personal history of nicotine dependence; 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: [...] Episodic/Chronic Immunizations and screening for infectious disease (17 sources) Needs influenza immunization; 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: [Encounter for immunization] Onset: 08-16-2024 08-16-2024 Episodic Influenza (20 sources) Influenza; 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: [Influenza due to unidentified influenza virus with other respiratory manifestations] Onset: 10-30-2023 Resolved: 05-19-2024 10-30-2023 Episodic Mood disorders (11 sources) Mood disorders Onset: 02-07-2022 Resolved: 11-16-2024 02-07-2022 Other aftercare (11 sources) Long-term current use of inhaled steroid; 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: [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] Onset: 11-16-2024 [...] Onset: 12-15-2023 12-15-2023 Episodic Other skin disorders (20 sources) Papule of skin; 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: [Other skin changes] Onset: 11-13-2023 Resolved: 11-13-2023 11-13-2023 Episodic Other upper respiratory disease (20 sources) Polyp of vocal cord ; 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] Onset: 10-30-2023 10-30-2023 Episodic Residual codes; unclassified (20 sources) Insomnia; 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: [Insomnia, unspecified] Onset: 10-30-2023 10-30-2023 Episodic Viral infection (20 sources) Disease caused by 2019-nCoV; 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: [COVID-19] Onset: 07-23-2019 10-30-2023 Episodic Results Test Name Value Interpretation Reference Range Facility XR CHEST 2Von 11-16-2024 [place] [address] XRay Report Signed Patient: SAM KRAMER MR#: [id number] : 1960 Acct:[id number] Age/Sex: 64 / M ADM Date: 11/16/24 Loc: RAD Attending Dr: Azul Quezada NP Ordering Physician: Azul Quezada NP Date of Service: 11/16/24 Procedure(s): XR chest 2V Accession Number(s): [id number] cc: Azul Quezada NP [address] [address] Patient Name: SAM KRAMER MRN: [facility]:[id number] date: 1960 Sex: M Assigned Patient Location: [facility] Current Patient Location: [facility] Accession/Order Number: [id number] Exam Date: 11/16/2024 19:23 Report Date: 11/16/2024 [...] Carlos Knight M.D.11/16/2024 7:24 PM Dictation Location: [place] [address] Electronically authenticated by: [id number] Y Date: 11/16/2024 19:24 Dictated By: Carlos Knight M.D. Signed By: 11/16/241925 DD/ 23 TD/TT: Cordage Sales Representative: [facility] Radiology, Radiologist, MD - 11/16/2024 [facility] [place] [id number] XRay Report Signed Patient: SAM KRAMER MR#: [id number] : 1960 Acct:[id number] Age/Sex: 64 / M ADM Date: 11/16/24 Loc: RAD Attending Dr: Azul Quezada NP Ordering Physician: Azul Quezada NP Date of Service: 11/16/24 Procedure(s): XR chest 2V Accession Number(s): [id number] cc: Azul Quezada NP [address] [address] Patient Name: SAM KRAMER MRN: [id number] date: 1960 Sex: M Assigned Patient Location: [facility] Current Patient Location: RAD Accession/Order Number: [id number] Exam Date: 11/16/2024 19:23 Report Date: 11/16/2024 [...] Carlos Knight M.D.11/16/2024 7:24 PM Dictation Location: [place] [address] Electronically authenticated by: [id number] Y Date: 11/16/2024 19:24 Dictated By: Carlos Knight M.D. Signed By: 11/16/241925 DD/ 23 TD/TT: Cordage Sales Representative: [facility] Study [facility] (narrative) [facility] 2[facility]Ordered By: [facility] on 11-16-2024 [facility] Work Phone: ALL HEMOGLOBINon 10-22-2024 Hemoglobin (Bld) [Mass/Vol] 14.8 g/dL 14.0 - 18.0 g/dL [facility] [employer] e PSA TOTAL+% FREEon 4 % FREE PSA 26.0 % . [facility] Comment on above: The table below list [...] any other population of men. Performed at: [address] [id number] Buffet Runner: Mich Orozco PhD, Phone: [phone] Prostate specific Ag [Mass/Vol] 1.0 ng/mL 0.0 - 4.0 ng/mL [facility] Comment on above: Darlin ECLIA methodol ogy. According to the [employer], Serum PSA should decrease and [...] malignant disease. PSA, FREE 0.26 ng/mL N/A [facility] Comment on above: Darlin ECLIA methodol ogy. [facility] ALL CBC WITH AUTO DIFFon BASOPHILS ABSOLUTE AUTO 0.1 [facility] Basophils/100 WBC (Bld) 0.9 % 0.2 - 2.0 % [facility] Eosinophils/100 WBC (Bld) 0.1 % Low 0.9 - 7.0 % [facility] Erythrocyte distribution width (RBC) [Ratio] 12.8 % 11.0 - 15.0 % [facility] Hematocrit (Bld) [Volume fraction] 43.1 % 42.0 - 54.0 % [facility] (B[facility] [Mass/Vol] 13.9 g/dL Low 14.0 - 18.0 g/dL [facility] IMMATURE GRANULOCYTES ABS AUTO 0.03 [facility] Immature granulocytes/100 WBC (Bld) 0.3 % 0.0 - 0.5 % [facility] Interpretation and review of laboratory results Abnormal [facility] LYMPHOCYTES ABSOLUTE AUTO 1.2 [facility] Lymphocytes/100 WBC (Bld) 14 % Low 20.5 - 60.0 % [facility] MCH (RBC) [Entitic mass] 30.3 pg 25.9 - 34.0 pg [facility] MCHC (RBC) [Mass/Vol] 32.3 g/dL 29.9 - 35.2 g/dL [facility] MCV (RBC) [Entitic vol] 94.1 fL High 80.0 - 94.0 fL [facility] MONOCYTES ABSOLUTE AUTO 0.9 High [facility] Monocytes/100 WBC (Bld) 9.7 % 1.7 - 12.0 % [facility] NEUTROPHILS ABSOLUTE AUTO 6.5 [facility] Neutrophils/100 WBC (Bld) 75 % 43.0 - 75.0 % [facility] Platelet mean volume (Bld) [Entitic vol] 10.1 fL 9.5 - 13.5 fL [facility] EO # 0 [facility] PLT 326 [facility] RBC 4.58 Low [facility] WBC 8.7 [facility] UA (CLEAN/CATCH) [facility] OPIC IF INDICATEon 05-31-2024 BILIRUBIN URINE Negative NEGATIVE [facility] BLO[facility] Negative NEGATIVE [facility] Clarity (U) CLEAR CLEAR [facility] Color (U) LT. YELLOW YELLOW [facility] GLUCOSE URINE UA Negative NEGATIVE mg/dL [facility] Interpretation and review of laboratory results Abnormal [facility] Ketones Ql (U) Negative NEGATIVE mg/dL [facility] Leukocyte esterase Test strip Ql (U) SMALL Abnormal NEGATIVE [facility] NITRITE URINE Negative NEGATIVE [facility] pH (U) 6.0 [pH] 5.0 - 9.0 [facility] PROTEIN URINE Negative NEG/TRACE mg/dL [facility] SPECIFIC GRAVITY URINE 1.015 1.005 - 1.025 [facility] URINE MICROSCOPIC INDICATED YES [facility] UROBILINOGEN URINE 0.2 EU/dL 0.2 - 1.0 EU/dL [facility] BNPon 09-25-2022 Natriuretic peptide B (Bld) [Mass/Vol] 42.0 pg/mL Normal <=900.0 [facility] Comment on above: Performed By: #### I NFLUAB #### [facility] [address] [place] [address] [address] Tom Dotson CBC AUTO DIFFon 09-25-2022 BASO # 0.1 103/ul Normal 0.0-0.1 [facility] Comment on above: Performed By: #### C BC #### [facility] [address] [place] [address] Dr. Tom Dotson Basophils/100 WBC (Bld) 0.8 % Normal 0.2-2.0 [facility] Comment on above: Performed By: #### C BC #### [facility] [address] [place] [address] Dr. Tom Dotson EO # 0.0 103/ul Normal 0.0-0.7 [facility] Comment on above: Performed By: #### C BC #### [facility] [address] [place] [address] Dr. Tom Dotson Eosinophils/100 WBC (Bld) 0.0 % Critically low 0.9-7.0 [facility] Comment on above: Performed By: #### C BC #### [facility] [address] [place] [address] Dr. Tom Dotson Erythrocyte distribution width (RBC) [Ratio] 12.4 % Normal 11.0-15.0 [facility] Comment on above: Performed By: #### C BC #### [facility] [address] [place] [address] Dr. Tom Dotson Hematocrit (Bld) [Volume fraction] 43.6 % Normal 42.0-54.0 [facility] Comment on above: Performed By: #### C BC #### [facility] [address] [place] [address] Dr. Tom Dotson Hemoglobin (Bld) [Mass/Vol] 14.3 g/dL Normal 14.0-18.0 [facility] Comment on above: Performed By: #### C BC #### [facility] [address] [place] [address] Dr. Tom Dotson IG # 0.02 10e3/ul Normal 0.00-0.03 [facility] Comment on above: Performed By: #### C BC #### [facility] [address] [place] [address] Dr. Tom Dotson IG % 0.3 % Normal 0.0-0.5 [facility] Comment on above: Performed By: #### C BC #### [facility] [address] [place] [address] Dr. Tom Dotson LYMPH # 1.4 103/ul Normal 1.2-3.8 [facility] Comment on above: Performed By: #### C BC #### [facility] [address] [place] [address] Dr. Tom Dotson Lymphocytes/100 WBC (Bld) 17.3 % Critically low 20.5-60.0 [facility] Comment on above: Performed By: #### C BC #### [facility] [address] [place] [address] Dr. Tom Dotson MANUAL DIFF REQ NO Normal [facility] Comment on above: Performed By: #### C BC #### [facility] [address] [place] [address] Dr. Tom Dotson MCH (RBC) [Entitic mass] 29.8 pg Normal 25.9-34.0 [facility] Comment on above: Performed By: #### C BC #### [facility] [address] [place] [address] Dr. Tom Dotson MCHC (RBC) [Mass/Vol] 32.8 g/dL Normal 29.9-35.2 [facility] Comment on above: Performed By: #### C BC #### [facility] [address] [place] [address] Dr. Tom Dotson MCV (RBC) [Entitic vol] 90.8 fL Normal 80.0-94.0 [facility] Comment on above: Performed By: #### C BC #### [facility] [address] [place] [address] Dr. Tom Dotson MONO # 0.7 103/ul Normal 0.3-0.8 [facility] Comment on above: Performed By: #### C BC #### [facility] [address] [place] [address] Dr. Tom Dotson Monocytes/100 WBC (Bld) 9.4 % Normal 1.7-12.0 [facility] Comment on above: Performed By: #### C BC #### [facility] [address] [place] [address] Dr. Tom Dotson NEUT # 5.7 103/ul Normal 1.4-6.5 [facility] Comment on above: Performed By: #### C BC #### [facility] [address] [place] [address] Dr. Tom Dotson Neutrophils/100 WBC (Bld) 72.2 % Normal 43.0-75.0 [facility] Comment on above: Performed By: #### C BC #### [facility] [address] [place] [address] Dr. Tom Dotson Platelet mean volume (Bld) [Entitic vol] 9.6 fL Normal 9.5-13.5 [facility] Comment on above: Performed By: #### C BC #### [facility] [address] [place] [address] Dr. Tom Dotson PLT 331 103/ul Normal 150-450 [facility] Comment on above: Performed By: #### C BC #### [facility] [address] [place] [address] Dr. Tom Dotson RBC 4.80 106/ul Normal 4.70-6.10 [facility] Comment on above: Performed By: #### C BC #### [facility] [address] [place] [address] Dr. Tom Dotson WBC 7.8 103/ul Normal 4.0-11.0 [facility] Comment on above: Performed By: #### C BC #### [facility] [address] [place] [address] Dr. Tom Dotson CULTURE BLOODon 09-25-2022 Microscopic examination of blood, culture Culture Observations: NO GROWTH AT 5 DAYS. Normal [facility] Comment on above: Performed By: #### I NFLUAB #### [facility] [address] [place] [address] Dr. Tom Dotson Microscopic examination of blood, culture Culture Observations: NO GROWTH AT 5 DAYS. Normal [facility] Comment on above: Performed By: #### I NFLUAB #### [facility] [address] [place] [address] Dr. Tom Dotson Covid-19 PCR (CVDTB)on SARS-CoV-2 (COVID-19) RNA OLGA+probe Ql (Unsp spec) Not detected Normal NOT DETECTED [facility] Comment on above: Result Comment: [...] for this test is supported by the Ortho Assistant of Health and Human Service's declaration [...] used). Performed By: #### C VDTBH #### [facility] [address] [place] [address] Dr. Tom Dotson INFLUENZA A AND B AGon 09-25 [facility] SEE BELOW Normal [facility] Comment on above: Result Comment: Nega tive for Flu A protein angiten. Infection due to Flu A cannot be ruled out. Flu A angiten in the sample may be below the detection limit of the test. Performed By: #### I NFLUAB #### [facility] [address] [place] [address] Dr. Tom Dotson INFLUBNFORMERLY [facility] SEE BELOW Normal [facility] Comment on above: Result Comment: Nega tive for Flu B protein antigen. Infection due to Flu B cannot be ruled out. Flu B antigen in the sample may be below the detection limit of the test. Performed By: #### I NFLUAB #### [facility] [address] [place] [address] Dr. Tom Dotson INFLUENZA A AG Negative Normal NEGATIVE SEE COMMENT [facility] Comment on above: Performed By: #### I NFLUAB #### [facility] [address] [place] [address] Dr. Tom Dotson INFLUENZA B AG Negative Normal NEGATIVE SEE COMMENT [facility] Comment on above: Performed By: #### I NFLUAB #### [facility] [address] [place] [address] Dr. Tom Dotson LACTATE/LACTIC ACIDon 2022 Lactate [Moles/Vol] 0.7 mmol/L Normal 0.4-1.9 [facility] Comment on above: Performed By: #### L ACT #### [facility] [address] [place] [address] Dr. Tom Dotson PROF CHEM 8 (BAS METB)on Anion gap [Moles/Vol] 9.3 mmol/L Normal [facility] Comment on above: Performed By: #### H STROPN, BMP, BNP #### [facility] [address] [place] [address] Dr. Tom Dotson Calcium [Mass/Vol] 8.8 mg/dL Normal 8.5-10.1 [facility] Comment on above: Performed By: #### H STROPN, BMP, BNP #### [facility] [address] [place] [address] Dr. Tom Dotson Chloride [Moles/Vol] 103 mmol/L Normal 98-107 [facility] Comment on above: Performed By: #### H STROPN, BMP, BNP #### [facility] [address] [place] [address] Dr. Tom Dotson CO2 [Moles/Vol] 31.1 mmol/L Normal 21.0-32.0 [facility] Comment on above: Performed By: #### H STROPN, BMP, BNP #### [facility] [address] [place] [address] Dr. Tom Dotson Creatinine [Mass/Vol] 0.77 mg/dL Normal 0.70-1.30 [facility] Comment on above: Performed By: #### H STROPN, BMP, BNP #### [facility] [address] [place] [address] [address] Tom Dotson EGFR-AF SRI LANKAN >60 Normal >=60 [facility] Comment on above: Performed By: #### H STROPN, BMP, BNP #### [facility] [address] [place] [address] [address] Tom Dotson EGFR-NON AF SRI LANKAN >60 Normal >=60 [facility] Comment on above: Performed By: #### H STROPN, BMP, BNP #### [facility] [address] [place] [address] [address] Tom Dotson Glucose [Mass/Vol] 98 mg/dL Normal 74-106 [facility] Comment on above: Performed By: #### H STROPN, BMP, BNP #### [facility] [address] [address] [address] Tom Dotson Potassium [Moles/Vol] 4.4 mmol/L Normal 3.5-5.1 [facility] Comment on above: Performed By: #### H STROPN, BMP, BNP #### [facility] [address] [place] [address] [address] Tom Dotson Sodium [Moles/Vol] 139 mmol/L Normal 136-145 [facility] Comment on above: Performed By: #### H STROPN, BMP, BNP #### [facility] [address] [place] [address] [address] Tom Dotson Urea nitrogen [Mass/Vol] 13.0 mg/dL Normal 7.0-18.0 [facility] Comment on above: Performed By: #### H STROPN, BMP, BNP #### [facility] [address] [address] [address] Tom Dotson Urea nitrogen/Creatinine [Mass ratio] 16.9 mg/mg Normal [facility] Comment on above: Performed By: #### H STROPN, BMP, BNP #### [facility] [address] [address] [address] Tom Dotson TROPONIN, HIGH SENSITIVITYon 09-25-2022 HSTROP 7.4 pg/mL Normal 4.0-76.1 [facility] Comment on above: Result Comment: CUT- OFF POINTS HAVE BEEN ESTABLISHED BASED ON THE FOURTH UNIVERSAL DEFINITIONS OF MYOCARDIAL INFARCTION. THE UPPER REFERENCE LIMIT (URL) OF TROPONIN, DEFINED THE 99TH PERCENTILE OF cTnI DISTRIBUTION IN A REFERENCE POPULATION, HAS BEEN CONFIRMED THE DECISION THRESHOLD FOR [place] DIAGNOSIS. Performed By: #### I NFLUAB #### [facility] [address] [address] [address] Tom Dotson XR CHEST 1 Von [...] by: YARIEL OLSON Date: 2022-09-25 10:55 Normal [facility] ASPERGILLUS AB, QUANTITATIVE DIDon 04-20-2022 Aspergillus flavus Negative Normal Neg:<1:1 [facility] Comment on above: Performed By: #### A SPDID #### [facility] [address] [place] [address] Dr. Tom Dotson Aspergillus fumigatus Negative Normal Neg:<1:1 [facility] Comment on above: Performed By: #### A SPDID #### [facility] [address] [address] [address] Tom Dotson Aspergillus niger Negative Normal Neg:<1:1 [place] [facility] Comment on above: Performed By: #### A SPDID #### [facility] [address] [place] [address] Dr. Tom Dotson ANTI NEUTROPHIL CYTOPLASMIC AB (ANCA) PRon 04-19-2022 Anti-MPO Antibodies <0.2 Normal 0.0-0.9 [facility] Comment on above: Result Comment: Perf ormed at: BN Performed By: #### C BC #### [facility] [address] [address] [address] Tom Dotson Anti-PR3 Antibodies <0.2 Normal 0.0-0.9 [facility] Comment on above: Result Comment: Perf ormed at: BN Performed By: #### C BC #### [facility] [address] [place] [address] Dr. Tom Dotson Atypical pANCA <1:20 Normal Neg:<1:20 [facility] Comment on above: Result Comment: The atypical pANCA pattern has been observed in a significant percentage of patients with ulcerative colitis, primary sclerosing cholangitis and autoimmune hepatitis. Performed at: CB Performed By: #### C BC #### [facility] [address] [place] [address] Dr. Tom Dotson Cytoplasmic (C-ANCA) <1:20 Normal Neg:<1:20 [facility] Comment on above: Result Comment: Perf ormed at: CB Performed By: #### C BC #### [facility] [address] [place] [address] Dr. Tom Dotson Perinuclear (P-ANCA) <1:20 Normal Neg:<1:20 [facility] Comment on above: Result Comment: The presence of positive fluorescence exhibiting P-ANCA or C-ANCA patterns alone is not specific for the diagnosis of Nevin's Granulomatosis (WG) or microscopic polyangiitis. Decisions about treatment should not be based solely on ANCA IFA results. The [employer] Consensus recommends follow up testing of positive sera with both HI-3 and MPO-ANCA enzyme immunoassays. As many as 5% serum samples are positive only by EIA. Ref. AM J Clin Pathol 1999;111:507-513. Performed at: CB Performed By: #### C BC #### [facility] [address] [place] [address] Dr. Tom Dotson IMMUNOGLOBULIN E, TOTALon Immunoglobulin E, Total 68 IU/mL Normal 6-495 [facility] Comment on above: Performed By: #### I GETOT #### [facility] [address] [place] [address] Dr. Tom Dotson ANGIOTENSION-CONVERTING ENZY ME (ELINOR)on 04-17-2022 ELINOR 28 U/L Normal 14-82 [facility] Comment on above: Performed By: #### A NGIOC #### [facility] [address] [place] [address] Dr. Tom Dotson CBC AUTO DIFFon 04-16-2022 BASO # 0.1 103/ul Normal 0.0-0.1 [facility] Comment on above: Performed By: #### I NFLUAB #### [facility] [address] [place] [address] Dr. Tom Dotson Basophils/100 WBC (Bld) 1.0 % Normal 0.2-2.0 [facility] Comment on above: Performed By: #### I NFLUAB #### [facility] [address] [place] [address] Dr. Tom Dotson EO # 0.0 103/ul Normal 0.0-0.7 [facility] Comment on above: Performed By: #### I NFLUAB #### [facility] [address] [place] [address] Dr. Tom Dotson Eosinophils/100 WBC (Bld) 0.1 % Critically low 0.9-7.0 [facility] Comment on above: Performed By: #### I NFLUAB #### [facility] [address] [place] [address] Dr. Tom Dotson Erythrocyte distribution width (RBC) [Ratio] 12.9 % Normal 11.0-15.0 [facility] Comment on above: Performed By: #### I NFLUAB #### [facility] [address] [place] [address] Dr. Tom Dotson Hematocrit (Bld) [Volume fraction] 44.8 % Normal 42.0-54.0 [facility] Comment on above: Performed By: #### I NFLUAB #### [facility] [address] [place] [address] Dr. Tom Dotson Hemoglobin (Bld) [Mass/Vol] 15.0 g/dL Normal 14.0-18.0 [facility] Comment on above: Performed By: #### I NFLUAB #### [facility] [address] [address] [address] Tom Dotson IG # 0.02 10e3/ul Normal 0.00-0.03 [facility] Comment on above: Performed By: #### I NFLUAB #### [facility] [address] [address] [address] Tom Dotson IG % 0.2 % Normal 0.0-0.5 [facility] Comment on above: Performed By: #### I NFLUAB #### [facility] [address] [address] [address] Tom Dotson LYMPH # 1.4 103/ul Normal 1.2-3.8 [facility] Comment on above: Performed By: #### I NFLUAB #### [facility] [address] [place] [address] Dr. Tom Dotson Lymphocytes/100 WBC (Bld) 17.6 % Critically low 20.5-60.0 [facility] Comment on above: Performed By: #### I NFLUAB #### [facility] [address] [place] [address] Dr. Tom Dotson MANUAL DIFF REQ NO Normal [facility] Comment on above: Performed By: #### I NFLUAB #### [facility] [address] [place] [address] Dr. Tom Dotson MCH (RBC) [Entitic mass] 30.9 pg Normal 25.9-34.0 [facility] Comment on above: Performed By: #### I NFLUAB #### [facility] [address] [place] [address] Dr. Tom Dotson MCHC (RBC) [Mass/Vol] 33.5 g/dL Normal 29.9-35.2 [facility] Comment on above: Performed By: #### I NFLUAB #### [facility] [address] [place] [address] Dr. Tom Dotson MCV (RBC) [Entitic vol] 92.2 fL Normal 80.0-94.0 [facility] Comment on above: Performed By: #### I NFLUAB #### [facility] [address] [address] [address] Tom Dotson MONO # 0.8 103/ul Normal 0.3-0.8 [facility] Comment on above: Performed By: #### I NFLUAB #### [facility] [address] [place] [address] Dr. Tom Dotson Monocytes/100 WBC (Bld) 9.6 % Normal 1.7-12.0 [facility] Comment on above: Performed By: #### I NFLUAB #### [facility] [address] [place] [address] Dr. Tom Dotson NEUT # 5.9 103/ul Normal 1.4-6.5 [facility] Comment on above: Performed By: #### I NFLUAB #### [facility] [address] [place] [address] Dr. Tom Dotson Neutrophils/100 WBC (Bld) 71.5 % Normal 43.0-75.0 [facility] Comment on above: Performed By: #### I NFLUAB #### [facility] [address] [place] [address] Dr. Tom Dotson Platelet mean volume (Bld) [Entitic vol] 9.9 fL Normal 9.5-13.5 [facility] Comment on above: Performed By: #### I NFLUAB #### [facility] [address] [place] [address] Dr. Tom Dotson PLT 325 103/ul Normal 150-450 [facility] Comment on above: Performed By: #### I NFLUAB #### [facility] [address] [place] [address] Dr. Tom Dotson RBC 4.86 106/ul Normal 4.70-6.10 [facility] Comment on above: Performed By: #### I NFLUAB #### [facility] [address] [place] [address] Dr. Tom Dotson WBC 8.2 103/ul Normal 4.0-11.0 [facility] Comment on above: Performed By: #### I NFLUAB #### [facility] [address] [address] [address] LUNG CANCER SCREENINGon [...] YARIEL OLSON Date: 2022-04-10 22:57 Normal [facility] CBC AUTO DIFFon 03-06-2022 BASO # 0.1 103/ul Normal 0.0-0.1 [facility] Comment on above: Performed By: #### C BC #### [facility] [address] [address] [address] Tom Dotson Basophils/100 WBC (Bld) 1.0 % Normal 0.2-2.0 [facility] Comment on above: Performed By: #### C BC #### [facility] [address] [address] [address] Tom Dotson EO # 2.5 103/ul Critically high 0.0-0.7 [facility] Comment on above: Performed By: #### C BC #### [facility] [address] [address] [address] Tom Dotson Eosinophils/100 WBC (Bld) 29.1 % Critically high 0.9-7.0 [facility] Comment on above: Performed By: #### C BC #### [facility] [address] [place] [address] Dr. Tom Dotson Erythrocyte distribution width (RBC) [Ratio] 12.8 % Normal 11.0-15.0 [facility] Comment on above: Performed By: #### C BC #### [facility] [address] [place] [address] Dr. Tom Dotson Hematocrit (Bld) [Volume fraction] 46.6 % Normal 42.0-54.0 [facility] Comment on above: Performed By: #### C BC #### [facility] [address] [place] [address] Dr. Tom Dotson Hemoglobin (Bld) [Mass/Vol] 14.4 g/dL Normal 14.0-18.0 [facility] Comment on above: Performed By: #### C BC #### [facility] [address] [place] [address] Dr. Tom Dotson IG # 0.04 10e3/ul Critically high 0.00-0.03 [facility] Comment on above: Performed By: #### C BC #### [facility] [address] [place] [address] Dr. Tom Dotson IG % 0.5 % Normal 0.0-0.5 [facility] Comment on above: Performed By: #### C BC #### [facility] [address] [place] [address] Dr. Tom Dotson LYMPH # 1.3 103/ul Normal 1.2-3.8 [facility] Comment on above: Performed By: #### C BC #### [facility] [address] [place] [address] Dr. Tom Dotson Lymphocytes/100 WBC (Bld) 15.1 % Critically low 20.5-60.0 [facility] Comment on above: Performed By: #### C BC #### [facility] [address] [place] [address] Dr. Tom Dotson MANUAL DIFF REQ NO Normal [facility] Comment on above: Performed By: #### C BC #### [facility] [address] [place] [address] Dr. Tom Dotson MCH (RBC) [Entitic mass] 29.5 pg Normal 25.9-34.0 [facility] Comment on above: Performed By: #### C BC #### [facility] [address] [place] [address] Dr. Tom Dotson MCHC (RBC) [Mass/Vol] 30.9 g/dL Normal 29.9-35.2 [facility] Comment on above: Performed By: #### C BC #### [facility] [address] [place] [address] Dr. Tom Dotson MCV (RBC) [Entitic vol] 95.5 fL Critically high 80.0-94.0 [facility] Comment on above: Performed By: #### C BC #### [facility] [address] [place] [address] Dr. Tom Dtoson MONO # 0.8 103/ul Normal 0.3-0.8 [facility] Comment on above: Performed By: #### C BC #### [facility] [address] [place] [address] Dr. Tom Dotsno Monocytes/100 WBC (Bld) 9.5 % Normal 1.7-12.0 [facility] Comment on above: Performed By: #### C BC #### [facility] [address] [place] [address] Dr. Tom Dotson NEUT # 3.9 103/ul Normal 1.4-6.5 [facility] Comment on above: Performed By: #### C BC #### [facility] [address] [place] [address] Dr. Tom Dotson Neutrophils/100 WBC (Bld) 44.8 % Normal 43.0-75.0 [facility] Comment on above: Performed By: #### C BC #### [facility] [address] [place] [address] Dr. Tom Dotson Platelet mean volume (Bld) [Entitic vol] 10.2 fL Normal 9.5-13.5 [facility] Comment on above: Performed By: #### C BC #### [facility] [address] [place] [address] Dr. Tom Dotson PLT 328 103/ul Normal 150-450 [facility] Comment on above: Performed By: #### C BC #### [facility] [address] [place] [address] Dr. Tom Dotson RBC 4.88 106/ul Normal 4.70-6.10 [facility] Comment on above: Performed By: #### C BC #### [facility] [address] [place] [address] Dr. Tom Dotson WBC 8.7 103/ul Normal 4.0-11.0 [facility] Comment on above: Performed By: #### C BC #### [facility] [address] [place] [address] Dr. Tom Dotson DIFFERENTIAL MANUALon 2021 ATYPICAL LYMPH # 0.09 103/ul Normal [facility] Comment on above: Performed By: #### D IFF #### [facility] [address] [place] [address] Dr. Tom Dotson ATYPICAL LYMPH % 1 % Normal [facility] Comment on above: Performed By: #### D IFF #### [facility] [address] [place] [address] Dr. Tom Dotson BAND # 0.0 103/ul Normal 0.0-0.3 [facility] Comment on above: Performed By: #### D IFF #### [facility] [address] [place] [address] Dr. Tom Dotson BAND % 0 % Normal 0-5 [facility] Comment on above: Performed By: #### D IFF #### [facility] [address] [place] [address] Dr. Tom Dotson BASOM # 0.00 103/ul Normal 0.00-0.10 [facility] Comment on above: Performed By: #### D IFF #### [facility] [address] [place] [address] Dr. Tom Dotson BASOM % 0.0 % Critically low 0.2-2.0 [facility] Comment on above: Performed By: #### D IFF #### [facility] [address] [place] [address] Dr. Tom Dotson BLAST # Normal [facility] Comment on above: Performed By: #### D IFF #### [facility] [address] [place] [address] Dr. Tom Dotson BLAST % Normal [facility] Comment on above: Performed By: #### D IFF #### [facility] [address] [place] [address] Dr. Tom Dotson CORRECTED WBC Normal 4.0-11.0 [facility] Comment on above: Performed By: #### D IFF #### [facility] [address] [place] [address] Dr. Tom Dotson EOS # 1.22 103/ul Critically high 0.00-0.70 [facility] Comment on above: Performed By: #### D IFF #### [facility] [address] [place] [address] Dr. Tom Dotson EOS% 14.0 % Critically high 0.9-7.0 [facility] Comment on above: Performed By: #### D IFF #### [facility] [address] [place] [address] Dr. Tom Dotson LYMPHM # 1.91 103/ul Normal 1.20-3.80 [facility] Comment on above: Performed By: #### D IFF #### [facility] [address] [place] [address] Dr. Tom Dotson LYMPHM% 22.0 % Normal 20.5-60.0 [facility] Comment on above: Performed By: #### D IFF #### [facility] [address] [place] [address] Dr. Tom Dotson METAMYELOCYTE # Normal [facility] Comment on above: Performed By: #### D IFF #### [facility] [address] [place] [address] Dr. Tom Dotson METAMYELOCYTE % Normal [facility] Comment on above: Performed By: #### D IFF #### [facility] [address] [place] [address] Dr. Tom Dotson MONOM# 0.52 103/ul Normal 0.30-0.80 [facility] Comment on above: Performed By: #### D IFF #### [facility] [address] [place] [address] Dr. Tom Dotson MONOM% 6.0 % Normal 1.7-12.0 [facility] Comment on above: Performed By: #### D IFF #### [facility] [address] [place] [address] Dr. Tom Dotson MYELOCYTE # Normal [facility] Comment on above: Performed By: #### D IFF #### [facility] [address] [place] [address] Dr. Tom Dotson MYELOCYTE % Normal [facility] Comment on above: Performed By: #### D IFF #### [facility] [address] [place] [address] Dr. Tom Dotson NRBC Normal [facility] Comment on above: Performed By: #### D IFF #### [facility] [address] [place] [address] Dr. Tom Dotson SEG # 4.96 103/ul Normal 1.40-6.50 [facility] Comment on above: Performed By: #### D IFF #### [facility] [address] [place] [address] Dr. Tom Dotson SEG % 57.0 % Normal 43.0-75.0 [facility] Comment on above: Performed By: #### D IFF #### [facility] [address] [place] [address] Dr. Tom Dotson WBC 8.7 103/ul Normal 4.0-11.0 [facility] Comment on above: Performed By: #### D IFF #### [facility] [address] [address] [address] Tom Dotson LIPID PROFILEon 03-06-2022 CHOL-HDL RATIO NORM SEE BELOW Normal [facility] Comment on above: Result Comment: 3.3 - 4.4 LOW RISK 4.4 - 7.1 AVERAGE RISK 7.1 - 11.0 MODERATE RISK >11.0 HIGH RISK Performed By: #### I NFLUAB #### [facility] [address] [address] [address] Tom Dotson Cholesterol [Mass/Vol] 135 mg/dL Normal <=200 [facility] Comment on above: Performed By: #### I NFLUAB #### [facility] [address] [address] [address] Tom Dotson Cholesterol in HDL [Mass/Vol] 51 mg/dL Normal 40-60 [facility] Comment on above: Performed By: #### I NFLUAB #### [facility] [address] [address] [address] Tom Dotson Cholesterol in LDL [Mass/Vol] 74.4 mg/dL Normal [facility] Comment on above: Performed By: #### I NFLUAB #### [facility] [address] [address] [address] Tom Dotson Cholesterol.total/Ch olesterol in HDL [Mass ratio] 2.6 {ratio} Normal [facility] Comment on above: Performed By: #### I NFLUAB #### [facility] [address] [address] [address] oTm Dotson HDL NORMAL > or = 60 mg/dl - LOW CARDIOVASCULAR RISK <40 mg/dl - HIGH CARDIOVASCULAR RISK Normal [facility] Comment on above: Performed By: #### I NFLUAB #### [facility] [address] [address] [address] Tom Dotson LDL CALC NORMAL SEE BELOW Normal [facility] Comment on above: Result Comment: <100 mg/dl OPTIMAL 100 - 129 mg/dl NEAR OR ABOVE OPTIMAL 130 - 159 mg/dl BORDERLINE HIGH 160 - 189 mg/dl HIGH >190 mg/dl VERY HIGH Performed By: #### I NFLUAB #### [facility] [address] [place] [address] Dr. Tom Dotson Triglyceride [Mass/Vol] 48 mg/dL Normal <=150 [facility] Comment on above: Performed By: #### I NFLUAB #### [facility] [address] [address] [address] Tom Dotson VLDL CALC 9.6 mg/dL Normal [facility] Comment on above: Performed By: #### I NFLUAB #### [facility] [address] [address] [address] Tom Dotson PROF 14(COMP METB)on 022 Albumin [Mass/Vol] 3.8 g/dL Normal 3.4-5.0 [facility] Comment on above: Performed By: #### I NFLUAB #### [facility] [address] [place] [address] Dr. Tom Dotson Albumin/Globulin [Mass ratio] 1.1 {ratio} Normal [facility] Comment on above: Performed By: #### I NFLUAB #### [facility] [address] [place] [address] Dr. Tom Dotson ALP [Catalytic activity/Vol] 62 U/L Normal 46-116 [facility] Comment on above: Performed By: #### I NFLUAB #### [facility] [address] [place] [address] Dr. Tom Dotson ALT [Catalytic activity/Vol] 25 U/L Normal 16-63 [facility] Comment on above: Performed By: #### I NFLUAB #### [facility] [address] [place] [address] Dr. Tom Dotson Anion gap [Moles/Vol] 9.8 mmol/L Normal [facility] Comment on above: Performed By: #### I NFLUAB #### [facility] [address] [place] [address] Dr. Tom Dotson AST [Catalytic activity/Vol] 15 U/L Normal 15-37 [facility] Comment on above: Performed By: #### I NFLUAB #### [facility] [address] [address] [address] Tom Dotson Bilirubin [Mass/Vol] 0.9 mg/dL Normal 0.2-1.0 [facility] Comment on above: Performed By: #### I NFLUAB #### [facility] [address] [address] [address] Tom Dotson Calcium [Mass/Vol] 8.8 mg/dL Normal 8.5-10.1 [facility] Comment on above: Performed By: #### I NFLUAB #### [facility] [address] [address] [address] Tom Dotson Chloride [Moles/Vol] 102 mmol/L Normal 98-107 [facility] Comment on above: Performed By: #### I NFLUAB #### [facility] [address] [place] [address] Dr. Tom Dotson CO2 [Moles/Vol] 30.5 mmol/L Normal 21.0-32.0 [facility] Comment on above: Performed By: #### I NFLUAB #### [facility] [address] [place] [address] Dr. Tom Dotson Creatinine [Mass/Vol] 0.95 mg/dL Normal 0.70-1.30 [facility] Comment on above: Performed By: #### I NFLUAB #### [facility] [address] [place] [address] Dr. Tom Dotson EGFR-AF SRI LANKAN >60 Normal >=60 [facility] Comment on above: Performed By: #### I NFLUAB #### [facility] [address] [place] [address] Dr. Tom Dotson EGFR-NON AF SRI LANKAN >60 Normal >=60 [facility] Comment on above: Performed By: #### I NFLUAB #### [facility] [address] [place] [address] Dr. Tom Dotson Globulin (S) [Mass/Vol] 3.4 g/dL Normal [facility] Comment on above: Performed By: #### I NFLUAB #### [facility] [address] [address] [address] Tom Dotson Glucose [Mass/Vol] 85 mg/dL Normal 74-106 [facility] Comment on above: Performed By: #### I NFLUAB #### [facility] [address] [address] [address] Tom Dotson Potassium [Moles/Vol] 4.3 mmol/L Normal 3.5-5.1 [facility] Comment on above: Performed By: #### I NFLUAB #### [facility] [address] [address] [address] Tom Dotson Protein [Mass/Vol] 7.2 g/dL Normal 6.4-8.2 [facility] Comment on above: Performed By: #### I NFLUAB #### [facility] [address] [address] [address] Tom Dotson Sodium [Moles/Vol] 138 mmol/L Normal 136-145 [facility] Comment on above: Performed By: #### I NFLUAB #### [facility] [address] [address] [address] Tom Dotson Urea nitrogen [Mass/Vol] 14.0 mg/dL Normal 7.0-18.0 [facility] Comment on above: Performed By: #### I NFLUAB #### [facility] [address] [address] [address] Tom Dotson Urea nitrogen/Creatinine [Mass ratio] 14.7 mg/mg Normal [facility] Comment on above: Performed By: #### I NFLUAB #### [facility] [address] [address] [address] Tom Dotson TSHon 03-06-2022 TSH 1.010 uIU/mL Normal 0.358-3.740 [facility] Comment on above: Performed By: #### I NFLUAB #### [facility] [address] [address] [address] Tom Dotson Hepatic Panelon 09-02-2019 Albumin [Mass/Vol] 3.2 g/dL Normal 3.2-5.5 [facility] Comment on above: Performed By: #### H EPATIC, LIPID, TSH3 wRFLX, [id number] #### [facility] [address] Albumin/Globulin [Mass ratio] 1.1 {ratio} Normal [facility] Comment on above: Performed By: #### H EPATIC, LIPID, TSH3 wRFLX, [id number] #### [address] ALP [Catalytic activity/Vol] 38 U/L Normal 32-92 [facility] Comment on above: Performed By: #### H EPATIC, LIPID, TSH3 wRFLX, [id number] #### [address] ALT [Catalytic activity/Vol] 14 U/L Normal 10-60 [facility] Comment on above: Performed By: #### H EPATIC, LIPID, TSH3 wRFLX, [id number] #### [address] AST [Catalytic activity/Vol] 13 U/L Normal 10-42 [facility] Comment on above: Performed By: #### H EPATIC, LIPID, TSH3 wRFLX, [id number] #### [address] Bilirubin [Mass/Vol] 0.9 mg/dL Normal 0.3-1.2 [facility] Comment on above: Performed By: #### H EPATIC, LIPID, TSH3 wRFLX, [id number] #### [facility] [address] [place] [address] [place] Bilirubin,Indirect 0.8 mg/dL Normal [facility] Comment on above: Performed By: #### H EPATIC, LIPID, TSH3 wRFLX, [id number] #### [address] Bilirubin.direct [Mass/Vol] 0.1 mg/dL Normal 0.0-0.4 [facility] Comment on above: Performed By: #### H EPATIC, LIPID, TSH3 wRFLX, [id number] #### [facility] [address] Globulin (S) [Mass/Vol] 2.9 g/dL Normal [facility] Comment on above: Performed By: #### H EPATIC, LIPID, TSH3 wRFLX, [id number] #### [facility] [address] Protein [Mass/Vol] 6.1 g/dL Normal 6.1-7.9 [facility] Comment on above: Performed By: #### H EPATIC, LIPID, TSH3 wRFLX, [id number] #### [facility] [address] [place] [address] Lipid Panelon 09-02-2019 Cholesterol [Mass/Vol] 158 mg/dL Normal 140-200 [facility] Comment on above: Result Comment: Chol less than 200 mg/dl low risk Chol 201-239 mg/dl borderline risk Chol 240 mg/dl and greater high risk Performed By: #### H EPATIC, LIPID, TSH3 wRFLX, [id number] #### [facility] [address] [place] [address] Cholesterol in HDL [Mass/Vol] 61 mg/dL Normal 29-71 [facility] Comment on above: Result Comment: HDL CHOL ATP-III CLASSIFICATION Cardiovascular Risk HDL > or equal to 60 mg/dL LOW HDL < 40 mg/dL HIGH Performed By: #### H EPATIC, LIPID, TSH3 wRFLX, [id number] #### [facility] [address] Cholesterol.total/Ch olesterol in HDL [Mass ratio] 2.6 {ratio} Normal <5.0 [facility] Comment on above: Performed By: #### H EPATIC, LIPID, TSH3 wRFLX, [id number] #### [facility] [address] LDL Cholesterol,Calculat ed 84 mg/dL Normal 0-100 [facility] Comment on above: Result Comment: LDL ATP III CLASSIFICATION LDL less than 100 mg/dL Optimal LDL 100-129 mg/dL Near or above optimal LDL 130-159 mg/dL Borderline high LDL 160-189 mg/dL High LDL greater than 189 mg/dL Very high Performed By: #### H EPATIC, LIPID, TSH3 wRFLX, [id number] #### [facility] [address] Triglyceride w/Reflex 63 mg/dL Normal 35-149 [facility] Comment on above: Result Comment: TRIG ATP III CLASSIFICATION TRIG less than 150 mg/dL Normal TRIG 150-199 mg/dL Borderline high TRIG 200-500 mg/dL High TRIG greater than 500 mg/dL Very high Standard traceable to the Center for Disease Conrtrol and Prevention (CDC) test method. Performed By: #### H EPATIC, LIPID, TSH3 wRFLX, [id number] #### [facility] [address] VLDL CHOLESTEROL 12 mg/dL Normal [facility] Comment on above: Performed By: #### H EPATIC, LIPID, TSH3 wRFLX, [id number] #### [facility] [address] Thyroid Stim Hormone w/Rflxo n 09-02-2019 Thyroid Stim Hormone w/Rflx 1.92 u[iU]/mL Normal 0.45-5.33 [facility] Comment on above: Performed By: #### H EPATIC, LIPID, TSH3 wRFLX, [id number] #### [facility] [address] Vitamin D 25 Hydroxy Totalon 09-02-2019 Vitamin D 25 Hydroxy Total 11.9 ng/mL Low 30-100 [facility] Comment on above: Result Comment: DAE MIN D STATUS 25(OH)VITAMIN D RANGE (ng/mL) Deficient <20 Insufficient 20 to <30 Sufficient 30 to 100 Reference: Darrion MF,Zane LO, Hanna AVELAR, et al. Evaluation,treatment, and prevention of vitamin D deficiency; an Endocrine Society clinical practice guideline. JCEM. 2010; 96(7):1911-30. PERFORMED BY: [facility] [address] [id number] PATHOLOGIST STUDENT UNION CONSULTANT MIGUELINA FLOOD M.D. Performed By: #### H EPATIC, LIPID, TSH3 wRFLX, [id number] #### [facility] [address] [place] [address] [facility] Vital Signs Date Time Vital Sign Value Performing Clinician Madan mayer 05-17-2025 15:38-0400 Body mass index (BMI) [Ratio] 27.86 kg/m2 Azul Damien BRAZING FURNACE OPERATOR Work Phone: [facility] 05-17-2025 15:38-0400 Body temperature 97.81 [degF] Azul Rosaholz BRAZING FURNACE OPERATOR Work Phone: [facility] 05-17-2025 15:38-0400 Body weight 95.8 kg Azul Rosaholz BRAZING FURNACE OPERATOR Work Phone: [facility] 05-17-2025 15:38-0400 Diastolic blood pressure 76 mm[Hg] Azul Leidymaxholz BRAZING FURNACE OPERATOR Work Phone: [facility] 05-17-2025 15:38-0400 Heart rate 84 /min Azul Aichholz BRAZING FURNACE OPERATOR Work Phone: [facility] 05-17-2025 15:38-0400 Respiratory rate 24 /min Azul Aichholz BRAZING FURNACE OPERATOR Work Phone: [facility] 05-17-2025 15:38-0400 SaO2% (BldA) [Mass fraction] 94 % Azul Maria Luzz BRAZING FURNACE OPERATOR Work Phone: [facility] 05-17-2025 15:38-0400 Systolic blood pressure 124 mm[Hg] Azul Aichholz BRAZING FURNACE OPERATOR Work Phone: [facility] 02-15-2025 13:54-0400 Body mass index (BMI) [Ratio] 27.42 kg/m2 Azul Aichholz BRAZING FURNACE OPERATOR Work Phone: [facility] 02-15-2025 13:54-0400 Body temperature 99 [degF] Azul Rosaholz BRAZING FURNACE OPERATOR Work Phone: [facility] 02-15-2025 13:54-0400 Body weight 94.26 kg Azul Leidyhholz BRAZING FURNACE OPERATOR Work Phone: [facility] 02-15-2025 13:54-0400 Diastolic blood pressure 62 mm[Hg] Azul Aichholz BRAZING FURNACE OPERATOR Work Phone: [facility] 02-15-2025 13:54-0400 Heart rate 88 /min Azul Aichholz BRAZING FURNACE OPERATOR Work Phone: [facility] 02-15-2025 13:54-0400 Respiratory rate 24 /min Azul Aichholz BRAZING FURNACE OPERATOR Work Phone: [facility] 02-15-2025 13:54-0400 SaO2% (BldA) [Mass fraction] 92 % Azul Aichholz BRAZING FURNACE OPERATOR Work Phone: [facility] 02-15-2025 13:54-0400 Systolic blood pressure 100 mm[Hg] Azul Aichholz BRAZING FURNACE OPERATOR Work Phone: [facility] 11-16-2024 14:25-0500 Body mass index (BMI) [Ratio] 25.57 kg/m2 Azul Leidyhholz BRAZING FURNACE OPERATOR Work Phone: [facility] 11-16-2024 14:25-0500 Body temperature 99.39 [degF] Azul Leidyhholz BRAZING FURNACE OPERATOR Work Phone: [facility] 11-16-2024 14:25-0500 Body weight 87.91 kg Azul Aichholz BRAZING FURNACE OPERATOR Work Phone: [facility] 11-16-2024 14:25-0500 Diastolic blood pressure 68 mm[Hg] Azul Aichholz BRAZING FURNACE OPERATOR Work Phone: [facility] 11-16-2024 14:25-0500 Heart rate 90 /min Azul Aichholz BRAZING FURNACE OPERATOR Work Phone: [facility] 11-16-2024 14:25-0500 Respiratory rate 26 /min Azul Aichholz BRAZING FURNACE OPERATOR Work Phone: [facility] 11-16-2024 14:25-0500 SaO2% (BldA) [Mass fraction] 92 % Azul Rosaholz BRAZING FURNACE OPERATOR Work Phone: [facility] 11-16-2024 14:25-0500 Systolic blood pressure 100 mm[Hg] Azul Rosaholz BRAZING FURNACE OPERATOR Work Phone: [facility] 08-16-2024 13:20-0500 Body height 185.4 cm Azul Rosaholz BRAZING FURNACE OPERATOR Work Phone: [facility] 08-16-2024 13:20-0500 Body mass index (BMI) [Ratio] 25.17 kg/m2 Azul Rosaholz BRAZING FURNACE OPERATOR Work Phone: [facility] 08-16-2024 13:20-0500 Body temperature 98.29 [degF] Azul Rosaholz BRAZING FURNACE OPERATOR Work Phone: [facility] 08-16-2024 13:20-0500 Body weight 86.55 kg Azul Leidyhholz BRAZING FURNACE OPERATOR Work Phone: [facility] 08-16-2024 13:20-0500 Diastolic blood pressure 78 mm[Hg] Azul Rosaholz BRAZING FURNACE OPERATOR Work Phone: [facility] 08-16-2024 13:20-0500 Heart rate 77 /min Azul Rosaholz BRAZING FURNACE OPERATOR Work Phone: [facility] 08-16-2024 13:20-0500 Respiratory rate 24 /min Azul Rosaholz BRAZING FURNACE OPERATOR Work Phone: [facility] 08-16-2024 13:20-0500 SaO2% (BldA) [Mass fraction] 97 % Azul Rosaholz BRAZING FURNACE OPERATOR Work Phone: [facility] 08-16-2024 13:20-0500 Systolic blood pressure 116 mm[Hg] Azul Aichholz BRAZING FURNACE OPERATOR Work Phone: [facility] 05-31-2024 13:20-0400 Body height 185.4 cm Ibeth Argueta DO Work Phone: [facility] 05-31-2024 13:20-0400 Body mass index (BMI) [Ratio] 23.67 kg/m2 Ibeth Argueta DO Work Phone: [facility] 05-31-2024 13:20-0400 Body weight 81.38 kg Ibeth Argueta DO Work Phone: [facility] 05-31-2024 13:20-0400 Diastolic blood pressure 66 mm[Hg] Ibeth Argueta DO Work Phone: [facility] 05-31-2024 13:20-0400 Heart rate 70 /min Ibeth Argueta DO Work Phone: [facility] 05-31-2024 13:20-0400 Respiratory rate 12 /min Ibeth Argueta DO Work Phone: [facility] 05-31-2024 13:20-0400 SaO2% (BldA) [Mass fraction] 98 % Ibeth Argueta DO Work Phone: [facility] 05-31-2024 13:20-0400 Systolic blood pressure 110 mm[Hg] Ibeth Argueta DO Work Phone: [facility] 05-19-2024 14:17-0400 Body height 185.4 cm Azul Quezada BRAZING FURNACE OPERATOR Work Phone: [facility] 05-19-2024 14:17-0400 Body mass index (BMI) [Ratio] 23.62 kg/m2 Azul Quezada BRAZING FURNACE OPERATOR Work Phone: [facility] 05-19-2024 14:17-0400 Body temperature 98.01 [degF] Azul Quezada BRAZING FURNACE OPERATOR Work Phone: [facility] 05-19-2024 14:17-0400 Body weight 81.19 kg Azul Quezada BRAZING FURNACE OPERATOR Work Phone: [facility] 05-19-2024 14:17-0400 Diastolic blood pressure 64 mm[Hg] Azul Aichholz BRAZING FURNACE OPERATOR Work Phone: [facility] 05-19-2024 14:17-0400 Heart rate 79 /min Azul Aichholz BRAZING FURNACE OPERATOR Work Phone: [facility] 05-19-2024 14:17-0400 Respiratory rate 22 /min Azul Aichholz BRAZING FURNACE OPERATOR Work Phone: [facility] 05-19-2024 14:17-0400 SaO2% (BldA) [Mass fraction] 94 % Azul Aichholz BRAZING FURNACE OPERATOR Work Phone: [facility] 05-19-2024 14:17-0400 Systolic blood pressure 90 mm[Hg] Azul Aichholz BRAZING FURNACE OPERATOR Work Phone: [facility] 10-30-2023 10:00-0500 Body height 185.4 cm Azul Aichholz BRAZING FURNACE OPERATOR Work Phone: [facility] 10-30-2023 10:00-0500 Body mass index (BMI) [Ratio] 26.84 kg/m2 Azul Aichholz BRAZING FURNACE OPERATOR Work Phone: [facility] 10-30-2023 10:00-0500 Body temperature 97.11 [degF] Azul Aichholz BRAZING FURNACE OPERATOR Work Phone: [facility] 10-30-2023 10:00-0500 Body weight 92.26 kg Azul Aichholz BRAZING FURNACE OPERATOR Work Phone: [facility] 10-30-2023 10:00-0500 Diastolic blood pressure 78 mm[Hg] Azul Aichholz BRAZING FURNACE OPERATOR Work Phone: [facility] 10-30-2023 10:00-0500 Heart rate 83 /min Azul Aichholz BRAZING FURNACE OPERATOR Work Phone: [facility] 10-30-2023 10:00-0500 Respiratory rate 16 /min Azul Aichholz BRAZING FURNACE OPERATOR Work Phone: [facility] 02-08-2024 10:00-0500 SaO2% (BldA) [Mass fraction] 94 % Azul Leidymaxrani BRAZING FURNACE OPERATOR Work Phone: [facility] 10-30-2023 10:00-0500 Systolic blood pressure 138 mm[Hg] Azul Leerani BRAZING FURNACE OPERATOR Work Phone: [facility] Encounters Encounter Date Encounter Type Care Provider Facility Start: 05-17-2025 End: 05-17-2025 Transitional care manage srvc 7 day discharge Azul Damien BRAZING FURNACE OPERATOR Work Phone: [facility] Comment on above: Centrilobular emphys promise (HCC) (Primary Dx); Tourette's ; Bilateral carotid artery stenosis; Rising PSA level; Mixed hyperlipidemia ; Depression with anxiety; Former smoker; Elevated glucose; Pain of right hip Start: 05-17-2025 End: 05-17-2025 ambulatory AZUL DAMIEN Not Available Start: 05-17-2025 End: 05-17-2025 Bamboo flowsheet Azul Damien BRAZING FURNACE OPERATOR Work Phone: [facility] Start: 05-17-2025 End: 05-17-2025 Bamboo flowsheet Azul Damien BRAZING FURNACE OPERATOR Work Phone: [facility] Start: 02-15-2025 End: 02-15-2025 Bamboo flowsheet Azul Damien BRAZING FURNACE OPERATOR Work Phone: [facility] Start: 02-15-2025 End: 02-15-2025 Bamboo flowsheet Azul Damien BRAZING FURNACE OPERATOR Work Phone: [facility] Start: 02-15-2025 End: 02-15-2025 Office outpatient visit 25 minutes Azul Quezada BRAZING FURNACE OPERATOR Work Phone: [facility] Comment on above: Depression with anxi ety (Primary Dx); Cerebrovascular accident (CVA), unspecified mechanism (CMS/HCC); Overweight (BMI 25.0-29.9); Centrilobular emphysema (CMS/HCC); Insomnia, unspecified Start: 02-15-2025 End: 02-15-2025 ambulatory AZUL LEIDYMaxRANI Not Available Start: 12-27-2024 End: 12-27-2024 Refill Azul Leerani BRAZING FURNACE OPERATOR Work Phone: [facility] Comment on above: Mixed hyperlipidemia (CMS/HCC) Start: 11-16-2024 End: 11-16-2024 Bamboo flowsheet Azul Damien BRAZING FURNACE OPERATOR Work Phone: [facility] Start: 11-16-2024 End: 11-16-2024 Bamboo flowsheet Azulailyn Leerani BRAZING FURNACE OPERATOR Work Phone: [facility] Start: 11-16-2024 End: 11-16-2024 Clinisync Result Encounter Azul Leerani BRAZING FURNACE OPERATOR Work Phone: [facility] Unsolicited Start: 11-16-2024 End: 11-16-2024 Patient encounter procedure Azul Leerani BRAZING FURNACE OPERATOR Work Phone: [facility] Comment on above: Encounter for subseq uent annual wellness visit (AWV) in Medicare patient (Primary Dx); Centrilobular emphysema (CMS/HCC); Cerebrovascular accident (CVA), unspecified mechanism (CMS/HCC); Bilateral carotid artery stenosis; Overweight (BMI 25.0-29.9); Depression with anxiety; COPD with acute exacerbation (CMS/HCC) Start: 11-16-2024 End: 11-16-2024 ambulatory AZUL LEIDYMaxMERYZ Not Available Start: 10-22-2024 End: 10-22-2024 Clinisync Result Encounter Generic External Data Provider [facility] Unsolicited Start: 10-22-2024 End: 10-22-2024 Clinisync Result Encounter Generic External Data Provider [facility] Unsolicited Start: 09-06-2024 End: 09-07-2024 Clinisync Result Encounter Azul Damien BRAZING FURNACE OPERATOR Work Phone: [facility] Unsolicited Start: 09-06-2024 End: 09-07-2024 Clinisync Result Encounter Azul Leerani BRAZING FURNACE OPERATOR Work Phone: [facility] Unsolicited Start: 08-16-2024 End: 08-16-2024 Bamboo flowsheet Azul Quezada BRAZING FURNACE OPERATOR Work Phone: [facility] Start: 08-16-2024 End: 08-16-2024 Bamboo flowsheet Azul Quezada BRAZING FURNACE OPERATOR Work Phone: [facility] Start: 08-16-2024 End: 08-16-2024 Office outpatient visit 25 minutes Azul Quezada BRAZING FURNACE OPERATOR Work Phone: [facility] Comment [...] Start: 06-02-2024 End: 06-02-2024 Refill Azul Quezada BRAZING FURNACE OPERATOR Work Phone: [facility] Comment on above: Depression with anxi ety; Insomnia, unspecified; Mixed hyperlipidemia (CMS/HCC) Start: 06-01-2024 End: 06-01-2024 Orders Only Azul Quezada BRAZING FURNACE OPERATOR Work Phone: [facility] Comment on above: Rising PSA level (Pr imary Dx) Start: 05-31-2024 End: 05-31-2024 Clinisync Result Encounter Azul Quezada BRAZING FURNACE OPERATOR Work Phone: [facility] Unsolicited Start: 05-31-2024 End: 05-31-2024 Clinisync Result Encounter Azul Quezada NP Work Phone: [facility] Unsolicited Start: 05-31-2024 End: 05-31-2024 Patient encounter procedure Ibeth Argueta DO Work Phone: [facility] Comment on above: Screening for malign ant neoplasm of colon (Primary Dx) Start: 05-31-2024 End: 05-31-2024 ambulatory IBETH ARGUETA Not Available Start: 05-19-2024 End: 05-19-2024 Bamboo flowsheet Azul Quezada BRAZING FURNACE OPERATOR Work Phone: [facility] Start: 05-19-2024 End: 05-19-2024 Bamboo flowsheet Azul Quezada BRAZING FURNACE OPERATOR Work Phone: [facility] Start: 05-19-2024 End: 05-19-2024 Office outpatient visit 25 minutes Azul Quezada NP Work Phone: [facility] Comment on above: Depression with anxi ety (Primary Dx); Screening for prostate cancer; Smoker; Mixed hyperlipidemia (CMS/HCC); Sessile colonic polyp; Centrilobular emphysema (CMS/HCC); Bilateral carotid artery stenosis; Right hand pain Start: 01-14-2024 End: 03-11-2024 Telephone encounter Grace Moore RN [facility] Start: 11-13-2023 Patient encounter procedure Azul Quezada NP Work Phone: [facility] Start: 10-30-2023 End: 10-30-2023 Office outpatient visit 15 minutes Azul Quezada NP Work Phone: [facility] Comment on above: Influenza (Primary D x); Marijuana abuse; Smoker; BMI 26.0-26.9,adult; Centrilobular emphysema (CMS/HCC) Start: 10-21-2023 Clinisync Result Encounter Gen lisa External Data Provider [facility] Unsolicited Start: 10-21-2023 Clinisync Result Encounter Gen lisa External Data Provider [facility] Unsolicited Start: 09-25-2022 End: 09-25-2022 ambulatory [employer] FABRICATOR TRIMMER AZUL LEIDYMaxMERYMichele Facility:[facility] Start: 04-16-2022 End: 04-17-2022 ambulatory JAMESON WHITE Facility:[facility] Start: 04-10-2022 End: 04-11-2022 ambulatory JAMESON WHITE Facility:[facility] Start: 03-06-2022 End: 03-07-2022 ambulatory ZANE LEEMERYMichele Facility:[facility] Procedures Date Procedure Procedure Detail Performing Clinician Start: 11-16-2024 XR CHEST 2V Azul Zain celeste BRAZING FURNACE OPERATOR Work Phone: Start: 10-22-2024 ALL HEMOGLOBIN Generic External Data Provider Start: 09-06-2024 PSA TOTAL+% FREE Azul A primo BRAZING FURNACE OPERATOR Work Phone: Start: 07-06-2024 ALL CBC WITH AUTO DIFF Generic External Data Provider Start: 06-15-2024 Colonoscopy Generic Pr ovider Start: 05-31-2024 TBH UA (CLEAN/CATCH) MICROSCOPIC IF INDICATE Azul Quezada BRAZING FURNACE OPERATOR Work Phone: Start: 10-21-2023 BLOOD CULTURE 2 Generic External Data Provider Start: 10-21-2023 BLOOD CULTURE 1 Generic External Data Provider Start: 03-06-2022 PSA screening JAMESON VU [facility] Comment on above: Performed By: #### P [facility] #### [facility] [address] [place] [address] Dr. Tom Dotson Start: 02-07-2022 Adult depression scr eening assessment Grace Moore RN Plan of Treatment Date Care Activity Detail Author Start: 06-15-2029 Screening for malign ant neoplasm of colon [facility] Start: 11-21-2025 End: 11-21-2025 Patient encounter procedure 11/21/2025 4:30 PM EST Office Visit [facility] [address] [place] [address] Azul Quezada NP [address] [place] [phone] [facility] Start: 11-16-2025 Medicare Annual Well ness (AWV) Medicare Annual Wellness (AWV) [facility] Start: 07-18-2025 End: 07-18-2025 Patient encounter procedure 07/18/2025 1:20 PM EDT Office Visit [facility] [address] [place] [phone] Azul Quezada, BRAZING FURNACE OPERATOR [address] [place] [phone] [facility] Start: 2025 Influenza vaccination Influenza Vacc ine (#1) [facility] Start: 05-17-2025 End: 05-17-2025 Patient encounter procedure 05/17/2025 3:20 PM EDT Office Visit [facility] [address] [place] [phone] Azul Quezada, BRAZING FURNACE OPERATOR [address] [place] [phone] Tourette's (Primary Dx); Centrilobular emphysema (HCC); Bilateral carotid artery stenosis; Rising PSA level; Mixed hyperlipidemia ; Depression with anxiety; Former smoker; Elevated glucose [facility] Comment on above: Tourette's (Primary Dx); Centrilobular emphysema (HCC); Bilateral carotid artery stenosis; Rising PSA level; Mixed hyperlipidemia ; Depression with anxiety; Former smoker; Elevated glucose Start: 05-17-2025 End: 05-17-2026 Comprehensive metabolic 2000 panel - Serum or Plasma Comprehensive metabolic panel Lab Routine Mixed hyperlipidemia Elevated glucose Expected: 05/17/2025 (Approximate), Expires: 05/17/2026 [facility] Comment on above: Expected: 05/17/2025 (Approximate), Expires: 05/17/2026 Start: 05-17-2025 End: 05-17-2026 Hemoglobin A1c/Hemoglobin.total in Blood Hemoglobin A1c Lab Routine Elevated glucose Expected: 05/17/2025 (Approximate), Expires: 05/17/2026 [facility] Comment on above: Expected: 05/17/2025 (Approximate), Expires: 05/17/2026 Start: 05-17-2025 End: 05-17-2026 Lipid 1996 panel - Serum or Plasma Lipid panel Lab Routine Mixed hyperlipidemia Expected: 05/17/2025 (Approximate), Expires: 05/17/2026 [facility] Comment on above: Expected: 05/17/2025 (Approximate), Expires: 05/17/2026 Start: 05-17-2025 End: 05-17-2026 PSA, total and free PSA, total and free Lab Routine Rising PSA level Expected: 05/17/2025 (Approximate), Expires: 05/17/2026 [facility] Work Phone: Comment on above: Expected: 05/17/2025 (Approximate), Expires: 05/17/2026 Start: 05-17-2025 End: 05-17-2026 Thyrotropin [Units/volume] in Serum or Plasma TSH Lab Routine Depression with anxiety Expected: 05/17/2025 (Approximate), Expires: 05/17/2026 [facility] Comment on above: Expected: 05/17/2025 (Approximate), Expires: 05/17/2026 Start: 05-17-2025 End: 05-17-2026 Urinalysis complete panel - Urine Urinalysis with reflex microscopic (clean catch) Lab Routine Former smoker Expected: 05/17/2025 (Approximate), Expires: 05/17/2026 [facility] Comment on above: Expected: 05/17/2025 (Approximate), Expires: 05/17/2026 Start: 05-17-2025 End: 05-17-2026 XR Hip - right 3 Views XR hip right 2 or 3 views Imaging Routine Pain of right hip Expected: 05/17/2025, Expires: 05/17/2026 [facility] Comment on above: Expected: 05/17/2025 , Expires: 05/17/2026 Start: 02-15-2025 End: 02-15-2025 Patient encounter procedure [facility] Comment on above: Cerebrovascular acci dent (CVA), unspecified mechanism (CMS/HCC) (Primary Dx); Overweight (BMI 25.0-29.9); Depression with anxiety; Centrilobular emphysema (CMS/HCC) Start: 11-16-2024 End: 11-16-2024 Patient encounter procedure [facility] Comment on above: Cerebrovascular acci dent (CVA), unspecified mechanism (CMS/HCC) (Primary Dx); Centrilobular emphysema (CMS/HCC); Bilateral carotid artery stenosis; Overweight (BMI 25.0-29.9); Depression with anxiety; Encounter for subsequent annual wellness visit (AWV) in Medicare patient Start: 11-16-2024 End: 11-16-2025 XR Chest 2 Views XR chest 2 views Imaging Routine COPD with acute exacerbation (CMS/HCC) Expected: 11/16/2024 (Approximate), Expires: 11/16/2025 [facility] Work Phone: Comment on above: Expected: 11/16/2024 (Approximate), Expires: 11/16/2025 Start: 11-13-2024 Medicare Annual Well ness (AWV) Medicare Annual Wellness (AWV) [facility] Start: 08-16-2024 End: 08-16-2024 Patient encounter procedure [facility] Comment on above: Primary insomnia (Pr imary Dx); Cerebrovascular accident (CVA), unspecified mechanism (CMS/HCC); Centrilobular emphysema (CMS/HCC); Bilateral carotid artery stenosis; Sessile colonic polyp; Smoker; Depression with anxiety Start: 08-04-2024 Screening for malign ant neoplasm of colon [facility] Start: 06-01-2024 End: 06-01-2025 PSA, total and free PSA, total and free Lab Routine Rising PSA level Expected: 06/01/2024 (Approximate), Expires: 06/01/2025 [facility] Work Phone: Comment on above: Expected: 06/01/2024 (Approximate), Expires: 06/01/2025 Start: 2024 Influenza vaccination N [facility] Start: 05-19-2024 End: 05-19-2025 CBC W Auto Differential panel - Blood CBC and differential Lab Routine Smoker Expected: 05/19/2024 (Approximate), Expires: 05/19/2025 [facility] Work Phone: Comment on above: Expected: 05/19/2024 (Approximate), Expires: 05/19/2025 Start: 05-19-2024 End: 05-19-2025 Comprehensive metabolic 2000 panel - Serum or Plasma Comprehensive metabolic panel Lab Routine Depression with anxiety Mixed hyperlipidemia (CMS/HCC) Expected: 05/19/2024 (Approximate), Expires: 05/19/2025 [facility] Comment on above: Expected: 05/19/2024 (Approximate), Expires: 05/19/2025 Start: 05-19-2024 End: 05-19-2025 Lipid 1996 panel - Serum or Plasma Lipid panel Lab Routine Mixed hyperlipidemia (CMS/HCC) Expected: 05/19/2024 (Approximate), Expires: 05/19/2025 [facility] Comment on above: Expected: 05/19/2024 (Approximate), Expires: 05/19/2025 Start: 05-19-2024 End: 05-19-2024 Patient encounter procedure 05/19/2024 2:00 PM EDT Office Visit [facility] [address] [place] [address] Azul Quezada NP [address] [place] [address] Screening for prostate cancer (Primary Dx); Smoker; Depression with anxiety; Mixed hyperlipidemia (CMS/HCC) [facility] Comment on above: Screening for prosta te cancer (Primary Dx); Smoker; Depression with anxiety; Mixed hyperlipidemia (CMS/HCC) Start: 05-19-2024 End: 05-19-2025 Prostate specific Ag [Mass/volume] in Serum or Plasma PSA Lab Routine Screening for prostate cancer Expected: 05/19/2024 (Approximate), Expires: 05/19/2025 [facility] Comment on above: Expected: 05/19/2024 (Approximate), Expires: 05/19/2025 Start: 05-19-2024 End: 05-19-2025 Urinalysis complete panel - Urine Urinalysis with reflex microscopic (clean catch) Lab Routine Smoker Expected: 05/19/2024 (Approximate), Expires: 05/19/2025 [facility] Comment on above: Expected: 05/19/2024 (Approximate), Expires: 05/19/2025 Start: 03-21-2024 Influenza vaccination Influenza Vacc ine (#1) [facility] Comment on above: Postponed from 05/23 (Patient Refused) Start: 01-14-2024 End: 01-13-2025 US Carotid arteries - bilateral Vas carotid duplex bilateral Vascular Ultrasound Routine Internal carotid artery stenosis, right Expected: 01/14/2024, Expires: 01/13/2025 [facility] Work Phone: Comment on above: Expected: 01/14/2024 , Expires: 01/13/2025 Start: 11-13-2023 End: 11-13-2023 Patient encounter procedure 11/13/2023 9:40 AM EST Office Visit [facility] [address] [place] [address] Azul Quezada, BRAZING FURNACE OPERATOR [address] [place] [id number] [facility] Start: 10-30-2023 End: 10-30-2023 Patient encounter procedure 10/30/2023 10:00 AM EST Office Visit [facility] [address] [place] [address] Azul Quezada, BRAZING FURNACE OPERATOR [address] [place] [phone] [facility] Start: 2023 Influenza vaccination Influenza Vacc ine (#1) [facility] Start: 03-08-2023 Adult BMI Screening Adult BMI Screen ing [facility] Start: 03-08-2023 Tobacco Screening Tobacco Screening [facility] Start: 02-07-2023 Depression Screening Depression Scre ening [facility] Start: 2010 Administration of varicella zoster vaccine Zoster (Shingles) Vaccine (1 of 2) [facility] Start: 1979 DTaP,Tdap and Td Vac cines (1 - Tdap) DTaP,Tdap and Td Vaccines (1 - Tdap) [facility] Start: 1960 Medicare Annual Well ness (AWV) Medicare Annual Wellness (AWV) [facility] Start: 1960 Screening for malign ant neoplasm of colon [facility] Start: 1960 Screening for malign ant neoplasm of lung Lung Cancer Screening Shared Decision Making [facility] BLOOD CULTURE 1 BLOOD CULTURE 1 Lab Routine 10/21/2023 12:27 PM EST [facility] BLOOD CULTURE 2 BLOOD CULTURE 2 Lab Routine 10/21/2023 12:30 PM EST [facility] Immunizations Immunization Date Immunization Notes Care Provider Fa cility 08-30-2024 ABRYSVO - Respirator y syncytial virus (RSV), vaccine, bivalent, protein subunit RSV prefusion F, diluent reconstituted, 0.5 mL, PF Azul Aichholz BRAZING FURNACE OPERATOR Work Phone: [facility] 08-16-2024 Influenza, injectabl e, Madin Marjan Canine Kidney, preservative free, quadrivalent Azul Aichholz BRAZING FURNACE OPERATOR Work Phone: [facility] 08-16-2024 influenza virus vaccine, unspecified formulation Azul Aichholz BRAZING FURNACE OPERATOR Work Phone: [facility] 2020 influenza, live, intranasal, quadrivalent Azul Aichholz BRAZING FURNACE OPERATOR Work Phone: [facility] 2020 influenza virus vaccine, unspecified formulation Generic Provider [facility] 08-04-2019 influenza, high dose seasonal, preservative-free Azul Aichholz BRAZING FURNACE OPERATOR Work Phone: [facility] 07-05-2015 influenza, injectabl e, quadrivalent, preservative free Azul Aichholz BRAZING FURNACE OPERATOR Work Phone: [facility] 07-05-2015 influenza virus vaccine, unspecified formulation Grace Moore RN [facility] Payers Date Payer Category Payer Medicaid [place] ED[place] [id number] 2019-Present [phone] [address] [place] [address] [id number] 1993 Medicare [id number] 1993 Medicare [id number] 1960 Unknown [id number] 1960 Unknown [id number] 1960 Unknown [id number] 1960 Unknown [id number] 1960 Unknown [id number] 1960 Unknown [id number] 1960 Unknown [id number] 1960 Unknown [id number] 1960 Unknown [id number] 1959 Medicaid [id number] 1959 Unknown [id number] Social History Date Type Detail Facility Tobacco smoking stat [facility] Tobacco smoking consumption unknown [facility] Start: 1960 Sex Assigned At Not on file [facility] Start: 10-30-2023 End: 11-13-2023 Gender identity Not on file [facility] Start: 10-30-2023 Tobacco smoking status DCIS Ex-smoker [facility] Start: 03-22-1984 End: 03-22-2019 History of tobacco use Current smoker [facility] Start: 03-22-1984 End: 03-22-2019 History of tobacco use Cigarette Smoker [facility] Start: 10-30-2023 End: 11-13-2023 Cigarettes smoked current (pack per day) - Reported 1 [facility] Start: 02-08-2021 End: 10-30-2023 Tobacco use and exposure Smokeless tobacco non-user [facility] Start: 10-30-2023 End: 05-17-2025 Alcohol intake Current drinker of alcohol (finding) [facility] Start: 10-28-2023 Alcohol Comment coffee more than 4 cups per day [facility] Within the last year , have you been afraid of your partner or ex-partner? No [facility] Do you belong to any clubs or organizations such as baptist groups, unions, fraAnpath Group or athletic groups, or school groups? Yes [facility] Are you now , , , , never or living with a partner? [facility] How often to you hav e a drink containing alcohol? Never [facility] How many standard dr inks containing alcohol do you have on a typical day? Patient does not drink [facility] Do you feel stress - tense, restless, nervous, or anxious, or unable to sleep at night because your mind is troubled all the time - these days [OSQ] Only a little [facility] (I/We) worried wheth er (my/our) food would run out before (I/we) got money to buy more. Never true [facility] Start: 02-08-2021 Tobacco smoking status NHIS Smokes tobacco daily [facility] Start: 03-08-2022 Alcoholic beverage intake Ex-drinker (finding) [facility] Are you now , , , , never or living with a partner? Living with partner [facility] How often to you hav e a drink containing alcohol? Monthly or less [facility] Do you feel stress - tense, restless, nervous, or anxious, or unable to sleep at night because your mind is troubled all the time - these days [OSQ] Not at all [facility] Start: 12-21-2020 Tobacco Comment quit 4 days ago as of 12/21/20 [facility] Medical Equipment Procedure Code Equipment Code Equipment Origin al Text Equipment Identifier Dates Stnt Vsc 8/6mm 6 fr 30mm 135cm - [id number] Start: 06-12-2020 Goals Date Patient Goal Desired Activity /State Personal health goal Comment on above: Formatting of this n ote might be different from the original. Evaluation of progress towards goal: Return home with self care and family support. Clinical Notes 10-30-2023 to 05-17-2025 Azul Quezada NP - 05/17/2025 5:24 PM EDTHRACHEL GRECO - 05/17/2025 3:20 PM Yunior Quezada NP - 05/17/2025 3:20 PM Yunior Quezada NP - 05/17/2025 6:56 AM EDTPatient Instructions Note Date & Type Note Facility 05-17-2025 History of Presen t illness Narrative Associated Problem(s): Pain of right hip Check xray and go from there Request for [facility] pulmonology 02 at 2L aat Pt uses [...] tightness [facility] [place] Images from the original note were not included. Sam Kramer is a 64 y.o. male presents with chief complaint of Hospital Follow-up HPI: TCM fu: COPD exacerbation Admitted to [facility], sent home atb, steroids, oxygen Is feeling [...] (HCC) COVID-19 07/2019 CVA (cerebral vascular accident) ([facility]) Degenerative cervical disc Depression with anxiety Insomnia Marijuana abuse 10/30/2023 Multiple pulmonary nodules Neck mass 2014 Osteoarthritis Papule of skin 11/13/2023 Pigmented skin lesion of uncertain nature Rheumatic fever Stroke (HCC) 07/2020 Testicle lump Tourette's Vertebral artery occlusion Vocal cord polyp Past Surgical History: Procedure Laterality Date ADENOIDECTOMY CAROTID STENT Right 09/2019 stent, RT carotid CT GUIDED TRANSVAGINAL TRANSRECTAL FLUID DRAIN 06/09/2020 CT GUIDED TRANSVAGINAL TRANSRECTAL FLUID DRAIN 06/09/2020 OTHER SURGICAL HISTORY Removal of Polyp Vocal area and Vocal Cord cyst HI EXCISION THYROGLOSSAL DUCT CYST/SINUS Procedure:DL, e/o thyroglossal duct cyst;Disease:neck mass TONSILLECTOMY family history includes Asthma in his mother; Diabetes in his mother; Heart attack in his father; Hypertension in his mother. OBJECTIVE: Visit Vitals BP 124/76 (BP Location: Left arm, Patient Position: Sitting, BP Cuff Size: Adult long) Pulse 84 Temp 97.8 F (Temporal) Resp 24 Wt 211 lb 3.2 oz SpO2 94% BMI 27.86 kg/m Smoking Status Former BSA 2.22 m Physical Exam Vitals and nursing note [...] for this Centrilobular emphysema (HCC) Was established skilled nursing with dr white, now needs a new physical therapy teacher and needs a referral to [facility] Chest [...] XR hip right 2 or 3 views Associated Problem(s): Depression with anxiety Current med: fluoxetine Associated Problem(s): Bilateral carotid artery stenosis Cont with vascular Asa, statin therapy Associated Problem(s): Centrilobular emphysema (HCC) Was established skilled nursing with dr white, now needs a new physical therapy teacher and needs a referral to [facility] Chest CT 09/14 new lung masses Current meds: albuterol, Ensifentrine, symbicort, spiriva respimat Associated Problem(s): Terry's No current med use for this documented in this encounter [facility] 05-17-2025 Instructions Azul Quezada NP - 05/17/2025 3:20 PM EDT Refer to dr jansen lung doctor Thuy Rai xray hip documented in this encounter [facility] 02-15-2025 History of Presen t illness Narrative [...] as he feels this could result in skilled nursing damage to his lungs SUBJECTIVE: MEDICATIONS: Current [...] artery stenosis Calcified lymph nodes Centrilobular emphysema ([facility]) COVID-19 07/2019 CVA (cerebral vascular accident) ([facility]) Degenerative cervical disc Depression with anxiety Insomnia Marijuana abuse 10/30/2023 Multiple pulmonary nodules Neck mass 2014 Osteoarthritis Papule of skin 11/13/2023 Pigmented skin lesion of uncertain nature Rheumatic fever Stroke ([facility]) 07/2020 Testicle lump Tourette's (CMS/HCC) Vertebral artery occlusion Vocal cord polyp Past Surgical History: Procedure Laterality Date ADENOIDECTOMY CAROTID STENT Right 09/2019 stent, RT carotid CT GUIDED TRANSVAGINAL TRANSRECTAL FLUID DRAIN 06/09/2020 CT GUIDED TRANSVAGINAL TRANSRECTAL FLUID DRAIN 06/09/2020 OTHER SURGICAL HISTORY Removal of Polyp Vocal area and Vocal Cord cyst HI EXCISION THYROGLOSSAL DUCT CYST/SINUS Procedure:DL, e/o thyroglossal [...] with pulmonology Continue with inhaler Chest CT 12/24 new lung masses Depression with anxiety Current [...] directed by neurology documented in this encounter [facility] 02-15-2025 Instructions Azul Quezada NP - 02/15/2025 1:40 PM EDT Return the patient assistance medication forms and we can try to help you get the medications (inhaler) documented in this encounter [facility] 11-16-2024 History of Presen t illness Narrative Associated Problem(s): COPD with acute exacerbation (CMS/HCC) Add atb, steroids, check cxr Pt needs to get in touch with dr white If resp condition worsens go to the ER Pt has been sick with bronchitis since last week. Pt is very sob, wheezing, tightness in the chest, fatigue, pt has been using his nebulizer every 4hrs. Pt has not been to work since last Friday. Pt would like to be off work indefinitely. Lungs hurt pain 5-6 Can't breath, next ct is not til november Pt had chest pains yesterday with [...] Can't breath, next ct is not til november Pt had chest pains yesterday with [...] (CMS/HCC) COVID-19 07/2019 CVA (cerebral vascular accident) (CMS/HCC) Degenerative cervical disc Depression with anxiety Insomnia Marijuana abuse 10/30/2023 Multiple pulmonary nodules Neck mass 2014 Osteoarthritis Papule of skin 11/13/2023 Pigmented skin lesion of uncertain nature Rheumatic fever Stroke (CMS/HCC) 07/2020 Testicle lump Tourette's (CMS/HCC) Vertebral artery occlusion Vocal cord polyp Past Surgical History: Procedure Laterality Date ADENOIDECTOMY CAROTID STENT Right 09/2019 stent, RT carotid CT GUIDED TRANSVAGINAL TRANSRECTAL FLUID DRAIN 06/09/2020 CT GUIDED TRANSVAGINAL TRANSRECTAL FLUID DRAIN 06/09/2020 OTHER SURGICAL HISTORY Removal of Polyp Vocal area and Vocal Cord cyst HI EXCISION THYROGLOSSAL DUCT CYST/SINUS Procedure:DL, e/o thyroglossal [...] directed by neurology documented in this encounter [facility] 11-16-2024 Instructions Azul Quezada NP - 11/16/2024 2:00 PM EST Get back into see dr white No dose changes in your meds Chest xray documented in this encounter [facility] 08-16-2024 History of Presen t illness [...] (CMS/HCC) COVID-19 07/2019 CVA (cerebral vascular accident) ([facility]) Degenerative cervical disc Depression with anxiety Insomnia Marijuana abuse 10/30/2023 Multiple pulmonary nodules Neck mass 2014 Osteoarthritis Papule of skin 11/13/2023 Pigmented skin lesion of uncertain nature Rheumatic fever Stroke ([facility]/HCC) 07/2020 Testicle lump Tourette's ([facility]) Vertebral artery occlusion Vocal cord polyp Past Surgical History: Procedure Laterality Date ADENOIDECTOMY CAROTID STENT Right 09/2019 stent, RT carotid CT GUIDED TRANSVAGINAL TRANSRECTAL FLUID DRAIN 06/09/2020 CT GUIDED TRANSVAGINAL TRANSRECTAL FLUID DRAIN 06/09/2020 OTHER SURGICAL HISTORY Removal of Polyp Vocal area and Vocal Cord cyst HI EXCISION THYROGLOSSAL DUCT CYST/SINUS Procedure:DL, e/o thyroglossal [...] Relevant Orders Flu vaccine, MDCK, quadrivalent, PF ([id number]) (Flucelvax single dose syringe) (Completed) Former smoker [...] Continue with trazodone documented in this encounter [facility] 08-16-2024 Instructions Azul Quezada NP - 08/16/2024 1:20 PM EST Great job at quitting smoking Keep follow up with dr white as directed Follow up with Vascular doctor in [place] as well as directed documented in this encounter [facility] 05-31-2024 History of Presen t illness [...] artery stenosis Calcified lymph nodes Centrilobular emphysema ([facility]) COVID-19 07/2019 CVA (cerebral vascular accident) ([facility]) Degenerative cervical disc Depression with anxiety Insomnia Marijuana abuse 10/30/2023 Multiple pulmonary nodules Neck mass 2013 Osteoarthritis Papule of skin 11/13/2023 Pigmented skin lesion of uncertain nature Rheumatic fever Stroke ([facility]) 07/2020 Testicle lump Tourette's ([facility]) Vertebral artery occlusion Vocal cord polyp [...] Polyp Vocal area and Vocal Cord cyst HI EXCISION THYROGLOSSAL DUCT CYST/SINUS Procedure:DL, e/o thyroglossal [...] Polyp Vocal area and Vocal Cord cyst HI EXCISION THYROGLOSSAL DUCT CYST/SINUS Procedure:DL, e/o thyroglossal [...] Partha Argueta DO documented in this encounter [facility] 05-19-2024 History of Presen t illness [...] artery stenosis Calcified lymph nodes Centrilobular emphysema ([facility]) COVID-19 07/2019 CVA (cerebral vascular accident) ([facility]) Degenerative cervical disc Depression with anxiety Insomnia Marijuana abuse 10/30/2023 Multiple pulmonary nodules Neck mass 2014 Osteoarthritis Papule of skin 11/13/2023 Pigmented skin lesion of uncertain nature Rheumatic fever Stroke ([facility]) 07/2020 Testicle lump Tourette's ([facility]) Vertebral artery occlusion Vocal cord polyp Past Surgical History: Procedure Laterality Date ADENOIDECTOMY CAROTID STENT Right 09/2019 stent, RT carotid CT GUIDED TRANSVAGINAL TRANSRECTAL FLUID DRAIN 06/09/2020 CT GUIDED TRANSVAGINAL TRANSRECTAL FLUID DRAIN 06/09/2020 OTHER SURGICAL HISTORY Removal of Polyp Vocal area and Vocal Cord cyst HI EXCISION THYROGLOSSAL DUCT CYST/SINUS Procedure:DL, e/o thyroglossal [...] at this time documented in this encounter [facility] 01-14-2024 Miscellaneous Notes Per January 2024 recall, patient is due for routine CUS imaging per Dr. Terrell. Please call to remind patient and provide central scheduling number if needed. Will call with results once completed. Called patient, call went to but inbox was full and fiction writer was unable to leave message reminder [...] if he could have it done in [place] at the [facility] facility there because he doesn't have a car and stated it would be impossible for him to make it to [place]. Furnace Checker confirmed patient had central scheduling phone number to get the scans scheduled. Called patient and got VM but it was full so fiction writer was unable to leave message reminding patient of imaging that is due. Attempted to call patient and got voicemail but fiction writer was unable to leave message due to it being full. Will try again later and send letter with order via mail. Attempted to call patient and got voicemail but fiction writer was unable to leave message due to it being full. Letter and order mailed to address on file. Will follow up in 1 month. Attempted to call patient and got voicemail but fiction writer was unable to leave message due to it being full. documented in this encounter [facility] 01-14-2024 Telephone encounter Note Per January 2024 recall, patient is due for routine CUS imaging per Dr. Terrell. Please call to remind patient and provide central scheduling number if needed. Will call with results once completed. [facility] 01-14-2024 Telephone encounter Note Called patient, call went to but inbox was full and fiction writer was unable to leave message reminder for imaging. Will try again later. [facility] 01-14-2024 Telephone encounter Note Received call today 01/14/24 1:05 from patient in regard to previous message and I informed him of clinical staff's messages below - he voiced understanding and I provided him with Central Scheduling phone# to schedule imaging. [facility] 01-14-2024 Telephone encounter Note Called patient and reminded of imaging that is due. He stated understanding and asked if he could have it done in [place] at the [facility] facility there because he doesn't have a car and stated it would be impossible for him to make it to [place]. Furnace Checker confirmed patient had central scheduling phone number to get the scans scheduled. [facility] 01-14-2024 Telephone encounter Note Called patient and got VM but it was full so fiction writer was unable to leave message reminding patient of imaging that is due. [facility] 01-14-2024 Telephone encounter Note Attempted to call patient and got voicemail but fiction writer was unable to leave message due to it being full. Will try again later and send letter with order via mail. [facility] 01-14-2024 Telephone encounter Note Attempted to call patient and got voicemail but fiction writer was unable to leave message due to it being full. Letter and order mailed to address on file. Will follow up in 1 month. [facility] 01-14-2024 Telephone encounter Note Attempted to call patient and got voicemail but fiction writer was unable to leave message due to it being full. [facility] 10-30-2023 History of Presen t illness [...] complaint on file. HPI: Recent hospitalization at [facility] for 3 days d/t influenza. [...] (CMS/HCC) COVID-19 07/2019 CVA (cerebral vascular accident) (CMS/HCC) Degenerative cervical disc Depression with anxiety Insomnia Marijuana abuse 10/30/2023 Multiple pulmonary nodules Neck mass 2014 Osteoarthritis Papule of skin Pigmented skin lesion of uncertain nature Rheumatic fever Stroke ([facility]) 07/2020 Testicle lump Tourette's ([facility]) Vertebral artery occlusion Vocal cord polyp Past Surgical History: Procedure Laterality Date ADENOIDECTOMY CAROTID STENT Right 09/2019 stent, RT carotid CT GUIDED TRANSVAGINAL TRANSRECTAL FLUID DRAIN 06/09/2020 CT GUIDED TRANSVAGINAL TRANSRECTAL FLUID DRAIN 06/09/2020 OTHER SURGICAL HISTORY Removal of Polyp Vocal area and Vocal Cord cyst HI EXCISION THYROGLOSSAL DUCT CYST/SINUS Procedure:DL, e/o thyroglossal [...] remains off work documented in this encounter [facility] Evaluation note Diagnosis Influenza- Primary Influenza with other respiratory manifestations Marijuana abuse Nondependent cannabis abuse, unspecified Smoker Tobacco use disorder BMI 26.0-26.9,adult Centrilobular emphysema (CMS/HCC) documented in this encounter [facility] HealthcareEvaluation note* Diagnosis Influenza- Primary Influenza with [...] stenosis, right- Primary [facility] Diagnosis Influenza- Primary Influenza [...] acute exacerbation (CMS/HCC) documented in this encounter [facility]* Diagnosis Influenza- Primary Influenza with [...] (CMS/HCC) Mixed hyperlipidemia documented in this encounter [facility]* Diagnosis Influenza- Primary Influenza with [...] Tobacco use disorder BMI 26.0-26.9,adult Centrilobular emphysema (HCC) Encounter for subsequent annual wellness visit (AWV) in Medicare patient- Primary Centrilobular emphysema (HCC) Bilateral carotid artery stenosis Occlusion and stenosis of carotid artery without mention of cerebral infarction Depression with anxiety Dysthymic disorder Mixed hyperlipidemia Mixed hyperlipidemia Routine general medical examination at health care facility Routine general medical examination at a health care facility Depression with anxiety- Primary Dysthymic disorder Centrilobular emphysema (HCC) Overweight (BMI 25.0-29.9) Overweight Depression with anxiety- Primary Dysthymic disorder Centrilobular emphysema (HCC) Depression with anxiety- Primary Dysthymic disorder Screening for prostate cancer Special screening for malignant neoplasm of prostate Smoker Tobacco use disorder Mixed hyperlipidemia Mixed hyperlipidemia Sessile colonic polyp Benign neoplasm of colon Centrilobular emphysema (HCC) Bilateral carotid artery stenosis Occlusion and stenosis of carotid artery without mention of cerebral infarction Right hand pain Pain in soft tissues of limb Depression with anxiety- Primary Dysthymic disorder Primary insomnia Persistent disorder of initiating or maintaining sleep Cerebrovascular accident (CVA), unspecified mechanism (HCC) Centrilobular emphysema (HCC) Bilateral carotid artery stenosis Occlusion and stenosis of carotid artery without mention of cerebral infarction Sessile colonic polyp Benign neoplasm of colon Smoker Tobacco use disorder Needs flu shot Need for prophylactic vaccination and inoculation against influenza Former smoker Personal history of tobacco use, presenting hazards to health Insomnia, unspecified Encounter for subsequent annual wellness visit (AWV) in Medicare patient- Primary Centrilobular emphysema (HCC) Cerebrovascular accident (CVA), unspecified mechanism (HCC) Bilateral carotid artery stenosis Occlusion and stenosis of carotid artery without mention of cerebral infarction Overweight (BMI 25.0-29.9) Overweight Depression with anxiety Dysthymic disorder COPD with acute exacerbation (HCC) Depression with anxiety- Primary Dysthymic disorder Cerebrovascular accident (CVA), unspecified mechanism (HCC) Overweight (BMI 25.0-29.9) Overweight Centrilobular emphysema (HCC) Insomnia, unspecified Centrilobular emphysema (HCC)- Primary Tourette's Tourette's disorder Bilateral carotid artery stenosis Occlusion and stenosis of carotid artery without mention of cerebral infarction Rising PSA level Mixed hyperlipidemia Mixed hyperlipidemia Depression with anxiety Dysthymic disorder Former smoker Personal history of tobacco use, presenting hazards to health Elevated glucose Other abnormal glucose Pain of right hip documented in this encounter [facility] HealthcareInstructionsNot on filedocumented in this encounterProCentervilleReason for referral (narrative)* Consultation (Routine) - Pending Review Specialty Diagnoses / Procedures Referred By Demetrius ramirez Referred To Contact General Surgery Diagnoses Sessile colonic polyp Procedures HI OFFICE/OUTPATIENT NEW HIGH MDM 60 MINUTES Azul Quezada NP [address] [place] [address] Ibeth Argueta DO [address] [facility] [address] [place] [address] Referral ID Status Reason Start Date Expiration Date Visits Requested Visits Authorized [id number] Pending Review Specialty Services Required 05/19/2024 11/15/2024 1 1 [facility] Summary Purpose Family History No Family History Records FoundNo Family History Records FoundNo Family History Records Found Advance Directives No Advanced Directives Records FoundNo Advanced Directives Records FoundNo Advanced Directives Records Found Reason for Referral Specialty Diagnoses / Procedures Referred By Demetrius ramirez Referred To Contact Diagnoses Internal carotid artery stenosis, right Procedures Vas carotid duplex bilateral Andrew Terrell MD [address] [facility] [place] [address] Referral ID Status Reason Start Date Expiration Date V isits Requested Visits Authorized [id number] Pending Review 01/14/2024 01/13/2025 1 1 Additional Source Comments (unrecognized sect ion and content) No Status Records FoundNo Status Records FoundNo Status Records Found INFORMATION SOURCE (unrecogn ized section and content) DATE CREATED AUTHOR 09/04/2019 [facility] DATE CREATED AUTHOR AUTHOR'S ORGANIZ ATION 09/30/2022 [facility] DATE CREATED AUTHOR AUTHOR'S ORGANIZ ATION 05/19/2025 [facility] Care Teams (unrecognized sec tion and content) Business Objects Analyst Relationship Specialty Start Date End Date Kiko Zurita MD PCP - General Family Medicine 04/07/23 Azul Quezada NP [address] [place] [address] Referring Physician Nurse Practitioner 04/07/23 Business Objects Analyst Relationship Specialty Start Date End Date Kiko Zurita MD [address] [place] [address] PCP - General Family Medicine 10/24/23 Azul Quezada NP [address] [place] [address] Referring Physician Nurse Practitioner 04/07/23 Business Objects Analyst Relationship Specialty Start Date End Date Kiko Zurita MD [address] [place] [address] PCP - General Family Medicine 10/24/23 Azul Quezada NP [address] [place] [address] Referring Physician Nurse Practitioner 04/07/23 Business Objects Analyst Relationship Specialty Start Date End Date Kiko Zurita MD [address] [place] [address] PCP - General Family Medicine 10/24/23 Azul Quezada NP [address] [place] [address] Referring Physician Nurse Practitioner 04/07/23 Business Objects Analyst Relationship Specialty Start Date End Date Kiko Zurita MD [address] [place] [address] PCP - General Family Medicine 10/24/23 Azul Quezada NP [address] [place] [address] Referring Physician Nurse Practitioner 04/07/23 Business Objects Analyst Relationship Specialty Start Date End Date Kiko Zurita MD [address] [place] [address] PCP - General Family Medicine 10/24/23 Azul Quezada NP [address] [place] [address] Referring Physician Nurse Practitioner 04/07/23 Business Objects Analyst Relationship Specialty Start Date End Date Kiko Zurita MD [address] [place] [address] PCP - General Family Medicine 10/24/23 Azul Quezada NP [address] [place] [address] Referring Physician Nurse Practitioner 04/07/23 Business Objects Analyst Relationship Specialty Start Date End Date Kiko Zurita MD [address] [place] [address] PCP - General Family Medicine 10/24/23 Azul Quezada NP [address] [place] [address] Referring Physician Nurse Practitioner 04/07/23 Business Objects Analyst Relationship Specialty Start Date End Date Kiko Zurita MD [address] [place] [address] PCP - General Family Medicine 10/24/23 Azul Quezada NP [address] [place] [address] Referring Physician Nurse Practitioner 04/07/23 Business Objects Analyst Relationship Specialty Start Date End Date Kiko Zurita MD [address] [place] [address] PCP - General Family Medicine 10/24/23 Azul Quezada NP [address] [place] [address] Referring Physician Nurse Practitioner 04/07/23 Business Objects Analyst Relationship Specialty Start Date End Date Kiko Zurita MD [address] [place] [address] PCP - General Family Medicine 10/24/23 Azul Quezada NP [address] [place] [address] Referring Physician Nurse Practitioner 04/07/23 Business Objects Analyst Relationship Specialty Start Date End Date Azul Quezada, ESTHETICIAN FACIALIST-PLASTIC PARTS FABRICATOR TRIMMER [address] [place] [address] PCP - General Nurse Practitioner 08/30/19 Business Objects Analyst Relationship Specialty Start Date End Date Kiko Zurita MD [address] [place] [address] PCP - General Family Medicine 10/24/23 Azul Quezada NP [address] [place] [address] PCP - ACO Reach 10/29/24 Azul Quezada NP [address] [place] [address] Referring Physician Nurse Practitioner 04/07/23 Business Objects Analyst Relationship Specialty Start Date End Date Kiko Zurita MD [address] [place] [address] PCP - General Family Medicine 10/24/23 Azul Quezada NP [address] [place] [address] PCP - ACO Reach 10/29/24 Azul Quezada NP [address] [place] [address] Referring Physician Nurse Practitioner 04/07/23 Business Objects Analyst Relationship Specialty Start Date End Date Kiko Zurita MD [address] [place] [address] PCP - General Family Medicine 10/24/23 Azul Quezada NP [address] [place] [address] PCP - ACO Reach 10/29/24 Azul Quezada NP [address] [place] [address] Referring Physician Nurse Practitioner 04/07/23 Business Objects Analyst Relationship Specialty Start Date End Date Kiko Zurita MD [address] [place] [address] PCP - General Family Medicine 10/24/23 Azul Quezada NP [address] [place] [address] PCP - ACO Reach 10/29/24 Azul Quezada NP [address] [place] [address] Referring Physician Nurse Practitioner 04/07/23 Business Objects Analyst Relationship Specialty Start Date End Date Kiko Zurita MD [address] [place] [address] PCP - General Family Medicine 10/24/23 Azul Quezada NP [address] [place] [address] PCP - ACO Reach 10/29/24 Azul Quezada NP [address] [place] [address] Referring Physician Nurse Practitioner 04/07/23 Business Objects Analyst Relationship Specialty Start Date End Date Kiko Zurita MD [address] [place] [address] PCP - General Family Medicine 10/24/23 Azul Quezada NP [address] [place] [address] PCP - ACO Reach 10/29/24 Azul Quezada NP [address] [place] [address] Referring Physician Nurse Practitioner 04/07/23 Business Objects Analyst Relationship Specialty Start Date End Date Kiko Zurita MD [address] [place] [address] PCP - General Family Medicine 10/24/23 Azul Quezada NP [address] [place] [address] PCP - ACO Reach 10/29/24 Azul Quezada NP [address] [place] [address] Referring Physician Nurse Practitioner 04/07/23 Business Objects Analyst Relationship Specialty Start Date End Date Kiko Zurita MD [address] [place] [address] PCP - General Family Medicine 10/24/23 Azul Quezada NP [address] [place] [address] PCP - ACO Reach 10/29/24 Azul Quezada NP [address] [place] [address] Referring Physician Nurse Practitioner 04/07/23 Reason for [...] Reason Comments Med Refill Reason Comments COPD Reason Comments Hospital Follow-up FOR RECORDS PERTAINING TO PATIENTS WHO ARE [...] BE BASED ON THE PRIMARY CLINICAL RECORDS. [employer] provides no warranty or guarantee of the accuracy or completeness of information in this document.
--- NOTE | 2025-05-26 12:07 | XR_ITS ---
The [address] [address] Patient Name: JUANITA KRAMER MRN: [id number] date: 1960 Sex: M Assigned Patient Location: LAB Current Patient Location: LAB Accession/Order Number: [id number] Exam Date: 05/26/2025 12:10 Report Date: 05/26/2025 12:41 At the request of: JAYDEN JC NP Procedure: XR hip RT min 2V RIGHT HIP - 2 views: CLINICAL HISTORY: right hip pain. The past 2 months. No injury. COMPARISON: None AP and frog-lateral views were obtained. There is no evidence of fracture or dislocation. The hip joint space is maintained. There is minimal marginal spurring at the periphery of the femoral head. There are no significant soft tissue abnormalities. XR/XR hip RT min 2V IMPRESSION: NO ACUTE BONY FINDINGS. Impression dictated by: Yuli Dunham M.D. 05/26/2025 12:41 PM Dictation Location: [place] [address] Electronically authenticated by: [id number] Y Date: 05/26/2025 12:41
[2025-05-26 12:41] LABS: Alanine Aminotransferase 30 U/L (16-63); Albumin Globulin Ratio 1.0; Albumin Level 3.6 g/dL (3.4-5.0); Alkaline Phosphatase 62 U/L (46-116); Anion Gap 14.0; Aspartate Amino Transferase 19 U/L (15-37); Blood Urea Nitrogen 15.0 mg/dL (7.0-18.0); Calcium 8.6 mg/dL (8.5-10.1); Carbon Dioxide 28.3 mmol/L (21.0-32.0); Chloride 104 mmol/L (98-107); Cholesterol 148 mg/dL (<=200); Estimated GFR (African America >60 (>=60 mL/min/1.73m^2); Estimated GFR (Non-African Ame >60 (>=60 mL/min/1.73m^2); Globulin 3.6 g/dL; Glucose 94 mg/dL (74-106); HDL Cholesterol 59 mg/dL (40-60); Potassium 4.3 mmol/L (3.5-5.1); Sodium 142 mmol/L (136-145); Thyroid Stimulating Hormone 2.231 uIU/mL (0.358-3.740); Total Protein 7.2 g/dL (6.4-8.2); Triglycerides 51 mg/dL (<=150); VLDL CHOLESTEROL 10.2 mg/dL
[2025-05-26 12:45] LABS: Glucose Urine UA NEGATIVE (NEGATIVE)
[2025-05-26 12:55] LABS: Cast Seen? NONE SEEN #/LPF (NONE SEEN); Crystals Seen? None Seen #/HPF (None Seen); Urine Culture Indicated NO
[2025-05-27 04:07] LABS: PSA, Free 0.28 ng/mL
== END 2025-05-26 11:46 | disposition home or self-care (01) ==
LOC: LAB 11:46
PROVIDERS: PCP Nurse Practitioner; Visit Provider Nurse Practitioner
DX: E78.2 Mixed hyperlipidemia (principal); R97.20 Elevated prostate specific antigen [PSA]; R73.09 Other abnormal glucose; Z87.891 Personal history of nicotine dependence; F41.8 Other specified anxiety disorders; M25.551 Pain in right hip
CPT/HCPCS: 36415; 73502; 80053; 80061; 81001; 83036; 84153; 84154; 84443

== ENCOUNTER 2025-07-07 09:50 | Emergency (ER) | payer MEDICARE, SELFPAY ==
--- OUTSIDE RECORDS SUMMARY | 2025-03-10 09:00 | XMS_ITS ---
Author Organization [facility] in [place] Address [address] [place] [address] Care Team Providers Care Chain Hoist Operator Name Role Phone Azul Quezada CNP Primary Care Provider Unavail able Valeriy Boo Unavailable [phone] REASON FOR VISIT 3m F/U - COPD Encounters Encounter Location Date Provider Diagnosis Pulmonary Medicine [place] [address] [place] [address] 03/10/2025 Valeriy Boo Plan Of Treatment No Information Progress Notes * KRAMERSam FARRAR KDOB:[birth year] (65 yo M)Acc No.[id number]:03/10/2025 UNLOCKED PROGRESS NOTE Follow Up Patient: Sam SPEAR Provider: Ale Boo DO :1960 A ge:64 Y S ex:Male Date:03/10/2025 Address:[address] [place] [address] [place], [id number] Pcp:Azul Quezada CNP Subjective: * Chief Complaints: * 1 . 3m F/U - COPD. * Medical History: Objective: * Vitals: Assessment: Plan: * Treatment: * * Electronic signature of Yamilet Boo DO on 07/07/2025 at 12:05 PM EDT Sign off status: Pending Visit Status: R /S By O/P (Rescheduled by Office/Provider) * Provider: Ale Boo DO Date: 0 03/10/2025 Generated for Yoana lazcano/Stanford/Luizaitting on: 1 12:05 PM EDT
[2025-07-07] VITALS (28 sets, daily range): BP systolic 116–147; BP diastolic 66–97; PULSE 88–131; RESP 12; TEMP 37.2; O2SAT 93–100; BMI 24.4
--- NOTE | 2025-07-07 09:51 | XR_ITS ---
The [place] [id number] Patient Name: JUANITA KRAMER MRN: [id number] date: 1960 Sex: M Assigned Patient Location: ED.MAIN Current Patient Location: ED.MAIN Accession/Order Number: [id number] Exam Date: 07/07/2025 10:02 Report Date: 07/07/2025 10:19 At the request of: EFRAIN HAMPTON MD Procedure: XR chest 1V PORTABLE AP ERECT CHEST 05 hours CLINICAL HISTORY: Patient fell at home unresponsive with decreased pulse ox. COMPARISON: 05/09/2025 The right hemidiaphragm is still slightly elevated. The heart is within normal limits. There is no vascular congestion. The lungs are hyperinflated. No developing consolidation is seen. Granulomatous changes are visualized on the right. There is no effusion or pneumothorax. The osseous structures are intact. XR/XR chest 1V IMPRESSION: OBSTRUCTIVE LUNG DISEASE AND GRANULOMATOUS CHANGES. NO ACUTE FINDINGS Impression dictated by: Yuli Dunham M.D. 07/07/2025 10:19 AM Dictation Location: [place] [address] Electronically authenticated by: [id number] Y Date: 07/07/2025 10:19
--- NOTE | 2025-07-07 09:51 | ECG_ITS ---
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 Measurements Intervals [place] Rate: 109 P: -55116 MO: -87979 QRS: 79 QRSD: 80 T: 72 QT: 358 QTc: 422 Interpretive Statements SINUS TACHYCARDIA 3434 Septal myocardial infarction, age undetermined Moderate ST depression 0102 ARTIFACT PRESENT 9150 abnormal ECG Compared to ECG 05/09/2025 02:37:00 Myocardial infarct finding now present ST (T wave) deviation still present Electronically Signed On 07-07-2025 19:54:40 EDT by WALT AMAYA M.D.
[2025-07-07] MEDS: METHYLPREDNISOLONE SOD SUCC PF 125 MG/2 ML VIAL IVP (10:08)
[2025-07-07] MEDS: MAGNESIUM SULFATE IN WATER 2 GM/50 ML PREMIX IV (10:08)
[2025-07-07 10:09] LABS: Hematocrit 43.7 % (42.0-54.0); Hemoglobin 14.0 g/dL (14.0-18.0); Immature Granulocytes Abs Auto 0.06 10^3/uL (0.00-0.03); Immature Granulocytes Pct Auto 0.6 % (0.0-0.5); Lymphocytes Absolute Auto 2.2 10^3/uL (1.2-3.8); Mean Corpuscular HGB Conc 32.0 g/dL (29.9-35.2); Mean Corpuscular Hemoglobin 29.9 pg (25.9-34.0); Mean Corpuscular Volume 93.2 fL (80.0-94.0); Platelet Count 385 10^3/uL (150-450); Red Blood Count 4.69 10^6/uL (4.70-6.10); White Blood Count 10.7 10^3/uL (4.0-11.0)
[2025-07-07 10:09] LABS: Allen Test POSITIVE (POSITIVE); HCO3 ABG 28.5 mmol/L (22.0-26.0); O2 Mode BIPAP; Oxygen Saturation ABG 99.4 %; PO2 ABG 149.0 mmHg (80.0-100.0); Puncture Site RR
[2025-07-07 10:10] LABS: BIPAP Pressure 16/8; Rate 12
[2025-07-07 10:11] LABS: ABG PCO2 56.9 mmHg (35.0-45.0)
[2025-07-07 10:18] LABS: INR 0.97; Prothrombin Time 10.3 sec (9.0-11.6)
[2025-07-07] MEDS: IPRATROPIUM/ALBUTEROL SULFATE 3 ML AMPUL.NEB IH (10:19)
[2025-07-07 10:20] LABS: Alanine Aminotransferase 26 U/L (16-63); Albumin Globulin Ratio 1.0; Albumin Level 3.7 g/dL (3.4-5.0); Alkaline Phosphatase 73 U/L (46-116); Anion Gap 12.9; Aspartate Amino Transferase 19 U/L (15-37); Blood Urea Nitrogen 18.0 mg/dL (7.0-18.0); Calcium 8.9 mg/dL (8.5-10.1); Carbon Dioxide 29.5 mmol/L (21.0-32.0); Chloride 103 mmol/L (98-107); Estimated GFR (African America >60 (>=60 mL/min/1.73m^2); Estimated GFR (Non-African Ame >60 (>=60 mL/min/1.73m^2); Globulin 3.8 g/dL; Glucose 154 mg/dL (74-106); Potassium 4.4 mmol/L (3.5-5.1); Sodium 141 mmol/L (136-145); Total Protein 7.5 g/dL (6.4-8.2)
[2025-07-07 10:23] LABS: Magnesium 2.3 mg/dL (1.8-2.4)
[2025-07-07] MEDS: KETOROLAC TROMETHAMINE 30 MG/ML VIAL IVP (11:03)
--- NOTE | 2025-07-07 11:05 | CT_ITS ---
The [address] [address] Patient Name: JUANITA KRAMER MRN: [id number] date: 1960 Sex: M Assigned Patient Location: ER Current Patient Location: ER Accession/Order Number: [id number] Exam Date: 07/07/2025 11:05 Report Date: 07/07/2025 11:39 At the request of: EFRAIN HAMPTON MD Procedure: CT stroke head/brain wo con CT BRAIN WITHOUT CONTRAST - stroke alert: CLINICAL HISTORY: Altered mental status and left sided weakness COMPARISON: None TECHNIQUE: Contiguous axial unenhanced images were obtained through the brain. This CT exam was performed using one or more following dose reduction techniques: Automated exposure control, adjustment of the mA and/or kV according to patient size, or use of iterative reconstruction technique. FINDINGS: There is minor cortical atrophy. The ventricles are normal in size and position. Mild patchy white matter hypodensity is present suggesting microvascular disease. There are no additional areas of abnormal attenuation. There is no hemorrhage, mass effect or extra-axial collections. The imaged paranasal sinuses and mastoid air cells are clear. There is some carotid siphon and left V4 plaque. CT/CT stroke head/brain wo con IMPRESSION: MINOR ATROPHY AND SUSPECTED SMALL VESSEL ISCHEMIC CHANGES. COMMENT: Findings were discussed with Dr. Hampton at 1137 hours NO DEFINITE ACUTE INTRACRANIAL ABNORMALITY. FOLLOW-UP IS RECOMMENDED, SYMPTOMS WARRANT. Impression dictated by: Yuli Dunham M.D. 07/07/2025 11:39 AM Dictation Location: [place] [address] Electronically authenticated by: [id number] Y Date: 07/07/2025 11:39
[2025-07-07 11:06] LABS: SARS-CoV-2 Ag NEGATIVE (NEGATIVE)
--- NOTE | 2025-07-07 11:14 | CT_ITS ---
The [address] [address] Patient Name: JUANITA KRAMER MRN: [id number] date: 1960 Sex: M Assigned Patient Location: ER Current Patient Location: .MAIN Accession/Order Number: [id number] Exam Date: 07/07/2025 11:05 Report Date: 07/07/2025 12:03 At the request of: EFRAIN HAMPTON MD Procedure: CT angio neck CTA OF THE HEAD AND NECK WITH CONTRAST CLINICAL DATA: Altered mental status and left-sided weakness. COMPARISON: None Spiral images were obtained through the head and neck following 100 mL of Omnipaque 350. Sagittal and coronal MIP as well as 3-D volume rendered reconstructions of the carotid artery and [place] reviewed. Stenosis is evaluated using NASCET criteria. This CT exam was performed using one or more following dose reduction techniques: Automated exposure control, adjustment of the mA and/or kV according to patient size, or use of iterative reconstruction technique. There is atherosclerotic plaque at the aortic arch and proximal great vessels. There is minor luminal narrowing at the origin of the left common carotid artery. There is a hypoplastic tortuous right vertebral artery which enters the transverse foramen at the C3-4 level. The left vertebral artery is more normal caliber and shows no stenosis or dissection. There is mild common carotid artery plaque, without significant associated luminal narrowing. There is also plaque at the carotid bifurcations on both sides and extending into the internal carotid arteries. On the left, there is less than 50% luminal narrowing. On the right, there is approaching 50% luminal narrowing at the origin. An internal carotid artery stent is present on the right and there is a segment of the stent proximally where there is no obvious contrast opacification. There is opacification of the internal carotid artery distal to the stent. There is slight reversal of the normal cervical curvature as well as degenerative changes at the spine. The upper imaged lungs show obstructive disease and mild scarring. The right vertebral artery remains small distally and may terminate as a cerebellar branch. There is minimal V4 plaque on the left, without significant associated stenosis. There is a relatively small basilar artery which is patent. The posterior cerebral arteries are unremarkable and there is origin bilaterally. There is minor carotid siphon plaque, without significant associated luminal narrowing. The anterior and middle cerebral arteries are patent. No focal stenosis or suspected thrombosis is seen. No aneurysms are identified. The dural venous sinuses are patent. CT/CT angio head IMPRESSION: HYPOPLASTIC RIGHT VERTEBRAL ARTERY. CAROTID ATHEROSCLEROTIC DISEASE WITH MILD ASSOCIATED EXTRACRANIAL STENOSIS. RIGHT INTERNAL CAROTID ARTERY STENT WHICH MIGHT HAVE A SEGMENT OF OCCLUSION PROXIMALLY. Impression dictated by: Yuli Dunham M.D. 07/07/2025 12:03 PM Dictation Location: [place] [address] Electronically authenticated by: [id number] Y Date: 07/07/2025 12:03
--- NOTE | 2025-07-07 11:14 | CT_ITS ---
The [address] [address] Patient Name: JUANITA KRAMER MRN: [id number] date: 1960 Sex: M Assigned Patient Location: ER Current Patient Location: .MAIN Accession/Order Number: [id number] Exam Date: 07/07/2025 11:05 Report Date: 07/07/2025 12:03 At the request of: FERAIN HAMPTON MD Procedure: CT angio neck CTA OF THE HEAD AND NECK WITH CONTRAST CLINICAL DATA: Altered mental status and left-sided weakness. COMPARISON: None Spiral images were obtained through the head and neck following 100 mL of Omnipaque 350. Sagittal and coronal MIP as well as 3-D volume rendered reconstructions of the carotid artery and eyak of Fernandez reviewed. Stenosis is evaluated using NASCET criteria. This CT exam was performed using one or more following dose reduction techniques: Automated exposure control, adjustment of the mA and/or kV according to patient size, or use of iterative reconstruction technique. There is atherosclerotic plaque at the aortic arch and proximal great vessels. There is minor luminal narrowing at the origin of the left common carotid artery. There is a hypoplastic tortuous right vertebral artery which enters the transverse foramen at the C3-4 level. The left vertebral artery is more normal caliber and shows no stenosis or dissection. There is mild common carotid artery plaque, without significant associated luminal narrowing. There is also plaque at the carotid bifurcations on both sides and extending into the internal carotid arteries. On the left, there is less than 50% luminal narrowing. On the right, there is approaching 50% luminal narrowing at the origin. An internal carotid artery stent is present on the right and there is a segment of the stent proximally where there is no obvious contrast opacification. There is opacification of the internal carotid artery distal to the stent. There is slight reversal of the normal cervical curvature as well as degenerative changes at the spine. The upper imaged lungs show obstructive disease and mild scarring. The right vertebral artery remains small distally and may terminate as a cerebellar branch. There is minimal V4 plaque on the left, without significant associated stenosis. There is a relatively small basilar artery which is patent. The posterior cerebral arteries are unremarkable and there is origin bilaterally. There is minor carotid siphon plaque, without significant associated luminal narrowing. The anterior and middle cerebral arteries are patent. No focal stenosis or suspected thrombosis is seen. No aneurysms are identified. The dural venous sinuses are patent. CT/CT angio neck IMPRESSION: HYPOPLASTIC RIGHT VERTEBRAL ARTERY. CAROTID ATHEROSCLEROTIC DISEASE WITH MILD ASSOCIATED EXTRACRANIAL STENOSIS. RIGHT INTERNAL CAROTID ARTERY STENT WHICH MIGHT HAVE A SEGMENT OF OCCLUSION PROXIMALLY. Impression dictated by: Yuli Dunham M.D. 07/07/2025 12:03 PM Dictation Location: [place] [address] Electronically authenticated by: [id number] Y Date: 07/07/2025 12:03
--- NOTE | 2025-07-07 11:52 | ED.SOB1 ---
HPI - SOB/Dyspnea General Chief Complaint: Shortness of Breath/Dyspnea Stated Complaint: RESPIRATORY DISTRESS Time Seen by Provider: 07/07/25 09:52 Source: other Source comment: EMS Mode of arrival: ambulance History of Present Illness HPI Narrative: The patient 65-year-old male is brought to us by the EMS because of shortness of breath and respiratory failure, and arrival the patient was found on the floor of his room and short of breath and barely responsive, patient was then placed on CPAP machine and brought to us he was also provided with a breathing treatment in his way here, upon arrival the patient was in respiratory distress he is wearing the CPAP machine. The patient keep repeating ( I cannot breathe) It was also noted after stabilization of the patient that he is favoring the right side and he have a forced gaze only to the right side is moving only his right upper and lower extremity is not moving his left lower extremity and his left upper extremity When I speak with the patient after he was stable he did mention that he has been having this weakness for the last 3 to 4 days although he was also showing some signs of confusion after he mentioned that he saw his sister last night. I could not reach out to his sister but on looking at his phone the patient last time he called his sister was Friday the Related Data Home Medications ?Medication ?Instructions ?Recorded ?Confirmed aspirin 81 mg tablet,delayed 81 mg PO DAILY previous stroke 09/21/23 05/09/25 release atorvastatin 40 mg tablet 40 mg PO .qhs 09/21/23 07/07/25 trazodone 50 mg tablet 50 mg PO .QHS 09/21/23 07/07/25 fluoxetine 20 mg capsule 20 mg PO DAILY 05/09/25 07/07/25 Previous Rx's ?Medication ?Instructions ?Recorded albuterol sulfate 90 mcg/actuation 2 inh inhalation Q4H PRN shortness 05/11/25 aerosol inhaler of breath or wheezing #1 g fluticasone 250 mcg-salmeterol 50 1 inh inhalation BID #60 ea 05/11/25 mcg/dose blistr powdr for inhalation (Advair Diskus) ipratropium 0.5 mg-albuterol 3 mg 3 ml inhalation Q4H PRN shortness 05/11/25 (2.5 mg base)/3 mL nebulization of breath or wheezing #180 mL soln losartan 25 mg tablet 25 mg PO DAILY #30 tabs 05/11/25 Allergies Allergy/AdvReac Type Severity Reaction Status Date / Time bee venom protein (honey bee) Allergy Severe Anaphylaxis Verified 05/09/25 02:29 Review of Systems ROS Status of ROS 10 or more systems reviewed and unremarkable except as noted in history and below [facility] Medical History (Updated 07/07/25 @ 12:33 by Delmis Urena MD) History of common carotid artery stent placement ?Z98.890 - Other specified postprocedural states (ICD-10) ?Z95.828 - Presence of other vascular implants and grafts (ICD-10) 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 - Polyp of vocal cord and larynx (ICD-10) Vertebral artery occlusion ?I65.09 - Occlusion and stenosis of unspecified vertebral artery (ICD-10) Tourette's ?F95.2 - Tourette's disorder (ICD-10) Testicle lump ?N50.89 - Other specified disorders of the male genital organs (ICD-10) Rheumatic fever ?I00 - Rheumatic fever without heart involvement (ICD-10) Pigmented skin lesion of uncertain nature ?L81.9 - Disorder of pigmentation, unspecified (ICD-10) Papule of skin ?R23.8 - Other skin changes (ICD-10) Osteoarthritis ?M19.90 - Unspecified osteoarthritis, unspecified site (ICD-10) Neck mass ?R22.1 - Localized swelling, mass and lump, neck (ICD-10) Multiple pulmonary nodules ?R91.8 - Other nonspecific abnormal finding of lung field (ICD-10) Marijuana abuse ?F12.10 - Cannabis abuse, uncomplicated (ICD-10) Insomnia ?G47.00 - Insomnia, unspecified (ICD-10) Degenerative cervical disc ?M50.30 - Other cervical disc degeneration, unspecified cervical region (ICD-10) CVA (cerebral vascular accident) ?I63.9 - Cerebral infarction, unspecified (ICD-10) COVID-19 ?U07.1 - COVID-19 (ICD-10) Centrilobular emphysema ?J43.2 - Centrilobular emphysema (ICD-10) Calcified lymph nodes ?I89.8 - Other specified noninfective disorders of lymphatic vessels and lymph nodes (ICD-10) Bilateral carotid artery stenosis ?I65.23 - Occlusion and stenosis of bilateral carotid arteries (ICD-10) Allergic rhinitis ?J30.9 - Allergic rhinitis, unspecified (ICD-10) Alcohol abuse ?F10.10 - Alcohol abuse, uncomplicated (ICD-10) Anxiety ?F41.9 - Anxiety disorder, unspecified (ICD-10) Cerebrovascular disease ?I67.9 - Cerebrovascular disease, unspecified (ICD-10) COPD (chronic obstructive pulmonary disease) ?J44.9 - Chronic obstructive pulmonary disease, unspecified (ICD-10) Depression, unspecified ?F32.A - Depression, unspecified (ICD-10) Dyslipidemia ?E78.5 - Hyperlipidemia, unspecified (ICD-10) 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 - Other diseases of vocal cords (ICD-10) Surgical History (Updated 06/08/24 @ 11:14 by Lidia Fontanez) History of vocal cord polypectomy ?Z98.890 - Other specified postprocedural states (ICD-10) H/O adenoidectomy ?Z90.89 - Acquired absence of other organs (ICD-10) History of tonsillectomy ?Z90.89 - Acquired absence of other organs (ICD-10) Family History (Updated 06/15/24 @ 06:35 by Cira Palacio RN) Mother Family history of CHF (congestive heart failure) Family history of COPD (chronic obstructive pulmonary disease) Hypertension Sister Family history of diabetes mellitus Father Family history of cancer Other Family history of myocardial infarction Social History (Updated 05/09/25 @ 06:12 by Silvana Kirkpatrick, [email or web address]) Within the past year, how often did you have a drink containing alcohol: never Within the past year, how often did you have six or more drinks on one occasion: never Score interpretation: A score less than 4 is consistent with normal alcohol consumption. Smoking status: Former smoker Second hand tobacco smoke exposure: No Non-prescribed substance use: cannabis (any form) Previous occupational history: retired Known occupational exposures/hazards: No Highest level of school completed/degree received: high school graduate Are you now , , , , never or living with a partner: living with partner In a typical week, how many times do you talk on the telephone with family, friends, or neighbors: 3 or more times per week How often do you get together with friends or relatives: 3 or more times per week How often do you attend jain or amish services: 1-3 times per year Do you belong to any clubs or organizations such as jain groups unions, fraternal or athletic groups, or school groups: no Total score: 2 Score interpretation: A score of greater than or equal to 2 indicates the lowest level of social isolation. Little interest or pleasure in doing things: not at all Feeling down, depressed, or hopeless: not at all Feel stressed/tense/nervous/anxious/difficulty sleeping: not at all Due to disability, difficulty making decisions: No Do you think of yourself as: straight/heterosexual Gender Identity: male Exam Narrative Exam Narrative: Nurses notes and vital signs reviewed and tachypneic in respiratory distress General: Tachypneic in respiratory distress Skin: Warm, dry, no pallor noted. No rash. Head: Normocephalic, atraumatic. Neck: Supple, non-tender. Eye: Patient is just favoring only the right side when looking his gaze only to the right side Ears, Nose, Mouth, and Throat: TM are clear, no nasal mucosal hypertrophy. Oral mucosa is moist, no posterior oropharynx erythema, uvula is mid-line Cardiovascular: Regular Rate and Rhythm without murmur, gallop or rub. Respiratory: Patient in respiratory distress there is limited air entry to both lungs and the patient have extensive wheezing. Patient only speaking 1 word sentence Back: No midline thoracic or lumbar vertebral tenderness. No CVA tenderness GI: Abdomen is soft, non-distended. Normal bowel sounds. No masses appreciated. No tenderness to palpation. No rebound, guarding, or rigidity noted. Neurological: A&O x4. No cranial nerve dysfunction observed. The patient have a NIH stroke score of 14 on initial assessment Psychiatric: Cooperative and interactive. Normal mood and affect. Constitutional Vital Signs, click to edit/add: Last Vital Signs Temp 98.9 F 07/07/25 12:57 Pulse 95 H 07/07/25 12:46 Resp 23 H 07/07/25 12:46 BP 136/86 07/07/25 12:46 Pulse Ox 98 07/07/25 12:46 O2 Del Method BIPAP 07/07/25 11:57 FiO2 30 07/07/25 10:18 Course Vital Signs Vital signs: Vital Signs Pulse Rate 110 H 07/07/25 09:51 Respiratory Rate 28 H 07/07/25 09:51 Blood Pressure 135/91 07/07/25 09:51 Pulse Oximetry 96 07/07/25 09:51 Oxygen Delivery Method BIPAP 07/07/25 09:51 Temperature 98.9 F 07/07/25 12:57 Pulse Rate 95 H 07/07/25 12:46 Respiratory Rate 23 H 07/07/25 12:46 Blood Pressure 136/86 07/07/25 12:46 Pulse Oximetry 98 07/07/25 12:46 Oxygen Delivery Method BIPAP 07/07/25 11:57 Fraction of Inspired Oxygen 30 07/07/25 10:18 MDM - SOB/Dyspnea MDM Narrative Medical decision making narrative: Upon arrival the patient was in respiratory distress the work was adjustability the patient with moving him from CPAP to BiPAP with a history of COPD The patient had extensive bilateral expiratory wheezes and using his accessory muscle on arrival upon placement of the BiPAP the patient was able to speak in full sentences, he received at least 3 breathing treatments Solu-Medrol and magnesium. Once the patient was stable he was moved to CAT scan to rule out any stroke especially with the patient having left upper and lower extremity weakness that is significant with a forced gaze to the right side The patient did not even realize that he have weakness and when asked to move his left side he is only moving the right the patient does have a history of stroke but it never been documented that he had a history of weakness and he mentioned that he had no history of Significant weakness after his first stroke he also had a carotid stent placement on the right side Does have a history of alcohol use and is not known when the last time he had alcohol drink but he mentioned that he was with his sister last night but I tried reaching out to his sister Dahiana with a #[phone] Eventually the patient sister called and she said that she lives with him and last night at 9:30 PM he was at his baseline he does have some mild weakness on the left side but not as significant as he is presenting today When this morning he was found in the floor she called the ambulance and that when he was brought to us The patient case was discussed with in teleneurology he recommended the patient to be started on low-dose heparin with no bolus and the patient to be transferred to [facility] as soon as possible by air for thrombectomy after the CAT scan angio head and neck shows thrombus possibly in the right side and possible occlusion of the right internal stent. Discussed the plan with the patient he is agreeable to be transferred importance of having the procedure. Repeat ABGs shows improvement Lab Data Labs: Lab Results 07/07/25 07/07/25 07/07/25 Range/Units 09:56 10:03 10:40 WBC 10.7 (4.0-11.0) 10^3/uL RBC 4.69 L (4.70-6.10) 10^6/uL Hgb 14.0 (14.0-18.0) g/dL Hct 43.7 (42.0-54.0) % MCV 93.2 (80.0-94.0) fL MCH 29.9 (25.9-34.0) pg MCHC 32.0 (29.9-35.2) g/dL RDW 12.0 (11.0-15.0) % Plt Count 385 (150-450) 10^3/uL MPV 9.3 L (9.5-13.5) fL Neut % (Auto) 69.5 (43.0-75.0) % Lymph % (Auto) 20.3 L (20.5-60.0) % Grainger % (Auto) 8.1 (1.7-12.0) % Eos % (Auto) 0.2 L (0.9-7.0) % Baso % (Auto) 1.3 (0.2-2.0) % Neut # (Auto) 7.4 H (1.4-6.5) 10^3/uL Lymph # (Auto) 2.2 (1.2-3.8) 10^3/uL Grainger # (Auto) 0.9 H (0.3-0.8) 10^3/uL Eos # (Auto) 0.0 (0.0-0.7) 10^3/uL Baso # (Auto) 0.1 (0.0-0.1) 10^3/uL Abs Immat Gran (auto) 0.06 H (0.00-0.03) 10^3/uL Imm/Tot Granulo (auto) 0.6 H (0.0-0.5) % PT 10.3 (9.0-11.6) sec INR 0.97 APTT 21.4 L (22.3-36.2) sec Puncture Site Rr ABG pH 7.309 L (7.350-7.450) ABG pCO2 56.9 H* (35.0-45.0) mmHg ABG pO2 149.0 H (80.0-100.0) mmHg ABG HCO3 28.5 H (22.0-26.0) mmol/L ABG O2 Saturation 99.4 % ABG Base Excess 2.2 H (-2.0-2.0) mmol/L Brett Test Positive (POSITIVE) Minute Volume 20.6 FiO2 30 % Tidal Volume 736 BiPAP 07/05 Sodium 141 (136-145) mmol/L Potassium 4.4 (3.5-5.1) mmol/L Chloride 103 (98-107) mmol/L Carbon Dioxide 29.5 (21.0-32.0) mmol/L Anion Gap 12.9 BUN 18.0 (7.0-18.0) mg/dL Creatinine 0.95 (0.70-1.30) mg/dL Est GFR ( Amer) >60 (>=60 mL/min/1.73m^2) Est GFR (Non-Af Amer) >60 (>=60 mL/min/1.73m^2) BUN/Creatinine Ratio 18.9 Glucose 154 H (74-106) mg/dL Calcium 8.9 (8.5-10.1) mg/dL Magnesium 2.3 (1.8-2.4) mg/dL Total Bilirubin 0.8 (0.2-1.0) mg/dL AST 19 (15-37) U/L ALT 26 (16-63) U/L Alkaline Phosphatase 73 (46-116) U/L Troponin I High Sens 7.5 (4.0-76.1) pg/mL Total Protein 7.5 (6.4-8.2) g/dL Albumin 3.7 (3.4-5.0) g/dL Globulin 3.8 g/dL Albumin/Globulin Ratio 1.0 Influenza Type A Ag Negative Influenza Type B Ag Negative RSV Antigen Not detected (NOT DETECTE) SARS-CoV-2 Ag (CV2AG) Negative (NEGATIVE) 07/07/25 Range/Units 12:52 WBC (4.0-11.0) 10^3/uL RBC (4.70-6.10) 10^6/uL Hgb (14.0-18.0) g/dL Hct (42.0-54.0) % MCV (80.0-94.0) fL MCH (25.9-34.0) pg MCHC (29.9-35.2) g/dL RDW (11.0-15.0) % Plt Count (150-450) 10^3/uL MPV (9.5-13.5) fL Neut % (Auto) (43.0-75.0) % Lymph % (Auto) (20.5-60.0) % Grainger % (Auto) (1.7-12.0) % Eos % (Auto) (0.9-7.0) % Baso % (Auto) (0.2-2.0) % Neut # (Auto) (1.4-6.5) 10^3/uL Lymph # (Auto) (1.2-3.8) 10^3/uL Grainger # (Auto) (0.3-0.8) 10^3/uL Eos # (Auto) (0.0-0.7) 10^3/uL Baso # (Auto) (0.0-0.1) 10^3/uL Abs Immat Gran (auto) (0.00-0.03) 10^3/uL Imm/Tot Granulo (auto) (0.0-0.5) % PT (9.0-11.6) sec INR APTT (22.3-36.2) sec Puncture Site Rr ABG pH 7.386 (7.350-7.450) ABG pCO2 47.6 H (35.0-45.0) mmHg ABG pO2 108.0 H (80.0-100.0) mmHg ABG HCO3 28.5 H (22.0-26.0) mmol/L ABG O2 Saturation 98.6 % ABG Base Excess 3.5 H (-2.0-2.0) mmol/L Brett Test Positive (POSITIVE) Minute Volume 14.3 FiO2 25 % Tidal Volume 570 BiPAP 16/8 Sodium (136-145) mmol/L Potassium (3.5-5.1) mmol/L Chloride (98-107) mmol/L Carbon Dioxide (21.0-32.0) mmol/L Anion Gap BUN (7.0-18.0) mg/dL Creatinine (0.70-1.30) mg/dL Est GFR ( Amer) (>=60 mL/min/1.73m^2) Est GFR (Non-Af Amer) (>=60 mL/min/1.73m^2) BUN/Creatinine Ratio Glucose (74-106) mg/dL Calcium (8.5-10.1) mg/dL Magnesium (1.8-2.4) mg/dL Total Bilirubin (0.2-1.0) mg/dL AST (15-37) U/L ALT (16-63) U/L Alkaline Phosphatase (46-116) U/L Troponin I High Sens (4.0-76.1) pg/mL Total Protein (6.4-8.2) g/dL Albumin (3.4-5.0) g/dL Globulin g/dL Albumin/Globulin Ratio Influenza Type A Ag Influenza Type B Ag RSV Antigen (NOT DETECTE) SARS-CoV-2 Ag (CV2AG) (NEGATIVE) Discharge Plan Discharge Chief Complaint: Shortness of Breath/Dyspnea Clinical Impression: Stroke due to embolism, Asthma exacerbation in COPD, Respiratory failure Patient Disposition: [facility] Time of Disposition Decision: 12:32 Discharge Location: [facility]
--- OUTSIDE RECORDS SUMMARY | 2025-07-07 12:05 | XMS_ITS | Encounter Summary ---
Author Organization [facility] Address [address] [place] [address] Care Team Providers Care Bleacher Pulp Name Role Phone Azul Quezada ASSISTANT WAREHOUSE MANAGER Unavailable [phone] Kiko Zurita MD Primary Care Provider [phone] Azul Quezada ASSISTANT WAREHOUSE MANAGER Unavailable [phone] Encounter Details Date Type Department Care Team (Late st Contact Info) Description 03/16/2025 [facility] [address] [facility] [address] Herminio Hamlin MD [address], [place] [id number] Social History Tobacco Use Types Packs/Day Years [...] or ex-partner? No 11/13/2023 Social Connection and Isolation Panel Answer Date Recorded In a typical week, how many times do you talk on the phone with family, friends, or neighbors? More than three times a week 11/13/2023 How often do you get togethe r with friends or relatives? More than three times a week 11/13/2023 How often do you attend chur ch or scientology services? Never 11/13/2023 Do you belong to any clubs o r organizations such as sikh groups, unions, fraternal or athletic groups, or [...] Recorded Patient Health Questionnaire-2 Score 2 11/16/2024 [facility] - Occupational Stress Questionnaire Answer Date [...] the money to buy more. Never true 02/22/20 24 Within the past 12 months, t [...] place to sleep or slept in a penitentiary (including now)? No 11/13/2023 Sex and Gender [...] 1 VIEW Routine 03/16/2025 10:24 AM EDT documented in this encounter Results * XR chest 1 view (03/16/2025 10:24 AM EDT) Anatomical Region Laterality Modality Chest Radiographic [place] ging Herminio Hamlin MD IMG XR PROCEDURES Final Resul t documented in this encounter Visit Diagnoses Not on filedocumented in this encounter Additional Health Concerns Assessment Noted Time PHQ-9 Depression Total Score: 11 025 2:00 PM EST documented as of this encounter Care Teams Bleacher Pulp Relationship Specialty Start Date End Date Kiko Zurita MD PCP - General Family Medicine 10/24/23 Azul Quezada NP [address] [place] [address] PCP - ACO Reach 10/29/24 Azul Quezada NP Referring Physician Nurse Practitioner 04/07/23 documented as of this encounter
--- OUTSIDE RECORDS SUMMARY | 2025-07-07 12:05 | XMS_ITS | Encounter Summary ---
Author Organization [facility] Address [address] [facility] [place] [address] Care Team Providers Care Milk Receiver Tank Truck Name Role Phone Azul Quezada ROCK CRUSHER Unavailable [phone] Kiko Zurita MD Primary Care Provider [phone] Azul Quezada ROCK CRUSHER Unavailable [phone] Encounter Details Date Type Department Care Team (Late st Contact Info) Description 08/23/2024 Abstract [facility] [address] [place] [address] Azul Quezada NP [address] [place] [address] Social History Tobacco Use Types Packs/Day Years [...] often do you attend chur ch or alevism services? Never 11/13/2023 Do you belong to any clubs o r organizations such as mu-ism groups, unions, fraternal or athletic groups, or [...] Recorded Patient Health Questionnaire-2 Score 0 02/18/2024 [facility] Occupat ional [facility] - Occupational Stress Questionnaire Answer Date Recorded [...] place to sleep or slept in a custodial (including now)? No 11/13/2023 Sex and Gender Information Value Date Recorded Sex Assigned at Not on file Legal Sex Male 6:45 PM EDT Gender Identity Not on file Sexual Orientation Not on file documented as of this encounter Plan of Treatment Not on file documented as of this encounter Visit Diagnoses Not on filedocumented in this encounter Care Teams Milk Receiver Tank Truck Relationship Specialty Start Date End Date Kiko Zurita MD PCP - General Family Medicine 10/24/23 Azul Quezada NP [address] [place] [address] PCP - ACO Reach 10/29/24 Azul Quezada NP Referring Physician Nurse Practitioner 04/07/23 documented as of this encounter
--- OUTSIDE RECORDS SUMMARY | 2025-07-07 12:05 | XMS_ITS | Clinical Summary ---
Author Organization [facility] tem Address [id number] [address] [place] [address] Care Team Providers Care Supervisor Mattress And Boxsprings Name Role Phone Azul Quezada APRN-HUMAN RESOURCES GENERALIST Primary Care Provider Allergies Active Allergy Reactions [...] e alcohol) Social Connection and Isolation Panel Answer Date Recorded In a typical week, how many times do you talk on the phone with family, friends, or neighbors? Twice a week 06/10/20 20 How often do you get togethe r with friends or relatives? Once a week 06/10/2020 How often do you attend chur ch or orthodox services? Never 06/10/2020 Do you belong to any clubs o r organizations such as evangelical groups, unions, fraternal or athletic groups, or [...] Answer Date Recorded Total Score 0 02/07/2022 [facility]at ional [facility] - Occupational [...] Zoster (Shingles) Vaccine (1 of 2) 2010 Fall Risk Screening 2025 Influenza Vaccine 2025 07/05/2015 Goals Goal Patient Goal Type Associated Problems Recent Progress Patient-Stated? Author safe discharge home General Yes Yasmeen Weiner, RN Note: Evaluation of progress towards goal: Return home with self care and family support. Medical Devices Implanted Type Area Home Care Provider Device Identifier Shelf Expiration Date Model / Serial / Lot Stnt Vsc 8/6mm 6fr 30mm 135cm - [id number] Implanted:Qty: 1 on 06/12/2020 by Andrew Terrell MD at [facility] Stent Right: Carotid [employer] [facility] 11/19/2022 [id number] Insurance MEDICAID [place] MEDICARE Care Teams Supervisor Mattress And Boxsprings Relationship Specialty Start Date End Date Azul Quezada APRN-HUMAN RESOURCES GENERALIST PCP - General Nurse Practitioner 08/30/19
--- OUTSIDE RECORDS SUMMARY | 2025-07-07 12:05 | XMS_ITS | Encounter Summary ---
Author Organization [facility] Address [address] [place] [address] Care Team Providers Care Barrel Charrer Name Role Phone Azul Quezada INSURANCE DEFENSE PARALEGAL Unavailable [phone] Kiko Zurita MD Primary Care Provider [phone] Azul Quezada INSURANCE DEFENSE PARALEGAL Unavailable [phone] Encounter Details Date Type Department Care [...] any clubs o r organizations such as hindu groups, unions, fraternal or athletic groups, or [...] Recorded Patient Health Questionnaire-2 Score 0 02/18/2024 [facility] of Occupat ional Health - Occupational Stress [...] place to sleep or slept in a residential (including now)? No 11/13/2023 Sex and Gender [...] AM EST Narrative 09/08/2024 5:51 [place] [address] [place] Scan Report Signed Patient: SAM KRAMER MR#: [id number] : 1960 Acct:[id number] Age/Sex: 64 / M ADM Date: 09/06/24 Loc: CT Attending Dr: Jameson White D.O. Ordering Physician: Jameson White D.O. Date of Service: 09/06/24 Procedure(s): CT lung screening low-dose Accession Number(s): [id number] cc: Azul Quezada NP [address] [address] Patient Name: SAM KRAMER MRN: [id number] date: 1960 Sex: M Assigned Patient Location: CT Current Patient Location: Accession/Order Number: [id number] Exam Date: 09/06/2024 14:22 Report Date: 09/08/2024 [...] Signed By: 09/08/24 0551 DD/ 0549 TD/TT: Employment Educational Coord: Procedure Note Radiology, Radiologist, - 09/08/2024 [place] [address] CT Scan Report Signed Patient: SAM KRAMER KMR#: [id number] : 1960Acct:[id number] Age/Sex: 64 / MADM Date: 09/06/24 Loc: CT Attending Dr: Jameson White D.O. Ordering Physician: Jameson White D.O. Date of Service: 09/06/24 Procedure(s): CT lung screening low-dose Accession Number(s): [id number] cc: Azul Quezada NP [place] [id number] Patient Name: SAM KRAMER MRN: [id number] date: 1960 Sex: M Assigned Patient Location: CT Current Patient Location: Accession/Order Number: [id number] Exam Date: 09/06/2024 14:22 Report Date: 09/08/2024 [...] M.D. Signed By:09/08/24 0551 DD/ 0549 TD/TT: Employment Educational Coord: us Generic External Data Provider [facility] Final Result documented in this encounter Visit Diagnoses Not on filedocumented in this encounter Care Teams Barrel Charrer Relationship Specialty Start Date End Date Kiko Zurita MD PCP - General Family Medicine 10/24/23 Azul Quezada NP [address] [place] [address] PCP - ACO Reach 10/29/24 Azul Quezada NP Referring Physician Nurse Practitioner 04/07/23 documented as of this encounter
--- OUTSIDE RECORDS SUMMARY | 2025-07-07 12:05 | XMS_ITS | Encounter Summary ---
Author Organization [facility] Address [address] [facility] [address] Care Team Providers Care Service Delivery Consultant Name Role Phone Azul Quezada SOFTWARE LEAD Unavailable [phone] Kiko Zurita MD Primary Care Provider [phone] Azul Quezada SOFTWARE LEAD Unavailable [phone] Encounter Details Date Type Department Care Team (Late st Contact Info) Description 09/27/2024 [facility] [address] [facility] [place] [address] Baltazar Gil MD [address] [facility] Social History Tobacco Use Types [...] often do you attend chur ch or faith services? Never 11/13/2023 Do you belong to [...] Recorded Patient Health Questionnaire-2 Score 0 02/18/2024 [facility] of Occupat ional [facility] - Occupational Stress Questionnaire Answer Date Recorded [...] place to sleep or slept in a correction (including now)? No 11/13/2023 Sex and Gender [...] on filedocumented in this encounter Care Teams Service Delivery Consultant Relationship Specialty Start Date End Date Kiko Zurita MD PCP - General Family Medicine 10/24/23 Azul Quezada NP [address] [place] [address] PCP - ACO Reach 10/29/24 Azul Quezada NP Referring Physician Nurse Practitioner 04/07/23 documented as of this encounter
--- OUTSIDE RECORDS SUMMARY | 2025-07-07 12:05 | XMS_ITS | Encounter Summary ---
Author Organization [facility] Address [address] [facility] [place] [address] Care Team Providers Care Manager Laboratory Name Role Phone Azul Quezada WAREHOUSE RECEIVING SUPERVISOR Unavailable [phone] Kiko Zurita MD Primary Care Provider [phone] Azul Quezada WAREHOUSE RECEIVING SUPERVISOR Unavailable [phone] Encounter Details Date Type Department Care Team (Late st Contact Info) Description 03/16/2025 Abstract [facility] [address] [place] [address] Azul Quezada NP [address] [place] [address] Social History Tobacco Use Types Packs/Day Years [...] any clubs o r organizations such as worship groups, unions, fraternal [...] Recorded Patient Health Questionnaire-2 Score 2 11/16/2024 [facility] of Occupat ional [facility] - Occupational Stress Questionnaire Answer Date Recorded [...] place to sleep or slept in a usp (including now)? No 11/13/2023 Sex and Gender [...] documented as of this encounter Care Teams Manager Laboratory Relationship Specialty Start Date End Date Kiko Zurita MD PCP - General Family Medicine 10/24/23 Azul Quezada NP [address] [place] [address] PCP - ACO Reach 10/29/24 Azul Quezada NP Referring Physician Nurse Practitioner 04/07/23 documented as of this encounter
--- OUTSIDE RECORDS SUMMARY | 2025-07-07 12:05 | XMS_ITS | Encounter Summary ---
Author Organization [facility] Address [address] [place] [address] Care Team Providers Care Sinter Machine Operator Name Role Phone Azul Quezada CHAIN SALES CONSULTANT Unavailable [phone] Kiko Zurita MD Primary Care Provider [phone] Azul Quezada CHAIN SALES CONSULTANT Unavailable [phone] Encounter Details Date Type Department Care Team (Late st Contact Info) Description 05/10/2025 Abstract [facility] [address] [place] [address] Azul Quezada NP [address] [place] [address] Social History Tobacco Use Types Packs/Day Years [...] any clubs o r organizations such as jew groups, unions, fraternal or athletic groups, or [...] Recorded Patient Health Questionnaire-2 Score 2 11/16/2024 [facility] of Occupat ional [facility] - Occupational Stress Questionnaire Answer Date [...] documented as of this encounter Care Teams Sinter Machine Operator Relationship Specialty Start Date End Date Kiko Zurita MD PCP - General Family Medicine 10/24/23 Azul Quezada NP [address] [place] [address] PCP - ACO Reach 10/29/24 Azul Quezada NP Referring Physician Nurse Practitioner 04/07/23 documented as of this encounter
--- OUTSIDE RECORDS SUMMARY | 2025-07-07 12:06 | XMS_ITS | Clinical Summary ---
Author Organization [facility] Address [address] [place] [address] Care Team Providers Care Survey And Mapping Technician Name Role Phone Azul Quezada ASSISTANT BASEBALL COACH Unavailable [phone] Kiko Zurita MD Primary Care Provider [phone] Azul Quezada ASSISTANT BASEBALL COACH Unavailable [phone] Allergies Active Allergy Reactions Criticality Noted [...] EDT): Check xray and go from there [facility] current use of inhaled steroid 025 COPD [...] (BMI 25.0-29.9) 12/15/2023 Encounter for subsequent [facility] wellness visit (AWV) in Medicare patient 11/13/2023 [...] Plan (05/17/2025 6:54 AM EDT): Was established long-term with dr tim, 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 and needs a referral to [facility] Chest [...] have asked the pt to contact his anesthesiology faculty for management of this exacerbation He states [...] of the risks of continued smoking: stroke, RI, all forms of cancer, lung disease, and [...] 3:20 PM EDT Office Visit [facility] [address] [place] [address] Azul Quezada NP Centrilobular emphysema (HCC) (Primary Dx); Tourette's ; Bilateral carotid artery stenosis; Rising PSA level; Mixed hyperlipidemia ; Depression with anxiety; Former smoker; Elevated glucose; Pain of right hip 05/17/2025 Bamboo flowsheet [facility] [address] [place] [address] Azul Quezada NP 05/13/2025 Patient Outreach [facility] [address] [place] [address] Angy Samayoa LPN 05/11/2025 Abstract [facility] [address] [place] [address] Azul Quezada NP 05/10/2025 Abstract [facility] [address] [place] [address] Azul Quezada NP from Last 3 Months [...] week 11/13/2023 How often do you attend [facility] or amish services? Never 11/13/2023 Do you belong to [...] Recorded Patient Health Questionnaire-2 Score 2 11/16/2024 [facility] of Occupat ional Health - Occupational [...] Colonoscopy 06/15/2029 06/15/2024 Colorectal Cancer Screening 06/15/2029 Insurance MEDICARE Care Teams Survey And Mapping Technician Relationship Specialty Start Date End Date Kiko Zurita MD PCP - General Family Medicine 10/24/23 Azul Quezada NP [address] [place] [address] PCP - ACO Reach 10/29/24 Azul Quezada NP Referring Physician Nurse Practitioner 04/07/23
--- OUTSIDE RECORDS SUMMARY | 2025-07-07 12:06 | XMS_ITS | Encounter Summary ---
Author Organization [facility] Address [address] [facility] [place] [address] Care Team Providers Care Licensed Mental Health Counselor Name Role Phone Azul Quezada BAND MASTER Unavailable [phone] Kiko Zurita MD Primary Care Provider [phone] Azul Quezada BAND MASTER Unavailable [phone] Encounter Details Date Type Department Care Team (Late st Contact Info) Description 12/01/2023 Orders Only [facility] [address] [facility] [place] [address] Azul Quezada NP [address] [facility] [place] [address] Social History Tobacco Use Types Packs/Day Years [...] often do you attend chur ch or uatsdin services? Never 11/13/2023 Do you belong to any clubs o r organizations such as moravian groups, unions, fraternal or athletic groups, or [...] Recorded Patient Health Questionnaire-2 Score 2 10/30/2023 [facility] of Occupat ional Health - Occupational [...] 11/30/2023 11:11 AM EDT ELECTROCARDIOGRAM REPORT Routine 10:55 AM EDT documented in this encounter Results * XR chest 1 view (11/30/2023 11:11 AM EDT) Anatomical Region Laterality Modality Chest Radiographic [place] ging us Azul Quezada BAND MASTER IMG XR PROCEDURES Final Result * Electrocardiogram Report (11/30/2023 10:55 AM EDT) us Azul Quezada NP IN CLINIC/BEDSIDE ORDERABLES Fi nal Result documented in this encounter Visit Diagnoses Not on filedocumented in this encounter Care Teams Licensed Mental Health Counselor Relationship Specialty Start Date End Date Kiko Zurita MD PCP - General Family Medicine 10/24/23 Azul Quezada NP [address] [place] [address] PCP - ACO Reach 10/29/24 Azul Quezada NP Referring Physician Nurse Practitioner 04/07/23 documented as of this encounter
--- OUTSIDE RECORDS SUMMARY | 2025-07-07 12:06 | XMS_ITS | Encounter Summary ---
Author Organization [facility] Address [address] [place] [address] Care Team Providers Care Rail Crew Member Name Role Phone Azul Quezada WEAVING SUPERVISOR Unavailable [phone] Kiko Zurita MD Primary Care Provider [phone] Azul Quezada WEAVING SUPERVISOR Unavailable [phone] Encounter Details Date Type Department Care Team (Late st Contact Info) Description 12/08/2023 [facility] [address] [facility] [place] [address] Herminio Hamlin MD [address], [place] [id number] Social History Tobacco Use Types Packs/Day Years [...] often do you attend chur ch or protestant services? Never 11/13/2023 Do you belong to any clubs o r organizations such as yazidi groups, unions, fraternal or athletic groups, or [...] Recorded Patient Health Questionnaire-2 Score 2 10/30/2023 [facility] of Occupat ional [facility] - Occupational Stress Questionnaire Answer [...] place to sleep or slept in a [place] facility (including now)? No 11/13/2023 Sex and Gender [...] filedocumented in this encounter Care Teams Rail Crew Member Relationship Specialty Start Date End Date Kiko Zurita MD PCP - General Family Medicine 10/24/23 Azul Quezada NP [address] [facility] [place] [address] PCP - ACO Reach 10/29/24 Azul Quezada NP Referring Physician Nurse Practitioner 04/07/23 documented as of this encounter
--- OUTSIDE RECORDS SUMMARY | 2025-07-07 12:06 | XMS_ITS | Encounter Summary ---
Author Organization [facility] Address [address] [facility] [place] [address] Care Team Providers Care Fruit Preserver Name Role Phone Kiko Zurita MD Primary Care Provider [phone] Azul Quezada MULTIMEDIA INSTRUCTIONAL DESIGNER Unavailable [phone] Kiko Zurita MD Primary Care Provider [phone] Azul Quezada MULTIMEDIA INSTRUCTIONAL DESIGNER Unavailable [phone] Encounter Details Date Type Department Care Team (Late st Contact Info) Description 09/25/2023 Orders Only [facility] [address] [place] [address] Azul Quezada NP [address] [place] [address] Social History Tobacco Use Types Packs/Day Years [...] on filedocumented in this encounter Care Teams Fruit Preserver Relationship Specialty Start Date End Date Kiko Zurita MD PCP - General Family Medicine 04/07/23 10/23/23 Kiko Zurita MD PCP - General Family Medicine 10/24/23 Azul Quezada NP [address] [place] [address] PCP - ACO Reach 10/29/24 Azul Quezada NP Referring Physician Nurse Practitioner 04/07/23 documented as of this encounter
--- OUTSIDE RECORDS SUMMARY | 2025-07-07 12:06 | XMS_ITS | Encounter Summary ---
Author Organization [facility] Address [address] [place] [address] Care Team Providers Care Travel Pta Name Role Phone Kiko Zurita MD Primary Care Provider [phone] Azul Quezada RECEIVING CHECKER Unavailable [phone] Kiko Zurita MD Primary Care Provider [phone] Azul Quezada RECEIVING CHECKER Unavailable [phone] Encounter Details Date Type Department Care Team (Late st Contact Info) Description 10/08/2023 Orders Only [facility] [address] [place] [address] Herminio Hamlin MD [address] [place] [address] Social History Tobacco Use Types Packs/Day Years [...] on filedocumented in this encounter Care Teams Travel Pta Relationship Specialty Start Date End Date Kiko Zurita MD PCP - General Family Medicine 04/07/23 10/23/23 Kiko Zurita MD PCP - General Family Medicine 10/24/23 Azul Quezada NP [address] [place] [address] PCP - ACO Reach 10/29/24 Azul Quezada NP Referring Physician Nurse Practitioner 04/07/23 documented as of this encounter
--- OUTSIDE RECORDS SUMMARY | 2025-07-07 12:06 | XMS_ITS | Patient Health Record ---
Author Organization [facility] [place] Line Address [address] [place] [address] Care Team Providers Care Waiter/Waitress Dining Car Name Role Phone Azul Quezada CNP Primary Care Provider Unavail able Jameson White Unavailable [phone] Allergies No Known Allergies Results Component Value Reference Range Notes CT Chest Low Dose for Screen ing* Reviewed date:09/08/2024 07:34:23 AM Interpretation: Performing Lab: Notes/Report: CT lung screening low-dose Reviewed date:09/08/2024 07:39:04 AM Interpretation: Performing Lab: Notes/Report: Source Facility: [place] [address] CT Scan Report Signed Patient: SAM KRAMER MR#: [id number] : 1960 Acct:[id number] Age/Sex: 64 / M ADM Date: 09/06/24 Loc: CT Attending Dr: Jameson White D.O. Ordering Physician: Jameson White D.O. Date of Service: 09/06/24 Procedure(s): CT lung screening low-dose Accession Number(s): [id number] cc: Azul Quezada NP [place] [address] Patient Name: SAM KRAMER MRN: [id number] date: 1960 Sex: M Assigned Patient Location: CT Current Patient Location: Accession/Order Number: [id number] Exam Date: 09/06/2024 14:22 Report Date: 09/08/2024 [...] Signed By: 09/08/24 0551 DD/ 0549 TD/TT: Market Research Interviewer: CT Chest w/o contrast Reviewed date:12/07/2024 01:48:27 PM Interpretation: Performing Lab: Notes/Report: CT chest wo con Reviewed date:12/07/2024 02:32:11 PM Interpretation: Performing Lab: Notes/Report: Source Facility: [place] [address] CT Scan Report Signed Patient: SAM KRAMER MR#: [id number] : 1960 Acct:[id number] Age/Sex: 64 / M ADM Date: 12/07/24 Loc: CT Attending Dr: Jameson White D.O. Ordering Physician: Jameson White D.O. Date of Service: 12/07/24 Procedure(s): CT chest wo con Accession Number(s): [id number] cc: Azul Quezada NP [place] [address] Patient Name: SAM KRAMER MRN: [id number] date: 1960 Sex: M Assigned Patient Location: CT Current Patient Location: CT Accession/Order Number: [id number] Exam Date: 12/07/2024 13:12 Report Date: 12/07/2024 [...] Marsh Jr., D.O.12/07/2024 1:15 PM Dictation Location: [place] [address] Electronically authenticated by: [id number] Y Date: 12/07/2024 13:15 Dictated By: [employer] Marsh M.D. Signed By: 12/07/248 DD/ 14 TD/TT: Market Research Interviewer: HEMOGLOBIN Reviewed date:10/26/2024 07:27:51 AM Interpretation: Performing Lab: Notes/Report: [facility] , Hemoglobin 14.8 14.0-18.0 g/dL Performing Lab: see note ML - [facility] LB Reason For Referral No Information Medications Medication SIG (Take, Route, Frequency, Duration) Notes Start Date End Date Status hydrOXYzine HCl 25 MG TAKE 1 TO 2 TABLET S BY MOUTH EVERY 8 HOURS NEEDED FOR ANXIETY for up to TEN days Oral; Duration: 10 Days Active Ipratropium-Albuterol 0.5-2.5 (3) MG/3ML 3mL Inhalation 6 times a day; Duration: 90 days Active FLUoxetine HCl 20 MG 1 tablet Oral; Dura tion: 30 days Active Albuterol Sulfate HFA 108 (90 Base) MCG/ACT 2 puffs as needed for SOB Inhalation Q4H; Duration: 90 days Dispense #3 inhalers Active Spiriva Respimat 2.5 MCG/ACT 2 puffs Inhalation QD Active Budesonide-Formoterol Fumarate 160-4.5 MCG/ACT 2 puffs as needed for SOB Inhalation Q4H Rinse after use Active predniSONE 5 MG 1 tablet Orally Once a day; Duration: 30 days Take with food 03/14/2025 Active Aspirin Low Dose 81 MG TAKE 1 TABLET BY MOUTH ONCE DAILY Oral; Duration: 30 Days Active Atorvastatin Calcium 40 MG TAKE 1 TABLET BY MOUTH DAILY Oral; Duration: 30 Days Active Immunizations Vaccine Route Administration Date Status Comme nts Abrysvo Unknown 08/30/2024 Administered Flu, Flucelvax (09099) 6 mos and older, single-dose syringe (8066-4499) Unknown 08/16/2024 Administered Social History Tobacco Use: [...] W/U Status Risk Notes Problem Centrilobular emphysema (74546127) Centrilobular emphysema (J43.2) Active confirmed Prior treatments: Symbicort 160 + Spiriva 2.5 > Stiolto, Advair, Trelegy & Breo (does not tolerate dry powder inhalers) Problem Long-term current use of inhaled steroid (972677191) 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 Problem Long-term current use of systemic steroid (731205473730608 ) FPC (current) use of systemic steroids (Z79.52) Active confirmed Problem Cannabis abuse (83717903) Marijuana abuse (F12.10) Active confirmed Problem Ex-tobacco user (finding) (459445755) History of tobacco abuse (Z87.891) Active confirmed [...] Date Performed Result Body Sit e PFT (10007, 53901, 71275) 10/12/2024 N/A Encounters Encounter Location Date Provider Diagnosis [facility] [address] [place] [address] 08/17/2024 Jameson White Centrilobular emphys promise J43.2 ; Multiple pulmonary nodules R91.8 ; Encounter for immunization Z23 ; Peripheral eosinophilia D72.19 ; History of tobacco abuse Z87.891 ; 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 (current) use of inhaled steroids Z79.51 and Encounter for screening for malignant neoplasm of respiratory organs Z12.2 [facility] [address] [place] [address] 10/12/2024 [facility] Centrilobular emphys promise J43.2 ; Multiple pulmonary nodules R91.8 ; History of tobacco abuse Z87.891 and FPC (current) use of inhaled steroids Z79.51 [facility] [address] [place] [address] [facility]ular [facility]ys promise J43.2 ; Multiple pulmonary nodules R91.8 ; History of tobacco abuse Z87.891 ; FPC (current) use of inhaled steroids Z79.51 and Encounter for screening for malignant neoplasm of respiratory organs Z12.2 [facility] [address] [place] [address] [facility] Centrilobular emphys promise J43.2 ; History of tobacco abuse Z87.891 ; 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 (current) use of systemic steroids Z79.52 and FPC (current) use of inhaled steroids Z79.51 [facility] [address] [place] [address] 07/19/2024 [facility] Centrilobular emphys promise J43.2 [facility] [address] [place] [address] 07/26/2024 [facility] [address] [place] [address] 09/06/2024 [facility] [address] [place] [address] 09/08/2024 [facility] [address] [place] [address] 11/08/2024 [facility] [address] [place] [address] 12/07/2024 [facility] [address] [place] [address] 12/21/2024 [facility] Assessments Encounter Date Diagnosis (ICD Code) Assessment [...] covered or not. Initial paperwork was signed. Adcf-nz-zfsk encounter performed with the patient to document [...] his lungs. His last PFT was in 2018 and was very severe with FEV1 of [...] him from this). Discussed adverse effects of correction systemic steroids including, but not limited to: [...] ~35 years, quit 2022. LDCT due 11/2025. 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 10/12/2024 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 (current) use of inhaled steroids (ICD-10 - Z79.51) Patient was counseled to rinse & gargle with water after inhaled corticosteroid use. 12/14/2024 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 (current) use of inhaled steroids (ICD-10 - Z79.51) Patient was counseled to rinse & gargle with water after inhaled corticosteroid use. 03/14/2025 FPC (current) use of inhaled steroids (ICD-10 - [...] rescheduled it to be due now. 08/17/2024 FPC (current) use of inhaled steroids (ICD-10 - [...] Pending Test Test Name Order Date PFT (36348, 73856, 75658) 10/12/2024 Insurance Providers Payer Name Payer Address Payer Phone Subscriber Number Group Number Insured Name Patient Relationship to Insured Coverage Start Date Coverage End Date [place] [address] [place] [address] [id number] Sam Kramer Self - patient is the insured 4 Medical (General) History Medical History History ICD Code Centrilobular emphysema J43.2 Allergic rhinitis J30.9 Bilateral carotid artery stenosis I65.23 Calcified lymph nodes I89.8 Depression with anxiety F41.8 Marijuana abuse F12.10 Peripheral eosinophilia D72.19 Tourette's F95.2 Osteoarthritis M19.90 Multiple pulmonary nodules R91.8 Vertebral artery occlusion, 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
--- OUTSIDE RECORDS SUMMARY | 2025-07-07 12:06 | XMS_ITS | Encounter Summary ---
Author Organization [facility] Address [address] [facility] [place] [address] Care Team Providers Care Document Reviewer Name Role Phone Azul Quezada PULP COOKER Unavailable [phone] Kiko Zurita MD Primary Care Provider [phone] Azul Quezada PULP COOKER Unavailable [phone] Encounter Details Date Type Department Care Team (Late st Contact Info) Description 11/24/2023 [facility] [address] [place] [address] Azul Quezada NP [address] [place] [address] Social History Tobacco Use Types Packs/Day Years [...] often do you attend chur ch or shinto services? Never 11/13/2023 Do you belong to [...] Recorded Patient Health Questionnaire-2 Score 2 10/30/2023 [facility] - Occupational Stress [...] place to sleep or slept in a snf (including now)? No 11/13/2023 Sex and Gender [...] on filedocumented in this encounter Care Teams Document Reviewer Relationship Specialty Start Date End Date Kiko Zurita MD PCP - General Family Medicine 10/24/23 Azul Quezada NP [address] [place] [address] PCP - ACO Reach 10/29/24 Azul Quezada NP Referring Physician Nurse Practitioner 04/07/23 documented as of this encounter
--- OUTSIDE RECORDS SUMMARY | 2025-07-07 12:06 | XMS_ITS | Encounter Summary ---
Author Organization [facility] Address [address] [place] [address] Care Team Providers Care Warehouseman Name Role Phone Azul Quezada SINGLE STROKE PREFORMER Unavailable [phone] Kiko Zurita MD Primary Care Provider [phone] Azul Quezada SINGLE STROKE PREFORMER Unavailable [phone] Encounter Details Date Type Department Care Team (Late st Contact Info) Description 05/11/2025 Abstract [facility] [address] [place] [address] Azul Quezada NP [address] [place] [address] Social History Tobacco Use Types Packs/Day Years [...] often do you attend chur ch or hoahaoism services? Never 11/13/2023 Do you belong to any clubs o r organizations such as sabianist groups, unions, fraternal or athletic groups, or [...] Recorded Patient Health Questionnaire-2 Score 2 11/16/2024 [facility] - Occupational Stress Questionnaire Answer [...] documented as of this encounter Care Teams Warehouseman Relationship Specialty Start Date End Date Kiko Zurita MD PCP - General Family Medicine 10/24/23 Azul Quezada NP [address] [place] [address] PCP - ACO Reach 10/29/24 Azul Quezada NP Referring Physician Nurse Practitioner 04/07/23 documented as of this encounter
--- OUTSIDE RECORDS SUMMARY | 2025-07-07 12:06 | XMS_ITS | Encounter Summary ---
Author Organization [facility] Address [address] [facility] [place] [address] Care Team Providers Care Timber Buyer Name Role Phone Azul Quezada BEET TOPPER Unavailable [phone] Kiko Zurita MD Primary Care Provider [phone] zAul Quezada BEET TOPPER Unavailable [phone] Encounter Details Date Type Department Care Team (Late st Contact Info) Description 10/28/2023 Abstract [facility] [address] [place] [address] Azul Quezada NP [address] [place] [address] Social History Tobacco Use Types Packs/Day Years [...] 10/30/2023 10:09 AM Elena Parry MA * How difficult have these problems made it for you to do your work, take care of things at home, or get along with other people? Answer Date of Assessment Author Not difficult at all 10/30/2023 10:09 AM Rupinder Canas MA documented as of this encounter Plan of Treatment Not on file documented as of this encounter Visit Diagnoses Not on filedocumented in this encounter Care Teams Timber Buyer Relationship Specialty Start Date End Date Kiko Zurita MD PCP - General Family Medicine 10/24/23 Azul Quezada NP [address] [place] [address] PCP - ACO Reach 10/29/24 Azul Quezada NP Referring Physician Nurse Practitioner 04/07/23 documented as of this encounter
--- OUTSIDE RECORDS SUMMARY | 2025-07-07 12:07 | XMS_ITS | CCD ---
Author Organization [facility] Care Team Providers Care Mediation Commissioner Name Role Phone SAMSA, JAMESON Admitting Unavailable SAMSA, JAMESON Attending Unavailable AICHHOLZ, CASTING TECHNICIAN AZUL Referring Unavailable AICHHOLZ, CASTING TECHNICIAN AZUL Primary Care Unavailable SAMSA, JAMESON Consulting Unavailable AICHHOLZ, CASTING TECHNICIAN AZUL Admitting Unavailable AICHHOLZ, CASTING TECHNICIAN AZUL Attending Unavailable AICHHOLZ, CASTING TECHNICIAN AZUL Primary Care Unavailable AICHHOLZ, CASTING TECHNICIAN AZUL Consulting Unavailable SAMSA, JAMESON Admitting Unavailable SAMSA, JAMESON Attending Unavailable AICHHOLZ, CASTING TECHNICIAN AZUL Primary Care Unavailable WHITNEY, DR YARIEL Figueroa Consulting Unavailable SAMSA, JAMESON Consulting Unavailable AICHHOLZ, CASTING TECHNICIAN AUZL Primary Care Unavailable DAREN, DR MAURO Admitting Unavailable DAREN, DR MAURO Attending Unavailable WHITNEY, DR YARIEL Figueroa Consulting Unavailable DAREN, DR MAURO Consulting Unavailable Kiko Zurita MD Primary Care Provider Aichholz RESORT KEEPER, Azul Unavailable Kiko Zurita MD Primary Care Provider Aichholz RESORT KEEPER, Azul Unavailable Aichholz POOL MANAGER-CASTING TECHNICIAN, Azul J Primary Care Provider Aichholz RESORT KEEPER, Azul Unavailable AICHHOLZ, AZUL Attending Unavailable AICHHOLZ, AZUL Attending Unavailable IBETH ARGUETA Attending Unavailable AICHHOLZ, AZUL Attending Unavailable AICHHOLZ, AZUL Attending Unavailable Allergies Allergy Classification Reported Allergen(s) Allergy Type Date of Onset Reaction(s) Facility (20 sources) Honey bee venom Allergy to substance 0 Unknown [facility] (1 source) Bee Venom Protein (Honey Bee) Propensity to adverse reactions to drug [facility] Medic[facility] Current Medications Medication Drug Class(es) [...] suspension every 12 (twelve) hours 08/17/2024 Active [id number] 0.3 ml EPINEPHrine 1 mg/ml auto-injector (20 [...] mouth Daily 05/11/2025 Active polyethylene glycol 3350 05795 mg powder for oral solution (3 sources) [...] Long-term current use of inhaled steroid; 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: [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] Onset: 11-16-2024 [...] Reference Range Facility XR CHEST 2Von 11-16-2024 [place] [address] XRay Report Signed Patient: SAM KRAMER MR#: [id number] : 1960 Acct:[id number] Age/Sex: 64 / M ADM Date: 11/16/24 Loc: RAD Attending Dr: Azul Quezada NP Ordering Physician: Azul Quezada NP Date of Service: 11/16/24 Procedure(s): XR chest 2V Accession Number(s): [id number] cc: Azul Quezada NP [address] [address] Patient Name: SAM KRAMER MRN: [facility]:[id number] date: 1960 Sex: M Assigned Patient Location: [facility] Current Patient Location: [facility] Accession/Order Number: [id number] Exam Date: 11/16/2024 19:23 Report Date: 11/16/2024 [...] Carlos Knight M.D.11/16/2024 7:24 PM Dictation Location: [place] [address] Electronically authenticated by: [id number] Y Date: 11/16/2024 19:24 Dictated By: Carlos Knight M.D. Signed By: 11/16/241925 DD/ 23 TD/TT: Senior Office Support Assistant Sosa: [facility] Radiology, Radiologist, MD - 11/16/2024 [facility] [place] [id number] XRay Report Signed Patient: SAM KRAMER MR#: [id number] : 1960 Acct:[id number] Age/Sex: 64 / M ADM Date: 11/16/24 Loc: RAD Attending Dr: Azul Quezada NP Ordering Physician: Azul Quezada NP Date of Service: 11/16/24 Procedure(s): XR chest 2V Accession Number(s): [id number] cc: Azul Quezada NP [address] [address] Patient Name: SAM KRAMER MRN: [id number] date: 1960 Sex: M Assigned Patient Location: [facility] Current Patient Location: RAD Accession/Order Number: [id number] Exam Date: 11/16/2024 19:23 Report Date: 11/16/2024 [...] Carlos Knight M.D.11/16/2024 7:24 PM Dictation Location: [place] [address] Electronically authenticated by: [id number] Y Date: 11/16/2024 19:24 Dictated By: Carlos Knight M.D. Signed By: 11/16/241925 DD/ 23 TD/TT: Senior Office Support Assistant Sosa: [email or web address] Radiology Study observation (narrative) [facility] 2VOrdered By: Radio UFOstart AGt Radiology on 11-16-2024 [employer] Work Phone: ALL HEMOGLOBINon 10-22-2024 Hemoglobin (Bld) [Mass/Vol] 14.8 g/dL 14.0 - 18.0 g/dL [email or web address] Coubic e PSA TOTAL+% FREEon 4 % FREE PSA 26.0 % . [employer] Comment on above: The table below list s the probability of prostate cancer for men with non-suspicious JUIN results and total PSA between 4 and [...] any other population of men. Performed at: [address] [id number] Technical Artist: Mich Orozco PhD, Phone: [phone] Prostate specific Ag [Mass/Vol] 1.0 ng/mL 0.0 - 4.0 ng/mL [facility] Comment on above: Darlin ECLIA methodol ogy. According to the [place] [employer], Serum PSA should decrease and [...] malignant disease. PSA, FREE 0.26 ng/mL N/A [facility] Healthcar e Comment on above: Darlin ECLIA methodol ogy. [facility] GLOGcar e ALL CBC WITH AUTO DIFFon BASOPHILS ABSOLUTE AUTO 0.1 [facility] Basophils/100 WBC (Bld) 0.9 % 0.2 - 2.0 % [facility] Eosinophils/100 WBC (Bld) 0.1 % Low 0.9 - 7.0 % [facility] Erythrocyte distribution width (RBC) [Ratio] 12.8 % 11.0 - 15.0 % [facility] Hematocrit (Bld) [Volume fraction] 43.1 % 42.0 - 54.0 % [facility] Hem[facility] (Bld) [Mass/Vol] 13.9 g/dL Low 14.0 - 18.0 g/dL [facility] IMMATURE GRANULOCYTES ABS AUTO 0.03 [facility] Immature granulocytes/100 WBC (Bld) 0.3 % 0.0 - 0.5 % [facility] Interpretation and review of laboratory results Abnormal [facility] LYMPHOCYTES ABSOLUTE AUTO 1.2 [facility] Lymphocytes/100 WBC (Bld) 14 % Low 20.5 - 60.0 % [facility] MCH (RBC) [Entitic mass] 30.3 pg 25.9 [...] [facility] UA (CLEAN/CATCH) [facility] OPIC IF INDICATEon 05-31-2024 BILIRUBIN URINE Negative NEGATIVE [facility] BLOOD URINE Negative NEGATIVE [facility] Clarity (U) CLEAR CLEAR [facility] Color (U) LT. YELLOW YELLOW [facility] GLUCOSE URINE UA Negative NEGATIVE mg/dL [facility] Interpretation and review of laboratory results Abnormal [...] (Bld) [Mass/Vol] 42.0 pg/mL Normal <=900.0 [facility] Comment on above: Performed By: #### I NFLUAB #### [facility] [address] [address] [address] Tom Dotson CBC AUTO DIFFon 09-25-2022 BASO # 0.1 103/ul Normal 0.0-0.1 [facility] Comment on above: Performed By: #### C BC #### [facility] [address] [place] [address] Dr. Tom Dotson Basophils/100 WBC (Bld) 0.8 % Normal 0.2-2.0 [facility] Comment on above: Performed By: #### C BC #### [facility] [address] [place] [address] Dr. Tom Dotson EO # 0.0 103/ul Normal 0.0-0.7 [facility] Comment on above: Performed By: #### C BC #### [facility] [address] [place] [address] Dr. Tom Dotson Eosinophils/100 WBC (Bld) 0.0 % Critically low 0.9-7.0 [facility] Comment on above: Performed By: #### C BC #### [facility] [address] [place] [address] Dr. Tom Dotson Erythrocyte distribution width (RBC) [Ratio] 12.4 % Normal 11.0-15.0 [facility] Comment on above: Performed By: #### C BC #### [facility] [address] [place] [address] Dr. Tom Dotson Hematocrit (Bld) [Volume fraction] 43.6 % Normal 42.0-54.0 [facility] Comment on above: Performed By: #### C BC #### [facility] [address] [place] [address] Dr. Tom Dotson Hemoglobin (Bld) [Mass/Vol] 14.3 g/dL Normal 14.0-18.0 [facility] Comment on above: Performed By: #### C BC #### [facility] [address] [place] [address] Dr. Tom Dotson IG # 0.02 10e3/ul Normal 0.00-0.03 [facility] Comment on above: Performed By: #### C BC #### [facility] [address] [place] [address] Dr. Tom Dotson IG % 0.3 % Normal 0.0-0.5 [facility] Comment on above: Performed By: #### C BC #### [facility] [address] [place] [address] Dr. Tom Dotson LYMPH # 1.4 103/ul Normal 1.2-3.8 [facility] Comment on above: Performed By: #### C BC #### [facility] [address] [place] [address] Dr. Tom Dotson Lymphocytes/100 WBC (Bld) 17.3 % Critically low 20.5-60.0 [facility] Comment on above: Performed By: #### C BC #### [facility] [address] [place] [address] Dr. Tom Dotson MANUAL DIFF REQ NO Normal [facility] Comment on above: Performed By: #### C BC #### [facility] [address] [place] [address] Dr. Tom Dotson MCH (RBC) [Entitic mass] 29.8 pg Normal 25.9-34.0 [facility] Comment on above: Performed By: #### C BC #### [facility] [address] [place] [address] Dr. Tom Dotson MCHC (RBC) [Mass/Vol] 32.8 g/dL Normal 29.9-35.2 [facility] Comment on above: Performed By: #### C BC #### [facility] [address] [place] [address] Dr. Tom Dotson MCV (RBC) [Entitic vol] 90.8 fL Normal 80.0-94.0 [facility] Comment on above: Performed By: #### C BC #### [facility] [address] [place] [address] Dr. Tom Dotson MONO # 0.7 103/ul Normal 0.3-0.8 [facility] Comment on above: Performed By: #### C BC #### [facility] [address] [place] [address] Dr. Tom Dotson Monocytes/100 WBC (Bld) 9.4 % Normal 1.7-12.0 [facility] Comment on above: Performed By: #### C BC #### [facility] [address] [place] [address] Dr. Tom Dotson NEUT # 5.7 103/ul Normal 1.4-6.5 [facility] Comment on above: Performed By: #### C BC #### [facility] [address] [place] [address] Dr. Tom Dotson Neutrophils/100 WBC (Bld) 72.2 % Normal 43.0-75.0 [facility] Comment on above: Performed By: #### C BC #### [facility] [address] [place] [address] Dr. Tom Dotson Platelet mean volume (Bld) [Entitic vol] 9.6 fL Normal 9.5-13.5 [facility] Comment on above: Performed By: #### C BC #### [facility] [address] [place] [address] Dr. Tom Dotson PLT 331 103/ul Normal 150-450 [facility] Comment on above: Performed By: #### C BC #### [facility] [address] [place] [address] Dr. Tom Dotson RBC 4.80 106/ul Normal 4.70-6.10 [facility] Comment on above: Performed By: #### C BC #### [facility] [address] [place] [address] Dr. Tom Dotson WBC 7.8 103/ul Normal 4.0-11.0 [facility] Comment on above: Performed By: #### C BC #### [facility] [address] [place] [address] Dr. Tom Dotson CULTURE BLOODon 09-25-2022 Microscopic examination of blood, culture Culture Observations: NO GROWTH AT 5 DAYS. Normal [facility] Comment on above: Performed By: #### I NFLUAB #### [facility] [address] [place] [address] Dr. Tom Dotson Microscopic examination of blood, culture Culture Observations: NO GROWTH AT 5 DAYS. Normal [facility] Comment on above: Performed By: #### I NFLUAB #### [facility] [address] [place] [address] Dr. Tom Dotson Covid-19 PCR (CVDTB)on SARS-CoV-2 (COVID-19) RNA OLGA+probe Ql (Unsp spec) Not detected Normal NOT DETECTED [facility] Comment on above: Result Comment: [...] for this test is supported by the Rn Concurrent Review of Health and Human Service's declaration that [...] used). Performed By: #### C VDTBH #### [facility] [address] [place] [address] Dr. Tom Dotson INFLUENZA A AND B AGon 09-25 [facility] SEE BELOW Normal [facility] Comment on above: Result Comment: Nega tive for Flu A protein angiten. Infection due to Flu A cannot be ruled out. Flu A angiten in the sample may be below the detection limit of the test. Performed By: #### I NFLUAB #### [facility] [address] [place] [address] Dr. Tom [facility]ots[facility] Normal [facility] Comment on above: Result Comment: Nega tive for Flu B protein antigen. Infection due to Flu B cannot be ruled out. Flu B antigen in the sample may be below the detection limit of the test. Performed By: #### I NFLUAB #### [facility] [address] [place] [address] Dr. Tom Dotson INFLUENZA A AG Negative Normal NEGATIVE SEE COMMENT [facility] Comment on above: Performed By: #### I NFLUAB #### [facility] [address] [place] [address] Dr. Tom Dotson INFLUENZA B AG Negative Normal NEGATIVE SEE COMMENT [facility] Comment on above: Performed By: #### I NFLUAB #### [facility] [address] [place] [address] Dr. Tom Dotson LACTATE/LACTIC ACIDon 2022 Lactate [Moles/Vol] 0.7 mmol/L Normal 0.4-1.9 [facility] Comment on above: Performed By: #### L ACT #### [facility] [address] [place] [address] Dr. Tom Dotson PROF CHEM 8 (BAS METB)on Anion gap [Moles/Vol] 9.3 mmol/L Normal [facility] Comment on above: Performed By: #### H STROPN, BMP, BNP #### [facility] [address] [place] [address] Dr. Tom Dotson Calcium [Mass/Vol] 8.8 mg/dL Normal 8.5-10.1 [facility] Comment on above: Performed By: #### H STROPN, BMP, BNP #### [facility] [address] [place] [address] Dr. Tom Dotson Chloride [Moles/Vol] 103 mmol/L Normal 98-107 [facility] Comment on above: Performed By: #### H STROPN, BMP, BNP #### [facility] [address] [place] [address] Dr. Tom Dotson CO2 [Moles/Vol] 31.1 mmol/L Normal 21.0-32.0 [facility] Comment on above: Performed By: #### H STROPN, BMP, BNP #### [facility] [address] [place] [address] Dr. Tom Dotson Creatinine [Mass/Vol] 0.77 mg/dL Normal 0.70-1.30 [facility] Comment on above: Performed By: #### H STROPN, BMP, BNP #### [facility] [address] [place] [address] [address] Tom Dotson EGFR-AF CZECH >60 Normal >=60 [facility] Comment on above: Performed By: #### H STROPN, BMP, BNP #### [facility] [address] [place] [address] [address] Tom Dotson EGFR-NON AF CZECH >60 Normal >=60 [facility] Comment on above: Performed By: #### H STROPN, BMP, BNP #### [facility] [address] [place] [address] [address] Tom Dotson Glucose [Mass/Vol] 98 mg/dL Normal 74-106 [facility] Comment on above: Performed By: #### H STROPN, BMP, BNP #### [facility] [address] [place] [address] [address] Tom Dotson Potassium [Moles/Vol] 4.4 mmol/L Normal 3.5-5.1 [facility] Comment on above: Performed By: #### H STROPN, BMP, BNP #### [facility] [address] [place] [address] [address] Tom Dotson Sodium [Moles/Vol] 139 mmol/L Normal 136-145 [facility] Comment on above: Performed By: #### H STROPN, BMP, BNP #### [facility] [address] [place] [address] [address] Tom Dotson Urea nitrogen [Mass/Vol] 13.0 mg/dL Normal 7.0-18.0 [facility] Comment on above: Performed By: #### H STROPN, BMP, BNP #### [facility] [address] [place] [address] [address] Tom Dotson Urea nitrogen/Creatinine [Mass ratio] 16.9 mg/mg Normal [facility] Comment on above: Performed By: #### H STROPN, BMP, BNP #### [facility] [address] [place] [address] [address] Tom Dotson TROPONIN, HIGH SENSITIVITYon 09-25-2022 HSTROP 7.4 pg/mL Normal 4.0-76.1 [facility] Comment on above: Result Comment: CUT- OFF POINTS HAVE BEEN ESTABLISHED BASED ON THE FOURTH UNIVERSAL DEFINITIONS OF MYOCARDIAL INFARCTION. THE UPPER REFERENCE LIMIT (URL) OF TROPONIN, DEFINED THE 99TH PERCENTILE OF cTnI DISTRIBUTION IN A REFERENCE POPULATION, HAS BEEN CONFIRMED THE DECISION THRESHOLD FOR [place] DIAGNOSIS. Performed By: #### I NFLUAB #### [facility] [address] [address] [address] Tom Dotson XR CHEST 1 Von [...] by: YARIEL OLSON Date: 2022-09-25 10:55 Normal [facility] ASPERGILLUS AB, QUANTITATIVE DIDon 04-20-2022 Aspergillus flavus Negative Normal Neg:<1:1 [facility] Comment on above: Performed By: #### A SPDID #### [facility] [address] [place] [address] Dr. Tom Dotson Aspergillus fumigatus Negative Normal Neg:<1:1 [facility] Comment on above: Performed By: #### A SPDID #### [facility] [address] [place] [address] [address] Tom Dotson Aspergillus niger Negative Normal Neg:<1:1 [facility] Comment on above: Performed By: #### A SPDID #### [facility] [address] [place] [address] Dr. Tom Dotson ANTI NEUTROPHIL CYTOPLASMIC AB (ANCA) PRon 04-19-2022 Anti-MPO Antibodies <0.2 Normal 0.0-0.9 [facility] Comment on above: Result Comment: Perf ormed at: BN Performed By: #### C BC #### [facility] [address] [address] [address] Tom Dotson Anti-PR3 Antibodies <0.2 Normal 0.0-0.9 [facility] Comment on above: Result Comment: Perf ormed at: BN Performed By: #### C BC #### [facility] [address] [place] [address] Dr. Tom Dotson Atypical pANCA <1:20 Normal Neg:<1:20 [facility] Comment on above: Result Comment: The atypical pANCA pattern has been observed in a significant percentage of patients with ulcerative colitis, primary sclerosing cholangitis and autoimmune hepatitis. Performed at: CB Performed By: #### C BC #### [facility] [address] [place] [address] Dr. Tom Dotson Cytoplasmic (C-ANCA) <1:20 Normal Neg:<1:20 [facility] Comment on above: Result Comment: Perf ormed at: CB Performed By: #### C BC #### [facility] [address] [place] [address] Dr. Tom Dtoson Perinuclear (P-ANCA) <1:20 Normal Neg:<1:20 [facility] Comment on above: Result Comment: The [...] CB Performed By: #### C BC #### [facility] [address] [place] [address] Dr. Tom Dotson IMMUNOGLOBULIN E, TOTALon Immunoglobulin E, Total 68 IU/mL Normal 6-495 [facility] Comment on above: Performed By: #### I GETOT #### [facility] [address] [place] [address] Dr. Tom Dotson ANGIOTENSION-CONVERTING ENZY ME (ELINOR)on 04-17-2022 ELINOR 28 U/L Normal 14-82 [facility] Comment on above: Performed By: #### A NGIOC #### [facility] [address] [place] [address] Dr. Tom Dotson CBC AUTO DIFFon 04-16-2022 BASO # 0.1 103/ul Normal 0.0-0.1 [facility] Comment on above: Performed By: #### I NFLUAB #### [facility] [address] [place] [address] Dr. Tom Dotson Basophils/100 WBC (Bld) 1.0 % Normal 0.2-2.0 [facility] Comment on above: Performed By: #### I NFLUAB #### [facility] [address] [place] [address] Dr. Tom Dotson EO # 0.0 103/ul Normal 0.0-0.7 [facility] Comment on above: Performed By: #### I NFLUAB #### [facility] [address] [place] [address] Dr. Tom Dotson Eosinophils/100 WBC (Bld) 0.1 % Critically low 0.9-7.0 [facility] Comment on above: Performed By: #### I NFLUAB #### [facility] [address] [place] [address] Dr. Tom Dotson Erythrocyte distribution width (RBC) [Ratio] 12.9 % Normal 11.0-15.0 [facility] Comment on above: Performed By: #### I NFLUAB #### [facility] [address] [place] [address] Dr. Tom Dotson Hematocrit (Bld) [Volume fraction] 44.8 % Normal 42.0-54.0 [facility] Comment on above: Performed By: #### I NFLUAB #### [facility] [address] [place] [address] Dr. Tom Dotson Hemoglobin (Bld) [Mass/Vol] 15.0 g/dL Normal 14.0-18.0 [facility] Comment on above: Performed By: #### I NFLUAB #### [facility] [address] [address] [address] Tom Dotson IG # 0.02 10e3/ul Normal 0.00-0.03 [facility] Comment on above: Performed By: #### I NFLUAB #### [facility] [address] [address] [address] Tom Dotson IG % 0.2 % Normal 0.0-0.5 [facility] Comment on above: Performed By: #### I NFLUAB #### [facility] [address] [address] [address] Tom Dotson LYMPH # 1.4 103/ul Normal 1.2-3.8 [facility] Comment on above: Performed By: #### I NFLUAB #### [facility] [address] [place] [address] Dr. Tom Dotson Lymphocytes/100 WBC (Bld) 17.6 % Critically low 20.5-60.0 [facility] Comment on above: Performed By: #### I NFLUAB #### [facility] [address] [place] [address] Dr. Tom Dotson MANUAL DIFF REQ NO Normal [facility] [place] [facility] Comment on above: Performed By: #### I NFLUAB #### [facility] [address] [place] [address] Dr. Tom Dotson MCH (RBC) [Entitic mass] 30.9 pg Normal 25.9-34.0 [facility] Comment on above: Performed By: #### I NFLUAB #### [facility] [address] [place] [address] Dr. Tom Dotson MCHC (RBC) [Mass/Vol] 33.5 g/dL Normal 29.9-35.2 [facility] Comment on above: Performed By: #### I NFLUAB #### [facility] [address] [place] [address] Dr. Tom Dotson MCV (RBC) [Entitic vol] 92.2 fL Normal 80.0-94.0 [facility] Comment on above: Performed By: #### I NFLUAB #### [facility] [address] [address] [address] Tom Dotson MONO # 0.8 103/ul Normal 0.3-0.8 [facility] Comment on above: Performed By: #### I NFLUAB #### [facility] [address] [place] [address] Dr. Tom Dotson Monocytes/100 WBC (Bld) 9.6 % Normal 1.7-12.0 [facility] Comment on above: Performed By: #### I NFLUAB #### [facility] [address] [place] [address] Dr. Tom Dotson NEUT # 5.9 103/ul Normal 1.4-6.5 [facility] Comment on above: Performed By: #### I NFLUAB #### [facility] [address] [place] [address] Dr. Tom Dotson Neutrophils/100 WBC (Bld) 71.5 % Normal 43.0-75.0 [facility] Comment on above: Performed By: #### I NFLUAB #### [facility] [address] [place] [address] Dr. Tom Dotson Platelet mean volume (Bld) [Entitic vol] 9.9 fL Normal 9.5-13.5 [facility] Comment on above: Performed By: #### I NFLUAB #### [facility] [address] [place] [address] Dr. Tom Dotson PLT 325 103/ul Normal 150-450 [facility] Comment on above: Performed By: #### I NFLUAB #### [facility] [address] [place] [address] Dr. Tom Dotson RBC 4.86 106/ul Normal 4.70-6.10 [facility] Comment on above: Performed By: #### I NFLUAB #### [facility] [address] [place] [address] Dr. Tom Dotson WBC 8.2 103/ul Normal 4.0-11.0 [facility] Comment on above: Performed By: #### I NFLUAB #### [facility] [address] LUNG CANCER SCREENINGon [...] YARIEL OLSON Date: 2022-04-10 22:57 Normal [facility] CBC AUTO DIFFon 03-06-2022 BASO # 0.1 103/ul Normal 0.0-0.1 [facility] Comment on above: Performed By: #### C BC #### [facility] [address] [address] [address] Tom Dotson Basophils/100 WBC (Bld) 1.0 % Normal 0.2-2.0 [facility] Comment on above: Performed By: #### C BC #### [facility] [address] [address] [address] Tom Dotson EO # 2.5 103/ul Critically high 0.0-0.7 [facility] Comment on above: Performed By: #### C BC #### [facility] [address] [address] [address] Tom Dotson Eosinophils/100 WBC (Bld) 29.1 % Critically high 0.9-7.0 [facility] Comment on above: Performed By: #### C BC #### [facility] [address] [place] [address] Dr. Tom Dotson Erythrocyte distribution width (RBC) [Ratio] 12.8 % Normal 11.0-15.0 [facility] Comment on above: Performed By: #### C BC #### [facility] [address] [place] [address] Dr. Tom Dotson Hematocrit (Bld) [Volume fraction] 46.6 % Normal 42.0-54.0 [facility] Comment on above: Performed By: #### C BC #### [facility] [address] [place] [address] Dr. Tom Dotson Hemoglobin (Bld) [Mass/Vol] 14.4 g/dL Normal 14.0-18.0 [facility] Comment on above: Performed By: #### C BC #### [facility] [address] [place] [address] Dr. Tom Dotson IG # 0.04 10e3/ul Critically high 0.00-0.03 [facility] Comment on above: Performed By: #### C BC #### [facility] [address] [place] [address] Dr. Tom Dotson IG % 0.5 % Normal 0.0-0.5 [facility] Comment on above: Performed By: #### C BC #### [facility] [address] [place] [address] Dr. Tom Dotson LYMPH # 1.3 103/ul Normal 1.2-3.8 [facility] Comment on above: Performed By: #### C BC #### [facility] [address] [place] [address] Dr. Tom Dotson Lymphocytes/100 WBC (Bld) 15.1 % Critically low 20.5-60.0 [facility] Comment on above: Performed By: #### C BC #### [facility] [address] [place] [address] Dr. Tom Dotson MANUAL DIFF REQ NO Normal [facility] Comment on above: Performed By: #### C BC #### [facility] [address] [place] [address] Dr. Tom Dotson MCH (RBC) [Entitic mass] 29.5 pg Normal 25.9-34.0 [facility] Comment on above: Performed By: #### C BC #### [facility] [address] [place] [address] Dr. Tom Dotson MCHC (RBC) [Mass/Vol] 30.9 g/dL Normal 29.9-35.2 [facility] Comment on above: Performed By: #### C BC #### [facility] [address] [place] [address] Dr. Tom Dotson MCV (RBC) [Entitic vol] 95.5 fL Critically high 80.0-94.0 [facility] Comment on above: Performed By: #### C BC #### [facility] [address] [place] [address] Dr. Tom Dotson MONO # 0.8 103/ul Normal 0.3-0.8 [facility] Comment on above: Performed By: #### C BC #### [facility] [address] [place] [address] Dr. Tom Dotson Monocytes/100 WBC (Bld) 9.5 % Normal 1.7-12.0 [facility] Comment on above: Performed By: #### C BC #### [facility] [address] [place] [address] Dr. Tom Dotson NEUT # 3.9 103/ul Normal 1.4-6.5 [facility] Comment on above: Performed By: #### C BC #### [facility] [address] [place] [address] Dr. Tom Dotson Neutrophils/100 WBC (Bld) 44.8 % Normal 43.0-75.0 [facility] Comment on above: Performed By: #### C BC #### [facility] [address] [place] [address] Dr. Tom Dotson Platelet mean volume (Bld) [Entitic vol] 10.2 fL Normal 9.5-13.5 [facility] Comment on above: Performed By: #### C BC #### [facility] [address] [place] [address] Dr. Tom Dotson PLT 328 103/ul Normal 150-450 [facility] Comment on above: Performed By: #### C BC #### [facility] [address] [place] [address] Dr. Tom Dotson RBC 4.88 106/ul Normal 4.70-6.10 [facility] Comment on above: Performed By: #### C BC #### [facility] [address] [place] [address] Dr. Tom Dotson WBC 8.7 103/ul Normal 4.0-11.0 [facility] Comment on above: Performed By: #### C BC #### [facility] [address] [place] [address] Dr. Tom Dotson DIFFERENTIAL MANUALon 2021 ATYPICAL LYMPH # 0.09 103/ul Normal [facility] Comment on above: Performed By: #### D IFF #### [facility] [address] [place] [address] Dr. Tom Dotson ATYPICAL LYMPH % 1 % Normal [facility] Comment on above: Performed By: #### D IFF #### [facility] [address] [place] [address] Dr. Tom Dotson BAND # 0.0 103/ul Normal 0.0-0.3 [facility] Comment on above: Performed By: #### D IFF #### [facility] [address] [place] [address] Dr. Tom Dotson BAND % 0 % Normal 0-5 [facility] Comment on above: Performed By: #### D IFF #### [facility] [address] [place] [address] Dr. Tom Dotson BASOM # 0.00 103/ul Normal 0.00-0.10 [facility] Comment on above: Performed By: #### D IFF #### [facility] [address] [place] [address] Dr. Tom Dotson BASOM % 0.0 % Critically low 0.2-2.0 [facility] Comment on above: Performed By: #### D IFF #### [facility] [address] [place] [address] Dr. Tom Dotson BLAST # Normal [facility] Comment on above: Performed By: #### D IFF #### [facility] [address] [place] [address] Dr. Tom Dotson BLAST % Normal [facility] Comment on above: Performed By: #### D IFF #### [facility] [address] [place] [address] Dr. Tom Dotson CORRECTED WBC Normal 4.0-11.0 [facility] Comment on above: Performed By: #### D IFF #### [facility] [address] [place] [address] Dr. Tom Dotson EOS # 1.22 103/ul Critically high 0.00-0.70 [facility] Comment on above: Performed By: #### D IFF #### [facility] [address] [place] [address] Dr. Tom Dotson EOS% 14.0 % Critically high 0.9-7.0 [facility] [place] [facility] Comment on above: Performed By: #### D IFF #### [facility] [address] [place] [address] Dr. Tom Dotson LYMPHM # 1.91 103/ul Normal 1.20-3.80 [facility] Comment on above: Performed By: #### D IFF #### [facility] [address] [place] [address] Dr. Tom Dotson LYMPHM% 22.0 % Normal 20.5-60.0 [facility] Comment on above: Performed By: #### D IFF #### [facility] [address] [place] [address] Dr. Tom Dotson METAMYELOCYTE # Normal [facility] Comment on above: Performed By: #### D IFF #### [facility] [address] [place] [address] Dr. Tom Dotson METAMYELOCYTE % Normal [facility] [place] [facility] Comment on above: Performed By: #### D IFF #### [facility] [address] [place] [address] Dr. Tom Dotson MONOM# 0.52 103/ul Normal 0.30-0.80 [facility] Comment on above: Performed By: #### D IFF #### [facility] [address] [place] [address] Dr. Tom Dotson MONOM% 6.0 % Normal 1.7-12.0 [facility] Comment on above: Performed By: #### D IFF #### [facility] [address] [place] [address] Dr. Tom Dotson MYELOCYTE # Normal [facility] Comment on above: Performed By: #### D IFF #### [facility] [address] [place] [address] Dr. Tom Dotson MYELOCYTE % Normal [facility] Comment on above: Performed By: #### D IFF #### [facility] [address] [place] [address] Dr. Tom Dotson NRBC Normal [facility] Comment on above: Performed By: #### D IFF #### [facility] [address] [place] [address] Dr. Tom Dotson SEG # 4.96 103/ul Normal 1.40-6.50 [facility] Comment on above: Performed By: #### D IFF #### [facility] [address] [place] [address] Dr. Tom Dotson SEG % 57.0 % Normal 43.0-75.0 [facility] Comment on above: Performed By: #### D IFF #### [facility] [address] [place] [address] Dr. Tom Dotson WBC 8.7 103/ul Normal 4.0-11.0 [facility] Comment on above: Performed By: #### D IFF #### [facility] [address] [address] [address] Tom Dotson LIPID PROFILEon 03-06-2022 CHOL-HDL RATIO NORM SEE BELOW Normal [facility] Comment on above: Result Comment: 3.3 - 4.4 LOW RISK 4.4 - 7.1 AVERAGE RISK 7.1 - 11.0 MODERATE RISK >11.0 HIGH RISK Performed By: #### I NFLUAB #### [facility] [address] [address] [address] Tom Dotson Cholesterol [Mass/Vol] 135 mg/dL Normal <=200 [facility] Comment on above: Performed By: #### I NFLUAB #### [facility] [address] [address] [address] Tom Dotson Cholesterol in HDL [Mass/Vol] 51 mg/dL Normal 40-60 [facility] Comment on above: Performed By: #### I NFLUAB #### [facility] [address] [address] [address] Tom Dotson Cholesterol in LDL [Mass/Vol] 74.4 mg/dL Normal [facility] Comment on above: Performed By: #### I NFLUAB #### [facility] [address] [address] [address] Tom Dotson Cholesterol.total/Ch olesterol in HDL [Mass ratio] 2.6 {ratio} Normal [facility] Comment on above: Performed By: #### I NFLUAB #### [facility] [address] [address] [address] Tom Dotson HDL NORMAL > or = 60 mg/dl - LOW CARDIOVASCULAR RISK <40 mg/dl - HIGH CARDIOVASCULAR RISK Normal [facility] Comment on above: Performed By: #### I NFLUAB #### [facility] [address] [address] [address] Tom Dotson LDL CALC NORMAL SEE BELOW Normal [facility] [place] [facility] Comment on above: Result Comment: <100 mg/dl OPTIMAL 100 - 129 mg/dl NEAR OR ABOVE OPTIMAL 130 - 159 mg/dl BORDERLINE HIGH 160 - 189 mg/dl HIGH >190 mg/dl VERY HIGH Performed By: #### I NFLUAB #### [facility] [address] [place] [address] Dr. Tom Dotson Triglyceride [Mass/Vol] 48 mg/dL Normal <=150 [facility] Comment on above: Performed By: #### I NFLUAB #### [facility] [address] [address] [address] Tom Dotson VLDL CALC 9.6 mg/dL Normal [facility] Comment on above: Performed By: #### I NFLUAB #### [facility] [address] [address] [address] Tom Dotson PROF 14(COMP METB)on 022 Albumin [Mass/Vol] 3.8 g/dL Normal 3.4-5.0 [facility] Comment on above: Performed By: #### I NFLUAB #### [facility] [address] [place] [address] Dr. Tom Dotson Albumin/Globulin [Mass ratio] 1.1 {ratio} Normal [facility] Comment on above: Performed By: #### I NFLUAB #### [facility] [address] [place] [address] Dr. Tom Dotson ALP [Catalytic activity/Vol] 62 U/L Normal 46-116 [facility] Comment on above: Performed By: #### I NFLUAB #### [facility] [address] [place] [address] Dr. Tom Dotson ALT [Catalytic activity/Vol] 25 U/L Normal 16-63 [facility] Comment on above: Performed By: #### I NFLUAB #### [facility] [address] [place] [address] Dr. Tom Dotson Anion gap [Moles/Vol] 9.8 mmol/L Normal [facility] Comment on above: Performed By: #### I NFLUAB #### [facility] [address] [place] [address] Dr. Tom Dotson AST [Catalytic activity/Vol] 15 U/L Normal 15-37 [facility] Comment on above: Performed By: #### I NFLUAB #### [facility] [address] [address] [address] Tom Dotson Bilirubin [Mass/Vol] 0.9 mg/dL Normal 0.2-1.0 [facility] Comment on above: Performed By: #### I NFLUAB #### [facility] [address] [address] [address] Tom Dotson Calcium [Mass/Vol] 8.8 mg/dL Normal 8.5-10.1 [facility] Comment on above: Performed By: #### I NFLUAB #### [facility] [address] [address] [address] Tom Dotson Chloride [Moles/Vol] 102 mmol/L Normal 98-107 [facility] Comment on above: Performed By: #### I NFLUAB #### [facility] [address] [place] [address] Dr. Tom Dotson CO2 [Moles/Vol] 30.5 mmol/L Normal 21.0-32.0 [facility] Comment on above: Performed By: #### I NFLUAB #### [facility] [address] [place] [address] Dr. Tom Dotson Creatinine [Mass/Vol] 0.95 mg/dL Normal 0.70-1.30 [facility] Comment on above: Performed By: #### I NFLUAB #### [facility] [address] [place] [address] Dr. Tom Dotson EGFR-AF CZECH >60 Normal >=60 [facility] Comment on above: Performed By: #### I NFLUAB #### [facility] [address] [place] [address] Dr. Tom Dotson EGFR-NON AF CZECH >60 Normal >=60 [facility] Comment on above: Performed By: #### I NFLUAB #### [facility] [address] [place] [address] Dr. Tom Dotson Globulin (S) [Mass/Vol] 3.4 g/dL Normal [facility] Comment on above: Performed By: #### I NFLUAB #### [facility] [address] [address] [address] Tom Dotson Glucose [Mass/Vol] 85 mg/dL Normal 74-106 [facility] Comment on above: Performed By: #### I NFLUAB #### [facility] [address] [address] [address] Tom Dotson Potassium [Moles/Vol] 4.3 mmol/L Normal 3.5-5.1 [facility] Comment on above: Performed By: #### I NFLUAB #### [facility] [address] [address] [address] Tom Dotson Protein [Mass/Vol] 7.2 g/dL Normal 6.4-8.2 [facility] Comment on above: Performed By: #### I NFLUAB #### [facility] [address] [address] [address] Tom Dotson Sodium [Moles/Vol] 138 mmol/L Normal 136-145 [facility] Comment on above: Performed By: #### I NFLUAB #### [facility] [address] [address] [address] Tom Dotson Urea nitrogen [Mass/Vol] 14.0 mg/dL Normal 7.0-18.0 [facility] Comment on above: Performed By: #### I NFLUAB #### [facility] [address] [address] [address] Tom Dotson Urea nitrogen/Creatinine [Mass ratio] 14.7 mg/mg Normal [facility] Comment on above: Performed By: #### I NFLUAB #### [facility] [address] [address] [address] Tom Dotson TSHon 03-06-2022 TSH 1.010 uIU/mL Normal 0.358-3.740 [facility] Comment on above: Performed By: #### I NFLUAB #### [facility] [address] [address] [address] Tom Dotson Hepatic Panelon 09-02-2019 Albumin [Mass/Vol] 3.2 g/dL Normal 3.2-5.5 [facility] Comment on above: Performed By: #### H EPATIC, LIPID, TSH3 wRFLX, [id number] #### [facility] [address] Albumin/Globulin [Mass ratio] 1.1 {ratio} Normal [facility] Comment on above: Performed By: #### H EPATIC, LIPID, TSH3 wRFLX, [id number] #### [address] ALP [Catalytic activity/Vol] 38 U/L Normal 32-92 [facility] Comment on above: Performed By: #### H EPATIC, LIPID, TSH3 wRFLX, [id number] #### [address] ALT [Catalytic activity/Vol] 14 U/L Normal 10-60 [facility] Comment on above: Performed By: #### H EPATIC, LIPID, TSH3 wRFLX, [id number] #### [address] AST [Catalytic activity/Vol] 13 U/L Normal 10-42 [facility] Comment on above: Performed By: #### H EPATIC, LIPID, TSH3 wRFLX, [id number] #### [address] Bilirubin [Mass/Vol] 0.9 mg/dL Normal 0.3-1.2 [facility] Comment on above: Performed By: #### H EPATIC, LIPID, TSH3 wRFLX, [id number] #### [facility] [address] [place] [address] [place] Bilirubin,Indirect 0.8 mg/dL Normal [facility] Comment on above: Performed By: #### H EPATIC, LIPID, TSH3 wRFLX, [id number] #### [address] Bilirubin.direct [Mass/Vol] 0.1 mg/dL Normal 0.0-0.4 [facility] Comment on above: Performed By: #### H EPATIC, LIPID, TSH3 wRFLX, [id number] #### [facility] [address] Globulin (S) [Mass/Vol] 2.9 g/dL Normal [facility] Comment on above: Performed By: #### H EPATIC, LIPID, TSH3 wRFLX, [id number] #### [facility] [address] Protein [Mass/Vol] 6.1 g/dL Normal 6.1-7.9 [facility] Comment on above: Performed By: #### H EPATIC, LIPID, TSH3 wRFLX, [id number] #### [facility] [address] [place] [address] Lipid Panelon 09-02-2019 Cholesterol [Mass/Vol] 158 mg/dL Normal 140-200 [facility] Comment on above: Result Comment: Chol less than 200 mg/dl low risk Chol 201-239 mg/dl borderline risk Chol 240 mg/dl and greater high risk Performed By: #### H EPATIC, LIPID, TSH3 wRFLX, [id number] #### [facility] [address] [place] [address] Cholesterol in HDL [Mass/Vol] 61 mg/dL Normal 29-71 [facility] Comment on above: Result Comment: HDL CHOL ATP-III CLASSIFICATION Cardiovascular Risk HDL > or equal to 60 mg/dL LOW HDL < 40 mg/dL HIGH Performed By: #### H EPATIC, LIPID, TSH3 wRFLX, [id number] #### [facility] [address] Cholesterol.total/Ch olesterol in HDL [Mass ratio] 2.6 {ratio} Normal <5.0 [facility] Comment on above: Performed By: #### H EPATIC, LIPID, TSH3 wRFLX, [id number] #### [facility] [address] LDL Cholesterol,Calculat ed 84 mg/dL Normal 0-100 [facility] Comment on above: Result Comment: LDL ATP III CLASSIFICATION LDL less than 100 mg/dL Optimal LDL 100-129 mg/dL Near or above optimal LDL 130-159 mg/dL Borderline high LDL 160-189 mg/dL High LDL greater than 189 mg/dL Very high Performed By: #### H EPATIC, LIPID, TSH3 wRFLX, [id number] #### [facility] [address] Triglyceride w/Reflex 63 mg/dL Normal 35-149 [facility] Comment on above: Result Comment: TRIG ATP III CLASSIFICATION TRIG less than 150 mg/dL Normal TRIG 150-199 mg/dL Borderline high TRIG 200-500 mg/dL High TRIG greater than 500 mg/dL Very high Standard traceable to the Center for Disease Conrtrol and Prevention (CDC) test method. Performed By: #### H EPATIC, LIPID, TSH3 wRFLX, [id number] #### [facility] [address] VLDL CHOLESTEROL 12 mg/dL Normal [facility] Comment on above: Performed By: #### H EPATIC, LIPID, TSH3 wRFLX, [id number] #### [facility] [address] Thyroid Stim Hormone w/Rflxo n 09-02-2019 Thyroid Stim Hormone w/Rflx 1.92 u[iU]/mL Normal 0.45-5.33 [facility] Comment on above: Performed By: #### H EPATIC, LIPID, TSH3 wRFLX, [id number] #### [facility] [address] Vitamin D 25 Hydroxy Totalon 09-02-2019 Vitamin D 25 Hydroxy Total 11.9 ng/mL Low 30-100 [facility] Comment on above: Result Comment: DAE MIN D STATUS 25(OH)VITAMIN D RANGE (ng/mL) Deficient <20 Insufficient 20 to <30 Sufficient 30 to 100 Reference: Darrion MF,Zane LO, Hanna AVELAR, et al. Evaluation,treatment, and prevention of vitamin D deficiency; an Endocrine Society clinical practice guideline. JCEM. 2010; 96(7):1911-30. PERFORMED BY: [facility] [address] [id number] PATHOLOGIST ENGINEERING TEST SPECIALIST MIGUELINA FLOOD M.D. Performed By: #### H EPATIC, LIPID, TSH3 wRFLX, [id number] #### [facility] [address] [place] [address] [facility] Vital Signs Date Time Vital Sign Value Performing Clinician Madan mayer 05-17-2025 15:38-0400 Body mass index (BMI) [Ratio] 27.86 kg/m2 Azul Damien [employer] Work Phone: [facility] 05-17-2025 15:38-0400 Body temperature 97.81 [degF] Azul Rosaholz [employer] K[employer]PER Work Phone: [facility] 05-17-2025 15:38-0400 Body weight 95.8 kg Azul Rosaholz [employer] K[employer]PER Work Phone: [facility] 05-17-2025 15:38-0400 Diastolic blood pressure 76 mm[Hg] Azul Leidymaxholz [employer] KEEPER Work Phone: [facility] 05-17-2025 15:38-0400 Heart rate 84 /min Azul Aichholz [employer] K[employer]PER Work Phone: [facility] 05-17-2025 15:38-0400 Respiratory rate 24 /min Azul Aichholz [employer] K[employer]PER Work Phone: [facility] 05-17-2025 15:38-0400 SaO2% (BldA) [Mass fraction] 94 % Azul Maria Luzz [employer] K[employer]PER Work Phone: [facility] 05-17-2025 15:38-0400 Systolic blood pressure 124 mm[Hg] Azul Aichholz [employer] K[employer]PER Work Phone: [facility] 02-15-2025 13:54-0400 Body mass index (BMI) [Ratio] 27.42 kg/m2 Azul Aichholz [employer] K[employer]PER Work Phone: [facility] 02-15-2025 13:54-0400 Body temperature 99 [degF] Azul Rosaholz [employer] K[employer]PER Work Phone: [facility] 02-15-2025 13:54-0400 Body weight 94.26 kg Azul Leidyhholz RES[employer] KEEPER Work Phone: [facility] 02-15-2025 13:54-0400 Diastolic blood pressure 62 mm[Hg] Azul Aichholz [employer] K[employer]PER Work Phone: [facility] 02-15-2025 13:54-0400 Heart rate 88 /min Azul Aichholz [employer] K[employer]PER Work Phone: [facility] 02-15-2025 13:54-0400 Respiratory rate 24 /min Azul Aichholz [employer] KEEPER Work Phone: [facility] 02-15-2025 13:54-0400 SaO2% (BldA) [Mass fraction] 92 % Azul Aichholz [employer] K[employer]PER Work Phone: [facility] 02-15-2025 13:54-0400 Systolic blood pressure 100 mm[Hg] Azul Aichholz [employer] K[employer]PER Work Phone: [facility] 11-16-2024 14:25-0500 Body mass index (BMI) [Ratio] 25.57 kg/m2 Azul Leidyhholz [employer] K[employer]PER Work Phone: [facility] 11-16-2024 14:25-0500 Body temperature 99.39 [degF] Azul Leidyhholz [employer] K[employer]PER Work Phone: [facility] 11-16-2024 14:25-0500 Body weight 87.91 kg Azul Aichholz [employer] K[employer]PER Work Phone: [facility] 11-16-2024 14:25-0500 Diastolic blood pressure 68 mm[Hg] Azul Aichholz [employer] K[employer]PER Work Phone: [facility] 11-16-2024 14:25-0500 Heart rate 90 /min Azul Aichholz RES[employer] K[employer]PER Work Phone: [facility] 11-16-2024 14:25-0500 Respiratory rate 26 /min Azul Aichholz [employer] K[employer]PER Work Phone: [facility] 11-16-2024 14:25-0500 SaO2% (BldA) [Mass fraction] 92 % Azul Rosaholz [employer] KEEPER Work Phone: [facility] 11-16-2024 14:25-0500 Systolic blood pressure 100 mm[Hg] Azul Rosaholz [employer] KEEPER Work Phone: [facility] 08-16-2024 13:20-0500 Body height 185.4 cm Azul Rosaholz [employer] K[employer]PER Work Phone: [facility] 08-16-2024 13:20-0500 Body mass index (BMI) [Ratio] 25.17 kg/m2 Azul Rosaholz [employer] K[employer]PER Work Phone: [facility] 08-16-2024 13:20-0500 Body temperature 98.29 [degF] Azul Rosaholz RESORT KEEPER Work Phone: [facility] 08-16-2024 13:20-0500 Body weight 86.55 kg Azul Leidyhholz RESORT KEEPER Work Phone: [facility] 08-16-2024 13:20-0500 Diastolic blood pressure 78 mm[Hg] Azul Rosaholz RESORT KEEPER Work Phone: [facility] 08-16-2024 13:20-0500 Heart rate 77 /min Azul Rosaholz RESORT KEEPER Work Phone: [facility] 08-16-2024 13:20-0500 Respiratory rate 24 /min Azul Rosaholz RESORT KEEPER Work Phone: [facility] 08-16-2024 13:20-0500 SaO2% (BldA) [Mass fraction] 97 % Azul Rosaholz RESORT KEEPER Work Phone: [facility] 08-16-2024 13:20-0500 Systolic blood pressure 116 mm[Hg] Azul Aichholz RESORT KEEPER Work Phone: [facility] 05-31-2024 13:20-0400 Body height 185.4 cm Ibeth Argueta DO Work Phone: [facility] 05-31-2024 13:20-0400 Body mass index (BMI) [Ratio] 23.67 kg/m2 Ibeth Argueta DO Work Phone: [facility] 05-31-2024 13:20-0400 Body weight 81.38 kg Ibeth Argueta DO Work Phone: [facility] 05-31-2024 13:20-0400 Diastolic blood pressure 66 mm[Hg] Ibeth Argueta DO Work Phone: [facility] 05-31-2024 13:20-0400 Heart rate 70 /min Ibeth Argueta DO Work Phone: [facility] 05-31-2024 13:20-0400 Respiratory rate 12 /min Ibeth Argueta DO Work Phone: [facility] 05-31-2024 13:20-0400 SaO2% (BldA) [Mass fraction] 98 % Ibeth Argueta DO Work Phone: [facility] 05-31-2024 13:20-0400 Systolic blood pressure 110 mm[Hg] Ibeth Argueta DO Work Phone: [facility] 05-19-2024 14:17-0400 Body height 185.4 cm Azul Quezada RESORT KEEPER Work Phone: [facility] 05-19-2024 14:17-0400 Body mass index (BMI) [Ratio] 23.62 kg/m2 Azul Quezada RESORT KEEPER Work Phone: [facility] 05-19-2024 14:17-0400 Body temperature 98.01 [degF] Azul Quezada RESORT KEEPER Work Phone: [facility] 05-19-2024 14:17-0400 Body weight 81.19 kg Azul Quezada RESORT KEEPER Work Phone: [facility] 05-19-2024 14:17-0400 Diastolic blood pressure 64 mm[Hg] Azul Aichholz RESORT KEEPER Work Phone: [facility] 05-19-2024 14:17-0400 Heart rate 79 /min Azul Aichholz RESORT KEEPER Work Phone: [facility] 05-19-2024 14:17-0400 Respiratory rate 22 /min Azul Aichholz RESORT KEEPER Work Phone: [facility] 05-19-2024 14:17-0400 SaO2% (BldA) [Mass fraction] 94 % Azul Aichholz RESORT KEEPER Work Phone: [facility] 05-19-2024 14:17-0400 Systolic blood pressure 90 mm[Hg] Azul Aichholz RESORT KEEPER Work Phone: [facility] 10-30-2023 10:00-0500 Body height 185.4 cm Azul Aichholz RESORT KEEPER Work Phone: [facility] 10-30-2023 10:00-0500 Body mass index (BMI) [Ratio] 26.84 kg/m2 Azul Aichholz RESORT KEEPER Work Phone: [facility] 10-30-2023 10:00-0500 Body temperature 97.11 [degF] Azul Aichholz RESORT KEEPER Work Phone: [facility] 10-30-2023 10:00-0500 Body weight 92.26 kg Azul Aichholz RESORT KEEPER Work Phone: [facility] 10-30-2023 10:00-0500 Diastolic blood pressure 78 mm[Hg] Azul Aichholz RESORT KEEPER Work Phone: [facility] 10-30-2023 10:00-0500 Heart rate 83 /min Azul Aichholz RESORT KEEPER Work Phone: [facility] 10-30-2023 10:00-0500 Respiratory rate 16 /min Azul Aichholz RESORT KEEPER Work Phone: [facility] 02-08-2024 10:00-0500 SaO2% (BldA) [Mass fraction] 94 % Azlu Leidymaxrani RESORT KEEPER Work Phone: [facility] 10-30-2023 10:00-0500 Systolic blood pressure 138 mm[Hg] Azul Leerani RESORT KEEPER Work Phone: [facility] Encounters Encounter Date Encounter Type Care Provider Facility Start: 05-17-2025 End: 05-17-2025 Transitional care manage srvc 7 day discharge Azul Damien RESORT KEEPER Work Phone: [facility] Comment on above: Centrilobular emphys promise (HCC) (Primary Dx); Tourette's ; Bilateral carotid artery stenosis; Rising PSA level; Mixed hyperlipidemia ; Depression with anxiety; Former smoker; Elevated glucose; Pain of right hip Start: 05-17-2025 End: 05-17-2025 ambulatory AZUL DAMIEN Not Available Start: 05-17-2025 End: 05-17-2025 Bamboo flowsheet Azul Damien RESORT KEEPER Work Phone: [facility] Start: 05-17-2025 End: 05-17-2025 Bamboo flowsheet Azul Damien RESORT KEEPER Work Phone: [facility] Start: 02-15-2025 End: 02-15-2025 Bamboo flowsheet Azul Damien RESORT KEEPER Work Phone: [facility] Start: 02-15-2025 End: 02-15-2025 Bamboo flowsheet Azul Damien RESORT KEEPER Work Phone: [facility] Start: 02-15-2025 End: 02-15-2025 Office outpatient visit 25 minutes Azul Quezada RESORT KEEPER Work Phone: [facility] Comment on above: Depression with anxi ety (Primary Dx); Cerebrovascular accident (CVA), unspecified mechanism (CMS/HCC); Overweight (BMI 25.0-29.9); Centrilobular emphysema (CMS/HCC); Insomnia, unspecified Start: 02-15-2025 End: 02-15-2025 ambulatory AZUL LEIDYMaxRANI Not Available Start: 12-27-2024 End: 12-27-2024 Refill Azul Leerani RESORT KEEPER Work Phone: [facility] Comment on above: Mixed hyperlipidemia (CMS/HCC) Start: 11-16-2024 End: 11-16-2024 Bamboo flowsheet Azul Damien RESORT KEEPER Work Phone: [facility] Start: 11-16-2024 End: 11-16-2024 Bamboo flowsheet Azulailyn Leerani RESORT KEEPER Work Phone: [facility] Start: 11-16-2024 End: 11-16-2024 Clinisync Result Encounter Azul Leerani RESORT KEEPER Work Phone: [facility] Unsolicited Start: 11-16-2024 End: 11-16-2024 Patient encounter procedure Azul Leerani RESORT KEEPER Work Phone: [facility] Comment on [...] 09-06-2024 End: 09-07-2024 Clinisync Result Encounter Azul Damein RESORT KEEPER Work Phone: [facility] Unsolicited Start: 09-06-2024 End: 09-07-2024 Clinisync Result Encounter Azul Leerani RESORT KEEPER Work Phone: [facility] Unsolicited Start: 08-16-2024 End: 08-16-2024 Bamboo flowsheet Azul Quezada RESORT KEEPER Work Phone: [facility] Start: 08-16-2024 End: 08-16-2024 Bamboo flowsheet Azul Quezada RESORT KEEPER Work Phone: [facility] Start: 08-16-2024 End: 08-16-2024 Office outpatient visit 25 minutes Azul Quezada RESORT KEEPER Work Phone: [facility] Comment on [...] Start: 06-02-2024 End: 06-02-2024 Refill Azul Quezada RESORT KEEPER Work Phone: [facility] Comment on above: Depression with anxi ety; Insomnia, unspecified; Mixed hyperlipidemia (CMS/HCC) Start: 06-01-2024 End: 06-01-2024 Orders Only Azul Quezada RESORT KEEPER Work Phone: [facility] Comment on above: Rising PSA level (Pr imary Dx) Start: 05-31-2024 End: 05-31-2024 Clinisync Result Encounter Azul Quezada RESORT KEEPER Work Phone: [facility] Unsolicited Start: 05-31-2024 End: 05-31-2024 Clinisync Result Encounter Azul Quezada NP Work Phone: [facility] Unsolicited Start: 05-31-2024 End: 05-31-2024 Patient encounter procedure Ibeth Argueta DO Work Phone: [facility] Comment on above: Screening for malign ant neoplasm of colon (Primary Dx) Start: 05-31-2024 End: 05-31-2024 ambulatory IBETH ARGUETA Not Available Start: 05-19-2024 End: 05-19-2024 Bamboo flowsheet Azul Quezada RESORT KEEPER Work Phone: [facility] Start: 05-19-2024 End: 05-19-2024 Bamboo flowsheet Azul Quezada RESORT KEEPER Work Phone: [facility] Start: 05-19-2024 End: 05-19-2024 Office outpatient visit 25 minutes Azul Quezada NP Work Phone: [facility] Comment on above: Depression with anxi ety (Primary Dx); Screening for prostate cancer; Smoker; Mixed hyperlipidemia (CMS/HCC); Sessile colonic polyp; Centrilobular emphysema (CMS/HCC); Bilateral carotid artery stenosis; Right hand pain Start: 01-14-2024 End: 03-11-2024 Telephone encounter Grace Moore RN [facility] Start: 11-13-2023 Patient encounter procedure Azul Quezada NP Work Phone: [facility] Start: 10-30-2023 End: 10-30-2023 Office outpatient [...] Department Unsolicited Start: 09-25-2022 End: 09-25-2022 ambulatory CASTING TECHNICIAN AZUL LEIDYMaxMERYMichele Facility:[facility] Start: 04-16-2022 End: 04-17-2022 ambulatory JAMESON WHITE Facility:[facility] Start: 04-10-2022 End: 04-11-2022 ambulatory JAMESON WHITE Facility:[facility] Start: 03-06-2022 End: 03-07-2022 ambulatory ZANE LEEMERYMichele Facility:[facility] Procedures Date Procedure Procedure Detail Performing Clinician Start: 11-16-2024 XR CHEST 2V Azul Zain celeste RESORT KEEPER Work Phone: Start: 10-22-2024 ALL HEMOGLOBIN Generic External Data Provider Start: 09-06-2024 PSA TOTAL+% FREE Azul A primo RESORT KEEPER Work Phone: Start: 07-06-2024 ALL CBC WITH AUTO DIFF Generic External Data Provider Start: 06-15-2024 Colonoscopy Generic Pr ovider Start: 05-31-2024 TBH UA (CLEAN/CATCH) MICROSCOPIC IF INDICATE Azul Quezada RESORT KEEPER Work Phone: Start: 10-21-2023 BLOOD CULTURE 2 Generic External Data Provider Start: 10-21-2023 BLOOD CULTURE 1 Generic External Data Provider Start: 03-06-2022 PSA screening JAMESON VU [facility] Comment on above: Performed By: #### P [facility] #### [facility] [address] [place] [address] Dr. Tom Dotson Start: 02-07-2022 Adult depression scr eening assessment Grace Moore RN Plan of Treatment Date Care Activity Detail Author Start: 06-15-2029 Screening for malign ant neoplasm of colon [facility] Start: 11-21-2025 End: 11-21-2025 Patient encounter procedure 11/21/2025 4:30 PM EST Office Visit [facility] [address] [place] [address] Azul Quezada NP [address] [place] [id number] [facility] Start: 11-16-2025 Medicare Annual Well ness (AWV) Medicare Annual Wellness (AWV) [facility] Start: 07-18-2025 End: 07-18-2025 Patient encounter procedure 07/18/2025 1:20 PM EDT Office Visit [facility] [address] [place] [phone] Azul Quezada, RESORT KEEPER [address] [place] [phone] [facility] Start: 2025 Influenza vaccination Influenza Vacc ine (#1) [facility] Start: 05-17-2025 End: 05-17-2025 Patient encounter procedure 05/17/2025 3:20 PM EDT Office Visit [facility] [address] [place] [phone] Azul Quezada, RESORT KEEPER [address] [place] [phone] Tourette's (Primary Dx); Centrilobular emphysema (HCC); Bilateral carotid artery stenosis; Rising PSA level; Mixed hyperlipidemia ; Depression with anxiety; Former smoker; Elevated glucose [facility] Comment on above: Tourette's (Primary Dx); Centrilobular emphysema (HCC); Bilateral carotid artery stenosis; Rising PSA level; Mixed hyperlipidemia ; Depression with anxiety; Former smoker; Elevated glucose Start: 05-17-2025 End: 05-17-2026 Comprehensive metabolic 2000 panel - Serum or Plasma Comprehensive metabolic panel Lab Routine Mixed hyperlipidemia Elevated glucose Expected: 05/17/2025 (Approximate), Expires: 05/17/2026 [facility] Comment on above: Expected: 05/17/2025 (Approximate), Expires: 05/17/2026 Start: 05-17-2025 End: 05-17-2026 Hemoglobin A1c/Hemoglobin.total in Blood Hemoglobin A1c Lab Routine Elevated glucose Expected: 05/17/2025 (Approximate), Expires: 05/17/2026 [facility] Comment on above: Expected: 05/17/2025 (Approximate), Expires: 05/17/2026 Start: 05-17-2025 End: 05-17-2026 Lipid 1996 panel - Serum or Plasma Lipid panel Lab Routine Mixed hyperlipidemia Expected: 05/17/2025 (Approximate), Expires: 05/17/2026 [facility] Comment on above: Expected: 05/17/2025 (Approximate), Expires: 05/17/2026 Start: 05-17-2025 End: 05-17-2026 PSA, total and free PSA, total and free Lab Routine Rising PSA level Expected: 05/17/2025 (Approximate), Expires: 05/17/2026 [facility] Work Phone: Comment on above: Expected: 05/17/2025 (Approximate), Expires: 05/17/2026 Start: 05-17-2025 End: 05-17-2026 Thyrotropin [Units/volume] in Serum or Plasma TSH Lab Routine Depression with anxiety Expected: 05/17/2025 (Approximate), Expires: 05/17/2026 [facility] Comment on above: Expected: 05/17/2025 (Approximate), Expires: 05/17/2026 Start: 05-17-2025 End: 05-17-2026 Urinalysis complete panel - Urine Urinalysis with reflex microscopic (clean catch) Lab Routine Former smoker Expected: 05/17/2025 (Approximate), Expires: 05/17/2026 [facility] Comment on above: Expected: 05/17/2025 (Approximate), Expires: 05/17/2026 Start: 05-17-2025 End: 05-17-2026 XR Hip - right 3 Views XR hip right 2 or 3 views Imaging Routine Pain of right hip Expected: 05/17/2025, Expires: 05/17/2026 [facility] Comment on above: Expected: 05/17/2025 , Expires: [...] exacerbation (CMS/HCC) Expected: 11/16/2024 (Approximate), Expires: 11/16/2025 [facility] Work Phone: Comment on above: Expected: 11/16/2024 (Approximate), Expires: 11/16/2025 Start: 11-13-2024 Medicare Annual Well ness (AWV) Medicare Annual Wellness (AWV) [facility] Start: 08-16-2024 End: 08-16-2024 Patient encounter procedure [facility] Comment on above: Primary insomnia (Pr imary Dx); Cerebrovascular accident (CVA), unspecified mechanism (CMS/HCC); Centrilobular emphysema (CMS/HCC); Bilateral carotid artery stenosis; Sessile colonic polyp; Smoker; Depression with anxiety Start: 08-04-2024 Screening for malign ant neoplasm of colon [facility] Start: 06-01-2024 End: 06-01-2025 PSA, total and free PSA, total and free Lab Routine Rising PSA level Expected: 06/01/2024 (Approximate), Expires: 06/01/2025 [facility] Work Phone: Comment on above: Expected: 06/01/2024 (Approximate), Expires: 06/01/2025 Start: 2024 Influenza vaccination N [facility] Start: 05-19-2024 End: 05-19-2025 CBC W Auto Differential panel - Blood CBC and differential Lab Routine Smoker Expected: 05/19/2024 (Approximate), Expires: 05/19/2025 [facility] Work Phone: Comment on above: Expected: 05/19/2024 (Approximate), Expires: 05/19/2025 Start: 05-19-2024 End: 05-19-2025 Comprehensive metabolic 2000 panel - Serum or Plasma Comprehensive metabolic panel Lab Routine Depression with anxiety Mixed hyperlipidemia (CMS/HCC) Expected: 05/19/2024 (Approximate), Expires: 05/19/2025 [facility] Comment on above: Expected: 05/19/2024 (Approximate), Expires: 05/19/2025 Start: 05-19-2024 End: 05-19-2025 Lipid 1996 panel - Serum or Plasma Lipid panel Lab Routine Mixed hyperlipidemia (CMS/HCC) Expected: 05/19/2024 (Approximate), Expires: 05/19/2025 [facility] Comment on above: Expected: 05/19/2024 (Approximate), Expires: 05/19/2025 Start: 05-19-2024 End: 05-19-2024 Patient encounter procedure 05/19/2024 2:00 PM EDT Office Visit [facility] [address] [place] [address] Azul Quezada NP [address] [place] [address] Screening for prostate cancer (Primary Dx); Smoker; Depression with anxiety; Mixed hyperlipidemia (CMS/HCC) [facility] Comment on above: Screening for prosta te cancer (Primary Dx); Smoker; Depression with anxiety; Mixed hyperlipidemia (CMS/HCC) Start: 05-19-2024 End: 05-19-2025 Prostate specific Ag [Mass/volume] in Serum or Plasma PSA Lab Routine Screening for prostate cancer Expected: 05/19/2024 (Approximate), Expires: 05/19/2025 [facility] Comment on above: Expected: 05/19/2024 (Approximate), Expires: 05/19/2025 Start: 05-19-2024 End: 05-19-2025 Urinalysis complete panel - Urine Urinalysis with reflex microscopic (clean catch) Lab Routine Smoker Expected: 05/19/2024 (Approximate), Expires: 05/19/2025 [facility] Comment on above: Expected: 05/19/2024 (Approximate), Expires: 05/19/2025 Start: 03-21-2024 Influenza vaccination Influenza Vacc ine (#1) [facility] Comment on above: Postponed from 05/23 (Patient Refused) Start: 01-14-2024 End: 01-13-2025 US Carotid arteries - bilateral Vas carotid duplex bilateral Vascular Ultrasound Routine Internal carotid artery stenosis, right Expected: 01/14/2024, Expires: 01/13/2025 [facility] Work Phone: Comment on above: Expected: 01/14/2024 , Expires: 01/13/2025 Start: 11-13-2023 End: 11-13-2023 Patient encounter procedure 11/13/2023 9:40 AM EST Office Visit [facility] [address] [place] [address] Azul Quezada, RESORT KEEPER [address] [place] [phone] [facility] Start: 10-30-2023 End: 10-30-2023 Patient encounter procedure 10/30/2023 10:00 AM EST Office Visit [facility] [address] [place] [address] Azul Quezada, RESORT KEEPER [address] [place] [phone] [facility] Start: 2023 Influenza vaccination Influenza Vacc ine (#1) [facility] Start: 03-08-2023 Adult BMI Screening Adult BMI Screen ing [facility] Start: 03-08-2023 Tobacco Screening Tobacco Screening [facility] Start: 02-07-2023 Depression Screening Depression Scre ening [facility] Start: 2010 Administration of varicella zoster vaccine Zoster (Shingles) Vaccine (1 of 2) [facility] Start: 1979 DTaP,Tdap and Td Vac cines (1 - Tdap) DTaP,Tdap and Td Vaccines (1 - Tdap) [facility] Start: 1960 Medicare Annual Well ness (AWV) Medicare Annual Wellness (AWV) [facility] Start: 1960 Screening for malign ant neoplasm of colon [facility] Start: 1960 Screening for malign ant neoplasm of lung Lung Cancer Screening Shared Decision Making [facility] BLOOD CULTURE 1 BLOOD CULTURE 1 Lab Routine 10/21/2023 12:27 PM EST [facility] BLOOD CULTURE 2 BLOOD CULTURE 2 Lab Routine 10/21/2023 12:30 PM EST [facility] Immunizations Immunization Date Immunization Notes Care Provider Fa cility 08-30-2024 ABRYSVO - Respirator y syncytial virus (RSV), vaccine, bivalent, protein subunit RSV prefusion F, diluent reconstituted, 0.5 mL, PF Azul Aichholz RESORT KEEPER Work Phone: [facility] 08-16-2024 Influenza, injectabl e, Madin [place] Canine Kidney, preservative free, quadrivalent Azul Aichholz RESORT KEEPER Work Phone: [facility] 08-16-2024 influenza virus vaccine, unspecified formulation Azul Aichholz RESORT KEEPER Work Phone: [facility] 2020 influenza, live, intranasal, quadrivalent Azul Aichholz RESORT KEEPER Work Phone: [facility] 2020 influenza virus vaccine, unspecified formulation Generic Provider [facility] 08-04-2019 influenza, high dose seasonal, preservative-free Azul Aichholz RESORT KEEPER Work Phone: [facility] 07-05-2015 influenza, injectabl e, quadrivalent, preservative free Azul Aichholz RESORT KEEPER Work Phone: [facility] 07-05-2015 influenza virus vaccine, unspecified formulation Grace Moore RN [facility] Payers Date Payer Category [place]ayer [place] [id number] 2019-Present [phone] [address] [place] [address] [id number] 1993 Medicare [id number] 1993 Medicare [id number] 1960 Unknown [id number] 1960 Unknown [id number] 1960 Unknown [id number] 1960 Unknown [id number] 1960 Unknown [id number] 1960 Unknown [id number] 1960 Unknown [id number] 1960 Unknown [id number] 1960 Unknown [id number] 1959 Medicaid [id number] 1959 Unknown [id number] Social History Date Type Detail Facility Tobacco smoking stat [facility] Tobacco smoking consumption unknown [facility] Start: 1960 Sex Assigned At Not on file [facility] Start: 10-30-2023 End: 11-13-2023 Gender identity Not on file [facility] Start: 10-30-2023 Tobacco smoking status GAIS Ex-smoker [facility] Start: 03-22-1984 End: 03-22-2019 [...] to any clubs or organizations such as congregation groups, unions, [employer] or athletic groups, or school groups? Yes [facility] Are you now , , , , never or living with a partner? [facility] How often to you hav e a drink containing alcohol? Never [facility] How many standard dr inks containing alcohol do you have on a typical day? Patient does not drink [facility] Do you feel stress - tense, restless, nervous, or anxious, or unable to sleep at night because your mind is troubled all the time - these days [OSQ] Only a little [facility] (I/We) worried wheth er (my/our) food would run out before (I/we) got money to buy more. Never true [facility] Start: 02-08-2021 Tobacco smoking status NHIS Smokes tobacco daily [facility] Start: 03-08-2022 Alcoholic beverage intake Ex-drinker (finding) [facility] Are you now , , , , never or living with a partner? Living with partner [facility] How often to you hav e a drink containing alcohol? Monthly or less [facility] Do you feel stress - tense, restless, nervous, or anxious, or unable to sleep at night because your mind is troubled all the time - these days [OSQ] Not at all [facility] Start: 12-21-2020 Tobacco Comment quit 4 days ago as of 12/21/20 [facility] Medical Equipment Procedure Code Equipment Code Equipment Origin al Text Equipment Identifier Dates Stnt Vsc 8/6mm 6 fr 30mm 135cm - [id number] Start: 06-12-2020 Goals Date Patient Goal Desired [...] xray and go from there Request for [facility] pulmonology 02 at 2L aat Pt uses [...] tightness Pt [facility] [place] Images from the original note were not included. Sam Kramer is a 64 y.o. 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, 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 needs a new senior information security analyst and needs a referral to [facility] Chest CT 09/14 new lung masses Current meds: albuterol, Ensifentrine, symbicort, spiriva respimat Associated Problem(s): Terry's No current med use for this documented in this encounter [facility] 05-17-2025 Instructions Azul Quezada NP - 05/17/2025 3:20 PM EDT Refer to dr jansen lung doctor Thuy Rai xray hip documented in this encounter [facility] 02-15-2025 History of Presen t illness Narrative [...] as he feels this could result in mcc damage to his lungs SUBJECTIVE: MEDICATIONS: Current [...] artery stenosis Calcified lymph nodes Centrilobular emphysema ([facility]) COVID-19 07/2019 CVA (cerebral vascular accident) ([facility]) Degenerative cervical disc Depression with anxiety Insomnia Marijuana abuse 10/30/2023 Multiple pulmonary nodules Neck mass 2014 Osteoarthritis Papule of skin 11/13/2023 Pigmented skin lesion of uncertain nature Rheumatic fever Stroke ([facility]) 07/2020 Testicle lump Tourette's (CMS/HCC) Vertebral [...] directed by neurology documented in this encounter [facility] 02-15-2025 Instructions Azul Quezada NP - 02/15/2025 1:40 PM EDT Return the patient assistance medication forms and we can try to help you get the medications (inhaler) documented in this encounter [facility] 11-16-2024 History of Presen t illness Narrative [...] directed by neurology documented in this encounter [facility] 11-16-2024 Instructions Azul Quezada NP - 11/16/2024 2:00 PM EST Get back into see dr white No dose changes in your meds Chest xray documented in this encounter [facility] 08-16-2024 History of Presen t illness Narrative [...] (CMS/HCC) COVID-19 07/2019 CVA (cerebral vascular accident) ([facility]) Degenerative cervical disc Depression with anxiety Insomnia Marijuana abuse 10/30/2023 Multiple pulmonary nodules Neck mass 2014 Osteoarthritis Papule of skin 11/13/2023 Pigmented skin lesion of uncertain nature Rheumatic fever Stroke ([facility]/HCC) 07/2020 Testicle lump Tourette's ([facility]) Vertebral artery occlusion Vocal cord [...] Relevant Orders Flu vaccine, MDCK, quadrivalent, PF ([id number]) (Flucelvax single dose syringe) (Completed) Former smoker [...] Continue with trazodone documented in this encounter [facility] 08-16-2024 Instructions Azul Quezada NP - 08/16/2024 1:20 PM EST Great job at quitting smoking Keep follow up with dr white as directed Follow up with Vascular doctor in [place] as well as directed documented in this encounter [facility] 05-31-2024 History of Presen t illness Narrative [...] artery stenosis Calcified lymph nodes Centrilobular emphysema ([facility]) COVID-19 07/2019 CVA (cerebral vascular accident) ([facility]) Degenerative cervical disc Depression with anxiety Insomnia Marijuana abuse 10/30/2023 Multiple pulmonary nodules Neck mass 2013 Osteoarthritis Papule of skin 11/13/2023 Pigmented skin lesion of uncertain nature Rheumatic fever Stroke ([facility]) 07/2020 Testicle lump Tourette's ([facility]) Vertebral artery occlusion Vocal cord [...] Partha Argueta DO documented in this encounter [facility] 05-19-2024 History of Presen t illness Narrative [...] artery stenosis Calcified lymph nodes Centrilobular emphysema ([facility]) COVID-19 07/2019 CVA (cerebral vascular accident) ([facility]) Degenerative cervical disc Depression with anxiety Insomnia Marijuana abuse 10/30/2023 Multiple pulmonary nodules Neck mass 2014 Osteoarthritis Papule of skin 11/13/2023 Pigmented skin lesion of uncertain nature Rheumatic fever Stroke ([facility]) 07/2020 Testicle lump Tourette's ([facility]) Vertebral artery occlusion Vocal cord [...] at this time documented in this encounter [facility] 01-14-2024 Miscellaneous Notes Per January 2024 recall, patient is due for routine CUS imaging per Dr. Terrell. Please call to remind patient and provide central scheduling number if needed. Will call with results once completed. Called patient, call went to but inbox was full and copy writer was unable to leave message reminder [...] if he could have it done in [place] at the [facility] facility there because he doesn't have a car and stated it would be impossible for him to make it to [place]. Community Health Advisor confirmed patient had central scheduling phone number to get the scans scheduled. Called patient and got VM but it was full so copy writer was unable to leave message reminding patient of imaging that is due. Attempted to call patient and got voicemail but copy writer was unable to leave message due to it being full. Will try again later and send letter with order via mail. Attempted to call patient and got voicemail but copy writer was unable to leave message due to it being full. Letter and order mailed to address on file. Will follow up in 1 month. Attempted to call patient and got voicemail but copy writer was unable to leave message due to it being full. documented in this encounter [facility] 01-14-2024 Telephone encounter Note Per January 2024 recall, patient is due for routine CUS imaging per Dr. Terrell. Please call to remind patient and provide central scheduling number if needed. Will call with results once completed. [facility] 01-14-2024 Telephone encounter Note Called patient, call went to but inbox was full and copy writer was unable to leave message reminder for imaging. Will try again later. [facility] 01-14-2024 Telephone encounter Note Received call today 01/14/24 1:05 from patient in regard to previous message and I informed him of clinical staff's messages below - he voiced understanding and I provided him with Central Scheduling phone# to schedule imaging. [facility] 01-14-2024 Telephone encounter Note Called patient and reminded of imaging that is due. He stated understanding and asked if he could have it done in [place] at the [facility] facility there because he doesn't have a car and stated it would be impossible for him to make it to [place]. Community Health Advisor confirmed patient had central scheduling phone number to get the scans scheduled. [facility] 01-14-2024 Telephone encounter Note Called patient and got VM but it was full so copy writer was unable to leave message reminding patient of imaging that is due. [facility] 01-14-2024 Telephone encounter Note Attempted to call patient and got voicemail but copy writer was unable to leave message due to it being full. Will try again later and send letter with order via mail. [facility] 01-14-2024 Telephone encounter Note Attempted to call patient and got voicemail but copy writer was unable to leave message due to it being full. Letter and order mailed to address on file. Will follow up in 1 month. [facility] 01-14-2024 Telephone encounter Note Attempted to call patient and got voicemail but copy writer was unable to leave message due to it being full. [facility] 10-30-2023 History of Presen t illness [...] on file. HPI: Recent hospitalization at [facility] for 3 days d/t influenza. Does [...] lesion of uncertain nature Rheumatic fever Stroke ([facility]) 07/2020 Testicle lump Tourette's ([facility]) Vertebral artery occlusion Vocal cord [...] remains off work documented in this encounter [facility] Healthcare Evaluation note Diagnosis Influenza- Primary Influenza with other respiratory manifestations Marijuana abuse Nondependent cannabis abuse, unspecified Smoker Tobacco use disorder BMI 26.0-26.9,adult Centrilobular emphysema (CMS/HCC) documented in this encounter [facility] HealthcareEvaluation note* Diagnosis Influenza- Primary Influenza with [...] stenosis, right- Primary [facility] Diagnosis Influenza- Primary Influenza [...] acute exacerbation (CMS/HCC) documented in this encounter [facility] HealthcareEvaluation note* Diagnosis Influenza- Primary Influenza with [...] (CMS/HCC) Mixed hyperlipidemia documented in this encounter [facility] HealthcareEvaluation note* Diagnosis Influenza- Primary Influenza with [...] encounter [facility] HealthcareInstructionsNot on filedocumented in this [facility]Pro[facility] for [facility] (narrative)* Consultation (Routine) - Pending Review Specialty Diagnoses / Procedures Referred By Demetrius ramirez Referred To Contact General Surgery Diagnoses Sessile colonic polyp Procedures [place] OFFICE/OUTPATIENT NEW HIGH MDM 60 MINUTES Azul Quezada NP [address] [place] [address] Ibeth Argueta DO [address] [facility] [address] [place] [address] Referral ID Status Reason Start Date Expiration Date Visits Requested Visits Authorized [id number] Pending Review Specialty Services Required 05/19/2024 11/15/2024 1 1 [facility] Healthcare Summary Purpose Family History No Family History Records FoundNo Family History Records FoundNo Family History Records Found Advance Directives No Advanced Directives Records FoundNo Advanced Directives Records FoundNo Advanced Directives Records Found Reason for Referral Specialty Diagnoses / Procedures Referred By Demetrius ramirez Referred To Contact Diagnoses Internal carotid artery stenosis, right Procedures Vas carotid duplex bilateral Andrew Terrell MD [address] [facility] [place] [address] Referral ID Status Reason Start Date Expiration Date V isits Requested Visits Authorized [id number] Pending Review 01/14/2024 01/13/2025 1 1 Additional Source Comments (unrecognized sect ion and content) No Status Records FoundNo Status Records FoundNo Status Records Found INFORMATION SOURCE (unrecogn ized section and content) DATE CREATED AUTHOR 09/04/2019 [facility] DATE CREATED AUTHOR AUTHOR'S ORGANIZ ATION 09/30/2022 [facility] DATE CREATED AUTHOR AUTHOR'S ORGANIZ ATION 05/19/2025 [facility] dical Specialists [facility] Care Teams (unrecognized sec tion and content) Mediation Commissioner Relationship Specialty Start Date End Date Kiko Zurita MD PCP - General Family Medicine 04/07/23 Azul Quezada NP [address] [place] [address] Referring Physician Nurse Practitioner 04/07/23 Mediation Commissioner Relationship Specialty Start Date End Date Kiko Zurita MD [address] [place] [address] PCP - General Family Medicine 10/24/23 Azul Quezada NP [address] [place] [address] Referring Physician Nurse Practitioner 04/07/23 Mediation Commissioner Relationship Specialty Start Date End Date Kiko Zurita MD [address] [place] [address] PCP - General Family Medicine 10/24/23 Azul Quezada NP [address] [place] [address] Referring Physician Nurse Practitioner 04/07/23 Mediation Commissioner Relationship Specialty Start Date End Date Kiko Zurita MD [address] [place] [address] PCP - General Family Medicine 10/24/23 Azul Quezada NP [address] [place] [address] Referring Physician Nurse Practitioner 04/07/23 Mediation Commissioner Relationship Specialty Start Date End Date Kiko Zurita MD [address] [place] [address] PCP - General Family Medicine 10/24/23 Azul Quezada NP [address] [place] [address] Referring Physician Nurse Practitioner 04/07/23 Mediation Commissioner Relationship Specialty Start Date End Date Kiko Zurita MD [address] [place] [address] PCP - General Family Medicine 10/24/23 Azul Quezada NP [address] [place] [address] Referring Physician Nurse Practitioner 04/07/23 Mediation Commissioner Relationship Specialty Start Date End Date Kiko Zurita MD [address] [place] [phone] PCP - General Family Medicine 10/24/23 Azul Quezada NP [address] [place] [address] Referring Physician Nurse Practitioner 04/07/23 Mediation Commissioner Relationship Specialty Start Date End Date Kiko Zurita MD [address] [place] [address] PCP - General Family Medicine 10/24/23 Azul Quezada NP [address] [place] [address] Referring Physician Nurse Practitioner 04/07/23 Mediation Commissioner Relationship Specialty Start Date End Date Kiko Zurita MD [address] [place] [address] PCP - General Family Medicine 10/24/23 Azul Quezada NP [address] [place] [address] Referring Physician Nurse Practitioner 04/07/23 Mediation Commissioner Relationship Specialty Start Date End Date Kiko Zurita MD [address] [place] [address] PCP - General Family Medicine 10/24/23 Azul Quezada NP [address] [place] [address] Referring Physician Nurse Practitioner 04/07/23 Mediation Commissioner Relationship Specialty Start Date End Date Kiko Zurita MD [address] [place] [address] PCP - General Family Medicine 10/24/23 Azul Quezada NP [address] [place] [address] Referring Physician Nurse Practitioner 04/07/23 Mediation Commissioner Relationship Specialty Start Date End Date Azul Quezada, POOL MANAGER-CASTING TECHNICIAN [address] [place] [address] PCP - General Nurse Practitioner 08/30/19 Mediation Commissioner Relationship Specialty Start Date End Date Kiko Zurita MD [address] [place] [address] PCP - General Family Medicine 10/24/23 Azul Quezada NP [address] [place] [address] PCP - ACO Reach 10/29/24 Azul Quezada NP [address] [place] [address] Referring Physician Nurse Practitioner 04/07/23 Mediation Commissioner Relationship Specialty Start Date End Date Kiko Zurita MD [address] [place] [address] PCP - General Family Medicine 10/24/23 Azul Quezaad NP [address] [place] [address] PCP - ACO Reach 10/29/24 Azul Quezada NP [address] [place] [address] Referring Physician Nurse Practitioner 04/07/23 Mediation Commissioner Relationship Specialty Start Date End Date Kiko Zurita MD [address] [place] [address] PCP - General Family Medicine 10/24/23 Azul Quezada NP [address] [place] [address] PCP - ACO Reach 10/29/24 Azul Quezada NP [address] [place] [address] Referring Physician Nurse Practitioner 04/07/23 Mediation Commissioner Relationship Specialty Start Date End Date Kiko Zurita MD [address] [place] [phone] PCP - General Family Medicine 10/24/23 Azul Quezada NP [address] [place] [address] PCP - ACO Reach 10/29/24 Azul Quezada NP [address] [place] [address] Referring Physician Nurse Practitioner 04/07/23 Mediation Commissioner Relationship Specialty Start Date End Date Kiko Zurita MD [address] [place] [address] PCP - General Family Medicine 10/24/23 Azul Quezada NP [address] [place] [address] PCP - ACO Reach 10/29/24 Azul Quezada NP [address] [place] [address] Referring Physician Nurse Practitioner 04/07/23 Mediation Commissioner Relationship Specialty Start Date End Date Kiko Zurita MD [address] [place] [address] PCP - General Family Medicine 10/24/23 Azul Quezada NP [address] [place] [address] PCP - ACO Reach 10/29/24 Azul Quezada NP [address] [place] [address] Referring Physician Nurse Practitioner 04/07/23 Mediation Commissioner Relationship Specialty Start Date End Date Kiko Zurita MD [address] [place] [address] PCP - General Family Medicine 10/24/23 Azul Quezada NP [address] [place] [address] PCP - ACO Reach 10/29/24 Azul Quezada NP [address] [place] [address] Referring Physician Nurse Practitioner 04/07/23 Mediation Commissioner Relationship Specialty Start Date End Date Kiko Zurita MD [address] [place] [address] PCP - General Family Medicine 10/24/23 Azul Quezada NP [address] [place] [address] PCP - ACO Reach 10/29/24 Azul Quezada NP [address] [place] [address] Referring Physician Nurse Practitioner 04/07/23 Reason [...] BE BASED ON THE PRIMARY CLINICAL RECORDS. [employer] provides no warranty or guarantee of the accuracy or completeness of information in this document.
[2025-07-07 12:44] LABS: Partial Thromboplastin Time 21.4 sec (22.3-36.2)
[2025-07-07] MEDS: HEPARIN SODIUM,PORCINE/D5W 25,000 UNIT/500 ML IV.SOLN 20 UNIT IV (12:46)
[2025-07-07 12:57] LABS: ABG PCO2 47.6 mmHg (35.0-45.0); HCO3 ABG 28.5 mmol/L (22.0-26.0); PO2 ABG 108.0 mmHg (80.0-100.0)
[2025-07-07 12:58] LABS: Allen Test POSITIVE (POSITIVE); BIPAP Pressure 16/8; O2 Mode BIPAP; Oxygen Saturation ABG 98.6 %; Puncture Site RR; Rate 12
== END 2025-07-07 13:31 | disposition short-term general hospital (02) ==
PROVIDERS: Emergency Provider Emergency Medicine; PCP Nurse Practitioner
DX: I63.10 Cerebral infarction due to embolism of unspecified precerebral artery (principal); G81.94 Hemiplegia, unspecified affecting left nondominant side; Z87.891 Personal history of nicotine dependence; J44.9 Chronic obstructive pulmonary disease, unspecified; Z86.73 Personal history of transient ischemic attack (TIA), and cerebral infarction without residual deficits; J45.901 Unspecified asthma with (acute) exacerbation; J96.90 Respiratory failure, unspecified, unspecified whether with hypoxia or hypercapnia
CPT/HCPCS: 36415; 36600; 70450; 70496; 70498; 71045; 80053; 82805; 83735; 84484; 85025; 85610; 85730; 87420; 87804; 87811; 93005; 94640; 94660; 96365; 96367; 96375; 99291; 99292; J1644; J1885; J2919; J3475; Q9967

== ENCOUNTER 2025-07-23 07:03 | Emergency (ER) | payer MEDICARE, SELFPAY ==
--- OUTSIDE RECORDS SUMMARY | 2024-04-22 06:00 | XMS_ITS ---
Author Organization [facility] in [place] Address [address] [place] [address] Care Team Providers Care Tar Heater Operator Name Role Phone Azul Quezada CNP Primary Care Provider Unavail Valeriy Rae Unavailable [phone] REASON FOR VISIT 1 YEAR-COPD Encounters Encounter Location Date Provider Diagnosis Pulmonary Medicine [place] [address] [place] [address] 04/22/2024 Valeriy Boo Plan Of Treatment No Information Progress Notes * NIA Sam KDOB:[birth year] (65 yo M)Acc No.[id number]:04/22/2024 UNLOCKED PROGRESS NOTE Follow Up Patient: Sam SPEAR :?ERMIAS MalloryOB:1960???Age:63 Y ???Sex:MaleDate:4Phone:[phone]:[address] [id number]:Azul Quezada CNP Subjective: * Chief Complaints: * 1 . 1 YEAR-COPD. * Medical History: Objective: * Vitals: Assessment: Plan: * Treatment: * * Electronic signature of Valeriy Boo DO on 07/23/2025 at 08:24 AM EDTSign off status: PendingVisit Status:?CANC (Cancelled) * Provider: Ale Boo DO Date: 0 04/22/2024 Generated for Printing/Faxing/eTransmitting on:?07/23/2025 08:24 AM EDT
--- OUTSIDE RECORDS SUMMARY | 2024-07-28 09:30 | XMS_ITS ---
Author Organization [facility] in [place] Address [address] [place] [address] Care Team Providers Care Dealer Relationship Manager Name Role Phone Azul Quezada CNP Primary Care Provider Unavail Valeriy Rae Unavailable [phone] REASON FOR VISIT 6MO-COPD Encounters Encounter Location Date Provider Diagnosis Pulmonary Medicine [place] [address] [place] [address] 07/28/2024 Valeriy Boo Plan Of Treatment No Information Progress Notes * NIA Sam KDOB:[birth year] (65 yo M)Acc No.[id number]:07/28/2024 UNLOCKED PROGRESS NOTE Follow Up Patient: Sam SPEAR :?ERMIAS MalloryOB:1960???Age:64 Y ???Sex:MaleDate:4Phone:[phone]:[address] [id number]:Azul Quezada CNP Subjective: * Chief Complaints: * 1 . 6MO-COPD. * Medical History: Objective: * Vitals: Assessment: Plan: * Treatment: * * Electronic signature of Valeriy Boo DO on 07/23/2025 at 08:24 AM EDTSign off status: PendingVisit Status:?R/S (Rescheduled) * Provider: Ale Boo DO Date: 09/27/2023 Generated for Printing/Faxing/eTransmitting on:?07/23/2025 08:24 AM EDT
--- OUTSIDE RECORDS SUMMARY | 2025-03-10 09:00 | XMS_ITS ---
Author Organization The [facility] in [place] Address [address] [place] [address] Care Team Providers Care Brakes Inspector Name Role Phone Azul Quezada CNP Primary Care Provider Unavail Valeriy Rae Unavailable [phone] REASON FOR VISIT 3m F/U - COPD Encounters Encounter Location Date Provider Diagnosis Pulmonary Medicine [place] [address] [place] [address] 03/10/2025 Valeriy Boo Plan Of Treatment No Information Progress Notes * NIA Sam KDOB:[birth year] (65 yo M)Acc No.[id number]:03/10/2025 UNLOCKED PROGRESS NOTE Follow Up Patient: Sam SPEAR :?ERMIAS MalloryOB:1960???Age:64 Y ???Sex:MaleDate:03/10/2025Phone:[phone]:[id number] [id number]:Azul Quezada CNP Subjective: * Chief Complaints: * 1 . 3m F/U - COPD. * Medical History: Objective: * Vitals: Assessment: Plan: * Treatment: * * Electronic signature of Valeriy Boo DO on 07/23/2025 at 08:24 AM EDTSign off status: PendingVisit Status:?R/S By O/P (Rescheduled by Office/Provider) * Provider: Ale Boo, DO Date: 0 03/10/2025 Generated for Printing/Faxing/eTransmitting on:?07/23/2025 08:24 AM EDT
--- OUTSIDE RECORDS SUMMARY | 2025-07-07 12:52 | XMS_ITS | Encounter Summary ---
Author Organization [facility] tem Address [id number] [address] 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 Name Role Phone Azul Quezada APRN-OCCUPATIONAL THERAPY PROGRAM DIRECTOR Primary Care Provider Reason for Referral * Misc (Routine) - AuthorizedSpecialtyDiagnoses / ProceduresReferred By Contact Referred To Contact Procedures Discharge Follow-Up Riley Billingsley MD [address] [place] [address] [address] [place] [address] Phone: tel: fax: Referral IDStatusReasonStart DateExpiration DateVisits RequestedVisits [id number]/21/202510/21/202611 * Misc (Routine) - AuthorizedSpecialtyDiagnoses / ProceduresReferred By Contact Referred To Contact Diagnoses Internal carotid artery stenosis, right Procedures Follow-up with primary care provider Riley Billingsley MD [address] [place] [address] [address] [place] [address] Phone: tel: fax: Referral IDStatusReasonStart DateExpiration DateVisits RequestedVisits [id number]/21/202510/21/202611 Reason for Visit * Auth/CertSpecialtyDiagnoses / ProceduresReferred By ContactReferred To Contact Diagnoses Stroke ([facility]) [address] [phone] Referral IDStatusReasonStart DateExpiration DateVisits RequestedVisits [id number] Encounter Details DateTypeDepartmentCare Team (Latest Contact Info)Xlnwqlefcwm59/16/2025 12:52 PM EDT - 07/12/2025 4:58 PM EDTHospital Encounter [facility] [address] [place] [id number] [place] [address] [place] [address], [facility] [address] [place] [address] Lex Carter MD [address] [place] [address] [address] [place] [address] Internal carotid artery stenosis, right (Primary Dx) Discharge Disposition: [facility]pc Facility-Medicare Cert Social History Tobacco UseTypesPacks/DayYears UsedDateSmoking Tobacco: Every DayCigarettes Smokeless Tobacco: Never Comments:quit 4 days ago as of 12/21/20 Alcohol UseStandard Drinks/WeekCommentsNot Currently0 (1 standard drink = 0.6 oz pure alcohol)Social Connection and Isolation PanelAnswerDate RecordedIn a typical week, how many times do you talk on the phone with family, friends, or neighbors?Twice a week06/10/2020How often do you get together with friends or relatives?Once a week06/10/2020How often do you attend jew or orthodox services?Never06/10/2020Do you belong to any clubs or organizations such as jew groups, unions, fraternal or athletic groups, or school groups?No 06/10/2020How often do you attend meetings of the clubs or organizations you belong to?Never06/10/2020Are you , , , , never , or living with a partner?Living with ynzrqff0506/10/2020PHQ-2AnswerDate RecordedTotal Mfdrn132/17/2025[facility] [place] [facility] - Occupational Stress QuestionnaireAnswerDate RecordedDo you feel stress - tense, restless, nervous, or anxious, or unable to sleep at night because yourmind is troubled all the time - these days?Not at all06/10/2020Exercise Vital SignAnswer Date RecordedOn average, how many days per week do you engage in moderate to strenuous exercise (like a brisk walk)?7 days06/10/2020On average, how many minutes do you engage in exercise at this level?60 min06/10/2020AUDIT-CAnswer Date RecordedQ1: How often do you have a drink containing alcohol?Never 07/08/2025Q2: How many drinks containing alcohol do you have on a typical day when you are drinking?Patient does not drink07/08/2025Q3: How often do you have six or more drinks on one occasion?Never07/08/2025Overall Financial Resource Strain (CARDIA)AnswerDate RecordedHow hard is it for you to pay for the very basics like food, housing, medical care, and heating?Not hard at all07/08/2025 PRAPARE - TransportationAnswerDate RecordedIn the past 12 months, has lack of transportation kept you from medical appointments or from getting medications?No 07/08/2025In the past 12 months, has lack of transportation kept you from meetings, work, or from getting things needed for daily living?No07/08/2025HC UtilitiesAnswerDate RecordedIn the past 12 months has the [place], gas, oil, or water company threatened to shut off services in your home?No07/08/2025Housing InstabilityAnswerDate RecordedAre you worried or concerned that in the next two months you may not have stable housing that you own, rent or stay in as a part of a household?No07/08/2025hildcareAnswerDate RecordedChildcareUnknown 03/03/2019EmploymentAnswerDate DrmjrsaxSurglhcnmgOgbjwnc54/12/2019Hunger ScreeningAnswerDate RecordedWithin the past 12 months we worried whether our food would run out before we got money to buy more.Never True07/08/2025Within the past 12 months the food we bought just didn't last and we didn't have money to get more.Never True07/08/2025Purpose - LifeAnswerDate RecordedPurpose and direction in emenYknkqmf95/26/2021ex and Gender InformationValueDate Recorded Sex Assigned at BirthNot on fileLegal JrcYvuw2004/27/2015 11:32 AM EDTGender IdentityNot on fileSexual OrientationNot on filedocumented as of this encounter Last Filed Vital Signs Vital SignReadingTime TakenCommentsBlood Vrtkxrwb580/8307/12/2025 2:48 PM EDT Zsjnv0369/21/2025 3:43 PM KNIVmocmqvnjku57.9 ??C (98.4 ??F)07/12/2025 11:45 AM EDTRespiratory Vbdm222207/12/2025 3:43 PM EDTOxygen Rmrmangeki55%07/12/2025 3:43 PM EDTInhaled Oxygen Concentration--[place]40 kg (202 lb 13.2 oz)07/12/2025 4:41 AM SKQIxkvxf621.4 cm (6' 1 )07/08/2025 1:01 PM EDTBody Mass Index26.7607/08/2025 1:01 PM EDTdocumented in this encounter Functional Status * QuestionAnswerDate of AssessmentAuthorFunctional MgzwdjVrnfbjfubmm41/20/2025 11:16 AM Jaki Bear RN * AUDIT-C ScoreAnswerDate of AfqupijyepFjgzcl069/17/2025 12:36 PM Jessie Hall RN * QuestionAnswerDate of AssessmentAuthorQ1: How often do you have a drink containing alcohol?Never07/08/2025 12:36 PM Jessie Hall RNQ2: How many drinks containing alcohol do you have on a typical day when you are drinking? Patient does not drink07/08/2025 12:36 PM Jessie Hall RNQ3: How often do you have six or more drinks on one occasion?Never07/08/2025 12:36 PM EDT Jessie Mc RN documented as of this encounter Mental Status * QuestionAnswerEntry DateAuthorOverall Cognitive ZoioysQNC83/20/2025 3:26 PM EDTGyehuda-Marlyn Hercules OTA/Chloe * QuestionAnswerEntry DateAuthorOverall Cognitive NnlgafI65/16/2025 3:13 PM EDT Sher Umanzor, OLIVIA-WILDLIFE TECHNICIAN documented in this encounter Discharge Summaries * Riley Billingsley MD - 07/12/2025 12:50 PM EDT Inpatient Discharge Summary BRIEF OVERVIEW Admitting Provider: Lex Carter MD Discharge Provider: Checo Aguilera MD Primary Care Physician at Discharge: 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, [facility] [phone] Admission Date: 07/07/2025 Discharge Date: No discharge date for patient encounter. Primary Discharge Diagnosis Proximal R ICA in-stent stenosis s/p re-stenting on 07/09 Secondary Discharge Diagnosis COPD Discharge Disposition Home Code Status at Discharge: Full Active Issues Requiring Follow-up Issue: Stroke Responsible Individual: Vascular neurologist What is Needed: Follow up and management Follow-up Appointments Arranged: Yes Issue: Hospital admission and general health Responsible Individual: Primary care provider What is Needed: Follow up and management Follow-up Appointments Arranged: Yes Outpatient Follow-Up Future Appointments Date Time Provider Department Center 08/25/2025 1:30 PM Andrew Terrell MD [facility] NEURO NSC Test Results Pending at Discharge DETAILS OF HOSPITAL STAY Presenting Problem/History of Present Illness [place] [I63.9] CVA (cerebral vascular accident) ([facility]) [I63.9] Stroke (cerebrum) ([facility]) [I63.9] Hospital Course Sam Carrasco is a 65 y.o. male who presents with left-sided deficits and right gaze preference.Patient initially to [facility] after he had an episode of shortness of breath and inabilityto get up. He called his sister who called EMS and brought him to the ED outside hospital ED. On initial evaluation, patient had left hemiparesis and right gaze preference. Initial CT head was unremarkable. Vessel imaging showed right ICA In-stent stenosis and possible basilar stenosis. [facility]. CTP showed asymmetric decreased perfusion in the right greater than left temporal lobe regions. Patient has a history of right ICA stenosis s/p stent placement in May 2020 on aspirin 81 mg and Lipitor 40 mg. He was loaded with Brilinta 180 mg and resumed on his aspirin 81 mg. During the course of hospital admission the patient underwent complete stroke workup and an angiography was performed on 07/09/2025. It showed chronic appearing right vertebral artery occlusion, ulcerated/moderate to severely stenotic/hi right internal carotid artery stenosis and a stent placement.The patient was continued on dual antiplatelet regimen including aspirin and Brilinta while they were admitted in the hospital and was advised to continue taking the medications for at least 6 monthsor change based on the advice of the outpatient vascular neurologist. PT/OT evaluated the patient and recommended discharging to a snf facility. At the time of discharge, the patient was clinically and hemodynamically stable and thankful for the entire carereceived in the hospital. Stroke workup: CTH (OSH): Negative CTA (OSH): R ICA in stent stenosis vs thrombosis MRI: R frontal and parietal cortical ischemia HbA1c: 5.7 LDL:51 Echo: LA mildly dilated, no evidence of R-L shunting. mRS on discharge: 5 Operative Procedures Performed Procedure(s): Diagnostic cerebral angiogram Stent carotid with embolic protection right Treatments: DSA, DAPT Consults: None Procedures: DSA Pertinent Test Results: R ICA in-stent stenosis Physical Exam at Discharge Discharge Condition: good Pulse: 98 Resp: 18 BP: 132/83 Temp: 36.9 ??C (98.4 ??F) Weight: 92 kg (202 lb 13.2 oz) NIH Stroke Scale 1a Level of consciousness: 0=alert; keenly responsive 1b. LOC questions: 0=Performs both tasks correctly 1c. LOC commands: 0=Performs both tasks correctly 2. Best Gaze: 1=partial gaze palsy 3. Visual: 1=Partial hemianopia 4. Facial Palsy: 1=Minor paralysis (flattened nasolabial fold, asymmetric on smiling) 5a. Motor left arm: 3=No effort against gravity, limb falls 5b. Motor right arm: 0=No drift, limb holds 90 (or 45) degrees for full 10 seconds 6a. motor left le=Drift, limb holds 90 (or 45) degrees but drifts down before full 10 seconds: does not hit bed 6b Motor right le=No drift, limb holds 90 (or 45) degrees for full 10 seconds 7. Limb Ataxia: 0=Absent 8. Sensory: 2=Severe to total sensory loss; patient is not aware of being touched in face, arm, leg 9. Best Language: 0=No aphasia, normal 10. Dysarthria: 1=Mild to moderate, patient slurs at least some words and at worst, can be understood with some difficulty 11. Extinction and Inattention: 1=Visual, tactile, auditory, spatial or personal inattention or extinction to bilateral simultaneous stimulation in one of the sensory modalities Total: 11 Your medication list START taking these medications Instructions Last Dose Given Next Dose Due rosuvastatin 10 mg tablet Commonly known as: CRESTOR Take 1 tablet (10 mg total) by mouth nightly. ticagrelor 90 mg tablet Commonly known as: BRILINTA Take 1 tablet (90 mg total) by mouth every 12 (twelve) hours. CONTINUE taking these medications Instructions Last Dose Given Next Dose Due albuterol 0.63 mg/3 mL nebulizer solution Commonly known as: ACCUNEB albuterol 90 mcg/actuation inhaler Commonly known as: PROVENTIL HFA;VENTOLIN HFA aspirin 81 mg chewable tablet Chew 1 tablet (81 mg total) and swallow daily. FLUoxetine 10 mg capsule Commonly known as: PROzac tiotropium 18 mcg per inhalation capsule Commonly known as: SPIRIVA traZODone 75 mg tablet Commonly known as: DESYREL Where to Get Your Medications These medications were sent to [id number] - [place], [place] - [address] [facility] [address] [place] [address] rosuvastatin 10 mg tablet ticagrelor 90 mg tablet Staffed with: Dr. Verdugo Cosigned by Flaco Verdugo MD at 07/13/2025 11:57 AM EDT Associated attestation - Flaco Verdugo MD - 07/13/2025 11:57 AM EDT Patient seen and examined with resident. I agree with the main component with the resident note including the HPI, ROS, Physical exam and assessment and plan. documented in this encounter Discharge Instructions * Discharge Instructions* Riley Billingsley MD - 07/11/2025 4:14 PM EDT The best way to ensure good health maintenance and avoid rehospitalization is to ensure strict medication compliance and close outpatient follow up. Please ensure you take all medications as prescribed. This includes your home medication regimen, plus the following adjustments: Start taking Brilinta 90mg twice daily Please ensure appropriate follow up, including being seen by your primary care provider (PCP) within two weeks of discharge for a post-hospitalization follow up. The purpose of this visit is to ensure you are recovering appropriately from your recent hospitalization, and for a medication review. If you develop new or concerning symptoms, including fever, chills, shortness of breath, chest pain, or palpitations, please present to the nearest emergency department. * Attachments The following attachments cannot be sent through Care Everywhere. * Stroke ??? Discharge instructions (Sami) documented in this encounter Medications at Time of Discharge MedicationSigDispense QuantityRefillsLast FilledStart DateEnd Date albuterol (ACCUNEB) 0.63 mg/3 mL nebulizer solution Inhale 3 mL (0.63 mg total) by nebulization every 6 (six) hours as needed for wheezing. albuterol (PROVENTIL HFA;VENTOLIN HFA) 90 mcg/actuation inhaler Inhale 2 puffs every 6 (six) hours as needed for wheezing. aspirin 81 mg chewable tablet Chew 1 tablet (81 mg total) and swallow daily. 30 tablet FLUoxetine (PROzac) 10 mg capsule Take 1 capsule (10 mg total) by mouth in the morning. rosuvastatin (CRESTOR) 10 mg tablet Take 1 tablet (10 mg total) by mouth nightly. 90 tablet ticagrelor (BRILINTA) 90 mg tablet Take 1 tablet (90 mg total) by mouth every 12 (twelve) hours. 180 tablet tiotropium (SPIRIVA) 18 mcg per inhalation capsule Place 1 capsule into inhaler and inhale once daily. traZODone (DESYREL) 75 mg tablet Take 50 mg by mouth nightly.documented as of this encounter Progress Notes * Joana Dejesus RN - 07/12/2025 11:50 AM EDT Images from the original note were not included. FOLLOW-UP: Post-Intensive Care Rounding Note Patient: Sam Carrasco : 1960 Age: 65 y.o. Length of Stay: 4 days Admission Diagnosis: Stroke ([facility]) [I63.9] CVA (cerebral vascular accident) ([facility]) [I63.9] Stroke (cerebrum) [place] [I63.9] Reviewing patient due to his recent transfer out from Intensive Care. Recorded vital signs are stable and the patient is not noted to be in any apparent distress. Telemetry and monitoring noted. Staff may call with any issues or concerns regarding his clinical presentation or stability. Thank you, Joana Dejesus RN Rapid Response: [facility] 3 * Riley Billingsley MD - 07/12/2025 9:14 AM EDT Stroke / Neurointerventional Ischemic stroke progress note: Date of admission :07/07/2025 12:52 PM Chief complaint: Left-sided deficits and right gaze preference, shortness of breath Last known well: Unclear Premorbid mRS: 1 Initial NIHSS: 13 First CTH: Negative First CTA: Possible right ICA In-stent stenosis and possible basilar stenosis TPA/TNK given?: No Intervention?: No Subjective/Interval: Patient was seen and examined at bedside this morning. Vitals stable, no acute events reported overnight. Currently on aspirin and Brilinta. Cost analysis of Brilinta was done and the patient is okaywith the reported cost and will remain compliant. Pending inpatient rehab placement. History of presenting illness: Sam Carrasco is a 65 y.o. male who presents with left-sided deficits and right gaze preference. Patient initially to [facility] after he had an episode of shortness of breath and inability to get up. He called his sister who called EMS and brought him to the ED outside hospital ED. On initial evaluation, patient had left hemiparesis and right gaze preference. Initial CT head was unremarkable. Vessel imaging showed right ICA In-stent stenosis and possible basilar stenosis. Patient was transferred to [facility] for CTP. CTP showed asymmetric decreased perfusion in the right greater than left temporal lobe regions. Patient has a history of right ICA stenosis s/p stent placement in May 2020 on aspirin 81 mg and Lipitor 40 mg. He was loaded with Brilinta 180 mg and resumed on his aspirin 81 mg. Home medications: Medications Prior to Admission Medication Sig Dispense Refill Last Dose/Taking aspirin 81 mg chewable tablet Chew 1 tablet (81 mg total) and swallow daily. 30 tablet 5 07/05/2025Morning atorvastatin (LIPITOR) 40 mg tablet Take 1 tablet (40 mg total) by mouth nightly. 30 tablet 2 07/06/2025 Evening albuterol (ACCUNEB) 0.63 mg/3 mL nebulizer solution Inhale 3 mL (0.63 mg total) by nebulization every 6 (six) hours as needed for wheezing. 07/06/2025 albuterol (PROVENTIL HFA;VENTOLIN HFA) 90 mcg/actuation inhaler Inhale 2 puffs every 6 (six) hours as needed for wheezing. 07/06/2025 FLUoxetine (PROzac) 10 mg capsule Take 1 capsule (10 mg total) by mouth in the morning. 07/05/2025 Evening tiotropium (SPIRIVA) 18 mcg per inhalation capsule Place 1 capsule into inhaler and inhale once daily. traZODone (DESYREL) 75 mg tablet Take 50 mg by mouth nightly. 07/05/2025 Evening Past medical history: Past Medical History: Diagnosis Date COPD (chronic obstructive pulmonary disease) ([facility]) CVA (cerebral vascular accident) [place] 06/10/2020 Emphysema of lung [place] St[place] 07/07/2025 Past surgical history: Past Surgical History: Procedure Laterality Date Diagnostic cerebral angiogram with JAYANT stent placement with embolic protection device N/A 06/12/2020 Performed by Andrew Terrell MD at [facility] CARDIAC CATH LABS THROAT SURGERY TONSILLECTOMY Family history: Hefamily history includes COPD in his mother; Heart disease in his father and mother; Peripheral vascular disease in his mother. Allergies: Heis allergic to bee sting [bee venom protein (honey bee)]. Social history: Social History Socioeconomic History Marital status: Significant Other Spouse name: Not on file Number of children: Not on file Years of education: Not on file Highest education level: Not on file Occupational History Not on file Tobacco Use Smoking status: Every Day Current packs/day: 0.50 Types: Cigarettes Smokeless tobacco: Never Tobacco comments: quit 4 days ago as of 12/21/20 Substance and Sexual Activity Alcohol use: Not Currently Drug use: Yes Types: Marijuana Comment: WHEN I CAN Sexual activity: Defer Other Topics Concern Not on file Social History Narrative Not on file Social Drivers of Health Financial Resource Strain: Low Risk (07/08/2025) Overall Financial Resource Strain (CARDIA) Difficulty of Paying Living Expenses: Not hard at all Food Insecurity: No Food Insecurity (07/08/2025) Hunger Screening Food Insecurity - Worry: Never True Food Insecurity - Inability: Never True Transportation Needs: No Transportation Needs (07/08/2025) PRAPARE - Transportation Lack of Transportation (Medical): No Lack of Transportation (Non-Medical): No Physical Activity: Insufficiently Active (11/13/2023) Received from [facility] Exercise Vital Sign On average, how many days per week do you engage in moderate to strenuous exercise (like a brisk walk)?: 2 days On average, how many minutes do you engage in exercise at this level?: 20 min Stress: No Stress Concern Present (11/13/2023) Received from [facility] [place] [facility] - Occupational Stress Questionnaire Feeling of Stress : Only a little Social Connections: Moderately Integrated (11/13/2023) Received from [facility] Social Connection and Isolation Panel In a typical week, how many times do you talk on the phone with family, friends, or neighbors?: More than three times a week How often do you get together with friends or relatives?: More than three times a week How often do you attend jew or orthodox services?: Never Do you belong to any clubs or organizations such as jew groups, unions, fraternal or athletic groups, or school groups?: Yes How often do you attend meetings of the clubs or organizations you belong to?: More than 4 times per year Are you , , , , never , or living with a partner?: Interpersonal Safety: Not At Risk (07/08/2025) Humiliation, Afraid, Rape, and Kick questionnaire Fear of Current or Ex-Partner: No Emotionally Abused: No Physically Abused: No Sexually Abused: No Housing Instability: Low Risk (07/08/2025) Housing Instability Housing Instability: No Review of systems Review of Systems Physical exam Physical Exam Neurological Exam NIH Stroke Scale 1a Level of consciousness: 0=alert; keenly responsive 1b. LOC questions: 0=Performs both tasks correctly 1c. LOC commands: 0=Performs both tasks correctly 2. Best Gaze: 1=partial gaze palsy 3. Visual: 1=Partial hemianopia 4. Facial Palsy: 1=Minor paralysis (flattened nasolabial fold, asymmetric on smiling) 5a. Motor left arm: 3=No effort against gravity, limb falls 5b. Motor right arm: 0=No drift, limb holds 90 (or 45) degrees for full 10 seconds 6a. motor left le=Drift, limb holds 90 (or 45) degrees but drifts down before full 10 seconds: does not hit bed 6b Motor right le=No drift, limb holds 90 (or 45) degrees for full 10 seconds 7. Limb Ataxia: 0=Absent 8. Sensory: 2=Severe to total sensory loss; patient is not aware of being touched in face, arm, leg 9. Best Language: 0=No aphasia, normal 10. Dysarthria: 1=Mild to moderate, patient slurs at least some words and at worst, can be understood with some difficulty 11. Extinction and Inattention: 1=Visual, tactile, auditory, spatial or personal inattention or extinction to bilateral simultaneous stimulation in one of the sensory modalities Total: 11 Lab Review Lab Results Component Value Date HGBA1C 5.7 (H) 07/07/2025 CALCIUM 8.6 07/12/2025 K 4.0 07/12/2025 CO2 29 07/12/2025 BUN 14 07/12/2025 CREATININE 0.75 07/12/2025 Lab Results Component Value Date WBC 10.0 07/10/2025 HGB 12.6 (L) 07/10/2025 MCV 88 07/10/2025 PLT 283 07/10/2025 Lab Results Component Value Date INR 1.0 06/10/2020 No results found for: LDL , CHOLESTEROLT Imaging CT cerebral perfusion analysis Result Date: 07/07/2025 Narrative: CT CEREBRAL PERF ANALYSIS CLINICAL INFORMATION:Stroke COMPARISON: None. PROCEDURE: CT brain perfusion study performed using IV contrast without complication. Examination was performed withpostprocessing in the 3-D lab under concurrent supervision on an independent workstation. Parametric maps generated included mean transit time, cerebral blood volume and cerebral blood flow. Automated exposure control was utilized. All CT scans at this facility use dose modulation, iterative reconstruction, and/or weight based dosing when appropriate to reduce radiation dose to as low as reasonably achievable. FINDINGS: CBF < 30% Volume: 0 mL. TMax > 6.0 s Volume: 51 mL. Mismatch Volume: 5 1 mL. IMPRESSION: * Asymmetric decreased perfusion noted posterior fossa right greater than left temporal lobe regions. Finalized by Kishore Thomsa MD on 07/07/2025 2:47 PM Assessment: Sam Carrasco is a 65 y.o. male who presents with left hemiparesis and shortness of breath symptoms. Their risk factors include history of right ICA stenosis s/p stent and currently taking Aspirin 81 mg . Initial NIHSS is 13 (1 for right gaze preference, 1 for partial hemianopia, 1 for mild left facial weakness, 6 for LUE and LLE weakness, 2 for sensory deficits in the left side, 1 for dysarthria, [address]). Initial CT head was unremarkable. Vessel imaging showed right ICA In-stent stenosis and possible basilar stenosis. Patient was transferred to [facility] for CTP. CTP showed asymmetric decreased perfusion in the right greater than left temporal lobe regions.mg/dL. Impression: Proximal R ICA in-stent stenosis s/p re-stenting on 07/09 Plan Continue care on the intermediate floor with stroke service. Continue DAPT Aspirin and Brilinta. Plans for 6 months, further management per outpatient vascular neurologist. Cost analysis done for Brilinta, patient okay with the costs. Diet: Regular PT/OT/ST evaluation Dispo: IPD DVT px: Heparin 5000U TID Code: Full Staffed with: Dr. Kartik Billingsley MD PGY-3 Neurology Resident 07/12/25 9:14 AM Cosigned by Flaco Verdugo MD at 07/12/2025 2:17 PM EDT Associated attestation - Flaco Verdugo MD - 07/12/2025 2:17 PM EDT Patient seen and examined with resident. I agree with the main component with the resident note including the HPI, ROS, Physical exam and assessment and plan. * Tiffanie Padilla RN - 07/11/2025 9:06 PM EDT Images from the original note were not included. FOLLOW-UP: Post-Intensive Care Rounding Note Patient: Sam Carrasco : 1960 Age: 65 y.o. Length of Stay: 3 days Admission Diagnosis: Stroke (CMS-HCC) [I63.9] CVA (cerebral vascular accident) (CMS-HCC) [I63.9] Stroke (cerebrum) (CMS-HCC) [I63.9] Reviewing patient due to his recent transfer out from Intensive Care. Recorded vital signs are stable and the patient is not noted to be in any apparent distress. Telemetry and monitoring noted. Staff may call with any issues or concerns regarding his clinical presentation or stability. Thank you, Tiffanie Padilla RN Rapid Response: [facility] * Riley Billingsley MD - 07/11/2025 1:10 PM EDT Stroke / Neurointerventional Ischemic stroke progress note: Date of admission :07/07/2025 12:52 PM Chief complaint: Left-sided deficits and right gaze preference, shortness of breath Last known well: Unclear Premorbid mRS: 1 Initial NIHSS: 13 First CTH: Negative First CTA: Possible right ICA In-stent stenosis and possible basilar stenosis TPA/TNK given?: No Intervention?: No Subjective/Interval: Patient was seen and examined at bedside this morning. Vitals stable, no acute events reported overnight. Stable blood pressure. CMP normal, pending CBC. History of presenting illness: Sam Carrasco is a 65 y.o. male who presents with left-sided deficits and right gaze preference. Patient initially to [facility] after he had an episode of shortness of breath and inability to get up. He called his sister who called EMS and brought him to the ED outside hospital ED. On initial evaluation, patient had left hemiparesis and right gaze preference. Initial CT head was unremarkable. Vessel imaging showed right ICA In-stent stenosis and possible basilar stenosis. Patient was transferred to [facility] for CTP. CTP showed asymmetric decreased perfusion in the right greater than left temporal lobe regions. Patient has a history of right ICA stenosis s/p stent placement in May 2020 on aspirin 81 mg and Lipitor 40 mg. He was loaded with Brilinta 180 mg and resumed on his aspirin 81 mg. Home medications: Medications Prior to Admission Medication Sig Dispense Refill Last Dose/Taking aspirin 81 mg chewable tablet Chew 1 tablet (81 mg total) and swallow daily. 30 tablet 5 07/05/2025Morning atorvastatin (LIPITOR) 40 mg tablet Take 1 tablet (40 mg total) by mouth nightly. 30 tablet 2 07/06/2025 Evening albuterol (ACCUNEB) 0.63 mg/3 mL nebulizer solution Inhale 3 mL (0.63 mg total) by nebulization every 6 (six) hours as needed for wheezing. 07/06/2025 albuterol (PROVENTIL HFA;VENTOLIN HFA) 90 mcg/actuation inhaler Inhale 2 puffs every 6 (six) hours as needed for wheezing. 07/06/2025 FLUoxetine (PROzac) 10 mg capsule Take 1 capsule (10 mg total) by mouth in the morning. 07/05/2025 Evening tiotropium (SPIRIVA) 18 mcg per inhalation capsule Place 1 capsule into inhaler and inhale once daily. traZODone (DESYREL) 75 mg tablet Take 50 mg by mouth nightly. 07/05/2025 Evening Past medical history: Past Medical History: Diagnosis Date [place] [place] 07/07/2025 Past surgical history: Past Surgical History: Procedure Laterality Date Diagnostic cerebral angiogram with JAYANT stent placement with embolic protection device N/A 06/12/2020 Performed by Andrew Terrell MD at [facility] CARDIAC CATH LABS THROAT SURGERY TONSILLECTOMY Family history: Hefamily history includes COPD in his mother; Heart disease in his father and mother; Peripheral vascular disease in his mother. Allergies: Heis allergic to bee sting [bee venom protein (honey bee)]. Social history: Social History Socioeconomic History Marital status: Significant Other Spouse name: Not on file Number of children: Not on file Years of education: Not on file Highest education level: Not on file Occupational History Not on file Tobacco Use Smoking status: Every Day Current packs/day: 0.50 Types: Cigarettes Smokeless tobacco: Never Tobacco comments: quit 4 days ago as of 12/21/20 Substance and Sexual Activity Alcohol use: Not Currently Drug use: Yes Types: Marijuana Comment: WHEN I CAN Sexual activity: Defer Other Topics Concern Not on file Social History Narrative Not on file Social Drivers of Health Financial Resource Strain: Low Risk (07/08/2025) Overall Financial Resource Strain (CARDIA) Difficulty of Paying Living Expenses: Not hard at all Food Insecurity: No Food Insecurity (07/08/2025) Hunger Screening Food Insecurity - Worry: Never True Food Insecurity - Inability: Never True Transportation Needs: No Transportation Needs (07/08/2025) PRAPARE - Transportation Lack of Transportation (Medical): No Lack of Transportation (Non-Medical): No Physical Activity: Insufficiently Active (11/13/2023) Received from [facility] Exercise Vital Sign On average, how many days per week do you engage in moderate to strenuous exercise (like a brisk walk)?: 2 days On average, how many minutes do you engage in exercise at this level?: 20 min Stress: No Stress Concern Present (11/13/2023) Received from [facility] [employer] [employer] - Occupational Stress Questionnaire Feeling of Stress : Only a little Social Connections: Moderately Integrated (11/13/2023) Received from [facility] Social Connection and Isolation Panel In a typical week, how many times do you talk on the phone with family, friends, or neighbors?: More than three times a week How often do you get together with friends or relatives?: More than three times a week How often do you attend jew or orthodox services?: Never Do you belong to any clubs or organizations such as jew groups, unions, fraternal or athletic groups, or school groups?: Yes How often do you attend meetings of the clubs or organizations you belong to?: More than 4 times per year Are you , , , , never , or living with a partner?: Interpersonal Safety: Not At Risk (07/08/2025) Humiliation, Afraid, Rape, and Kick questionnaire Fear of Current or Ex-Partner: No Emotionally Abused: No Physically Abused: No Sexually Abused: No Housing Instability: Low Risk (07/08/2025) Housing Instability Housing Instability: No Review of systems Review of Systems Physical exam Physical Exam Neurological Exam NIH Stroke Scale 1a Level of consciousness: 0=alert; keenly responsive 1b. LOC questions: 0=Performs both tasks correctly 1c. LOC commands: 0=Performs both tasks correctly 2. Best Gaze: 1=partial gaze palsy 3. Visual: 1=Partial hemianopia 4. Facial Palsy: 1=Minor paralysis (flattened nasolabial fold, asymmetric on smiling) 5a. Motor left arm: 3=No effort against gravity, limb falls 5b. Motor right arm: 0=No drift, limb holds 90 (or 45) degrees for full 10 seconds 6a. motor left le=Drift, limb holds 90 (or 45) degrees but drifts down before full 10 seconds: does not hit bed 6b Motor right le=No drift, limb holds 90 (or 45) degrees for full 10 seconds 7. Limb Ataxia: 0=Absent 8. Sensory: 2=Severe to total sensory loss; patient is not aware of being touched in face, arm, leg 9. Best Language: 0=No aphasia, normal 10. Dysarthria: 1=Mild to moderate, patient slurs at least some words and at worst, can be understood with some difficulty 11. Extinction and Inattention: 1=Visual, tactile, auditory, spatial or personal inattention or extinction to bilateral simultaneous stimulation in one of the sensory modalities Total: 11 Lab Review Lab Results Component Value Date HGBA1C 5.7 (H) 07/07/2025 CALCIUM 8.6 07/11/2025 K 4.2 07/11/2025 CO2 31 07/11/2025 BUN 13 07/11/2025 CREATININE 0.79 07/11/2025 Lab Results Component Value Date WBC 10.0 07/10/2025 HGB 12.6 (L) 07/10/2025 MCV 88 07/10/2025 PLT 283 07/10/2025 Lab Results Component Value Date INR 1.0 06/10/2020 No results found for: LDL , CHOLESTEROLT Imaging CT cerebral perfusion analysis Result Date: 07/07/2025 Narrative: CT CEREBRAL PERF ANALYSIS CLINICAL INFORMATION:Stroke COMPARISON: None. PROCEDURE: CT brain perfusion study performed using IV contrast without complication. Examination was performed withpostprocessing in the 3-D lab under concurrent supervision on an independent workstation. Parametric maps generated included mean transit time, cerebral blood volume and cerebral blood flow. Automated exposure control was utilized. All CT scans at this facility use dose modulation, iterative reconstruction, and/or weight based dosing when appropriate to reduce radiation dose to as low as reasonably achievable. FINDINGS: CBF < 30% Volume: 0 mL. TMax > 6.0 s Volume: 51 mL. Mismatch Volume: 5 1 mL. IMPRESSION: * Asymmetric decreased perfusion noted posterior fossa right greater than left temporal lobe regions. Finalized by Kishore Thomas MD on 07/07/2025 2:47 PM Assessment: Sam Carrasco is a 65 y.o. male who presents with left hemiparesis and shortness of breath symptoms. Their risk factors include history of right ICA stenosis s/p stent and currently taking Aspirin 81 mg . Initial NIHSS is 13 (1 for right gaze preference, 1 for partial hemianopia, 1 for mild left facial weakness, 6 for LUE and LLE weakness, 2 for sensory deficits in the left side, 1 for dysarthria, [address]). Initial CT head was unremarkable. Vessel imaging showed right ICA In-stent stenosis and possible basilar stenosis. Patient was transferred to [facility] for CTP. CTP showed asymmetric decreased perfusion in the right greater than left temporal lobe regions.mg/dL. Impression: Proximal R ICA in-stent stenosis s/p re-stenting on 07/09 Plan Continue care on the intermediate floor with stroke service. Continue DAPT Aspirin and Brilinta. Plans for 6 months, further management per outpatient vascular neurologist. Diet: Regular PT/OT/ST evaluation Dispo: IPD DVT px: Heparin 5000U TID Code: Full Staffed with: Dr. Kartik Billingsley MD PGY-3 Neurology Resident 07/11/25 1:10 PM Cosigned by Flaco Verdugo MD at 07/12/2025 2:17 PM EDT Associated attestation - Flaco Verdugo MD - 07/12/2025 2:17 PM EDT Patient seen and examined with resident. I agree with the main component with the resident note including the HPI, ROS, Physical exam and assessment and plan. With the following changes: Continue dual AP's. Discharge planning. * Ashwini Jim RN - 07/11/2025 12:00 PM EDT Images from the original note were not included. FOLLOW-UP: Post-Intensive Care Rounding Note Patient: Sam Carrasco : 1960 Age: 65 y.o. Length of Stay: 3 days Admission Diagnosis: Stroke ([facility]) [I63.9] CVA (cerebral vascular accident) ([facility]) [I63.9] Stroke (cerebrum) ([facility]) [I63.9] Reviewing patient due to his recent transfer out from Intensive Care. Recorded vital signs are stable and the patient is not noted to be in any apparent distress. Telemetry and monitoring noted. Staff may call with any issues or concerns regarding his clinical presentation or stability. Thank you, ASHWINI IJM RN Rapid Response: [facility] * Riley Billingsley MD - 07/10/2025 9:20 AM EDT Stroke / Neurointerventional Ischemic stroke progress note: Date of admission :07/07/2025 12:52 PM Chief complaint: Left-sided deficits and right gaze preference, shortness of breath Last known well: Unclear Premorbid mRS: 1 Initial NIHSS: 13 First CTH: Negative First CTA: Possible right ICA In-stent stenosis and possible basilar stenosis TPA/TNK given?: No Intervention?: No Subjective/Interval: Patient was seen and examined at bedside this morning. CBC and CMP stable. Had some overnight nausea and vomiting which improved now, no change on neurologic exam overnight or this morning. DSA was performed yesterday with R ICA angioplasty and re-stenting for high-grade in-stent restenosis for proximal R ICA. History of presenting illness: Sam Carrasco is a 65 y.o. male who presents with left-sided deficits and right gaze preference. Patient initially to [facility] after he had an episode of shortness of breath and inability to get up. He called his sister who called EMS and brought him to the ED outside hospital ED. On initial evaluation, patient had left hemiparesis and right gaze preference. Initial CT head was unremarkable. Vessel imaging showed right ICA In-stent stenosis and possible basilar stenosis. Patient was transferred to [facility] for CTP. CTP showed asymmetric decreased perfusion in the right greater than left temporal lobe regions. Patient has a history of right ICA stenosis s/p stent placement in May 2020 on aspirin 81 mg and Lipitor 40 mg. He was loaded with Brilinta 180 mg and resumed on his aspirin 81 mg. Home medications: Medications Prior to Admission Medication Sig Dispense Refill Last Dose/Taking aspirin 81 mg chewable tablet Chew 1 tablet (81 mg total) and swallow daily. 30 tablet 5 07/05/2025Morning atorvastatin (LIPITOR) 40 mg tablet Take 1 tablet (40 mg total) by mouth nightly. 30 tablet 2 07/06/2025 Evening albuterol (ACCUNEB) 0.63 mg/3 mL nebulizer solution Inhale 3 mL (0.63 mg total) by nebulization every 6 (six) hours as needed for wheezing. 07/06/2025 albuterol (PROVENTIL HFA;VENTOLIN HFA) 90 mcg/actuation inhaler Inhale 2 puffs every 6 (six) hours as needed for wheezing. 07/06/2025 FLUoxetine (PROzac) 10 mg capsule Take 1 capsule (10 mg total) by mouth in the morning. 07/05/2025 Evening tiotropium (SPIRIVA) 18 mcg per inhalation capsule Place 1 capsule into inhaler and inhale once daily. traZODone (DESYREL) 75 mg tablet Take 50 mg by mouth nightly. 07/05/2025 Evening Past medical history: Past Medical History: Diagnosis Date [place] obstructive [place] [place] [place]physe[place] [place] [place] 07/07/2025 Past surgical history: Past Surgical History: Procedure Laterality Date Diagnostic cerebral angiogram with JAYANT stent placement with embolic protection device N/A 06/12/2020 Performed by Andrew Terrell MD at [facility] CARDIAC CATH LABS THROAT SURGERY TONSILLECTOMY Family history: Hefamily history includes COPD in his mother; Heart disease in his father and mother; Peripheral vascular disease in his mother. Allergies: Heis allergic to bee sting [bee venom protein (honey bee)]. Social history: Social History Socioeconomic History Marital status: Significant Other Spouse name: Not on file Number of children: Not on file Years of education: Not on file Highest education level: Not on file Occupational History Not on file Tobacco Use Smoking status: Every Day Current packs/day: 0.50 Types: Cigarettes Smokeless tobacco: Never Tobacco comments: quit 4 days ago as of 12/21/20 Substance and Sexual Activity Alcohol use: Not Currently Drug use: Yes Types: Marijuana Comment: WHEN I CAN Sexual activity: Defer Other Topics Concern Not on file Social History Narrative Not on file Social Drivers of Health Financial Resource Strain: Low Risk (07/08/2025) Overall Financial Resource Strain (CARDIA) Difficulty of Paying Living Expenses: Not hard at all Food Insecurity: No Food Insecurity (07/08/2025) Hunger Screening Food Insecurity - Worry: Never True Food Insecurity - Inability: Never True Transportation Needs: No Transportation Needs (07/08/2025) PRAPARE - Transportation Lack of Transportation (Medical): No Lack of Transportation (Non-Medical): No Physical Activity: Insufficiently Active (11/13/2023) Received from [facility] Exercise Vital Sign On average, how many days per week do you engage in moderate to strenuous exercise (like a brisk walk)?: 2 days On average, how many minutes do you engage in exercise at this level?: 20 min Stress: No Stress Concern Present (11/13/2023) Received from [facility] [place] [employer] - Occupational Stress Questionnaire Feeling of Stress : Only a little Social Connections: Moderately Integrated (11/13/2023) Received from [facility] Social Connection and Isolation Panel In a typical week, how many times do you talk on the phone with family, friends, or neighbors?: More than three times a week How often do you get together with friends or relatives?: More than three times a week How often do you attend jew or orthodox services?: Never Do you belong to any clubs or organizations such as jew groups, unions, fraternal or athletic groups, or school groups?: Yes How often do you attend meetings of the clubs or organizations you belong to?: More than 4 times per year Are you , , , , never , or living with a partner?: Interpersonal Safety: Not At Risk (07/08/2025) Humiliation, Afraid, Rape, and Kick questionnaire Fear of Current or Ex-Partner: No Emotionally Abused: No Physically Abused: No Sexually Abused: No Housing Instability: Low Risk (07/08/2025) Housing Instability Housing Instability: No Review of systems Review of Systems Physical exam Physical Exam Neurological Exam NIH Stroke Scale 1a Level of consciousness: 0=alert; keenly responsive 1b. LOC questions: 0=Performs both tasks correctly 1c. LOC commands: 0=Performs both tasks correctly 2. Best Gaze: 1=partial gaze palsy 3. Visual: 1=Partial hemianopia 4. Facial Palsy: 1=Minor paralysis (flattened nasolabial fold, asymmetric on smiling) 5a. Motor left arm: 3=No effort against gravity, limb falls 5b. Motor right arm: 0=No drift, limb holds 90 (or 45) degrees for full 10 seconds 6a. motor left le=Drift, limb holds 90 (or 45) degrees but drifts down before full 10 seconds: does not hit bed 6b Motor right le=No drift, limb holds 90 (or 45) degrees for full 10 seconds 7. Limb Ataxia: 0=Absent 8. Sensory: 2=Severe to total sensory loss; patient is not aware of being touched in face, arm, leg 9. Best Language: 0=No aphasia, normal 10. Dysarthria: 1=Mild to moderate, patient slurs at least some words and at worst, can be understood with some difficulty 11. Extinction and Inattention: 1=Visual, tactile, auditory, spatial or personal inattention or extinction to bilateral simultaneous stimulation in one of the sensory modalities Total: 11 Lab Review Lab Results Component Value Date HGBA1C 5.7 (H) 07/07/2025 CALCIUM 8.9 07/10/2025 K 4.3 07/10/2025 CO2 29 07/10/2025 BUN 17 07/10/2025 CREATININE 0.78 07/10/2025 Lab Results Component Value Date WBC 10.0 07/10/2025 HGB 12.6 (L) 07/10/2025 MCV 88 07/10/2025 PLT 283 07/10/2025 Lab Results Component Value Date INR 1.0 06/10/2020 No results found for: LDL , CHOLESTEROLT Imaging CT cerebral perfusion analysis Result Date: 07/07/2025 Narrative: CT CEREBRAL PERF ANALYSIS CLINICAL INFORMATION:Stroke COMPARISON: None. PROCEDURE: CT brain perfusion study performed using IV contrast without complication. Examination was performed withpostprocessing in the 3-D lab under concurrent supervision on an independent workstation. Parametric maps generated included mean transit time, cerebral blood volume and cerebral blood flow. Automated exposure control was utilized. All CT scans at this facility use dose modulation, iterative reconstruction, and/or weight based dosing when appropriate to reduce radiation dose to as low as reasonably achievable. FINDINGS: CBF < 30% Volume: 0 mL. TMax > 6.0 s Volume: 51 mL. Mismatch Volume: 5 1 mL. IMPRESSION: * Asymmetric decreased perfusion noted posterior fossa right greater than left temporal lobe regions. Finalized by Kishore Thomas MD on 07/07/2025 2:47 PM Assessment: Sam Carrasco is a 65 y.o. male who presents with left hemiparesis and shortness of breath symptoms. Their risk factors include history of right ICA stenosis s/p stent and currently taking Aspirin 81 mg . Initial NIHSS is 13 (1 for right gaze preference, 1 for partial hemianopia, 1 for mild left facial weakness, 6 for LUE and LLE weakness, 2 for sensory deficits in the left side, 1 for dysarthria, 1 [address]). Initial CT head was unremarkable. Vessel imaging showed right ICA In-stent stenosis and possible basilar stenosis. Patient was transferred to [facility] for CTP. CTP showed asymmetric decreased perfusion in the right greater than left temporal lobe regions.mg/dL. Impression: Proximal R ICA in-stent stenosis s/p re-stenting on 07/09 Plan Transfer to the floor. Continue DAPT Aspirin and Brilinta. Diet: Regular PT/OT/ST Dispo: TBD DVT px: Heparin Code: Full Staffed with: Dr. Emma Billingsley MD PGY-3 Neurology Resident 07/10/25 9:20 AM Cosigned by Lex Carter MD at 07/22/2025 12:37 AM EDT Associated attestation - Lex Carter MD - 07/22/2025 12:37 AM EDT ?Attending?Attestation: ?I saw the patient. I performed the critical/ferreira portions of the service.? I was directly involved in the management and treatment plan of the patient.? I reviewed the residents' notes. ?Additional Notes/Findings: None. ?The clinical encounter comprised of: The patient is being evaluated for stroke and is at risk for neurological deterioration. Preparing to see the patient (e.g., review of tests) Obtaining and/or reviewing separately obtained history Performing a medically appropriate examination and/or evaluation Counseling and educating the patient/family/caregiver Documenting clinical information in the electronic or other health record Independently interpreting results (not separately reported) and communicating results to the patient/family/caregiver Care coordination (not separately reported) ? Lex Carter MD Vascular Neurologist [facility] Neurology ([facility])? Important Notice:??This note was created with the assistance of a speech recognition program.? While intending to generate a timely document that accurately reflects the content of the encounter, no guarantee can be provided that every grammatical or spelling mistake has been or will be identified or corrected.? Thank you for your understanding. * Riley Billingsley MD - 07/09/2025 9:25 AM EDT Stroke / Neurointerventional Ischemic stroke progress note: Date of admission :07/07/2025 12:52 PM Chief complaint: Left-sided deficits and right gaze preference, shortness of breath Last known well: Unclear Premorbid mRS: 1 Initial NIHSS: 13 First CTH: Negative First CTA: Possible right ICA In-stent stenosis and possible basilar stenosis TPA/TNK given?: No Intervention?: No Subjective/Interval: Patient was seen and examined at bedside this morning. Vitals stable, no acute events reported overnight. Tentative plans to perform DSA today. History of presenting illness: Sam Carrasco is a 65 y.o. male who presents with left-sided deficits and right gaze preference. Patient initially to [facility] after he had an episode of shortness of breath and inability to get up. He called his sister who called EMS and brought him to the ED outside hospital ED. On initial evaluation, patient had left hemiparesis and right gaze preference. Initial CT head was unremarkable. Vessel imaging showed right ICA In-stent stenosis and possible basilar stenosis. Patient was transferred to [facility] for CTP. CTP showed asymmetric decreased perfusion in the right greater than left temporal lobe regions. Patient has a history of right ICA stenosis s/p stent placement in May 2020 on aspirin 81 mg and Lipitor 40 mg. He was loaded with Brilinta 180 mg and resumed on his aspirin 81 mg. Home medications: Medications Prior to Admission Medication Sig Dispense Refill Last Dose/Taking aspirin 81 mg chewable tablet Chew 1 tablet (81 mg total) and swallow daily. 30 tablet 5 07/05/2025Morning atorvastatin (LIPITOR) 40 mg tablet Take 1 tablet (40 mg total) by mouth nightly. 30 tablet 2 07/06/2025 Evening albuterol (ACCUNEB) 0.63 mg/3 mL nebulizer solution Inhale 3 mL (0.63 mg total) by nebulization every 6 (six) hours as needed for wheezing. 07/06/2025 albuterol (PROVENTIL HFA;VENTOLIN HFA) 90 mcg/actuation inhaler Inhale 2 puffs every 6 (six) hours as needed for wheezing. 07/06/2025 FLUoxetine (PROzac) 10 mg capsule Take 1 capsule (10 mg total) by mouth in the morning. 07/05/2025 Evening tiotropium (SPIRIVA) 18 mcg per inhalation capsule Place 1 capsule into inhaler and inhale once daily. traZODone (DESYREL) 75 mg tablet Take 50 mg by mouth nightly. 07/05/2025 Evening Past medical history: Past Medical History: Diagnosis Date [place] [place] [place] [place] [place] 07/07/2025 Past surgical history: Past Surgical History: Procedure Laterality Date Diagnostic cerebral angiogram with JAYANT stent placement with embolic protection device N/A 06/12/2020 Performed by Andrew Terrell MD at [facility] CARDIAC CATH LABS THROAT SURGERY TONSILLECTOMY Family history: Hefamily history includes COPD in his mother; Heart disease in his father and mother; Peripheral vascular disease in his mother. Allergies: Heis allergic to bee sting [bee venom protein (honey bee)]. Social history: Social History Socioeconomic History Marital status: Significant Other Spouse name: Not on file Number of children: Not on file Years of education: Not on file Highest education level: Not on file Occupational History Not on file Tobacco Use Smoking status: Every Day Current packs/day: 0.50 Types: Cigarettes Smokeless tobacco: Never Tobacco comments: quit 4 days ago as of 12/21/20 Substance and Sexual Activity Alcohol use: Not Currently Drug use: Yes Types: Marijuana Comment: WHEN I CAN Sexual activity: Defer Other Topics Concern Not on file Social History Narrative Not on file Social Drivers of Health Financial Resource Strain: Low Risk (07/08/2025) Overall Financial Resource Strain (CARDIA) Difficulty of Paying Living Expenses: Not hard at all Food Insecurity: No Food Insecurity (07/08/2025) Hunger Screening Food Insecurity - Worry: Never True Food Insecurity - Inability: Never True Transportation Needs: No Transportation Needs (07/08/2025) PRAPARE - Transportation Lack of Transportation (Medical): No Lack of Transportation (Non-Medical): No Physical Activity: Insufficiently Active (11/13/2023) Received from [facility] Exercise Vital Sign On average, how many days per week do you engage in moderate to strenuous exercise (like a brisk walk)?: 2 days On average, how many minutes do you engage in exercise at this level?: 20 min Stress: No Stress Concern Present (11/13/2023) Received from [facility] [place] [facility]ational [facility] - Occupational Stress Questionnaire Feeling of Stress : Only a little Social Connections: Moderately Integrated (11/13/2023) Received from [facility] Social Connection and Isolation Panel In a typical week, how many times do you talk on the phone with family, friends, or neighbors?: More than three times a week How often do you get together with friends or relatives?: More than three times a week How often do you attend jew or orthodox services?: Never Do you belong to any clubs or organizations such as jew groups, unions, fraternal or athletic groups, or school groups?: Yes How often do you attend meetings of the clubs or organizations you belong to?: More than 4 times per year Are you , , , , never , or living with a partner?: Interpersonal Safety: Not At Risk (07/08/2025) Humiliation, Afraid, Rape, and Kick questionnaire Fear of Current or Ex-Partner: No Emotionally Abused: No Physically Abused: No Sexually Abused: No Housing Instability: Low Risk (07/08/2025) Housing Instability Housing Instability: No Review of systems Review of Systems Physical exam Physical Exam Neurological Exam NIH Stroke Scale 1a Level of consciousness: 0=alert; keenly responsive 1b. LOC questions: 0=Performs both tasks correctly 1c. LOC commands: 0=Performs both tasks correctly 2. Best Gaze: 1=partial gaze palsy 3. Visual: 1=Partial hemianopia 4. Facial Palsy: 1=Minor paralysis (flattened nasolabial fold, asymmetric on smiling) 5a. Motor left arm: 3=No effort against gravity, limb falls 5b. Motor right arm: 0=No drift, limb holds 90 (or 45) degrees for full 10 seconds 6a. motor left le=Drift, limb holds 90 (or 45) degrees but drifts down before full 10 seconds: does not hit bed 6b Motor right le=No drift, limb holds 90 (or 45) degrees for full 10 seconds 7. Limb Ataxia: 0=Absent 8. Sensory: 2=Severe to total sensory loss; patient is not aware of being touched in face, arm, leg 9. Best Language: 0=No aphasia, normal 10. Dysarthria: 1=Mild to moderate, patient slurs at least some words and at worst, can be understood with some difficulty 11. Extinction and Inattention: 1=Visual, tactile, auditory, spatial or personal inattention or extinction to bilateral simultaneous stimulation in one of the sensory modalities Total: 11 Lab Review Lab Results Component Value Date HGBA1C 5.7 (H) 07/07/2025 CALCIUM 8.8 07/09/2025 K 4.1 07/09/2025 CO2 29 07/09/2025 BUN 21 07/09/2025 CREATININE 0.86 07/09/2025 Lab Results Component Value Date WBC 10.6 07/09/2025 HGB 12.9 (L) 07/09/2025 MCV 88 07/09/2025 PLT 289 07/09/2025 Lab Results Component Value Date INR 1.0 06/10/2020 No results found for: LDL , CHOLESTEROLT Imaging CT cerebral perfusion analysis Result Date: 07/07/2025 Narrative: CT CEREBRAL PERF ANALYSIS CLINICAL INFORMATION:Stroke COMPARISON: None. PROCEDURE: CT brain perfusion study performed using IV contrast without complication. Examination was performed withpostprocessing in the 3-D lab under concurrent supervision on an independent workstation. Parametric maps generated included mean transit time, cerebral blood volume and cerebral blood flow. Automated exposure control was utilized. All CT scans at this facility use dose modulation, iterative reconstruction, and/or weight based dosing when appropriate to reduce radiation dose to as low as reasonably achievable. FINDINGS: CBF < 30% Volume: 0 mL. TMax > 6.0 s Volume: 51 mL. Mismatch Volume: 5 1 mL. IMPRESSION: * Asymmetric decreased perfusion noted posterior fossa right greater than left temporal lobe regions. Finalized by Kishore Thomas MD on 07/07/2025 2:47 PM Assessment: Sam Carrasco is a 65 y.o. male who presents with left hemiparesis and shortness of breath symptoms. Their risk factors include history of right ICA stenosis s/p stent and currently taking Aspirin 81 mg . Initial NIHSS is 13 (1 for right gaze preference, 1 for partial hemianopia, 1 for mild left facial weakness, 6 for LUE and LLE weakness, 2 for sensory deficits in the left side, 1 for dysarthria, [address]). Initial CT head was unremarkable. Vessel imaging showed right ICA In-stent stenosis and possible basilar stenosis. Patient was transferred to [facility] for CTP. CTP showed asymmetric decreased perfusion in the right greater than left temporal lobe regions.mg/dL. Impression: Left hemiparesis and right gaze preference symptoms, possibly secondary to ICA in stent-stenosis Plan Continue care in the intensive care unit, possible DSA today. Discussed with interventional team, due to concerns of in-stent stenosis rather than thrombosis, plans to continue aspirin and brilinta at this time. Critical care on board for increased oxygen requirement and work of breathing, concerning for COPD exacerbation Diet: NPO PT/OT/ST Dispo:TBD DVT px: Heparin Code: Full Staffed with: Dr. Emma Billingsley MD PGY-3 Neurology Resident 07/09/25 1:33 PM Cosigned by Lex Carter MD at 07/22/2025 12:37 AM EDT Associated attestation - Lex Carter MD - 07/22/2025 12:37 AM EDT ?Attending?Attestation: ?I saw the patient. I performed the critical/ferreira portions of the service.? I was directly involved in the management and treatment plan of the patient.? I reviewed the residents' notes. ?Additional Notes/Findings: None. ?The clinical encounter comprised of: The patient is being evaluated for stroke and is at risk for neurological deterioration. Preparing to see the patient (e.g., review of tests) Obtaining and/or reviewing separately obtained history Performing a medically appropriate examination and/or evaluation Counseling and educating the patient/family/caregiver Documenting clinical information in the electronic or other health record Independently interpreting results (not separately reported) and communicating results to the patient/family/caregiver Care coordination (not separately reported) ? Lex Carter MD Vascular Neurologist [facility] ([facility])? Important Notice:??This note was created with the assistance of a speech recognition program.? While intending to generate a timely document that accurately reflects the content of the encounter, no guarantee can be provided that every grammatical or spelling mistake has been or will be identified or corrected.? Thank you for your understanding. * Riley Billingsley MD - 07/08/2025 1:37 PM EDT Stroke / Neurointerventional Ischemic stroke progress note: Date of admission :07/07/2025 12:52 PM Chief complaint: Left-sided deficits and right gaze preference, shortness of breath Last known well: Unclear Premorbid mRS: 1 Initial NIHSS: 13 First CTH: Negative First CTA: Possible right ICA In-stent stenosis and possible basilar stenosis TPA/TNK given?: No Intervention?: No Subjective/Interval: Patient was seen and examined at bedside this morning. Vitals stable, no acute events reported overnight. Mild leukocytosis noticed, will continue to monitor. Patient was started on heparin before hecame to the ICU, however per recommendations of interventional team was transitioned to Brilinta. Will touch base with the interventional team regarding appropriate antithrombotic at this time. History of presenting illness: Sam Carrasco is a 65 y.o. male who presents with left-sided deficits and right gaze preference. Patient initially to [facility] after he had an episode of shortness of breath and inability to get up. He called his sister who called EMS and brought him to the ED outside hospital ED. On initial evaluation, patient had left hemiparesis and right gaze preference. Initial CT head was unremarkable. Vessel imaging showed right ICA In-stent stenosis and possible basilar stenosis. Patient was transferred to [facility] for CTP. CTP showed asymmetric decreased perfusion in the right greater than left temporal lobe regions. Patient has a history of right ICA stenosis s/p stent placement in May 2020 on aspirin 81 mg and Lipitor 40 mg. He was loaded with Brilinta 180 mg and resumed on his aspirin 81 mg. Home medications: Medications Prior to Admission Medication Sig Dispense Refill Last Dose/Taking aspirin 81 mg chewable tablet Chew 1 tablet (81 mg total) and swallow daily. 30 tablet 5 07/05/2025Morning atorvastatin (LIPITOR) 40 mg tablet Take 1 tablet (40 mg total) by mouth nightly. 30 tablet 2 07/06/2025 Evening albuterol (ACCUNEB) 0.63 mg/3 mL nebulizer solution Inhale 3 mL (0.63 mg total) by nebulization every 6 (six) hours as needed for wheezing. 07/06/2025 albuterol (PROVENTIL HFA;VENTOLIN HFA) 90 mcg/actuation inhaler Inhale 2 puffs every 6 (six) hours as needed for wheezing. 07/06/2025 FLUoxetine (PROzac) 10 mg capsule Take 1 capsule (10 mg total) by mouth in the morning. 07/05/2025 Evening tiotropium (SPIRIVA) 18 mcg per inhalation capsule Place 1 capsule into inhaler and inhale once daily. traZODone (DESYREL) 75 mg tablet Take 50 mg by mouth nightly. 07/05/2025 Evening Past medical history: Past Medical History: Diagnosis Date [place] [place] [place]phy[place] [place] [place] 07/07/2025 Past surgical history: Past Surgical History: Procedure Laterality Date Diagnostic cerebral angiogram with JAYANT stent placement with embolic protection device N/A 06/12/2020 Performed by Andrew Terrell MD at [facility] C[facility] CATH LABS THROAT SURGERY TONSILLECTOMY Family history: Hefamily history includes COPD in his mother; Heart disease in his father and mother; Peripheral vascular disease in his mother. Allergies: Heis allergic to bee sting [bee venom protein (honey bee)]. Social history: Social History Socioeconomic History Marital status: Significant Other Spouse name: Not on file Number of children: Not on file Years of education: Not on file Highest education level: Not on file Occupational History Not on file Tobacco Use Smoking status: Every Day Current packs/day: 0.50 Types: Cigarettes Smokeless tobacco: Never Tobacco comments: quit 4 days ago as of 12/21/20 Substance and Sexual Activity Alcohol use: Not Currently Drug use: Yes Types: Marijuana Comment: WHEN I CAN Sexual activity: Defer Other Topics Concern Not on file Social History Narrative Not on file Social Drivers of Health Financial Resource Strain: Low Risk (07/08/2025) Overall Financial Resource Strain (CARDIA) Difficulty of Paying Living Expenses: Not hard at all Food Insecurity: No Food Insecurity (07/08/2025) Hunger Screening Food Insecurity - Worry: Never True Food Insecurity - Inability: Never True Transportation Needs: No Transportation Needs (07/08/2025) PRAPARE - Transportation Lack of Transportation (Medical): No Lack of Transportation (Non-Medical): No Physical Activity: Insufficiently Active (11/13/2023) Received from [facility] Exercise Vital Sign On average, how many days per week do you engage in moderate to strenuous exercise (like a brisk walk)?: 2 days On average, how many minutes do you engage in exercise at this level?: 20 min Stress: No Stress Concern Present (11/13/2023) Received from [facility] [place] [facility] - Occupational Stress Questionnaire Feeling of Stress : Only a little Social Connections: Moderately Integrated (11/13/2023) Received from [facility] Social Connection and Isolation Panel In a typical week, how many times do you talk on the phone with family, friends, or neighbors?: More than three times a week How often do you get together with friends or relatives?: More than three times a week How often do you attend jew or orthodox services?: Never Do you belong to any clubs or organizations such as jew groups, unions, fraternal or athletic groups, or school groups?: Yes How often do you attend meetings of the clubs or organizations you belong to?: More than 4 times per year Are you , , , , never , or living with a partner?: Interpersonal Safety: Not At Risk (07/08/2025) Humiliation, Afraid, Rape, and Kick questionnaire Fear of Current or Ex-Partner: No Emotionally Abused: No Physically Abused: No Sexually Abused: No Housing Instability: Low Risk (07/08/2025) Housing Instability Housing Instability: No Review of systems Review of Systems Physical exam Physical Exam Neurological Exam NIH Stroke Scale 1a Level of consciousness: 0=alert; keenly responsive 1b. LOC questions: 0=Performs both tasks correctly 1c. LOC commands: 0=Performs both tasks correctly 2. Best Gaze: 1=partial gaze palsy 3. Visual: 1=Partial hemianopia 4. Facial Palsy: 1=Minor paralysis (flattened nasolabial fold, asymmetric on smiling) 5a. Motor left arm: 3=No effort against gravity, limb falls 5b. Motor right arm: 0=No drift, limb holds 90 (or 45) degrees for full 10 seconds 6a. Motor left le=No effort against gravity, limb falls 6b Motor right le=No drift, limb holds 90 (or 45) degrees for full 10 seconds 7. Limb Ataxia: 0=Absent 8. Sensory: 2=Severe to total sensory loss; patient is not aware of being touched in face, arm, leg 9. Best Language: 0=No aphasia, normal 10. Dysarthria: 1=Mild to moderate, patient slurs at least some words and at worst, can be understood with some difficulty 11. Extinction and Inattention: 1=Visual, tactile, auditory, spatial or personal inattention or extinction to bilateral simultaneous stimulation in one of the sensory modalities Total: 13 Lab Review Lab Results Component Value Date HGBA1C 5.7 (H) 07/07/2025 CALCIUM 9.0 07/08/2025 K 4.3 07/08/2025 CO2 28 07/08/2025 BUN 20 07/08/2025 CREATININE 0.78 07/08/2025 Lab Results Component Value Date WBC 13.3 (H) 07/08/2025 HGB 13.0 07/08/2025 MCV 88 07/08/2025 PLT 337 07/08/2025 Lab Results Component Value Date INR 1.0 06/10/2020 No results found for: LDL , CHOLESTEROLT Imaging CT cerebral perfusion analysis Result Date: 07/07/2025 Narrative: CT CEREBRAL PERF ANALYSIS CLINICAL INFORMATION:Stroke COMPARISON: None. PROCEDURE: CT brain perfusion study performed using IV contrast without complication. Examination was performed withpostprocessing in the 3-D lab under concurrent supervision on an independent workstation. Parametric maps generated included mean transit time, cerebral blood volume and cerebral blood flow. Automated exposure control was utilized. All CT scans at this facility use dose modulation, iterative reconstruction, and/or weight based dosing when appropriate to reduce radiation dose to as low as reasonably achievable. FINDINGS: CBF < 30% Volume: 0 mL. TMax > 6.0 s Volume: 51 mL. Mismatch Volume: 5 1 mL. IMPRESSION: * Asymmetric decreased perfusion noted posterior fossa right greater than left temporal lobe regions. Finalized by Kishore Thomas MD on 07/07/2025 2:47 PM Assessment: Sam Carrasco is a 65 y.o. male who presents with left hemiparesis and shortness of breath symptoms. Their risk factors include history of right ICA stenosis s/p stent and currently taking Aspirin 81 mg . Initial NIHSS is 13 (1 for right gaze preference, 1 for partial hemianopia, 1 for mild left facial weakness, 6 for LUE and LLE weakness, 2 for sensory deficits in the left side, 1 for dysarthria, 1 [address]). Initial CT head was unremarkable. Vessel imaging showed right ICA In-stent stenosis and possible basilar stenosis. Patient was transferred to [facility] for CTP. CTP showed asymmetric decreased perfusion in the right greater than left temporal lobe regions.mg/dL. Impression: Left hemiparesis and right gaze preference symptoms, possibly secondary to ICA in stent-stenosis Plan Continue care in the intensive care unit, might transfer to floor if remains stable. Discussed with interventional team, due to concerns of in-stent stenosis rather than thrombosis, plans to continue aspirin and brilinta at this time. NPO @ midnight for possible angio tomorrow. MRI brain without contrast. Stroke work up including echo, A1c, LDL Consult critical care for increased oxygen requirement and work of breathing, concerning for COPD exacerbation Diet: NPO PT/OT/ST Dispo: TBD DVT px: Hold for now Code: Full Staffed with: Dr. Emma Billingsley MD PGY-3 Neurology Resident 07/08/25 1:40 PM Cosigned by Lex Carter MD at 07/22/2025 12:37 AM EDT Associated attestation - Lex Carter MD - 07/22/2025 12:37 AM EDT ?Attending?Attestation: ?I saw the patient. I performed the critical/ferreira portions of the service.? I was directly involved in the management and treatment plan of the patient.? I reviewed the residents' notes. ?Additional Notes/Findings: None. ?The clinical encounter comprised of: The patient is being evaluated for stroke and is at risk for neurological deterioration. Preparing to see the patient (e.g., review of tests) Obtaining and/or reviewing separately obtained history Performing a medically appropriate examination and/or evaluation Counseling and educating the patient/family/caregiver Documenting clinical information in the electronic or other health record Independently interpreting results (not separately reported) and communicating results to the patient/family/caregiver Care coordination (not separately reported) ? Lex Carter MD Vascular Neurologist [facility] ([facility])? Important Notice:??This note was created with the assistance of a speech recognition program.? While intending to generate a timely document that accurately reflects the content of the encounter, no guarantee can be provided that every grammatical or spelling mistake has been or will be identified or corrected.? Thank you for your understanding. * Leroy Davis MD - 07/08/2025 7:58 AM EDT CRITICAL CARE PROGRESS NOTE Name: Sam Carrasco Age: 65 y.o. Date: 07/08/25 Length of Stay 0 day(s) Assessment & Plan Left hemiparesis and right gaze preference 07/07 MR brain revealed Acute to subacute right frontal and parietal cortical ischemia with small region of the right parietal petechial hemorrhagic transformation. COPD exacerbation, 2 L home O2 use baseline Patient reportedly could not afford Symbicort Plan Nasal cannula as tolerated to maintain SpO2> 90% Scheduled DuoNeb and Pulmicort Encourage bronchopulmonary hygiene Echocardiogram and carotid duplex pending Neuro interventional planning for DSA with possible stent placement later today DVT Prophylaxis- EPC GI prophylaxis- not indicated Nutrition- NPO pending DSA Electrolyte replacement scale per ICU protocol Plan discussed with bedside nurse Critical care service to sign off at this time, please reconsult if further ICU needs should arise. Adonis Fontanez, DRILLER PORTABLE-OCCUPATIONAL THERAPY PROGRAM DIRECTOR Subjective Patient resting in bed. He states that his breathing feels significantly better than what it did when he came into the hospital. He denies any shortness a breath or chest pain at this time. He statesthat he still notices significant weakness in his left side. Hospital Problem: Active Problems: * No active hospital problems. * OBJECTIVE: Lungs: effort normal breath sounds normal Heart: rate normal regular rhythm Abdomen: soft no distension bowel sounds normal Neuro: alert PERRL Vital Signs Temp: [36.7 ??C (98.1 ??F)-37.2 ??C (99 ??F)] 36.9 ??C (98.4 ??F) Pulse: [72-104] 72 Resp: [11-26] 11 BP: (118-175)/(61-98) 124/66 SpO2: [94 %-100 %] 97 % O2 Device: Nasal cannula O2 Flow Rate (L/min): [3 L/min-6 L/min] 3 L/min O2 Device: Nasal cannula Physical Exam Constitutional He is oriented to person, place, and time. He appears well-developed. HENT Head Normocephalic. Eyes: Pupils are equal, round, and reactive to light. Cardiovascular: Normal rate and regular rhythm. Pulmonary/Chest: Effort normal and breath sounds normal. Abdominal: Bowel sounds are normal. He exhibits no distension. Soft. There is no abdominal tenderness. Neurological He is alert and oriented to person, place, and time. Left upper extremity unable to overcome gravity, slight flicker of movement. Left lower extremity able to overcome gravity. Right-sided strength normal. Skin: Skin is warm and dry. I/O last 3 completed shifts: In: - Out: 400 [Urine:400] Results from last 3 days Lab Units 07/08/25 0314 07/07/25 1549 BUN mg/dL 20 17 CREATININE mg/dL 0.78 0.92 POTASSIUM mmol/L 4.3 3.9 CO2 mmol/L 28 30 CHLORIDE mmol/L 102 100 AST U/L 19 16 ALT U/L 13 14 ALK PHOS U/L 58 63 No data from last 3 days. Results from last 3 days Lab Units 07/08/25 0314 07/07/25 1549 WBC x10E9/L 13.3* 9.5 HEMOGLOBIN g/dL 13.0 13.3 HEMATOCRIT % 39.2 40.0 PLATELETS X10E9/L 337 314 MCV fL 88 88 MCH pg 29.1 29.4 MCHC g/dL 33.1 33.4 RDW % 13.4 12.8 EOS ABS AUTO 10*3/uL 0.0 0.0 Microbiology Results No results found for the last 168 hours. Glucose Results from last 7 days Lab Units 07/08/25 0314 07/07/25 1549 07/07/25 1448 BEDSIDE GLUCOSE mg/dL -- -- 117* GLUCOSE mg/dL 90 124* -- Microbiology Results No results found for the last 168 hours. Ventilator Invasive Hemodynamic [place] Lines/Drains Peripheral IV 07/07/25 Anterior;Left;Proximal Forearm (Active) Line Status Flushed;Alcohol sponge cap maintained;Connections checked/tightened 07/08/25 0000 Site Assessment Clean;Dry;Intact 07/08/25 0000 Dressing Type Occlusive;Transparent 07/08/25 0000 Dressing Status Clean;Dry;Intact 07/08/25 0000 Dressing Intervention Initial dressing 07/07/25 1430 Dressing Change Due (Non-Gauze) 07/14/25 07/07/25 1430 Peripheral IV 07/07/25 Anterior;Left Hand (Active) Line Status Flushed;Alcohol sponge cap maintained;Connections checked/tightened 07/08/25 0000 Site Assessment Clean;Dry;Intact 07/08/25 0000 Dressing Type Occlusive;Transparent 07/08/25 0000 Dressing Status Clean;Dry;Intact 07/08/25 0000 Dressing Intervention Initial dressing 07/07/25 1430 Dressing Change Due (Non-Gauze) 07/14/25 07/07/25 1430 I/O last 3 completed shifts: In: - Out: 400 [Urine:400] No intake/output data recorded. aspirin, 81 mg, oral, Daily budesonide, 0.5 mg, nebulization, Q12H ipratropium-albuteroL, 3 mL, nebulization, Q6H ticagrelor, 90 mg, oral, Q12H sodium chloride 0.9 %, 10 mL/hr sodium chloride 0.9 %, 10 mL/hr sodium chloride 0.9 %, 10 mL/hr Adonis Fontanez DRILLER PORTABLE-OCCUPATIONAL THERAPY PROGRAM DIRECTOR Adonis Fontanez APRN-ZANE 07/08/25 4808 ILeroy MD, personally performed the face to face diagnostic evaluation on this patient.I have reviewed the OZ's History, Exam, and MDM and agree with the assessment and plan as written. documented in this encounter H&P Notes * Erick Guzman MD - 07/07/2025 5:11 PM EDT Stroke / Neurointerventional Ischemic stroke admission note: Date of admission :07/07/2025 12:52 PM Chief complaint: Left-sided deficits and right gaze preference, shortness of breath Last known well: Unclear Premorbid mRS: 1 Initial NIHSS: 13 First CTH: Negative First CTA: Possible right ICA In-stent stenosis and possible basilar stenosis TPA/TNK given?: No Intervention?: No History of presenting illness: Sam Carrasco is a 65 y.o. male who presents with left-sided deficits and right gaze preference. Patient initially to [facility] after he had an episode of shortness of breath and inability to get up. He called his sister who called EMS and brought him to the ED outside hospital ED. On initial evaluation, patient had left hemiparesis and right gaze preference. Initial CT head was unremarkable. Vessel imaging showed right ICA In-stent stenosis and possible basilar stenosis. Patient was transferred to [facility] for CTP. CTP showed asymmetric decreased perfusion in the right greater than left temporal lobe regions. Patient has a history of right ICA stenosis s/p stent placement in May 2020 on aspirin 81 mg and Lipitor 40 mg. He was loaded with Brilinta 180 mg and resumed on his aspirin 81 mg. Home medications: Medications Prior to Admission Medication Sig Dispense Refill Last Dose/Taking albuterol (ACCUNEB) 0.63 mg/3 mL nebulizer solution Inhale 1 ampule by nebulization every 6 (six) hours as needed for wheezing. albuterol (PROVENTIL HFA;VENTOLIN HFA) 90 mcg/actuation inhaler Inhale 2 puffs every 6 (six) hours as needed for wheezing. aspirin 81 mg chewable tablet Chew 1 tablet (81 mg total) and swallow daily. 30 tablet 5 atorvastatin (LIPITOR) 40 mg tablet Take 1 tablet (40 mg total) by mouth nightly. 30 tablet 2 FLUoxetine (PROzac) 10 mg capsule Take 10 mg by mouth daily. tiotropium (SPIRIVA) 18 mcg per inhalation capsule Place 1 capsule into inhaler and inhale once daily. traZODone (DESYREL) 75 mg tablet Take 50 mg by mouth nightly. Past medical history: Past Medical History: Diagnosis Date [place] [place] [place] [place] Past surgical history: Past Surgical History: Procedure Laterality Date Diagnostic cerebral angiogram with JAYANT stent placement with embolic protection device N/A 06/12/2020 Performed by Andrew Terrell MD at [facility] CARDIAC CATH LABS THROAT SURGERY TONSILLECTOMY Family history: Hefamily history includes COPD in his mother; Heart disease in his father and mother; Peripheral vascular disease in his mother. Allergies: Heis allergic to bee sting [bee venom protein (honey bee)]. Social history: Social History Socioeconomic History Marital status: Significant Other Spouse name: Not on file Number of children: Not on file Years of education: Not on file Highest education level: Not on file Occupational History Not on file Tobacco Use Smoking status: Every Day Current packs/day: 0.50 Types: Cigarettes Smokeless tobacco: Never Tobacco comments: quit 4 days ago as of 12/21/20 Substance and Sexual Activity Alcohol use: Not Currently Drug use: Yes Types: Marijuana Comment: WHEN I CAN Sexual activity: Defer Other Topics Concern Not on file Social History Narrative Not on file Social Drivers of Health Financial Resource Strain: Low Risk (11/13/2023) Received from [facility] Overall Financial Resource Strain (CARDIA) Difficulty of Paying Living Expenses: Not hard at all Food Insecurity: No Food Insecurity (11/13/2023) Received from [facility] Hunger Vital Sign Within the past 12 months, you worried that your food would run out before you got the money to buymore.: Never true Within the past 12 months, the food you bought just didn't last and you didn't have money to get more.: Never true Transportation Needs: No Transportation Needs (11/13/2023) Received from [facility] PRAPARE - Transportation Lack of Transportation (Medical): No Lack of Transportation (Non-Medical): No Physical Activity: Insufficiently Active (11/13/2023) Received from [facility] Exercise Vital Sign On average, how many days per week do you engage in moderate to strenuous exercise (like a brisk walk)?: 2 days On average, how many minutes do you engage in exercise at this level?: 20 min Stress: No Stress Concern Present (11/13/2023) Received from [facility] [place] [place] [employer] - Occupational Stress Questionnaire Feeling of Stress : Only a little Social Connections: Moderately Integrated (11/13/2023) Received from [facility] Social Connection and Isolation Panel In a typical week, how many times do you talk on the phone with family, friends, or neighbors?: More than three times a week How often do you get together with friends or relatives?: More than three times a week How often do you attend jew or orthodox services?: Never Do you belong to any clubs or organizations such as jew groups, unions, fraternal or athletic groups, or school groups?: Yes How often do you attend meetings of the clubs or organizations you belong to?: More than 4 times per year Are you , , , , never , or living with a partner?: Interpersonal Safety: Not At Risk (11/13/2023) Received from [facility] Humiliation, Afraid, Rape, and Kick questionnaire Within the last year, have you been afraid of your partner or ex-partner?: No Within the last year, have you been humiliated or emotionally abused in other ways by your partner or ex-partner?: No Within the last year, have you been kicked, hit, slapped, or otherwise physically hurt by your partner or ex-partner?: No Within the last year, have you been raped or forced to have any kind of sexual activity by your partner or ex-partner?: No Housing Instability: Low Risk (11/13/2023) Received from [facility] Housing Stability Vital Sign Unable to Pay for Housing in the Last Year: No Number of Places Lived in the Last Year: 1 Unstable Housing in the Last Year: No Review of systems Review of Systems Physical exam Physical Exam Neurological Exam NIH Stroke Scale 1a Level of consciousness: 0=alert; keenly responsive 1b. LOC questions: 0=Performs both tasks correctly 1c. LOC commands: 0=Performs both tasks correctly 2. Best Gaze: 1=partial gaze palsy 3. Visual: 1=Partial hemianopia 4. Facial Palsy: 1=Minor paralysis (flattened nasolabial fold, asymmetric on smiling) 5a. Motor left arm: 3=No effort against gravity, limb falls 5b. Motor right arm: 0=No drift, limb holds 90 (or 45) degrees for full 10 seconds 6a. Motor left le=No effort against gravity, limb falls 6b Motor right le=No drift, limb holds 90 (or 45) degrees for full 10 seconds 7. Limb Ataxia: 0=Absent 8. Sensory: 2=Severe to total sensory loss; patient is not aware of being touched in face, arm, leg 9. Best Language: 0=No aphasia, normal 10. Dysarthria: 1=Mild to moderate, patient slurs at least some words and at worst, can be understood with some difficulty 11. Extinction and Inattention: 1=Visual, tactile, auditory, spatial or personal inattention or extinction to bilateral simultaneous stimulation in one of the sensory modalities Total: 13 Lab Review Lab Results Component Value Date HGBA1C 5.7 (H) 07/07/2025 CALCIUM 8.8 07/07/2025 K 3.9 07/07/2025 CO2 30 07/07/2025 BUN 17 07/07/2025 CREATININE 0.92 07/07/2025 Lab Results Component Value Date WBC 9.5 07/07/2025 HGB 13.3 07/07/2025 MCV 88 07/07/2025 PLT 314 07/07/2025 Lab Results Component Value Date INR 1.0 06/10/2020 No results found for: LDL , CHOLESTEROLT Imaging CT cerebral perfusion analysis Result Date: 07/07/2025 Narrative: CT CEREBRAL PERF ANALYSIS CLINICAL INFORMATION:Stroke COMPARISON: None. PROCEDURE: CT brain perfusion study performed using IV contrast without complication. Examination was performed withpostprocessing in the 3-D lab under concurrent supervision on an independent workstation. Parametric maps generated included mean transit time, cerebral blood volume and cerebral blood flow. Automated exposure control was utilized. All CT scans at this facility use dose modulation, iterative reconstruction, and/or weight based dosing when appropriate to reduce radiation dose to as low as reasonably achievable. FINDINGS: CBF < 30% Volume: 0 mL. TMax > 6.0 s Volume: 51 mL. Mismatch Volume: 5 1 mL. IMPRESSION: * Asymmetric decreased perfusion noted posterior fossa right greater than left temporal lobe regions. Finalized by Kishore Thomas MD on 07/07/2025 2:47 PM Assessment: Sam Carrasco is a 65 y.o. male who presents with left hemiparesis and shortness of breath symptoms. Their risk factors include history of right ICA stenosis s/p stent and currently taking Aspirin 81 mg . Initial NIHSS is 13 (1 for right gaze preference, 1 for partial hemianopia, 1 for mild left facial weakness, 6 for LUE and LLE weakness, 2 for sensory deficits in the left side, 1 for dysarthria, [address] head was unremarkable. Vessel imaging showed right ICA In-stent stenosis and possible basilar stenosis. Patient was transferred to [facility] for CTP. CTP showed asymmetric decreased perfusion in the right greater than left temporal lobe regions.mg/dL. Impression: Left hemiparesis and right gaze preference symptoms, possibly secondary to ICA in stent thrombosis versus basilar stenosis, pending workup Plan Loaded with Brilinta 180 mg. Currently on aspirin 81 mg and Brilinta 90 mg b.i.d. MRI brain without contrast to evaluate ischemia STAT Stroke work up including echo, A1c, LDL Consult critical care for increased oxygen requirement and work of breathing, concerning for COPD exacerbation Diet: NPO PT/OT/ST Erick Guzman MD PGY-2 Neurology Resident Plan and findings have been discussed with Dr. Zhang. Please note any annotations and addendums. Cosigned by Lex Carter MD at 07/22/2025 12:34 AM EDT Associated attestation - Lex Carter MD - 07/22/2025 12:34 AM EDT ?Attending?Attestation: ?I saw the patient. I performed the critical/ferreira portions of the service.? I was directly involved in the management and treatment plan of the patient.? I reviewed the residents' notes. ?Additional Notes/Findings: None. ?The clinical encounter comprised of: The patient is being evaluated for stroke and is at risk for neurological deterioration. Preparing to see the patient (e.g., review of tests) Obtaining and/or reviewing separately obtained history Performing a medically appropriate examination and/or evaluation Counseling and educating the patient/family/caregiver Documenting clinical information in the electronic or other health record Independently interpreting results (not separately reported) and communicating results to the patient/family/caregiver Care coordination (not separately reported) ? Lex Carter MD Vascular Neurologist [facility] Neurology ([facility])? Important Notice:??This note was created with the assistance of a speech recognition program.? While intending to generate a timely document that accurately reflects the content of the encounter, no guarantee can be provided that every grammatical or spelling mistake has been or will be identified or corrected.? Thank you for your understanding. 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 He has multiplerisk factors, including prior right hemispheric stroke status post right ICA stenting, hypertension, hyperlipidemia, type 2 diabetes mellitus, and smoking. Diagnostic cerebral angiography with possible carotid artery stenting was recommended. The risks, alternatives, and benefits of the procedure were discussed with the patient. An estimated 3-5% risk of complication--including, but not limited to, failure, arterial injury, stroke, reperfusion intracerebral hemorrhage, contrast nephropathy, groin complication, and/or --was quoted. Informed consent was obtained. Procedure: Sam Carrasco was identified and brought to the neurointerventional suite. The patient was placed supine on the angiography table. Bilateral groins were shaved, prepped, and draped in the usual sterile fashion. Using the modified Seldinger technique, a 6 Maori sheath was advanced into the rightcommon femoral artery. Through this sheath, a 5 Maori Vert catheter was advanced over a 0.035 wire into the right subclavian artery. Selective catheterization and angiography of the left subclavian, left common carotid, right commoncarotid, and right common femoral arteries were performed. Filming was obtained in anteroposterior,lateral, and oblique projections using digital subtraction technique. Angiographic runs from the right common carotid artery confirmed a high-grade focal proximal cervical in-stent restenosis of the right ICA, measuring approximately 60% by NASCET criteria. At this stage, an exchange-length wire was advanced into the right external carotid artery. The diagnostic catheter and femoral sheath were exchanged for a 6 Maori, 90 cm Neuron MAX sheath. Through this sheath, a Synchro microguidewire was advanced into the petrous segment of the right ICA, which was then exchanged for an Quentin 0.014 wire to provide additional support. Over this wire, a NeuroGuard embolic protection system was advanced to cover the lesion. Subsequently, a NeuroGuard 8//7 x 40 mm carotid artery stent was deployed across the stenotic segment of the right ICA. Post-deployment angioplasty was performed using the integrated 7 mm balloon. The distal embolic protection device was then retrieved. Follow-up angiographic runs demonstrated excellent stent expansion with no residual significant stenosis or filling defect. The right ICA filled well with brisk antegrade flow. At the conclusion of the procedure, all catheters and sheaths were removed, and the groin was closed using a Mynx closure device. There was no undue bleeding, and no immediate complications were noted. The patient was transferred to the recovery unit in stable condition. Right Common Carotid Artery Angiogram: The right common carotid artery angiogram shows normal opacification of the common carotid artery up to its bifurcation. The right common carotid artery at its bifurcation harbors calcified atherosclerotic changes. The right internal carotid artery demonstrates a focal in-stent restenosis at the proximal cervical segment, resulting in luminal diameter reduction of approximately 60% by NASCET criteria. The right external carotid artery fills normally with expected supply to the head and face. The remainder of the right ICA through its distal cervical, petrous, cavernous, and supraclinoid segments fills well. The right ICA continues as the right middle cerebral artery (MCA). The distal right MCA division branches are patent. The right anterior cerebral artery (ANDREI) and distal branches are patent. There is robust filling of the right posterior communicating artery into the ipsilateral posterior cerebral artery with a -type configuration. No arteriovenous shunting or intracranial aneurysm is identified. Right Common Carotid Artery Angiogram Following Angioplasty and Stenting: Post-stent angiogram demonstrates the right ICA at its origin and proximal cervical segment fillingwell with no residual significant stenosis. The stent is well opposed to the vessel wall with no underlying filling defects. Intracranial circulation remains patent. Left Common Carotid Artery Angiogram: The left common carotid artery angiogram shows normal opacification up to its bifurcation. The leftcommon carotid artery at its bifurcation harbors calcified atherosclerotic changes without significant hemodynamic stenosis. The left external carotid artery fills normally with expected supply to the head and face. The left internal carotid artery fills well through its extracranial and intracranial segments. The left MCA and distal branches opacify normally. The left ANDREI and its branches fill in normal fashion. There is robust filling of the left posterior communicating artery into the ipsilateral left posterior cerebral artery with -type configuration. No abrupt vessel cutoff or arteriovenous shunting is identified. Right Common Femoral Artery Angiogram: The right common femoral artery angiogram shows normal opacification of the right common femoral artery with normal runoff into the distal extremity. Impression: Sam Carrasco underwent diagnostic cerebral angiography and right internal carotid artery angioplasty and re-stenting using a NeuroGuard distal embolic protection system for symptomatic [id number] restenosis of the proximal right ICA. The procedure was successfully completed without any immediate complications. Rosibel Zhang MD Neuro IR Fellow Cosigned by Andrew Terrell MD at 07/09/2025 1:34 PM EDT Associated attestation - Andrew Terrell MD - 07/09/2025 1:34 PM EDT I was continuously present and supervising in the angiography suite via direct visualization and inconstant verbal communication with the fellow throughout the procedure. I personally directed the critical part of the procedure, stent deployment. Andrew Terrell MD PhD Vascular Neurology Neurointerventional Surgery documented in this encounter Consult Notes * Viktor Cortes MD - 07/07/2025 10:06 PM EDTAssociated Order(s): IP CONSULT TO [facility] Images from the original note were not included. CRITICAL CARE CONSULTATION NOTE Name: Sam Carrasco Date: 07/07/2025 Length of Stay: 0 day(s) No chief complaint on file. History of Present Illness: Sam Carrasco is a 65 y.o. year-old male admitted to Neuro ICU for R sided stroke from R ICA in stent thrombosis vs basilar stenosis. Hx of R ICA stent in 2019. He received 180 mg brilinta and ASA prior to arrival. We were consulted for COPD exacerbation. He has SOB but denies pain. Past Medical History: Diagnosis Date ??? [place] [place]?? [place] [place] ??? [place] [place] Past Surgical History: Procedure Laterality Date ??? Diagnostic cerebral angiogram with JAYANT stent placement with embolic protection device N/A 06/12/2020 Performed by Andrew Terrell MD at [facility] CARDIAC CATH LABS ??? THROAT SURGERY ??? TONSILLECTOMY Review of Systems History obtained from the patient Family History Problem Relation Age of Onset ??? Heart disease Mother ??? COPD Mother ??? Peripheral vascular disease Mother ??? Heart disease Father Social History Socioeconomic History ??? Marital status: Significant Other Tobacco Use ??? Smoking status: Every Day Current packs/day: 0.50 Types: Cigarettes ??? Smokeless tobacco: Never ??? Tobacco comments: quit 4 days ago as of 12/21/20 Substance and Sexual Activity ??? Alcohol use: Not Currently ??? Drug use: Yes Types: Marijuana Comment: WHEN I CAN ??? Sexual activity: Defer Social Drivers of Health Financial Resource Strain: Low Risk (11/13/2023) Received from [facility] Overall Financial Resource Strain (CARDIA) ??? Difficulty of Paying Living Expenses: Not hard at all Food Insecurity: No Food Insecurity (11/13/2023) Received from [facility] Hunger Vital Sign ??? Within the past 12 months, you worried that your food would run out before you got the money tobuy more.: Never true ??? Within the past 12 months, the food you bought just didn't last and you didn't have money to get more.: Never true Transportation Needs: No Transportation Needs (11/13/2023) Received from [facility] PRAPARE - Transportation ??? Lack of Transportation (Medical): No ??? Lack of Transportation (Non-Medical): No Physical Activity: Insufficiently Active (11/13/2023) Received from [facility] Exercise Vital Sign ??? On average, how many days per week do you engage in moderate to strenuous exercise (like a brisk walk)?: 2 days ??? On average, how many minutes do you engage in exercise at this level?: 20 min Stress: No Stress Concern Present (11/13/2023) Received from [facility] [place] [facility] - Occupational Stress Questionnaire ??? Feeling of Stress : Only a little Social Connections: Moderately Integrated (11/13/2023) Received from [facility] Social Connection and Isolation Panel ??? In a typical week, how many times do you talk on the phone with family, friends, or neighbors?:More than three times a week ??? How often do you get together with friends or relatives?: More than three times a week ??? How often do you attend jew or orthodox services?: Never ??? Do you belong to any clubs or organizations such as jew groups, unions, fraternal or athletic groups, or school groups?: Yes ??? How often do you attend meetings of the clubs or organizations you belong to?: More than 4 times per year ??? Are you , , , , never , or living with a partner?: Interpersonal Safety: Not At Risk (11/13/2023) Received from [facility] Humiliation, Afraid, Rape, and Kick questionnaire ??? Within the last year, have you been afraid of your partner or ex-partner?: No ??? Within the last year, have you been humiliated or emotionally abused in other ways by your partner or ex-partner?: No ??? Within the last year, have you been kicked, hit, slapped, or otherwise physically hurt by your partner or ex-partner?: No ??? Within the last year, have you been raped or forced to have any kind of sexual activity by yourpartner or ex-partner?: No Housing Instability: Low Risk (11/13/2023) Received from [facility] Housing Stability Vital Sign ??? Unable to Pay for Housing in the Last Year: No ??? Number of Places Lived in the Last Year: 1 ??? Unstable Housing in the Last Year: No Medications Prior to Admission Medication Sig Dispense Refill Last Dose/Taking ??? albuterol (ACCUNEB) 0.63 mg/3 mL nebulizer solution Inhale 1 ampule by nebulization every 6 (six) hours as needed for wheezing. ??? albuterol (PROVENTIL HFA;VENTOLIN HFA) 90 mcg/actuation inhaler Inhale 2 puffs every 6 (six) hours as needed for wheezing. ??? aspirin 81 mg chewable tablet Chew 1 tablet (81 mg total) and swallow daily. 30 tablet 5 ??? atorvastatin (LIPITOR) 40 mg tablet Take 1 tablet (40 mg total) by mouth nightly. 30 tablet 2 ??? FLUoxetine (PROzac) 10 mg capsule Take 10 mg by mouth daily. ??? tiotropium (SPIRIVA) 18 mcg per inhalation capsule Place 1 capsule into inhaler and inhale oncedaily. ??? traZODone (DESYREL) 75 mg tablet Take 50 mg by mouth nightly. ??? aspirin, 81 mg, oral, Daily ??? budesonide, 1 mg, nebulization, Q12H ??? ipratropium-albuteroL, 3 mL, nebulization, Q6H ??? [START ON 07/08/2025] ticagrelor, 90 mg, oral, Q12H ??? sodium chloride 0.9 %, 10 mL/hr ??? sodium chloride 0.9 %, 10 mL/hr ??? sodium chloride 0.9 %, 10 mL/hr Allergies Allergen Reactions ??? Bee Sting [Bee Venom Protein (Honey Bee)] Temp: [36.7 ??C (98.1 ??F)-37.2 ??C (99 ??F)] 37.2 ??C (99 ??F) Pulse: [85-104] 93 Resp: [13-26] 26 BP: (118-175)/(61-98) 165/89 SpO2: [94 %-97 %] 97 % O2 Device: Nasal cannula O2 Flow Rate (L/min): [6 L/min] 6 L/min O2 Device: Nasal cannula Physical Exam General: well developed, well nourished Neurological: Left hemineglect and hemianopsia, 0/5 strength LUE, 4/5 strength LLE, RUE and RLE normal strength. Mild dysarthria, no aphasia, answers questions appropriately Head: Atraumatic, normocephalic Eyes: Normal conjunctiva, PERRL Ears: Grossly normal hearing Nose: Grossly normal Oral Pharynx: Moist mucous membranes, tongue midline Neck: Trachea midline, supple Cardiovascular: Regular rate and rhythm, no murmurs/rubs/gallops Pulmonary: bilateral wheezing present. Purse lip breathing Abdominal: Soft, nontender, nondistended, no rebounding/guarding Skin: Warm and dry Extremities: no peripheral edema Lines/Drains Peripheral IV 07/07/25 Anterior;Left;Proximal Forearm (Active) Line Status No blood return;Saline locked;Flushed;Alcohol sponge cap maintained;Connections checked/tightened 07/07/251999 Site Assessment Clean;Intact;Dry 07/07/251999 Dressing Type Occlusive;Transparent 07/07/251999 Dressing Status Clean;Dry;Intact 07/07/251999 Dressing Intervention Initial dressing 07/07/250 Dressing Change Due (Non-Gauze) 07/14/25 07/07/25 1430 Peripheral IV 07/07/25 Anterior;Left Hand (Active) Line Status Blood return noted;Saline locked;Flushed;Alcohol sponge cap maintained;Connections checked/tightened 07/07/251999 Site Assessment Clean;Dry;Intact 07/07/251999 Dressing Type Occlusive;Transparent 07/07/251999 Dressing Status Clean;Dry;Intact 07/07/251999 Dressing Intervention Initial dressing 07/07/25 1430 Dressing Change Due (Non-Gauze) 07/14/25 07/07/25 1430 No intake/output data recorded. Results from last 3 days Lab Units 07/07/25 1549 BUN mg/dL 17 CREATININE mg/dL 0.92 POTASSIUM mmol/L 3.9 CO2 mmol/L 30 CHLORIDE mmol/L 100 AST U/L 16 ALT U/L 14 ALK PHOS U/L 63 No data from last 3 days. Results from last 3 days Lab Units 07/07/25 1549 WBC x10E9/L 9.5 HEMOGLOBIN g/dL 13.3 HEMATOCRIT % 40.0 PLATELETS X10E9/L 314 MCV fL 88 MCH pg 29.4 MCHC g/dL 33.4 RDW % 12.8 EOS ABS AUTO 10*3/uL 0.0 Microbiology Results No results found for the last 168 hours. Glucose Results from last 7 days Lab Units 07/07/25 1549 07/07/25 1448 BEDSIDE GLUCOSE mg/dL -- 117* GLUCOSE mg/dL 124* -- Patient Active Problem List Diagnosis ??? Internal carotid artery stenosis, right ??? CVA (cerebral vascular accident) ([facility]) ??? Mixed hyperlipidemia ??? Smoker ASSESSMENT R sided stroke Possible JAYANT in stent thrombosis COPD exacerbation on home duoneb, could not afford symbicort on 3Lhome O2 PLAN Duonebs and pulmicort nebulizer ordered May need steroids if he does not improve Follow up MRI Rest of care per primary team Nutrition:Per primary team Activity:As tolerated DVT prophylaxis:Per primary team GI prophylaxis:Not indicated Glycemic control: SSI if needed Replace electrolytes per protocol LINES/DRAINS/AIRWAYS: CODE STATUS: Full DISPOSITION: ICU Most recent imaging / lab studies independently reviewed. *Please also note additional orders Daily plan discussed with bedside nursing and respiratory therapist. VIKTOR CORTES MD Department of Anesthesiology and Critical Care Medicine 07/07/25 10:07 PM Please contact me via Patient-Touch documented in this encounter Nursing Notes * Deepthi Lion RN - 07/10/2025 7:38 AM EDT Multidisciplinary Rounds Attendees: Bedside RN, Unit clinical lead, and Stroke RN Diet: Dietary Orders (From admission, onward) Start Ordered 07/09/25 1621 Adult diet Regular Texture Diet effective now Question: Diet Type: Answer: Regular Texture 07/09/25 1620 PT OT WILDLIFE TECHNICIAN: PT OT WILDLIFE TECHNICIAN Orders (From admission, onward) Start Ordered 07/07/25 170 Consult Occupational Therapy- eval/treat (Consult Occupational Therapy) Once Question Answer Comment Does patient currently have an order for bedrest? No - (continue) Has nursing attempted to mobilize this patient? Yes- (continue) Reason for OT Stroke 07/07/25 1709 07/07/25 170 Consult Physical Therapy- eval/treat (Consult Physical Therapy) Once Question Answer Comment Does patient currently have an order for bedrest? No - (continue) Has nursing attempted to mobilize this patient? Yes- (continue) Reason for PT? Stroke 07/07/25 1709 07/07/25 170 Consult Speech Therapy- eval/treat (Consult Speech Therapy) Once Question: Reason for ST? Answer: Stroke 07/07/25 1709 07/07/25 1514 Consult Speech Therapy- eval/treat (Adult Swallow Motility Function with Speech Consult eval & treat) Once Question Answer Comment Reason for ST? Video Swallow Video Swallow must be ordered within the Adult Swallow Motility Function panel. Acknowledged 07/07/25 1513 07/07/25 1454 Consult Occupational Therapy- eval/treat (Consult Occupational Therapy) Once Question Answer Comment Does patient currently have an order for bedrest? Yes - please change activity order before proceeding Has nursing attempted to mobilize this patient? No - should occur before consult order is placed Reason for OT Skilled need for ADL intervention(s) Reason for OT Stroke 07/07/25 1456 07/07/25 1454 Consult Physical Therapy- eval/treat (Consult Physical Therapy) Once Question Answer Comment Does patient currently have an order for bedrest? Yes - please change activity order before proceeding Has nursing attempted to mobilize this patient? No - should occur before consult order is placed Reason for PT? Discharge recommendations Reason for PT? Stroke 07/07/25 1456 07/07/25 1453 Consult Speech Therapy- eval/treat Once Question: Reason for ST? Answer: Stroke 07/07/25 1452 Activity: Early mobility Comments: Carroll: No CVL: No Drips: None Intubated: No Family Issues: None Outstanding Tests/Procedures: none Barriers: None Discharge Plan: Needs PT/OT evaluation * Deepthi Lion RN - 07/09/2025 7:57 AM EDT Multidisciplinary Rounds Attendees: Bedside RN, Unit clinical lead, and Stroke RN Diet: Dietary Orders (From admission, onward) Start Ordered 07/09/25 0001 Adult diet NPO; Except medications Diet effective midnight Question Answer Comment Diet Type: NPO NPO Except: Except medications 07/08/25 1611 PT OT WILDLIFE TECHNICIAN: PT OT WILDLIFE TECHNICIAN Orders (From admission, onward) Start Ordered 07/07/25 170 Consult Occupational Therapy- eval/treat (Consult Occupational Therapy) Once Question Answer Comment Does patient currently have an order for bedrest? No - (continue) Has nursing attempted to mobilize this patient? Yes- (continue) Reason for OT Stroke 07/07/25 1709 07/07/251706 Consult Physical Therapy- eval/treat (Consult Physical Therapy) Once Question Answer Comment Does patient currently have an order for bedrest? No - (continue) Has nursing attempted to mobilize this patient? Yes- (continue) Reason for PT? Stroke 07/07/25 1709 07/07/25 170 Consult Speech Therapy- eval/treat (Consult Speech Therapy) Once Question: Reason for ST? Answer: Stroke 07/07/25 1709 07/07/25 1514 Consult Speech Therapy- eval/treat (Adult Swallow Motility Function with Speech Consult eval & treat) Once Question Answer Comment Reason for ST? Video Swallow Video Swallow must be ordered within the Adult Swallow Motility Function panel. Acknowledged 07/07/25 1513 07/07/25 1454 Consult Occupational Therapy- eval/treat (Consult Occupational Therapy) Once Question Answer Comment Does patient currently have an order for bedrest? Yes - please change activity order before proceeding Has nursing attempted to mobilize this patient? No - should occur before consult order is placed Reason for OT Skilled need for ADL intervention(s) Reason for OT Stroke 07/07/25 1456 07/07/25 1454 Consult Physical Therapy- eval/treat (Consult Physical Therapy) Once Question Answer Comment Does patient currently have an order for bedrest? Yes - please change activity order before proceeding Has nursing attempted to mobilize this patient? No - should occur before consult order is placed Reason for PT? Discharge recommendations Reason for PT? Stroke 07/07/25 1456 07/07/251452 Consult Speech Therapy- eval/treat Once Question: Reason for ST? Answer: Stroke 07/07/25 145 Activity: Early mobility Comments: Carroll: No CVL: No Drips: None Intubated: No Family Issues: None Outstanding Tests/Procedures: Angio Barriers: None Discharge Plan: Needs PT/OT evaluation * Deepthi Lion RN - 07/08/2025 8:15 AM EDT Multidisciplinary Rounds Attendees: Bedside RN, Unit clinical lead, and Stroke RN Diet: Dietary Orders (From admission, onward) Start Ordered 07/08/25 0758 Adult diet NPO; Except medications Diet effective now Question Answer Comment Diet Type: NPO NPO Except: Except medications 07/08/25 0757 PT OT WILDLIFE TECHNICIAN: PT OT WILDLIFE TECHNICIAN Orders (From admission, onward) Start Ordered 07/07/251706 Consult Occupational Therapy- eval/treat (Consult Occupational Therapy) Once Question Answer Comment Does patient currently have an order for bedrest? No - (continue) Has nursing attempted to mobilize this patient? Yes- (continue) Reason for OT Stroke 07/07/25 17007/07/251706 Consult Physical Therapy- eval/treat (Consult Physical Therapy) Once Question Answer Comment Does patient currently have an order for bedrest? No - (continue) Has nursing attempted to mobilize this patient? Yes- (continue) Reason for PT? Stroke 07/07/25 1709 07/07/25 170 Consult Speech Therapy- eval/treat (Consult Speech Therapy) Once Question: Reason for ST? Answer: Stroke 07/07/25 1709 07/07/25 151 Consult Speech Therapy- eval/treat (Adult Swallow Motility Function with Speech Consult eval & treat) Once Question Answer Comment Reason for ST? Video Swallow Video Swallow must be ordered within the Adult Swallow Motility Function panel. Acknowledged 07/07/25 1513 07/07/25 1454 Consult Occupational Therapy- eval/treat (Consult Occupational Therapy) Once Question Answer Comment Does patient currently have an order for bedrest? Yes - please change activity order before proceeding Has nursing attempted to mobilize this patient? No - should occur before consult order is placed Reason for OT Skilled need for ADL intervention(s) Reason for OT Stroke 07/07/256 07/07/251453 Consult Physical Therapy- eval/treat (Consult Physical Therapy) Once Question Answer Comment Does patient currently have an order for bedrest? Yes - please change activity order before proceeding Has nursing attempted to mobilize this patient? No - should occur before consult order is placed Reason for PT? Discharge recommendations Reason for PT? Stroke 07/07/25 1456 07/07/251452 Consult Speech Therapy- eval/treat Once Question: Reason for ST? Answer: Stroke 07/07/251451 Activity: Early mobility Comments: Carroll: No CVL: No Drips: None Intubated: No Family Issues: None Outstanding Tests/Procedures: Angio Barriers: None Discharge Plan: Needs PT/OT evaluation documented in this encounter Miscellaneous Notes * Discharge Planning Note - DIAMOND Ocasio - 07/12/2025 10:25 AM EDT DISCHARGE PLANNING NOTE BLS transport confirmed via [facility] going to [facility] on 07/12/2025 at 1500 * Discharge Planning Note - Jaki Dubois RN - 07/12/2025 9:50 AM EDT Ongoing Assessment for Discharge Needs Reviewed discharge milestones and patient needs related to discharge plan. Current estimated discharge date of Jul 12, 2025 has been reviewed by treatment team. [facility] accepted and has a bed open today. Pt agreeable and will notify hissister. Tasked for BLS transport set up. Waiting on DC orders, CRF. Will complete HENS when ready. Pt will discharge with home dose of oxygen 2L. Ongoing Assessment for Discharge Needs Flowsheet Row Most Recent Value Referral To Community Referrals / Resources Provided Denies needs Services Requested Patient expects to be discharged to: SNF Does the patient wish to have family/friend/caregiver involved in their discharge planning? Yes Does the patient plan to return home to a community setting? No, patient to discharge to facility-based provider. See Discharge Disposition Discharge Disposition SNF SNF Name [facility] SNF Accepted? Yes Who is the existing DME Provider? [employer] ([phone]) Does the patient need discharge transportation arranged? Yes Transportation Arranged Ambulance Mobility issues discussed with transportation provider Yes Patient choice offered Yes List Provided Yes [facility] List Provided [facility] Facility DC Planning Complete Discharge Milestones Yes Respiratory Indicator Does the patient currently have home respiratory equipment? Yes What home respiratory equipment do they currently have? Oxygen Who is the existing DME Provider? [employer] ([phone]) Will the patient need additional respiratory equipment at discharge? No, respiratory DME needs currently met with existing home equipment 3-Midnight Is SNF the current discharge plan for this Traditional/Orignal Medicare patient? Yes Did The Patient Complete A 3 Midnight Qualifying Inpatient Stay? Yes - Jaki Dubois RN 07/12/25 9:50 AM Addendum: Pt updated on transport time. He states he will notify his sister. CRF reviewed and sent to facility. HENS completed. Discharge packet ready and at bedside. - Jaki Dubois RN 07/12/25 1:00 PM * Plan of Care - Chucho Branch RN - 07/12/2025 9:01 AM EDT Problem: Safety Goal: Patient will be injury free during hospitalization Description: INTERVENTIONS: 1. Assess patient's risk for falls and implement fall prevention plan of care per policy 2. Provide and maintain a safe environment 3. Proper use of double Identifiers 4. Medication administration using the 5 rights 5. Hand hygiene 6. Specimens are labeled at the bedside 7. Instruct patient/ patient commercial sales representative about use of safety devices 8. Include patient/ patient commercial sales representative in decisions related to safety Outcome: Progressing Note: Evaluation of progress towards goal: Patient safe and free from injury Problem: Neurological Deficit Goal: Neurological status is stable or improving Description: Patient's goal is: INTERVENTIONS 1. Complete Neurological assessment as indicated/ordered 2. Initiate measures to prevent increased intracranial pressure 3. Monitor and assess patient's level of consciousness, motor function, sensory function, and levelof assistance needed for ADLs 4. Monitor and report changes from baseline 5. Maintain blood pressure and fluid volume within ordered parameters to optimize cerebral perfusion and minimize risk of hemorrhage 6. Monitor labs and diagnostic tests 7. Administer anti-seizure medications as ordered 8. Maintain airway, patient safety and administer oxygen as ordered 9. Monitor patient for seizure activity, document and report duration and description of seizure toLIP 10. If seizure occurs, turn patient to side and suction secretions as needed 11. Reorient patient post seizure 12. Seizure pads on all 4 side rails 13. Instruct patient/family to notify RN of any seizure activity 14. Instruct patient/family to call for assistance with activity based on assessment 15. Utilize bleeding precautions if thrombolytic given Outcome: Progressing Note: Evaluation of progress towards goal: Patient will maintain or improve neurologic status Problem: Activity Intolerance/Impaired Mobility Goal: Mobility/activity is maintained at optimum level for patient Description: Patient's goal is: INTERVENTIONS 1. Assess and monitor patient barriers to mobility and need for assistive/adaptive devices 2. Assess patient's emotional response to limitations 3. Collaborate with interdisciplinary teams and initiate plans and interventions as ordered 4. Encourage independent activity per tolerance 5. Maintain proper body alignment 6. Perform active/passive ROM as tolerated/ordered 7. Coordinate activities to conserve energy 8. Reposition patient 9. Ensure adequate rest/sleep time Outcome: Progressing Note: Evaluation of progress towards goal: Patient attain activities of daily living with assistance or with patient physical mobility Problem: Potential for Compromised Skin Integrity Goal: Skin integrity is maintained or improved Description: Patient's goal is: INTERVENTIONS 1. Perform initial skin assessment on admission and as needed 2. Turn patient every 2 hours and PRN 3. Relieve pressure to bony prominences 4. Avoid shearing 5. Keep skin clean and dry 6. Alternate a full bath with partial baths for elderly 7. Apply lotion/moisturizer on skin 8. Monitor patient's hygiene practices 9. Float heels 10. Collaborate with interdisciplinary team and initiate plans and interventions as needed Outcome: Progressing Note: Evaluation of progress towards goal: Patient maintain skin integrity with no skin breakdown * Plan of Care - Partha Randhawa RN - 07/12/2025 12:54 AM EDT Problem: Discharge Planning Goal: Discharge to post-acute care, other facility, or home with appropriate resources Description: Patient's goal is: INTERVENTIONS 1. Conduct assessment to determine patient/family and health care team treatment goals, and need for post-acute services based on payer coverage, community resources, and patient preferences, and barriers to discharge 2. Coordinate with Social work, Care Navigation, and Utilization Review to arrange appropriate level of services according to patient's needs based on patient preference and payer coverage in collaboration with the physician and health care team 3. Address psychosocial, clinical, and financial barriers to discharge as identified in assessment in conjunction with the patient/family and health care team 4. Consult appropriate ancillary services (i.e.. PT/OT/ST, etc) as needed 5. Communicate with and update the patient/family, physician, and health care team regarding progress on the discharge plan 6. Identify discharge learning needs (meds, wound care, etc). 7. Arrange for needed discharge transportation as appropriate Outcome: Progressing Note: Evaluation of progress towards goal: Pt to discharge to snf facility. Awaiting insurance authorization at this time. Pt verbalized understanding of treatment plan * Plan of Care - Partha Randhawa RN - 07/12/2025 12:51 AM EDT Problem: Discharge Planning Goal: Discharge to post-acute care, other facility, or home with appropriate resources Description: Patient's goal is: INTERVENTIONS 1. Conduct assessment to determine patient/family and health care team treatment goals, and need for post-acute services based on payer coverage, community resources, and patient preferences, and barriers to discharge 2. Coordinate with Social work, Care Navigation, and Utilization Review to arrange appropriate level of services according to patient's needs based on patient preference and payer coverage in collaboration with the physician and health care team 3. Address psychosocial, clinical, and financial barriers to discharge as identified in assessment in conjunction with the patient/family and health care team 4. Consult appropriate ancillary services (i.e.. PT/OT/ST, etc) as needed 5. Communicate with and update the patient/family, physician, and health care team regarding progress on the discharge plan 6. Identify discharge learning needs (meds, wound care, etc). 7. Arrange for needed discharge transportation as appropriate Outcome: Progressing Note: Evaluation of progress towards goal: Pt to discharge to snf facility. Awaiting insurance authorization at this time. Pt verbalized understanding of treatment plan * PT/OT/WILDLIFE TECHNICIAN - ROMAN Carrera - 07/11/2025 4:17 PM EDT Occupational Therapy Treatment Discharge Recommendations for Safe Patient Transition OT Discharge Disposition Recommendation: Post acute - moderate OT Post Acute Moderate Rehab Needs: Recommend moderate intensity rehab, Tolerate 1-2 hrs of therapy3-5 days/wk, Subacute or chronic functional impairment 6 Clicks: Daily Activity Putting on and taking off regular lower body clothing?: A lot Bathing (including washing, rinsing, drying)?: A lot Toileting, which includes using toilet, bedpan or urinal?: A lot Putting on and taking off regular upper body clothing?: A lot Taking care of personal grooming such as brushing teeth?: A little Eating meals?: A little Scoring Daily Activity Raw Score: 14 CMS G Code Modifier: CK Therapy Plan Need for skilled Occupational Therapy to address deficits in ADL independence and functional mobility due to a status decline resulting from 07/11/25 1526 UE ROM UE ROM exercises performed? Yes Shoulder flexion/extension x Shoulder horizontal abduction/adduction x Elbow flexion/extension x Wrist flexion/extension x Digital flexion/extension x Repetitions 15 reps w/L UE w/PROM w/slight AAROM Assessment Patient Assessment Patient Response to Treatment: Slow progress, decreased activity tolerance Visit RN Communication: Yes Medical Record Reviewed: Yes OT Type of Visit: Treatment Precautions Activity: ok for therapy per RAJEEV Rios Equipment: gait belt, RW and chair alarm and external catheter Telemetry/Statistical Developer: Yes Oxygen Used: 3L Other: L side weakness, high fall risk, hx tourette's syndrome Pain Assessment Pain Assessment: No/denies pain ADL / IADL Other: completed prior to tx Home Management - IADL Other: completed prior to tx Hearing / Speech / Vision Hearing: Within Functional Limits Speech: Within Functional Limits Cognition Overall Cognitive Status: Within Functional Limits Bed Mobility Other: pt up in chair before and after tx w/call light in hand and chair alarm on Transfers Sit to Stand: Max assist (x2) Stand to Sit: Max assist (x2) Other: completed STS 2xs Gait Gait Assistance: Max assist Assistive Device: Rolling walker Gait Distance: 5ft Limiting Factors to Gait: Fatigue, Weakness, Other (comment) (DORAN) Balance Sitting Balance: Static: Fair Standing Balance: Static: Poor Standing Balance: Dynamic: Poor (w/bilat UEsupport) Other: stood about [id number], 1x w/HHAx2 and 1x w/RW and maxA; L knee hyperextends and chepe Activity Tolerance Endurance: Tolerates >30 minutes activity with rest breaks Plan Occupational Therapy Care Plan Occupational Therapy Care Plan (Active) Template: OT - Occupational Therapy Problem: Activity Tolerance Dates: Start: 07/10/25 Disciplines: OT Goal: Tolerate 30 minutes of activity WITH rest breaks Dates: Start: 07/10/25 Expected End: 08/07/25 Description: Goal Description: Disciplines: OT Outcomes Date/Time User Outcome 07/11/25 1616 RADHA Carrera/Chloe Progressing Problem: Bathing LB Dates: Start: 07/10/25 Disciplines: OT Goal: Patient will perform bathing LB with Minimum Assist Dates: Start: 07/10/25 Expected End: 08/07/25 Description: Goal Description: Disciplines: OT Problem: Bathing UB Dates: Start: 07/10/25 Disciplines: OT Goal: Patient will perform bathing UB with Minimum Assist Dates: Start: 07/10/25 Expected End: 08/07/25 Description: Goal Description: Disciplines: OT Problem: Bed Mobility Dates: Start: 07/10/25 Disciplines: OT Goal: Patient will perform bed mobility with Minimum Assist Dates: Start: 07/10/25 Expected End: 08/07/25 Description: Goal Description: Disciplines: OT Problem: Dressing LB Dates: Start: 07/10/25 Disciplines: OT Goal: Patient will perform dressing LB with Minimum Assist Dates: Start: 07/10/25 Expected End: 08/07/25 Description: Goal Description: Disciplines: OT Problem: Dressing UB Dates: Start: 07/10/25 Disciplines: OT Goal: Patient will perform dressing UB with Minimum Assist Dates: Start: 07/10/25 Expected End: 08/07/25 Description: Goal Description: Disciplines: OT Problem: Grooming Dates: Start: 07/10/25 Disciplines: OT Goal: Patient will perform grooming with Minimum Assist Dates: Start: 07/10/25 Expected End: 08/07/25 Description: Goal Description: Disciplines: OT Problem: ROM Dates: Start: 07/10/25 Disciplines: OT Goal: Improve ROM Dates: Start: 07/10/25 Expected End: 08/07/25 Description: Improve left upper extremity to any functional/ active range of motion. Disciplines: OT Outcomes Date/Time User Outcome 07/11/25 1616 Marlyn Murray RADHA/L Progressing Problem: Sitting Balance Dates: Start: 07/10/25 Disciplines: OT Goal: Improve balance to good Dates: Start: 07/10/25 Expected End: 08/07/25 Description: Good static balance. Disciplines: OT Outcomes Date/Time User Outcome 07/11/25 1616 Marlyn Murray RADHA/L Progressing Problem: Standing Balance Dates: Start: 07/10/25 Disciplines: OT Goal: Improve balance to good Dates: Start: 07/10/25 Expected End: 08/07/25 Description: Good static balance. Disciplines: OT Outcomes Date/Time User Outcome 07/11/25 1616 Marlyn Murray RADHA/Chloe Progressing Problem: Transfers Dates: Start: 07/10/25 Disciplines: OT Goal: Patient will perform transfers with Minimum Assist Dates: Start: 07/10/25 Expected End: 08/07/25 Description: As able and patient tolerates. Disciplines: OT Outcomes Date/Time User Outcome 07/11/25 1616 Marlyn Murray MARKER MAKER/Chloe Progressing Occupational Therapy Care Plan (Resolved) There are no resolved problems. Principal Problem: Stroke (cerebrum) ([facility]) Cosigned by Dai Sanchez OTR/Chloe at 07/12/2025 2:40 PM EDT Associated attestation - Dai Sanchez OTR/Chloe - 07/12/2025 2:40 PM EDT I have reviewed and agree with this note and education documentation for this visit. * PT/OT/WILDLIFE TECHNICIAN - Sandeep Leigh PTA - 07/11/2025 4:07 PM EDT Physical Therapy Treatment Discharge Recommendations for Safe Patient Transition PT Discharge Disposition Recommendation: Post acute - moderate PT Post Acute Moderate Rehab Needs: Recommend moderate intensity rehab, Tolerate 1-2 hrs of therapy3-5 days/wk, Subacute or chronic functional impairment 6 Clicks: Basic Mobility Turning from your back to your side while in a flat bed without using bed rails?: A little Moving from lying on your back to sitting on side of flat bed without using bed rails?: A little Moving to and from bed to a chair (including w/c)?: A lot Standing up from a chair using your arms (e.g. w/c or bedside chair)?: A lot To walk in hospital room?: A lot Climbing 3-5 steps with a railing?: Total Scoring 6 Clicks: Basic Mobility Raw Score: 13 CMS G Code Modifier: CK Assessment Patient Assessment Patient Response to Treatment: Slow progress, decreased activity tolerance Visit RN Communication: Yes Medical Record Reviewed: Yes PT Type of Visit: Treatment Precautions Activity: ok for therapy per RAJEEV Rios Equipment: gait belt, RW, chair alarm, external catheter Telemetry/Statistical Developer: Yes Oxygen Used: 3LO2 via NC Other: L side weakness, high fall risk, hx tourette's syndrome Pain Assessment Pain Assessment: No/denies pain 07/11/25 1558 LE Seated LE seated exercises performed? Yes Long arc quads x Seated marching x Hip abduction/adduction x Other verbal and visual cues for proper technique Repetitions 20x AROM BLE Bed Mobility Other: NT, pt found and left sitting up in bedside chair with light and tray near. Transfers Sit to Stand: Max assist (x2) Stand to Sit: Max assist (x2) Other: STS twice this PM, Max x2 plus assist for LUE support and hand placement on RW. Gait Base of Support: Wide Pattern: Decreased afsaneh, R Decreased heel strike, L Decreased heel strike, R Decreased foot clearance, L Decreased foot clearance, Forward trunk Gait Assistance: Max assist (x2) Assistive Device: Rolling walker (plus LUE support to maintain grasp) Gait Distance: 5' Limiting Factors to Gait: Fatigue, Weakness, Decreased safety Other: close chair follow, assist for weight-shifting. Balance Sitting Balance: Static: Fair Sitting Balance: Dynamic: Fair Standing Balance: Static: Poor Standing Balance: Dynamic: Poor Other: pt stood for approx. 3 minutes twice this PM Activity Tolerance Endurance: Tolerates >30 minutes activity with rest breaks Other: rest breaks as needed Plan Physical Therapy Care Plan Physical Therapy Care Plan (Active) Template: PT - Physical Therapy Problem: Activity Tolerance Dates: Start: 07/10/25 Disciplines: PT Goal: Tolerate > 30 minutes of activity WITH rest breaks Dates: Start: 07/10/25 Expected End: 07/29/25 Description: Goal Description: Patient to perform functional range / strength exercises to improve functional strength, balance and activity tolerance for improved independence and safety with mobility. Disciplines: PT Outcomes Date/Time User Outcome 07/11/25 1601 Sandeep Leigh PTA Progressing Goal Note filed on 07/11/25 160 by Sandeep Leigh PTA Evaluation of progress towards goal: Problem: Bed Mobility Dates: Start: 07/10/25 Disciplines: PT Goal: Patient will perform bed mobility with Minimum Assist Dates: Start: 07/10/25 Expected End: 07/29/25 Description: Goal Description: Disciplines: PT Problem: Gait Dates: Start: 07/10/25 Disciplines: PT Goal: Patient will perform gait with Minimum Assist Dates: Start: 07/10/25 Expected End: 07/29/25 Description: With__appropriate AD__,__100__feet Goal Description: Disciplines: PT Outcomes Date/Time User Outcome 07/11/25 1601 Sandeep Leigh PTA Progressing Goal Note filed on 07/11/25 1601 by Sandeep Leigh PTA Evaluation of progress towards goal: Problem: Sitting Balance Dates: Start: 07/10/25 Disciplines: PT Goal: Improve balance to good Dates: Start: 07/10/25 Expected End: 07/29/25 Description: Static Dynamic Disciplines: PT Outcomes Date/Time User Outcome 07/11/25 1601 Sandeep Leigh PTA Progressing Goal Note filed on 07/11/25 1601 by Sandeep Leigh PTA Evaluation of progress towards goal: Problem: Standing Balance Dates: Start: 07/10/25 Disciplines: PT Goal: Improve balance to fair Dates: Start: 07/10/25 Expected End: 07/29/25 Description: Improve standing balance to fair+ with UE support to minimize fall risk. Disciplines: PT Outcomes Date/Time User Outcome 07/11/25 1601 Sandeep Leigh PTA Progressing Goal Note filed on 07/11/25 1601 by Sandeep Leigh PTA Evaluation of progress towards goal: Problem: Strength Dates: Start: 07/10/25 Disciplines: PT Goal: Improve strength Dates: Start: 07/10/25 Expected End: 07/29/25 Description: Of extremity/ location: L U/LE to WFL To facilitate: Disciplines: PT Outcomes Date/Time User Outcome 07/11/25 1601 Sandeep Leigh PTA Progressing Goal Note filed on 07/11/25 1601 by Sandeep Leigh PTA Evaluation of progress towards goal: Problem: Transfers Dates: Start: 07/10/25 Disciplines: PT Goal: Patient will perform transfers with Minimum Assist Dates: Start: 07/10/25 Expected End: 07/29/25 Description: Goal Description: Patient to perform mobility with good safety awareness. Disciplines: PT Outcomes Date/Time User Outcome 07/11/25 1601 Sandeep Leigh PTA Progressing Goal Note filed on 07/11/25 1601 by Sandeep Leigh PTA Evaluation of progress towards goal: Physical Therapy Care Plan (Resolved) There are no resolved problems. Principal Problem: Stroke (cerebrum) ([facility]) Cosigned by Jodie Lincoln PT at 07/12/2025 7:15 AM EDT Associated attestation - Jodie Lincoln PT - 07/12/2025 7:15 AM EDT I have reviewed and agree with this note and education documentation for this visit. * Discharge Planning Note - Beba Schmidt - 07/11/2025 2:28 PM EDT DISCHARGE PLANNING NOTE Referral sent to [facility] (P#: ; F#: ) [facility] [place] (P# ; F# ) * Discharge Planning Note - Jaki Dubois RN - 07/11/2025 11:20 AM EDT Images from the original note were not included. Initial Discharge Planning Assessment Hooker Inspector met with pt at bedside, introduced self, explained role. Pt alert and oriented, able to participate in discharge planning. Pt states his sister and [id number] will be visiting later today. Initial Assessment Flowsheet Row Most Recent Value Patient Information Initial Pre-Hospitalization Assessment Completed? Completed Primary Caregiver Self Support System Family Members Discharge Planning Living Arrangements Family members [sister, son-in-law] Assistance Needed None Type of Residence Private residence Private Residence 1 story Can patient reside on one level? Yes Home Care Services No Community Agencies Currently Utilized None Community Referrals / Resources Provided Denies needs Who is the existing DME Provider? [employer] ([phone]) Does The Patient Have Existing Home DME? Yes Existing Home DME Options Oxygen, Nebulizer Will the patient need DME at discharge? No, the patient has no home DME needs currently Stressors Income Information IP Hunger/Food Insecurity Screening Within the past 12 months we worried whether our food would run out before we got money to buy more. Never True Within the past 12 months the food we bought just didn't last and we didn't have money to get more.Never True Hunger Screening Complete? Yes Pt. Eligible for Food / Voucher No Caregiver/Family Member Caregiver/Support System Limitations Patient/Caregiver Goals Patient/Caregiver Goals [facility] Sk[facility] Sk[facility] Care (Short Term) Community Provider Referral Community Provider Referral None Services Requested Patient expects to be discharged to: SNF Does the patient wish to have family/friend/caregiver involved in their discharge planning? Yes Does the patient plan to return home to a community setting? No, patient to discharge to facility-based provider. See Discharge Disposition Discharge Disposition SNF Who is the existing DME Provider? [employer] ([phone]) Does the patient need discharge transportation arranged? Yes Transportation Arranged Ambulance Mobility issues discussed with transportation provider Yes Patient choice offered Yes List Provided Yes [facility] List Provided [facility] Facility DC Planning Complete Discharge Milestones Yes 3-Midnight Is SNF the current discharge plan for this Traditional/Orignal Medicare patient? Yes Did The Patient Complete A 3 Midnight Qualifying Inpatient Stay? Yes Prior to admission patient was living with his sister (Cara) and [id number] (Dharmesh) and was fully independent/ self care. Medical equipment patient used prior to admission includes: nebulizer and oxygen (2L o2, continuous, supplied by [facility]). Pt states his only limitation to ADLs is getting eoygo-ry-soczjy and needing to take breaks with walking/activity. Patient denies need for transportation (he drives)/ food/ financial strain/ or prescription medication assistance resources. CN discussed discharge resources with patient, including discussing PT/OT recommendations for SNF. Pt agreeable, stating he is motivated to start rehab and get his strength back. CN reviewed SNF listwith pt; he requested referrals to [facility] and [facility]. He will review the list with his sister and discuss for more options/[id number]. CN tasked referrals to be sent. No insurance auth needed. PCP: KURT MANNING PCP and pharmacy confirmed with patient. He is able to schedule his own follow up appointment. KURT MANNING added to Follow Up Providers for Summary of Care communication. The patient receives support from his sister and [id number]. Goals: Goals Patient Stated Safe Discharge (pt-stated) Evaluation of progress towards goal: safe transition to SNF rehab for strengthening and rehab s/p stroke Will continue to follow as plan of care develops. Please feel free to reach out for any discharge planning questions. - Jaki Dubois RN 07/11/25 11:22 AM Addendum: CN check on SNF referrals. Both facilities are reviewing, no acceptance yet. - Jaki Dubois RN 07/11/25 3:27 PM Addendum: CN spoke with pt at bedside regarding SNF facilities. Pt stated he is okay with either facility in [place]. - Jaki Dubois RN 07/11/25 3:51 PM * Plan of Care - Chucho Branch RN - 07/11/2025 9:09 AM EDT Problem: Safety Goal: Patient will be injury free during hospitalization Description: INTERVENTIONS: 1. Assess patient's risk for falls and implement fall prevention plan of care per policy 2. Provide and maintain a safe environment 3. Proper use of double Identifiers 4. Medication administration using the 5 rights 5. Hand hygiene 6. Specimens are labeled at the bedside 7. Instruct patient/ patient commercial sales representative about use of safety devices 8. Include patient/ patient commercial sales representative in decisions related to safety Outcome: Progressing Note: Evaluation of progress towards goal: Patient safe and free from injury Problem: Neurological Deficit Goal: Neurological status is stable or improving Description: Patient's goal is: INTERVENTIONS 1. Complete Neurological assessment as indicated/ordered 2. Initiate measures to prevent increased intracranial pressure 3. Monitor and assess patient's level of consciousness, motor function, sensory function, and levelof assistance needed for ADLs 4. Monitor and report changes from baseline 5. Maintain blood pressure and fluid volume within ordered parameters to optimize cerebral perfusion and minimize risk of hemorrhage 6. Monitor labs and diagnostic tests 7. Administer anti-seizure medications as ordered 8. Maintain airway, patient safety and administer oxygen as ordered 9. Monitor patient for seizure activity, document and report duration and description of seizure toLIP 10. If seizure occurs, turn patient to side and suction secretions as needed 11. Reorient patient post seizure 12. Seizure pads on all 4 side rails 13. Instruct patient/family to notify RN of any seizure activity 14. Instruct patient/family to call for assistance with activity based on assessment 15. Utilize bleeding precautions if thrombolytic given Outcome: Progressing Note: Evaluation of progress towards goal: Patient will maintain or improve neurologic status Problem: Activity Intolerance/Impaired Mobility Goal: Mobility/activity is maintained at optimum level for patient Description: Patient's goal is: INTERVENTIONS 1. Assess and monitor patient barriers to mobility and need for assistive/adaptive devices 2. Assess patient's emotional response to limitations 3. Collaborate with interdisciplinary teams and initiate plans and interventions as ordered 4. Encourage independent activity per tolerance 5. Maintain proper body alignment 6. Perform active/passive ROM as tolerated/ordered 7. Coordinate activities to conserve energy 8. Reposition patient 9. Ensure adequate rest/sleep time Outcome: Progressing Note: Evaluation of progress towards goal: Patient attain activities of daily living with assistance or with patient physical mobility Problem: Potential for Compromised Skin Integrity Goal: Skin integrity is maintained or improved Description: Patient's goal is: INTERVENTIONS 1. Perform initial skin assessment on admission and as needed 2. Turn patient every 2 hours and PRN 3. Relieve pressure to bony prominences 4. Avoid shearing 5. Keep skin clean and dry 6. Alternate a full bath with partial baths for elderly 7. Apply lotion/moisturizer on skin 8. Monitor patient's hygiene practices 9. Float heels 10. Collaborate with interdisciplinary team and initiate plans and interventions as needed Outcome: Progressing Note: Evaluation of progress towards goal: Patient maintain skin integrity with no skin breakdown Problem: Potential for Inadequate Tissue Perfusion - Venous Goal: Tissue perfusion is adequate - venous Description: Patient's goal is: INTERVENTIONS 1. Assess and monitor skin color and temperature, skin integrity, pulses, capillary refill, edema, pain in extremities and Homans' sign 2. Monitor for signs and symptoms (dyspnea, tachypnea, and tachycardia) 3. Encourage ambulation/activity per patient's tolerance and physician order 4. Elevate feet when in chair 5. Encourage patient to do ankle pump exercises 6. Apply anti-embolism stockings/devices as ordered Outcome: Progressing Note: Evaluation of progress towards goal: Patient maintain adequate or normal oxygenation Problem: Inadequate Breathing Pattern Goal: Patient will achieve/maintain normal respiratory rate/effort Description: Patient's goal is: INTERVENTIONS 1. Assess and monitor respiratory rate, effort, breathing pattern, and oxygenation 2. Monitor patient for restlessness, anxiety, air hunger 3. Assess physical activity tolerance 4. Assess tobacco history; ask, advise, and refer as appropriate 5. Collaborate with interdisciplinary team and initiate plans/interventions as needed Outcome: Progressing Note: Evaluation of progress towards goal: Patient maintain adequate or normal oxygenation Problem: Moderate - High Risk Fall Score Description: Ceja Fall Score of =/> 25 or indicated by [facility] Assessment Goal: Patient should be free from fall Description: Interventions: 1. Alexander to environment 2. Hourly rounds addressing the 4 P's (Pain, Positioning, Possessions, Potty) 3. Clear area of hazards (spills, clutter, electrical cords, unnecessary equipment) 4. Place equipment (bed & TV controls, call light, phone, urinal) within reach 5. Encourage patient to wear glasses and hearing aides as appropriate 6. Maintain bed in lowest position 7. Lock wheels on bed/wheelchair 8. Provide adequate lighting, including night light 9. Assess need for additional bedding, food/fluids, pain med's prior to sleep/routinely 10. Provide gripper slippers or personal non-skid footwear 11. Teach patient and patient commercial sales representative to maintain environment for safety and engage in all aspects of fall prevention program 12. Remind patient to call for help before getting out of bed 13. Initiate bed/chair/exit alarms supportive devices as appropriate, (chair wedge, no-skid floor mat, raised edge mattress, hip protectors) 14. Locate patient bed assignment for optimal visualization 15. Evaluate and identify Safe Patient Handling Equipment needs 16. Provide supervision when out of bed or chair 17. Utilize gait belt as needed to assist with ambulation 18. Place adaptive equipment (cane, walker) within reach 19. Request patient commercial sales representative bring adaptive equipment/mobility aids from home or obtain and provide as needed 20. Consult pharmacy regarding effects of med's affecting mobility, cognition, and alternatives 21. Obtain physician order for PT if risk factors associated with mobility are present 22. Obtain physician order for OT as appropriate 23. Utilize diversional activities 24. Educate patient and patient commercial sales representative how to maintain a safe environment during visitationtimes (notify nurse prior to leaving bedside) 25. Consider appropriateness of medical or non-medical geneticist 26. Set up voiding schedule as appropriate (every 2 hours) Outcome: Progressing Note: Evaluation of progress towards goal: Patient is safe and free from fall * Plan of Care - Didi Perez RCP - 07/11/2025 8:53 AM EDT Problem: Inadequate Breathing Pattern Goal: Patient will achieve/maintain normal respiratory rate/effort Description: Patient's goal is: INTERVENTIONS 1. Assess and monitor respiratory rate, effort, breathing pattern, and oxygenation 2. Monitor patient for restlessness, anxiety, air hunger 3. Assess physical activity tolerance 4. Assess tobacco history; ask, advise, and refer as appropriate 5. Collaborate with interdisciplinary team and initiate plans/interventions as needed Outcome: Progressing Note: Evaluation of progress towards goal: Patient is progressing * PT/OT/WILDLIFE TECHNICIAN - Clemente Romeo, PT - 07/10/2025 12:00 PM EDT Physical Therapy Evaluation Discharge Recommendations for Safe Patient Transition PT Discharge Disposition Recommendation: Post acute - moderate PT Post Acute Moderate Rehab Needs: Recommend moderate intensity rehab, Tolerate 1-2 hrs of therapy3-5 days/wk, Subacute or chronic functional impairment Current Impairments Informing Therapy Recommendation: Ambulation status/safety, Fall risk, ADL status, Endurance level Modified Herbert Level of Disability: Severe disability 0= No symptom at all 1= No significant disability despite symptoms: able to carry out all usual duties and activities 2= Slight disability: unable to carry out all previous activities, but able to look after own affairs without assistance 3= Moderate disability: requiring some help, but able to walk without assistance 4= Moderately severe disability: unable to walk without assistance and unable to attend to own bodily needs without assistance 5- Severe disability: bedridden, incontinent and requiring constant nursing care and attention. 6= 6 Clicks: Basic Mobility Turning from your back to your side while in a flat bed without using bed rails?: A little Moving from lying on your back to sitting on side of flat bed without using bed rails?: A little Moving to and from bed to a chair (including w/c)?: Total Standing up from a chair using your arms (e.g. w/c or bedside chair)?: A lot To walk in hospital room?: Total Climbing 3-5 steps with a railing?: Total Scoring 6 Clicks: Basic Mobility Raw Score: 11 [facility] G Code Modifier: CL Therapy Plan Need for skilled Physical Therapy to address deficits in functional mobility due to a status decline resulting from admission 07/07 to OSH with c/o SOB and inability to get up. At OSH ED patient presented with L side deficits and R gaze preference CTH was unremarkable. CTA showed R ICA in-stent stenosis and possible baslilar stenosis Transfer to 07/08 VFSS regular / thin 07/09 CTP: asymmetric decreased perfusion in right greater than left temporal lobe region. MRI brain: acute to subacute right frontal and parietal cortical ischemia with small region of the right parietal petechial hemorrhagic transformation. PMH significant for right ICA stenosis s/p stent May 2020. PT Treatment/Interventions: ADL retraining, Functional transfer training, LE strengthening/ROM, Endurance training, Cognitive reorientation, Patient/family training, Equipment eval/education, Balance, Bed mobility, Gait training, Functional activities, Neuromuscular reeducation PT Frequency: 4-5days/week PT Duration: LOS Past Medical History: Diagnosis Date [place] obstructive [place] [place] [place] Emphy[place] [place] [place]/07/2025 Past Surgical History: Procedure Laterality Date Diagnostic cerebral angiogram with JAYANT stent placement with embolic protection device N/A 06/12/2020 Performed by Andrew Terrell MD at [facility] CARDIAC CATH LABS THROAT SURGERY TONSILLECTOMY Assessment Patient Assessment Therapy Problem List: Decreased ADL status, Decreased balance, Decreased endurance, Decreased high-level ADLs, Decreased mobility, Decreased safe judgement during ADL, Decreased LE strength, Decreased UE strength Patient Response to Treatment: Tolerated evaluation without adverse reaction, Slow progress, medical status limitations Mood/Affect: Appropriate for circumstances Rehab Prognosis: Good, With continued PT status post acute discharge Visit RN Communication: Yes Medical Record Reviewed: Yes PT Type of Visit: Evaluation Precautions Activity: early mobility / pass - okay per RN for therapy evaluation Equipment: IV, maxi miguel with repositioning sling, chair alarm, external catheter Telemetry/Statistical Developer: Yes Oxygen Used: 3L O2 per NC Other: L side weakness, high fall risk, hx tourette's syndrome Pain Assessment Pain Assessment: No/denies pain Home Living Type of Home: Mobile home Home Layout: One level Stairs to Enter: 4 Hand Rails: Left Bathroom Shower/Tub: Tub/shower unit Bathroom Toilet: Standard (wall support near) Bathroom Equipment: Hand-held shower Home Equipment: Other (Comment) (walking stick for community distance) Prior Function Lives With: Sister (sister / [id number]) Receives Help From: Family Level of Mobility: Independent with ADLs and functional transfers or gait Homemaking Assistance: Needs assistance Driving: Independent Other: shared household IADLs Vocational: Retired ADL / IADL Hand Dominance: Right Hearing / Speech / Vision Hearing: Within Functional Limits Speech: (limited by COPD exacerbatin) Current Vision: No visual deficits Cognition Overall Cognitive Status: Within Functional Limits Orientation Level: Oriented X4 Sensation Overall Sensation Status: Exceptions to Within Functional Limits (diminished sensation L side) Bed Mobility Supine to Sit: Mod assist, Right, Verbal cues Sit to Supine: Max assist (2-person assist) Other: Assist for lower body to sit EOB, able to elevate trunk without physical assist. Patient required 2-person assist to return to supine due to breathing difficulties Transfers Other: unable to assess due to poor activity tolerance Gait Other: unable to assess due to poor activity tolerance Balance Sitting Balance: Static: Fair Sitting Balance: Dynamic: Fair LUE Assessment: (see OT eval) RLE Assessment: Within Functional Limits LLE Assessment: Exceptions to WFL LLE Strength LLE Overall Strength: Deficits (3/5 throughout) Activity Tolerance Endurance: Tolerates <30 minutes activity WITHOUT vital sign changes Post-Activity SpO2: 88 % Plan Physical Therapy Care Plan Physical Therapy Care Plan (Active) Template: PT - Physical Therapy Problem: Activity Tolerance Dates: Start: 07/10/25 Disciplines: PT Goal: Tolerate > 30 minutes of activity WITH rest breaks Dates: Start: 07/10/25 Expected End: 07/29/25 Description: Goal Description: Patient to perform functional range / strength exercises to improve functional strength, balance and activity tolerance for improved independence and safety with mobility. Disciplines: PT Problem: Bed Mobility Dates: Start: 07/10/25 Disciplines: PT Goal: Patient will perform bed mobility with Minimum Assist Dates: Start: 07/10/25 Expected End: 07/29/25 Description: Goal Description: Disciplines: PT Problem: Gait Dates: Start: 07/10/25 Disciplines: PT Goal: Patient will perform gait with Minimum Assist Dates: Start: 07/10/25 Expected End: 07/29/25 Description: With__appropriate AD__,__100__feet Goal Description: Disciplines: PT Problem: Sitting Balance Dates: Start: 07/10/25 Disciplines: PT Goal: Improve balance to good Dates: Start: 07/10/25 Expected End: 07/29/25 Description: Static Dynamic Disciplines: PT Problem: Standing Balance Dates: Start: 07/10/25 Disciplines: PT Goal: Improve balance to fair Dates: Start: 07/10/25 Expected End: 07/29/25 Description: Improve standing balance to fair+ with UE support to minimize fall risk. Disciplines: PT Problem: Strength Dates: Start: 07/10/25 Disciplines: PT Goal: Improve strength Dates: Start: 07/10/25 Expected End: 07/29/25 Description: Of extremity/ location: L U/LE to WFL To facilitate: Disciplines: PT Problem: Transfers Dates: Start: 07/10/25 Disciplines: PT Goal: Patient will perform transfers with Minimum Assist Dates: Start: 07/10/25 Expected End: 07/29/25 Description: Goal Description: Patient to perform mobility with good safety awareness. Disciplines: PT Physical Therapy Care Plan (Resolved) There are no resolved problems. Principal Problem: Stroke (cerebrum) ([facility] * PT/OT/WILDLIFE TECHNICIAN - Yasmeen Oliveros OTR/Chloe - 07/10/2025 11:54 AM EDT Occupational Therapy Evaluation, Treatment Discharge Recommendations for Safe Patient Transition OT Discharge Disposition Recommendation: Post acute - moderate OT Post Acute Moderate Rehab Needs: Recommend moderate intensity rehab, Tolerate 1-2 hrs of therapy3-5 days/wk, Subacute or chronic functional impairment, Other (see comments) Current Impairments Informing Therapy Recommendation: Ambulation status/safety, Fall risk, ADL status, Endurance level, Other (see comments) (left side hemiparesis.) Modified Herbert Level of Disability: Severe disability 0= No symptom at all 1= No significant disability despite symptoms: able to carry out all usual duties and activities 2= Slight disability: unable to carry out all previous activities, but able to look after own affairs without assistance 3= Moderate disability: requiring some help, but able to walk without assistance 4= Moderately severe disability: unable to walk without assistance and unable to attend to own bodily needs without assistance 5- Severe disability: bedridden, incontinent and requiring constant nursing care and attention. 6= 6 Clicks: Daily Activity Putting on and taking off regular lower body clothing?: A lot Bathing (including washing, rinsing, drying)?: A lot Toileting, which includes using toilet, bedpan or urinal?: A lot Putting on and taking off regular upper body clothing?: A lot Taking care of personal grooming such as brushing teeth?: A lot Eating meals?: A little Scoring Daily Activity Raw Score: 13 CMS G Code Modifier: CL Modified becky index; 11/11 Occupational Profile Patient is a 65 year old male admitted 07-07 with left side deficits and right gaze preference withshortness of breath. Initial CT head; unremarkable. Vessel imaging showed right ICA in-stent stenosis and possible basilar stenosis. CTP: asymmetric decreased perfusion in right greater than left temporal lobe region. Patient has history of right ICA stenosis s/p stent May 2020. Impression: left hemiparesis and right gaze preference possibly secondary to ICA in stent thrombosis versus basilar stenosis. Crit care consult due to COPD exacerbation. MRI brain: acute to subacute right frontal and parietal cortical ischemia with small region of the right parietal petechial hemorrhagic transformation. Speech: regular diet, thin liquid. Patient underwent cerebral angio 07-09-2025 and right internal carotid artery angioplasty Therapy Plan Need for skilled Occupational Therapy to address deficits in ADL independence and functional mobility due to a status decline resulting from rule out stroke Recommended Consults: PM&R consult OT Treatment/Interventions: ADL retraining, UE strengthening/ROM, Cognitive reorientation, Balance,Bed mobility, Functional transfer training, Patient/family training, Home management, Gait training, Neuromuscular reeducation, Functional activities OT Frequency: 4-5days/week OT Duration: 08-06-2025 Assessment Patient Assessment Therapy Problem List: Decreased ADL status, Decreased balance, Decreased cognition, Decreased endurance, Decreased high-level ADLs, Decreased mobility, Decreased self-care trans, Decreased sensation,Decreased UE strength, Decreased LE strength, Non-functional LUE, Non-functional LLE Patient Response to Treatment: Slow progress, decreased activity tolerance Mood/Affect: Appropriate for circumstances Rehab Prognosis: Good, With continued OT status post acute discharge, Patient remains in ICU/critical care Visit RN Communication: Yes Medical Record Reviewed: Yes OT Type of Visit: Evaluation, Treatment Precautions Activity: advance activity as tolerated per early mobility guidelines. Equipment: telemetry, IV, 3 liters oxygen, maxi miguel, chair alarm, external cath. Telemetry/Statistical Developer: Yes Oxygen Used: 3 liters oxygen. Other: (S) left side weakness, fall risk, history of COPD/emphysema with activity limitations. History of tourette syndrome per report Pain Assessment Pain Assessment: No/denies pain Home Living Type of Home: Mobile home Home Layout: One level, Performs ADLs on one level, Able to live on main level with bedroom/bathroom Stairs to Enter: 4 in with left rail Hand Rails: Left Bathroom Shower/Tub: Tub/shower unit Bathroom Toilet: Standard (wall support near.) Bathroom Equipment: Hand-held shower Home Equipment: Other (Comment) (walking stick) Prior Function Lives With: Sister, Other (Comment) (brother in-law.) Level of Mobility: (uses walking stick for longer distances.) Homemaking Assistance: (family does household tasks.) Vocational: Retired Other: patient drives, does his own ADL tasks. Uses a walking stick for longer distances. ADL / IADL Hand Dominance: Right Where Assessed: Supine, bed, Edge of bed, Chair (patient left up in chair with call light in reach and chair alarm on. RNJulianne.) Eating Assistance: Min assist Grooming Assistance: Max assist Bathing/Showering Assistance: Max assist Toilet/Commode Assistance: Max assist UE Dressing Assistance: Max assist LE Dressing Assistance: Max assist Footwear Assistance: Max assist Other: ADL levels based on clinical presetation and writers clinical judgement. Patient has hitory of COPD and emphysema. Patient is on 3 liters oxygen. Labored breathing and dizziness with increasedactivity. Home Management - IADL Other: ADL levels based on clinical presetation and writers clinical judgement. Patient has hitory of COPD and emphysema. Patient is on 3 liters oxygen. Labored breathing and dizziness with increasedactivity. Hearing / Speech / Vision Hearing: Within Functional Limits Speech: Other (Comment) (labored breathing due to COPD and emphysema.) Current Vision: No visual deficits Cognition Overall Cognitive Status: Within Functional Limits Sensation Overall Sensation Status: (slightly decreased left side.) Bed Mobility Supine to Sit: Mod assist, Verbal cues Sit to Supine: Max assist, Verbal cues (max assist of two.) Transfers Other: unable to achieve sit to stand due to poor activity tolerance. Patient with history of COPD and emphysema. Gait Gait Distance: Patient was able to move sup to sit with mod assist. Patient was not able to tolerate static standing due to left side hemiparesis as well as poor activity tolerance due to emphysema and COPD. On 3 liters of oxygen. Moved back to bed with max assist of 2 for maxi miguel transfer from bed to chair. Poor static sitting balance. Balance Sitting Balance: Static: Poor Sitting Balance: Dynamic: Poor RUE Assessment: Within Functional Limits LUE Assessment: (0/5 strength left upper extremity.) Activity Tolerance Endurance: Tolerates <30 minutes activity WITHOUT vital sign changes Other: poor activity tolerance due to COPD and emphysema. Patient was dizzy with sup to sit with labored breathing. RN, Julianne aware. Plan Occupational Therapy Care Plan Occupational Therapy Care Plan (Active) Template: OT - Occupational Therapy Problem: Activity Tolerance Dates: Start: 07/10/25 Disciplines: OT Goal: Tolerate 30 minutes of activity WITH rest breaks Dates: Start: 07/10/25 Expected End: 08/07/25 Description: Goal Description: Disciplines: OT Problem: Bathing LB Dates: Start: 07/10/25 Disciplines: OT Goal: Patient will perform bathing LB with Minimum Assist Dates: Start: 07/10/25 Expected End: 08/07/25 Description: Goal Description: Disciplines: OT Problem: Bathing UB Dates: Start: 07/10/25 Disciplines: OT Goal: Patient will perform bathing UB with Minimum Assist Dates: Start: 07/10/25 Expected End: 08/07/25 Description: Goal Description: Disciplines: OT Problem: Bed Mobility Dates: Start: 07/10/25 Disciplines: OT Goal: Patient will perform bed mobility with Minimum Assist Dates: Start: 07/10/25 Expected End: 08/07/25 Description: Goal Description: Disciplines: OT Problem: Dressing LB Dates: Start: 07/10/25 Disciplines: OT Goal: Patient will perform dressing LB with Minimum Assist Dates: Start: 07/10/25 Expected End: 08/07/25 Description: Goal Description: Disciplines: OT Problem: Dressing UB Dates: Start: 07/10/25 Disciplines: OT Goal: Patient will perform dressing UB with Minimum Assist Dates: Start: 07/10/25 Expected End: 08/07/25 Description: Goal Description: Disciplines: OT Problem: Grooming Dates: Start: 07/10/25 Disciplines: OT Goal: Patient will perform grooming with Minimum Assist Dates: Start: 07/10/25 Expected End: 08/07/25 Description: Goal Description: Disciplines: OT Problem: ROM Dates: Start: 07/10/25 Disciplines: OT Goal: Improve ROM Dates: Start: 07/10/25 Expected End: 08/07/25 Description: Improve left upper extremity to any functional/ active range of motion. Disciplines: OT Problem: Sitting Balance Dates: Start: 07/10/25 Disciplines: OT Goal: Improve balance to good Dates: Start: 07/10/25 Expected End: 08/07/25 Description: Good static balance. Disciplines: OT Problem: Standing Balance Dates: Start: 07/10/25 Disciplines: OT Goal: Improve balance to good Dates: Start: 07/10/25 Expected End: 08/07/25 Description: Good static balance. Disciplines: OT Problem: Transfers Dates: Start: 07/10/25 Disciplines: OT Goal: Patient will perform transfers with Minimum Assist Dates: Start: 07/10/25 Expected End: 08/07/25 Description: As able and patient tolerates. Disciplines: OT Occupational Therapy Care Plan (Resolved) There are no resolved problems. Principal Problem: [place]um[place] [place] * Plan of Care - Steven Sheikh RCP - 07/10/2025 11:48 AM EDT Problem: Inadequate Breathing Pattern Goal: Patient will achieve/maintain normal respiratory rate/effort Description: Patient's goal is: INTERVENTIONS 1. Assess and monitor respiratory rate, effort, breathing pattern, and oxygenation 2. Monitor patient for restlessness, anxiety, air hunger 3. Assess physical activity tolerance 4. Assess tobacco history; ask, advise, and refer as appropriate 5. Collaborate with interdisciplinary team and initiate plans/interventions as needed Outcome: Progressing Note: Respiratory Therapy Clinical Practice Guidelines Consult Clinical Practice Guidelines Ordered Consult Assessment: Consult, Bronchodilator Bronchodilator Indications: Home regimen Bronchodilator Total: 2 Respiratory Assessment Assessment Type: Post-treatment Level of Consciousness: Alert Respiratory Pattern: Regular Chest Assessment: Chest expansion symmetrical Bilateral Breath Sounds: Diminished, Expiratory wheezes Patient Active Problem List Diagnosis Internal carotid artery stenosis, right [place]rebral [place]) [place] [place] Mixed hyperlipidemia Smoker St[place]re[place]um) [place] [place] Last Chest XRAY: Reviewed Pulmonary History: RT Reassessment Due In: 12 hours Bronchodilator Respiratory Rate Home Therapy: Patient baseline Dyspnea Home Therapy: Patient Baseline Breath Sounds Home Therapy: Patient Baseline Respiratory History Home Therapy: Requires home therapy Oxygen to Keep SpO2 Greater Than Or Equal To 92% Home Therapy: Patient Baseline Peak Flow ([facility] Only) Home Therapy: Not Applicable Patients Current Level & Intervention: Home Therapy As at home, reconcile orders with home medsif pulmonary status is stable Evaluation of progress towards goal: Reviewed * Plan of Care - Julianne Lopes RN - 07/10/2025 7:18 AM EDT Problem: Pain Goal: Patient goal is pain score less than 4, able to rest, and participant in treatment plan as appropriate Description: INTERVENTIONS: 1. Encourage patient or legal commercial sales representative to report early pain and ask for pain medicine when needed 2. Assess pain using appropriate pain scale and include the scale used when documenting 3. Administer analgesics based on type and severity of pain and evaluate response within appropriate time frame 4. Implement non-pharmacological measures as appropriate and evaluate response 5. Consider cultural and social influences on pain and pain management 6. Notify LIP if interventions ineffective or patient reports new pain 7. Monitor vital signs including pulse ox, end-tidal CO2 based on pain intervention 8. Reassess pain per policy 9. Teach patient or legal commercial sales representative interventions for comforting Outcome: Progressing Note: Evaluation of progress towards goal: Patient currently denies pain. Patient encouraged to communicate with staff if pain occurs. Will continue to monitor for changes. Problem: Safety Goal: Patient will be injury free during hospitalization Description: INTERVENTIONS: 1. Assess patient's risk for falls and implement fall prevention plan of care per policy 2. Provide and maintain a safe environment 3. Proper use of double Identifiers 4. Medication administration using the 5 rights 5. Hand hygiene 6. Specimens are labeled at the bedside 7. Instruct patient/ patient commercial sales representative about use of safety devices 8. Include patient/ patient commercial sales representative in decisions related to safety Outcome: Progressing Note: Evaluation of progress towards goal: Safe environment maintained. Medications administered using 5 rights. Fall prevention plan implemented as needed. Problem: Infection Goal: Absence of infection during hospitalization Description: INTERVENTIONS 1. Assess and monitor for signs and symptoms of infection. 2. Monitor lab/diagnostic results. 3. Monitor all insertion sites i.e., indwelling lines, tubes and drains. 4. Monitor endotracheal (as able) and nasal secretions for changes in amount and color. 5. Administer medications as ordered. 6. Instruct and encourage patient and family to use good hand hygiene technique. 7. Identify and instruct patient/patient commercial sales representative in use of appropriate isolation precautionsfor identified infection/symptoms. 8. Provide and discuss with patient/patient commercial sales representative on educational MDRO sheet. 9. Encourage and monitor nutritional status daily and consult aviation maintenance technician if indicated. 10. Implement neutropenic guidelines as needed. Outcome: Progressing Note: Evaluation of progress towards goal: Labs and vitals monitored as ordered. Medications administered as ordered. Patient remains free from infection at this time. Problem: Moderate - High Risk Fall Score Description: Ceja Fall Score of =/> 25 or indicated by [facility] Assessment Goal: Patient should be free from fall Description: Interventions: 1. Alexander to environment 2. Hourly rounds addressing the 4 P's (Pain, Positioning, Possessions, Potty) 3. Clear area of hazards (spills, clutter, electrical cords, unnecessary equipment) 4. Place equipment (bed & TV controls, call light, phone, urinal) within reach 5. Encourage patient to wear glasses and hearing aides as appropriate 6. Maintain bed in lowest position 7. Lock wheels on bed/wheelchair 8. Provide adequate lighting, including night light 9. Assess need for additional bedding, food/fluids, pain med's prior to sleep/routinely 10. Provide gripper slippers or personal non-skid footwear 11. Teach patient and patient commercial sales representative to maintain environment for safety and engage in all aspects of fall prevention program 12. Remind patient to call for help before getting out of bed 13. Initiate bed/chair/exit alarms supportive devices as appropriate, (chair wedge, no-skid floor mat, raised edge mattress, hip protectors) 14. Locate patient bed assignment for optimal visualization 15. Evaluate and identify Safe Patient Handling Equipment needs 16. Provide supervision when out of bed or chair 17. Utilize gait belt as needed to assist with ambulation 18. Place adaptive equipment (cane, walker) within reach 19. Request patient commercial sales representative bring adaptive equipment/mobility aids from home or obtain and provide as needed 20. Consult pharmacy regarding effects of med's affecting mobility, cognition, and alternatives 21. Obtain physician order for PT if risk factors associated with mobility are present 22. Obtain physician order for OT as appropriate 23. Utilize diversional activities 24. Educate patient and patient commercial sales representative how to maintain a safe environment during visitationtimes (notify nurse prior to leaving bedside) 25. Consider appropriateness of medical or non-medical geneticist 26. Set up voiding schedule as appropriate (every 2 hours) Outcome: Progressing Note: Evaluation of progress towards goal: Fall risk assessment preformed and safety measures in place. Education given to family/patient. Will continue to monitor. * Plan of Care - Deepthi Perez RCP - 07/09/2025 7:14 PM EDT Problem: Inadequate Breathing Pattern Goal: Patient will achieve/maintain normal respiratory rate/effort Description: Patient's goal is: INTERVENTIONS 1. Assess and monitor respiratory rate, effort, breathing pattern, and oxygenation 2. Monitor patient for restlessness, anxiety, air hunger 3. Assess physical activity tolerance 4. Assess tobacco history; ask, advise, and refer as appropriate 5. Collaborate with interdisciplinary team and initiate plans/interventions as needed Note: Evaluation of progress towards goal: Respiratory Therapy Clinical Practice Guidelines Consult Clinical Practice Guidelines Ordered Consult Assessment: Consult, Bronchodilator Bronchodilator Indications: Bronchospasm/wheezing Bronchodilator Total: 3 Vital Signs Pulse: 111 Heart Rate Source: Monitor, Pulse Ox Resp: (!) 29 SpO2: 93 % O2 Device: Nasal cannula O2 Flow Rate (L/min): 3 L/min Respiratory Assessment Assessment Type: Pre-treatment Level of Consciousness: Alert Chest Assessment: Chest expansion symmetrical Bilateral Breath Sounds: Diminished, Inspiratory wheezes, Expiratory wheezes Patient Active Problem List Diagnosis Internal carotid artery stenosis, [place]re[place] [place] Mixed hyperlipidemia Smoker [place]re[place]um) [place] [place] Last Chest XRAY: Reviewed Pulmonary History: reviewed RT Reassessment Due In: 12 hours Bronchodilator Respiratory Rate Level 3: 20-25 Dyspnea Level 3: Dyspnea on exertion or periodic stated SOB Breath Sounds Level 3: Expiratory wheezing or cough Respiratory History Level 4: Diagnosis of pulmonary disease such as: Asthma/reactive airway disease; Bronchitis/Emphysema (COPD) ; Cystic Fibrosis ; Severe Laryngitis/Tracheitis/Bronchiectasis ; Microbial infection ; Anesthesia related bronchospasms Oxygen to Keep SpO2 Greater Than Or Equal To 92% Level 2: 1-3 LPM 25%-35% or NIV 41 - 50% Peak Flow ([facility] Only) Home Therapy: Not Applicable Patients Current Level & Intervention: 3 Four times daily and Q4 PRN as needed for wheezing * Plan of Care - Partha Nance RN - 07/09/2025 6:56 PM EDT Problem: Pain Goal: Patient goal is pain score less than 4, able to rest, and participant in treatment plan as appropriate Description: INTERVENTIONS: 1. Encourage patient or legal commercial sales representative to report early pain and ask for pain medicine when needed 2. Assess pain using appropriate pain scale and include the scale used when documenting 3. Administer analgesics based on type and severity of pain and evaluate response within appropriate time frame 4. Implement non-pharmacological measures as appropriate and evaluate response 5. Consider cultural and social influences on pain and pain management 6. Notify LIP if interventions ineffective or patient reports new pain 7. Monitor vital signs including pulse ox, end-tidal CO2 based on pain intervention 8. Reassess pain per policy 9. Teach patient or legal commercial sales representative interventions for comforting Outcome: Progressing Note: Evaluation of progress towards goal: Patient currently denies pain. Patient encouraged to communicate with staff if pain occurs. Will continue to monitor for changes. Problem: Safety Goal: Patient will be injury free during hospitalization Description: INTERVENTIONS: 1. Assess patient's risk for falls and implement fall prevention plan of care per policy 2. Provide and maintain a safe environment 3. Proper use of double Identifiers 4. Medication administration using the 5 rights 5. Hand hygiene 6. Specimens are labeled at the bedside 7. Instruct patient/ patient commercial sales representative about use of safety devices 8. Include patient/ patient commercial sales representative in decisions related to safety Outcome: Progressing Note: Evaluation of progress towards goal: Safe environment maintained. Medications administered using 5 rights. Fall prevention plan implemented as needed. Problem: Infection Goal: Absence of infection during hospitalization Description: INTERVENTIONS 1. Assess and monitor for signs and symptoms of infection. 2. Monitor lab/diagnostic results. 3. Monitor all insertion sites i.e., indwelling lines, tubes and drains. 4. Monitor endotracheal (as able) and nasal secretions for changes in amount and color. 5. Administer medications as ordered. 6. Instruct and encourage patient and family to use good hand hygiene technique. 7. Identify and instruct patient/patient commercial sales representative in use of appropriate isolation precautionsfor identified infection/symptoms. 8. Provide and discuss with patient/patient commercial sales representative on educational MDRO sheet. 9. Encourage and monitor nutritional status daily and consult aviation maintenance technician if indicated. 10. Implement neutropenic guidelines as needed. Outcome: Progressing Note: Evaluation of progress towards goal: Labs and vitals monitored as ordered. Medications administered as ordered. Patient remains free from infection at this time. Problem: Moderate - High Risk Fall Score Description: Ceja Fall Score of =/> 25 or indicated by [facility] Assessment Goal: Patient should be free from fall Description: Interventions: 1. Alexander to environment 2. Hourly rounds addressing the 4 P's (Pain, Positioning, Possessions, Potty) 3. Clear area of hazards (spills, clutter, electrical cords, unnecessary equipment) 4. Place equipment (bed & TV controls, call light, phone, urinal) within reach 5. Encourage patient to wear glasses and hearing aides as appropriate 6. Maintain bed in lowest position 7. Lock wheels on bed/wheelchair 8. Provide adequate lighting, including night light 9. Assess need for additional bedding, food/fluids, pain med's prior to sleep/routinely 10. Provide gripper slippers or personal non-skid footwear 11. Teach patient and patient commercial sales representative to maintain environment for safety and engage in all aspects of fall prevention program 12. Remind patient to call for help before getting out of bed 13. Initiate bed/chair/exit alarms supportive devices as appropriate, (chair wedge, no-skid floor mat, raised edge mattress, hip protectors) 14. Locate patient bed assignment for optimal visualization 15. Evaluate and identify Safe Patient Handling Equipment needs 16. Provide supervision when out of bed or chair 17. Utilize gait belt as needed to assist with ambulation 18. Place adaptive equipment (cane, walker) within reach 19. Request patient commercial sales representative bring adaptive equipment/mobility aids from home or obtain and provide as needed 20. Consult pharmacy regarding effects of med's affecting mobility, cognition, and alternatives 21. Obtain physician order for PT if risk factors associated with mobility are present 22. Obtain physician order for OT as appropriate 23. Utilize diversional activities 24. Educate patient and patient commercial sales representative how to maintain a safe environment during visitationtimes (notify nurse prior to leaving bedside) 25. Consider appropriateness of medical or non-medical geneticist 26. Set up voiding schedule as appropriate (every 2 hours) Outcome: Progressing Note: Evaluation of progress towards goal: Fall risk assessment preformed and safety measures in place. Education given to family/patient. Will continue to monitor. * PT/OT/WILDLIFE TECHNICIAN - Susan Moran PT - 07/09/2025 12:27 PM EDT Physical Therapy PT Type of Visit: Medical deferral Reason For Medical Deferral: Off unit Off Unit: (Cath) * Pre-Procedure Note - Rosibel Zhang MD - 07/09/2025 11:33 AM EDT H/P done less than 30 days ago, updates/revisions as follows: Here for follow-up diagnostic cerebral angiogram and possible right ICA stenting for symptomatic right ICA stenosis PMHx significant for previous right ICA stenting Exam: My neurological exam is left arm weakness with no movement against gravity. Gaze preference Imaging review and agree with interpretation. Consent in the chart. All questions were answered. Relevant labs: Creatinine 0.86 Pt is on ASA and Brilinta. Rosibel Zhang MD Neuro IR Fellow * Plan of Care - Jean Paul Castillo RCP - 07/09/2025 7:40 AM EDT Problem: Inadequate Breathing Pattern Goal: Patient will achieve/maintain normal respiratory rate/effort Description: Patient's goal is: INTERVENTIONS 1. Assess and monitor respiratory rate, effort, breathing pattern, and oxygenation 2. Monitor patient for restlessness, anxiety, air hunger 3. Assess physical activity tolerance 4. Assess tobacco history; ask, advise, and refer as appropriate 5. Collaborate with interdisciplinary team and initiate plans/interventions as needed Outcome: Progressing Note: Evaluation of progress towards goal: Patient stable on 3L/min nasal cannula. Bronchodilators continued Respiratory Therapy Clinical Practice Guidelines Consult Vital Signs Pulse: 85 Resp: 14 SpO2: 94 % O2 Device: Nasal cannula O2 Flow Rate (L/min): 3 L/min Patient Position: Semi-fowlers Respiratory Assessment Assessment Type: Pre-treatment Level of Consciousness: Alert Respiratory Pattern: Regular Chest Assessment: Chest expansion symmetrical Bilateral Breath Sounds: Expiratory wheezes Patient Active Problem List Diagnosis Internal carotid artery stenosis, [place] [place]lipidemia [place] St[place] [place] Last Chest XRAY: Reviewed Pulmonary History: See above RT Reassessment Due In: 12 hours Bronchodilator Respiratory Rate Level 1: Less than 20 Dyspnea Level 3: Dyspnea on exertion or periodic stated SOB Breath Sounds Level 3: Expiratory wheezing or cough Respiratory History Level 4: Diagnosis of pulmonary disease such as: Asthma/reactive airway disease; Bronchitis/Emphysema (COPD) ; Cystic Fibrosis ; Severe Laryngitis/Tracheitis/Bronchiectasis ; Microbial infection ; Anesthesia related bronchospasms Oxygen to Keep SpO2 Greater Than Or Equal To 92% Level 2: 1-3 LPM 25%-35% or NIV 41 - 50% Peak Flow ([facility] Only) Patients Current Level & Intervention: 3 Four times daily and Q4 PRN as needed for wheezing * Plan of Care - Julianne Lopes RN - 07/09/2025 7:29 AM EDT Problem: Pain Goal: Patient goal is pain score less than 4, able to rest, and participant in treatment plan as appropriate Description: INTERVENTIONS: 1. Encourage patient or legal commercial sales representative to report early pain and ask for pain medicine when needed 2. Assess pain using appropriate pain scale and include the scale used when documenting 3. Administer analgesics based on type and severity of pain and evaluate response within appropriate time frame 4. Implement non-pharmacological measures as appropriate and evaluate response 5. Consider cultural and social influences on pain and pain management 6. Notify LIP if interventions ineffective or patient reports new pain 7. Monitor vital signs including pulse ox, end-tidal CO2 based on pain intervention 8. Reassess pain per policy 9. Teach patient or legal commercial sales representative interventions for comforting Outcome: Progressing Note: Evaluation of progress towards goal: Patient currently denies pain. Patient encouraged to communicate with staff if pain occurs. Will continue to monitor for changes. Problem: Safety Goal: Patient will be injury free during hospitalization Description: INTERVENTIONS: 1. Assess patient's risk for falls and implement fall prevention plan of care per policy 2. Provide and maintain a safe environment 3. Proper use of double Identifiers 4. Medication administration using the 5 rights 5. Hand hygiene 6. Specimens are labeled at the bedside 7. Instruct patient/ patient commercial sales representative about use of safety devices 8. Include patient/ patient commercial sales representative in decisions related to safety Outcome: Progressing Note: Evaluation of progress towards goal: Safe environment maintained. Medications administered using 5 rights. Fall prevention plan implemented as needed. Problem: Infection Goal: Absence of infection during hospitalization Description: INTERVENTIONS 1. Assess and monitor for signs and symptoms of infection. 2. Monitor lab/diagnostic results. 3. Monitor all insertion sites i.e., indwelling lines, tubes and drains. 4. Monitor endotracheal (as able) and nasal secretions for changes in amount and color. 5. Administer medications as ordered. 6. Instruct and encourage patient and family to use good hand hygiene technique. 7. Identify and instruct patient/patient commercial sales representative in use of appropriate isolation precautionsfor identified infection/symptoms. 8. Provide and discuss with patient/patient commercial sales representative on educational MDRO sheet. 9. Encourage and monitor nutritional status daily and consult aviation maintenance technician if indicated. 10. Implement neutropenic guidelines as needed. Outcome: Progressing Note: Evaluation of progress towards goal: Labs and vitals monitored as ordered. Medications administered as ordered. Patient remains free from infection at this time. Problem: Moderate - High Risk Fall Score Description: Ceja Fall Score of =/> 25 or indicated by [facility] Assessment Goal: Patient should be free from fall Description: Interventions: 1. Alexander to environment 2. Hourly rounds addressing the 4 P's (Pain, Positioning, Possessions, Potty) 3. Clear area of hazards (spills, clutter, electrical cords, unnecessary equipment) 4. Place equipment (bed & TV controls, call light, phone, urinal) within reach 5. Encourage patient to wear glasses and hearing aides as appropriate 6. Maintain bed in lowest position 7. Lock wheels on bed/wheelchair 8. Provide adequate lighting, including night light 9. Assess need for additional bedding, food/fluids, pain med's prior to sleep/routinely 10. Provide gripper slippers or personal non-skid footwear 11. Teach patient and patient commercial sales representative to maintain environment for safety and engage in all aspects of fall prevention program 12. Remind patient to call for help before getting out of bed 13. Initiate bed/chair/exit alarms supportive devices as appropriate, (chair wedge, no-skid floor mat, raised edge mattress, hip protectors) 14. Locate patient bed assignment for optimal visualization 15. Evaluate and identify Safe Patient Handling Equipment needs 16. Provide supervision when out of bed or chair 17. Utilize gait belt as needed to assist with ambulation 18. Place adaptive equipment (cane, walker) within reach 19. Request patient commercial sales representative bring adaptive equipment/mobility aids from home or obtain and provide as needed 20. Consult pharmacy regarding effects of med's affecting mobility, cognition, and alternatives 21. Obtain physician order for PT if risk factors associated with mobility are present 22. Obtain physician order for OT as appropriate 23. Utilize diversional activities 24. Educate patient and patient commercial sales representative how to maintain a safe environment during visitationtimes (notify nurse prior to leaving bedside) 25. Consider appropriateness of medical or non-medical geneticist 26. Set up voiding schedule as appropriate (every 2 hours) Outcome: Progressing Note: Evaluation of progress towards goal: Fall risk assessment preformed and safety measures in place. Education given to family/patient. Will continue to monitor. * Plan of Care - Wojciech Manley RCP - 07/09/2025 12:05 AM EDT Problem: Inadequate Breathing Pattern Goal: Patient will achieve/maintain normal respiratory rate/effort Description: Patient's goal is: INTERVENTIONS 1. Assess and monitor respiratory rate, effort, breathing pattern, and oxygenation 2. Monitor patient for restlessness, anxiety, air hunger 3. Assess physical activity tolerance 4. Assess tobacco history; ask, advise, and refer as appropriate 5. Collaborate with interdisciplinary team and initiate plans/interventions as needed Outcome: Progressing Note: Evaluation of progress towards goal: ProgressingRespiratory Therapy Clinical Practice Guidelines Consult Clinical Practice Guidelines Ordered Consult Assessment: Consult, Bronchodilator Bronchodilator Indications: Bronchospasm/wheezing Bronchodilator Total: 3 Vital Signs Pulse: 101 (Simultaneous filing. User may not have seen previous data.) Heart Rate Source: Monitor Resp: 22 (Simultaneous filing. User may not have seen previous data.) SpO2: 96 % (Simultaneous filing. User may not have seen previous data.) O2 Device: Nasal cannula O2 Flow Rate (L/min): 3 L/min Patient Position: Semi-fowlers Respiratory Assessment Assessment Type: Post-treatment Level of Consciousness: Alert Respiratory Pattern: Regular Chest Assessment: Chest expansion symmetrical Bilateral Breath Sounds: Increased aeration, Inspiratory wheezes, Expiratory wheezes Patient Active Problem List Diagnosis Internal carotid artery stenosis, [place]re[place] [place] Mixed hyperlipidemia [place]oker St[place]um[place] [place] Last Chest XRAY: Reviewed Pulmonary History: COPD, Smoker RT Reassessment Due In: 12 hours Bronchodilator Respiratory Rate Level 1: Less than 20 Dyspnea Level 1: No SOB Breath Sounds Level 2: Diminished and/or faint wheezes Respiratory History Level 4: Diagnosis of pulmonary disease such as: Asthma/reactive airway disease; Bronchitis/Emphysema (COPD) ; Cystic Fibrosis ; Severe Laryngitis/Tracheitis/Bronchiectasis ; Microbial infection ; Anesthesia related bronchospasms Oxygen to Keep SpO2 Greater Than Or Equal To 92% Level 2: 1-3 LPM 25%-35% or NIV 41 - 50% Peak Flow ([facility] Only) Home Therapy: Not Applicable Patients Current Level & Intervention: 3 Four times daily and Q4 PRN as needed for wheezing * Plan of Care - Mary Rivera RN - 07/08/2025 11:06 PM EDT Problem: Pain Goal: Patient goal is pain score less than 4, able to rest, and participant in treatment plan as appropriate Description: INTERVENTIONS: 1. Encourage patient or legal commercial sales representative to report early pain and ask for pain medicine when needed 2. Assess pain using appropriate pain scale and include the scale used when documenting 3. Administer analgesics based on type and severity of pain and evaluate response within appropriate time frame 4. Implement non-pharmacological measures as appropriate and evaluate response 5. Consider cultural and social influences on pain and pain management 6. Notify LIP if interventions ineffective or patient reports new pain 7. Monitor vital signs including pulse ox, end-tidal CO2 based on pain intervention 8. Reassess pain per policy 9. Teach patient or legal commercial sales representative interventions for comforting Outcome: Progressing Problem: Safety Goal: Patient will be injury free during hospitalization Description: INTERVENTIONS: 1. Assess patient's risk for falls and implement fall prevention plan of care per policy 2. Provide and maintain a safe environment 3. Proper use of double Identifiers 4. Medication administration using the 5 rights 5. Hand hygiene 6. Specimens are labeled at the bedside 7. Instruct patient/ patient commercial sales representative about use of safety devices 8. Include patient/ patient commercial sales representative in decisions related to safety Outcome: Progressing Problem: Infection Goal: Absence of infection during hospitalization Description: INTERVENTIONS 1. Assess and monitor for signs and symptoms of infection. 2. Monitor lab/diagnostic results. 3. Monitor all insertion sites i.e., indwelling lines, tubes and drains. 4. Monitor endotracheal (as able) and nasal secretions for changes in amount and color. 5. Administer medications as ordered. 6. Instruct and encourage patient and family to use good hand hygiene technique. 7. Identify and instruct patient/patient commercial sales representative in use of appropriate isolation precautionsfor identified infection/symptoms. 8. Provide and discuss with patient/patient commercial sales representative on educational MDRO sheet. 9. Encourage and monitor nutritional status daily and consult aviation maintenance technician if indicated. 10. Implement neutropenic guidelines as needed. Outcome: Progressing Problem: Communication Impairment Goal: Ability to express needs and understand communication Description: INTERVENTIONS 1. Assess patient's communication skills and ability to understand information 2. Provide alternate method of communication if needed i.e. ipad, sign board, pen/paper 3. Collaborate with Speech Therapy to develop effective communication strategies 4. Include patient/patient commercial sales representative in decisions related to communication Outcome: Progressing * WILDLIFE TECHNICIAN Procedure Note - Sher Umanzor CCC-WILDLIFE TECHNICIAN - 07/08/2025 1:39 PM EDT Speech Therapy Videofluoroscopic Swallow Study Evaluation Discharge Recommendations for Safe Patient Transition WILDLIFE TECHNICIAN Therapy Recommendations: Continue ST services Recommendations Diet Level: Regular Liquid Level: Level 0 Thin Compensatory Strategies: One sip/bite at a time, Small sips/bites, Follow aspiration precautions Supervision/Positioning: Patient at 90 degress for all PO intake (including medication), Patient toremain upright 15 minutes after meals Medications: In applesauce/puree Impressions Oral Phase: Mild Pharyngeal Phase: Mild Functional Oral Intake Scale: Total PO intake. No restrictions Plan Frequency: 2-3days/week Duration: until discharge Need for skilled Speech Language Pathology Services to address deficits in feeding/swallowing due to a status decline resulting from CVA. Pt educated on purpose of exam, contrast administration, and procedural techniques prior to initiation of exam. Pt educated on diet recommendations, plan of care, and encouraged to use safety strategies in order to maintain safe PO intake following exam. Prognosis Services: Skilled WILDLIFE TECHNICIAN services to address above deficits Prognosis/Potential: Good Considerations: Age, Cognition Assessment Baseline Assessment Allergies Marked As Reviewed: Complete Consistencies Tested Views: Lateral position Level 0 Thin: Spoon, Cup, Straw Level 4 Pureed: Spoon Level 6 Soft & Bite-Sized: Spoon Regular Tested: Bite Modified Barium Swallow Impairment Profile (MBSImP) Oral Impairment: Yes Component 1: Lip Closure: escape from interlabial space or lateral junction, no extension beyond jacqueline border Component 2: Tongue Control During Bolus Hold: escape to lateral buccal cavity/floor of mouth Component 3: Bolus Preparation/Mastication: disorganized chewing/mashing with solid pieces of bolusunchewed Component 4: Bolus Transport/Lingual Motion: delayed initiation of tongue motion Component 5: Oral Residue: residue collection on oral structures Component 6: Initiation of Pharyngeal Swallow: bolus head in pyriforms Pharyngeal Impairment: Yes Component 7: Soft Palate Elevation: no bolus between soft palate/posterior pharyngeal wall Component 8: Laryngeal Elevation: partial superior movement of thyroid cartilage/partial approximation of arytenoids to epiglottic petiole Component 9: Anterior Hyoid Excursion: partial anterior movement Component 10: Epiglottic Movement: complete inversion Component 11: Laryngeal Vestibular Closure - Height of the Swallow: complete, no contrast/air in laryngeal vestibule Component 12: Pharyngeal Stripping Wave: present - diminished Component 13: Pharyngeal Contraction (A/P view only): could not be determined due to logistical reasons not related to physiologic impairment Component 14: Pharyngoesophageal Segment Opening: partial distension/partial duration, partial obstruction of flow Component 15: Tongue Base Retraction: trace column of contrast/air between tongue base and posterior pharyngeal wall MBSImP Overall Impression Scores Oral Impairment Total: 11 Penetration/Aspiration Scale Penetration/Aspiration Scale Performed: Yes Level 0 Thin: Contrast did not enter the airway Level 4 Pureed: Contrast did not enter the airway Level 6 Soft & Bite-Sized: Contrast did not enter the airway Regular: Contrast did not enter the airway Trialed Compensatory Strategies Strategies Utilized: Small sips/bites Effective: Yes Pain Assessment Pain Assessment: No/denies pain Plan Diagnosis Code Swallowing: R13.12 Dysphagia, oropharyngeal phase, I69.391 Dysphagia following cerebral infarction+ Speech Therapy Care Plan Speech Therapy Care Plan (Active) Template: ST - Dysphagia Problem: Swallowing Dates: Start: 07/07/25 Disciplines: WILDLIFE TECHNICIAN Goal: STG: Patient will complete safety strategies with minimal assistance during PO intake 90% of the time Dates: Start: 07/07/25 Expected End: 08/11/25 Disciplines: WILDLIFE TECHNICIAN Goal: STG: Patient will tolerate therapeutic feeding trials of advanced textures with 90% accuracy with minimal cueing Dates: Start: 07/07/25 Expected End: 08/11/25 Disciplines: WILDLIFE TECHNICIAN Template: - Rehab Speech Problem: Auditory Comprehension Dates: Start: 07/07/25 Disciplines: WILDLIFE TECHNICIAN Goal: LTG: Patient will comprehend communication related to basic medical and social needs and utilize compensatory strategies to maintain safety in a functional living environment Dates: Start: 07/07/25 Expected End: 08/11/25 Disciplines: WILDLIFE TECHNICIAN Goal: STG: Patient will complete complex, paragraph level auditory comprehension tasks with 90% accuracy with minimal cueing Dates: Start: 07/07/25 Expected End: 08/11/25 Disciplines: WILDLIFE TECHNICIAN Problem: Cognitive Linguistic Dates: Start: 07/07/25 Disciplines: WILDLIFE TECHNICIAN Goal: LTG: Patient will display functional cognitive-linguistic skills to demonstrate appropriate communication and safety within daily activities in a functional living environment Dates: Start: 07/07/25 Expected End: 08/11/25 Disciplines: WILDLIFE TECHNICIAN Goal: STG: Patient will recall information discussed during therapy session via retelling/answeringquestions with 90% accuracy with minimal cueing Dates: Start: 07/07/25 Expected End: 08/11/25 Disciplines: WILDLIFE TECHNICIAN Problem: High Level Language Dates: Start: 07/07/25 Disciplines: WILDLIFE TECHNICIAN Goal: LTG: Patient will demonstrate use of self-awareness, goal setting, planning, initiation, self-monitoring and problem solving during daily activities to improve safety and awareness in a functional living environment Dates: Start: 07/07/25 Expected End: 08/11/25 Disciplines: WILDLIFE TECHNICIAN Goal: STG: Patient will demonstrate functional problem solving and safety awareness with 90% accuracy in daily living tasks in order to increase safe interactions with environment and decrease assistance from caregivers Dates: Start: 07/07/25 Expected End: 08/11/25 Disciplines: WILDLIFE TECHNICIAN Goal: STG: Patient will complete simple to complex organization, scheduling, planning and reasoningtasks to improve problem solving and safety awareness with 90% accuracy with minimal cueing Dates: Start: 07/07/25 Expected End: 08/11/25 Disciplines: WILDLIFE TECHNICIAN Problem: Verbal Expression Dates: Start: 07/07/25 Disciplines: WILDLIFE TECHNICIAN Goal: LTG: Patient will utilize compensatory strategies to communicate wants and needs effectively to different conversational partners, maintain safety and participate socially in a functional living environment Dates: Start: 07/07/25 Expected End: 08/11/25 Disciplines: WILDLIFE TECHNICIAN Goal: STG: Patient will complete simple to complex divergent and convergent naming tasks with 90% accuracy with minimal cueing to improve thought organization Dates: Start: 07/07/25 Expected End: 08/11/25 Disciplines: WILDLIFE TECHNICIAN Speech Therapy Care Plan (Resolved) There are no resolved problems. Principal Problem: Stroke (cerebrum) ([facility]) * Plan of Care - Wojciech Manley RCP - 07/08/2025 2:53 AM EDT Problem: Inadequate Breathing Pattern Goal: Patient will achieve/maintain normal respiratory rate/effort Description: Patient's goal is: INTERVENTIONS 1. Assess and monitor respiratory rate, effort, breathing pattern, and oxygenation 2. Monitor patient for restlessness, anxiety, air hunger 3. Assess physical activity tolerance 4. Assess tobacco history; ask, advise, and refer as appropriate 5. Collaborate with interdisciplinary team and initiate plans/interventions as needed Outcome: Progressing Note: Evaluation of progress towards goal: ProgressingRespiratory Therapy Clinical Practice Guidelines Consult Clinical Practice Guidelines Ordered Consult Assessment: Consult, Bronchodilator Bronchodilator Indications: Bronchospasm/wheezing Bronchodilator Total: 2 Vital Signs Pulse: 92 Heart Rate Source: Monitor Resp: 19 SpO2: 98 % O2 Device: Nasal cannula O2 Flow Rate (L/min): 4 L/min Patient Position: Semi-fowlers Respiratory Assessment Assessment Type: Post-treatment Level of Consciousness: Alert Respiratory Pattern: Regular Chest Assessment: Chest expansion symmetrical Bilateral Breath Sounds: Diminished Patient Active Problem List Diagnosis Internal carotid artery stenosis, right CVA (cerebral vascular accident) ([facility]) Mixed hyperlipidemia Smoker Last Chest XRAY: Reviewed Pulmonary History: COPD, Smoker RT Reassessment Due In: 12 hours Bronchodilator Respiratory Rate Level 1: Less than 20 Dyspnea Level 1: No SOB Breath Sounds Level 2: Diminished and/or faint wheezes Respiratory History Level 4: Diagnosis of pulmonary disease such as: Asthma/reactive airway disease; Bronchitis/Emphysema (COPD) ; Cystic Fibrosis ; Severe Laryngitis/Tracheitis/Bronchiectasis ; Microbial infection ; Anesthesia related bronchospasms Oxygen to Keep SpO2 Greater Than Or Equal To 92% Level 3: 4-6 LPM or >35% - <50% ; NIV 51 - 65% Peak Flow ([facility] Only) Home Therapy: Not Applicable Patients Current Level & Intervention: 2 Three times daily and Q4 PRN for wheezing * Plan of Care - Lloyd Johnson RN - 07/07/2025 9:33 PM EDT Problem: Pain Goal: Patient goal is pain score less than 4, able to rest, and participant in treatment plan as appropriate Description: INTERVENTIONS: 1. Encourage patient or legal commercial sales representative to report early pain and ask for pain medicine when needed 2. Assess pain using appropriate pain scale and include the scale used when documenting 3. Administer analgesics based on type and severity of pain and evaluate response within appropriate time frame 4. Implement non-pharmacological measures as appropriate and evaluate response 5. Consider cultural and social influences on pain and pain management 6. Notify LIP if interventions ineffective or patient reports new pain 7. Monitor vital signs including pulse ox, end-tidal CO2 based on pain intervention 8. Reassess pain per policy 9. Teach patient or legal commercial sales representative interventions for comforting Outcome: Progressing Note: Evaluation of progress towards goal: Patient has PRN pain medication. Checking with every assessment. Monitoring vitals. Problem: Safety Goal: Patient will be injury free during hospitalization Description: INTERVENTIONS: 1. Assess patient's risk for falls and implement fall prevention plan of care per policy 2. Provide and maintain a safe environment 3. Proper use of double Identifiers 4. Medication administration using the 5 rights 5. Hand hygiene 6. Specimens are labeled at the bedside 7. Instruct patient/ patient commercial sales representative about use of safety devices 8. Include patient/ patient commercial sales representative in decisions related to safety Outcome: Progressing Note: Evaluation of progress towards goal: Patient safety maintained, call light in reach, area clear of hazards, hourly rounding continued, bed locked in lowest position, alarm on as applicable, nonskid socks on, safety educated completed with patient/family, no injuries noted at this time. Problem: Infection Goal: Absence of infection during hospitalization Description: INTERVENTIONS 1. Assess and monitor for signs and symptoms of infection. 2. Monitor lab/diagnostic results. 3. Monitor all insertion sites i.e., indwelling lines, tubes and drains. 4. Monitor endotracheal (as able) and nasal secretions for changes in amount and color. 5. Administer medications as ordered. 6. Instruct and encourage patient and family to use good hand hygiene technique. 7. Identify and instruct patient/patient commercial sales representative in use of appropriate isolation precautionsfor identified infection/symptoms. 8. Provide and discuss with patient/patient commercial sales representative on educational MDRO sheet. 9. Encourage and monitor nutritional status daily and consult aviation maintenance technician if indicated. 10. Implement neutropenic guidelines as needed. Outcome: Progressing Note: Evaluation of progress towards goal: Labs and vitals monitored as ordered. Medications administered as ordered. Patient remains free from infection at this time. Problem: Knowledge Deficit Goal: Patient/patient commercial sales representative demonstrates understanding of disease process, treatment plan,medications, and discharge instructions Description: INTERVENTIONS 1. Complete learning assessment and assess knowledge base 2. Provide teaching at level of understanding 3. Provide teaching via preferred learning method(s) Outcome: Progressing Note: Evaluation of progress towards goal: Care plan discussed & goals for shift set with patient input appreciated. All questions answered. Problem: Discharge Planning Goal: Discharge to post-acute care, other facility, or home with appropriate resources Description: Patient's goal is: INTERVENTIONS 1. Conduct assessment to determine patient/family and health care team treatment goals, and need for post-acute services based on payer coverage, community resources, and patient preferences, and barriers to discharge 2. Coordinate with Social work, Care Navigation, and Utilization Review to arrange appropriate level of services according to patient's needs based on patient preference and payer coverage in collaboration with the physician and health care team 3. Address psychosocial, clinical, and financial barriers to discharge as identified in assessment in conjunction with the patient/family and health care team 4. Consult appropriate ancillary services (i.e.. PT/OT/ST, etc) as needed 5. Communicate with and update the patient/family, physician, and health care team regarding progress on the discharge plan 6. Identify discharge learning needs (meds, wound care, etc). 7. Arrange for needed discharge transportation as appropriate Outcome: Progressing Note: Evaluation of progress towards goal: Discharge orders not yet completed. Problem: Neurological Deficit Goal: Neurological status is stable or improving Description: Patient's goal is: INTERVENTIONS 1. Complete Neurological assessment as indicated/ordered 2. Initiate measures to prevent increased intracranial pressure 3. Monitor and assess patient's level of consciousness, motor function, sensory function, and levelof assistance needed for ADLs 4. Monitor and report changes from baseline 5. Maintain blood pressure and fluid volume within ordered parameters to optimize cerebral perfusion and minimize risk of hemorrhage 6. Monitor labs and diagnostic tests 7. Administer anti-seizure medications as ordered 8. Maintain airway, patient safety and administer oxygen as ordered 9. Monitor patient for seizure activity, document and report duration and description of seizure toLIP 10. If seizure occurs, turn patient to side and suction secretions as needed 11. Reorient patient post seizure 12. Seizure pads on all 4 side rails 13. Instruct patient/family to notify RN of any seizure activity 14. Instruct patient/family to call for assistance with activity based on assessment 15. Utilize bleeding precautions if thrombolytic given Outcome: Progressing Note: Evaluation of progress towards goal: Patient's level of consciousness, motor function, sensory function, and level of assistance needed for ADLs all monitored and assessed at this time. Changesfrom baseline reported to necessary personal when needed. Patients care is optimized for cerebral perfusion accordingly to patients orders. Problem: Activity Intolerance/Impaired Mobility Goal: Mobility/activity is maintained at optimum level for patient Description: Patient's goal is: INTERVENTIONS 1. Assess and monitor patient barriers to mobility and need for assistive/adaptive devices 2. Assess patient's emotional response to limitations 3. Collaborate with interdisciplinary teams and initiate plans and interventions as ordered 4. Encourage independent activity per tolerance 5. Maintain proper body alignment 6. Perform active/passive ROM as tolerated/ordered 7. Coordinate activities to conserve energy 8. Reposition patient 9. Ensure adequate rest/sleep time Outcome: Progressing Note: Evaluation of progress towards goal: Patient's ADL assessed each shift. PT/OT/SP ordered and evaluated as appropriate. Problem: Communication Impairment Goal: Ability to express needs and understand communication Description: INTERVENTIONS 1. Assess patient's communication skills and ability to understand information 2. Provide alternate method of communication if needed i.e. ipad, sign board, pen/paper 3. Collaborate with Speech Therapy to develop effective communication strategies 4. Include patient/patient commercial sales representative in decisions related to communication Outcome: Progressing Note: Evaluation of progress towards goal: Patient/family able to express needs and understands communication at this time. Problem: Potential for Aspiration Goal: Patient's risk of aspiration is minimized Description: INTERVENTIONS 1. Assess and monitor vital signs, respiratory status, and labs (WBC) 2. Monitor for signs of aspiration (tachypnea, cough, rales, wheezing, cyanosis, fever) 3. Assess and monitor patient's ability to swallow 4. Place patient up in chair to eat if possible 5. Elevate head of bed 90 degrees to eat if unable to get patient up into chair 6. Supervise patient during oral intake 7. Instruct patient to take small bites 8. Instruct patient to take small single sips when taking liquids 9. Follow patient-specific strategies generated by speech pathologist 10. Complete bedside swallow screen if appropriate and take actions as indicated. 11. Administer prescribed medications and monitor effects Outcome: Progressing Note: Evaluation of progress towards goal: Risk for aspiration assessed continuously for patient. Problem: Anxiety Goal: Anxiety is at manageable level Description: Patient's goal is: INTERVENTIONS 1. Assess and monitor patient's anxiety level 2. Monitor for signs and symptoms of anxiety both physical and emotional (heart palpitations, chestpain, shortness of breath, headaches, nausea, feeling jumpy, restlessness, irritable, apprehensive) 3. Reorient/orient patient to unit/surroundings 4. Explain treatment plan 5. Explain tests/procedures prior to initiation 6. Encourage participation in care 7. Encourage verbalization of concerns/fears 8. Assess coping mechanisms 9. Assist in developing anxiety-reducing skills 10. Administer complimentary therapies 11. Manage patient's environment 12. Limit or eliminate stimulants such as caffeine and nicotine 13. Collaborate with ancillary departments 14. Include patient/patient commercial sales representative in decisions related to anxiety Outcome: Progressing Note: Evaluation of progress towards goal: Questions/comments/concerned addressed from patient/family. Anxiety remains at a manageable level. Will continue to monitor. Problem: Inadequate Coping Goal: Demonstrates and verbalizes ability to cope effectively Description: Patient's goal is: INTERVENTIONS 1. Patient is able to verbalize feelings related to emotional state 2. Encourage verbalization of feelings, perceptions, fears, stressors, loss of loved ones 3. Encourage verbalization of problems out of their control 4. Encourage participation in care and self management 5. Inform patient of all treatment/care prior to providing care 6. Collaborate with pastoral/spiritual care, social human services assistants, mental health counselor as needed. 7. Instruct patient on diversional activities such as physical activity, distraction, and deep breathing exercises to assist with coping 8. Involve patient's commercial sales representative in care Outcome: Progressing Note: Evaluation of progress towards goal: Patient/family demonstrates/verbalizes ability to cope effectively. Will continue to monitor. Problem: Potential for Compromised Skin Integrity Goal: Skin integrity is maintained or improved Description: Patient's goal is: INTERVENTIONS 1. Perform initial skin assessment on admission and as needed 2. Turn patient every 2 hours and PRN 3. Relieve pressure to bony prominences 4. Avoid shearing 5. Keep skin clean and dry 6. Alternate a full bath with partial baths for elderly 7. Apply lotion/moisturizer on skin 8. Monitor patient's hygiene practices 9. Float heels 10. Collaborate with interdisciplinary team and initiate plans and interventions as needed Outcome: Progressing Note: Evaluation of progress towards goal: Patient repositioned Q2 hrs. Monitor for s/s of skin breakdown and treat/communicate with treatment team as needed. Goal: Patient's nutritional intake is adequate Description: Patient's goal is: INTERVENTIONS 1. Assess and monitor food intake and supplements, patient food preferences, nausea, vomiting, labs, oral cavity (gums, teeth, tongue, mucosa), proper denture fit, and cultural beliefs 2. Monitor for signs of hypoglycemia and hyperglycemia 3. Collaborate with interdisciplinary team and initiate plan and interventions as ordered 4. Monitor patient's weight 5. Assist patient with meals/food selection 6. Assist patient with eating 7. Allow adequate time for meals 8. Provide pleasant environment during mealtime 9. Increase social contact during mealtimes 10. Plan activities to conserve energy 11. Encourage/perform oral hygiene as appropriate 12. Encourage patient to take dietary supplement as ordered 13. Collaborate with clinical aviation maintenance technician 14. Include patient/ patient's commercial sales representative in decisions related to nutrition Outcome: Progressing Note: Evaluation of progress towards goal: Intake documented, weight documented every day. Monitoring for any nausea, vomiting and diarrhea. Patients nutritional intake is adequate at this time. Willcontinue to monitor Problem: Potential for Inadequate Tissue Perfusion - Venous Goal: Tissue perfusion is adequate - venous Description: Patient's goal is: INTERVENTIONS 1. Assess and monitor skin color and temperature, skin integrity, pulses, capillary refill, edema, pain in extremities and Homans' sign 2. Monitor for signs and symptoms (dyspnea, tachypnea, and tachycardia) 3. Encourage ambulation/activity per patient's tolerance and physician order 4. Elevate feet when in chair 5. Encourage patient to do ankle pump exercises 6. Apply anti-embolism stockings/devices as ordered Outcome: Progressing Note: Evaluation of progress towards goal: Tissue perfusion remains adequate at this time. Problem: Self Care Deficit Goal: Return ADL status to a safe level of function Description: Patient's goal is: INTERVENTIONS 1. Administer medication as ordered 2. Assess ADL deficits and provide assistive devices as needed 3. Obtain PT/OT consults as needed 4. Assist and instruct patient to increase activity and self care as tolerated Outcome: Progressing Note: Evaluation of progress towards goal: Patient safety maintained, call light in reach, area clear of hazards, hourly rounding continued, bed locked in lowest position, alarm on as applicable, nonskid socks on, safety educated completed with patient/family, no injuries noted at this time. * Plan of Care - Chucho Zuñiga RN - 07/07/2025 4:47 PM EDT Problem: Safety Goal: Patient will be injury free during hospitalization Description: INTERVENTIONS: 1. Assess patient's risk for falls and implement fall prevention plan of care per policy 2. Provide and maintain a safe environment 3. Proper use of double Identifiers 4. Medication administration using the 5 rights 5. Hand hygiene 6. Specimens are labeled at the bedside 7. Instruct patient/ patient commercial sales representative about use of safety devices 8. Include patient/ patient commercial sales representative in decisions related to safety Outcome: Progressing Note: Evaluation of progress towards goal: Bedrest. A&Ox4. Call light in reach. Pt. Agrees to call for assistance. * PT/OT/WILDLIFE TECHNICIAN - Sher Umanzor [facility]-WILDLIFE TECHNICIAN - 07/07/2025 3:13 PM EDT Speech Therapy Evaluation Bedside Swallow/Feeding Evaluation Speech & Language Cognitive Evaluation Discharge Recommendations for Safe Patient Transition WILDLIFE TECHNICIAN Therapy Recommendations: Continue ST services Video swallow study recommended to determine safety of swallow. Recommendations Diet Level: Level 4 Pureed Liquid Level: No liquids (ok for a few ice chips overnight) Medications: In applesauce/puree Referrals: [facility] (07/08) Impressions Oral Dysphagia: Moderate Pharyngeal Dysphagia Suspected: Yes Plan Frequency: 2-3days/week Duration: until discharge Need for skilled Speech Language Pathology Services to address deficits in feeding/swallowing due to a status decline resulting from CVA. Prognosis Services: Skilled WILDLIFE TECHNICIAN services to address above deficits Prognosis/Potential: Good Considerations: Age, Cognition Discharge Recommendations for Safe Patient Transition WILDLIFE TECHNICIAN Therapy Recommendations: Continue ST services Impressions Receptive Language: Mild-moderate Expressive Language: Mild-moderate Cognitive Linguistic: Moderate Plan Frequency: 2-3days/week Duration: until discharge Rehab Therapy Type: Individual treatment Need for skilled Speech Language Pathology Services to address deficits in speech/language/cognition due to a status decline resulting from CVA. Diagnostic therapy and education were provided. Pt benefited from cueing and repetition. Pt informed on results and recommendations of evaluation. Unable to complete SLUMS. PHQ2 - Over the past 2 weeks, how often have you been bothered by the following problems? Little Interest or Pleasure in Doing Things: Not at all Feeling Down, Depressed or Hopeless: Not at all Score: 0 Score ranges from 0 to 6; patients with scores of 3 or more should be further evaluated. Prognosis Services: Skilled WILDLIFE TECHNICIAN services to address the above deficits Prognosis/Potential: Good Considerations: Age, Cognition Assessment Bedside Swallow/Feeding Eval Speech & Language Cognitive Eval Baseline Assessment Additional Testing Results: Computed Tomography, Chest X-Ray Setting Prior to Admission: Home Respiratory Status: O2 via nasal cannula Behavior/Cognition: Alert, Cooperative, Pleasant mood, Able to follow directions Vision: Impaired for self-feeding Patient Positioning: Upright in bed Volitional Swallow: Within Functional Limits Laryngectomy: No Ability to Control Secretions: Yes Allergies Marked As Reviewed: Complete Oral/Motor Overall Oral/Motor Status: Exceptions to Within Functional Limits Labial ROM: Reduced Labial Strength: Reduced Labial Coordination: Reduced Lingual ROM: Reduced Lingual Strength: Reduced Lingual Coordination: Reduced Facial Strength: Reduced Vocal Quality: Exceptions to WFL Harsh: Moderate Hoarse: Moderate Intelligibility: Intelligible Breath Support: Adequate for speech Xerostomia: No Hearing: Hard of hearing/hearing concerns Consistencies Assessed: Yes Level 0 Thin Presentation: Cup, Straw Oral: Suspect premature spillage Pharyngeal: Cough- immediate Level 4 Pureed Presentation: Spoon Oral: Suspect premature spillage Pharyngeal: Decreased laryngeal elevation, Delayed swallow initiation Pain Assessment Pain Assessment: No/denies pain Oral/Motor Overall Oral/Motor Status: Exceptions to Within Functional Limits Labial ROM: Reduced Labial Strength: Reduced Labial Coordination: Reduced Lingual ROM: Reduced Lingual Strength: Reduced Lingual Coordination: Reduced Facial Strength: Reduced Vocal Quality: Exceptions to WFL Harsh: Moderate Hoarse: Moderate Intelligibility: Intelligible Breath Support: Adequate for speech Xerostomia: No Hearing: Hard of hearing/hearing concerns Auditory Comprehension Overall Auditory Comphension Status: Exceptions to Within Functional Limits Yes/No Questions: Exceptions to WFL Basic Questions: Mild Complex Questions: Moderate Commands: Exceptions to WFL One Step Basic Commands: Mild Two Step Basic Commands: Moderate Multistep Basic Commands: Moderate Complex/Abstract Commands: Moderate Paragraph: Moderate Perception Overall Perception Status: Exceptions to Within Functional Limits Inattention/Neglect: Cues to attend left visual field, Cues to attend to left side of body, Cues tomaintain midline in sitting Expression Overall Expression Status: Exceptions to Within Functional Limits Primary Mode of Expression: Verbal Verbal Expression Overall Verbal Expression Status: Exceptions to Within Functional Limits Initiation: No impairment Automatics: No impairment Repetition: No impairment Naming: Impairment Confrontation: Mild Convergent: Moderate Divergent: Moderate Speech Production Overall Speech Production: Exceptions to Within Functional Limits Conversation: Mild, Moderate Pragmatics/Social Functioning Overall Pragmatic Status: Within Functional Limits Fluency Converstation Level: Impaired High Level Language Overall High Level Language Status: Exceptions to Within Functional Limits Attention: Exceptions to WFL Sustained Attention: Moderate Memory: Exceptions to WFL Immediate Memory: Mild Short-term Memory: Moderate Working Memory: Moderate Problem Solving: Exceptions to WFL Managing Finances: Moderate Managing Medications: Moderate Abstract Reasoning: Moderate Inductive Reasoning: Moderate Task Initiation: Delayed initiation Flexibility of Thought: Reduced flexibility Planning: Reduced planning skills Cognition Overall Cognitive Status: Exceptions to Within Functional Limits Arousal/Alertness: Appropriate responses to stimuli Attention Span: Attends with cues to redirect Memory: Decreased short term memory Orientation Level: Oriented X4 Awareness of Errors: Decreased awareness of errors Insight of Deficits: Decreased awareness of deficits Problem Solving: Assistance required to identify errors made, Assistance required to generate solutions Pain Assessment Pain Assessment: No/denies pain Plan Diagnosis Code Swallowing: R13.12 Dysphagia, oropharyngeal phase, I69.891 Dysphagia following other cerebrovascular disease+ Cerebrovascular Disease: I69.828 Other speech and language deficits following other CV disease Speech Therapy Care Plan Speech Therapy Care Plan (Active) Template: ST - Dysphagia Problem: Swallowing Dates: Start: 07/07/25 Disciplines: WILDLIFE TECHNICIAN Goal: STG: Patient will complete safety strategies with minimal assistance during PO intake 90% of the time Dates: Start: 07/07/25 Expected End: 08/11/25 Disciplines: WILDLIFE TECHNICIAN Goal: STG: Patient will tolerate therapeutic feeding trials of advanced textures with 90% accuracy with minimal cueing Dates: Start: 07/07/25 Expected End: 08/11/25 Disciplines: WILDLIFE TECHNICIAN Template: ST - Rehab Speech Problem: Auditory Comprehension Dates: Start: 07/07/25 Disciplines: WILDLIFE TECHNICIAN Goal: LTG: Patient will comprehend communication related to basic medical and social needs and utilize compensatory strategies to maintain safety in a functional living environment Dates: Start: 07/07/25 Expected End: 08/11/25 Disciplines: WILDLIFE TECHNICIAN Goal: STG: Patient will complete complex, paragraph level auditory comprehension tasks with 90% accuracy with minimal cueing Dates: Start: 07/07/25 Expected End: 08/11/25 Disciplines: WILDLIFE TECHNICIAN Problem: Cognitive Linguistic Dates: Start: 07/07/25 Disciplines: WILDLIFE TECHNICIAN Goal: LTG: Patient will display functional cognitive-linguistic skills to demonstrate appropriate communication and safety within daily activities in a functional living environment Dates: Start: 07/07/25 Expected End: 08/11/25 Disciplines: WILDLIFE TECHNICIAN Goal: STG: Patient will recall information discussed during therapy session via retelling/answeringquestions with 90% accuracy with minimal cueing Dates: Start: 07/07/25 Expected End: 08/11/25 Disciplines: WILDLIFE TECHNICIAN Problem: High Level Language Dates: Start: 07/07/25 Disciplines: WILDLIFE TECHNICIAN Goal: LTG: Patient will demonstrate use of self-awareness, goal setting, planning, initiation, self-monitoring and problem solving during daily activities to improve safety and awareness in a functional living environment Dates: Start: 07/07/25 Expected End: 08/11/25 Disciplines: WILDLIFE TECHNICIAN Goal: STG: Patient will demonstrate functional problem solving and safety awareness with 90% accuracy in daily living tasks in order to increase safe interactions with environment and decrease assistance from caregivers Dates: Start: 07/07/25 Expected End: 08/11/25 Disciplines: WILDLIFE TECHNICIAN Goal: STG: Patient will complete simple to complex organization, scheduling, planning and reasoningtasks to improve problem solving and safety awareness with 90% accuracy with minimal cueing Dates: Start: 07/07/25 Expected End: 08/11/25 Disciplines: WILDLIFE TECHNICIAN Problem: Verbal Expression Dates: Start: 07/07/25 Disciplines: WILDLIFE TECHNICIAN Goal: LTG: Patient will utilize compensatory strategies to communicate wants and needs effectively to different conversational partners, maintain safety and participate socially in a functional living environment Dates: Start: 07/07/25 Expected End: 08/11/25 Disciplines: WILDLIFE TECHNICIAN Goal: STG: Patient will complete simple to complex divergent and convergent naming tasks with 90% accuracy with minimal cueing to improve thought organization Dates: Start: 07/07/25 Expected End: 08/11/25 Disciplines: WILDLIFE TECHNICIAN Speech Therapy Care Plan (Resolved) There are no resolved problems. Active Problems: * No active hospital problems. * documented in this encounter Plan of Treatment DateTypeDepartmentCare Team (Latest Contact Info)Dihdinyyask53/04/2025 1:30 PM ESTOffice Visit [facility] Department of [address] [place] [phone] Andrew Terrell MD [address] [place] [address] [address] [place], [place] [id number] NameTypePriorityAssociated DiagnosesDate/TimeNeuro InvasivCardiac CathRoutine 07/09/2025 12:45 PM EDTdocumented as of this encounter Goals GoalPatient Goal TypeAssociated ProblemsRecent ProgressPatient-Stated?Author Safe Discharge Jaki Mock, RAJEEV Note: Evaluation of progress towards goal: safe transition to SNF rehab for strengthening and rehab s/p stroke documented as of this encounter Procedures Procedure NamePriorityDate/TimeAssociated DiagnosisCommentsEXTRA TUBES LAVENDER KUXCznpese65/21/2025 5:54 AM EDT EXTRA KCNANZfddwdq45/21/2025 5:54 AM EDT COMPREHENSIVE METABOLIC PGVWFYdcmkdp14/21/2025 5:54 AM EDT COMPREHENSIVE METABOLIC LMBKKRpjagzb96/20/2025 3:34 AM EDT CBC WITH AUTO REOUZIXAMARUSiszgvd02/19/2025 3:28 AM EDT COMPREHENSIVE METABOLIC STMINLyuecmq87/19/2025 3:28 AM EDT NEURO DFNXHMTUQsxgnsx80/18/2025 12:45 PM EDTNEURO IFUVIDQXGxyenys26/18/2025 12:45 PM EDTCBC WITH AUTO LDSPVMKAQOXAUnrukdm48/18/2025 3:48 AM EDT COMPREHENSIVE METABOLIC TXMSXEyxqqmb03/18/2025 3:48 AM EDT FL SWALLOW MOTILITY YPQMNCSLOigrxzn40/17/2025 1:46 PM EDT ECHO COMPLETE W RECJFVWKDrwwdfh48/17/2025 1:37 PM EDT VASC CAROTID DUPLEX CTSCKBSIOAwmvgld30/17/2025 11:11 AM EDT CBC WITH AUTO GSVHXWHVCIUWDmmkfhm64/17/2025 3:14 AM EDT LIPID YPQIOKLYgfnkgd05/17/2025 3:14 AM EDT COMPREHENSIVE METABOLIC UTHREUmeskww27/17/2025 3:14 AM EDT MR BRAIN WO WHUJFIQW03/16/2025 9:02 PM EDT XR CHEST 1 TYWzpkvij80/16/2025 6:56 PM EDT ECG 12-VTJTVLKV52/16/2025 5:35 PM EDT CBC WITH AUTO KEUXLVSFIHVUTfpxovb93/16/2025 3:49 PM EDT B-TYPE NATRIURETIC PEPTIDEAdd-On07/07/2025 3:49 PM EDT HEMOGLOBIN U7HUeqapcq86/16/2025 3:49 PM EDT COMPREHENSIVE METABOLIC KTGDOGuwipji15/16/2025 3:49 PM EDT BEDSIDE SAUFWARYypvovz15/16/2025 2:[address] CEREBRAL PERF LXNRFIZXWHQR67/16/2025 2:38 PM EDT documented in this encounter Results * Lavender Top (07/12/2025 5:54 AM EDT)ComponentValueRef RangeTest Method Analysis TimePerformed AtPathologist SignatureExtra TubeAuto Resulted 07/12/2025 7:[address] [facility] LABORATORYSpecimen (Source) Anatomical Location / LateralityCollection Method / VolumeCollection Time Received TimeBloodVenous blood / Owsmwxq9907/12/2025 5:54 AM EDT1 6:11 AM EDT Narrative Authorizing ProviderResult TypeResult StatusMouhammasonia BAKER BLOOD ORDERABLESFinal ResultPerforming OrganizationAddressCity/State/ZIP CodePhone Number [facility] [address] [place] [address], * (ABNORMAL) Comprehensive metabolic panel (07/12/2025 5:54 AM EDT)Component ValueRef RangeTest MethodAnalysis TimePerformed AtPathologist SignatureSODIUM 371302 - 146 mmol/L1 6:[address] [facility] POTASSIUM4.03.5 - 5.0 mmol/L1 6:[address] [facility] XODBNUCJQVHLBDQVTJ68311 - 109 mmol/L1 6:[address] [facility] LABORATORYCARBON QOTKMKQ6755 - 32 mmol/L1 6:[address] [facility] LABORATORYANION GAP85 - 15 mmol/L1 6:49 AM EDT [facility] LABORATORYBLOOD UREA XLMPGGMX310 - 27 mg/dL07/12/2025 6:[address] [facility] LABORATORYCREATININE0.750.60 - 1.30 mg/dL 07/12/2025 6:[address] [facility] LABORATORYComment:METHOD TRACEABLE TO IDMS IKXMEIXJXZRFFRS9444 - 99 mg/dL07/12/2025 6:[address] [facility] LABORATORYCALCIUM8.68.5 - 10.5 mg/dL07/12/2025 6:49 AM EDT [facility] LABORATORYTOTAL PROTEIN5.6(L)6.0 - 8.0 g/dL07/12/2025 6:[address] [facility] LABORATORYALBUMIN3.43.2 - 5.3 g/dL 07/12/2025 6:[address] [facility] LABORATORYALKALINE PHOSPHATASE 5339 - 130 U/L1 6:[address] [facility] BFWRUBXOSSGUL22 <=41 U/L1 6:[address] [facility] SOQWTJRJPEZZS13<=40 U/L 07/12/2025 6:[address] [facility] LABORATORYBILIRUBIN,TOTAL0.90.3 - 1.2 mg/dL07/12/2025 6:[address] [facility]ORYEGFR Non- Race Dependent>90>=60 ml/min/1.73sq.m1 6:[address] [facility] LABORATORYComment: Reported eGFR is based on the CKD-EPI 2020 equation that does not use a race coefficient. Specimen (Source)Anatomical Location / LateralityCollection Method / Volume Collection TimeReceived TimeBloodVenous blood / UnknownVenipuncture / Unknown 07/12/2025 5:54 AM EDT1 6:11 AM EDT Narrative Authorizing ProviderResult TypeResult StatusAhmed Deven Guzman MDLAB BLOOD ORDERABLESFinal ResultPerforming OrganizationAddressCity/State/ZIP CodePhone Number [facility] [address] [place] [address], * (ABNORMAL) Comprehensive metabolic panel (07/11/2025 3:34 AM EDT)Component ValueRef RangeTest MethodAnalysis TimePerformed AtPathologist SignatureSODIUM 547365 - 146 mmol/L1 4:[address] [facility] POTASSIUM4.23.5 - 5.0 mmol/L1 4:[address] [facility] GAMQVCRPWNZDHLDCFQ6507 - 109 mmol/L1 4:[address] [facility] LABORATORYCARBON DLREGYY9249 - 32 mmol/L1 4:[address] [facility] LABORATORYANION GAP75 - 15 mmol/L1 4:40 AM EDT [facility] LABORATORYBLOOD UREA THDILOHT137 - 27 mg/dL07/11/2025 4:[address] [facility] LABORATORYCREATININE0.790.60 - 1.30 mg/dL 07/11/2025 4:[address] [facility] LABORATORYComment:METHOD TRACEABLE TO IDMS GOEAEFVNNRKYXLQ3080 - 99 mg/dL07/11/2025 4:[address] [facility] LABORATORYCALCIUM8.68.5 - 10.5 mg/dL07/11/2025 4:40 AM EDT [facility] LABORATORYTOTAL PROTEIN5.7(L)6.0 - 8.0 g/dL07/11/2025 4:[address] [facility] LABORATORYALBUMIN3.43.2 - 5.3 g/dL 07/11/2025 4:[address] [facility] LABORATORYALKALINE PHOSPHATASE 5239 - 130 U/L1 4:[address] [facility] SPMFUHFZKVCUM08 <=41 U/L1 4:[address] [facility] QKSBYYFPAAVBX50<=40 U/L 07/11/2025 4:[address] [facility] LABORATORYBILIRUBIN,TOTAL1.00.3 - 1.2 mg/dL07/11/2025 4:[address] [facility] LABORATORYEGFR Non- Race Dependent>90>=60 ml/min/1.73sq.m1 4:[address] [facility] LABORATORYComment: Reported eGFR is based on the CKD-EPI 2020 equation that does not use a race coefficient. Specimen (Source)Anatomical Location / LateralityCollection Method / Volume Collection TimeReceived TimeBloodVenous blood / UnknownVenipuncture / Unknown 07/11/2025 3:34 AM EDT1 4:01 AM EDT Narrative Authorizing ProviderResult TypeResult StatusAhmed Dveen Guzman MDLAB BLOOD ORDERABLESFinal ResultPerforming OrganizationAddressCity/State/ZIP CodePhone Number [facility] [address] [place] [address], * Comprehensive metabolic panel (07/10/2025 3:28 AM EDT)ComponentValueRef Range Test MethodAnalysis TimePerformed AtPathologist LembwyokvJMPJJS724931 - 146 mmol/L1 4:[address] [facility] LABORATORYPOTASSIUM4.33.5 - 5.0 mmol/L1 4:[address] [facility] LABORATORYCHLORIDE 9998 - 109 mmol/L1 4:[address] [facility] [place] JTQIMTC6429 - 32 mmol/L1 4:[address] [facility] LABORATORYANION GAP85 - 15 mmol/L1 4:[address] [facility] LABORATORYBLOOD UREA FUWHNHFV443 - 27 mg/dL07/10/2025 4:[address] [facility] LABORATORYCREATININE0.780.60 - 1.30 mg/dL07/10/2025 4:[address] [facility] LABORATORYComment:METHOD TRACEABLE TO [facility] CONPTWRIADDYBGP9591 - 99 mg/dL07/10/2025 4:[address] [facility] LABORATORYCALCIUM8.98.5 - 10.5 mg/dL07/10/2025 4:[address] [facility] LABORATORYTOTAL PROTEIN6.06.0 - 8.0 g/dL07/10/2025 4:[address] [facility] LABORATORYALBUMIN3.53.2 - 5.3 g/dL07/10/2025 4:10 AM [facility] LABORATORYALKALINE TSTEHXAGXQP9721 - 130 U/L 07/10/2025 4:[address] [facility] HZPECFJSODICI87<=41 U/L 07/10/2025 4:[address] [facility] IVYQQTWKUPLYV10<=40 U/L 07/10/2025 4:[address] [facility] LABORATORYBILIRUBIN,TOTAL1.10.3 - 1.2 mg/dL07/10/2025 4:[address] [facility]OR[facility]ORYEGFR Non- Race Dependent>90>=60 ml/min/1.73sq.m1 4:[address] [facility]ORATORYComment: Reported eGFR is based on the CKD-EPI 2020 equation that does not use a race coefficient. Specimen (Source)Anatomical Location / LateralityCollection Method / Volume Collection TimeReceived TimeBloodVenous blood / UnknownVenipuncture / Unknown 07/10/2025 3:28 AM EDT1 3:42 AM EDT Narrative Authorizing ProviderResult TypeResult StatusAhmed Deven Tobar Thelynette MDLAB BLOOD ORDERABLESFinal ResultPerforming OrganizationAddressCity/State/ZIP CodePhone Number [facility] [address] [place] [phone], * (ABNORMAL) CBC auto differential (07/10/2025 3:28 AM EDT)ComponentValueRef RangeTest MethodAnalysis TimePerformed AtPathologist QiydbvxdoSAB93.04 - 11 x10E9/L1 3:[address] [facility] LABORATORYRBC Count4.30 4.1 - 5.7 X10E12/L1 3:[address] [facility] Liplnoopra64.6(L)13 - 17 g/dL07/10/2025 3:[address] [facility] YPQDSSYFHILuilsqlbqm95.9(L)39 - 50 %07/10/2025 3:[address] [facility] EUHONCXIMWXON7438 - 100 fL07/10/2025 3:[address] [facility] RAJBSRZNTRORT76.427 - 34 pg07/10/2025 3:[address] [facility] JRVDTTOHKHGNOU66.332 - 36 g/dL07/10/2025 3:[address] [facility] LUYOXQPBDZSCH63.911.5 - 15 %07/10/2025 3:[address] [facility] LABORATORYPlatelet Whnux014918 - 450 X10E9/L1 3:55 AM EDT [facility] LABORATORYMPV7.47 - 12 fL07/10/2025 3:[address] [facility] LABORATORYNeutrophils %75.4%07/10/2025 3:[address] [facility] LABORATORYLymphocytes %10.4%07/10/2025 3:[address] [facility] LABORATORYMonocytes %10.7%07/10/2025 3:[address] [facility] LABORATORYEosinophils %3.0%07/10/2025 3:[address] [facility] LABORATORYBasophils %0.5%07/10/2025 3:[address] [facility] LABORATORYNeutrophils Absolute (A)7.5(H)1.5 - 6.6 10*3/uL 07/10/2025 3:[address] [facility] LABORATORYLymphocytes Absolute 1.01.0 - 3.5 10*3/uL07/10/2025 3:[address] [facility] Monocytes Absolute1.1(H)0.0 - 0.9 10*3/uL07/10/2025 3:[address] [facility] LABORATORYEosinophils Absolute0.30.0 - 0.4 10*3/uL07/10/2025 3:[address] [facility] LABORATORYBasophils Absolute0.10.0 - 0.2 10*3/uL 07/10/2025 3:[address] [facility] LABORATORYDifferential Type AUTOMATED YGAFAQWGAVYR85/19/2025 3:[address] [facility] LABORATORYSpecimen (Source)Anatomical Location / LateralityCollection Method / VolumeCollection TimeReceived TimeBloodVenous blood / UnknownVenipuncture / Bupljue4407/10/2025 3:28 AM EDT1 3:42 AM EDT Narrative Authorizing ProviderResult TypeResult StatusAhmed Deven Guzman MDLAB BLOOD ORDERABLESFinal ResultPerforming OrganizationAddressCity/State/ZIP CodePhone Number [facility] [address] [place] [address], * (ABNORMAL) Comprehensive metabolic panel (07/09/2025 3:48 AM EDT)Component ValueRef RangeTest MethodAnalysis TimePerformed AtPathologist SignatureSODIUM 402572 - 146 mmol/L1 4:[address] [facility] POTASSIUM4.13.5 - 5.0 mmol/L1 4:[address] [facility] EYQWGCUGFYXIZSIUII0058 - 109 mmol/L1 4:[address] [facility] LABORATORYCARBON TOJYDDK3660 - 32 mmol/L1 4:[address] [facility] LABORATORYANION GAP95 - 15 mmol/L1 4:57 AM EDT [facility] LABORATORYBLOOD UREA FOGZHPTK996 - 27 mg/dL07/09/2025 4:[address] [facility] LABORATORYCREATININE0.860.60 - 1.30 mg/dL 07/09/2025 4:[address] [facility] LABORATORYComment:METHOD TRACEABLE TO IDMS KSTSNRQTIAVGZRZ743(H)65 - 99 mg/dL07/09/2025 4:57 AM [facility] LABORATORYCALCIUM8.88.5 - 10.5 mg/dL07/09/2025 4:[address] [facility] LABORATORYTOTAL PROTEIN6.06.0 - 8.0 g/dL 07/09/2025 4:[address] [facility] LABORATORYALBUMIN3.73.2 - 5.3 g/dL07/09/2025 4:[address] [facility] LABORATORYALKALINE RSDTUHUKMEL2130 - 130 U/L1 4:[address] [facility] JZSFFSTQPCBKQ88<=41 U/L1 4:[address] [facility] NGPRJFZUKUPUD09<=40 U/L1 4:[address] [facility] LABORATORYBILIRUBIN,TOTAL0.90.3 - 1.2 mg/dL07/09/2025 4:[address] [facility] LABORATORYEGFR Non-Race Dependent>90>=60 ml/min/1.73sq.m 07/09/2025 4:[address] [facility] LABORATORYComment: Reported eGFR is based on the CKD-EPI 2020 equation that does not use a race coefficient. Specimen (Source)Anatomical Location / LateralityCollection Method / Volume Collection TimeReceived TimeBloodVenous blood / UnknownVenipuncture / Unknown 07/09/2025 3:48 AM EDT1 4:12 AM EDT Narrative Authorizing ProviderResult TypeResult StatusAhmed Deven Guzman MDLAB BLOOD ORDERABLESFinal ResultPerforming OrganizationAddressCity/State/ZIP CodePhone Number [facility] [address] [place] [address], * (ABNORMAL) CBC auto differential (07/09/2025 3:48 AM EDT)ComponentValueRef RangeTest MethodAnalysis TimePerformed AtPathologist FcgfydxdrRMD25.64 - 11 x10E9/L1 4:[address] [facility] LABORATORYRBC Count4.34 4.1 - 5.7 X10E12/L1 4:[address] [facility] Glmrpfbbbm33.9(L)13 - 17 g/dL07/09/2025 4:[address] [facility] SBSNDMKVYPDmjplhmknn54.2(L)39 - 50 %07/09/2025 4:[address] [facility] YCKCVKKEMBGWA8760 - 100 fL07/09/2025 4:[address] [facility] NQZVHTONESLRP17.727 - 34 pg07/09/2025 4:[address] [facility] LCJVNMMLDDPWVS00.832 - 36 g/dL07/09/2025 4:[address] [facility] ULYPXUZCTSPAW35.011.5 - 15 %07/09/2025 4:[address] [facility] LABORATORYPlatelet Htnxe192984 - 450 X10E9/L1 4:24 AM EDT [facility] LABORATORYMPV7.57 - 12 fL07/09/2025 4:[address] [facility] LABORATORYNeutrophils %74.6%07/09/2025 4:[address] [facility] LABORATORYLymphocytes %11.8%07/09/2025 4:[address] [facility] LABORATORYMonocytes %10.8%07/09/2025 4:[address] [facility] LABORATORYEosinophils %2.1%07/09/2025 4:[address] [facility] LABORATORYBasophils %0.7%07/09/2025 4:[address] [facility] LABORATORYNeutrophils Absolute (A)7.9(H)1.5 - 6.6 10*3/uL 07/09/2025 4:[address] [facility] LABORATORYLymphocytes Absolute 1.31.0 - 3.5 10*3/uL07/09/2025 4:[address] [facility] Monocytes Absolute1.1(H)0.0 - 0.9 10*3/uL07/09/2025 4:[address] [facility] LABORATORYEosinophils Absolute0.20.0 - 0.4 10*3/uL07/09/2025 4:[address] [facility] LABORATORYBasophils Absolute0.10.0 - 0.2 10*3/uL 07/09/2025 4:[address] [facility] LABORATORYDifferential Type AUTOMATED QTCOYISNHHVK72/18/2025 4:[address] [facility] LABORATORYSpecimen (Source)Anatomical Location / LateralityCollection Method / VolumeCollection TimeReceived TimeBloodVenous blood / UnknownVenipuncture / Xbdugwb4807/09/2025 3:48 AM EDT1 4:12 AM EDT Narrative Authorizing ProviderResult TypeResult StatusAhmed Deven Tobar [facility] Centerlynette [facility] BLOOD ORDERABLESFinal ResultPerforming OrganizationAddressCity/State/ZIP CodePhone Number [facility] [address] [place] [address], * Fluoroscopy swallow motility function (07/08/2025 1:46 PM EDT)Anatomical RegionLateralityModalityChest, Abdomen, BodyRadio FluoroscopySpecimen (Source) Anatomical Location / LateralityCollection Method / VolumeCollection Time Received Time07/08/2025 1:50 PM EDT Narrative 07/08/2025 1:55 PM EDT FL SWALLOW MOTILITY FUNCTION HISTORY: Oropharyngeal dysphagia COMPARISON: None TECHNIQUE: Video fluoroscopic swallow study was performed in conjunction with speech pathologist. Barium contrast materials of varying consistencies administered. FINDINGS: Fluoroscopy time: 1.0 minute Reference air kerma: 1.4 mGy Thin: No penetration or aspiration. Applesauce: No penetration or aspiration. Fruit: No penetration or aspiration. Cracker: No penetration or aspiration. IMPRESSION: 1. ??No penetration or aspiration. 2. ??Please correlate with dedicated speech pathology report for additional details and recommendations. Approved by Prudence Koo MD ??on 07/08/2025 1:50 PM Denny Ramos MD have personally reviewed the image(s) and agree with and/or edited the report Finalized by Denny Parekh MD on 07/08/2025 1:55 PM Procedure Note Denny Parekh MD - 07/08/2025 FL SWALLOW MOTILITY FUNCTION HISTORY: Oropharyngeal dysphagia COMPARISON: None TECHNIQUE: Video fluoroscopic swallow study was performed in conjunctionwith speech pathologist. Barium contrast materials of varyingconsistencies administered. FINDINGS: Fluoroscopy time: 1.0 minute Reference air kerma: 1.4 mGy Thin: No penetration or aspiration. Applesauce: No penetration or aspiration. Fruit: No penetration or aspiration. Cracker: No penetration or aspiration. IMPRESSION: 1. No penetration or aspiration. 2. Please correlate with dedicated speech pathology report for additionaldetails and recommendations. Approved by Prudence Koo MD on 07/08/2025 1:50 PM Denny Ramos MD have personally reviewed the image(s) and agree withand/or edited the report Finalized by Denny Parekh MD on 07/08/2025 1:55 PM Authorizing ProviderResult TypeResult StatusMojerzy Aguilera MDDemetrius FLUOROSCOPY ORDERABLESFinal Result * Echo complete W/ contrast (07/08/2025 1:37 PM EDT)ComponentValueRef RangeTest MethodAnalysis TimePerformed AtPathologist SignatureLVOT stroke .58ml [id number] - 44 %XCELERALVIDd5.906.58 - 9.14 cmXCELERALVIDs3.703.82 - 5.79 cmXCELERAIVS0.900.6 - 1.1 cmXCELERAPW0.900.6 - 1.1 cmXCELERALVOT diameter1.90 cmXCELERATDI6.31cm/sXCELERAMV TDI E' (medial)5.98cm/sXCELERAE/A ratio0.82 XCELERAE wave deceleration tuxo050.00msecXCELERAMV Peak E Vel76.00cm/sXCELERA MV Peak A Vel92.80cm/sXCELERALA size2.70cmXCELERARV diastolic dimension (basal)32.5mlHQNZYWUTEOCM8.83cmXCELERAAV peak voz730.00cm/sXCELERALVOT peak vel1.31m/sXCELERAAV VTI25.10cmXCELERALVOT peak VTI25.60cmXCELERAAV mean gradient5.00mmHgXCELERAAV peak gradient7.62mmHgXCELERAAV valve area2.89XCELERA Valve area - Index1.3XCELERAMV pressure 1/2 time77.00msXCELERAMV valve area p 1/2 method2.75zx1DSDFDDAQZ peak gradient3.11mmHgXCELERALV ESV A4C22.60mL XCELERALV RWT 2D30.51XCELERAAV Velocity Ratio1.02XCELERALeft Ventricle Mass [id number]dalza Septum Diastolic Thickness by 2D9 cmXCELERAEst. RA otfopgcc3ioUkWVZMBBBWP area16.3wk8WMDPBNNRWQAHP-9.90XCELERA ZLVIDD-2.73XCELERAAnatomical RegionLateralityModalityChestN/AUltrasound Specimen (Source)Anatomical Location / LateralityCollection Method / Volume Collection TimeReceived Time Narrative 07/08/2025 4:25 PM EDT Left Ventricle: Left ventricle is mildly dilated. Systolic function is normal with an ejection fraction of 60-65%. Left Ventricle Left ventricle is mildly dilated. Wall thickness is normal. Systolic function is normal with an ejection fraction of 60-65%. No segmental wall motion abnormalities. Normal diastolic function is present. Lateral E' is 6.31 cm/s. Medial E' is 5.98 cm/s. Right Ventricle Right ventricular size appears normal. The right ventricular basal diameter is 32.0 mm. Systolic function is normal. Normal tricuspid annular plane systolic excursion. Left Atrium Left atrium is normal in size. Agitated saline bubble study revealed no evidence of right to left interatrial shunting . Right Atrium Right atrium is normal in size. The right atrial area is 16.0 cm2. IVC/SVC The right atrial pressure is estimated at 3 mmHg. Mitral Valve Mitral valve structure is normal. There is trace regurgitation. There is no evidence of mitral valve stenosis. Tricuspid Valve Tricuspid valve appears to be normal. There is trace regurgitation. There is no evidence of tricuspid valve stenosis. Insufficient regurgitant jet to assess right ventricular systolic pressure. RVSP is based on RA pressure of 3 mmHg. Aortic Valve Probable trileaflet aortic valve. The leaflets are mildly thickened and exhibit normal excursion. There is no regurgitation or stenosis. Pulmonic Valve Pulmonic valve structure is grossly normal. There is no regurgitation or stenosis. The peak gradient is 3.11 mmHg. Ascending Aorta The aorta was not well visualized. Pericardium There is no pericardial effusion. The pericardium has a fat pad. Study Details A complete echo was performed using complete 2D, color flow Doppler and spectral Doppler. During the study the apical, parasternal, subcostal and suprasternal views were captured. Definity study was performed. The study had technical difficulties. The study was difficult due to patient's respiration. Authorizing ProviderResult TypeResult [facility] ECHO ORDERABLESFinal Result * Vas carotid duplex bilateral (07/08/2025 11:11 AM EDT)Anatomical Region LateralityModalityVascularBilateralUltrasoundSpecimen (Source)Anatomical Location / LateralityCollection Method / VolumeCollection TimeReceived Time 07/08/2025 11:21 AM EDT Narrative 07/08/2025 7:53 PM EDT Previous: Previous carotid duplex exam performed 01/28/2022: RIGHT: Patent carotid stent with <70% restenosis (187/71 cm/sec) in stent. Occluded vertebral artery. LEFT: <50% ICA stenosis. Antegrade vertebral artery flow. Right: Carotid stent with elevated spectral Doppler velocities mid stent: 247/60cm/sec. ??Limited visualization in stent due to shadowing. ??Vertebral artery was visualized without color flow and spectral Doppler waveforms. Left: Plaque with no significant ICA spectral Doppler or color flow disturbances; ICA 81/25 cm/sec.??Antegrade vertebral artery flow. General: In-patient, bedside examination. Conclusions: RIGHT: ??Internal carotid artery with a stent with elevated velocities the puts it around 60-65% stenosis.50-69% stenosis of the internal carotid artery. 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 ??LEFT: ??Plaque without significant stenosis (<50%) of the internal carotid artery. Antegrade vertebral artery flow. ? Recommendations: Any questions prior to finalization, please call the reading physician during normal business hours at the phone number beside their name. Procedure Note Lisa Muhammad MD - 07/08/2025 Previous: Previous carotid duplex exam performed 01/28/2022: RIGHT: Patentcarotid stent with <70% restenosis (187/71 cm/sec) in stent. Occludedvertebral artery. LEFT: <50% ICA stenosis. Antegrade vertebral arteryflow. Right: Carotid stent with elevated spectral Doppler velocities mid stent: 247/60cm/sec. Limited visualization in stent due to shadowing. Vertebralartery was visualized without color flow and spectral Doppler waveforms. Left: Plaque with no significant ICA spectral Doppler or color flowdisturbances; ICA 81/25 cm/sec. Antegrade vertebral artery flow. General: In-patient, bedside examination. Conclusions: RIGHT: Internal carotid artery with a stent with elevatedvelocities the puts it around 60-65% stenosis.50-69% stenosis of theinternal carotid artery. Duplex data consistent with vertebral arteryocclusion. LEFT: Plaque without significant stenosis (<50%) of the internal carotid artery. Antegradevertebral artery flow. Recommendations: Any questions prior to finalization, please call thereading physician during normal business hours at the phone number besidetheir name. Authorizing ProviderResult TypeResult StatusKhcolumbia memorial hospitalsonia Vicente [facility] VASCULAR ORDERABLESFinal Result * Comprehensive metabolic panel (07/08/2025 3:14 AM EDT)ComponentValueRef Range Test MethodAnalysis TimePerformed AtPathologist CaamhoqfvZPLTOI080967 - 146 mmol/L1 4:[address] [facility]ORATORYPOTASSIUM4.33.5 - 5.0 mmol/L1 4:[address] [facility] LABORATORYCHLORIDE 49176 - 109 mmol/L1 4:[address] [facility] CARBON ICJINJP1143 - 32 mmol/L1 4:[address] [facility] LABORATORYANION GAP75 - 15 mmol/L1 4:[address] [facility] LABORATORYBLOOD UREA PYJXDCXL674 - 27 mg/dL07/08/2025 4:[address] [facility] LABORATORYCREATININE0.780.60 - 1.30 mg/dL07/08/2025 4:[address] [facility]ORATORYComment:METHOD TRACEABLE TO IDCA RVJXKOBZZEYTUUA0366 - 99 mg/dL07/08/2025 4:[address] [facility] LABORATORYCALCIUM9.08.5 - 10.5 mg/dL07/08/2025 4:[address] [facility] LABORATORYTOTAL PROTEIN6.56.0 - 8.0 g/dL07/08/2025 4:[address] [facility] LABORATORYALBUMIN3.93.2 - 5.3 g/dL07/08/2025 4:33 AM [facility] LABORATORYALKALINE ETFLQSEYMQL3243 - 130 U/L 07/08/2025 4:[address] [facility] UIFDFCOUMMOQY63<=41 U/L 07/08/2025 4:[address] [facility] NJQZLCNWZMYZD93<=40 U/L 07/08/2025 4:[address] [facility] LABORATORYBILIRUBIN,TOTAL0.80.3 - 1.2 mg/dL07/08/2025 4:[address] [facility]OR[facility]ORYEGFR Non- Race Dependent>90>=60 ml/min/1.73sq.m1 4:[address] [facility]ORATORYComment: Reported eGFR is based on the CKD-EPI 2020 equation that does not use a race coefficient. Specimen (Source)Anatomical Location / LateralityCollection Method / Volume Collection TimeReceived TimeBloodVenous blood / UnknownVenipuncture / Unknown 07/08/2025 3:14 AM EDT1 3:51 AM EDT Narrative Authorizing ProviderResult TypeResult StatusAhmed Deven Guzman MDLAB BLOOD ORDERABLESFinal ResultPerforming OrganizationAddressCity/State/ZIP CodePhone Number [facility] [address] [place] [address], [place] [phone] * (ABNORMAL) CBC auto differential (07/08/2025 3:14 AM EDT)ComponentValueRef RangeTest MethodAnalysis TimePerformed AtPathologist FxwlxadgiTGI76.3(H)4 - 11 x10E9/L1 4:[address] [facility] LABORATORYRBC Count4.46 4.1 - 5.7 X10E12/L1 4:[address] [facility] Twmpuwlcpc71.013 - 17 g/dL07/08/2025 4:[address] [facility] JNKSMUJRDCPlabilaofh19.239 - 50 %07/08/2025 4:[address] [facility] UTMYUQPHGEQAZ5262 - 100 fL07/08/2025 4:[address] [facility] CSRHJQQTSFSKQ05.127 - 34 pg07/08/2025 4:[address] [facility] GHHWKKXIHATOJH93.132 - 36 g/dL07/08/2025 4:[address] [facility] IRKBMPDPHIWYP26.411.5 - 15 %07/08/2025 4:[address] [facility] LABORATORYPlatelet Reuxb758709 - 450 X10E9/L1 4:13 AM EDT [facility] LABORATORYMPV7.77 - 12 fL07/08/2025 4:[address] [facility] LABORATORYNeutrophils %84.9%07/08/2025 4:[address] [facility] LABORATORYLymphocytes %5.3%07/08/2025 4:[address] [facility] LABORATORYMonocytes %9.7%07/08/2025 4:[address] [facility]ORATORYEosinophils %0.0%07/08/2025 4:[address] [facility] LABORATORYBasophils %0.1%07/08/2025 4:[address] [facility] LABORATORYNeutrophils Absolute (A)11.2(H)1.5 - 6.6 10*3/uL 07/08/2025 4:[address] [facility] LABORATORYLymphocytes Absolute 0.7(L)1.0 - 3.5 10*3/uL07/08/2025 4:[address] [facility] LABORATORYMonocytes Absolute1.3(H)0.0 - 0.9 10*3/uL07/08/2025 4:13 AM EDT [facility] LABORATORYEosinophils Absolute0.00.0 - 0.4 10*3/uL 07/08/2025 4:[address] [facility] LABORATORYBasophils Absolute0.0 0.0 - 0.2 10*3/uL07/08/2025 4:[address] [facility] Differential TypeAUTOMATED FLEZKOQIZSGA18/17/2025 4:[address] [facility] LABORATORYSpecimen (Source)Anatomical Location / LateralityCollection Method / VolumeCollection TimeReceived TimeBloodVenous blood / Unknown Venipuncture / Ljictwr7707/08/2025 3:14 AM EDT1 3:51 AM EDT Narrative Authorizing ProviderResult TypeResult StatusAhmed Deven Guzman MDLAB BLOOD ORDERABLESFinal ResultPerforming OrganizationAddressCity/State/ZIP CodePhone Number [facility] [address] [place] [address], * (ABNORMAL) Lipid profile (07/08/2025 3:14 AM EDT)ComponentValueRef RangeTest MethodAnalysis TimePerformed AtPathologist XssmjceqsGSPMXXFSMJM692(L)150 - 200 mg/dL07/08/2025 4:[address] [facility] UCBEINFRDKNQREBMRTYLUH2555 - 150 mg/dL07/08/2025 4:[address] [facility] LABORATORYHDL QZHHQXEMMQM02>39 mg/dL07/08/2025 4:[address] [facility] LABORATORYComment: HDL <40 mg/dL - High Risk HDL > or = 40mg/dL- Desirable HDL >60 mg/dL - Negative Risk LDL (CALC)51<130 mg/dL07/08/2025 4:[address] [facility] Comment: LDL <100 mg/dL - Desirable LDL >160 mg/dL - High Risk CHOLESTEROL:HDL2.31.0 - 5.010 4:[address] [facility] LABORATORYVERY LOW UAGIBJZYDRH115 - 30 mg/dL07/08/2025 4:[address] [facility] LABORATORYSpecimen (Source)Anatomical Location / Laterality Collection Method / VolumeCollection TimeReceived TimeBloodVenous blood / UnknownVenipuncture / Prburdo9307/08/2025 3:14 AM EDT1 3:51 AM EDT Narrative Authorizing ProviderResult TypeResult StatusKhaled Vicente BAKER BLOOD ORDERABLESFinal ResultPerforming OrganizationAddressCity/State/ZIP CodePhone Number [facility] [address] [place] [address], [place] [phone] * MR brain without contrast (07/07/2025 9:02 PM EDT)Anatomical RegionLaterality ModalityNeuro, Head, Head and Neck, Neuro CoveraN/AMagnetic ResonanceSpecimen (Source)Anatomical Location / LateralityCollection Method / VolumeCollection TimeReceived Time07/07/2025 9:08 PM EDT Narrative 07/07/2025 9:12 PM EDT MRI brain: HISTORY: Mental status changes. CVA. Multisequence multiplanar imaging of the brain was obtained and compared to previous CT brain dated1. Comparison also made to prior MRI dated 06/10/2020. The diffusion-weighted images show diffusion restriction throughout the right frontal and parietal cortex consistent with acute to subacute ischemia primarily distribution of the right MCA. Left cerebral hemisphere shows no appreciable diffusion restriction. Small foci effusion restriction within the parietal periventricular white matter. Susceptibility weighted images show a small region of blooming within the right parietal lobe, likely petechial hemorrhagic transformation. No intracranial mass or midline shift. Basilar cisterns are patent. Chronic ischemic changes also noted. Ventricles nondilated. IMPRESSION: Acute to subacute right frontal and parietal cortical ischemia with small region of the right parietal petechial hemorrhagic transformation. Finalized by Mich Diaz MD on 07/07/2025 9:12 PM Procedure Note Mich Diaz MD - 07/07/2025 MRI brain: HISTORY: Mental status changes. CVA. Multisequence multiplanar imaging of the brain was obtained and comparedto previous CT brain dated 07/07/2025. Comparison also made to prior MRIdated 06/10/2020. The diffusion-weighted images show diffusion restrictionthroughout the right frontal and parietal cortex consistent with acute to subacute ischemia primarily distribution of the right MCA. Left cerebral hemisphere shows no appreciable diffusion restriction. Small foci effusion restriction within the parietal periventricular white matter.Susceptibility weighted images show a small region of blooming within theright parietal lobe, likely petechial hemorrhagic transformation. No intracranial mass or midline shift. Basilar cisterns are patent. Chronic ischemic changes alsonoted. Ventricles nondilated. IMPRESSION: Acute to subacute right frontal and parietal cortical ischemia with smallregion of the right parietal petechial hemorrhagic transformation. Finalized by Mich Diaz MD on 07/07/2025 9:12 PM Authorizing ProviderResult TypeResult StatusKhalesonia Shanesonyajessica [facility] MRI ORDERABLESFinal Result * X-ray chest 1 view (07/07/2025 6:56 PM EDT)Anatomical RegionLateralityModality Body, ChestN/AComputed RadiographySpecimen (Source)Anatomical Location / LateralityCollection Method / VolumeCollection TimeReceived Time07/07/2025 7:20 PM EDT Narrative 07/07/2025 7:20 PM EDT Single view chest History: Difficulty breathing, shortness of breath Comparison: 03/08/2022 Impression: No acute pulmonary process. ??No pneumothorax or pleural effusion. Nonenlarged heart. Finalized by Mark Anthony MD on 07/07/2025 7:20 PM Procedure Note Mark Anthony MD - 07/07/2025 Single view chest History: Difficulty breathing, shortness of breath Comparison: 03/08/2022 Impression: No acute pulmonary process. No pneumothorax or pleural effusion. Nonenlarged heart. Finalized by Mark Anthony MD on 07/07/2025 7:20 PM Authorizing ProviderResult TypeResult StatusAhmed A Amadou Guzman MDIMDemetrius DIAGNOSTIC IMAGING ORDERABLESFinal Result * ECG 12 lead (07/07/2025 5:35 PM EDT)Specimen (Source)Anatomical Location / LateralityCollection Method / VolumeCollection TimeReceived Time07/07/2025 5:35 PM EDT Narrative TRACEMASTERVUE - 07/07/2025 5:52 PM EDT Authorizing ProviderResult TypeResult StatusErick A Amadou TAYLORG ORDERABLES Final ResultPerforming OrganizationAddressCity/State/ZIP CodePhone Number TRACEMASTERVUE * B-type natriuretic peptide (07/07/2025 3:49 PM EDT)ComponentValueRef RangeTest MethodAnalysis TimePerformed AtPathologist ZqtlsslciWDH70<=100 pg/mL07/07/2025 6:[address] [facility] LABORATORYSpecimen (Source)Anatomical Location / LateralityCollection Method / VolumeCollection TimeReceived Time BloodVenous blood / UnknownVenipuncture / Gwvvixo0007/07/2025 3:49 PM EDT 07/07/2025 4:02 PM EDT Narrative Authorizing ProviderResult TypeResult StatusAhkellee Guzman MDLAB BLOOD ORDERABLESFinal ResultPerforming OrganizationAddressCity/State/ZIP CodePhone Number [facility] [address] [place] [address], [place] [phone] * (ABNORMAL) CBC auto differential (07/07/2025 3:49 PM EDT)ComponentValueRef RangeTest MethodAnalysis TimePerformed AtPathologist SignatureWBC9.54 - 11 x10E9/L1 4:[address] [facility] LABORATORYRBC Count4.53 4.1 - 5.7 X10E12/L10/ 4:[address] [facility] Qibhkigqzh80.313 - 17 g/dL07/07/2025 4:[address] [facility] HPAJBGHRSADdwyhcbkum90.039 - 50 %07/07/2025 4:[address] [facility] UARIBVTULMPSY6926 - 100 fL07/07/2025 4:[address] [facility] KJDVTECDTCUJC06.427 - 34 pg07/07/2025 4:[address] [facility] KMMTZQENEHZUGH53.432 - 36 g/dL07/07/2025 4: PM [facility] IITIGQJCUPOVA38.811.5 - 15 %07/07/2025 4:[address] [facility] LABORATORYPlatelet Axnbb727461 - 450 X10E9/L1 4:21 PM [facility] LABORATORYMPV7.57 - 12 fL07/07/2025 4:[address] [facility] LABORATORYNeutrophils %96.3%07/07/2025 4:[address] [facility] LABORATORYLymphocytes %2.4%07/07/2025 4:[address] [facility] LABORATORYMonocytes %0.9%07/07/2025 4:[address] [facility] LABORATORYEosinophils %0.1%07/07/2025 4:[address] [facility] LABORATORYBasophils %0.3%07/07/2025 4:[address] [facility] LABORATORYNeutrophils Absolute (A)9.2(H)1.5 - 6.6 10*3/uL 07/07/2025 4:[address] [facility] LABORATORYLymphocytes Absolute 0.2(L)1.0 - 3.5 10*3/uL07/07/2025 4:[address] [facility] LABORATORYMonocytes Absolute0.10.0 - 0.9 10*3/uL07/07/2025 4:[address] [facility] LABORATORYEosinophils Absolute0.00.0 - 0.4 10*3/uL07/07/2025 4:[address] [facility] LABORATORYBasophils Absolute0.00.0 - 0.2 10*3/uL07/07/2025 4:[address] [facility] LABORATORYDifferential TypeAUTOMATED BWLLZLKSQSOJ99/16/2025 4:[address] [facility] LABORATORYSpecimen (Source)Anatomical Location / LateralityCollection Method / VolumeCollection TimeReceived TimeBloodVenous blood / UnknownVenipuncture / Mhwnlci0007/07/2025 3:49 PM EDT1 4:02 PM EDT Narrative Authorizing ProviderResult TypeResult StatusKhaled Vicente YANGLAB BLOOD ORDERABLESFinal ResultPerforming OrganizationAddressCity/State/ZIP CodePhone Number [facility] [address] [place] [phone], * (ABNORMAL) Comprehensive metabolic panel (07/07/2025 3:49 PM EDT)Component ValueRef RangeTest MethodAnalysis TimePerformed AtPathologist SignatureSODIUM 117186 - 146 mmol/L1 4:[address] [facility] POTASSIUM3.93.5 - 5.0 mmol/L1 4:[address] [facility] OWWAZBJVYMEKCWRTMU16541 - 109 mmol/L1 4:[address] [facility] LABORATORYCARBON APSYOBG0550 - 32 mmol/L1 4:[address] [facility] LABORATORYANION GAP75 - 15 mmol/L1 4:35 PM EDT [facility] LABORATORYBLOOD UREA EWRWGBXN561 - 27 mg/dL07/07/2025 4:[address] [facility] LABORATORYCREATININE0.920.60 - 1.30 mg/dL 07/07/2025 4:[address] [facility] LABORATORYComment:METHOD TRACEABLE TO IDMS LAHXWXAJCQYLBXF006(H)65 - 99 mg/dL07/07/2025 4:35 PM EDT [facility] LABORATORYCALCIUM8.88.5 - 10.5 mg/dL07/07/2025 4:[address] [facility] LABORATORYTOTAL PROTEIN6.66.0 - 8.0 g/dL 07/07/2025 4:[address] [facility] LABORATORYALBUMIN4.03.2 - 5.3 g/dL07/07/2025 4:[address] [facility] LABORATORYALKALINE GEIJLRYXKCC1346 - 130 U/L1 4:[address] [facility] XFFHYQQCODBCQ86<=41 U/L1 4:[address] [facility] GASUWPIYZZQOT26<=40 U/L1 4:[address] [facility] LABORATORYBILIRUBIN,TOTAL0.70.3 - 1.2 mg/dL07/07/2025 4:[address] [facility] LABORATORYEGFR Non-Race Dependent>90>=60 ml/min/1.73sq.m 07/07/2025 4:[address] [facility] LABORATORYComment: Reported eGFR is based on the CKD-EPI 2020 equation that does not use a race coefficient. Specimen (Source)Anatomical Location / LateralityCollection Method / Volume Collection TimeReceived TimeBloodVenous blood / UnknownVenipuncture / Unknown 07/07/2025 3:49 PM EDT1 4:02 PM EDT Narrative Authorizing ProviderResult TypeResult StatusKhrafael BAKER BLOOD ORDERABLESFinal ResultPerforming OrganizationAddressCity/State/ZIP CodePhone Number [facility] [address] [place] [address], * (ABNORMAL) Hemoglobin A1c (07/07/2025 3:49 PM EDT)ComponentValueRef RangeTest MethodAnalysis TimePerformed AtPathologist SignatureHEMOGLOBIN A1C5.7(H)4.4 - 5.6 %07/07/2025 4:[address] [facility] LABORATORYComment: ?ADA Guidelines ?Result ?HgbA1c ? Normal : ? less than 5.7 % ? Prediabetes : ?5.7 % ??to 6.4 % Diabetes : > 6.4 % ?Use with caution in patients with abnormal hemoglobin variants as ??the half-life of red blood cells and in vivo glycation rates are ??affected. EST. AVERAGE USJRODD834qj/dL07/07/2025 4:[address] [facility] LABORATORYSpecimen (Source)Anatomical Location / LateralityCollection Method / VolumeCollection TimeReceived TimeBloodVenous blood / UnknownVenipuncture / Zwxoqff8807/07/2025 3:49 PM EDT1 4:02 PM EDT Narrative Authorizing ProviderResult TypeResult StatusRosibel Zhang VALAB BLOOD ORDERABLESFinal ResultPerforming OrganizationAddressCity/State/ZIP CodePhone Number [facility] [address] [place] [address], [place] [phone] * (ABNORMAL) Bedside Glucose *Place/Obtain serum glucose if >500 per glucometer. (07/07/2025 2:48 PM EDT)ComponentValueRef RangeTest MethodAnalysis Time Performed AtPathologist SignatureBedside Glucose (POC)117(H)65 - 99 mg/dL 07/07/2025 2:53 PM [facility] LABORATORYSpecimen (Source)Anatomical Location / LateralityCollection Method / VolumeCollection TimeReceived Time arterial/bocwolork71/16/2025 2:48 PM EDT1 2:53 PM EDT Narrative Authorizing ProviderResult TypeResult StatusCheco Aguilera [facility] TEST ORDERABLESFinal ResultPerforming OrganizationAddressCity/State/ZIP Code Phone Number [facility] [place] [address], * CT cerebral perfusion analysis (07/07/2025 2:38 PM EDT)Anatomical Region LateralityModalityNeuro, Vascular, Head and Neck, HeadN/AComputed Tomography Specimen (Source)Anatomical Location / LateralityCollection Method / Volume Collection TimeReceived Time07/07/2025 2:41 PM EDT Narrative 07/07/2025 2:[address] CEREBRAL PERF ANALYSIS CLINICAL INFORMATION:Stroke COMPARISON: None. PROCEDURE: CT brain perfusion study performed using IV contrast without complication. Examination was performed with postprocessing in the 3-D lab under concurrent supervision on an independent ??workstation. Parametric maps generated included mean transit time, cerebral blood volume and cerebral blood flow. Automated exposure control was utilized. All CT scans at this facility use dose modulation, iterative reconstruction, and/or weight based dosing when appropriate to reduce radiation dose to as low as reasonably achievable. FINDINGS: CBF < 30% Volume: 0 mL. TMax > 6.0 s Volume: 51 mL. Mismatch Volume: 51 mL. IMPRESSION: * ??Asymmetric decreased perfusion noted posterior fossa right greater than left temporal lobe regions. Finalized by Kishore Thomas MD on 07/07/2025 2:47 PM Procedure Note Kishore Thomas MD - 07/07/2025 CT CEREBRAL PERF ANALYSIS CLINICAL INFORMATION:Stroke COMPARISON: None. PROCEDURE: CT brain perfusion study performed using IV contrast without complication. Examination was performed with postprocessing in the 3-D labunder concurrent supervision on an independent workstation. Parametricmaps generated included mean transit time, cerebral blood volume andcerebral blood flow. Automated exposure control was utilized. All CT scans at this facility use dose modulation, iterative reconstruction, and/or weightbased dosing when appropriate to reduce radiation dose to as low asreasonably achievable. FINDINGS: CBF < 30% Volume: 0 mL. TMax > 6.0 s Volume: 51 mL. Mismatch Volume: 51 mL. IMPRESSION: * Asymmetric decreased perfusion noted posterior fossa right greater thanleft temporal lobe regions. Finalized by Kishore Thomas MD on 07/07/2025 2:47 PM Authorizing ProviderResult TypeResult StatusRosibel FOX CT ORDERABLES Final Result documented in this encounter Visit Diagnoses Diagnosis Stroke (cerebrum) ([facility])- Primary Unspecified cerebral artery occlusion with cerebral infarction Internal carotid artery stenosis, right documented in this encounter Admitting Diagnoses Diagnosis Stroke (cerebrum) ([facility]) Unspecified cerebral artery occlusion with cerebral infarction documented in this encounter Administered Medications Medication OrderMAR ActionAction DateDoseRateSite aspirin chewable tablet 81 mg 81 mg, oral, Daily, First dose on Sandra 07/07/25 at 1500 Given07/12/2025 8:38 AM EDT81 bxSwlxq2007/11/2025 7:54 AM EDT81 xvBzazq2007/10/2025 8:53 AM EDT81 mg barium sulfate (VARIBAR NECTAR) 40 % (w/v) suspension 10 mL 10 mL, oral, Once in imaging, contrast, barium sulfate (VARIBAR NECTAR) 40 % (w/v) suspension, Starting on Fri07/08/25 at 1348, For 1 dose barium sulfate (VARIBAR PUDDING) 40 % (w/v), 30% (w/w) oral paste 60 mL 60 mL, oral, Once in imaging, contrast, barium sulfate (VARIBAR PUDDING) 40 % (w/v), 30% (w/w) oralpaste, Starting on Fri07/08/25 at 1347, For 1 dose barium sulfate (VARIBAR THIN HONEY) 40 %(w/v), 29% (w/w)(1500 CPS) suspension 20 mL 20 mL, oral, Once in imaging, contrast, Radiology, Starting on Fri07/08/25 at 1348, For 1 dose barium sulfate (VARIBAR THIN) 81 % (w/w) powder 148 g 148 g, oral, Once in imaging, contrast, barium sulfate (VARIBAR THIN) 40 % (w/v) powder, Starting on Fri07/08/25 at 1348, For 1 dose budesonide (PULMICORT) nebulizer solution 0.5 mg 0.5 mg, nebulization, Every 12 hours, First dose (after last modification) on Fri07/08/25 at 0700,Rinse mouth after use. Given07/12/2025 8:38 AM EDT0.5 vmIiowu0507/11/2025 7:46 PM EDT0.5 mgGiven 07/11/2025 8:47 AM EDT0.5 mg budesonide (PULMICORT) nebulizer solution 1 mg 1 mg, nebulization, Every 12 hours, First dose on Sandra 07/07/25 at 2200, Rinse mouth after use. Given07/07/2025 10:00 PM EDT1 mg calcium gluconate 3,000 mg in sodium chloride 0.9 % 100 mL IVPB 3,000 mg, intravenous, at 130 mL/hr, Administer over 60 Minutes, As needed, for ionized calcium level less than 3 mg/dL, Starting on Sandra 07/07/25 at 1705, CALL PHYSICIAN if this dose is administered.Recheck ionized calcium 6 hours after infusion. Hold calcium replacement for phosphorus greater than 5.5 mg/dL. VESICANT (RED) calcium gluconate IVPB 1000 mg/50 mL (20 mg/mL premix) 1,000 mg, intravenous, at 50 mL/hr, Administer over 60 Minutes, As needed, for ionized calcium level 3.5 to 4.4 mg/dL, Starting on Sandra 07/07/25 at 1705, Recheck ionized calcium 6 hours after infusion. Hold calcium replacement for phosphorus greater than 5.5 mg/dL. VESICANT (RED) calcium gluconate IVPB 2000 mg/100 mL (20 mg/mL premix) 2,000 mg, intravenous, at 100 mL/hr, Administer over 60 Minutes, As needed, for ionized calcium level 3 to 3.4 mg/dL, Starting on Sandra 07/07/25 at 1705, Recheck ionized calcium 6 hours after infusion.Hold calcium replacement for phosphorus greater than 5.5 mg/dL. VESICANT (RED) diphenhydrAMINE (BENADRYL) injection 25 mg 25 mg, intravenous, As needed, if unable to complete pre-medication for previously documented contrast allergy, Starting on 07/09/25 at 1317, For 1 dose, Pre-Procedure (CV), Look-alike/sound-alike medication - verify indication for use. diphenhydrAMINE (BENADRYL) injection 50 mg 50 mg, intravenous, As needed, for previously documented contrast allergy, Starting on Fri07/08/25at 0757, Scheduling/ADT, Administer one hour prior to procedure Look-alike/sound-alike medication -verify indication for use. flu vac ts 2024(6 mo up)CD(PF) (FLUCELVAX TRI) injection syringe 0.5 mL 0.5 mL, intramuscular, During hospitalization, immunization, Starting on Fri07/12/25 at 1259, For 1 dose, Refer to Sanjuana for administration instructions. Do NOT administer in the gluteal muscle. Look-alike/sound-alike medication - verify indication for use. Hold if fever greater than 100.4 degrees Fahrenheit (38 C) or if the patient has severe acute cardiac or pulmonary episode that requires ICU. Shake well before use. Given07/12/2025 2:39 PM EDT0.5 mLRight Deltoid FLUoxetine (PROzac) capsule 10 mg 10 mg, oral, Daily, First dose on Fri07/12/25 at 0900, Look-alike/sound-alike medication - verify indication for use. Given07/12/2025 8:39 AM EDT10 mg heparin (porcine) injection 5,000 Units 5,000 Units, subcutaneous, Every 8 hours scheduled, First dose (after last modification) on Fri07/09/25 at 2000, Look-alike/sound-alike medication - verify indication for use. Observe for bleeding. Given07/12/2025 2:35 PM EDT5,000 UnitsAbdominal GgwklqKxyqs01/21/2025 6:05 AM EDT5,000 UnitsAbdominal VlsrtiVbsgk54/20/2025 9:56 PM EDT5,000 UnitsAbdominal Tissue hydrALAZINE (APRESOLINE) injection 10 mg 10 mg, intravenous, Every 6 hours PRN, high blood pressure, Starting on Fri07/08/25 at 1320, For systolic blood pressure greater than 160 mmHg Look-alike/sound-alike medication - verify indication for use. Administer IV doses as a slow IV push; maximum rate: 5 mg/minute. iohexoL (OMNIPAQUE) 350 mg iodine/mL injection 100 mL 100 mL, intravenous, Once in imaging, contrast, Starting on Fri07/07/25 at 1410, For 1 dose, VESICANT (RED) Given07/07/2025 2:11 PM SDF418 mL ipratropium-albuteroL (DUONEB) 0.5 mg-3 mg(2.5 mg base)/3 mL nebulizer solution 3 mL 3 mL, nebulization, Every 6 hours, First dose (after last modification) on Sandra 07/07/25 at 2000, Implement INPATIENT/ED Bronchodilator Clinical Practice Guidelines? Yes Given07/08/2025 10:10 AM EDT3 fIBjvee5407/08/2025 4:07 AM EDT3 mSYvjze1507/07/2025 10:04 PM EDT3 mL ipratropium-albuteroL (DUONEB) 0.5 mg-3 mg(2.5 mg base)/3 mL nebulizer solution 3 mL 3 mL, nebulization, Every 4 hours, First dose (after last modification) on Fri07/08/25 at 1200, Implement INPATIENT/ED Bronchodilator Clinical Practice Guidelines? Yes Given07/12/2025 3:33 PM EDT3 hWElfzg0907/12/2025 11:42 AM EDT3 fAQpuqq3607/12/2025 8:38 AM EDT3 mL magnesium sulfate IVPB 2000 mg/50 mL in iso-osmotic water (40 mg/mL premix) 2,000 mg, intravenous, at 25 mL/hr, Administer over 120 Minutes, As needed, for magnesium level 1.7to 1.9 mg/dL or ionized magnesium level 0.45 to 0.5 mmol/L, Starting on [facility] 07/07/25 at 1705, Use premix solution. Default to ionized magnesium level in cases where patient has both magnesium and ionized magnesium results. If administered, check ionized magnesium (or total magnesium if ionized magnesium unavailable) level 4 hours after infusion. magnesium sulfate IVPB 4000 mg/100 mL in iso-osmotic water (40 mg/mL premix) 4,000 mg, intravenous, at 25 mL/hr, Administer over 240 Minutes, As needed, for magnesium level 1.6mg/mL or less, or ionized magnesium level 0.44 mmol/L or less, Starting on [facility] 07/07/25 at 1705, Use premix solution. Default to ionized magnesium level in cases where patient has both magnesium and ionized magnesium results. If administered, check ionized magnesium (or total magnesium if ionized magnesium unavailable) level 4 hours after infusion. methylPREDNISolone sod suc(PF) (Solu-MEDROL) injection 125 mg 125 mg, intravenous, As needed, if unable to complete pre-medication for previously documented contrast allergy, Starting on 07/09/25 at 1317, For 1 dose, Pre-Procedure (CV), May alter blood glucose or insulin requirements. Look-alike/sound-alike medication - verify indication for use. midazolam (VERSED) injection 1 mg 1 mg, intravenous, Once as needed, anxiety, Starting on 07/09/25 at 1317, For 2 doses, Pre-Procedure (CV), Administer as needed for anxiety after consents signed and evaluated by physician. May repeat x1 in 2 minutes for anxiety., Indication: Other, Indication: anxiety polyethylene glycol (GLYCOLAX) packet 17 g 17 g, oral, Daily PRN, constipation, Starting on 07/08/25 at 2219, Look-alike/sound-alike medication - verify indication for use. Dissolve 1 packet (17 gm) in 8 ounces of water, juice, soda, coffee or tea. Given07/10/2025 2:23 PM EDT17 fPosnv5507/08/2025 11:47 PM EDT17 g potassium chloride (K-TAB,KLOR-CON) CR tablet 20-50 mEq 20-50 mEq, oral, As needed, for potassium replacement, Starting on Sandra 07/07/25 at 1705, Progress to oral potassium replacement when patient tolerating oral intake. If dose administered, recheck potassium level 4 hours after last dose. For potassium level 3.4 to 3.8 mmol/L and Serum Creatinine 1.2 or less=30 mEq. For potassium level 3.1 to 3.3 mmol/L and Serum Creatinine 1.2 or less=40 mEq. For potassium level 3 mmol/L or less and Serum Creatinine 1.2 or less=50 mEq. Forpotassium level 3.4 to 3.8 mmol/L and Serum Creatinine greater than 1.2=20 mEq. For potassium level 3.1 to 3.3 mmol/L and Serum Creatinine greater than 1.2=30 mEq. For potassium level 3 mmol/L or less and Serum Creatinine greater than 1.2=40 mEq. Do not crush or chew. potassium chloride (KAYCIEL) 20 mEq/15 mL solution 20-50 mEq 20-50 mEq, oral, As needed, potassium replacement, Starting on [facility] 07/07/25 at 1705, Progress to oral potassium replacement when patient tolerating oral intake. If dose administered, recheck potassium level 4 hours after last dose. For potassium level 3.4 to 3.8 mmol/L and Serum Creatinine 1.2 or less=30 mEq (22.5mL). For potassium level 3.1 to 3.3 mmol/L and Serum Creatinine 1.2 or less=40 mEq (30mL). For potassium level 3 mmol/L or less and Serum Creatinine 1.2 or less=50 mEq (37.5mL). For potassium level 3.4 to 3.8 mmol/L and Serum Creatinine greater than 1.2=20 mEq (15mL). For potassium level 3.1 to 3.3 mmol/L and Serum Creatinine greater than 1.2=30 mEq (22.5mL). For potassium level 3 m mol/L or less and Serum Creatinine greater than 1.2=40 mEq (30mL). Must dilute before use - Mix in 3-8 ounces of water or juice before administration When administering in feeding tube, flush before and after per policy and monitor potassium levels potassium chloride IVPB 10 mEq/100 mL in water (0.1 mEq/mL premix) 10 mEq, intravenous, at 100 mL/hr, Administer over 60 Minutes, As needed, for potassium replacement, Starting on [facility] 07/07/25 at 1705, Administer Potassium Chloride IVPB in 10 mEq increments. Maximuminfusion rates: Central Line = 20 mEq/hour; Peripheral Line = 10 mEq/hour (10 mEq/100 mL). If dose administered, recheck potassium level 1 hour after infusion complete. For potassium level 3.4 to 3.8mmol/L and Serum Creatinine 1.2 or less = 30 mEq For potassium level 3.1 to 3.3 mmol/L and Serum Creatinine 1.2 or less = 40 mEq For potassium level 3 mmol/L or less and Serum Creatinine 1.2 or less = 50 mEq For potassium level 3.4 to 3.8 mmol/L and Serum Creatinine greater than 1.2 = 20 mEq For potassium level 3.1 to 3.3 mmol/L and Serum Creatinine greater than 1.2 = 30 mEq For potassium level 3mmol/L or less and Serum Creatinine greater than 1.2 = 40 mEq VESICANT (YELLOW) Infuse each 10 mEq over a minimum of 1 hour. potassium chloride IVPB 10 mEq/50 mL in water (0.2 mEq/mL premix) 10 mEq, intravenous, at 50 mL/hr, Administer over 1 Hours, As needed, for potassium replacement, Starting on Sandra 07/07/25 at 1705, Administer Potassium Chloride IVPB in 10 mEq increments. Maximum infusion rates: Central Line = 20 mEq/hour. Administer via Central Line Only. If dose administered, recheck potassium level 1 hour after infusion complete. For potassium level 3.4 to 3.8 mmol/L and SerumCreatinine 1.2 or less = 30 mEq For potassium level 3.1 to 3.3 mmol/L and Serum Creatinine 1.2 or less = 40 mEq For potassium level 3 mmol/L or less and Serum Creatinine 1.2 or less = 50 mEq For potassium level 3.4 to 3.8 mmol/L and Serum Creatinine greater than 1.2 = 20 mEq For potassium level 3.1to 3.3 mmol/L and Serum Creatinine greater than 1.2 = 30 mEq For potassium level 3 mmol/L or less and Serum Creatinine greater than 1.2 = 40 mEq VESICANT (YELLOW) predniSONE (DELTASONE) tablet 50 mg 50 mg, oral, As needed, for pre-medication for previously documented contrast allergy, Starting on Fri07/08/25 at 0757, For 3 doses, Scheduling/ADT, Administer 50 mg at 13 hours, 7 hours, and 1 hourprior to procedure Food-Drug Interaction Education Required May alter blood glucose or insulin requirements Take/give with food Look-alike/sound-alike medication - verify indication for use. prochlorperazine (COMPAZINE) injection 5 mg 5 mg, intravenous, Every 6 hours PRN, nausea, vomiting, if patient unable to tolerate PO, Starting on 07/09/25 at 1955, When administered via IV Push, do not exceed 5 mg per minute Given07/09/2025 8:04 PM EDT5 mg prochlorperazine (COMPAZINE) injection 5 mg 5 mg, intramuscular, Every 8 hours PRN, nausea, vomiting, if patient unable to tolerate PO and doesnot have IV access, Starting on 07/09/25 at 1955, When administered via IV Push, do not exceed 5 mg per minute prochlorperazine (COMPAZINE) tablet 5 mg 5 mg, oral, Every 6 hours PRN, nausea, vomiting, Starting on 07/09/25 at 1955 rosuvastatin (CRESTOR) tablet 10 mg 10 mg, oral, Nightly, First dose on 07/11/25 at 2200, Look-alike/sound-alike medication - verify indication for use. Given07/11/2025 9:56 PM EDT10 mg sod phos di, mono-K phos mono (K-PHOS NEUTRAL) 250 mg tablet 2 tablet 2 tablet, oral, As needed, for phosphorous level 2.3 mg/dL or less, Starting on Sandra 07/07/25 at 1705, If dose administered, recheck phosphorus level 4 hours after last dose. Look-alike/sound-alike medication - verify indication for use. Give with a full glass of water. sodium chloride 0.9 % flush 10 mL 10 mL, intravenous, As needed, line care, Starting on Sandra 07/07/25 at 1410 Given07/07/2025 2:10 PM EDT10 mL sodium chloride 0.9 % flush 3 mL 3 mL, intravenous, As needed, line care, before and after each intermittent use, Starting on 07/09/25 at 1317, Pre-Procedure (CV) sodium chloride 0.9 % flush 3 mL 3 mL, intravenous, Every 12 hours, First dose on 07/09/25 at 1330, Pre- Procedure (CV) Given07/12/2025 8:41 AM EDT3 eNXlsqy7107/11/2025 9:56 PM EDT3 hEYihzy4707/11/2025 7:54 AM EDT3 mL sodium chloride 0.9 % infusion 75 mL/hr, intravenous, Continuous, Starting on 07/10/25 at 0230, For 12 hours New Bag07/10/2025 4:20 AM EDT75 mL/hr75 mL/hr sodium chloride 0.9 % radiology injection 80 mL, intravenous, Once in imaging, pre/post contrast, Starting on Sandra 07/07/25 at 1410, For 1 dose Given07/07/2025 2:11 PM EDT80 mL sodium phosphate 20 mmol in sodium chloride 0.9 % 100 mL IVPB 20 mmol, intravenous, at 26.7 mL/hr, Administer over 4 Hours, As needed, for phosphorous level 2.3 mg/dL or less, Starting on Sandra 07/07/25 at 1705, Administer over 4 hours via dedicated line(central line). If administered, recheck phosphorus level 4 hours after infusion complete. Infuse using central line access. sodium phosphate 20 mmol in sodium chloride 0.9 % 250 mL IVPB 20 mmol, intravenous, at 42.8 mL/hr, Administer over 6 Hours, As needed, for phosphorous level 2.3 mg/dL or less, Starting on Sandra 07/07/25 at 1705, Administer over 6 hours via dedicated line (peripheral line). If administered, recheck phosphorus level 4 hours after infusion complete. ticagrelor (BRILINTA) tablet 180 mg 180 mg, oral, Once, On Sandra 07/07/25 at 1500, For 1 dose Given07/07/2025 3:12 PM AFV488 mg ticagrelor (BRILINTA) tablet 90 mg 90 mg, oral, Every 12 hours, First dose on Fri07/08/25 at 0300 Given07/12/2025 6:05 AM EDT90 dmDnpoh5607/11/2025 1:49 PM EDT90 oyTsttj6507/11/2025 3:00 AM EDT90 mg traZODone (DESYREL) tablet 50 mg 50 mg, oral, Nightly, First dose on Fri07/08/25 at 2315, Look-alike/sound-alike medication - verify indication for use. Given07/11/2025 9:56 PM EDT50 dpHxzhb1907/10/2025 9:33 PM EDT50 pbUnjtt9707/09/2025 10:59 PM EDT50 mgdocumented in this encounter Active and Recently Administered Medications Times are shown in EDT.Medication Order// aspirin chewable tablet 81 mg 81 mg, oral, Daily, First dose on Sandra 07/07/25 at 1500 * 0834 (Given - Provider: Julianne Lopes RN) * 0754 (Given - Provider: Chucho Branch RN) * 0838 (Given - Provider: Chucho Branch RN) budesonide (PULMICORT) nebulizer solution 0.5 mg 0.5 mg, nebulization, Every 12 hours, First dose (after last modification) on Fri07/08/25 at 0700,Rinse mouth after use. * 0857 (Not Given - Provider: Steven Sheikh JOURNEY[employer]EVEL [employer]OU[employer]IC ANALYST - Reason: Patient/family refused) * 1143 (Given - Provider: Steven Sheikh JOURNEYMAN LEVEL ACOUSTIC ANALYST) * 1949 (Given - Provider: Mary Cerda JOURNEYMAN LEVEL ACOUSTIC ANALYST) * 0847 (Given - Provider: Didi Perez JOURNEYMAN LEVEL ACOUSTIC ANALYST) * 1946 (Given - Provider: Foster Martin JOURNEYMAN LEVEL ACOUSTIC ANALYST) * 0838 (Given - Provider: Emelyn Pabon JOURNEYMAN LEVEL ACOUSTIC ANALYST) FLUoxetine (PROzac) capsule 10 mg 10 mg, oral, Daily, First dose on Fri07/12/25 at 0900, Look-alike/sound-alike medication - verify indication for use. * 0839 (Given - Provider: Chucho Branch RN) heparin (porcine) injection 5,000 Units 5,000 Units, subcutaneous, Every 8 hours scheduled, First dose (after last modification) on Fri07/09/25 at 2000, Look-alike/sound-alike medication - verify indication for use. Observe for bleeding. * 0614 (Given - Provider: Partha Nance RN) * 1422 (Given - Provider: Julianne Lopes RN) * 2133 (Given - Provider: Partha Nance RN) * 0542 (Given - Provider: Lashawn Dao RN) * 1348 (Given - Provider: Chucho Branch, RAJEEV) * 2156 (Given - Provider: Partha Randhawa RN) * 0605 (Given - Provider: Partha Randhawa RN) * 1435 (Given - Provider: Chucho Branch RN) ipratropium-albuteroL (DUONEB) 0.5 mg-3 mg(2.5 mg base)/3 mL nebulizer solution 3 mL 3 mL, nebulization, Every 4 hours, First dose (after last modification) on Fri07/08/25 at 1200, Implement INPATIENT/ED Bronchodilator Clinical Practice Guidelines? Yes * 0313 (Given - Provider: Deepthi Perez [facility]) * 0857 (Not Given - Provider: Steven Sheikh [facility] - Reason: Patient/family refused) * 1143 (Given - Provider: Steven Sheikh [facility]) * 1549 (Given - Provider: Steven Sheikh [facility]) * 1949 (Given - Provider: Mary Cerda [facility]) * 2353 (Given - Provider: Mary Cerda [facility]) * 0342 (Given - Provider: Mary Cerda [facility]) * 0847 (Given - Provider: Didi Perez [facility]) * 1225 (Given - Provider: Didi Perez [facility]) * 1621 (Given - Provider: Didi Perez [facility]) * 1946 (Given - Provider: Foster Martin [facility]) * 2324 (Given - Provider: Foster Martin [facility]) * 0306 (Given - Provider: Foster Martin [facility]) * 0838 (Given - Provider: Emelyn Pabon [facility]) * 1142 (Given - Provider: Emelyn Pabon [facility]) * 1533 (Given - Provider: Emelyn Pabon [facility]) rosuvastatin (CRESTOR) tablet 10 mg 10 mg, oral, Nightly, First dose on Fri07/11/25 at 2200, Look-alike/sound-alike medication - verify indication for use. * 2156 (Given - Provider: Partha Randhawa RN) sodium chloride 0.9 % flush 3 mL 3 mL, intravenous, Every 12 hours, First dose on Fri07/09/25 at 1330, Pre- Procedure (CV) * 0853 (Given - Provider: Julianne Lopes RN) * 2100 (Given - Provider: Partha Nance RN) * 0754 (Given - Provider: Chucho Branch, RAJEEV) * 2156 (Given - Provider: Partha Randhawa RN) * 0841 (Given - Provider: Chucho Branch, RAJEEV) ticagrelor (BRILINTA) tablet 90 mg 90 mg, oral, Every 12 hours, First dose on Fri07/08/25 at 0300 * 0420 (Given - Provider: Partha Nance RN - Comment: pt care) * 1423 (Given - Provider: Julianne Lopes RN) * 0300 (Given - Provider: Partha Nance RN) * 1349 (Given - Provider: Chucho Branch, RAJEEV) * 0605 (Given - Provider: Partha Randhawa RN) traZODone (DESYREL) tablet 50 mg 50 mg, oral, Nightly, First dose on Fri07/08/25 at 2315, Look-alike/sound-alike medication - verify indication for use. * 2133 (Given - Provider: Partha Nance RN) * 2156 (Given - Provider: Partha Randhawa RN) Medication Order/// sodium chloride 0.9 % infusion () 75 mL/hr, intravenous, Continuous, Starting on Fri07/10/25 at 0230, For 12 hours * 0420 (New Bag - Provider: Partha Nance RN) * 1619 (Stop Bag - Provider: Leonardo Cabrera RN - Comment: [Order ends at this time. Document the following action when infusion is complete: Stop Bag]) Medication Order// barium sulfate (VARIBAR NECTAR) 40 % (w/v) suspension 10 mL 10 mL, oral, Once in imaging, contrast, barium sulfate (VARIBAR NECTAR) 40 % (w/v) suspension, Starting on Fri07/08/25 at 1348, For 1 dose barium sulfate (VARIBAR PUDDING) 40 % (w/v), 30% (w/w) oral paste 60 mL 60 mL, oral, Once in imaging, contrast, barium sulfate (VARIBAR PUDDING) 40 % (w/v), 30% (w/w) oralpaste, Starting on Fri07/08/25 at 1347, For 1 dose barium sulfate (VARIBAR THIN HONEY) 40 %(w/v), 29% (w/w)(1500 CPS) suspension 20 mL 20 mL, oral, Once in imaging, contrast, Radiology, Starting on Fri07/08/25 at 1348, For 1 dose barium sulfate (VARIBAR THIN) 81 % (w/w) powder 148 g 148 g, oral, Once in imaging, contrast, barium sulfate (VARIBAR THIN) 40 % (w/v) powder, Starting on Fri07/08/25 at 1348, For 1 dose calcium gluconate 3,000 mg in sodium chloride 0.9 % 100 mL IVPB(Linked Group 1) 3,000 mg, intravenous, at 130 mL/hr, Administer over 60 Minutes, As needed, for ionized calcium level less than 3 mg/dL, Starting on Sandra 07/07/25 at 1705, CALL PHYSICIAN if this dose is administered.Recheck ionized calcium 6 hours after infusion. Hold calcium replacement for phosphorus greater than 5.5 mg/dL. VESICANT (RED) calcium gluconate IVPB 1000 mg/50 mL (20 mg/mL premix)(Linked Group 1) 1,000 mg, intravenous, at 50 mL/hr, Administer over 60 Minutes, As needed, for ionized calcium level 3.5 to 4.4 mg/dL, Starting on Sandra 07/07/25 at 1705, Recheck ionized calcium 6 hours after infusion. Hold calcium replacement for phosphorus greater than 5.5 mg/dL. VESICANT (RED) calcium gluconate IVPB 2000 mg/100 mL (20 mg/mL premix)(Linked Group 1) 2,000 mg, intravenous, at 100 mL/hr, Administer over 60 Minutes, As needed, for ionized calcium level 3 to 3.4 mg/dL, Starting on Sandra 07/07/25 at 1705, Recheck ionized calcium 6 hours after infusion.Hold calcium replacement for phosphorus greater than 5.5 mg/dL. VESICANT (RED) diphenhydrAMINE (BENADRYL) injection 25 mg(Linked Group 2) 25 mg, intravenous, As needed, if unable to complete pre-medication for previously documented contrast allergy, Starting on 07/09/25 at 1317, For 1 dose, Pre-Procedure (CV), Look-alike/sound-alike medication - verify indication for use. diphenhydrAMINE (BENADRYL) injection 50 mg(Linked Group 3) 50 mg, intravenous, As needed, for previously documented contrast allergy, Starting on Fri07/08/25at 0757, Scheduling/ADT, Administer one hour prior to procedure Look-alike/sound-alike medication -verify indication for use. flu vac ts 2024(6 mo up)CD(PF) (FLUCELVAX TRI) injection syringe 0.5 mL (COMPLETED) 0.5 mL, intramuscular, During hospitalization, immunization, Starting on Fri07/12/25 at 1259, For 1 dose, Refer to Sanjuana for administration instructions. Do NOT administer in the gluteal muscle. Look-alike/sound-alike medication - verify indication for use. Hold if fever greater than 100.4 degrees Fahrenheit (38 C) or if the patient has severe acute cardiac or pulmonary episode that requires ICU. Shake well before use. * 1439 (Given - Provider: Chucho Branch RN) hydrALAZINE (APRESOLINE) injection 10 mg 10 mg, intravenous, Every 6 hours PRN, high blood pressure, Starting on Fri07/08/25 at 1320, For systolic blood pressure greater than 160 mmHg Look-alike/sound-alike medication - verify indication for use. Administer IV doses as a slow IV push; maximum rate: 5 mg/minute. magnesium sulfate IVPB 2000 mg/50 mL in iso-osmotic water (40 mg/mL premix) (Linked Group 4) 2,000 mg, intravenous, at 25 mL/hr, Administer over 120 Minutes, As needed, for magnesium level 1.7to 1.9 mg/dL or ionized magnesium level 0.45 to 0.5 mmol/L, Starting on Fri07/07/25 at 1705, Use premix solution. Default to ionized magnesium level in cases where patient has both magnesium and ionized magnesium results. If administered, check ionized magnesium (or total magnesium if ionized magnesium unavailable) level 4 hours after infusion. magnesium sulfate IVPB 4000 mg/100 mL in iso-osmotic water (40 mg/mL premix) (Linked Group 4) 4,000 mg, intravenous, at 25 mL/hr, Administer over 240 Minutes, As needed, for magnesium level 1.6mg/mL or less, or ionized magnesium level 0.44 mmol/L or less, Starting on Fri07/07/25 at 1705, Use premix solution. Default to ionized magnesium level in cases where patient has both magnesium and ionized magnesium results. If administered, check ionized magnesium (or total magnesium if ionized magnesium unavailable) level 4 hours after infusion. methylPREDNISolone sod suc(PF) (Solu-MEDROL) injection 125 mg(Linked Group 2) 125 mg, intravenous, As needed, if unable to complete pre-medication for previously documented contrast allergy, Starting on 07/09/25 at 1317, For 1 dose, Pre-Procedure (CV), May alter blood glucose or insulin requirements. Look-alike/sound-alike medication - verify indication for use. midazolam (VERSED) injection 1 mg 1 mg, intravenous, Once as needed, anxiety, Starting on 07/09/25 at 1317, For 2 doses, Pre-Procedure (CV), Administer as needed for anxiety after consents signed and evaluated by physician. May repeat x1 in 2 minutes for anxiety., Indication: Other, Indication: anxiety polyethylene glycol (GLYCOLAX) packet 17 g 17 g, oral, Daily PRN, constipation, Starting on Fri07/08/25 at 2219, Look-alike/sound-alike medication - verify indication for use. Dissolve 1 packet (17 gm) in 8 ounces of water, juice, soda, coffee or tea. * 1423 (Given - Provider: Julianne Lopes RN) potassium chloride (K-TAB,KLOR-CON) CR tablet 20-50 mEq(Linked Group 5) 20-50 mEq, oral, As needed, for potassium replacement, Starting on Sandra 07/07/25 at 1705, Progress to oral potassium replacement when patient tolerating oral intake. If dose administered, recheck potassium level 4 hours after last dose. For potassium level 3.4 to 3.8 mmol/L and Serum Creatinine 1.2 or less=30 mEq. For potassium level 3.1 to 3.3 mmol/L and Serum Creatinine 1.2 or less=40 mEq. For potassium level 3 mmol/L or less and Serum Creatinine 1.2 or less=50 mEq. Forpotassium level 3.4 to 3.8 mmol/L and Serum Creatinine greater than 1.2=20 mEq. For potassium level 3.1 to 3.3 mmol/L and Serum Creatinine greater than 1.2=30 mEq. For potassium level 3 mmol/L or less and Serum Creatinine greater than 1.2=40 mEq. Do not crush or chew. potassium chloride (KAYCIEL) 20 mEq/15 mL solution 20-50 mEq(Linked Group 5) 20-50 mEq, oral, As needed, potassium replacement, Starting on Sandra 07/07/25 at 1705, Progress to oral potassium replacement when patient tolerating oral intake. If dose administered, recheck potassium level 4 hours after last dose. For potassium level 3.4 to 3.8 mmol/L and Serum Creatinine 1.2 or less=30 mEq (22.5mL). For potassium level 3.1 to 3.3 mmol/L and Serum Creatinine 1.2 or less=40 mEq (30mL). For potassium level 3 mmol/L or less and Serum Creatinine 1.2 or less=50 mEq (37.5mL). For potassium level 3.4 to 3.8 mmol/L and Serum Creatinine greater than 1.2=20 mEq (15mL). For potassium level 3.1 to 3.3 mmol/L and Serum Creatinine greater than 1.2=30 mEq (22.5mL). For potassium level 3 m mol/L or less and Serum Creatinine greater than 1.2=40 mEq (30mL). Must dilute before use - Mix in 3-8 ounces of water or juice before administration When administering in feeding tube, flush before and after per policy and monitor potassium levels potassium chloride IVPB 10 mEq/100 mL in water (0.1 mEq/mL premix)(Linked Group 6) 10 mEq, intravenous, at 100 mL/hr, Administer over 60 Minutes, As needed, for potassium replacement, Starting on Sandra 07/07/25 at 1705, Administer Potassium Chloride IVPB in 10 mEq increments. Maximuminfusion rates: Central Line = 20 mEq/hour; Peripheral Line = 10 mEq/hour (10 mEq/100 mL). If dose administered, recheck potassium level 1 hour after infusion complete. For potassium level 3.4 to 3.8mmol/L and Serum Creatinine 1.2 or less = 30 mEq For potassium level 3.1 to 3.3 mmol/L and Serum Creatinine 1.2 or less = 40 mEq For potassium level 3 mmol/L or less and Serum Creatinine 1.2 or less = 50 mEq For potassium level 3.4 to 3.8 mmol/L and Serum Creatinine greater than 1.2 = 20 mEq For potassium level 3.1 to 3.3 mmol/L and Serum Creatinine greater than 1.2 = 30 mEq For potassium level 3mmol/L or less and Serum Creatinine greater than 1.2 = 40 mEq VESICANT (YELLOW) Infuse each 10 mEq over a minimum of 1 hour. potassium chloride IVPB 10 mEq/50 mL in water (0.2 mEq/mL premix)(Linked Group 6) 10 mEq, intravenous, at 50 mL/hr, Administer over 1 Hours, As needed, for potassium replacement, Starting on Sandra 07/07/25 at 1705, Administer Potassium Chloride IVPB in 10 mEq increments. Maximum infusion rates: Central Line = 20 mEq/hour. Administer via Central Line Only. If dose administered, recheck potassium level 1 hour after infusion complete. For potassium level 3.4 to 3.8 mmol/L and SerumCreatinine 1.2 or less = 30 mEq For potassium level 3.1 to 3.3 mmol/L and Serum Creatinine 1.2 or less = 40 mEq For potassium level 3 mmol/L or less and Serum Creatinine 1.2 or less = 50 mEq For potassium level 3.4 to 3.8 mmol/L and Serum Creatinine greater than 1.2 = 20 mEq For potassium level 3.1to 3.3 mmol/L and Serum Creatinine greater than 1.2 = 30 mEq For potassium level 3 mmol/L or less and Serum Creatinine greater than 1.2 = 40 mEq VESICANT (YELLOW) predniSONE (DELTASONE) tablet 50 mg(Linked Group 3) 50 mg, oral, As needed, for pre-medication for previously documented contrast allergy, Starting on Fri07/08/25 at 0757, For 3 doses, Scheduling/ADT, Administer 50 mg at 13 hours, 7 hours, and 1 hourprior to procedure Food-Drug Interaction Education Required May alter blood glucose or insulin requirements Take/give with food Look-alike/sound-alike medication - verify indication for use. prochlorperazine (COMPAZINE) injection 5 mg(Linked Group 7) 5 mg, intravenous, Every 6 hours PRN, nausea, vomiting, if patient unable to tolerate PO, Starting on 07/09/25 at 1955, When administered via IV Push, do not exceed 5 mg per minute prochlorperazine (COMPAZINE) injection 5 mg(Linked Group 7) 5 mg, intramuscular, Every 8 hours PRN, nausea, vomiting, if patient unable to tolerate PO and doesnot have IV access, Starting on 07/09/25 at 1955, When administered via IV Push, do not exceed 5 mg per minute prochlorperazine (COMPAZINE) tablet 5 mg(Linked Group 7) 5 mg, oral, Every 6 hours PRN, nausea, vomiting, Starting on 07/09/25 at 1955 sod phos di, mono-K phos mono (K-PHOS NEUTRAL) 250 mg tablet 2 tablet(Linked Group 8) 2 tablet, oral, As needed, for phosphorous level 2.3 mg/dL or less, Starting on Sandra 07/07/25 at 1705, If dose administered, recheck phosphorus level 4 hours after last dose. Look-alike/sound-alike medication - verify indication for use. Give with a full glass of water. sodium chloride 0.9 % flush 10 mL 10 mL, intravenous, As needed, line care, Starting on Sandra 07/07/25 at 1410 sodium chloride 0.9 % flush 3 mL 3 mL, intravenous, As needed, line care, before and after each intermittent use, Starting on 07/09/25 at 1317, Pre-Procedure (CV) sodium phosphate 20 mmol in sodium chloride 0.9 % 100 mL IVPB(Linked Group 8) 20 mmol, intravenous, at 26.7 mL/hr, Administer over 4 Hours, As needed, for phosphorous level 2.3 mg/dL or less, Starting on Sandra 07/07/25 at 1705, Administer over 4 hours via dedicated line(central line). If administered, recheck phosphorus level 4 hours after infusion complete. Infuse using central line access. sodium phosphate 20 mmol in sodium chloride 0.9 % 250 mL IVPB(Linked Group 8) 20 mmol, intravenous, at 42.8 mL/hr, Administer over 6 Hours, As needed, for phosphorous level 2.3 mg/dL or less, Starting on Sandra 07/07/25 at 1705, Administer over 6 hours via dedicated line (peripheral line). If administered, recheck phosphorus level 4 hours after infusion complete. Order Group 1: calcium gluconate IVPB 1000 mg/50 mL (20 mg/mL premix)Jump to med 1,000 mg, intravenous, at 50 mL/hr, Administer over 60 Minutes, As needed, for ionized calcium level 3.5 to 4.4 mg/dL, Starting on Sandra 07/07/25 at 1705, Recheck ionized calcium 6 hours after infusion. Hold calcium replacement for phosphorus greater than 5.5 mg/dL. VESICANT (RED) Or calcium gluconate IVPB 2000 mg/100 mL (20 mg/mL premix)Jump to med 2,000 mg, intravenous, at 100 mL/hr, Administer over 60 Minutes, As needed, for ionized calcium level 3 to 3.4 mg/dL, Starting on Sandra 07/07/25 at 1705, Recheck ionized calcium 6 hours after infusion.Hold calcium replacement for phosphorus greater than 5.5 mg/dL. VESICANT (RED) Or calcium gluconate 3,000 mg in sodium chloride 0.9 % 100 mL IVPBJump to med 3,000 mg, intravenous, at 130 mL/hr, Administer over 60 Minutes, As needed, for ionized calcium level less than 3 mg/dL, Starting on Sandra 07/07/25 at 1705, CALL PHYSICIAN if this dose is administered.Recheck ionized calcium 6 hours after infusion. Hold calcium replacement for phosphorus greater than 5.5 mg/dL. VESICANT (RED) Group 2: methylPREDNISolone sod suc(PF) (Solu-MEDROL) injection 125 mgJump to med 125 mg, intravenous, As needed, if unable to complete pre-medication for previously documented contrast allergy, Starting on 07/09/25 at 1317, For 1 dose, Pre-Procedure (CV), May alter blood glucose or insulin requirements. Look-alike/sound-alike medication - verify indication for use. And diphenhydrAMINE (BENADRYL) injection 25 mgJump to med 25 mg, intravenous, As needed, if unable to complete pre-medication for previously documented contrast allergy, Starting on 07/09/25 at 1317, For 1 dose, Pre-Procedure (CV), Look-alike/sound-alike medication - verify indication for use. Group 3: predniSONE (DELTASONE) tablet 50 mgJump to med 50 mg, oral, As needed, for pre-medication for previously documented contrast allergy, Starting on Fri07/08/25 at 0757, For 3 doses, Scheduling/ADT, Administer 50 mg at 13 hours, 7 hours, and 1 hourprior to procedure Food-Drug Interaction Education Required May alter blood glucose or insulin requirements Take/give with food Look-alike/sound-alike medication - verify indication for use. And diphenhydrAMINE (BENADRYL) injection 50 mgJump to med 50 mg, intravenous, As needed, for previously documented contrast allergy, Starting on Fri07/08/25at 0757, Scheduling/ADT, Administer one hour prior to procedure Look-alike/sound-alike medication -verify indication for use. Group 4: magnesium sulfate IVPB 2000 mg/50 mL in iso-osmotic water (40 mg/mL premix)Jump to med 2,000 mg, intravenous, at 25 mL/hr, Administer over 120 Minutes, As needed, for magnesium level 1.7to 1.9 mg/dL or ionized magnesium level 0.45 to 0.5 mmol/L, Starting on Sandra 07/07/25 at 1705, Use premix solution. Default to ionized magnesium level in cases where patient has both magnesium and ionized magnesium results. If administered, check ionized magnesium (or total magnesium if ionized magnesium unavailable) level 4 hours after infusion. Or magnesium sulfate IVPB 4000 mg/100 mL in iso-osmotic water (40 mg/mL premix)Jump to med 4,000 mg, intravenous, at 25 mL/hr, Administer over 240 Minutes, As needed, for magnesium level 1.6mg/mL or less, or ionized magnesium level 0.44 mmol/L or less, Starting on Sandra 07/07/25 at 1705, Use premix solution. Default to ionized magnesium level in cases where patient has both magnesium and ionized magnesium results. If administered, check ionized magnesium (or total magnesium if ionized magnesium unavailable) level 4 hours after infusion. Group 5: potassium chloride (K-TAB,KLOR-CON) CR tablet 20-50 mEqJump to med 20-50 mEq, oral, As needed, for potassium replacement, Starting on Sandra 07/07/25 at 1705, Progress to oral potassium replacement when patient tolerating oral intake. If dose administered, recheck potassium level 4 hours after last dose. For potassium level 3.4 to 3.8 mmol/L and Serum Creatinine 1.2 or less=30 mEq. For potassium level 3.1 to 3.3 mmol/L and Serum Creatinine 1.2 or less=40 mEq. For potassium level 3 mmol/L or less and Serum Creatinine 1.2 or less=50 mEq. Forpotassium level 3.4 to 3.8 mmol/L and Serum Creatinine greater than 1.2=20 mEq. For potassium level 3.1 to 3.3 mmol/L and Serum Creatinine greater than 1.2=30 mEq. For potassium level 3 mmol/L or less and Serum Creatinine greater than 1.2=40 mEq. Do not crush or chew. Or potassium chloride (KAYCIEL) 20 mEq/15 mL solution 20-50 mEqJump to med 20-50 mEq, oral, As needed, potassium replacement, Starting on Sandra 07/07/25 at 1705, Progress to oral potassium replacement when patient tolerating oral intake. If dose administered, recheck potassium level 4 hours after last dose. For potassium level 3.4 to 3.8 mmol/L and Serum Creatinine 1.2 or less=30 mEq (22.5mL). For potassium level 3.1 to 3.3 mmol/L and Serum Creatinine 1.2 or less=40 mEq (30mL). For potassium level 3 mmol/L or less and Serum Creatinine 1.2 or less=50 mEq (37.5mL). For potassium level 3.4 to 3.8 mmol/L and Serum Creatinine greater than 1.2=20 mEq (15mL). For potassium level 3.1 to 3.3 mmol/L and Serum Creatinine greater than 1.2=30 mEq (22.5mL). For potassium level 3 m mol/L or less and Serum Creatinine greater than 1.2=40 mEq (30mL). Must dilute before use - Mix in 3-8 ounces of water or juice before administration When administering in feeding tube, flush before and after per policy and monitor potassium levels Group 6: potassium chloride IVPB 10 mEq/50 mL in water (0.2 mEq/mL premix)Jump to med 10 mEq, intravenous, at 50 mL/hr, Administer over 1 Hours, As needed, for potassium replacement, Starting on Sandra 07/07/25 at 1705, Administer Potassium Chloride IVPB in 10 mEq increments. Maximum infusion rates: Central Line = 20 mEq/hour. Administer via Central Line Only. If dose administered, recheck potassium level 1 hour after infusion complete. For potassium level 3.4 to 3.8 mmol/L and SerumCreatinine 1.2 or less = 30 mEq For potassium level 3.1 to 3.3 mmol/L and Serum Creatinine 1.2 or less = 40 mEq For potassium level 3 mmol/L or less and Serum Creatinine 1.2 or less = 50 mEq For potassium level 3.4 to 3.8 mmol/L and Serum Creatinine greater than 1.2 = 20 mEq For potassium level 3.1to 3.3 mmol/L and Serum Creatinine greater than 1.2 = 30 mEq For potassium level 3 mmol/L or less and Serum Creatinine greater than 1.2 = 40 mEq VESICANT (YELLOW) Or potassium chloride IVPB 10 mEq/100 mL in water (0.1 mEq/mL premix)Jump to med 10 mEq, intravenous, at 100 mL/hr, Administer over 60 Minutes, As needed, for potassium replacement, Starting on Sandra 07/07/25 at 1705, Administer Potassium Chloride IVPB in 10 mEq increments. Maximuminfusion rates: Central Line = 20 mEq/hour; Peripheral Line = 10 mEq/hour (10 mEq/100 mL). If dose administered, recheck potassium level 1 hour after infusion complete. For potassium level 3.4 to 3.8mmol/L and Serum Creatinine 1.2 or less = 30 mEq For potassium level 3.1 to 3.3 mmol/L and Serum Creatinine 1.2 or less = 40 mEq For potassium level 3 mmol/L or less and Serum Creatinine 1.2 or less = 50 mEq For potassium level 3.4 to 3.8 mmol/L and Serum Creatinine greater than 1.2 = 20 mEq For potassium level 3.1 to 3.3 mmol/L and Serum Creatinine greater than 1.2 = 30 mEq For potassium level 3mmol/L or less and Serum Creatinine greater than 1.2 = 40 mEq VESICANT (YELLOW) Infuse each 10 mEq over a minimum of 1 hour. Group 7: prochlorperazine (COMPAZINE) tablet 5 mgJump to med 5 mg, oral, Every 6 hours PRN, nausea, vomiting, Starting on 07/09/25 at 1955 Or prochlorperazine (COMPAZINE) injection 5 mgJump to med 5 mg, intravenous, Every 6 hours PRN, nausea, vomiting, if patient unable to tolerate PO, Starting on 07/09/25 at 1955, When administered via IV Push, do not exceed 5 mg per minute Or prochlorperazine (COMPAZINE) injection 5 mgJump to med 5 mg, intramuscular, Every 8 hours PRN, nausea, vomiting, if patient unable to tolerate PO and doesnot have IV access, Starting on 07/09/25 at 1955, When administered via IV Push, do not exceed 5 mg per minute Group 8: sodium phosphate 20 mmol in sodium chloride 0.9 % 250 mL IVPBJump to med 20 mmol, intravenous, at 42.8 mL/hr, Administer over 6 Hours, As needed, for phosphorous level 2.3 mg/dL or less, Starting on Sandra 07/07/25 at 1705, Administer over 6 hours via dedicated line (peripheral line). If administered, recheck phosphorus level 4 hours after infusion complete. Or sodium phosphate 20 mmol in sodium chloride 0.9 % 100 mL IVPBJump to med 20 mmol, intravenous, at 26.7 mL/hr, Administer over 4 Hours, As needed, for phosphorous level 2.3 mg/dL or less, Starting on Sandra 07/07/25 at 1705, Administer over 4 hours via dedicated line(central line). If administered, recheck phosphorus level 4 hours after infusion complete. Infuse using central line access. Or sod phos di, mono-K phos mono (K-PHOS NEUTRAL) 250 mg tablet 2 tabletJump to med 2 tablet, oral, As needed, for phosphorous level 2.3 mg/dL or less, Starting on Sandra 07/07/25 at 1705, If dose administered, recheck phosphorus level 4 hours after last dose. Look-alike/sound-alike medication - verify indication for use. Give with a full glass of water. documented in this encounter Additional Health Concerns AssessmentNoted TimePHQ-9 Depression Total Score: 12:56 PM EDT documented as of this encounter Care Teams Team MemberRelationshipSpecialtyStart DateEnd Date Azul Quezada, [employer] DIRECTOR PCP - GeneralNurse [id number]/9/19documented as of this encounter
--- OUTSIDE RECORDS SUMMARY | 2025-07-09 11:30 | XMS_ITS | Encounter Summary ---
Author Organization [facility] tem Address [id number] [address] [place] [address] Care Team Providers Care Radiology Physician Assistant Name Role Phone Leidymaxrani Azul Lashawn [facility] Primary Care Provider Reason for Visit * Auth/CertSpecialtyDiagnoses / ProceduresReferred By ContactReferred To Contact Diagnoses Stroke ([facility]) [address] [id number] Referral IDStatusReasonStart DateExpiration DateVisits RequestedVisits [id number] Encounter Details DateTypeDepartmentCare Team (Latest Contact Info)Awtuqppmrbc27/18/2025 11:30 AM EDT - 07/09/2025 12:30 PM EDTSurgery [facility] [address] [place] [id number] Andrew Terrell MD [address] [place] [address], [facility] [[email or web address]] [address] [place] [address] Diagnostic cerebral angiogram Surgery Details Date/TimeStatusLocationORServicePatient ClassCase ClassCase TypeTrauma Case? 07/09/2025 11:30 AMPostedTTH CARDIAC CATH LABSTT NEURO INVInterventional Neurology (CV)InpatientElectivePanel 1 ProcedureLRBAnesOp RegionWound Class CommentsDiagnostic cerebral angiogramN/ALocal Stent carotid with embolic protection rightRightMonitored Anesthesia Care SurgeonSurgeon RoleServicePanelAndrew Terrell, MDPrimaryInterventional Neurology (CV)1MWilner heredia MDFellowInterventional Neurology (CV)1documented in this encounter Social History Tobacco UseTypesPacks/DayYears UsedDateSmoking Tobacco: Every [...] relatives?Once a week06/10/2020How often do you attend pentecostal or confucianism services?Never06/10/2020Do you belong to any clubs or organizations such as pentecostal groups, unions, fraternal or athletic groups, or school groups?No 06/10/2020How often do you attend meetings of the clubs or organizations you belong to?Never06/10/2020Are you , , , , never , or living with a partner?Living with mzbfzxy2406/10/2020PHQ-2AnswerDate RecordedTotal Mszde545Finjordan [facility] - Occupational Stress QuestionnaireAnswerDate [...] RecordedIn the past 12 months has the [employer], gas, oil, or water [employer] threatened to shut off services in your home?No07/08/2025Housing InstabilityAnswerDate RecordedAre you worried or concerned that in the next two months you may not have stable housing that you own, rent or stay in as a part of a household?No07/08/2025hildcareAnswerDate RecordedChildcareUnknown 03/03/2019EmploymentAnswerDate EdycmdzeQgfgfflrqxXqhmdan91/12/2019Hunger ScreeningAnswerDate RecordedWithin the past 12 months we worried whether our food would run out before we got money to buy more.Never True07/08/2025Within the past 12 months the food we bought just didn't last and we didn't have money to get more.Never True07/08/2025Purpose - LifeAnswerDate RecordedPurpose and direction in weejFisslhz61/26/2021ex and Gender InformationValueDate Recorded Sex Assigned at BirthNot on fileLegal QlrNwpp4904/27/2015 11:32 AM EDTGender IdentityNot on fileSexual OrientationNot on filedocumented as of this encounter Last Filed Vital Signs Vital SignReadingTime TakenCommentsBlood Klygueth564/7807/09/2025 12:00 PM EDT Tqlun604507/09/2025 12:00 PM FSLMxpkvcgnnyp17.6 ??C (97.8 ??F)07/09/2025 12:00 PM EDTRespiratory Qstn9233 12:00 PM EDTOxygen Vpwcsrjyua05%07/09/2025 12:00 PM EDTInhaled Oxygen Concentration--Njdlgz02.7 kg (215 lb 6.2 oz)07/09/2025 5:00 AM VFURdklkf015.4 cm (6' 1 )07/08/2025 1:01 PM EDTBody Mass Index26.7607/08/2025 1:01 PM EDTdocumented in this encounter Functional Status * AUDIT-C ScoreAnswerDate of VvgisxbcycWmvglz848/17/2025 12:36 PM Jessie Hall RN * QuestionAnswerDate [...] occasion?Never07/08/2025 12:36 PM EDT Jessie Mc RN * QuestionAnswerDate of AssessmentAuthorFunctional WvdqijBxfvmrjyewj11/17/2025 12:37 PM Jessie Hall RN documented as of this encounter Mental Status * QuestionAnswerEntry DateAuthorOverall Cognitive BfqqxuA65/16/2025 3:13 PM EDT Sher Umanzor CCC-CIVIL CAD DESIGNER documented in this encounter Discharge Summaries * Riley Billingsley MD - 07/12/2025 12:50 PM EDT Inpatient Discharge Summary BRIEF OVERVIEW Admitting Provider: Lex Carter MD Discharge Provider: Checo Aguliera MD Primary Care Physician at Discharge: 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, DENTAL TECHCHELSEA [facility]AL [facility] [phone] Admission Date: 07/07/2025 Discharge Date: No discharge [...] STAY Presenting Problem/History of Present Illness Stroke ([facility]) [I63.9] CVA (cerebral vascular accident) ([facility]) [I63.9] Stroke (cerebrum) ([facility]) [I63.9] Hospital Course Sam Carrasco is a 65 y.o. male who presents with left-sided deficits and right gaze preference.Patient initially to [facility] after he had an episode of shortness of breath and inabilityto get up. He called his sister who called EMS and brought him to the ED outside hospital ED. On initial evaluation, patient had left hemiparesis and right gaze preference. Initial CT head was unremarkable. Vessel imaging showed right ICA In-stent stenosis and possible basilar stenosis. [facility]. CTP showed asymmetric decreased [...] the patient and recommended discharging to a assisted facility. At the time of discharge, the [...] Your Medications These medications were sent to [id number] - [place] - [address] [place] [address] rosuvastatin 10 mg tablet ticagrelor 90 mg [...] Care Everywhere. * Stroke ??? Discharge instructions (Lao) documented in this encounter Medications at Time [...] of Stay: 4 days Admission Diagnosis: Stroke ([facility]) [I63.9] CVA (cerebral vascular accident) ([facility]) [I63.9] Stroke (cerebrum) ([facility]) [I63.9] Reviewing patient due to his recent transfer out from Intensive Care. Recorded vital signs are stable and the patient is not noted to be in any apparent distress. Telemetry and monitoring noted. Staff may call with any issues or concerns regarding his clinical presentation or stability. Thank you, Joana Dejesus RN Rapid Response: [facility] 3 * Riley Billingsley MD - [...] and right gaze preference. Patient initially to [facility] after he had an episode of shortness of breath and inability to get up. He called his sister who called EMS and brought him to the ED outside hospital ED. On initial evaluation, patient had left hemiparesis and right gaze preference. Initial CT head was unremarkable. Vessel imaging showed right ICA In-stent stenosis and possible basilar stenosis. Patient was transferred to [facility] for CTP. CTP showed asymmetric decreased [...] Diagnosis Date COPD (chronic obstructive pulmonary disease) ([facility]) CVA (cerebral vascular accident) ([facility]) 06/10/2020 Emphysema of lung ([facility]) Stroke ([facility]) 07/07/2025 Past surgical history: Past Surgical History: Procedure Laterality Date Diagnostic cerebral angiogram with JAYANT stent placement with embolic protection device N/A 06/12/2020 Performed by Andrew Terrell MD at [facility] TONSILLECTOMY Family [...] Physical Activity: Insufficiently Active (11/13/2023) Received from [facility] Exercise Vital Sign On average, how many days per week do you engage in moderate to strenuous exercise (like a brisk walk)?: 2 days On average, how many minutes do you engage in exercise at this level?: 20 min Stress: No Stress Concern Present (11/13/2023) Received from [facility] - Occupational Stress Questionnaire Feeling of Stress : Only a little Social Connections: Moderately Integrated (11/13/2023) Received from [facility] Social Connection and Isolation Panel In a typical week, how many times do you talk on the phone with family, friends, or neighbors?: More than three times a week How often do you get together with friends or relatives?: More than three times a week How often do you attend pentecostal or confucianism services?: Never Do you belong to any clubs or organizations such as pentecostal groups, unions, fraternal [...] possible basilar stenosis. Patient was transferred to [facility] for CTP. CTP showed asymmetric decreased [...] of Stay: 3 days Admission Diagnosis: Stroke ([facility]) [I63.9] CVA (cerebral vascular accident) ([facility]) [I63.9] Stroke (cerebrum) ([facility]) [I63.9] Reviewing patient due to his recent transfer out from Intensive Care. Recorded vital signs are stable and the patient is not noted to be in any apparent distress. Telemetry and monitoring noted. Staff may call with any issues or concerns regarding his clinical presentation or stability. Thank you, Tiffanie Padilla RN Rapid Response: [facility] * Riley Billingsley MD - 07/11/2025 [...] and right gaze preference. Patient initially to [facility] after he had an episode of shortness of breath and inability to get up. He called his sister who called EMS and brought him to the ED outside hospital ED. On initial evaluation, patient had left hemiparesis and right gaze preference. Initial CT head was unremarkable. Vessel imaging showed right ICA In-stent stenosis and possible basilar stenosis. Patient was transferred to [facility] for CTP. CTP showed asymmetric decreased [...] Diagnosis Date COPD (chronic obstructive pulmonary disease) ([facility]) CVA (cerebral vascular accident) ([facility]) 06/10/2020 Emphysema of lung ([facility]) Stroke ([facility]) 07/07/2025 Past surgical history: Past Surgical History: Procedure Laterality Date Diagnostic cerebral angiogram with JAYANT stent placement with embolic protection device N/A 06/12/2020 Performed by Andrew Terrell MD at [facility] TONSILLECTOMY Family [...] Physical Activity: Insufficiently Active (11/13/2023) Received from [facility] Exercise Vital Sign On average, how many days per week do you engage in moderate to strenuous exercise (like a brisk walk)?: 2 days On average, how many minutes do you engage in exercise at this level?: 20 min Stress: No Stress Concern Present (11/13/2023) Received from [facility] - Occupational Stress Questionnaire Feeling of Stress : Only a little Social Connections: Moderately Integrated (11/13/2023) Received from [facility] Social Connection and Isolation Panel In a typical week, how many times do you talk on the phone with family, friends, or neighbors?: More than three times a week How often do you get together with friends or relatives?: More than three times a week How often do you attend pentecostal or confucianism services?: Never Do you belong to any clubs or organizations such as pentecostal groups, unions, fraternal [...] possible basilar stenosis. Patient was transferred to [facility] for CTP. CTP showed asymmetric decreased [...] of Stay: 3 days Admission Diagnosis: Stroke ([facility]) [I63.9] CVA (cerebral vascular accident) ([facility]) [I63.9] Stroke (cerebrum) ([facility]) [I63.9] Reviewing patient due to his recent transfer out from Intensive Care. Recorded vital signs are stable and the patient is not noted to be in any apparent distress. Telemetry and monitoring noted. Staff may call with any issues or concerns regarding his clinical presentation or stability. Thank you, ASHWINI JIM RN Rapid Response: [facility] * Riley Billingsley MD - 07/10/2025 [...] and right gaze preference. Patient initially to [facility] after he had an episode of shortness of breath and inability to get up. He called his sister who called EMS and brought him to the ED outside hospital ED. On initial evaluation, patient had left hemiparesis and right gaze preference. Initial CT head was unremarkable. Vessel imaging showed right ICA In-stent stenosis and possible basilar stenosis. Patient was transferred to [facility] for CTP. CTP showed asymmetric decreased [...] Diagnosis Date COPD (chronic obstructive pulmonary disease) ([facility]) CVA (cerebral vascular accident) ([facility]) 06/10/2020 Emphysema of lung ([facility]) Stroke ([facility]) 07/07/2025 Past surgical history: Past Surgical History: Procedure Laterality Date Diagnostic cerebral angiogram with JAYANT stent placement with embolic protection device N/A 06/12/2020 Performed by Andrew Terrell MD at [facility] TONSILLECTOMY Family [...] Physical Activity: Insufficiently Active (11/13/2023) Received from [facility] Exercise Vital Sign On average, how many days per week do you engage in moderate to strenuous exercise (like a brisk walk)?: 2 days On average, how many minutes do you engage in exercise at this level?: 20 min Stress: No Stress Concern Present (11/13/2023) Received from [facility] - Occupational Stress Questionnaire Feeling of Stress : Only a little Social Connections: Moderately Integrated (11/13/2023) Received from [facility] Social Connection and Isolation Panel In a typical week, how many times do you talk on the phone with family, friends, or neighbors?: More than three times a week How often do you get together with friends or relatives?: More than three times a week How often do you attend pentecostal or confucianism services?: Never Do you belong to any clubs or organizations such as pentecostal groups, unions, fraternal [...] possible basilar stenosis. Patient was transferred to [facility] for CTP. CTP showed asymmetric decreased [...] MD Vascular Neurologist [facility] Neurology ([facility])? Important Notice:??This note was created with the [...] and right gaze preference. Patient initially to [facility] after he had an episode of shortness of breath and inability to get up. He called his sister who called EMS and brought him to the ED outside hospital ED. On initial evaluation, patient had left hemiparesis and right gaze preference. Initial CT head was unremarkable. Vessel imaging showed right ICA In-stent stenosis and possible basilar stenosis. Patient was transferred to [facility] for CTP. CTP showed asymmetric decreased [...] Diagnosis Date COPD (chronic obstructive pulmonary disease) ([facility]) CVA (cerebral vascular accident) ([facility]) 06/10/2020 Emphysema of lung ([facility]) Stroke ([facility]) 07/07/2025 Past surgical history: Past Surgical History: Procedure Laterality Date Diagnostic cerebral angiogram with JAYANT stent placement with embolic protection device N/A 06/12/2020 Performed by Andrew Terrell MD at [facility] TH[facility] TONSILLECTOMY Family [...] Physical Activity: Insufficiently Active (11/13/2023) Received from [facility] Exercise Vital Sign On average, how many days per week do you engage in moderate to strenuous exercise (like a brisk walk)?: 2 days On average, how many minutes do you engage in exercise at this level?: 20 min Stress: No Stress Concern Present (11/13/2023) Received from [facility] - Occupational Stress Questionnaire Feeling of Stress : Only a little Social Connections: Moderately Integrated (11/13/2023) Received from [facility] Social Connection and Isolation Panel In a typical week, how many times do you talk on the phone with family, friends, or neighbors?: More than three times a week How often do you get together with friends or relatives?: More than three times a week How often do you attend pentecostal or confucianism services?: Never Do you belong to any clubs or organizations such as pentecostal groups, unions, fraternal [...] possible basilar stenosis. Patient was transferred to [facility] for CTP. CTP showed asymmetric decreased [...] MD Vascular Neurologist [facility] Neurology ([facility])? Important Notice:??This note was created with the [...] and right gaze preference. Patient initially to [facility] after he had an episode of shortness of breath and inability to get up. He called his sister who called EMS and brought him to the ED outside hospital ED. On initial evaluation, patient had left hemiparesis and right gaze preference. Initial CT head was unremarkable. Vessel imaging showed right ICA In-stent stenosis and possible basilar stenosis. Patient was transferred to [facility] for CTP. CTP showed asymmetric decreased [...] Diagnosis Date COPD (chronic obstructive pulmonary disease) ([facility]) CVA (cerebral vascular accident) ([facility]) 06/10/2020 Emphysema of lung ([facility]) Stroke ([facility]) 07/07/2025 Past surgical history: Past Surgical History: Procedure Laterality Date Diagnostic cerebral angiogram with JAYANT stent placement with embolic protection device N/A 06/12/2020 Performed by Andrew Terrell MD at [facility] TH[facility] TONSILLECTOMY Family [...] Physical Activity: Insufficiently Active (11/13/2023) Received from [facility] Exercise Vital Sign On average, how many days per week do you engage in moderate to strenuous exercise (like a brisk walk)?: 2 days On average, how many minutes do you engage in exercise at this level?: 20 min Stress: No Stress Concern Present (11/13/2023) Received from [facility] [place] [facility] - Occupational Stress Questionnaire Feeling of Stress : Only a little Social Connections: Moderately Integrated (11/13/2023) Received from [facility] Social Connection and Isolation Panel In a typical week, how many times do you talk on the phone with family, friends, or neighbors?: More than three times a week How often do you get together with friends or relatives?: More than three times a week How often do you attend pentecostal or confucianism services?: Never Do you belong to any clubs or organizations such as pentecostal groups, unions, fraternal [...] possible basilar stenosis. Patient was transferred to [facility] for CTP. CTP showed asymmetric decreased [...] MD Vascular Neurologist [facility] Neurology ([facility])? Important Notice:??This note was created with the [...] further ICU needs should arise. Adonis Fontanez, DENTAL TECH-TANK CALIBRATOR Subjective Patient resting in bed. He states [...] checked/tightened 07/08/25 0000 Site Assessment Clean;Dry;Intact 07/08/25 Dressing Type Occlusive;Transparent 07/08/25 0000 Dressing Status Clean;Dry;Intact 07/08/25 0000 Dressing Intervention Initial dressing 07/07/25 143 Dressing Change Due (Non-Gauze) 07/14/25 07/07/25 1430 Peripheral IV 07/07/25 Anterior;Left Hand (Active) Line Status Flushed;Alcohol sponge cap maintained;Connections checked/tightened 07/08/25 0000 Site Assessment Clean;Dry;Intact 07/08/25 Dressing Type Occlusive;Transparent 07/08/25 0000 Dressing Status Clean;Dry;Intact 07/08/25 0000 Dressing Intervention Initial dressing 07/07/25 143 Dressing Change Due (Non-Gauze) 07/14/25 07/07/25 143 I/O last 3 completed shifts: In: - Out: 400 [Urine:400] No intake/output data recorded. aspirin, 81 mg, oral, Daily budesonide, 0.5 mg, nebulization, Q12H ipratropium-albuteroL, 3 mL, nebulization, Q6H ticagrelor, 90 mg, oral, Q12H sodium chloride 0.9 %, 10 mL/hr sodium chloride 0.9 %, 10 mL/hr sodium chloride 0.9 %, 10 mL/hr KURT Phelps APRN-CNP 07/08/25 09 I, Leroy Davis MD, personally performed the face to face [...] and right gaze preference. Patient initially to [facility] after he had an episode of shortness of breath and inability to get up. He called his sister who called EMS and brought him to the ED outside hospital ED. On initial evaluation, patient had left hemiparesis and right gaze preference. Initial CT head was unremarkable. Vessel imaging showed right ICA In-stent stenosis and possible basilar stenosis. Patient was transferred to [facility] for CTP. CTP showed asymmetric decreased [...] Diagnosis Date COPD (chronic obstructive pulmonary disease) ([facility]) CVA (cerebral vascular accident) ([facility]) 06/10/2020 Emphysema of lung ([facility]) Past surgical history: Past Surgical History: Procedure Laterality Date Diagnostic cerebral angiogram with JAYANT stent placement with embolic protection device N/A 06/12/2020 Performed by Andrew Terrell MD at [facility] TONSILLECTOMY Family [...] Resource Strain: Low Risk (11/13/2023) Received from [facility] Overall Financial Resource Strain (CARDIA) Difficulty of Paying Living Expenses: Not hard at all Food Insecurity: No Food Insecurity (11/13/2023) Received from [facility] Hunger Vital Sign Within the past 12 months, you worried that your food would run out before you got the money to buymore.: Never true Within the past 12 months, the food you bought just didn't last and you didn't have money to get more.: Never true Transportation Needs: No Transportation Needs (11/13/2023) Received from [facility] PRAPARE - Transportation Lack of Transportation (Medical): No Lack of Transportation (Non-Medical): No Physical Activity: Insufficiently Active (11/13/2023) Received from [facility] Exercise Vital Sign On average, how many days per week do you engage in moderate to strenuous exercise (like a brisk walk)?: 2 days On average, how many minutes do you engage in exercise at this level?: 20 min Stress: No Stress Concern Present (11/13/2023) Received from [facility] [place] [facility] - Occupational Stress Questionnaire Feeling of Stress : Only a little Social Connections: Moderately Integrated (11/13/2023) Received from [facility] Social Connection and Isolation Panel In a typical week, how many times do you talk on the phone with family, friends, or neighbors?: More than three times a week How often do you get together with friends or relatives?: More than three times a week How often do you attend pentecostal or confucianism services?: Never Do you belong to any clubs or organizations such as pentecostal groups, unions, fraternal or athletic groups, or school groups?: Yes How often do you attend meetings of the clubs or organizations you belong to?: More than 4 times per year Are you , , , , never , or living with a partner?: Interpersonal Safety: Not At Risk (11/13/2023) Received from [facility] Humiliation, Afraid, Rape, and Kick questionnaire Within [...] Housing Instability: Low Risk (11/13/2023) Received from [facility] Housing Stability Vital Sign Unable to Pay [...] possible basilar stenosis. Patient was transferred to [facility] for CTP. CTP showed asymmetric decreased [...] MD Vascular Neurologist [facility] Neurology ([facility] [place])? Important Notice:??This note was created with the [...] Using the modified Seldinger technique, a 6 Portuguese sheath was advanced into the rightcommon femoral artery. Through this sheath, a 5 Portuguese Vert catheter was advanced over a 0.035 [...] femoral sheath were exchanged for a 6 Portuguese, 90 cm Neuron MAX sheath. Through this sheath, a Synchro microguidewire was advanced into the petrous segment of the right ICA, which was then exchanged for an Quentin 0.014 wire to provide additional support. Over this wire, a NeuroGuard embolic protection system was advanced to cover the lesion. Subsequently, a NeuroGuard 8/6/7 x 40 mm carotid artery stent was [...] NeuroGuard distal embolic protection system for symptomatic vizl-uqbdzoc-soojp restenosis of the proximal right ICA. The [...] 10:06 PM EDTAssociated Order(s): IP CONSULT TO SPACE CONTROL AGENT Images from the original note were not [...] Date ??? COPD (chronic obstructive pulmonary disease) ([facility]) ??? CVA (cerebral vascular accident) ([facility]) 06/10/2020 ??? Emphysema of lung ([facility]) Past Surgical History: Procedure Laterality Date ??? Diagnostic cerebral angiogram with JAYANT stent placement with embolic protection device N/A 06/12/2020 Performed by Andrew Terrell MD at [facility] ??? THROAT SURGERY ??? [...] Resource Strain: Low Risk (11/13/2023) Received from [facility] Overall Financial Resource Strain (CARDIA) ??? Difficulty of Paying Living Expenses: Not hard at all Food Insecurity: No Food Insecurity (11/13/2023) Received from [facility] Hunger Vital Sign ??? Within the past 12 months, you worried that your food would run out before you got the money tobuy more.: Never true ??? Within the past 12 months, the food you bought just didn't last and you didn't have money to get more.: Never true Transportation Needs: No Transportation Needs (11/13/2023) Received from [facility] PRAPARE - Transportation ??? Lack of Transportation (Medical): No ??? Lack of Transportation (Non-Medical): No Physical Activity: Insufficiently Active (11/13/2023) Received from [facility] Exercise Vital Sign ??? On average, how many days per week do you engage in moderate to strenuous exercise (like a brisk walk)?: 2 days ??? On average, how many minutes do you engage in exercise at this level?: 20 min Stress: No Stress Concern Present (11/13/2023) Received from [facility] [place] [employer] - Occupational Stress Questionnaire ??? Feeling of Stress : Only a little Social Connections: Moderately Integrated (11/13/2023) Received from [facility] Social Connection and Isolation Panel ??? In a typical week, how many times do you talk on the phone with family, friends, or neighbors?:More than three times a week ??? How often do you get together with friends or relatives?: More than three times a week ??? How often do you attend pentecostal or confucianism services?: Never ??? Do you belong to any clubs or organizations such as pentecostal groups, unions, fraternal or athletic groups, or school groups?: Yes ??? How often do you attend meetings of the clubs or organizations you belong to?: More than 4 times per year ??? Are you , , , , never , or living with a partner?: Interpersonal Safety: Not At Risk (11/13/2023) Received from [facility] Humiliation, Afraid, Rape, and Kick questionnaire ??? [...] Housing Instability: Low Risk (11/13/2023) Received from [facility] Housing Stability Vital Sign ??? Unable to [...] Status Clean;Dry;Intact 07/07/251999 Dressing Intervention Initial dressing 07/07/251429 Dressing Change Due (Non-Gauze) 07/14/25 07/07/251429 Peripheral IV 07/07/25 Anterior;Left Hand (Active) Line Status Blood return noted;Saline locked;Flushed;Alcohol sponge cap maintained;Connections checked/tightened 07/07/251999 Site Assessment Clean;Dry;Intact 07/07/251999 Dressing Type Occlusive;Transparent 07/07/251999 Dressing Status Clean;Dry;Intact 07/07/251999 Dressing Intervention Initial dressing 07/07/251429 Dressing Change Due (Non-Gauze) 07/14/25 07/07/251429 No intake/output data recorded. Results from last [...] stenosis, right ??? CVA (cerebral vascular accident) ([facility]) ??? Mixed hyperlipidemia ??? Smoker ASSESSMENT [...] Answer: Regular Texture 07/09/25 1620 PT OT CIVIL CAD DESIGNER: PT OT CIVIL CAD DESIGNER Orders (From admission, onward) Start Ordered 07/07/25 [...] Reason for OT Stroke 07/07/25 1456 07/07/25 145 Consult Physical Therapy- eval/treat (Consult Physical Therapy) Once Question Answer Comment Does patient currently have an order for bedrest? Yes - please change activity order before proceeding Has nursing attempted to mobilize this patient? No - should occur before consult order is placed Reason for PT? Discharge recommendations Reason for PT? Stroke 07/07/25 1456 07/07/25 145 Consult Speech Therapy- eval/treat Once Question: Reason [...] Except: Except medications 07/08/25 1611 PT OT CIVIL CAD DESIGNER: PT OT CIVIL CAD DESIGNER Orders (From admission, onward) Start Ordered 07/07/251706 [...] Yes- (continue) Reason for PT? Stroke 07/07/25 17007/07/251706 Consult Speech Therapy- eval/treat (Consult Speech Therapy) Once Question: Reason for ST? Answer: Stroke 07/07/251709 06/16/25 151 Consult Speech Therapy- eval/treat (Adult Swallow [...] Reason for OT Stroke 07/07/25 1456 07/07/25 145 Consult Physical Therapy- eval/treat (Consult Physical Therapy) Once Question Answer Comment Does patient currently have an order for bedrest? Yes - please change activity order before proceeding Has nursing attempted to mobilize this patient? No - should occur before consult order is placed Reason for PT? Discharge recommendations Reason for PT? Stroke 07/07/25 1456 07/07/25 145 Consult Speech Therapy- eval/treat Once Question: Reason [...] Except: Except medications 07/08/25 0757 PT OT CIVIL CAD DESIGNER: PT OT CIVIL CAD DESIGNER Orders (From admission, onward) Start Ordered 07/07/25 [...] Reason for PT? Stroke 07/07/25 1456 07/07/25 145 Consult Speech Therapy- eval/treat Once Question: Reason for ST? Answer: Stroke 07/07/25 1452 Activity: Early mobility Comments: Carroll: No CVL: No Drips: None Intubated: No Family Issues: None Outstanding Tests/Procedures: Angio Barriers: None Discharge Plan: Needs PT/OT evaluation documented in this encounter Miscellaneous Notes * Discharge Planning Note - Agustin Larsen, EMT - 07/12/2025 10:25 AM EDT DISCHARGE PLANNING NOTE BLS transport confirmed via [facility] going to [facility] [place] on 07/12/2025 at 1500 * Discharge Planning Note - Jaki Dubois RN - 07/12/2025 9:50 AM EDT Ongoing Assessment for Discharge Needs Reviewed discharge milestones and patient needs related to discharge plan. Current estimated discharge date of Jul 12, 2025 has been reviewed by treatment team. [facility] has accepted and has a bed open today. Pt agreeable and will notify hissister. Tasked for S transport set up. Waiting on DC orders, [...] Disposition [facility] Yes Who is the existing DME Provider? [employer] ([phone]) Does the patient need discharge transportation arranged? [...] the existing DME Provider? [employer] ([phone]) Will the patient need additional respiratory equipment [...] at the bedside 7. Instruct patient/ patient high school admissions representative about use of safety devices 8. Include patient/ patient high school admissions representative in decisions related to safety Outcome: [...] progress towards goal: Pt to discharge to assisted facility. Awaiting insurance authorization at this time. [...] progress towards goal: Pt to discharge to assisted facility. Awaiting insurance authorization at this time. Pt verbalized understanding of treatment plan * PT/OT/CIVIL CAD DESIGNER - ROMAN Carrera - 07/11/2025 4:17 PM [...] Treatment Precautions Activity: ok for therapy per RN Blanca Equipment: gait belt, RW and chair alarm and external catheter Telemetry/Hotel Dining Room Cashier: Yes Oxygen Used: 3L Other: L side [...] Dynamic: Poor (w/bilat UEsupport) Other: stood about 1ydnrb7, 1x w/HHAx2 and 1x w/RW and maxA; [...] Date/Time User Outcome 07/11/25 1616 Marlyn Murray OENOLOGIST/L Progressing Problem: Sitting Balance Dates: Start: 07/10/25 Disciplines: OT Goal: Improve balance to good Dates: Start: 07/10/25 Expected End: 08/07/25 Description: Good static balance. Disciplines: OT Outcomes Date/Time User Outcome 07/11/25 1616 Marlyn Murray OENOLOGIST/L Progressing Problem: Standing Balance Dates: Start: 07/10/25 Disciplines: OT Goal: Improve balance to good Dates: Start: 07/10/25 Expected End: 08/07/25 Description: Good static balance. Disciplines: OT Outcomes Date/Time User Outcome 07/11/25 1616 ROMAN Carrera Progressing Problem: Transfers Dates: Start: 07/10/25 Disciplines: OT Goal: Patient will perform transfers with Minimum Assist Dates: Start: 07/10/25 Expected End: 08/07/25 Description: As able and patient tolerates. Disciplines: OT Outcomes Date/Time User Outcome 07/11/25 1616 ROMAN Carrera Progressing Occupational Therapy Care Plan (Resolved) There are no resolved problems. Principal Problem: Stroke (cerebrum) ([facility]) Cosigned by JOEY Kennedy/Chloe at 07/12/2025 2:40 PM EDT Associated attestation - Dai Sanchez OTR/Chloe - 07/12/2025 2:40 PM EDT I have reviewed and agree with this note and education documentation for this visit. * PT/OT/CIVIL CAD DESIGNER - Sandeep Leigh PTA - 07/11/2025 4:07 [...] Treatment Precautions Activity: ok for therapy per RN Blanca Equipment: gait belt, RW, chair alarm, external catheter Telemetry/Hotel Dining Room Cashier: Yes Oxygen Used: 3LO2 via NC Other: [...] Disciplines: PT Outcomes Date/Time User Outcome 07/11/25 160 Sandeep Leigh PTA Progressing Goal Note filed on 07/11/25 160 by Sandeep Leigh PTA Evaluation of progress towards goal: Problem: Sitting Balance Dates: Start: 07/10/25 Disciplines: PT Goal: Improve balance to good Dates: Start: 07/10/25 Expected End: 07/29/25 Description: Static Dynamic Disciplines: PT Outcomes Date/Time User Outcome 07/11/25 160 Sandeep Leigh PTA Progressing Goal Note filed on 07/11/25 160 by Sandeep Leigh PTA Evaluation of progress towards goal: Problem: Standing Balance Dates: Start: 07/10/25 Disciplines: PT Goal: Improve balance to fair Dates: Start: 07/10/25 Expected End: 07/29/25 Description: Improve standing balance to fair+ with UE support to minimize fall risk. Disciplines: PT Outcomes Date/Time User Outcome 07/11/25 160 Sandeep Leigh PTA Progressing Goal Note filed on 07/11/25 160 by Sanedep Leigh PTA Evaluation of progress towards goal: [...] Disciplines: PT Outcomes Date/Time User Outcome 07/11/25 160 Sandeep Leigh PTA Progressing Goal Note filed on 07/11/25 1601 by Sandeep Leigh PTA Evaluation of progress towards goal: Physical Therapy Care Plan (Resolved) There are no resolved problems. Principal Problem: Stroke (cerebrum) ([facility]) Cosigned by Jodie Lincoln PT at 07/12/2025 7:15 AM EDT Associated attestation - Jodie Lincoln PT - 07/12/2025 7:15 AM EDT I have reviewed and agree with this note and education documentation for this visit. * Discharge Planning Note - Beba Schmidt - 07/11/2025 2:28 PM EDT DISCHARGE PLANNING NOTE Referral sent to [facility] (P#: ; F#: ) [facility] [place] (P# ; F# ) * Discharge Planning Note - Jaki Dubois RN - 07/11/2025 11:20 AM EDT Images from the original note were not included. Initial Discharge Planning Assessment Pbx Operator met with pt at bedside, introduced self, explained role. Pt alert and oriented, able to participate in discharge planning. Pt states his sister and oabehwp-mu-jsc will be visiting later today. Initial Assessment [...] needs Who is the existing DME Provider? [employer] ([phone]) Does The Patient Have Existing Home DME? [...] SNF Who is the existing DME Provider? [employer] ([phone]) Does the patient need discharge transportation arranged? [...] was living with his sister (Cara) and wxshygq-yn-rhj (Dharmesh) and was fully independent/ self care. Medical equipment patient used prior to admission includes: nebulizer and oxygen (2L o2, continuous, supplied by [employer]). Pt states his only limitation to ADLs is getting akxst-co-hxgeql and needing to take breaks with walking/activity. Patient denies need for transportation (he drives)/ food/ financial strain/ or prescription medication assistance resources. CN discussed discharge resources with patient, including discussing PT/OT recommendations for SNF. Pt agreeable, stating he is motivated to start rehab and get his strength back. CN reviewed SNF listwith pt; he requested referrals to [facility] and [facility]. He will review the list with his sister and discuss for more options/fzforrle-go-rwvqsb. CN tasked referrals to be sent. No insurance auth needed. PCP: KURT MANNING PCP and pharmacy confirmed with patient. He is able to schedule his own follow up appointment. AZUL J AICHHOLZ, DENTAL TECH-TANK CALIBRATOR added to Follow Up Providers for Summary of Care communication. The patient receives support from his sister and govsuql-qa-xbq. Goals: Goals Patient Stated Safe Discharge (pt-stated) [...] he is okay with either facility in [place]. - Jaki Dubois RN 07/11/25 3:51 PM [...] at the bedside 7. Instruct patient/ patient high school admissions representative about use of safety devices 8. Include patient/ patient high school admissions representative in decisions related to safety Outcome: [...] Score of =/> 25 or indicated by [facility] Assessment Goal: Patient should be free from fall Description: Interventions: 1. [place] to environment 2. Hourly rounds addressing the [...] non-skid footwear 11. Teach patient and patient high school admissions representative to maintain environment for safety and [...] (cane, walker) within reach 19. Request patient high school admissions representative bring adaptive equipment/mobility aids from home or obtain and provide as needed 20. Consult pharmacy regarding effects of med's affecting mobility, cognition, and alternatives 21. Obtain physician order for PT if risk factors associated with mobility are present 22. Obtain physician order for OT as appropriate 23. Utilize diversional activities 24. Educate patient and patient high school admissions representative how to maintain a safe environment during visitationtimes (notify nurse prior to leaving bedside) 25. Consider appropriateness of medical or non-medical insurance coding specialist 26. Set up voiding schedule as appropriate [...] progress towards goal: Patient is progressing * PT/OT/CIVIL CAD DESIGNER - Clemente Romeo PT - 07/10/2025 12:00 PM EDT Physical Therapy Evaluation Discharge Recommendations for Safe Patient Transition PT Discharge Disposition Recommendation: Post acute - moderate PT Post Acute Moderate Rehab Needs: Recommend moderate intensity rehab, Tolerate 1-2 hrs of therapy3-5 days/wk, Subacute or chronic functional impairment Current Impairments Informing Therapy Recommendation: Ambulation status/safety, Fall risk, ADL status, Endurance level Modified [place] Level of Disability: Severe disability 0= No [...] 6 Clicks: Basic Mobility Raw Score: 11 [facility] G Code Modifier: CL Therapy Plan [...] Diagnosis Date COPD (chronic obstructive pulmonary disease) ([facility]) CVA (cerebral vascular accident) ([facility]) 06/10/2020 Emphysema of lung ([facility]) Stroke ([facility]) 07/07/2025 Past Surgical History: Procedure Laterality Date Diagnostic cerebral angiogram with JAYANT stent placement with embolic protection device N/A 06/12/2020 Performed by Andrew Terrell MD at [facility] THROAT SURGERY TONSILLECTOMY Assessment [...] with repositioning sling, chair alarm, external catheter Telemetry/Hotel Dining Room Cashier: Yes Oxygen Used: 3L O2 per NC [...] Prior Function Lives With: Sister (sister / fjglfih-ob-ztb) Receives Help From: Family Level of Mobility: [...] no resolved problems. Principal Problem: Stroke (cerebrum) ([facility]) * PT/OT/CIVIL CAD DESIGNER - Yasmene Oliveros OTR/Chloe - 07/10/2025 11:54 AM EDT [...] Other (see comments) (left side hemiparesis.) Modified [place] Level of Disability: Severe disability 0= No [...] Functional activities OT Frequency: 4-5days/week OT Duration: 11-15-2025 Assessment Patient Assessment Therapy Problem List: Decreased [...] oxygen, maxi miguel, chair alarm, external cath. Telemetry/Hotel Dining Room Cashier: Yes Oxygen Used: 3 liters oxygen. Other: [...] light in reach and chair alarm on. RN, Julianne gama) Eating Assistance: Min assist Grooming Assistance: Max [...] with sup to sit with labored breathing. RNJulianne. Plan Occupational Therapy Care Plan Occupational Therapy [...] no resolved problems. Principal Problem: Stroke (cerebrum) ([facility]) * Plan of Care - Steven Sheikh [...] artery stenosis, right CVA (cerebral vascular accident) ([facility]) Mixed hyperlipidemia Smoker Stroke (cerebrum) ([facility]) Last Chest XRAY: Reviewed Pulmonary History: RT [...] Description: INTERVENTIONS: 1. Encourage patient or legal high school admissions representative to report early pain and ask [...] per policy 9. Teach patient or legal high school admissions representative interventions for comforting Outcome: Progressing Note: [...] at the bedside 7. Instruct patient/ patient high school admissions representative about use of safety devices 8. Include patient/ patient high school admissions representative in decisions related to safety Outcome: [...] hygiene technique. 7. Identify and instruct patient/patient high school admissions representative in use of appropriate isolation precautionsfor identified infection/symptoms. 8. Provide and discuss with patient/patient high school admissions representative on educational MDRO sheet. 9. Encourage and monitor nutritional status daily and consult production support specialist if indicated. 10. Implement neutropenic guidelines as [...] be free from fall Description: Interventions: 1. [place] to environment 2. Hourly rounds addressing the [...] non-skid footwear 11. Teach patient and patient high school admissions representative to maintain environment for safety and [...] (cane, walker) within reach 19. Request patient high school admissions representative bring adaptive equipment/mobility aids from home or obtain and provide as needed 20. Consult pharmacy regarding effects of med's affecting mobility, cognition, and alternatives 21. Obtain physician order for PT if risk factors associated with mobility are present 22. Obtain physician order for OT as appropriate 23. Utilize diversional activities 24. Educate patient and patient high school admissions representative how to maintain a safe environment during visitationtimes (notify nurse prior to leaving bedside) 25. Consider appropriateness of medical or non-medical insurance coding specialist 26. Set up voiding schedule as appropriate [...] artery stenosis, right CVA (cerebral vascular accident) ([facility]) Mixed hyperlipidemia Smoker Stroke (cerebrum) ([facility]) Last Chest XRAY: Reviewed Pulmonary History: reviewed [...] Description: INTERVENTIONS: 1. Encourage patient or legal high school admissions representative to report early pain and ask [...] per policy 9. Teach patient or legal high school admissions representative interventions for comforting Outcome: Progressing Note: [...] at the bedside 7. Instruct patient/ patient high school admissions representative about use of safety devices 8. Include patient/ patient high school admissions representative in decisions related to safety Outcome: [...] hygiene technique. 7. Identify and instruct patient/patient high school admissions representative in use of appropriate isolation precautionsfor identified infection/symptoms. 8. Provide and discuss with patient/patient high school admissions representative on educational MDRO sheet. 9. Encourage and monitor nutritional status daily and consult production support specialist if indicated. 10. Implement neutropenic guidelines as [...] be free from fall Description: Interventions: 1. [place] to environment 2. Hourly rounds addressing the [...] non-skid footwear 11. Teach patient and patient high school admissions representative to maintain environment for safety and [...] (cane, walker) within reach 19. Request patient high school admissions representative bring adaptive equipment/mobility aids from home or obtain and provide as needed 20. Consult pharmacy regarding effects of med's affecting mobility, cognition, and alternatives 21. Obtain physician order for PT if risk factors associated with mobility are present 22. Obtain physician order for OT as appropriate 23. Utilize diversional activities 24. Educate patient and patient high school admissions representative how to maintain a safe environment during visitationtimes (notify nurse prior to leaving bedside) 25. Consider appropriateness of medical or non-medical insurance coding specialist 26. Set up voiding schedule as appropriate (every 2 hours) Outcome: Progressing Note: Evaluation of progress towards goal: Fall risk assessment preformed and safety measures in place. Education given to family/patient. Will continue to monitor. * PT/OT/CIVIL CAD DESIGNER - Susan Moran PT - 07/09/2025 12:27 [...] artery stenosis, right CVA (cerebral vascular accident) ([facility]) Mixed hyperlipidemia Smoker Stroke (cerebrum) ([facility]) Last Chest XRAY: Reviewed Pulmonary History: See [...] Description: INTERVENTIONS: 1. Encourage patient or legal high school admissions representative to report early pain and ask [...] per policy 9. Teach patient or legal high school admissions representative interventions for comforting Outcome: Progressing Note: [...] at the bedside 7. Instruct patient/ patient high school admissions representative about use of safety devices 8. Include patient/ patient high school admissions representative in decisions related to safety Outcome: [...] hygiene technique. 7. Identify and instruct patient/patient high school admissions representative in use of appropriate isolation precautionsfor identified infection/symptoms. 8. Provide and discuss with patient/patient high school admissions representative on educational MDRO sheet. 9. Encourage and monitor nutritional status daily and consult production support specialist if indicated. 10. Implement neutropenic guidelines as needed. Outcome: Progressing Note: Evaluation of progress towards goal: Labs and vitals monitored as ordered. Medications administered as ordered. Patient remains free from infection at this time. Problem: Moderate - High Risk Fall Score Description: Ce[place] Fall Score of =/> 25 or indicated by [facility] Assessment Goal: Patient should be free from fall Description: Interventions: 1. [place] to environment 2. Hourly rounds addressing the [...] non-skid footwear 11. Teach patient and patient high school admissions representative to maintain environment for safety and [...] (cane, walker) within reach 19. Request patient high school admissions representative bring adaptive equipment/mobility aids from home or obtain and provide as needed 20. Consult pharmacy regarding effects of med's affecting mobility, cognition, and alternatives 21. Obtain physician order for PT if risk factors associated with mobility are present 22. Obtain physician order for OT as appropriate 23. Utilize diversional activities 24. Educate patient and patient high school admissions representative how to maintain a safe environment during visitationtimes (notify nurse prior to leaving bedside) 25. Consider appropriateness of medical or non-medical insurance coding specialist 26. Set up voiding schedule as appropriate (every 2 hours) Outcome: Progressing Note: Evaluation of progress towards goal: Fall risk assessment preformed and safety measures in place. Education given to family/patient. Will continue to monitor. * Plan of Care - Wojciech Manley [facility] - 07/09/2025 12:05 AM EDT Problem: Inadequate [...] artery stenosis, right CVA (cerebral vascular accident) ([facility]) Mixed hyperlipidemia Smoker Stroke (cerebrum) ([facility]) Last Chest XRAY: Reviewed Pulmonary History: COPD, [...] Description: INTERVENTIONS: 1. Encourage patient or legal high school admissions representative to report early pain and ask [...] per policy 9. Teach patient or legal high school admissions representative interventions for comforting Outcome: Progressing Problem: [...] at the bedside 7. Instruct patient/ patient high school admissions representative about use of safety devices 8. Include patient/ patient high school admissions representative in decisions related to safety Outcome: [...] hygiene technique. 7. Identify and instruct patient/patient high school admissions representative in use of appropriate isolation precautionsfor identified infection/symptoms. 8. Provide and discuss with patient/patient high school admissions representative on educational MDRO sheet. 9. Encourage and monitor nutritional status daily and consult production support specialist if indicated. 10. Implement neutropenic guidelines as needed. Outcome: Progressing Problem: Communication Impairment Goal: Ability to express needs and understand communication Description: INTERVENTIONS 1. Assess patient's communication skills and ability to understand information 2. Provide alternate method of communication if needed i.e. ipad, sign board, pen/paper 3. Collaborate with Speech Therapy to develop effective communication strategies 4. Include patient/patient high school admissions representative in decisions related to communication Outcome: Progressing * CIVIL CAD DESIGNER Procedure Note - Sher Umanzor CCC-CIVIL CAD DESIGNER - 07/08/2025 1:39 PM EDT Speech Therapy Videofluoroscopic Swallow Study Evaluation Discharge Recommendations for Safe Patient Transition CIVIL CAD DESIGNER Therapy Recommendations: Continue ST services Recommendations Diet [...] PO intake following exam. Prognosis Services: Skilled CIVIL CAD DESIGNER services to address above deficits Prognosis/Potential: Good [...] Dysphagia Problem: Swallowing Dates: Start: 07/07/25 Disciplines: CIVIL CAD DESIGNER Goal: STG: Patient will complete safety strategies with minimal assistance during PO intake 90% of the time Dates: Start: 07/07/25 Expected End: 08/11/25 Disciplines: CIVIL CAD DESIGNER Goal: STG: Patient will tolerate therapeutic feeding trials of advanced textures with 90% accuracy with minimal cueing Dates: Start: 07/07/25 Expected End: 08/11/25 Disciplines: CIVIL CAD DESIGNER Template: ST - Rehab Speech Problem: Auditory Comprehension Dates: Start: 07/07/25 Disciplines: CIVIL CAD DESIGNER Goal: LTG: Patient will comprehend communication related to basic medical and social needs and utilize compensatory strategies to maintain safety in a functional living environment Dates: Start: 07/07/25 Expected End: 08/11/25 Disciplines: CIVIL CAD DESIGNER Goal: STG: Patient will complete complex, paragraph level auditory comprehension tasks with 90% accuracy with minimal cueing Dates: Start: 07/07/25 Expected End: 08/11/25 Disciplines: CIVIL CAD DESIGNER Problem: Cognitive Linguistic Dates: Start: 07/07/25 Disciplines: CIVIL CAD DESIGNER Goal: LTG: Patient will display functional cognitive-linguistic skills to demonstrate appropriate communication and safety within daily activities in a functional living environment Dates: Start: 07/07/25 Expected End: 08/11/25 Disciplines: CIVIL CAD DESIGNER Goal: STG: Patient will recall information discussed during therapy session via retelling/answeringquestions with 90% accuracy with minimal cueing Dates: Start: 07/07/25 Expected End: 08/11/25 Disciplines: CIVIL CAD DESIGNER Problem: High Level Language Dates: Start: 07/07/25 Disciplines: CIVIL CAD DESIGNER Goal: LTG: Patient will demonstrate use of self-awareness, goal setting, planning, initiation, self-monitoring and problem solving during daily activities to improve safety and awareness in a functional living environment Dates: Start: 07/07/25 Expected End: 08/11/25 Disciplines: CIVIL CAD DESIGNER Goal: STG: Patient will demonstrate functional problem solving and safety awareness with 90% accuracy in daily living tasks in order to increase safe interactions with environment and decrease assistance from caregivers Dates: Start: 07/07/25 Expected End: 08/11/25 Disciplines: CIVIL CAD DESIGNER Goal: STG: Patient will complete simple to complex organization, scheduling, planning and reasoningtasks to improve problem solving and safety awareness with 90% accuracy with minimal cueing Dates: Start: 07/07/25 Expected End: 08/11/25 Disciplines: CIVIL CAD DESIGNER Problem: Verbal Expression Dates: Start: 07/07/25 Disciplines: CIVIL CAD DESIGNER Goal: LTG: Patient will utilize compensatory strategies to communicate wants and needs effectively to different conversational partners, maintain safety and participate socially in a functional living environment Dates: Start: 07/07/25 Expected End: 08/11/25 Disciplines: CIVIL CAD DESIGNER Goal: STG: Patient will complete simple to complex divergent and convergent naming tasks with 90% accuracy with minimal cueing to improve thought organization Dates: Start: 07/07/25 Expected End: 08/11/25 Disciplines: CIVIL CAD DESIGNER Speech Therapy Care Plan (Resolved) There are no resolved problems. Principal Problem: Stroke (cerebrum) ([facility]) * Plan of Care - Wojciech ManleyMCKENNA - 07/08/2025 2:53 AM EDT Problem: Inadequate [...] artery stenosis, right CVA (cerebral vascular accident) ([facility]) Mixed hyperlipidemia Smoker Last Chest XRAY: Reviewed [...] Description: INTERVENTIONS: 1. Encourage patient or legal high school admissions representative to report early pain and ask [...] per policy 9. Teach patient or legal high school admissions representative interventions for comforting Outcome: Progressing Note: [...] at the bedside 7. Instruct patient/ patient high school admissions representative about use of safety devices 8. Include patient/ patient high school admissions representative in decisions related to safety Outcome: [...] hygiene technique. 7. Identify and instruct patient/patient high school admissions representative in use of appropriate isolation precautionsfor identified infection/symptoms. 8. Provide and discuss with patient/patient high school admissions representative on educational MDRO sheet. 9. Encourage and monitor nutritional status daily and consult production support specialist if indicated. 10. Implement neutropenic guidelines as needed. Outcome: Progressing Note: Evaluation of progress towards goal: Labs and vitals monitored as ordered. Medications administered as ordered. Patient remains free from infection at this time. Problem: Knowledge Deficit Goal: Patient/patient high school admissions representative demonstrates understanding of disease process, treatment [...] develop effective communication strategies 4. Include patient/patient high school admissions representative in decisions related to communication Outcome: [...] Collaborate with ancillary departments 14. Include patient/patient high school admissions representative in decisions related to anxiety Outcome: [...] to assist with coping 8. Involve patient's high school admissions representative in care Outcome: Progressing Note: Evaluation [...] supplement as ordered 13. Collaborate with clinical production support specialist 14. Include patient/ patient's high school admissions representative in decisions related to nutrition Outcome: [...] at the bedside 7. Instruct patient/ patient high school admissions representative about use of safety devices 8. Include patient/ patient high school admissions representative in decisions related to safety Outcome: Progressing Note: Evaluation of progress towards goal: Bedrest. A&Ox4. Call light in reach. Pt. Agrees to call for assistance. * PT/OT/CIVIL CAD DESIGNER - Sher Umanzor CCC-CIVIL CAD DESIGNER - 07/07/2025 3:13 PM EDT Speech Therapy Evaluation Bedside Swallow/Feeding Evaluation Speech & Language Cognitive Evaluation Discharge Recommendations for Safe Patient Transition CIVIL CAD DESIGNER Therapy Recommendations: Continue ST services Video swallow [...] decline resulting from CVA. Prognosis Services: Skilled CIVIL CAD DESIGNER services to address above deficits Prognosis/Potential: Good Considerations: Age, Cognition Discharge Recommendations for Safe Patient Transition CIVIL CAD DESIGNER Therapy Recommendations: Continue ST services Impressions Receptive [...] should be further evaluated. Prognosis Services: Skilled CIVIL CAD DESIGNER services to address the above deficits Prognosis/Potential: [...] Dysphagia Problem: Swallowing Dates: Start: 07/07/25 Disciplines: CIVIL CAD DESIGNER Goal: STG: Patient will complete safety strategies with minimal assistance during PO intake 90% of the time Dates: Start: 07/07/25 Expected End: 08/11/25 Disciplines: CIVIL CAD DESIGNER Goal: STG: Patient will tolerate therapeutic feeding trials of advanced textures with 90% accuracy with minimal cueing Dates: Start: 07/07/25 Expected End: 08/11/25 Disciplines: CIVIL CAD DESIGNER Template: ST - Rehab Speech Problem: Auditory Comprehension Dates: Start: 07/07/25 Disciplines: CIVIL CAD DESIGNER Goal: LTG: Patient will comprehend communication related to basic medical and social needs and utilize compensatory strategies to maintain safety in a functional living environment Dates: Start: 07/07/25 Expected End: 08/11/25 Disciplines: CIVIL CAD DESIGNER Goal: STG: Patient will complete complex, paragraph level auditory comprehension tasks with 90% accuracy with minimal cueing Dates: Start: 07/07/25 Expected End: 08/11/25 Disciplines: CIVIL CAD DESIGNER Problem: Cognitive Linguistic Dates: Start: 07/07/25 Disciplines: CIVIL CAD DESIGNER Goal: LTG: Patient will display functional cognitive-linguistic skills to demonstrate appropriate communication and safety within daily activities in a functional living environment Dates: Start: 07/07/25 Expected End: 08/11/25 Disciplines: CIVIL CAD DESIGNER Goal: STG: Patient will recall information discussed during therapy session via retelling/answeringquestions with 90% accuracy with minimal cueing Dates: Start: 07/07/25 Expected End: 08/11/25 Disciplines: CIVIL CAD DESIGNER Problem: High Level Language Dates: Start: 07/07/25 Disciplines: CIVIL CAD DESIGNER Goal: LTG: Patient will demonstrate use of self-awareness, goal setting, planning, initiation, self-monitoring and problem solving during daily activities to improve safety and awareness in a functional living environment Dates: Start: 07/07/25 Expected End: 08/11/25 Disciplines: CIVIL CAD DESIGNER Goal: STG: Patient will demonstrate functional problem solving and safety awareness with 90% accuracy in daily living tasks in order to increase safe interactions with environment and decrease assistance from caregivers Dates: Start: 07/07/25 Expected End: 08/11/25 Disciplines: CIVIL CAD DESIGNER Goal: STG: Patient will complete simple to complex organization, scheduling, planning and reasoningtasks to improve problem solving and safety awareness with 90% accuracy with minimal cueing Dates: Start: 07/07/25 Expected End: 08/11/25 Disciplines: CIVIL CAD DESIGNER Problem: Verbal Expression Dates: Start: 07/07/25 Disciplines: CIVIL CAD DESIGNER Goal: LTG: Patient will utilize compensatory strategies to communicate wants and needs effectively to different conversational partners, maintain safety and participate socially in a functional living environment Dates: Start: 07/07/25 Expected End: 08/11/25 Disciplines: CIVIL CAD DESIGNER Goal: STG: Patient will complete simple to complex divergent and convergent naming tasks with 90% accuracy with minimal cueing to improve thought organization Dates: Start: 07/07/25 Expected End: 08/11/25 Disciplines: CIVIL CAD DESIGNER Speech Therapy Care Plan (Resolved) There are no resolved problems. Active Problems: * No active hospital problems. * documented in this encounter Plan of Treatment DateTypeDepartmentCare Team (Latest Contact Info)Tlqrfquqyww89/04/2025 1:30 PM ESTOffice Visit [facility], A Department of [address] [place] [address] Andrew Terrell MD [address] [place] [address] [address] [place] [address] NameTypePriorityAssociated DiagnosesDate/TimeNeuro InvasivCardiac CathRoutine 07/09/2025 12:45 PM EDTdocumented as of this encounter Procedures Procedure NamePriorityDate/TimeAssociated DiagnosisCommentsEXTRA TUBES LAVENDER QGGGaurzav22/21/2025 5:54 AM EDT EXTRA RFRBXEbajvpg37/21/2025 5:54 AM EDT COMPREHENSIVE METABOLIC IXDYAMiarkyz16/21/2025 5:54 AM EDT COMPREHENSIVE METABOLIC JCXZWYxcnpns38/20/2025 3:34 AM EDT CBC WITH AUTO FNJHOAQVIMFFAhzdxso45/19/2025 3:28 AM EDT COMPREHENSIVE METABOLIC XCGEUZzxpyne75/19/2025 3:28 AM EDT NEURO KTCSCGXPHfkciou34/18/2025 12:45 PM EDTNEURO UHEMEWQCAsrxrag13/18/2025 12:45 PM EDTCBC WITH AUTO EFOWWASBUVCTDqkgisf45/18/2025 3:48 AM EDT COMPREHENSIVE METABOLIC BVSZQMnhmygu09/18/2025 3:48 AM EDT FL SWALLOW MOTILITY TYKNQDMJSjohxrr52/17/2025 1:46 PM EDT ECHO COMPLETE W LNAKJHIGPjbppuf52/17/2025 1:37 PM EDT VASC CAROTID DUPLEX XMVYNKYZKDdztouz75/17/2025 11:11 AM EDT CBC WITH AUTO NXQBYKJNFIMQAgqjeor94/17/2025 3:14 AM EDT LIPID OBNJVNQFhfpato60/17/2025 3:14 AM EDT COMPREHENSIVE METABOLIC PVSDHPowkwva98/17/2025 3:14 AM EDT MR BRAIN WO VJTJRFFE74/16/2025 9:02 PM EDT XR CHEST 1 VJTcggvrn36/16/2025 6:56 PM EDT ECG 12-RCTCVVMO34/16/2025 5:35 PM EDT CBC WITH AUTO XIIMBBWUQJVYKespogu22/16/2025 3:49 PM EDT B-TYPE NATRIURETIC PEPTIDEAdd-On07/07/2025 3:49 PM EDT HEMOGLOBIN L5CVygapgy33/16/2025 3:49 PM EDT COMPREHENSIVE METABOLIC SYESPPfdrdvg13/16/2025 3:49 PM EDT BEDSIDE QHGWEZDGjaylvh37/16/2025 2:[address] CEREBRAL PERF QVJLEMHBTPXK10/16/2025 2:38 PM EDT documented in this encounter Results * Lavender Top (07/12/2025 5:54 AM EDT)ComponentValueRef RangeTest Method Analysis TimePerformed AtPathologist SignatureExtra TubeAuto Resulted 07/12/2025 7:01 AM [facility] LABORATORYSpecimen (Source) Anatomical Location / LateralityCollection Method / VolumeCollection Time Received TimeBloodVenous blood / Trumoqr8707/12/2025 5:54 AM EDT1 6:11 AM EDT Narrative Authorizing ProviderResult TypeResult StatusMojerzy Aguilera MDLAB BLOOD ORDERABLESFinal ResultPerforming OrganizationAddressCity/State/ZIP CodePhone Number [facility] [address] [place] [phone], * (ABNORMAL) Comprehensive metabolic panel (07/12/2025 5:54 AM EDT)Component ValueRef RangeTest MethodAnalysis TimePerformed AtPathologist SignatureSODIUM [id number] - 146 mmol/L1 6:49 AM [facility] POTASSIUM4.03.5 - 5.0 mmol/L1 6:49 AM [facility] UQIIXBVCUJCBNUAKYW53789 - 109 mmol/L1 6:49 AM [facility] LABORATORYCARB[place] CVDLVNW3319 - 32 mmol/L1 6:49 AM [facility] LABORATORYANION GAP85 - 15 mmol/L1 6:49 AM EDT [facility] LABORATORYBLOOD UREA DHMSWZUZ445 - 27 mg/dL07/12/2025 6:49 AM [facility] LABORATORYCREATININE0.750.60 - 1.30 mg/dL 07/12/2025 6:49 AM [facility] LABORATORYComment:METHOD TRACEABLE TO IDMS XLOSBCAYBJNINWX1855 - 99 mg/dL07/12/2025 6:49 AM [facility] LABORATORYCALCIUM8.68.5 - 10.5 mg/dL07/12/2025 6:49 AM EDT [facility] LABORATORYTOTAL PROTEIN5.6(L)6.0 - 8.0 g/dL07/12/2025 6:49 AM [facility] LABORATORYALBUMIN3.43.2 - 5.3 g/dL 07/12/2025 6:49 AM [facility] LABORATORYALKALINE PHOSPHATASE 5339 - 130 U/L1 6:49 AM [facility] RNARHDUJGSHUY30 <=41 U/L1 6:49 AM [facility] AXQQJPJFKOLJW41<=40 U/L 07/12/2025 6:49 AM [facility] LABORATORYBILIRUBIN,TOTAL0.90.3 - 1.2 mg/dL07/12/2025 6:49 AM [facility]OR[facility]ORYEGFR Non- Race Dependent>90>=60 ml/min/1.73sq.m1 6:49 AM [facility] LABORATORYComment: Reported eGFR is based on the CKD-EPI 2020 equation that does not use a race coefficient. Specimen (Source)Anatomical Location / LateralityCollection Method / Volume Collection TimeReceived TimeBloodVenous blood / UnknownVenipuncture / Unknown 07/12/2025 5:54 AM EDT1 6:11 AM EDT Narrative Authorizing ProviderResult TypeResult StatusAhmed Deven Guzman MDLAB BLOOD ORDERABLESFinal ResultPerforming OrganizationAddressCity/State/ZIP CodePhone Number [facility] [address] [place] [address], * (ABNORMAL) Comprehensive metabolic panel (07/11/2025 3:34 AM EDT)Component ValueRef RangeTest MethodAnalysis TimePerformed AtPathologist SignatureSODIUM [id number] - 146 mmol/L1 4:40 AM [facility] POTASSIUM4.23.5 - 5.0 mmol/L1 4:40 AM [facility] VTRXDOBGYCZECHUNNN7812 - 109 mmol/L1 4:40 AM [facility] LABORATORYCAR[place] SSUFNKA1807 - 32 mmol/L1 4:40 AM [facility] LABORATORYANION GAP75 - 15 mmol/L1 4:40 AM EDT [facility] LABORATORYBLOOD UREA FKXSKAVN364 - 27 mg/dL07/11/2025 4:40 AM [facility] LABORATORYCREATININE0.790.60 - 1.30 mg/dL 07/11/2025 4:40 AM [facility] LABORATORYComment:METHOD TRACEABLE TO IDSC UELSRBALCAJKSRJ8691 - 99 mg/dL07/11/2025 4:40 AM [facility] LABORATORYCALCIUM8.68.5 - 10.5 mg/dL07/11/2025 4:40 AM EDT [facility] LABORATORYTOTAL PROTEIN5.7(L)6.0 - 8.0 g/dL07/11/2025 4:40 AM [facility] LABORATORYALBUMIN3.43.2 - 5.3 g/dL 07/11/2025 4:40 AM [facility] LABORATORYALKALINE PHOSPHATASE 5239 - 130 U/L1 4:40 AM [facility] CARQUWSHUTSGT94 <=41 U/L1 4:40 AM [facility] KJMBQXNDDAJLA35<=40 U/L 07/11/2025 4:40 AM [facility] LABORATORYBILIRUBIN,TOTAL1.00.3 - 1.2 mg/dL07/11/2025 4:40 AM [facility] LABORATORYEGFR Non- Race Dependent>90>=60 ml/min/1.73sq.m1 4:40 AM [facility] LABORATORYComment: Reported eGFR is based on the CKD-EPI 2020 equation that does not use a race coefficient. Specimen (Source)Anatomical Location / LateralityCollection Method / Volume Collection TimeReceived TimeBloodVenous blood / UnknownVenipuncture / Unknown 07/11/2025 3:34 AM EDT1 4:01 AM EDT Narrative Authorizing ProviderResult TypeResult StatusAhmed Deven Guzman MDLAB BLOOD ORDERABLESFinal ResultPerforming OrganizationAddressCity/State/ZIP CodePhone Number [facility] [address] [place] [address], * Comprehensive metabolic panel (07/10/2025 3:28 AM EDT)ComponentValueRef Range Test MethodAnalysis TimePerformed AtPathologist LxabvfyquLWWHAY260015 - 146 mmol/L1 4:10 AM [facility] LABORATORYPOTASSIUM4.33.5 - 5.0 mmol/L1 4:10 AM [facility] LABORATORYCHLORIDE 9998 - 109 mmol/L1 4:10 AM [facility] [place] ROIAPGH1859 - 32 mmol/L1 4:10 AM [facility] LABORATORYANION GAP85 - 15 mmol/L1 4:10 AM [facility] LABORATORYBLOOD UREA PWFBZMPD297 - 27 mg/dL07/10/2025 4:10 AM [facility] LABORATORYCREATININE0.780.60 - 1.30 mg/dL07/10/2025 4:10 AM [facility] LABORATORYComment:METHOD TRACEABLE TO IDMS XKQXAXIQSWAWSPF6874 - 99 mg/dL07/10/2025 4:10 AM [facility] LABORATORYCALCIUM8.98.5 - 10.5 mg/dL07/10/2025 4:10 AM [facility] LABORATORYTOTAL PROTEIN6.06.0 - 8.0 g/dL07/10/2025 4:10 AM [facility] LABORATORYALBUMIN3.53.2 - 5.3 g/dL07/10/2025 4:10 AM EDT [facility] LABORATORYALKALINE IWFGWYSOJIZ4128 - 130 U/L 07/10/2025 4:10 AM [facility] OFCSQIQRBCXOG39<=41 U/L 07/10/2025 4:10 AM [facility] GZYEIBRTJQAKF33<=40 U/L 07/10/2025 4:10 AM [facility] LABORATORYBILIRUBIN,TOTAL1.10.3 - 1.2 mg/dL07/10/2025 4:10 AM [facility] LABOR[facility]ORYEGFR Non- Race Dependent>90>=60 ml/min/1.73sq.m1 4:10 AM [facility] LABORATORYComment: Reported eGFR is based on the CKD-EPI 2020 equation that does not use a race coefficient. Specimen (Source)Anatomical Location / LateralityCollection Method / Volume Collection TimeReceived TimeBloodVenous blood / UnknownVenipuncture / Unknown 07/10/2025 3:28 AM EDT1 3:42 AM EDT Narrative Authorizing ProviderResult TypeResult StatusAhmed Deven Guzman MDLAB BLOOD ORDERABLESFinal ResultPerforming OrganizationAddressCity/State/ZIP CodePhone Number [facility] [address] [place] [address], * (ABNORMAL) CBC auto differential (07/10/2025 3:28 AM EDT)ComponentValueRef RangeTest MethodAnalysis TimePerformed AtPathologist GdtpmlspvOVL14.04 - 11 x10E9/L1 3:55 AM [facility] LABORATORYRBC Count4.30 4.1 - 5.7 X10E12/L1 3:55 AM [facility] Ywtitsiefc10.6(L)13 - 17 g/dL07/10/2025 3:55 AM [facility] DRFEAEDANMXumagwfbpk03.9(L)39 - 50 %07/10/2025 3:55 AM [facility] HDIEMKFFTVTGK4112 - 100 fL07/10/2025 3:55 AM [facility] ZWFMKRFPUTSPP16.427 - 34 pg07/10/2025 3:55 AM [facility] NTNXSPAVEUJYJR26.332 - 36 g/dL07/10/2025 3:55 AM [facility] OUKKWOMBXNOBA61.911.5 - 15 %07/10/2025 3:55 AM [facility] LABORATORYPlatelet Odtje487801 - 450 X10E9/L1 3:55 AM EDT [facility] LABORATORYMPV7.47 - 12 fL07/10/2025 3:55 AM [facility] LABORATORYNeutrophils %75.4%07/10/2025 3:55 AM [facility] LABORATORYLymphocytes %10.4%07/10/2025 3:55 AM [facility] LABORATORYMonocytes %10.7%07/10/2025 3:55 AM [facility] LABORATORYEosinophils %3.0%07/10/2025 3:55 AM [facility] LABORATORYBasophils %0.5%07/10/2025 3:55 AM [facility] LABORATORYNeutrophils Absolute (A)7.5(H)1.5 - 6.6 10*3/uL 07/10/2025 3:55 AM [facility] LABORATORYLymphocytes Absolute 1.01.0 - 3.5 10*3/uL07/10/2025 3:55 AM [facility] Monocytes Absolute1.1(H)0.0 - 0.9 10*3/uL07/10/2025 3:55 AM [facility] LABORATORYEosinophils Absolute0.30.0 - 0.4 10*3/uL07/10/2025 3:55 AM [facility] LABORATORYBasophils Absolute0.10.0 - 0.2 10*3/uL 07/10/2025 3:55 AM [facility] LABORATORYDifferential Type AUTOMATED MZJCCCOFHHEK17/19/2025 3:55 AM [facility] LABORATORYSpecimen (Source)Anatomical Location / LateralityCollection Method / VolumeCollection TimeReceived TimeBloodVenous blood / UnknownVenipuncture / Lfywlhp7507/10/2025 3:28 AM EDT1 3:42 AM EDT Narrative Authorizing ProviderResult TypeResult StatusAhmed Deven Guzman MDLAB BLOOD ORDERABLESFinal ResultPerforming OrganizationAddressCity/State/ZIP CodePhone Number [facility] [address] [place] [address], * (ABNORMAL) Comprehensive metabolic panel (07/09/2025 3:48 AM EDT)Component ValueRef RangeTest MethodAnalysis TimePerformed AtPathologist SignatureSODIUM 257322 - 146 mmol/L1 4:57 AM [facility] POTASSIUM4.13.5 - 5.0 mmol/L1 4:57 AM [facility] RQGIDLRXXYCXZJOBIG3090 - 109 mmol/L1 4:57 AM [facility] LABORATORYCARBON PSAAHZF3088 - 32 mmol/L1 4:57 AM [facility] LABORATORYANION GAP95 - 15 mmol/L1 4:57 AM EDT [facility] LABORATORYBLOOD UREA UNMXIUVF651 - 27 mg/dL07/09/2025 4:57 AM [facility] LABORATORYCREATININE0.860.60 - 1.30 mg/dL 07/09/2025 4:57 AM [facility] LABORATORYComment:METHOD TRACEABLE TO IDMS JDAEKYYGWYGNVGK710(H)65 - 99 mg/dL07/09/2025 4:57 AM [facility] LABORATORYCALCIUM8.88.5 - 10.5 mg/dL07/09/2025 4:57 AM [facility] LABORATORYTOTAL PROTEIN6.06.0 - 8.0 g/dL 07/09/2025 4:57 AM [facility] LABORATORYALBUMIN3.73.2 - 5.3 g/dL07/09/2025 4:57 AM [facility] LABORATORYALKALINE YBXCORVEQLW3226 - 130 U/L1 4:57 AM [facility] BTMMYWUHVLOON02<=41 U/L1 4:57 AM [facility] TJJSIZOCYNXYC93<=40 U/L1 4:57 AM [facility] LABORATORYBILIRUBIN,TOTAL0.90.3 - 1.2 mg/dL07/09/2025 4:57 AM [facility] LABORATORYEGFR Non-Race Dependent>90>=60 ml/min/1.73sq.m 07/09/2025 4:57 AM [facility] LABORATORYComment: Reported eGFR is based on the CKD-EPI 2020 equation that does not use a race coefficient. Specimen (Source)Anatomical Location / LateralityCollection Method / Volume Collection TimeReceived TimeBloodVenous blood / UnknownVenipuncture / Unknown 07/09/2025 3:48 AM EDT1 4:12 AM EDT Narrative Authorizing ProviderResult TypeResult StatusAhmed Deven Guzman MDLAB BLOOD ORDERABLESFinal ResultPerforming OrganizationAddressCity/State/ZIP CodePhone Number [facility] [address] [place] [address], * (ABNORMAL) CBC auto differential (07/09/2025 3:48 AM EDT)ComponentValueRef RangeTest MethodAnalysis TimePerformed AtPathologist OxzjikzzoAFD55.64 - 11 x10E9/L1 4:24 AM [facility] LABORATORYRBC Count4.34 4.1 - 5.7 X10E12/L1 4:24 AM [facility] Lrrrlbjrsg69.9(L)13 - 17 g/dL07/09/2025 4:24 AM [facility] VHIWRKOQIGQgxtbvtvgh39.2(L)39 - 50 %07/09/2025 4:24 AM [facility] DCIZLTUBCMYDH5958 - 100 fL07/09/2025 4:24 AM [facility] ROYUZPAMJOZGJ43.727 - 34 pg07/09/2025 4:24 AM [facility] EZCNPYMOXFVLOO35.832 - 36 g/dL07/09/2025 4:24 AM [facility] LUGCUZKIKKWIT64.011.5 - 15 %07/09/2025 4:24 AM [facility] LABORATORYPlatelet Ozlwj147068 - 450 X10E9/L1 4:24 AM EDT [facility] LABORATORYMPV7.57 - 12 fL07/09/2025 4:24 AM [facility] LABORATORYNeutrophils %74.6%07/09/2025 4:24 AM [facility] LABORATORYLymphocytes %11.8%07/09/2025 4:24 AM [facility] LABORATORYMonocytes %10.8%07/09/2025 4:24 AM [facility] LABORATORYEosinophils %2.1%07/09/2025 4:24 AM [facility] LABORATORYBasophils %0.7%07/09/2025 4:24 AM [facility] LABORATORYNeutrophils Absolute (A)7.9(H)1.5 - 6.6 10*3/uL 07/09/2025 4:24 AM [facility] LABORATORYLymphocytes Absolute 1.31.0 - 3.5 10*3/uL07/09/2025 4:24 AM [facility] Monocytes Absolute1.1(H)0.0 - 0.9 10*3/uL07/09/2025 4:24 AM [facility] LABORATORYEosinophils Absolute0.20.0 - 0.4 10*3/uL07/09/2025 4:24 AM [facility] LABORATORYBasophils Absolute0.10.0 - 0.2 10*3/uL 07/09/2025 4:24 AM [facility] LABORATORYDifferential Type AUTOMATED KZDXJWAVYBCJ31/18/2025 4:24 AM [facility] LABORATORYSpecimen (Source)Anatomical Location / LateralityCollection Method / VolumeCollection TimeReceived TimeBloodVenous blood / UnknownVenipuncture / Nrhphll5107/09/2025 3:48 AM EDT1 4:12 AM EDT Narrative Authorizing ProviderResult TypeResult StatusAhmed Deven Guzman MDLAB BLOOD ORDERABLESFinal ResultPerforming OrganizationAddressCity/State/ZIP CodePhone Number [facility] [address] [place] [address], * Fluoroscopy swallow motility function (07/08/2025 1:46 [...] on 07/08/2025 1:55 PM Authorizing ProviderResult TypeResult StatusMouhammad A Jumaa MDIMG FLUOROSCOPY ORDERABLESFinal Result * Echo complete W/ contrast (07/08/2025 1:37 PM EDT)ComponentValueRef RangeTest MethodAnalysis TimePerformed AtPathologist SignatureLVOT stroke ruwwzq82.58ml VZBQGPFSH5521 - 44 %XCELERALVIDd5.906.58 - 9.14 cmXCELERALVIDs3.703.82 - 5.79 cmXCELERAIVS0.900.6 - 1.1 cmXCELERAPW0.900.6 - 1.1 cmXCELERALVOT diameter1.90 cmXCELERATDI6.31cm/sXCELERAMV TDI E' (medial)5.98cm/sXCELERAE/A ratio0.82 XCELERAE wave deceleration tvyi713.00msecXCELERAMV Peak E Vel76.00cm/sXCELERA MV Peak A Vel92.80cm/sXCELERALA size2.70cmXCELERARV diastolic dimension (basal)32.0qyKSJOUKNPUKFA5.83cmXCELERAAV peak tvv801.00cm/sXCELERALVOT peak vel1.31m/sXCELERAAV VTI25.10cmXCELERALVOT peak VTI25.60cmXCELERAAV mean gradient5.00mmHgXCELERAAV peak gradient7.62mmHgXCELERAAV valve area2.89XCELERA Valve area - Index1.3XCELERAMV pressure 1/2 time77.00msXCELERAMV valve area p 1/2 method2.51bd1ECIEBZRHY peak gradient3.11mmHgXCELERALV ESV A4C22.60mL XCELERALV RWT 2D30.51XCELERAAV Velocity Ratio1.02XCELERALeft Ventricle Mass 209.153015718734369rSEFAYCEKpwfweozlmfhmmaj Septum Diastolic Thickness by 2D9 cmXCELERAEst. RA wjmnsnzv3euVwOGHPSSELT area16.9dm8LWRJZQTANDMDL-1.90XCELERA ZLVIDD-2.73XCELERAAnatomical RegionLateralityModalityChestN/AUltrasound Specimen (Source)Anatomical Location / LateralityCollection [...] due to patient's respiration. Authorizing ProviderResult TypeResult StatusRosibel Zhang [facility] [place] ECHO ORDERABLESFinal Result * Vas carotid duplex [...] phone number besidetheir name. Authorizing ProviderResult TypeResult StatusRosibel Zhang [facility] [place] VASCULAR ORDERABLESFinal Result * Comprehensive metabolic panel (07/08/2025 3:14 AM EDT)ComponentValueRef Range Test MethodAnalysis TimePerformed AtPathologist HdxykhqfsXCRKXF518160 - 146 mmol/L1 4:33 AM [facility] LABORATORYPOTASSIUM4.33.5 - 5.0 mmol/L1 4:33 AM [facility] LABORATORYCHLORIDE 40494 - 109 mmol/L1 4:33 AM [facility] [place] WLNAMJB7431 - 32 mmol/L1 4:33 AM [facility] LABORATORYANION GAP75 - 15 mmol/L1 4:33 AM [facility] LABORATORYBLOOD UREA FWRFUOCQ594 - 27 mg/dL07/08/2025 4:33 AM [facility] LABORATORYCREATININE0.780.60 - 1.30 mg/dL07/08/2025 4:33 AM [facility] LABORATORYComment:METHOD TRACEABLE TO IDMS BCVVZKAXBFXOKPT5697 - 99 mg/dL07/08/2025 4:33 AM [facility] LABORATORYCALCIUM9.08.5 - 10.5 mg/dL07/08/2025 4:33 AM [facility] LABORATORYTOTAL PROTEIN6.56.0 - 8.0 g/dL07/08/2025 4:33 AM [facility] LABORATORYALBUMIN3.93.2 - 5.3 g/dL07/08/2025 4:33 AM [facility] LABORATORYALKALINE OBIRWDDEOJD5237 - 130 U/L 07/08/2025 4:33 AM [facility] VACTRWBHBKCOZ45<=41 U/L 07/08/2025 4:33 AM [facility] GZIZHRICPSJUG53<=40 U/L 07/08/2025 4:33 AM [facility] LABORATORYBILIRUBIN,TOTAL0.80.3 - 1.2 mg/dL07/08/2025 4:33 AM [facility] LABOR[facility]ORYEGFR Non- Race Dependent>90>=60 ml/min/1.73sq.m1 4:33 AM [facility] LABORATORYComment: Reported eGFR is based on the CKD-EPI 2020 equation that does not use a race coefficient. Specimen (Source)Anatomical Location / LateralityCollection Method / Volume Collection TimeReceived TimeBloodVenous blood / UnknownVenipuncture / Unknown 07/08/2025 3:14 AM EDT1 3:51 AM EDT Narrative Authorizing ProviderResult TypeResult StatusAhmed Deven Guzman MDLAB BLOOD ORDERABLESFinal ResultPerforming OrganizationAddressCity/State/ZIP CodePhone Number [facility] [address] [place] [address], * (ABNORMAL) CBC auto differential (07/08/2025 3:14 AM EDT)ComponentValueRef RangeTest MethodAnalysis TimePerformed AtPathologist VnlqshcfsGHV42.3(H)4 - 11 x10E9/L1 4:13 AM [facility] LABORATORYRBC Count4.46 4.1 - 5.7 X10E12/L1 4:13 AM [facility] Druuyspswx47.013 - 17 g/dL07/08/2025 4:13 AM [facility] VLJSOVYESZLvqampmozf30.239 - 50 %07/08/2025 4:13 AM [facility] UCYDOUFCZWPYF0178 - 100 fL07/08/2025 4:13 AM [facility] YYIVKHLBTKWOU26.127 - 34 pg07/08/2025 4:13 AM [facility] CXCFHPRWNCZUTA49.132 - 36 g/dL07/08/2025 4:13 AM [facility] XONCTCLAWOQFF42.411.5 - 15 %07/08/2025 4:13 AM [facility] LABORATORYPlatelet Prebt587454 - 450 X10E9/L1 4:13 AM T [facility] LABORATORYMPV7.77 - 12 fL07/08/2025 4:13 AM [facility] LABORATORYNeutrophils %84.9%07/08/2025 4:13 AM [facility] LABORATORYLymphocytes %5.3%07/08/2025 4:13 AM [facility] LABORATORYMonocytes %9.7%07/08/2025 4:13 AM [facility] LABORATORYEosinophils %0.0%07/08/2025 4:13 AM [facility] LABORATORYBasophils %0.1%07/08/2025 4:13 AM [facility] LABORATORYNeutrophils Absolute (A)11.2(H)1.5 - 6.6 10*3/uL 07/08/2025 4:13 AM [facility] LABORATORYLymphocytes Absolute 0.7(L)1.0 - 3.5 10*3/uL07/08/2025 4:13 AM [facility] LABORATORYMonocytes Absolute1.3(H)0.0 - 0.9 10*3/uL07/08/2025 4:13 AM EDT [facility] LABORATORYEosinophils Absolute0.00.0 - 0.4 10*3/uL 07/08/2025 4:13 AM [facility] LABORATORYBasophils Absolute0.0 0.0 - 0.2 10*3/uL07/08/2025 4:13 AM [facility] Differential TypeAUTOMATED UVZFXQWQZKVG96/17/2025 4:13 AM [facility] LABORATORYSpecimen (Source)Anatomical Location / LateralityCollection Method / VolumeCollection TimeReceived TimeBloodVenous blood / Unknown Venipuncture / Kbrsugw0307/08/2025 3:14 AM EDT1 3:51 AM EDT Narrative Authorizing ProviderResult TypeResult StatusAhmed A Ba Theeb MDLAB BLOOD ORDERABLESFinal ResultPerforming OrganizationAddressCity/State/ZIP CodePhone Number [facility] [address] [place] [address], * (ABNORMAL) Lipid profile (07/08/2025 3:14 AM EDT)ComponentValueRef RangeTest MethodAnalysis TimePerformed AtPathologist BokgfgxayMIHXCDVAMUR312(L)150 - 200 mg/dL07/08/2025 4:33 AM [facility] RMEWYLTEOGYNZFMNEGLBBE7958 - 150 mg/dL07/08/2025 4:33 AM [facility] LABORATORYHDL SJNODJTOGYZ84>39 mg/dL07/08/2025 4:33 AM [facility] LABORATORYComment: HDL <40 mg/dL - High Risk HDL > or = 40mg/dL- Desirable HDL >60 mg/dL - Negative Risk LDL (CALC)51<130 mg/dL07/08/2025 4:33 AM [facility] Comment: LDL <100 mg/dL - Desirable LDL >160 mg/dL - High Risk CHOLESTEROL:HDL2.31.0 - 5.010 4:33 AM [facility] LABORATORYVERY LOW VMUWKGAHDZG455 - 30 mg/dL07/08/2025 4:33 AM [facility] LABORATORYSpecimen (Source)Anatomical Location / Laterality Collection Method / VolumeCollection TimeReceived TimeBloodVenous blood / UnknownVenipuncture / Zlmbbrr4007/08/2025 3:14 AM EDT1 3:51 AM EDT Narrative Authorizing ProviderResult TypeResult StatusKhalesonia hZang MDLAB BLOOD ORDERABLESFinal ResultPerforming OrganizationAddressCity/State/ZIP CodePhone Number [facility] [address] [place] [address], * MR brain without contrast (07/07/2025 9:02 [...] on 07/07/2025 9:12 PM Authorizing ProviderResult TypeResult StatusKhrafael Zhang MDDemetrius MRI ORDERABLESFinal Result * X-ray chest 1 [...] on 07/07/2025 7:20 PM Authorizing ProviderResult TypeResult StatusAhkellee Guzman MDG DIAGNOSTIC IMAGING ORDERABLESFinal Result * ECG 12 lead (07/07/2025 5:35 PM EDT)Specimen (Source)Anatomical Location / LateralityCollection Method / VolumeCollection TimeReceived Time07/07/2025 5:35 PM EDT Narrative TRACEMASTERVUE - 07/07/2025 5:52 PM EDT Authorizing ProviderResult TypeResult StatusAhkellee Guzman MDECG ORDERABLES Final ResultPerforming OrganizationAddressCity/State/ZIP CodePhone Number TRACEMASTERVUE * B-type natriuretic peptide (07/07/2025 3:49 PM EDT)ComponentValueRef RangeTest MethodAnalysis TimePerformed AtPathologist OnsuuerpaQQQ49<=100 pg/mL07/07/2025 6:01 PM [facility] LABORATORYSpecimen (Source)Anatomical Location / LateralityCollection Method / VolumeCollection TimeReceived Time BloodVenous blood / UnknownVenipuncture / Vscymyo2607/07/2025 3:49 PM EDT 07/07/2025 4:02 PM EDT Narrative Authorizing ProviderResult TypeResult StatusAhmed Deven Guzman MDLAB BLOOD ORDERABLESFinal ResultPerforming OrganizationAddressCity/State/ZIP CodePhone Number [facility] [address] [place] [address], * (ABNORMAL) CBC auto differential (07/07/2025 3:49 PM EDT)ComponentValueRef RangeTest MethodAnalysis TimePerformed AtPathologist SignatureWBC9.54 - 11 x10E9/L1 4:21 PM [facility] LABORATORYRBC Count4.53 4.1 - 5.7 X10E12/L1 4:21 PM [facility] Wdhkqwjgkp85.313 - 17 g/dL07/07/2025 4:21 PM [facility] VHFKJFBVQOMmepcrxmdb44.039 - 50 %07/07/2025 4:21 PM [facility] EYMPOLPAVOAWE0429 - 100 fL07/07/2025 4:21 PM [facility] DGZSKAOVVTSVB55.427 - 34 pg07/07/2025 4:21 PM [facility] HHDUQRSVVESHSN87.432 - 36 g/dL07/07/2025 4:21 PM [facility] ETYZMLKJOLVHV27.811.5 - 15 %07/07/2025 4:21 PM [facility] LABORATORYPlatelet Unihe131701 - 450 X10E9/L1 4:21 PM EDT [facility] LABORATORYMPV7.57 - 12 fL07/07/2025 4:21 PM [facility] LABORATORYNeutrophils %96.3%07/07/2025 4:21 PM [facility] LABORATORYLymphocytes %2.4%07/07/2025 4:21 PM [facility] LABORATORYMonocytes %0.9%07/07/2025 4:21 PM [facility] LABORATORYEosinophils %0.1%07/07/2025 4:21 PM [facility] LABORATORYBasophils %0.3%07/07/2025 4:21 PM [facility] LABORATORYNeutrophils Absolute (A)9.2(H)1.5 - 6.6 10*3/uL 07/07/2025 4:21 PM [facility] LABORATORYLymphocytes Absolute 0.2(L)1.0 - 3.5 10*3/uL07/07/2025 4:21 PM [facility] LABORATORYMonocytes Absolute0.10.0 - 0.9 10*3/uL07/07/2025 4:21 PM [facility] LABORATORYEosinophils Absolute0.00.0 - 0.4 10*3/uL07/07/2025 4:21 PM [facility] LABORATORYBasophils Absolute0.00.0 - 0.2 10*3/uL07/07/2025 4:21 PM [facility] LABORATORYDifferential TypeAUTOMATED GFBAGKGXHNPE37/16/2025 4:21 PM [facility] LABORATORYSpecimen (Source)Anatomical Location / LateralityCollection Method / VolumeCollection TimeReceived TimeBloodVenous blood / UnknownVenipuncture / Mnyezkk8807/07/2025 3:49 PM EDT1 4:02 PM EDT Narrative Authorizing ProviderResult TypeResult StatusKhaled Vicente BAKER BLOOD ORDERABLESFinal ResultPerforming OrganizationAddressCity/State/ZIP CodePhone Number [facility] [address] [place] [address], * (ABNORMAL) Comprehensive metabolic panel (07/07/2025 3:49 PM EDT)Component ValueRef RangeTest MethodAnalysis TimePerformed AtPathologist SignatureSODIUM 637252 - 146 mmol/L1 4:35 PM [facility] POTASSIUM3.93.5 - 5.0 mmol/L1 4:35 PM [facility] QDMSMJDYSSCNBOBQNC68414 - 109 mmol/L1 4:35 PM [facility] LABORATORYCARBON VQDVXFF4364 - 32 mmol/L1 4:35 PM [facility] LABORATORYANION GAP75 - 15 mmol/L1 4:35 PM EDT [facility] LABORATORYBLOOD UREA HJXLNEZK730 - 27 mg/dL07/07/2025 4:35 PM [facility] LABORATORYCREATININE0.920.60 - 1.30 mg/dL 07/07/2025 4:35 PM [facility] LABORATORYComment:METHOD TRACEABLE TO IDMS TWYUDSWKQOOJMAO507(H)65 - 99 mg/dL07/07/2025 4:35 PM EDT [facility] LABORATORYCALCIUM8.88.5 - 10.5 mg/dL07/07/2025 4:35 PM [facility] LABORATORYTOTAL PROTEIN6.66.0 - 8.0 g/dL 07/07/2025 4:35 PM [facility] LABORATORYALBUMIN4.03.2 - 5.3 g/dL07/07/2025 4:35 PM [facility] LABORATORYALKALINE AWQEUHWSDIF1906 - 130 U/L1 4:35 PM [facility] CZVSZBUWFCOLB72<=41 U/L1 4:35 PM [facility] AQUBPNSZPUPPY60<=40 U/L1 4:35 PM [facility] LABORATORYBILIRUBIN,TOTAL0.70.3 - 1.2 mg/dL07/07/2025 4:35 PM [facility] LABORATORYEGFR Non-Race Dependent>90>=60 ml/min/1.73sq.m 07/07/2025 4:35 PM [facility] LABORATORYComment: Reported eGFR is based on the CKD-EPI 2020 equation that does not use a race coefficient. Specimen (Source)Anatomical Location / LateralityCollection Method / Volume Collection TimeReceived TimeBloodVenous blood / UnknownVenipuncture / Unknown 07/07/2025 3:49 PM EDT1 4:02 PM EDT Narrative Authorizing ProviderResult TypeResult StatusKhaled araibeh MDLAB BLOOD ORDERABLESFinal ResultPerforming OrganizationAddressCity/State/ZIP CodePhone Number [facility] [address] [place] [address], * (ABNORMAL) Hemoglobin A1c (07/07/2025 3:49 PM EDT)ComponentValueRef RangeTest MethodAnalysis TimePerformed AtPathologist SignatureHEMOGLOBIN A1C5.7(H)4.4 - 5.6 %07/07/2025 4:50 PM [facility] LABORATORYComment: ?ADA Guidelines ?Result ?HgbA1c ? Normal : ? less than 5.7 % ? Prediabetes : ?5.7 % ??to 6.4 % Diabetes : > 6.4 % ?Use with caution in patients with abnormal hemoglobin variants as ??the half-life of red blood cells and in vivo glycation rates are ??affected. EST. AVERAGE YROMXFY813ak/dL07/07/2025 4:50 PM [facility] LABORATORYSpecimen (Source)Anatomical Location / LateralityCollection Method / VolumeCollection TimeReceived TimeBloodVenous blood / UnknownVenipuncture / Qxyunmu5207/07/2025 3:49 PM EDT1 4:02 PM EDT Narrative Authorizing ProviderResult TypeResult StatusRosibel BAKER BLOOD ORDERABLESFinal ResultPerforming OrganizationAddressCity/State/ZIP CodePhone Number [facility] [address] [place] [address], * (ABNORMAL) Bedside Glucose *Place/Obtain serum glucose if >500 per glucometer. (07/07/2025 2:48 PM EDT)ComponentValueRef RangeTest MethodAnalysis Time Performed AtPathologist SignatureBedside Glucose (POC)117(H)65 - 99 mg/dL 07/07/2025 2:53 PM [facility] LABORATORYSpecimen (Source)Anatomical Location / LateralityCollection Method / VolumeCollection TimeReceived Time arterial/uyvunkinl74/16/2025 2:48 PM EDT1 2:53 PM EDT Narrative Authorizing ProviderResult TypeResult StatusMouhammad Deven Aguilera [facility] TEST ORDERABLESFinal ResultPerforming OrganizationAddressCity/State/ZIP Code Phone Number [facility] [address] [place] [address], * CT cerebral perfusion analysis (07/07/2025 2:38 [...] on 07/07/2025 2:47 PM Authorizing ProviderResult TypeResult StatusKhaled Vicente YANGDemetrius CT ORDERABLES Final Result documented in this encounter Visit Diagnoses Not on filedocumented in this encounter Admitting Diagnoses Diagnosis Stroke (cerebrum) ([facility] Unspecified cerebral artery occlusion with cerebral infarction documented in this encounter Administered Medications Medication OrderMAR ActionAction DateDoseRateSite aspirin chewable tablet 81 mg 81 mg, oral, Daily, First dose on Sandra 07/07/25 at 1500 Given07/12/2025 8:38 AM EDT81 cpMgwzj4807/11/2025 7:54 AM EDT81 ptCwjhz2507/10/2025 8:53 AM EDT81 mg barium sulfate (VARIBAR [...] % (w/v), 30% (w/w) oralpaste, Starting on 07/08/25 at 1347, For 1 dose barium sulfate [...] mouth after use. Given07/12/2025 8:38 AM EDT0.5 ilJunxl0907/11/2025 7:46 PM EDT0.5 mgGiven 07/11/2025 8:47 AM EDT0.5 mg calcium gluconate 3,000 mg in sodium [...] level 3.5 to 4.4 mg/dL, Starting on Fri07/07/25 at 1705, Recheck ionized calcium 6 hours [...] for previously documented contrast allergy, Starting on Fri07/09/25 at 1317, For 1 dose, Pre-Procedure (CV), Look-alike/sound-alike medication - verify indication for use. diphenhydrAMINE (BENADRYL) injection 50 mg 50 mg, intravenous, As needed, for previously documented contrast allergy, Starting on Fri07/08/25at 0757, Scheduling/ADT, Administer one hour prior to procedure Look-alike/sound-alike medication -verify indication for use. fentaNYL (SUBLIMAZE) injection Code/trauma/sedation medication, Starting on Fri07/09/25 at 1149, Intra- Procedure (CV) Given07/09/2025 11:49 AM EDT50 mcg FLUoxetine (PROzac) capsule 10 mg 10 mg, oral, Daily, First dose on Fri07/12/25 at 0900, Look-alike/sound-alike medication - verify indication for use. Given07/12/2025 8:39 AM EDT10 mg heparin (porcine) injection 5,000 Units 5,000 Units, subcutaneous, Every 8 hours scheduled, First dose (after last modification) on Fri07/09/25 at 2000, Look-alike/sound-alike medication - verify indication for use. Observe for bleeding. Given07/12/2025 2:35 PM EDT5,000 UnitsAbdominal EdmdkrPvubr63/21/2025 6:05 AM EDT5,000 UnitsAbdominal JbhntaXvxll84/20/2025 9:56 PM EDT5,000 UnitsAbdominal Tissue hydrALAZINE (APRESOLINE) injection 10 mg 10 mg, intravenous, Every 6 hours PRN, high blood pressure, Starting on Fri07/08/25 at 1320, For systolic blood pressure greater than 160 mmHg Look-alike/sound-alike medication - verify indication for use. Administer IV doses as a slow IV push; maximum rate: 5 mg/minute. iodixanoL (VISIPAQUE) 320 mg iodine/mL injection Code/trauma/sedation medication, Starting on Fri07/09/25 at 1256, Intra- Procedure (CV) Given07/09/2025 12:56 PM [id number] mL ipratropium-albuteroL (DUONEB) 0.5 mg-3 mg(2.5 mg base)/3 mL nebulizer solution 3 mL 3 mL, nebulization, Every 4 hours, First dose (after last modification) on Fri07/08/25 at 1200, Implement INPATIENT/ED Bronchodilator Clinical Practice Guidelines? Yes Given07/12/2025 3:33 PM EDT3 yLViyqg5707/12/2025 11:42 AM EDT3 yDCppes3107/12/2025 8:38 AM EDT3 mL lidocaine PF (XYLOCAINE) 10 mg/mL (1 %) injection Code/trauma/sedation medication, Starting on 07/09/25 at 1148, Intra- Procedure (CV) Given07/09/2025 11:48 AM EDT10 mLRight Anterior Thigh magnesium sulfate IVPB 2000 mg/50 mL in [...] coffee or tea. Given07/10/2025 2:23 PM EDT17 jPewjt7407/08/2025 11:47 PM EDT17 g potassium chloride (K-TAB,KLOR-CON) [...] As needed, for potassium replacement, Starting on [facility] 07/07/25 at 1705, Administer Potassium Chloride IVPB [...] As needed, for potassium replacement, Starting on [facility] 07/07/25 at 1705, Administer Potassium Chloride IVPB [...] Pre- Procedure (CV) Given07/12/2025 8:41 AM EDT3 xRRswpw4307/11/2025 9:56 PM EDT3 hJYmipa3307/11/2025 7:54 AM EDT3 mL sodium phosphate 20 mmol in sodium [...] hours after infusion complete. ticagrelor (BRILINTA) tablet 90 mg 90 mg, oral, Every 12 hours, First dose on Fri07/08/25 at 0300 Given07/12/2025 6:05 AM EDT90 uhVijlw0407/11/2025 1:49 PM EDT90 faExnbg5707/11/2025 3:00 AM EDT90 mg traZODone (DESYREL) tablet 50 mg 50 mg, oral, Nightly, First dose on Fri07/08/25 at 2315, Look-alike/sound-alike medication - verify indication for use. Given07/11/2025 9:56 PM EDT50 kpJkxnu8907/10/2025 9:33 PM EDT50 kzTgqmq1107/09/2025 10:59 PM EDT50 mgdocumented in this encounter Active and Recently Administered Medications Times are shown in EDT.Medication Order/ aspirin chewable tablet 81 mg 81 mg, oral, Daily, First dose on Fri07/07/25 at 1500 * 0853 (Given - Provider: Julianne Lopes RN) * 0754 (Given - Provider: Chucho Branch RN) * 0838 (Given - Provider: Chucho Branch RN) budesonide (PULMICORT) nebulizer solution 0.5 mg 0.5 mg, nebulization, Every 12 hours, First dose (after last modification) on Fri07/08/25 at 0700,Rinse mouth after use. * 0857 (Not Given - Provider: Steven Sheikh RCP - Reason: Patient/family refused) * 1143 (Given - Provider: Steven Sheikh RCP) * 1949 (Given - Provider: Mary Cerda RCP) * 0847 (Given - Provider: Didi Perez RCP) * 1946 (Given - Provider: Foster Martin RCP) * 0838 (Given - Provider: Emelyn Pabon RCP) FLUoxetine (PROzac) capsule 10 mg 10 mg, [...] RN) * 1422 (Given - Provider: Julianne Lopes, RN) * 2133 (Given - Provider: Partha Nacne, RN) * 0542 (Given - Provider: Lashawn Dao, RN) * 1348 (Given - Provider: Chucho Branch, RN) * 2156 (Given - Provider: Partha Randhawa, RN) * 0605 (Given - Provider: Partha Randhawa RN) * 1435 (Given - Provider: Chucho Branch RN) ipratropium-albuteroL (DUONEB) 0.5 mg-3 mg(2.5 mg base)/3 mL nebulizer solution 3 mL 3 mL, nebulization, Every 4 hours, First dose (after last modification) on Fri07/08/25 at 1200, Implement INPATIENT/ED Bronchodilator Clinical Practice Guidelines? Yes * 0313 (Given - Provider: Deepthi Perez MOBILE APPLICATION ARCHITECT) * 0857 (Not Given - Provider: Steven Sheikh RCP - Reason: Patient/family refused) * 1143 (Given - Provider: Steven Sheikh RCP) * 1549 (Given - Provider: Steven Sheikh RCP) * 1949 (Given - Provider: Mary Cerda MOBILE APPLICATION ARCHITECT) * 2353 (Given - Provider: Mary Cerda MOBILE APPLICATION ARCHITECT) * 0342 (Given - Provider: Mary Cerda RCP) * 0847 (Given - Provider: Didi Perez MOBILE APPLICATION ARCHITECT) * 1225 (Given - Provider: Didi Perez MOBILE APPLICATION ARCHITECT) * 1621 (Given - Provider: Didi Perez MOBILE APPLICATION ARCHITECT) * 1946 (Given - Provider: Foster Martin MOBILE APPLICATION ARCHITECT) * 2324 (Given - Provider: Foster Martin MOBILE APPLICATION ARCHITECT) * 0306 (Given - Provider: Foster Martin RCP) * 0838 (Given - Provider: Emelyn Pabon [facility]) * 1142 (Given - Provider: Emelyn Pabon MOBILE APPLICATION ARCHITECT) * 1533 (Given - Provider: Emelyn Pabon MOBILE APPLICATION ARCHITECT) rosuvastatin (CRESTOR) tablet 10 mg 10 mg, oral, Nightly, First dose on Fri07/11/25 at 2200, Look-alike/sound-alike medication - verify indication for use. * 215 (Given - Provider: Partha Randhawa RN) sodium chloride 0.9 % flush 3 mL 3 mL, intravenous, Every 12 hours, First dose on Fri07/09/25 at 1330, Pre- Procedure (CV) * 0853 (Given - Provider: Julianne Lopes RN) * 2100 (Given - Provider: Partha Nance RN) * 0754 (Given - Provider: Chucho Branch RN) * 2156 (Given - Provider: Partah Randhawa RN) * 0841 (Given - Provider: Chucho Branch RN) ticagrelor (BRILINTA) tablet 90 mg 90 mg, oral, Every 12 hours, First dose on Fri07/08/25 at 0300 * 0420 (Given - Provider: Partha Nance RN - Comment: pt care) * 1423 (Given - Provider: Julianne Lopes RN) * 0300 (Given - Provider: Partha Nance RN) * 1349 (Given - Provider: Chucho Branch RN) * 0605 (Given - Provider: Partha Randhawa RN) traZODone (DESYREL) tablet 50 mg 50 mg, oral, Nightly, First dose on Fri07/08/25 at 2315, Look-alike/sound-alike medication - verify indication for use. * 2133 (Given - Provider: Partha Nance RN) * 2156 (Given - Provider: Partha Randhawa RN) Medication Order/ sodium chloride 0.9 % infusion () 75 mL/hr, intravenous, Continuous, Starting on Fri07/10/25 at 0230, For 12 hours * 0420 (New Bag - Provider: Partha Nance RN) * 1619 (Stop Bag - Provider: Leonardo Cabrera RN - Comment: [Order ends at this time. Document the following action when infusion is complete: Stop Bag]) Medication Order/ barium sulfate (VARIBAR NECTAR) 40 % (w/v) [...] mL, intramuscular, During hospitalization, immunization, Starting on 07/12/25 at 1259, For 1 dose, Refer to Sanjuana for administration instructions. Do NOT administer in the gluteal muscle. Look-alike/sound-alike medication - verify indication for use. Hold if fever greater than 100.4 degrees Fahrenheit (38 C) or if the patient has severe acute cardiac or pulmonary episode that requires ICU. Shake well before use. * 1439 (Given - Provider: Chucho Branch, RN) hydrALAZINE (APRESOLINE) injection 10 mg 10 [...] oral, As needed, potassium replacement, Starting on [facility] 07/07/25 at 1705, Progress to oral potassium [...] As needed, for potassium replacement, Starting on [facility] 07/07/25 at 1705, Administer Potassium Chloride IVPB [...] Teams Team MemberRelationshipSpecialtyStart DateEnd Date Azul Quezada, CHRISTINA-TANK CALIBRATOR PCP - GeneralNurse Ygwplckhizxg16/9/19documented as of this encounter
[2025-07-23 07:05] VITALS: PULSE 90; O2SAT 97; BMI 60.6
--- NOTE | 2025-07-23 07:09 | XR_ITS ---
The [place] [id number] Patient Name: JUANITA KRAMER MRN: [id number] date: 1960 Sex: M Assigned Patient Location: ER Current Patient Location: ED.MAIN Accession/Order Number: [id number] Exam Date: 07/23/2025 08:10 Report Date: 07/23/2025 09:08 At the request of: ZUNILDA MERCEDES Procedure: XR chest 1V PA CHEST: CLINICAL HISTORY: cough COMPARISON: 07/07/2025 Unremarkable cardiomediastinal. Lungs clear. No effusion or pneumothorax. XR/XR chest 1V IMPRESSION: NEGATIVE ACUTE PLEURAL-PARENCHYMAL DISEASE. Impression dictated by: Everette Méndez M.D. 07/23/2025 9:08 AM Dictation Location: [place] [id number] Electronically authenticated by: [id number] Y Date: 07/23/2025 09:08
--- NOTE | 2025-07-23 07:09 | ECG_ITS ---
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 Measurements Intervals [place] Rate: 83 P: 81 WA: 142 QRS: 71 QRSD: 94 T: 67 QT: 370 QTc: 410 Interpretive Statements 1100 Sinus rhythm 9110 normal ECG Compared to ECG 07/07/2025 09:51:14 Sinus tachycardia no longer present Myocardial infarct finding no longer present ST (T wave) deviation no longer present Electronically Signed On 07-23-2025 8:46:03 EDT by WALT AMAYA M.D.
--- NOTE | 2025-07-23 07:11 | CT_ITS ---
The [address] [address] Patient Name: JUANITA KRAMER MRN: [id number] date: 1960 Sex: M Assigned Patient Location: ER Current Patient Location: ED.MAIN Accession/Order Number: [id number] Exam Date: 07/23/2025 08:10 Report Date: 07/23/2025 09:21 At the request of: ZUNILDA MERCEDES Procedure: CT abdomen pelvis w con CT ABDOMEN AND PELVIS WITH INTRAVENOUS CONTRAST: CLINICAL HISTORY: abd pain, vomiting COMPARISON: CT chest 12/07/2024 TECHNIQUE: Spiral images were obtained through the abdomen and pelvis following the administration of intravenous contrast. This CT exam was performed using one or more following dose reduction techniques: Automated exposure control, adjustment of the mA and/or kV according to patient size, or use of iterative reconstruction technique. FINDINGS: Lung Bases: [Hypoventilatory changes atelectasis. There is mucosal thickening involving the visualized bronchi with scattered mucosal plugging both lower lobes. Minimal nodularity lung bases appear similar to the CT chest.] Organs:Liver, spleen, adrenals, kidneys kidneys pancreas and gallbladder unremarkable. GI: Mild to moderate retained stool throughout the colon. No bowel obstruction. Colonic diverticulosis. Inspissated mucus within the nonenlarged appendix. No surrounding inflammatory change.[Small hiatal hernia. Pelvis:[Bladder prostate unremarkable.] Peritoneum/Retroperitoneum:Moderate plaque involving the nonaneurysmal aorta.[ Abd wall/Bones:Tiny fat-containing umbilical hernia. Degenerative changes of the thoracic and lumbar spine.[ CT/CT abdomen pelvis w con IMPRESSION: Negative acute inflammatory process or bowel obstruction. Impression dictated by: Everette Méndez M.D. 07/23/2025 9:21 AM Dictation Location: [employer] Electronically authenticated by: [id number] Y Date: 07/23/2025 09:21
[2025-07-23] MEDS: 0.9 % SODIUM CHLORIDE 1,000 ML 999 ML IV (07:31)
[2025-07-23 07:46] LABS: Hematocrit 38.4 % (42.0-54.0); Hemoglobin 12.1 g/dL (14.0-18.0); Immature Granulocytes Abs Auto 0.07 10^3/uL (0.00-0.03); Immature Granulocytes Pct Auto 0.7 % (0.0-0.5); Lymphocytes Absolute Auto 1.1 10^3/uL (1.2-3.8); Mean Corpuscular HGB Conc 31.5 g/dL (29.9-35.2); Mean Corpuscular Hemoglobin 29.8 pg (25.9-34.0); Mean Corpuscular Volume 94.6 fL (80.0-94.0); Platelet Count 409 10^3/uL (150-450); Red Blood Count 4.06 10^6/uL (4.70-6.10); White Blood Count 10.6 10^3/uL (4.0-11.0)
[2025-07-23 08:09] LABS: Alanine Aminotransferase 33 U/L (16-63); Albumin Globulin Ratio 0.9; Albumin Level 3.3 g/dL (3.4-5.0); Alkaline Phosphatase 80 U/L (46-116); Anion Gap 11.0; Aspartate Amino Transferase 39 U/L (15-37); Blood Urea Nitrogen 12.0 mg/dL (7.0-18.0); Calcium 9.2 mg/dL (8.5-10.1); Carbon Dioxide 29.0 mmol/L (21.0-32.0); Chloride 104 mmol/L (98-107); Estimated GFR (African America >60 (>=60 mL/min/1.73m^2); Estimated GFR (Non-African Ame >60 (>=60 mL/min/1.73m^2); Globulin 3.5 g/dL; Glucose 95 mg/dL (74-106); Lipase 19.0 U/L (16.0-77.0); NT Pro B Type Natriuretic Pept 73.0 pg/mL (<=900.0); Potassium 4.0 mmol/L (3.5-5.1); Sodium 140 mmol/L (136-145); Total Protein 6.8 g/dL (6.4-8.2)
--- OUTSIDE RECORDS SUMMARY | 2025-07-23 08:22 | XMS_ITS | CCD ---
Author Organization [facility] Care Team Providers Care License Inspector Name Role Phone SAMSA, JAMESON Admitting Unavailable SAMSA, JAMESON Attending Unavailable AICHHOLZ, LIBRARIAN HELPER AZUL Referring Unavailable AICHHOLZ, LIBRARIAN HELPER AZUL Primary Care Unavailable SAMSA, JAMESON Consulting Unavailable AICHHOLZ, LIBRARIAN HELPER AZUL Admitting Unavailable AICHHOLZ, LIBRARIAN HELPER AZUL Attending Unavailable AICHHOLZ, LIBRARIAN HELPER AZUL Primary Care Unavailable AICHHOLZ, LIBRARIAN HELPER AZUL Consulting Unavailable SAMSA, JAMESON Admitting Unavailable SAMSA, JAMESON Attending Unavailable AICHHOLZ, LIBRARIAN HELPER AZUL Primary Care Unavailable WHITNEY, DR YARIEL Figueroa Consulting Unavailable SAMSA, JAMESON Consulting Unavailable AICHHOLZ, LIBRARIAN HELPER AZUL Primary Care Unavailable DAREN, DR MAURO Admitting Unavailable DAREN, DR MAURO Attending Unavailable WHITNEY, DR YARIEL Figueroa Consulting Unavailable DAREN, DR MAURO Consulting Unavailable Kiko Zurita MD Primary Care Provider Aichholz ACID PURIFICATION EQUIPMENT OPERATOR, Azul Unavailable Kiko Zurita MD Primary Care Provider Aichholz ACID PURIFICATION EQUIPMENT OPERATOR, Azul Unavailable Aichholz TASSEL CLIPPER-LIBRARIAN HELPER, Azul J Primary Care Provider Aichholz ACID PURIFICATION EQUIPMENT OPERATOR, Azul Unavailable AICHHOLZ, AZUL Attending Unavailable AICHHOLZ, AZUL Attending Unavailable IBETH TORRES Attending Unavailable AICHHOLZ, AZUL Attending Unavailable AICHHOLZ, AZUL Attending Unavailable EFRAIN HAMPTON Referring Unavailable RAHEL ELIZALDE Consulting Unavailable JUMAA, MOUHAMMAD A Attending Unavailable DYLLAN, EHAD Admitting Unavailable 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 Primary Care Unavailable EDA SAMUEL Referring Unavailable 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 Primary Care Unavailable PROVIDER, UNKNOWN Attending Unavailable PROVIDER, UNKNOWN Admitting Unavailable 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 Referring Unavailable 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 Primary Care Unavailable 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 Referring Unavailable 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 Primary Care Unavailable 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 Referring Unavailable 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 Primary Care Unavailable Damien ACID PURIFICATION EQUIPMENT OPERATOR, Azul Unavailable Kiko Zurita MD Primary Care Provider Damien ACID PURIFICATION EQUIPMENT OPERATOR, Azul Unavailable Allergies Allergy ClassificationReported Allergen(s)Allergy TypeDate of OnsetReaction(s) Facility (20 sources)Honey bee venomAllergy to rakyhdimd22-03-5332[facility] (3 sources)Bee Venom Protein (Honey Bee); 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: [BEE VENOM PROTEIN (HONEY BEE)]Propensity to adverse reactions to ljaj96-61-7672[facility] Medications Current Medications MedicationDrug Class(es)DatesSig (Normalized)Sig (Original)albuterol 0.83 mg/ml inhalation solution (20 sources)beta2-Adrenergic Agonistalbuterol (2.5 MG/3ML) 0.083% nebulizer solution Take 2.5 mg by nebulization 4 (four) times a day as needed for wheezing Activetake 2 puff(s) by inhalation every four hours for wheezingalbuterol HFA 90 mcg/act inhaler Inhale 2 puffs every 4 (four) hours if needed for wheezing Activealbuterol (ACCUNEB) 0.63 mg/3 mL nebulizer solution Inhale 1 ampule by nebulization every 6 (six) hours as needed for wheezing. Activetake 2 puff(s) by inhalation every six hours as needed for wheezingalbuterol (PROVENTIL HFA;VENTOLIN HFA) 90 mcg/actuation inhaler Inhale 2 puffs every 6 (six) hours as needed for wheezing. Activealbuterol 0.833 mg/ml / ipratropium bromide 0.167 mg/ml inhalation solution (20 sources)Anticholinergic, beta2-Adrenergic AgonistStart: 12-01-2023 ipratropium-albuterol (Duo-Neb) 0.5-2.5 mg/3 mL nebulizer solution Take 3 mL by nebulization in themorning and 3 mL at noon and 3 mL in the evening and 3 mL before bedtime. 12/01/2023 Activeamoxicillin 875 mg / clavulanate 125 mg oral tablet (3 sources)Penicillin-class AntibacterialStart: 11-16-2024 End: 42-78-1692feym 1 tablet by mouth in the morningamoxicillin-clavulanate (Augmentin) 875-125 MG tablet Indications: COPD with acute exacerbation (CMS /HCC) Take 1 tablet (875 mg) by mouth in the morning and 1 tablet (875 mg) before bedtime. Do all this for 10 days. 20 tablet 11/16/2024 11/26/2024 Active aspirin 81 mg chewable tablet (20 sources)Platelet Aggregation Inhibitor, Nonsteroidal Anti-inflammatory Drug Start: 71-54-3735ywdhtsr 81 mg chewable tablet Chew 1 tablet (81 mg total) and swallow daily. 30 tablet 5 06/14/2020Activetake 1 tablet by mouth in the morning aspirin 81 MG EC tablet Take 81 mg by mouth in the morning. Activeatorvastatin 40 mg oral tablet (20 sources)HMG-CoA Reductase InhibitorStart: 03-15-2024 End: 40-34-2157pmoq 1 tablet by mouth in the eveningatorvastatin (Lipitor) 40 MG tablet Indications: Mixed hyperlipidemia Take 1 tablet (40 mg) by mouth in the evening 90 tablet 1 12/27/2024 ActiveStart: 37-90-6203bcwp 1 tablet by mouth once dailyatorvastatin (LIPITOR) 40 mg tablet Take 1 tablet (40 mg total) by mouth nightly. 30 tablet 2 06/13/2020 Activebisacodyl 5 mg delayed release oral tablet (3 sources)Stimulant LaxativeStart: 05-31-2024 End: 62-28-1652sqsr 1 tablet by mouth oncebisacodyl (Dulcolax) 5 MG EC tablet Indications: Screening for malignant neoplasm of colon Take 1 tablet (5 mg) by mouth 1 time for 1 dose Do not crush, chew, or split. Take as detailed on clinic hand out for colonoscopy prep 1 tablet 05/31/2024 05/31/2024 Yfwtmg26 actuat budesonide 0.16 mg/actuat / formoterol fumarate 0.0045 mg/actuat metered dose inhaler (20 sources)Corticosteroid, beta2-Adrenergic Agonisttake 2 puff(s) by inhalation in the morningbudesonide-formoterol (Symbicort) 160-4.5 MCG/ACT inhaler Inhale 2 puffs in the morning and 2 puffsbefore bedtime. Rinse mouth with water after use to reduce aftertaste and incidence of candidiasis.Do not swallow.. Active Ensifentrine (Ohtuvayre) 3 MG/2.5ML suspension (11 sources)Start: 48-83-6170Krqvqczqleal (Ohtuvayre) 3 MG/2.5ML suspension every 12 (twelve) hours 08/17/2024 [id number] 0.3 ml EPINEPHrine 1 mg/ml auto-injector (20 sources)alpha-Adrenergic Agonist, beta-Adrenergic Agonist, Catecholamine Start: 61-88-3387CIBTWFFsbfa (Epipen) 0.3 MG/0.3ML injection syringe Inject 1 Syringe as directed 1 (one) time 05/30/2024 Activefamotidine 20 mg oral tablet (3 sources)Histamine-2 Receptor AntagonistStart: 05-30-2024 End: 97-08-2367stua 1 tablet by mouth in the morningfamotidine (Pepcid) 20 MG tablet Take 20 mg by mouth in the morning and 20 mg before bedtime. 05/30/2024 08/16/2024 Discontinued (Therapy completed)FLUoxetine 20 mg oral capsule (20 sources)Serotonin Reuptake InhibitorStart: 02-02-2024 End: 39-31-6286ajsa 1 capsule by mouth once dailyFLUoxetine (PROzac) 20 MG capsule Indications: Depression with anxiety Take 1 capsule (20 mg) by mouth Daily 90 capsule 1 02/15/2025 Activetake 1 capsule by mouth once dailyFLUoxetine (PROzac) 10 mg capsule Take 10 mg by mouth daily. ActivehydrOXYzine hydrochloride 25 mg oral tablet (11 sources)AntihistamineStart: 12-15-2023 End: 20-07-9559dbiu 1-2 tablets by mouth every eight hours for anxiety hydrOXYzine HCl (Atarax) 25 MG tablet Indications: Depression with anxiety Take 1-2 tablets (25-50 mg) by mouth every 8 (eight) hours if needed for anxiety for up to 10 days 60 tablet 12/15/2023 08/16/2024 Discontinued (Therapy completed) ipratropium bromide 0.2 mg/ml inhalation solution (11 sources)AnticholinergicStart: 95-45-3709nlcxrmnewuu (Atrovent) 0.02 % nebulizer solution 2.5 mL inhaled via nebulizer every 8 hours As Needed for shortness of breath or wheezing 09/27/2024 Activelosartan potassium 25 mg oral tablet (3 sources)Angiotensin 2 Receptor BlockerStart: 98-26-7845pmna 1 tablet by mouth once dailylosartan (Cozaar) 25 MG tablet Take 25 mg by mouth Daily 05/11/2025 Activepolyethylene glycol 3350 51163 mg powder for oral solution (3 sources)Osmotic LaxativeStart: 05-31-2024 End: 51-98-9170zpvh 17 g by mouth oncepolyethylene glycol, PEG, 3350 (Glycolax) 17 GM/SCOOP powder Indications: Colonoscopy Take 238 g bymouth 1 (one) time for 1 dose Take as detailed from clinic hand out for colonoscopy prep 238 g 05/3105/31/2024 ActivepredniSONE 10 mg oral tablet (15 sources)Start: 53-01-2247pibq 1 tablet by mouth three times daily, then take 1 tablet by mouth twice daily, then take 1 tablet by mouth once dailypredniSONE (Deltasone) 10 MG tablet TAKE 1 TABLET BY MOUTH THREE TIMES DAILY FOR 4 DAYS, then TAKE 1 TABLET BY MOUTH TWICE DAILY FOR 4 DAYS, then TAKE 1 TABLET BY MOUTH DAILY FOR 4 DAYS 05/11/2025 ActiveStart: 11-16-2024 End: 27-55-7586ddir 1 tablet by mouth in the morningpredniSONE (Deltasone) 20 MG tablet Indications: COPD with acute exacerbation (CMS/HCC) Take 1 tablet (20 mg) by mouth in the morning and 1 tablet (20 mg) in the evening. Take with meals. Do all thisfor 5 days. Take with food. 10 tablet 11/16/2024 11/21/2024 ActiveStart: 05-30-2024 End: 04-62-8498vill 1 tablet by mouth in the morningpredniSONE (Deltasone) 20 MG tablet Take 20 mg by mouth in the morning and 20 mg before bedtime. 05/30/2024 08/16/2024 Discontinued (Therapy completed)10 actuat tiotropium 0.0025 mg/actuat inhalation spray (20 sources)Anticholinergictake 2 puff(s) by inhalation in the morningtiotropium (Spiriva Respimat) 2.5 MCG/ACT inhaler Inhale 2 puffs in the morning. Activetake 1 capsule by inhalation once dailytiotropium (SPIRIVA) 18 mcg per inhalation capsule Place 1 capsule into inhaler and inhale once daily. ActivetraZODone hydrochloride 50 mg oral tablet (20 sources)Serotonin Reuptake InhibitorStart: 12-16-2023 End: 48-95-6161uvdd 1 tablet by mouth at bedtimetraZODone (Desyrel) 50 MG tablet Indications: Insomnia, unspecified Take 1 tablet (50 mg) by mouth at bedtime 90 tablet 1 02/15/2025 ActivetraZODone (DESYREL) 75 mg tablet Take 50 mg by mouth nightly. Activetake 1 tablet by mouth at bedtimetraZODone (Desyrel) 50 MG tablet Take 50 mg by mouth at bedtime 0 Activetriamcinolone acetonide 0.055 mg/actuat metered dose nasal spray (20 sources)Corticosteroidtake 2 spray(s) nasal route in the morning triamcinolone (Nasacort) 55 MCG/ACT nasal inhaler Administer 2 sprays into each nostril in the morning. Active Problems Active Problems Problem ClassificationProblemDateDocumented DateEpisodic/ChronicAcute cerebrovascular disease (20 sources)Cerebrovascular accident; 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: [Cerebral infarction, unspecified]Onset: 957196-20-0269UgjsvgyKouzpov disorders (20 sources)Other specified anxiety disorders; 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: [Mixed anxiety and depressive disorder]Onset: 820603-55-2978NvbplzaFdpllbp obstructive pulmonary disease and bronchiectasis (20 sources)Emphysema, unspecified; 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: [Centrilobular emphysema] Onset: 39-32-8641AlkmftuSrpwzrfv mellitus without complication (6 sources)Increased glucose level; 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: [Other abnormal glucose]Onset: 076401-41-5162EuudybyyQsxgdzyfj of lipid metabolism (20 sources)Mixed hyperlipidemia; 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: [Mixed hyperlipidemia]Onset: 536546-07-5641XtgdyssVgorvohye usually diagnosed in infancy, childhood, or adolescence (20 sources)Wilian de la Tourette's syndrome; 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: [Tourette's disorder]Onset: 490715-94-5775CehjvlgTkdvpqqwkgwqw mental health disorders (2 sources)Primary insomnia; 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: [Primary insomnia]97-22-7762Eyjmzmt Occlusion or stenosis of precerebral arteries (20 sources)Occlusion and stenosis of bilateral carotid arteries; 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: [Internal carotid artery stenosis]Onset: 87-68-8163WozfuscUyfgpdhyqhjpcm (20 sources)Osteoarthritis; 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: [Unspecified osteoarthritis, unspecified site]Onset: 260623-07-1629ZlhpeplYetyj diseases of veins and lymphatics (20 sources)Calcified lymph nodes; 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: [Other specified noninfective disorders of lymphatic vessels and lymph nodes]Onset: ChronicOther lower respiratory disease (4 sources)Shortness of breath; 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: [SHORTNESS OF BREATH]Onset: 95-80-7547PmnsqbtrUdaby non-traumatic joint disorders (5 sources)Hip pain; 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: [Pain in right hip]Onset: 05-17-2025 54-39-4252BauncvzuZgwfp upper respiratory disease (20 sources)Allergic rhinitis; 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: [Allergic rhinitis, unspecified] Onset: 252398-57-6209SavlfygGgwxaury codes; unclassified (1 source)Pain, unspecified; 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: [Pain, unspecified]Onset: 07-07-2025 EpisodicSpondylosis; intervertebral disc disorders; other back problems (20 sources)Degeneration of cervical intervertebral disc; 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: [Other cervical disc degeneration, unspecified cervical region]Onset: 10-30-2023 08-37-3313XhjxrkeNkmrjifrf-related disorders (20 sources)Cannabis abuse; 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: [Cannabis abuse, uncomplicated]Onset: 07-20-2020 Resolved: 961793-88-6746LabeonnCtnsxndmwaab (1 source)CONTACT W/AND (SUSP) EXPOS COVID-19; 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: [CONTACT W/AND (SUSP) EXPOS COVID-19]Onset: 63-96-4902Bvkzdsvmabir (1 source)EOSINOPHILIA UNSPECIFIED; 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: [EOSINOPHILIA UNSPECIFIED] Onset: 04-20-2022 Past or Other Problems Problem ClassificationProblemDateDocumented DateEpisodic/ChronicImmunizations and screening for infectious disease (18 sources)Needs influenza immunization; 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: [Encounter for immunization]Onset: 046738-35-1658EctyihveZkeajzuch (20 sources)Influenza; 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: [Influenza due to unidentified influenza virus with other respiratory manifestations]Onset: 10-30-2023 Resolved: 559365-89-4693WmtcpudpPjdh disorders (11 sources)Mood disordersOnset: 02-07-2022 Resolved: ther aftercare (12 sources)Long-term current use of inhaled steroid; 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: [emt intermediate (current) use of inhaled steroids]Onset: 673104-05-0979LszrkzxdEfjyl and unspecified benign neoplasm (20 sources)Polyp of colon; 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: [Polyp of colon]Onset: 05-19-2024 Resolved: 420985-08-0388OcwvherzAjvfi connective tissue disease (20 sources)Pain in right hand; 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: [Pain in right hand]Onset: 152073-53-3297VzheyntdMbwhq lower respiratory disease (20 sources)Multiple nodules of lung; 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: [Other nonspecific abnormal finding of lung field]Onset: 451356-16-2278PtuvofkgGhytf nutritional; endocrine; and metabolic disorders (20 sources)Overweight in adulthood with body mass index of 25 or more but less than 30; 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: [Body mass index (BMI) 26.0-26.9, adult]Onset: 10-30-2023 43-74-3180EoqclyiuIxroe nutritional; endocrine; and metabolic disorders (20 sources)Body mass index 25-29 - overweight; 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: [Overweight]Onset: 968922-25-1561SioqdwdnTvfpc screening for suspected conditions (not mental disorders or infectious disease) (20 sources)Encounter for screening for malignant neoplasm of respiratory organs; 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: [Encounter for screening for malignant neoplasm of prostate]Onset: 95-19-7271ZupymsjuBtlxs skin disorders (20 sources)Papule of skin; 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: [Other skin changes]Onset: 11-13-2023 Resolved: 772834-79-9289VbczfwdmTwlus upper respiratory disease (20 sources)Polyp of vocal cord ; 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] Onset: 733476-77-7431HybkgxusEezxsprp codes; unclassified (20 sources)Insomnia; 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: [Insomnia, unspecified]Onset: 10-30-2023 52-73-1921CjumlkdpKpcckgxbu and history of mental health and substance abuse codes (20 sources)Personal history of nicotine dependence; 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: [Ex-smoker] Onset: 581110-60-4943KvgpcteiEcyuc infection (20 sources)Disease caused by 2019-nCoV; 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: [COVID-19]Onset: 588285-27-6271Shqqhfeg Results Test NameValueInterpretationReference RangeFacilityCOMPREHENSIVE METABOLIC PANEL on 49-93-4191Wmpmabm [Mass/Vol]3.4 g/dLNormal3.2-5.3PSelect Medical [facility] Comment on above:Performed By: #### BEDG #### [facility] ([facility]) [address] [place] [address] VIRALP [Catalytic activity/Vol]53 U/EJbclui56-084GnbVpwpxd [place] HospitalComment on above:Performed By: #### BEDG #### [facility] ([facility]) [address] [place] [address] VIRALT [Catalytic activity/Vol]10 U/LNormal<=40ProUc Medical CenterComment on above:Performed By: #### BEDG #### [facility] ([facility]) [address] [place] [address] VIRAnion gap [Moles/Vol]8 mmol/LNormal5-15ProCleveland Clinic Children'S Hospital For Rehabilitationca Crescent HospitalComment on above:Performed By: #### BEDG #### [facility] ([facility]) [address] [place] [address] VIRAST [Catalytic activity/Vol]16 U/LNormal<=41ProCleveland Clinic Children'S Hospital For Rehabilitationca Crescent HospitalComment on above:Performed By: #### BEDG #### [facility] ([facility]) [address] [place] [address] VIRBilirubin [Mass/Vol]0.9 mg/dLNormal0.3-1.2PThe [facility] HospitalComment on above:Performed By: #### BEDG #### [facility] ([facility]) [address] [place] [address] VIRCalcium [Mass/Vol]8.6 mg/dLNormal8.5-10.5PThe [facility] System HospitalComment on above:Performed By: #### BEDG #### [facility] ([facility]) [address] [place] [address] VIRChloride [Moles/Vol]100 mmol/UVmlldo15-921RpqLgxgqp [place] HospitalComment on above:Performed By: #### BEDG #### [facility] ([facility]) [address] [place] [address] VIRCO2 [Moles/Vol]29 mmol/AEepcba51-42JqyWlhoer [facility] Comment on above:Performed By: #### BEDG #### [facility] ([facility]) [address] [place] [address] VIRCreatinine [Mass/Vol]0.75 mg/dLNormal0.60-1.30ProSt. Mary[facility] HospitalComment on above:Result Comment: METHOD TRACEABLE TO IDMS STANDARDPerformed By: #### BEDG #### [facility] ([facility]) [address] [place] [address] VIREGFR (CKD-EPI) NON-RACE DEPENDENT>^90Normal>=60ProSt. Mary'S [facility] HospitalComment on above:Result Comment: Reported eGFR is based on the CKD-EPI 2020 equation that does not use a race coefficient.Performed By: #### BEDG #### [facility] ([facility]) [address] [place] [address] VIRGlucose [Mass/Vol]94 mg/yVLaxehc68-12EfnIfdhdh [place] HospitalComment on above:Performed By: #### BEDG #### [facility] ([facility]) [address] [place] [address] VIRPotassium [Moles/Vol]4.0 mmol/LNormal3.5-5.0ProSt. Mary'S [facility] HospitalComment on above:Performed By: #### BEDG #### [facility] ([facility]) [address] [place] [address] VIRProtein [Mass/Vol]5.6 g/dLLow6.0-8.0ProSt. Mary'[facility] HospitalComment on above:Performed By: #### BEDG #### [facility] ([facility]) [address] [place] [address] VIRSodium [Moles/Vol]137 mmol/YOjjvzx352-417EpaHuxtgf [place] HospitalComment on above:Performed By: #### BEDG #### [facility] ([facility]) [address] [place] [address] VIRUrea nitrogen [Mass/Vol]14 mg/dLNormal5-27ProSt. Mary'[facility] HospitalComment on above:Performed By: #### BEDG #### [facility] ([facility]) [address] [place] [address] VIRCOMPREHENSIVE METABOLIC PANELon 04-36-6879Ivhfhof [Mass/Vol] 3.4 g/dLNormal3.2-5.3ProMedica Crescent HospitalComment on above:Performed By: #### BEDG #### [facility] ([facility]) [address] [place] [address] VIRALP [Catalytic activity/Vol]52 U/NHcravg79-541IoyYjnaht Crescent HospitalComment on above:Performed By: #### BEDG #### [facility] ([facility]) [address] [place] [address] VIRALT [Catalytic activity/Vol]10 U/LNormal<=40ProCleveland Clinic Children'[facility] Hospital For Rehabilitationca Crescent HospitalComment on above:Performed By: #### BEDG #### [facility] ([facility]) [address] [place] [address] VIRAnion gap [Moles/Vol]7 mmol/LNormal5-15ProCleveland Clinic Children'S Hospital For Rehabilitationca Crescent HospitalComment on above:Performed By: #### BEDG #### [facility] ([facility]) [address] [place] [address] VIRAST [Catalytic activity/Vol]17 U/LNormal<=41ProCleveland Clinic Children'S Hospital For Rehabilitationca Crescent HospitalComment on above:Performed By: #### BEDG #### [facility] ([facility]) [address] [place] [address] VIRBilirubin [Mass/Vol]1.0 mg/dLNormal0.3-1.2PThe [facility] HospitalComment on above:Performed By: #### BEDG #### [facility] ([facility]) [address] [place] [address] VIRCalcium [Mass/Vol]8.6 mg/dLNormal8.5-10.5PThe [facility] System HospitalComment on above:Performed By: #### BEDG #### [facility] ([facility]) [address] [place] [facility] [place] [place] [address] VIRChloride [Moles/Vol]99 mmol/TFvtvqj31-325MypGuzioj Crescent HospitalComment on above:Performed By: #### BEDG #### [facility] ([facility]) [address] [place] [place] [address] VIRCO2 [Moles/Vol]31 mmol/ABaikav45-38DxgOpvqbe [facility] Comment on above:Performed By: #### BEDG #### [facility] ([facility]) [address] [place] [address] VIRCreatinine [Mass/Vol]0.79 mg/dLNormal0.60-1.30ProSt. Mary'[facility] HospitalComment on above:Result Comment: METHOD TRACEABLE TO IDMS STANDARDPerformed By: #### BEDG #### [facility] ([facility]) [address] [place] [address] VIREGFR (CKD-EPI) NON-RACE DEPENDENT>^90Normal>=60ProSt. Mary'[facility] HospitalComment on above:Result Comment: Reported eGFR is based on the CKD-EPI 2020 equation that does not use a race coefficient.Performed By: #### BEDG #### [facility] ([facility]) [address] [place] [address] VIRGlucose [Mass/Vol]91 mg/wDTdqzsi46-69MwpNzjayn [place] HospitalComment on above:Performed By: #### BEDG #### [facility] ([facility]) [address] [place] [address] VIRPotassium [Moles/Vol]4.2 mmol/LNormal3.5-5.0ProSt. Mary'[facility] HospitalComment on above:Performed By: #### BEDG #### [facility] ([facility]) [address] [place] [address] VIRProtein [Mass/Vol]5.7 g/dLLow6.0-8.0ProSt. Mary'[facility] HospitalComment on above:Performed By: #### BEDG #### [facility] ([facility]) [address] [place] [address] VIRSodium [Moles/Vol]137 mmol/DFbqrqw540-259PcwCwbbip [place] HospitalComment on above:Performed By: #### BEDG #### [facility] ([facility]) [address] [place] [address] VIRUrea nitrogen [Mass/Vol]13 mg/dLNormal5-27ProSt. Mary'[facility] HospitalComment on above:Performed By: #### BEDG #### [facility] ([facility]) [address] [place] [address] VIRCBC WITH AUTO DIFFERENTIALon 28-67-7804ZDLZULYQY ABSOLUTE COUNT (10*3/UL) BY AUTOMATED COUNT0.1 10*3/uLNormal0.0-0.2ProMed[facility] System East CampusComment on above:Performed By: #### BEDG #### [facility] ([facility]) [address] [place] [address] VIRBASOPHILS RELATIVE PERCENT BY AUTOMATED COUNT0.5 %Normal [facility] HospitalComment on above:Performed By: #### BEDG #### [facility] ([facility]) [address] [place] [address] VIRCELLAVISION DIFFERENTIAL TYPEAUTOMATED DIFFERENTIALNormal [facility] HospitalComment on above:Performed By: #### BEDG #### [facility] ([facility]) [address] [place] [address] VIREosinophils (Bld) [#/Vol]0.3 10*3/uLNormal0.0-0.4[facility] HospitalComment on above:Performed By: #### BEDG #### [facility] ([facility]) [address] [place] [address] VIREOSINOPHILS RELATIVE PERCENT BY AUTOMATED COUNT3.0 %Normal [facility] HospitalComment on above:Performed By: #### BEDG #### [facility] ([facility]) [address] [place] [address] VIRErythrocyte distribution width (RBC) [Ratio]12.9 %Normal 11.5-15ProUc Medical CenterComment on above:Performed By: #### BEDG #### [facility] ([facility]) [address] [place] [address] VIRHematocrit (Bld) [Volume fraction]37.9 %Rqy68-75XykYdisoy Crescent HospitalComment on above:Performed By: #### BEDG #### [facility] ([facility]) [address] [place] [address] VIRHemoglobin (Bld) [Mass/Vol]12.6 g/sLPup39-76HezOlkcnq [facility] HospitalComment on above:Performed By: #### BEDG #### [facility] ([facility]) [address] [place] [address] VIRLYMPHOCYTES ABSOLUTE COUNT (10*3/UL) BY AUTOMATED COUNT1.0 10*3/uLNormal1.0-3.5[facility] HospitalComment on above:Performed By: #### BEDG #### [facility] ([facility]) [address] [place] [address] VIRLYMPHOCYTES RELATIVE PERCENT BY AUTOMATED COUNT10.4 %Normal [facility] HospitalComment on above:Performed By: #### BEDG #### [facility] ([facility]) [address] [place] [address] VIRMCH (RBC) [Entitic mass]29.4 fuThqsyr35-07TynSbrsqm [place] HospitalComment on above:Performed By: #### BEDG #### [facility] ([facility]) [address] [place] [address] VIRMCHC (RBC) [Mass/Vol]33.3 g/uDAemztz62-88CcuUpubtq [facility] HospitalComment on above:Performed By: #### BEDG #### [facility] ([facility]) [address] [place] [address] VIRMCV (RBC) [Entitic vol]88 xTIgscry40-534DnxVkvziu [facility] HospitalComment on above:Performed By: #### BEDG #### [facility] ([facility]) [address] [place] [address] VIRMONOCYTES ABSOLUTE COUNT (10*3/UL) BY AUTOMATED COUNT1.1 10*3/uLHigh0.0-0.9ProSt. [facility] HospitalComment on above:Performed By: #### BEDG #### [facility] ([facility]) [address] [facility] [place] [address] VIRMONOCYTES RELATIVE PERCENT BY AUTOMATED COUNT10.7 %Normal [facility] HospitalComment on above:Performed By: #### BEDG #### [facility] ([facility]) [address] [place] [facility] [address] VIRNEUTROPHILS ABSOLUTE COUNT BY AUTOMATED COUNT7.5 10*3/uLHigh 1.5-6.6ProSt. Mary'[facility] HospitalComment on above:Performed By: #### BEDG #### [facility] ([facility]) [address] [facility] [place] [address] VIRNEUTROPHILS RELATIVE PERCENT BY AUTOMATED COUNT75.4 %Normal [facility] HospitalComment on above:Performed By: #### BEDG #### [facility] ([facility]) [address] [place] [facility] [address] VIRPlatelet mean volume (Bld) [Entitic vol]7.4 fLNormal7-12 [facility] HospitalComment on above:Performed By: #### BEDG #### [facility] ([facility]) [address] [facility] [place] [address] VIRPlatelets (Bld) [#/Vol]283 10*3/rHNdtvgo431-362RqeJoxbza [place] HospitalComment on above:Performed By: #### BEDG #### [facility] ([facility]) [address] [facility] [address] VIRRBC COUNT4.30 X10E12/LNormal4.1-5.7[facility] Hospital Comment on above:Performed By: #### BEDG #### [facility] ([facility]) [address] [facility] [place] [address] VIRWBC (Bld) [#/Vol]10.0 10*3/uLNormal4-11ProCleveland Clinic Children'S Hospital For Rehabilitationca [facility] HospitalComment on above:Performed By: #### BEDG #### [facility] ([facility]) [address] [place] [address] VIRCOMPREHENSIVE METABOLIC PANELon 56-65-8601Dlvokir [Mass/Vol] 3.5 g/dLNormal3.2-5.3ProMedNationwide Children's Hospital HospitalComment on above:Performed By: #### BEDG #### [facility] ([facility]) [address] [place] [facility] [address] VIRALP [Catalytic activity/Vol]56 U/LCystzc17-227SdwLuavew [place] HospitalComment on above:Performed By: #### BEDG #### [facility] ([facility]) [address] [place] [address] VIRALT [Catalytic activity/Vol]11 U/LNormal<=40ProSt. [facility] HospitalComment on above:Performed By: #### BEDG #### [facility] ([facility]) [address] [place] [facility] [address] VIRAnion gap [Moles/Vol]8 mmol/LNormal5-15ProSt. [facility] HospitalComment on above:Performed By: #### BEDG #### [facility] ([facility]) [address] [place] [facility] [address] VIRAST [Catalytic activity/Vol]18 U/LNormal<=41ProCleveland Clinic Children'S Hospital For Rehabilitationca [facility] HospitalComment on above:Performed By: #### BEDG #### [facility] ([facility]) [address] [place] [facility] [address] VIRBilirubin [Mass/Vol]1.1 mg/dLNormal0.3-1.2ProMedNationwide Children's Hospital HospitalComment on above:Performed By: #### BEDG #### [facility] ([facility]) [address] [facility] [place] [address] VIRCalcium [Mass/Vol]8.9 mg/dLNormal8.5-10.5Pro[facility]kins HospitalComment on above:Performed By: #### BEDG #### [facility] ([facility]) [address] [place] [address] VIRChloride [Moles/Vol]99 mmol/XBilofc20-779KtnGfipmx [place] HospitalComment on above:Performed By: #### BEDG #### [facility] ([facility]) [address] [place] [address] VIRCO2 [Moles/Vol]29 mmol/AJdhwrz44-16LnxSwtuwt [facility] Comment on above:Performed By: #### BEDG #### [facility] ([facility]) [address] [place] [address] VIRCreatinine [Mass/Vol]0.78 mg/dLNormal0.60-1.30ProUc Medical CenterComment on above:Result Comment: METHOD TRACEABLE TO IDMS STANDARDPerformed By: #### BEDG #### [facility] ([facility]) [address] [place] [address] VIREGFR (CKD-EPI) NON-RACE DEPENDENT>^90Normal>=60ProUc Medical CenterComment on above:Result Comment: Reported eGFR is based on the CKD-EPI 2020 equation that does not use a race coefficient.Performed By: #### BEDG #### [facility] ([facility]) [address] [place] [address] VIRGlucose [Mass/Vol]93 mg/yDYvoyhh02-86HreQoxlrl [place] HospitalComment on above:Performed By: #### BEDG #### [facility] ([facility]) [address] [place] [address] VIRPotassium [Moles/Vol]4.3 mmol/LNormal3.5-5.0ProSt. Mary'[facility] HospitalComment on above:Performed By: #### BEDG #### [facility] ([facility]) [address] [place] [address] VIRProtein [Mass/Vol]6.0 g/dLNormal6.0-8.0ProSt. [facility] HospitalComment on above:Performed By: #### BEDG #### [facility] ([facility]) [address] [place] [address] VIRSodium [Moles/Vol]136 mmol/FXbwfnh453-329AbyYejjsx [place] HospitalComment on above:Performed By: #### BEDG #### [facility] ([facility]) [address] [place] [address] VIRUrea nitrogen [Mass/Vol]17 mg/dLNormal5-27ProSt. Mary'[facility] HospitalComment on above:Performed By: #### BEDG #### [facility] ([facility]) [address] [place] [address] VIRCBC WITH AUTO DIFFERENTIALon 04-55-3030BYLCXXNBD ABSOLUTE COUNT (10*3/UL) BY AUTOMATED COUNT0.1 10*3/uLNormal0.0-0.2PSelect Medical OhioHealth Rehabilitation Hospital - DublinComment on above:Performed By: #### BEDG #### [facility] ([facility]) [address] [place] [address] VIRBASOPHILS RELATIVE PERCENT BY AUTOMATED COUNT0.7 %Normal [facility] HospitalComment on above:Performed By: #### BEDG #### [facility] ([facility]) [address] [place] [address] VIRCELLAVISION DIFFERENTIAL TYPEAUTOMATED DIFFERENTIALNormal [facility] HospitalComment on above:Performed By: #### BEDG #### [facility] ([facility]) [address] [place] [address] VIREosinophils (Bld) [#/Vol]0.2 10*3/uLNormal0.0-0.4ProSt. Mary'[facility] HospitalComment on above:Performed By: #### BEDG #### [facility] ([facility]) [address] [place] [address] VIREOSINOPHILS RELATIVE PERCENT BY AUTOMATED COUNT2.1 %Normal [facility] HospitalComment on above:Performed By: #### BEDG #### [facility] ([facility]) [address] [place] [address] VIRErythrocyte distribution width (RBC) [Ratio]13.0 %Normal 11.5-15ProCleveland Clinic Children'S Hospital For Rehabilitationca [facility] HospitalComment on above:Performed By: #### BEDG #### [facility] ([facility]) [address] [place] [address] VIRHematocrit (Bld) [Volume fraction]38.2 %Vbu01-55MzzYdfemz [facility] HospitalComment on above:Performed By: #### BEDG #### [facility] ([facility]) [address] [place] [address] VIRHemoglobin (Bld) [Mass/Vol]12.9 g/eSSzr95-22CzeHylwxv [facility] HospitalComment on above:Performed By: #### BEDG #### [facility] ([facility]) [address] [place] [address] VIRLYMPHOCYTES ABSOLUTE COUNT (10*3/UL) BY AUTOMATED COUNT1.3 10*3/uLNormal1.0-3.5Pro[facility] System East CampusComment on above:Performed By: #### BEDG #### [facility] ([facility]) [address] [place] [address] VIRLYMPHOCYTES RELATIVE PERCENT BY AUTOMATED COUNT11.8 %Normal ProM[facility]era [facility] HospitalComment on above:Performed By: #### BEDG #### [facility] ([facility]) [address] [place] [address] VIRMCH (RBC) [Entitic mass]29.7 yrIkmuqg71-73TnpAehybk [facility] HospitalComment on above:Performed By: #### BEDG #### [facility] ([facility]) [address] [place] [address] VIRMCHC (RBC) [Mass/Vol]33.8 g/iWXeqphb95-77HevZqlmqx [place] HospitalComment on above:Performed By: #### BEDG #### [facility] ([facility]) [address] [place] [address] VIRMCV (RBC) [Entitic vol]88 cEKmxxiv09-728ErwVnqyco [place] HospitalComment on above:Performed By: #### BEDG #### [facility] ([facility]) [address] [place] [address] VIRMONOCYTES ABSOLUTE COUNT (10*3/UL) BY AUTOMATED COUNT1.1 10*3/uLHigh0.0-0.9[facility] HospitalComment on above:Performed By: #### BEDG #### [facility] ([facility]) [address] [place] [address] VIRMONOCYTES RELATIVE PERCENT BY AUTOMATED COUNT10.8 %Normal [facility] HospitalComment on above:Performed By: #### BEDG #### [facility] ([facility]) [address] [place] [address] VIRNEUTROPHILS ABSOLUTE COUNT BY AUTOMATED COUNT7.9 10*3/uLHigh 1.5-6.6[facility] HospitalComment on above:Performed By: #### BEDG #### [facility] ([facility]) [address] [place] [address] VIRNEUTROPHILS RELATIVE PERCENT BY AUTOMATED COUNT74.6 %Normal [facility] HospitalComment on above:Performed By: #### BEDG #### [facility] ([facility]) [address] [place] [address] VIRPlatelet mean volume (Bld) [Entitic vol]7.5 fLNormal7-12 [facility] HospitalComment on above:Performed By: #### BEDG #### [facility] ([facility]) [address] [place] [address] VIRPlatelets (Bld) [#/Vol]289 10*3/jLNhibgq461-640FwhWifmgq [facility] HospitalComment on above:Performed By: #### BEDG #### [facility] ([facility]) [address] [place] [address] VIRRBC COUNT4.34 X10E12/LNormal4.1-5.7ProSt. [facility] Hospital Comment on above:Performed By: #### BEDG #### [facility] ([facility]) [address] [place] [address] VIRWBC (Bld) [#/Vol]10.6 10*3/uLNormal4-11ProCleveland Clinic Children'S Hospital For Rehabilitationca [facility] HospitalComment on above:Performed By: #### BEDG #### [facility] ([facility]) [address] [place] [address] VIRCOMPREHENSIVE METABOLIC PANELon 49-08-7354Chaxjbw [Mass/Vol] 3.7 g/dLNormal3.2-5.3Pro[facility] HospitalComment on above:Performed By: #### BEDG #### [facility] ([facility]) [address] [place] [address] VIRALP [Catalytic activity/Vol]55 U/XYvpqzk23-668HbrYdlqyr [place] HospitalComment on above:Performed By: #### BEDG #### [facility] ([facility]) [address] [place] [address] VIRALT [Catalytic activity/Vol]11 U/LNormal<=40ProSt. [facility] HospitalComment on above:Performed By: #### BEDG #### [facility] ([facility]) [address] [place] [address] VIRAnion gap [Moles/Vol]9 mmol/LNormal5-15ProSt. [facility] HospitalComment on above:Performed By: #### BEDG #### [facility] ([facility]) [address] [place] [address] VIRAST [Catalytic activity/Vol]20 U/LNormal<=41ProCleveland Clinic Children'S Hospital For Rehabilitationca [facility] HospitalComment on above:Performed By: #### BEDG #### [facility] ([facility]) [address] [place] [address] VIRBilirubin [Mass/Vol]0.9 mg/dLNormal0.3-1.2PThe [facility] HospitalComment on above:Performed By: #### BEDG #### [facility] ([facility]) [address] [place] [address] VIRCalcium [Mass/Vol]8.8 mg/dLNormal8.5-10.5PThe [facility] HospitalComment on above:Performed By: #### BEDG #### [facility] ([facility]) [address] [place] [address] VIRChloride [Moles/Vol]99 mmol/TXtppgk91-904IeeNpcwbd [place] HospitalComment on above:Performed By: #### BEDG #### [facility] ([facility]) [address] [place] [address] VIRCO2 [Moles/Vol]29 mmol/XKbarap44-44KvuIlmcttSelect Medical [facility] Comment on above:Performed By: #### BEDG #### [facility] ([facility]) [address] [place] [address] VIRCreatinine [Mass/Vol]0.86 mg/dLNormal0.60-1.30ProSt. [facility] HospitalComment on above:Result Comment: METHOD TRACEABLE TO IDMS STANDARDPerformed By: #### BEDG #### [facility] ([facility]) [address] [place] [facility] [address] VIREGFR (CKD-EPI) NON-RACE DEPENDENT>^90Normal>=60ProSt. Mary'[facility] HospitalComment on above:Result Comment: Reported eGFR is based on the CKD-EPI 2020 equation that does not use a race coefficient.Performed By: #### BEDG #### [facility] ([facility]) [address] [place] [address] VIRGlucose [Mass/Vol]102 mg/mMPppx90-54FspScspig [place] HospitalComment on above:Performed By: #### BEDG #### [facility] ([facility]) [address] [place] [address] VIRPotassium [Moles/Vol]4.1 mmol/LNormal3.5-5.0ProCleveland Clinic Children'S Hospital For Rehabilitationca [facility] HospitalComment on above:Performed By: #### BEDG #### [facility] ([facility]) [address] [place] [address] VIRProtein [Mass/Vol]6.0 g/dLNormal6.0-8.0ProSt. Mary'[facility] HospitalComment on above:Performed By: #### BEDG #### [facility] ([facility]) [address] [place] [address] VIRSodium [Moles/Vol]137 mmol/YPuwsdo736-293PtyNtyiqm [place] HospitalComment on above:Performed By: #### BEDG #### [facility] ([facility]) [address] [place] [address] VIRUrea nitrogen [Mass/Vol]21 mg/dLNormal5-27ProSt. [facility] HospitalComment on above:Performed By: #### BEDG #### [facility] ([facility]) [address] [place] [address] VIRCBC WITH AUTO DIFFERENTIALon 01-30-7893BAKANTIWH ABSOLUTE COUNT (10*3/UL) BY AUTOMATED COUNT0.0 10*3/uLNormal0.0-0.2Pro[facility] East CampusComment on above:Performed By: #### CBCA #### [facility] ([facility]) [address] [place] [address] VIRBASOPHILS RELATIVE PERCENT BY AUTOMATED COUNT0.1 %Normal [facility] HospitalComment on above:Performed By: #### CBCA #### [facility] ([facility]) [address] [place] [address] VIRCELLAVISION DIFFERENTIAL TYPEAUTOMATED DIFFERENTIALNormal [facility] HospitalComment on above:Performed By: #### CBCA #### [facility] ([facility]) [address] [place] [address] VIREosinophils (Bld) [#/Vol]0.0 10*3/uLNormal0.0-0.4ProCleveland Clinic Children'S Hospital For Rehabilitationca [facility] HospitalComment on above:Performed By: #### CBCA #### [facility] ([facility]) [address] [place] [address] VIREOSINOPHILS RELATIVE PERCENT BY AUTOMATED COUNT0.0 %Normal [facility] HospitalComment on above:Performed By: #### CBCA #### [facility] ([facility]) [address] [place] [address] VIRErythrocyte distribution width (RBC) [Ratio]13.4 %Normal 11.5-15ProSt. [facility] HospitalComment on above:Performed By: #### CBCA #### [facility] ([facility]) [address] [place] [address] VIRHematocrit (Bld) [Volume fraction]39.2 %Jyxsmt03-09EpwSzpyrl [place] HospitalComment on above:Performed By: #### CBCA #### [facility] ([facility]) [address] [place] [address] VIRHemoglobin (Bld) [Mass/Vol]13.0 g/lCWmjqxx42-33OluUtcomw [place] HospitalComment on above:Performed By: #### CBCA #### [facility] ([facility]) [address] [place] [address] VIRLYMPHOCYTES ABSOLUTE COUNT (10*3/UL) BY AUTOMATED COUNT0.7 10*3/uLLow1.0-3.5Pro[facility] HospitalComment on above:Performed By: #### CBCA #### [facility] ([facility]) [address] [place] [address] VIRLYMPHOCYTES RELATIVE PERCENT BY AUTOMATED COUNT5.3 %Normal [facility] HospitalComment on above:Performed By: #### CBCA #### [facility] ([facility]) [address] [place] [address] VIRMCH (RBC) [Entitic mass]29.1 ciPgeojg41-52TxzLbsjos [facility]kins HospitalComment on above:Performed By: #### CBCA #### [facility] ([facility]) [address] [place] [address] VIRMCHC (RBC) [Mass/Vol]33.1 g/zGHbthht17-89AbwCprsrr [facility] HospitalComment on above:Performed By: #### CBCA #### [facility] ([facility]) [address] [place] [address] VIRMCV (RBC) [Entitic vol]88 [id number] Crescent HospitalComment on above:Performed By: #### CBCA #### [facility] ([facility]) [address] [place] [address] VIRMONOCYTES ABSOLUTE COUNT (10*3/UL) BY AUTOMATED COUNT1.3 10*3/uLHigh0.0-0.9[facility] HospitalComment on above:Performed By: #### CBCA #### [facility] ([facility]) [address] [place] [address] VIRMONOCYTES RELATIVE PERCENT BY AUTOMATED COUNT9.7 %Normal [facility] HospitalComment on above:Performed By: #### CBCA #### [facility] ([facility]) [address] [place] [address] VIRNEUTROPHILS ABSOLUTE COUNT BY AUTOMATED COUNT11.2 10*3/uL High1.5-6.6Pro[facility] Adkins HospitalComment on above:Performed By: #### CBCA #### [facility] ([facility]) [address] [place] [address] VIRNEUTROPHILS RELATIVE PERCENT BY AUTOMATED COUNT84.9 %Normal ProMUniversity [facility] HospitalComment on above:Performed By: #### CBCA #### [facility] ([facility]) [address] [place] [address] VIRPlatelet mean volume (Bld) [Entitic vol]7.7 fLNormal7-12 ProMUniversity [facility] HospitalComment on above:Performed By: #### CBCA #### [facility] ([facility]) [address] [place] [address] VIRPlatelets (Bld) [#/Vol]337 10*3/zWChrcrj610-466XnkNjmqgq [place] HospitalComment on above:Performed By: #### CBCA #### [facility] ([facility]) [address] [place] [address] VIRRBC COUNT4.46 X10E12/LNormal4.1-5.7ProSt. [facility] Comment on above:Performed By: #### CBCA #### [facility] ([facility]) [address] [place] [address] VIRWBC (Bld) [#/Vol]13.3 10*3/uLHigh4-11ProUc Medical CenterComment on above:Performed By: #### CBCA #### [facility] ([facility]) [address] [place] [address] VIRCOMPREHENSIVE METABOLIC PANELon 43-74-8200Cqprece [Mass/Vol] 3.9 g/dLNormal3.2-5.3ProMedica Crescent HospitalComment on above:Performed By: #### CMP #### [facility] ([facility]) [address] [place] [address] VIRALP [Catalytic activity/Vol]58 U/EWwmfub16-931PbyIfrxlq [place] HospitalComment on above:Performed By: #### CMP #### [facility] ([facility]) [address] [place] [address] VIRALT [Catalytic activity/Vol]13 U/LNormal<=40ProMedica Adkins HospitalComment on above:Performed By: #### CMP #### [facility] ([facility]) [address] [place] [address] VIRAnion gap [Moles/Vol]7 mmol/LNormal5-15ProMedica [facility]kins HospitalComment on above:Performed By: #### CMP #### [facility] ([facility]) [address] [place] [address] VIRAST [Catalytic activity/Vol]19 U/LNormal<=41ProMedica [facility] HospitalComment on above:Performed By: #### CMP #### [facility] ([facility]) [address] [place] [address] VIRBilirubin [Mass/Vol]0.8 mg/dLNormal0.3-1.2ProMedica Cres[facility] HospitalComment on above:Performed By: #### CMP #### [facility] ([facility]) [address] [place] [address] VIRCalcium [Mass/Vol]9.0 mg/dLNormal8.5-10.5ProMedica Cres[facility] HospitalComment on above:Performed By: #### CMP #### [facility] ([facility]) [address] [place] [address] VIRChloride [Moles/Vol]102 mmol/DVwyeoe73-166HjvKouakg [facility]kins HospitalComment on above:Performed By: #### CMP #### [facility] ([facility]) [address] [place] [address] VIRCO2 [Moles/Vol]28 mmol/LJqrwmo38-53WfcGkwgpc [facility] Comment on above:Performed By: #### CMP #### [facility] ([facility]) [address] [place] [address] VIRCreatinine [Mass/Vol]0.78 mg/dLNormal0.60-1.30ProMedica Crescent HospitalComment on above:Result Comment: METHOD TRACEABLE TO IDMS STANDARDPerformed By: #### CMP #### [facility] ([facility]) [address] [place] [address] VIREGFR (CKD-EPI) NON-RACE DEPENDENT>^90Normal>=60ProMedica Crescent HospitalComment on above:Result Comment: Reported eGFR is based on the CKD-EPI 2020 equation that does not use a race coefficient.Performed By: #### CMP #### [facility] ([facility]) [address] [place] [address] VIRGlucose [Mass/Vol]90 mg/oUYludqc78-30HjdRxldch Cres[facility] HospitalComment on above:Performed By: #### CMP #### [facility] ([facility]) [address] [place] [address] VIRPotassium [Moles/Vol]4.3 mmol/LNormal3.5-5.0ProMedica Cres[facility] HospitalComment on above:Performed By: #### CMP #### [facility] ([facility]) [address] [place] [address] VIRProtein [Mass/Vol]6.5 g/dLNormal6.0-8.0ProMedica Cres[facility] HospitalComment on above:Performed By: #### CMP #### [facility] ([facility]) [address] [place] [address] VIRSodium [Moles/Vol]137 mmol/CCtwlqz171-349NiaCranqo Cres[facility] HospitalComment on above:Performed By: #### CMP #### [facility] ([facility]) [address] [place] [address] VIRUrea nitrogen [Mass/Vol]20 mg/dLNormal5-27ProMedica Cres[facility] HospitalComment on above:Performed By: #### CMP #### [facility] ([facility]) [address] [place] [address] VIRFL SWALLOW MOTILITY FUNCTIONon 89-33-5359AW SWALLOW MOTILITY FUNCTIONFL SWALLOW MOTILITY FUNCTION FL SWALLOW MOTILITY FUNCTION HISTORY: Oropharyngeal dysphagia [...] for additional details and recommendations. Approved by Res Tai Koo MD on 07/08/2025 1:50 PM IDenny MD have personally reviewed the image(s) and agree with and/or edited the report Finalized by Denny Parekh MD on 07/08/2025 1:55 PMNormalHighland District HospitalLIPID PROFILEon 39-86-9972Cmmbuwdtjcd [Mass/Vol]111 mg/oBJwe918-368 [facility] CampusComment on above:Order Comment: fastingPerformed By: #### BEDG #### [facility] ([facility]) [address] [place] [address] VIRCholesterol in HDL [Mass/Vol]48 mg/dLNormal>39Highland District HospitalComment on above:Order Comment: fastingResult Comment: HDL <40 mg/dL - High Risk HDL > or = 40mg/dL- Desirable HDL >60 mg/dL - Negative RiskPerformed By: #### BEDG #### [facility] ([facility]) [address] [place] [address] VIRCholesterol in LDL [Mass/Vol]51 mg/dLNormal<130Highland District HospitalComment on above:Order Comment: fastingResult Comment: LDL <100 mg/dL - Desirable LDL >160 mg/dL - High RiskPerformed By: #### BEDG #### [facility] ([facility]) [address] [place] [address] VIRCHOLESTEROL:HDL2.5Lzyyda8.0-5.0ProSt. [facility] Comment on above:Order Comment: fastingPerformed By: #### BEDG #### [facility] ([facility]) [address] [place] [address] VIRTriglyceride [Mass/Vol]59 mg/hCQtknpy51-870IdeMygrzr [place] HospitalComment on above:Order Comment: fastingPerformed By: #### BEDG #### [facility] ([facility]) [address] [place] [address] VIRVERY LOW LDELGNYXZLE14 mg/dLNormal0-30ProUc Medical CenterComment on above:Order Comment: fastingPerformed By: #### BEDG #### [facility] ([facility]) [address] [place] [address] VIRB-TYPE NATRIURETIC PEPTIDEon 85-24-9462Qfevwhdapru peptide B (Bld) [Mass/Vol]45 pg/mLNormal<=100ProUc Medical CenterComment on above: Performed By: #### BNP #### [facility] ([facility]) [address] [place] [address] VIRBEDSIDE GLUCOSEon 16-92-4490Rtuaill [Mass/Vol]117 mg/dLHigh 65-99ProUc Medical CenterComment on above:Performed By: #### BEDG #### [facility] ([facility]) [address] [place] [address] VIRCBC WITH AUTO DIFFERENTIALon 20-69-0675LVULKNWAX ABSOLUTE COUNT (10*3/UL) BY AUTOMATED COUNT0.0 10*3/uLNormal0.0-0.2ProMedLancaster Municipal HospitalComment on above:Performed By: #### CBCA #### [facility] ([facility]) [address] [place] [address] VIRBASOPHILS RELATIVE PERCENT BY AUTOMATED COUNT0.3 %Normal [facility] Cres[facility] HospitalComment on above:Performed By: #### CBCA #### [facility] ([facility]) [address] [place] [address] VIRCELLAVISION DIFFERENTIAL TYPEAUTOMATED DIFFERENTIALNormal [facility] HospitalComment on above:Performed By: #### CBCA #### [facility] ([facility]) [address] [place] [address] VIREosinophils (Bld) [#/Vol]0.0 10*3/uLNormal0.0-0.4ProCleveland Clinic Children'S Hospital For Rehabilitationca Crescent HospitalComment on above:Performed By: #### CBCA #### [facility] ([facility]) [address] [place] [address] VIREOSINOPHILS RELATIVE PERCENT BY AUTOMATED COUNT0.1 %Normal [facility] HospitalComment on above:Performed By: #### CBCA #### [facility] ([facility]) [address] [place] [address] VIRErythrocyte distribution width (RBC) [Ratio]12.8 %Normal 11.5-15ProCleveland Clinic Children'S Hospital For Rehabilitationca Crescent HospitalComment on above:Performed By: #### CBCA #### [facility] ([facility]) [address] [place] [address] VIRHematocrit (Bld) [Volume fraction]40.0 %Hcmlpp95-90PqxZrjhos [place] HospitalComment on above:Performed By: #### CBCA #### [facility] ([facility]) [address] [place] [address] VIRHemoglobin (Bld) [Mass/Vol]13.3 g/qWAkoqub86-05LztMsgwex [place] HospitalComment on above:Performed By: #### CBCA #### [facility] ([facility]) [address] [place] [address] VIRLYMPHOCYTES ABSOLUTE COUNT (10*3/UL) BY AUTOMATED COUNT0.2 10*3/uLLow1.0-3.5ProMedica [facility] HospitalComment on above:Performed By: #### CBCA #### [facility] ([facility]) [address] [place] [address] VIRLYMPHOCYTES RELATIVE PERCENT BY AUTOMATED COUNT2.4 %Normal ProMUniversity Hospitals Conneaut [facility] Center HospitalComment on above:Performed By: #### CBCA #### [facility] ([facility]) [address] [place] [address] VIRMCH (RBC) [Entitic mass]29.4 mjHlqzda43-51WiaEezuyv Cres[facility] HospitalComment on above:Performed By: #### CBCA #### [facility] ([facility]) [address] [place] [address] VIRMCHC (RBC) [Mass/Vol]33.4 g/fQJqjmnu26-55LiyNedkgy [facility] HospitalComment on above:Performed By: #### CBCA #### [facility] ([facility]) [address] [place] [address] VIRMCV (RBC) [Entitic vol]88 wXIeojpw19-331PbdYcokka Crescent HospitalComment on above:Performed By: #### CBCA #### [facility] ([facility]) [address] [place] [address] VIRMONOCYTES ABSOLUTE COUNT (10*3/UL) BY AUTOMATED COUNT0.1 10*3/uLNormal0.0-0.9ProSt. [facility] HospitalComment on above:Performed By: #### CBCA #### [facility] ([facility]) [address] [place] [address] VIRMONOCYTES RELATIVE PERCENT BY AUTOMATED COUNT0.9 %Normal ProMUniversity Hospitals Conneaut Medical Center HospitalComment on above:Performed By: #### CBCA #### [facility] ([facility]) [address] [place] [address] VIRNEUTROPHILS ABSOLUTE COUNT BY AUTOMATED COUNT9.2 10*3/uLHigh 1.5-6.6ProCleveland Clinic Children'S Hospital For Rehabilitationca [facility] HospitalComment on above:Performed By: #### CBCA #### [facility] ([facility]) [address] [place] [address] VIRNEUTROPHILS RELATIVE PERCENT BY AUTOMATED COUNT96.3 %Normal ProMUniversity Hospitals Conneaut Medical Center HospitalComment on above:Performed By: #### CBCA #### [facility] ([facility]) [address] [place] [address] VIRPlatelet mean volume (Bld) [Entitic vol]7.5 fLNormal7-12 ProMUniversity Hospitals Conneaut Medical Center HospitalComment on above:Performed By: #### CBCA #### [facility] ([facility]) [address] [place] [address] VIRPlatelets (Bld) [#/Vol]314 10*3/bBFlzqpe205-835TioKxogso Cres[facility] HospitalComment on above:Performed By: #### CBCA #### [facility] ([facility]) [address] [place] [address] VIRRBC COUNT4.53 X10E12/LNormal4.1-5.7ProSt. [facility] Comment on above:Performed By: #### CBCA #### [facility] ([facility]) [address] [place] [address] VIRWBC (Bld) [#/Vol]9.5 10*3/uLNormal4-11ProSt. Mary'[facility] HospitalComment on above:Performed By: #### CBCA #### [facility] ([facility]) [address] [place] [address] VIRCOMPREHENSIVE METABOLIC PANELon 72-66-7929Wmbmfma [Mass/Vol] 4.0 g/dLNormal3.2-5.3ProMedica [facility] HospitalComment on above:Performed By: #### CMP #### [facility] ([facility]) [address] [place] [address] VIRALP [Catalytic activity/Vol]63 U/FVgwiio45-019LpdAbuoth [facility] HospitalComment on above:Performed By: #### CMP #### [facility] ([facility]) [address] [place] [address] VIRALT [Catalytic activity/Vol]14 U/LNormal<=40Pro[facility] HospitalComment on above:Performed By: #### CMP #### [facility] ([facility]) [address] [place] [address] VIRAnion gap [Moles/Vol]7 mmol/LNormal5-15Pro[facility] HospitalComment on above:Performed By: #### CMP #### [facility] ([facility]) [address] [place] [address] VIRAST [Catalytic activity/Vol]16 U/LNormal<=41Pro[facility] HospitalComment on above:Performed By: #### CMP #### [facility] ([facility]) [address] [place] [address] VIRBilirubin [Mass/Vol]0.7 mg/dLNormal0.3-1.2ProMedNationwide Children's Hospital HospitalComment on above:Performed By: #### CMP #### [facility] ([facility]) [address] [place] [address] VIRCalcium [Mass/Vol]8.8 mg/dLNormal8.5-10.5ProMedNationwide Children's Hospital HospitalComment on above:Performed By: #### CMP #### [facility] ([facility]) [address] [place] [address] VIRChloride [Moles/Vol]100 mmol/WPamkvo35-998KnbTloqvk [facility] HospitalComment on above:Performed By: #### CMP #### [facility] ([facility]) [address] [place] [address] VIRCO2 [Moles/Vol]30 mmol/NXqpiso05-16KjuMcekvc [facility] Comment on above:Performed By: #### CMP #### [facility] ([facility]) [address] [place] [address] VIRCreatinine [Mass/Vol]0.92 mg/dLNormal0.60-1.30ProSt. Mary'[facility] HospitalComment on above:Result Comment: METHOD TRACEABLE TO IDMS STANDARDPerformed By: #### CMP #### [facility] ([facility]) [address] [place] [address] VIREGFR (CKD-EPI) NON-RACE DEPENDENT>^90Normal>=60ProSt. Mary'S [facility] HospitalComment on above:Result Comment: Reported eGFR is based on the CKD-EPI 2020 equation that does not use a race coefficient.Performed By: #### CMP #### [facility] ([facility]) [address] [place] [address] VIRGlucose [Mass/Vol]124 mg/vTOlcv82-56KixZutwxt [place] HospitalComment on above:Performed By: #### CMP #### [facility] ([facility]) [address] [place] [address] VIRPotassium [Moles/Vol]3.9 mmol/LNormal3.5-5.0ProSt. Mary'[facility] HospitalComment on above:Performed By: #### CMP #### [facility] ([facility]) [address] [place] [address] VIRProtein [Mass/Vol]6.6 g/dLNormal6.0-8.0ProSt. [facility] HospitalComment on above:Performed By: #### CMP #### [facility] ([facility]) [address] [place] [address] VIRSodium [Moles/Vol]137 mmol/UHuheme275-193KjkXxzowp [place] HospitalComment on above:Performed By: #### CMP #### [facility] ([facility]) [address] [place] [address] VIRUrea nitrogen [Mass/Vol]17 mg/dLNormal5-27ProUc Medical CenterComment on above:Performed By: #### CMP #### [facility] ([facility]) [address] [place] [address] VIRCT CEREBRAL PERF ANALYSISon 40-57-4671QU CEREBRAL PERF ANALYSISCT CEREBRAL PERF ANALYSIS CT CEREBRAL PERF ANALYSIS CLINICAL INFORMATION:Stroke COMPARISON: None. PROCEDURE: CT brain perfusion study performed using IV contrast without complication. Examination was performed with postprocessing in the 3-D lab under concurrent supervision on an independent workstation. Parametric maps generated included mean transit time, cerebral blood volume and cerebral blood flow. Automated exposure control was utilized. All CT scans at this facility use dose modulation,iterative reconstruction, and/or weight based dosing when appropriate to reduce radiation dose to as low as reasonably achievable. FINDINGS: CBF < 30% Volume: 0 mL. TMax > 6.0 s Volume: 51 mL. Mismatch Volume: 51 mL. IMPRESSION: * Asymmetric decreased perfusion noted posterior fossa right greater than left temporal lobe regions. Finalized by Kishore Thomas MD on 07/07/2025 2:47 PMNormalProUc Medical CenterHEMOGLOBIN A1Con 46-98-3249Jkdcncr [Mass/Vol]117 mg/dLNormalProUc Medical CenterComment on above:Performed By: #### HA1C #### [facility] ([facility]) [address] [place] [address] EEIRiY5z (Bld) [Mass fraction]5.7 %High4.4-5.6ProUc Medical CenterComment on above:Result Comment: ADA Guidelines Result HgbA1c Normal : less than 5.7 % Prediabetes : 5.7 % to 6.4 % Diabetes : > 6.4 % Use with caution in patients with abnormal hemoglobin variants as the half-life of red blood cells and in vivo glycation rates are affected.Performed By: #### HA1C #### [facility] ([facility]) [address] [place] [address] VIRMR BRAIN WO CONTon 55-02-9219BS BRAIN WO CONTMR BRAIN WO CONT MRI brain: HISTORY: Mental status changes. CVA. [...] No intracranial mass or midline shift. Basilar cisternsare patent. Chronic ischemic changes also noted. Ventricles nondilated. IMPRESSION: Acute to subacute right frontal and parietal cortical ischemia with small region of the right parietal petechial hemorrhagic transformation. Finalized by Mich Diaz MD on 07/07/2025 9:12 [facility] VWon 00-08-7895XT CHEST 1 VWXR CHEST 1 VW Single view chest History: Difficulty breathing, shortness of breath Comparison: 03/08/2022 Impression: No acute pulmonary process. No pneumothorax or pleural effusion. Nonenlarged heart. Finalized by Mark Anthony MD on 07/07/2025 7:20 [facility] 2Von 03-91-[place], [place] [address] XRay Report Signed Patient: SAM CARRASCO MR#: [id number] : 1960 Acct:[id number] Age/Sex: 64 / M ADM Date: 11/16/24 Loc: RAD Attending Dr: Azul Quezada NP Ordering Physician: Azul Quezada NP Date of Service: 11/16/24 Procedure(s): XR chest 2V Accession Number(s): [id number] cc: Azul Quezada NP [address] [address] Patient Name: SAM CARRASCO MRN: [id number] date: 1960 Sex: M Assigned Patient Location: RAD Current Patient Location: RAD Accession/Order Number: [id number] Exam Date: 11/16/2024 19:23 Report Date: 11/16/2024 [...] Carlos Knight M.D.11/16/2024 7:24 PM Dictation Location: [place] [address] Electronically authenticated by: [id number] Y Date: 11/16/2024 19:24 Dictated By: Carlos Knight M.D. Signed By: 11/16/241925 DD/ 23 TD/TT: Registration Manager:JACKELYNHRadiology, Radiologist, - 11/16/2024 [facility] [place] [id number] XRay Report Signed Patient: SAM CARRASCO MR#: [id number] : 1960 Acct:[id number] Age/Sex: 64 / M ADM Date: 11/16/24 Loc: RAD Attending Dr: Azul Quezada NP Ordering Physician: Azul Quezada NP Date of Service: 11/16/24 Procedure(s): XR chest 2V Accession Number(s): [id number] cc: Azul Quezada NP The [place] [id number] Patient Name: SAM CARRASCO MRN: [id number] date: 1960 Sex: M Assigned Patient Location: RAD Current Patient Location: RAD Accession/Order Number: [id number] Exam Date: 11/16/2024 19:23 Report Date: 11/16/2024 [...] Carlos Knight M.D.11/16/2024 7:24 PM Dictation Location: [place] [address] Electronically authenticated by: [id number] Y Date: 11/16/2024 19:24 Dictated By: Carlos Knight M.D. Signed By: 11/16/241925 DD/ 23 TD/TT: Registration Manager: KAELYN HealthcareRadiology Study observation (narrative)[facility] HealthcareXR CHEST 2V Ordered By: Radiologist Radiology on 74-98-0137X[facility] Work Phone: aLL HEMOGLOBINon 54-71-1587Midnyhvlyz (Bld) [Mass/Vol] 14.8 g/dL14.0 - 18.0 g/dLNOUT HealthcareCLINISYNCNOMS HealthcareCT LUNG SCREENING LOW DOSEon 70-88-9407[address] [address] [address] Scan Report Signed Patient: SAM CARRASCO MR#: [id number] : 1960 Acct:[id number] Age/Sex: 64 / M ADM Date: 09/06/24 Loc: CT Attending Dr: Jameson White D.O. Ordering Physician: Jameson White D.O. Date of Service: 09/06/24 Procedure(s): CT lung screening low-dose Accession Number(s): [id number] cc: Azul Quezada NP [address] [address] Patient Name: SAM CARRASCO MRN: [id number] date: 1960 Sex: M Assigned Patient Location: CT Current Patient Location: Accession/Order Number: [id number] Exam Date: 09/06/2024 14:22 Report Date: 09/08/2024 [...] 3 months is recommended. Electronically authenticated by: YARIEL OLSON Date: 09/08/2024 05:49 Dictated By: Yariel Olson M.D. Signed By: 09/08/24 0551 DD/ TD/TT: Registration Manager:TBHRadiology, Radiologist, - 09/08/2024 [place] [address] CT Scan Report Signed Patient: SAM CARRASCO MR#: [id number] : 1960 Acct:[id number] Age/Sex: 64 / M ADM Date: 09/06/24 Loc: CT Attending Dr: Jameson White D.O. Ordering Physician: Jameson White D.O. Date of Service: 09/06/24 Procedure(s): CT lung screening low-dose Accession Number(s): [id number] cc: Azul Quezada NP The [address] [address] Patient Name: SAM CARRASCO MRN: [id number] date: 1960 Sex: M Assigned Patient Location: CT Current Patient Location: Accession/Order Number: [id number] Exam Date: 09/06/2024 14:22 Report Date: 09/08/2024 [...] 3 months is recommended. Electronically authenticated by: YARIEL OLSON Date: 09/08/2024 05:49 Dictated By: Yariel Olson M.D. Signed By: 09/08/2451 DD/ TD/TT: Registration Manager: [facility] HealthcareRadiology Study observation (narrative)[facility] HealthcareCT LUNG SCREENING LOW DOSEOrdered By: Radiologist Radiology on [id number] [employer] Work Phone: PSA TOTAL+% FREEon 09-07-2024% FREE PSA26.0 %.[facility] HealthcareComment on above:The table below lists the probability of prostate cancer for men with non-suspicious UJNI results and total PSA between 4 and [...] any other population of men. Performed at: [facility] website[address] [id number] [employer] Mechanic: Mich Orozco PhD, Phone: [phone] Prostate specific Ag [Mass/Vol]1.0 ng/mL0.0 - 4.0 ng/mLNCREEK NATION [facility] [place] HealthcareComment on above:[employer] ECLIA methodology. According to the [employer] [employer], Serum PSA should decrease and [...] presence or absence of malignant disease. PSA, FREE0.26 ng/mLN/ANOMS HealthcareComment on above:[employer] ECLIA methodology. CLINISYRegionalOne Health CenterALL CBC WITH AUTO DIFFon [id number] ABSOLUTE AUTO0.1NOMS HealthcareBasophils/100 WBC (Bld)0.9 %0.2 - 2.0 %[facility] Eosinophils/100 WBC (Bld)0.1 %Low0.9 - 7.0 %[facility] CenterErythrocyte distribution width (RBC) [Ratio]12.8 %11.0 - 15.0 %[facility] CenterHematocrit (Bld) [Volume fraction]43.1 %42.0 - 54.0 %[facility] CenterHemoglobin (Bld) [Mass/Vol]13.9 g/dLLow14.0 - 18.0 g/dLMadison Medical CenterIMMATURE GRANULOCYTES ABS AUTO0.03NOSaint Joseph Hospital WestImmature granulocytes/100 WBC (Bld)0.3 %0.0 - 0.5 %[facility] CenterInterpretation and review of laboratory resultsAbnormalMad[facility] Center LYMPHOCYTES ABSOLUTE AUTO1.2NOMS [facility] SouthLymphocytes/100 WBC (Bld)14 %Low20.5 - 60.0 %[facility] HospitalH (RBC) [Entitic mass]30.3 pg25.9 - 34.0 pgRipley County Memorial HospitalHC (RBC) [Mass/Vol]32.3 g/dL29.9 - 35.2 g/dLRipley County Memorial HospitalV (RBC) [Entitic vol]94.1 zCDygo93.0 - 94.0 fLMadison Medical CenterMONOCYTES ABSOLUTE AUTO0.9 HighCASTLEVIEW HOSPITAL HealthcareMonocytes/100 WBC (Bld)9.7 %1.7 - 12.0 %[facility] NEUTROPHILS ABSOLUTE AUTO6.5NOSaint Joseph Hospital WestNeutrophils/100 WBC (Bld)75 %43.0 - 75.0 %[facility] CenterPlatelet mean volume (Bld) [Entitic vol]10.1 fL9.5 - 13.5 fLNOMS HealthcareTBH EO #0NOMS HealthcareTBH [id number] HealthcareTBH RBC4.58Low NOM[facility] HealthcareTBH WBC8.7NOMS HealthcareCLINISYNCNOMS HealthcareTBH UA (CLEAN/CATCH) MICROSCOPIC IF INDICATEon 29-66-0962KTIDUDXNP URINENegative NEGATIVENOMS HealthcareBLOOD URINENegativeNEGATIVENOMS HealthcareClarity (U) CLEARCLEARNOMS HealthcareColor (U)LT. YELLOWYELLOWNOMS HealthcareGLUCOSE URINE UANegativeNEGATIVE mg/dLNOUT HealthcareInterpretation and review of laboratory resultsAbnormalNOMS HealthcareKetones Ql (U)NegativeNEGATIVE mg/dLNOMS HealthcareLeukocyte esterase Test strip Ql (U)SMALLAbnormalNEGATIVENOMS HealthcareNITRITE URINENegativeNEGATIVENOMS HealthcarepH (U)6.0 [pH]5.0 - 9.0 NOMS HealthcarePROTEIN URINENegativeNEG/TRACE mg/dLNOMS HealthcareSPECIFIC GRAVITY URINE1.0151.005 - 1.025NOUT HealthcareURINE MICROSCOPIC INDICATEDYESNOMS HealthcareUROBILINOGEN URINE0.2 EU/dL0.2 - 1.0 EU/dLNOUT HealthcareCLINISYNC NOMS HealthcareBNPon 47-64-5493Hjvuglcnmnx peptide B (Bld) [Mass/Vol]42.0 pg/mL Normal<=900.0The [facility] HospitalComment on above:Performed By: #### INFLUAB #### [facility] [address] [place] [address] Dr. Tom Mendez AUTO DIFFon 62-16-5428MJKP #0.1 103/ulNormal0.0-0.1The [facility] Of God HospitalComment on above:Performed By: #### CBC #### [facility] [address] [address] [address] Tom Santiagosophils/100 WBC (Bld)0.8 %Normal0.2-2.0The [facility] Comment on above:Performed By: #### CBC #### [facility] [address] [address] [address] Santos ChangEPrimo #0.0 103/ulNormal0.0-0.7The [facility]rose HospitalComment on above: Performed By: #### CBC #### [facility] [address] [place] [address] Dr. Tom Mannosinophils/100 WBC (Bld)0.0 %Critically low0.9-7.0The [facility] Of God HospitalComment on above:Performed By: #### CBC #### [facility] [address] [place] [address] Dr. Tom Mannrythrocyte distribution width (RBC) [Ratio]12.4 %Qwvwgr76.0-15.[address] [facility] HospitalComment on above:Performed By: #### CBC #### [facility] [address] [place] [address] Dr. Tom DotsonHematocrit (Bld) [Volume fraction]43.6 %Trgngt84.0-54.0The [facility] God HospitalComment on above:Performed By: #### CBC #### [facility] [address] [place] [address] Dr. Tom DotsonHemoglobin (Bld) [Mass/Vol]14.3 g/qLOgnwoe68.0-18.0The [facility] HospitalComment on above:Performed By: #### CBC #### [facility] [address] [place] [address] Dr. Tom Salgado #0.02 10e3/ulNormal0.00-0.03The [facility] God HospitalComment on above:Performed By: #### CBC #### [facility] [address] [place] [address] Dr. Tom Salgado %0.3 %Normal0.0-0.5The [facility] Of God HospitalComment on above: Performed By: #### CBC #### [facility] [address] [place] [address] Dr. Tom MenjivarH #1.4 103/ulNormal1.2-3.8The [facility] Of God HospitalComment on above:Performed By: #### CBC #### [facility] [address] [place] [address] Dr. Tom Lugomphocytes/100 WBC (Bld)17.3 %Critically low20.5-60.0The [facility] HospitalComment on above:Performed By: #### CBC #### [facility] [address] [place] [address] Dr. Tom Tang DIFF REQNONormalThe St. John Of God HospitalComment on above: Performed By: #### CBC #### [facility] [address] [place] [address] Dr. Tom Anderson (RBC) [Entitic mass]29.8 cmOtdszz90.9-34.0The [facility] HospitalComment on above:Performed By: #### CBC #### [facility] [address] [place] [address] Dr. Tom Anderson (RBC) [Mass/Vol]32.8 g/jHYtaxdp51.9-35.2The [facility] HospitalComment on above:Performed By: #### CBC #### [facility] [address] [place] [address] Dr. Tom Briggs (RBC) [Entitic vol]90.8 eRCsobch57.0-94.0The [facility] HospitalComment on above:Performed By: #### CBC #### [facility] [address] [place] [address] Dr. Tom Baires #0.7 103/ulNormal0.3-0.8The [facility] HospitalComment on above:Performed By: #### CBC #### [facility] [address] [place] [address] Dr. Tom Phanocytes/100 WBC (Bld)9.4 %Normal1.7-12.0The [facility] Comment on above:Performed By: #### CBC #### [facility] [address] [place] [address] Dr. Tom Kevin #5.7 103/ulNormal1.4-6.5The [facility] HospitalComment on above:Performed By: #### CBC #### [facility] [address] [place] [address] Dr. Tom Watermanophils/100 WBC (Bld)72.2 %Kzwmpt32.0-75.0The [facility] God HospitalComment on above:Performed By: #### CBC #### [facility] [address] [place] [address] Dr. Tom Monroy mean volume (Bld) [Entitic vol]9.6 fLNormal9.5-13.5The [facility] God HospitalComment on above:Performed By: #### CBC #### [facility] [address] [place] [address] Dr. Tom PoeT331 103/qtGlrrmf201-985Wyq St. [facility] Of God HospitalComment on above: Performed By: #### CBC #### [facility] [address] [place] [address] Dr. Tom DotsonRBC4.80 106/ulNormal4.70-6.10The [facility] HospitalComment on above:Performed By: #### CBC #### [facility] [address] [place] [address] Dr. Tom DotsonWBC7.8 103/ulNormal4.0-11.0The [facility] HospitalComment on above: Performed By: #### CBC #### [facility] [address] [place] [address] Dr. Tom Pro BLOODon 68-22-6929Scfszwbcswu examination of blood, cultureCulture Observations: NO GROWTH AT [address] [facility] Of God HospitalComment on above:Performed By: #### INFLUAB #### [facility] [address] [place] [address] Dr. Tom DotsonMicroscopic examination of blood, cultureCulture Observations: NO GROWTH AT [address] [facility] Of God HospitalComment on above:Performed By: #### INFLUAB #### [facility] [address] [place] [address] Dr. Tom DotsonCovid-19 PCR (CVDTB)on 85-87-0151QXLX-CoV-2 (COVID-19) RNA OLGA+probe Ql (Unsp spec)Not detectedNormalNOT DETECTEDThe [facility] Comment on above:Result Comment: When diagnostic testing is negative, the [...] for this test is supported by the [employer] of Health and Human Service's declaration that circumstances exist to justify the emergency use of in vitro diagnostics for the detection and/or diagnosis of the virus that causes COVID-19. This EUA will remain in effect for the duration of the COVID-19 declaration justifying emergency of IVDs, unless it is terminated or revoked by the FDA (after which the test may no longer be used).Performed By: #### CVDTBH #### [facility] [address] [place] [address] Dr. Tom Carvalho AND B AGon [id number] North Health Center on above:Result Comment: Negative for Flu A protein angiten. Infection due to Flu A cannot be ruled out. FluA angiten in the sample may be below the detection limit of the test.Performed By: #### INFLUAB #### [facility] [address] [place] [address] Dr. Tom LagosNEGPABLO [facility] on above: Result Comment: Negative for Flu B protein antigen. Infection due to Flu B cannot be ruled out. FluB antigen in the sample may be below the detection limit of the test.Performed By: #### INFLUAB #### [facility] [address] [place] [address] Dr. Tom Carvalho AGNegativeNormalNEGATIVE SEE COMMENTThe [facility] on above:Performed By: #### INFLUAB #### [facility] [address] [place] [address] Dr. Tom Chavez AGNegativeNormalNEGATIVE SEE COMMENTThe Joel HospitalComment on above:Performed By: #### INFLUAB #### [facility] [address] [address] [address] Tom DotsonLACTATE/LACTIC ACIDon 95-26-0458Nfczdlj [Moles/Vol]0.7 mmol/L Normal0.4-1.9The [facility] HospitalComment on above:Performed By: #### LACT #### [facility] [address] [address] [address] Tom DotsonPROF CHEM 8 (BAS METB)on 99-89-2417Zehhm gap [Moles/Vol]9.3 mmol/LNormalThe St. [facility] Of God HospitalComment on above:Performed By: #### HSTROPN, BMP, BNP #### [facility] [address] [place] [address] Dr. Tom DotsonCalcium [Mass/Vol]8.8 mg/dLNormal8.5-10.1The [facility] Comment on above:Performed By: #### HSTROPN, BMP, BNP #### [facility] [address] [place] [address] Dr. Tom DotsonChloride [Moles/Vol]103 mmol/SPbrifs53-734Ukz [facility] Comment on above:Performed By: #### HSTROPN, BMP, BNP #### [facility] [address] [place] [address] Dr. Tom DotsonCO2 [Moles/Vol]31.1 mmol/KKwrxwe35.0-32.0The [facility] Comment on above:Performed By: #### HSTROPN, BMP, BNP #### [facility] [address] [place] [address] Dr. Tom DotsonCreatinine [Mass/Vol]0.77 mg/dLNormal0.70-1.30The [facility] HospitalComment on above:Performed By: #### HSTROPN, BMP, BNP #### [facility] [address] [place] [address] Dr. Santos ChangEGFR-AF AFGHAN>60Normal>=60The [facility] HospitalComment on above:Performed By: #### HSTROPN, BMP, BNP #### [facility] [address] [address] [address] Tom MannGFR-NON AF AFGHAN>60Normal>=60The [facility] HospitalComment on above:Performed By: #### HSTROPN, BMP, BNP #### [facility] [address] [address] [address] Tom DotsonGlucose [Mass/Vol]98 mg/vVEnxvdm23-268HawLancaster Municipal Hospital Comment on above:Performed By: #### HSTROPN, BMP, BNP #### [facility] [address] [place] [address] Dr. Tom DotsonPotassium [Moles/Vol]4.4 mmol/LNormal3.5-5.1[facility] Comment on above:Performed By: #### HSTROPN, BMP, BNP #### [facility] [address] [place] [address] Dr. Tom Kesslerdium [Moles/Vol]139 mmol/AQgtpxd179-418XqtLancaster Municipal Hospital Comment on above:Performed By: #### HSTROPN, BMP, BNP #### [facility] [address] [address] [address] Tom DotsonUrea nitrogen [Mass/Vol]13.0 mg/dLNormal7.0-18.0The [facility] HospitalComment on above:Performed By: #### HSTROPN, BMP, BNP #### [facility] [address] [place] [address] Dr. Tom Reed nitrogen/Creatinine [Mass ratio]16.9 mg/mgNormalThe St. [facility] Of God HospitalComment on above:Performed By: #### HSTROPN, BMP, BNP #### [facility] [address] [place] [address] Dr. Tom Stover, HIGH SENSITIVITYon 44-98-2330ZPNHEE3.4 pg/mLNormal 4.0-76.1[facility] on above:Result Comment: CUT-OFF POINTS HAVE BEEN ESTABLISHED BASED ON THE FOURTH UNIVERSAL DEFINITIONS OF MYOCARDIAL INFARCTION. THE UPPER REFERENCE LIMIT (URL) OF TROPONIN, DEFINED THE 99TH PERCENTILE OF cTnI DISTRIBUTION IN A REFERENCE POPULATION, HAS BEEN CONFIRMED THE DECISION THRESHOLD FOR MO DIAGNOSIS.Performed By: #### INFLUAB #### [facility] [address] [place] [address] Dr. Tom DotsonXR CHEST 1 Von [id number] CHEST 1 VEXAMINATION: XR CHEST 1 V HISTORY: SHORTNESS OF [...] Electronically authenticated by: YARIEL OLSON Date: 2022-09-25 10:55NormalThTrinity Health System Twin City Medical CenterASPERGILLUS AB, QUANTITATIVE DIDon 01-88-9756Czonraxqbby flavus NegativeNormalNeg:<1:1[facility] HospitalComment on above:Performed By: #### ASPDID #### [facility] [address] [place] [address] Dr. Tom Garcias fumigatusNegativeNormalNeg:<1:1[facility] Comment on above:Performed By: #### ASPDID #### [facility] [address] [address] [address] Tom Garcias nigerNegativeNormalNeg:<1:1[facility] Comment on above:Performed By: #### ASPDID #### [facility] [address] [place] [address] Dr. Tom DotsonANTI NEUTROPHIL CYTOPLASMIC AB (ANCA) PRon [id number]-MPO Antibodies<0.3Ezytgz4.0-0.9[facility] HospitalComment on above:Result Comment: Performed at: BNPerformed By: #### CBC #### [facility] [address] [place] [address] Dr. Tom DotsonAnti-PR3 Antibodies<0.0Khvzpv9.0-0.9[facility] HospitalComment on above:Result Comment: Performed at: BNPerformed By: #### CBC #### [facility] [address] [place] [address] Dr. Tom DotsonAtypical pANCA<1:20NormalNeg:<1:20ThTrinity Health System Twin City Medical CenterComment on above:Result Comment: The atypical pANCA pattern has been observed in a significant percentage of patients with ulcerative colitis, primary sclerosing cholangitis and autoimmune hepatitis. Performed at: CBPerformed By: #### CBC #### [facility] [address] [place] [address] Dr. Tom DotsonCytoplasmic (C-ANCA)<1:20NormalNeg:<1:20ThTrinity Health System [facility] Center Comment on above:Result Comment: Performed at: CBPerformed By: #### CBC #### [facility] [address] [place] [address] Dr. Tom DotsonPerinuclear (P-ANCA)<1:20NormalNeg:<1:20ThTrinity Health System Twin City Medical Center Comment on above:Result Comment: The presence of positive fluorescence exhibiting P-ANCA or C-ANCA patterns alone is not specific for the diagnosis of Nevin's Granulomatosis (WG) or microscopic polyangiitis. Decisions about treatment should not be based solely on ANCA IFA results. The International ANCA Group Consensus recommends follow up testing of positive sera with both KY-3 and MPO-ANCA enzyme immunoassays. As many as 5% serum samples are positive only by EIA. Ref. AM J Clin Pathol 1999;111:507-513. Performed at: CBPerformed By: #### CBC #### [facility] [address] [place] [address] Dr. Tom DotsonIMMUNOGLOBULIN E, TOTALon [id number] E, Total68 IU/mLNormal6-495The [facility] HospitalComment on above:Performed By: #### IGETOT #### [facility] [address] [place] [address] Dr. Tom DotsonANGIOTENSION-CONVERTING ENZYME (ELINOR)on [id number] U/LNormal 14-82The [facility] HospitalComment on above:Performed By: #### ANGIOC #### [facility] [address] [place] [address] Dr. Tom IbarraC AUTO DIFFon [id number] #0.1 103/ulNormal0.0-0.1The [facility] HospitalComment on above:Performed By: #### INFLUAB #### [facility] [address] [place] [address] Dr. Tom DotsonBasophils/100 WBC (Bld)1.0 %Normal0.2-2.0The [facility] Comment on above:Performed By: #### INFLUAB #### [facility] [address] [place] [address] Dr. Tom MannO #0.0 103/ulNormal0.0-0.7The [facility] HospitalComment on above: Performed By: #### INFLUAB #### [facility] [address] [place] [address] Dr. oTm Mannosinophils/100 WBC (Bld)0.1 %Critically low0.9-7.0The [facility] on above:Performed By: #### INFLUAB #### [facility] [address] [place] [address] Dr. Tom Mannrythrocyte distribution width (RBC) [Ratio]12.9 %Hlgooi88.0-15.[address] [facility] HospitalComment on above:Performed By: #### INFLUAB #### [facility] [address] [place] [address] Dr. Tom DotsonHematocrit (Bld) [Volume fraction]44.8 %Mucogv68.0-54.0The [facility] Hospitalment on above:Performed By: #### INFLUAB #### [facility] [address] [place] [address] Dr. Tom DotsonHemoglobin (Bld) [Mass/Vol]15.0 g/bVMbntlk53.0-18.0The [facility] HospitalComment on above:Performed By: #### INFLUAB #### [facility] [address] [address] [address] Tom Salgado #0.02 10e3/ulNormal0.00-0.03The [facility] HospitalCombronson south [facility] on above:Performed By: #### INFLUAB #### [facility] [address] [place] [address] Dr. Tom Salgado %0.2 %Normal0.0-0.5The [facility] HospitalCombronson south haven hospital on above: Performed By: #### INFLUAB #### [facility] [address] [place] [address] Dr. Tom Lares #1.4 103/ulNormal1.2-3.8The [facility] HospitalCombronson south haven hospital on above:Performed By: #### INFLUAB #### [facility] [address] [place] [address] Dr. Tom Menjivarhocytes/100 WBC (Bld)17.6 %Critically low20.5-60.0The [facility] HospitalCombronson south haven hospital on above:Performed By: #### INFLUAB #### [facility] [address] [place] [address] Dr. Tom McgillUAL DIFF REQNONormalThe St. [facility] Of God HospitalComment on above: Performed By: #### INFLUAB #### [facility] [address] [place] [address] Dr. Tom Anderson (RBC) [Entitic mass]30.9 soImilmi54.9-34.0The [facility] HospitalComment on above:Performed By: #### INFLUAB #### [facility] [address] [place] [address] Dr. Tom Anderson (RBC) [Mass/Vol]33.5 g/vWAupvfy07.9-35.2The [facility] HospitalCombronson south [facility] hospital on above:Performed By: #### INFLUAB #### [facility] [address] [place] [address] Dr. Tom Anderson (RBC) [Entitic vol]92.2 pZOlxpwb00.0-94.0The [facility] HospitalComment on above:Performed By: #### INFLUAB #### [facility] [address] [place] [address] Dr. Tom Baires #0.8 103/ulNormal0.3-0.8The [facility] HospitalComment on above:Performed By: #### INFLUAB #### [facility] [address] [place] [address] Dr. Tom Phanocytes/100 WBC (Bld)9.6 %Normal1.7-12.0The [facility] Comment on above:Performed By: #### INFLUAB #### [facility] [address] [place] [address] Dr. Tom Kevin #5.9 103/ulNormal1.4-6.5The [facility] HospitalComment on above:Performed By: #### INFLUAB #### [facility] [address] [place] [address] Dr. Tom Riverautrophils/100 WBC (Bld)71.5 %Ilfdph06.0-75.0The [facility] HospitalComment on above:Performed By: #### INFLUAB #### [facility] [address] [place] [address] Dr. Tom Monroy mean volume (Bld) [Entitic vol]9.9 fLNormal9.5-13.5The [facility] HospitalComment on above:Performed By: #### INFLUAB #### [facility] [address] [place] [address] Dr. Tom DotsonPLT325 103/usAflmvt619-605Aud St. [facility] HospitalComment on above: Performed By: #### INFLUAB #### [facility] [address] [place] [address] Dr. Tom DotsonRBC4.86 106/ulNormal4.70-6.10The [facility] HospitalComment on above:Performed By: #### INFLUAB #### [facility] [address] [place] [address] Dr. Tom DotsonWBC8.2 103/ulNormal4.0-11.0The [facility] HospitalComment on above: Performed By: #### INFLUAB #### [facility] [address] [address] [address] Tom Meza LUNG CANCER SCREENINGon 32-95-6513YB LUNG CANCER SCREENING EXAMINATION: CT LUNG CANCER [...] Electronically authenticated by: YARIEL OLSON Date: 2022-04-10 22:[address] [place] [address] AUTO DIFFon [id number] #0.1 103/ulNormal0.0-0.1The [facility] HospitalComment on above:Performed By: #### CBC #### [facility] [address] [place] [address] Dr. Tom DotsonBasophils/100 WBC (Bld)1.0 %Normal0.2-2.0The [facility] Comment on above:Performed By: #### CBC #### [facility] [address] [address] [address] Tom Xiao #2.5 103/ulCritically high0.0-0.7The [facility] HospitalComment on above:Performed By: #### CBC #### [facility] [address] [place] [address] Dr. Tom Mannosinophils/100 WBC (Bld)29.1 %Critically high0.9-7.0The [facility] HospitalComment on above:Performed By: #### CBC #### [facility] [address] [place] [address] Dr. Tom Mannrythrocyte distribution width (RBC) [Ratio]12.8 %Idpfak65.0-15.[address] [facility] HospitalComment on above:Performed By: #### CBC #### [facility] [address] [place] [address] Dr. oTm DotsonHematocrit (Bld) [Volume fraction]46.6 %Raopaf90.0-54.0The [facility] HospitalComment on above:Performed By: #### CBC #### [facility] [address] [place] [address] Dr. Tom DotsonHemoglobin (Bld) [Mass/Vol]14.4 g/mPQcsfia81.0-18.0The [facility] HospitalComment on above:Performed By: #### CBC #### [facility] [address] [place] [address] Dr. Tom Salgado #0.04 10e3/ulCritically high0.00-0.03The [facility] Comment on above:Performed By: #### CBC #### [facility] [address] [place] [address] Dr. Tom Salgado %0.5 %Normal0.0-0.5The [facility] HospitalComment on above: Performed By: #### CBC #### [facility] [address] [place] [address] Dr. Tom MenjivarH #1.3 103/ulNormal1.2-3.8The [facility] HospitalComment on above:Performed By: #### CBC #### [facility] [address] [place] [address] Dr. Tom Lugomphocytes/100 WBC (Bld)15.1 %Critically low20.5-60.0The [facility] HospitalComment on above:Performed By: #### CBC #### [facility] [address] [place] [address] Dr. Tom McgillUAL DIFF REQNONormalThe St. [facility] Of [facility] HospitalComment on above: Performed By: #### CBC #### [facility] [address] [place] [address] Dr. Tom Anderson (RBC) [Entitic mass]29.5 ztNrjrfc59.9-34.0The [facility] HospitalComment on above:Performed By: #### CBC #### [facility] [address] [place] [address] Dr. Tom Anderson (RBC) [Mass/Vol]30.9 g/aGUpzivp04.9-35.2The [facility] HospitalComment on above:Performed By: #### CBC #### [facility] [address] [place] [address] Dr. Tom Anderson (RBC) [Entitic vol]95.5 fLCritically high80.0-94.0The [facility] HospitalComment on above:Performed By: #### CBC #### [facility] [address] [place] [address] Dr. Tom Baires #0.8 103/ulNormal0.3-0.8The [facility] HospitalComment on above:Performed By: #### CBC #### [facility] [address] [place] [address] Dr. Tom Phanocytes/100 WBC (Bld)9.5 %Normal1.7-12.0The [facility] Comment on above:Performed By: #### CBC #### [facility] [address] [place] [address] Dr. Tom Kevin #3.9 103/ulNormal1.4-6.5The [facility] HospitalComment on above:Performed By: #### CBC #### [facility] [address] [address] [address] Tom Riverautrophils/100 WBC (Bld)44.8 %Cytjgd03.0-75.0The [facility] on above:Performed By: #### CBC #### [facility] [address] [place] [address] Dr. Tom Irvinglet mean volume (Bld) [Entitic vol]10.2 fLNormal9.5-13.5The [facility] on above:Performed By: #### CBC #### [facility] [address] [place] [address] Dr. Tom DotsonPLT328 103/euMkivoh642-094Irx [facility] on above: Performed By: #### CBC #### [facility] [address] [place] [address] Dr. Tom DotsonRBC4.88 106/ulNormal4.70-6.10The [facility] on above:Performed By: #### CBC #### [facility] [address] [place] [address] Dr. Tom DotsonWBC8.7 103/ulNormal4.0-11.0The [facility] on above: Performed By: #### CBC #### [facility] [address] [place] [address] Dr. Tom RiverENTIAL MANUALon [id number] LYMPH #0.09 103/ulNormal The [facility] on above:Performed By: #### DIFF #### [facility] [address] [place] [address] Dr. Tom DotsonATYPICAL LYMPH %1 %NormalThe [facility] on above: Performed By: #### DIFF #### [facility] [address] [place] [address] Dr. Tom High #0.0 103/ulNormal0.0-0.3The [facility] on above:Performed By: #### DIFF #### [facility] [address] [address] [address] Tom High %0 %Normal0-5The [facility] HospitalComment on above:Performed By: #### DIFF #### [facility] [address] [place] [address] Dr. Tom Pimentel #0.00 103/ulNormal0.00-0.10The [facility] HospitalComment on above:Performed By: #### DIFF #### [facility] [address] [place] [address] Dr. Tom Pimentel %0.0 %Critically low0.2-2.0The [facility] HospitalComment on above:Performed By: #### DIFF #### [facility] [address] [place] [address] Dr. Tom Huang #NormalThe [facility] HospitalComment on above:Performed By: #### DIFF #### [facility] [address] [place] [address] Dr. Tom Huang %NormalThe [facility] HospitalComment on above:Performed By: #### DIFF #### [facility] [address] [place] [address] Dr. Tmo DotsonCORRECTED WBCNormal4.0-11.0The [facility] Hospitalment on above: Performed By: #### DIFF #### [facility] [address] [place] [address] Dr. Tom Delgado #1.22 103/ulCritically high0.00-0.70The [facility] Comment on above:Performed By: #### DIFF #### [facility] [address] [place] [address] Dr. Tom Delgado%14.0 %Critically high0.9-7.0The [facility] HospitalComment on above:Performed By: #### DIFF #### [facility] [address] [place] [address] Dr. Tom Davidson #1.91 103/ulNormal1.20-3.80The [facility] HospitalComment on above:Performed By: #### DIFF #### [facility] [address] [place] [address] Dr. Tom Davidson%22.0 %Dywqbs44.5-60.0The [facility] HospitalComment on above:Performed By: #### DIFF #### [facility] [address] [place] [address] Dr. Tom FullerOCYTE #NormalThe [facility] HospitalComment on above: Performed By: #### DIFF #### [facility] [address] [place] [address] Dr. Tom FullerOCYTE %NormalLancaster Municipal HospitalComment on above: Performed By: #### DIFF #### [facility] [address] [place] [address] Dr. Tom High#0.52 103/ulNormal0.30-0.80The [facility] HospitalComment on above:Performed By: #### DIFF #### [facility] [address] [place] [address] Dr. Tom High%6.0 %Normal1.7-12.0The [facility] HospitalComment on above: Performed By: #### DIFF #### [facility] [address] [place] [address] Dr. Tom Hdez #NormalLancaster Municipal HospitalCombronson south haven hospital on above:Performed By: #### DIFF #### [facility] [address] [place] [address] Dr. Tom Hdez %NormalThe [facility] HospitalComment on above:Performed By: #### DIFF #### [facility] [address] [place] [address] Dr. [address] D[address] Santos[address] [facility] HospitalComment on above:Performed By: #### DIFF #### [facility] [address] [place] [address] Dr. Tom Mckay #4.96 103/ulNormal1.40-6.50The [facility] HospitalComment on above:Performed By: #### DIFF #### [facility] [address] [place] [address] Dr. Tom Mckay %57.0 %Pvyefc29.0-75.0The [facility] HospitalComment on above: Performed By: #### DIFF #### [facility] [address] [address] [address] Tom DotsonWBC8.7 103/ulNormal4.0-11.0[facility] HospitalComment on above: Performed By: #### DIFF #### [facility] [address] [place] [address] Dr. Tom DotsonLIPID PROFILEon [id number]-HDL RATIO NORMSEE [facility] CenterComment on above:Result Comment: 3.3 - 4.4 LOW RISK 4.4 - 7.1 AVERAGE RISK 7.1 - 11.0 MODERATE RISK >11.0 HIGH RISKPerformed By: #### INFLUAB #### [facility] [address] [place] [address] Dr. Tom Changesterol [Mass/Vol]135 mg/dLNormal<=200The [facility] Comment on above:Performed By: #### INFLUAB #### [facility] [address] [place] [address] Dr. Tom Changesterol in HDL [Mass/Vol]51 mg/aJYvoyxa90-03EbgLancaster Municipal HospitalCombronson south [facility] hospital on above:Performed By: #### INFLUAB #### [facility] [address] [place] [address] Dr. Tom Changesterol in LDL [Mass/Vol]74.4 mg/dLGalion Community HospitalCombronson south haven hospital on above:Performed By: #### INFLUAB #### [facility] [address] [place] [address] Dr. Tom Gomez.total/Cholesterol in HDL [Mass ratio]2.6 {ratio} NormalThe St. [facility] HospitalComment on above:Performed By: #### INFLUAB #### [facility] [address] [place] [address] Dr. Tom De Luna NORMAL> or = 60 mg/dl - LOW CARDIOVASCULAR RISK <40 mg/dl - HIGH CARDIOVASCULAR RISKGalion Community HospitalComment on above:Performed By: #### INFLUAB #### [facility] [address] [place] [address] Dr. Tom DotsonLDL CALC NORMALSEE BELOWGalion Community HospitalComment on above:Result Comment: <100 mg/dl OPTIMAL 100 - 129 mg/dl NEAR OR ABOVE OPTIMAL 130 - 159 mg/dl BORDERLINE HIGH 160 - 189 mg/dl HIGH >190 mg/dl VERY HIGH Performed By: #### INFLUAB #### [facility] [address] [place] [address] Dr. Tom DotsonTriglyceride [Mass/Vol]48 mg/dLNormal<=150The [facility] Comment on above:Performed By: #### INFLUAB #### [facility] [address] [place] [address] Dr. Tom DotsonVLDL CALC9.6 mg/dLNoHenry County HospitalComment on above: Performed By: #### INFLUAB #### [facility] [address] [place] [address] Dr. Tom DotsonPROF 14(COMP METB)on [id number] [Mass/Vol]3.8 g/dLNormal 3.4-5.0The [facility] HospitalComment on above:Performed By: #### INFLUAB #### [facility] [address] [place] [address] Dr. Tom DotsonAlbumin/Globulin [Mass ratio]1.1 {ratio}NormalThe St. [facility] HospitalComment on above:Performed By: #### INFLUAB #### [facility] [address] [place] [address] Dr. Tom White [Catalytic activity/Vol]62 U/CYwfusa97-981Tsb St[facility] HospitalCombronson south haven hospital on above:Performed By: #### INFLUAB #### [facility] [address] [place] [address] Dr. Tom Faulkner [Catalytic activity/Vol]25 U/YJksnzz76-36Ile [facility] HospitalComment on above:Performed By: #### INFLUAB #### [facility] [address] [address] [address] Tom Mohanon gap [Moles/Vol]9.8 mmol/LNormalThe St[facility] HospitalComment on above:Performed By: #### INFLUAB #### [facility] [address] [address] [address] Tom DotsonAST [Catalytic activity/Vol]15 U/DAuozcx03-68Dde [facility] HospitalComment on above:Performed By: #### INFLUAB #### [facility] [address] [place] [address] Dr. Tom DotsonBilirubin [Mass/Vol]0.9 mg/dLNormal0.2-1.0The [facility] Comment on above:Performed By: #### INFLUAB #### [facility] [address] [place] [address] Dr. Tom DotsonCalcium [Mass/Vol]8.8 mg/dLNormal8.5-10.1The [facility] Comment on above:Performed By: #### INFLUAB #### [facility] [address] [place] [address] Dr. Tom DotsonChloride [Moles/Vol]102 mmol/BCskirf20-471Mej [facility] Comment on above:Performed By: #### INFLUAB #### [facility] [address] [place] [address] Dr. Tom DotsonCO2 [Moles/Vol]30.5 mmol/TBkobom04.0-32.0The [facility] Comment on above:Performed By: #### INFLUAB #### [facility] [address] [place] [address] Dr. Tom DotsonCreatinine [Mass/Vol]0.95 mg/dLNormal0.70-1.30The [facility] HospitalComment on above:Performed By: #### INFLUAB #### [facility] [address] [place] [address] Dr. Santos ChangEGFR-AF AFGHAN>60Normal>=60The [facility] HospitalComment on above:Performed By: #### INFLUAB #### [facility] [address] [address] [address] Tom MannGFR-NON AF AFGHAN>60Normal>=60The [facility] HospitalComment on above:Performed By: #### INFLUAB #### [facility] [address] [address] [address] Tom DotsonGlobulin (S) [Mass/Vol]3.4 g/dLNormOhioHealth Grady Memorial HospitalComment on above:Performed By: #### INFLUAB #### [facility] [address] [address] [address] Tom DotsonGlucose [Mass/Vol]85 mg/iQRvfjxt43-083Nzc [facility] Comment on above:Performed By: #### INFLUAB #### [facility] [address] [address] [address] Tom DotsonPotassium [Moles/Vol]4.3 mmol/LNormal3.5-5.1The [facility] Comment on above:Performed By: #### INFLUAB #### [facility] [address] [address] [address] Tom DotsonProtein [Mass/Vol]7.2 g/dLNormal6.4-8.2[facility] Comment on above:Performed By: #### INFLUAB #### [facility] [address] [address] [address] Tom DotsonSodium [Moles/Vol]138 mmol/RJgahdp168-437Wyz [facility] Comment on above:Performed By: #### INFLUAB #### [facility] [address] [address] [address] Tom DotsonUrea nitrogen [Mass/Vol]14.0 mg/dLNormal7.0-18.0The [facility] HospitalComment on above:Performed By: #### INFLUAB #### [facility] [address] [address] [address] Tom DotsonUrea nitrogen/Creatinine [Mass ratio]14.7 mg/mgNormalThTrinity Health System Twin City Medical CenterComment on above:Performed By: #### INFLUAB #### [facility] [address] [address] [address] Tom Arreaga 80-21-9808PZG2.010 uIU/mLNormal0.358-3.740L[facility] Municipal HospitalComment on above:Performed By: #### INFLUAB #### [facility] [address] [address] [address] Tom DotsonHepatic Panelon 22-79-5830Rcmmiop [Mass/Vol]3.2 g/dLNormal3.2-5.5 [facility] HospitalComment on above:Performed By: #### HEPATIC, LIPID, TSH3 wRFLX, [id number] #### [facility] [address] [place] [address] USAAlbumin/Globulin [Mass ratio]1.1 {ratio}[facility] Greene MemorialComment on above:Performed By: #### HEPATIC, LIPID, TSH3 wRFLX, [id number] #### [facility] [address] [place] [address] USAALP [Catalytic activity/Vol]38 U/WSdtrxx53-47ZfkcegbclOhiohealth Dublin Methodist HospitalComment on above:Performed By: #### HEPATIC, LIPID, TSH3 wRFLX, [id number] #### [facility] [address] [place] [address] USAALT [Catalytic activity/Vol]14 U/XPkyhgy22-53WcdqybneaOhiohealth Dublin Methodist HospitalComment on above:Performed By: #### HEPATIC, LIPID, TSH3 wRFLX, [id number] #### [facility] [address] [place], [place] [id number] USAAST [Catalytic activity/Vol]13 U/YXqiybf04-43PdwhqzmovOhiohealth Dublin Methodist HospitalComment on above:Performed By: #### HEPATIC, LIPID, TSH3 wRFLX, [id number] #### [facility] [address] [place] [address] USABilirubin [Mass/Vol]0.9 mg/dLNormal0.3-1.2FMercy Health St. Joseph Warren HospitalComment on above:Performed By: #### HEPATIC, LIPID, TSH3 wRFLX, [id number] #### [facility] [address] [place] [address] USABilirubin,Indirect0.8 mg/dLNoToledo HospitalComment on above:Performed By: #### HEPATIC, LIPID, TSH3 wRFLX, [id number] #### [facility] [address] [place] [address] USABilirubin.direct [Mass/Vol]0.1 mg/dLNormal0.0-0.4FMercy Health St. Joseph Warren HospitalComment on above:Performed By: #### HEPATIC, LIPID, TSH3 wRFLX, [id number] #### [facility] [address] [place] [address] USAGlobulin (S) [Mass/Vol]2.9 g/dLNoToledo HospitalComment on above:Performed By: #### HEPATIC, LIPID, TSH3 wRFLX, [id number] #### [facility] [address] [place] [address] USAProtein [Mass/Vol]6.1 g/dLNoal6.1-7.9[facility] HospitalComment on above:Performed By: #### HEPATIC, LIPID, TSH3 wRFLX, [id number] #### [facility] [address] [place] [address] USALipid Panelon 68-94-0834Csmrvfdicpm [Mass/Vol]158 mg/dL Nysqke410-127LryuaompbOhiohealth Dublin Methodist HospitalComment on above:Result Comment: Chol less than 200 mg/dl low risk Chol 201-239 mg/dl borderline risk Chol 240 mg/dl and greater high riskPerformed By: #### HEPATIC, LIPID, TSH3 wRFLX, [id number] #### [facility] [address] [place] [address] USACholesterol in HDL [Mass/Vol]61 mg/oSNhmshz49-63RgngmdznxOhiohealth Dublin Methodist HospitalComment on above:Result Comment: HDL CHOL ATP-III CLASSIFICATION Cardiovascular Risk HDL > or equal to 60 mg/dL LOW HDL < 40 mg/dL HIGHPerformed By: #### HEPATIC, LIPID, TSH3 wRFLX, [id number] #### [facility] [address] [place] [address] USACholesterol.total/Cholesterol in HDL [Mass ratio]2.6 {ratio}Normal<5.0[facility] HospitalComment on above:Performed By: #### HEPATIC, LIPID, TSH3 wRFLX, [id number] #### [facility] [address] [place] [address] USALDL Cholesterol,Mqbxereksc76 mg/dLNormal0-100[facility] HospitalComment on above:Result Comment: LDL ATP III CLASSIFICATION LDL less than 100 mg/dL Optimal LDL 100-129 mg/dL Near or above optimal LDL 130-159 mg/dL Borderline high LDL 160-189 mg/dL High LDL greater than 189 mg/dL Very highPerformed By: #### HEPATIC, LIPID, TSH3 wRFLX, [id number] #### [facility] [address] [id number] USATriglyceride w/Wkhdpy49 mg/fRCbduoz47-427SewovctghOhiohealth Dublin Methodist HospitalComment on above:Result Comment: TRIG ATP III CLASSIFICATION TRIG less than 150 mg/dL Normal TRIG 150-199 mg/dL Borderline high TRIG 200-500 mg/dL High TRIG greater than 500 mg/dL Very high Standard traceable to the Center for Disease Conrtrol and Prevention (CDC) test method.Performed By: #### HEPATIC, LIPID, TSH3 wRFLX, [id number] #### [facility] [address] [id number] USAVLDL ITYVWOWUGDH71 mg/dLNormalOhiohealth Dublin Methodist HospitalComment on above:Performed By: #### HEPATIC, LIPID, TSH3 wRFLX, [id number] #### [facility] [address] [place] [address] USAThyroid Stim Hormone w/Rflxon 42-90-0366Tqgatwr Stim Hormone w/Rflx1.92 u[iU]/mLNormal0.45-5.33[facility] Comment on above:Performed By: #### HEPATIC, LIPID, TSH3 wRFLX, [id number] #### [facility] [address] [id number] USAVitamin D 25 Hydroxy Totalon 68-47-1468Oettrfe D 25 Hydroxy Total11.9 ng/mLJqa18-665XlsfzfkbnOhiohealth Dublin Methodist HospitalComment on above:Result Comment: VITAMIN D STATUS 25(OH)VITAMIN D RANGE (ng/mL) Deficient <20 Insufficient 20 to <30 Sufficient 30 to 100 Reference: Darrion MF,Zane NC, Hanna AVELAR, et al. Evaluation,treatment, and prevention of vitamin D deficiency; an Endocrine Society clinical practice guideline. JCEM. 2010; 96(7):1911-30. PERFORMED BY: [facility] [place] [address] [id number] PATHOLOGIST DRY CELL SEALER MIGUELINA FLOOD M.D.Performed By: #### HEPATIC, LIPID, TSH3 wRFLX, [id number] #### [address] [address] [facility] Vital Signs Date TimeVital SignValuePerforming BfawvcqmhYelnhrcy93-73-6230 15:38-0400Body mass index (BMI) [Ratio]27.86 kg/m2Azul Leerani ACID PURIFICATION EQUIPMENT OPERATOR Work Phone: [facility] CenterDteyhtgzol33-68-0333 15:38-0400Body temperature 97.81 [degF]Azul Leerani ACID PURIFICATION EQUIPMENT OPERATOR Work Phone: [facility] CenterIlqhvysjdn89-11-7176 15:38-0400Body ighjpr37.8 kg Azul Leidymaxrani ACID PURIFICATION EQUIPMENT OPERATOR Work Phone: [facility] CenterUkmajlkjke45-46-9673 15:38-0400Diastolic blood hqzsysvf65 mm[Hg]Azul Leerani ACID PURIFICATION EQUIPMENT OPERATOR Work Phone: [address] [address]Wtydizkzms09-61-8892 15:38-0400Heart rate84 /min Azul Leidymaxrani ACID PURIFICATION EQUIPMENT OPERATOR Work Phone: [address] [address]Ctrdspwzmj04-99-9584 15:38-0400Respiratory rate24 /minAzul Damien ACID PURIFICATION EQUIPMENT OPERATOR Work Phone: [facility] CenterSjdnimdsib52-84-1275 15:38-1884XgZ5% (BldA) [Mass fraction]94 %Azul Quezada ACID PURIFICATION EQUIPMENT OPERATOR Work Phone: [facility] CenterHyygsmuspb76-56-2890 15:38-0400Systolic blood mm[Hg]Azul Bragaz ACID PURIFICATION EQUIPMENT OPERATOR Work Phone: [facility] CenterIjcdcyrzro95-46-9383 13:54-0400Body mass index (BMI) [Ratio]27.42 kg/m2Ivorysa Maria Luzz ACID PURIFICATION EQUIPMENT OPERATOR Work Phone: [facility] CenterKjfaatlwfp84-89-7509 13:54-0400Body phonjxcmzaz40 [degF]Azul Bragaz ACID PURIFICATION EQUIPMENT OPERATOR Work Phone: [facility] CenterWxuftpieqf55-73-7195 13:54-0400Body cmgamc34.26 kgAzul Bragaz ACID PURIFICATION EQUIPMENT OPERATOR Work Phone: [facility] CenterBmguczyihg01-23-7990 13:54-0400Diastolic blood mm[Hg]Azul Bragaz ACID PURIFICATION EQUIPMENT OPERATOR Work Phone: [facility] CenterKdzermckcc64-47-6955 13:54-0400Heart rate88 /min Azul Maria Luzz ACID PURIFICATION EQUIPMENT OPERATOR Work Phone: [facility] CenterTnzppbrvmr37-03-6530 13:54-0400Respiratory rate24 /minLisa Quezada ACID PURIFICATION EQUIPMENT OPERATOR Work Phone: [facility] CenterUkskofdigu76-36-3722 13:54-9454ExC7% (BldA) [Mass fraction]92 %Azul Bragaz ACID PURIFICATION EQUIPMENT OPERATOR Work Phone: [facility] CenterXxnqotpsjm84-18-3024 13:54-0400Systolic blood fwcdhism644 mm[Hg]Azul Bragaz ACID PURIFICATION EQUIPMENT OPERATOR Work Phone: [facility] CenterXsrunpjzrh36-59-7949 14:25-0500Body mass index (BMI) [Ratio]25.57 kg/m2Azul Leeholz ACID PURIFICATION EQUIPMENT OPERATOR Work Phone: [facility] CenterGdegnyiunu10-55-1833 14:25-0500Body temperature 99.39 [degF]Azul Maria Luzz ACID PURIFICATION EQUIPMENT OPERATOR Work Phone: [phone]02-25-2025 14:25-0500Body yvmmwx06.91 kgLisa Leidyhholz ACID PURIFICATION EQUIPMENT OPERATOR Work Phone: [phone]-[facility] CenterJnhgntvbeg00-32-8030 14:25-0500Diastolic blood fhtdrzji92 mm[Hg]Azul Aichholz ACID PURIFICATION EQUIPMENT OPERATOR Work Phone: [facility] CenterYfguvdgscl59-69-7390 14:25-0500Heart rate90 /min Azul Aichholz ACID PURIFICATION EQUIPMENT OPERATOR Work Phone: [phone] [place], [place] [address]Ztlsasctbx73-21-4760 14:25-0500Respiratory rate26 /minLisa Aichholz ACID PURIFICATION EQUIPMENT OPERATOR Work Phone: [phone] [place], [place] [address]Zqvefwyxgd20-22-3688 14:25-3027QhO1% (BldA) [Mass fraction]92 %Azul Aichholz ACID PURIFICATION EQUIPMENT OPERATOR Work Phone: [phone] [place], [place] [address]Ibfytzsjcb49-70-1632 14:25-0500Systolic blood yxefzxbo560 mm[Hg]Azul Aichholz ACID PURIFICATION EQUIPMENT OPERATOR Work Phone: [phone] [place], [place] [address]Ikqhfavmjh96-22-1181 13:20-0500Body .4 cmLisa Aichholz ACID PURIFICATION EQUIPMENT OPERATOR Work Phone: [facility] CenterCwdxeidtzd90-00-2386 13:20-0500Body mass index (BMI) [Ratio]25.17 kg/m2Lisa Aichholz ACID PURIFICATION EQUIPMENT OPERATOR Work Phone: [facility] CenterOcnvnrjpav31-12-0285 13:20-0500Body temperature 98.29 [degF]Azul Aichholz ACID PURIFICATION EQUIPMENT OPERATOR Work Phone: [phone] [place], [place] [address]Leemzktxvk22-89-9109 13:20-0500Body napjza14.55 kgLisa Aichholz ACID PURIFICATION EQUIPMENT OPERATOR Work Phone: [phone] [place], [place] [address]Djklnevwfs05-78-5150 13:20-0500Diastolic blood dppordkl82 mm[Hg]Azul Aichholz ACID PURIFICATION EQUIPMENT OPERATOR Work Phone: [place] [address]Nlqqguwhok16-09-1679 13:20-0500Heart rate77 /min Azul Aichholz ACID PURIFICATION EQUIPMENT OPERATOR Work Phone: [facility] CenterOvdrsozbrt68-82-3262 13:20-0500Respiratory rate24 /minAzul Leerani ACID PURIFICATION EQUIPMENT OPERATOR Work Phone: [facility] CenterTtjniwpksv05-04-3763 13:20-0957JeJ7% (BldA) [Mass fraction]97 %Azul Leerani ACID PURIFICATION EQUIPMENT OPERATOR Work Phone: [facility] CenterUcjbrhglsi17-85-0901 13:20-0500Systolic blood tiiqnhta495 mm[Hg]Azul Bragalisette ACID PURIFICATION EQUIPMENT OPERATOR Work Phone: [facility] CenterJvcrzsvqba65-08-6208 13:20-0400Body ribgwz665.4 cmIbeth Torres DO Work Phone: [phone])[facility] CenterJzmvwxaiuo79-74-6840 13:20-0400Body mass index (BMI) [Ratio]23.67 kg/m2Ibeth Torres DO Work Phone: [phone])[facility] CenterAnalugzbus29-39-9858 13:20-0400Body kuqcgd73.38 kgIbeth Torres DO Work Phone: [phone] CenterSzvissjuoj94-60-7563 13:20-0400Diastolic blood dwenzlcs11 mm[Hg]Ibeth Torres DO Work Phone: [phone])[facility]301[facility] CenterMlbxgkevid03-71-4680 13:20-0400Heart rate70 /min Ibeth Torres DO Work Phone: [phone])[facility] CenterCxrbtlyzgm38-94-6830 13:20-0400Respiratory rate12 /minIbeth Torres DO Work Phone: 1(587)[facility]iMad[facility] CenterYiauuyrkjm85-78-5829 13:20-0319IpS5% (BldA) [Mass fraction]98 %Ibeth Torres DO Work Phone: [phone])[facility]301[facility] CenterZzzhskelit40-32-0344 13:20-0400Systolic blood mm[Hg]Ibeth Torres DO Work Phone: [phone] CenterDygczjfhxm96-80-6525 14:17-0400Body qhlpai135.4 Elder Aichholz ACID PURIFICATION EQUIPMENT OPERATOR Work Phone: [facility] CenterUctfwhvddh95-14-1045 14:17-0400Body mass index (BMI) [Ratio]23.62 kg/m2Lisa Rosaholz ACID PURIFICATION EQUIPMENT OPERATOR Work Phone: [facility] CenterAmozkyrkuf49-69-5455 14:17-0400Body temperature 98.01 [degF]Azul Maria Luzz ACID PURIFICATION EQUIPMENT OPERATOR Work Phone: [facility] CenterKwoibxrwuo27-85-6580 14:17-0400Body .19 kgLisa Rosaholz ACID PURIFICATION EQUIPMENT OPERATOR Work Phone: [place] [address]Diptcdzpbs10-44-8174 14:17-0400Diastolic blood ahcmufxc35 mm[Hg]Azul Rosaholz ACID PURIFICATION EQUIPMENT OPERATOR Work Phone: [place] [address]Djxyhkqswt81-12-2168 14:17-0400Heart rate79 /min Azul Maria Luzz ACID PURIFICATION EQUIPMENT OPERATOR Work Phone: [place] [address]Myarxxnpyb52-05-1851 14:17-0400Respiratory rate22 /minLisa Maria Luzz ACID PURIFICATION EQUIPMENT OPERATOR Work Phone: [place] [address]Ehimopdmal07-38-3105 14:17-7094JxX6% (BldA) [Mass fraction]94 %Azul Maria Luzz ACID PURIFICATION EQUIPMENT OPERATOR Work Phone: [place] [address]Ztjhmkxriq71-30-9318 14:17-0400Systolic blood mm[Hg]Azul Rosanormaz ACID PURIFICATION EQUIPMENT OPERATOR Work Phone: [facility] CenterZpfmlqtoew87-46-7730 10:00-0500Body xacuty518.4 cmLisa Rosaholz ACID PURIFICATION EQUIPMENT OPERATOR Work Phone: [facility] CenterLqygrnnxgc86-73-5387 10:00-0500Body mass index (BMI) [Ratio]26.84 kg/m2Lisa Rosaholz ACID PURIFICATION EQUIPMENT OPERATOR Work Phone: [facility] CenterKaingxnicn40-59-5399 10:00-0500Body temperature 97.11 [degF]Azul Rosaholz ACID PURIFICATION EQUIPMENT OPERATOR Work Phone: [facility] CenterCasbbtjnua51-49-5575 10:00-0500Body pjclax61.26 kgAzul Quezada ACID PURIFICATION EQUIPMENT OPERATOR Work Phone: [facility] Nmxwyxfgby79-16-6924 10:00-0500Diastolic blood csmwzmhe85 mm[Hg]Azul Quezada ACID PURIFICATION EQUIPMENT OPERATOR Work Phone: [facility] Lpeplofoql17-54-2564 10:00-0500Heart rate83 /min Azul Quezada ACID PURIFICATION EQUIPMENT OPERATOR Work Phone: [facility] Zpwhktkgyh73-56-0739 10:00-0500Respiratory rate16 /minAzul Quezada ACID PURIFICATION EQUIPMENT OPERATOR Work Phone: [facility] Oxjzixyjli18-59-0383 10:00-9713TpB5% (BldA) [Mass fraction]94 %Azul Quezada ACID PURIFICATION EQUIPMENT OPERATOR Work Phone: [facility] Vwhspsqmdj94-01-6870 10:00-0500Systolic blood ticcstko459 mm[Hg]Azul Quezada ACID PURIFICATION EQUIPMENT OPERATOR Work Phone: [facility] Encounters Encounter DateEncounter TypeCare ProviderFacilityStart: 07-13-2025 End: 75-73-8270kmcuimkczdNQGAXPPQZ A JUMAAProMedNationwide Children's Hospital HospitalStart: 75-59-8696owbindooudREMA [facility] PPGStart: 07-07-2025 End: 91-52-4586hsoqgdkpupCLEQCKF PROVIDERFacility:METROHealthStart: 07-07-2025 End: 66-62-1158Hqvbpatixi and management of inpatientMARIAM ARMIN DIABProMedica Crescent HospitalStart: 05-17-2025 End: 67-38-1637Rculijzedfzf care manage srvc 7 day dischargeAzul Bragalisette ACID PURIFICATION EQUIPMENT OPERATOR Work Phone: [facility] CWM FMComment on above:Centrilobular emphysema (HCC) (Primary Dx); Tourette's ; Bilateral carotid artery stenosis; Rising PSA level; Mixed hyperlipidemia ; Depression with anxiety; Former smoker; Elevated glucose; Pain of right hipStart: 05-17-2025 End: 27-90-5317nsznmxraxmFLCB AICHHOLZNot AvailableStart: 05-17-2025 End: 58-51-5430Rnimla flowsheetLisa Aichholz ACID PURIFICATION EQUIPMENT OPERATOR Work Phone: [facility] FMStart: 05-17-2025 End: 77-61-4759Ctrxjy flowsheetLisa Aichholz ACID PURIFICATION EQUIPMENT OPERATOR Work Phone: [facility] FMStart: 02-15-2025 End: 93-68-4654Wgjhxl flowsheetLisa Aichholz ACID PURIFICATION EQUIPMENT OPERATOR Work Phone: [facility] FMStart: 02-15-2025 End: 51-19-4214Ncdsao flowsheetLisa Aichholz ACID PURIFICATION EQUIPMENT OPERATOR Work Phone: [facility] FMStart: 02-15-2025 End: 33-73-3080Xhsqxh outpatient visit 25 minutesLisa Aichholz ACID PURIFICATION EQUIPMENT OPERATOR Work Phone: [facility] FMComment on above:Depression with anxiety (Primary Dx); Cerebrovascular accident (CVA), unspecified mechanism (CMS/HCC); Overweight (BMI 25.0-29.9); Centrilobular emphysema (CMS/HCC); Insomnia, unspecifiedStart: 02-15-2025 End: 31-70-3565myptmodxdyIQWH AICHHOLZNot AvailableStart: 12-27-2024 End: 36-89-3703MzzfzeOvwy Aichholz ACID PURIFICATION EQUIPMENT OPERATOR Work Phone: [facility] FMComment on above:Mixed hyperlipidemia (CMS/HCC)Start: 11-16-2024 End: 05-65-8851Ohklgz flowsheetLisa Aichholz ACID PURIFICATION EQUIPMENT OPERATOR Work Phone: [facility] FMStart: 11-16-2024 End: 76-92-2132Qgylwe flowsheetLisa Aichholz ACID PURIFICATION EQUIPMENT OPERATOR Work Phone: [facility] FMStart: 11-16-2024 End: 18-70-5717Ywscumaaw Result EncounterLisa Aichholz ACID PURIFICATION EQUIPMENT OPERATOR Work Phone: [facility] External Department UnsolicitedStart: 11-16-2024 End: 65-21-9643Wrrhbfq encounter procedureLisa Leerani ACID PURIFICATION EQUIPMENT OPERATOR Work Phone: [facility] CWM FMComment on above:Encounter for subsequent annual wellness visit (AWV) in Medicare patient (Primary Dx); Centrilobular emphysema (CMS/HCC); Cerebrovascular accident (CVA), unspecified mechanism (CMS/HCC); Bilateral carotid artery stenosis; Overweight (BMI 25.0-29.9); Depression with anxiety; COPD with acute exacerbation ([facility]/HCC)Start: 11-16-2024 End: 75-93-9855cmjcdyetoqJQMI AICHHOLZNot AvailableStart: 10-22-2024 End: 76-37-3942Iowvfxmfn Result EncounterGeneric External Data ProviderNOMS External Department UnsolicitedStart: 10-22-2024 End: 42-25-4219Wsdoozbce Result EncounterGeneric External Data ProviderNOMS External Department UnsolicitedStart: 09-08-2024 End: 16-88-0163Tkmxyzqvg Result EncounterGeneric External Data ProviderNOMS External Department UnsolicitedStart: 09-08-2024 End: 71-15-9694Wmdcsnbyh Result EncounterGeneric External Data ProviderNOMS External Department UnsolicitedStart: 09-06-2024 End: 46-20-3510Cjwfmbgsx Result EncounterLisa Damien ACID PURIFICATION EQUIPMENT OPERATOR Work Phone: [facility] External Department UnsolicitedStart: 09-06-2024 End: 36-19-7669Euwfhpkmh Result EncounterLisa Damien ACID PURIFICATION EQUIPMENT OPERATOR Work Phone: [facility] External Department UnsolicitedStart: 08-16-2024 End: 46-48-5126Hngrrh flowsheetLisa Forbesmaxrani ACID PURIFICATION EQUIPMENT OPERATOR Work Phone: [facility] CWM FMStart: 08-16-2024 End: 17-75-4863Xeclzu flowsheetLisa Leeholz ACID PURIFICATION EQUIPMENT OPERATOR Work Phone: [facility] CWM FMStart: 08-16-2024 End: 04-23-2332Rapaac outpatient visit 25 minutesLisa Leerani ACID PURIFICATION EQUIPMENT OPERATOR Work Phone: [facility] CWM FMComment on above:Depression with anxiety (Primary Dx); Primary insomnia; Cerebrovascular accident (CVA), unspecified mechanism (CMS/HCC); Centrilobular emphysema (CMS/HCC); Bilateral carotid artery stenosis; Sessile colonic polyp; Smoker; Needs flu shot; Former smoker; Insomnia, unspecifiedStart: 08-16-2024 End: 36-83-7754hxgmwdiisrVTXD AICHHOLZNot AvailableStart: 07-06-2024 End: 10-24-7877Lljpfjwym Result EncounterGeneric External Data ProviderNOMS External Department UnsolicitedStart: 07-06-2024 End: 50-98-7162Vfcbbcmyw Result EncounterGeneric External Data ProviderNOMS External Department UnsolicitedStart: 06-02-2024 End: 73-02-8676AlxajlRczu Aichnormaz ACID PURIFICATION EQUIPMENT OPERATOR Work Phone: [facility] CWM FMComment on above:Depression with anxiety; Insomnia, unspecified; Mixed hyperlipidemia (CMS/HCC)Start: 06-01-2024 End: 59-70-3799Ycdotu OnlyLisa Leenormaz ACID PURIFICATION EQUIPMENT OPERATOR Work Phone: [facility] CWM FMComment on above:Rising PSA level (Primary Dx)Start: 05-31-2024 End: 93-10-2152Sgsfbhyfa Result EncounterLisa Leidyhholz ACID PURIFICATION EQUIPMENT OPERATOR Work Phone: [facility] External Department UnsolicitedStart: 05-31-2024 End: 39-84-5564Wllmqrnpx Result EncounterLisa Rosaholz ACID PURIFICATION EQUIPMENT OPERATOR Work Phone: [facility] External Department UnsolicitedStart: 05-31-2024 End: 14-62-4048Iswmpic encounter Swetha Torres DO Work Phone: noms BWM GENSComment on above:Screening for malignant neoplasm of colon (Primary Dx)Start: 05-31-2024 End: 90-57-7049uzozqsuvzfIFMC DUCKETTNot AvailableStart: 05-19-2024 End: 69-53-4004Xfqlsq flowsheetAzul Quezada ACID PURIFICATION EQUIPMENT OPERATOR Work Phone: [facility] CWM FMStart: 05-19-2024 End: 50-05-0055Wauyfk flowsheetAzul Quezada ACID PURIFICATION EQUIPMENT OPERATOR Work Phone: [facility] CWM FMStart: 05-19-2024 End: 14-20-5218Ioqwlm outpatient visit 25 minutesAzul Quezada ACID PURIFICATION EQUIPMENT OPERATOR Work Phone: [facility] CWM FMComment on above:Depression with anxiety (Primary Dx); Screening for prostate cancer; Smoker; Mixed hyperlipidemia (CMS/HCC); Sessile colonic polyp; Centrilobular emphysema (CMS/HCC); Bilateral carotid artery stenosis; Right hand painStart: 01-14-2024 End: 23-61-8492Wwgkgeneq encounterEmily Moore RNProMedica Physicians Neurology Start: 70-57-9625Ytsolwz encounter procedureLisa Quezada ACID PURIFICATION EQUIPMENT OPERATOR Work Phone: noms HealthcareStart: 10-30-2023 End: 13-84-9917Kfgxms outpatient visit 15 minutesAzul Quezada ACID PURIFICATION EQUIPMENT OPERATOR Work Phone: [facility] CWM FMComment on above:Influenza (Primary Dx); Marijuana abuse; Smoker; BMI 26.0-26.9,adult; Centrilobular emphysema (CMS/HCC)Start: 46-10-5088Gzpwkdoqf Result Encounter Generic External Data ProviderNOMS External Department UnsolicitedStart: 98-18-6293Exsuqpwnf Result EncounterGeneric External Data ProviderNOMS External Department UnsolicitedStart: 09-25-2022 End: 25-35-1203icvuasmfijEER 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Facility:O2Qvbvt: 04-16-2022 End: 00-71-6569jngjzjodzcNDFAHJ SAMSAFacility:A4Wlzhl: 04-10-2022 End: 79-09-1042jttganmnitIFMTQT SAMSAFacility:F8Eomiz: 03-06-2022 End: 91-97-8592cdwqwwkydsTXW AZUL DAMIENFacility:H1 Procedures DateProcedureProcedure DetailPerforming ClinicianStart: 50-49-6092SQ CHEST 2V Azul Quezada ACID PURIFICATION EQUIPMENT OPERATOR Work Phone: Start: 42-20-5101XWZ HEMOGLOBINGeneric External Data ProviderStart: 20-87-4535FF LUNG SCREENING LOW DOSEGeneric External Data ProviderStart: 53-20-6289CES TOTAL+% FREELisa Damien ACID PURIFICATION EQUIPMENT OPERATOR Work Phone: Start: 24-80-2546ZHB CBC WITH AUTO DIFFGeneric External Data ProviderStart: 04-59-1820SshejptcsxfYxrqfng ProviderStart: 87-21-4080UFD UA (CLEAN/CATCH) MICROSCOPIC IF INDICATELisa Damien ACID PURIFICATION EQUIPMENT OPERATOR Work Phone: Start: 09-59-8144IOMLH CULTURE 2Generic External Data ProviderStart: 90-35-3389UAFUI CULTURE 1Generic External Data ProviderStart: 81-00-7865JGC screeningNATHAN CHRISTOPHERComment on above:Performed By: #### [facility] #### [facility] [address] [place] [address] Dr. Tom DotsonStart: 78-64-3360Zrqhk depression screening assessmentEmvenkatesh Moore RN Plan of Treatment DateCare ActivityDetailAuthorStart: 63-35-5869Hlbbyrgun for malignant neoplasm of colonNOMS HealthcareStart: 11-21-2025 End: 85-27-8291Yojjsxl encounter xrzbdexel99/02/2026 4:30 PM EST Office Visit [facility] [address] [place] [address] Azul Quezada, ORACIO [address] [place] [phone] KAELYN FLOREZ FMStart: 02-25-2026Medicare Annual Wellness (AWV) Medicare Annual Wellness (AWV)[facility] HealthcareStart: 07-18-2025 End: 48-69-4428Mtbsdbm encounter ekbuhosfj64/27/2025 1:20 PM EDT Office Visit [facility] [address] [place] [phone] Azul Quezada, ACID PURIFICATION EQUIPMENT OPERATOR [address] [place] [phone] [facility] FMStart: 95-36-4770Vdvvbpioo vaccinationInfluenza Vaccine (#1)NOMS HealthcareStart: 05-17-2025 End: 70-49-4391Fztsnfz encounter ogibrqnrm22/26/2025 3:20 PM EDT Office Visit [facility] [address] [place] [phone] Azul Quezada, ACID PURIFICATION EQUIPMENT OPERATOR [address] [place] [address] Tourette's (Primary Dx); Centrilobular emphysema (HCC); Bilateral carotid artery stenosis; Rising PSA level; Mixed hyperlipidemia ; Depression with anxiety; Former smoker; Elevated glucoseNONORTHEASTERN HEALTH SYSTEM – [facility] FMComment on above:Tourette's (Primary Dx); Centrilobular emphysema (HCC); Bilateral carotid artery stenosis; Rising PSA level; Mixed hyperlipidemia ; Depression with anxiety; Former smoker; Elevated glucoseStart: 05-17-2025 End: 81-32-6102Dlzondhhuccag metabolic 2000 panel - Serum or PlasmaComprehensive metabolic panel Lab Routine Mixed hyperlipidemia Elevated glucose Expected: 05/17/2025 (Approximate), Expires: 05/17/2026NOMS HealthcareComment on above: Expected: 05/17/2025 (Approximate), Expires: 05/17/2026Start: 05-17-2025 End: 58-32-0037Dffrccgiis A1c/Hemoglobin.total in BloodHemoglobin A1c Lab Routine Elevated glucose Expected: 05/17/2025 (Approximate), Expires: 05/17/2026 N[facility] HealthcareComment on above:Expected: 05/17/2025 (Approximate), Expires: 05/17/2026Start: 05-17-2025 End: 41-11-7096Ceups 1996 panel - Serum or PlasmaLipid panel Lab Routine Mixed hyperlipidemia Expected: 05/17/2025 (Approximate), Expires: 05/17/2026[facility] HealthcareComment on above:Expected: 05/17/2025 (Approximate), Expires: 05/17/2026Start: 05-17-2025 End: 80-03-2019JKG, total and freePSA, total and free Lab Routine Rising PSA level Expected: 05/17/2025 (Approximate), Expires: 05/17/2026[facility] Work Phone: Comment on above:Expected: 05/17/2025 (Approximate), Expires: 05/17/2026Start: 05-17-2025 End: 85-62-1086Bfuwxmiqsju [Units/volume] in Serum or PlasmaTSH Lab Routine Depression with anxiety Expected: 05/17/2025 (Approximate), Expires: 05/17/2026 [facility] HealthcareComment on above:Expected: 05/17/2025 (Approximate), Expires: 05/17/2026Start: 05-17-2025 End: 80-00-9433Wwgkwrevfu complete panel - UrineUrinalysis with reflex microscopic (clean catch) Lab Routine Former smoker Expected: 05/17/2025 (Vilma roximate), Expires: 05/17/2026[facility] HealthcareComment on above:Expected: 05/17/2025 (Approximate), Expires: 05/17/2026Start: 05-17-2025 End: 13-33-1724ZI Hip - right 3 ViewsXR hip right 2 or 3 views Imaging Routine Pain of right hip Expected: 05/17/2025, Expires: 05/17/2026[facility] Comment on above:Expected: 05/17/2025, Expires: 05/17/2026Start: 02-15-2025 End: 97-59-9575Lcduzdr encounter procedureNOMS CWM FMComment on above: Cerebrovascular accident (CVA), unspecified mechanism (CMS/HCC) (Primary Dx); Overweight (BMI 25.0-29.9); Depression with anxiety; Centrilobular emphysema (CMS/HCC)Start: 11-16-2024 End: 17-86-4630Acayewe encounter procedureNOMS CWM FMComment on above: Cerebrovascular accident (CVA), unspecified mechanism (CMS/HCC) (Primary Dx); Centrilobular emphysema (CMS/HCC); Bilateral carotid artery stenosis; Overweight (BMI 25.0-29.9); Depression with anxiety; Encounter for subsequent annual wellness visit (AWV) in Medicare patientStart: 11-16-2024 End: 58-44-4238QP Chest 2 ViewsXR chest 2 views Imaging Routine COPD with acute exacerbation (CMS/HCC) Expected: 11/16/2024 (Approximate), Expires: 11/16/2025 [facility] Work Phone: Comment on above:Expected: 11/16/2024 (Approximate), Expires: 11/16/2025Start: 02-22-2025Medicare Annual Wellness (AWV)Medicare Annual Wellness (AWV)[facility] HealthcareStart: 08-16-2024 End: 83-34-8869Lxaajig encounter procedureNOMS CWM FMComment on above:Primary insomnia (Primary Dx); Cerebrovascular accident (CVA), unspecified mechanism (CMS/HCC); Centrilobular emphysema (CMS/HCC); Bilateral carotid artery stenosis; Sessile colonic polyp; Smoker; Depression with anxietyStart: 00-32-3790Veyafjxms for malignant neoplasm of colonNOUT HealthcareStart: 06-01-2024 End: 98-10-7524RTN, total and freePSA, total and free Lab Routine Rising PSA level Expected: 06/01/2024 (Approximate), Expires: 06/01/2025[facility] Work Phone: Comment on above:Expected: 06/01/2024 (Approximate), Expires: 06/01/2025Start: 10-12-6833Kjcctjdfu vaccinationCASTLEVIEW HOSPITAL HealthcareStart: 05-19-2024 End: 96-79-5702AVR W Auto Differential panel - BloodCBC and differential Lab Routine Smoker Expected: 05/19/2024 (Approximate), Expires: 05/19/2025[facility] Work Phone: Comment on above:Expected: 05/19/2024 (Approximate), Expires: 05/19/2025Start: 05-19-2024 End: 66-77-1814Ckkzhybnssufc metabolic 2000 panel - Serum or PlasmaComprehensive metabolic panel Lab Routine Depression with anxiety Mixed hyperlipidemia (CMS/HCC) Expected: 05/19/2024 (Approximate), Expires: 05/19/2025[facility] Comment on above:Expected: 05/19/2024 (Approximate), Expires: 05/19/2025Start: 05-19-2024 End: 90-35-1556Apcqo 1996 panel - Serum or PlasmaLipid panel Lab Routine Mixed hyperlipidemia (CMS/HCC) Expected: 05/19/2024 (Approximate), Expires:05/19/2025 [facility] HealthcareComment on above:Expected: 05/19/2024 (Approximate), Expires: 05/19/2025Start: 05-19-2024 End: 13-52-8665Sqlmqpz encounter kczhybkds94/28/2024 2:00 PM EDT Office Visit [facility] [address] [place] [address] Azul Quezada, ORACIO [address] [facility] [place] [address] Screening for prostate cancer (Primary Dx); Smoker; Depression with anxiety; Mixed hyperlipidemia (CMS/HCC)[facility] FMComment on above:Screening for prostate cancer (Primary Dx); Smoker; Depression with anxiety; Mixed hyperlipidemia (CMS/HCC)Start: 05-19-2024 End: 11-44-3405Jskuqnwd specific Ag [Mass/volume] in Serum or PlasmaPSA Lab Routine Screening for prostate cancer Expected: 05/19/2024 (Approximate), Expires: 05/19/2025[facility] HealthcareComment on above:Expected: 05/19/2024 (Approximate), Expires: 05/19/2025Start: 05-19-2024 End: 64-23-3220Gzbtqktbrn complete panel - UrineUrinalysis with reflex microscopic (clean catch) Lab Routine Smoker Expected: 05/19/2024 (Approximate), Expires: 05/19/2025[facility] HealthcareComment on above:Expected: 05/19/2024 (Approximate), Expires: 05/19/2025Start: 76-89-5550Zgruhgvfy vaccination Influenza Vaccine (#1)[facility] HealthcareComment on above:Postponed from 2023 (Patient Refused)Start: 01-14-2024 End: 38-94-1266YK Carotid arteries - bilateralVas carotid duplex bilateral Vascular Ultrasound Routine Internal carotid artery stenosis, right Expected: 01/14/2024, Expires: 01/13/2025[facility] Work Phone: Comment on above:Expected: 01/14/2024, Expires: 01/13/2025Start: 11-13-2023 End: 55-29-9279Osfemkx encounter rucasbdie49/22/2024 9:40 AM EST Office Visit [facility] [address] [place] [address] Azul Quezada, ACID PURIFICATION EQUIPMENT OPERATOR [address] [place] [address] [facility] FMStart: 10-30-2023 End: 91-68-5854Isrfgqv encounter qnfieksfs60/08/2024 10:00 AM EST Office Visit [facility] [address] [place] [address] Azul Quezada, ACID PURIFICATION EQUIPMENT OPERATOR [address] [place] [address] [facility] FMStart: 32-17-6912Qerbvbhia vaccinationInfluenza Vaccine (#1)[facility] HealthcareStart: 33-55-1554Hqhne BMI ScreeningAdult BMI ScreeningProCleveland Clinic Children'S Hospital For Rehabilitationca Health SystemStart: 76-28-4257Trimbbi ScreeningTobacco ScreeningProCleveland Clinic Children'S Hospital For Rehabilitationca Health SystemStart: 83-96-9008Hjsakbtesy ScreeningDepression ScreeningProCleveland Clinic Children'S Hospital For Rehabilitationca [facility] SystemStart: 63-15-0996Yamsaxhjriezqz of varicella zoster vaccineZoster (Shingles) Vaccine (1 of 2)[facility] SystemStart: 33-68-0661RFlF,Tdap and Td Vaccines (1 - Tdap)DTaP,Tdap and Td Vaccines (1 - Tdap)[facility] SystemStart: 80-01-5998Caitpwvluqgl Vaccine: 65+ Years (1 of 2 - PCV)Pneumococcal Vaccine: 65+ Years (1 of 2 - PCV)[facility] HealthcareStart: 1960Medicare Annual Wellness (AWV)Medicare Annual Wellness (AWV)[facility] HealthcareStart: 80-70-4881Wfdluiltx for malignant neoplasm of colonNOUT HealthcareStart: 84-48-4286Yqfdzsndu for malignant neoplasm of lungLung Cancer Screening Shared Decision MakingCASTLEVIEW HOSPITAL HealthcareBLOOD CULTURE 1BLOOD CULTURE 1 Lab Routine 10/21/2023 12:27 PM ESTCASTLEVIEW HOSPITAL HealthcareBLOOD CULTURE 2BLOOD CULTURE 2 Lab Routine 10/21/2023 12:30 PM ESTMad[facility] Center Immunizations Immunization DateImmunizationNotesCare IxmcyrjyEgchguak09-43-6230ZEKPQBJ - Respiratory syncytial virus (RSV), vaccine, bivalent, protein subunit RSV prefusion F, diluent reconstituted, 0.5 mL, PFLisa Aichholz ACID PURIFICATION EQUIPMENT OPERATOR Work Phone: [facility] CenterGcvlhajlcm50-02-5768Oydjqfzpa, injectable, Madin Marjan Canine Kidney, preservative free, quadrivalentLisa Aichholz ACID PURIFICATION EQUIPMENT OPERATOR Work Phone: [facility] CenterHatemdgcwk81-19-1307xqgokqutv virus vaccine, unspecified formulationLisa Aichholz ACID PURIFICATION EQUIPMENT OPERATOR Work Phone: [facility] CenterHpoxslknnz39-29-3326vnquegfsm, live, intranasal, quadrivalentLisa Aichholz ACID PURIFICATION EQUIPMENT OPERATOR Work Phone: [facility] CenterXhfqczyywl99-40-8834bdndawzua virus vaccine, unspecified formulationGeneric ProviderMadison Medical CenterPgunkqvpgy64-23-2899tjrlqupsn, high dose seasonal, preservative-freeLisa Aichholz ACID PURIFICATION EQUIPMENT OPERATOR Work Phone: [facility] CenterRzsrvfgvsg75-27-6257retxtvjww, injectable, quadrivalent, preservative freeLisa Aichholz ACID PURIFICATION EQUIPMENT OPERATOR Work Phone: [facility] Fagduaziqh22-29-5348fvjyoczwg virus vaccine, unspecified formulationEmLivermore Sanitarium System Payers DatePayer CategoryPayerPolicy ID2019MedicaidMEDICAID [facility] MED[facility] [id number] 2019-Present [phone] [address] [place] [address] [id number] 1994Medicare [id number] [id number] 1960 [id number] 2.16.840.1.815146.3.57[id number] 2.16.840.1.747617.3.57[id number] 2.16.840.1.769591.3.57[id number] 2.16.840.1.404663.3.57[id number] 2.16.840.1.284969.3.57[id number] 2.16.840.1.774407.3.57[id number] 2.16.840.1.380307.3.57[id number] 2.16.840.1.039084.3.57[id number] 2.16.840.1.455981.3.57[id number] 2.16.840.1.638113.3.57[id number] 2.16.840.1.601344.3.57[id number] 2.16.840.1.519978.3.57[id number] 2.16.840.1.276473.3.57[id number] 2.16.840.1.689947.3.57[id number] 2.16.840.1.614975.3.579.2.1286 [id number] 1960Unknown [id number] Social History DateTypeDetailFacilityTobacco smoking status NHISTobacco smoking consumption unknownNOMS HealthcareStart: 39-40-3343Scx Assigned At BirthNot on fileNOUT HealthcareStart: 10-30-2023 End: 58-18-1481Xoyygw identityNot on fileCASTLEVIEW HOSPITAL HealthcareStart: 38-19-7906Foobtfl smoking status NHISEx-smokerNOMS HealthcareStart: 03-22-1984 End: 15-38-4159Bqrpgxy of tobacco useCurrent smokerNOMS HealthcareStart: 03-22-1984 End: 90-70-7904Vfuaioo of tobacco useCigarette SmokerNOMS HealthcareStart: 10-30-2023 End: 04-22-9888Wgazvzbuyu smoked current (pack per day) - Atwmdvrs8YWCK HealthcareStart: 02-08-2021 End: 99-28-9255Vdmwofx use and exposureSmokeless tobacco non-userNOMS Healthcare Start: 10-30-2023 End: 11-72-7339Cjalbvq intakeCurrent drinker of alcohol (finding)[facility] Start: 54-11-4824Gwmajuy Commentcoffee more than 4 cups per dayNOMS Healthcare Within the last year, have you been afraid of your partner or ex-partner?NoNOMS HealthcareDo you belong to any clubs or organizations such as zoroastrian groups, unions, fraternal or athletic groups, or school groups?YesNOMS HealthcareAre you now , , , , never or living with a partner?MarriedNOMS HealthcareHow often to you have a drink containing alcohol? NeverNOSaint Joseph Hospital WestStart: 46-75-5504Hik many standard drinks containing alcohol do you have on a typical day?Patient does not drinkNOMS HealthcareDo you feel stress - tense, restless, nervous, or anxious, or unable to sleep at night because yourmind is troubled all the time - these days [OSQ]Only a littleNOMS Healthcare(I/We) worried whether (my/our) food would run out before (I/we) got money to buy more.Never trueNOSaint Joseph Hospital WestStart: 70-67-9114Obhvkyh smoking status NHISSmokes tobacco dailyKettering Health Main Campus SystemStart: 11-60-3800Xagdecxcm beverage intakeEx-drinker (finding)[facility] SystemAre you now , , , , never or living with a partner?Living with partnerKettering Health Main [facility] SystemHow often to you have a drink containing alcohol? Monthly or lessProMarshall Medical Center North Health SystemDo you feel stress - tense, restless, nervous, or anxious, or unable to sleep at night because yourmind is troubled all the time - these days [OSQ]Not at allECU Health Duplin Hospitaltart: [id number] Commentquit 4 days ago as of 12/21/20[facility] Medical Equipment Procedure CodeEquipment CodeEquipment Original TextEquipment IdentifierDatesStnt [facility] 8/6mm 6fr 30mm 135cm - [id number]: 06-12-2020 Goals DatePatient GoalDesired Activity/StatePersonal health goalComment on above: Evaluation of progress towards goal: Return home with self care and family support. Functional Status Yeox[id number] Health Questionnaire 2 item (PHQ- 2) [Reported][facility] Clinical Notes 10-30-2023 to 05-17-2025 Note Date & [id number] History of Present illness Narrative* Azul Quezada NP - 05/17/2025 5:24 PM EDTAssociated Problem(s): Pain of right hip Check xray and go from there * RACHEL ACEVEDO - 05/17/2025 3:20 PM EDT Request for critical access hospital pulmonology 02 at 2L aat Pt uses [...] tightness Pt goes thru [facility] [place] * Azul uQezada NP - 05/17/2025 3:20 PM EDT Images from the original note were not included. Sam Carrasco is a 64 y.o. male presents with chief complaint of Hospital Follow-up HPI: TCM fu: COPD exacerbation Admitted to [facility], sent home atb, steroids, oxygen Is [...] (HCC) COVID-19 07/2019 CVA (cerebral vascular accident) ([facility]) Degenerative cervical disc Depression with anxiety Insomnia [...] Polyp Vocal area and Vocal Cord cyst [place] EXCISION THYROGLOSSAL DUCT CYST/SINUS Procedure:DL, e/o thyroglossal [...] for this Centrilobular emphysema (HCC) Was established terminologist with dr white, now needs a new chief sales officer and needs a referral to [facility] Chest [...] EDTAssociated Problem(s): Centrilobular emphysema (HCC) Was established half-way with dr white, now needs a new chief sales officer and needs a referral to [facility] Chest CT 09/14 new lung masses Current meds: albuterol, Ensifentrine, symbicort, spiriva respimat * Azul Quezada NP - 05/17/2025 6:52 AM EDTAssociated Problem(s): Terry's No current med use for this documented in this encounterMadison Medical CenterSlxjyuidvu75-13-2033 Instructions* Patient Instructions* Azul Quezada NP - 05/17/2025 3:20 PM EDT Refer to dr jansen lung doctor Thuy Rai xray hip documented in this encounterMadison Medical [id number] History of Present illness Narrative* RACHEL ACEVEDO - 02/15/2025 1:40 PM EDT Symbicort and spiriva- pt has been unable to pay therefore he has not had either. Pt plans to quit job by next month Pt is very SOB Pt states his 02 has been averaging 88-94 * Azul Quezada NP - 02/15/2025 1:40 PM EDT Images from the original note [...] as he feels this could result in terminologist damage to his lungs SUBJECTIVE: MEDICATIONS: Current [...] COVID-19 07/2019 CVA (cerebral vascular accident) ([facility]) Degenerative cervical disc Depression with anxiety Insomnia Marijuana abuse 10/30/2023 Multiple pulmonary nodules Neck mass 2014 Osteoarthritis Papule of skin 11/13/2023 Pigmented skin lesion of uncertain nature Rheumatic fever Stroke (CMS/HCC) 07/2020 Testicle lump Tourette's ([facility]/HCC) Vertebral artery occlusion Vocal cord polyp Past Surgical History: Procedure Laterality Date ADENOIDECTOMY CAROTID STENT Right 09/2019 stent, RT carotid CT GUIDED TRANSVAGINAL TRANSRECTAL FLUID DRAIN 06/09/2020 CT GUIDED TRANSVAGINAL TRANSRECTAL FLUID DRAIN 06/09/2020 OTHER SURGICAL HISTORY Removal of Polyp Vocal area and Vocal Cord cyst [place] EXCISION THYROGLOSSAL DUCT CYST/SINUS Procedure:DL, e/o thyroglossal [...] Relevant Medications traZODone (Desyrel) 50 MG tablet * Azul Quezada NP - 02/15/2025 7:20 AM EDTAssociated Problem(s): Centrilobular emphysema ([facility]/HCC) Continue with pulmonology Continue with inhaler albuterol, we can try to help with PA Chest CT 09/14 new lung masses * Azul Quezada NP - 02/15/2025 7:19 AM EDTAssociated Problem(s): Depression with anxiety Current med: fluoxetine * Azul Quezada NP - 02/15/2025 7:18 AM EDTAssociated Problem(s): CVA (cerebral vascular accident) ([facility]/HCC) No focal weakness Continues as directed by neurology documented in this encounterMadison Medical [id number] Instructions* Patient Instructions* Azul Quezada NP - 02/15/2025 1:40 PM EDT Return the patient assistance medication forms and we can try to help you get the medications (inhaler) documented in this encounterMadison Medical [id number] History of Present illness Narrative* Azul Quezada NP - 11/16/2024 3:03 PM ESTAssociated Problem(s): COPD with acute exacerbation ([facility]) Add atb, steroids, check cxr Pt needs to get in touch with dr white If resp condition worsens go to the ER * RACHEL ACEVEDO - 11/16/2024 2:00 PM EST Pt has been sick with bronchitis since last week. Pt is very sob, wheezing, tightness in the chest,fatigue, pt has been using his nebulizer every [...] using nebulizer Feels very weak and fatigue * Azul Quezada NP - 11/16/2024 2:00 PM EST Images from the original note were not [...] Any Hospitalizations in the last year:no Specialist: christopher HCPOA/Living Will:no Concerns: breathing Pt has been sick with bronchitis since last week. Pt is very sob, wheezing, tightness in the chest,fatigue, pt has been using his nebulizer every [...] stenosis Calcified lymph nodes Centrilobular emphysema ([facility]/HCC) COVID-19 07/2019 CVA (cerebral vascular accident) ([facility]) Degenerative cervical disc Depression with anxiety Insomnia Marijuana abuse 10/30/2023 Multiple pulmonary nodules Neck mass 2013 Osteoarthritis Papule of skin 11/13/2023 Pigmented skin lesion of uncertain nature Rheumatic fever Stroke ([facility]) 07/2020 Testicle lump Tourette's ([facility]) Vertebral artery occlusion Vocal cord polyp Past Surgical History: Procedure Laterality Date ADENOIDECTOMY CAROTID STENT Right 09/2019 stent, RT carotid CT GUIDED TRANSVAGINAL TRANSRECTAL FLUID DRAIN 06/09/2020 CT GUIDED TRANSVAGINAL TRANSRECTAL FLUID DRAIN 06/09/2020 OTHER SURGICAL HISTORY Removal of Polyp Vocal area and Vocal Cord cyst [place] EXCISION THYROGLOSSAL DUCT CYST/SINUS Procedure:DL, e/o thyroglossal [...] He is ill-appearing (mild-mod). He is not toxic- appearing or diaphoretic. HENT: Head: Normocephalic. Right Ear: [...] up yearly and prn Overweight (BMI 25.0-29.9) * Azul Quezada NP - 11/16/2024 7:09 AM ESTAssociated Problem(s): Encounter for subsequent annual wellness visit (AWV) in Medicare patient Reviewed Ht/Wt/BMI Recommend eye exam yearly Recommend dental exams twice a year Balance work/leisure activities Exercises is recommended most days of the week (appropriate as chronic conditions allow) Follow up yearly and prn * Azul Quezada NP - 11/16/2024 7:08 AM ESTAssociated Problem(s): Depression with anxiety Current med: fluoxetine JESSICA 7= PHQ 9= * Azul Quezada NP - 11/16/2024 7:06 AM ESTAssociated Problem(s): Bilateral carotid artery stenosis Cont with vascular Asa, statin therapy * Azul Quezada NP - 11/16/2024 7:05 AM ESTAssociated Problem(s): Centrilobular emphysema (CMS/HCC) Continue with pulmonology Continue with inhaler * Azul Quezada NP - 11/16/2024 7:05 AM ESTAssociated Problem(s): CVA (cerebral vascular accident) (CMS/HCC) No focal weakness Continues as directed by neurology documented in this [facility]02-25-2025 Instructions* Patient Instructions* Azul Quezada NP - 11/16/2024 2:00 PM EST Get back into see dr white No dose changes in your meds Chest xray documented in this [facility]11-25-2024 History of Present illness Narrative* Azul Quezada NP - 08/16/2024 1:38 PM ESTAssociated Problem(s): Former smoker Quit smoking, and no smoking THC!! Great job * RACHEL ACEVEDO - 08/16/2024 1:20 PM EST Pt is more fatigue and tired. Pt is working 3 days a week * Azul Quezada NP - 08/16/2024 1:20 PM EST Images from the original note were not included. Sam Carrasco is a 64 y.o. male presents with chief complaint of No chief complaint on file. HPI: Here for recheck: Depression/anxiety: SSRI, trazodone, no SI/HI/hallucinations. No side effects from meds COPD: +dyspnea, +cough, Wheeze at times, continues to smoke THC, follows with sam, needs flu shot Does have fatigue, SUBJECTIVE: [...] stenosis Calcified lymph nodes Centrilobular emphysema ([facility]) COVID-19 07/2019 CVA (cerebral vascular accident) ([facility]) Degenerative cervical disc Depression with anxiety Insomnia Marijuana abuse 10/30/2023 Multiple pulmonary nodules Neck mass 2013 Osteoarthritis Papule of skin 11/13/2023 Pigmented skin lesion of uncertain nature Rheumatic fever Stroke ([facility]) 07/2020 Testicle lump Tourette's ([facility]) Vertebral artery occlusion Vocal cord polyp Past Surgical History: Procedure Laterality Date ADENOIDECTOMY CAROTID STENT Right 09/2019 stent, RT carotid CT GUIDED TRANSVAGINAL TRANSRECTAL FLUID DRAIN 06/09/2020 CT GUIDED TRANSVAGINAL TRANSRECTAL FLUID DRAIN 06/09/2020 OTHER SURGICAL HISTORY Removal of Polyp Vocal area and Vocal Cord cyst [place] EXCISION THYROGLOSSAL DUCT CYST/SINUS Procedure:DL, e/o thyroglossal [...] of the risks of continued smoking: stroke, MO, all forms of cancer, lung disease, and . Options for quitting smoking include: cold turkey, hypnosis, acupuncture, nicotine replacement meds(gum, lozenges, and patches), Buproprion, and Varenicline. At this time pt is encouraged to evaluate their goals for wanting to quit smoking, and reach out toprovider when ready to start this process Insomnia [...] Relevant Orders Flu vaccine, MDCK, quadrivalent, PF (ANH488) (Flucelvax single dose syringe) (Completed) Former smoker Quit smoking, and no smoking THC!! Great job Other Visit Diagnoses Insomnia, unspecified Relevant Medications traZODone (Desyrel) 50 MG tablet * Azul Quezada NP - 08/16/2024 7:27 AM ESTAssociated Problem(s): Sessile colonic polyp Has been referred to Gen Surgery for colonoscopy * Azul Quezada NP - 08/16/2024 7:25 AM ESTAssociated Problem(s): Depression with anxiety Continue with fluoxetine at current dose Fu in 3 months * Azul Quezada NP - 08/16/2024 7:25 AM ESTAssociated Problem(s): Smoker (Resolved 08/16/2024) The patient has been advised of the risks of continued smoking: stroke, MO, all forms of cancer, lung disease, and . Options for quitting smoking include: cold turkey, hypnosis, acupuncture, nicotine replacement meds(gum, lozenges, and patches), Buproprion, and Varenicline. At this time pt is encouraged to evaluate their goals for wanting to quit smoking, and reach out toprovider when ready to start this process * Azul Quezada NP - 08/16/2024 7:25 AM ESTAssociated Problem(s): Bilateral carotid artery stenosis Cont with vascular * Azul Quezada NP - 08/16/2024 7:25 AM ESTAssociated Problem(s): Centrilobular emphysema (CMS/HCC) Continue with pulmonology Continue with inhaler * Azul Quezada NP - 08/16/2024 7:24 AM ESTAssociated Problem(s): CVA (cerebral vascular accident) (CMS/HCC) No focal weakness Continues as directed by neurology * Azul Quezada NP - 08/16/2024 7:22 AM ESTAssociated Problem(s): Insomnia Continue with trazodone documented in this encounterMadison Medical [id number] Instructions* Patient Instructions* Azul Quezada NP - 08/16/2024 1:20 PM EST Great job at quitting smoking Keep follow up with dr white as directed Follow up with Vascular doctor in [place] as well as directed documented in this [facility]09-09-2024 History of Present illness Narrative* Ibeth Torres DO - 05/31/2024 1:30 PM EDT General Surgery H&P Sam Carrasco 1960 Sam Carrasco is a 64 y.o. male presents with chief complaint of Colonoscopy (Pt presents today fora colonoscopy consult. He states that he did [...] Stroke (CMS/HCC) 07/2020 Testicle lump Tourette's ([facility]) Vertebral artery occlusion Vocal cord polyp Social [...] Polyp Vocal area and Vocal Cord cyst [place] EXCISION THYROGLOSSAL DUCT CYST/SINUS Procedure:DL, e/o thyroglossal [...] Polyp Vocal area and Vocal Cord cyst [place] EXCISION THYROGLOSSAL DUCT CYST/SINUS Procedure:DL, e/o thyroglossal [...] Positives noted above. Remainder are negative per [facility] guidelines. OBJECTIVE: Visit Vitals BP 110/66 Pulse [...] cancer. Colonoscopy can be scheduled electively. Patient informedof the risks of procedure which include but [...] 24 hrs post procedure. Thank you, Mars Torres DO documented in this encounterMadison Medical [id number] History of Present illness Narrative* Azul Quezada NP - 05/19/2024 3:10 PM EDTAssociated Problem(s): Right hand pain Offered xray he declines Will just monitor at this time * Azul Quezada NP - 05/19/2024 3:10 PM EDTAssociated Problem(s): Depression with anxiety Continue with fluoxetine at current dose Fu in 3 months * Azul Quezada NP - 05/19/2024 3:09 PM EDTAssociated Problem(s): Bilateral carotid artery stenosis Cont with vascular * Azul Quezada NP - 05/19/2024 3:09 PM EDTAssociated Problem(s): Centrilobular emphysema (CMS/HCC) Continue with pulmonology * RACHEL ACEVEDO - 05/19/2024 2:00 PM EDT Pt states he messed up his right hand about a month ago at work- can't straighten out his hand and it bothers him * Azul Quezada NP - 05/19/2024 2:00 PM EDT Images from the original note [...] COVID-19 07/2019 CVA (cerebral vascular accident) ([facility]) Degenerative cervical disc Depression with anxiety Insomnia Marijuana abuse 10/30/2023 Multiple pulmonary nodules Neck mass 2014 Osteoarthritis Papule of skin 11/13/2023 Pigmented skin lesion of uncertain nature Rheumatic fever Stroke ([facility]/HCC) 07/2020 Testicle lump Tourette's (CMS/HCC) Vertebral artery occlusion Vocal cord polyp Past Surgical History: Procedure Laterality Date ADENOIDECTOMY CAROTID STENT Right 09/2019 stent, RT carotid CT GUIDED TRANSVAGINAL TRANSRECTAL FLUID DRAIN 06/09/2020 CT GUIDED TRANSVAGINAL TRANSRECTAL FLUID DRAIN 06/09/2020 OTHER SURGICAL HISTORY Removal of Polyp Vocal area and Vocal Cord cyst [place] EXCISION THYROGLOSSAL DUCT CYST/SINUS Procedure:DL, e/o thyroglossal [...] monitor at this time documented in this encounterMadison Medical [id number] Miscellaneous Notes* Telephone Encounter - Grace Moore RN - 01/14/2024 8:50 AM EDT Per January 2024 recall, patient is due for routine CUS imaging per Dr. Terrell. Please call to remind patient and provide central scheduling number if needed. Will call with results once completed. * Telephone Encounter - Grace Moore RN - 01/14/2024 8:50 AM EDT Called patient, call went to but inbox was full and selling underwriter was unable to leave message reminder for imaging. Will try again later. * Telephone Encounter - Ashwini Jones - 01/14/2024 8:50 AM EDT Received call today 01/14/24 1:05 from patient in regard to previous message and I informed him of clinical staff's messages below - he voiced understanding and I provided him with Central Scheduling phone# to schedule imaging. * Telephone Encounter - Grace Moore RN - 01/14/2024 8:50 AM EDT Called patient and reminded of imaging that is due. He stated understanding and asked if he could have it done in [place] at the [facility] facility there because he doesn't have a car and stated it would be impossible for him to make it to [place]. [employer]pe Scraper confirmed patient had central scheduling phone number to get the scans scheduled. * Telephone Encounter - Grace Moore RN - 01/14/2024 8:50 AM EDT Called patient and got VM but it was full so selling underwriter was unable to leave message reminding patient of imaging that is due. * Telephone Encounter - Grace Moore RN - 01/14/2024 8:50 AM EDT Attempted to call patient and got voicemail but selling underwriter was unable to leave message due to it being full. Will try again later and send letter with order via mail. * Telephone Encounter - Grace Moore RN - 01/14/2024 8:50 AM EDT Attempted to call patient and got voicemail but selling underwriter was unable to leave message due to it being full. Letter and order mailed to address on file. Will follow up in 1 month. * Telephone Encounter - Grace Moore RN - 01/14/2024 8:50 AM EDT Attempted to call patient and got voicemail but selling underwriter was unable to leave message due to it being full. documented in this encounterDiley [facility] Center04-24-2024 Telephone encounter Note* Telephone Encounter - Grace Moore RN - 01/14/2024 8:50 AM EDT Per January 2024 recall, patient is due for routine CUS imaging per Dr. Terrell. Please call to remind patient and provide central scheduling number if needed. Will call with results once completed. [facility]04-24-2024 Telephone encounter Note* Telephone Encounter - Grace Moore RN - 01/14/2024 8:50 AM EDT Called patient, call went to but inbox was full and selling underwriter was unable to leave message reminder for imaging. Will try again later. [facility]04-24-2024 Telephone encounter Note* Telephone Encounter - Ashwini Jones - 01/14/2024 8:50 AM EDT Received call today 01/14/24 1:05 from patient in regard to previous message and I informed him of clinical staff's messages below - he voiced understanding and I provided him with Central Scheduling phone# to schedule imaging. [facility]04-24-2024 Telephone encounter Note* Telephone Encounter - Grace Moore RN - 01/14/2024 8:50 AM EDT Called patient and reminded of imaging that is due. He stated understanding and asked if he could have it done in [place] at the [facility] facility there because he doesn't have a car and stated it would be impossible for him to make it to [place]. [employer] Sc[employer]per confirmed patient had central scheduling phone number to get the scans scheduled. [facility]04-24-2024 Telephone encounter Note* Telephone Encounter - Grace Moore RN - 01/14/2024 8:50 AM EDT Called patient and got but it was full so selling underwriter was unable to leave message reminding patient of imaging that is due. [facility]04-24-2024 Telephone encounter Note* Telephone Encounter - Grace Moore RN - 01/14/2024 8:50 AM EDT Attempted to call patient and got voicemail but selling underwriter was unable to leave message due to it being full. Will try again later and send letter with order via mail. [facility] HeyKiki [id number] Telephone encounter Note* Telephone Encounter - Grace Moore RN - 01/14/2024 8:50 AM EDT Attempted to call patient and got voicemail but selling underwriter was unable to leave message due to it being full. Letter and order mailed to address on file. Will follow up in 1 month. [facility] HeyKiki [id number] Telephone encounter Note* Telephone Encounter - Grace Moore RN - 01/14/2024 8:50 AM EDT Attempted to call patient and got voicemail but selling underwriter was unable to leave message due to it being full. [facility] HeyKiki [id number] History of Present illness Narrative* Azul Quezada NP - 10/30/2023 11:06 AM ESTAssociated Problem(s): Influenza Continues to slowly improve, recommend flu shot pt did not get this Fatigue remains, will see back in office in 2 weeks and remains off work * Azul Quezada NP - 10/30/2023 11:05 AM ESTAssociated Problem(s): Centrilobular emphysema (CMS/HCC) Continue with Samsa, as well as current inhalers * RACHEL ACEVEDO - 10/30/2023 10:00 AM EST Was in the hospital x2 in less then a month of SOB. He had influenza the last time and the hospitalkept him for three days. Tired and exhausted Very SOB Stuffy * Azul Quezada NP - 10/30/2023 10:00 AM EST Images from the original note were not included. Sam Carrasco is a 63 y.o. male presents with chief complaint of No chief complaint on file. HPI: Recent hospitalization at [facility] for 3 days d/t influenza. Does [...] stenosis Calcified lymph nodes Centrilobular emphysema ([facility]/HCC) COVID-19 07/2019 CVA (cerebral vascular accident) ([facility]) Degenerative cervical disc Depression with anxiety Insomnia Marijuana abuse 10/30/2023 Multiple pulmonary nodules Neck mass 2013 Osteoarthritis Papule of skin Pigmented skin lesion of uncertain nature Rheumatic fever Stroke ([facility]) 07/2020 Testicle lump Tourette's ([facility]) Vertebral artery occlusion Vocal cord polyp Past Surgical History: Procedure Laterality Date ADENOIDECTOMY CAROTID STENT Right 09/2019 stent, RT carotid CT GUIDED TRANSVAGINAL TRANSRECTAL FLUID DRAIN 06/09/2020 CT GUIDED TRANSVAGINAL TRANSRECTAL FLUID DRAIN 06/09/2020 OTHER SURGICAL HISTORY Removal of Polyp Vocal area and Vocal Cord cyst [place] EXCISION THYROGLOSSAL DUCT CYST/SINUS Procedure:DL, e/o thyroglossal [...] and remains off work documented in this encounterNOMS HealthcareEvaluation note* Diagnosis Influenza- Primary Influenza with [...] level- Primary documented in this encounter [facility]* Diagnosis Depression with anxiety Dysthymic disorder Insomnia, unspecified Mixed hyperlipidemia (CMS/HCC) Mixed hyperlipidemia documented in this encounter [facility]* Diagnosis Internal carotid artery stenosis, right- Primary [facility]* Diagnosis Influenza- Primary Influenza with [...] facility Routine [facility] Depression with anxiety- Primary Dysthymic [...] acute exacerbation (CMS/HCC) documented in this encounter [facility] HealthcareEvaluation [...] encounter [facility] HealthcareInstructionsNot on filedocumented in this encounterDiley Ridge Medical CenterReason for referral (narrative)* Consultation (Routine) - Pending ReviewSpecialtyDiagnoses / ProceduresReferred By ContactReferred To Contact General Surgery Diagnoses Sessile colonic polyp Procedures [place] OFFICE/OUTPATIENT [facility] 60 MINUTES Azul Quezada, ORACIO [address] [place] [address] Ibeth Torres DO [address] [facility] [address] [place] [address] Referral IDStatusReasonStart DateExpiration DateVisits RequestedVisits [id number] Review Specialty Services Required /[id number] [facility] Summary Purpose Family History No Family History Records FoundNo Family History Records FoundNo Family History Records FoundNo Family History Records FoundNo Family History Records FoundNo Family History Records Found Advance Directives No Advanced Directives Records FoundNo Advanced Directives Records FoundNo Advanced Directives Records FoundNo Advanced Directives Records FoundNo Advanced Directives Records FoundNo Advanced Directives Records Found Reason for Referral SpecialtyDiagnoses / ProceduresReferred By ContactReferred To Contact Diagnoses Internal carotid artery stenosis, right Procedures Vas carotid duplex bilateral Andrew Terrell MD [address] [place] [address], [address] [place] [address] Referral IDStatusReasonStart DateExpiration DateVisits RequestedVisits [id number] Review/ Additional Source Comments (unrecognized sect ion and content) No Status Records FoundNo Status Records FoundNo Status Records FoundNo Status Records FoundNo Status Records FoundNo Status Records Found INFORMATION SOURCE (unrecogn ized section and content) DATE CREATED AUTHOR 09/04/2019 [facility] DATE CREATED AUTHOR AUTHOR'S ORGANIZ ATION 09/30/[address] [facility] DATE CREATED AUTHOR AUTHOR'S ORGANIZ ATION 05/19/2025 [facility] DATE CREATED AUTHOR AUTHOR'S ORGANIZ ATION 07/14/2025 [facility] DATE CREATED AUTHOR AUTHOR'S ORGANIZ ATION 07/14/2025 [facility] DATE CREATED AUTHOR AUTHOR'S ORGANIZ ATION 07/14/2025 [facility] Care Teams (unrecognized sec tion and content) Team MemberRelationshipSpecialtyStart DateEnd Date Kiko Zurita MD PCP - GeneralFamily Medicine04/07/23 Azul Quezada NP [address] [place] [address] Referring PhysicianNurse Practitioner04/07/23Team MemberRelationshipSpecialty Start DateEnd Date Kiko Zurita MD [address] [place] [address] [facility] - [facility] [place] [facility]/23 Azul Quezada NP [address] [place] [address] Referring PhysicianNurse Practitioner04/07/23Team MemberRelationshipSpecialty Start DateEnd Date Kiko Zurita MD [address] [place] [address] PCP - General acute hospital Medicine10/24/23 Azul Quezada NP [address] [place] [address] Referring PhysicianNurse Practitioner04/07/23Team MemberRelationshipSpecialty Start DateEnd Date Kiko Zurita MD [address] [place] [address] [facility] - [facility] [place] [facility]10/[facility]/23 Azul Quezada NP [address] [place] [address] Referring PhysicianNurse Practitioner04/07/23Team MemberRelationshipSpecialty Start DateEnd Date Kiko Zurita MD [address] [place] [address] PCP - Generalmily Medicine10/24/23 Azul Quezada NP [address] [place] [address] Referring PhysicianNurse Practitioner04/07/23Team MemberRelationshipSpecialty Start DateEnd Date Kiko Zurita MD [address] [place] [address] [facility] [place] [facility]10/[facility]/23 Azul Quezada NP [address] [place] [address] Referring PhysicianNurse Practitioner04/07/23Team MemberRelationshipSpecialty Start DateEnd Date Kiko Zurita MD [address] [place] [address] [facility] [place] [facility]10/[facility]/23 Azul Quezada NP [address] [place] [address] Referring PhysicianNurse Practitioner04/07/23Team MemberRelationshipSpecialty Start DateEnd Date Kiko Zurita MD [address] [place] [address] [facility] [place] [facility]10/[facility]/23 Azul Quezada NP [address] [place] [address] Referring PhysicianNurse Practitioner04/07/23Team MemberRelationshipSpecialty Start DateEnd Date Kiko Zurita MD [address] [place] [address] PCP - GeneralFamily Medicine10/24/23 Azul Quezada NP [address] [place] [address] Referring PhysicianNurse Practitioner04/07/23Team MemberRelationshipSpecialty Start DateEnd Date Kiko Zurita MD [address] [place] [address] [facility] [place] [facility]10/[facility]/23 Azul Quezada NP [address] [place] [address] Referring PhysicianNurse Practitioner04/07/23Team MemberRelationshipSpecialty Start DateEnd Date Kiko Zurita MD [address] [place] [address] PCP - GeneralFamily Medicine10/24/23 Azul Quezada NP [address] [place] [address] Referring PhysicianNurse Practitioner04/07/23Team MemberRelationshipSpecialty Start DateEnd Date Azul Quezada, [facility] [address] [place] [address] PCP - GeneralNurse Jxzwdlyqcjoa10/9/19Team MemberRelationshipSpecialtyStart Date End Date Kiko Zurita MD [address] [place] [address] PCP - [facility]10/24/23 Azul Quezada NP [address] [place] [address] [facility] Azul Quezada NP [address] [place] [address] Referring PhysicianNurse Practitioner04/07/23Team MemberRelationshipSpecialty Start DateEnd Date Kiko Zurita MD [address] [place] [address] PCP - [facility]10/24/23 Azul Quezada NP [address] [place] [address] [facility] Azul Quezada NP [address] [place] [address] Referring PhysicianNurse Practitioner04/07/23Team MemberRelationshipSpecialty Start DateEnd Date Kiko Zurita MD [address] [place] [address] PCP - [facility]10/24/23 Azul Quezada NP [address] [place] [address] PCP - [facility]10/29/24 Azul Quezada NP [address] [place] [address] Referring PhysicianNurse Practitioner04/07/23Te MemberRelationshipSpecialty Start DateEnd Date Kiko Zurita MD [address] [place] [address] PCP - General acute hospital Medicine10/24/23 Azul Quezada NP [address] [place] [address] PCP - [facility]10/29/24 Azul Quezada NP [address] [place] [address] Referring PhysicianNurse Practitioner04/07/23Te MemberRelationshipSpecialty Start DateEnd Date Kiko Zurita MD [address] [place] [address] [facility] [place] [facility]/23 Azul Quezada NP [address] [place] [address] PCP - [facility]10/29/24 Azul Quezada NP [address] [place] [address] Referring PhysicianNurse Practitioner04/07/23Team MemberRelationshipSpecialty Start DateEnd Date Kiko Zurita MD [address] [place] [address] PCP - GeneralFamily Medicine10/24/23 Azul Quezada NP [address] [place] [address] PCP - [facility]10/29/24 Azul Quezada NP [address] [place] [address] Referring PhysicianNurse Practitioner04/07/23Team MemberRelationshipSpecialty Start DateEnd Date Kiko Zurita MD [address] [place] [address] PCP - GeneralFamily Medicine10/24/23 Azul Quezada NP [address] [place] [address] PCP - [facility]10/29/24 Azul Quezada NP [address] [place] [address] Referring PhysicianNurse Practitioner04/07/23Team MemberRelationshipSpecialty Start DateEnd Date Kiko Zurita MD [address] [place] [address] PCP - GeneralFamily Medicine10/24/23 Azul Quezada NP [address] [place] [address] PCP - [facility]10/29/24 Azul Quezada NP [address] [place] [address] Referring PhysicianNurse Practitioner04/07/23Team MemberRelationshipSpecialty Start DateEnd Date Kiko Zurita MD [facility] [place]10/[facility]/23 Azul Quezada NP [address] [place] [address] PCP - [facility]10/29/24 Azul Quezada NP Referring PhysicianNurse Practitioner04/07/23 Reason for Visit (unrecogniz ed section and content) ReasonCommentsColonoscopyPt presents today for a colonoscopy consult. He states that he did have a colonoscopy about 5 yearsago and they found a polyp. Pt denies abdominal pain, changes in bowel movements, or any rectal bleeding. Pt denies any family hx of colon cancer.ReasonCommentsMed RefillReasonCommentsCOPD ReasonCommentsHospital Follow-up FOR RECORDS PERTAINING TO PATIENTS WHO [...] BE BASED ON THE PRIMARY CLINICAL RECORDS. [employer] provides no warranty or guarantee of the accuracy or completeness of information in this document.
--- OUTSIDE RECORDS SUMMARY | 2025-07-23 08:24 | XMS_ITS | Clinical Summary ---
Author Organization tic s tem Address [id number] [place] [address] Care Team Providers Care User Experience Developer Name Role Phone Azul Quezada APRN-AGRONOMIST Primary Care Provider Allergies Active AllergyReactionsCriticalityNoted DateCommentsBee Venom Protein (Honey Bee)06/09/2020 Medications MedicationSigDispense QuantityRefillsLast FilledStart DateEnd DateStatus albuterol (ACCUNEB) 0.63 mg/3 mL nebulizer solution Inhale 3 mL (0.63 mg total) by nebulization every 6 (six) hours as needed for wheezing.Active albuterol (PROVENTIL HFA;VENTOLIN HFA) 90 mcg/actuation inhaler Inhale 2 puffs every 6 (six) hours as needed for wheezing.Active tiotropium (SPIRIVA) 18 mcg per inhalation capsule Place 1 capsule into inhaler and inhale once daily.Active traZODone (DESYREL) 75 mg tablet Take 50 mg by mouth nightly.Active FLUoxetine (PROzac) 10 mg capsule Take 1 capsule (10 mg total) by mouth in the morning.Active aspirin 81 mg chewable tablet Chew 1 tablet (81 mg total) and swallow daily. 30 tablet Active rosuvastatin (CRESTOR) 10 mg tablet Take 1 tablet (10 mg total) by mouth nightly. 90 tablet 5Active ticagrelor (BRILINTA) 90 mg tablet Take 1 tablet (90 mg total) by mouth every 12 (twelve) hours. 180 tablet 5Active atorvastatin (LIPITOR) 40 mg tablet Take 1 tablet (40 mg total) by mouth nightly. 30 tablet Discontinued(Stop Taking at Discharge) ticagrelor (BRILINTA) 90 mg tablet Take 1 tablet (90 mg total) by mouth every 12 (twelve) hours. 60 tablet Discontinued(Stop Taking at Discharge) Active Problems ProblemNoted DateDiagnosed DateStroke (cerebrum)07/08/2025Mixed hyperlipidemia 07/20/20207341Qqmcox80/29/2020Internal carotid artery stenosis, right06/10/2020CVA (cerebral vascular accident)06/10/2020 Encounters DateTypeDepartmentCare EvnkVlxvbadexzg14/18/2025 11:30 AM EDT - 07/09/2025 12:30 PM [facility]ur[facility] [address] [place] [phone] Andrew Terrell MD Diagnostic cerebral ncosrofyi34/17/0740Vvdohe53/16/2025 12:52 PM EDT - 07/12/2025 4:58 PM EDTHospital Encounter [facility] Acute [address] [place] [phone] Checo Aguilera MD EmmaLex MD Internal carotid artery stenosis, right (Primary Dx) Discharge Disposition: Retirement Facility-Medicare Cert07/07/2025 11:35 AM EDTAncillary Procedure [facility] [address] [place] [phone] Pain07/07/2025 11:30 AM EDTAncillary Procedure [facility] [place] [phone] Pain07/07/2025 11:20 AM EDTAncillary Procedure [facility] [address] [place] [phone] Pain07/07/2025Orders Only [facility] [place] [phone] External, Scanning Provider Pain (Primary Dx)from Last 3 Months Immunizations ImmunizationAdministration DatesNext Rajni Kwan Flucelvax (Pf)07/12/2025 Family History Medical HistoryRelationNameCommentsHeart diseaseFatherCOPDMotherHeart disease MotherPeripheral vascular diseaseMotherRelationNameStatusCommentsFatherDeceased MotherDeceased Social History Tobacco UseTypesPacks/DayYears UsedDateSmoking Tobacco: Every [...] relatives?Once a week06/10/2020How often do you attend protestant or taoism services?Never06/10/2020Do you belong to any clubs or organizations such as protestant groups, unions, fraClearTax or athletic groups, or school groups?No 06/10/2020How often do you attend meetings of the clubs or organizations you belong to?Never06/10/2020Are you , , , , never , or living with a partner?Living with bowallz2006/10/2020PHQ-2AnswerDate RecordedTotal Hafkr176Finlifepoint hospitals [facility] [place] of Occupational Health - Occupational Stress QuestionnaireAnswerDate [...] RecordedIn the past 12 months has the electric, gas, oil, or water company threatened to shut off services in your home?No07/08/2025Housing InstabilityAnswerDate RecordedAre you worried or concerned that in the next two months you may not have stable housing that you own, rent or stay in as a part of a household?No07/08/2025hildcareAnswerDate RecordedChildcareUnknown 03/03/2019EmploymentAnswerDate MoesovtlZxokbqtvxcIdwexiy88/12/2019Hunger ScreeningAnswerDate RecordedWithin the past 12 months we worried whether our food would run out before we got money to buy more.Never True07/08/2025Within the past 12 months the food we bought just didn't last and we didn't have money to get more.Never True07/08/2025Purpose - LifeAnswerDate RecordedPurpose and direction in nswqRvegcln44/26/2021ex and Gender InformationValueDate Recorded Sex Assigned at BirthNot on fileLegal JcmTpse0604/27/2015 11:32 AM EDTGender IdentityNot on fileSexual OrientationNot on file Last Filed Vital Signs Vital SignReadingTime TakenCommentsBlood Prcasnjm555/8307/12/2025 2:48 PM EDT Opdpn8883/21/2025 3:43 PM MQUNzqimerxgrh80.9 ??C (98.4 ??F)07/12/2025 11:45 AM EDTRespiratory Kbnq398807/12/2025 3:43 PM EDTOxygen Npkxtkhask23%07/12/2025 3:43 PM EDTInhaled Oxygen Concentration--Aojuau66 kg (202 lb 13.2 oz)07/12/2025 4:41 AM MDLMeakkm140.4 cm (6' 1 )07/08/2025 1:01 PM EDTBody Mass Index26.7607/08/2025 1:01 PM EDT Plan of Treatment DateTypeDepartmentCare Team (Latest Contact Info)Dsjukwpxsum50/04/2025 1:30 PM ESTOffice Visit [facility] Department of [address] [place] [address] Andrew Terrell MD [address] [place] [address], [address] [place] [address] Health MaintenanceDue DateLast DoneCommentsTobacco Mzbskyvgcz1960Adult BMI Follow Up Plan1978DTaP,Tdap and Td Vaccines (1 - Tdap)1979Zoster (Shingles) Vaccine (1 of 2)2010RSV ( or age 60+ yrs) (1 - Risk 60- 74 years 1-dose series)2020Abdominal Aortic Aneurysm (AAA) Screen 2025Fall Risk Qvitptwff02/01/2025Depression Xgbwmijai82 Tobacco Dlzzyawcq60dult BMI Mdgmdzzsi91 Influenza UwnxmuzNhmwtates71/21/2025, 08/16/2024, 2020, Additional history exists Goals GoalPatient Goal TypeAssociated ProblemsRecent ProgressPatient-Stated?Author Safe Discharge Jaki Mock, RAJEEV Note: Evaluation of progress towards goal: safe transition to SNF rehab for strengthening and rehab s/p stroke Medical Devices ImplantedTypeAreaManufacturerDevice IdentifierShelf Expiration DateModel / Serial / LotStnt Vsc 8/6mm 6fr 30mm 135cm - [id number] Implanted:Qty: 1 on 06/12/2020 [facility] CarotidMEDTRONIC [id number] / / [id number] Crtd Neuroguard 40mm 140cm Clsd Cell Bln Fltr - [id number] Implanted:Qty: 1 on 07/09/2025 [facility]05/16/[id number]-[id number] / / [id number] Procedures Procedure NamePriorityDate/TimeAssociated DiagnosisCommentsEXTRA TUBES LAVENDER AFZSfqxtzj42/21/2025 5:54 AM EDT EXTRA WBTGYObzevsc90/21/2025 5:54 AM EDT COMPREHENSIVE METABOLIC MCHYEXijkkfv56/21/2025 5:54 AM EDT COMPREHENSIVE METABOLIC RTFRQVgxmtbf51/20/2025 3:34 AM EDT CBC WITH AUTO GHNNXGEBZOBDKiiqmdg44/19/2025 3:28 AM EDT COMPREHENSIVE METABOLIC TZXIEWkzuilz45/19/2025 3:28 AM EDT NEURO CJOZQIEKWwbgndi97/18/2025 12:45 PM EDTNEURO WDPKPKQALxmewhv79/18/2025 12:45 PM EDTCBC WITH AUTO VXQEKAHAXFHZFclhjdn55/18/2025 3:48 AM EDT COMPREHENSIVE METABOLIC UOMOWBnejqsi10/18/2025 3:48 AM EDT FL SWALLOW MOTILITY FMZTGBRWLhgmrtt86/17/2025 1:46 PM EDT ECHO COMPLETE W UCZDWOSGCaggryc83/17/2025 1:37 PM EDT VASC CAROTID DUPLEX UFAHMOUZFUirryih00/17/2025 11:11 AM EDT CBC WITH AUTO NKUXHQLEWFDHBohvdza64/17/2025 3:14 AM EDT COMPREHENSIVE METABOLIC QXLZGSwddflo29/17/2025 3:14 AM EDT LIPID GIHQAQZEyjnujg69/17/2025 3:14 AM EDT MR BRAIN WO SIHZOAKI48/16/2025 9:02 PM EDT XR CHEST 1 LXHtfhift51/16/2025 6:56 PM EDT ECG 12-GHJRBNUA39/16/2025 5:35 PM EDT B-TYPE NATRIURETIC PEPTIDEAdd-On07/07/2025 3:49 PM EDT CBC WITH AUTO ZUSSXKDJHOBDRixbjnh44/16/2025 3:49 PM EDT COMPREHENSIVE METABOLIC ROTZFCdiskmg35/16/2025 3:49 PM EDT HEMOGLOBIN C5ZOyvljae46/16/2025 3:49 PM EDT BEDSIDE EYAOAQSDrrloqw49/16/2025 2:[address] CEREBRAL PERF IIDKNIJDRQYR33/16/2025 2:[address] CTA OJDFJTCTfgnpqe06/16/2025 11:[address] CTA JFVDJblnvwe51/16/2025 11:[address] BRAIN WO BBZIJojaosg96/16/2025 11:20 AM EDT Pain from Last 3 Months Results * Lavender Top (07/12/2025 5:54 AM EDT)ComponentValueRef RangeTest Method Analysis TimePerformed AtPathologist SignatureExtra TubeAuto Resulted 07/12/2025 7:01 AM EDTTGLENBEIGH H[facility]PITAL LABORATORYSpecimen (Source) Anatomical Location / LateralityCollection Method / VolumeCollection Time Received TimeBloodVenous blood / Boztgyz3407/12/2025 5:54 AM EDT1 6:11 AM EDT Narrative Authorizing ProviderResult TypeResult StatusMojerzy BAKER BLOOD ORDERABLESFinal ResultPerforming OrganizationAddressCity/State/ZIP CodePhone Number [facility] [address] [place] [address], * (ABNORMAL) Comprehensive metabolic panel (07/12/2025 5:54 AM EDT) Only the most recent of6 resultswithin the time period is included. ComponentValueRef RangeTest MethodAnalysis TimePerformed AtPathologist Signature OZWWWC404833 - 146 mmol/L1 6:49 AM [facility] LABORATORYPOTASSIUM4.03.5 - 5.0 mmol/L1 6:49 AM [facility] QHZYTIGFBZXPZRVSTS32563 - 109 mmol/L1 6:49 AM [facility] LABORATORYCARB[place] DWHGLKT7291 - 32 mmol/L1 6:49 AM [facility] LABORATORYANION GAP85 - 15 mmol/L1 6:49 AM [facility] LABORATORYBLOOD UREA ZMWGBEWJ698 - 27 mg/dL07/12/2025 6:49 AM [facility] LABORATORYCREATININE0.750.60 - 1.30 mg/dL07/12/2025 6:49 AM [facility] LABORATORYComment:METHOD TRACEABLE TO IDMS DJMDBZMKFDQAICH6737 - 99 mg/dL07/12/2025 6:49 AM [facility] LABORATORYCALCIUM8.68.5 - 10.5 mg/dL07/12/2025 6:49 AM [facility] LABORATORYTOTAL PROTEIN5.6(L)6.0 - 8.0 g/dL07/12/2025 6:49 AM [facility] LABORATORYALBUMIN3.43.2 - 5.3 g/dL07/12/2025 6:49 AM [facility] LABORATORYALKALINE LCMOGFZTMAM1451 - 130 U/L1 6:49 AM [facility] LFFVJKUAREXAA99<=41 U/L1 6:49 AM [facility] CTGXEVZREEOKE93<=40 U/L1 6:49 AM [facility] LABORATORYBILIRUBIN,TOTAL0.90.3 - 1.2 mg/dL07/12/2025 6:49 AM [facility] LABORATORYEGFR Non-Race Dependent>90>=60 ml/min/1.73sq.m 07/12/2025 6:49 AM [facility] LABORATORYComment: Reported eGFR is based on the CKD-EPI 2020 equation that does not use a race coefficient. Specimen (Source)Anatomical Location / LateralityCollection Method / Volume Collection TimeReceived TimeBloodVenous blood / UnknownVenipuncture / Unknown 07/12/2025 5:54 AM EDT1 6:11 AM EDT Narrative Authorizing ProviderResult TypeResult StatusAhmed Deven Tobar [facility] BLOOD ORDERABLESFinal ResultPerforming OrganizationAddressCity/State/ZIP CodePhone Number [facility] [address] [place] [address], * (ABNORMAL) CBC auto differential (07/10/2025 3:28 AM EDT) Only the most recent of4 resultswithin the time period is included. ComponentValueRef RangeTest MethodAnalysis TimePerformed AtPathologist Signature WBC10.04 - 11 x10E9/L1 3:55 AM [facility] RBC Count4.304.1 - 5.7 X10E12/L1 3:55 AM [facility] XTHLBIRGJVKvnziwxkzl73.6(L)13 - 17 g/dL07/10/2025 3:55 AM [facility] ZAYRBCLFPZEjetyhtjid05.9(L)39 - 50 %07/10/2025 3:55 AM [facility] SUHJQAREFGYLK0793 - 100 fL07/10/2025 3:55 AM [facility] TAXJTXIFPXBEJ05.427 - 34 pg07/10/2025 3:55 AM [facility] XRFPPJUKMGGUTD80.332 - 36 g/dL07/10/2025 3:55 AM [facility] GLAJEQAJRSBKZ19.911.5 - 15 %07/10/2025 3:55 AM [facility] LABORATORYPlatelet Lqjki689327 - 450 X10E9/L1 3:55 AM [facility] LABORATORYMPV7.47 - 12 fL07/10/2025 3:55 AM [facility] LABORATORYNeutrophils %75.4%07/10/2025 3:55 AM [facility] LABORATORYLymphocytes %10.4%07/10/2025 3:55 AM [facility] LABORATORYMonocytes %10.7%07/10/2025 3:55 AM [facility] LABORATORYEosinophils %3.0%07/10/2025 3:55 AM [facility] LABORATORYBasophils %0.5%07/10/2025 3:55 AM [facility] LABORATORYNeutrophils Absolute (A)7.5(H)1.5 - 6.6 10*3/uL07/10/2025 3:55 AM [facility] LABORATORYLymphocytes Absolute1.01.0 - 3.5 10*3/uL 07/10/2025 3:55 AM [facility] LABORATORYMonocytes Absolute1.1 (H)0.0 - 0.9 10*3/uL07/10/2025 3:55 AM [facility] Eosinophils Absolute0.30.0 - 0.4 10*3/uL07/10/2025 3:55 AM [facility] LABORATORYBasophils Absolute0.10.0 - 0.2 10*3/uL07/10/2025 3:55 AM [facility] LABORATORYDifferential TypeAUTOMATED DIFFERENTIAL 07/10/2025 3:55 AM [facility] LABORATORYSpecimen (Source) Anatomical Location / LateralityCollection Method / VolumeCollection Time Received TimeBloodVenous blood / UnknownVenipuncture / Nvgjvkf7307/10/2025 3:28 AM EDT1 3:42 AM EDT Narrative Authorizing ProviderResult TypeResult StatusAhkellee Guzman MDLAB BLOOD ORDERABLESFinal ResultPerforming OrganizationAddressCity/State/ZIP CodePhone Number [facility] [address] [place] [address], * Fluoroscopy swallow motility function (07/08/2025 1:46 [...] recommendations. Approved by Res Tai Koo MD ??on 07/08/2025 1:50 PM IDenny MD have personally [...] report for additionaldetails and recommendations. Approved by Res Tai Koo MD on 07/08/2025 1:50 PM IDenny MD have personally reviewed the image(s) and agree withand/or edited the report Finalized by Denny Parekh MD on 07/08/2025 1:55 PM Authorizing ProviderResult TypeResult StatusMojerzy Aguilera MDIMDemetrius FLUOROSCOPY ORDERABLESFinal Result * Echo complete W/ contrast (07/08/2025 1:37 PM EDT)ComponentValueRef RangeTest MethodAnalysis TimePerformed AtPathologist SignatureLVOT stroke dkbupb14.58ml BSOROYACN1949 - 44 %XCELERALVIDd5.906.58 - 9.14 cmXCELERALVIDs3.703.82 - 5.79 cmXCELERAIVS0.900.6 - 1.1 cmXCELERAPW0.900.6 - 1.1 cmXCELERALVOT diameter1.90 cmXCELERATDI6.31cm/sXCELERAMV TDI E' (medial)5.98cm/sXCELERAE/A ratio0.82 XCELERAE wave deceleration jhja832.00msecXCELERAMV Peak E Vel76.00cm/sXCELERA MV Peak A Vel92.80cm/sXCELERALA size2.70cmXCELERARV diastolic dimension (basal)32.9afCAMDNSYEBANU5.83cmXCELERAAV peak sdr938.00cm/sXCELERALVOT peak vel1.31m/sXCELERAAV VTI25.10cmXCELERALVOT peak VTI25.60cmXCELERAAV mean gradient5.00mmHgXCELERAAV peak gradient7.62mmHgXCELERAAV valve area2.89XCELERA Valve area - Index1.3XCELERAMV pressure 1/2 time77.00msXCELERAMV valve area p 1/2 method2.65sy5DWSDXJCPR peak gradient3.11mmHgXCELERALV ESV A4C22.60mL XCELERALV RWT 2D30.51XCELERAAV Velocity Ratio1.02XCELERALeft Ventricle Mass 209.862057378980048pDEDILUSFdlhrlccrknbwsxb Septum Diastolic Thickness by 2D9 cmXCELERAEst. RA cmmbrcjf0fgAzDEPOFOWJD area16.2rr1XPDWBVRCWYIJB-6.90XCELERA ZLVIDD-2.73XCELERAAnatomical RegionLateralityModalityChestN/AUltrasound Specimen (Source)Anatomical Location / LateralityCollection [...] patient's respiration. Authorizing ProviderResult TypeResult StatusRosibel Zhang [facility] [place] ORDERABLESFinal Result * Vas carotid duplex [...] number besidetheir name. Authorizing ProviderResult TypeResult StatusRosibel Vicente [facility] [place]ULAR ORDERABLESFinal Result * (ABNORMAL) Lipid profile (07/08/2025 3:14 AM EDT)ComponentValueRef RangeTest MethodAnalysis TimePerformed AtPathologist SivrxkmmsLMFZIMIKCFQ228(L)150 - 200 mg/dL07/08/2025 4:33 AM [facility] VTSJKMGZAUPEGWDARREVUM3662 - 150 mg/dL07/08/2025 4:33 AM [facility] LABORATORYHDL ZNNJJTHQXNT75>39 mg/dL07/08/2025 4:33 AM [facility] LABORATORYComment: HDL <40 mg/dL - High Risk HDL > or = 40mg/dL- Desirable HDL >60 mg/dL - Negative Risk LDL (CALC)51<130 mg/dL07/08/2025 4:33 AM [facility] Comment: LDL <100 mg/dL - Desirable LDL >160 mg/dL - High Risk CHOLESTEROL:HDL2.31.0 - 5.010/ 4:33 AM [facility] LABORATORYVERY LOW PBMTECEPLYY416 - 30 mg/dL07/08/2025 4:33 AM [facility] LABORATORYSpecimen (Source)Anatomical Location / Laterality Collection Method / VolumeCollection TimeReceived TimeBloodVenous blood / UnknownVenipuncture / Cshnedy9107/08/2025 3:14 AM EDT10/ 3:51 AM EDT Narrative Authorizing ProviderResult TypeResult StatusKhaled Vicente BAKER BLOOD ORDERABLESFinal ResultPerforming OrganizationAddressCity/State/ZIP CodePhone Number [facility] [address] [place] [address], [place] [phone] * MR brain without contrast (07/07/2025 9:02 [...] on 07/07/2025 9:12 PM Authorizing ProviderResult TypeResult Margo Zhang [facility] MRI ORDERABLESFinal Result * X-ray chest 1 [...] on 07/07/2025 7:20 PM Authorizing ProviderResult TypeResult StatusErick Guzman [facility] DIAGNOSTIC IMAGING ORDERABLESFinal Result * ECG 12 lead (07/07/2025 5:35 PM EDT)Specimen (Source)Anatomical Location / LateralityCollection Method / VolumeCollection TimeReceived Time07/07/2025 5:35 PM EDT Narrative TRACEMASTERVUE - 07/07/2025 5:52 PM EDT Authorizing ProviderResult TypeResult Tony Carvalho Ba Theeb MDECG ORDERABLES Final ResultPerforming OrganizationAddressCity/State/ZIP CodePhone Number TRAC[facility]UE * B-type natriuretic peptide (07/07/2025 3:49 PM EDT)ComponentValueRef RangeTest MethodAnalysis TimePerformed AtPathologist KmkhntkkkIKQ13<=100 pg/mL07/07/2025 6:01 PM [facility] LABORATORYSpecimen (Source)Anatomical Location / LateralityCollection Method / VolumeCollection TimeReceived Time BloodVenous blood / UnknownVenipuncture / Ashltvx2807/07/2025 3:49 PM EDT 07/07/2025 4:02 PM EDT Narrative Authorizing ProviderResult TypeResult StatusErick BAKER BLOOD ORDERABLESFinal ResultPerforming OrganizationAddressCity/State/ZIP CodePhone Number [facility] [address] [place] [phone], * (ABNORMAL) Hemoglobin A1c (07/07/2025 3:49 PM EDT)ComponentValueRef RangeTest MethodAnalysis TimePerformed AtPathologist SignatureHEMOGLOBIN A1C5.7(H)4.4 - 5.6 %07/07/2025 4:50 PM [facility] LABORATORYComment: ?ADA Guidelines ?Result ?HgbA1c ? Normal : ? less than 5.7 % ? Prediabetes : ?5.7 % ??to 6.4 % Diabetes : > 6.4 % ?Use with caution in patients with abnormal hemoglobin variants as ??the half-life of red blood cells and in vivo glycation rates are ??affected. EST. AVERAGE LWJUBFO677tb/dL07/07/2025 4:50 PM [facility] LABORATORYSpecimen (Source)Anatomical Location / LateralityCollection Method / VolumeCollection TimeReceived TimeBloodVenous blood / UnknownVenipuncture / Syrbban5807/07/2025 3:49 PM EDT1 4:02 PM EDT Narrative Authorizing ProviderResult TypeResult StatusRosibel Zhang MDLAB BLOOD ORDERABLESFinal ResultPerforming OrganizationAddressCity/State/ZIP CodePhone Number [facility] [address] [place] [address], [place] [phone] * (ABNORMAL) Bedside Glucose *Place/Obtain serum glucose if >500 per glucometer. (07/07/2025 2:48 PM EDT)ComponentValueRef RangeTest MethodAnalysis Time Performed AtPathologist SignatureBedside Glucose (POC)117(H)65 - 99 mg/dL 07/07/2025 2:53 PM [facility] LABORATORYSpecimen (Source)Anatomical Location / LateralityCollection Method / VolumeCollection TimeReceived Time arterial/eptqjwtfl45/16/2025 2:48 PM EDT1 2:53 PM EDT Narrative Authorizing ProviderResult TypeResult StatusMouhsabiha Aguilera MDPOINT OF CARE TEST ORDERABLESFinal ResultPerforming OrganizationAddressCity/State/ZIP Code Phone Number [facility] [address] [place] [address], [place] * CT cerebral perfusion analysis (07/07/2025 2:38 [...] 07/07/2025 2:47 PM Authorizing ProviderResult TypeResult StatusRosibel Zhang [facility] CT ORDERABLES Final Result * CT angiogram carotid (07/07/2025 11:35 AM EDT)Specimen (Source)Anatomical Location / LateralityCollection Method / VolumeCollection TimeReceived Time Narrative Authorizing ProviderResult TypeResult StatusScanning Provider ExternalIMG CT ORDERABLESFinal Result * CT angiogram head (07/07/2025 11:30 AM EDT)Specimen (Source)Anatomical Location / LateralityCollection Method / VolumeCollection TimeReceived Time Narrative Authorizing ProviderResult TypeResult StatusScanning Provider ExternalIMG CT ORDERABLESFinal Result * CT brain without contrast (07/07/2025 11:20 AM EDT)Specimen (Source)Anatomical Location / LateralityCollection Method / VolumeCollection TimeReceived Time Narrative Authorizing ProviderResult TypeResult StatusScanning Provider ExternalIMG CT ORDERABLESFinal Result from Last 3 Months Insurance Advance Directives * Full Code (Latest Code Status on File) Date ActivatedDate FrbckegbgkpJvjdmxvi86/16/2025 5:09 07/12/2025 7:04 PM Care Teams Team MemberRelationshipSpecialtyStart DateEnd Date Azul Quezada, [employer] OPERATOR-AGRONOMIST PCP - GeneralNurse Nahmcdhtzrfh92/9/19
--- OUTSIDE RECORDS SUMMARY | 2025-07-23 08:24 | XMS_ITS | Encounter Summary ---
Author Organization [facility] Address [address] [place] [address] Care Team Providers Care Ethylbenzene Converter Operator Name Role Phone Azul Quezada ACCESS SERVICES REPRESENTATIVE Unavailable [phone] Kiko Zurita MD Primary Care Provider [phone] Azul Quezada ACCESS SERVICES REPRESENTATIVE Unavailable [phone] Encounter Details DateTypeDepartmentCare Team (Latest Contact Info)Laiakhzjlhq78/18/2024Clinisync Result Encounter [facility] Unsolicited Provider, Generic External Data Social History Tobacco UseTypesPacks/DayYears UsedDateSmoking Tobacco: NcxhefYkzqwgyrxw858 03/1984 - 03/2019Smokeless Tobacco: NeverAlcohol UseStandard Drinks/WeekComments Yes1 (1 standard drink = 0.6 oz pure alcohol)coffee more than 4 cups per day Humiliation, Afraid, Rape, and Kick questionnaireAnswerDate RecordedWithin the last year, have you been afraid of your partner or ex-partner?No11/13/2023Within the last year, have you been humiliated or emotionally abused in other ways by your partner or ex-partner?No11/13/2023Within the last year, have you been kicked, hit, slapped, or otherwise physically hurt by your partner or ex-partner?No11/13/2023Within the last year, have you been raped or forced to have any kind of sexual activity by your partner or ex-partner?No11/13/2023 Social Connection and Isolation PanelAnswerDate RecordedIn a typical week, how many times do you talk on the phone with family, friends, or neighbors?More than three times a week11/13/2023How often do you get together with friends or relatives?More than three times a week11/13/2023How often do you attend temple or adventist services?Never11/13/2023o you belong to any clubs or organizations such as temple groups, unions, fraternal or athletic groups, or school groups? Yes11/13/2023How often do you attend meetings of the clubs or organizations you belong to?More than 4 times per year11/13/2023re you , , , , never , or living with a partner?Uovezzl4711/13/2023 AUDIT-CAnswerDate RecordedQ1: How often do you have a drink containing alcohol? Never11/13/2023Q2: How many drinks containing alcohol do you have on a typical day when you are drinking?Patient does not drink11/13/2023Q3: How often do you have six or more drinks on one occasion?Never11/13/2023Overall Financial Resource Strain (CARDIA)AnswerDate RecordedHow hard is it for you to pay for the very basics like food, housing, medical care, and heating?Not hard at all 11/13/2023HQ-2AnswerDate RecordedPatient Health Questionnaire-2 Score2 11/16/2024[facility] [place] [facility] - Occupational Stress QuestionnaireAnswerDate RecordedDo you feel stress - tense, restless, nervous, or anxious, or unable to sleep at night because yourmind is troubled all the time - these days?Only a befkca7511/13/2023Exercise Vital SignAnswerDate Recorded On average, how many days per week do you engage in moderate to strenuous exercise (like a brisk walk)?2 days11/13/2023On average, how many minutes do you engage in exercise at this level?20 min11/13/2023Hunger Vital SignAnswerDate RecordedWithin the past 12 months, you worried that your food would run out before you got the money to buymore.Never true11/13/2023Within the past 12 months, the food you bought just didn't last and you didn't have money to get more.Never true11/13/2023RAPARE - TransportationAnswerDate RecordedIn the past 12 months, has lack of transportation kept you from medical appointments or from getting medications?No11/13/2023In the past 12 months, has lack of transportation kept you from meetings, work, or from getting things needed for daily living?11/13/2023Housing Stability Vital SignAnswerDate RecordedIn the last 12 months, was there a time when you were not able to pay the mortgage or rent on time?No11/13/2023In the last 12 months, how many places have you lived?1 11/13/2023In the last 12 months, was there a time when you did not have a steady place to sleep or slept in [facility] (including now)?No11/13/2023Sex and Gender InformationValueDate RecordedSex Assigned at BirthNot on fileLegal SexMale 12/04/2022 6:45 PM EDTGender IdentityNot on fileSexual OrientationNot on file documented as of this encounter Functional Status * Over the past 2 weeks, how often have you been bothered by any of the following problems?QuestionAnswerDate of AssessmentAuthorLittle interest or pleasure in doing thingsSeveral days11/16/2024 2:00 PM Rupinder Mueller MAFeeling down, depressed, or hopelessSeveral days11/16/2024 2:00 PM Rupinder Parry MAPatient Health Questionnaire-2 [id number] 2:00 PM Rupinder Mueller MA * QuestionAnswerDate of AssessmentAuthorTrouble falling or staying asleep, or sleeping too muchNot at all11/16/2024 2:00 PM Rupinder Mueller MAFeeling tired or having little energyNearly every day11/16/2024 2:00 PM Rupinder Mueller, MAPoor appetite or overeatingSeveral days11/16/2024 2:00 PM Rupinder Parry MAFeeling bad about yourself - or that you are a failure or have let yourself or your family downSeveral days11/16/2024 2:00 PM EST Humbarger, Rupinder, MATrouble concentrating on things, such as reading the newspaper or watching televisionSeveral days11/16/2024 2:00 PM Rupinder Mueller MAMoving or speaking so slowly that other people could have noticed? Or the opposite - being so fidgety or restless that you have been moving around a lot more than usual.Several days11/16/2024 2:00 PM Rupinder Mueller MAThoughts that you would be better off or hurting yourself in some wayMore than half the days11/16/2024 2:00 PM Rupinder Mueller MA Patient Health Questionnaire-9 Gfkyo2205/25/2025 2:00 PM Rupinder Mueller MA documented as of this encounter Plan of Treatment Not on file documented as of this encounter Procedures Procedure NamePriorityDate/TimeAssociated DiagnosisCommentsCT LUNG SCREENING LOW DOSE09/08/2024 5:49 AM EST documented in this encounter Results * CT LUNG SCREENING LOW DOSE (09/08/2024 5:49 AM EST)Anatomical RegionLaterality ModalityOtherSpecimen (Source)Anatomical Location / LateralityCollection Method / VolumeCollection TimeReceived Time09/08/2024 5:49 AM EST Narrative 09/08/2024 5:51 AM EST [facility] ?[address] ? [place] [address] ? CT Scan Report ? Signed ? Patient: SAM KRAMER ?MR#: [id number] ?? : 1960 ?Acct:[id number] ?? Age/Sex: 64 / M ?ADM Date: 09/06/24 ?? Loc: CT ? Attending Dr: Jameson White D.O. ? Ordering Physician: Jameson White D.O. ?? Date of Service: 09/06/24 ?? Procedure(s): CT lung screening low-dose ?? Accession Number(s): [id number] ? cc: Azul Quezada NP ? [facility] ? [address] ? [place] [address] ? Patient Name: ?? SAM KRAMER ? MRN: [id number] ? date: 1960 ?Sex: M ?? Assigned Patient Location: CT ?? Current Patient Location: ? Accession/Order Number: [id number] ?? Exam Date: 09/06/2024 ??14:22 ?Report Date: 09/08/2024 ??05:49 ? At the request of: ?? JAMESON ??CHRISTOPHER ? Procedure: ??CT lung screening low-dose ? EXAMINATION: CT lung screening low-dose ? HISTORY: Nicotine Dependence ? COMPARISON: CT lung screening 04/29/2023 ? TECHNIQUE: Axial, Coronal, and Sagittal images were created without the ?? administration of IV contrast material. Dose reduction techniques were ?? achieved ?? by using automated exposure control and/or adjustment of mA and/or kV ?? according ?? to patient size and/or use of iterative reconstruction technique. ? FINDINGS: ?? LUNGS: New spiculated, wispy opacity within right lower lobe posterior basilar ? segment, 1.9 cm. There are 3 new irregular/spiculated opacities within ?? posterior left lung base within or near the costophrenic angle; the largest 2 ?? are 1.4 cm and 1.3 cm. Multiple nonspecific small pleural-based nodules and ?? wispy opacities scattered within the lungs; grossly stable. ?? PLEURA: No mass, effusion, or pneumothorax. ?? VASCULATURE: No abnormality. ?? ROSMERY: Calcified lymph nodes suggestive of chronic granulomatous disease. ?? MEDIASTINUM: No mass or pathologic adenopathy. ?? CARDIAC: No enlargement, pericardial thickening, or pericardial effusion. ?? Coronary Artery calcifications: ?? AORTA: No aneurysm or dissection. ?? CHEST WALL: No mass or axillary adenopathy ?? BONES: No bone lesion or fracture. ?? LIMITED ABDOMEN: No suspicious findings. Limited images of the upper abdomen. ?? OTHER: Negative. ? CT/CT lung screening low-dose ?? IMPRESSION: ? 1. Lung-RADS Category 4A- Suspicious. Findings for which additional diagnostic ? testing and/ or tissue sampling is recommended. 3 month LDCT; PET/CT may be ?? used when there is a >= 8 mm solid component. 2. The new findings may represent infectious infiltrates. Follow-up CT chest ?? in ?? 3 months is recommended. ? Electronically authenticated by: DEVEN ??WHITNEY ?? Date: 09/08/2024 ??05:49 ? Dictated By: ?Deven Booth M.D. ? Signed By: ?09/08/24 0551 ? DD/ 0549 ? TD/TT: ? Gallery Host: Procedure Note Radiology, Radiologist, - 09/08/[address] [address] [address] Scan Report Signed Patient: SAM KRAMER KMR#: [id number] : 1960Acct:[id number] Age/Sex: 64 / MADM Date: 09/06/24 Loc: CT Attending Dr: Jameson White D.O. Ordering Physician: Jameson White D.O. Date of Service: 09/06/24 Procedure(s): CT lung screening low-dose Accession Number(s): [id number] cc: Azul Quezada NP [place] [id number] Patient Name: SAM KRAMER MRN: [id number] date: 1960 Sex: M Assigned Patient Location: CT Current Patient Location: Accession/Order Number: [id number] Exam Date: 09/06/2024 14:22 Report Date: 09/08/2024 [...] M.D. Signed By:09/08/24 0551 DD/ 0549 TD/TT: Gallery Host: Authorizing ProviderResult TypeResult StatusGeneric External Data Provider [facility]IS[facility]NC IMAGINGFinal Result documented in this encounter Visit Diagnoses Not on filedocumented in this encounter Care Teams Team MemberRelationshipSpecialtyStart DateEnd Date Kiko Zurita MD PCP - GeneralFamily Medicine10/24/23 Azul Quezada NP [address] [place] [address] PCP - ACO Reach10/29/24 Azul Quezada NP Referring PhysicianNurse Practitioner04/07/23documented as of this encounter
--- OUTSIDE RECORDS SUMMARY | 2025-07-23 08:24 | XMS_ITS | Patient Health Record ---
Author Organization [facility] in [place] Address [address] [place] [address] Care Team Providers Care Aviation Electronic Warfare Operator Name Role Phone Azul Quezada CNP Primary Care Provider Unavail able Jameson White Unavailable [phone] Allergies No Known Allergies Results Component Value Reference Range Notes HEMOGLOBIN Reviewed date:10/26/2024 07:27:51 AM Interpretation: Performing Lab: Notes/Report: [facility] , Hemoglobin 14.8 14.0-18.0 g/dL Performing Lab:see noteML - [facility] LBCT chest wo con Reviewed date:12/07/2024 02:32:11 PM Interpretation: Performing Lab: Notes/Report: Source Facility: [facility]-[address] [place] [address] [place] [address] [place] Scan Report Signed Patient: SAM KRAMER MR#: [id number] : 1960 Acct:[id number] Age/Sex: 64 / M ADM Date: 12/07/24 Loc: CT Attending Dr: Jameson White D.O. Ordering Physician: Jameson White D.O. Date of Service: 12/07/24 Procedure(s): CT chest wo con Accession Number(s): [id number] cc: Azul Quezada NP [place] [address] Patient Name: SAM KRAMER MRN: [id number] date: 1960 Sex: M Assigned Patient Location: CT Current Patient Location: CT Accession/Order Number: [id number] Exam Date: 12/07/2024 13:12 Report Date: 12/07/2024 13:15 At the request of: JAMESON WHITE Procedure: CT chest wo con CT CHEST [...] Marsh Jr., D.O.12/07/2024 1:15 PM Dictation Location: [place] [address] Electronically authenticated by: [id number] Y Date: 12/07/2024 13:15 Dictated By: [employer] Marsh M.D. Signed By: 12/07/248 DD/ 14 TD/TT: Drencher:CT Chest Low Dose for Screening* Reviewed date:09/08/2024 07:34:23 AM Interpretation: Performing Lab: Notes/Report: CT lung screening low-dose Reviewed date:09/08/2024 07:39:04 AM Interpretation: Performing Lab: Notes/Report: Source Facility: [place] [address] CT Scan Report Signed Patient: SAM KRAMER MR#: [id number] : 1960 Acct:[id number] Age/Sex: 64 / M ADM Date: 09/06/24 Loc: CT Attending Dr: Jameson White D.O. Ordering Physician: Jameson White D.O. Date of Service: 09/06/24 Procedure(s): CT lung screening low-dose Accession Number(s): [id number] cc: Azul Quezada NP [place] [address] Patient Name: SAM KRAMER MRN: [id number] date: 1960 Sex: M Assigned Patient Location: CT Current Patient Location: Accession/Order Number: [id number] Exam Date: 09/06/2024 14:22 Report Date: 09/08/2024 [...] Booth M.D. Signed By: 09/08/2451 DD/ TD/TT: Drencher:CT Chest w/o contrast Reviewed date:12/07/2024 01:48:27 PM Interpretation: Performing Lab: Notes/Report: Reason For Referral No Information Medications Medication SIG (Take, Route, Frequency, Duration) Notes Start Date End Date Status hydrOXYzine HCl 25 MG TAKE 1 TO 2 TABLET S BY MOUTH EVERY 8 HOURS NEEDED FOR ANXIETY for up to TEN days Oral; Duration: 10 Days ActiveIpratropium-Albuterol 0.5-2.5 (3) MG/3ML3mL Inhalation 6 times a day; Duration: 90 daysActiveFLUoxetine HCl 20 MG1 tablet Oral; Duration: 30 days ActiveAlbuterol Sulfate HFA 108 (90 Base) MCG/ACT 2 puffs as needed for SOB Inhalation Q4H; Duration: 90 days Dispense #3 inhalers ActiveSpiriva Respimat 2.5 MCG/ACT2 puffs Inhalation QDActiveBudesonide- Formoterol Fumarate 160-4.5 MCG/ACT 2 puffs as needed for SOB Inhalation Q4H Rinse after use ActivepredniSONE 5 MG 1 tablet Orally Once a day; Duration: 30 days Take with food 5ActiveAspirin Low Dose 81 MGTAKE 1 TABLET BY MOUTH ONCE DAILY Oral; Duration: 30 DaysActiveAtorvastatin Calcium 40 MGTAKE 1 TABLET BY MOUTH DAILY Oral; Duration: 30 DaysActive Immunizations Vaccine Route Administration Date Status Comme nts Abrysvo Unknown 08/30/2024 Administered Flu, Flucelvax (72103) 6 mos and older, single-dose syringe (8492-4683)Unknown 08/16/2024dministered Social History Tobacco Use: Social History Observation Description Date Details (start date - stop date) Former Smoker NA - NA Tobacco Control (Standard) Question Answer Notes Tobacco use: Former smoker How long has it been since you last smoked?1-5 yearsAdditional Findings: Tobacco xma-zqheJq-bxjon cigarette smoker (20-30/day) Problems Problem Type SNOMED Code ICD Code Onset Dates Problem Status W/U Status Risk Notes Problem Centrilobular emphysema (52380549) Centri lobular emphysema (J43.2) ActiveconfirmedPrior treatments: Symbicort 160 + Spiriva 2.5 > Stiolto, Advair, Trelegy & Breo (does not tolerate dry powder inhalers)ProblemLong-term current use of inhaled steroid (981034043)group home (current) use of inhaled steroids (Z79.51)ActiveconfirmedProblemLong-term current use of systemic steroid (203015580055464)group home (current) use of systemic steroids (Z79.52)Active confirmedProblemCannabis abuse (81406636)Marijuana abuse (F12.10)Activeconfirmed ProblemEx-tobacco user (finding) (537619402)History of tobacco abuse (Z87.891) Luwwkppgnudhpqk1csc x ~35 years, quit roblem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)Activeconfirmed Vital Signs Heart Rate 99 /min 03/14/2025 Cgfqinxxqht94.8 degrees Ufkrewjatt48/23/2025Respiratory Rate20 /min03/14/2025 Blood pressure pnuorgofe86 mm Hg03/14/20258454Kyijgxte84 %03/14/20250149Xligam03 in 03/14/2025lood pressure yhjhcsks924 mm Hg03/14/20253967Lhawkj972.8 lbs03/14/2025MI 26.68 kg/m203/14/2025 Procedures Procedure Date Ordered Date Performed Result Body Sit e PFT (87176, 36393, 77712) 10/12/2024 N/A Encounters Encounter Location Date Provider Diagnosis Pulmonary Medicine [place] [address] [place] [address] 12/07/2024 [facility] Pulmonary Medicine [address] [place] [place] [address]/09/2024 [facility] [address] [place] [place] [address] 07/26[facility]2024[facility] [address] [place] [place] [address]/[facility] [address] [facility] [place] [address]/[facility] [address] [place] [address]/[facility] [place] [address] [place] [place] [address]/[facility] SamsaCentrilobular emphysema J43.2 ; Multiple pulmonary nodules R91.8 ; Encounter for immunization Z23 ;Peripheral eosinophilia D72.19 ; History of tobacco abuse Z87.891 ; 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.51 and Encounter for screening for malignant neoplasm of respiratory organs Z12.2Pulmonary Medicine [address] [place] [address]/[facility] J43.2 ; Multiple pulmonary nodules R91.8 ; History of tobacco abuse Z87.891and group home (current) use of inhaled steroids Z79.51Pulmonary Medicine [place] [address] [place] [address]/[facility] SamsaCentrilobular emphysema J43.2 ; Multiple pulmonary nodules R91.8 ; History of tobacco abuse Z87.891; group home (current) use of inhaled steroids Z79.51 and Encounter for screening for malignant neoplasm of respiratory organs Z12.2Pulmonary Medicine [address] [place] [address]/[facility] Samsa Centrilobular emphysema J43.2 ; History of tobacco abuse Z87.891 ; group home (current) use of systemic steroids Z79.52 and 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 Initial paperwork was signed. Ygcb-rk-fmtb encounter performed with the patient to document continued need for a nebulizer with nebulized medications. -Current nebulized medications: DuoNeb, anticipating Ohtuvayre -Recommendations: Ohtuvayre is only administered via nebulizer. Renew, refill, reorder nebulizer and supplies. 08/17/2024Multiple pulmonary nodules (ICD-10 - R91.8) Will be monitored via LDCT. 5Centrilobular emphysema (ICD-10 - J43.2) Prior treatments: Symbicort [...] feels he needs to start something sooner. 10/12/2024Multiple pulmonary nodules (ICD-10 - R91.8) LDCT 09/06/2024 showed new RLL opacity at 1.9cm and 3 LLL opacities largest 1.4cm. Overall, I suspect this is inflammatory or infectious in nature, but given his smoking history, cannot rule out neoplasm. He was scored RADS-4A; ordering a 3-month follow-up chest CT without contrast to document stability, which would be due in mid November 2024. 12/14/2024entrilobular emphysema (ICD-10 - J43.2) Prior treatments: Symbicort [...] to reschedule as the PFT is needed tosee if he would qualify for certain programs and treatments (e.g. pulmonary rehabilitation, endobronchial valves). He remains symptomatic daily, using albuterol & DuoNeb multiple times throughout the day. He isat the point that he may benefit from daily systemic steroid use (Ohtuvayre could have possibly spared him from this). Discussed adverse effects of pen[facility]entiary systemic steroids including, but not limited to: increased risk of cataracts, elevated blood sugars/worsening of underlying diabetes mellitus, impaired wound healing, gastrointestinal ulcers, osteoporosis. Patient voiced he would hold off onprednisone for now, but will seriously consider it. Regarding work, as he is at the point to consider prednisone-dependency, and last PFT was 27% in 2019, discussed (again) looking into disability for COPD. He states he will contact them. F/U 3 months, or sooner PRN. 12/14/2024Multiple pulmonary nodules (ICD-10 - R91.8) LDCT 09/06/2024 showed new RLL opacity at 1.9cm and 3 LLL opacities largest 1.4cm. These have resolved on chest CT 12/07/2024. Will resume annual LDCT screening which will be due 11/2025. 03/14/2025entrilobular emphysema (ICD-10 - J43.2) Prior treatments: Symbicort [...] for eosinophils, and he will need PFT. 03/14/2025History of tobacco abuse (ICD-10 - Z87.891)1ppd x ~35 years, quit 2021 1ppd x ~35 years, quit 2022. LDCT due 11/2025. 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 12/14/2024History of tobacco abuse (ICD-10 - Z87.891)1ppd x ~35 years, quit 2021 1ppd x ~35 years, quit 2022. Will resume annual LDCT screening beginning 11/2025. Do not restart smoking anything! 10/12/2024History of tobacco abuse (ICD-10 - Z87.891)1ppd x ~35 years, quit 2021 1ppd x ~35 years, quit 2022. Last LDCT 04/30/2023. LDCT was due 04/2024 but not done for some reason. Patient voiced he still wants it done, so rescheduled it to be due now. 08/17/2024Encounter for immunization (ICD-10 - Z23) Discussed pulmonary-related vaccines today which involved shared clinical decision-making with the patient. -Influenza: Annual influenza vaccination is recommended. Explained that influenza can sometimes be fatal, especially in patients with underlying lung disease. Influenza vaccination is recommended forall people. He got it yesterday. -Pneumococcal: Reviewed the patient's pneumococcal vaccination record. The CDC currently recommendsPCV-20 vaccination regardless of past pneumococcal vaccinations. Rx [...] any Tdap vaccine is acceptable). Rx sent forBoostrix. -COVID-19: This is the most contentious vaccine. There are case reports of serious adverse events with the COVID-19 vaccines. There are risks with roberto COVID-19 as well, with the potential fordeath. I explained that the CDC recommends vaccination with boosters and I deferred the choice to the patient. 4Peripheral eosinophilia (ICD-10 - D72.19) Previously had elevated eosinophils, but none present on CBC 07/06/2024 = 0.1% / abs. ct. zero. He is therefore not a Dupixent candidate. 10/12/2024Long term (current) use of inhaled steroids (ICD-10 - Z79.51) Patient was counseled to rinse & gargle with water after inhaled corticosteroid use. 12/14/2024Long term (current) use of inhaled steroids (ICD-10 - Z79.51) Patient was counseled to rinse & gargle with water after inhaled corticosteroid use. 03/14/2025Long term (current) use of inhaled steroids (ICD-10 - Z79.51) Patient was counseled to rinse & gargle with water after inhaled corticosteroid use. 12/14/2024Encounter for screening for malignant neoplasm of respiratory [...] on smoking cessation/continued tobacco abstinence. Due 11/2025. 08/17/2024History of tobacco abuse (ICD-10 - Z87.891)1ppd x ~35 years, quit 2021 1ppd x ~35 years, quit 2022. Last LDCT 04/30/2023. LDCT was due 04/2024 but not done for some reason. Patient voiced he still wants it done, so rescheduled it to be due now. 08/17/2024Long term (current) use of inhaled steroids (ICD-10 - Z79.51) Patient was counseled to rinse & gargle with water after inhaled corticosteroid use. 08/17/2024Encounter for screening for malignant neoplasm of respiratory [...] was due 04/2024. Rescheduled it for now. 08/17/2024Other Counseled not to smoke anything. 10/12/2024Other Counseled not to smoke anything. 12/14/20248079Oaepg79/23/2025Other Plan Of Treatment Pending Test Test Name Order Date PFT (00219, 95700, 32000) 10/12/2024 Insurance Providers Payer Name Payer Address Payer Phone Subscriber Number Group Number Insured Name Patient Relationship to Insured Coverage Start Date Coverage End Date MEDIC[place] [address] [place] [address] [id number] Marco Antonio Kramer - patient is the [id number] 1993 Medical (General) History Medical History History ICD Code Centrilobular emphysema J43.2 Allergic rhinitis J30.9 Bilateral carotid artery stenosis I65.23 Calcified lymph nodes I89.8 Depression with anxiety F41.8 Marijuana abuse F12.10 Peripheral eosinophilia D72.19 Tourette's F95.2 Osteoarthritis M19.90 Multiple pulmonary nodules R91.8 Vertebral artery occlusion, 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
--- OUTSIDE RECORDS SUMMARY | 2025-07-23 08:24 | XMS_ITS | Clinical Summary ---
Author Organization [facility] Address [address] [place] [address] Care Team Providers Care Shank Sander Name Role Phone Azul Quezada SENIOR CONSTRUCTION ESTIMATOR Unavailable [phone] Kiko Zurita MD Primary Care Provider [phone] Azul Quezada SENIOR CONSTRUCTION ESTIMATOR Unavailable [phone] Allergies Active AllergyReactionsCriticalityNoted DateCommentsBee BrhzfYvgktfh23/18/2020 Medications MedicationSigDispense QuantityRefillsLast FilledStart DateEnd DateStatus albuterol (2.5 MG/3ML) 0.083% nebulizer solution Take 2.5 mg by nebulization 4 (four) times a day as needed for wheezingActive albuterol HFA 90 mcg/act inhaler Inhale 2 puffs every 4 (four) hours if needed for wheezingActive tiotropium (Spiriva Respimat) 2.5 MCG/ACT inhaler Inhale 2 puffs in the morning.Active triamcinolone (Nasacort) 55 MCG/ACT nasal inhaler Administer 2 sprays into each nostril in the morning.Active aspirin 81 MG EC tablet Take 81 mg by mouth in the morning.Active budesonide-formoterol (Symbicort) 160-4.5 MCG/ACT inhaler Inhale 2 puffs in the morning and 2 puffs before bedtime. Rinse mouth with water after use to reduce aftertaste and incidence of candidiasis. Do not swallow.. Active ipratropium-albuterol (Duo-Neb) 0.5-2.5 mg/3 mL nebulizer solution Take 3 mL by nebulization in the morning and 3 mL at noon and 3 mL in the evening and 3 mL before bedtime.4Active EPINEPHrine (Epipen) 0.3 MG/0.3ML injection syringe Inject 1 Syringe as directed 1 (one) time05/30/2024ctive Ensifentrine (Ohtuvayre) 3 MG/2.5ML suspension every 12 (twelve) hours08/17/2024ctive ipratropium (Atrovent) 0.02 % nebulizer solution 2.5 mL inhaled via nebulizer every 8 hours As Needed for shortness of breath or zxajzmir04/06/2025Active atorvastatin (Lipitor) 40 MG tablet Indications:Mixed hyperlipidemiaTake 1 tablet (40 mg) by mouth in the evening 90 tablet 5Active FLUoxetine (PROzac) 20 MG capsule Indications:Depression with anxietyTake 1 capsule (20 mg) by mouth Daily 90 capsule tive traZODone (Desyrel) 50 MG tablet Indications:Insomnia, unspecifiedTake 1 tablet (50 mg) by mouth at bedtime 90 tablet tive losartan (Cozaar) 25 MG tablet Take 25 mg by mouth Daily5Active predniSONE (Deltasone) 10 MG tablet TAKE 1 TABLET BY MOUTH THREE TIMES DAILY FOR 4 DAYS, then TAKE 1 TABLET BY MOUTH TWICE DAILY FOR 4 DAYS, then TAKE 1 TABLET BY MOUTH DAILY FOR 4 DAYS05/11/2025 Active Active Problems ProblemNoted DateDiagnosed DateElevated tuzipbs9505/17/2025Pain of right hip 05/17/2025 Assessment & Plan (05/17/2025 5:24 PM EDT): Check 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 Great job Rising PSA level06/01/2024 Overview (09/07/2024): 02/2022: 0.86 04/2024: 1.91 09/07/24: 1.0 Screening for prostate ijsrfj2405/19/2024 Overview (06/01/2024): PSA: 05/31/24 1.91, 04/29/23 0.94, 03/06/2022 0.86, 05/11/20 0.79 Sessile colonic polyp05/19/2024 Assessment & Plan (08/16/2024 7:27 AM EST): Has been referred to [facility] for colonoscopy Right hand pain05/19/2024 Assessment & Plan (05/19/2024 3:10 PM EDT): Offered xray he declines Will just monitor at this time Overweight (BMI 25.0-29.9)12/15/2023Encounter for subsequent annual wellness visit (AWV) in Medicare tmbyjuk9011/13/2023 Assessment & Plan (11/16/2024 7:09 AM EST): [...] up yearly and prn Polyp of vocal cord10/30/2023Tourette's010/30/2023 Assessment & Plan (05/17/2025 6:52 AM EDT): No current med use for this Ibhhspwf39/08/2024 Assessment & Plan (08/16/2024 7:22 AM EST): Continue with trazodone Multiple pulmonary gdqnvws8110/30/2023entrilobular ardyrmxip39/08/2024 Assessment & Plan (05/17/2025 6:54 AM EDT): 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, 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 and needs a referral to [facility] [...] have asked the pt to contact his thread spinner for management of this exacerbation He states [...] as well as current inhalers Vertebral artery jqfoaikuo09/08/2024ilateral carotid artery zsnesuxm87/08/2024 Assessment & Plan (05/17/2025 6:54 AM EDT): [...] active symptoms at this time Degenerative cervical disc10/30/20233986Sfmnjtqsfehjxj84/08/2024alcified lymph nodes10/30/2023Vocal cord polyp10/30/2023epression with pkxhmjr1110/30/2023 Assessment & Plan (05/17/2025 6:56 AM EDT): [...] doses Is stable at this time Allergic mzznaeeh94/08/2024Marijuana abuse10/30/2023MI 26.0-26.9,adult 10/30/20230708Vuancn20/01/2020Mixed jbngdddrdfjpom13/29/2020 Assessment & Plan (11/13/2023 11:39 AM EST): Continue statin CVA (cerebral vascular accident)06/10/2020 Assessment & Plan (02/15/2025 7:18 AM EDT): No focal weakness Continues as directed by neurology Assessment & Plan (11/16/2024 7:05 AM EST): No focal weakness Continues as directed by neurology Assessment & Plan (08/16/2024 7:24 AM EST): No focal weakness Continues as directed by neurology Internal carotid artery stenosis, right06/10/2020COVID-19109/22/2018 Resolved Problems ProblemNoted DateDiagnosed DateResolved DateColon polyp Papule of skin/5209Zwjgfmjua45 Assessment & Plan (10/30/2023 11:06 AM EST): Continues to slowly improve, recommend flu shot pt did not get this Fatigue remains, will see back in office in 2 weeks and remains off work Eenyta47 Assessment & Plan (08/16/2024 7:25 AM EST): The patient has been advised of the risks of continued smoking: stroke, SC, all forms of cancer, lung disease, and . Options for quitting smoking include: cold turkey, hypnosis, acupuncture, nicotine replacement meds(gum, lozenges, and patches), Buproprion, and Varenicline. At this time pt is encouraged to evaluate their goals for wanting to quit smoking, and reach out toprovider when ready to start this process Encounters DateTypeDepartmentCare HvjzMpezjwazqjv09/26/2025 3:20 PM EDTOffice Visit [facility] [address] [place] [address] Azul Quezada NP Centrilobular emphysema (HCC) (Primary Dx); Tourette's ; Bilateral carotid artery stenosis; Rising PSA level; Mixed hyperlipidemia ; Depression with anxiety; Former smoker; Elevated glucose; Pain of right hip05/17/2025amboo flowsheet [facility] [address] [place] [id number] Azul Quezada NP 05/13/2025Patient Outreach [facility] [address] [place] [address] Angy Samayoa LPN 05/11/2025bstract [facility] [address] [place] [address] Azul Quezada NP 05/10/2025bstract [facility] [address] [facility] [place] [address] Azul Quezada NP from Last 3 Months Immunizations ImmunizationAdministration DatesNext DueABRYSVO - Respiratory syncytial virus (RSV), vaccine, bivalent, protein subunit RSV prefusion F, diluent reconstituted, 0.5 mL, PF08/30/2024Influenza, High Dose Seasonal, Preservative Free08/04/2019Influenza, injectable, MDCK, preservative free, quadrivalent 08/16/2024Influenza, injectable, quadrivalent, preservative free07/05/2015 Influenza, live, intranasal, kiglhekeqljm52/01/2020 Family History Medical HistoryRelationNameCommentsHeart attackFatherAsthmaMotherDiabetesMother HypertensionMotherRelationNameStatusCommentsFatherMother Social History Tobacco UseTypesPacks/DayYears UsedDateSmoking Tobacco: QuntomKydmogetgi841 03/1984 - 03/2019Smokeless Tobacco: Never Tobacco Cessation:Counseling Given: No Alcohol UseStandard Drinks/WeekCommentsYes1 (1 standard drink = 0.6 oz pure alcohol)coffee more than 4 cups per dayHumiliation, Afraid, Rape, and Kick questionnaireAnswerDate RecordedWithin the last year, have you been afraid of your partner or ex-partner?No11/13/2023Within the last year, have you been humiliated or emotionally abused in other ways by your partner or ex-partner?No 11/13/2023Within the last year, have you been kicked, hit, slapped, or otherwise physically hurt by your partner or ex-partner?No11/13/2023Within the last year, have you been raped or forced to have any kind of sexual activity by your part ner or ex-partner?No11/13/2023Social Connection and Isolation PanelAnswerDate RecordedIn a typical week, how many times do you talk on the phone with family, friends, or neighbors?More than three times a week11/13/2023How often do you get together with friends or relatives?More than three times a week11/13/2023How often do you attend evangelical or scientology services?Never11/13/2023o you belong to any clubs or organizations such as evangelical groups, unions, fraternal or athletic groups, or school groups?Yes11/13/2023How often do you attend meetings of the clubs or organizations you belong to?More than 4 times per year11/13/2023re you , , , , never , or living with a partner? Wdmmhac2811/13/2023UDIT-CAnswerDate RecordedQ1: How often do you have a drink containing alcohol?Never11/13/2023Q2: How many drinks containing alcohol do you have on a typical day when you are drinking?Patient does not drink11/13/2023Q3: How often do you have six or more drinks on one occasion?Never11/13/2023Overall Financial Resource Strain (CARDIA)AnswerDate RecordedHow hard is it for you to pay for the very basics like food, housing, medical care, and heating?Not hard at all11/13/2023HQ-2AnswerDate RecordedPatient Health Questionnaire-2 Score2 11/16/2024FinSelect [facility] of Occup[facility] - Occupational Stress QuestionnaireAnswerDate RecordedDo you feel stress - tense, restless, nervous, or anxious, or unable to sleep at night because yourmind is troubled all the time - these days?Only a wuxvzk3011/13/2023Exercise Vital SignAnswerDate Recorded On average, how many [...] or from getting things needed for daily living?No11/13/2023Housing Stability Vital SignAnswerDate RecordedIn the last 12 months, was there a time when you were not able to pay the mortgage or rent on time?No11/13/2023In the last 12 months, how many places have you lived?1 11/13/2023In the last 12 months, was there a time when you did not have a steady place to sleep or slept in ashelter (including now)?No11/13/2023Sex and Gender InformationValueDate RecordedSex Assigned at BirthNot on fileLegal SexMale 12/04/2022 6:45 PM EDTGender IdentityNot on fileSexual OrientationNot on file Last Filed Vital Signs Vital SignReadingTime TakenCommentsBlood Fzebitll824/7608/ 3:38 PM EDT Ndlkv016405/17/2025 3:38 PM IKSIwxxesatxjp16.6 ??C (97.8 ??F)05/17/2025 3:38 PM EDTRespiratory Bpyr883505/17/2025 3:38 PM EDTOxygen Hmfwzyqcir52%05/17/2025 3:38 PM EDTInhaled Oxygen Concentration--Hhzbki45.8 kg (211 lb 3.2 oz)05/17/2025 3:38 PM YOCPrtuad515.4 cm (6' 1 )08/16/2024 1:20 PM ESTBody Mass Index27.8608/16/2024 1:20 PM EST Plan of Treatment Health MaintenanceDue DateLast DoneCommentsCT Iayhhpeiztaq1960FIT-DNA 1960FIT1960FOBT1960Lung Cancer Screening Shared Decision Lhrctk28 1960 6727Zahmpqjiadihp1960Pneumococcal Vaccine: 65+ Years (1 of 2 - PCV)1979Influenza Vaccine (#1)5110/16/2023, 2020, 08/04/2019, Additional history existsMedicare Annual Wellness (AWV)11/16/2025 11/16/2024, 11/13/2023, 9126Ceohhzpqxbe81/24/202909/olorectal Cancer Etsrxvypq83/24/2029 Insurance Care Teams Team MemberRelationshipSpecialtyStart DateEnd Date Kiko Zurita MD [facility] Azul Quezada NP [address] [place] [address] [facility] - [facility]10/29/24 Azul Quezada NP Referring PhysicianNurse [facility]04/07/23
--- NOTE | 2025-07-23 09:31 | ED.GENADUL1 ---
HPI HPI - General Adult General Chief complaint: Abdominal Pain Stated complaint: ABDOMINAL PAIN Time Seen by Provider: 07/23/25 07:09 Source: patient Mode of arrival: ambulance Limitations: no limitations History of Present Illness HPI narrative: cc - nausea and abd pain Pt complains that when he eats, his stomach feels bloated and then he becomes nauseous. Sometimes when he coughs, he vomits. He has COPD and told me I am always coughing . No chest pain. Intermittent shortness of breath - usually with exertion. He wears 2LPM NC O2 daily. No fever or chills. No flank pain or back pain. He has not altered his diet since the GI symptoms started. No diarrhea. No bood in urine or stool. Related Data Home Medications ?Medication ?Instructions ?Recorded ?Confirmed aspirin 81 mg tablet,delayed 81 mg PO DAILY previous stroke 09/21/23 07/23/25 release atorvastatin 40 mg tablet 40 mg PO .qhs 09/21/23 07/23/25 trazodone 50 mg tablet 50 mg PO .QHS 09/21/23 07/23/25 fluoxetine 20 mg capsule 20 mg PO DAILY 05/09/25 07/23/25 Previous Rx's ?Medication ?Instructions ?Recorded albuterol sulfate 90 mcg/actuation 2 inh inhalation Q4H PRN shortness 05/11/25 aerosol inhaler of breath or wheezing #1 g fluticasone 250 mcg-salmeterol 50 1 inh inhalation BID #60 ea 05/11/25 mcg/dose blistr powdr for inhalation (Advair Diskus) ipratropium 0.5 mg-albuterol 3 mg 3 ml inhalation Q4H PRN shortness 05/11/25 (2.5 mg base)/3 mL nebulization of breath or wheezing #180 mL soln losartan 25 mg tablet 25 mg PO DAILY #30 tabs 05/11/25 hyoscyamine sulfate 0.125 mg 0.125 mg PO Q6H PRN abdominal pain 07/23/25 sublingual tablet (Levsin/SL) #20 tabs ondansetron 4 mg disintegrating 4 mg PO Q6H PRN nausea and 07/23/25 tablet vomiting #20 tabs polyethylene glycol 3350 17 17 g PO DAILY 4 days #68 grams 07/23/25 gram/dose oral powder (Miralax) Allergies Allergy/AdvReac Type Severity Reaction Status Date / Time bee venom protein (honey bee) Allergy Severe Anaphylaxis Verified 05/09/25 02:29 Opioid HPI Opioid Management Most Recent Opioid Data: Last Pain Scale 0 05/11/25, 09:02 Last ORT Total Score 3 05/09/25, 05:53 Last ORT Risk Category Low Risk 05/09/25, 05:53 [facility] Medical History (Updated 07/23/25 @ 09:37 by Baltazar Gil) History of common carotid artery stent placement ?Z98.890 - Other specified postprocedural states (ICD-10) ?Z95.828 - Presence of other vascular implants and grafts (ICD-10) 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 - Polyp of vocal cord and larynx (ICD-10) Vertebral artery occlusion ?I65.09 - Occlusion and stenosis of unspecified vertebral artery (ICD-10) Tourette's ?F95.2 - Tourette's disorder (ICD-10) Testicle lump ?N50.89 - Other specified disorders of the male genital organs (ICD-10) Rheumatic fever ?I00 - Rheumatic fever without heart involvement (ICD-10) Pigmented skin lesion of uncertain nature ?L81.9 - Disorder of pigmentation, unspecified (ICD-10) Papule of skin ?R23.8 - Other skin changes (ICD-10) Osteoarthritis ?M19.90 - Unspecified osteoarthritis, unspecified site (ICD-10) Neck mass ?R22.1 - Localized swelling, mass and lump, neck (ICD-10) Multiple pulmonary nodules ?R91.8 - Other nonspecific abnormal finding of lung field (ICD-10) Marijuana abuse ?F12.10 - Cannabis abuse, uncomplicated (ICD-10) Insomnia ?G47.00 - Insomnia, unspecified (ICD-10) Degenerative cervical disc ?M50.30 - Other cervical disc degeneration, unspecified cervical region (ICD-10) CVA (cerebral vascular accident) ?I63.9 - Cerebral infarction, unspecified (ICD-10) COVID-19 ?U07.1 - COVID-19 (ICD-10) Centrilobular emphysema ?J43.2 - Centrilobular emphysema (ICD-10) Calcified lymph nodes ?I89.8 - Other specified noninfective disorders of lymphatic vessels and lymph nodes (ICD-10) Bilateral carotid artery stenosis ?I65.23 - Occlusion and stenosis of bilateral carotid arteries (ICD-10) Allergic rhinitis ?J30.9 - Allergic rhinitis, unspecified (ICD-10) Alcohol abuse ?F10.10 - Alcohol abuse, uncomplicated (ICD-10) Anxiety ?F41.9 - Anxiety disorder, unspecified (ICD-10) Cerebrovascular disease ?I67.9 - Cerebrovascular disease, unspecified (ICD-10) COPD (chronic obstructive pulmonary disease) ?J44.9 - Chronic obstructive pulmonary disease, unspecified (ICD-10) Depression, unspecified ?F32.A - Depression, unspecified (ICD-10) Dyslipidemia ?E78.5 - Hyperlipidemia, unspecified (ICD-10) 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 - Other diseases of vocal cords (ICD-10) Surgical History (Updated 06/08/24 @ 11:14 by Lidia Fontanez) History of vocal cord polypectomy ?Z98.890 - Other specified postprocedural states (ICD-10) H/O adenoidectomy ?Z90.89 - Acquired absence of other organs (ICD-10) History of tonsillectomy ?Z90.89 - Acquired absence of other organs (ICD-10) Family History (Updated 06/15/24 @ 06:35 by Cira Palacio RN) Mother Family history of CHF (congestive heart failure) Family history of COPD (chronic obstructive pulmonary disease) Hypertension Sister Family history of diabetes mellitus Father Family history of cancer Other Family history of myocardial infarction Social History (Updated 05/09/25 @ 06:12 by Silvana Kirkpatrick RN) Within the past year, how often did you have a drink containing alcohol: never Within the past year, how often did you have six or more drinks on one occasion: never Score interpretation: A score less than 4 is consistent with normal alcohol consumption. Smoking status: Former smoker Second hand tobacco smoke exposure: No Non-prescribed substance use: cannabis (any form) Previous occupational history: retired Known occupational exposures/hazards: No Highest level of school completed/degree received: high school graduate Are you now , , , , never or living with a partner: living with partner In a typical week, how many times do you talk on the telephone with family, friends, or neighbors: 3 or more times per week How often do you get together with friends or relatives: 3 or more times per week How often do you attend taoist or mosque services: 1-3 times per year Do you belong to any clubs or organizations such as taoist groups unions, fraternal or athletic groups, or school groups: no Total score: 2 Score interpretation: A score of greater than or equal to 2 indicates the lowest level of social isolation. Little interest or pleasure in doing things: not at all Feeling down, depressed, or hopeless: not at all Feel stressed/tense/nervous/anxious/difficulty sleeping: not at all Due to disability, difficulty making decisions: No Do you think of yourself as: straight/heterosexual Gender Identity: male Exam Narrative Exam Narrative: Nurses notes and vital signs reviewed and patient is not hypoxic. afebrile General: Well-appearing and in no apparent distress. Skin: Warm, dry, no pallor noted. Eye: Pupils are equal, round and EOMI. No scleral icterus. Ears, Nose, Mouth, and Throat: Oral mucosa is moist Cardiovascular: Regular Rate and Rhythm without murmur, gallop or rub. Respiratory: No accessory muscle use or respiratory distress. Lungs are clear to auscultation, no wheezing, rales or rhonchi Back: No CVA tenderness Musculoskeletal: normal ROM, no calf or popliteal tenderness, no lower extremity edema/swelling GI: Abdomen is soft, obese but non-distended. Normal bowel sounds. No masses appreciated. He has an umbilical hernia which is soft and easily reducible. No tenderness to palpation. No rebound, guarding, or rigidity noted. Neurological: A&O x4. No cranial nerve dysfunction observed. No truncal ataxia. Moves all extremities. Sensation intact. Psychiatric: Cooperative and interactive. Normal mood and affect. Constitutional Vital Signs, click to edit/add: Last Vital Signs Pulse 90 07/23/25 07:05 Resp 22 H 07/23/25 07:05 Pulse Ox 97 07/23/25 07:05 O2 Del Method Nasal Cannula 07/23/25 07:05 O2 Flow Rate 2 07/23/25 07:05 Course Vital Signs Vital signs: Vital Signs Pulse Rate 90 07/23/25 07:05 Respiratory Rate 22 H 07/23/25 07:05 Pulse Oximetry 97 07/23/25 07:05 Oxygen Delivery Method Nasal Cannula 07/23/25 07:05 Oxygen Delivery Flow Rate 2 07/23/25 07:05 Pulse Rate 90 07/23/25 07:05 Respiratory Rate 22 H 07/23/25 07:05 Pulse Oximetry 97 07/23/25 07:05 Oxygen Delivery Method Nasal Cannula 07/23/25 07:05 Oxygen Delivery Flow Rate 2 07/23/25 07:05 Medical Decision Making MDM Narrative Medical decision making narrative: Patient was placed on court monitor and EKG obtained. Blood drawn and sent for evaluation. Portable chest x-ray obtained to evaluate his persistent cough. CT abdomen pelvis also obtained to evaluate his GI symptoms. Blood testing was essentially unremarkable with a normal white blood cell count, negative lipase, negative LFTs. EKG was normal and troponin and BNP were negative. Chest x-ray did not reveal any acute cardiopulmonary disease, per radiologist report. CT scan of the abdomen pelvis was read by the radiologist as negative with mild to moderate stool retention but no other focal findings such as obstruction or other inflammatory process. Patient was informed of results and given reassurance. He was discharged home with prescription for MiraLAX to help with stool passage and Levsin to take for any pain. He was given Zofran IV in the emergency department and was discharged home with a prescription for additional Zofran to manage any nausea. ED return if he worsens. Otherwise he can follow-up with his primary care provider Lab Data Lab results reviewed: Yes I reviewed the patient's lab results Labs: Lab Results 07/23/25 Range/Units 07:24 WBC 10.6 (4.0-11.0) 10^3/uL RBC 4.06 L (4.70-6.10) 10^6/uL Hgb 12.1 L (14.0-18.0) g/dL Hct 38.4 L (42.0-54.0) % MCV 94.6 H (80.0-94.0) fL MCH 29.8 (25.9-34.0) pg MCHC 31.5 (29.9-35.2) g/dL RDW 12.4 (11.0-15.0) % Plt Count 409 (150-450) 10^3/uL MPV 9.2 L (9.5-13.5) fL Neut % (Auto) 80.6 H (43.0-75.0) % Lymph % (Auto) 10.0 L (20.5-60.0) % Callahan % (Auto) 8.1 (1.7-12.0) % Eos % (Auto) 0.0 L (0.9-7.0) % Baso % (Auto) 0.6 (0.2-2.0) % Neut # (Auto) 8.5 H (1.4-6.5) 10^3/uL Lymph # (Auto) 1.1 L (1.2-3.8) 10^3/uL Callahan # (Auto) 0.9 H (0.3-0.8) 10^3/uL Eos # (Auto) 0.0 (0.0-0.7) 10^3/uL Baso # (Auto) 0.1 (0.0-0.1) 10^3/uL Abs Immat Gran (auto) 0.07 H (0.00-0.03) 10^3/uL Imm/Tot Granulo (auto) 0.7 H (0.0-0.5) % Sodium 140 (136-145) mmol/L Potassium 4.0 (3.5-5.1) mmol/L Chloride 104 (98-107) mmol/L Carbon Dioxide 29.0 (21.0-32.0) mmol/L Anion Gap 11.0 BUN 12.0 (7.0-18.0) mg/dL Creatinine 0.71 (0.70-1.30) mg/dL Est GFR ( Amer) >60 (>=60 mL/min/1.73m^2) Est GFR (Non-Af Amer) >60 (>=60 mL/min/1.73m^2) BUN/Creatinine Ratio 16.9 Glucose 95 (74-106) mg/dL Calcium 9.2 (8.5-10.1) mg/dL Total Bilirubin 0.7 (0.2-1.0) mg/dL AST 39 H (15-37) U/L ALT 33 (16-63) U/L Alkaline Phosphatase 80 (46-116) U/L Troponin I High Sens 7.1 (4.0-76.1) pg/mL NT-Pro-B Natriuret Pep 73.0 (<=900.0) pg/mL Total Protein 6.8 (6.4-8.2) g/dL Albumin 3.3 L (3.4-5.0) g/dL Globulin 3.5 g/dL Albumin/Globulin Ratio 0.9 Lipase 19.0 (16.0-77.0) U/L Imaging Data CXR, CT Abd/pelvis: Attestation: I have reviewed the pertinent imaging results. Radiologist's impression: ITS Impressions Chest X-Ray 07/23/25 07:09 IMPRESSION: NEGATIVE ACUTE PLEURAL-PARENCHYMAL DISEASE. Impression dictated by: Everette Méndez M.D. 07/23/2025 9:08 AM Dictation Location: [facility] Electronically authenticated by: [id number] Y Date: 07/23/2025 09:08 Abdomen/Pelvis CT 07/23/25 07:11 IMPRESSION: Negative acute inflammatory process or bowel obstruction. Impression dictated by: Everette Méndez M.D. 07/23/2025 9:21 AM Dictation Location: [email or web address] Electronically authenticated by: [id number] Y Date: 07/23/2025 09:21 ECG Data Attestation: I personally reviewed and interpreted this ECG as follows: Interpretation: EKG interpretation:Emergency Department physician interpretation.Normal sinus rhythm at 83bpm.Normal axis, normal intervals and no ST segment elevation or depression. Normal EKG. Discharge Plan Discharge Chief Complaint: Abdominal Pain Clinical Impression: Abdominal pain, Acute exacerbation of chronic obstructive pulmonary disease Patient Disposition: Home, Self-Care Time of Disposition Decision: 09:37 Prescriptions / Home Meds: New polyethylene glycol 3350 [Miralax] 17 gram/dose powder 17 g PO DAILY 4 Days Qty: 68 0RF ondansetron 4 mg tablet,disintegrating 4 mg PO Q6H PRN (Reason: nausea and vomiting) Qty: 20 0RF hyoscyamine sulfate [Levsin/SL] 0.125 mg tablet, sublingual 0.125 mg PO Q6H PRN (Reason: abdominal pain) Qty: 20 0RF No Action atorvastatin 40 mg tablet 40 mg PO .qhs trazodone 50 mg tablet 50 mg PO .QHS aspirin 81 mg tablet,delayed release (DR/EC) 81 mg PO DAILY fluoxetine 20 mg capsule 20 mg PO DAILY fluticasone propion-salmeterol [Advair Diskus] 250-50 mcg/dose blister with device 1 inh inhalation BID Qty: 60 3RF albuterol sulfate 90 mcg/actuation HFA aerosol inhaler 2 inh INHALATION Q4H PRN (Reason: shortness of breath or wheezing) Qty: 1 3RF ipratropium-albuterol 0.5 mg-3 mg(2.5 mg base)/3 mL solution for nebulization 3 ml inhalation Q4H PRN (Reason: shortness of breath or wheezing) Qty: 180 3RF losartan 25 mg tablet 25 mg PO DAILY Qty: 30 2RF Print Language: Romanian Instructions: COPD (Chronic Obstructive Pulmonary Disease) (ED), Abdominal Pain (ED) Referrals: Azul Quezada COATING INSPECTOR [Primary Care Provider, Family Practice] - 1 week
[2025-07-23 10:00] VITALS: BP 142/86; TEMP 36.3
[2025-07-23] MEDS: IPRATROPIUM/ALBUTEROL SULFATE 3 ML AMPUL.NEB IH (10:02)
[2025-07-23 10:03] VITALS: O2SAT 97
== END 2025-07-23 10:21 | disposition home or self-care (01) ==
PROVIDERS: Emergency Provider Emergency Medicine; PCP Nurse Practitioner
DX: R10.9 Unspecified abdominal pain (principal); J44.1 Chronic obstructive pulmonary disease with (acute) exacerbation; Z99.81 Dependence on supplemental oxygen; Z87.891 Personal history of nicotine dependence; K42.9 Umbilical hernia without obstruction or gangrene; R06.02 Shortness of breath
CPT/HCPCS: 36415; 71045; 74177; 80053; 83690; 83880; 84484; 85025; 93005; 94640; 96361; 96374; 99285; J2405; Q9967

== ENCOUNTER 2025-08-10 19:59 | Inpatient (IN) | payer MEDICARE, SELFPAY ==
--- OUTSIDE RECORDS SUMMARY | 2024-04-22 05:00 | XMS_ITS ---
Author Organization The [facility] in [place] Address [address] [place] [place] [address] Care Team Providers Care Field Service Representative Name Role Phone Azul Quezada CNP Primary Care Provider Unavail Valeriy Rae Unavailable [phone] REASON FOR VISIT 1 YEAR-COPD Encounters Encounter Location Date Provider Diagnosis Pulmonary Medicine [place] [address] [place] [address] 04/22/2024 Valeriy Boo Plan Of Treatment No Information Progress Notes * NIA Sam KDOB:[birth year] (65 yo M)Acc No.[id number]:04/22/2024 UNLOCKED PROGRESS NOTE Follow Up Patient: Sam SPEAR :?ERMIAS MalloryOB:1960???Age:63 Y ???Sex:MaleDate:4Phone:[phone]:[address] [id number]:Azul Quezada CNP Subjective: * Chief Complaints: * 1 . 1 YEAR-COPD. * Medical History: Objective: * Vitals: Assessment: Plan: * Treatment: * * Electronic signature of Valeriy Boo DO on 08/10/2025 at 09:11 PM ESTSign off status: PendingVisit Status:?CANC (Cancelled) * Provider: Ale Boo DO Date: 0 04/22/2024 Generated for Printing/Faxing/eTransmitting on:?08/10/2025 09:11 PM EST
--- OUTSIDE RECORDS SUMMARY | 2024-07-28 08:30 | XMS_ITS ---
Author Organization [facility] in [place] Address [address] [place] [address] Care Team Providers Care Doctor Podiatric Medicine Name Role Phone Azul Quezada CNP Primary Care Provider Unavail Valeriy Rae Unavailable [phone] REASON FOR VISIT 6MO-COPD Encounters Encounter Location Date Provider Diagnosis Pulmonary Medicine [place] [address] [place] [address] 07/28/2024 Valeriy Boo Plan Of Treatment No Information Progress Notes * NIA Sam KDOB:[birth year] (65 yo M)Acc No.[id number]:07/28/2024 UNLOCKED PROGRESS NOTE Follow Up Patient: Sam SPEAR :?ERMIAS MalloryOB:1960???Age:64 Y ???Sex:MaleDate:4Phone:[phone]:[address] [id number]:Azul Quezada CNP Subjective: * Chief Complaints: * 1 . 6MO-COPD. * Medical History: Objective: * Vitals: Assessment: Plan: * Treatment: * * Electronic signature of Valeriy Boo DO on 08/10/2025 at 09:11 PM ESTSign off status: PendingVisit Status:?R/S (Rescheduled) * Provider: Ale Boo DO Date: 09/27/2023 Generated for Printing/Faxing/eTransmitting on:?08/10/2025 09:11 PM EST
--- OUTSIDE RECORDS SUMMARY | 2025-03-10 08:00 | XMS_ITS ---
Author Organization [facility] in [place] Address [address] [place] [address] Care Team Providers Care Craft Recruiter Name Role Phone Azul Quezada CNP Primary Care Provider Unavail Valeriy Rae Unavailable [phone] REASON FOR VISIT 3m F/U - COPD Encounters Encounter Location Date Provider Diagnosis Pulmonary Medicine [place] [address] [place] [address] 03/10/2025 Valeriy Boo Plan Of Treatment No Information Progress Notes * NIARenatoSam KDOB:[birth year] (65 yo M)Acc No.[id number]:03/10/2025 UNLOCKED PROGRESS NOTE Follow Up Patient: Sam SPEAR :?ERMIAS MalloryOB:1960???Age:64 Y ???Sex:MaleDate:03/10/2025Phone:[phone]:[address] [id number]:Azul Quezada CNP Subjective: * Chief Complaints: * 1 . 3m F/U - COPD. * Medical History: Objective: * Vitals: Assessment: Plan: * Treatment: * * Electronic signature of Valeriy Boo DO on 08/10/2025 at 09:11 PM ESTSign off status: PendingVisit Status:?R/S By O/P (Rescheduled by Office/Provider) * Provider: Ale Boo DO Date: 0 03/10/2025 Generated for Printing/Faxing/eTransmitting on:?08/10/2025 09:11 PM EST
[2025-08-10] VITALS (13 sets, daily range): BP systolic 133–138; BP diastolic 76–82; PULSE 92–116; TEMP 36.4–36.8; O2SAT 91–100; BMI 27.0; BMI 27.9
--- NOTE | 2025-08-10 20:04 | ECG_ITS ---
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 Measurements Intervals Malcolm Rate: 113 P: 77 WY: 136 QRS: 79 QRSD: 86 T: 77 QT: 324 QTc: 391 Interpretive Statements 1120 Sinus tachycardia [address] depression 0102 ARTIFACT PRESENT 9150 abnormal ECG Compared to ECG 07/23/2025 07:11:00 ST (T wave) deviation now present Heart rate has increased by 30 BPM Electronically Signed On 08-11-2025 6:10:44 EST by WALT AMAYA M.D.
--- NOTE | 2025-08-10 20:05 | XR_ITS ---
[place] [id number] Patient Name: JUANITA KRAMER MRN: [id number] date: 1960 Sex: M Assigned Patient Location: ED.MAIN Current Patient Location: ED.MAIN Accession/Order Number: [id number] Exam Date: 08/10/2025 20:47 Report Date: 08/10/2025 21:23 At the request of: VAHE GRIFFIN MD Procedure: XR chest 1V Plain film chest Single view HISTORY: Shortness of breath COMPARISON: 07/23/2025 FINDINGS: SUPPORT DEVICES: None POSTSURGICAL CHANGES: None HEART: Within normal limits PULMONARY ROSMERY: Within normal limits MEDIASTINUM: Unremarkable LUNGS AND PLEURA: No acute lung process, pleural effusion or pneumothorax identified. BONY STRUCTURES: Intact ADDITIONAL FINDINGS None XR/XR chest 1V IMPRESSION: No acute process. Impression dictated by: Herminio Carter M.D. 08/10/2025 9:23 PM Dictation Location: [facility] Mobile Secretary Electronically authenticated by: [id number] Y Date: 08/10/2025 21:23
--- NOTE | 2025-08-10 20:06 | ED.SOB1 ---
HPI - SOB/Dyspnea General Chief Complaint: Shortness of Breath/Dyspnea Stated Complaint: SOB Time Seen by Provider: 08/10/25 20:04 History of Present Illness HPI Narrative: This 65-year-old male with a history of COPD who is not a smoker is brought to emergency department by EMS from home for evaluation of shortness of breath. The patient states yesterday he started becoming more severely short of breath than usual. He does wear home oxygen. EMS was called. Upon their arrival he was tripoding with audible wheezing. He was given a DuoNeb treatment and Solu-Medrol. He has not had a fever. 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 He does have a history of a stroke with left-sided hemiparesis. He denies any chest pain. Related Data Home Medications ?Medication ?Instructions ?Recorded ?Confirmed aspirin 81 mg tablet,delayed 81 mg PO DAILY previous stroke 09/21/23 08/10/25 release atorvastatin 40 mg tablet 40 mg PO .qhs 09/21/23 08/10/25 trazodone 50 mg tablet 50 mg PO .QHS 09/21/23 08/10/25 Previous Rx's ?Medication ?Instructions ?Recorded albuterol sulfate 90 mcg/actuation 2 inh inhalation Q4H PRN shortness 05/11/25 aerosol inhaler of breath or wheezing #1 g fluticasone 250 mcg-salmeterol 50 1 inh inhalation BID #60 ea 05/11/25 mcg/dose blistr powdr for inhalation (Advair Diskus) ipratropium 0.5 mg-albuterol 3 mg 3 ml inhalation Q4H PRN shortness 05/11/25 (2.5 mg base)/3 mL nebulization of breath or wheezing #180 mL soln losartan 25 mg tablet 25 mg PO DAILY #30 tabs 05/11/25 ondansetron 4 mg disintegrating 4 mg PO Q6H PRN nausea and 07/23/25 tablet vomiting #20 tabs polyethylene glycol 3350 17 17 g PO DAILY 4 days #68 grams 07/23/25 gram/dose oral powder (Miralax) Allergies Allergy/AdvReac Type Severity Reaction Status Date / Time bee venom protein (honey bee) Allergy Severe Anaphylaxis Verified 08/10/25 20:12 Review of Systems ROS Status of ROS 10 or more systems reviewed and unremarkable except as noted in history and below [facility] Medical History (Updated 08/11/25 @ 03:22 by Mary Zamudio MD) History of common carotid artery stent placement ?Z98.890 - Other specified postprocedural states (ICD-10) ?Z95.828 - Presence of other vascular implants and grafts (ICD-10) 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 - Polyp of vocal cord and larynx (ICD-10) Vertebral artery occlusion ?I65.09 - Occlusion and stenosis of unspecified vertebral artery (ICD-10) Tourette's ?F95.2 - Tourette's disorder (ICD-10) Testicle lump ?N50.89 - Other specified disorders of the male genital organs (ICD-10) Rheumatic fever ?I00 - Rheumatic fever without heart involvement (ICD-10) Pigmented skin lesion of uncertain nature ?L81.9 - Disorder of pigmentation, unspecified (ICD-10) Papule of skin ?R23.8 - Other skin changes (ICD-10) Osteoarthritis ?M19.90 - Unspecified osteoarthritis, unspecified site (ICD-10) Neck mass ?R22.1 - Localized swelling, mass and lump, neck (ICD-10) Multiple pulmonary nodules ?R91.8 - Other nonspecific abnormal finding of lung field (ICD-10) Marijuana abuse ?F12.10 - Cannabis abuse, uncomplicated (ICD-10) Insomnia ?G47.00 - Insomnia, unspecified (ICD-10) Degenerative cervical disc ?M50.30 - Other cervical disc degeneration, unspecified cervical region (ICD-10) CVA (cerebral vascular accident) ?I63.9 - Cerebral infarction, unspecified (ICD-10) COVID-19 ?U07.1 - COVID-19 (ICD-10) Centrilobular emphysema ?J43.2 - Centrilobular emphysema (ICD-10) Calcified lymph nodes ?I89.8 - Other specified noninfective disorders of lymphatic vessels and lymph nodes (ICD-10) Bilateral carotid artery stenosis ?I65.23 - Occlusion and stenosis of bilateral carotid arteries (ICD-10) Allergic rhinitis ?J30.9 - Allergic rhinitis, unspecified (ICD-10) Alcohol abuse ?F10.10 - Alcohol abuse, uncomplicated (ICD-10) Anxiety ?F41.9 - Anxiety disorder, unspecified (ICD-10) Cerebrovascular disease ?I67.9 - Cerebrovascular disease, unspecified (ICD-10) COPD (chronic obstructive pulmonary disease) ?J44.9 - Chronic obstructive pulmonary disease, unspecified (ICD-10) Depression, unspecified ?F32.A - Depression, unspecified (ICD-10) Dyslipidemia ?E78.5 - Hyperlipidemia, unspecified (ICD-10) 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 - Other diseases of vocal cords (ICD-10) Surgical History (Updated 06/08/24 @ 11:14 by Lidia Fontanez) History of vocal cord polypectomy ?Z98.890 - Other specified postprocedural states (ICD-10) H/O adenoidectomy ?Z90.89 - Acquired absence of other organs (ICD-10) History of tonsillectomy ?Z90.89 - Acquired absence of other organs (ICD-10) Family History (Updated 06/15/24 @ 06:35 by Cira Palacio RN) Mother Family history of CHF (congestive heart failure) Family history of COPD (chronic obstructive pulmonary disease) Hypertension Sister Family history of diabetes mellitus Father Family history of cancer Other Family history of myocardial infarction Social History (Updated 08/10/25 @ 23:33 by Kira Johnson) Within the past year, how often did you have a drink containing alcohol: never Within the past year, how often did you have six or more drinks on one occasion: never Score interpretation: A score less than 4 is consistent with normal alcohol consumption. Smoking status: Former smoker Second hand tobacco smoke exposure: No Non-prescribed substance use: former substance user Non-prescribed substance use details: doesn't use anymore Previous occupational history: retired Known occupational exposures/hazards: No Highest level of school completed/degree received: high school graduate Are you now , , , , never or living with a partner: living with partner In a typical week, how many times do you talk on the telephone with family, friends, or neighbors: 3 or more times per week How often do you get together with friends or relatives: 3 or more times per week How often do you attend adventist or oriental orthodox services: 1-3 times per year Do you belong to any clubs or organizations such as adventist groups unions, fraternal or athletic groups, or school groups: no Total score: 2 Score interpretation: A score of greater than or equal to 2 indicates the lowest level of social isolation. Little interest or pleasure in doing things: not at all Feeling down, depressed, or hopeless: not at all Feel stressed/tense/nervous/anxious/difficulty sleeping: not at all Due to disability, difficulty making decisions: No Do you think of yourself as: straight/heterosexual Gender Identity: male Exam Narrative Exam Narrative: Vital signs and Nursing Notes reviewed:............................................................ General: Awake, alert, oriented, uncomfortable appearing dyspneic adult male with audible expiratory wheezing and conversational dyspnea HEENT: Normocephalic atraumatic, mucous membranes are moist and pink, eyes are clear, normal conjunctiva, vision is grossly intact, posterior pharynx is normal in appearance. Neck: Supple, no meningeal signs, no anterior or posterior cervical lymphadenopathy Chest: Harsh inspiratory and expiratory wheezing with diminished lung sounds in the bases, positive accessory muscle use, 3-4 word conversational dyspnea CVS: Regular rate and rhythm S1-S2, no murmurs rubs or gallops, pulses are brisk and equal bilaterally ABD: Obese, soft, nondistended, nontender, no rebound guarding or rigidity, bowel sounds are normal, no pulsatile masses appreciated Extremities: Left-sided hemiparesis, 1-2+ pitting edema bilateral lower extremities Skin: Normal in appearance without rash,pallor, petechiae or purpura Neuro: Speech is clear, right sided strength and sensation is intact, there is contracture of the left hand and minimal movement of the left lower extremity status post stroke x 2, no facial droop, cognition is intact Constitutional Vital Signs, click to edit/add: Last Vital Signs Temp 97.6 F 08/10/25 23:53 Pulse 82 08/11/25 01:56 Resp 20 08/10/25 23:53 BP 133/82 08/10/25 23:53 Pulse Ox 91 L 08/10/25 23:53 O2 Del Method Nasal Cannula 08/10/25 23:53 O2 Flow Rate 3 08/10/25 23:53 Course Vital Signs Vital signs: Vital Signs Temperature 98.2 F 08/10/25 20:07 Pulse Rate 107 H 08/10/25 20:07 Respiratory Rate 26 H 08/10/25 20:07 Blood Pressure 138/76 08/10/25 20:07 Pulse Oximetry 97 08/10/25 20:07 Oxygen Delivery Method Nasal Cannula 08/10/25 20:07 Oxygen Delivery Flow Rate 6 08/10/25 20:07 Temperature 97.6 F 08/10/25 23:53 Pulse Rate 82 08/11/25 01:56 Respiratory Rate 20 08/10/25 23:53 Blood Pressure 133/82 08/10/25 23:53 Pulse Oximetry 91 L 08/10/25 23:53 Oxygen Delivery Method Nasal Cannula 08/10/25 23:53 Oxygen Delivery Flow Rate 3 08/10/25 23:53 MDM - SOB/Dyspnea MDM Narrative Medical decision making narrative: 65-year-old male with a history of COPD who no longer smokes presents for evaluation of 2 days of increasing shortness of breath. He typically wears 4 L nasal cannula at home. He has a cough with clear phlegm. He is not having any chest pain or fever. He called EMS because he could not catch his breath. Upon their arrival he was in the tripod position with audible inspiratory and expiratory wheezing. He was given a DuoNeb and 125 mg Solu-Medrol prior to arrival. Upon arrival he was still in respiratory distress and was given additional breathing treatments and magnesium. EKG was tachycardia at 113 bpm. Cardiac workup was ordered. His white count is mildly elevated at 12.6 with a stable hemoglobin. Electrolytes are normal with mild elevation in his glucose at 148. Blood gas showed a mild respiratory acidosis with a low O2 of 70.4 and mild CO2 retention of 50. Troponin and BNP are both normal. He is negative for COVID-19 and influenza. X-ray was reviewed by radiology and does not show any acute findings or pneumonia. Sputum was sent to the lab. He was continually evaluated and after his treatment emergency department was clinically improved and able to lie back on the stretcher and speaking complete sentences. The case was discussed with the hospitalist and he is accepted for admission to [facility], inpatient status. Lab Data Attestation: I reviewed the patient's lab results. Labs: Lab Results 11/19/25 11/19/25 11/19/25 Range/Units 20:05 20:15 20:35 WBC 12.6 H (4.0-11.0) 10^3/uL RBC 4.08 L (4.70-6.10) 10^6/uL Hgb 12.1 L (14.0-18.0) g/dL Hct 38.7 L (42.0-54.0) % MCV 94.9 H (80.0-94.0) fL MCH 29.7 (25.9-34.0) pg MCHC 31.3 (29.9-35.2) g/dL RDW 12.8 (11.0-15.0) % Plt Count 333 (150-450) 10^3/uL MPV 9.5 (9.5-13.5) fL Neut % (Auto) 79.8 H (43.0-75.0) % Lymph % (Auto) 9.8 L (20.5-60.0) % Eaton % (Auto) 9.3 (1.7-12.0) % Eos % (Auto) 0.2 L (0.9-7.0) % Baso % (Auto) 0.6 (0.2-2.0) % Neut # (Auto) 10.1 H (1.4-6.5) 10^3/uL Lymph # (Auto) 1.2 (1.2-3.8) 10^3/uL Eaton # (Auto) 1.2 H (0.3-0.8) 10^3/uL Eos # (Auto) 0.0 (0.0-0.7) 10^3/uL Baso # (Auto) 0.1 (0.0-0.1) 10^3/uL Abs Immat Gran (auto) 0.04 H (0.00-0.03) 10^3/uL Imm/Tot Granulo (auto) 0.3 (0.0-0.5) % ABG pH 7.385 (7.350-7.450) ABG pCO2 50.8 H* (35.0-45.0) mmHg ABG pO2 70.4 L (80.0-100.0) mmHg ABG HCO3 30.3 H (22.0-26.0) mmol/L ABG O2 Saturation 94.6 % ABG Base Excess 5.3 H (-2.0-2.0) mmol/L Brett Test Positive (POSITIVE) O2 Liters/Min 4 Expiratory Pressure Not Reportable Sodium 143 (136-145) mmol/L Potassium 4.0 (3.5-5.1) mmol/L Chloride 106 (98-107) mmol/L Carbon Dioxide 32.6 H (21.0-32.0) mmol/L Anion Gap 8.4 BUN 15.0 (7.0-18.0) mg/dL Creatinine 0.78 (0.70-1.30) mg/dL Est GFR ( Amer) >60 (>=60 mL/min/1.73m^2) Est GFR (Non-Af Amer) >60 (>=60 mL/min/1.73m^2) BUN/Creatinine Ratio 19.2 Glucose 148 H (74-106) mg/dL Calcium 8.7 (8.5-10.1) mg/dL Total Bilirubin 0.6 (0.2-1.0) mg/dL AST 17 (15-37) U/L ALT 29 (16-63) U/L Alkaline Phosphatase 73 (46-116) U/L Troponin I High Sens 6.8 (4.0-76.1) pg/mL NT-Pro-B Natriuret Pep 72.0 (<=900.0) pg/mL Total Protein 6.8 (6.4-8.2) g/dL Albumin 3.5 (3.4-5.0) g/dL Globulin 3.3 g/dL Albumin/Globulin Ratio 1.1 Influenza Type A Ag Negative Influenza Type B Ag Negative SARS-CoV-2 Ag (CV2AG) Negative (NEGATIVE) ABG Data Attestation: I personally reviewed and interpreted this ABG as follows: Interpretation: Normal pH, low PaO2 at 70 with mild elevation in CO2 at 50 Imaging Data Chest x-ray: Radiologist's impression: ITS Impressions Chest X-Ray 08/10/25 20:05 IMPRESSION: No acute process. Impression dictated by: Herminio Carter M.D. 08/10/2025 9:23 PM Dictation Location: [place] [id number] Electronically authenticated by: [id number] Y Date: 08/10/2025 21:23 ECG Data Attestation: I personally reviewed and interpreted this ECG as follows: (Sinus tachycardia at 113 bpm, nonspecific ST changes, normal axis, no acute ST segment elevation or T wave inversion) Discharge Plan Discharge Chief Complaint: Shortness of Breath/Dyspnea Clinical Impression: Acute exacerbation of chronic obstructive pulmonary disease Patient Disposition: Admitted As Inpatient Condition: Fair Discharge Date/Time: 08/10/25 23:20
[2025-08-10] MEDS: IPRATROPIUM/ALBUTEROL SULFATE 3 ML AMPUL.NEB IH ×2 (20:12→20:20)
[2025-08-10 20:26] LABS: HCO3 ABG 30.3 mmol/L (22.0-26.0); PO2 ABG 70.4 mmHg (80.0-100.0)
[2025-08-10 20:27] LABS: Allen Test POSITIVE (POSITIVE); Liters per Minute 4; O2 Mode NASAL CANNULA; Oxygen Saturation ABG 94.6 %
[2025-08-10 20:28] LABS: ABG PCO2 50.8 mmHg (35.0-45.0)
[2025-08-10 20:45] LABS: Hematocrit 38.7 % (42.0-54.0); Hemoglobin 12.1 g/dL (14.0-18.0); Immature Granulocytes Abs Auto 0.04 10^3/uL (0.00-0.03); Immature Granulocytes Pct Auto 0.3 % (0.0-0.5); Lymphocytes Absolute Auto 1.2 10^3/uL (1.2-3.8); Mean Corpuscular HGB Conc 31.3 g/dL (29.9-35.2); Mean Corpuscular Hemoglobin 29.7 pg (25.9-34.0); Mean Corpuscular Volume 94.9 fL (80.0-94.0); Platelet Count 333 10^3/uL (150-450); Red Blood Count 4.08 10^6/uL (4.70-6.10); White Blood Count 12.6 10^3/uL (4.0-11.0)
[2025-08-10 20:56] LABS: SARS-CoV-2 Ag NEGATIVE (NEGATIVE)
--- OUTSIDE RECORDS SUMMARY | 2025-08-10 21:09 | XMS_ITS | CCD ---
Author Organization [facility] Care Team Providers Care Guest Service Team Leader Name Role Phone SAMSA, JAMESON Admitting Unavailable SAMSA, JAMESON Attending Unavailable AICHHOLZ, SHAKER TENDER AZUL Referring Unavailable AICHHOLZ, SHAKER TENDER AZUL Primary Care Unavailable SAMSA, JAMESON Consulting Unavailable AICHHOLZ, SHAKER TENDER AZUL Admitting Unavailable AICHHOLZ, SHAKER TENDER AZUL Attending Unavailable AICHHOLZ, SHAKER TENDER AZUL Primary Care Unavailable AICHHOLZ, SHAKER TENDER AZUL Consulting Unavailable SAMSA, JAMESON Admitting Unavailable SAMSA, JAMESON Attending Unavailable AICHHOLZ, SHAKER TENDER AZUL Primary Care Unavailable WHITNEY, DR YARIEL Figueroa Consulting Unavailable SAMSA, JAMESON Consulting Unavailable AICHHOLZ, SHAKER TENDER AZUL Primary Care Unavailable DAREN, DR MAURO Admitting Unavailable DAREN, DR MAURO Attending Unavailable WHITNEY, DR YARIEL Figueroa Consulting Unavailable DAREN, DR MAURO Consulting Unavailable Kiko Zurita MD Primary Care Provider [employer]z MEDIA SERVICES DIRECTOR, Azul Unavailable Kiko Zurita MD Primary Care Provider [phone] [employer]holz MEDIA SERVICES DIRECTOR, Azul Unavailable [employer]z FINANCE MGR-SHAKER TENDER, Azul J Primary Care Provider Aichholz MEDIA SERVICES DIRECTOR, Azul Unavailable AICHHOLZ, AZUL Attending Unavailable AICHHOLZ, [...] Unavailable 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 Primary Care Unavailable Damien MEDIA SERVICES DIRECTOR, Azul Unavailable Kiko Zurita MD Primary Care Provider [phone] Damien MEDIA SERVICES DIRECTOR, Azul Unavailable Allergies Allergy ClassificationReported Allergen(s)Allergy TypeDate of OnsetReaction(s) Facility (20 sources)Honey bee venomAllergy to -50-5513RctzrvhJ[facility] (3 sources)Bee Venom Protein (Honey Bee); 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: [BEE VENOM PROTEIN (HONEY BEE)]Propensity to adverse reactions to nprd99-18-0979[facility] Medications Current Medications MedicationDrug Class(es)DatesSig [...] oral tablet (3 sources)Penicillin-class AntibacterialStart: 11-16-2024 End: 02-46-8351ccdr 1 tablet by mouth in the morningamoxicillin-clavulanate (Augmentin) 875-125 MG tablet Indications: COPD with acute exacerbation (CMS /HCC) Take 1 tablet (875 mg) by mouth in the morning and 1 tablet (875 mg) before bedtime. Do all this for 10 days. 20 tablet 11/16/2024 11/26/2024 Active aspirin 81 mg chewable tablet (20 sources)Platelet Aggregation Inhibitor, Nonsteroidal Anti-inflammatory Drug Start: 20-60-5101odamxkp 81 mg chewable tablet Chew 1 tablet (81 mg total) and swallow daily. 30 tablet 5 06/14/2020Activetake 1 tablet by mouth in the morning aspirin 81 MG EC tablet Take 81 mg by mouth in the morning. Activeatorvastatin 40 mg oral tablet (20 sources)HMG-CoA Reductase InhibitorStart: 03-15-2024 End: 25-66-0436eckw 1 tablet by mouth in the eveningatorvastatin (Lipitor) 40 MG tablet Indications: Mixed hyperlipidemia Take 1 tablet (40 mg) by mouth in the evening 90 tablet 1 12/27/2024 ActiveStart: 87-71-7497dlnr 1 tablet by mouth once dailyatorvastatin (LIPITOR) 40 mg tablet Take 1 tablet (40 mg total) by mouth nightly. 30 tablet 2 06/13/2020 Activebisacodyl 5 mg delayed release oral tablet (3 sources)Stimulant LaxativeStart: 05-31-2024 End: 93-91-6870qdvo 1 tablet by mouth oncebisacodyl (Dulcolax) 5 MG EC tablet Indications: Screening for malignant neoplasm of colon Take 1 tablet (5 mg) by mouth 1 time for 1 dose Do not crush, chew, or split. Take as detailed on clinic hand out for colonoscopy prep 1 tablet 05/31/2024 05/31/2024 Mvkbej56 actuat budesonide 0.16 mg/actuat / formoterol fumarate 0.0045 mg/actuat metered dose inhaler (20 sources)Corticosteroid, beta2-Adrenergic Agonisttake 2 puff(s) by inhalation in the morningbudesonide-formoterol (Symbicort) 160-4.5 MCG/ACT inhaler Inhale 2 puffs in the morning and 2 puffsbefore bedtime. Rinse mouth with water after use to reduce aftertaste and incidence of candidiasis.Do not swallow.. Active Ensifentrine (Ohtuvayre) 3 MG/2.5ML suspension (11 sources)Start: 32-87-0701Vktuihddqwxt (Ohtuvayre) 3 MG/2.5ML suspension every 12 (twelve) hours 08/17/2024 Oazmnqdkq544448 0.3 ml EPINEPHrine 1 mg/ml auto-injector (20 sources)alpha-Adrenergic Agonist, beta-Adrenergic Agonist, Catecholamine Start: 11-55-1023LLKAOAAfwfe (Epipen) 0.3 MG/0.3ML injection syringe Inject 1 Syringe as directed 1 (one) time 05/30/2024 Activefamotidine 20 mg oral tablet (3 sources)Histamine-2 Receptor AntagonistStart: 05-30-2024 End: 85-65-9851leld 1 tablet by mouth in the morningfamotidine (Pepcid) 20 MG tablet Take 20 mg by mouth in the morning and 20 mg before bedtime. 05/30/2024 08/16/2024 Discontinued (Therapy completed)FLUoxetine 20 mg oral capsule (20 sources)Serotonin Reuptake InhibitorStart: 02-02-2024 End: 25-35-4443kzec 1 capsule by mouth once dailyFLUoxetine (PROzac) 20 MG capsule Indications: Depression with anxiety Take 1 capsule (20 mg) by mouth Daily 90 capsule 1 02/15/2025 Activetake 1 capsule by mouth once dailyFLUoxetine (PROzac) 10 mg capsule Take 10 mg by mouth daily. ActivehydrOXYzine hydrochloride 25 mg oral tablet (11 sources)AntihistamineStart: 12-15-2023 End: 38-97-6961ctkd 1-2 tablets by mouth every eight hours for anxiety hydrOXYzine HCl (Atarax) 25 MG tablet Indications: Depression with anxiety Take 1-2 tablets (25-50 mg) by mouth every 8 (eight) hours if needed for anxiety for up to 10 days 60 tablet 12/15/2023 08/16/2024 Discontinued (Therapy completed) ipratropium bromide 0.2 mg/ml inhalation solution (11 sources)AnticholinergicStart: 59-97-6340lrbyuybqiur (Atrovent) 0.02 % nebulizer solution 2.5 mL inhaled via nebulizer every 8 hours As Needed for shortness of breath or wheezing 09/27/2024 Activelosartan potassium 25 mg oral tablet (3 sources)Angiotensin 2 Receptor BlockerStart: 78-49-3885yavp 1 tablet by mouth once dailylosartan (Cozaar) 25 MG tablet Take 25 mg by mouth Daily 05/11/2025 Activepolyethylene glycol 3350 56025 mg powder for oral solution (3 sources)Osmotic LaxativeStart: 05-31-2024 End: 55-71-8953ndou 17 g by mouth oncepolyethylene glycol, PEG, 3350 (Glycolax) 17 GM/SCOOP powder Indications: Colonoscopy Take 238 g bymouth 1 (one) time for 1 dose Take as detailed from clinic hand out for colonoscopy prep 238 g 05/3105/31/2024 ActivepredniSONE 10 mg oral tablet (15 sources)Start: 93-12-1547uiiv 1 tablet by mouth three times daily, then take 1 tablet by mouth twice daily, then take 1 tablet by mouth once dailypredniSONE (Deltasone) 10 MG tablet TAKE 1 TABLET BY MOUTH THREE TIMES DAILY FOR 4 DAYS, then TAKE 1 TABLET BY MOUTH TWICE DAILY FOR 4 DAYS, then TAKE 1 TABLET BY MOUTH DAILY FOR 4 DAYS 05/11/2025 ActiveStart: 11-16-2024 End: 85-64-2980khjw 1 tablet by mouth in the morningpredniSONE (Deltasone) 20 MG tablet Indications: COPD with acute exacerbation (CMS/HCC) Take 1 tablet (20 mg) by mouth in the morning and 1 tablet (20 mg) in the evening. Take with meals. Do all thisfor 5 days. Take with food. 10 tablet 11/16/2024 11/21/2024 ActiveStart: 05-30-2024 End: 69-64-4521pwhj 1 tablet by mouth in the morningpredniSONE [...] tablet (20 sources)Serotonin Reuptake InhibitorStart: 12-16-2023 End: 34-89-2879dgcd 1 tablet by mouth at bedtimetraZODone (Desyrel) [...] (20 sources)Cerebrovascular accident; 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: [Cerebral infarction, unspecified]Onset: 685832-59-5128ThmyduaXehifak disorders (20 sources)Other specified anxiety disorders; 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: [Mixed anxiety and depressive disorder]Onset: 119397-37-9046RjffjlwQxoycgt obstructive pulmonary disease and bronchiectasis (20 sources)Emphysema, unspecified; 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: [Centrilobular emphysema] Onset: 98-17-4957HfjismbYilpiejc mellitus without complication (6 sources)Increased glucose level; 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: [Other abnormal glucose]Onset: 701161-02-7255WeuwnijfQjgykzvlj of lipid metabolism (20 sources)Mixed hyperlipidemia; 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: [Mixed hyperlipidemia]Onset: 262026-28-4556JgtuckvEnaycwtyg usually diagnosed in infancy, childhood, or adolescence (20 sources)Wilian de la Tourette's syndrome; 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: [Tourette's disorder]Onset: 517934-71-9893BzpkibcKswicstorbykr mental health disorders (2 sources)Primary insomnia; 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: [Primary insomnia]73-53-7808Eavdxnr Occlusion or stenosis of precerebral arteries (20 sources)Occlusion and stenosis of bilateral carotid arteries; 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: [Internal carotid artery stenosis]Onset: 86-08-4062BqkgmevHscxvyqakcjkha (20 sources)Osteoarthritis; 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: [Unspecified osteoarthritis, unspecified site]Onset: 367395-98-1453CpwheojOjmye diseases of veins and lymphatics (20 sources)Calcified lymph nodes; 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: [Other specified noninfective disorders of lymphatic vessels and lymph nodes]Onset: ChronicOther lower respiratory disease (4 sources)Shortness of breath; 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: [SHORTNESS OF BREATH]Onset: 31-38-3325CypbnbqxUiemj non-traumatic joint disorders (5 sources)Hip pain; 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: [Pain in right hip]Onset: 05-17-2025 86-10-6823YdloegjkHwrgg upper respiratory disease (20 sources)Allergic rhinitis; 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: [Allergic rhinitis, unspecified] Onset: 842356-53-9388WvvfqrsImnkatyg codes; unclassified (1 source)Pain, unspecified; 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: [Pain, unspecified]Onset: 07-07-2025 EpisodicSpondylosis; intervertebral disc disorders; other back problems (20 sources)Degeneration of cervical intervertebral disc; 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: [Other cervical disc degeneration, unspecified cervical region]Onset: 10-30-2023 00-50-0362CecgbzuDzurzyfre-related disorders (20 sources)Cannabis abuse; 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: [Cannabis abuse, uncomplicated]Onset: 07-20-2020 Resolved: 717189-93-4805XhewlwnVeefjldpltws (1 source)CONTACT W/AND (SUSP) EXPOS COVID-19; 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: [CONTACT W/AND (SUSP) EXPOS COVID-19]Onset: 98-80-2006Ibapifrsebgk (1 source)EOSINOPHILIA UNSPECIFIED; 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: [EOSINOPHILIA UNSPECIFIED] Onset: 04-20-2022 Past or Other Problems Problem ClassificationProblemDateDocumented DateEpisodic/ChronicImmunizations and screening for infectious disease (18 sources)Needs influenza immunization; 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: [Encounter for immunization]Onset: 357783-85-8642ElfeaqwxDmokxpznw (20 sources)Influenza; 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: [Influenza due to unidentified influenza virus with other respiratory manifestations]Onset: 10-30-2023 Resolved: 102684-87-7294UaznkmzdBhao disorders (11 sources)Mood disordersOnset: 02-07-2022 Resolved: ther aftercare (12 sources)Long-term current use of inhaled steroid; 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]Onset: 642676-72-7176ZmvpwwonJoxmj and unspecified benign neoplasm (20 sources)Polyp of colon; 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: [Polyp of colon]Onset: 05-19-2024 Resolved: 789666-39-4007UaxcyrqwIfnpx connective tissue disease (20 sources)Pain in right hand; 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: [Pain in right hand]Onset: 052560-29-6984ZtennzucBaxkk lower respiratory disease (20 sources)Multiple nodules of lung; 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: [Other nonspecific abnormal finding of lung field]Onset: 869037-88-4036AicmkpvaVuedb nutritional; endocrine; and metabolic disorders (20 sources)Overweight in adulthood with body mass index of 25 or more but less than 30; 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: [Body mass index (BMI) 26.0-26.9, adult]Onset: 10-30-2023 83-64-1752FgzuwtleCaocy nutritional; endocrine; and metabolic disorders (20 sources)Body mass index 25-29 - overweight; 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: [Overweight]Onset: 068847-69-7392ZapakrmdBrzta screening for suspected conditions (not mental disorders or infectious disease) (20 sources)Encounter for screening for malignant neoplasm of respiratory organs; 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: [Encounter for screening for malignant neoplasm of prostate]Onset: 98-92-1369IhokjeesUogmi skin disorders (20 sources)Papule of skin; 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: [Other skin changes]Onset: 11-13-2023 Resolved: 895467-31-2666FlwcswuuVvjof upper respiratory disease (20 sources)Polyp of vocal cord ; 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] Onset: 766942-42-2263QgixyuxdLgxfligo codes; unclassified (20 sources)Insomnia; 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: [Insomnia, unspecified]Onset: 10-30-2023 72-96-0122UnsldqefIribklyup and history of mental health and substance abuse codes (20 sources)Personal history of nicotine dependence; 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: [Ex-smoker] Onset: 721132-08-8542DolxecjxPnznt infection (20 sources)Disease caused by 2019-nCoV; 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: [COVID-19]Onset: 386658-40-0145Zwfcmjka Results Test NameValueInterpretationReference RangeFacilityCOMPREHENSIVE METABOLIC PANEL on 78-89-2579Aqfznuy [Mass/Vol]3.4 g/dLNormal3.2-5.3PSouthwest General Health Center Comment on above:Performed By: #### BEDG #### [facility] [address] [place] [address] VIRALP [Catalytic activity/Vol]53 U/XWiqhmk13-740ClnWwvwqd [place] HospitalComment on above:Performed By: #### BEDG #### [facility] ([facility]) [address] [place] [address] VIRALT [Catalytic activity/Vol]10 U/LNormal<=40ProTrinity Health System Twin City Medical CenterComment on above:Performed By: #### BEDG #### [facility] ([facility]) [address] [place] [address] VIRAnion gap [Moles/Vol]8 mmol/LNormal5-15ProBlanchard Valley Health Systemca Shannon HospitalComment on above:Performed By: #### BEDG #### [facility] ([facility]) [address] [place] [address] VIRAST [Catalytic activity/Vol]16 U/LNormal<=41ProBlanchard Valley Health Systemca Shannon HospitalComment on above:Performed By: #### BEDG #### [facility] ([facility]) [address] [place] [address] VIRBilirubin [Mass/Vol]0.9 mg/dLNormal0.3-1.2PCleveland [facility] HospitalComment on above:Performed By: #### BEDG #### [facility] ([facility]) [address] [place] [address] VIRCalcium [Mass/Vol]8.6 mg/dLNormal8.5-10.5PCleveland Clinic Avon Hospital HospitalComment on above:Performed By: #### BEDG #### [facility] ([facility] [address] [place] [address] VIRChloride [Moles/Vol]100 mmol/OKalumh83-690VneYxbshd [place] HospitalComment on above:Performed By: #### BEDG #### [facility] [address] [place] [address] VIRCO2 [Moles/Vol]29 mmol/XGzonme03-82GxhOhjrfn [facility] Comment on above:Performed By: #### BEDG #### [facility] [address] [place] [address] VIRCreatinine [Mass/Vol]0.75 mg/dLNormal0.60-1.30ProKettering Health Greene Memorial HospitalComment on above:Result Comment: METHOD TRACEABLE TO IDMS STANDARDPerformed By: #### BEDG #### [facility]) [address] [place] [address] VIREGFR (CKD-EPI) NON-RACE DEPENDENT>^90Normal>=60ProKettering Health Greene Memorial HospitalComment on above:Result Comment: Reported eGFR is based on the CKD-EPI 2020 equation that does not use a race coefficient.Performed By: #### BEDG #### [facility] [address] [place] [address] VIRGlucose [Mass/Vol]94 mg/gXWpymoc47-73VlxIxokym [place] HospitalComment on above:Performed By: #### BEDG #### [facility] [address] [place] [address] VIRPotassium [Moles/Vol]4.0 mmol/LNormal3.5-5.0ProKettering Health Greene Memorial HospitalComment on above:Performed By: #### BEDG #### [facility] [address] [place] [address] VIRProtein [Mass/Vol]5.6 g/dLLow6.0-8.0ProKettering Health Greene Memorial HospitalComment on above:Performed By: #### BEDG #### [facility] [address] [place] [address] VIRSodium [Moles/Vol]137 mmol/XDomuxb684-725SdtUnurdm [place] HospitalComment on above:Performed By: #### BEDG #### [facility] [address] [place] [address] VIRUrea nitrogen [Mass/Vol]14 mg/dLNormal5-27ProKettering Health Greene Memorial HospitalComment on above:Performed By: #### BEDG #### [facility] [address] [place] [address] VIRCOMPREHENSIVE METABOLIC PANELon 31-47-2914Wjyhndf [Mass/Vol] 3.4 g/dLNormal3.2-5.3ProMedica Shannon HospitalComment on above:Performed By: #### BEDG #### [facility] [address] [place] [address] VIRALP [Catalytic activity/Vol]52 U/OQolcgp53-897UvqXvnwiq [facility] HospitalComment on above:Performed By: #### BEDG #### [facility] [address] [place] [address] VIRALT [Catalytic activity/Vol]10 U/LNormal<=40ProBlanchard Valley Health Systemca [facility] HospitalComment on above:Performed By: #### BEDG #### [facility] [address] [place] [address] VIRAnion gap [Moles/Vol]7 mmol/LNormal5-15ProBlanchard Valley Health Systemca [facility] HospitalComment on above:Performed By: #### BEDG #### [facility] [address] [place] [address] VIRAST [Catalytic activity/Vol]17 U/LNormal<=41ProBlanchard Valley Health Systemca [facility] HospitalComment on above:Performed By: #### BEDG #### [facility] [address] [place] [address] VIRBilirubin [Mass/Vol]1.0 mg/dLNormal0.3-1.2PCleveland Clinic [facility] Hospital HospitalComment on above:Performed By: #### BEDG #### [facility] [address] [place] [address] VIRCalcium [Mass/Vol]8.6 mg/dLNormal8.5-10.5PC[facility] HospitalComment on above:Performed By: #### BEDG #### [facility]) [address] [facility] [place] [address] VIRChloride [Moles/Vol]99 mmol/YBlrezx72-495SagZuavdl [facility] HospitalComment on above:Performed By: #### BEDG #### [facility] [address] [facility] [place] [address] VIRCO2 [Moles/Vol]31 mmol/SKseivl83-29RboRkgkqo [facility] Comment on above:Performed By: #### BEDG #### [facility]) [address] [place] [address] VIRCreatinine [Mass/Vol]0.79 mg/dLNormal0.60-1.30ProKettering Health Greene Memorial HospitalComment on above:Result Comment: METHOD TRACEABLE TO IDMS STANDARDPerformed By: #### BEDG #### [facility] [address] [place] [address] VIREGFR (CKD-EPI) NON-RACE DEPENDENT>^90Normal>=60ProKettering Health Greene Memorial HospitalComment on above:Result Comment: Reported eGFR is based on the CKD-EPI 2020 equation that does not use a race coefficient.Performed By: #### BEDG #### [facility] [address] [place] [address] VIRGlucose [Mass/Vol]91 mg/qKJtlmkj58-00ExtZxujwl [place] HospitalComment on above:Performed By: #### BEDG #### [facility] [address] [place] [address] VIRPotassium [Moles/Vol]4.2 mmol/LNormal3.5-5.0ProKettering Health Greene Memorial HospitalComment on above:Performed By: #### BEDG #### [facility] [address] [place] [address] VIRProtein [Mass/Vol]5.7 g/dLLow6.0-8.0ProKettering Health Greene Memorial HospitalComment on above:Performed By: #### BEDG #### [facility] [address] [place] [address] VIRSodium [Moles/Vol]137 mmol/WBayyjz807-380GxnSdmjbh [place] HospitalComment on above:Performed By: #### BEDG #### [facility] [address] [place] [address] VIRUrea nitrogen [Mass/Vol]13 mg/dLNormal5-27ProKettering Health Greene Memorial HospitalComment on above:Performed By: #### BEDG #### [facility] [address] [place] [address] VIRCBC WITH AUTO DIFFERENTIALon 60-27-9336WXKAXZZER ABSOLUTE COUNT (10*3/UL) BY AUTOMATED COUNT0.1 10*3/uLNormal0.0-0.2Pro[facility] HospitalComment on above:Performed By: #### BEDG #### [facility] [address] [place] [address] VIRBASOPHILS RELATIVE PERCENT BY AUTOMATED COUNT0.5 %Normal [facility] HospitalComment on above:Performed By: #### BEDG #### [facility] [address] [place] [address] VIRCELLAVISION DIFFERENTIAL TYPEAUTOMATED DIFFERENTIALNormal [facility] HospitalComment on above:Performed By: #### BEDG #### [facility] [address] [place] [address] VIREosinophils (Bld) [#/Vol]0.3 10*3/uLNormal0.0-0.4Mary Rutan HospitalComment on above:Performed By: #### BEDG #### [facility] [address] [place] [address] VIREOSINOPHILS RELATIVE PERCENT BY AUTOMATED COUNT3.0 %Normal [facility] HospitalComment on above:Performed By: #### BEDG #### [facility] [address] [place] [address] VIRErythrocyte distribution width (RBC) [Ratio]12.9 %Normal 11.5-15ProTrinity Health System Twin City Medical CenterComment on above:Performed By: #### BEDG #### [facility] [address] [place] [address] VIRHematocrit (Bld) [Volume fraction]37.9 %Tir25-98QibHmtoli Shannon HospitalComment on above:Performed By: #### BEDG #### [facility] [address] [place] [address] VIRHemoglobin (Bld) [Mass/Vol]12.6 g/zICez52-08DwrZjyvzi [facility] HospitalComment on above:Performed By: #### BEDG #### [facility] [address] [place] [address] VIRLYMPHOCYTES ABSOLUTE COUNT (10*3/UL) BY AUTOMATED COUNT1.0 10*3/uLNormal1.0-3.5Pro[facility] HospitalComment on above:Performed By: #### BEDG #### [facility] [address] [place] [address] VIRLYMPHOCYTES RELATIVE PERCENT BY AUTOMATED COUNT10.4 %Normal [facility] HospitalComment on above:Performed By: #### BEDG #### [facility] [address] [place] [address] VIRMCH (RBC) [Entitic mass]29.4 ksWjdgpz76-36KyiVquczm [place] HospitalComment on above:Performed By: #### BEDG #### [facility] [address] [place] [address] VIRMCHC (RBC) [Mass/Vol]33.3 g/hPDqbyyl85-96FqlPfxcig [facility] HospitalComment on above:Performed By: #### BEDG #### [facility] [address] [place] [address] VIRMCV (RBC) [Entitic vol]88 oQYsasmt85-200PqvAdyuau [facility] HospitalComment on above:Performed By: #### BEDG #### [facility] [address] [place] [address] VIRMONOCYTES ABSOLUTE COUNT (10*3/UL) BY AUTOMATED COUNT1.1 10*3/uLHigh0.0-0.9ProKettering Health Greene Memorial HospitalComment on above:Performed By: #### BEDG #### [facility] [address] [facility] [place] [address] VIRMONOCYTES RELATIVE PERCENT BY AUTOMATED COUNT10.7 %Normal [facility] HospitalComment on above:Performed By: #### BEDG #### [facility] [address] [facility] [place] [address] VIRNEUTROPHILS ABSOLUTE COUNT BY AUTOMATED COUNT7.5 10*3/uLHigh 1.5-6.6ProKettering Health Greene Memorial HospitalComment on above:Performed By: #### BEDG #### [facility] [address] [facility] [place] [address] VIRNEUTROPHILS RELATIVE PERCENT BY AUTOMATED COUNT75.4 %Normal [facility] HospitalComment on above:Performed By: #### BEDG #### [facility] [address] [facility] [place] [address] VIRPlatelet mean volume (Bld) [Entitic vol]7.4 fLNormal7-12 [facility] HospitalComment on above:Performed By: #### BEDG #### [facility] [address] [facility] [place] [address] VIRPlatelets (Bld) [#/Vol]283 10*3/kORwtvvz735-634GkmKriwnh [place] HospitalComment on above:Performed By: #### BEDG #### [facility] ([facility]) [address] [facility] [place] [address] VIRRBC COUNT4.30 X10E12/LNormal4.1-5.7[facility] Comment on above:Performed By: #### BEDG #### [facility] ([facility]) [address] [facility] [place] [address] VIRWBC (Bld) [#/Vol]10.0 10*3/uLNormal4-11ProBlanchard Valley Health Systemca Shannon HospitalComment on above:Performed By: #### BEDG #### [facility] ([facility]) [address] [place] [address] VIRCOMPREHENSIVE METABOLIC PANELon 17-00-8052Sigyicp [Mass/Vol] 3.5 g/dLNormal3.2-5.3ProMedGerman Hospital HospitalComment on above:Performed By: #### BEDG #### [facility] ([facility]) [address] [facility] [place] [address] VIRALP [Catalytic activity/Vol]56 U/SKroouw39-209KiqTcjzfr [place] HospitalComment on above:Performed By: #### BEDG #### [facility] ([facility]) [address] [place] [address] VIRALT [Catalytic activity/Vol]11 U/LNormal<=40ProKettering Health Greene Memorial HospitalComment on above:Performed By: #### BEDG #### [facility] ([facility]) [address] [facility] [place] [address] VIRAnion gap [Moles/Vol]8 mmol/LNormal5-15ProKettering Health Greene Memorial HospitalComment on above:Performed By: #### BEDG #### [facility] ([facility]) [address] [facility] [place] [address] VIRAST [Catalytic activity/Vol]18 U/LNormal<=41ProBlanchard Valley Health Systemca Shannon HospitalComment on above:Performed By: #### BEDG #### [facility] ([facility]) [address] [facility] [place] [address] VIRBilirubin [Mass/Vol]1.1 mg/dLNormal0.3-1.2ProMedGerman Hospital HospitalComment on above:Performed By: #### BEDG #### [facility] ([facility]) [address] [facility] [place] [address] VIRCalcium [Mass/Vol]8.9 mg/dLNormal8.5-10.5ProMedica Adkins HospitalComment on above:Performed By: #### BEDG #### [facility] ([facility]) [address] [place] [address] VIRChloride [Moles/Vol]99 mmol/TKqvsow12-209BfdLidhrj [place] HospitalComment on above:Performed By: #### BEDG #### [facility] ([facility]) [address] [place] [address] VIRCO2 [Moles/Vol]29 mmol/FRotozg78-39EraXtothg [facility] Comment on above:Performed By: #### BEDG #### [facility] ([facility]) [address] [place] [address] VIRCreatinine [Mass/Vol]0.78 mg/dLNormal0.60-1.30ProTrinity Health System Twin City Medical CenterComment on above:Result Comment: METHOD TRACEABLE TO IDMS STANDARDPerformed By: #### BEDG #### [facility] ([facility]) [address] [place] [address] VIREGFR (CKD-EPI) NON-RACE DEPENDENT>^90Normal>=60ProTrinity Health System Twin City Medical CenterComment on above:Result Comment: Reported eGFR is based on the CKD-EPI 2020 equation that does not use a race coefficient.Performed By: #### BEDG #### [facility] ([facility]) [address] [place] [address] VIRGlucose [Mass/Vol]93 mg/eTOxoxll88-29BfhRycgje [place] HospitalComment on above:Performed By: #### BEDG #### [facility] ([facility]) [address] [place] [address] VIRPotassium [Moles/Vol]4.3 mmol/LNormal3.5-5.0ProKettering Health Greene Memorial HospitalComment on above:Performed By: #### BEDG #### [facility] ([facility]) [address] [place] [address] VIRProtein [Mass/Vol]6.0 g/dLNormal6.0-8.0ProKettering Health Greene Memorial HospitalComment on above:Performed By: #### BEDG #### [facility] ([facility]) [address] [place] [address] VIRSodium [Moles/Vol]136 mmol/RRbkfge717-687GheLurepu [place] HospitalComment on above:Performed By: #### BEDG #### [facility] ([facility]) [address] [place] [address] VIRUrea nitrogen [Mass/Vol]17 mg/dLNormal5-27ProKettering Health Greene Memorial HospitalComment on above:Performed By: #### BEDG #### [facility] ([facility]) [address] [place] [address] VIRCBC WITH AUTO DIFFERENTIALon 45-34-9055QSNLIEZFI ABSOLUTE COUNT (10*3/UL) BY AUTOMATED COUNT0.1 10*3/uLNormal0.0-0.2PSouthwest General Health CenterComment on above:Performed By: #### BEDG #### [facility] ([facility]) [address] [place] [address] VIRBASOPHILS RELATIVE PERCENT BY AUTOMATED COUNT0.7 %Normal [facility] Rutan HospitalComment on above:Performed By: #### BEDG #### [facility] ([facility]) [address] [place] [address] VIRCELLAVISION DIFFERENTIAL TYPEAUTOMATED DIFFERENTIALNormal [facility] Rut[facility] HospitalComment on above:Performed By: #### BEDG #### [facility] ([facility]) [address] [place] [address] VIREosinophils (Bld) [#/Vol]0.2 10*3/uLNormal0.0-0.4ProKettering Health Greene Memorial HospitalComment on above:Performed By: #### BEDG #### [facility] ([facility]) [address] [place] [address] VIREOSINOPHILS RELATIVE PERCENT BY AUTOMATED COUNT2.1 %Normal [facility] HospitalComment on above:Performed By: #### BEDG #### [facility] ([facility]) [address] [place] [address] VIRErythrocyte distribution width (RBC) [Ratio]13.0 %Normal 11.5-15ProBlanchard Valley Health Systemca Shannon HospitalComment on above:Performed By: #### BEDG #### [facility] ([facility]) [address] [place] [address] VIRHematocrit (Bld) [Volume fraction]38.2 %Igx90-98PtoIyzifa Shannon HospitalComment on above:Performed By: #### BEDG #### [facility] ([facility]) [address] [place] [address] VIRHemoglobin (Bld) [Mass/Vol]12.9 g/hXJsl94-56VrkRwrrdn Shannon HospitalComment on above:Performed By: #### BEDG #### [facility] ([facility]) [address] [place] [address] VIRLYMPHOCYTES ABSOLUTE COUNT (10*3/UL) BY AUTOMATED COUNT1.3 10*3/uLNormal1.0-3.5ProMedica Mercy Memorial HospitalComment on above:Performed By: #### BEDG #### [facility] ([facility]) [address] [place] [address] VIRLYMPHOCYTES RELATIVE PERCENT BY AUTOMATED COUNT11.8 %Normal ProMnorthwest medical centera Shannon HospitalComment on above:Performed By: #### BEDG #### [facility] ([facility]) [address] [place] [address] VIRMCH (RBC) [Entitic mass]29.7 lsIlfslf68-07YnkBhchmv Shannon HospitalComment on above:Performed By: #### BEDG #### [facility] ([facility]) [address] [place] [address] VIRMCHC (RBC) [Mass/Vol]33.8 g/rDYfdrro80-46VshUoyrmi [place] HospitalComment on above:Performed By: #### BEDG #### [facility] ([facility]) [address] [place] [address] VIRMCV (RBC) [Entitic vol]88 fQSasfxt96-170EfsPjafyb [place] HospitalComment on above:Performed By: #### BEDG #### [facility] ([facility]) [address] [place] [address] VIRMONOCYTES ABSOLUTE COUNT (10*3/UL) BY AUTOMATED COUNT1.1 10*3/uLHigh0.0-0.9Mary Rutan HospitalComment on above:Performed By: #### BEDG #### [facility] ([facility]) [address] [place] [address] VIRMONOCYTES RELATIVE PERCENT BY AUTOMATED COUNT10.8 %Normal [facility] HospitalComment on above:Performed By: #### BEDG #### [facility] ([facility]) [address] [place] [address] VIRNEUTROPHILS ABSOLUTE COUNT BY AUTOMATED COUNT7.9 10*3/uLHigh 1.5-6.6Mary Rutan HospitalComment on above:Performed By: #### BEDG #### [facility] ([facility]) [address] [place] [address] VIRNEUTROPHILS RELATIVE PERCENT BY AUTOMATED COUNT74.6 %Normal [facility] HospitalComment on above:Performed By: #### BEDG #### [facility] ([facility]) [address] [place] [address] VIRPlatelet mean volume (Bld) [Entitic vol]7.5 fLNormal7-12 [facility] HospitalComment on above:Performed By: #### BEDG #### [facility] ([facility]) [address] [place] [address] VIRPlatelets (Bld) [#/Vol]289 10*3/bIWvbrze654-551PljZeoxjf Shannon HospitalComment on above:Performed By: #### BEDG #### [facility] ([facility]) [address] [place] [address] VIRRBC COUNT4.34 X10E12/LNormal4.1-5.7ProKettering Health [facility] Comment on above:Performed By: #### BEDG #### [facility] ([facility]) [address] [place] [address] VIRWBC (Bld) [#/Vol]10.6 10*3/uLNormal4-11ProBlanchard Valley Health Systemca Shannon HospitalComment on above:Performed By: #### BEDG #### [facility] ([facility]) [address] [place] [address] VIRCOMPREHENSIVE METABOLIC PANELon 98-62-7528Wyalzcx [Mass/Vol] 3.7 g/dLNormal3.2-5.3ProMedica Shannon HospitalComment on above:Performed By: #### BEDG #### [facility] ([facility]) [address] [place] [address] VIRALP [Catalytic activity/Vol]55 U/SCfhqka67-941FveRudmqq [place] HospitalComment on above:Performed By: #### BEDG #### [facility] ([facility]) [address] [place] [address] VIRALT [Catalytic activity/Vol]11 U/LNormal<=40ProKettering Health Greene Memorial HospitalComment on above:Performed By: #### BEDG #### [facility] ([facility]) [address] [place] [address] VIRAnion gap [Moles/Vol]9 mmol/LNormal5-15ProKettering Health Greene Memorial HospitalComment on above:Performed By: #### BEDG #### [facility] ([facility]) [address] [place] [address] VIRAST [Catalytic activity/Vol]20 U/LNormal<=41ProBlanchard Valley Health Systemca Shannon HospitalComment on above:Performed By: #### BEDG #### [facility] ([facility]) [address] [place] [address] VIRBilirubin [Mass/Vol]0.9 mg/dLNormal0.3-1.2PC[facility] HospitalComment on above:Performed By: #### BEDG #### [facility] ([facility]) [address] [place] [address] VIRCalcium [Mass/Vol]8.8 mg/dLNormal8.5-10.5PCleveland [facility] HospitalComment on above:Performed By: #### BEDG #### [facility] ([facility]) [address] [place] [address] VIRChloride [Moles/Vol]99 mmol/DXjvapa44-742AoiQpllvs [place] HospitalComment on above:Performed By: #### BEDG #### [facility] ([facility]) [address] [place] [address] VIRCO2 [Moles/Vol]29 mmol/YBcucum63-31FhqEnxdfoSouthwest General Health Center Comment on above:Performed By: #### BEDG #### [facility] ([facility]) [address] [place] [address] VIRCreatinine [Mass/Vol]0.86 mg/dLNormal0.60-1.30ProKettering Health Greene Memorial HospitalComment on above:Result Comment: METHOD TRACEABLE TO IDMS STANDARDPerformed By: #### BEDG #### [facility] ([facility]) [address] [facility] [place] [address] VIREGFR (CKD-EPI) NON-RACE DEPENDENT>^90Normal>=60ProKettering Health Greene Memorial HospitalComment on above:Result Comment: Reported eGFR is based on the CKD-EPI 2020 equation that does not use a race coefficient.Performed By: #### BEDG #### [facility] ([facility]) [address] [place] [address] VIRGlucose [Mass/Vol]102 mg/fTIieh60-66QanHmafgc [place] HospitalComment on above:Performed By: #### BEDG #### [facility] ([facility]) [address] [place] [address] VIRPotassium [Moles/Vol]4.1 mmol/LNormal3.5-5.0ProBlanchard Valley Health Systemca Shannon HospitalComment on above:Performed By: #### BEDG #### [facility] ([facility]) [address] [place] [address] VIRProtein [Mass/Vol]6.0 g/dLNormal6.0-8.0ProKettering Health Greene Memorial HospitalComment on above:Performed By: #### BEDG #### [facility] ([facility]) [address] [place] [address] VIRSodium [Moles/Vol]137 mmol/XRwybqw167-090KezPdxiwt [place] HospitalComment on above:Performed By: #### BEDG #### [facility] ([facility]) [address] [place] [address] VIRUrea nitrogen [Mass/Vol]21 mg/dLNormal5-27ProKettering Health Greene Memorial HospitalComment on above:Performed By: #### BEDG #### [facility] ([facility]) [address] [place] [address] VIRCBC WITH AUTO DIFFERENTIALon 44-11-8542QFJIJEAJS ABSOLUTE COUNT (10*3/UL) BY AUTOMATED COUNT0.0 10*3/uLNormal0.0-0.2Pro[facility]ica [facility] Memorial HospitalComment on above:Performed By: #### CBCA #### [facility] ([facility]) [address] [place] [address] VIRBASOPHILS RELATIVE PERCENT BY AUTOMATED COUNT0.1 %Normal [facility] HospitalComment on above:Performed By: #### CBCA #### [facility] ([facility]) [address] [place] [address] VIRCELLAVISION DIFFERENTIAL TYPEAUTOMATED DIFFERENTIALNormal [facility] HospitalComment on above:Performed By: #### CBCA #### [facility] ([facility]) [address] [place] [address] VIREosinophils (Bld) [#/Vol]0.0 10*3/uLNormal0.0-0.4ProBlanchard Valley Health Systemca Shannon HospitalComment on above:Performed By: #### CBCA #### [facility] ([facility]) [address] [place] [address] VIREOSINOPHILS RELATIVE PERCENT BY AUTOMATED COUNT0.0 %Normal [facility] HospitalComment on above:Performed By: #### CBCA #### [facility] ([facility]) [address] [place] [address] VIRErythrocyte distribution width (RBC) [Ratio]13.4 %Normal 11.5-15ProKettering Health Greene Memorial HospitalComment on above:Performed By: #### CBCA #### [facility] ([facility]) [address] [place] [address] VIRHematocrit (Bld) [Volume fraction]39.2 %Xvtdrk97-19RukWfurnz [place] HospitalComment on above:Performed By: #### CBCA #### [facility] ([facility]) [address] [place] [address] VIRHemoglobin (Bld) [Mass/Vol]13.0 g/bGUzskyh06-80SanDvhwjz [place] HospitalComment on above:Performed By: #### CBCA #### [facility] ([facility]) [address] [place] [address] VIRLYMPHOCYTES ABSOLUTE COUNT (10*3/UL) BY AUTOMATED COUNT0.7 10*3/uLLow1.0-3.5ProMedica Shannon HospitalComment on above:Performed By: #### CBCA #### [facility] ([facility]) [address] [place] [address] VIRLYMPHOCYTES RELATIVE PERCENT BY AUTOMATED COUNT5.3 %Normal [facility] Shannon HospitalComment on above:Performed By: #### CBCA #### [facility] ([facility]) [address] [place] [address] VIRMCH (RBC) [Entitic mass]29.1 fcQvrdsy72-26TxkPhuhmh Adkins HospitalComment on above:Performed By: #### CBCA #### [facility] ([facility]) [address] [place] [address] VIRMCHC (RBC) [Mass/Vol]33.1 g/vXZjzhti59-89BjvSvavbq [facility]kins HospitalComment on above:Performed By: #### CBCA #### [facility] ([facility]) [address] [place] [address] VIRMCV (RBC) [Entitic vol]88 lVLzctpk10-696OwzIqzpbc Shannon HospitalComment on above:Performed By: #### CBCA #### [facility] ([facility]) [address] [place] [address] VIRMONOCYTES ABSOLUTE COUNT (10*3/UL) BY AUTOMATED COUNT1.3 10*3/uLHigh0.0-0.9Pro[facility] HospitalComment on above:Performed By: #### CBCA #### [facility] ([facility]) [address] [place] [address] VIRMONOCYTES RELATIVE PERCENT BY AUTOMATED COUNT9.7 %Normal [facility] HospitalComment on above:Performed By: #### CBCA #### [facility] ([facility]) [address] [place] [address] VIRNEUTROPHILS ABSOLUTE COUNT BY AUTOMATED COUNT11.2 10*3/uL High1.5-6.6ProMedica Adkins HospitalComment on above:Performed By: #### CBCA #### [facility] ([facility]) [address] [place] [address] VIRNEUTROPHILS RELATIVE PERCENT BY AUTOMATED COUNT84.9 %Normal ProMSelect Medical [facility] HospitalComment on above:Performed By: #### CBCA #### [facility] ([facility]) [address] [place] [address] VIRPlatelet mean volume (Bld) [Entitic vol]7.7 fLNormal7-12 ProMSelect Medical [facility] HospitalComment on above:Performed By: #### CBCA #### [facility] ([facility]) [address] [place] [address] VIRPlatelets (Bld) [#/Vol]337 10*3/uLYymqvm283-290AccUouykr [place] HospitalComment on above:Performed By: #### CBCA #### [facility] ([facility]) [address] [place] [address] VIRRBC COUNT4.46 X10E12/LNormal4.1-5.7ProK[facility] Comment on above:Performed By: #### CBCA #### [facility] ([facility]) [address] [place] [address] VIRWBC (Bld) [#/Vol]13.3 10*3/uLHigh4-11ProTrinity Health System Twin City Medical CenterComment on above:Performed By: #### CBCA #### [facility] ([facility]) [address] [place] [address] VIRCOMPREHENSIVE METABOLIC PANELon 82-22-2643Nuomyfl [Mass/Vol] 3.9 g/dLNormal3.2-5.3Pro[facility] HospitalComment on above:Performed By: #### CMP #### [facility] ([facility]) [address] [place] [address] VIRALP [Catalytic activity/Vol]58 U/VGdjpva89-188PzhMvqxix [place] HospitalComment on above:Performed By: #### CMP #### [facility] ([facility]) [address] [place] [address] VIRALT [Catalytic activity/Vol]13 U/LNormal<=40Pro[facility]kins HospitalComment on above:Performed By: #### CMP #### [facility] ([facility]) [address] [place] [address] VIRAnion gap [Moles/Vol]7 mmol/LNormal5-15[facility] HospitalComment on above:Performed By: #### CMP #### [facility] ([facility]) [address] [place] [address] VIRAST [Catalytic activity/Vol]19 U/LNormal<=41Pro[facility] HospitalComment on above:Performed By: #### CMP #### [facility] ([facility]) [address] [place] [address] VIRBilirubin [Mass/Vol]0.8 mg/dLNormal0.3-1.2Pro[facility] HospitalComment on above:Performed By: #### CMP #### [facility] ([facility]) [address] [place] [address] VIRCalcium [Mass/Vol]9.0 mg/dLNormal8.5-10.5[facility] HospitalComment on above:Performed By: #### CMP #### [facility] ([facility]) [address] [place] [address] VIRChloride [Moles/Vol]102 mmol/HOpjxuv96-286MpoVrtpjf [facility]kins HospitalComment on above:Performed By: #### CMP #### [facility] ([facility]) [address] [place] [address] VIRCO2 [Moles/Vol]28 mmol/HJiindl25-81FyjTipsef [facility] Comment on above:Performed By: #### CMP #### [facility] ([facility]) [address] [place] [address] VIRCreatinine [Mass/Vol]0.78 mg/dLNormal0.60-1.30[facility] HospitalComment on above:Result Comment: METHOD TRACEABLE TO IDMS STANDARDPerformed By: #### CMP #### [facility] ([facility]) [address] [place] [address] VIREGFR (CKD-EPI) NON-RACE DEPENDENT>^90Normal>=60Pro[facility] HospitalComment on above:Result Comment: Reported eGFR is based on the CKD-EPI 2020 equation that does not use a race coefficient.Performed By: #### CMP #### [facility] ([facility]) [address] [place] [address] VIRGlucose [Mass/Vol]90 mg/mEZnjzuq82-76DfrCgwuas Shannon HospitalComment on above:Performed By: #### CMP #### [facility] ([facility]) [address] [place] [address] VIRPotassium [Moles/Vol]4.3 mmol/LNormal3.5-5.0ProMedica Shannon HospitalComment on above:Performed By: #### CMP #### [facility] ([facility]) [address] [place] [address] VIRProtein [Mass/Vol]6.5 g/dLNormal6.0-8.0ProMedica Shannon HospitalComment on above:Performed By: #### CMP #### [facility] ([facility]) [address] [place] [address] VIRSodium [Moles/Vol]137 mmol/RVuqccv282-769IzpCzospj Shannon HospitalComment on above:Performed By: #### CMP #### [facility] ([facility]) [address] [place] [address] VIRUrea nitrogen [Mass/Vol]20 mg/dLNormal5-27ProMedica Shannon HospitalComment on above:Performed By: #### CMP #### [facility] ([facility]) [address] [place] [address] VIRFL SWALLOW MOTILITY FUNCTIONon [id number] SWALLOW MOTILITY FUNCTIONFL SWALLOW MOTILITY FUNCTION FL [...] by Denny Parekh MD on 07/08/2025 1:55 PMNormalMary Rutan HospitalLIPID PROFILEon [id number] [Mass/Vol]111 mg/iZTvr603-871 [facility] HospitalComment on above:Order Comment: fastingPerformed By: #### BEDG #### [facility] ([facility]) [address] [place] [address] VIRCholesterol in HDL [Mass/Vol]48 mg/dLNormal>39Mary Rutan HospitalComment on above:Order Comment: fastingResult Comment: HDL <40 mg/dL - High Risk HDL > or = 40mg/dL- Desirable HDL >60 mg/dL - Negative RiskPerformed By: #### BEDG #### [facility] ([facility]) [address] [place] [address] VIRCholesterol in LDL [Mass/Vol]51 mg/dLNormal<130Mary Rutan HospitalComment on above:Order Comment: fastingResult Comment: LDL <100 mg/dL - Desirable LDL >160 mg/dL - High RiskPerformed By: #### BEDG #### [facility] ([facility]) [address] [place] [address] VIRCHOLESTEROL:HDL2.7Owdlsa9.0-5.0ProKet[facility] Health [facility] Comment on above:Order Comment: fastingPerformed By: #### BEDG #### [facility] ([facility]) [address] [place] [address] VIRTriglyceride [Mass/Vol]59 mg/hDWbjlmb39-265TulTdnqdb [place] HospitalComment on above:Order Comment: fastingPerformed By: #### BEDG #### [facility] ([facility]) [address] [place] [address] VIRVERY LOW HGFQMKRGSIH33 mg/dLNormal0-30ProTr[facility] Medical CenterComment on above:Order Comment: fastingPerformed By: #### BEDG #### [facility] ([facility]) [address] [place] [address] VIRB-TYPE NATRIURETIC PEPTIDEon 43-38-7543Jecwgyhlamc peptide B (Bld) [Mass/Vol]45 pg/mLNormal<=100ProTrinity Health System Twin City Medical CenterComment on above: Performed By: #### BNP #### [facility] ([facility]) [address] [place] [address] VIRBEDSIDE GLUCOSEon 88-64-5736Xkrdmjx [Mass/Vol]117 mg/dLHigh 65-99ProTrinity Health System Twin City Medical CenterComment on above:Performed By: #### BEDG #### [facility] ([facility]) [address] [place] [address] VIRCBC WITH AUTO DIFFERENTIALon 43-70-1468OWQUDGXVW ABSOLUTE COUNT (10*3/UL) BY AUTOMATED COUNT0.0 10*3/uLNormal0.0-0.2ProMedProMedica Flower HospitalComment on above:Performed By: #### CBCA #### [facility] ([facility]) [address] [place] [address] VIRBASOPHILS RELATIVE PERCENT BY AUTOMATED COUNT0.3 %Normal [facility] Shannon HospitalComment on above:Performed By: #### CBCA #### [facility] ([facility]) [address] [place] [address] VIRCELLAVISION DIFFERENTIAL TYPEAUTOMATED DIFFERENTIALNormal [facility] HospitalComment on above:Performed By: #### CBCA #### [facility] ([facility]) [address] [place] [address] VIREosinophils (Bld) [#/Vol]0.0 10*3/uLNormal0.0-0.4ProBlanchard Valley Health Systemca Shannon HospitalComment on above:Performed By: #### CBCA #### [facility] ([facility]) [address] [place] [address] VIREOSINOPHILS RELATIVE PERCENT BY AUTOMATED COUNT0.1 %Normal [facility] HospitalComment on above:Performed By: #### CBCA #### [facility] ([facility]) [address] [place] [address] VIRErythrocyte distribution width (RBC) [Ratio]12.8 %Normal 11.5-15ProBlanchard Valley Health Systemca Shannon HospitalComment on above:Performed By: #### CBCA #### [facility] ([facility]) [address] [place] [address] VIRHematocrit (Bld) [Volume fraction]40.0 %Hhbvyd67-55EyoHtxgfd [place] HospitalComment on above:Performed By: #### CBCA #### [facility] ([facility]) [address] [place] [address] VIRHemoglobin (Bld) [Mass/Vol]13.3 g/sZEzsyga49-95XucGxktbl [place] HospitalComment on above:Performed By: #### CBCA #### [facility] ([facility]) [address] [place] [address] VIRLYMPHOCYTES ABSOLUTE COUNT (10*3/UL) BY AUTOMATED COUNT0.2 10*3/uLLow1.0-3.5ProMedica Shannon HospitalComment on above:Performed By: #### CBCA #### [facility] ([facility]) [address] [place] [address] VIRLYMPHOCYTES RELATIVE PERCENT BY AUTOMATED COUNT2.4 %Normal ProMSelect Medical Cleveland [facility] Hospital, Edwin Shaw HospitalComment on above:Performed By: #### CBCA #### [facility] ([facility]) [address] [place] [address] VIRMCH (RBC) [Entitic mass]29.4 plDmasdf90-36EgaNpswxj Shannon HospitalComment on above:Performed By: #### CBCA #### [facility] ([facility]) [address] [place] [address] VIRMCHC (RBC) [Mass/Vol]33.4 g/cNAyjjgn78-46KjiItbdtz Shannon HospitalComment on above:Performed By: #### CBCA #### [facility] ([facility]) [address] [place] [address] VIRMCV (RBC) [Entitic vol]88 vBKbvamz62-162EtkMdlbaw Shannon HospitalComment on above:Performed By: #### CBCA #### [facility] ([facility]) [address] [place] [address] VIRMONOCYTES ABSOLUTE COUNT (10*3/UL) BY AUTOMATED COUNT0.1 10*3/uLNormal0.0-0.9ProKettering Health Greene Memorial HospitalComment on above:Performed By: #### CBCA #### [facility] ([facility]) [address] [place] [address] VIRMONOCYTES RELATIVE PERCENT BY AUTOMATED COUNT0.9 %Normal ProMSelect Medical [facility] Hospital, [facility] Shaw HospitalComment on above:Performed By: #### CBCA #### [facility] ([facility]) [address] [place] [address] VIRNEUTROPHILS ABSOLUTE COUNT BY AUTOMATED COUNT9.2 10*3/uLHigh 1.5-6.6ProBlanchard Valley Health Systemca Shannon HospitalComment on above:Performed By: #### CBCA #### [facility] ([facility]) [address] [place] [address] VIRNEUTROPHILS RELATIVE PERCENT BY AUTOMATED COUNT96.3 %Normal ProMSelect Medical Cleveland [facility] Hospital, [facility] HospitalComment on above:Performed By: #### CBCA #### [facility] ([facility]) [address] [place] [address] VIRPlatelet mean volume (Bld) [Entitic vol]7.5 fLNormal7-12 ProMSelect Medical Cleveland Clinic Rehabilitation Hospital, [facility] Shaw HospitalComment on above:Performed By: #### CBCA #### [facility] ([facility]) [address] [place] [address] VIRPlatelets (Bld) [#/Vol]314 10*3/iBVkpzml231-537ZjpFmizou Shannon HospitalComment on above:Performed By: #### CBCA #### [facility] ([facility]) [address] [place] [address] VIRRBC COUNT4.53 X10E12/LNormal4.1-5.7ProKettering Health [facility] Memorial Hospital Comment on above:Performed By: #### CBCA #### [facility] ([facility]) [address] [place] [address] VIRWBC (Bld) [#/Vol]9.5 10*3/uLNormal4-11ProKettering Health Greene Memorial HospitalComment on above:Performed By: #### CBCA #### [facility] ([facility]) [address] [place] [address] VIRCOMPREHENSIVE METABOLIC PANELon 93-40-9236Nixnewp [Mass/Vol] 4.0 g/dLNormal3.2-5.3ProMedica Shannon HospitalComment on above:Performed By: #### CMP #### [facility] ([facility]) [address] [place] [address] VIRALP [Catalytic activity/Vol]63 U/XQfjjub04-500DeyLjgbre Shannon HospitalComment on above:Performed By: #### CMP #### [facility] ([facility]) [address] [place] [address] VIRALT [Catalytic activity/Vol]14 U/LNormal<=40ProMedica Shannon HospitalComment on above:Performed By: #### CMP #### [facility] ([facility]) [address] [place] [address] VIRAnion gap [Moles/Vol]7 mmol/LNormal5-15ProMedica Shannon HospitalComment on above:Performed By: #### CMP #### [facility] ([facility]) [address] [place] [address] VIRAST [Catalytic activity/Vol]16 U/LNormal<=41ProMedica Shannon HospitalComment on above:Performed By: #### CMP #### [facility] ([facility]) [address] [place] [address] VIRBilirubin [Mass/Vol]0.7 mg/dLNormal0.3-1.2ProMedGerman Hospital HospitalComment on above:Performed By: #### CMP #### [facility] ([facility]) [address] [place] [address] VIRCalcium [Mass/Vol]8.8 mg/dLNormal8.5-10.5ProMedGerman Hospital HospitalComment on above:Performed By: #### CMP #### [facility] ([facility]) [address] [place] [address] VIRChloride [Moles/Vol]100 mmol/HDzzdlb84-921QjsUbfrtg Shannon HospitalComment on above:Performed By: #### CMP #### [facility] ([facility]) [address] [place] [address] VIRCO2 [Moles/Vol]30 mmol/VVgmkkl21-55VkgFwyami [facility] Comment on above:Performed By: #### CMP #### [facility] ([facility]) [address] [place] [address] VIRCreatinine [Mass/Vol]0.92 mg/dLNormal0.60-1.30ProKettering Health Greene Memorial HospitalComment on above:Result Comment: METHOD TRACEABLE TO IDMS STANDARDPerformed By: #### CMP #### [facility] ([facility]) [address] [place] [address] VIREGFR (CKD-EPI) NON-RACE DEPENDENT>^90Normal>=60ProKettering Health Greene Memorial HospitalComment on above:Result Comment: Reported eGFR is based on the CKD-EPI 2020 equation that does not use a race coefficient.Performed By: #### CMP #### [facility] ([facility]) [address] [place] [address] VIRGlucose [Mass/Vol]124 mg/pDIxqh69-83UbiFbsbwl [place] HospitalComment on above:Performed By: #### CMP #### [facility] ([facility]) [address] [place] [address] VIRPotassium [Moles/Vol]3.9 mmol/LNormal3.5-5.0ProKettering Health Greene Memorial HospitalComment on above:Performed By: #### CMP #### [facility] ([facility]) [address] [place] [address] VIRProtein [Mass/Vol]6.6 g/dLNormal6.0-8.0ProKettering Health Greene Memorial HospitalComment on above:Performed By: #### CMP #### [facility] ([facility]) [address] [place] [address] VIRSodium [Moles/Vol]137 mmol/IUcmewp297-002JyaQcpted [place] HospitalComment on above:Performed By: #### CMP #### [facility] ([facility]) [address] [place] [address] VIRUrea nitrogen [Mass/Vol]17 mg/dLNormal5-27ProTrinity Health System Twin City Medical CenterComment on above:Performed By: #### CMP #### [facility] ([facility]) [address] [place] [address] VIRCT CEREBRAL PERF ANALYSISon 97-39-5769KI CEREBRAL PERF ANALYSISCT CEREBRAL PERF ANALYSIS CT [...] by Kishore Thomas MD on 07/07/2025 2:47 PMNormalProTrinity Health System Twin City Medical CenterHEMOGLOBIN A1Con 29-23-9891Wfcehkb [Mass/Vol]117 mg/dLNormalProTrinity Health System Twin City Medical CenterComment on above:Performed By: #### HA1C #### [facility] ([facility]) [address] [place] [address] REHLoJ4q (Bld) [Mass fraction]5.7 %High4.4-5.6ProTrinity Health System Twin City Medical CenterComment on above:Result Comment: ADA Guidelines Result HgbA1c Normal : less than 5.7 % Prediabetes : 5.7 % to 6.4 % Diabetes : > 6.4 % Use with caution in patients with abnormal hemoglobin variants as the half-life of red blood cells and in vivo glycation rates are affected.Performed By: #### HA1C #### [facility] ([facility]) [address] [place] [address] VIRMR BRAIN WO CONTon 60-74-7704RX BRAIN WO CONTMR BRAIN WO CONT MRI [...] by Mich Diaz MD on 07/07/2025 9:12 [facility] VWon 97-92-3189RZ CHEST 1 VWXR CHEST 1 VW Single view chest History: Difficulty breathing, shortness of breath Comparison: 03/08/2022 Impression: No acute pulmonary process. No pneumothorax or pleural effusion. Nonenlarged heart. Finalized by Mark Anthony MD on 07/07/2025 7:20 [facility] 2Von 03-45[place] [address] XRay Report Signed Patient: SAM CARRASCO MR#: [id number] : 1960 Acct:[id number] Age/Sex: 64 / M ADM Date: 11/16/24 Loc: RAD Attending Dr: Azul Quezada NP Ordering Physician: Azul Quezada NP Date of Service: 11/16/24 Procedure(s): XR chest 2V Accession Number(s): [id number] cc: Azul Quezada NP [address] [address] Patient Name: SAM CARRASCO MRN: [id number] date: 1960 Sex: M Assigned Patient Location: RAD Current Patient Location: RAD Accession/Order Number: [id number] Exam Date: 11/16/2024 19:23 Report Date: 11/16/2024 [...] Carlos Knight M.D.11/16/2024 7:24 PM Dictation Location: [place] [address] Electronically authenticated by: [id number] Y Date: 11/16/2024 19:24 Dictated By: Carlos Knight M.D. Signed By: 11/16/241925 DD/ 23 TD/TT: Material Stockkeeper Yard:JACKELYNHRadiology, Radiologist, - 11/16/2024 [address] [place] [id number] XRay Report Signed Patient: SAM CARRASCO MR#: [id number] : 1960 Acct:[id number] Age/Sex: 64 / M ADM Date: 11/16/24 Loc: RAD Attending Dr: Azul Quezada NP Ordering Physician: Azul Quezada NP Date of Service: 11/16/24 Procedure(s): XR chest 2V Accession Number(s): [id number] cc: Azul Quezada NP The [place] [id number] Patient Name: SAM CARRASCO MRN: [id number] date: 1960 Sex: M Assigned Patient Location: RAD Current Patient Location: RAD Accession/Order Number: [id number] Exam Date: 11/16/2024 19:23 Report Date: 11/16/2024 [...] Carlos Knight M.D.11/16/2024 7:24 PM Dictation Location: [place] [address] Electronically authenticated by: [id number] Y Date: 11/16/2024 19:24 Dictated By: Carlos Knight M.D. Signed By: 11/16/241925 DD/ 23 TD/TT: Material Stockkeeper Yard: KAELYN HealthcareRadiology Study observation (narrative)NOM[facility] HealthcareXR CHEST 2V Ordered By: Radiologist Radiology on 91-46-7911LAIT [facility] Work Phone: aLL HEMOGLOBINon 17-09-4922Jywymivgbr (Bld) [Mass/Vol] 14.8 g/dL14.0 - 18.0 g/dLNODC HealthcareCLINISYNCNOMS HealthcareCT LUNG SCREENING LOW DOSEon 21-86-7797E[address] [address] [address] Scan Report Signed Patient: SAM CARRASCO MR#: [id number] : 1960 Acct:[id number] Age/Sex: 64 / M ADM Date: 09/06/24 Loc: CT Attending Dr: Jameson White D.O. Ordering Physician: Jameson White D.O. Date of Service: 09/06/24 Procedure(s): CT lung screening low-dose Accession Number(s): [id number] cc: Azul Quezada NP [address] [address] Patient Name: SAM CARRASCO MRN: [id number] date: 1960 Sex: M Assigned Patient Location: CT Current Patient Location: Accession/Order Number: [id number] Exam Date: 09/06/2024 14:22 Report Date: 09/08/2024 [...] M.D. Signed By: 09/08/24 0551 DD/ TD/TT: Material Stockkeeper Yard:TBHRadiology, Radiologist, - 09/08/2024 [place] [address] CT Scan Report Signed Patient: SAM CARRASCO MR#: [id number] : 1960 Acct:[id number] Age/Sex: 64 / M ADM Date: 09/06/24 Loc: CT Attending Dr: Jameson White D.O. Ordering Physician: Jameson White D.O. Date of Service: 09/06/24 Procedure(s): CT lung screening low-dose Accession Number(s): [id number] cc: Azul Quezada NP The [address] [address] Patient Name: SAM CARRASCO MRN: [id number] date: 1960 Sex: M Assigned Patient Location: CT Current Patient Location: Accession/Order Number: [id number] Exam Date: 09/06/2024 14:22 Report Date: 09/08/2024 [...] Olson M.D. Signed By: 09/08/2451 DD/ TD/TT: Material Stockkeeper Yard: [facility] HealthcareRadiology Study observation (narrative)[facility] HealthcareCT LUNG SCREENING LOW DOSEOrdered By: Radiologist Radiology on 18-47-3500YDOJ [employer] [facility] Work Phone: PSA TOTAL+% FREEon 09-07-2024% FREE PSA26.0 %.[facility] HealthcareComment on above:The table below lists the [...] any other population of men. Performed at: [facility] [employer] [id number] Chief Librarian Extension Department: Mich Orozco PhD, Phone: [phone] Prostate specific Ag [Mass/Vol]1.0 ng/mL0.0 - 4.0 ng/mLNSAINT FRANC[facility] HealthcareComment on above:Darlin ECLIA methodology. According to the [employer], Serum PSA should decrease and [...] FREE0.26 ng/mLN/ANOMS HealthcareComment on above:Darlin ECLIA methodology. CLINISYMetropolitan HospitalALL CBC WITH AUTO DIFFon 64-54-5942WXPCCKBXD ABSOLUTE AUTO0.1NOMS HealthcareBasophils/100 WBC (Bld)0.9 %0.2 - 2.0 %[facility] Eosinophils/100 WBC (Bld)0.1 %Low0.9 - 7.0 %[facility] CenterErythrocyte distribution width (RBC) [Ratio]12.8 %11.0 - 15.0 %[facility] CenterHematocrit (Bld) [Volume fraction]43.1 %42.0 - 54.0 %[facility] CenterHemoglobin (Bld) [Mass/Vol]13.9 g/dLLow14.0 - 18.0 g/dLNevada Regional Medical CenterIMMATURE GRANULOCYTES ABS AUTO0.03NOTexas County Memorial HospitalImmature granulocytes/100 WBC (Bld)0.3 %0.0 - 0.5 %[facility] CenterInterpretation and review of laboratory resultsAbnormalN[facility] LYMPHOCYTES ABSOLUTE AUTO1.2NOMS Holzer HospitalLymphocytes/100 WBC (Bld)14 %Low20.5 - 60.0 %[facility]fieldH (RBC) [Entitic mass]30.3 pg25.9 - 34.0 pgMercy hospital springfieldHC (RBC) [Mass/Vol]32.3 g/dL29.9 - 35.2 g/dLMercy hospital springfieldV (RBC) [Entitic vol]94.1 cQBvyw67.0 - 94.0 fLNevada Regional Medical CenterMONOCYTES ABSOLUTE AUTO0.9 HighJORDAN VALLEY [facility] HealthcareMonocytes/100 WBC (Bld)9.7 %1.7 - 12.0 %[facility] NEUTROPHILS ABSOLUTE AUTO6.5NOTexas County Memorial HospitalNeutrophils/100 WBC (Bld)75 %43.0 - 75.0 %[facility] Medical CenterPlatelet mean volume (Bld) [Entitic vol]10.1 fL9.5 - 13.5 fLNOMS HealthcareTBH EO #0NOMS HealthcareTBH [id number] HealthcareTBH RBC4.58Low NOMS HealthcareTBH WBC8.7NOMS HealthcareCLINISYNCNOMS HealthcareTBH UA (CLEAN/CATCH) MICROSCOPIC IF INDICATEon 65-97-0557ZXTGPERKC URINENegative NEGATIVENOMS HealthcareBLOOD URINENegativeNEGATIVENOMS HealthcareClarity (U) CLEARCLEARNOMS HealthcareColor (U)LT. YELLOWYELLOWNOMS HealthcareGLUCOSE URINE UANegativeNEGATIVE mg/dLNODC HealthcareInterpretation and review of laboratory resultsAbnormalNOMS HealthcareKetones Ql (U)NegativeNEGATIVE mg/dLNOMS HealthcareLeukocyte esterase Test strip Ql (U)SMALLAbnormalNEGATIVENOMS HealthcareNITRITE URINENegativeNEGATIVENOMS HealthcarepH (U)6.0 [pH]5.0 - 9.0 N[facility]S HealthcarePROTEIN URINENegativeNEG/TRACE mg/dLNOMS HealthcareSPECIFIC GRAVITY URINE1.0151.005 - 1.025NODC HealthcareURINE MICROSCOPIC INDICATEDYESNOMS HealthcareUROBILINOGEN URINE0.2 EU/dL0.2 - 1.0 EU/dLNODC HealthcareCLINISYNC NOMS HealthcareBNPon 92-12-3508Aophqrgdkbj peptide B (Bld) [Mass/Vol]42.0 pg/mL Normal<=900.0The [facility] Health CenterComment on above:Performed By: #### INFLUAB #### [facility] [address] [place] [address] Dr. Tom Mendez AUTO DIFFon 17-05-3175CJQB #0.1 103/ulNormal0.0-0.1The [facility] Health CenterComment on above:Performed By: #### CBC #### [facility] [address] [place] [address] [address] Tom Santiagosophils/100 WBC (Bld)0.8 %Normal0.2-2.0The [facility] Comment on above:Performed By: #### CBC #### [facility] [address] [place] [address] [address] Santos ChangEPrimo #0.0 103/ulNormal0.0-0.7The Hallsville HospitalComment on above: Performed By: #### CBC #### [facility] [address] [place] [address] Dr. Tom Mannosinophils/100 WBC (Bld)0.0 %Critically low0.9-7.0The [facility] Health CenterComment on above:Performed By: #### CBC #### [facility] [address] [place] [address] Dr. Tom Mannrythrocyte distribution width (RBC) [Ratio]12.4 %Rbqljr60.0-15.0 The [facility] Health CenterComment on above:Performed By: #### CBC #### [facility] [address] [place] [address] Dr. Tom DotsonHematocrit (Bld) [Volume fraction]43.6 %Zleoql94.0-54.0The [facility] Health CenterComment on above:Performed By: #### CBC #### [facility] [address] [place] [address] Dr. Tom DotsonHemoglobin (Bld) [Mass/Vol]14.3 g/rLZaywus86.0-18.0The [facility] CenterComment on above:Performed By: #### CBC #### [facility] [address] [place] [address] Dr. Tom Salgado #0.02 10e3/ulNormal0.00-0.03The [facility] Health CenterComment on above:Performed By: #### CBC #### [facility] [address] [place] [address] Dr. Tom Salgado %0.3 %Normal0.0-0.5The [facility] Health CenterComment on above: Performed By: #### CBC #### [facility] [address] [place] [address] Dr. Tom MenjivarH #1.4 103/ulNormal1.2-3.8The [facility] Health CenterComment on above:Performed By: #### CBC #### [facility] [address] [place] [address] Dr. Tom Lugomphocytes/100 WBC (Bld)17.3 %Critically low20.5-60.0The [facility] Health CenterComment on above:Performed By: #### CBC #### [facility] [address] [place] [address] Dr. Tom Tang DIFF REQNONormalThe [facility] County Health CenterComment on above: Performed By: #### CBC #### [facility] [address] [place] [address] Dr. Tom Anderson (RBC) [Entitic mass]29.8 eaZljtsw80.9-34.0The [facility] Health CenterComment on above:Performed By: #### CBC #### [facility] [address] [place] [address] Dr. Tom Anderson (RBC) [Mass/Vol]32.8 g/zFRwqudp65.9-35.2The [facility] Health CenterComment on above:Performed By: #### CBC #### [facility] [address] [place] [address] Dr. Tom Briggs (RBC) [Entitic vol]90.8 sMBolxfk32.0-94.0The [facility] CenterComment on above:Performed By: #### CBC #### [facility] [address] [place] [address] Dr. Tom Baires #0.7 103/ulNormal0.3-0.8The [facility] Health CenterComment on above:Performed By: #### CBC #### [facility] [address] [place] [address] Dr. Tom Phanocytes/100 WBC (Bld)9.4 %Normal1.7-12.0The [facility] Comment on above:Performed By: #### CBC #### [facility] [address] [place] [address] Dr. Tom Kevin #5.7 103/ulNormal1.4-6.5The [facility] Health CenterComment on above:Performed By: #### CBC #### [facility] [address] [place] [address] Dr. Tom Watermanophils/100 WBC (Bld)72.2 %Kklpcr90.0-75.0The [facility] Health CenterComment on above:Performed By: #### CBC #### [facility] [address] [place] [address] Dr. Tom Monroy mean volume (Bld) [Entitic vol]9.6 fLNormal9.5-13.5The [facility] CenterComment on above:Performed By: #### CBC #### [facility] [address] [place] [address] Dr. Tom PoeT331 103/gmXyamdx651-237Quz [facility] CenterComment on above: Performed By: #### CBC #### [facility] [address] [place] [address] Dr. Tom DotsonRBC4.80 106/ulNormal4.70-6.10The [facility] County [facility] CenterComment on above:Performed By: #### CBC #### [facility] [address] [place] [address] Dr. Tom DotsonWBC7.8 103/ulNormal4.0-11.0The [facility] County [facility] CenterComment on above: Performed By: #### CBC #### [facility] [address] [place] [address] Dr. Tom rPo BLOODon [id number] examination of blood, cultureCulture Observations: NO GROWTH AT 5 DAYS.NormalThe [facility] County Health CenterComment on above:Performed By: #### INFLUAB #### [facility] [address] [place] [address] Dr. Tom DotsonMicroscopic examination of blood, cultureCulture Observations: NO GROWTH AT 5 DAYS.NormalThe [facility] County Health CenterComment on above:Performed By: #### INFLUAB #### [facility] [address] [place] [address] Dr. Tom DotsonCovid-19 PCR (CVDTB)on [id number]-CoV-2 (COVID-19) RNA OLGA+probe Ql (Unsp spec)Not detectedNormalNOT DETECTEDThe [facility] Comment on above:Result Comment: When diagnostic testing [...] for this test is supported by the [place] [employer]'s declaration that [...] longer be used).Performed By: #### CVDTBH #### [facility] [address] [place] [address] Dr. Tom Carvalho AND B AGon [id number] Main Campus Medical Center on above:Result Comment: Negative for Flu A protein angiten. Infection due to Flu A cannot be ruled out. FluA angiten in the sample may be below the detection limit of the test.Performed By: #### INFLUAB #### [facility] [address] [place] [address] Dr. Tom LagosNEGPABLO [facility] on above: Result Comment: Negative for Flu B protein antigen. Infection due to Flu B cannot be ruled out. FluB antigen in the sample may be below the detection limit of the test.Performed By: #### INFLUAB #### [facility] [address] [place] [address] Dr. Tom Carvalho AGNegativeNormalNEGATIVE SEE COMMENTThe [facility] on above:Performed By: #### INFLUAB #### [facility] [address] [place] [address] Dr. Tom Chavez AGNegativeNormalNEGATIVE SEE COMMENTThe Hallsville HospitalComment on above:Performed By: #### INFLUAB #### [facility] [address] [address] [address] Tom DotsonLACTATE/LACTIC ACIDon [id number] [Moles/Vol]0.7 mmol/L Normal0.4-1.9The [facility] CenterComment on above:Performed By: #### LACT #### [facility] [address] [address] [address] Tom DotsonPROF CHEM 8 (BAS METB)on [id number] gap [Moles/Vol]9.3 mmol/LNormalThe [facility] CenterComment on above:Performed By: #### HSTROPN, BMP, BNP #### [facility] [address] [place] [address] Dr. Tom DotsonCalcium [Mass/Vol]8.8 mg/dLNormal8.5-10.1The [facility] Comment on above:Performed By: #### HSTROPN, BMP, BNP #### [facility] [address] [place] [address] Dr. Tom DotsonChloride [Moles/Vol]103 mmol/YBpfzvc08-748Ugw [facility] Comment on above:Performed By: #### HSTROPN, BMP, BNP #### [facility] [address] [place] [address] Dr. Tom DotsonCO2 [Moles/Vol]31.1 mmol/ENsdyyu07.0-32.0The [facility] Comment on above:Performed By: #### HSTROPN, BMP, BNP #### [facility] [address] [place] [address] Dr. Tom DotsonCreatinine [Mass/Vol]0.77 mg/dLNormal0.70-1.30The [facility] CenterComment on above:Performed By: #### HSTROPN, BMP, BNP #### [facility] [address] [place] [address] Dr. Santos ChangEGFR-AF INDONESIAN>60Normal>=60The [facility] CenterComment on above:Performed By: #### HSTROPN, BMP, BNP #### [facility] [address] [address] [address] Tom MannGFR-NON AF INDONESIAN>60Normal>=60The [facility] CenterComment on above:Performed By: #### HSTROPN, BMP, BNP #### [facility] [address] [address] [address] Tom DotsonGlucose [Mass/Vol]98 mg/uTNfgczy21-554LmwThe [facility] Comment on above:Performed By: #### HSTROPN, BMP, BNP #### [facility] [address] [place] [address] Dr. Tom DotsonPotassium [Moles/Vol]4.4 mmol/LNormal3.5-5.1The [facility] Comment on above:Performed By: #### HSTROPN, BMP, BNP #### [facility] [address] [place] [address] Dr. Tom Kesslerdium [Moles/Vol]139 mmol/JVhvjny798-250SiyThe [facility] Comment on above:Performed By: #### HSTROPN, BMP, BNP #### [facility] [address] [address] [address] Tom DotsonUrea nitrogen [Mass/Vol]13.0 mg/dLNormal7.0-18.0The [facility] CenterComment on above:Performed By: #### HSTROPN, BMP, BNP #### [facility] [address] [place] [address] Dr. Tom Reed nitrogen/Creatinine [Mass ratio]16.9 mg/mgNormalThe [facility] CenterComment on above:Performed By: #### HSTROPN, BMP, BNP #### [facility] [address] [place] [address] Dr. Tom Stover, HIGH SENSITIVITYon 76-83-3007DKZBEU4.4 pg/mLNormal 4.0-76.1[facility] on above:Result Comment: CUT-OFF POINTS HAVE BEEN ESTABLISHED BASED ON THE FOURTH UNIVERSAL DEFINITIONS OF MYOCARDIAL INFARCTION. THE UPPER REFERENCE LIMIT (URL) OF TROPONIN, DEFINED THE 99TH PERCENTILE OF cTnI DISTRIBUTION IN A REFERENCE POPULATION, HAS BEEN CONFIRMED THE DECISION THRESHOLD FOR TX DIAGNOSIS.Performed By: #### INFLUAB #### [facility] [address] [place] [address] Dr. Tom DotsonXR CHEST 1 Von [id number] CHEST 1 VEXAMINATION: XR CHEST 1 V [...] Electronically authenticated by: YARIEL OLSON Date: 2022-09-25 10:55NormalThFairfield Medical CenterASPERGILLUS AB, QUANTITATIVE DIDon 28-88-9794Sqdbuaijfky flavus NegativeNormalNeg:<1:1The [facility] CenterComment on above:Performed By: #### ASPDID #### [facility] [address] [place] [address] Dr. Tom Garcias fumigatusNegativeNormalNeg:<1:1[facility] Comment on above:Performed By: #### ASPDID #### [facility] [address] [address] [address] Tom Garcias nigerNegativeNormalNeg:<1:1[facility] Comment on above:Performed By: #### ASPDID #### [facility] [address] [place] [address] Dr. Tom DotsonANTI NEUTROPHIL CYTOPLASMIC AB (ANCA) PRon [id number]-MPO Antibodies<0.6Hwriho7.0-0.9The [facility] CenterComment on above:Result Comment: Performed at: BNPerformed By: #### CBC #### [facility] [address] [place] [address] Dr. Tom DotsonAnti-PR3 Antibodies<0.8Xrnzrq0.0-0.9The [facility] CenterComment on above:Result Comment: Performed at: BNPerformed By: #### CBC #### [facility] [address] [place] [address] Dr. Tom DotsonAtypical pANCA<1:20NormalNeg:<1:20ThFairfield Medical CenterComment on above:Result Comment: The atypical pANCA pattern has been observed in a significant percentage of patients with ulcerative colitis, primary sclerosing cholangitis and autoimmune hepatitis. Performed at: CBPerformed By: #### CBC #### [facility] [address] [place] [address] Dr. Tom DotsonCytoplasmic (C-ANCA)<1:20NormalNeg:<1:20ThFairfield Medical Center Comment on above:Result Comment: Performed at: CBPerformed By: #### CBC #### [facility] [address] [place] [address] Dr. Tom DotsonPerinuclear (P-ANCA)<1:20NormalNeg:<1:20ThFairfield Medical Center Comment on above:Result Comment: The presence of positive fluorescence exhibiting P-ANCA or C-ANCA patterns alone is not specific for the diagnosis of Nevin's Granulomatosis (WG) or microscopic polyangiitis. Decisions about treatment should not be based solely on ANCA IFA results. The International ANCA Group Consensus recommends follow up testing of positive sera with both MS-3 and MPO-ANCA enzyme immunoassays. As many as 5% serum samples are positive only by EIA. Ref. AM J Clin Pathol 1999;111:507-513. Performed at: CBPerformed By: #### CBC #### [facility] [address] [place] [address] Dr. Tom DotsonIMMUNOGLOBULIN E, TOTALon 00-57-8447Kiwpcrxxgudkig E, Total68 IU/mLNormal6-495The [facility] CenterComment on above:Performed By: #### IGETOT #### [facility] [address] [place] [address] Dr. Tom DotsonANGIOTENSION-CONVERTING ENZYME (ELINOR)on 93-70-8804UUL13 U/LNormal 14-82The [facility] CenterComment on above:Performed By: #### ANGIOC #### [facility] [address] [place] [address] Dr. Tom IbarraC AUTO DIFFon 70-08-1938VZHK #0.1 103/ulNormal0.0-0.1The [facility] CenterComment on above:Performed By: #### INFLUAB #### [facility] [address] [place] [address] Dr. Tom DotsonBasophils/100 WBC (Bld)1.0 %Normal0.2-2.0The [facility] Comment on above:Performed By: #### INFLUAB #### [facility] [address] [place] [address] Dr. Tom MannO #0.0 103/ulNormal0.0-0.7The [facility] CenterComment on above: Performed By: #### INFLUAB #### [facility] [address] [place] [address] Dr. Tom Mannosinophils/100 WBC (Bld)0.1 %Critically low0.9-7.0The [facility] on above:Performed By: #### INFLUAB #### [facility] [address] [place] [address] Dr. Tom Mannrythrocyte distribution width (RBC) [Ratio]12.9 %Vhgoro40.0-15.0 The [facility] CenterComment on above:Performed By: #### INFLUAB #### [facility] [address] [place] [address] Dr. Tom DotsonHematocrit (Bld) [Volume fraction]44.8 %Zctbhv88.0-54.0The [facility] Westment on above:Performed By: #### INFLUAB #### [facility] [address] [place] [address] Dr. Tom DotsonHemoglobin (Bld) [Mass/Vol]15.0 g/lMEzhpfd62.0-18.0The Joel HospitalComment on above:Performed By: #### INFLUAB #### [facility] [address] [address] [address] Tom Salgado #0.02 10e3/ulNormal0.00-0.03The [facility] CenterComhutzel women[facility] hospital on above:Performed By: #### INFLUAB #### [facility] [address] [place] [address] Dr. Tom Salgado %0.2 %Normal0.0-0.5The [facility] CenterComhutzel women's hospital on above: Performed By: #### INFLUAB #### [facility] [address] [place] [address] Dr. Tom Lares #1.4 103/ulNormal1.2-3.8The [facility] CenterComhutzel women's hospital on above:Performed By: #### INFLUAB #### [facility] [address] [place] [address] Dr. Tom Menjivarhocytes/100 WBC (Bld)17.6 %Critically low20.5-60.0The [facility] CenterComhutzel women's hospital on above:Performed By: #### INFLUAB #### [facility] [address] [place] [address] Dr. Tom McgillUAL DIFF REQNONormalThe [facility] CenterComment on above: Performed By: #### INFLUAB #### [facility] [address] [place] [address] Dr. Tom Anderson (RBC) [Entitic mass]30.9 zaRutujv33.9-34.0The [facility] CenterComment on above:Performed By: #### INFLUAB #### [facility] [address] [place] [address] Dr. Tom Anderson (RBC) [Mass/Vol]33.5 g/sWSkkpzv88.9-35.2The [facility] CenterComhutzel women's hospital on above:Performed By: #### INFLUAB #### [facility] [address] [place] [address] Dr. Tom Anderson (RBC) [Entitic vol]92.2 bUYexwko50.0-94.0The [facility] CenterComment on above:Performed By: #### INFLUAB #### [facility] [address] [place] [address] Dr. Tom Baires #0.8 103/ulNormal0.3-0.8The [facility] CenterComment on above:Performed By: #### INFLUAB #### [facility] [address] [place] [address] Dr. Tom Phanocytes/100 WBC (Bld)9.6 %Normal1.7-12.0The [facility] Comment on above:Performed By: #### INFLUAB #### [facility] [address] [place] [address] Dr. Tom Kevin #5.9 103/ulNormal1.4-6.5The [facility] CenterComment on above:Performed By: #### INFLUAB #### [facility] [address] [place] [address] Dr. Tom Riverautrophils/100 WBC (Bld)71.5 %Gaxjkr33.0-75.0The [facility] CenterComment on above:Performed By: #### INFLUAB #### [facility] [address] [place] [address] Dr. Tom Monroy mean volume (Bld) [Entitic vol]9.9 fLNormal9.5-13.5The [facility] CenterComment on above:Performed By: #### INFLUAB #### [facility] [address] [place] [address] Dr. Tom DotsonPLT325 103/ptWrsxyj479-059Xvg [facility] CenterComment on above: Performed By: #### INFLUAB #### [facility] [address] [place] [address] Dr. Tom DotsonRBC4.86 106/ulNormal4.70-6.10The [facility] CenterComment on above:Performed By: #### INFLUAB #### [facility] [address] [place] [address] Dr. Tom DotsonWBC8.2 103/ulNormal4.0-11.0The [facility] CenterComment on above: Performed By: #### INFLUAB #### [facility] [address] [address] [address] Tom Meza LUNG CANCER SCREENINGon [id number] LUNG CANCER SCREENING EXAMINATION: CT LUNG CANCER [...] Electronically authenticated by: YARIEL OLSON Date: 2022-04-10 22:[address] [place] [address] AUTO DIFFon [id number] #0.1 103/ulNormal0.0-0.1The [facility] CenterComment on above:Performed By: #### CBC #### [facility] [address] [place] [address] Dr. Tom DotsonBasophils/100 WBC (Bld)1.0 %Normal0.2-2.0The [facility] Comment on above:Performed By: #### CBC #### [facility] [address] [address] [address] Tom Xiao #2.5 103/ulCritically high0.0-0.7The [facility] CenterComment on above:Performed By: #### CBC #### [facility] [address] [place] [address] Dr. Tom Mannosinophils/100 WBC (Bld)29.1 %Critically high0.9-7.0The [facility] CenterComment on above:Performed By: #### CBC #### [facility] [address] [place] [address] Dr. Tom Mannrythrocyte distribution width (RBC) [Ratio]12.8 %Mlzvkr41.0-15.0 The [facility] CenterComment on above:Performed By: #### CBC #### [facility] [address] [place] [address] Dr. Tom DotsonHematocrit (Bld) [Volume fraction]46.6 %Jaetvh91.0-54.0The [facility] CenterComment on above:Performed By: #### CBC #### [facility] [address] [place] [address] Dr. Tom DotsonHemoglobin (Bld) [Mass/Vol]14.4 g/hDDfkjoi91.0-18.0The [facility] CenterComment on above:Performed By: #### CBC #### [facility] [address] [place] [address] Dr. Tom Salgado #0.04 10e3/ulCritically high0.00-0.03The [facility] Comment on above:Performed By: #### CBC #### [facility] [address] [place] [address] Dr. Tom Salgado %0.5 %Normal0.0-0.5The [facility] CenterComment on above: Performed By: #### CBC #### [facility] [address] [place] [address] Dr. Tom MenjivarH #1.3 103/ulNormal1.2-3.8The [facility] CenterComment on above:Performed By: #### CBC #### [facility] [address] [place] [address] Dr. Tom Lugomphocytes/100 WBC (Bld)15.1 %Critically low20.5-60.0The [facility] CenterComment on above:Performed By: #### CBC #### [facility] [address] [place] [address] Dr. Tom McgillUAL DIFF REQNONormalThe [facility] CenterComment on above: Performed By: #### CBC #### [facility] [address] [place] [address] Dr. Tom Anderson (RBC) [Entitic mass]29.5 pqIadkiq94.9-34.0The [facility] CenterComment on above:Performed By: #### CBC #### [facility] [address] [place] [address] Dr. Tom Anderson (RBC) [Mass/Vol]30.9 g/lCKegszt03.9-35.2The [facility] CenterComment on above:Performed By: #### CBC #### [facility] [address] [place] [address] Dr. Tom Anderson (RBC) [Entitic vol]95.5 fLCritically high80.0-94.0The [facility] CenterComment on above:Performed By: #### CBC #### [facility] [address] [place] [address] Dr. Tom Baires #0.8 103/ulNormal0.3-0.8The [facility] CenterComment on above:Performed By: #### CBC #### [facility] [address] [place] [address] Dr. Tom Phanocytes/100 WBC (Bld)9.5 %Normal1.7-12.0The [facility] Comment on above:Performed By: #### CBC #### [facility] [address] [place] [address] Dr. Tom Kevin #3.9 103/ulNormal1.4-6.5The [facility] CenterComment on above:Performed By: #### CBC #### [facility] [address] [address] [address] Tom Riverautrophils/100 WBC (Bld)44.8 %Gkhptf99.0-75.0The [facility] on above:Performed By: #### CBC #### [facility] [address] [place] [address] Dr. Tom Irvinglet mean volume (Bld) [Entitic vol]10.2 fLNormal9.5-13.5The [facility] on above:Performed By: #### CBC #### [facility] [address] [place] [address] Dr. Tom DotsonPLT328 103/avZtnszq190-387Dze [facility] on above: Performed By: #### CBC #### [facility] [address] [place] [address] Dr. Tom DotsonRBC4.88 106/ulNormal4.70-6.10The [facility] on above:Performed By: #### CBC #### [facility] [address] [place] [address] Dr. Tom DotsonWBC8.7 103/ulNormal4.0-11.0The [facility] on above: Performed By: #### CBC #### [facility] [address] [place] [address] Dr. Tom RiverENTIAL MANUALon 36-81-1987WMPIKEBY LYMPH #0.09 103/ulNormal The [facility] on above:Performed By: #### DIFF #### [facility] [address] [place] [address] Dr. Tom DotsonATYPICAL LYMPH %1 %NormalThe [facility] on above: Performed By: #### DIFF #### [facility] [address] [place] [address] Dr. Tom High #0.0 103/ulNormal0.0-0.3The [facility] on above:Performed By: #### DIFF #### [facility] [address] [address] [address] Tom High %0 %Normal0-5The [facility] CenterComment on above:Performed By: #### DIFF #### [facility] [address] [place] [address] Dr. Tom Pimentel #0.00 103/ulNormal0.00-0.10The [facility] HospitalComment on above:Performed By: #### DIFF #### [facility] [address] [place] [address] Dr. Tom Pimentel %0.0 %Critically low0.2-2.0The [facility] CenterComment on above:Performed By: #### DIFF #### [facility] [address] [place] [address] Dr. Tom Huang #NormalThe [facility] CenterComment on above:Performed By: #### DIFF #### [facility] [address] [place] [address] Dr. Tom Huang %NormalThe [facility] CenterComment on above:Performed By: #### DIFF #### [facility] [address] [place] [address] Dr. Tom DotsonCORRECTED WBCNormal4.0-11.0The [facility]ment on above: Performed By: #### DIFF #### [facility] [address] [place] [address] Dr. Tom Delgado #1.22 103/ulCritically high0.00-0.70The [facility] Comment on above:Performed By: #### DIFF #### [facility] [address] [place] [address] Dr. Tom Delgado%14.0 %Critically high0.9-7.0The [facility] CenterComment on above:Performed By: #### DIFF #### [facility] [address] [place] [address] Dr. Tom Davidson #1.91 103/ulNormal1.20-3.80The [facility] CenterComment on above:Performed By: #### DIFF #### [facility] [address] [place] [address] Dr. Tom Davidson%22.0 %Namtgz19.5-60.0The [facility] CenterComment on above:Performed By: #### DIFF #### [facility] [address] [place] [address] Dr. Tom FullerOCYTE #NormalThe [facility] HospitalComment on above: Performed By: #### DIFF #### [facility] [address] [place] [address] Dr. Tom FullerOCYTE %NormalThe [facility] Medical CenterComment on above: Performed By: #### DIFF #### [facility] [address] [place] [address] Dr. Tom High#0.52 103/ulNormal0.30-0.80The [facility] CenterComment on above:Performed By: #### DIFF #### [facility] [address] [place] [address] Dr. Tom High%6.0 %Normal1.7-12.0The [facility] CenterComment on above: Performed By: #### DIFF #### [facility] [address] [place] [address] Dr. Tom Hdez #NormalThe [facility] CenterComhutzel women's hospital on above:Performed By: #### DIFF #### [facility] [address] [place] [address] Dr. Tom Hdez %NormalThe [facility] CenterComment on above:Performed By: #### DIFF #### [facility] [address] [place] [address] Dr. Tom Dos SantosNormalThe [facility] CenterComment on above:Performed By: #### DIFF #### [facility] [address] [place] [address] Dr. Tom Mckay #4.96 103/ulNormal1.40-6.50The [facility] CenterComment on above:Performed By: #### DIFF #### [facility] [address] [place] [address] Dr. Tom Mckay %57.0 %Ryupzv88.0-75.0The [facility] CenterComment on above: Performed By: #### DIFF #### [facility] [address] [address] [address] Tom DotsonWBC8.7 103/ulNormal4.0-11.0The [facility] CenterComment on above: Performed By: #### DIFF #### [facility] [address] [place] [address] Dr. Tom DotsonLIPID PROFILEon [id number]-HDL RATIO NORMSEE [facility] Regional HospitalComment on above:Result Comment: 3.3 - 4.4 LOW RISK 4.4 - 7.1 AVERAGE RISK 7.1 - 11.0 MODERATE RISK >11.0 HIGH RISKPerformed By: #### INFLUAB #### [facility] [address] [place] [address] Dr. Tom Changesterol [Mass/Vol]135 mg/dLNormal<=200The [facility] Comment on above:Performed By: #### INFLUAB #### [facility] [address] [place] [address] Dr. Tom Changesterol in HDL [Mass/Vol]51 mg/hFDzcsja69-01BvnThe [facility] CenterComhutzel women's hospital on above:Performed By: #### INFLUAB #### [facility] [address] [place] [address] Dr. Tom Changesterol in LDL [Mass/Vol]74.4 mg/dLTriHealthComhutzel women's hospital on above:Performed By: #### INFLUAB #### [facility] [address] [place] [address] Dr. Tom Gomez.total/Cholesterol in HDL [Mass ratio]2.6 {ratio} NormalThe [facility] Health CenterComment on above:Performed By: #### INFLUAB #### [facility] [address] [place] [address] Dr. Tom De Luna NORMAL> or = 60 mg/dl - LOW CARDIOVASCULAR RISK <40 mg/dl - HIGH CARDIOVASCULAR RISKTriHealthComment on above:Performed By: #### INFLUAB #### [facility] [address] [place] [address] Dr. Tom DotsonLDL CALC NORMALSEE BELOWTriHealthComment on above:Result Comment: <100 mg/dl OPTIMAL 100 - 129 mg/dl NEAR OR ABOVE OPTIMAL 130 - 159 mg/dl BORDERLINE HIGH 160 - 189 mg/dl HIGH >190 mg/dl VERY HIGH Performed By: #### INFLUAB #### [facility] [address] [place] [address] Dr. Tom DotsonTriglyceride [Mass/Vol]48 mg/dLNormal<=150The [facility] Comment on above:Performed By: #### INFLUAB #### [facility] [address] [place] [address] Dr. Tom DotsonVLDL CALC9.6 mg/dLNoHenry County HospitalComment on above: Performed By: #### INFLUAB #### [facility] [address] [place] [address] Dr. Tom DotsonPROF 14(COMP METB)on 81-57-2382Yxbccbi [Mass/Vol]3.8 g/dLNormal 3.4-5.0The [facility] CenterComment on above:Performed By: #### INFLUAB #### [facility] [address] [place] [address] Dr. Tom DotsonAlbumin/Globulin [Mass ratio]1.1 {ratio}NormalThe [facility] Health CenterComment on above:Performed By: #### INFLUAB #### [facility] [address] [place] [address] Dr. Tom White [Catalytic activity/Vol]62 U/MTzpsel07-733Sfj [facility] CenterComhutzel [facility] on above:Performed By: #### INFLUAB #### [facility] [address] [place] [address] Dr. Tom Faulkner [Catalytic activity/Vol]25 U/LOryyem87-45Vpw [facility] CenterComment on above:Performed By: #### INFLUAB #### [facility] [address] [address] [address] Tom Mohanon gap [Moles/Vol]9.8 mmol/LNormalThe [facility] CenterComment on above:Performed By: #### INFLUAB #### [facility] [address] [address] [address] Tom DotsonAST [Catalytic activity/Vol]15 U/APumsia17-66Nrn [facility] CenterComment on above:Performed By: #### INFLUAB #### [facility] [address] [place] [address] Dr. Tom DotsonBilirubin [Mass/Vol]0.9 mg/dLNormal0.2-1.0The [facility] Comment on above:Performed By: #### INFLUAB #### [facility] [address] [place] [address] Dr. Tom DotsonCalcium [Mass/Vol]8.8 mg/dLNormal8.5-10.1The [facility] Comment on above:Performed By: #### INFLUAB #### [facility] [address] [place] [address] Dr. Tom DotsonChloride [Moles/Vol]102 mmol/NAtizmo53-664Yfd [facility] Comment on above:Performed By: #### INFLUAB #### [facility] [address] [place] [address] Dr. Tom DotsonCO2 [Moles/Vol]30.5 mmol/IUyhddy73.0-32.0The [facility] Comment on above:Performed By: #### INFLUAB #### [facility] [address] [place] [address] Dr. Tom DotsonCreatinine [Mass/Vol]0.95 mg/dLNormal0.70-1.30The [facility] CenterComment on above:Performed By: #### INFLUAB #### [facility] [address] [place] [address] Dr. Santos ChangEGFR-AF INDONESIAN>60Normal>=60The [facility] CenterComment on above:Performed By: #### INFLUAB #### [facility] [address] [address] [address] Tom MannGFR-NON AF INDONESIAN>60Normal>=60The [facility] CenterComment on above:Performed By: #### INFLUAB #### [facility] [address] [address] [address] Tom DotsonGlobulin (S) [Mass/Vol]3.4 g/dLNormAultman Orrville HospitalComment on above:Performed By: #### INFLUAB #### [facility] [address] [address] [address] Tom DotsonGlucose [Mass/Vol]85 mg/xJUaexst47-796Eiw [facility] Comment on above:Performed By: #### INFLUAB #### [facility] [address] [address] [address] Tom DotsonPotassium [Moles/Vol]4.3 mmol/LNormal3.5-5.1The [facility] Comment on above:Performed By: #### INFLUAB #### [facility] [address] [address] [address] Tom DotsonProtein [Mass/Vol]7.2 g/dLNormal6.4-8.2[facility] Comment on above:Performed By: #### INFLUAB #### [facility] [address] [address] [address] Tom DotsonSodium [Moles/Vol]138 mmol/EFqyshq019-736Vpn [facility] Comment on above:Performed By: #### INFLUAB #### [facility] [address] [address] [address] Tom DotsonUrea nitrogen [Mass/Vol]14.0 mg/dLNormal7.0-18.0The [facility] CenterComment on above:Performed By: #### INFLUAB #### [facility] [address] [address] [address] Tom DotsonUrea nitrogen/Creatinine [Mass ratio]14.7 mg/mgNormalThFairfield Medical CenterComment on above:Performed By: #### INFLUAB #### [facility] [address] [address] [address] Tom Arreaga 66-01-6694GVA3.010 uIU/mLNormal0.358-3.740The [facility] CenterComment on above:Performed By: #### INFLUAB #### [facility] [address] [address] [address] Tom DotsonHepatic Panelon 02-54-7919Pndcvsa [Mass/Vol]3.2 g/dLNormal3.2-5.[address] [facility] Boardman HospitalComment on above:Performed By: #### HEPATIC, LIPID, TSH3 wRFLX, [id number] #### [facility] [address] [place] [address] USAAlbumin/Globulin [Mass ratio]1.1 {ratio}[facility] Hospital CompanyComment on above:Performed By: #### HEPATIC, LIPID, TSH3 wRFLX, [id number] #### [facility] [address] [place] [address] USAALP [Catalytic activity/Vol]38 U/OXsxrwq12-00KajvbrfefMercy Health St. Elizabeth Boardman HospitalComment on above:Performed By: #### HEPATIC, LIPID, TSH3 wRFLX, [id number] #### [facility] [address] [place] [address] USAALT [Catalytic activity/Vol]14 U/MBesyws72-29MenqsmfonMercy Health St. Elizabeth Boardman HospitalComment on above:Performed By: #### HEPATIC, LIPID, TSH3 wRFLX, [id number] #### [facility] [address] [place], [place] [id number] USAAST [Catalytic activity/Vol]13 U/LGdvnlb98-20CdedqwcnrMercy Health St. Elizabeth Boardman HospitalComment on above:Performed By: #### HEPATIC, LIPID, TSH3 wRFLX, [id number] #### [facility] [address] [place] [address] USABilirubin [Mass/Vol]0.9 mg/dLNormal0.3-1.2FMiddletown HospitalComment on above:Performed By: #### HEPATIC, LIPID, TSH3 wRFLX, [id number] #### [facility] [address] [place] [address] USABilirubin,Indirect0.8 mg/dLNoSuburban Community Hospital & Brentwood HospitalComment on above:Performed By: #### HEPATIC, LIPID, TSH3 wRFLX, [id number] #### [facility] [address] [place] [address] USABilirubin.direct [Mass/Vol]0.1 mg/dLNormal0.0-0.4FMiddletown HospitalComment on above:Performed By: #### HEPATIC, LIPID, TSH3 wRFLX, [id number] #### [facility] [address] [place] [address] USAGlobulin (S) [Mass/Vol]2.9 g/dLNoSuburban Community Hospital & Brentwood HospitalComment on above:Performed By: #### HEPATIC, LIPID, TSH3 wRFLX, [id number] #### [facility] [address] [place] [address] USAProtein [Mass/Vol]6.1 g/dLNoal6.1-7.9[facility] Boardman HospitalComment on above:Performed By: #### HEPATIC, LIPID, TSH3 wRFLX, [id number] #### [facility] [address] [place] [address] USALipid Panelon 94-47-4325Ahxscthutas [Mass/Vol]158 mg/dL Smidwj849-772AwzctqtzkMercy Health St. Elizabeth Boardman HospitalComment on above:Result Comment: Chol less than 200 mg/dl low risk Chol 201-239 mg/dl borderline risk Chol 240 mg/dl and greater high riskPerformed By: #### HEPATIC, LIPID, TSH3 wRFLX, [id number] #### [facility] [address] [place] [address] USACholesterol in HDL [Mass/Vol]61 mg/bUSlwwhc54-80ReowxunraMercy Health St. Elizabeth Boardman HospitalComment on above:Result Comment: HDL CHOL ATP-III CLASSIFICATION Cardiovascular Risk HDL > or equal to 60 mg/dL LOW HDL < 40 mg/dL HIGHPerformed By: #### HEPATIC, LIPID, TSH3 wRFLX, [id number] #### [facility] [address] [place] [address] USACholesterol.total/Cholesterol in HDL [Mass ratio]2.6 {ratio}Normal<5.0[facility] Elizabeth Boardman HospitalComment on above:Performed By: #### HEPATIC, LIPID, TSH3 wRFLX, [id number] #### [facility] [address] [place] [address] USALDL Cholesterol,Mngtvnphfo32 mg/dLNormal0-100[facility] HospitalComment on above:Result Comment: LDL ATP III CLASSIFICATION LDL less than 100 mg/dL Optimal LDL 100-129 mg/dL Near or above optimal LDL 130-159 mg/dL Borderline high LDL 160-189 mg/dL High LDL greater than 189 mg/dL Very highPerformed By: #### HEPATIC, LIPID, TSH3 wRFLX, [id number] #### [facility] [address] [id number] USATriglyceride w/Usstge10 mg/cQQoqfvz34-047DnqunvdneMercy Health St. Elizabeth Boardman HospitalComment on above:Result Comment: TRIG ATP III CLASSIFICATION TRIG less than 150 mg/dL Normal TRIG 150-199 mg/dL Borderline high TRIG 200-500 mg/dL High TRIG greater than 500 mg/dL Very high Standard traceable to the Center for Disease Conrtrol and Prevention (CDC) test method.Performed By: #### HEPATIC, LIPID, TSH3 wRFLX, [id number] #### [facility] [address] [id number] USAVLDL GAYPTPEJGGS70 mg/dLNormalMercy Health St. Elizabeth Boardman HospitalComment on above:Performed By: #### HEPATIC, LIPID, TSH3 wRFLX, [id number] #### [facility] [address] [place] [address] USAThyroid Stim Hormone w/Rflxon 82-71-0454Lwkzxlq Stim Hormone w/Rflx1.92 u[iU]/mLNormal0.45-5.33[facility] Comment on above:Performed By: #### HEPATIC, LIPID, TSH3 wRFLX, [id number] #### [facility] [address] [id number] USAVitamin D 25 Hydroxy Totalon 91-34-8349Wtvlvyp D 25 Hydroxy Total11.9 ng/fVPyo72-523FxedhrjrrMercy Health St. Elizabeth Boardman HospitalComment on above:Result Comment: VITAMIN D STATUS 25(OH)VITAMIN D RANGE (ng/mL) Deficient <20 Insufficient 20 to <30 Sufficient 30 to 100 Reference: Darrion MF,Zane NC, Hanna AVELAR, et al. Evaluation,treatment, and prevention of vitamin D deficiency; an Endocrine Society clinical practice guideline. JCEM. 2010; 96(7):1911-30. PERFORMED BY: [facility] [address] [id number] PATHOLOGIST [employer] ACCESS DEVELOPER MIGUELINA FLOOD M.D.Performed By: #### HEPATIC, LIPID, TSH3 wRFLX, [id number] #### [address] [address] [facility] Vital Signs Date TimeVital SignValuePerforming BtdabiwosAyctqeca30-82-0595 15:38-0400Body mass index (BMI) [Ratio]27.86 kg/m2Azul Leerani MEDIA SERVICES DIRECTOR Work Phone: [facility] CenterVwwbnhenrh78-75-2091 15:38-0400Body temperature 97.81 [degF]Azul Leerani MEDIA SERVICES DIRECTOR Work Phone: [facility] CenterYerbtcyqsi33-74-3808 15:38-0400Body ovvlan99.8 kg Azul Leidymaxrani MEDIA SERVICES DIRECTOR Work Phone: [facility] CenterZahrqzldct24-80-9394 15:38-0400Diastolic blood ypakacuo84 mm[Hg]Azul Leerani MEDIA SERVICES DIRECTOR Work Phone: [address] [address]Djatcclykc22-55-6881 15:38-0400Heart rate84 /min Azul Leidymaxrani MEDIA SERVICES DIRECTOR Work Phone: [address] [address]Tzvtdpnmkl89-21-6602 15:38-0400Respiratory rate24 /minAzul Damien MEDIA SERVICES DIRECTOR Work Phone: [facility] CenterFpcphyjuba66-71-9801 15:38-1651HhK0% (BldA) [Mass fraction]94 %Azul Quezada MEDIA SERVICES DIRECTOR Work Phone: [facility] CenterNbqlolqxqb68-58-4471 15:38-0400Systolic blood zbjnehbi515 mm[Hg]Azul Bragaz MEDIA SERVICES DIRECTOR Work Phone: [facility] CenterOjxcvpgugn35-86-6685 13:54-0400Body mass index (BMI) [Ratio]27.42 kg/m2Ivorysa Maria Luzz MEDIA SERVICES DIRECTOR Work Phone: [facility] CenterRoqbclibiz06-63-3914 13:54-0400Body umafyzymtnm32 [degF]Azul Bragaz MEDIA SERVICES DIRECTOR Work Phone: [facility] CenterWepccvazmr65-81-0014 13:54-0400Body auxmaf44.26 kgAzul Bragaz MEDIA SERVICES DIRECTOR Work Phone: [facility] CenterHroeippjvw06-87-3078 13:54-0400Diastolic blood owpanosf48 mm[Hg]Azul Bragaz MEDIA SERVICES DIRECTOR Work Phone: [facility] CenterEcocdcnoko72-48-2316 13:54-0400Heart rate88 /min Azul Maria Luzz MEDIA SERVICES DIRECTOR Work Phone: [facility] CenterFyyujffgwr82-19-6045 13:54-0400Respiratory rate24 /minLisa Quezada MEDIA SERVICES DIRECTOR Work Phone: [facility] CenterOhayvoanzf15-16-1721 13:54-3287YwJ0% (BldA) [Mass fraction]92 %Azul Bragaz MEDIA SERVICES DIRECTOR Work Phone: [facility] CenterKoslffelry20-56-9970 13:54-0400Systolic blood owyfeefy247 mm[Hg]Azul Bragaz MEDIA SERVICES DIRECTOR Work Phone: [facility] CenterXrajdhtbhl05-33-2522 14:25-0500Body mass index (BMI) [Ratio]25.57 kg/m2Azul Leeholz MEDIA SERVICES DIRECTOR Work Phone: [facility] CenterGnppilcnmm00-65-6669 14:25-0500Body temperature 99.39 [degF]Azul Maria Luzz MEDIA SERVICES DIRECTOR Work Phone: [phone]02-25-2025 14:25-0500Body iaflcj00.91 kgLisa Leidyhholz MEDIA SERVICES DIRECTOR Work Phone: [phone]-[facility] CenterGuqsivmvci64-30-1701 14:25-0500Diastolic blood isxgzyxl47 mm[Hg]Azul Aichholz MEDIA SERVICES DIRECTOR Work Phone: [facility] CenterErhyznqnws55-54-3420 14:25-0500Heart rate90 /min Azul Aichholz MEDIA SERVICES DIRECTOR Work Phone: [phone] [place], [place] [address]Atvvpinivz46-29-2180 14:25-0500Respiratory rate26 /minLisa Aichholz MEDIA SERVICES DIRECTOR Work Phone: [phone] [place], [place] [address]Pymbaglzjo14-31-4193 14:25-9881GyS8% (BldA) [Mass fraction]92 %Azul Aichholz MEDIA SERVICES DIRECTOR Work Phone: [phone] [place], [place] [address]Vlebsbgfxd54-36-1528 14:25-0500Systolic blood mm[Hg]Azul Aichholz MEDIA SERVICES DIRECTOR Work Phone: [phone] [place], [place] [address]Pdficxcmtd95-79-8458 13:20-0500Body gpnsiy676.4 cmLisa Aichholz MEDIA SERVICES DIRECTOR Work Phone: [facility] CenterGhsvmatcjm16-96-3211 13:20-0500Body mass index (BMI) [Ratio]25.17 kg/m2Lisa Aichholz MEDIA SERVICES DIRECTOR Work Phone: [facility] CenterUooelwkwsz17-97-9715 13:20-0500Body temperature 98.29 [degF]Azul Aichholz MEDIA SERVICES DIRECTOR Work Phone: [phone] [place], [place] [address]Djbapdrvim24-07-5690 13:20-0500Body ludtxx15.55 kgLisa Aichholz MEDIA SERVICES DIRECTOR Work Phone: [phone] [place], [place] [address]Amygfkduqc00-11-5417 13:20-0500Diastolic blood cpwbqkuj69 mm[Hg]Azul Aichholz MEDIA SERVICES DIRECTOR Work Phone: [address] [address]Lznibnzvtu36-17-8250 13:20-0500Heart rate77 /min Azul Aichholz MEDIA SERVICES DIRECTOR Work Phone: [facility] CenterFraqtklfpd23-74-4329 13:20-0500Respiratory rate24 /minAzul Leerani MEDIA SERVICES DIRECTOR Work Phone: [facility] CenterOlmxlfhzqm76-56-4688 13:20-2957MkE1% (BldA) [Mass fraction]97 %Azul Leerani MEDIA SERVICES DIRECTOR Work Phone: [facility] CenterLnlunnnxid20-78-2647 13:20-0500Systolic blood eumhxfrn432 mm[Hg]Azul Bragalisette MEDIA SERVICES DIRECTOR Work Phone: [facility] CenterFmuvkazioh00-78-0557 13:20-0400Body .4 cmIbeth Torres DO Work Phone: [phone] CenterBlsnibmadq17-22-6952 13:20-0400Body mass index (BMI) [Ratio]23.67 kg/m2Ibeth Torres DO Work Phone: [phone] CenterLowymuluhe61-69-9130 13:20-0400Body qzolcb71.38 kgIbeth Torres DO Work Phone: [phone] CenterOakkasbycm17-04-2074 13:20-0400Diastolic blood xnetfsap82 mm[Hg]Ibeth Torres DO Work Phone: [phone]301[facility] CenterLkmzdrvwoi52-63-6457 13:20-0400Heart rate70 /min Ibeth Torres DO Work Phone: [phone])[facility] CenterQykorsnxml78-10-1735 13:20-0400Respiratory rate12 /minIbeth Torres DO Work Phone: [phone])[facility] CenterN[facility] CenterHmzzlujmbx55-52-0515 13:20-3101EwZ7% (BldA) [Mass fraction]98 %Ibeth Torres DO Work Phone: [phone]301[facility] CenterZhydmsultd40-38-9118 13:20-0400Systolic blood wyuxefwr642 mm[Hg]Ibeth Torres DO Work Phone: [phone] CenterEsbgmieqhw83-89-8256 14:17-0400Body .4 Elder Aichholz MEDIA SERVICES DIRECTOR Work Phone: [facility] CenterEtattpbimp31-17-3530 14:17-0400Body mass index (BMI) [Ratio]23.62 kg/m2Lisa Rosaholz MEDIA SERVICES DIRECTOR Work Phone: [facility] CenterUpdygppsms83-67-3492 14:17-0400Body temperature 98.01 [degF]Azul Maria Luzz MEDIA SERVICES DIRECTOR Work Phone: [facility] CenterHlisraefxc05-62-8056 14:17-0400Body pxebwn29.19 kgLisa Rosaholz MEDIA SERVICES DIRECTOR Work Phone: [address] [address]Lyhvzmotla96-97-2300 14:17-0400Diastolic blood mm[Hg]Azul Rosaholz MEDIA SERVICES DIRECTOR Work Phone: [address] [address]Vwhoesfngc80-28-8938 14:17-0400Heart rate79 /min Azul Maria Luzz MEDIA SERVICES DIRECTOR Work Phone: [address] [address]Dvecsjcbph19-62-0675 14:17-0400Respiratory rate22 /minLisa Maria Luzz MEDIA SERVICES DIRECTOR Work Phone: [address] [address]Tzcbigkxqe58-79-6173 14:17-6917DyI8% (BldA) [Mass fraction]94 %Azlu Maria Luzz MEDIA SERVICES DIRECTOR Work Phone: [address] [address]Seufnmyowt06-43-7249 14:17-0400Systolic blood piodchem48 mm[Hg]Azul Rosanormaz MEDIA SERVICES DIRECTOR Work Phone: [facility] CenterFrynyrwzkg63-59-0277 10:00-0500Body wfewzb653.4 cmLisa Rosaholz MEDIA SERVICES DIRECTOR Work Phone: [facility] CenterWxplrgxzyz37-42-0198 10:00-0500Body mass index (BMI) [Ratio]26.84 kg/m2Lisa Rosaholz MEDIA SERVICES DIRECTOR Work Phone: [facility] CenterMysaiffves32-98-1753 10:00-0500Body temperature 97.11 [degF]Azul Rosaholz MEDIA SERVICES DIRECTOR Work Phone: [facility] CenterAsjvraojux70-40-1446 10:00-0500Body asiavg81.26 kgAzul Quezada MEDIA SERVICES DIRECTOR Work Phone: noms Nebyfhthly94-05-7686 10:00-0500Diastolic blood migpwheb72 mm[Hg]Azul Quezada MEDIA SERVICES DIRECTOR Work Phone: noms Xemjgnbrkf62-00-2200 10:00-0500Heart rate83 /min Azul Quezada MEDIA SERVICES DIRECTOR Work Phone: noms Ffprjqagno38-95-1704 10:00-0500Respiratory rate16 /minAzul Quezada MEDIA SERVICES DIRECTOR Work Phone: [facility] Oeirfyuser50-43-0355 10:00-3713BnV2% (BldA) [Mass fraction]94 %Azul Quezada MEDIA SERVICES DIRECTOR Work Phone: noms Iizmlmjtzr90-60-7356 10:00-0500Systolic blood hlfwcyqx501 mm[Hg]Azul Quezada MEDIA SERVICES DIRECTOR Work Phone: [facility] Encounters Encounter DateEncounter TypeCare ProviderFacilityStart: 07-13-2025 End: 90-05-3213bgriifqgjxEBEZCVCZJ A JUMAAProMedGerman Hospital HospitalStart: 06-96-1421dbqdnvnpwoRKFT [place]awn [facility] [place] PPGStart: 07-07-2025 End: 80-72-3329jhvwuronwvJURZAUS PROVIDERFacility:METROHealthStart: 07-07-2025 End: 44-23-6778Grxwfbnvwd and management of inpatientMARIAM ARMIN DIABProMedica Shannon HospitalStart: 05-17-2025 End: 50-54-2123Nwwnipblvzqm care manage srvc 7 day dischargeAzul Bragalisette MEDIA SERVICES DIRECTOR Work Phone: noms CWM FMComment on above:Centrilobular emphysema (HCC) (Primary Dx); Tourette's ; Bilateral carotid artery stenosis; Rising PSA level; Mixed hyperlipidemia ; Depression with anxiety; Former smoker; Elevated glucose; Pain of right hipStart: 05-17-2025 End: 59-48-5947gufkxebyyqBOFR AICHHOLZNot AvailableStart: 05-17-2025 End: 65-10-6935Wxojmy flowsheetLisa Aichholz MEDIA SERVICES DIRECTOR Work Phone: [facility] CWM FMStart: 05-17-2025 End: 76-29-4708Urgwdc flowsheetLisa Aichholz MEDIA SERVICES DIRECTOR Work Phone: [facility] CWM FMStart: 02-15-2025 End: 01-16-9865Lacdhr flowsheetLisa Aichholz MEDIA SERVICES DIRECTOR Work Phone: [facility] CWM FMStart: 02-15-2025 End: 94-68-0489Cgnxai flowsheetLisa Aichholz MEDIA SERVICES DIRECTOR Work Phone: [facility] CWM FMStart: 02-15-2025 End: 70-50-7161Tptnce outpatient visit 25 minutesLisa Aichholz MEDIA SERVICES DIRECTOR Work Phone: [facility] CWM FMComment on above:Depression with anxiety (Primary Dx); Cerebrovascular accident (CVA), unspecified mechanism (CMS/HCC); Overweight (BMI 25.0-29.9); Centrilobular emphysema (CMS/HCC); Insomnia, unspecifiedStart: 02-15-2025 End: 06-26-1906iqstkhajppAFWR AICHHOLZNot AvailableStart: 12-27-2024 End: 39-96-8669IievulWtyw Aichholz MEDIA SERVICES DIRECTOR Work Phone: [facility] CWM FMComment on above:Mixed hyperlipidemia (CMS/HCC)Start: 11-16-2024 End: 58-84-1977Waxfbn flowsheetLisa Aichholz MEDIA SERVICES DIRECTOR Work Phone: [facility] CWM FMStart: 11-16-2024 End: 77-99-0813Hlamst flowsheetLisa Aichholz MEDIA SERVICES DIRECTOR Work Phone: [facility] CWM FMStart: 11-16-2024 End: 41-41-7685Rdnwnchds Result EncounterLisa Aichholz MEDIA SERVICES DIRECTOR Work Phone: noms External Department UnsolicitedStart: 11-16-2024 End: 36-88-6978Bpelbdj encounter procedureLisa Leerani MEDIA SERVICES DIRECTOR Work Phone: noms CWM FMComment on above:Encounter for subsequent annual wellness visit (AWV) in Medicare patient (Primary Dx); Centrilobular emphysema (CMS/HCC); Cerebrovascular accident (CVA), unspecified mechanism (CMS/HCC); Bilateral carotid artery stenosis; Overweight (BMI 25.0-29.9); Depression with anxiety; COPD with acute exacerbation ([facility]/HCC)Start: 11-16-2024 End: 73-71-1452reqiqbfjpdVKYV AICHHOLZNot AvailableStart: 10-22-2024 End: 99-40-3985Nwoavqemb Result EncounterGeneric External Data ProviderNOMS External Department UnsolicitedStart: 10-22-2024 End: 43-39-9789Yyewsrbeq Result EncounterGeneric External Data ProviderNOMS External Department UnsolicitedStart: 09-08-2024 End: 05-13-5503Sbliphova Result EncounterGeneric External Data ProviderNOMS External Department UnsolicitedStart: 09-08-2024 End: 60-40-9430Prbztdzex Result EncounterGeneric External Data ProviderNOMS External Department UnsolicitedStart: 09-06-2024 End: 26-19-4624Djacqkfyh Result EncounterLisa Damien MEDIA SERVICES DIRECTOR Work Phone: noms External Department UnsolicitedStart: 09-06-2024 End: 64-46-9291Rxwefatgk Result EncounterLisa Damien MEDIA SERVICES DIRECTOR Work Phone: noms External Department UnsolicitedStart: 08-16-2024 End: 21-19-0726Wyvqdi flowsheetLisa Forbesmaxrani MEDIA SERVICES DIRECTOR Work Phone: noms CWM FMStart: 08-16-2024 End: 71-61-5034Iozips flowsheetLisa Leeholz MEDIA SERVICES DIRECTOR Work Phone: noms CWM FMStart: 08-16-2024 End: 69-76-0955Kwtvho outpatient visit 25 minutesLisa Leerani MEDIA SERVICES DIRECTOR Work Phone: noms CWM FMComment on above:Depression with anxiety (Primary Dx); Primary insomnia; Cerebrovascular accident (CVA), unspecified mechanism (CMS/HCC); Centrilobular emphysema (CMS/HCC); Bilateral carotid artery stenosis; Sessile colonic polyp; Smoker; Needs flu shot; Former smoker; Insomnia, unspecifiedStart: 08-16-2024 End: 26-79-6393akboifzsezNQWU AICHHOLZNot AvailableStart: 07-06-2024 End: 43-80-0803Nnxgswhuw Result EncounterGeneric External Data ProviderNOMS External Department UnsolicitedStart: 07-06-2024 End: 82-39-8108Lfsshvcge Result EncounterGeneric External Data ProviderNOMS External Department UnsolicitedStart: 06-02-2024 End: 41-86-3854IaweflUbpm Aichnormaz MEDIA SERVICES DIRECTOR Work Phone: noms CWM FMComment on above:Depression with anxiety; Insomnia, unspecified; Mixed hyperlipidemia (CMS/HCC)Start: 06-01-2024 End: 03-54-3394Pcxsjn OnlyLisa Leenormaz MEDIA SERVICES DIRECTOR Work Phone: noms CWM FMComment on above:Rising PSA level (Primary Dx)Start: 05-31-2024 End: 34-38-5286Zqvpagszf Result EncounterLisa Leidyhholz MEDIA SERVICES DIRECTOR Work Phone: noms External Department UnsolicitedStart: 05-31-2024 End: 06-84-9560Zndjjiwjt Result EncounterLisa Rosaholz MEDIA SERVICES DIRECTOR Work Phone: noms External Department UnsolicitedStart: 05-31-2024 End: 56-25-0514Wosmutq encounter Swetha Torres DO Work Phone: noms BWM GENSComment on above:Screening for malignant neoplasm of colon (Primary Dx)Start: 05-31-2024 End: 14-89-8857agarvzslrpOOGN DUCKETTNot AvailableStart: 05-19-2024 End: 56-01-8885Aiotlh flowsheetAzul Quezada MEDIA SERVICES DIRECTOR Work Phone: noms CWM FMStart: 05-19-2024 End: 14-91-0797Gwykyn flowsheetAzul Quezada MEDIA SERVICES DIRECTOR Work Phone: noms CWM FMStart: 05-19-2024 End: 82-33-7349Fxduvh outpatient visit 25 minutesAzul Quezada MEDIA SERVICES DIRECTOR Work Phone: noms CWM FMComment on above:Depression with anxiety (Primary Dx); Screening for prostate cancer; Smoker; Mixed hyperlipidemia (CMS/HCC); Sessile colonic polyp; Centrilobular emphysema (CMS/HCC); Bilateral carotid artery stenosis; Right hand painStart: 01-14-2024 End: 07-00-7111Ikvbgjsiq encounterEmily Moore RNProMedica Physicians Neurology Start: 79-78-6999Vvphlrx encounter procedureLisa Quezada MEDIA SERVICES DIRECTOR Work Phone: noms HealthcareStart: 10-30-2023 End: 23-60-0502Hbahct outpatient visit 15 minutesAzul Quezada MEDIA SERVICES DIRECTOR Work Phone: [facility] CWM FMComment on above:Influenza (Primary Dx); Marijuana abuse; Smoker; BMI 26.0-26.9,adult; Centrilobular emphysema (CMS/HCC)Start: 09-03-9323Rtgvnonnm Result Encounter Generic External Data ProviderNOMS External Department UnsolicitedStart: 48-95-3234Grhiejqid Result EncounterGeneric External Data ProviderNOMS External Department UnsolicitedStart: 09-25-2022 End: 67-22-3769hjyqalxhgsAVS 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Facility:M9Yiqgs: 04-16-2022 End: 24-58-5002vairkbgsvaHHPUIT SAMSAFacility:N5Hiqxy: 04-10-2022 End: 27-19-0696nwzykwjxqlRCBLRT SAMSAFacility:Q4Horjs: 03-06-2022 End: 54-67-6920xnrpywhlijJYM AZUL DAMIENFacility:H1 Procedures DateProcedureProcedure DetailPerforming ClinicianStart: 09-15-1863MO CHEST 2V Azul Quezada MEDIA SERVICES DIRECTOR Work Phone: Start: 92-30-3305QPQ HEMOGLOBINGeneric External Data ProviderStart: 49-45-0617TC LUNG SCREENING LOW DOSEGeneric External Data ProviderStart: 56-82-1536GOR TOTAL+% FREELisa Damien MEDIA SERVICES DIRECTOR Work Phone: Start: 71-00-3925VJR CBC WITH AUTO DIFFGeneric External Data ProviderStart: 84-02-7266AnqiszzjtxrAibqquf ProviderStart: 87-27-4509SKU UA (CLEAN/CATCH) MICROSCOPIC IF INDICATELisa Damien MEDIA SERVICES DIRECTOR Work Phone: Start: 37-96-0316AFEYZ CULTURE 2Generic External Data ProviderStart: 54-97-1132GXFYB CULTURE 1Generic External Data ProviderStart: 87-66-2295HJB screeningNATHAN CHRISTOPHERComment on above:Performed By: #### PSASC #### [facility] [address] [place] [address] Dr. Tom DotsonStart: 34-55-3010Ocvnm depression screening assessmentEmvenkatesh Moore RN Plan of Treatment DateCare ActivityDetailAuthorStart: 31-76-8353Lmskmiqde for malignant neoplasm of colonNOMS HealthcareStart: 11-21-2025 End: 67-81-7797Argwghq encounter glngxscoj05/02/2026 4:30 PM EST Office Visit [facility] [address] [place] [address] Azul Quezada, ORACIO [address] [place] [phone] KAELYN FLOREZ FMStart: 02-25-2026Medicare Annual Wellness (AWV) Medicare Annual Wellness (AWV)NOMS HealthcareStart: 07-18-2025 End: 54-64-9536Higvbfk encounter silhwycxp58/27/2025 1:20 PM EDT Office Visit [facility] [address] [place] [address] Azul Quezdaa, MEDIA SERVICES DIRECTOR [address] [place] [address] [facility] FMStart: 47-37-7091Jibqkmwaw vaccinationInfluenza Vaccine (#1)NOMS HealthcareStart: 05-17-2025 End: 32-88-2425Yqglpfj encounter kiwbhjmnz64/26/2025 3:20 PM EDT Office Visit [facility] [address] [place] [address] Azul Quezada, MEDIA SERVICES DIRECTOR [address] [place] [address] Tourette's (Primary Dx); Centrilobular emphysema (HCC); Bilateral carotid artery stenosis; Rising PSA level; Mixed hyperlipidemia ; Depression with anxiety; Former smoker; Elevated glucoseNOSTILLWATER MEDICAL CENTER – [facility]ILL[facility] FMComment on above:Tourette's (Primary Dx); Centrilobular emphysema (HCC); Bilateral carotid artery stenosis; Rising PSA level; Mixed hyperlipidemia ; Depression with anxiety; Former smoker; Elevated glucoseStart: 05-17-2025 End: 28-43-8021Piflonaeygyzd metabolic 2000 panel - Serum or PlasmaComprehensive metabolic panel Lab Routine Mixed hyperlipidemia Elevated glucose Expected: 05/17/2025 (Approximate), Expires: 05/17/2026NOMS HealthcareComment on above: Expected: 05/17/2025 (Approximate), Expires: 05/17/2026Start: 05-17-2025 End: 54-50-9757Qhluubhnbk A1c/Hemoglobin.total in BloodHemoglobin A1c Lab Routine Elevated glucose Expected: 05/17/2025 (Approximate), Expires: 05/17/2026 NOMS HealthcareComment on above:Expected: 05/17/2025 (Approximate), Expires: 05/17/2026Start: 05-17-2025 End: 82-69-2738Aswcm 1996 panel - Serum or PlasmaLipid panel Lab Routine Mixed hyperlipidemia Expected: 05/17/2025 (Approximate), Expires: 05/17/2026[facility] HealthcareComment on above:Expected: 05/17/2025 (Approximate), Expires: 05/17/2026Start: 05-17-2025 End: 50-03-3951ITA, total and freePSA, total and free Lab Routine Rising PSA level Expected: 05/17/2025 (Approximate), Expires: 05/17/2026[facility] Work Phone: Comment on above:Expected: 05/17/2025 (Approximate), Expires: 05/17/2026Start: 05-17-2025 End: 87-96-7840Drxmjgvylhd [Units/volume] in Serum or PlasmaTSH Lab Routine Depression with anxiety Expected: 05/17/2025 (Approximate), Expires: 05/17/2026 NOMS HealthcareComment on above:Expected: 05/17/2025 (Approximate), Expires: 05/17/2026Start: 05-17-2025 End: 80-82-3634Qjbxqlozfu complete panel - UrineUrinalysis with reflex microscopic (clean catch) Lab Routine Former smoker Expected: 05/17/2025 (Vilma roximate), Expires: 05/17/2026[facility] HealthcareComment on above:Expected: 05/17/2025 (Approximate), Expires: 05/17/2026Start: 05-17-2025 End: 67-28-0456UC Hip - right 3 ViewsXR hip right 2 or 3 views Imaging Routine Pain of right hip Expected: 05/17/2025, Expires: 05/17/2026[facility] Healthcare Comment on above:Expected: 05/17/2025, Expires: 05/17/2026Start: 02-15-2025 End: 63-97-8793Mgdbgni encounter procedureNOMS CWM FMComment on above: Cerebrovascular accident (CVA), unspecified mechanism (CMS/HCC) (Primary Dx); Overweight (BMI 25.0-29.9); Depression with anxiety; Centrilobular emphysema (CMS/HCC)Start: 11-16-2024 End: 90-59-5251Vnqmwon encounter procedureNOMS CWM FMComment on above: Cerebrovascular accident (CVA), unspecified mechanism (CMS/HCC) (Primary Dx); Centrilobular emphysema (CMS/HCC); Bilateral carotid artery stenosis; Overweight (BMI 25.0-29.9); Depression with anxiety; Encounter for subsequent annual wellness visit (AWV) in Medicare patientStart: 11-16-2024 End: 75-74-1540LL Chest 2 ViewsXR chest 2 views Imaging Routine COPD with acute exacerbation (CMS/HCC) Expected: 11/16/2024 (Approximate), Expires: 11/16/2025 [facility] Healthcare Work Phone: Comment on above:Expected: 11/16/2024 (Approximate), Expires: 11/16/2025Start: 02-22-2025Medicare Annual Wellness (AWV)Medicare Annual Wellness (AWV)[facility] HealthcareStart: 08-16-2024 End: 27-83-1345Nhxtncr encounter procedureNOMS CWM FMComment on above:Primary insomnia (Primary Dx); Cerebrovascular accident (CVA), unspecified mechanism (CMS/HCC); Centrilobular emphysema (CMS/HCC); Bilateral carotid artery stenosis; Sessile colonic polyp; Smoker; Depression with anxietyStart: 72-68-6791Iyyzozjxc for malignant neoplasm of colonNODC HealthcareStart: 06-01-2024 End: 81-53-1782AHF, total and freePSA, total and free Lab Routine Rising PSA level Expected: 06/01/2024 (Approximate), Expires: 06/01/2025[facility] Healthcare Work Phone: Comment on above:Expected: 06/01/2024 (Approximate), Expires: 06/01/2025Start: 72-08-2750Agdadvqgo vaccinationJORDAN VALLEY [facility]ENTER [facility] HealthcareStart: 05-19-2024 End: 96-47-8355TRS W Auto Differential panel - BloodCBC and differential Lab Routine Smoker Expected: 05/19/2024 (Approximate), Expires: 05/19/2025[facility] Work Phone: Comment on above:Expected: 05/19/2024 (Approximate), Expires: 05/19/2025Start: 05-19-2024 End: 52-44-3194Gsoullhwucmse metabolic 2000 panel - Serum or PlasmaComprehensive metabolic panel Lab Routine Depression with anxiety Mixed hyperlipidemia (CMS/HCC) Expected: 05/19/2024 (Approximate), Expires: 05/19/2025[facility] Comment on above:Expected: 05/19/2024 (Approximate), Expires: 05/19/2025Start: 05-19-2024 End: 39-33-6912Mxngr 1996 panel - Serum or PlasmaLipid panel Lab Routine Mixed hyperlipidemia (CMS/HCC) Expected: 05/19/2024 (Approximate), Expires:05/19/2025 NOMS HealthcareComment on above:Expected: 05/19/2024 (Approximate), Expires: 05/19/2025Start: 05-19-2024 End: 24-32-9778Qxxjgor encounter htjxaceba25/28/2024 2:00 PM EDT Office Visit [facility] [address] [place] [address] Azul Quezada, ORACIO [address] [facility] [place] [address] Screening for prostate cancer (Primary Dx); Smoker; Depression with anxiety; Mixed hyperlipidemia (CMS/HCC)[facility] FMComment on above:Screening for prostate cancer (Primary Dx); Smoker; Depression with anxiety; Mixed hyperlipidemia (CMS/HCC)Start: 05-19-2024 End: 94-05-8209Birssvif specific Ag [Mass/volume] in Serum or PlasmaPSA Lab Routine Screening for prostate cancer Expected: 05/19/2024 (Approximate), Expires: 05/19/2025[facility] HealthcareComment on above:Expected: 05/19/2024 (Approximate), Expires: 05/19/2025Start: 05-19-2024 End: 71-75-0599Snxwdjwfqw complete panel - UrineUrinalysis with reflex microscopic (clean catch) Lab Routine Smoker Expected: 05/19/2024 (Approximate), Expires: 05/19/2025NOMS HealthcareComment on above:Expected: 05/19/2024 (Approximate), Expires: 05/19/2025Start: 13-18-8408Gcujnawjw vaccination Influenza Vaccine (#1)NOMS HealthcareComment on above:Postponed from 2023 (Patient Refused)Start: 01-14-2024 End: 84-61-7322WA Carotid arteries - bilateralVas carotid duplex bilateral Vascular Ultrasound Routine Internal carotid artery stenosis, right Expected: 01/14/2024, Expires: 01/13/2025[facility] Work Phone: Comment on above:Expected: 01/14/2024, Expires: 01/13/2025Start: 11-13-2023 End: 94-70-3738Smgvxxm encounter iffafgjgb62/22/2024 9:40 AM EST Office Visit [facility] [address] [place] [address] Azul Quezada, MEDIA SERVICES DIRECTOR [address] [place] [address] [facility] FMStart: 10-30-2023 End: 60-38-6654Adktjso encounter txiyylzsc71/08/2024 10:00 AM EST Office Visit [facility] [address] [place] [address] Azul Quezada, MEDIA SERVICES DIRECTOR [address] [place] [address] [facility] FMStart: 85-16-6587Iznmgacsq vaccinationInfluenza Vaccine (#1)N[facility]S HealthcareStart: 30-05-2894Lolax BMI ScreeningAdult BMI ScreeningProBlanchard Valley Health Systemca Health SystemStart: 83-96-8786Lttddsl ScreeningTobacco ScreeningProBlanchard Valley Health Systemca Health SystemStart: 14-12-8233Soeobqatjt ScreeningDepression ScreeningProBlanchard Valley Health Systemca [facility] SystemStart: 10-95-1635Aycbywwoxtgvrk of varicella zoster vaccineZoster (Shingles) Vaccine (1 of 2)[facility] SystemStart: 95-41-5973TQaC,Tdap and Td Vaccines (1 - Tdap)DTaP,Tdap and Td Vaccines (1 - Tdap)[facility] SystemStart: 12-62-3933Vddogyddnsqa Vaccine: 65+ Years (1 of 2 - PCV)Pneumococcal Vaccine: 65+ Years (1 of 2 - PCV)[facility] HealthcareStart: 1960Medicare Annual Wellness (AWV)Medicare Annual Wellness (AWV)[facility] HealthcareStart: 02-78-7644Opyatnoah for malignant neoplasm of colonNODC HealthcareStart: 21-67-2419Mhkzolini for malignant neoplasm of lungLung Cancer Screening Shared Decision MakingJORDAN VALLEY MEDICAL [facility]ENTER [facility]AMPUS HealthcareBLOOD CULTURE 1BLOOD CULTURE 1 Lab Routine 10/21/2023 12:27 PM ESTJORDAN VALLEY MEDICAL CENTER WEST [facility] HealthcareBLOOD CULTURE 2BLOOD CULTURE 2 Lab Routine 10/21/2023 12:30 PM ESTNevada Regional Medical Center Immunizations Immunization DateImmunizationNotesCare UebfqfmjJrwusajt64-60-8996ZMRDJWC - Respiratory syncytial virus (RSV), vaccine, bivalent, protein subunit RSV prefusion F, diluent reconstituted, 0.5 mL, PFLisa Aichholz MEDIA SERVICES DIRECTOR Work Phone: [facility] CenterWcgfxneayw63-40-9164Pllvljfnb, injectable, Madin [place] Canine Kidney, preservative free, quadrivalentLisa Aichholz MEDIA SERVICES DIRECTOR Work Phone: [facility] CenterWlryvjjzxf19-56-1249zageyqufb virus vaccine, unspecified formulationLisa Aichholz MEDIA SERVICES DIRECTOR Work Phone: [facility] CenterSsehhmvtjt26-66-7413jjhndyqzs, live, intranasal, quadrivalentLisa Aichholz MEDIA SERVICES DIRECTOR Work Phone: [facility] CenterYlypxfpfan04-13-5241jjwtyhojb virus vaccine, unspecified formulationGeneric ProviderNevada Regional Medical CenterXqpqmkijhb93-13-0040hecwmewkd, high dose seasonal, preservative-freeLisa Aichholz MEDIA SERVICES DIRECTOR Work Phone: [facility] CenterYjcgvecssq54-85-1993acwsgqlzi, injectable, quadrivalent, preservative freeLisa Aichholz MEDIA SERVICES DIRECTOR Work Phone: [facility] Jwlithsvcu95-37-1525gsviyunrd virus vaccine, unspecified formulationEmJohn [facility] System Payers DatePayer CategoryPayerPolicy ID2019MedicaidMEDICAID [facility] MEDICAID [id number] 2019-Present [phone] [address] [place] [address] [id number] 1994Medicare [id number] [id number] 1960 [id number] 2.16.840.1.002288.3.57[id number] 2.16.840.1.875940.3.57[id number] 2.16.840.1.594911.3.57[id number] 2.16.840.1.396415.3.57[id number] 2.16.840.1.982895.3.57[id number] 2.16.840.1.804415.3.57[id number] 2.16.840.1.804254.3.57[id number] 2.16.840.1.318849.3.57[id number] 2.16.840.1.245911.3.57[id number] 2.16.840.1.121891.3.57[id number] 2.16.840.1.146480.3.57[id number] 2.16.840.1.364003.3.57[id number] 2.16.840.1.110059.3.57[id number] 2.16.840.1.761211.3.57[id number] 2.16.840.1.881576.3.579.2.1286 [id number] 1960Unknown [id number] Social History DateTypeDetailFacilityTobacco smoking status NHISTobacco smoking consumption unknownNOMS HealthcareStart: 30-98-1006Npt Assigned At BirthNot on fileNODC HealthcareStart: 10-30-2023 End: 37-68-6630Suhiwz identityNot on fileJORDAN VALLEY [facility] HealthcareStart: 02-59-8910Ftcbfcu smoking status NHISEx-smokerNOMS HealthcareStart: 03-22-1984 End: 37-09-3924Avebtje of tobacco useCurrent smokerNOMS HealthcareStart: 03-22-1984 End: 94-71-5543Mnwybpy of tobacco useCigarette SmokerNOMS HealthcareStart: 10-30-2023 End: 27-83-1199Gajzwmqore smoked current (pack per day) - Omljcjms1XKHW HealthcareStart: 02-08-2021 End: 42-14-0633Ectmxip use and exposureSmokeless tobacco non-userNOMS Healthcare Start: 10-30-2023 End: 45-50-7003Dvhfuon intakeCurrent drinker of alcohol (finding)[facility] Start: 64-84-3934Ybtwwng Commentcoffee more than 4 cups per dayNOMS Healthcare Within the last year, have you been afraid of your partner or ex-partner?NoNOMS HealthcareDo you belong to any clubs or organizations such as adventism groups, unions, fraternal or athletic groups, or school groups?YesNOMS HealthcareAre you now , , , , never or living with a partner?MarriedNOMS HealthcareHow often to you have a drink containing alcohol? NeverNOTexas County Memorial HospitalStart: 19-15-6381Iia many standard drinks containing alcohol do you have on a typical day?Patient does not drinkNOMS HealthcareDo you feel stress - tense, restless, nervous, or anxious, or unable to sleep at night because yourmind is troubled all the time - these days [OSQ]Only a littleNOMS Healthcare(I/We) worried whether (my/our) food would run out before (I/we) got money to buy more.Never trueNOTexas County Memorial HospitalStart: 05-60-6293Yhyfdjh smoking status NHISSmokes tobacco dailyW[facility] Medical Center SystemStart: 09-62-6301Hchtllxhx beverage intakeEx-drinker (finding)[facility] SystemAre you now , , , , never or living with a partner?Living with partnerWexner Medical Center SystemHow often to you have a drink containing alcohol? Monthly or lessProBrookwood Baptist Medical Center Health SystemDo you feel stress - tense, restless, nervous, or anxious, or unable to sleep at night because yourmind is troubled all the time - these days [OSQ]Not at allFormerly [facility], [facility] Orthopedic Hospitaltart: 40-56-3410Xneseez Commentquit 4 days ago as of 12/21/20[facility] Medical Equipment Procedure CodeEquipment CodeEquipment Original TextEquipment IdentifierDatesStnt [facility] 8/6mm 6fr 30mm 135cm - [id number]: 06-12-2020 Goals DatePatient GoalDesired Activity/StatePersonal health goalComment on above: Evaluation of progress towards goal: Return home with self care and family support. Functional Status QmdsWbsctcdlxaJuwqunOqimzoof09-85-0489Hskxsxo Health Questionnaire 2 item (PHQ- 2) [Reported][facility] Clinical Notes 10-30-2023 to 05-17-2025 Note Date & GezoTbrxGunfvsgt36-24-7771 History of Present illness Narrative* Azul Quezada NP - 05/17/2025 5:24 PM EDTAssociated Problem(s): Pain of right hip Check xray and go from there * RACHEL ACEVEDO - 05/17/2025 3:20 PM EDT Request for [facility] pulmonology 02 at 2L aat Pt uses [...] tightness Pt goes thru [facility] [place] * Azul Quezada NP - 05/17/2025 3:20 PM EDT Images from the original note were not included. Sam Carrasco is a 64 y.o. male presents with chief complaint of Hospital Follow-up HPI: TCM fu: COPD exacerbation Admitted to [facility], sent home atb, steroids, oxygen Is [...] COVID-19 07/2019 CVA (cerebral vascular accident) ([facility]) Degenerative cervical disc Depression with anxiety Insomnia [...] Polyp Vocal area and Vocal Cord cyst MS EXCISION THYROGLOSSAL DUCT CYST/SINUS Procedure:DL, e/o thyroglossal [...] for this Centrilobular emphysema (HCC) Was established correction with dr white, 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 bowls paint trimmer and needs a referral to [facility] Chest [...] EDTAssociated Problem(s): Centrilobular emphysema (HCC) 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, 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 bowls paint trimmer and needs a referral to [facility] Chest CT 09/14 new lung masses Current meds: albuterol, Ensifentrine, symbicort, spiriva respimat * Azul Quezada NP - 05/17/2025 6:52 AM EDTAssociated Problem(s): Terry's No current med use for this documented in this encounterNevada Regional Medical CenterSjdsshdmah09-54-1069 Instructions* Patient Instructions* Azul Quezada NP - 05/17/2025 3:20 PM EDT Refer to dr jansen lung doctor Thuy Rai xray hip documented in this encounterNevada Regional Medical CenterAngwyvkjjx15-35-8528 History of Present illness Narrative* RACHEL ACEVEDO [...] as he feels this could result in correction damage to his lungs SUBJECTIVE: MEDICATIONS: Current [...] (CMS/HCC) COVID-19 07/2019 CVA (cerebral vascular accident) ([facility]) Degenerative cervical disc Depression with anxiety Insomnia Marijuana abuse 10/30/2023 Multiple pulmonary nodules Neck mass 2014 Osteoarthritis Papule of skin 11/13/2023 Pigmented skin lesion of uncertain nature Rheumatic fever Stroke (CMS/HCC) 07/2020 Testicle lump Tourette's ([facility]/HCC) Vertebral artery occlusion Vocal cord polyp Past Surgical History: Procedure Laterality Date ADENOIDECTOMY CAROTID STENT Right 09/2019 stent, RT carotid CT GUIDED TRANSVAGINAL TRANSRECTAL FLUID DRAIN 06/09/2020 CT GUIDED TRANSVAGINAL TRANSRECTAL FLUID DRAIN 06/09/2020 OTHER SURGICAL HISTORY Removal of Polyp Vocal area and Vocal Cord cyst MS EXCISION THYROGLOSSAL DUCT CYST/SINUS Procedure:DL, e/o thyroglossal [...] 02/15/2025 7:20 AM EDTAssociated Problem(s): Centrilobular emphysema ([facility]/HCC) Continue with pulmonology Continue with inhaler albuterol, we can try to help with PA Chest CT 09/14 new lung masses * Azul Quezada NP - 02/15/2025 7:19 AM EDTAssociated Problem(s): Depression with anxiety Current med: fluoxetine * Azul Quezada NP - 02/15/2025 7:18 AM EDTAssociated Problem(s): CVA (cerebral vascular accident) ([facility]/HCC) No focal weakness Continues as directed by neurology documented in this encounterNevada Regional Medical CenterEupuoecrqv63-68-1982 Instructions* Patient Instructions* Azul Quezada NP - 02/15/2025 1:40 PM EDT Return the patient assistance medication forms and we can try to help you get the medications (inhaler) documented in this encounterNevada Regional Medical CenterIguuacqsge08-47-6230 History of Present illness Narrative* Azul Quezada NP - 11/16/2024 3:03 PM ESTAssociated Problem(s): COPD with acute exacerbation ([facility]) Add atb, steroids, check cxr Pt needs [...] artery stenosis Calcified lymph nodes Centrilobular emphysema ([facility]/HCC) COVID-19 07/2019 CVA (cerebral vascular accident) ([facility]) Degenerative cervical disc Depression with anxiety Insomnia Marijuana abuse 10/30/2023 Multiple pulmonary nodules Neck mass 2013 Osteoarthritis Papule of skin 11/13/2023 Pigmented skin lesion of uncertain nature Rheumatic fever Stroke ([facility]) 07/2020 Testicle lump Tourette's ([facility]) Vertebral artery occlusion Vocal cord polyp Past Surgical History: Procedure Laterality Date ADENOIDECTOMY CAROTID STENT Right 09/2019 stent, RT carotid CT GUIDED TRANSVAGINAL TRANSRECTAL FLUID DRAIN 06/09/2020 CT GUIDED TRANSVAGINAL TRANSRECTAL FLUID DRAIN 06/09/2020 OTHER SURGICAL HISTORY Removal of Polyp Vocal area and Vocal Cord cyst MS EXCISION THYROGLOSSAL DUCT CYST/SINUS Procedure:DL, e/o thyroglossal [...] Continue with pulmonology Continue with inhaler * zAul Quezada NP - 11/16/2024 7:05 AM ESTAssociated Problem(s): CVA (cerebral vascular accident) (CMS/HCC) No focal weakness Continues as directed by neurology documented in this [facility]02-25-2025 Instructions* Patient Instructions* Azul Quezada NP - 11/16/2024 2:00 PM EST Get back into see dr white No dose changes in your meds Chest xray documented in this [facility]11-25-2024 History of Present illness Narrative* Azul Quezada [...] artery stenosis Calcified lymph nodes Centrilobular emphysema ([facility]) COVID-19 07/2019 CVA (cerebral vascular accident) ([facility]) Degenerative cervical disc Depression with anxiety Insomnia Marijuana abuse 10/30/2023 Multiple pulmonary nodules Neck mass 2013 Osteoarthritis Papule of skin 11/13/2023 Pigmented skin lesion of uncertain nature Rheumatic fever Stroke ([facility]) 07/2020 Testicle lump Tourette's ([facility]) Vertebral artery occlusion Vocal cord polyp Past Surgical History: Procedure Laterality Date ADENOIDECTOMY CAROTID STENT Right 09/2019 stent, RT carotid CT GUIDED TRANSVAGINAL TRANSRECTAL FLUID DRAIN 06/09/2020 CT GUIDED TRANSVAGINAL TRANSRECTAL FLUID DRAIN 06/09/2020 OTHER SURGICAL HISTORY Removal of Polyp Vocal area and Vocal Cord cyst MS EXCISION THYROGLOSSAL DUCT CYST/SINUS Procedure:DL, e/o thyroglossal [...] of the risks of continued smoking: stroke, [place], all forms of cancer, lung disease, and [...] Relevant Orders Flu vaccine, MDCK, quadrivalent, PF ([id number]) (Flucelvax single dose syringe) (Completed) Former smoker [...] of the risks of continued smoking: stroke, [place], all forms of cancer, lung disease, and [...] Insomnia Continue with trazodone documented in this encounterNevada Regional Medical CenterNxzxxdhtty90-86-3578 Instructions* Patient Instructions* Azul Quezada NP - 08/16/2024 1:20 PM EST Great job at quitting smoking Keep follow up with dr white as directed Follow up with Vascular doctor in [place] as well as directed documented in this [facility]09-09-2024 History of Present illness Narrative* Ibeth Torres [...] fever Stroke (CMS/HCC) 07/2020 Testicle lump Tourette's ([facility]) Vertebral artery occlusion Vocal cord polyp Social [...] Polyp Vocal area and Vocal Cord cyst MS EXCISION THYROGLOSSAL DUCT CYST/SINUS Procedure:DL, e/o thyroglossal [...] Polyp Vocal area and Vocal Cord cyst MS EXCISION THYROGLOSSAL DUCT CYST/SINUS Procedure:DL, e/o thyroglossal [...] Positives noted above. Remainder are negative per [facility] guidelines. OBJECTIVE: Visit Vitals BP 110/66 Pulse [...] you, Mars Torres DO documented in this encounterNevada Regional Medical [id number] History of Present illness Narrative* Azul Quezada [...] (CMS/HCC) COVID-19 07/2019 CVA (cerebral vascular accident) ([facility]) Degenerative cervical disc Depression with anxiety Insomnia Marijuana abuse 10/30/2023 Multiple pulmonary nodules Neck mass 2014 Osteoarthritis Papule of skin 11/13/2023 Pigmented skin lesion of uncertain nature Rheumatic fever Stroke ([facility]/HCC) 07/2020 Testicle lump Tourette's (CMS/HCC) Vertebral artery occlusion Vocal cord polyp Past Surgical History: Procedure Laterality Date ADENOIDECTOMY CAROTID STENT Right 09/2019 stent, RT carotid CT GUIDED TRANSVAGINAL TRANSRECTAL FLUID DRAIN 06/09/2020 CT GUIDED TRANSVAGINAL TRANSRECTAL FLUID DRAIN 06/09/2020 OTHER SURGICAL HISTORY Removal of Polyp Vocal area and Vocal Cord cyst MS EXCISION THYROGLOSSAL DUCT CYST/SINUS Procedure:DL, e/o thyroglossal [...] monitor at this time documented in this encounterNevada Regional Medical [id number] Miscellaneous Notes* Telephone Encounter - Grace Moore [...] went to but inbox was full and personal lines underwriter was unable to leave message reminder [...] if he could have it done in [place] at the [facility] facility there because he doesn't have a car and stated it would be impossible for him to make it to [place]. [employer] confirmed patient had central scheduling phone number to get the scans scheduled. * Telephone Encounter - Grace Moore RN - 01/14/2024 8:50 AM EDT Called patient and got VM but it was full so personal lines underwriter was unable to leave message reminding patient of imaging that is due. * Telephone Encounter - Grace Moore RN - 01/14/2024 8:50 AM EDT Attempted to call patient and got voicemail but personal lines underwriter was unable to leave message due to it being full. Will try again later and send letter with order via mail. * Telephone Encounter - Grace Moore RN - 01/14/2024 8:50 AM EDT Attempted to call patient and got voicemail but personal lines underwriter was unable to leave message due to it being full. Letter and order mailed to address on file. Will follow up in 1 month. * Telephone Encounter - Grace Moore RN - 01/14/2024 8:50 AM EDT Attempted to call patient and got voicemail but personal lines underwriter was unable to leave message due to it being full. [facility]Mem[facility] Telephone encounter Note* Telephone Encounter - Grace Moore RN - 01/14/2024 8:50 AM EDT Per January 2024 recall, patient is due for routine CUS imaging per Dr. Terrell. Please call to remind patient and provide central scheduling number if needed. Will call with results once completed. [facility]04-[facility] Telephone encounter Note* Telephone Encounter - Grace Moore RN - 01/14/2024 8:50 AM EDT Called patient, call went to but inbox was full and personal lines underwriter was unable to leave message reminder for imaging. Will try again later. [facility]04-24-[facility] Telephone encounter Note* Telephone Encounter - Ashwini Jones - 01/14/2024 8:50 AM EDT Received call today 01/14/24 1:05 from patient in regard to previous message and I informed him of clinical staff's messages below - he voiced understanding and I provided him with Central Scheduling phone# to schedule imaging. [facility]04-24-[facility] Telephone encounter Note* Telephone Encounter - Grace Moore RN - 01/14/2024 8:50 AM EDT Called patient and reminded of imaging that is due. He stated understanding and asked if he could have it done in [place] at the [facility] facility there because he doesn't have a car and stated it would be impossible for him to make it to [place]. [employer] confirmed patient had central scheduling phone number to get the scans scheduled. [facility]04-24-[facility] Telephone encounter Note* Telephone Encounter - Grace Moore RN - 01/14/2024 8:50 AM EDT Called patient and got but it was full so personal lines underwriter was unable to leave message reminding patient of imaging that is due. [facility]04-[facility] Telephone encounter Note* Telephone Encounter - Grace Moore RN - 01/14/2024 8:50 AM EDT Attempted to call patient and got voicemail but personal lines underwriter was unable to leave message due to it being full. Will try again later and send letter with order via mail. [facility] Social IQ (Social Influence Quotient) [id number] Telephone encounter Note* Telephone Encounter - Grace Moore RN - 01/14/2024 8:50 AM EDT Attempted to call patient and got voicemail but personal lines underwriter was unable to leave message due to it being full. Letter and order mailed to address on file. Will follow up in 1 month. [facility] Social IQ (Social Influence Quotient) [id number] Telephone encounter Note* Telephone Encounter - Grace Moore RN - 01/14/2024 8:50 AM EDT Attempted to call patient and got voicemail but personal lines underwriter was unable to leave message due to it being full. [facility] Social IQ (Social Influence Quotient) [id number] History of Present illness Narrative* Azul Quezada [...] artery stenosis Calcified lymph nodes Centrilobular emphysema ([facility]/HCC) COVID-19 07/2019 CVA (cerebral vascular accident) ([facility]) Degenerative cervical disc Depression with anxiety Insomnia Marijuana abuse 10/30/2023 Multiple pulmonary nodules Neck mass 2013 Osteoarthritis Papule of skin Pigmented skin lesion of uncertain nature Rheumatic fever Stroke ([facility]) 07/2020 Testicle lump Tourette's ([facility]) Vertebral artery occlusion Vocal cord polyp Past Surgical History: Procedure Laterality Date ADENOIDECTOMY CAROTID STENT Right 09/2019 stent, RT carotid CT GUIDED TRANSVAGINAL TRANSRECTAL FLUID DRAIN 06/09/2020 CT GUIDED TRANSVAGINAL TRANSRECTAL FLUID DRAIN 06/09/2020 OTHER SURGICAL HISTORY Removal of Polyp Vocal area and Vocal Cord cyst MS EXCISION THYROGLOSSAL DUCT CYST/SINUS Procedure:DL, e/o thyroglossal [...] PSA level- Primary documented in this encounter [facility] HealthcareEvaluation note* Diagnosis Depression with anxiety Dysthymic disorder Insomnia, unspecified Mixed hyperlipidemia (CMS/HCC) Mixed hyperlipidemia documented in [facility] encounter [facility]* Diagnosis Internal carotid artery stenosis, right- Primary [facility]* Diagnosis Influenza- Primary Influenza with [...] facility Routine general medical examination at a [facility] care facility Depression with anxiety- Primary [...] encounter [facility] HealthcareInstructionsNot on filedocumented in this encounterMemorial Health System [facility] HospitalReason for referral (narrative)* Consultation (Routine) - Pending ReviewSpecialtyDiagnoses / ProceduresReferred By ContactReferred To Contact General Surgery Diagnoses Sessile colonic polyp Procedures MS OFFICE/OUTPATIENT [facility] 60 MINUTES Azul Quezada, ORACIO [address] [place] [address] Ibeth Torres DO [address] [facility] [address] [place] [address] Referral IDStatusReasonStart DateExpiration DateVisits RequestedVisits [id number] Review Specialty Services Required [id number] [facility] Summary Purpose Family History No [...] Vas carotid duplex bilateral Andrew Terrell MD [address] [place] [address], [address] [place] [address] Referral IDStatusReasonStart DateExpiration DateVisits RequestedVisits [id number] Review/ Additional Source Comments (unrecognized sect ion and content) No Status Records FoundNo Status Records FoundNo Status Records FoundNo Status Records FoundNo Status Records FoundNo Status Records Found INFORMATION SOURCE (unrecogn ized section and content) DATE CREATED AUTHOR 09/04/[address] [facility] DATE CREATED AUTHOR AUTHOR'S ORGANIZ ATION 09/30/2022 [facility] DATE CREATED AUTHOR AUTHOR'S ORGANIZ ATION 05/19/2025 [facility] DATE CREATED AUTHOR AUTHOR'S ORGANIZ ATION 07/14/2025 [facility] DATE CREATED AUTHOR AUTHOR'S ORGANIZ ATION 07/14/2025 [facility] DATE CREATED AUTHOR AUTHOR'S ORGANIZ ATION 07/14/2025 [facility] Care Teams (unrecognized sec tion and content) Team MemberRelationshipSpecialtyStart DateEnd Date Kiko Zurita MD PCP - GeneralFamily Medicine04/07/23 Azul Quezada NP [address] [place] [address] Referring PhysicianNurse Practitioner04/07/23Team MemberRelationshipSpecialty Start DateEnd Date Kiko Zurita MD [address] [place] [address] [facility] - [facility]10/24/23 Azul Quezada NP [address] [place] [address] Referring PhysicianNurse Practitioner04/07/23Team MemberRelationshipSpecialty Start DateEnd Date Kiko Zurita MD [address] [place] [address] PCP - [facility] Medicine10/24/23 Azul Quezada NP [address] [place] [address] Referring PhysicianNurse Practitioner04/07/23Team MemberRelationshipSpecialty Start DateEnd Date Kiko Zurita MD [address] [place] [address] [facility] - [facility]10/24/23 Azul Quezada NP [address] [place] [address] Referring PhysicianNurse Practitioner04/07/23Team MemberRelationshipSpecialty Start DateEnd Date Kiko Zurita MD [address] [place] [address] PCP - Generalmily Medicine10/24/23 Azul Quezada NP [address] [place] [address] Referring PhysicianNurse Practitioner04/07/23Team MemberRelationshipSpecialty Start DateEnd Date Kiko Zurita MD [address] [place] [address] PCP - [facility]10/24/23 Azul Quezada NP [address] [place] [address] Referring PhysicianNurse Practitioner04/07/23Team MemberRelationshipSpecialty Start DateEnd Date Kiko Zurita MD [address] [place] [address] PCP - [facility]10/24/23 Azul Quezada NP [address] [place] [address] Referring PhysicianNurse Practitioner04/07/23Team MemberRelationshipSpecialty Start DateEnd Date Kiko Zurita MD [address] [place] [address] PCP - [facility]10/24/23 Azul Quezada NP [address] [place] [address] Referring PhysicianNurse Practitioner04/07/23Team MemberRelationshipSpecialty Start DateEnd Date Kiko Zurita MD [address] [place] [address] PCP - GeneralFamily Medicine10/24/23 Azul Quezada NP [address] [place] [address] Referring PhysicianNurse Practitioner04/07/23Team MemberRelationshipSpecialty Start DateEnd Date Kiko Zurita MD [address] [place] [address] P[facility] - [facility]10/24/23 Azul Quezada NP [address] [place] [address] Referring PhysicianNurse Practitioner04/07/23Team MemberRelationshipSpecialty Start DateEnd Date Kiko Zurita MD [address] [place] [address] PCP - GeneralFamily Medicine10/24/23 Azul Quezada NP [address] [place] [address] Referring PhysicianNurse Practitioner04/07/23Team MemberRelationshipSpecialty Start DateEnd Date Azul Quezada, FINANCE [facility] [address] [place] [address] PCP - GeneralNurse Mhqcvjghoqvh23/9/19Team MemberRelationshipSpecialtyStart Date End Date Kiko Zurita MD [address] [place] [address] PCP - [facility]10/24/23 Azul Quezada NP [address] [place] [address] [facility] - [facility] Azul Quezada NP [address] [place] [address] Referring PhysicianNurse Practitioner04/07/23Team MemberRelationshipSpecialty Start DateEnd Date Kiko Zurita MD [address] [place] [address] PCP - [facility]10/24/23 Azul Quezada NP [address] [place] [address] [facility] - [facility]10/29/24 Azul Quezada NP [address] [place] [address] Referring PhysicianNurse Practitioner04/07/23Team MemberRelationshipSpecialty Start DateEnd Date Kiko Zurita MD [address] [place] [address] PCP - [facility]10/24/23 Azul Quezada NP [address] [place] [address] PCP - [facility]10/29/24 Azul Quezada NP [address] [place] [address] Referring PhysicianNurse Practitioner04/07/23Te MemberRelationshipSpecialty Start DateEnd Date Kiko Zurita MD [address] [place] [address] PCP - [facility] Medicine10/24/23 Azul Quezada NP [address] [place] [address] PCP - [facility]10/29/24 Azul Quezada NP [address] [place] [address] Referring PhysicianNurse Practitioner04/07/23Te MemberRelationshipSpecialty Start DateEnd Date Kiko Zurita MD [address] [place] [address] [facility] - [facility]10/24/23 Azul Quezada NP [address] [place] [address] PCP - [facility]10/29/24 Azul Quezada NP [address] [place] [address] Referring PhysicianNurse Practitioner04/07/23Team MemberRelationshipSpecialty Start DateEnd Date Kiko Zurita MD [address] [place] [address] PCP - GeneralFamily Medicine10/24/23 Azul Quezada NP [address] [place] [address] PCP - [facility]10/29/24 Azul Quezada NP [address] [place] [address] Referring PhysicianNurse Practitioner04/07/23Team MemberRelationshipSpecialty Start DateEnd Date Kiko Zurita MD [address] [place] [address] PCP - GeneralFamily Medicine10/24/23 Azul Quezada NP [address] [place] [address] PCP - [facility]10/29/24 Azul Quezada NP [address] [place] [address] Referring PhysicianNurse Practitioner04/07/23Team MemberRelationshipSpecialty Start DateEnd Date Kiko Zurita MD [address] [place] [address] PCP - GeneralFamily Medicine10/24/23 Azul Quezada NP [address] [place] [address] PCP - [facility]10/29/24 Azul Quezada NP [address] [place] [address] Referring PhysicianNurse Practitioner04/07/23Team MemberRelationshipSpecialty Start DateEnd Date Kiko Zurita MD [facility] - [facility]10/24/23 Azul Quezada NP [address] [place] [address] PCP - [facility]10/29/24 Azul Quezada [...] BE BASED ON THE PRIMARY CLINICAL RECORDS. [employer] provides no warranty or guarantee of the accuracy or completeness of information in this document.
--- OUTSIDE RECORDS SUMMARY | 2025-08-10 21:11 | XMS_ITS | Clinical Summary ---
Author Organization [employer] Address [id number] [place] [address] Care Team Providers Care Shovel Oiler Name Role Phone Azul Quezada APRN-INSTRUCTOR FLYING Primary Care Provider Allergies Active AllergyReactionsCriticalityNoted DateCommentsBee [...] Active Problems ProblemNoted DateDiagnosed DateStroke (cerebrum)07/08/2025Mixed hyperlipidemia 07/20/20208623Cpfokg44/29/2020Internal carotid artery stenosis, right06/10/2020CVA (cerebral vascular accident)06/10/2020 Encounters DateTypeDepartmentCare WhlwUkvhsvzacks46/18/2025 11:30 AM EDT - 07/09/2025 12:30 PM EDTSurgery [facility] [address] [place] [phone] Andrew Terrell MD Diagnostic cerebral xrpvczthi60/17/0323Jkutsd10/16/2025 12:52 PM EDT - 07/12/2025 4:58 PM EDTHospital Encounter [facility] - GEN 8 Acute [address] [place] [phone] Checo Aguilera MD EmmaLex MD Internal carotid artery stenosis, right (Primary Dx) Discharge Disposition: [facility] Facility-Medicare Cert07/07/2025 11:35 AM EDTAncillary Procedure [facility] [address] [place] [phone] Pain07/07/2025 11:30 AM EDTAncillary Procedure [facility] [place] [phone] Pain07/07/2025 11:20 AM EDTAncillary Procedure [facility] [address] [place] [phone] Pain07/07/2025Orders Only [facility] [place] [phone] External, Scanning Provider Pain (Primary Dx)from Last [...] relatives?Once a week06/10/2020How often do you attend jehovah's witness or temple services?Never06/10/2020Do you belong to any clubs or organizations such as jehovah's witness groups, unions, fraAdomo or athletic groups, or school groups?No 06/10/2020How often do you attend meetings of the clubs or organizations you belong to?Never06/10/2020Are you , , , , never , or living with a partner?Living with daruyha0806/10/2020PHQ-2AnswerDate RecordedTotal Aowlu813Finshriners hospitals for [facility] - Occupational Stress QuestionnaireAnswerDate [...] a part of a household?No07/08/2025hildcareAnswerDate RecordedChildcareUnknown 03/03/2019EmploymentAnswerDate FmdereakSoriuneftmFoxsanw84/12/2019Hunger ScreeningAnswerDate RecordedWithin the past 12 months we worried whether our food would run out before we got money to buy more.Never True07/08/2025Within the past 12 months the food we bought just didn't last and we didn't have money to get more.Never True07/08/2025Purpose - LifeAnswerDate RecordedPurpose and direction in solhAlzpycu65/26/2021ex and Gender InformationValueDate Recorded Sex Assigned at BirthNot on fileLegal MqoXisr3804/27/2015 11:32 AM EDTGender IdentityNot on fileSexual OrientationNot on file Last Filed Vital Signs Vital SignReadingTime TakenCommentsBlood Lvwmfsei692/8307/12/2025 2:48 PM EDT Sjqvi3688/21/2025 3:43 PM DXVUdjwkoidwsp66.9 ??C (98.4 ??F)07/12/2025 11:45 AM EDTRespiratory Vqae015807/12/2025 3:43 PM EDTOxygen Mvnktltigd80%07/12/2025 3:43 PM EDTInhaled Oxygen Concentration--Khzckh20 kg (202 lb 13.2 oz)07/12/2025 4:41 AM MLGJnnxyf205.4 cm (6' 1 )07/08/2025 1:01 PM EDTBody Mass Index26.7607/08/2025 1:01 PM EDT Plan of Treatment DateTypeDepartmentCare Team (Latest Contact Info)Bhpkmkxvimv78/04/2025 1:30 PM ESTOffice Visit [facility] Department of [address] [place] [address] Andrew Terrell MD [address] [place] [address] [address] [place] [address] Health MaintenanceDue DateLast DoneCommentsTobacco Gdzkbzzzpc1960Adult BMI Follow Up Plan1978DTaP,Tdap and Td Vaccines (1 - Tdap)1979Zoster (Shingles) Vaccine (1 of 2)2010bdominal Aortic Aneurysm (AAA) Screen 2025Fall Risk Uueqjuqtj49/01/2025Depression Eyytnetad89 Tobacco Uhxycytde68dult BMI Yiqcosfcf18RSV ( or age 60+ yrs)Rqkokokva25/09/2024Influenza VaccineCompleted 07/12/2025, 08/16/2024, 2020, Additional history exists Goals GoalPatient Goal TypeAssociated ProblemsRecent ProgressPatient-Stated?Author Safe Discharge Jaki Mock, RAJEEV Note: Evaluation of progress towards goal: safe transition to SNF rehab for strengthening and rehab s/p stroke Medical Devices ImplantedTypeAreaManufacturerDevice IdentifierShelf Expiration DateModel / Serial / LotStnt Vsc 8/6mm 6fr 30mm 135cm - [id number] Implanted:Qty: 1 on 06/12/2020 [facility] CarotidMEDTRONIC [id number] / / [id number] Crtd Neuroguard 40mm 140cm Clsd Cell Bln Fltr - [id number] Implanted:Qty: 1 on 07/09/2025 [facility]05/16/20273529QF-[id number]-[id number] / / [id number] Procedures Procedure NamePriorityDate/TimeAssociated DiagnosisCommentsEXTRA TUBES LAVENDER UFGTbbrnku81/21/2025 5:54 AM EDT EXTRA MIZDYWscesyb43/21/2025 5:54 AM EDT COMPREHENSIVE METABOLIC QQDSWGauwdlp80/21/2025 5:54 AM EDT COMPREHENSIVE METABOLIC HYXHZGrpsvqg72/20/2025 3:34 AM EDT CBC WITH AUTO EVOUTZLLSFDGRcxvkaj71/19/2025 3:28 AM EDT COMPREHENSIVE METABOLIC NKXPBLjmnomy39/19/2025 3:28 AM EDT NEURO PQJDBDJVVozagto59/18/2025 12:45 PM EDTNEURO IHCFJPAECbegvnv33/18/2025 12:45 PM EDTCBC WITH AUTO YGGUGYYTVDAQKbfsash51/18/2025 3:48 AM EDT COMPREHENSIVE METABOLIC MKHNNElhgasw89/18/2025 3:48 AM EDT FL SWALLOW MOTILITY NMTAZGYIEergghl49/17/2025 1:46 PM EDT ECHO COMPLETE W MKJXHFVYPpxetjq02/17/2025 1:37 PM EDT VASC CAROTID DUPLEX FNINOJMKLOijqzij32/ 11:11 AM EDT CBC WITH AUTO UUCFXUTXDBGDYirmtns89/17/2025 3:14 AM EDT COMPREHENSIVE METABOLIC WAUXAZywctjh55/17/2025 3:14 AM EDT LIPID NYYORGAOycwwnk87/17/2025 3:14 AM EDT MR BRAIN WO YEQDUZOT64/16/2025 9:02 PM EDT XR CHEST 1 NTFhaihso75/16/2025 6:56 PM EDT ECG 12-MLCWOGNR08/16/2025 5:35 PM EDT B-TYPE NATRIURETIC PEPTIDEAdd-On07/07/2025 3:49 PM EDT CBC WITH AUTO UPTJCPRPWZNJLsblekp83/16/2025 3:49 PM EDT COMPREHENSIVE METABOLIC NXFSAGiisqqj26/16/2025 3:49 PM EDT HEMOGLOBIN G2FBdaminn64/16/2025 3:49 PM EDT BEDSIDE TWFPJTSWoxyphe84/16/2025 2:[address] CEREBRAL PERF AAEZORVMLWTJ83/16/2025 2:[address] CTA UJDYYALMfbdxoq51/16/2025 11:[address] CTA XNQHEsnmzuj43/16/2025 11:[address] BRAIN WO MBFUBapjtwt90/16/2025 11:20 AM EDT Pain from Last 3 Months Results * Lavender Top (07/12/2025 5:54 AM EDT)ComponentValueRef RangeTest Method Analysis TimePerformed AtPathologist SignatureExtra TubeAuto Resulted 07/12/2025 7:01 AM EDTTHOLZER [facility] LABORATORYSpecimen (Source) Anatomical Location / LateralityCollection Method / VolumeCollection Time Received TimeBloodVenous blood / Ltvoygz1807/12/2025 5:54 AM EDT1 6:11 AM EDT Narrative Authorizing ProviderResult TypeResult StatusMojerzy BAKER BLOOD ORDERABLESFinal ResultPerforming OrganizationAddressCity/State/ZIP CodePhone Number [facility] [address] [place] [address], * (ABNORMAL) Comprehensive metabolic panel (07/12/2025 5:54 AM EDT) Only the most recent of6 resultswithin the time period is included. ComponentValueRef RangeTest MethodAnalysis TimePerformed AtPathologist Signature RTBHQP590930 - 146 mmol/L1 6:49 AM [facility] LABORATORYPOTASSIUM4.03.5 - 5.0 mmol/L1 6:49 AM [facility] XRVGHEZIHPLCEPAZQA68693 - 109 mmol/L1 6:49 AM [facility] LABORATORYCARBON OAZDJDZ3688 - 32 mmol/L1 6:49 AM [facility] LABORATORYANION GAP85 - 15 mmol/L1 6:49 AM [facility] LABORATORYBLOOD UREA VVQSOADT247 - 27 mg/dL07/12/2025 6:49 AM [facility] LABORATORYCREATININE0.750.60 - 1.30 mg/dL07/12/2025 6:49 AM [facility] LABORATORYComment:METHOD TRACEABLE TO IDMS CEVCKDZAMPUTOAP6673 - 99 mg/dL07/12/2025 6:49 AM [facility] LABORATORYCALCIUM8.68.5 - 10.5 mg/dL07/12/2025 6:49 AM [facility] LABORATORYTOTAL PROTEIN5.6(L)6.0 - 8.0 g/dL07/12/2025 6:49 AM [facility] LABORATORYALBUMIN3.43.2 - 5.3 g/dL07/12/2025 6:49 AM [facility] LABORATORYALKALINE OOZGOUSLOZJ8016 - 130 U/L1 6:49 AM [facility] GWPVVMVCOGVRP41<=41 U/L1 6:49 AM [facility] RCWFWMALBMOTM14<=40 U/L1 6:49 AM [facility] LABORATORYBILIRUBIN,TOTAL0.90.3 - 1.2 mg/dL07/12/2025 6:49 AM [facility]OR[facility]ORYEGFR Non-Race Dependent>90>=60 ml/min/1.73sq.m 07/12/2025 6:49 AM [facility] LABORATORYComment: Reported eGFR is based on the CKD-EPI 2020 equation that does not use a race coefficient. Specimen (Source)Anatomical Location / LateralityCollection Method / Volume Collection TimeReceived TimeBloodVenous blood / UnknownVenipuncture / Unknown 07/12/2025 5:54 AM EDT1 6:11 AM EDT Narrative Authorizing ProviderResult TypeResult StatusAhmed Deven Guzman MDLAB BLOOD ORDERABLESFinal ResultPerforming OrganizationAddressCity/State/ZIP CodePhone Number [facility] [address] [place] [address], * (ABNORMAL) CBC auto differential (07/10/2025 3:28 AM EDT) Only the most recent of4 resultswithin the time period is included. ComponentValueRef RangeTest MethodAnalysis TimePerformed AtPathologist Signature WBC10.04 - 11 x10E9/L1 3:55 AM [facility] RBC Count4.304.1 - 5.7 X10E12/L1 3:55 AM [facility] QYSIIBTHYBTeugivnspw04.6(L)13 - 17 g/dL07/10/2025 3:55 AM [facility] UTIWOTWMVJRzwidklros59.9(L)39 - 50 %07/10/2025 3:55 AM [facility] QTLXIQYGFDGUL7951 - 100 fL07/10/2025 3:55 AM [facility] AAZFJVDNJGQSB97.427 - 34 pg07/10/2025 3:55 AM [facility] AZLACRXJBIWHBT59.332 - 36 g/dL07/10/2025 3:55 AM [facility] ICYUXSSHKFBQP70.911.5 - 15 %07/10/2025 3:55 AM [facility] LABORATORYPlatelet Obbaq480820 - 450 X10E9/L1 3:55 AM [facility] LABORATORYMPV7.47 - 12 fL07/10/2025 3:55 AM [facility] LABORATORYNeutrophils %75.4%07/10/2025 3:55 AM [facility] LABORATORYLymphocytes %10.4%07/10/2025 3:55 AM [facility] LABORATORYMonocytes %10.7%07/10/2025 3:55 AM [facility] LABORATORYEosinophils %3.0%07/10/2025 3:55 AM [facility] LABORATORYBasophils %0.5%07/10/2025 3:55 AM [facility] LABORATORYNeutrophils Absolute (A)7.5(H)1.5 - 6.6 10*3/uL07/10/2025 3:55 AM [facility] LABORATORYLymphocytes Absolute1.01.0 - 3.5 10*3/uL 07/10/2025 3:55 AM [facility] LABORATORYMonocytes Absolute1.1 (H)0.0 - 0.9 10*3/uL07/10/2025 3:55 AM [facility] Eosinophils Absolute0.30.0 - 0.4 10*3/uL07/10/2025 3:55 AM [facility] LABORATORYBasophils Absolute0.10.0 - 0.2 10*3/uL07/10/2025 3:55 AM [facility] LABORATORYDifferential TypeAUTOMATED DIFFERENTIAL 07/10/2025 3:55 AM [facility] LABORATORYSpecimen (Source) Anatomical Location / LateralityCollection Method / VolumeCollection Time Received TimeBloodVenous blood / UnknownVenipuncture / Hhkkfwe1507/10/2025 3:28 AM EDT1 3:42 AM EDT Narrative Authorizing ProviderResult TypeResult StatusAhkellee Deven Guzman MDLAB BLOOD ORDERABLESFinal ResultPerforming OrganizationAddressCity/State/ZIP CodePhone Number [facility] [address] [place] [address], [place] [phone] * Fluoroscopy swallow motility function (07/08/2025 1:46 [...] 07/08/2025 1:55 PM Authorizing ProviderResult TypeResult StatusMojerzy FOX FLUOROSCOPY ORDERABLESFinal Result * Echo complete W/ contrast (07/08/2025 1:37 PM EDT)ComponentValueRef RangeTest MethodAnalysis TimePerformed AtPathologist SignatureLVOT stroke pamjqv54.58ml JJBWMLDVU7589 - 44 %XCELERALVIDd5.906.58 - 9.14 cmXCELERALVIDs3.703.82 - 5.79 cmXCELERAIVS0.900.6 - 1.1 cmXCELERAPW0.900.6 - 1.1 cmXCELERALVOT diameter1.90 cmXCELERATDI6.31cm/sXCELERAMV TDI E' (medial)5.98cm/sXCELERAE/A ratio0.82 XCELERAE wave deceleration ovlt600.00msecXCELERAMV Peak E Vel76.00cm/sXCELERA MV Peak A Vel92.80cm/sXCELERALA size2.70cmXCELERARV diastolic dimension (basal)32.2frXOQVTHMEBQEX2.83cmXCELERAAV peak qiq898.00cm/sXCELERALVOT peak vel1.31m/sXCELERAAV VTI25.10cmXCELERALVOT peak VTI25.60cmXCELERAAV mean gradient5.00mmHgXCELERAAV peak gradient7.62mmHgXCELERAAV valve area2.89XCELERA Valve area - Index1.3XCELERAMV pressure 1/2 time77.00msXCELERAMV valve area p 1/2 method2.30sp3QHYGLKDDT peak gradient3.11mmHgXCELERALV ESV A4C22.60mL XCELERALV RWT 2D30.51XCELERAAV Velocity Ratio1.02XCELERALeft Ventricle Mass 209.640168028147101oICWYOKALczeusyqsycwqavi Septum Diastolic Thickness by 2D9 cmXCELERAEst. RA xmppiwpv9nnOxQQGYIYTSR area16.6za5YUIUNDTIOWSWS-6.90XCELERA ZLVIDD-2.73XCELERAAnatomical RegionLateralityModalityChestN/AUltrasound Specimen (Source)Anatomical Location / LateralityCollection [...] patient's respiration. Authorizing ProviderResult TypeResult StatusRosibel Zhang [facility] ECHO ORDERABLESFinal Result * Vas carotid duplex [...] phone number besidetheir name. Authorizing ProviderResult TypeResult StatusKhalesonia KylieFormerly [facility] VASCULAR ORDERABLESFinal Result * (ABNORMAL) Lipid profile (07/08/2025 3:14 AM EDT)ComponentValueRef RangeTest MethodAnalysis TimePerformed AtPathologist GjlupcosqONGXTYEPNBF550(L)150 - 200 mg/dL07/08/2025 4:33 AM [facility] TLDFENZKFNGABODBCEXOPW1626 - 150 mg/dL07/08/2025 4:33 AM [facility] LABORATORYHDL NJQIMOFEXYP80>39 mg/dL07/08/2025 4:33 AM [facility] LABORATORYComment: HDL <40 mg/dL - High Risk HDL > or = 40mg/dL- Desirable HDL >60 mg/dL - Negative Risk LDL (CALC)51<130 mg/dL07/08/2025 4:33 AM [facility] Comment: LDL <100 mg/dL - Desirable LDL >160 mg/dL - High Risk CHOLESTEROL:HDL2.31.0 - 5.010 4:33 AM [facility] LABORATORYVERY LOW LNAACTTQLKS367 - 30 mg/dL07/08/2025 4:33 AM [facility] LABORATORYSpecimen (Source)Anatomical Location / Laterality Collection Method / VolumeCollection TimeReceived TimeBloodVenous blood / UnknownVenipuncture / Ihlvqrz6707/08/2025 3:14 AM EDT1 3:51 AM EDT Narrative Authorizing ProviderResult TypeResult StatusKhaled Vicente BAKER BLOOD ORDERABLESFinal ResultPerforming OrganizationAddressCity/State/ZIP CodePhone Number [facility] [address] [place] [address], [place] [phone] * MR brain without contrast (07/07/2025 9:02 [...] on 07/07/2025 9:12 PM Authorizing ProviderResult TypeResult StatusRosibel Zhang MDTUL[facility] [place] MRI ORDERABLESFinal Result * X-ray chest 1 [...] 07/07/2025 7:20 PM Authorizing ProviderResult TypeResult StatusErick STOUTG DIAGNOSTIC IMAGING ORDERABLESFinal Result * ECG 12 lead (07/07/2025 5:35 PM EDT)Specimen (Source)Anatomical Location / LateralityCollection Method / VolumeCollection TimeReceived Time07/07/2025 5:35 PM EDT Narrative TRACEMASTERVUE - 07/07/2025 5:52 PM EDT Authorizing ProviderResult TypeResult StatusErick Guzman MDECG ORDERABLES Final ResultPerforming OrganizationAddressCity/State/ZIP CodePhone Number TRACEMASTERVUE * B-type natriuretic peptide (07/07/2025 3:49 PM EDT)ComponentValueRef RangeTest MethodAnalysis TimePerformed AtPathologist AfedugmfoFMG32<=100 pg/mL07/07/2025 6:01 PM [facility] LABORATORYSpecimen (Source)Anatomical Location / LateralityCollection Method / VolumeCollection TimeReceived Time BloodVenous blood / UnknownVenipuncture / Wnsompl6407/07/2025 3:49 PM EDT 07/07/2025 4:02 PM EDT Narrative Authorizing ProviderResult TypeResult StatusErick BAKER BLOOD ORDERABLESFinal ResultPerforming OrganizationAddressCity/State/ZIP CodePhone Number [facility] [address] [place] [address], * (ABNORMAL) Hemoglobin A1c (07/07/2025 3:49 PM EDT)ComponentValueRef RangeTest MethodAnalysis TimePerformed AtPathologist SignatureHEMOGLOBIN A1C5.7(H)4.4 - 5.6 %07/07/2025 4:50 PM [facility] LABORATORYComment: ?ADA Guidelines ?Result ?HgbA1c ? Normal : ? less than 5.7 % ? Prediabetes : ?5.7 % ??to 6.4 % Diabetes : > 6.4 % ?Use with caution in patients with abnormal hemoglobin variants as ??the half-life of red blood cells and in vivo glycation rates are ??affected. EST. AVERAGE DYDYKYC643qq/dL07/07/2025 4:50 PM [facility] LABORATORYSpecimen (Source)Anatomical Location / LateralityCollection Method / VolumeCollection TimeReceived TimeBloodVenous blood / UnknownVenipuncture / Cdivlsc8007/07/2025 3:49 PM EDT1 4:02 PM EDT Narrative Authorizing ProviderResult TypeResult StatusRosibel Zhang MDLAB BLOOD ORDERABLESFinal ResultPerforming OrganizationAddressCity/State/ZIP CodePhone Number [facility] [address] [place] [address], [place] [phone] * (ABNORMAL) Bedside Glucose *Place/Obtain serum glucose if >500 per glucometer. (07/07/2025 2:48 PM EDT)ComponentValueRef RangeTest MethodAnalysis Time Performed AtPathologist SignatureBedside Glucose (POC)117(H)65 - 99 mg/dL 07/07/2025 2:53 PM [facility] LABORATORYSpecimen (Source)Anatomical Location / LateralityCollection Method / VolumeCollection TimeReceived Time arterial/zzayhoaqv70/16/2025 2:48 PM EDT1 2:53 PM EDT Narrative Authorizing ProviderResult TypeResult StatusMouhammad Deven Aguilera MDPOINT OF CARE TEST ORDERABLESFinal ResultPerforming OrganizationAddressCity/State/ZIP Code Phone Number [facility] [address] [place] [address], [place] * CT cerebral perfusion analysis (07/07/2025 [...] on 07/07/2025 2:47 PM Authorizing ProviderResult TypeResult Margo Zhang [facility] CT ORDERABLES Final Result * CT angiogram [...] (Latest Code Status on File) Date ActivatedDate UniiysmpibcPthrpudl11/16/2025 5:09 07/12/2025 7:04 PM Care Teams Team MemberRelationshipSpecialtyStart DateEnd Date Azul Quezada, ELECTRIC DETECTOR OPERATOR-INSTRUCTOR FLYING PCP - GeneralNurse Pxvjspynlycr83/9/19
--- OUTSIDE RECORDS SUMMARY | 2025-08-10 21:11 | XMS_ITS | Patient Health Record ---
Author Organization [facility] [place] Address [address] [place] [address] Care Team Providers Care Resource Management Planner Name Role Phone Azul Quezada CNP Primary Care Provider Unavail able Jameson White Unavailable [phone] Allergies No Known Allergies Results Component Value Reference Range Notes CT lung screening low-dose Reviewed date:09/08/2024 07:39:04 AM Interpretation: Performing Lab: Notes/Report: Source Facility: [place] [address] CT Scan Report Signed Patient: SAM KRAMER MR#: [id number] : 1960 Acct:[id number] Age/Sex: 64 / M ADM Date: 09/06/24 Loc: CT Attending Dr: Jameson White D.O. Ordering Physician: Jameson White D.O. Date of Service: 09/06/24 Procedure(s): CT lung screening low-dose Accession Number(s): [id number] cc: Azul Quezada NP [place] [address] Patient Name: SAM KRAMER MRN: [id number] date: 1960 Sex: M Assigned Patient Location: CT Current Patient Location: Accession/Order Number: [id number] Exam Date: 09/06/2024 14:22 Report Date: 09/08/2024 [...] Signed By: 09/08/24 0551 DD/ 0549 TD/TT: Manufacturing Quality Inspector: CT chest festus hoyos Reviewed date:12/07/2024 02:32:11 PM Interpretation: Performing Lab: Notes/Report: Source Facility: [facility] [place] [address] [place] [address] CT Scan Report Signed Patient: SAM KRAMER MR#: [id number] : 1960 Acct:[id number] Age/Sex: 64 / M ADM Date: 12/07/24 Loc: CT Attending Dr: Jameson White D.O. Ordering Physician: Jameson White D.O. Date of Service: 12/07/24 Procedure(s): CT chest wo con Accession Number(s): [id number] cc: Azul Quezada NP [place] [id number] Patient Name: SAM KRAMER MRN: [id number] date: 1960 Sex: M Assigned Patient Location: CT Current Patient Location: CT Accession/Order Number: [id number] Exam Date: 12/07/2024 13:12 Report Date: 12/07/2024 [...] Marsh Jr., D.O.12/07/2024 1:15 PM Dictation Location: [place] [address] Electronically authenticated by: [id number] Y Date: 12/07/2024 13:15 Dictated By: [employer] Marsh M.D. Signed By: 12/07/241317 DD/ 14 TD/TT: Manufacturing Quality Inspector: CT Chest Low Dose for Screen ing* Reviewed date:09/08/2024 07:34:23 AM Interpretation: Performing Lab: Notes/Report: CT Chest w/o contrast Reviewed date:12/07/2024 01:48:27 PM Interpretation: Performing Lab: Notes/Report: HEMOGLOBIN Reviewed date:10/26/2024 07:27:51 AM Interpretation: Performing Lab: Notes/Report: [facility] , Hemoglobin 14.8 14.0-18.0 g/dL Performing Lab:see note - [facility] LB Reason For Referral No Information Medications [...] nts Abrysvo Unknown 08/30/2024 Administered Flu, Flucelvax (33094) 6 mos and older, single-dose syringe (3001-6311)Unknown 08/16/2024dministered Social History Tobacco Use: Social History Observation Description Date Details (start date - stop date) Former Smoker NA - NA Tobacco Control (Standard) Question Answer Notes Tobacco use: Former smoker How long has it been since you last smoked?1-5 yearsAdditional Findings: Tobacco phk-xdusOn-nhlmq cigarette smoker (20-30/day) Problems Problem Type SNOMED Code ICD Code Onset Dates Problem Status W/U Status Risk Notes Problem Centrilobular emphysema (29988506) Centri lobular emphysema (J43.2) ActiveconfirmedPrior treatments: Symbicort 160 + Spiriva 2.5 > Stiolto, Advair, Trelegy & Breo (does not tolerate dry powder inhalers)ProblemLong-term current use of inhaled steroid (309335235)group home (current) use of inhaled steroids (Z79.51)ActiveconfirmedProblemLong-term current use of systemic steroid (286248172711540)group home (current) use of systemic steroids (Z79.52)Active confirmedProblemCOPD - Chronic obstructive pulmonary disease (06597403)COPD (chronic obstructive pulmonary disease) (J44.9)ActiveconfirmedProblemCannabis abuse (88222926)Marijuana abuse (F12.10)ActiveconfirmedProblemLeft hemiparesis (345625585)Left hemiparesis (G81.94)ActiveconfirmedProblemEx-tobacco user (finding) (977308467)History of tobacco abuse (Z87.891)Skruelcrxpqiocr9iit x ~35 years, quit roblemRight carotid artery stenosis (070737333176577)Carotid atherosclerosis, right (I65.21)ActiveconfirmedProblem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)Activeconfirmed Vital Signs Heart Rate 99 /min 03/14/2025 Yqymofoqhnl59.8 degrees Iqhybtnnfj86/23/2025Respiratory Rate20 /min03/14/2025 Vosxcnnt49 %03/14/2025lood pressure qjpqdimku94 mm Hg03/14/20258879Lmszom64 in 03/14/2025lood pressure rsxpmkeo397 mm Hg03/14/20252932Gzappk430.8 lbs03/14/2025MI 26.68 kg/m203/14/2025 Procedures Procedure Date Ordered Date Performed Result Body Sit e PFT (16142, 09868, 85496) 10/12/2024 N/A Encounters Encounter Location Date Provider Diagnosis Pulmonary [facility] [address] [place] [address] 12/07/2024 [facility] [place] [address]/09/2024 [facility] [place] [address] 09/06/2024[facility] [place] [address]/[facility] [place] [address]/[facility] [place] [address]/[facility] SamsaCentrilobular emphysema J43.2 ; Multiple pulmonary nodules R91.8 ; Encounter for immunization Z23 ; Peripheral eosinophilia D72.19 ; History of tobacco abuse Z87.891 ; terminal manager (current) use of inhaled steroids Z79.51 and Encounter for screening for malignant neoplasm of respiratory organs Z12.2Pulmonary Medicine [address] [place] [address]/[facility] SamsaCentrilobular emphysema J43.2 ; Multiple pulmonary nodules R91.8 ; History of tobacco abuse Z87.891and terminal manager (current) use of inhaled steroids Z79.51Pulmonary Medicine [facility] [address] [place] [address]/[facility] SamsaCentrilobular emphysema J43.2 ; Multiple pulmonary nodules R91.8 ; History of tobacco abuse Z87.891; group home (current) use of inhaled steroids Z79.51 and Encounter for screening for malignant neoplasm of respiratory organs Z12.2Pulmonary Medicine [address] [place] [address]/Jameson White Centrilobular emphysema J43.2 ; History of tobacco abuse Z87.891 ; terminal manager (current) use of systemic steroids Z79.52 and group home (current) use of inhaled steroids Z79.51 Assessments [...] covered or not. Initial paperwork was signed. Nasn-lj-tvba encounter performed with the patient to document [...] would be due in mid November 2024. 5Centrilobular emphysema (ICD-10 - J43.2) Prior treatments: [...] him from this). Discussed adverse effects of intermediate designer systemic steroids including, but not limited to: [...] - Z79.52) Discussed adverse effects of intermediate designer systemic steroids including, but not limited to: [...] anything. 10/12/2024Other Counseled not to smoke anything. 12/14/20246249Iysho45/23/2025Other Plan Of Treatment Pending Test Test Name Order Date PFT (20746, 00381, 95944) 10/12/2024 Insurance Providers Payer Name Payer Address Payer Phone Subscriber Number Group Number Insured Name Patient Relationship to Insured Coverage Start Date Coverage End Date [place] [address] [place] [address] [id number] Wally rKamerdeepakatherin - patient is the [id number] 1993 Medical (General) History Medical History History ICD Code Centrilobular emphysema J43.2 Allergic rhinitis J30.9 Bilateral carotid artery stenosis I65.23 Calcified lymph nodes I89.8 Depression with anxiety F41.8 Marijuana abuse F12.10 Peripheral eosinophilia D72.19 Tourette's F95.2 Osteoarthritis M19.90 Multiple pulmonary nodules R91.8 Vertebral artery occlusion, 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
--- OUTSIDE RECORDS SUMMARY | 2025-08-10 21:11 | XMS_ITS | Clinical Summary ---
Author Organization [facility] Address [address] [place] [address] Care Team Providers Care Sales Broker Name Role Phone Azul Quezada ACADEMIC AFFAIRS SPECIALIST Unavailable [phone] Kiko Zurita MD Primary Care Provider [phone] Azul Quezada ACADEMIC AFFAIRS SPECIALIST Unavailable [phone] Allergies Active AllergyReactionsCriticalityNoted DateCommentsBee AqdboXczbxlp14/18/2020 Medications MedicationSigDispense QuantityRefillsLast FilledStart DateEnd DateStatus albuterol [...] As Needed for shortness of breath or /06/2025Active atorvastatin (Lipitor) 40 MG tablet Indications:Mixed hyperlipidemiaTake [...] DAYS05/11/2025 Active Active Problems ProblemNoted DateDiagnosed DateElevated ajcrzas0205/17/2025Pain of right hip 05/17/2025 Assessment & Plan (05/17/2025 5:24 PM EDT): Check xray and go from there [facility] current use of inhaled ksljawv2511/16/2024OPD with acute exacerbation 11/16/2024 Assessment & Plan (11/16/2024 6:53 PM EST): Add atb, steroids, check cxr Pt needs to get in touch with dr tim If resp condition worsens go to the ER Needs flu shot08/16/2024Former roowcy5408/16/2024 Assessment & Plan (08/16/2024 1:38 PM EST): Quit smoking, and no smoking THC!! Great job Rising PSA level06/01/2024 Overview (09/07/2024): 02/2022: 0.86 04/2024: 1.91 09/07/24: 1.0 Screening for prostate wxxtya3605/19/2024 Overview (06/01/2024): PSA: 05/31/24 1.91, 04/29/23 0.94, 03/06/2022 0.86, 05/11/20 0.79 Sessile colonic polyp05/19/2024 Assessment & Plan (08/16/2024 7:27 AM EST): Has been referred to Gen Surgery for colonoscopy Right hand pain05/19/2024 Assessment & Plan (05/19/2024 3:10 PM EDT): Offered xray he declines Will just monitor at this time Overweight (BMI 25.0-29.9)12/15/2023Encounter for subsequent annual wellness visit (AWV) in Medicare vvibuzz1311/13/2023 Assessment & Plan (11/16/2024 7:09 AM EST): [...] EDT): No current med use for this Bzrrivkl47/08/2024 Assessment & Plan (08/16/2024 7:22 AM EST): Continue with trazodone Multiple pulmonary erhypmw2010/30/2023entrilobular pyjcbgqes25/08/2024 Assessment & Plan (05/17/2025 6:54 AM EDT): 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, 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 needs a new hazardous waste remover and needs a referral to [facility] Chest [...] have asked the pt to contact his hazardous waste remover for management of this exacerbation He states [...] as well as current inhalers Vertebral artery /08/2024ilateral carotid artery fiuayrel60/08/2024 Assessment & Plan (05/17/2025 6:54 AM EDT): [...] active symptoms at this time Degenerative cervical disc10/30/20239314Wkxmmgpwetykrb25/08/2024alcified lymph nodes10/30/2023Vocal cord polyp10/30/2023epression with kgvohnp9410/30/2023 Assessment & Plan (05/17/2025 6:56 AM EDT): [...] doses Is stable at this time Allergic /08/2024Marijuana abuse10/30/2023MI 26.0-26.9,adult 10/30/20234970Ejxzja64/01/2020Mixed vjfwewhewrwfai13/29/2020 Assessment & Plan (11/13/2023 11:39 AM EST): [...] ProblemNoted DateDiagnosed DateResolved DateColon polyp Papule of skin/2563Hogwttrfa26 Assessment & Plan (10/30/2023 11:06 AM EST): Continues to slowly improve, recommend flu shot pt did not get this Fatigue remains, will see back in office in 2 weeks and remains off work Zrqcuh01 Assessment & Plan (08/16/2024 7:25 AM EST): [...] ready to start this process Encounters DateTypeDepartmentCare OqnqOtzcdrvdszh94/26/2025 3:20 PM EDTOffice Visit [facility] [address] [place] [address] Azul Quezada NP Centrilobular emphysema (HCC) (Primary Dx); Tourette's ; Bilateral carotid artery stenosis; Rising PSA level; Mixed hyperlipidemia ; Depression with anxiety; Former smoker; Elevated glucose; Pain of right hip05/17/2025amboo flowsheet [facility] [address] [place] [address] Azul Quezada NP 05/13/2025Patient Outreach [facility] [address] [place] [place] [address] Angy Samayoa LPN 05/11/2025bstract [facility] [address] [place] [address] Azul Quezada NP 05/10/2025bstract [facility] [address] [facility] [place] [address] Azul Quezada NP from Last 3 Months Immunizations ImmunizationAdministration DatesNext DueABRYSVO - Respiratory syncytial virus (RSV), vaccine, bivalent, protein subunit RSV prefusion F, diluent reconstituted, 0.5 mL, PF08/30/2024Influenza, High Dose Seasonal, Preservative Free08/04/2019Influenza, injectable, MDCK, preservative free, quadrivalent 08/16/2024Influenza, injectable, quadrivalent, preservative free07/05/2015 Influenza, live, intranasal, zbpjhpnlucbt22/01/2020 Family History Medical HistoryRelationNameCommentsHeart attackFatherAsthmaMotherDiabetesMother HypertensionMotherRelationNameStatusCommentsFatherMother Social History Tobacco UseTypesPacks/DayYears UsedDateSmoking Tobacco: FyylqzIufnjcnveq282 03/1984 - 03/2019Smokeless Tobacco: Never Tobacco Cessation:Counseling [...] times a week11/13/2023How often do you attend sabianism or zoroastrianism services?Never11/13/2023o you belong to any clubs or organizations such as sabianism groups, unions, fraternal or athletic groups, or school groups?Yes11/13/2023How often do you attend meetings of the clubs or organizations you belong to?More than 4 times per year11/13/2023re you , , , , never , or living with a partner? Gzdhocb6111/13/2023UDIT-CAnswerDate RecordedQ1: How often do you have a [...] hard at all11/13/2023HQ-2AnswerDate RecordedPatient Health Questionnaire-2 Score2 11/16/2024FinO[facility] - Occupational Stress QuestionnaireAnswerDate RecordedDo you feel stress - tense, restless, nervous, or anxious, or unable to sleep at night because yourmind is troubled all the time - these days?Only a vfqssc4611/13/2023Exercise Vital SignAnswerDate Recorded On average, how many [...] Last Filed Vital Signs Vital SignReadingTime TakenCommentsBlood Qdufzbxb629/7608/ 3:38 PM EDT Mfgwk315705/17/2025 3:38 PM VNTTphzzvimplq07.6 ??C (97.8 ??F)05/17/2025 3:38 PM EDTRespiratory Vlnl429705/17/2025 3:38 PM EDTOxygen Zjtgokyuun63%05/17/2025 3:38 PM EDTInhaled Oxygen Concentration--Xzqyxw99.8 kg (211 lb 3.2 oz)05/17/2025 3:38 PM XZAIwqdth828.4 cm (6' 1 )08/16/2024 1:20 PM ESTBody Mass Index27.8608/16/2024 1:20 PM EST Plan of Treatment Health MaintenanceDue DateLast DoneCommentsCT Diqaicpqegci1960FIT-DNA 1960FIT1960FOBT1960Lung Cancer Screening Shared Decision Cmresw73 1960 3833Zxaauqndjwkhg1960Pneumococcal Vaccine: 65+ Years (1 of 2 - PCV)1979COVID-19 Vaccine (1 - season)2025Influenza Vaccine (#1), 2020, 08/04/2019, Additional history exists Medicare Annual Wellness (AWV), 11/13/2023, 11/13/2023 Sirmphatdiu80olorectal Cancer Trjcrcmzk02/24/2029 Insurance Care Teams Team MemberRelationshipSpecialtyStart DateEnd Date Kiko Zurita MD [facility] Azul Quezada NP [address] [place] [address] PCP - ACO [facility]10/29/24 Azul Quezada NP Referring PhysicianNurse Practitioner04/07/23
[2025-08-10 21:12] LABS: Alanine Aminotransferase 29 U/L (16-63); Albumin Globulin Ratio 1.1; Albumin Level 3.5 g/dL (3.4-5.0); Alkaline Phosphatase 73 U/L (46-116); Anion Gap 8.4; Aspartate Amino Transferase 17 U/L (15-37); Blood Urea Nitrogen 15.0 mg/dL (7.0-18.0); Calcium 8.7 mg/dL (8.5-10.1); Carbon Dioxide 32.6 mmol/L (21.0-32.0); Chloride 106 mmol/L (98-107); Estimated GFR (African America >60 (>=60 mL/min/1.73m^2); Estimated GFR (Non-African Ame >60 (>=60 mL/min/1.73m^2); Globulin 3.3 g/dL; Glucose 148 mg/dL (74-106); NT Pro B Type Natriuretic Pept 72.0 pg/mL (<=900.0); Potassium 4.0 mmol/L (3.5-5.1); Sodium 143 mmol/L (136-145); Total Protein 6.8 g/dL (6.4-8.2)
[2025-08-10] MEDS: MAGNESIUM SULFATE IN WATER 2 GM/50 ML PREMIX IV (21:13)
--- OUTSIDE RECORDS SUMMARY | 2025-08-10 23:31 | XMS_ITS | CCD ---
Author Organization [facility] Care Team Providers Care Merchandise Processor Name Role Phone SAMSA, JAMESON Admitting Unavailable SAMSA, JAMESON Attending Unavailable AICHHOLZ, JIGGER CROWN POUNCING MACHINE OPERATOR AZUL Referring Unavailable AICHHOLZ, JIGGER CROWN POUNCING MACHINE OPERATOR AZUL Primary Care Unavailable SAMSA, JAMESON Consulting Unavailable AICHHOLZ, JIGGER CROWN POUNCING MACHINE OPERATOR AZUL Admitting Unavailable AICHHOLZ, JIGGER CROWN POUNCING MACHINE OPERATOR AZUL Attending Unavailable AICHHOLZ, JIGGER CROWN POUNCING MACHINE OPERATOR AZUL Primary Care Unavailable AICHHOLZ, JIGGER CROWN POUNCING MACHINE OPERATOR AZUL Consulting Unavailable SAMSA, JAMESON Admitting Unavailable SAMSA, JAMESON Attending Unavailable AICHHOLZ, JIGGER CROWN POUNCING MACHINE OPERATOR AZUL Primary Care Unavailable WHITNEY, DR YARIEL Figueroa Consulting Unavailable SAMSA, JAMESON Consulting Unavailable AICHHOLZ, JIGGER CROWN POUNCING MACHINE OPERATOR AZUL Primary Care Unavailable DAREN, DR MAURO Admitting Unavailable DAREN, DR MAURO Attending Unavailable WHITNEY, DR YARIEL Figueroa Consulting Unavailable DAREN, DR MAURO Consulting Unavailable Kiko Zurita MD Primary Care Provider [phone] Aichholz NATIONAL ACCOUNT REPRESENTATIVE, Azul Unavailable Kiko Zurita MD Primary Care Provider Aichholz NATIONAL ACCOUNT REPRESENTATIVE, Azul Unavailable Aichholz ATHLETIC FIELD CUSTODIAN-JIGGER CROWN POUNCING MACHINE OPERATOR, Azul J Primary Care Provider Aichholz NATIONAL ACCOUNT REPRESENTATIVE, Azul Unavailable AICHHOLZ, AZUL Attending Unavailable AICHHOLZ, [...] Unavailable 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 Primary Care Unavailable Damien NATIONAL ACCOUNT REPRESENTATIVE, Azul Unavailable Kiko Zurita MD Primary Care Provider Damien NATIONAL ACCOUNT REPRESENTATIVE, Azul Unavailable Allergies Allergy ClassificationReported Allergen(s)Allergy TypeDate of OnsetReaction(s) Facility (20 sources)Honey bee venomAllergy to acjadqdqz35-71-2092[facility] (3 sources)Bee Venom Protein (Honey Bee); 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: [BEE VENOM PROTEIN (HONEY BEE)]Propensity to adverse reactions to azqi15-88-6977[facility] Medications Current Medications MedicationDrug Class(es)DatesSig [...] oral tablet (3 sources)Penicillin-class AntibacterialStart: 11-16-2024 End: 50-24-1818zpzm 1 tablet by mouth in the morningamoxicillin-clavulanate (Augmentin) 875-125 MG tablet Indications: COPD with acute exacerbation (CMS /HCC) Take 1 tablet (875 mg) by mouth in the morning and 1 tablet (875 mg) before bedtime. Do all this for 10 days. 20 tablet 11/16/2024 11/26/2024 Active aspirin 81 mg chewable tablet (20 sources)Platelet Aggregation Inhibitor, Nonsteroidal Anti-inflammatory Drug Start: 87-85-5055skresxf 81 mg chewable tablet Chew 1 tablet (81 mg total) and swallow daily. 30 tablet 5 06/14/2020Activetake 1 tablet by mouth in the morning aspirin 81 MG EC tablet Take 81 mg by mouth in the morning. Activeatorvastatin 40 mg oral tablet (20 sources)HMG-CoA Reductase InhibitorStart: 03-15-2024 End: 96-43-0711xraf 1 tablet by mouth in the eveningatorvastatin (Lipitor) 40 MG tablet Indications: Mixed hyperlipidemia Take 1 tablet (40 mg) by mouth in the evening 90 tablet 1 12/27/2024 ActiveStart: 37-63-4670vyct 1 tablet by mouth once dailyatorvastatin (LIPITOR) 40 mg tablet Take 1 tablet (40 mg total) by mouth nightly. 30 tablet 2 06/13/2020 Activebisacodyl 5 mg delayed release oral tablet (3 sources)Stimulant LaxativeStart: 05-31-2024 End: 55-32-3908qvzo 1 tablet by mouth oncebisacodyl (Dulcolax) 5 MG EC tablet Indications: Screening for malignant neoplasm of colon Take 1 tablet (5 mg) by mouth 1 time for 1 dose Do not crush, chew, or split. Take as detailed on clinic hand out for colonoscopy prep 1 tablet 05/31/2024 05/31/2024 Kdnzju82 actuat budesonide 0.16 mg/actuat / formoterol fumarate 0.0045 mg/actuat metered dose inhaler (20 sources)Corticosteroid, beta2-Adrenergic Agonisttake 2 puff(s) by inhalation in the morningbudesonide-formoterol (Symbicort) 160-4.5 MCG/ACT inhaler Inhale 2 puffs in the morning and 2 puffsbefore bedtime. Rinse mouth with water after use to reduce aftertaste and incidence of candidiasis.Do not swallow.. Active Ensifentrine (Ohtuvayre) 3 MG/2.5ML suspension (11 sources)Start: 16-49-9297Attnvbvlpipa (Ohtuvayre) 3 MG/2.5ML suspension every 12 (twelve) hours 08/17/2024 Crunhxtvr134661 0.3 ml EPINEPHrine 1 mg/ml auto-injector (20 sources)alpha-Adrenergic Agonist, beta-Adrenergic Agonist, Catecholamine Start: 10-12-2896XEVKJFArsjs (Epipen) 0.3 MG/0.3ML injection syringe Inject 1 Syringe as directed 1 (one) time 05/30/2024 Activefamotidine 20 mg oral tablet (3 sources)Histamine-2 Receptor AntagonistStart: 05-30-2024 End: 30-33-9893dqmw 1 tablet by mouth in the morningfamotidine (Pepcid) 20 MG tablet Take 20 mg by mouth in the morning and 20 mg before bedtime. 05/30/2024 08/16/2024 Discontinued (Therapy completed)FLUoxetine 20 mg oral capsule (20 sources)Serotonin Reuptake InhibitorStart: 02-02-2024 End: 98-19-9689tjyd 1 capsule by mouth once dailyFLUoxetine (PROzac) 20 MG capsule Indications: Depression with anxiety Take 1 capsule (20 mg) by mouth Daily 90 capsule 1 02/15/2025 Activetake 1 capsule by mouth once dailyFLUoxetine (PROzac) 10 mg capsule Take 10 mg by mouth daily. ActivehydrOXYzine hydrochloride 25 mg oral tablet (11 sources)AntihistamineStart: 12-15-2023 End: 89-54-3894dqqr 1-2 tablets by mouth every eight hours for anxiety hydrOXYzine HCl (Atarax) 25 MG tablet Indications: Depression with anxiety Take 1-2 tablets (25-50 mg) by mouth every 8 (eight) hours if needed for anxiety for up to 10 days 60 tablet 12/15/2023 08/16/2024 Discontinued (Therapy completed) ipratropium bromide 0.2 mg/ml inhalation solution (11 sources)AnticholinergicStart: 55-80-9213espmtvahegg (Atrovent) 0.02 % nebulizer solution 2.5 mL inhaled via nebulizer every 8 hours As Needed for shortness of breath or wheezing 09/27/2024 Activelosartan potassium 25 mg oral tablet (3 sources)Angiotensin 2 Receptor BlockerStart: 84-70-5625vsvt 1 tablet by mouth once dailylosartan (Cozaar) 25 MG tablet Take 25 mg by mouth Daily 05/11/2025 Activepolyethylene glycol 3350 73746 mg powder for oral solution (3 sources)Osmotic LaxativeStart: 05-31-2024 End: 69-16-4323hvwa 17 g by mouth oncepolyethylene glycol, PEG, 3350 (Glycolax) 17 GM/SCOOP powder Indications: Colonoscopy Take 238 g bymouth 1 (one) time for 1 dose Take as detailed from clinic hand out for colonoscopy prep 238 g 05/3105/31/2024 ActivepredniSONE 10 mg oral tablet (15 sources)Start: 43-76-9513ypvr 1 tablet by mouth three times daily, then take 1 tablet by mouth twice daily, then take 1 tablet by mouth once dailypredniSONE (Deltasone) 10 MG tablet TAKE 1 TABLET BY MOUTH THREE TIMES DAILY FOR 4 DAYS, then TAKE 1 TABLET BY MOUTH TWICE DAILY FOR 4 DAYS, then TAKE 1 TABLET BY MOUTH DAILY FOR 4 DAYS 05/11/2025 ActiveStart: 11-16-2024 End: 09-07-5039tpue 1 tablet by mouth in the morningpredniSONE (Deltasone) 20 MG tablet Indications: COPD with acute exacerbation (CMS/HCC) Take 1 tablet (20 mg) by mouth in the morning and 1 tablet (20 mg) in the evening. Take with meals. Do all thisfor 5 days. Take with food. 10 tablet 11/16/2024 11/21/2024 ActiveStart: 05-30-2024 End: 61-80-0283eckd 1 tablet by mouth in the morningpredniSONE [...] tablet (20 sources)Serotonin Reuptake InhibitorStart: 12-16-2023 End: 37-20-0193ywlj 1 tablet by mouth at bedtimetraZODone (Desyrel) [...] (20 sources)Cerebrovascular accident; 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: [Cerebral infarction, unspecified]Onset: 897481-89-2515SyrbnibWjjpmnh disorders (20 sources)Other specified anxiety disorders; 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: [Mixed anxiety and depressive disorder]Onset: 326738-74-8733YsvsnixMmmfwdo obstructive pulmonary disease and bronchiectasis (20 sources)Emphysema, unspecified; 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: [Centrilobular emphysema] Onset: 14-53-6117VggcmlyEkocvhrv mellitus without complication (6 sources)Increased glucose level; 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: [Other abnormal glucose]Onset: 451545-24-6298XwhlacedGvvknwfhv of lipid metabolism (20 sources)Mixed hyperlipidemia; 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: [Mixed hyperlipidemia]Onset: 783962-48-9672UltthnzDkuhcvmxy usually diagnosed in infancy, childhood, or adolescence (20 sources)Wilian de la Tourette's syndrome; 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: [Tourette's disorder]Onset: 722677-58-8918KtedfdoUrsjwjaxmmpam mental health disorders (2 sources)Primary insomnia; 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: [Primary insomnia]55-75-9048Ajbybup Occlusion or stenosis of precerebral arteries (20 sources)Occlusion and stenosis of bilateral carotid arteries; 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: [Internal carotid artery stenosis]Onset: 48-12-1778NnvrwwkVzjcuaacwcatnh (20 sources)Osteoarthritis; 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: [Unspecified osteoarthritis, unspecified site]Onset: 668150-12-7922ZiiehmjBfpur diseases of veins and lymphatics (20 sources)Calcified lymph nodes; 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: [Other specified noninfective disorders of lymphatic vessels and lymph nodes]Onset: ChronicOther lower respiratory disease (4 sources)Shortness of breath; 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: [SHORTNESS OF BREATH]Onset: 53-30-2597BpwawuyoRosgr non-traumatic joint disorders (5 sources)Hip pain; 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: [Pain in right hip]Onset: 05-17-2025 41-23-8689ClyxkoxrTejhe upper respiratory disease (20 sources)Allergic rhinitis; 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: [Allergic rhinitis, unspecified] Onset: 751066-19-5250SnfgzaaJzyyhadq codes; unclassified (1 source)Pain, unspecified; Translations: [Pain, unspecified]Onset: 07-07-2025 EpisodicSpondylosis; intervertebral disc disorders; other back problems (20 sources)Degeneration of cervical intervertebral disc; Translations: [Other cervical disc degeneration, unspecified cervical region]Onset: 10-30-2023 96-83-7345RphtsgfZuqppltan-related disorders (20 sources)Cannabis abuse; Translations: [Cannabis abuse, uncomplicated]Onset: 07-20-2020 Resolved: 911724-42-5701PdwrbrdPlfuieurjqfw (1 source)CONTACT W/AND (SUSP) EXPOS COVID-19; Translations: [CONTACT W/AND (SUSP) EXPOS COVID-19]Onset: 05-52-9739Ttvhhxqeoxsr (1 source)EOSINOPHILIA UNSPECIFIED; Translations: [EOSINOPHILIA UNSPECIFIED] Onset: 04-20-2022 Past or Other Problems Problem ClassificationProblemDateDocumented DateEpisodic/ChronicImmunizations and screening for infectious disease (18 sources)Needs influenza immunization; Translations: [Encounter for immunization]Onset: 842110-73-5534FnrikrlsUkrhxtugc (20 sources)Influenza; Translations: [Influenza due to unidentified influenza virus with other respiratory manifestations]Onset: 10-30-2023 Resolved: 140273-32-7740DyvqzfijLhjv disorders (11 sources)Mood disordersOnset: 02-07-2022 Resolved: ther aftercare (12 sources)Long-term current use of inhaled steroid; Translations: [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 (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) use of inhaled steroids]Onset: 789487-17-8171JopbxjnlPyoud and unspecified benign neoplasm (20 sources)Polyp of colon; Translations: [Polyp of colon]Onset: 05-19-2024 Resolved: 849981-25-1722ZbxoycdnDdggq connective tissue disease (20 sources)Pain in right hand; Translations: [Pain in right hand]Onset: 686552-25-7683PhstdmjuTiaiu lower respiratory disease (20 sources)Multiple nodules of lung; Translations: [Other nonspecific abnormal finding of lung field]Onset: 542902-78-2918EpppinbrRufon nutritional; endocrine; and metabolic disorders (20 sources)Overweight in adulthood with body mass index of 25 or more but less than 30; Translations: [Body mass index (BMI) 26.0-26.9, adult]Onset: 10-30-2023 58-66-4686DesilownNooqz nutritional; endocrine; and metabolic disorders (20 sources)Body mass index 25-29 - overweight; Translations: [Overweight]Onset: 471414-25-2096GfmmaxulTutnc screening for suspected conditions (not mental disorders or infectious disease) (20 sources)Encounter for screening for malignant neoplasm of respiratory organs; Translations: [Encounter for screening for malignant neoplasm of prostate]Onset: 89-92-0170PqwbqmcsDsfyl skin disorders (20 sources)Papule of skin; Translations: [Other skin changes]Onset: 11-13-2023 Resolved: 119751-98-1968CguqdtddFskgy upper respiratory disease (20 sources)Polyp of vocal cord ; 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] Onset: 303737-11-5199IjxzyvlqBrtatsmm codes; unclassified (20 sources)Insomnia; Translations: [Insomnia, unspecified]Onset: 10-30-2023 94-39-2354YrjcvpmqCxnnzicrq and history of mental health and substance abuse codes (20 sources)Personal history of nicotine dependence; Translations: [Ex-smoker] Onset: 450284-66-0283RxnxecxzHxfyl infection (20 sources)Disease caused by 2019-nCoV; Translations: [COVID-19]Onset: 587338-94-0075Ibmpydho Results Test NameValueInterpretationReference RangeFacilityCOMPREHENSIVE METABOLIC PANEL on 90-16-0731Dnmlkas [Mass/Vol]3.4 g/dLNormal3.2-5.3P[facility] Comment on above:Performed By: #### BEDG #### [facility] ([facility]) [address] [place] [address] VIRALP [Catalytic activity/Vol]53 U/BTihyzs71-653FahCljucz [place] HospitalComment on above:Performed By: #### BEDG #### [facility] ([facility]) [address] [place] [address] VIRALT [Catalytic activity/Vol]10 U/LNormal<=40ProMercer County Community HospitalComment on above:Performed By: #### BEDG #### [facility] ([facility]) [address] [place] [address] VIRAnion gap [Moles/Vol]8 mmol/LNormal5-15ProAvita Health Systemca [facility] HospitalComment on above:Performed By: #### BEDG #### [facility] ([facility]) [address] [place] [address] VIRAST [Catalytic activity/Vol]16 U/LNormal<=41ProAvita Health Systemca [facility] HospitalComment on above:Performed By: #### BEDG #### [facility] ([facility]) [address] [place] [address] VIRBilirubin [Mass/Vol]0.9 mg/dLNormal0.3-1.2POhio State East Hospital HospitalComment on above:Performed By: #### BEDG #### [facility] ([facility]) [address] [place] [address] VIRCalcium [Mass/Vol]8.6 mg/dLNormal8.5-10.5POhio State East Hospital HospitalComment on above:Performed By: #### BEDG #### [facility] ([facility]) [address] [place] [address] VIRChloride [Moles/Vol]100 mmol/ZNhostu87-460YqpKtzviv [place] HospitalComment on above:Performed By: #### BEDG #### [facility] ([facility]) [address] [place] [address] VIRCO2 [Moles/Vol]29 mmol/ELzabfv65-11SlbMzvjhu [facility] Comment on above:Performed By: #### BEDG #### [facility] ([facility]) [address] [place] [address] VIRCreatinine [Mass/Vol]0.75 mg/dLNormal0.60-1.30ProW[facility] HospitalComment on above:Result Comment: METHOD TRACEABLE TO IDMS STANDARDPerformed By: #### BEDG #### [facility] ([facility]) [address] [place] [address] VIREGFR (CKD-EPI) NON-RACE DEPENDENT>^90Normal>=60ProWright-Patterson [facility] HospitalComment on above:Result Comment: Reported eGFR is based on the CKD-EPI 2020 equation that does not use a race coefficient.Performed By: #### BEDG #### [facility] ([facility]) [address] [place] [address] VIRGlucose [Mass/Vol]94 mg/oOVkkfme27-34IxpRelghu [place] HospitalComment on above:Performed By: #### BEDG #### [facility] ([facility]) [address] [place] [address] VIRPotassium [Moles/Vol]4.0 mmol/LNormal3.5-5.0ProWright-Pat[facility] HospitalComment on above:Performed By: #### BEDG #### [facility] ([facility]) [address] [place] [address] VIRProtein [Mass/Vol]5.6 g/dLLow6.0-8.0ProWright-Patterson [facility] HospitalComment on above:Performed By: #### BEDG #### [facility] ([facility]) [address] [place] [address] VIRSodium [Moles/Vol]137 mmol/INdykys324-049FcaIpgpza [place] HospitalComment on above:Performed By: #### BEDG #### [facility] ([facility]) [address] [place] [address] VIRUrea nitrogen [Mass/Vol]14 mg/dLNormal5-27ProW[facility] HospitalComment on above:Performed By: #### BEDG #### [facility] ([facility]) [address] [place] [address] VIRCOMPREHENSIVE METABOLIC PANELon 93-67-3130Rniaewb [Mass/Vol] 3.4 g/dLNormal3.2-5.3ProMedica [facility] HospitalComment on above:Performed By: #### BEDG #### [facility] ([facility]) [address] [place] [address] VIRALP [Catalytic activity/Vol]52 U/RHjjfmm00-548IxwHtiarn [facility] HospitalComment on above:Performed By: #### BEDG #### [facility] ([facility]) [address] [place] [address] VIRALT [Catalytic activity/Vol]10 U/LNormal<=40ProAvita Health Systemca [facility] HospitalComment on above:Performed By: #### BEDG #### [facility] ([facility]) [address] [place] [address] VIRAnion gap [Moles/Vol]7 mmol/LNormal5-15ProAvita Health Systemca [facility] HospitalComment on above:Performed By: #### BEDG #### [facility] ([facility]) [address] [place] [address] VIRAST [Catalytic activity/Vol]17 U/LNormal<=41ProAvita Health Systemca [facility] HospitalComment on above:Performed By: #### BEDG #### [facility] ([facility]) [address] [place] [address] VIRBilirubin [Mass/Vol]1.0 mg/dLNormal0.3-1.2POhio State East Hospital HospitalComment on above:Performed By: #### BEDG #### [facility] ([facility]) [address] [place] [address] VIRCalcium [Mass/Vol]8.6 mg/dLNormal8.5-10.5POhio State East Hospital HospitalComment on above:Performed By: #### BEDG #### [facility] ([facility]) [address] [facility] [place] [address] VIRChloride [Moles/Vol]99 mmol/VPncgmr67-611IylTgijkq [facility] HospitalComment on above:Performed By: #### BEDG #### [facility] ([facility]) [address] [facility] [place] [address] VIRCO2 [Moles/Vol]31 mmol/PIpahsh53-87NrxTlcxsz [facility] Comment on above:Performed By: #### BEDG #### [facility] ([facility]) [address] [place] [address] VIRCreatinine [Mass/Vol]0.79 mg/dLNormal0.60-1.30ProW[facility] HospitalComment on above:Result Comment: METHOD TRACEABLE TO IDMS STANDARDPerformed By: #### BEDG #### [facility] ([facility]) [address] [place] [address] VIREGFR (CKD-EPI) NON-RACE DEPENDENT>^90Normal>=60ProW[facility] HospitalComment on above:Result Comment: Reported eGFR is based on the CKD-EPI 2020 equation that does not use a race coefficient.Performed By: #### BEDG #### [facility] ([facility]) [address] [place] [address] VIRGlucose [Mass/Vol]91 mg/uTWzlvju81-26ZfdNxtjgd [place] HospitalComment on above:Performed By: #### BEDG #### [facility] ([facility]) [address] [place] [address] VIRPotassium [Moles/Vol]4.2 mmol/LNormal3.5-5.0ProW[facility] HospitalComment on above:Performed By: #### BEDG #### [facility] ([facility]) [address] [place] [address] VIRProtein [Mass/Vol]5.7 g/dLLow6.0-8.0ProW[facility] HospitalComment on above:Performed By: #### BEDG #### [facility] ([facility]) [address] [place] [address] VIRSodium [Moles/Vol]137 mmol/QAqmhfz904-203KrpKxgzcf [place] HospitalComment on above:Performed By: #### BEDG #### [facility] ([facility]) [address] [place] [address] VIRUrea nitrogen [Mass/Vol]13 mg/dLNormal5-27ProW[facility] HospitalComment on above:Performed By: #### BEDG #### [facility] ([facility]) [address] [place] [address] VIRCBC WITH AUTO DIFFERENTIALon 36-43-5233AADUTMUVA ABSOLUTE COUNT (10*3/UL) BY AUTOMATED COUNT0.1 10*3/uLNormal0.0-0.2[facility] HospitalComment on above:Performed By: #### BEDG #### [facility] ([facility]) [address] [place] [address] VIRBASOPHILS RELATIVE PERCENT BY AUTOMATED COUNT0.5 %Normal [facility] HospitalComment on above:Performed By: #### BEDG #### [facility] ([facility]) [address] [place] [address] VIRCELLAVISION DIFFERENTIAL TYPEAUTOMATED DIFFERENTIALNormal [facility] HospitalComment on above:Performed By: #### BEDG #### [facility] ([facility]) [address] [place] [address] VIREosinophils (Bld) [#/Vol]0.3 10*3/uLNormal0.0-0.4[facility] HospitalComment on above:Performed By: #### BEDG #### [facility] ([facility]) [address] [place] [address] VIREOSINOPHILS RELATIVE PERCENT BY AUTOMATED COUNT3.0 %Normal [facility] HospitalComment on above:Performed By: #### BEDG #### [facility] ([facility]) [address] [place] [address] VIRErythrocyte distribution width (RBC) [Ratio]12.9 %Normal 11.5-15ProMercer County Community HospitalComment on above:Performed By: #### BEDG #### [facility] ([facility]) [address] [place] [address] VIRHematocrit (Bld) [Volume fraction]37.9 %Alh76-66RimZmzdfx [facility] HospitalComment on above:Performed By: #### BEDG #### [facility] ([facility]) [address] [place] [address] VIRHemoglobin (Bld) [Mass/Vol]12.6 g/gDAkt89-67XyvOtfoyx [facility] HospitalComment on above:Performed By: #### BEDG #### [facility] ([facility]) [address] [place] [address] VIRLYMPHOCYTES ABSOLUTE COUNT (10*3/UL) BY AUTOMATED COUNT1.0 10*3/uLNormal1.0-3.5Pro[facility] HospitalComment on above:Performed By: #### BEDG #### [facility] ([facility]) [address] [place] [address] VIRLYMPHOCYTES RELATIVE PERCENT BY AUTOMATED COUNT10.4 %Normal [facility] HospitalComment on above:Performed By: #### BEDG #### [facility] ([facility]) [address] [place] [address] VIRMCH (RBC) [Entitic mass]29.4 xbGgweoz72-38JraAjelpc [place] HospitalComment on above:Performed By: #### BEDG #### [facility] ([facility]) [address] [place] [address] VIRMCHC (RBC) [Mass/Vol]33.3 g/mDNlbtih49-46ThfLlxqeg [facility] HospitalComment on above:Performed By: #### BEDG #### [facility] ([facility]) [address] [place] [address] VIRMCV (RBC) [Entitic vol]88 yRHkeged64-850OrnEpvajo [facility] HospitalComment on above:Performed By: #### BEDG #### [facility] ([facility]) [address] [place] [address] VIRMONOCYTES ABSOLUTE COUNT (10*3/UL) BY AUTOMATED COUNT1.1 10*3/uLHigh0.0-0.9Pro[facility] HospitalComment on above:Performed By: #### BEDG #### [facility] ([facility]) [address] [facility] [place] [address] VIRMONOCYTES RELATIVE PERCENT BY AUTOMATED COUNT10.7 %Normal [facility] HospitalComment on above:Performed By: #### BEDG #### [facility] ([facility]) [address] [facility] [place] [address] VIRNEUTROPHILS ABSOLUTE COUNT BY AUTOMATED COUNT7.5 10*3/uLHigh 1.5-6.6Pro[facility] HospitalComment on above:Performed By: #### BEDG #### [facility] ([facility]) [address] [facility] [place] [place] [address] VIRNEUTROPHILS RELATIVE PERCENT BY AUTOMATED COUNT75.4 %Normal [facility] HospitalComment on above:Performed By: #### BEDG #### [facility] ([facility]) [address] [facility] [place] [address] VIRPlatelet mean volume (Bld) [Entitic vol]7.4 fLNormal7-12 [facility] HospitalComment on above:Performed By: #### BEDG #### [facility] ([facility]) [address] [facility] [place] [place] [address] VIRPlatelets (Bld) [#/Vol]283 10*3/jFOkwrdb503-163QwkVzayfu [place] HospitalComment on above:Performed By: #### BEDG #### [facility] ([facility]) [address] [facility] [place] [address] VIRRBC COUNT4.30 X10E12/LNormal4.1-5.7[facility] Hospital Comment on above:Performed By: #### BEDG #### [facility] ([facility]) [address] [facility] [place] [address] VIRWBC (Bld) [#/Vol]10.0 10*3/uLNormal4-11ProAv[facility] Systemca [facility] HospitalComment on above:Performed By: #### BEDG #### [facility] ([facility]) [address] [place] [address] VIRCOMPREHENSIVE METABOLIC PANELon 89-26-6313Eewstnh [Mass/Vol] 3.5 g/dLNormal3.2-5.3[facility] HospitalComment on above:Performed By: #### BEDG #### [facility] ([facility]) [address] [facility] [place] [address] VIRALP [Catalytic activity/Vol]56 U/XSjkied60-777FwxUcvimr [place] HospitalComment on above:Performed By: #### BEDG #### [facility] ([facility]) [address] [place] [address] VIRALT [Catalytic activity/Vol]11 U/LNormal<=40Pro[facility] HospitalComment on above:Performed By: #### BEDG #### [facility] ([facility]) [address] [facility] [place] [address] VIRAnion gap [Moles/Vol]8 mmol/LNormal5-15Pro[facility] HospitalComment on above:Performed By: #### BEDG #### [facility] ([facility]) [address] [facility] [place] [address] VIRAST [Catalytic activity/Vol]18 U/LNormal<=41Pro[facility] Systemca [facility] HospitalComment on above:Performed By: #### BEDG #### [facility] ([facility]) [address] [facility] [place] [address] VIRBilirubin [Mass/Vol]1.1 mg/dLNormal0.3-1.2[facility] HospitalComment on above:Performed By: #### BEDG #### [facility] ([facility]) [address] [facility] [place] [address] VIRCalcium [Mass/Vol]8.9 mg/dLNormal8.5-10.5[facility] HospitalComment on above:Performed By: #### BEDG #### [facility] ([facility]) [address] [place] [address] VIRChloride [Moles/Vol]99 mmol/YYusboq82-367FcfXkgagk [place] HospitalComment on above:Performed By: #### BEDG #### [facility] ([facility]) [address] [place] [address] VIRCO2 [Moles/Vol]29 mmol/DCkglab80-07TbnQmzygb [facility] Comment on above:Performed By: #### BEDG #### [facility] ([facility]) [address] [place] [address] VIRCreatinine [Mass/Vol]0.78 mg/dLNormal0.60-1.30ProMercer County Community HospitalComment on above:Result Comment: METHOD TRACEABLE TO IDMS STANDARDPerformed By: #### BEDG #### [facility] ([facility]) [address] [place] [address] VIREGFR (CKD-EPI) NON-RACE DEPENDENT>^90Normal>=60ProMercer County Community HospitalComment on above:Result Comment: Reported eGFR is based on the CKD-EPI 2020 equation that does not use a race coefficient.Performed By: #### BEDG #### [facility] ([facility]) [address] [place] [address] VIRGlucose [Mass/Vol]93 mg/vNMrwlqw92-82QifEnsevr [place] HospitalComment on above:Performed By: #### BEDG #### [facility] ([facility]) [address] [place] [address] VIRPotassium [Moles/Vol]4.3 mmol/LNormal3.5-5.0Pro[facility] HospitalComment on above:Performed By: #### BEDG #### [facility] ([facility]) [address] [place] [address] VIRProtein [Mass/Vol]6.0 g/dLNormal6.0-8.0Pro[facility] HospitalComment on above:Performed By: #### BEDG #### [facility] ([facility]) [address] [place] [address] VIRSodium [Moles/Vol]136 mmol/DClxkfv002-690IfbGkshui [place] HospitalComment on above:Performed By: #### BEDG #### [facility] ([facility]) [address] [place] [address] VIRUrea nitrogen [Mass/Vol]17 mg/dLNormal5-27Pro[facility] HospitalComment on above:Performed By: #### BEDG #### [facility] ([facility]) [address] [place] [address] VIRCBC WITH AUTO DIFFERENTIALon 46-40-9072WAQEXADMG ABSOLUTE COUNT (10*3/UL) BY AUTOMATED COUNT0.1 10*3/uLNormal0.0-0.2PWilson Memorial HospitalComment on above:Performed By: #### BEDG #### [facility] ([facility]) [address] [place] [address] VIRBASOPHILS RELATIVE PERCENT BY AUTOMATED COUNT0.7 %Normal [facility] HospitalComment on above:Performed By: #### BEDG #### [facility] ([facility]) [address] [place] [address] VIRCELLAVISION DIFFERENTIAL TYPEAUTOMATED DIFFERENTIALNormal [facility] HospitalComment on above:Performed By: #### BEDG #### [facility] ([facility]) [address] [place] [address] VIREosinophils (Bld) [#/Vol]0.2 10*3/uLNormal0.0-0.4Pro[facility] HospitalComment on above:Performed By: #### BEDG #### [facility] ([facility]) [address] [place] [address] VIREOSINOPHILS RELATIVE PERCENT BY AUTOMATED COUNT2.1 %Normal [facility] HospitalComment on above:Performed By: #### BEDG #### [facility] ([facility]) [address] [place] [address] VIRErythrocyte distribution width (RBC) [Ratio]13.0 %Normal 11.5-15Pro[facility] Systemca [facility] HospitalComment on above:Performed By: #### BEDG #### [facility] ([facility]) [address] [place] [address] VIRHematocrit (Bld) [Volume fraction]38.2 %Heh24-40ChkNwppht [facility] HospitalComment on above:Performed By: #### BEDG #### [facility] ([facility]) [address] [place] [address] VIRHemoglobin (Bld) [Mass/Vol]12.9 g/uHOqz92-39HhhAyhrwy [facility] HospitalComment on above:Performed By: #### BEDG #### [facility] ([facility]) [address] [place] [address] VIRLYMPHOCYTES ABSOLUTE COUNT (10*3/UL) BY AUTOMATED COUNT1.3 10*3/uLNormal1.0-3.5[facility] HospitalComment on above:Performed By: #### BEDG #### [facility] ([facility]) [address] [place] [address] VIRLYMPHOCYTES RELATIVE PERCENT BY AUTOMATED COUNT11.8 %Normal ProMhill crest behavioral health servicesa [facility] HospitalComment on above:Performed By: #### BEDG #### [facility] ([facility]) [address] [place] [address] VIRMCH (RBC) [Entitic mass]29.7 ihSllxbt90-39BmjSvfvbf [facility] HospitalComment on above:Performed By: #### BEDG #### [facility] ([facility]) [address] [place] [address] VIRMCHC (RBC) [Mass/Vol]33.8 g/kDAqpkts29-31MdhCgxznt [place] HospitalComment on above:Performed By: #### BEDG #### [facility] ([facility]) [address] [place] [address] VIRMCV (RBC) [Entitic vol]88 sIGiapdd80-404FtnKmawef [place] HospitalComment on above:Performed By: #### BEDG #### [facility] ([facility]) [address] [place] [address] VIRMONOCYTES ABSOLUTE COUNT (10*3/UL) BY AUTOMATED COUNT1.1 10*3/uLHigh0.0-0.9[facility] HospitalComment on above:Performed By: #### BEDG #### [facility] ([facility]) [address] [place] [address] VIRMONOCYTES RELATIVE PERCENT BY AUTOMATED COUNT10.8 %Normal [facility] HospitalComment on above:Performed By: #### BEDG #### [facility] ([facility]) [address] [place] [address] VIRNEUTROPHILS ABSOLUTE COUNT BY AUTOMATED COUNT7.9 10*3/uLHigh 1.5-6.6[facility] HospitalComment on above:Performed By: #### BEDG #### [facility] ([facility]) [address] [place] [address] VIRNEUTROPHILS RELATIVE PERCENT BY AUTOMATED COUNT74.6 %Normal [facility] HospitalComment on above:Performed By: #### BEDG #### [facility] ([facility]) [address] [place] [address] VIRPlatelet mean volume (Bld) [Entitic vol]7.5 fLNormal7-12 [facility] HospitalComment on above:Performed By: #### BEDG #### [facility] ([facility]) [address] [place] [address] VIRPlatelets (Bld) [#/Vol]289 10*3/jVAdjtin471-363TgaYqmdtg [facility] HospitalComment on above:Performed By: #### BEDG #### [facility] ([facility]) [address] [place] [address] VIRRBC COUNT4.34 X10E12/LNormal4.1-5.7[facility] Hospital Comment on above:Performed By: #### BEDG #### [facility] ([facility]) [address] [place] [address] VIRWBC (Bld) [#/Vol]10.6 10*3/uLNormal4-11Pro[facility] Systemca [facility] HospitalComment on above:Performed By: #### BEDG #### [facility] ([facility]) [address] [place] [address] VIRCOMPREHENSIVE METABOLIC PANELon 30-47-3861Nesqfhi [Mass/Vol] 3.7 g/dLNormal3.2-5.3[facility] HospitalComment on above:Performed By: #### BEDG #### [facility] ([facility]) [address] [place] [address] VIRALP [Catalytic activity/Vol]55 U/QQgwrpa10-868FlyYqztdg [place] HospitalComment on above:Performed By: #### BEDG #### [facility] ([facility]) [address] [place] [address] VIRALT [Catalytic activity/Vol]11 U/LNormal<=40Pro[facility] HospitalComment on above:Performed By: #### BEDG #### [facility] ([facility]) [address] [place] [address] VIRAnion gap [Moles/Vol]9 mmol/LNormal5-15[facility] HospitalComment on above:Performed By: #### BEDG #### [facility] ([facility]) [address] [place] [address] VIRAST [Catalytic activity/Vol]20 U/LNormal<=41Pro[facility] System[facility] HospitalComment on above:Performed By: #### BEDG #### [facility] ([facility]) [address] [place] [address] VIRBilirubin [Mass/Vol]0.9 mg/dLNormal0.3-1.2POhio [facility] HospitalComment on above:Performed By: #### BEDG #### [facility] ([facility]) [address] [place] [address] VIRCalcium [Mass/Vol]8.8 mg/dLNormal8.5-10.5POhio State East Hospital HospitalComment on above:Performed By: #### BEDG #### [facility] ([facility]) [address] [place] [address] VIRChloride [Moles/Vol]99 mmol/YYbxxqu95-065VgzYxmvro [place] HospitalComment on above:Performed By: #### BEDG #### [facility] ([facility]) [address] [place] [address] VIRCO2 [Moles/Vol]29 mmol/GJgreuf42-77ErjFqcajoWilson Memorial Hospital Comment on above:Performed By: #### BEDG #### [facility] ([facility]) [address] [place] [address] VIRCreatinine [Mass/Vol]0.86 mg/dLNormal0.60-1.30Pro[facility] HospitalComment on above:Result Comment: METHOD TRACEABLE TO IDMS STANDARDPerformed By: #### BEDG #### [facility] ([facility]) [address] [facility] [place] [address] VIREGFR (CKD-EPI) NON-RACE DEPENDENT>^90Normal>=60Pro[facility] HospitalComment on above:Result Comment: Reported eGFR is based on the CKD-EPI 2020 equation that does not use a race coefficient.Performed By: #### BEDG #### [facility] ([facility]) [address] [place] [address] VIRGlucose [Mass/Vol]102 mg/sQYkkv05-61BoxBvpyif [place] HospitalComment on above:Performed By: #### BEDG #### [facility] ([facility]) [address] [place] [address] VIRPotassium [Moles/Vol]4.1 mmol/LNormal3.5-5.0Pro[facility] Systemca [facility] HospitalComment on above:Performed By: #### BEDG #### [facility] ([facility]) [address] [place] [address] VIRProtein [Mass/Vol]6.0 g/dLNormal6.0-8.0Pro[facility] HospitalComment on above:Performed By: #### BEDG #### [facility] ([facility]) [address] [place] [address] VIRSodium [Moles/Vol]137 mmol/HVhsxpj435-590EceNttqof [place] HospitalComment on above:Performed By: #### BEDG #### [facility] ([facility]) [address] [place] [address] VIRUrea nitrogen [Mass/Vol]21 mg/dLNormal5-27Pro[facility] HospitalComment on above:Performed By: #### BEDG #### [facility] ([facility]) [address] [place] [address] VIRCBC WITH AUTO DIFFERENTIALon 09-31-8858YTAZELWCN ABSOLUTE COUNT (10*3/UL) BY AUTOMATED COUNT0.0 10*3/uLNormal0.0-0.2[facility] HospitalComment on above:Performed By: #### CBCA #### [facility] ([facility]) [address] [place] [address] VIRBASOPHILS RELATIVE PERCENT BY AUTOMATED COUNT0.1 %Normal [facility] HospitalComment on above:Performed By: #### CBCA #### [facility] ([facility]) [address] [place] [address] VIRCELLAVISION DIFFERENTIAL TYPEAUTOMATED DIFFERENTIALNormal [facility] HospitalComment on above:Performed By: #### CBCA #### [facility] ([facility]) [address] [place] [address] VIREosinophils (Bld) [#/Vol]0.0 10*3/uLNormal0.0-0.4ProAv[facility] Health Systemca [facility] HospitalComment on above:Performed By: #### CBCA #### [facility] ([facility]) [address] [place] [address] VIREOSINOPHILS RELATIVE PERCENT BY AUTOMATED COUNT0.0 %Normal [facility] HospitalComment on above:Performed By: #### CBCA #### [facility] ([facility]) [address] [place] [address] VIRErythrocyte distribution width (RBC) [Ratio]13.4 %Normal 11.5-15Pro[facility] HospitalComment on above:Performed By: #### CBCA #### [facility] ([facility]) [address] [place] [address] VIRHematocrit (Bld) [Volume fraction]39.2 %Cjgvpj10-69DmuIayilr [place] HospitalComment on above:Performed By: #### CBCA #### [facility] ([facility]) [address] [place] [address] VIRHemoglobin (Bld) [Mass/Vol]13.0 g/oJPwzvlp15-24WqkIycgca [place] HospitalComment on above:Performed By: #### CBCA #### [facility] ([facility]) [address] [place] [address] VIRLYMPHOCYTES ABSOLUTE COUNT (10*3/UL) BY AUTOMATED COUNT0.7 10*3/uLLow1.0-3.5[facility] HospitalComment on above:Performed By: #### CBCA #### [facility] ([facility]) [address] [place] [address] VIRLYMPHOCYTES RELATIVE PERCENT BY AUTOMATED COUNT5.3 %Normal [facility] HospitalComment on above:Performed By: #### CBCA #### [facility] ([facility]) [address] [place] [address] VIRMCH (RBC) [Entitic mass]29.1 pqIhbuxa29-49MxsGlxpno [facility] HospitalComment on above:Performed By: #### CBCA #### [facility] ([facility]) [address] [place] [address] VIRMCHC (RBC) [Mass/Vol]33.1 g/zOUorwzu98-34YbcLbforn [facility] HospitalComment on above:Performed By: #### CBCA #### [facility] ([facility]) [address] [place] [address] VIRMCV (RBC) [Entitic vol]88 rMRzzzgs30-710KvaBnprbl [facility] HospitalComment on above:Performed By: #### CBCA #### [facility] ([facility]) [address] [place] [address] VIRMONOCYTES ABSOLUTE COUNT (10*3/UL) BY AUTOMATED COUNT1.3 10*3/uLHigh0.0-0.9[facility] HospitalComment on above:Performed By: #### CBCA #### [facility] ([facility]) [address] [place] [address] VIRMONOCYTES RELATIVE PERCENT BY AUTOMATED COUNT9.7 %Normal [facility] HospitalComment on above:Performed By: #### CBCA #### [facility] ([facility]) [address] [place] [address] VIRNEUTROPHILS ABSOLUTE COUNT BY AUTOMATED COUNT11.2 10*3/uL High1.5-6.6[facility] HospitalComment on above:Performed By: #### CBCA #### [facility] ([facility]) [address] [place] [address] VIRNEUTROPHILS RELATIVE PERCENT BY AUTOMATED COUNT84.9 %Normal [facility] HospitalComment on above:Performed By: #### CBCA #### [facility] ([facility]) [address] [place] [address] VIRPlatelet mean volume (Bld) [Entitic vol]7.7 fLNormal7-[address] [facility] HospitalComment on above:Performed By: #### CBCA #### [facility] ([facility]) [address] [place] [address] VIRPlatelets (Bld) [#/Vol]337 10*3/lUYbsqfp832-225GhoCoplir [place] HospitalComment on above:Performed By: #### CBCA #### [facility] ([facility]) [address] [place] [address] VIRRBC COUNT4.46 X10E12/LNormal4.1-5.7[facility] Hospital Comment on above:Performed By: #### CBCA #### [facility] ([facility]) [address] [place] [address] VIRWBC (Bld) [#/Vol]13.3 10*3/uLHigh4-11ProMercer County Community HospitalComment on above:Performed By: #### CBCA #### [facility] ([facility]) [address] [place] [address] VIRCOMPREHENSIVE METABOLIC PANELon 57-67-2962Filaeoq [Mass/Vol] 3.9 g/dLNormal3.2-5.3[facility] HospitalComment on above:Performed By: #### CMP #### [facility] ([facility]) [address] [place] [address] VIRALP [Catalytic activity/Vol]58 U/YGgaqxl47-535WnrLxcpsv [place] HospitalComment on above:Performed By: #### CMP #### [facility] ([facility]) [address] [place] [address] VIRALT [Catalytic activity/Vol]13 U/LNormal<=40[facility] HospitalComment on above:Performed By: #### CMP #### [facility] ([facility]) [address] [place] [address] VIRAnion gap [Moles/Vol]7 mmol/LNormal5-15[facility] HospitalComment on above:Performed By: #### CMP #### [facility] ([facility]) [address] [place] [address] VIRAST [Catalytic activity/Vol]19 U/LNormal<=41[facility] HospitalComment on above:Performed By: #### CMP #### [facility] ([facility]) [address] [place] [address] VIRBilirubin [Mass/Vol]0.8 mg/dLNormal0.3-1.2[facility] HospitalComment on above:Performed By: #### CMP #### [facility] ([facility]) [address] [place] [address] VIRCalcium [Mass/Vol]9.0 mg/dLNormal8.5-10.5[facility] HospitalComment on above:Performed By: #### CMP #### [facility] ([facility]) [address] [place] [address] VIRChloride [Moles/Vol]102 mmol/WNlpcqy64-539TtuSzxqfm [facility] HospitalComment on above:Performed By: #### CMP #### [facility] ([facility]) [address] [place] [address] VIRCO2 [Moles/Vol]28 mmol/BUcsgfd12-19ClnNtjkfb [facility] Comment on above:Performed By: #### CMP #### [facility] ([facility]) [address] [place] [address] VIRCreatinine [Mass/Vol]0.78 mg/dLNormal0.60-1.30[facility] HospitalComment on above:Result Comment: METHOD TRACEABLE TO IDMS STANDARDPerformed By: #### CMP #### [facility] ([facility]) [address] [place] [address] VIREGFR (CKD-EPI) NON-RACE DEPENDENT>^90Normal>=60[facility] HospitalComment on above:Result Comment: Reported eGFR is based on the CKD-EPI 2020 equation that does not use a race coefficient.Performed By: #### CMP #### [facility] ([facility]) [address] [place] [address] VIRGlucose [Mass/Vol]90 mg/xCQugmpe74-63KpbKdcjhq [facility] HospitalComment on above:Performed By: #### CMP #### [facility] ([facility]) [address] [place] [address] VIRPotassium [Moles/Vol]4.3 mmol/LNormal3.5-5.0[facility] HospitalComment on above:Performed By: #### CMP #### [facility] ([facility]) [address] [place] [address] VIRProtein [Mass/Vol]6.5 g/dLNormal6.0-8.0[facility] HospitalComment on above:Performed By: #### CMP #### [facility] ([facility]) [address] [place] [address] VIRSodium [Moles/Vol]137 mmol/PGxoqos121-516YhmEmmjda Theodore HospitalComment on above:Performed By: #### CMP #### [facility] ([facility]) [address] [place] [address] VIRUrea nitrogen [Mass/Vol]20 mg/dLNormal5-27[facility] HospitalComment on above:Performed By: #### CMP #### [facility] ([facility]) [address] [place] [address] VIRFL SWALLOW MOTILITY FUNCTIONon [id number] SWALLOW MOTILITY FUNCTIONFL SWALLOW MOTILITY FUNCTION FL [...] by Denny Parekh MD on 07/08/2025 1:55 PMNormalCleveland Clinic Medina HospitalLIPID PROFILEon [id number] [Mass/Vol]111 mg/pYGxi762-018 [facility] HospitalComment on above:Order Comment: fastingPerformed By: #### BEDG #### [facility] ([facility]) [address] [place] [address] VIRCholesterol in HDL [Mass/Vol]48 mg/dLNormal>39[facility] Medina HospitalComment on above:Order Comment: fastingResult Comment: HDL <40 mg/dL - High Risk HDL > or = 40mg/dL- Desirable HDL >60 mg/dL - Negative RiskPerformed By: #### BEDG #### [facility] ([facility]) [address] [place] [address] VIRCholesterol in LDL [Mass/Vol]51 mg/dLNormal<130[facility] Med[facility] HospitalComment on above:Order Comment: fastingResult Comment: LDL <100 mg/dL - Desirable LDL >160 mg/dL - High RiskPerformed By: #### BEDG #### [facility] ([facility]) [address] [place] [address] VIRCHOLESTEROL:HDL2.4Jazrum3.0-5.0Pro[facility] Comment on above:Order Comment: fastingPerformed By: #### BEDG #### [facility] ([facility]) [address] [place] [address] VIRTriglyceride [Mass/Vol]59 mg/nDUzjtoo35-849LfiEuoycm [place] HospitalComment on above:Order Comment: fastingPerformed By: #### BEDG #### [facility] ([facility]) [address] [place] [address] VIRVERY LOW MYGZEZHUZGT60 mg/dLNormal0-30ProMercer County Community HospitalComment on above:Order Comment: fastingPerformed By: #### BEDG #### [facility] ([facility]) [address] [place] [address] VIRB-TYPE NATRIURETIC PEPTIDEon 18-64-1441Lzxdxogvwgx peptide B (Bld) [Mass/Vol]45 pg/mLNormal<=100ProMercer County Community HospitalComment on above: Performed By: #### BNP #### [facility] ([facility]) [address] [place] [address] VIRBEDSIDE GLUCOSEon 24-63-6251Svmapil [Mass/Vol]117 mg/dLHigh 65-99ProMercer County Community HospitalComment on above:Performed By: #### BEDG #### [facility] ([facility]) [address] [place] [address] VIRCBC WITH AUTO DIFFERENTIALon 14-97-5386SKIBDHNWP ABSOLUTE COUNT (10*3/UL) BY AUTOMATED COUNT0.0 10*3/uLNormal0.0-0.2ProMedLakeHealth TriPoint Medical CenterComment on above:Performed By: #### CBCA #### [facility] ([facility]) [address] [place] [address] VIRBASOPHILS RELATIVE PERCENT BY AUTOMATED COUNT0.3 %Normal [facility] HospitalComment on above:Performed By: #### CBCA #### [facility] ([facility]) [address] [place] [address] VIRCELLAVISION DIFFERENTIAL TYPEAUTOMATED DIFFERENTIALNormal [facility] HospitalComment on above:Performed By: #### CBCA #### [facility] ([facility]) [address] [place] [address] VIREosinophils (Bld) [#/Vol]0.0 10*3/uLNormal0.0-0.4ProAvita Health Systemca Theodore HospitalComment on above:Performed By: #### CBCA #### [facility] ([facility]) [address] [place] [address] VIREOSINOPHILS RELATIVE PERCENT BY AUTOMATED COUNT0.1 %Normal [facility] HospitalComment on above:Performed By: #### CBCA #### [facility] ([facility]) [address] [place] [address] VIRErythrocyte distribution width (RBC) [Ratio]12.8 %Normal 11.5-15ProAvita Health Systemca Theodore HospitalComment on above:Performed By: #### CBCA #### [facility] ([facility]) [address] [place] [address] VIRHematocrit (Bld) [Volume fraction]40.0 %Upuxtm65-23GlmAxtptn [place] HospitalComment on above:Performed By: #### CBCA #### [facility] ([facility]) [address] [place] [address] VIRHemoglobin (Bld) [Mass/Vol]13.3 g/jVIhsccj93-27JifWmcqqd [place] HospitalComment on above:Performed By: #### CBCA #### [facility] ([facility]) [address] [place] [address] VIRLYMPHOCYTES ABSOLUTE COUNT (10*3/UL) BY AUTOMATED COUNT0.2 10*3/uLLow1.0-3.5[facility] HospitalComment on above:Performed By: #### CBCA #### [facility] ([facility]) [address] [place] [address] VIRLYMPHOCYTES RELATIVE PERCENT BY AUTOMATED COUNT2.4 %Normal [facility]er[facility] HospitalComment on above:Performed By: #### CBCA #### [facility] ([facility]) [address] [place] [address] VIRMCH (RBC) [Entitic mass]29.4 qmQgikga30-21NoiGwbccp Theodore HospitalComment on above:Performed By: #### CBCA #### [facility] ([facility]) [address] [place] [address] VIRMCHC (RBC) [Mass/Vol]33.4 g/uTLdyjzt58-40AdwUdhzwb Theodore HospitalComment on above:Performed By: #### CBCA #### [facility] ([facility]) [address] [place] [address] VIRMCV (RBC) [Entitic vol]88 iQLcogcf50-098RulVqdtdc Theodore HospitalComment on above:Performed By: #### CBCA #### [facility] ([facility]) [address] [place] [address] VIRMONOCYTES ABSOLUTE COUNT (10*3/UL) BY AUTOMATED COUNT0.1 10*3/uLNormal0.0-0.9ProW[facility] HospitalComment on above:Performed By: #### CBCA #### [facility] ([facility]) [address] [place] [address] VIRMONOCYTES RELATIVE PERCENT BY AUTOMATED COUNT0.9 %Normal [facility] HospitalComment on above:Performed By: #### CBCA #### [facility] ([facility]) [address] [place] [address] VIRNEUTROPHILS ABSOLUTE COUNT BY AUTOMATED COUNT9.2 10*3/uLHigh 1.5-6.6ProAvita Health Systemca Theodore HospitalComment on above:Performed By: #### CBCA #### [facility] ([facility]) [address] [place] [address] VIRNEUTROPHILS RELATIVE PERCENT BY AUTOMATED COUNT96.3 %Normal [facility] HospitalComment on above:Performed By: #### CBCA #### [facility] ([facility]) [address] [place] [address] VIRPlatelet mean volume (Bld) [Entitic vol]7.5 fLNormal7-[address] [facility] HospitalComment on above:Performed By: #### CBCA #### [facility] ([facility]) [address] [place] [address] VIRPlatelets (Bld) [#/Vol]314 10*3/qNVtahzy204-643DeiLjnokt Theodore HospitalComment on above:Performed By: #### CBCA #### [facility] ([facility]) [address] [place] [address] VIRRBC COUNT4.53 X10E12/LNormal4.1-5.7ProW[facility] Hospital Comment on above:Performed By: #### CBCA #### [facility] ([facility]) [address] [place] [address] VIRWBC (Bld) [#/Vol]9.5 10*3/uLNormal4-11ProW[facility] HospitalComment on above:Performed By: #### CBCA #### [facility] ([facility]) [address] [place] [address] VIRCOMPREHENSIVE METABOLIC PANELon 86-74-9329Rjyqcqv [Mass/Vol] 4.0 g/dLNormal3.2-5.3[facility] HospitalComment on above:Performed By: #### CMP #### [facility] ([facility]) [address] [place] [address] VIRALP [Catalytic activity/Vol]63 U/JJksawo05-690GbfXqvuig Theodore HospitalComment on above:Performed By: #### CMP #### [facility] ([facility]) [address] [place] [address] VIRALT [Catalytic activity/Vol]14 U/LNormal<=40[facility] HospitalComment on above:Performed By: #### CMP #### [facility] ([facility]) [address] [place] [address] VIRAnion gap [Moles/Vol]7 mmol/LNormal5-15[facility] HospitalComment on above:Performed By: #### CMP #### [facility] ([facility]) [address] [place] [address] VIRAST [Catalytic activity/Vol]16 U/LNormal<=41[facility] HospitalComment on above:Performed By: #### CMP #### [facility] ([facility]) [address] [place] [address] VIRBilirubin [Mass/Vol]0.7 mg/dLNormal0.3-1.2ProMedMagruder Memorial Hospital HospitalComment on above:Performed By: #### CMP #### [facility] ([facility]) [address] [place] [address] VIRCalcium [Mass/Vol]8.8 mg/dLNormal8.5-10.5ProMedMagruder Memorial Hospital HospitalComment on above:Performed By: #### CMP #### [facility] ([facility]) [address] [place] [address] VIRChloride [Moles/Vol]100 mmol/XWkeyld19-025KvcExprze Theodore HospitalComment on above:Performed By: #### CMP #### [facility] ([facility]) [address] [place] [address] VIRCO2 [Moles/Vol]30 mmol/JEywuzr09-67CijCxbleu [facility] Comment on above:Performed By: #### CMP #### [facility] ([facility]) [address] [place] [address] VIRCreatinine [Mass/Vol]0.92 mg/dLNormal0.60-1.30ProW[facility] HospitalComment on above:Result Comment: METHOD TRACEABLE TO IDMS STANDARDPerformed By: #### CMP #### [facility] ([facility]) [address] [place] [address] VIREGFR (CKD-EPI) NON-RACE DEPENDENT>^90Normal>=60ProW[facility] HospitalComment on above:Result Comment: Reported eGFR is based on the CKD-EPI 2020 equation that does not use a race coefficient.Performed By: #### CMP #### [facility] ([facility]) [address] [place] [address] VIRGlucose [Mass/Vol]124 mg/nMJjcn34-54UqyHodedu [place] HospitalComment on above:Performed By: #### CMP #### [facility] ([facility]) [address] [place] [address] VIRPotassium [Moles/Vol]3.9 mmol/LNormal3.5-5.0ProW[facility] HospitalComment on above:Performed By: #### CMP #### [facility] ([facility]) [address] [place] [address] VIRProtein [Mass/Vol]6.6 g/dLNormal6.0-8.0ProW[facility] HospitalComment on above:Performed By: #### CMP #### [facility] ([facility]) [address] [place] [address] VIRSodium [Moles/Vol]137 mmol/GAgtwas051-066NzxEolegx [place] HospitalComment on above:Performed By: #### CMP #### [facility] ([facility]) [address] [place] [address] VIRUrea nitrogen [Mass/Vol]17 mg/dLNormal5-27ProMercer County Community HospitalComment on above:Performed By: #### CMP #### [facility] ([facility]) [address] [place] [address] VIRCT CEREBRAL PERF ANALYSISon 58-15-0401WP CEREBRAL PERF ANALYSISCT CEREBRAL PERF ANALYSIS CT [...] by Kishore Thomas MD on 07/07/2025 2:47 PMNormalProMercer County Community HospitalHEMOGLOBIN A1Con 13-02-3961Knaqnzx [Mass/Vol]117 mg/dLNormalProMercer County Community HospitalComment on above:Performed By: #### HA1C #### [facility] ([facility]) [address] [place] [address] DEPBoT0m (Bld) [Mass fraction]5.7 %High4.4-5.6ProMercer County Community HospitalComment on above:Result Comment: ADA Guidelines Result HgbA1c Normal : less than 5.7 % Prediabetes : 5.7 % to 6.4 % Diabetes : > 6.4 % Use with caution in patients with abnormal hemoglobin variants as the half-life of red blood cells and in vivo glycation rates are affected.Performed By: #### HA1C #### [facility] ([facility]) [address] [place] [address] VIRMR BRAIN WO CONTon 81-53-4540EF BRAIN WO CONTMR BRAIN WO CONT MRI [...] by Mich Diaz MD on 07/07/2025 9:12 [facility] VWon 73-00-5779RQ CHEST 1 VWXR CHEST 1 VW Single view chest History: Difficulty breathing, shortness of breath Comparison: 03/08/2022 Impression: No acute pulmonary process. No pneumothorax or pleural effusion. Nonenlarged heart. Finalized by Mark Anthony MD on 07/07/2025 7:20 [facility] 2Von 74-22[place], [place] [address] XRay Report Signed Patient: SAM CARRASCO MR#: [id number] : 1960 Acct:[id number] Age/Sex: 64 / M ADM Date: 11/16/24 Loc: RAD Attending Dr: Azul Quezada NP Ordering Physician: Azul Quezada NP Date of Service: 11/16/24 Procedure(s): XR chest 2V Accession Number(s): [id number] cc: Azul Quezada NP [address] [address] Patient Name: SAM CARRASCO MRN: [id number] date: 1960 Sex: M Assigned Patient Location: RAD Current Patient Location: RAD Accession/Order Number: [id number] Exam Date: 11/16/2024 19:23 Report Date: 11/16/2024 [...] M.D.11/16/2024 7:24 PM Dictation Location: [place] [address] Electronically authenticated by: [id number] Y Date: 11/16/2024 19:24 Dictated By: Carlos Knight M.D. Signed By: 11/16/241925 DD/ 23 TD/TT: Cms Expert:JACKELYNHRadiology, Radiologist, - 11/16/2024 [address] [place] [id number] XRay Report Signed Patient: SAM CARRASCO MR#: [id number] : 1960 Acct:[id number] Age/Sex: 64 / M ADM Date: 11/16/24 Loc: RAD Attending Dr: Azul Quezada NP Ordering Physician: Azul Quezada NP Date of Service: 11/16/24 Procedure(s): XR chest 2V Accession Number(s): [id number] cc: Azul Quezada NP The [place] [id number] Patient Name: SAM CARRASCO MRN: [id number] date: 1960 Sex: M Assigned Patient Location: RAD Current Patient Location: RAD Accession/Order Number: [id number] Exam Date: 11/16/2024 19:23 Report Date: 11/16/2024 [...] M.D.11/16/2024 7:24 PM Dictation Location: [place] [address] Electronically authenticated by: [id number] Y Date: 11/16/2024 19:24 Dictated By: Carlos Knight M.D. Signed By: 11/16/241925 DD/ 23 TD/TT: Cms Expert: KAELYN HealthcareRadiology Study observation (narrative)[facility] HealthcareXR CHEST 2V Ordered By: Radiologist Radiology on 12-17-2274ZJQO Healthcare Work Phone: aLL HEMOGLOBINon 54-33-5780Iuvejbbkfj (Bld) [Mass/Vol] 14.8 g/dL14.0 - 18.0 g/dLNONM HealthcareCLINISYNCNOMS HealthcareCT LUNG SCREENING LOW DOSEon 13-99-9187K[address] [address] [address] Scan Report Signed Patient: SAM CARRASCO MR#: [id number] : 1960 Acct:[id number] Age/Sex: 64 / M ADM Date: 09/06/24 Loc: CT Attending Dr: Jameson White D.O. Ordering Physician: Jameson White D.O. Date of Service: 09/06/24 Procedure(s): CT lung screening low-dose Accession Number(s): [id number] cc: Azul Quezada NP [address] [address] Patient Name: SAM CARRASCO MRN: [id number] date: 1960 Sex: M Assigned Patient Location: CT Current Patient Location: Accession/Order Number: [id number] Exam Date: 09/06/2024 14:22 Report Date: 09/08/2024 [...] M.D. Signed By: 09/08/24 0551 DD/ TD/TT: Cms Expert:TBHRadiology, Radiologist, - 09/08/2024 [place] [address] CT Scan Report Signed Patient: SAM CARRASCO MR#: [id number] : 1960 Acct:[id number] Age/Sex: 64 / M ADM Date: 09/06/24 Loc: CT Attending Dr: Jameson White D.O. Ordering Physician: Jameson White D.O. Date of Service: 09/06/24 Procedure(s): CT lung screening low-dose Accession Number(s): [id number] cc: Azul Quezada NP The [address] [address] Patient Name: SAM CARRASCO MRN: [id number] date: 1960 Sex: M Assigned Patient Location: CT Current Patient Location: Accession/Order Number: [id number] Exam Date: 09/06/2024 14:22 Report Date: 09/08/2024 [...] Olson M.D. Signed By: 09/08/2451 DD/ TD/TT: Cms Expert: [facility] HealthcareRadiology Study observation (narrative)[facility] HealthcareCT LUNG SCREENING LOW DOSEOrdered By: Radiologist Radiology on 40-39-7880IU[employer] Work Phone: PSA TOTAL+% FREEon 09-07-2024% FREE PSA26.0 %.[facility] HealthcareComment on above:The table below lists [...] any other population of men. Performed at: [employer] [id number] Sales [employer] Marketing Professional: Mich Orozco PhD, Phone: [phone] Prostate specific Ag [Mass/Vol]1.0 ng/mL0.0 - 4.0 ng/mLNNORTHWEST CENTER FOR BEHAVIORAL [facility]ALTH [facility]OD[facility] HealthcareComment on above:Darlin ECLIA methodology. According to the [place] [employer], Serum PSA should decrease and [...] FREE0.26 ng/mLN/ANOMS HealthcareComment on above:Darlin ECLIA methodology. CLINISYBlount Memorial HospitalALL CBC WITH AUTO DIFFon 06-56-3873BWJMJJBFG ABSOLUTE AUTO0.1NOMS HealthcareBasophils/100 WBC (Bld)0.9 %0.2 - 2.0 %[facility] Eosinophils/100 WBC (Bld)0.1 %Low0.9 - 7.0 %[facility] HospitalErythrocyte distribution width (RBC) [Ratio]12.8 %11.0 - 15.0 %[facility] HospitalHematocrit (Bld) [Volume fraction]43.1 %42.0 - 54.0 %[facility] HospitalHemoglobin (Bld) [Mass/Vol]13.9 g/dLLow14.0 - 18.0 g/dLSalem Memorial District HospitalIMMATURE GRANULOCYTES ABS AUTO0.03NOFreeman Neosho HospitalImmature granulocytes/100 WBC (Bld)0.3 %0.0 - 0.5 %[facility] HospitalInterpretation and review of laboratory resultsAbnormalSalem Memorial District Hospital LYMPHOCYTES ABSOLUTE AUTO1.2NOMS [facility] Medical CenterLymphocytes/100 WBC (Bld)14 %Low20.5 - 60.0 %[facility] ServicesH (RBC) [Entitic mass]30.3 pg25.9 - 34.0 pgSaint Francis Hospital & Health ServicesHC (RBC) [Mass/Vol]32.3 g/dL29.9 - 35.2 g/dLSaint Francis Hospital & Health ServicesV (RBC) [Entitic vol]94.1 mLVqku36.0 - 94.0 fLSalem Memorial District HospitalMONOCYTES ABSOLUTE AUTO0.9 HighSALT LAKE BE[facility]AVIORAL HEALTH [facility]ITAL HealthcareMonocytes/100 WBC (Bld)9.7 %1.7 - 12.0 %[facility] NEUTROPHILS ABSOLUTE AUTO6.5NOFreeman Neosho HospitalNeutrophils/100 WBC (Bld)75 %43.0 - 75.0 %[facility] HospitalPlatelet mean volume (Bld) [Entitic vol]10.1 fL9.5 - 13.5 fLNOMS HealthcareTBH EO #0NOMS HealthcareTBH [id number] HealthcareTBH RBC4.58Low NOMS HealthcareTBH WBC8.7NOMS HealthcareCLINISYNCNOMS HealthcareTBH UA (CLEAN/CATCH) MICROSCOPIC IF INDICATEon 60-59-6837BWTJNDWKB URINENegative NEGATIVENOMS HealthcareBLOOD URINENegativeNEGATIVENOMS HealthcareClarity (U) CLEARCLEARNOMS HealthcareColor (U)LT. YELLOWYELLOWNOMS HealthcareGLUCOSE URINE UANegativeNEGATIVE mg/dLNONM HealthcareInterpretation and review of laboratory resultsAbnormalNOMS HealthcareKetones Ql (U)NegativeNEGATIVE mg/dLNOMS HealthcareLeukocyte esterase Test strip Ql (U)SMALLAbnormalNEGATIVENOMS HealthcareNITRITE URINENegativeNEGATIVENOMS HealthcarepH (U)6.0 [pH]5.0 - 9.0 NOMS HealthcarePROTEIN URINENegativeNEG/TRACE mg/dLNOMS HealthcareSPECIFIC GRAVITY URINE1.0151.005 - 1.025NONM HealthcareURINE MICROSCOPIC INDICATEDYESNOMS HealthcareUROBILINOGEN URINE0.2 EU/dL0.2 - 1.0 EU/dLNONM HealthcareCLINISYNC NOMS HealthcareBNPon 91-18-6845Iwcrmgjbbdz peptide B (Bld) [Mass/Vol]42.0 pg/mL Normal<=900.0The [facility] SystemComment on above:Performed By: #### INFLUAB #### [facility] [address] [place] [address] Dr. Tom Mendez AUTO DIFFon 82-24-7205BGIO #0.1 103/ulNormal0.0-0.1The [facility] Health SystemComment on above:Performed By: #### CBC #### [facility] [address] [address] [address] Tom Santiagosophils/100 WBC (Bld)0.8 %Normal0.2-2.0The [facility] Comment on above:Performed By: #### CBC #### [facility] [address] [place] [address] [address] Santos ChangEPrimo #0.0 103/ulNormal0.0-0.7The Westminster HospitalComment on above: Performed By: #### CBC #### [facility] [address] [place] [address] Dr. Tom Mannosinophils/100 WBC (Bld)0.0 %Critically low0.9-7.0The [facility] SystemComment on above:Performed By: #### CBC #### [facility] [address] [place] [address] Dr. Tom Mannrythrocyte distribution width (RBC) [Ratio]12.4 %Ctfldb86.0-15.0 The [facility] SystemComment on above:Performed By: #### CBC #### [facility] [address] [place] [address] Dr. Tom DotsonHematocrit (Bld) [Volume fraction]43.6 %Lfbmca01.0-54.0The [facility] SystemComment on above:Performed By: #### CBC #### [facility] [address] [place] [address] Dr. Tom DotsonHemoglobin (Bld) [Mass/Vol]14.3 g/kNIndryb80.0-18.0The [facility] SystemComment on above:Performed By: #### CBC #### [facility] [address] [place] [address] Dr. Tom Salgado #0.02 10e3/ulNormal0.00-0.03The [facility] SystemComment on above:Performed By: #### CBC #### [facility] [address] [place] [address] Dr. Tom Salgado %0.3 %Normal0.0-0.5The [facility] SystemComment on above: Performed By: #### CBC #### [facility] [address] [place] [address] Dr. Tom MenjivarH #1.4 103/ulNormal1.2-3.8The [facility] SystemComment on above:Performed By: #### CBC #### [facility] [address] [place] [address] Dr. Tom Lugomphocytes/100 WBC (Bld)17.3 %Critically low20.5-60.0The [facility] SystemComment on above:Performed By: #### CBC #### [facility] [address] [place] [address] Dr. Tom Tang DIFF REQNONormalThe [facility] SystemComment on above: Performed By: #### CBC #### [facility] [address] [place] [address] Dr. Tom Anderson (RBC) [Entitic mass]29.8 hlGuorvf22.9-34.0The [facility] SystemComment on above:Performed By: #### CBC #### [facility] [address] [place] [address] Dr. Tom Anderson (RBC) [Mass/Vol]32.8 g/fGIzfyjm00.9-35.2The [facility] SystemComment on above:Performed By: #### CBC #### [facility] [address] [place] [address] Dr. Tom Briggs (RBC) [Entitic vol]90.8 kJWsakmo74.0-94.0The [facility] SystemComment on above:Performed By: #### CBC #### [facility] [address] [place] [address] Dr. Tom Baires #0.7 103/ulNormal0.3-0.8The [facility] SystemComment on above:Performed By: #### CBC #### [facility] [address] [place] [address] Dr. Tom Phanocytes/100 WBC (Bld)9.4 %Normal1.7-12.0The [facility] Comment on above:Performed By: #### CBC #### [facility] [address] [place] [address] Dr. Tom Kevin #5.7 103/ulNormal1.4-6.5The [facility] SystemComment on above:Performed By: #### CBC #### [facility] [address] [place] [address] Dr. Tom Watermanophils/100 WBC (Bld)72.2 %Wbarqy84.0-75.0The [facility] SystemComment on above:Performed By: #### CBC #### [facility] [address] [place] [address] Dr. Tom Monroy mean volume (Bld) [Entitic vol]9.6 fLNormal9.5-13.5The [facility] SystemComment on above:Performed By: #### CBC #### [facility] [address] [place] [address] Dr. Tom PoeT331 103/owLrwbfi058-477Tjy [facility] SystemComment on above: Performed By: #### CBC #### [facility] [address] [place] [address] Dr. Tom DotsonRBC4.80 106/ulNormal4.70-6.10The [facility] SystemComment on above:Performed By: #### CBC #### [facility] [address] [place] [address] Dr. Tom DotsonWBC7.8 103/ulNormal4.0-11.0The [facility] SystemComment on above: Performed By: #### CBC #### [facility] [address] [place] [address] Dr. Tom Pro BLOODon 64-83-4441Aodudmgwkdi examination of blood, cultureCulture Observations: NO GROWTH AT 5 DAYS.NormalThe [facility] Health SystemComment on above:Performed By: #### INFLUAB #### [facility] [address] [place] [address] Dr. Tom DotsonMicroscopic examination of blood, cultureCulture Observations: NO GROWTH AT 5 DAYS.NormalThe [facility] SystemComment on above:Performed By: #### INFLUAB #### [facility] [address] [place] [address] Dr. Tom DotsonCovid-19 PCR (CVDTB)on 26-56-8071EJNF-CoV-2 (COVID-19) RNA OLGA+probe Ql (Unsp spec)Not detectedNormalNOT DETECTEDThe [facility] Comment on above:Result Comment: When diagnostic testing [...] for this test is supported by the [place] [employer] and Human Service's declaration that [...] longer be used).Performed By: #### CVDTBH #### [facility] [address] [place] [address] Dr. Tom Carvalho AND B AGon 34-96-3964JWHNFCUXBTQHVNewark Hospital on above:Result Comment: Negative for Flu A protein angiten. Infection due to Flu A cannot be ruled out. FluA angiten in the sample may be below the detection limit of the test.Performed By: #### INFLUAB #### [facility] [address] [place] [address] Dr. Tom LagosNEGPABLO [facility] on above: Result Comment: Negative for Flu B protein antigen. Infection due to Flu B cannot be ruled out. FluB antigen in the sample may be below the detection limit of the test.Performed By: #### INFLUAB #### [facility] [address] [place] [address] Dr. Tom Carvalho AGNegativeNormalNEGATIVE SEE COMMENTThe [facility] on above:Performed By: #### INFLUAB #### [facility] [address] [place] [address] Dr. Tom Chavez AGNegativeNormalNEGATIVE SEE COMMENTThe Westminster HospitalComment on above:Performed By: #### INFLUAB #### [facility] [address] [address] [address] Tom DotsonLACTATE/LACTIC ACIDon [id number] [Moles/Vol]0.7 mmol/L Normal0.4-1.9The [facility] SystemComment on above:Performed By: #### LACT #### [facility] [address] [address] [address] Tom DotsonPROF CHEM 8 (BAS METB)on [id number] gap [Moles/Vol]9.3 mmol/LNormalThe [facility] SystemComment on above:Performed By: #### HSTROPN, BMP, BNP #### [facility] [address] [place] [address] Dr. Tom DotsonCalcium [Mass/Vol]8.8 mg/dLNormal8.5-10.1The [facility] Comment on above:Performed By: #### HSTROPN, BMP, BNP #### [facility] [address] [place] [address] Dr. Tom DotsonChloride [Moles/Vol]103 mmol/SNqymnu70-074Vxo [facility] Comment on above:Performed By: #### HSTROPN, BMP, BNP #### [facility] [address] [place] [address] Dr. Tom DotsonCO2 [Moles/Vol]31.1 mmol/AHvnxyh01.0-32.0The [facility] Comment on above:Performed By: #### HSTROPN, BMP, BNP #### [facility] [address] [place] [address] Dr. Tom DotsonCreatinine [Mass/Vol]0.77 mg/dLNormal0.70-1.30The [facility] SystemComment on above:Performed By: #### HSTROPN, BMP, BNP #### [facility] [address] [place] [address] Dr. Santos ChangEGFR-AF FINNISH>60Normal>=60The [facility] SystemComment on above:Performed By: #### HSTROPN, BMP, BNP #### [facility] [address] [address] [address] Tom MannGFR-NON AF FINNISH>60Normal>=60The [facility] SystemComment on above:Performed By: #### HSTROPN, BMP, BNP #### [facility] [address] [address] [address] Tom DotsonGlucose [Mass/Vol]98 mg/lALdssvx84-151HkhLakehealth Tripoint Medical Center Comment on above:Performed By: #### HSTROPN, BMP, BNP #### [facility] [address] [place] [address] Dr. Tom DotsonPotassium [Moles/Vol]4.4 mmol/LNormal3.5-5.1[facility] Comment on above:Performed By: #### HSTROPN, BMP, BNP #### [facility] [address] [place] [address] Dr. Tom Kesslerdium [Moles/Vol]139 mmol/MLhxmle363-594IvfLakehealth Tripoint Medical Center Comment on above:Performed By: #### HSTROPN, BMP, BNP #### [facility] [address] [address] [address] Tom DotsonUrea nitrogen [Mass/Vol]13.0 mg/dLNormal7.0-18.0The [facility] SystemComment on above:Performed By: #### HSTROPN, BMP, BNP #### [facility] [address] [place] [address] Dr. Tom Reed nitrogen/Creatinine [Mass ratio]16.9 mg/mgNormalThe [facility] SystemComment on above:Performed By: #### HSTROPN, BMP, BNP #### [facility] [address] [place] [address] Dr. Tom Stover, HIGH SENSITIVITYon 76-48-7372MDTPFZ6.4 pg/mLNormal 4.0-76.1[facility] on above:Result Comment: CUT-OFF POINTS HAVE BEEN ESTABLISHED BASED ON THE FOURTH UNIVERSAL DEFINITIONS OF MYOCARDIAL INFARCTION. THE UPPER REFERENCE LIMIT (URL) OF TROPONIN, DEFINED THE 99TH PERCENTILE OF cTnI DISTRIBUTION IN A REFERENCE POPULATION, HAS BEEN CONFIRMED THE DECISION THRESHOLD FOR [place] DIAGNOSIS.Performed By: #### INFLUAB #### [facility] [address] [place] [address] Dr. Tom DotsonXR CHEST 1 Von [id number] CHEST 1 VEXAMINATION: XR CHEST 1 V [...] Electronically authenticated by: YARIEL OLSON Date: 2022-09-25 10:55NormalThCleveland Clinic Children's Hospital for RehabilitationASPERGILLUS AB, QUANTITATIVE DIDon [id number] flavus NegativeNormalNeg:<1:1[facility]point Medical CenterComment on above:Performed By: #### ASPDID #### [facility] [address] [place] [address] Dr. Tom Garcias fumigatusNegativeNormalNeg:<1:1[facility] Comment on above:Performed By: #### ASPDID #### [facility] [address] [address] [address] Tom Garcias nigerNegativeNormalNeg:<1:1[facility] Comment on above:Performed By: #### ASPDID #### [facility] [address] [place] [address] Dr. Tom DotsonANTI NEUTROPHIL CYTOPLASMIC AB (ANCA) PRon [id number]-MPO Antibodies<0.8Udjwzg7.0-0.9[facility] Medical CenterComment on above:Result Comment: Performed at: BNPerformed By: #### CBC #### [facility] [address] [place] [address] Dr. Tom DotsonAnti-PR3 Antibodies<0.8Vlolcm4.0-0.9[facility] Medical CenterComment on above:Result Comment: Performed at: BNPerformed By: #### CBC #### [facility] [address] [place] [address] Dr. Tom DotsonAtypical pANCA<1:20NormalNeg:<1:20ThCleveland Clinic Children's Hospital for RehabilitationComment on above:Result Comment: The atypical pANCA pattern has been observed in a significant percentage of patients with ulcerative colitis, primary sclerosing cholangitis and autoimmune hepatitis. Performed at: CBPerformed By: #### CBC #### [facility] [address] [place] [address] Dr. Tom DotsonCytoplasmic (C-ANCA)<1:20NormalNeg:<1:20ThCleveland Clinic Children's Hospital for Rehabilitation Comment on above:Result Comment: Performed at: CBPerformed By: #### CBC #### [facility] [address] [place] [address] Dr. Tom DotsonPerinuclear (P-ANCA)<1:20NormalNeg:<1:20ThCleveland Clinic Children's Hospital for Rehabilitation Comment on above:Result Comment: The presence of positive fluorescence exhibiting P-ANCA or C-ANCA patterns alone is not specific for the diagnosis of Nevin's Granulomatosis (WG) or microscopic polyangiitis. Decisions about treatment should not be based solely on ANCA IFA results. The International ANCA [employer] Consensus recommends follow up testing of positive sera with both WA-3 and MPO-ANCA enzyme immunoassays. As many as 5% serum samples are positive only by EIA. Ref. AM J Clin Pathol 1999;111:507-513. Performed at: CBPerformed By: #### CBC #### [facility] [address] [place] [address] Dr. Tom DotsonIMMUNOGLOBULIN E, TOTALon [id number] E, Total68 IU/mLNormal6-495The [facility] SystemComment on above:Performed By: #### IGETOT #### [facility] [address] [place] [address] Dr. Tom DotsonANGIOTENSION-CONVERTING ENZYME (ELINOR)on [id number] U/LNormal 14-82The [facility] SystemComment on above:Performed By: #### ANGIOC #### [facility] [address] [place] [address] Dr. Tom IbarraC AUTO DIFFon [id number] #0.1 103/ulNormal0.0-0.1The [facility] SystemComment on above:Performed By: #### INFLUAB #### [facility] [address] [place] [address] Dr. Tom DotsonBasophils/100 WBC (Bld)1.0 %Normal0.2-2.0The [facility] Comment on above:Performed By: #### INFLUAB #### [facility] [address] [place] [address] Dr. Tom MannO #0.0 103/ulNormal0.0-0.7The [facility] SystemComment on above: Performed By: #### INFLUAB #### [facility] [address] [place] [address] Dr. Tom Mannosinophils/100 WBC (Bld)0.1 %Critically low0.9-7.0The [facility] on above:Performed By: #### INFLUAB #### [facility] [address] [place] [address] Dr. Tom Mannrythrocyte distribution width (RBC) [Ratio]12.9 %Zvjpkp83.0-15.0 The [facility] SystemComment on above:Performed By: #### INFLUAB #### [facility] [address] [place] [address] Dr. Tom DotsonHematocrit (Bld) [Volume fraction]44.8 %Sgbuon40.0-54.0The [facility] Hospitalment on above:Performed By: #### INFLUAB #### [facility] [address] [place] [address] Dr. Tom DotsonHemoglobin (Bld) [Mass/Vol]15.0 g/iILjiyhd14.0-18.0The Joel HospitalComment on above:Performed By: #### INFLUAB #### [facility] [address] [address] [address] Tom Salgado #0.02 10e3/ulNormal0.00-0.03The [facility] SystemComasc[facility] on above:Performed By: #### INFLUAB #### [facility] [address] [place] [address] Dr. Tom Salgado %0.2 %Normal0.0-0.5The [facility] SystemComasc[facility]ys hospital on above: Performed By: #### INFLUAB #### [facility] [address] [place] [address] Dr. Tom Lares #1.4 103/ulNormal1.2-3.8The [facility] SystemComasc[facility] hospital on above:Performed By: #### INFLUAB #### [facility] [address] [place] [address] Dr. Tom Menjivarhocytes/100 WBC (Bld)17.6 %Critically low20.5-60.0The [facility] SystemComasc[facility] hospital on above:Performed By: #### INFLUAB #### [facility] [address] [place] [address] Dr. Tom McgillUAL DIFF REQNONormalThe [facility] Health SystemComment on above: Performed By: #### INFLUAB #### [facility] [address] [place] [address] Dr. Tom Anderson (RBC) [Entitic mass]30.9 mhOhpguf29.9-34.0The [facility] SystemComment on above:Performed By: #### INFLUAB #### [facility] [address] [place] [address] Dr. Tom Anderson (RBC) [Mass/Vol]33.5 g/kGRlhygk22.9-35.2The [facility] SystemComasc[facility]ys hospital on above:Performed By: #### INFLUAB #### [facility] [address] [place] [address] Dr. Tom Anderson (RBC) [Entitic vol]92.2 aRJhrfku32.0-94.0The [facility] SystemComment on above:Performed By: #### INFLUAB #### [facility] [address] [place] [address] Dr. Tom Baires #0.8 103/ulNormal0.3-0.8The [facility] SystemComment on above:Performed By: #### INFLUAB #### [facility] [address] [place] [address] Dr. Tom Phanocytes/100 WBC (Bld)9.6 %Normal1.7-12.0The [facility] Comment on above:Performed By: #### INFLUAB #### [facility] [address] [place] [address] Dr. Tom Kevin #5.9 103/ulNormal1.4-6.5The [facility] SystemComment on above:Performed By: #### INFLUAB #### [facility] [address] [place] [address] Dr. oTm Riverautrophils/100 WBC (Bld)71.5 %Lgmjcp00.0-75.0The [facility] SystemComment on above:Performed By: #### INFLUAB #### [facility] [address] [place] [address] Dr. Tom Monroy mean volume (Bld) [Entitic vol]9.9 fLNormal9.5-13.5The [facility] SystemComment on above:Performed By: #### INFLUAB #### [facility] [address] [place] [address] Dr. Tom DotsonPLT325 103/geUjhqku500-338Rtm [facility] SystemComment on above: Performed By: #### INFLUAB #### [facility] [address] [place] [address] Dr. Tom DotsonRBC4.86 106/ulNormal4.70-6.10The [facility] SystemComment on above:Performed By: #### INFLUAB #### [facility] [address] [place] [address] Dr. Tom DotsonWBC8.2 103/ulNormal4.0-11.0The [facility] SystemComment on above: Performed By: #### INFLUAB #### [facility] [address] [address] [address] Tom Meza LUNG CANCER SCREENINGon [id number] LUNG CANCER SCREENING EXAMINATION: CT LUNG CANCER [...] Electronically authenticated by: YARIEL OLSON Date: 2022-04-10 22:[address] [place] [address] AUTO DIFFon [id number] #0.1 103/ulNormal0.0-0.1The [facility] SystemComment on above:Performed By: #### CBC #### [facility] [address] [place] [address] Dr. Tom DotsonBasophils/100 WBC (Bld)1.0 %Normal0.2-2.0The [facility] Comment on above:Performed By: #### CBC #### [facility] [address] [address] [address] Tom Xiao #2.5 103/ulCritically high0.0-0.7The [facility] SystemComment on above:Performed By: #### CBC #### [facility] [address] [place] [address] Dr. Tom Mannosinophils/100 WBC (Bld)29.1 %Critically high0.9-7.0The [facility] SystemComment on above:Performed By: #### CBC #### [facility] [address] [place] [address] Dr. Tom Mannrythrocyte distribution width (RBC) [Ratio]12.8 %Tsudtm24.0-15.0 The [facility] SystemComment on above:Performed By: #### CBC #### [facility] [address] [place] [address] Dr. Tom DotsonHematocrit (Bld) [Volume fraction]46.6 %Obsoqc75.0-54.0The [facility] SystemComment on above:Performed By: #### CBC #### [facility] [address] [place] [address] Dr. Tom DotsonHemoglobin (Bld) [Mass/Vol]14.4 g/iSYibupt25.0-18.0The [facility] SystemComment on above:Performed By: #### CBC #### [facility] [address] [place] [address] Dr. Tom Salgado #0.04 10e3/ulCritically high0.00-0.03The [facility] Comment on above:Performed By: #### CBC #### [facility] [address] [place] [address] Dr. Tom Salgado %0.5 %Normal0.0-0.5The [facility] SystemComment on above: Performed By: #### CBC #### [facility] [address] [place] [address] Dr. Tom MenjivarH #1.3 103/ulNormal1.2-3.8The [facility] SystemComment on above:Performed By: #### CBC #### [facility] [address] [place] [address] Dr. Tom Lugomphocytes/100 WBC (Bld)15.1 %Critically low20.5-60.0The [facility] SystemComment on above:Performed By: #### CBC #### [facility] [address] [place] [address] Dr. Tom McgillUAL DIFF REQNONormalThe [facility] SystemComment on above: Performed By: #### CBC #### [facility] [address] [place] [address] Dr. Tom Anderson (RBC) [Entitic mass]29.5 grQwmaeg64.9-34.0The [facility] SystemComment on above:Performed By: #### CBC #### [facility] [address] [place] [address] Dr. Tom Anderson (RBC) [Mass/Vol]30.9 g/oHKtnazh96.9-35.2The [facility] SystemComment on above:Performed By: #### CBC #### [facility] [address] [place] [address] Dr. Tom Anderson (RBC) [Entitic vol]95.5 fLCritically high80.0-94.0The [facility] SystemComment on above:Performed By: #### CBC #### [facility] [address] [place] [address] Dr. Tom Baires #0.8 103/ulNormal0.3-0.8The [facility] SystemComment on above:Performed By: #### CBC #### [facility] [address] [place] [address] Dr. Tom Phanocytes/100 WBC (Bld)9.5 %Normal1.7-12.0The [facility] Comment on above:Performed By: #### CBC #### [facility] [address] [place] [address] Dr. Tom Kevin #3.9 103/ulNormal1.4-6.5The [facility] SystemComment on above:Performed By: #### CBC #### [facility] [address] [address] [address] Tom Riverautrophils/100 WBC (Bld)44.8 %Rdrijl02.0-75.0The [facility] on above:Performed By: #### CBC #### [facility] [address] [place] [address] Dr. Tom Irvinglet mean volume (Bld) [Entitic vol]10.2 fLNormal9.5-13.5The [facility] on above:Performed By: #### CBC #### [facility] [address] [place] [address] Dr. Tom DotsonPLT328 103/ahVxqxuc771-677Syk [facility] on above: Performed By: #### CBC #### [facility] [address] [place] [address] Dr. Tom DotsonRBC4.88 106/ulNormal4.70-6.10The [facility] on above:Performed By: #### CBC #### [facility] [address] [place] [address] Dr. Tom DotsonWBC8.7 103/ulNormal4.0-11.0The [facility] on above: Performed By: #### CBC #### [facility] [address] [place] [address] Dr. Tom RiverENTIAL MANUALon [id number] LYMPH #0.09 103/ulNormal [facility] on above:Performed By: #### DIFF #### [facility] [address] [place] [address] Dr. Tom DotsonATYPICAL LYMPH %1 %NormalThe [facility] on above: Performed By: #### DIFF #### [facility] [address] [place] [address] Dr. Tom High #0.0 103/ulNormal0.0-0.3The [facility] on above:Performed By: #### DIFF #### [facility] [address] [address] [address] Tom High %0 %Normal0-5The [facility] SystemComment on above:Performed By: #### DIFF #### [facility] [address] [place] [address] Dr. Tom Pimentel #0.00 103/ulNormal0.00-0.10The [facility] HospitalComment on above:Performed By: #### DIFF #### [facility] [address] [place] [address] Dr. Tom Pimentel %0.0 %Critically low0.2-2.0The [facility] SystemComment on above:Performed By: #### DIFF #### [facility] [address] [place] [address] Dr. Tom Huang #NormalThe [facility] SystemComment on above:Performed By: #### DIFF #### [facility] [address] [place] [address] Dr. Tom Huang %NormalThe [facility] SystemComment on above:Performed By: #### DIFF #### [facility] [address] [place] [address] Dr. Tom DotsonCORRECTED WBCNormal4.0-11.0The [facility] Hospitalment on above: Performed By: #### DIFF #### [facility] [address] [place] [address] Dr. Tom Delgado #1.22 103/ulCritically high0.00-0.70The [facility] Comment on above:Performed By: #### DIFF #### [facility] [address] [place] [address] Dr. Tom Delgado%14.0 %Critically high0.9-7.0The [facility] SystemComment on above:Performed By: #### DIFF #### [facility] [address] [place] [address] Dr. Tom Davidson #1.91 103/ulNormal1.20-3.80The [facility] SystemComment on above:Performed By: #### DIFF #### [facility] [address] [place] [address] Dr. Tom Davidson%22.0 %Xawown70.5-60.0The [facility] SystemComment on above:Performed By: #### DIFF #### [facility] [address] [place] [address] Dr. Tom FullerOCYTE #NormalThe [facility] HospitalComment on above: Performed By: #### DIFF #### [facility] [address] [place] [address] Dr. Tom FullerOCYTE %NormalLakehealth Tripoint Medical CenterComment on above: Performed By: #### DIFF #### [facility] [address] [place] [address] Dr. Tom High#0.52 103/ulNormal0.30-0.80The [facility] SystemComment on above:Performed By: #### DIFF #### [facility] [address] [place] [address] Dr. Tom High%6.0 %Normal1.7-12.0The [facility] SystemComment on above: Performed By: #### DIFF #### [facility] [address] [place] [address] Dr. Tom Hdez #NormalLakehealth Tripoint Medical CenterComascension genesys hospital on above:Performed By: #### DIFF #### [facility] [address] [place] [address] Dr. Tom Hdez %NormalThe [facility] SystemComment on above:Performed By: #### DIFF #### [facility] [address] [place] [address] Dr. Tom Dos SantosNormalThe [facility] SystemComment on above:Performed By: #### DIFF #### [facility] [address] [place] [address] Dr. Tom Mckay #4.96 103/ulNormal1.40-6.50The [facility] SystemComment on above:Performed By: #### DIFF #### [facility] [address] [place] [address] Dr. Tom Mckay %57.0 %Ihisnb13.0-75.0The [facility] SystemComment on above: Performed By: #### DIFF #### [facility] [address] [address] [address] Tom DotsonWBC8.7 103/ulNormal4.0-11.0L[facility]health Tripoint Medical CenterComment on above: Performed By: #### DIFF #### [facility] [address] [place] [address] Dr. Tom DotsonLIPID PROFILEon [id number]-HDL RATIO NORMSEE Cleveland ClinicComment on above:Result Comment: 3.3 - 4.4 LOW RISK 4.4 - 7.1 AVERAGE RISK 7.1 - 11.0 MODERATE RISK >11.0 HIGH RISKPerformed By: #### INFLUAB #### [facility] [address] [place] [address] Dr. Tom Changesterol [Mass/Vol]135 mg/dLNormal<=200The [facility] Comment on above:Performed By: #### INFLUAB #### [facility] [address] [place] [address] Dr. Tom Changesterol in HDL [Mass/Vol]51 mg/hLZfcnwu02-84PheLakehealth Tripoint Medical CenterComascension genesys hospital on above:Performed By: #### INFLUAB #### [facility] [address] [place] [address] Dr. Tom Changesterol in LDL [Mass/Vol]74.4 mg/dLKing's Daughters Medical Center OhioComascension genesys hospital on above:Performed By: #### INFLUAB #### [facility] [address] [place] [address] Dr. Tom Gomez.total/Cholesterol in HDL [Mass ratio]2.6 {ratio} NormalThe [facility] SystemComment on above:Performed By: #### INFLUAB #### [facility] [address] [place] [address] Dr. Tom De Luna NORMAL> or = 60 mg/dl - LOW CARDIOVASCULAR RISK <40 mg/dl - HIGH CARDIOVASCULAR RISKKing's Daughters Medical Center OhioComment on above:Performed By: #### INFLUAB #### [facility] [address] [place] [address] Dr. Tom DotsonLDL CALC NORMALSEE BELOWKing's Daughters Medical Center OhioComment on above:Result Comment: <100 mg/dl OPTIMAL 100 - 129 mg/dl NEAR OR ABOVE OPTIMAL 130 - 159 mg/dl BORDERLINE HIGH 160 - 189 mg/dl HIGH >190 mg/dl VERY HIGH Performed By: #### INFLUAB #### [facility] [address] [place] [address] Dr. Tom DotsonTriglyceride [Mass/Vol]48 mg/dLNormal<=150The [facility] Comment on above:Performed By: #### INFLUAB #### [facility] [address] [place] [address] Dr. Tom DotsonVLDL CALC9.6 mg/dLNoACMC Healthcare System GlenbeighComment on above: Performed By: #### INFLUAB #### [facility] [address] [place] [address] Dr. Tom DotsonPROF 14(COMP METB)on 56-28-3535Fsxqgbx [Mass/Vol]3.8 g/dLNormal 3.4-5.0The [facility] SystemComment on above:Performed By: #### INFLUAB #### [facility] [address] [place] [address] Dr. Tom DotsonAlbumin/Globulin [Mass ratio]1.1 {ratio}NormalThe [facility] SystemComment on above:Performed By: #### INFLUAB #### [facility] [address] [place] [address] Dr. Tom White [Catalytic activity/Vol]62 U/ZJvqgws36-407Pjn [facility] SystemComascension genesys hospital on above:Performed By: #### INFLUAB #### [facility] [address] [place] [address] Dr. Tom Faulkner [Catalytic activity/Vol]25 U/XCuajwp74-93Okn [facility] SystemComment on above:Performed By: #### INFLUAB #### [facility] [address] [address] [address] Tom Mohanon gap [Moles/Vol]9.8 mmol/LNormalThe [facility] Health SystemComment on above:Performed By: #### INFLUAB #### [facility] [address] [address] [address] Tom DotsonAST [Catalytic activity/Vol]15 U/AYjidel44-37Cjc [facility] SystemComment on above:Performed By: #### INFLUAB #### [facility] [address] [place] [address] Dr. Tom DotsonBilirubin [Mass/Vol]0.9 mg/dLNormal0.2-1.0The [facility] Comment on above:Performed By: #### INFLUAB #### [facility] [address] [place] [address] Dr. Tom DotsonCalcium [Mass/Vol]8.8 mg/dLNormal8.5-10.1The [facility] Comment on above:Performed By: #### INFLUAB #### [facility] [address] [place] [address] Dr. Tom DotsonChloride [Moles/Vol]102 mmol/WXiwjsy70-936Hiu [facility] Comment on above:Performed By: #### INFLUAB #### [facility] [address] [place] [address] Dr. Tom DotsonCO2 [Moles/Vol]30.5 mmol/FBtfdcn77.0-32.0The [facility] Comment on above:Performed By: #### INFLUAB #### [facility] [address] [place] [address] Dr. Tom DotsonCreatinine [Mass/Vol]0.95 mg/dLNormal0.70-1.30The [facility] SystemComment on above:Performed By: #### INFLUAB #### [facility] [address] [place] [address] Dr. Santos ChangEGFR-AF FINNISH>60Normal>=60The [facility] SystemComment on above:Performed By: #### INFLUAB #### [facility] [address] [address] [address] Tom MannGFR-NON AF FINNISH>60Normal>=60The [facility] SystemComment on above:Performed By: #### INFLUAB #### [facility] [address] [address] [address] Tom DotsonGlobulin (S) [Mass/Vol]3.4 g/dLNormSelect Medical Specialty Hospital - CincinnatiComment on above:Performed By: #### INFLUAB #### [facility] [address] [address] [address] Tom DotsonGlucose [Mass/Vol]85 mg/fXIjjynt72-428Hsy [facility] Comment on above:Performed By: #### INFLUAB #### [facility] [address] [address] [address] Tom DotsonPotassium [Moles/Vol]4.3 mmol/LNormal3.5-5.1[facility] Comment on above:Performed By: #### INFLUAB #### [facility] [address] [address] [address] Tom DotsonProtein [Mass/Vol]7.2 g/dLNormal6.4-8.2[facility] Comment on above:Performed By: #### INFLUAB #### [facility] [address] [address] [address] Tom DotsonSodium [Moles/Vol]138 mmol/BZyexbc282-430Ohm [facility] Comment on above:Performed By: #### INFLUAB #### [facility] [address] [address] [address] Tom DotsonUrea nitrogen [Mass/Vol]14.0 mg/dLNormal7.0-18.0The [facility] SystemComment on above:Performed By: #### INFLUAB #### [facility] [address] [address] [address] Tom DotsonUrea nitrogen/Creatinine [Mass ratio]14.7 mg/mgNormalThCleveland Clinic Children's Hospital for RehabilitationComment on above:Performed By: #### INFLUAB #### [facility] [address] [address] [address] Tom Arreaga 82-95-9000BPB9.010 uIU/mLNormal0.358-3.740[facility] Medical CenterComment on above:Performed By: #### INFLUAB #### [facility] [address] [address] [address] Tom DotsonHepatic Panelon 93-81-3016Duheylr [Mass/Vol]3.2 g/dLNormal3.2-5.5 [facility] HospitalComment on above:Performed By: #### HEPATIC, LIPID, TSH3 wRFLX, [id number] #### [facility] [address] [place] [address] USAAlbumin/Globulin [Mass ratio]1.1 {ratio}[facility] CenterComment on above:Performed By: #### HEPATIC, LIPID, TSH3 wRFLX, [id number] #### [facility] [address] [place] [address] USAALP [Catalytic activity/Vol]38 U/BHbegvt43-07CmvmaqlwpTrumbull Memorial HospitalComment on above:Performed By: #### HEPATIC, LIPID, TSH3 wRFLX, [id number] #### [facility] [address] [place] [address] USAALT [Catalytic activity/Vol]14 U/QOlvafc28-20AzhfsohpbTrumbull Memorial HospitalComment on above:Performed By: #### HEPATIC, LIPID, TSH3 wRFLX, [id number] #### [facility] [address] [place], [place] [id number] USAAST [Catalytic activity/Vol]13 U/ZDeoriv88-45DuzkcrqcgTrumbull Memorial HospitalComment on above:Performed By: #### HEPATIC, LIPID, TSH3 wRFLX, [id number] #### [facility] [address] [place] [address] USABilirubin [Mass/Vol]0.9 mg/dLNormal0.3-1.2FSalem City HospitalComment on above:Performed By: #### HEPATIC, LIPID, TSH3 wRFLX, [id number] #### [facility] [address] [place] [address] USABilirubin,Indirect0.8 mg/dLNoSt. Mary's Medical CenterComment on above:Performed By: #### HEPATIC, LIPID, TSH3 wRFLX, [id number] #### [facility] [address] [place] [address] USABilirubin.direct [Mass/Vol]0.1 mg/dLNormal0.0-0.4FSalem City HospitalComment on above:Performed By: #### HEPATIC, LIPID, TSH3 wRFLX, [id number] #### [facility] [address] [place] [address] USAGlobulin (S) [Mass/Vol]2.9 g/dLNoSt. Mary's Medical CenterComment on above:Performed By: #### HEPATIC, LIPID, TSH3 wRFLX, [id number] #### [facility] [address] [place] [address] USAProtein [Mass/Vol]6.1 g/dLNoal6.1-7.9[facility] HospitalComment on above:Performed By: #### HEPATIC, LIPID, TSH3 wRFLX, [id number] #### [facility] [address] [place] [address] USALipid Panelon 18-24-3940Firaccmyzmi [Mass/Vol]158 mg/dL Zbuznl434-826FoqpkkjeaTrumbull Memorial HospitalComment on above:Result Comment: Chol less than 200 mg/dl low risk Chol 201-239 mg/dl borderline risk Chol 240 mg/dl and greater high riskPerformed By: #### HEPATIC, LIPID, TSH3 wRFLX, [id number] #### [facility] [address] [place] [address] USACholesterol in HDL [Mass/Vol]61 mg/kRFbssqo81-04DwktlqpjxTrumbull Memorial HospitalComment on above:Result Comment: HDL CHOL ATP-III CLASSIFICATION Cardiovascular Risk HDL > or equal to 60 mg/dL LOW HDL < 40 mg/dL HIGHPerformed By: #### HEPATIC, LIPID, TSH3 wRFLX, [id number] #### [facility] [address] [place] [address] USACholesterol.total/Cholesterol in HDL [Mass ratio]2.6 {ratio}Normal<5.0[facility] HospitalComment on above:Performed By: #### HEPATIC, LIPID, TSH3 wRFLX, [id number] #### [facility] [address] [place] [address] USALDL Cholesterol,Cnfofqyehs18 mg/dLNormal0-100[facility] HospitalComment on above:Result Comment: LDL ATP III CLASSIFICATION LDL less than 100 mg/dL Optimal LDL 100-129 mg/dL Near or above optimal LDL 130-159 mg/dL Borderline high LDL 160-189 mg/dL High LDL greater than 189 mg/dL Very highPerformed By: #### HEPATIC, LIPID, TSH3 wRFLX, [id number] #### [facility] [address] [id number] USATriglyceride w/Nnazmy89 mg/jHFfbhin60-320BbpkquizcTrumbull Memorial HospitalComment on above:Result Comment: TRIG ATP III CLASSIFICATION TRIG less than 150 mg/dL Normal TRIG 150-199 mg/dL Borderline high TRIG 200-500 mg/dL High TRIG greater than 500 mg/dL Very high Standard traceable to the Center for Disease Conrtrol and Prevention (CDC) test method.Performed By: #### HEPATIC, LIPID, TSH3 wRFLX, [id number] #### [facility] [address] [id number] USAVLDL SHEXWTERBQK23 mg/dLNormalTrumbull Memorial HospitalComment on above:Performed By: #### HEPATIC, LIPID, TSH3 wRFLX, [id number] #### [facility] [address] [place] [address] USAThyroid Stim Hormone w/Rflxon 61-89-0099Qmdcdmv Stim Hormone w/Rflx1.92 u[iU]/mLNormal0.45-5.33[facility] Comment on above:Performed By: #### HEPATIC, LIPID, TSH3 wRFLX, [id number] #### [facility] [address] [id number] USAVitamin D 25 Hydroxy Totalon 21-96-8426Cmizmcd D 25 Hydroxy Total11.9 ng/zSIsj91-311JetdwukixTrumbull Memorial HospitalComment on above:Result Comment: VITAMIN D STATUS 25(OH)VITAMIN D RANGE (ng/mL) Deficient <20 Insufficient 20 to <30 Sufficient 30 to 100 Reference: Darrion MF,Zane NC, Hanna AVELAR, et al. Evaluation,treatment, and prevention of vitamin D deficiency; an Endocrine Society clinical practice guideline. JCEM. 2010; 96(7):1911-30. PERFORMED BY: [facility] [address] [id number] PATHOLOGIST SENIOR COBOL DEVELOPER MIGUELINA FLOOD M.D.Performed By: #### HEPATIC, LIPID, TSH3 wRFLX, [id number] #### [address] [address] [facility] Vital Signs Date TimeVital SignValuePerforming YdjmmqffoKgnlfgds89-34-7286 15:38-0400Body mass index (BMI) [Ratio]27.86 kg/m2Azul Leerani NATIONAL ACCOUNT REPRESENTATIVE Work Phone: [facility] HospitalIaawcqtwpe03-64-6230 15:38-0400Body temperature 97.81 [degF]Azul Leerani NATIONAL ACCOUNT REPRESENTATIVE Work Phone: [facility] HospitalLzqwejtcvl75-22-8622 15:38-0400Body sfutsy70.8 kg Azul Leidymaxrani NATIONAL ACCOUNT REPRESENTATIVE Work Phone: [facility] HospitalWohermgaxj38-61-6032 15:38-0400Diastolic blood aemhziug73 mm[Hg]Azul Leerani NATIONAL ACCOUNT REPRESENTATIVE Work Phone: [address] [address]Cjpgyketgt95-07-6447 15:38-0400Heart rate84 /min Azul Leidymaxrani NATIONAL ACCOUNT REPRESENTATIVE Work Phone: [address] [address]Wumlxhqbch67-97-5233 15:38-0400Respiratory rate24 /minAzul Damien NATIONAL ACCOUNT REPRESENTATIVE Work Phone: [facility] HospitalGvzboovrqj69-45-7695 15:38-7180DyZ6% (BldA) [Mass fraction]94 %Azul Quezada NATIONAL ACCOUNT REPRESENTATIVE Work Phone: [facility] HospitalIsshbgplyy66-77-9111 15:38-0400Systolic blood dwplhkag070 mm[Hg]Azul Bragaz NATIONAL ACCOUNT REPRESENTATIVE Work Phone: [facility] HospitalItxynqtjcy57-23-8520 13:54-0400Body mass index (BMI) [Ratio]27.42 kg/m2Ivorysa Maria Luzz NATIONAL ACCOUNT REPRESENTATIVE Work Phone: [facility] HospitalSqgjbmeeuu75-18-6665 13:54-0400Body [degF]Azul Bragaz NATIONAL ACCOUNT REPRESENTATIVE Work Phone: [facility] HospitalQivmsjdxcu08-60-9069 13:54-0400Body fmanry65.26 kgAzul Bragaz NATIONAL ACCOUNT REPRESENTATIVE Work Phone: [facility] HospitalBhetwvgglh85-61-7692 13:54-0400Diastolic blood mm[Hg]Azul Bragaz NATIONAL ACCOUNT REPRESENTATIVE Work Phone: [facility] HospitalGnrytbvhoh71-30-8717 13:54-0400Heart rate88 /min Azul Maria Luzz NATIONAL ACCOUNT REPRESENTATIVE Work Phone: [facility] HospitalChqswzpdnp13-05-2950 13:54-0400Respiratory rate24 /minLisa Quezada NATIONAL ACCOUNT REPRESENTATIVE Work Phone: [facility] HospitalOkbrhbltav28-92-2044 13:54-6502EvS5% (BldA) [Mass fraction]92 %Azul Bragaz NATIONAL ACCOUNT REPRESENTATIVE Work Phone: [facility] HospitalAmceeguokf47-64-9737 13:54-0400Systolic blood yhrskcgw778 mm[Hg]Azul Bragaz NATIONAL ACCOUNT REPRESENTATIVE Work Phone: [facility] HospitalBmqhxofukl22-40-9531 14:25-0500Body mass index (BMI) [Ratio]25.57 kg/m2Azul Leeholz NATIONAL ACCOUNT REPRESENTATIVE Work Phone: [facility] HospitalVjahfegatb32-04-8417 14:25-0500Body temperature 99.39 [degF]Azul Maria Luzz NATIONAL ACCOUNT REPRESENTATIVE Work Phone: [phone]02-25-2025 14:25-0500Body trkgqe43.91 kgLisa Leidyhholz NATIONAL ACCOUNT REPRESENTATIVE Work Phone: [phone]-[facility] HospitalPuuxpkrmam44-79-4276 14:25-0500Diastolic blood fbopenyd11 mm[Hg]Azul Aichholz NATIONAL ACCOUNT REPRESENTATIVE Work Phone: [facility] HospitalDxwbuibkgc54-46-6250 14:25-0500Heart rate90 /min Azul Aichholz NATIONAL ACCOUNT REPRESENTATIVE Work Phone: 1(771)523-[address] [place], [place] [address]Naygeoxcqo36-91-0417 14:25-0500Respiratory rate26 /minLisa Aichholz NATIONAL ACCOUNT REPRESENTATIVE Work Phone: [phone])[address] [place], [place] [address]Lfpsgfsqjs63-51-4672 14:25-6063FjV1% (BldA) [Mass fraction]92 %Azul Aichholz NATIONAL ACCOUNT REPRESENTATIVE Work Phone: 1(240)681-[address] [place], [place] [address]Fwbcgaxovv63-47-2126 14:25-0500Systolic blood srpuqmza374 mm[Hg]Azul Aichholz NATIONAL ACCOUNT REPRESENTATIVE Work Phone: 1(273)729-[address] [place], [place] [address]Qljvfngaln67-02-7924 13:20-0500Body wrmxju428.4 cmLisa Aichholz NATIONAL ACCOUNT REPRESENTATIVE Work Phone: [facility] HospitalUjmampeibq90-57-8991 13:20-0500Body mass index (BMI) [Ratio]25.17 kg/m2Lisa Aichholz NATIONAL ACCOUNT REPRESENTATIVE Work Phone: [facility] HospitalRjyqmoyvns44-37-1909 13:20-0500Body temperature 98.29 [degF]Azul Aichholz NATIONAL ACCOUNT REPRESENTATIVE Work Phone: 1(498)357-[address] [place], [place] [address]Xukasrxxpm58-54-2635 13:20-0500Body adwsuq44.55 kgLisa Aichholz NATIONAL ACCOUNT REPRESENTATIVE Work Phone: 1(887)445-[address] [place], [place] [address]Jtqdeajggc44-92-2211 13:20-0500Diastolic blood zghkkgap64 mm[Hg]Azul Aichholz NATIONAL ACCOUNT REPRESENTATIVE Work Phone: [address] [address]Hxdmlnidzy95-50-4239 13:20-0500Heart rate77 /min Azul Aichholz NATIONAL ACCOUNT REPRESENTATIVE Work Phone: [facility] HospitalEagqzsafnq43-28-0558 13:20-0500Respiratory rate24 /minAzul Leerani NATIONAL ACCOUNT REPRESENTATIVE Work Phone: [facility] HospitalMkvspdmxse25-52-3324 13:20-3616LkB8% (BldA) [Mass fraction]97 %Azul Leerani NATIONAL ACCOUNT REPRESENTATIVE Work Phone: [facility] HospitalBbmafeficr88-49-6611 13:20-0500Systolic blood zefluyon662 mm[Hg]Azul Bragalisette NATIONAL ACCOUNT REPRESENTATIVE Work Phone: [facility] HospitalYjnlqsvyxm88-68-7397 13:20-0400Body .4 cmIbeth Torres DO Work Phone: 1(870)[facility] HospitalXrfwhcziff38-52-1069 13:20-0400Body mass index (BMI) [Ratio]23.67 kg/m2Ibeth Torres DO Work Phone: 1(514)[facility] HospitalTbjjocjlnj44-81-2838 13:20-0400Body dypkcz97.38 kgIbeth Torres DO Work Phone: 1(856)[facility] CenterSal[facility] HospitalXkmofrldhl94-25-3839 13:20-0400Diastolic blood bgnazezj91 mm[Hg]Ibeth Torres DO Work Phone: 1(638)[facility]301[facility] HospitalVnzslpsrbf02-58-4228 13:20-0400Heart rate70 /min Ibeth Torres DO Work Phone: 1(978)[facility] HospitalZlixbvdsda38-55-5749 13:20-0400Respiratory rate12 /minIbeth Torres DO Work Phone: 1(117)[facility] HospitalSal[facility] HospitalQmelnztjfn30-64-5692 13:20-3869JpA3% (BldA) [Mass fraction]98 %Ibeth Torres DO Work Phone: 1(374)[facility]301[facility] HospitalWvflphzzbq13-44-8167 13:20-0400Systolic blood bvunzlar482 mm[Hg]Ibeth Torres DO Work Phone: 1(974)[facility] HospitalEmraemrmyw28-51-7160 14:17-0400Body krsovy646.4 Elder Aichholz NATIONAL ACCOUNT REPRESENTATIVE Work Phone: [facility] HospitalLassuryvgw22-43-9654 14:17-0400Body mass index (BMI) [Ratio]23.62 kg/m2Lisa Rosaholz NATIONAL ACCOUNT REPRESENTATIVE Work Phone: [facility] HospitalRhtqswbeba53-62-4465 14:17-0400Body temperature 98.01 [degF]Azul Maria Luzz NATIONAL ACCOUNT REPRESENTATIVE Work Phone: [facility] HospitalQujanhdaok05-13-0290 14:17-0400Body hcrthu97.19 kgLisa Rosaholz NATIONAL ACCOUNT REPRESENTATIVE Work Phone: [address] [address]Bmytjtugkz66-68-9796 14:17-0400Diastolic blood gpygaayd03 mm[Hg]Azul Rosaholz NATIONAL ACCOUNT REPRESENTATIVE Work Phone: [address] [address]Smbnosvixl96-82-0290 14:17-0400Heart rate79 /min Azul Maria Luzz NATIONAL ACCOUNT REPRESENTATIVE Work Phone: [address] [address]Ubaspffzfk57-53-5323 14:17-0400Respiratory rate22 /minLisa Maria Luzz NATIONAL ACCOUNT REPRESENTATIVE Work Phone: [address] [address]Ahthhxbpud88-83-4663 14:17-9133RxF0% (BldA) [Mass fraction]94 %Azul Maria Luzz NATIONAL ACCOUNT REPRESENTATIVE Work Phone: [address] [address]Kcjxkaearn02-64-5116 14:17-0400Systolic blood mkdaabvh74 mm[Hg]Azul Rosanormaz NATIONAL ACCOUNT REPRESENTATIVE Work Phone: [facility] HospitalGbpwdlbegi41-51-8811 10:00-0500Body .4 cmLisa Rosaholz NATIONAL ACCOUNT REPRESENTATIVE Work Phone: [facility] HospitalHrwkbvhtdw64-49-1545 10:00-0500Body mass index (BMI) [Ratio]26.84 kg/m2Lisa Rosaholz NATIONAL ACCOUNT REPRESENTATIVE Work Phone: [facility] HospitalCbwacmdkdm51-40-1126 10:00-0500Body temperature 97.11 [degF]Azul Rosaholz NATIONAL ACCOUNT REPRESENTATIVE Work Phone: [facility] HospitalRzfxmonpvd22-97-8500 10:00-0500Body .26 kgAzul Quezada NATIONAL ACCOUNT REPRESENTATIVE Work Phone: noms Vacnzsjzwn28-49-8989 10:00-0500Diastolic blood icioqnbs71 mm[Hg]Azul Quezada NATIONAL ACCOUNT REPRESENTATIVE Work Phone: noms Gqmhyhsqmo86-41-2589 10:00-0500Heart rate83 /min Azul Quezada NATIONAL ACCOUNT REPRESENTATIVE Work Phone: noms Qflgtyjvvu85-62-0586 10:00-0500Respiratory rate16 /minAzul Quezada NATIONAL ACCOUNT REPRESENTATIVE Work Phone: noms Jxolawmdxm48-79-9534 10:00-6413YqY7% (BldA) [Mass fraction]94 %Azul Quezada NATIONAL ACCOUNT REPRESENTATIVE Work Phone: noms Frcasqhdia37-20-3586 10:00-0500Systolic blood elwhdpxc551 mm[Hg]Azul Quezada NATIONAL ACCOUNT REPRESENTATIVE Work Phone: [facility] Encounters Encounter DateEncounter TypeCare ProviderFacilityStart: 07-13-2025 End: 51-50-1646toeelnanwaMOPOETOJD A JUMAAProMedMagruder Memorial Hospital HospitalStart: 44-04-2753erngnydkwzNLLJ Lashawn [facility] PPGStart: 07-07-2025 End: 26-87-4771mbcusrihfnTDZMZJY PROVIDERFacility:METROHealthStart: 07-07-2025 End: 10-44-8851Lnwxzenqny and management of inpatientMARIAM ARMIN DIABProMedica Theodore HospitalStart: 05-17-2025 End: 66-13-3793Nnrgsgkhqtbl care manage srvc 7 day dischargeAzul Bragalisette NATIONAL ACCOUNT REPRESENTATIVE Work Phone: [facility] CWM FMComment on above:Centrilobular emphysema (HCC) (Primary Dx); Tourette's ; Bilateral carotid artery stenosis; Rising PSA level; Mixed hyperlipidemia ; Depression with anxiety; Former smoker; Elevated glucose; Pain of right hipStart: 05-17-2025 End: 75-36-6712artfsdafghWNFO AICHHOLZNot AvailableStart: 05-17-2025 End: 05-24-2822Brhlxe flowsheetLisa Aichholz NATIONAL ACCOUNT REPRESENTATIVE Work Phone: [facility] CWM FMStart: 05-17-2025 End: 43-49-8321Sdwvdi flowsheetLisa Aichholz NATIONAL ACCOUNT REPRESENTATIVE Work Phone: [facility] FMStart: 02-15-2025 End: 58-38-5767Wvrqlf flowsheetLisa Aichholz NATIONAL ACCOUNT REPRESENTATIVE Work Phone: [facility] FMStart: 02-15-2025 End: 46-47-2763Hfzuae flowsheetLisa Aichholz NATIONAL ACCOUNT REPRESENTATIVE Work Phone: [facility] FMStart: 02-15-2025 End: 24-31-4601Dtiuua outpatient visit 25 minutesLisa Aichholz NATIONAL ACCOUNT REPRESENTATIVE Work Phone: [facility] FMComment on above:Depression with anxiety (Primary Dx); Cerebrovascular accident (CVA), unspecified mechanism (CMS/HCC); Overweight (BMI 25.0-29.9); Centrilobular emphysema (CMS/HCC); Insomnia, unspecifiedStart: 02-15-2025 End: 73-51-0689nbhiosqierKVDS AICHHOLZNot AvailableStart: 12-27-2024 End: 10-33-8725VdtpzxYmam Aichholz NATIONAL ACCOUNT REPRESENTATIVE Work Phone: [facility] FMComment on above:Mixed hyperlipidemia (CMS/HCC)Start: 11-16-2024 End: 44-40-0657Yznqex flowsheetLisa Aichholz NATIONAL ACCOUNT REPRESENTATIVE Work Phone: [facility] FMStart: 11-16-2024 End: 79-82-0907Uabqii flowsheetLisa Aichholz NATIONAL ACCOUNT REPRESENTATIVE Work Phone: [facility] FMStart: 11-16-2024 End: 98-10-7327Oynoawnen Result EncounterLisa Aichholz NATIONAL ACCOUNT REPRESENTATIVE Work Phone: [facility] External Department UnsolicitedStart: 11-16-2024 End: 80-73-0159Gqhmxxx encounter procedureLisa Leerani NATIONAL ACCOUNT REPRESENTATIVE Work Phone: [facility] CWM FMComment on above:Encounter for subsequent annual wellness visit (AWV) in Medicare patient (Primary Dx); Centrilobular emphysema (CMS/HCC); Cerebrovascular accident (CVA), unspecified mechanism (CMS/HCC); Bilateral carotid artery stenosis; Overweight (BMI 25.0-29.9); Depression with anxiety; COPD with acute exacerbation ([facility]/HCC)Start: 11-16-2024 End: 55-18-0864awjqrwhuqhVUBV AICHHOLZNot AvailableStart: 10-22-2024 End: 22-12-9815Onbmayfdt Result EncounterGeneric External Data ProviderNOMS External Department UnsolicitedStart: 10-22-2024 End: 04-18-9249Hjsujarjh Result EncounterGeneric External Data ProviderNOMS External Department UnsolicitedStart: 09-08-2024 End: 38-64-4924Mpgevnygx Result EncounterGeneric External Data ProviderNOMS External Department UnsolicitedStart: 09-08-2024 End: 73-70-1667Qxnkbtjfc Result EncounterGeneric External Data ProviderNOMS External Department UnsolicitedStart: 09-06-2024 End: 4243Fefhawpwn Result EncounterLisa Damien NATIONAL ACCOUNT REPRESENTATIVE Work Phone: noms External Department UnsolicitedStart: 09-06-2024 End: 86-67-3741Xezhknkdr Result EncounterLisa Damien NATIONAL ACCOUNT REPRESENTATIVE Work Phone: [facility]oms External Department UnsolicitedStart: 08-16-2024 End: 90-89-0193Rzqapr flowsheetLisa Forbesmaxrani NATIONAL ACCOUNT REPRESENTATIVE Work Phone: [facility] CWM FMStart: 08-16-2024 End: 35-23-1956Hskqij flowsheetLisa Leeholz NATIONAL ACCOUNT REPRESENTATIVE Work Phone: [facility] CWM FMStart: 08-16-2024 End: 62-37-7241Fceerp outpatient visit 25 minutesLisa Leerani NATIONAL ACCOUNT REPRESENTATIVE Work Phone: [facility] CWM FMComment on above:Depression with anxiety (Primary Dx); Primary insomnia; Cerebrovascular accident (CVA), unspecified mechanism (CMS/HCC); Centrilobular emphysema (CMS/HCC); Bilateral carotid artery stenosis; Sessile colonic polyp; Smoker; Needs flu shot; Former smoker; Insomnia, unspecifiedStart: 08-16-2024 End: 74-95-1695lnzlydyowfJLOD AICHHOLZNot AvailableStart: 07-06-2024 End: 07-34-0646Aajpgeoym Result EncounterGeneric External Data ProviderNOMS External Department UnsolicitedStart: 07-06-2024 End: 25-68-2581Elxgxssxo Result EncounterGeneric External Data ProviderNOMS External Department UnsolicitedStart: 06-02-2024 End: 82-20-2113RqqzdxBwye Aichnormaz NATIONAL ACCOUNT REPRESENTATIVE Work Phone: [facility] CWM FMComment on above:Depression with anxiety; Insomnia, unspecified; Mixed hyperlipidemia (CMS/HCC)Start: 06-01-2024 End: 29-83-6967Ylxkyq OnlyLisa Leenormaz NATIONAL ACCOUNT REPRESENTATIVE Work Phone: [facility] CWM FMComment on above:Rising PSA level (Primary Dx)Start: 05-31-2024 End: 15-73-3546Sachoized Result EncounterLisa Leidyhholz NATIONAL ACCOUNT REPRESENTATIVE Work Phone: noms External Department UnsolicitedStart: 05-31-2024 End: 62-06-7091Embkniwpg Result EncounterLisa Rosaholz NATIONAL ACCOUNT REPRESENTATIVE Work Phone: noms External Department UnsolicitedStart: 05-31-2024 End: 87-25-3861Jolyius encounter Swetha Torres DO Work Phone: noms BWM GENSComment on above:Screening for malignant neoplasm of colon (Primary Dx)Start: 05-31-2024 End: 63-56-9219oeqowvvccjESIN DUCKETTNot AvailableStart: 05-19-2024 End: 49-97-2005Fdmaqm flowsheetAzul Quezada NATIONAL ACCOUNT REPRESENTATIVE Work Phone: [facility] CWM FMStart: 05-19-2024 End: 25-27-3416Lrdgpw flowsheetAzul Quezada NATIONAL ACCOUNT REPRESENTATIVE Work Phone: n[facility] CWM FMStart: 05-19-2024 End: 62-59-2261Odpnuk outpatient visit 25 minutesAzul Quezada NATIONAL ACCOUNT REPRESENTATIVE Work Phone: [facility] CWM FMComment on above:Depression with anxiety (Primary Dx); Screening for prostate cancer; Smoker; Mixed hyperlipidemia (CMS/HCC); Sessile colonic polyp; Centrilobular emphysema (CMS/HCC); Bilateral carotid artery stenosis; Right hand painStart: 01-14-2024 End: 36-05-7664Pdrczkolv encounterEmily Moore RNProMedica Physicians Neurology Start: 39-43-9246Lqtckey encounter procedureLisa Quezada NATIONAL ACCOUNT REPRESENTATIVE Work Phone: noms HealthcareStart: 10-30-2023 End: 67-99-3940Jekqtm outpatient visit 15 minutesAzul Quezada NATIONAL ACCOUNT REPRESENTATIVE Work Phone: [facility] CWM FMComment on above:Influenza (Primary Dx); Marijuana abuse; Smoker; BMI 26.0-26.9,adult; Centrilobular emphysema (CMS/HCC)Start: 26-74-2140Gcnqywzzu Result Encounter Generic External Data ProviderNOMS External Department UnsolicitedStart: 39-34-9938Rfqbcnfmk Result EncounterGeneric External Data ProviderNOMS External Department UnsolicitedStart: 09-25-2022 End: 61-79-1950ccnkzhyowmVDE 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Facility:A1Qwmvi: 04-16-2022 End: 86-07-7676cvhsekthuoZFJDMO SAMSAFacility:J7Xsngt: 04-10-2022 End: 58-87-4024uecqwppfspKIBVZJ SAMSAFacility:P4Kmwtg: 03-06-2022 End: 75-52-1140fsjlvulxczKFA AZUL DAMIENFacility:H1 Procedures DateProcedureProcedure DetailPerforming ClinicianStart: 08-05-0543OK CHEST 2V Azul Quezada NATIONAL ACCOUNT REPRESENTATIVE Work Phone: Start: 87-64-5180KTO HEMOGLOBINGeneric External Data ProviderStart: 31-36-5946FY LUNG SCREENING LOW DOSEGeneric External Data ProviderStart: 25-52-7341EIJ TOTAL+% FREELisa Damien NATIONAL ACCOUNT REPRESENTATIVE Work Phone: Start: 62-23-1844XGJ CBC WITH AUTO DIFFGeneric External Data ProviderStart: 38-52-1786CuhwtiskvcnNbpsrif ProviderStart: 91-99-8196USN UA (CLEAN/CATCH) MICROSCOPIC IF INDICATELisa Damien NATIONAL ACCOUNT REPRESENTATIVE Work Phone: Start: 63-32-3154EECQK CULTURE 2Generic External Data ProviderStart: 18-17-4053BFSYP CULTURE 1Generic External Data ProviderStart: 87-70-4900OEO screeningNATHAN CHRISTOPHERComment on above:Performed By: #### PSASC #### [facility] [address] [place] [address] Dr. Tom DotsonStart: 90-88-2097Mgrbb depression screening assessmentEmvenkatesh Moore RN Plan of Treatment DateCare ActivityDetailAuthorStart: 07-61-8358Auibepxhy for malignant neoplasm of colonNOMS HealthcareStart: 11-21-2025 End: 05-78-6793Bnzqbja encounter sngheqjur49/02/2026 4:30 PM EST Office Visit [facility] [address] [place] [address] Azul Quezada, ORACIO [address] [place] [phone] KAELYN FLOREZ FMStart: 02-25-2026Medicare Annual Wellness (AWV) Medicare Annual Wellness (AWV)NOMS HealthcareStart: 07-18-2025 End: 58-37-6448Hepovmo encounter psohqxxsj13/27/2025 1:20 PM EDT Office Visit [facility] [address] [place] [address] Azul Quezada, NATIONAL ACCOUNT REPRESENTATIVE [address] [place] [address] [facility] FMStart: 87-05-1415Ufmxidzsr vaccinationInfluenza Vaccine (#1)NOMS HealthcareStart: 05-17-2025 End: 31-30-2128Bkriket encounter jarzpcdbr83/26/2025 3:20 PM EDT Office Visit [facility] [address] [place] [address] Azul Quezada, NATIONAL ACCOUNT REPRESENTATIVE [address] [place] [address] Tourette's (Primary Dx); Centrilobular emphysema (HCC); Bilateral carotid artery stenosis; Rising PSA level; Mixed hyperlipidemia ; Depression with anxiety; Former smoker; Elevated glucoseNOMERCY HOSPITAL ADA – ADA FMComment on above:Tourette's (Primary Dx); Centrilobular emphysema (HCC); Bilateral carotid artery stenosis; Rising PSA level; Mixed hyperlipidemia ; Depression with anxiety; Former smoker; Elevated glucoseStart: 05-17-2025 End: 89-83-6470Ruavbqrbcswrw metabolic 2000 panel - Serum or PlasmaComprehensive metabolic panel Lab Routine Mixed hyperlipidemia Elevated glucose Expected: 05/17/2025 (Approximate), Expires: 05/17/2026NOMS HealthcareComment on above: Expected: 05/17/2025 (Approximate), Expires: 05/17/2026Start: 05-17-2025 End: 54-16-5503Bfskdtyxcd A1c/Hemoglobin.total in BloodHemoglobin A1c Lab Routine Elevated glucose Expected: 05/17/2025 (Approximate), Expires: 05/17/2026 NOMS HealthcareComment on above:Expected: 05/17/2025 (Approximate), Expires: 05/17/2026Start: 05-17-2025 End: 78-24-7503Zwvnx 1996 panel - Serum or PlasmaLipid panel Lab Routine Mixed hyperlipidemia Expected: 05/17/2025 (Approximate), Expires: 05/17/2026[facility] HealthcareComment on above:Expected: 05/17/2025 (Approximate), Expires: 05/17/2026Start: 05-17-2025 End: 30-76-4751ANR, total and freePSA, total and free Lab Routine Rising PSA level Expected: 05/17/2025 (Approximate), Expires: 05/17/2026[facility] Work Phone: Comment on above:Expected: 05/17/2025 (Approximate), Expires: 05/17/2026Start: 05-17-2025 End: 24-35-8550Lwqvbtbtvre [Units/volume] in Serum or PlasmaTSH Lab Routine Depression with anxiety Expected: 05/17/2025 (Approximate), Expires: 05/17/2026 NOMS HealthcareComment on above:Expected: 05/17/2025 (Approximate), Expires: 05/17/2026Start: 05-17-2025 End: 63-24-0735Rmtzboeoby complete panel - UrineUrinalysis with reflex microscopic (clean catch) Lab Routine Former smoker Expected: 05/17/2025 (Vilma roximate), Expires: 05/17/2026[facility] HealthcareComment on above:Expected: 05/17/2025 (Approximate), Expires: 05/17/2026Start: 05-17-2025 End: 20-24-7817LC Hip - right 3 ViewsXR hip right 2 or 3 views Imaging Routine Pain of right hip Expected: 05/17/2025, Expires: 05/17/2026[facility] Healthcare Comment on above:Expected: 05/17/2025, Expires: 05/17/2026Start: 02-15-2025 End: 46-06-4414Ffnixam encounter procedureNOMS CWM FMComment on above: Cerebrovascular accident (CVA), unspecified mechanism (CMS/HCC) (Primary Dx); Overweight (BMI 25.0-29.9); Depression with anxiety; Centrilobular emphysema (CMS/HCC)Start: 11-16-2024 End: 25-05-3652Uuvczzc encounter procedureNOMS CWM FMComment on above: Cerebrovascular accident (CVA), unspecified mechanism (CMS/HCC) (Primary Dx); Centrilobular emphysema (CMS/HCC); Bilateral carotid artery stenosis; Overweight (BMI 25.0-29.9); Depression with anxiety; Encounter for subsequent annual wellness visit (AWV) in Medicare patientStart: 11-16-2024 End: 60-81-9232JF Chest 2 ViewsXR chest 2 views Imaging Routine COPD with acute exacerbation (CMS/HCC) Expected: 11/16/2024 (Approximate), Expires: 11/16/2025 [facility] Healthcare Work Phone: Comment on above:Expected: 11/16/2024 (Approximate), Expires: 11/16/2025Start: 02-22-2025Medicare Annual Wellness (AWV)Medicare Annual Wellness (AWV)[facility] HealthcareStart: 08-16-2024 End: 33-97-1088Foyvesq encounter procedureNOMS CWM FMComment on above:Primary insomnia (Primary Dx); Cerebrovascular accident (CVA), unspecified mechanism (CMS/HCC); Centrilobular emphysema (CMS/HCC); Bilateral carotid artery stenosis; Sessile colonic polyp; Smoker; Depression with anxietyStart: 10-02-1234Cejbmlvwt for malignant neoplasm of colonNONM HealthcareStart: 06-01-2024 End: 97-45-1003QOK, total and freePSA, total and free Lab Routine Rising PSA level Expected: 06/01/2024 (Approximate), Expires: 06/01/2025[facility] Healthcare Work Phone: Comment on above:Expected: 06/01/2024 (Approximate), Expires: 06/01/2025Start: 54-26-4225Wywqtmsme vaccinationSALT LAKE [facility]AVIORAL HEALTH [facility] HealthcareStart: 05-19-2024 End: 47-18-9457BPR W Auto Differential panel - BloodCBC and differential Lab Routine Smoker Expected: 05/19/2024 (Approximate), Expires: 05/19/2025[facility] Work Phone: Comment on above:Expected: 05/19/2024 (Approximate), Expires: 05/19/2025Start: 05-19-2024 End: 83-81-2956Ynstzlbdwdtxw metabolic 2000 panel - Serum or PlasmaComprehensive metabolic panel Lab Routine Depression with anxiety Mixed hyperlipidemia (CMS/HCC) Expected: 05/19/2024 (Approximate), Expires: 05/19/2025[facility] Comment on above:Expected: 05/19/2024 (Approximate), Expires: 05/19/2025Start: 05-19-2024 End: 73-54-1781Vnfyw 1996 panel - Serum or PlasmaLipid panel Lab Routine Mixed hyperlipidemia (CMS/HCC) Expected: 05/19/2024 (Approximate), Expires:05/19/2025 NOMS HealthcareComment on above:Expected: 05/19/2024 (Approximate), Expires: 05/19/2025Start: 05-19-2024 End: 45-23-8617Bjylkod encounter lbukqhnpm50/28/2024 2:00 PM EDT Office Visit [facility] [address] [place] [address] Azul Quezada, ORACIO [address] [place] [address] Screening for prostate cancer (Primary Dx); Smoker; Depression with anxiety; Mixed hyperlipidemia (CMS/HCC)[facility] FMComment on above:Screening for prostate cancer (Primary Dx); Smoker; Depression with anxiety; Mixed hyperlipidemia (CMS/HCC)Start: 05-19-2024 End: 55-64-2766Gsgkzoqw specific Ag [Mass/volume] in Serum or PlasmaPSA Lab Routine Screening for prostate cancer Expected: 05/19/2024 (Approximate), Expires: 05/19/2025[facility] HealthcareComment on above:Expected: 05/19/2024 (Approximate), Expires: 05/19/2025Start: 05-19-2024 End: 42-46-4299Lqvghtxcbn complete panel - UrineUrinalysis with reflex microscopic (clean catch) Lab Routine Smoker Expected: 05/19/2024 (Approximate), Expires: 05/19/2025NOMS HealthcareComment on above:Expected: 05/19/2024 (Approximate), Expires: 05/19/2025Start: 22-20-4389Cdmgpgesd vaccination Influenza Vaccine (#1)NOMS HealthcareComment on above:Postponed from 2023 (Patient Refused)Start: 01-14-2024 End: 95-49-8449KD Carotid arteries - bilateralVas carotid duplex bilateral Vascular Ultrasound Routine Internal carotid artery stenosis, right Expected: 01/14/2024, Expires: 01/13/2025[facility] Work Phone: Comment on above:Expected: 01/14/2024, Expires: 01/13/2025Start: 11-13-2023 End: 78-45-3065Gceapfr encounter ewffmmusx30/22/2024 9:40 AM EST Office Visit [facility] [address] [place] [address] Azul Quezada, NATIONAL ACCOUNT REPRESENTATIVE [address] [place] [address] [facility] FMStart: 10-30-2023 End: 75-56-1778Natwpyd encounter dicwuwlgr75/08/2024 10:00 AM EST Office Visit [facility] [address] [place] [address] Azul Quezada, NATIONAL ACCOUNT REPRESENTATIVE [address] [place] [address] [facility] FMStart: 34-44-3284Oujnjoprd vaccinationInfluenza Vaccine (#1)[facility]S HealthcareStart: 72-35-2841Ggeos BMI ScreeningAdult BMI ScreeningProAvita Health Systemca Health SystemStart: 01-97-9098Xdqjxtp ScreeningTobacco ScreeningProAvita Health Systemca Health SystemStart: 19-54-7357Hydtcatfkn ScreeningDepression ScreeningProAvita Health Systemca [facility] SystemStart: 13-72-7001Ccnzfziqhoaaka of varicella zoster vaccineZoster (Shingles) Vaccine (1 of 2)[facility] SystemStart: 03-10-1082XGyY,Tdap and Td Vaccines (1 - Tdap)DTaP,Tdap and Td Vaccines (1 - Tdap)[facility] SystemStart: 84-81-0103Dfyxngsnehrn Vaccine: 65+ Years (1 of 2 - PCV)Pneumococcal Vaccine: 65+ Years (1 of 2 - PCV)[facility] HealthcareStart: 1960Medicare Annual Wellness (AWV)Medicare Annual Wellness (AWV)[facility] HealthcareStart: 05-25-1135Yaqdjtppc for malignant neoplasm of colonNONM HealthcareStart: 64-45-6268Aolhcbkxk for malignant neoplasm of lungLung Cancer Screening Shared Decision MakingSALT LAKE BEHAVIORAL HEALTH [facility]OSPITAL HealthcareBLOOD CULTURE 1BLOOD CULTURE 1 Lab Routine 10/21/2023 12:27 PM ESTSALT LAKE BEHAVIORAL HEALTH HOSPITAL HealthcareBLOOD CULTURE 2BLOOD CULTURE 2 Lab Routine 10/21/2023 12:30 PM ESTSalem Memorial District Hospital Immunizations Immunization DateImmunizationNotesCare DqjgfjedOdvkwgud42-70-6396FJIKYCO - Respiratory syncytial virus (RSV), vaccine, bivalent, protein subunit RSV prefusion F, diluent reconstituted, 0.5 mL, PFLisa Aichholz NATIONAL ACCOUNT REPRESENTATIVE Work Phone: [facility] HospitalTzhinftisw53-93-6670Mvkudjwga, injectable, Madin Slater Canine Kidney, preservative free, quadrivalentLisa Aichholz NATIONAL ACCOUNT REPRESENTATIVE Work Phone: [facility] HospitalFjnazbhrur66-96-2285ouwtvdrcm virus vaccine, unspecified formulationLisa Aichholz NATIONAL ACCOUNT REPRESENTATIVE Work Phone: [facility] HospitalNyjikgirvu97-76-6613pnvtrsbie, live, intranasal, quadrivalentLisa Aichholz NATIONAL ACCOUNT REPRESENTATIVE Work Phone: [facility] HospitalAgrnohhnxh37-10-9407adihdbzgk virus vaccine, unspecified formulationGeneric ProviderSalem Memorial District HospitalUaooilyzwk68-98-9547zpcbfgthq, high dose seasonal, preservative-freeLisa Aichholz NATIONAL ACCOUNT REPRESENTATIVE Work Phone: [facility] HospitalDlefjqbxzv58-17-2748vwmduajor, injectable, quadrivalent, preservative freeLisa Aichholz NATIONAL ACCOUNT REPRESENTATIVE Work Phone: [facility] Hlakddoess71-68-1490qgvevkzkn virus vaccine, unspecified formulationEmSaint [facility] System Payers DatePayer CategoryPayerPolicy ID2019MedicaidMEDICAID [facility] MEDICAID [id number] 2019-Present [phone] [address] [place] [address] [id number] 1994Medicare [id number] [id number] 1960 [id number] 2.16.840.1.399682.3.57[id number] 2.16.840.1.803325.3.57[id number] 2.16.840.1.607303.3.57[id number] 2.16.840.1.856335.3.57[id number] 2.16.840.1.164054.3.57[id number] 2.16.840.1.448473.3.57[id number] 2.16.840.1.839279.3.57[id number] 2.16.840.1.346229.3.57[id number] 2.16.840.1.738578.3.57[id number] 2.16.840.1.033510.3.57[id number] 2.16.840.1.211344.3.57[id number] 2.16.840.1.229698.3.57[id number] 2.16.840.1.068819.3.57[id number] 2.16.840.1.520313.3.57[id number] 2.16.840.1.984964.3.579.2.1286 [id number] 1960Unknown [id number] Social History DateTypeDetailFacilityTobacco smoking status NHISTobacco smoking consumption unknownNOMS HealthcareStart: 88-80-8898Tef Assigned At BirthNot on fileNONM HealthcareStart: 10-30-2023 End: 34-13-8787Txezee identityNot on fileSALT LAKE [facility]AL [facility] HealthcareStart: 87-81-9349Kjspvli smoking status NHISEx-smokerNOMS HealthcareStart: 03-22-1984 End: 50-51-4174Kaicrnz of tobacco useCurrent smokerNOMS HealthcareStart: 03-22-1984 End: 01-49-2348Elmpofe of tobacco useCigarette SmokerNOMS HealthcareStart: 10-30-2023 End: 84-81-0086Qtfztpinry smoked current (pack per day) - Balxmdbz4CLPN HealthcareStart: 02-08-2021 End: 17-73-7981Ezxuhmo use and exposureSmokeless tobacco non-userNOMS Healthcare Start: 10-30-2023 End: 05-04-5752Tekgegn intakeCurrent drinker of alcohol (finding)[facility] Start: 94-41-9623Ejayvqv Commentcoffee more than 4 cups per dayNOMS Healthcare Within the last year, have you been afraid of your partner or ex-partner?NoNOMS HealthcareDo you belong to any clubs or organizations such as restorationist groups, unions, fraternal or athletic groups, or school groups?YesNOMS HealthcareAre you now , , , , never or living with a partner?MarriedNOMS HealthcareHow often to you have a drink containing alcohol? NeverNOFreeman Neosho HospitalStart: 36-34-5282Dig many standard drinks containing alcohol do you have on a typical day?Patient does not drinkNOMS HealthcareDo you feel stress - tense, restless, nervous, or anxious, or unable to sleep at night because yourmind is troubled all the time - these days [OSQ]Only a littleNOMS Healthcare(I/We) worried whether (my/our) food would run out before (I/we) got money to buy more.Never trueNOFreeman Neosho HospitalStart: 67-89-0330Blpuobt smoking status NHISSmokes tobacco dailyTogus [facility] Medical Center SystemStart: 33-91-6601Fpqtxdpuk beverage intakeEx-drinker (finding)[facility] SystemAre you now , , , , never or living with a partner?Living with partnerTogus VA Medical Center SystemHow often to you have a drink containing alcohol? Monthly or lessProEliza Coffee Memorial Hospital Health SystemDo you feel stress - tense, restless, nervous, or anxious, or unable to sleep at night because yourmind is troubled all the time - these days [OSQ]Not at allCritical access hospitaltart: 57-87-0932Prusmln Commentquit 4 days ago as of 12/21/20[facility] Medical Equipment Procedure CodeEquipment CodeEquipment Original TextEquipment IdentifierDatesStnt [facility] 8/6mm 6fr 30mm 135cm - [id number]: 06-12-2020 Goals DatePatient GoalDesired Activity/StatePersonal health goalComment on above: Evaluation of progress towards goal: Return home with self care and family support. Functional Status SiyaEquxoxuuinQhlqniEcsdpcsy16-67-9388Bgruhvs Health Questionnaire 2 item (PHQ- 2) [Reported][facility] Clinical Notes 10-30-2023 to 05-17-2025 Note Date & QnhsBeaeQycbxbfu30-50-8808 History of Present illness Narrative* Azul Quezada NP - 05/17/2025 5:24 PM EDTAssociated Problem(s): Pain of right hip Check xray and go from there * RACHEL ACEVEDO - 05/17/2025 3:20 PM EDT [facility] for [facility] pulmonology 02 at 2L aat Pt uses [...] tightness [facility] [place] * Azul Quezada NP - 05/17/2025 3:20 PM EDT Images from the original note were not included. Sam Carrasco is a 64 y.o. male presents with chief complaint of Hospital Follow-up HPI: TCM fu: COPD exacerbation Admitted to [facility], sent home atb, steroids, oxygen Is [...] 07/2019 CVA (cerebral vascular accident) ([facility]) Degenerative cervical disc Depression with anxiety Insomnia [...] Polyp Vocal area and Vocal Cord cyst [place] EXCISION THYROGLOSSAL DUCT CYST/SINUS Procedure:DL, e/o thyroglossal [...] for this Centrilobular emphysema (HCC) Was [facility] with dr white, now needs a new ancient art curator and needs a referral to [facility] Chest [...] EDTAssociated Problem(s): Centrilobular emphysema (HCC) 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, 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 a 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 ancient art 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 and needs a referral to [facility] Chest CT 09/14 new lung masses Current meds: albuterol, Ensifentrine, symbicort, spiriva respimat * Azul Quezada NP - 05/17/2025 6:52 AM EDTAssociated Problem(s): Terry's No current med use for this documented in this encounterSalem Memorial District HospitalZixwuvplyt60-17-2501 Instructions* Patient Instructions* Azul Quezada NP - 05/17/2025 3:20 PM EDT Refer to dr jansen lung doctor Thuy Rai xray hip documented in this encounterSalem Memorial District HospitalYvoffkhvek44-47-2564 History of Present illness Narrative* RACHEL ACEVEDO [...] as he feels this could result in [facility] damage to his lungs SUBJECTIVE: MEDICATIONS: Current [...] COVID-19 07/2019 CVA (cerebral vascular accident) ([facility]) Degenerative cervical disc Depression with anxiety Insomnia Marijuana abuse 10/30/2023 Multiple pulmonary nodules Neck mass 2014 Osteoarthritis Papule of skin 11/13/2023 Pigmented skin lesion of uncertain nature Rheumatic fever Stroke (CMS/HCC) 07/2020 Testicle lump Tourette's ([facility]/HCC) Vertebral artery occlusion Vocal cord polyp Past Surgical History: Procedure Laterality Date ADENOIDECTOMY CAROTID STENT Right 09/2019 stent, RT carotid CT GUIDED TRANSVAGINAL TRANSRECTAL FLUID DRAIN 06/09/2020 CT GUIDED TRANSVAGINAL TRANSRECTAL FLUID DRAIN 06/09/2020 OTHER SURGICAL HISTORY Removal of Polyp Vocal area and Vocal Cord cyst [place] EXCISION THYROGLOSSAL DUCT CYST/SINUS Procedure:DL, e/o thyroglossal [...] 02/15/2025 7:20 AM EDTAssociated Problem(s): Centrilobular emphysema ([facility]/HCC) Continue with pulmonology Continue with inhaler albuterol, we can try to help with PA Chest CT 09/14 new lung masses * Azul Quezada NP - 02/15/2025 7:19 AM EDTAssociated Problem(s): Depression with anxiety Current med: fluoxetine * Azul Quezada NP - 02/15/2025 7:18 AM EDTAssociated Problem(s): CVA (cerebral vascular accident) ([facility]/HCC) No focal weakness Continues as directed by neurology documented in this encounterSalem Memorial District HospitalZumxioijbl07-17-2306 Instructions* Patient Instructions* Azul Quezada NP - 02/15/2025 1:40 PM EDT Return the patient assistance medication forms and we can try to help you get the medications (inhaler) documented in this encounterSalem Memorial District HospitalJhhuhikzlb24-30-3807 History of Present illness Narrative* Azul Quezada NP - 11/16/2024 3:03 PM ESTAssociated Problem(s): COPD with acute exacerbation ([facility]) Add atb, steroids, check cxr Pt needs [...] stenosis Calcified lymph nodes Centrilobular emphysema ([facility]/HCC) COVID-19 07/2019 CVA (cerebral vascular accident) ([facility]) Degenerative cervical disc Depression with anxiety Insomnia Marijuana abuse 10/30/2023 Multiple pulmonary nodules Neck mass 2013 Osteoarthritis Papule of skin 11/13/2023 Pigmented skin lesion of uncertain nature Rheumatic fever Stroke ([facility]) 07/2020 Testicle lump Tourette's ([facility]) Vertebral artery occlusion Vocal cord polyp Past Surgical History: Procedure Laterality Date ADENOIDECTOMY CAROTID STENT Right 09/2019 stent, RT carotid CT GUIDED TRANSVAGINAL TRANSRECTAL FLUID DRAIN 06/09/2020 CT GUIDED TRANSVAGINAL TRANSRECTAL FLUID DRAIN 06/09/2020 OTHER SURGICAL HISTORY Removal of Polyp Vocal area and Vocal Cord cyst [place] EXCISION THYROGLOSSAL DUCT CYST/SINUS Procedure:DL, e/o thyroglossal [...] as directed by neurology documented in this [facility]02-25-2025 Instructions* Patient Instructions* Azul Quezada NP - 11/16/2024 2:00 PM EST Get back into see dr white No dose changes in your meds Chest xray documented in this [facility]11-25-2024 History of Present illness Narrative* Azul [...] stenosis Calcified lymph nodes Centrilobular emphysema ([facility]) COVID-19 07/2019 CVA (cerebral vascular accident) ([facility]) Degenerative cervical disc Depression with anxiety Insomnia Marijuana abuse 10/30/2023 Multiple pulmonary nodules Neck mass 2013 Osteoarthritis Papule of skin 11/13/2023 Pigmented skin lesion of uncertain nature Rheumatic fever Stroke ([facility]) 07/2020 Testicle lump Tourette's ([facility]) Vertebral artery occlusion Vocal cord polyp Past Surgical History: Procedure Laterality Date ADENOIDECTOMY CAROTID STENT Right 09/2019 stent, RT carotid CT GUIDED TRANSVAGINAL TRANSRECTAL FLUID DRAIN 06/09/2020 CT GUIDED TRANSVAGINAL TRANSRECTAL FLUID DRAIN 06/09/2020 OTHER SURGICAL HISTORY Removal of Polyp Vocal area and Vocal Cord cyst [place] EXCISION THYROGLOSSAL DUCT CYST/SINUS Procedure:DL, e/o thyroglossal [...] Relevant Orders Flu vaccine, MDCK, quadrivalent, PF ([id number]) (Flucelvax single dose syringe) (Completed) Former smoker [...] Insomnia Continue with trazodone documented in this encounterSalem Memorial District HospitalBacohwdtlb78-39-5427 Instructions* Patient Instructions* Azul Quezada NP - 08/16/2024 1:20 PM EST Great job at quitting smoking Keep follow up with dr white as directed Follow up with Vascular doctor in [place] as well as directed documented in this [facility]09-09-2024 History of Present illness Narrative* Ibeth [...] fever Stroke (CMS/HCC) 07/2020 Testicle lump Tourette's ([facility]) Vertebral artery occlusion Vocal cord polyp Social [...] Polyp Vocal area and Vocal Cord cyst [place] EXCISION THYROGLOSSAL DUCT CYST/SINUS Procedure:DL, e/o thyroglossal [...] Polyp Vocal area and Vocal Cord cyst [place] EXCISION THYROGLOSSAL DUCT CYST/SINUS Procedure:DL, e/o thyroglossal [...] Positives noted above. Remainder are negative per [facility] guidelines. OBJECTIVE: Visit Vitals BP 110/66 [...] you, Mars Torres DO documented in this encounterSalem Memorial District HospitalEndjuzszvt85-38-8496 History of Present illness Narrative* Azul Quezada [...] COVID-19 07/2019 CVA (cerebral vascular accident) ([facility]) Degenerative cervical disc Depression with anxiety Insomnia Marijuana abuse 10/30/2023 Multiple pulmonary nodules Neck mass 2014 Osteoarthritis Papule of skin 11/13/2023 Pigmented skin lesion of uncertain nature Rheumatic fever Stroke ([facility]/HCC) 07/2020 Testicle lump Tourette's (CMS/HCC) Vertebral artery occlusion Vocal cord polyp Past Surgical History: Procedure Laterality Date ADENOIDECTOMY CAROTID STENT Right 09/2019 stent, RT carotid CT GUIDED TRANSVAGINAL TRANSRECTAL FLUID DRAIN 06/09/2020 CT GUIDED TRANSVAGINAL TRANSRECTAL FLUID DRAIN 06/09/2020 OTHER SURGICAL HISTORY Removal of Polyp Vocal area and Vocal Cord cyst [place] EXCISION THYROGLOSSAL DUCT CYST/SINUS Procedure:DL, e/o thyroglossal [...] monitor at this time documented in this encounterSalem [facility] [id number] Miscellaneous Notes* Telephone Encounter - Grace Moore [...] went to but inbox was full and manual writer was unable to leave message reminder [...] if he could have it done in [place] at the [facility] facility there because he doesn't have a car and stated it would be impossible for him to make it to [place]. [employer] confirmed patient had central scheduling phone number to get the scans scheduled. * Telephone Encounter - Grace Moore RN - 01/14/2024 8:50 AM EDT Called patient and got VM but it was full so manual writer was unable to leave message reminding patient of imaging that is due. * Telephone Encounter - Grace Moore RN - 01/14/2024 8:50 AM EDT Attempted to call patient and got voicemail but manual writer was unable to leave message due to it being full. Will try again later and send letter with order via mail. * Telephone Encounter - Grace Moore RN - 01/14/2024 8:50 AM EDT Attempted to call patient and got voicemail but manual writer was unable to leave message due to it being full. Letter and order mailed to address on file. Will follow up in 1 month. * Telephone Encounter - Grace Moore RN - 01/14/2024 8:50 AM EDT Attempted to call patient and got voicemail but manual writer was unable to leave message due to it being full. [facility] Telephone encounter Note* Telephone Encounter - Grace Moore RN - 01/14/2024 8:50 AM EDT Per January 2024 recall, patient is due for routine CUS imaging per Dr. Terrell. Please call to remind patient and provide central scheduling number if needed. Will call with results once completed. [facility]04-[facility] Telephone encounter Note* Telephone Encounter - Grace Moore RN - 01/14/2024 8:50 AM EDT Called patient, call went to but inbox was full and manual writer was unable to leave message reminder for imaging. Will try again later. [facility]04-24-[facility] Telephone encounter Note* Telephone Encounter - Ashwini Jones - 01/14/2024 8:50 AM EDT Received call today 01/14/24 1:05 from patient in regard to previous message and I informed him of clinical staff's messages below - he voiced understanding and I provided him with Central Scheduling phone# to schedule imaging. [facility]04-24-[facility] Telephone encounter Note* Telephone Encounter - Grace Moore RN - 01/14/2024 8:50 AM EDT Called patient and reminded of imaging that is due. He stated understanding and asked if he could have it done in [place] at the [facility] facility there because he doesn't have a car and stated it would be impossible for him to make it to [place]. [employer] Operator confirmed patient had central scheduling phone number to get the scans scheduled. [facility]04-[facility] Telephone encounter Note* Telephone Encounter - Grace Moore RN - 01/14/2024 8:50 AM EDT Called patient and got but it was full so manual writer was unable to leave message reminding patient of imaging that is due. [facility]04-[facility] Telephone encounter Note* Telephone Encounter - Grace Moore RN - 01/14/2024 8:50 AM EDT Attempted to call patient and got voicemail but manual writer was unable to leave message due to it being full. Will try again later and send letter with order via mail. [facility] [employer] [id number] Telephone encounter Note* Telephone Encounter - Grace Moore RN - 01/14/2024 8:50 AM EDT Attempted to call patient and got voicemail but manual writer was unable to leave message due to it being full. Letter and order mailed to address on file. Will follow up in 1 month. [facility] [employer] [id number] Telephone encounter Note* Telephone Encounter - Grace Moore RN - 01/14/2024 8:50 AM EDT Attempted to call patient and got voicemail but manual writer was unable to leave message due to it being full. [facility] [id number] History of Present illness Narrative* Azul Quezada [...] stenosis Calcified lymph nodes Centrilobular emphysema ([facility]/HCC) COVID-19 07/2019 CVA (cerebral vascular accident) ([facility]) Degenerative cervical disc Depression with anxiety Insomnia Marijuana abuse 10/30/2023 Multiple pulmonary nodules Neck mass 2013 Osteoarthritis Papule of skin Pigmented skin lesion of uncertain nature Rheumatic fever Stroke ([facility]) 07/2020 Testicle lump Tourette's ([facility]) Vertebral artery occlusion Vocal cord polyp Past Surgical History: Procedure Laterality Date ADENOIDECTOMY CAROTID STENT Right 09/2019 stent, RT carotid CT GUIDED TRANSVAGINAL TRANSRECTAL FLUID DRAIN 06/09/2020 CT GUIDED TRANSVAGINAL TRANSRECTAL FLUID DRAIN 06/09/2020 OTHER SURGICAL HISTORY Removal of Polyp Vocal area and Vocal Cord cyst WA EXCISION THYROGLOSSAL DUCT CYST/SINUS Procedure:DL, e/o thyroglossal [...] PSA level- Primary documented in this encounter [facility] HealthcareEvaluation note* Diagnosis Depression with anxiety Dysthymic disorder Insomnia, unspecified Mixed hyperlipidemia (CMS/HCC) Mixed hyperlipidemia documented in this encounter [facility]* Diagnosis Internal carotid artery stenosis, right- Primary documented in this encounter [facility] SystemEvaluation note* Diagnosis Influenza- Primary [...] facility Routine general [facility] Depression with anxiety- Primary Dysthymic [...] encounter [facility] HealthcareInstructionsNot on filedocumented in this encounterProMedica Bay Park HospitalReason for referral (narrative)* Consultation (Routine) - Pending ReviewSpecialtyDiagnoses / ProceduresReferred By ContactReferred To Contact General Surgery Diagnoses Sessile colonic polyp Procedures [place] OFFICE/OUTPATIENT [facility] 60 MINUTES Azul Quezada, ORACIO [address] [place] [address] Ibeth Torres DO [address] [facility] [address] [place] [address] Referral IDStatusReasonStart DateExpiration DateVisits RequestedVisits [id number] Review Specialty Services Required [id number] [facility] Summary Purpose Family History No [...] Vas carotid duplex bilateral Andrew Terrell MD [address] [place] [address], [address], [address] [place] [address] Referral IDStatusReasonStart DateExpiration DateVisits RequestedVisits [id number] Review/ Additional Source Comments (unrecognized sect ion and content) No Status Records FoundNo Status Records FoundNo Status Records FoundNo Status Records FoundNo Status Records FoundNo Status Records Found INFORMATION SOURCE (unrecogn ized section and content) DATE CREATED AUTHOR 09/04/2019 [facility] DATE CREATED AUTHOR AUTHOR'S ORGANIZ ATION 09/30/2022 [facility] DATE CREATED AUTHOR AUTHOR'S ORGANIZ ATION 05/19/2025 [facility] DATE CREATED AUTHOR AUTHOR'S ORGANIZ ATION 07/14/2025 [facility] DATE CREATED AUTHOR AUTHOR'S ORGANIZ ATION 07/14/2025 [facility] DATE CREATED AUTHOR AUTHOR'S ORGANIZ ATION 07/14/2025 [facility] Care Teams (unrecognized sec tion and content) Team MemberRelationshipSpecialtyStart DateEnd Date Kiko Zurita MD PCP - GeneralFamily Medicine04/07/23 Azul Quezada NP [address] [place] [address] Referring PhysicianNurse Practitioner04/07/23Team MemberRelationshipSpecialty Start DateEnd Date Kiko Zurita MD [address] [place] [address] [facility] - [facility]/23 Azul Quezada NP [address] [place] [address] Referring PhysicianNurse Practitioner04/07/23Team MemberRelationshipSpecialty Start DateEnd Date Kiko Zurita MD [address] [place] [address] PCP - [facility]10/24/23 Azul Quezada NP [address] [place] [address] Referring PhysicianNurse Practitioner04/07/23Team MemberRelationshipSpecialty Start DateEnd Date Kiko Zurita MD [address] [place] [address] [facility]/24/23 Azul Quezada NP [address] [place] [address] Referring PhysicianNurse Practitioner04/07/23Team MemberRelationshipSpecialty Start DateEnd Date Kiko Zurita MD [address] [place] [address] PCP - Generalmily Medicine10/24/23 Azul Quezada NP [address] [place] [address] Referring PhysicianNurse Practitioner04/07/23Team MemberRelationshipSpecialty Start DateEnd Date Kiko Zurita MD [address] [place] [address] [facility]10/24/23 Azul Quezada NP [address] [place] [address] Referring PhysicianNurse Practitioner04/07/23Team MemberRelationshipSpecialty Start DateEnd Date Kiko Zurita MD [address] [place] [address] [facility]10/24/23 Azul Quezada NP [address] [place] [address] Referring PhysicianNurse Practitioner04/07/23Team MemberRelationshipSpecialty Start DateEnd Date Kiko Zurita MD [address] [place] [address] [facility]/24/23 Azul Quezada NP [address] [place] [address] Referring PhysicianNurse Practitioner04/07/23Team MemberRelationshipSpecialty Start DateEnd Date Kiko Zurita MD [address] [place] [address] PCP - GeneralFamily Medicine10/24/23 Azul Quezada NP [address] [place] [address] Referring PhysicianNurse Practitioner04/07/23Team MemberRelationshipSpecialty Start DateEnd Date Kiko Zurita MD [address] [place] [address] [facility]10/24/23 Azul Quezada NP [address] [place] [address] Referring PhysicianNurse Practitioner04/07/23Team MemberRelationshipSpecialty Start DateEnd Date Kiko Zurita MD [address] [place] [address] PCP - GeneralFamily Medicine10/24/23 Azul Quezada NP [address] [place] [address] Referring PhysicianNurse Practitioner04/07/23Team MemberRelationshipSpecialty Start DateEnd Date Azul Quezada, ATHLETIC FIELD CUSTODIAN-[facility] [address] [place] [address] PCP - GeneralNurse Errtkukcalqq53/9/19Team MemberRelationshipSpecialtyStart Date End Date Kiko Zurita MD [address] [place] [address] PCP - [facility]10/24/23 Azul Quezada NP [address] [place] [address] [facility] Azul Quezada NP [address] [place] [address] Referring PhysicianNurse Practitioner04/07/23Team MemberRelationshipSpecialty Start DateEnd Date Kiko Zurita MD [address] [place] [address] PCP - [facility]10/24/23 Azul Quezaad NP [address] [place] [address] [facility]10/29/24 Azul Quezada NP [address] [place] [address] Referring PhysicianNurse Practitioner04/07/23Team MemberRelationshipSpecialty Start DateEnd Date Kiko Zurita MD [address] [place] [address] PCP - [facility]10/24/23 Azul Quezada NP [address] [place] [address] PCP - [facility]10/29/24 Azul Quezada NP [address] [place] [address] Referring PhysicianNurse Practitioner04/07/23Te MemberRelationshipSpecialty Start DateEnd Date Kiko Zurita MD [address] [place] [address] PCP - [facility]10/24/23 Azul Quezada NP [address] [place] [address] PCP - [facility]10/29/24 Azul Quezada NP [address] [place] [address] Referring PhysicianNurse Practitioner04/07/23Te MemberRelationshipSpecialty Start DateEnd Date Kiko Zurita MD [address] [place] [address] [facility]/24/23 Azul Quezada NP [address] [place] [address] PCP - [facility]10/29/24 Azul Quezada NP [address] [place] [address] Referring PhysicianNurse Practitioner04/07/23Team MemberRelationshipSpecialty Start DateEnd Date Kiko Zurita MD [address] [place] [address] PCP - GeneralFamily Medicine10/24/23 Azul Quezada NP [address] [place] [address] PCP - [facility]10/29/24 Azul Quezada NP [address] [place] [address] Referring PhysicianNurse Practitioner04/07/23Team MemberRelationshipSpecialty Start DateEnd Date Kiko Zurita MD [address] [place] [address] PCP - GeneralFamily Medicine10/24/23 Azul Quezada NP [address] [place] [address] PCP - [facility]10/29/24 Azul Quezada NP [address] [place] [address] Referring PhysicianNurse Practitioner04/07/23Team MemberRelationshipSpecialty Start DateEnd Date Kiko Zurita MD [address] [place] [address] PCP - GeneralFamily Medicine10/24/23 Azul Quezada NP [address] [place] [address] PCP - [facility]10/29/24 Azul Quezada NP [address] [place] [address] Referring PhysicianNurse Practitioner04/07/23Team MemberRelationshipSpecialty Start DateEnd Date Kiko Zurita MD [facility]/24/23 Azul Quezada NP [address] [place] [address] PCP - [facility]10/29/24 Azul Quezada [...] BE BASED ON THE PRIMARY CLINICAL RECORDS. [employer] provides no warranty or guarantee of the accuracy or completeness of information in this document.
[2025-08-10] MEDS: ENOXAPARIN SODIUM 40 MG/0.4 ML SYRINGE SUBQ (23:58)
[2025-08-10] MEDS: TRAZODONE HCL 50 MG TABLET PO (23:59)
[2025-08-10] MEDS: ATORVASTATIN CALCIUM 40 MG TABLET PO (23:59)
[2025-08-11] VITALS (26 sets, daily range): BP systolic 107–138; BP diastolic 65–77; PULSE 65–102; TEMP 36.4–36.6; O2SAT 90–93
[2025-08-11] MEDS: METHYLPREDNISOLONE SOD SUCC PF 40 MG/ML VIAL IVP ×2 (05:19→18:11)
[2025-08-11 05:30] LABS: Hematocrit 36.1 % (42.0-54.0); Hemoglobin 11.3 g/dL (14.0-18.0); Immature Granulocytes Abs Auto 0.05 10^3/uL (0.00-0.03); Immature Granulocytes Pct Auto 0.6 % (0.0-0.5); Lymphocytes Absolute Auto 0.4 10^3/uL (1.2-3.8); Mean Corpuscular HGB Conc 31.3 g/dL (29.9-35.2); Mean Corpuscular Hemoglobin 29.4 pg (25.9-34.0); Mean Corpuscular Volume 93.8 fL (80.0-94.0); Platelet Count 280 10^3/uL (150-450); Red Blood Count 3.85 10^6/uL (4.70-6.10); White Blood Count 8.8 10^3/uL (4.0-11.0)
[2025-08-11 05:52] LABS: Anion Gap 8.5; Blood Urea Nitrogen 15.0 mg/dL (7.0-18.0); Calcium 8.9 mg/dL (8.5-10.1); Carbon Dioxide 30.1 mmol/L (21.0-32.0); Chloride 107 mmol/L (98-107); Estimated GFR (African America >60 (>=60 mL/min/1.73m^2); Estimated GFR (Non-African Ame >60 (>=60 mL/min/1.73m^2); Glucose 146 mg/dL (74-106); Potassium 4.6 mmol/L (3.5-5.1); Sodium 141 mmol/L (136-145)
[2025-08-11] MEDS: ALBUTEROL SULFATE 2.5 MG/3 ML VIAL NEB IH ×2 (06:41→23:52)
[2025-08-11] MEDS: ENOXAPARIN SODIUM 40 MG/0.4 ML SYRINGE SUBQ (08:29)
[2025-08-11] MEDS: LOSARTAN POTASSIUM 25 MG TABLET PO (08:29)
[2025-08-11] MEDS: ASPIRIN 81 MG TABLET.DR PO (08:29)
--- NOTE | 2025-08-11 08:30 | CM.NOTE ---
Rounds made with Dr. Watkins, discussed plan of care with pt. Pt does have home oxygen, pt on 3L NC at this time. Continue treatment as ordered. No discharge today.
--- NOTE | 2025-08-11 09:36 | SWNOTE1 ---
Pt does have home oxygen from [facility]. SW called [facility] and spoke with Suha. Suha confirmed he does get home oxygen at 2 liters continuous from them.
[2025-08-11] MEDS: IPRATROPIUM/ALBUTEROL SULFATE 3 ML AMPUL.NEB IH ×3 (09:45→19:09)
--- NOTE | 2025-08-11 11:00 | PM.HP ---
HPI H&P: HPI History of Present Illness Chief complaint: COPD EXACERBATION Narrative: Mr. Carrasco is a 65-year-old gentleman with a known diagnosis of COPD and hypoxic respiratory failure on 3 L. Patient came in with progressive cough, congestion, severe wheezing and shortness of breath. No chest pain or palpitation. No abdominal pain, nausea or vomiting. No fever or chills. The cough is productive to greenish-brownish sputum. Opioid HPI Opioid Management Most Recent Pain and Opioid Data: Last Pain Scale 0 05/11/25, 09:02 Last Pain Assessment Today, 10:06 Last ORT Total Score 3 08/10/25, 23:36 Last ORT Risk Category Low Risk 08/10/25, 23:36 Review of Systems ROS Status of ROS 10 or more systems reviewed and unremarkable except as noted in history and below [facility] Medical History (Updated 08/11/25 @ 03:22 by Mary Zamudio MD) History of common carotid artery stent placement ?Z98.890 - Other specified postprocedural states (ICD-10) ?Z95.828 - Presence of other vascular implants and grafts (ICD-10) 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 - Polyp of vocal cord and larynx (ICD-10) Vertebral artery occlusion ?I65.09 - Occlusion and stenosis of unspecified vertebral artery (ICD-10) Tourette's ?F95.2 - Tourette's disorder (ICD-10) Testicle lump ?N50.89 - Other specified disorders of the male genital organs (ICD-10) Rheumatic fever ?I00 - Rheumatic fever without heart involvement (ICD-10) Pigmented skin lesion of uncertain nature ?L81.9 - Disorder of pigmentation, unspecified (ICD-10) Papule of skin ?R23.8 - Other skin changes (ICD-10) Osteoarthritis ?M19.90 - Unspecified osteoarthritis, unspecified site (ICD-10) Neck mass ?R22.1 - Localized swelling, mass and lump, neck (ICD-10) Multiple pulmonary nodules ?R91.8 - Other nonspecific abnormal finding of lung field (ICD-10) Marijuana abuse ?F12.10 - Cannabis abuse, uncomplicated (ICD-10) Insomnia ?G47.00 - Insomnia, unspecified (ICD-10) Degenerative cervical disc ?M50.30 - Other cervical disc degeneration, unspecified cervical region (ICD-10) CVA (cerebral vascular accident) ?I63.9 - Cerebral infarction, unspecified (ICD-10) COVID-19 ?U07.1 - COVID-19 (ICD-10) Centrilobular emphysema ?J43.2 - Centrilobular emphysema (ICD-10) Calcified lymph nodes ?I89.8 - Other specified noninfective disorders of lymphatic vessels and lymph nodes (ICD-10) Bilateral carotid artery stenosis ?I65.23 - Occlusion and stenosis of bilateral carotid arteries (ICD-10) Allergic rhinitis ?J30.9 - Allergic rhinitis, unspecified (ICD-10) Alcohol abuse ?F10.10 - Alcohol abuse, uncomplicated (ICD-10) Anxiety ?F41.9 - Anxiety disorder, unspecified (ICD-10) Cerebrovascular disease ?I67.9 - Cerebrovascular disease, unspecified (ICD-10) COPD (chronic obstructive pulmonary disease) ?J44.9 - Chronic obstructive pulmonary disease, unspecified (ICD-10) Depression, unspecified ?F32.A - Depression, unspecified (ICD-10) Dyslipidemia ?E78.5 - Hyperlipidemia, unspecified (ICD-10) 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 - Other diseases of vocal cords (ICD-10) Surgical History (Updated 06/08/24 @ 11:14 by Lidia Fontanez) History of vocal cord polypectomy ?Z98.890 - Other specified postprocedural states (ICD-10) H/O adenoidectomy ?Z90.89 - Acquired absence of other organs (ICD-10) History of tonsillectomy ?Z90.89 - Acquired absence of other organs (ICD-10) Family History (Updated 06/15/24 @ 06:35 by Cira Palacio RN) Mother Family history of CHF (congestive heart failure) Family history of COPD (chronic obstructive pulmonary disease) Hypertension Sister Family history of diabetes mellitus Father Family history of cancer Other Family history of myocardial infarction Social History (Updated 08/10/25 @ 23:33 by Kira Johnson) Within the past year, how often did you have a drink containing alcohol: never Within the past year, how often did you have six or more drinks on one occasion: never Score interpretation: A score less than 4 is consistent with normal alcohol consumption. Smoking status: Former smoker Second hand tobacco smoke exposure: No Non-prescribed substance use: former substance user Non-prescribed substance use details: doesn't use anymore Previous occupational history: retired Known occupational exposures/hazards: No Highest level of school completed/degree received: high school graduate Are you now , , , , never or living with a partner: living with partner In a typical week, how many times do you talk on the telephone with family, friends, or neighbors: 3 or more times per week How often do you get together with friends or relatives: 3 or more times per week How often do you attend mandaeism or scientology services: 1-3 times per year Do you belong to any clubs or organizations such as mandaeism groups unions, [employer] or athletic groups, or school groups: no Total score: 2 Score interpretation: A score of greater than or equal to 2 indicates the lowest level of social isolation. Little interest or pleasure in doing things: not at all Feeling down, depressed, or hopeless: not at all Feel stressed/tense/nervous/anxious/difficulty sleeping: not at all Due to disability, difficulty making decisions: No Do you think of yourself as: straight/heterosexual Gender Identity: male Meds Home Medications and Allergies Home Medications ?Medication ?Instructions ?Recorded ?Confirmed ?Type aspirin 81 mg tablet,delayed 81 mg PO DAILY previous stroke 09/21/23 08/10/25 History release atorvastatin 40 mg tablet 40 mg PO .qhs 09/21/23 08/10/25 History trazodone 50 mg tablet 50 mg PO .QHS 09/21/23 08/10/25 History albuterol sulfate 90 mcg/actuation 2 inh inhalation Q4H PRN shortness 05/11/25 08/10/25 Rx aerosol inhaler of breath or wheezing #1 g fluticasone 250 mcg-salmeterol 50 1 inh inhalation BID #60 ea 05/11/25 08/10/25 Rx mcg/dose blistr powdr for inhalation (Advair Diskus) ipratropium 0.5 mg-albuterol 3 mg 3 ml inhalation Q4H PRN shortness 05/11/25 08/10/25 Rx (2.5 mg base)/3 mL nebulization of breath or wheezing #180 mL soln losartan 25 mg tablet 25 mg PO DAILY #30 tabs 05/11/25 08/10/25 Rx ondansetron 4 mg disintegrating 4 mg PO Q6H PRN nausea and 07/23/25 08/10/25 Rx tablet vomiting #20 tabs polyethylene glycol 3350 17 17 g PO DAILY 4 days #68 grams 07/23/25 08/10/25 Rx gram/dose oral powder (Miralax) ticagrelor 90 mg tablet 90 mg PO Q12H 08/11/25 08/11/25 History Allergies Allergy/AdvReac Type Severity Reaction Status Date / Time bee venom protein (honey bee) Allergy Severe Anaphylaxis Verified 08/10/25 20:12 Exam Narrative Exam Narrative: [pt is awake and alert. oriented to place, time and person, mildly tachypneic HEENT: [place] conjunctiva and NL buccal mucosa Neck: Supple, no tenderness Endocrine: No Thyromegaly. Vascular: No JVD or carotid bruit. Lymphatic: No cervical lymphadenopathy. Chest: Bilateral wheezing or rhonchi. Heart RRR, no extra sound or murmur. Abd: Soft, no tenderness, no rebound and no rigidity. Increase abd girth therefore clinically I could not exclude the possibility of intra abd mass or organomegaly. LE: No cyanosis or clubbing, no varices or edema. Neuro: A A O. Nl speech, comprehension and attention. Left arm is weak from recent stroke. Able to lift up against gravity, unable to lift up against resistance. Not worse than had been []] Constitutional Vital Signs, click to edit/add: Last Vital Signs Temp 97.9 F 08/11/25 07:56 Pulse 100 H 08/11/25 10:00 Resp 14 08/11/25 07:56 BP 137/75 08/11/25 07:56 Pulse Ox 91 L 08/11/25 09:48 O2 Del Method Nasal Cannula 08/11/25 09:48 O2 Flow Rate 3 08/11/25 09:48 Results Labs Labs: Short CBC 08/10/25 08/11/25 Range/Units 20:35 05:17 WBC 12.6 H 8.8 (4.0-11.0) 10^3/uL Hgb 12.1 L 11.3 L (14.0-18.0) g/dL Hct 38.7 L 36.1 L (42.0-54.0) % Plt Count 333 280 (150-450) 10^3/uL BMP 08/10/25 08/11/25 20:35 05:17 Sodium 143 141 Potassium 4.0 4.6 Chloride 106 107 Carbon Dioxide 32.6 H 30.1 BUN 15.0 15.0 Creatinine 0.78 0.66 L Glucose 148 H 146 H Calcium 8.7 8.9 Liver Function 08/10/25 Range/Units 20:35 Total Bilirubin 0.6 (0.2-1.0) mg/dL AST 17 (15-37) U/L ALT 29 (16-63) U/L Alkaline Phosphatase 73 (46-116) U/L Albumin 3.5 (3.4-5.0) g/dL ABG ABG results: 08/10/25 20:05 ABG pH 7.385 ABG pCO2 50.8 H* ABG pO2 70.4 L ABG HCO3 30.3 H ABG O2 Saturation 94.6 ABG Base Excess 5.3 H Assessment and Plan Assessment and Plan (1) Acute exacerbation of chronic obstructive pulmonary disease: Plan Acute COPD exacerbation Acute bronchitis. Cough is productive to brownish-greenish sputum. Chronic hypoxic respiratory failure. Patient is on 3 L at home. Chest x-ray showed no active disease. Chest exam revealed bilateral wheezing and rhonchi. I start the patient on albuterol, Atrovent, Solu-Medrol, ceftriaxone and Zithromax. Continue to monitor condition and proceed with additional needed diagnostic and therapeutic intervention as deemed to be appropriate Recent stroke with left arm weakness. Patient uses a walker at home. Recent carotid stenting. Continue dual antiplatelet therapy. Continue blood pressure management. Hypertension Continue losartan DVT prophylaxis Lovenox subcu Increased risk of lung cancer due to previous lung history of smoking Recommend yearly low-dose radiation CAT scan of the chest to screen for lung cancer to be arranged by PCP yearly. Chronic, subacute medical conditions not listed above, abnormal labs and imaging, incidental findings seen on labs and or imaging. These would need to be addressed. Could be addressed later on or in the outpatient setting by PCP collaboration with other needed outpatient providers when time and condition are appropriate.
[2025-08-11] MEDS: AZITHROMYCIN 250 MG TABLET 500 MG PO (11:28)
[2025-08-11] MEDS: TICAGRELOR 90 MG TABLET PO ×2 (11:28→20:31)
--- NOTE | 2025-08-11 12:36 | SWNOTE1 ---
SW met with pt to discuss any discharge needs. Pt lives at home alone. Pt has his sister and other friends he can contact if he needs anything. Pt uses a cane at home, has walker as well. Pt did talk with SW with his frustrations with his lungs and not being able to do what he used to do. Pt does go to see a Nurse Monitoring in August. Pt then spoke about [facility] services coming in to the home and being there yesterday to assist with showering. Pt also let SW know he has [facility] coming in to do therapy with him. Pt previously had a stroke and still recovering from it. At this time pt's plan is to return home at discharge and resume his services. SW to call [facility] and [facility]. JALIL called [facility] and spoke to Candy. Candy confirmed he is a current pt and they are aware he is at hospital. SW to send updates.
--- NOTE | 2025-08-11 15:03 | SWNOTE1 ---
Important Message from [employer] reviewed and discussed with patient. Pt. verbalized understanding and signed the form. Original given to patient and copy placed in patient?s chart.
[2025-08-11] MEDS: SENNOSIDES/DOCUSATE SODIUM 1 TAB TABLET PO (20:31)
[2025-08-11] MEDS: ATORVASTATIN CALCIUM 40 MG TABLET PO (21:43)
[2025-08-11] MEDS: TRAZODONE HCL 50 MG TABLET PO (21:43)
[2025-08-12] VITALS (20 sets, daily range): BP systolic 112–176; BP diastolic 69–87; PULSE 73–103; TEMP 36.4–36.6; O2SAT 87–90
[2025-08-12] MEDS: ALBUTEROL SULFATE 2.5 MG/3 ML VIAL NEB IH (04:42)
[2025-08-12] MEDS: METHYLPREDNISOLONE SOD SUCC PF 40 MG/ML VIAL IVP ×2 (05:10→17:17)
[2025-08-12] MEDS: ENOXAPARIN SODIUM 40 MG/0.4 ML SYRINGE SUBQ (09:16)
[2025-08-12] MEDS: ASPIRIN 81 MG TABLET.DR PO (09:17)
[2025-08-12] MEDS: TICAGRELOR 90 MG TABLET PO ×2 (09:17→23:22)
[2025-08-12] MEDS: AZITHROMYCIN 250 MG TABLET PO (09:17)
[2025-08-12] MEDS: LOSARTAN POTASSIUM 25 MG TABLET PO (09:17)
[2025-08-12] MEDS: IPRATROPIUM/ALBUTEROL SULFATE 3 ML AMPUL.NEB IH ×3 (09:57→20:15)
--- NOTE | 2025-08-12 10:09 | RESP.RT ---
Patient just up to bathroom
--- NOTE | 2025-08-12 11:20 | PM.PN ---
Progress Note: Subjective Subjective Interval history: Patient is feeling better. He continues to cough copious amount of greenish sputum. No chest pain. No abdominal pain. Exam Narrative Exam Narrative: [pt is awake and alert. oriented to place, time and person, resolution of his tachypnea. HEENT: [place] conjunctiva and NL buccal mucosa Neck: Supple, no tenderness Endocrine: No Thyromegaly. Vascular: No JVD or carotid bruit. Lymphatic: No cervical lymphadenopathy. Chest: Improvement of bilateral wheezing or rhonchi. Heart RRR, no extra sound or murmur. Abd: Soft, no tenderness, no rebound and no rigidity. Increase abd girth therefore clinically I could not exclude the possibility of intra abd mass or organomegaly. LE: No cyanosis or clubbing, no varices or edema. Neuro: A A O. Nl speech, comprehension and attention. Left arm is weak from recent stroke. Able to lift up against gravity, unable to lift up against resistance. Not worse than had been []] Constitutional Vital Signs, click to edit/add: Last Vital Signs Temp 97.5 F L 08/12/25 08:09 Pulse 86 08/12/25 10:00 Resp 24 H 08/12/25 09:57 BP 150/69 H 08/12/25 08:09 Pulse Ox 90 L 08/12/25 09:57 O2 Del Method Nasal Cannula 08/12/25 09:57 O2 Flow Rate 3 08/12/25 09:57 Progress Note: A&P Assessment and Plan (1) Acute exacerbation of chronic obstructive pulmonary disease: Plan Acute COPD exacerbation Acute bronchitis. Cough is productive to brownish-greenish sputum. Chronic hypoxic respiratory failure. Patient is on 3 L at home. Chest x-ray showed no active disease. Chest exam revealed bilateral wheezing and rhonchi. I start the patient on albuterol, Atrovent, Solu-Medrol, ceftriaxone and Zithromax. Continue to monitor condition and proceed with additional needed diagnostic and therapeutic intervention as deemed to be appropriate Much improved since admission Continue current treatment. Serial cultures pending. Recent stroke with left arm weakness. Patient uses a walker at home. Recent carotid stenting. Continue dual antiplatelet therapy. Continue blood pressure management. Hypertension Continue losartan Blood pressure is high this morning. Added 1 dose of Lasix. DVT prophylaxis Lovenox subcu Increased risk of lung cancer due to previous lung history of smoking Recommend yearly low-dose radiation CAT scan of the chest to screen for lung cancer to be arranged by PCP yearly. Chronic, subacute medical conditions not listed above, abnormal labs and imaging, incidental findings seen on labs and or imaging. These would need to be addressed. Could be addressed later on or in the outpatient setting by PCP collaboration with other needed outpatient providers when time and condition are appropriate.
[2025-08-12] MEDS: FUROSEMIDE 20 MG/2 ML VIAL IVP ×2 (12:09→23:22)
--- NOTE | 2025-08-12 12:42 | CM.NOTE ---
Rounds made with Dr. Watkins, discussed plan of care with pt. Continue treatment as ordered. No discharge today.
--- NOTE | 2025-08-12 14:48 | SWNOTE1 ---
Pt is not ready for discharge today. JALIL faxed updated physician note to [facility]. JALIL took packet to the floor for nurse to send discharge orders to [facility] once he is stable for discharge.
[2025-08-12] MEDS: TRAZODONE HCL 50 MG TABLET PO (23:22)
[2025-08-12] MEDS: ATORVASTATIN CALCIUM 40 MG TABLET PO (23:22)
[2025-08-13] VITALS (22 sets, daily range): BP systolic 112–156; BP diastolic 62–75; PULSE 74–95; TEMP 36.3–36.6; O2SAT 88–95
[2025-08-13] MEDS: ALBUTEROL SULFATE 2.5 MG/3 ML VIAL NEB IH ×2 (01:03→13:40)
[2025-08-13] MEDS: GUAIFENESIN 200 MG/DEXTROMETHORPHAN 20 MG 10 ML UNIT DOSE CUP PO (03:43)
[2025-08-13] MEDS: METHYLPREDNISOLONE SOD SUCC PF 40 MG/ML VIAL IVP ×2 (06:29→17:14)
[2025-08-13] MEDS: LOSARTAN POTASSIUM 25 MG TABLET PO (08:03)
[2025-08-13] MEDS: TICAGRELOR 90 MG TABLET PO ×2 (08:03→21:57)
[2025-08-13] MEDS: ASPIRIN 81 MG TABLET.DR PO (08:03)
[2025-08-13] MEDS: AZITHROMYCIN 250 MG TABLET PO (08:04)
[2025-08-13] MEDS: IPRATROPIUM/ALBUTEROL SULFATE 3 ML AMPUL.NEB IH ×3 (09:05→20:33)
--- NOTE | 2025-08-13 09:41 | P.PN_ITS ---
Progress Note: Subjective Subjective Interval history: Patient is feeling better. He continues to cough copious amount of greenish sputum. No chest pain. No abdominal pain. Exam Narrative Exam Narrative: [pt is awake and alert. oriented to place, time and person, resolution of his tachypnea. HEENT: [place] conjunctiva and NL buccal mucosa Neck: Supple, no tenderness Endocrine: No Thyromegaly. Vascular: No JVD or carotid bruit. Lymphatic: No cervical lymphadenopathy. Chest: Some improvement of bilateral wheezing or rhonchi. Heart RRR, no extra sound or murmur. Abd: Soft, no tenderness, no rebound and no rigidity. Increase abd girth therefore clinically I could not exclude the possibility of intra abd mass or organomegaly. LE: No cyanosis or clubbing, no varices or edema. Neuro: A A O. Nl speech, comprehension and attention. Left arm is weak from recent stroke. Able to lift up against gravity, unable to lift up against resistance. Not worse than had been []] Constitutional Vital Signs, click to edit/add: Last Vital Signs Temp 97.4 F L 08/13/25 07:45 Pulse 86 08/13/25 09:08 Resp 20 08/13/25 09:08 BP 131/73 08/13/25 07:45 Pulse Ox 88 L 08/13/25 09:08 O2 Del Method Nasal Cannula 08/13/25 09:10 O2 Flow Rate 4 08/13/25 09:10 Progress Note: A&P Assessment and Plan (1) Acute exacerbation of chronic obstructive pulmonary disease: Plan Acute COPD exacerbation Acute bronchitis. Cough is productive to brownish-greenish sputum. Chronic hypoxic respiratory failure. Patient is on 3 L at home. BNP is normal. Chest x-ray showed no active disease. Chest exam revealed bilateral wheezing and rhonchi. I start the patient on albuterol, Atrovent, Solu-Medrol, ceftriaxone and Zithromax. I added Pulmicort today twice a day to help with bronchial inflammation. Recent stroke with left arm weakness. Patient uses a walker at home. Recent carotid stenting. Continue dual antiplatelet therapy. Continue blood pressure management. Hypertension Continue losartan Blood pressure is high this morning. Added 1 dose of Lasix. DVT prophylaxis Lovenox subcu Increased risk of lung cancer due to previous lung history of smoking Recommend yearly low-dose radiation CAT scan of the chest to screen for lung cancer to be arranged by PCP yearly. Chronic, subacute medical conditions not listed above, abnormal labs and imaging, incidental findings seen on labs and or imaging. These would need to be addressed. Could be addressed later on or in the outpatient setting by PCP collaboration with other needed outpatient providers when time and condition are appropriate. Urinary Catheter Management Urinary Catheter Management Pure Wick: Cath placed during this visit: yes Urethral indwelling: No Insertion date: 08/12/25 Insertion time: 13:36
[2025-08-13] MEDS: FUROSEMIDE 20 MG/2 ML VIAL IVP ×3 (10:04→21:57)
[2025-08-13] MEDS: BUDESONIDE 0.5 MG/2 ML AMPULE NEB IH (20:33)
[2025-08-13] MEDS: TRAZODONE HCL 50 MG TABLET PO (21:57)
[2025-08-13] MEDS: ATORVASTATIN CALCIUM 40 MG TABLET PO (21:57)
[2025-08-14] VITALS (22 sets, daily range): BP systolic 123–127; BP diastolic 57–73; PULSE 71–108; TEMP 36.3–36.7; O2SAT 91–96
[2025-08-14] MEDS: ALBUTEROL SULFATE 2.5 MG/3 ML VIAL NEB IH (01:00)
[2025-08-14] MEDS: METHYLPREDNISOLONE SOD SUCC PF 40 MG/ML VIAL IVP ×2 (06:36→17:59)
[2025-08-14 06:42] LABS: Hematocrit 40.5 % (42.0-54.0); Hemoglobin 12.8 g/dL (14.0-18.0); Mean Corpuscular HGB Conc 31.6 g/dL (29.9-35.2); Mean Corpuscular Hemoglobin 29.5 pg (25.9-34.0); Mean Corpuscular Volume 93.3 fL (80.0-94.0); Platelet Count 339 10^3/uL (150-450); Red Blood Count 4.34 10^6/uL (4.70-6.10); White Blood Count 14.4 10^3/uL (4.0-11.0)
[2025-08-14 06:57] LABS: Anion Gap 12.8; Blood Urea Nitrogen 22.0 mg/dL (7.0-18.0); Calcium 9.0 mg/dL (8.5-10.1); Carbon Dioxide 32.8 mmol/L (21.0-32.0); Chloride 99 mmol/L (98-107); Estimated GFR (African America >60 (>=60 mL/min/1.73m^2); Estimated GFR (Non-African Ame >60 (>=60 mL/min/1.73m^2); Glucose 111 mg/dL (74-106); Potassium 3.6 mmol/L (3.5-5.1); Sodium 141 mmol/L (136-145)
[2025-08-14] MEDS: AZITHROMYCIN 250 MG TABLET PO ×2 (08:40→10:44)
[2025-08-14] MEDS: LOSARTAN POTASSIUM 25 MG TABLET PO (08:40)
[2025-08-14] MEDS: ENOXAPARIN SODIUM 40 MG/0.4 ML SYRINGE SUBQ (08:40)
[2025-08-14] MEDS: TICAGRELOR 90 MG TABLET PO ×2 (08:40→21:08)
[2025-08-14] MEDS: ASPIRIN 81 MG TABLET.DR PO (08:40)
--- NOTE | 2025-08-14 09:20 | PM.PN ---
Progress Note: Subjective Subjective Interval history: Patient is feeling a lot better. He continues to cough copious amount of greenish sputum. Much less cough production and the frequency. No chest pain. No abdominal pain. Exam Narrative Exam Narrative: [pt is awake and alert. oriented to place, time and person, resolution of his tachypnea. HEENT: [place] conjunctiva and NL buccal mucosa Neck: Supple, no tenderness Endocrine: No Thyromegaly. Vascular: No JVD or carotid bruit. Lymphatic: No cervical lymphadenopathy. Chest: Significant improvement of bilateral wheezing or rhonchi. Heart RRR, no extra sound or murmur. Abd: Soft, no tenderness, no rebound and no rigidity. Increase abd girth therefore clinically I could not exclude the possibility of intra abd mass or organomegaly. LE: No cyanosis or clubbing, no varices or edema. Neuro: A A O. Nl speech, comprehension and attention. Left arm is weak from recent stroke. Able to lift up against gravity, unable to lift up against resistance. Not worse than had been []] Constitutional Vital Signs, click to edit/add: Last Vital Signs Temp 97.8 F 08/14/25 07:31 Pulse 79 08/14/25 07:54 Resp 18 08/14/25 07:31 BP 127/72 08/14/25 07:31 Pulse Ox 96 08/14/25 07:31 O2 Del Method Nasal Cannula 08/14/25 07:31 O2 Flow Rate 3 08/14/25 07:31 Progress Note: Objective Labs Labs: Short CBC 08/14/25 Range/Units 06:05 WBC 14.4 H (4.0-11.0) 10^3/uL Hgb 12.8 L (14.0-18.0) g/dL Hct 40.5 L (42.0-54.0) % Plt Count 339 (150-450) 10^3/uL BMP 08/14/25 06:05 Sodium 141 Potassium 3.6 Chloride 99 Carbon Dioxide 32.8 H BUN 22.0 H Creatinine 0.93 Glucose 111 H Calcium 9.0 Progress Note: A&P Assessment and Plan (1) Acute exacerbation of chronic obstructive pulmonary disease: Plan Acute COPD exacerbation Acute bronchitis. Cough is productive to brownish-greenish sputum. Chronic hypoxic respiratory failure. Patient is on 3 L at home. BNP is normal. Chest x-ray showed no active disease. Chest exam revealed bilateral wheezing and rhonchi. I start the patient on albuterol, Atrovent, Solu-Medrol, ceftriaxone and Zithromax. I added Pulmicort today twice a day to help with bronchial inflammation. Significant improvement today compared to admission state. Continue current treatment plan. Potential discharge tomorrow. Recent stroke with left arm weakness. Patient uses a walker at home. Recent carotid stenting. Continue dual antiplatelet therapy. Continue blood pressure management. Hypertension Continue losartan Blood pressure is high this morning. Added additional doses of Lasix. DVT prophylaxis Lovenox subcu Increased risk of lung cancer due to previous lung history of smoking Recommend yearly low-dose radiation CAT scan of the chest to screen for lung cancer to be arranged by PCP yearly. Chronic, subacute medical conditions not listed above, abnormal labs and imaging, incidental findings seen on labs and or imaging. These would need to be addressed. Could be addressed later on or in the outpatient setting by PCP collaboration with other needed outpatient providers when time and condition are appropriate. Urinary Catheter Management Urinary Catheter Management Pure Wick: Cath placed during this visit: yes Urethral indwelling: No Insertion date: 08/12/25 Insertion time: 13:36
[2025-08-14] MEDS: FUROSEMIDE 20 MG/2 ML VIAL IVP ×2 (10:44→15:18)
[2025-08-14] MEDS: POTASSIUM CHLORIDE 10 MEQ ER TABLET 40 MEQ PO (10:44)
[2025-08-14] MEDS: IPRATROPIUM/ALBUTEROL SULFATE 3 ML AMPUL.NEB IH ×3 (11:08→20:48)
[2025-08-14] MEDS: BUDESONIDE 0.5 MG/2 ML AMPULE NEB IH ×2 (11:08→20:48)
[2025-08-14] MEDS: TRAZODONE HCL 50 MG TABLET PO (21:09)
[2025-08-14] MEDS: ATORVASTATIN CALCIUM 40 MG TABLET PO (21:09)
[2025-08-15] VITALS (12 sets, daily range): BP systolic 128–134; BP diastolic 70–80; PULSE 68–100; TEMP 36.5–36.8; O2SAT 90–95
[2025-08-15] MEDS: ALBUTEROL SULFATE 2.5 MG/3 ML VIAL NEB IH (01:26)
[2025-08-15] MEDS: METHYLPREDNISOLONE SOD SUCC PF 40 MG/ML VIAL IVP (05:28)
--- NOTE | 2025-08-15 08:10 | CM.NOTE ---
Rounds made with Dr. Watkins, pt will discharge to home today. Pt will f/u with Azul Quezada on Friday. Pt will discharge with [facility].
[2025-08-15] MEDS: IPRATROPIUM/ALBUTEROL SULFATE 3 ML AMPUL.NEB IH (09:46)
[2025-08-15] MEDS: BUDESONIDE 0.5 MG/2 ML AMPULE NEB IH (09:46)
[2025-08-15] MEDS: AZITHROMYCIN 250 MG TABLET 500 MG PO (09:46)
[2025-08-15] MEDS: ASPIRIN 81 MG TABLET.DR PO (09:46)
[2025-08-15] MEDS: TICAGRELOR 90 MG TABLET PO (09:46)
[2025-08-15] MEDS: ENOXAPARIN SODIUM 40 MG/0.4 ML SYRINGE SUBQ (09:46)
[2025-08-15] MEDS: LOSARTAN POTASSIUM 25 MG TABLET PO (09:46)
--- NOTE | 2025-08-15 10:41 | P.DS_ITS ---
DS: Providers Provider Date of admission: 08/10/25 23:21 Primary care physician: Azul Quezada NP DS: Diagnosis Discharge Diagnosis (1) Acute exacerbation of chronic obstructive pulmonary disease: Plan As listed above, below and others that are not listed DS: Summary Hospital Course Hospital Course: Mr. Carrasco is a 65-year-old gentleman with a known diagnosis of COPD. Patient came in with shortness of breath, cough and wheezing and was found to have the following: Acute COPD exacerbation Acute bronchitis. Cough is productive to brownish-greenish sputum. Chronic hypoxic respiratory failure. Patient is on 3 L at home. BNP is normal. Chest x-ray showed no active disease. Chest exam revealed bilateral wheezing and rhonchi. I start the patient on albuterol, Atrovent, Solu-Medrol, ceftriaxone and Zithromax. I added Pulmicort today twice a day to help with bronchial inflammation. Significant improvement today compared to admission state. Continue current treatment plan. Patient is doing much better. Patient will be discharged home on oral medi cations as listed below. Recent stroke with left arm weakness. Patient uses a walker at home. Recent carotid stenting. Continue dual antiplatelet therapy. Continue blood pressure management. Hypertension Continue losartan Blood pressure is high this morning. Added additional doses of Lasix. DVT prophylaxis Lovenox subcu Increased risk of lung cancer due to previous lung history of smoking Recommend yearly low-dose radiation CAT scan of the chest to screen for lung cancer to be arranged by PCP yearly. Chronic, subacute medical conditions not listed above, abnormal labs and imaging, incidental findings seen on labs and or imaging. These would need to be addressed. Could be addressed later on or in the outpatient setting by PCP collaboration with other needed outpatient providers when time and condition are appropriate. Patient has few medical issues as listed above and others that are not listed. All appear to be stable. Much improvement over the last 48 hours. I do not have any clear or strong clinical justification to extend inpatient hospitalizat ion. Patient however will require close and frequent monitoring as well as additional work-up, investigation and therapeutic intervention that could take place from this point on post discharge. That is to prevent relapse, decompensation, rehospitalization and other medical implications.. I instructed patient to ask her primary care doctor to obtain [facility] record entirely to address abnormalities seen on labs and imaging that I have and have not addressed during this hospitalization, follow-up on pending blood work, imaging and pathology is if available and to follow-up on needed medical care in the outpatient setting. Time Spent with Patient Time attestation: Total time spent providing and/or coordinating discharge services: Exam Constitutional Vital Signs, click to edit/add: Last Vital Signs Temp 97.7 F 08/15/25 07:57 Pulse 80 08/15/25 09:49 Resp 18 08/15/25 07:57 BP 134/80 08/15/25 07:57 Pulse Ox 90 L 08/15/25 09:49 O2 Del Method Nasal Cannula 08/15/25 09:49 O2 Flow Rate 3 08/15/25 09:49 DS: Data Data Completed and Pending Labs on day of discharge: Preliminary micro results at discharge 08/10/25 20:19 Lower Respiratory Culture - Preliminary Sputum - Expectorated Sputum Discharge Plan Discharge Disposition: Home Health Service Condition: Fair Discharge Medications: New azithromycin 500 mg tablet 500 mg PO QD Qty: 5 0RF prednisone 20 mg tablet 20 mg PO .as directed Qty: 8 0RF Rx Instructions: Take 1 tablet every day for 5 days then half tablet every day until you finish Continued atorvastatin 40 mg tablet 40 mg PO .qhs trazodone 50 mg tablet 50 mg PO .QHS aspirin 81 mg tablet,delayed release (DR/EC) 81 mg PO DAILY fluticasone propion-salmeterol [Advair Diskus] 250-50 mcg/dose blister with device 1 inh inhalation BID Qty: 60 3RF albuterol sulfate 90 mcg/actuation HFA aerosol inhaler 2 inh INHALATION Q4H PRN (Reason: shortness of breath or wheezing) Qty: 1 3RF ipratropium-albuterol 0.5 mg-3 mg(2.5 mg base)/3 mL solution for nebulization 3 ml inhalation Q4H PRN (Reason: shortness of breath or wheezing) Qty: 180 3RF losartan 25 mg tablet 25 mg PO DAILY Qty: 30 2RF polyethylene glycol 3350 [Miralax] 17 gram/dose powder 17 g PO DAILY 4 Days Qty: 68 0RF ticagrelor 90 mg tablet 90 mg PO Q12H Held ondansetron 4 mg tablet,disintegrating 4 mg PO Q6H PRN (Reason: nausea and vomiting) Qty: 20 0RF Hold Instructions: Resume on 08/21/25. Print Language: Marshallese Activity Restrictions/Additional Instructions: I may not have addressed or treated all of your medical illnesses or the abnormal blood work or imaging studies during this hospitalization. Please ask your primary care provider to obtain [facility] records entirely to follow up on all of the abnormal physical, laboratory, and imaging findings that I have not addressed. Please return back to the emergency room or seek medical attention if your symptoms worsen or return. Discharging you from [facility] does not mean that your medical care ends here and now. You may still need additional monitoring, work up, investigation, and treatment plan to be handled from this point on by out patient providers including your primary care provider and specialists. I would recommend to continue to have CAT scan of the chest every year to screen for lung cancer to be arranged by your primary care doctor. The next 1 is coming up in November. For any medication question, please contact your retail pharmacist or your primary care provider. Thank you. 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 They will contact you to set up visit. Phone number is [phone]. Forms: Portal Instructions Follow Up Appointments: Azul Quezada Aug @11:30 [place] office [phone]
--- NOTE | 2025-08-15 10:49 | SWNOTE1 ---
Pt is ready for discharge today. JALIL faxed CRF, dc med rec, dc summary, and physician notes from the weekend to [facility].
--- NOTE | 2025-08-16 14:21 | CM.DCFOLLOWU ---
1st attempt 08/16/25, no answer
--- NOTE | 2025-08-17 14:24 | CM.DCFOLLOWU ---
Person spoke with:Sam How are you feeling? Better How is your pain? No pain Did you understand your discharge instructions? Yes Do you have any questions about your discharge instructions? No Were you given any prescriptions at discharge? Yes Were you able to get your prescriptions filled? Yes Do you understand how to take your medications as ordered? Yes Do you have any questions about your follow up appointment and do you plan to keep your follow up appointment? No questions. Yes I plan on keeping my appts. Is there anything else that you would like to discuss? No Questions/Comments/Concerns/Other:
== END 2025-08-15 13:38 | disposition home health service (06) | DRG 202 ==
LOC: ER 23:26 → MS 23:29
PROVIDERS: Admitting Provider Internal Medicine; Emergency Provider Emergency Medicine; PCP Nurse Practitioner; Visit Provider Internal Medicine
DX: J20.9 Acute bronchitis, unspecified (principal); I69.354 Hemiplegia and hemiparesis following cerebral infarction affecting left non-dominant side; J96.11 Chronic respiratory failure with hypoxia; Z99.81 Dependence on supplemental oxygen; J43.2 Centrilobular emphysema; Z87.891 Personal history of nicotine dependence; I10 Essential (primary) hypertension; Z79.82 Long term (current) use of aspirin; Z79.899 Other long term (current) drug therapy; Z86.16 Personal history of COVID-19
CPT/HCPCS: 36415; 36600; 71045; 80048; 80053; 82805; 83880; 84484; 85025; 85027; 87070; 87205; 87804; 87811; 93005; 94640; 94761; 96365; 99285; J0696; J1650; J1938; J2919; J3475

== ENCOUNTER 2025-08-22 12:20 | Emergency (ER) | payer MEDICARE, SELFPAY ==
[2025-08-22] VITALS (20 sets, daily range): BP systolic 133–167; BP diastolic 61–108; PULSE 85–102; TEMP 36.6; O2SAT 95–97; BMI 27.5
--- NOTE | 2025-08-22 12:40 | XR_ITS ---
[facility] [place] [address] Patient Name: JUANITA KRAMER MRN: [id number] date: 1960 Sex: M Assigned Patient Location: ER Current Patient Location: ED.MAIN Accession/Order Number: [id number] Exam Date: 08/22/2025 12:55 Report Date: 08/22/2025 13:07 At the request of: EFRAIN HAMPTON MD Procedure: XR chest 1V XR chest 1V 08/22/2025 12:59 PM SIGNS AND SYMPTOMS: ^fluid overload concern PROTOCOL: Frontal radiograph of the chest COMPARISON: 08/10/2025 FINDINGS: The trachea is midline. Atherosclerotic changes are noted thoracic aorta. The heart and mediastinal structures are within normal limits. The lung parenchyma is clear. The bony thorax is intact. XR/XR chest 1V IMPRESSION: No acute cardiopulmonary pathology. Impression dictated by: Carlos Knight M.D. 08/22/2025 1:07 PM Dictation Location: [place] [address] Electronically authenticated by: [id number] Y Date: 08/22/2025 13:07
--- NOTE | 2025-08-22 12:44 | ED.GENADUL1 ---
HPI HPI - General Adult General Chief complaint: Shortness of Breath/Dyspnea Stated complaint: L SIDE SWELLING Time Seen by Provider: 08/22/25 12:33 Source: patient Mode of arrival: Wheelchair Limitations: no limitations History of Present Illness HPI narrative: The patient is 65 years old male presented to the ER after he was in rehab and apparently noted that he have this swelling in his left upper extremity as well as lower extremities, the patient although saying that he is only have left leg swelling he also have the right swelling as well, and apparently he was in the hospital admitted for COPD exacerbation when he received Lasix because he had some bilateral leg edema but he was not discharged home on Lasix and that was his concern to come back The patient denies any shortness of breath more than usual as well and he is using his baseline oxygen 3 L nasal cannula and he does not have any increasing cough Patient give a breathing treatment to himself almost every 4 hours and that is baseline There is no fever no chills no chest pain at any time The patient does have a stroke history with left-sided weakness as a baseline Related Data Home Medications ?Medication ?Instructions ?Recorded ?Confirmed aspirin 81 mg tablet,delayed 81 mg PO DAILY previous stroke 09/21/23 08/22/25 release atorvastatin 40 mg tablet 40 mg PO .qhs 09/21/23 08/22/25 trazodone 50 mg tablet 50 mg PO .QHS 09/21/23 08/22/25 ticagrelor 90 mg tablet 90 mg PO Q12H 08/11/25 08/22/25 fluoxetine 20 mg capsule 20 mg PO QDAY 08/22/25 08/22/25 sodium chloride 0.65 % nasal drops 2 drp intranasal QID PRN dry nasal 08/22/25 08/22/25 ([place] Saline) passages Previous Rx's ?Medication ?Instructions ?Recorded albuterol sulfate 90 mcg/actuation 2 inh inhalation Q4H PRN shortness 05/11/25 aerosol inhaler of breath or wheezing #1 g fluticasone 250 mcg-salmeterol 50 1 inh inhalation BID #60 ea 05/11/25 mcg/dose blistr powdr for inhalation (Advair Diskus) ipratropium 0.5 mg-albuterol 3 mg 3 ml inhalation Q4H PRN shortness 05/11/25 (2.5 mg base)/3 mL nebulization of breath or wheezing #180 mL soln losartan 25 mg tablet 25 mg PO DAILY #30 tabs 05/11/25 prednisone 20 mg tablet 20 mg PO .as directed #8 tabs 08/15/25 furosemide 20 mg tablet (Lasix) 20 mg PO DAILY #3 tabs 08/22/25 Allergies Allergy/AdvReac Type Severity Reaction Status Date / Time bee venom protein (honey bee) Allergy Severe Anaphylaxis Verified 08/22/25 12:33 Opioid HPI Opioid Management Most Recent Opioid Data: Last Pain Scale 0 08/15/25, 12:20 Last ORT Total Score 3 08/10/25, 23:36 Last ORT Risk Category Low Risk 08/10/25, 23:36 Review of Systems ROS Status of ROS 10 or more systems reviewed and unremarkable except as noted in history and below [facility] Medical History (Updated 08/22/25 @ 14:16 by Delmis Urena MD) History of common carotid artery stent placement ?Z98.890 - Other specified postprocedural states (ICD-10) ?Z95.828 - Presence of other vascular implants and grafts (ICD-10) 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 - Polyp of vocal cord and larynx (ICD-10) Vertebral artery occlusion ?I65.09 - Occlusion and stenosis of unspecified vertebral artery (ICD-10) Tourette's ?F95.2 - Tourette's disorder (ICD-10) Testicle lump ?N50.89 - Other specified disorders of the male genital organs (ICD-10) Rheumatic fever ?I00 - Rheumatic fever without heart involvement (ICD-10) Pigmented skin lesion of uncertain nature ?L81.9 - Disorder of pigmentation, unspecified (ICD-10) Papule of skin ?R23.8 - Other skin changes (ICD-10) Osteoarthritis ?M19.90 - Unspecified osteoarthritis, unspecified site (ICD-10) Neck mass ?R22.1 - Localized swelling, mass and lump, neck (ICD-10) Multiple pulmonary nodules ?R91.8 - Other nonspecific abnormal finding of lung field (ICD-10) Marijuana abuse ?F12.10 - Cannabis abuse, uncomplicated (ICD-10) Insomnia ?G47.00 - Insomnia, unspecified (ICD-10) Degenerative cervical disc ?M50.30 - Other cervical disc degeneration, unspecified cervical region (ICD-10) CVA (cerebral vascular accident) ?I63.9 - Cerebral infarction, unspecified (ICD-10) COVID-19 ?U07.1 - COVID-19 (ICD-10) Centrilobular emphysema ?J43.2 - Centrilobular emphysema (ICD-10) Calcified lymph nodes ?I89.8 - Other specified noninfective disorders of lymphatic vessels and lymph nodes (ICD-10) Bilateral carotid artery stenosis ?I65.23 - Occlusion and stenosis of bilateral carotid arteries (ICD-10) Allergic rhinitis ?J30.9 - Allergic rhinitis, unspecified (ICD-10) Alcohol abuse ?F10.10 - Alcohol abuse, uncomplicated (ICD-10) Anxiety ?F41.9 - Anxiety disorder, unspecified (ICD-10) Cerebrovascular disease ?I67.9 - Cerebrovascular disease, unspecified (ICD-10) COPD (chronic obstructive pulmonary disease) ?J44.9 - Chronic obstructive pulmonary disease, unspecified (ICD-10) Depression, unspecified ?F32.A - Depression, unspecified (ICD-10) Dyslipidemia ?E78.5 - Hyperlipidemia, unspecified (ICD-10) 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 - Other diseases of vocal cords (ICD-10) Surgical History (Updated 06/08/24 @ 11:14 by Lidia Fontanez) History of vocal cord polypectomy ?Z98.890 - Other specified postprocedural states (ICD-10) H/O adenoidectomy ?Z90.89 - Acquired absence of other organs (ICD-10) History of tonsillectomy ?Z90.89 - Acquired absence of other organs (ICD-10) Family History (Updated 06/15/24 @ 06:35 by Cira Palacio RN) Mother Family history of CHF (congestive heart failure) Family history of COPD (chronic obstructive pulmonary disease) Hypertension Sister Family history of diabetes mellitus Father Family history of cancer Other Family history of myocardial infarction Social History (Updated 08/10/25 @ 23:33 by Kira Johnson) Within the past year, how often did you have a drink containing alcohol: never Within the past year, how often did you have six or more drinks on one occasion: never Score interpretation: A score less than 4 is consistent with normal alcohol consumption. Smoking status: Former smoker Second hand tobacco smoke exposure: No Non-prescribed substance use: former substance user Non-prescribed substance use details: doesn't use anymore Previous occupational history: retired Known occupational exposures/hazards: No Highest level of school completed/degree received: high school graduate Are you now , , , , never or living with a partner: living with partner In a typical week, how many times do you talk on the telephone with family, friends, or neighbors: 3 or more times per week How often do you get together with friends or relatives: 3 or more times per week How often do you attend orthodoxy or cheondoism services: 1-3 times per year Do you belong to any clubs or organizations such as orthodoxy groups unions, [employer] or athletic groups, or school groups: no Total score: 2 Score interpretation: A score of greater than or equal to 2 indicates the lowest level of social isolation. Little interest or pleasure in doing things: not at all Feeling down, depressed, or hopeless: not at all Feel stressed/tense/nervous/anxious/difficulty sleeping: not at all Due to disability, difficulty making decisions: No Do you think of yourself as: straight/heterosexual Gender Identity: male Exam Narrative Exam Narrative: Nurses notes and vital signs reviewed and patient is not hypoxic. General: Well-appearing and in no apparent distress. Skin: Warm, dry, no pallor noted. No rash. Head: Normocephalic, atraumatic. Neck: Supple, non-tender. Cardiovascular: Regular Rate and Rhythm without murmur, gallop or rub. Respiratory: No accessory muscle use or respiratory distress. Lungs bilateral expiratory lung wheezing both lung kerns with the distant breathing sounds at the bases Back: No midline thoracic or lumbar vertebral tenderness. No CVA tenderness Musculoskeletal: normal ROM, no calf or popliteal tenderness, there is 2+ pitting edema bilaterally and the patient have a almost 1+ edema in the left upper extremity as well GI: Abdomen is soft, non-distended. Normal bowel sounds. No masses appreciated. No tenderness to palpation. No rebound, guarding, or rigidity noted. Neurological: A&O x4. No cranial nerve dysfunction observed. Mild atrophy in the left upper extremity muscle due to history of stroke and weakness Constitutional Vital Signs, click to edit/add: Last Vital Signs Temp 97.9 F 08/22/25 12:25 Pulse 95 H 08/22/25 13:45 Resp 20 08/22/25 13:45 BP 133/72 08/22/25 13:45 Pulse Ox 96 08/22/25 13:20 O2 Del Method Nasal Cannula 08/22/25 13:02 O2 Flow Rate 3 08/22/25 13:02 Course Vital Signs Vital signs: Vital Signs Temperature 97.9 F 08/22/25 12:25 Pulse Rate 100 H 08/22/25 12:25 Respiratory Rate 24 H 08/22/25 12:25 Blood Pressure 167/80 H 08/22/25 12:25 Pulse Oximetry 96 08/22/25 12:25 Oxygen Delivery Method Nasal Cannula 08/22/25 12:25 Oxygen Delivery Flow Rate 3 08/22/25 12:25 Temperature 97.9 F 08/22/25 12:25 Pulse Rate 95 H 08/22/25 13:45 Respiratory Rate 20 08/22/25 13:45 Blood Pressure 133/72 08/22/25 13:45 Pulse Oximetry 96 08/22/25 13:20 Oxygen Delivery Method Nasal Cannula 08/22/25 13:02 Oxygen Delivery Flow Rate 3 08/22/25 13:02 Medical Decision Making [facility] Narrative Medical decision making narrative: The patient EKG showing sinus rhythm with a heart rate of [address] elevation or depression Chest x-ray showed no acute pathology CBC and chemistry were within normal the BNP is not elevated as well as a troponin The patient had a duplex of the left upper extremity that showed no DVT Patient swelling is mostly secondary to the dependency and the fact that the patient is not moving his left upper extremity at now due to the weakness Right now the patient was provided with Lasix for the bilateral leg edema for the next 3 days 20 mg daily and he will follow-up with his primary care for further evaluation He was advised about elevating his feet and monitoring symptoms The patient to follow-up with the primary care within 2 to 3 days and to come back to the ER in case of any worsening of the current symptoms or any new symptoms or concerns Lab Data Labs: Lab Results 08/22/25 Range/Units 12:43 WBC 12.6 H (4.0-11.0) 10^3/uL RBC 4.21 L (4.70-6.10) 10^6/uL Hgb 12.4 L (14.0-18.0) g/dL Hct 39.3 L (42.0-54.0) % MCV 93.3 (80.0-94.0) fL MCH 29.5 (25.9-34.0) pg MCHC 31.6 (29.9-35.2) g/dL RDW 12.7 (11.0-15.0) % Plt Count 341 (150-450) 10^3/uL MPV 9.3 L (9.5-13.5) fL Neut % (Auto) 77.6 H (43.0-75.0) % Lymph % (Auto) 11.3 L (20.5-60.0) % [place] % (Auto) 9.6 (1.7-12.0) % Eos % (Auto) 0.0 L (0.9-7.0) % Baso % (Auto) 0.5 (0.2-2.0) % Neut # (Auto) 9.7 H (1.4-6.5) 10^3/uL Lymph # (Auto) 1.4 (1.2-3.8) 10^3/uL [place] # (Auto) 1.2 H (0.3-0.8) 10^3/uL Eos # (Auto) 0.0 (0.0-0.7) 10^3/uL Baso # (Auto) 0.1 (0.0-0.1) 10^3/uL Abs Immat Gran (auto) 0.13 H (0.00-0.03) 10^3/uL Imm/Tot Granulo (auto) 1.0 H (0.0-0.5) % Sodium 142 (136-145) mmol/L Potassium 4.1 (3.5-5.1) mmol/L Chloride 105 (98-107) mmol/L Carbon Dioxide 32.7 H (21.0-32.0) mmol/L Anion Gap 8.4 BUN 10.0 (7.0-18.0) mg/dL Creatinine 0.83 (0.70-1.30) mg/dL Est GFR ( Amer) >60 (>=60 mL/min/1.73m^2) Est GFR (Non-Af Amer) >60 (>=60 mL/min/1.73m^2) BUN/Creatinine Ratio 12.0 Glucose 94 (74-106) mg/dL Calcium 9.0 (8.5-10.1) mg/dL Total Bilirubin 0.8 (0.2-1.0) mg/dL AST 29 (15-37) U/L ALT 56 (16-63) U/L Alkaline Phosphatase 66 (46-116) U/L Troponin I High Sens 8.1 (4.0-76.1) pg/mL NT-Pro-B Natriuret Pep 94.0 (<=900.0) pg/mL Total Protein 6.6 (6.4-8.2) g/dL Albumin 3.5 (3.4-5.0) g/dL Globulin 3.1 g/dL Albumin/Globulin Ratio 1.1 Discharge Plan Discharge Chief Complaint: Shortness of Breath/Dyspnea Clinical Impression: Leg edema, Arm edema Patient Disposition: Home, Self-Care Time of Disposition Decision: 14:16 Condition: Good Prescriptions / Home Meds: New furosemide [Lasix] 20 mg tablet 20 mg PO DAILY Qty: 3 0RF No Action atorvastatin 40 mg tablet 40 mg PO .qhs trazodone 50 mg tablet 50 mg PO .QHS aspirin 81 mg tablet,delayed release (DR/EC) 81 mg PO DAILY fluticasone propion-salmeterol [Advair Diskus] 250-50 mcg/dose blister with device 1 inh inhalation BID Qty: 60 3RF albuterol sulfate 90 mcg/actuation HFA aerosol inhaler 2 inh INHALATION Q4H PRN (Reason: shortness of breath or wheezing) Qty: 1 3RF ipratropium-albuterol 0.5 mg-3 mg(2.5 mg base)/3 mL solution for nebulization 3 ml inhalation Q4H PRN (Reason: shortness of breath or wheezing) Qty: 180 3RF losartan 25 mg tablet 25 mg PO DAILY Qty: 30 2RF ticagrelor 90 mg tablet 90 mg PO Q12H prednisone 20 mg tablet 20 mg PO .as directed Qty: 8 0RF Rx Instructions: Take 1 tablet every day for 5 days then half tablet every day until you finish fluoxetine 20 mg capsule 20 mg PO QDAY [place] Saline 0.65 % drops 2 drp INTRANASAL QID PRN (Reason: dry nasal passages) Print Language: Uzbek Instructions: Leg Edema (ED), Edema (ED) Referrals: Azul Quezada NP [Primary Care Provider, [facility]] - 1 week
--- NOTE | 2025-08-22 12:47 | ECG_ITS ---
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
[2025-08-22 12:56] LABS: Hematocrit 39.3 % (42.0-54.0); Hemoglobin 12.4 g/dL (14.0-18.0); Immature Granulocytes Abs Auto 0.13 10^3/uL (0.00-0.03); Immature Granulocytes Pct Auto 1.0 % (0.0-0.5); Lymphocytes Absolute Auto 1.4 10^3/uL (1.2-3.8); Mean Corpuscular HGB Conc 31.6 g/dL (29.9-35.2); Mean Corpuscular Hemoglobin 29.5 pg (25.9-34.0); Mean Corpuscular Volume 93.3 fL (80.0-94.0); Platelet Count 341 10^3/uL (150-450); Red Blood Count 4.21 10^6/uL (4.70-6.10); White Blood Count 12.6 10^3/uL (4.0-11.0)
[2025-08-22] MEDS: IPRATROPIUM/ALBUTEROL SULFATE 3 ML AMPUL.NEB IH (13:01)
--- OUTSIDE RECORDS SUMMARY | 2025-08-22 13:04 | XMS_ITS | Clinical Summary ---
Author Organization [employer] [facility] Address [id number] [place] [address] Care Team Providers Care Dimensional Integration Engineer Name Role Phone Azul Quezada APRN-WIND TURBINE ELECTRICAL ENGINEER Primary Care Provider Allergies Active AllergyReactionsCriticalityNoted DateCommentsBee [...] every 12 (twelve) hours. 180 tablet 5Active Active Problems ProblemNoted DateDiagnosed DateStroke (cerebrum)07/08/2025Mixed hyperlipidemia 10/29/7374Sxvkjz80/29/2020Internal carotid artery stenosis, right06/10/2020CVA (cerebral vascular accident)06/10/2020 Encounters DateTypeDepartmentCare IvuaTwjjeioyvxk43/18/2025 11:30 AM EDT - 07/09/2025 12:30 PM EDTSurgery [facility] [address] [place] [phone] Andrew Terrell MD Diagnostic cerebral hpznpmogp74/17/8157Dfdmrm83/16/2025 12:52 PM EDT - 07/12/2025 4:58 PM EDTHospital Encounter [facility] - GEN 8 Acute [address] [place] [phone] Checo Aguilera MD Emma, MD Lex Internal carotid artery stenosis, right (Primary Dx) Discharge Disposition: Senior Living Facility-Medicare Cert07/07/2025 11:35 AM EDTAncillary Procedure [facility] [address] [place] [phone] Pain07/07/2025 11:30 AM EDTAncillary Procedure [facility] [address] [place] [address] [phone] Pain07/07/2025 11:20 AM EDTAncillary Procedure [facility] [address] [place] [address] [phone] Pain07/07/2025Orders Only [facility] [address] [place] [address] [phone] External, Scanning Provider Pain (Primary Dx)from Last 3 Months Immunizations ImmunizationAdministration DatesNext DueInfluenza, Im Flucelvax (Pf)07/12/2025 Family History Medical HistoryRelationNameCommentsHeart diseaseFatherCOPDMotherHeart [...] relatives?Once a week06/10/2020How often do you attend nondenominational or mandaeism services?Never06/10/2020Do you belong to any clubs or organizations such as nondenominational groups, unions, fraternal or athletic groups, or school groups?No 06/10/2020How often do you attend meetings of the clubs or organizations you belong to?Never06/10/2020Are you , , , , never , or living with a partner?Living with cqxgmkx5006/10/2020PHQ-2AnswerDate RecordedTotal Mlmgw126[facility] [place] [facility] Occup[facility] Health - Occupational Stress QuestionnaireAnswerDate [...] a part of a household?No07/08/2025hildcareAnswerDate RecordedChildcareUnknown 03/03/2019EmploymentAnswerDate RltnodknAoxfdkolzcRcuuuhy17/12/2019Hunger ScreeningAnswerDate RecordedWithin the past 12 months we worried whether our food would run out before we got money to buy more.Never True07/08/2025Within the past 12 months the food we bought just didn't last and we didn't have money to get more.Never True07/08/2025Purpose - LifeAnswerDate RecordedPurpose and direction in mwpjAtkjpks08/26/2021ex and Gender InformationValueDate Recorded Sex Assigned at BirthNot on fileLegal OmiFizz1404/27/2015 11:32 AM EDTGender IdentityNot on fileSexual OrientationNot on file Last Filed Vital Signs Vital SignReadingTime TakenCommentsBlood Cjuowaxc373/8307/12/2025 2:48 PM EDT Sqvst0428/21/2025 3:43 PM DPZUzaljdjajol80.9 ??C (98.4 ??F)07/12/2025 11:45 AM EDTRespiratory Qrhr821507/12/2025 3:43 PM EDTOxygen Zrabewnnbj06%07/12/2025 3:43 PM EDTInhaled Oxygen Concentration--Pgvxse11 kg (202 lb 13.2 oz)07/12/2025 4:41 AM XXLRqsobh831.4 cm (6' 1 )07/08/2025 1:01 PM EDTBody Mass Index26.7607/08/2025 1:01 PM EDT Plan of Treatment DateTypeDepartmentCare Team (Latest Contact Info)Fbrvnrdqvsk86/04/2025 1:30 PM ESTOffice Visit [facility], A Department of [address] [place] [phone] Andrew Terrell MD [address] [place] [address], [facility] [address] [place], [place] [id number] Health MaintenanceDue DateLast DoneCommentsTobacco Tnzqhqzjfk1960Adult BMI Follow Up Plan1978DTaP,Tdap and Td Vaccines (1 - Tdap)1979Zoster (Shingles) Vaccine (1 of 2)2010bdominal Aortic Aneurysm (AAA) Screen 2025Fall Risk Eflhnosjc73/01/2025Depression Rraqvonzt66 Tobacco Rsqodmxxu29dult BMI Fbgxzgfym15RSV ( or age 60+ yrs)Xivjeddhc14/09/2024Influenza VaccineCompleted 07/12/2025, 08/16/2024, 2020, Additional history exists Goals GoalPatient Goal TypeAssociated ProblemsRecent ProgressPatient-Stated?Author Safe Discharge Jaki Mock, RN Note: Evaluation of progress towards goal: safe transition to SNF rehab for strengthening and rehab s/p stroke Medical Devices ImplantedTypeAreaManufacturerDevice IdentifierShelf Expiration DateModel / Serial / LotStnt Vsc 8/6mm 6fr 30mm 135cm - [id number] Implanted:Qty: 1 on 06/12/2020 [facility]entRight: CarotidMEDTRONIC [id number] / / [id number] Crtd Neuroguard 40mm 140cm Clsd Cell Bln Fltr - [id number] Implanted:Qty: 1 on 07/09/2025 by Andrew Terrell MD at [facility]05/16/[id number] / / [id number] Procedures Procedure NamePriorityDate/TimeAssociated DiagnosisCommentsEXTRA TUBES LAVENDER SCEIdslvit89/21/2025 5:54 AM EDT EXTRA PNMWDEbkpwgq48/21/2025 5:54 AM EDT COMPREHENSIVE METABOLIC DPBNNYiwxwmd51/21/2025 5:54 AM EDT COMPREHENSIVE METABOLIC WTYUPYccjiyo08/20/2025 3:34 AM EDT CBC WITH AUTO HYAKFOOIZGLZYvqjegc58/19/2025 3:28 AM EDT COMPREHENSIVE METABOLIC XKKKPMlpkrtp39/19/2025 3:28 AM EDT NEURO BZJUJSNRHavixai43/18/2025 12:45 PM EDTNEURO QGOIFTJNPhatnxu86/18/2025 12:45 PM EDTCBC WITH AUTO IQFBKMIUXCIHPrzmksn71/18/2025 3:48 AM EDT COMPREHENSIVE METABOLIC ZTEZGShfaifw68/18/2025 3:48 AM EDT FL SWALLOW MOTILITY STTAONDMToewjkf63/17/2025 1:46 PM EDT ECHO COMPLETE W PBLIMOALDmmmzel98/17/2025 1:37 PM EDT VASC CAROTID DUPLEX KUPWPPIYHMiyugsu97/17/2025 11:11 AM EDT CBC WITH AUTO BROFHAZVMRAGYdiewhk67/17/2025 3:14 AM EDT COMPREHENSIVE METABOLIC LOQVJNskfhvz53/17/2025 3:14 AM EDT LIPID PMABNJQGmpuhsq69/17/2025 3:14 AM EDT MR BRAIN WO LVVOZUTB11/16/2025 9:02 PM EDT XR CHEST 1 DVHojayki09/16/2025 6:56 PM EDT ECG 12-LUYPRJWO56/16/2025 5:35 PM EDT B-TYPE NATRIURETIC PEPTIDEAdd-On07/07/2025 3:49 PM EDT CBC WITH AUTO NUYWGVSNKYUTBszddrm48/16/2025 3:49 PM EDT COMPREHENSIVE METABOLIC SGKYWKxblqya51/16/2025 3:49 PM EDT HEMOGLOBIN L4MJeewhvy25/16/2025 3:49 PM EDT BEDSIDE UYQAIVEAzabkai11/16/2025 2:[address] CEREBRAL PERF NMHVDRGXAEGV64/16/2025 2:[address] CTA TPZTBMRZvvvzpb05/16/2025 11:[address] CTA QYZQSfthfag11/16/2025 11:[address] BRAIN WO BHDFXiuxufg74/16/2025 11:20 AM EDT Pain from Last 3 Months Results * Lavender Top (07/12/2025 5:54 AM EDT)ComponentValueRef RangeTest Method Analysis TimePerformed AtPathologist SignatureExtra TubeAuto Resulted 07/12/2025 7:01 AM [facility] LABORATORYSpecimen (Source) Anatomical Location / LateralityCollection Method / VolumeCollection Time Received TimeBloodVenous blood / Bppmkav5607/12/2025 5:54 AM EDT1 6:11 AM EDT Narrative Authorizing ProviderResult TypeResult StatusMouhammasonia BAKER BLOOD ORDERABLESFinal ResultPerforming OrganizationAddressCity/State/ZIP CodePhone Number [facility] [address] [place] [address], [place] [phone] * (ABNORMAL) Comprehensive metabolic panel (07/12/2025 5:54 AM EDT) Only the most recent of6 resultswithin the time period is included. ComponentValueRef RangeTest MethodAnalysis TimePerformed AtPathologist Signature YNIIOJ101163 - 146 mmol/L1 6:49 AM [facility] LABORATORYPOTASSIUM4.03.5 - 5.0 mmol/L1 6:49 AM [facility] RUQETYBQYCNNQEVKPN13197 - 109 mmol/L1 6:49 AM [facility] LABORATORYCARBON UHTAHCE5924 - 32 mmol/L1 6:49 AM [facility] LABORATORYANION GAP85 - 15 mmol/L1 6:49 AM [facility] LABORATORYBLOOD UREA OJXGAVAG088 - 27 mg/dL07/12/2025 6:49 AM [facility] LABORATORYCREATININE0.750.60 - 1.30 mg/dL07/12/2025 6:49 AM [facility] LABORATORYComment:METHOD TRACEABLE TO IDMS JHYZTKLRKNEVZYM6932 - 99 mg/dL07/12/2025 6:49 AM [facility] LABORATORYCALCIUM8.68.5 - 10.5 mg/dL07/12/2025 6:49 AM [facility] LABORATORYTOTAL PROTEIN5.6(L)6.0 - 8.0 g/dL07/12/2025 6:49 AM [facility] LABORATORYALBUMIN3.43.2 - 5.3 g/dL07/12/2025 6:49 AM [facility] LABORATORYALKALINE BTIMIXVCGCA9912 - 130 U/L1 6:49 AM [facility] ISNJSBNXVDRNT42<=41 U/L1 6:49 AM [facility] SBTTAGVMFMVFV39<=40 U/L1 6:49 AM [facility] LABORATORYBILIRUBIN,TOTAL0.90.3 - 1.2 mg/dL07/12/2025 6:49 AM [facility] LABOR[facility]ORYEGFR Non-Race Dependent>90>=60 ml/min/1.73sq.m 07/12/2025 6:49 AM [facility] LABORATORYComment: Reported eGFR is based on the CKD-EPI 2020 equation that does not use a race coefficient. Specimen (Source)Anatomical Location / LateralityCollection Method / Volume Collection TimeReceived TimeBloodVenous blood / UnknownVenipuncture / Unknown 07/12/2025 5:54 AM EDT1 6:11 AM EDT Narrative Authorizing ProviderResult TypeResult StatusAhmed Deven Tobar [facility] BLOOD ORDERABLESFinal ResultPerforming OrganizationAddressCity/State/ZIP CodePhone Number [facility] [address] [place] [address], * (ABNORMAL) CBC auto differential (07/10/2025 3:28 AM EDT) Only the most recent of4 resultswithin the time period is included. ComponentValueRef RangeTest MethodAnalysis TimePerformed AtPathologist Signature WBC10.04 - 11 x10E9/L1 3:55 AM [facility] RBC Count4.304.1 - 5.7 X10E12/L1 3:55 AM [facility] OQSLXKVNWKFcueamynjt52.6(L)13 - 17 g/dL07/10/2025 3:55 AM [facility] JTZCNCBJCDXjutivlhsc04.9(L)39 - 50 %07/10/2025 3:55 AM [facility] MVJFUOTJMWHOP4753 - 100 fL07/10/2025 3:55 AM [facility] YVOSMZELSTPWL25.427 - 34 pg07/10/2025 3:55 AM [facility] ZOZICSDQUBONNO91.332 - 36 g/dL07/10/2025 3:55 AM [facility] WWTPXSFTOWPEB29.911.5 - 15 %07/10/2025 3:55 AM [facility] LABORATORYPlatelet Cxjcd609537 - 450 X10E9/L1 3:55 AM [facility] LABORATORYMPV7.47 - 12 fL07/10/2025 3:55 AM [facility] LABORATORYNeutrophils %75.4%07/10/2025 3:55 AM [facility] LABORATORYLymphocytes %10.4%07/10/2025 3:55 AM [facility] LABORATORYMonocytes %10.7%07/10/2025 3:55 AM [facility] LABORATORYEosinophils %3.0%07/10/2025 3:55 AM [facility] LABORATORYBasophils %0.5%07/10/2025 3:55 AM [facility] LABORATORYNeutrophils Absolute (A)7.5(H)1.5 - 6.6 10*3/uL07/10/2025 3:55 AM EDT [facility] LABORATORYLymphocytes Absolute1.01.0 - 3.5 10*3/uL 07/10/2025 3:55 AM [facility] LABORATORYMonocytes Absolute1.1 (H)0.0 - 0.9 10*3/uL07/10/2025 3:55 AM [facility] Eosinophils Absolute0.30.0 - 0.4 10*3/uL07/10/2025 3:55 AM [facility] LABORATORYBasophils Absolute0.10.0 - 0.2 10*3/uL07/10/2025 3:55 AM EDT [facility] LABORATORYDifferential TypeAUTOMATED DIFFERENTIAL 07/10/2025 3:55 AM [facility] LABORATORYSpecimen (Source) Anatomical Location / LateralityCollection Method / VolumeCollection Time Received TimeBloodVenous blood / UnknownVenipuncture / Trksqjy5007/10/2025 3:28 AM EDT1 3:42 AM EDT Narrative Authorizing ProviderResult TypeResult StatusAhmed Deven Guzman MDLAB BLOOD ORDERABLESFinal ResultPerforming OrganizationAddressCity/State/ZIP CodePhone Number [facility] [address] [place] [address], [place] [phone] * Fluoroscopy swallow motility function (07/08/2025 1:46 [...] 1:55 PM Authorizing ProviderResult TypeResult StatusMojerzy Aguilera MDIMG FLUOROSCOPY ORDERABLESFinal Result * Echo complete W/ contrast (07/08/2025 1:37 PM EDT)ComponentValueRef RangeTest MethodAnalysis TimePerformed AtPathologist SignatureLVOT stroke qahqwq58.58ml XHNOROUUM3664 - 44 %XCELERALVIDd5.906.58 - 9.14 cmXCELERALVIDs3.703.82 - 5.79 cmXCELERAIVS0.900.6 - 1.1 cmXCELERAPW0.900.6 - 1.1 cmXCELERALVOT diameter1.90 cmXCELERATDI6.31cm/sXCELERAMV TDI E' (medial)5.98cm/sXCELERAE/A ratio0.82 XCELERAE wave deceleration fnvj988.00msecXCELERAMV Peak E Vel76.00cm/sXCELERA MV Peak A Vel92.80cm/sXCELERALA size2.70cmXCELERARV diastolic dimension (basal)32.5qvYPPKNCIMWIPK5.83cmXCELERAAV peak sgl087.00cm/sXCELERALVOT peak vel1.31m/sXCELERAAV VTI25.10cmXCELERALVOT peak VTI25.60cmXCELERAAV mean gradient5.00mmHgXCELERAAV peak gradient7.62mmHgXCELERAAV valve area2.89XCELERA Valve area - Index1.3XCELERAMV pressure 1/2 time77.00msXCELERAMV valve area p 1/2 method2.31tn4YINFNAKEQ peak gradient3.11mmHgXCELERALV ESV A4C22.60mL XCELERALV RWT 2D30.51XCELERAAV Velocity Ratio1.02XCELERALeft Ventricle Mass 209.333933049623059nHOZRKPFCzhcwocqzmaggyqb Septum Diastolic Thickness by 2D9 cmXCELERAEst. RA ysrsfmvi8dsXaBILCVZFAR area16.8fs5GZPNQSAEXQADP-7.90XCELERA ZLVIDD-2.73XCELERAAnatomical RegionLateralityModalityChestN/AUltrasound Specimen (Source)Anatomical Location / LateralityCollection [...] due to patient's respiration. Authorizing ProviderResult TypeResult StatusFairmount [facility]al [facility] System ECHO ORDERABLESFinal Result * Vas carotid duplex [...] phone number besidetheir name. Authorizing ProviderResult TypeResult Margo Zhang [facility] [place]ULAR ORDERABLESFinal Result * (ABNORMAL) Lipid profile (07/08/2025 3:14 AM EDT)ComponentValueRef RangeTest MethodAnalysis TimePerformed AtPathologist WrkzgtsjdYGUYAYUZNLR037(L)150 - 200 mg/dL07/08/2025 4:33 AM [facility] PMJPYOOPMEQYZFZKGITXJP6989 - 150 mg/dL07/08/2025 4:33 AM [facility] LABORATORYHDL OETMYFZMLRQ72>39 mg/dL07/08/2025 4:33 AM [facility] LABORATORYComment: HDL <40 mg/dL - High Risk HDL > or = 40mg/dL- Desirable HDL >60 mg/dL - Negative Risk LDL (CALC)51<130 mg/dL07/08/2025 4:33 AM [facility] Comment: LDL <100 mg/dL - Desirable LDL >160 mg/dL - High Risk CHOLESTEROL:HDL2.31.0 - 5.010 4:33 AM [facility] LABORATORYVERY LOW ZZERVTHUQVU340 - 30 mg/dL07/08/2025 4:33 AM [facility] LABORATORYSpecimen (Source)Anatomical Location / Laterality Collection Method / VolumeCollection TimeReceived TimeBloodVenous blood / UnknownVenipuncture / Dnbrxoq9907/08/2025 3:14 AM EDT1 3:51 AM EDT Narrative Authorizing ProviderResult TypeResult Margo BAKER BLOOD ORDERABLESFinal ResultPerforming OrganizationAddressCity/State/ZIP CodePhone Number [facility] [address] [place] [address], [place] [phone] * MR brain without contrast (07/07/2025 9:02 [...] 9:12 PM Authorizing ProviderResult TypeResult StatusRosibel Zhang MDDemetrius MRI ORDERABLESFinal Result * X-ray [...] 7:20 PM Authorizing ProviderResult TypeResult StatusErick Guzman MDDemetrius DIAGNOSTIC IMAGING ORDERABLESFinal Result * ECG 12 lead (07/07/2025 5:35 PM EDT)Specimen (Source)Anatomical Location / LateralityCollection Method / VolumeCollection TimeReceived Time07/07/2025 5:35 PM EDT Narrative TRACEMASTERVUE - 07/07/2025 5:52 PM EDT Authorizing ProviderResult TypeResult StatusAhmed Deven Guzman MDG ORDERABLES Final ResultPerforming OrganizationAddressCity/State/ZIP CodePhone Number TRACEMASTERVUE * B-type natriuretic peptide (07/07/2025 3:49 PM EDT)ComponentValueRef RangeTest MethodAnalysis TimePerformed AtPathologist HjdtgffbrKFS00<=100 pg/mL07/07/2025 6:01 PM EDTTBAR[facility] LABORATORYSpecimen (Source)Anatomical Location / LateralityCollection Method / VolumeCollection TimeReceived Time BloodVenous blood / UnknownVenipuncture / Opaeafm6307/07/2025 3:49 PM EDT 07/07/2025 4:02 PM EDT Narrative Authorizing ProviderResult TypeResult StatusErick BAKER BLOOD ORDERABLESFinal ResultPerforming OrganizationAddressCity/State/ZIP CodePhone Number [facility] [address] [place] [address], * (ABNORMAL) Hemoglobin A1c (07/07/2025 3:49 PM EDT)ComponentValueRef RangeTest MethodAnalysis TimePerformed AtPathologist SignatureHEMOGLOBIN A1C5.7(H)4.4 - 5.6 %07/07/2025 4:50 PM [facility] LABORATORYComment: ?ADA Guidelines ?Result ?HgbA1c ? Normal : ? less than 5.7 % ? Prediabetes : ?5.7 % ??to 6.4 % Diabetes : > 6.4 % ?Use with caution in patients with abnormal hemoglobin variants as ??the half-life of red blood cells and in vivo glycation rates are ??affected. EST. AVERAGE NBVUICZ431yj/dL07/07/2025 4:50 PM [facility] LABORATORYSpecimen (Source)Anatomical Location / LateralityCollection Method / VolumeCollection TimeReceived TimeBloodVenous blood / UnknownVenipuncture / Zbkpfjr4107/07/2025 3:49 PM EDT1 4:02 PM EDT Narrative Authorizing ProviderResult TypeResult StatusKhaled Gharaibeh MDLAB BLOOD ORDERABLESFinal ResultPerforming OrganizationAddressCity/State/ZIP CodePhone Number [facility] [address] [place] [address], * (ABNORMAL) Bedside Glucose *Place/Obtain serum glucose if >500 per glucometer. (07/07/2025 2:48 PM EDT)ComponentValueRef RangeTest MethodAnalysis Time Performed AtPathologist SignatureBedside Glucose (POC)117(H)65 - 99 mg/dL 07/07/2025 2:53 PM [facility] LABORATORYSpecimen (Source)Anatomical Location / LateralityCollection Method / VolumeCollection TimeReceived Time arterial/lfiiecabo65/16/2025 2:48 PM EDT1 2:53 PM EDT Narrative Authorizing ProviderResult TypeResult StatusMouhsabiha Aguilera MDPOINT OF CARE TEST ORDERABLESFinal ResultPerforming OrganizationAddressCity/State/ZIP Code Phone Number [facility] [address] [place] [address], * CT cerebral perfusion analysis (07/07/2025 2:38 [...] on 07/07/2025 2:47 PM Authorizing ProviderResult TypeResult Statusrafael Zhang [facility] CT ORDERABLES Final Result * CT angiogram [...] (Latest Code Status on File) Date ActivatedDate RekdkfmuacsDbohsdld60/16/2025 5:09 07/12/2025 7:04 PM Care Teams Team MemberRelationshipSpecialtyStart DateEnd Date Azul Quezada, BUSINESS EDUCATION TEACHER-WIND TURBINE ELECTRICAL ENGINEER PCP - GeneralNurse Tuyzxokufecw63/9/19
--- OUTSIDE RECORDS SUMMARY | 2025-08-22 13:08 | XMS_ITS | CCD ---
Author Organization [facility] Care Team Providers Care Weight Inspector Name Role Phone SAMSA, JAMESON Admitting Unavailable SAMSA, JAMESON Attending Unavailable AICHHOLZ, EDITOR PRODUCER AZUL Referring Unavailable AICHHOLZ, EDITOR PRODUCER AZUL Primary Care Unavailable SAMSA, JAMESON Consulting Unavailable AICHHOLZ, EDITOR PRODUCER AZUL Admitting Unavailable AICHHOLZ, EDITOR PRODUCER AZUL Attending Unavailable AICHHOLZ, EDITOR PRODUCER AZUL Primary Care Unavailable AICHHOLZ, EDITOR PRODUCER AZUL Consulting Unavailable SAMSA, JAMESON Admitting Unavailable SAMSA, JAMESON Attending Unavailable AICHHOLZ, EDITOR PRODUCER AZUL Primary Care Unavailable WHITNEY, DR YARIEL Figueroa Consulting Unavailable SAMSA, JAMESON Consulting Unavailable AICHHOLZ, EDITOR PRODUCER AZUL Primary Care Unavailable DAREN, DR MAURO Admitting Unavailable DAREN, DR MAURO Attending Unavailable WHITNEY, DR YARIEL Figueroa Consulting Unavailable DAREN, DR MAURO Consulting Unavailable Kiko Zurita MD Primary Care Provider Aichholz PLASTICS TOOLING ENGINEER, Azul Unavailable Kiko Zurita MD Primary Care Provider [phone] Aichholz PLASTICS TOOLING ENGINEER, Azul Unavailable Aichholz EVENT REPRESENTATIVE-EDITOR PRODUCER, Azul J Primary Care Provider Aichholz PLASTICS TOOLING ENGINEER, Azul Unavailable AICHHOLZ, AZUL Attending Unavailable AICHHOLZ, [...] Primary Care Unavailable 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 Referring Unavailable AZLU QUEZADA Primary Care Unavailable 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 Referring Unavailable 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 Primary Care Unavailable Damien PLASTICS TOOLING ENGINEER, Azul Unavailable Kiko Zurita MD Primary Care Provider Damien PLASTICS TOOLING ENGINEER, Azul Unavailable Allergies Allergy ClassificationReported Allergen(s)Allergy TypeDate of OnsetReaction(s) Facility (20 sources)Honey bee venomAllergy to ylrofseox16-82-6373XaszparB[facility] (3 sources)Bee Venom Protein (Honey Bee); Translations: [BEE VENOM PROTEIN (HONEY BEE)]Propensity to adverse reactions to rtqx87-78-0238SnnQdeimd [facility] Medications Current Medications MedicationDrug Class(es)DatesSig [...] oral tablet (3 sources)Penicillin-class AntibacterialStart: 11-16-2024 End: 21-87-6982bkxz 1 tablet by mouth in the morningamoxicillin-clavulanate (Augmentin) 875-125 MG tablet Indications: COPD with acute exacerbation (CMS /HCC) Take 1 tablet (875 mg) by mouth in the morning and 1 tablet (875 mg) before bedtime. Do all this for 10 days. 20 tablet 11/16/2024 11/26/2024 Active aspirin 81 mg chewable tablet (20 sources)Platelet Aggregation Inhibitor, Nonsteroidal Anti-inflammatory Drug Start: 94-74-4289yogrnbk 81 mg chewable tablet Chew 1 tablet (81 mg total) and swallow daily. 30 tablet 5 06/14/2020Activetake 1 tablet by mouth in the morning aspirin 81 MG EC tablet Take 81 mg by mouth in the morning. Activeatorvastatin 40 mg oral tablet (20 sources)HMG-CoA Reductase InhibitorStart: 03-15-2024 End: 72-90-2599mnys 1 tablet by mouth in the eveningatorvastatin (Lipitor) 40 MG tablet Indications: Mixed hyperlipidemia Take 1 tablet (40 mg) by mouth in the evening 90 tablet 1 12/27/2024 ActiveStart: 91-16-4660gdeh 1 tablet by mouth once dailyatorvastatin (LIPITOR) 40 mg tablet Take 1 tablet (40 mg total) by mouth nightly. 30 tablet 2 06/13/2020 Activebisacodyl 5 mg delayed release oral tablet (3 sources)Stimulant LaxativeStart: 05-31-2024 End: 54-57-6826rjdb 1 tablet by mouth oncebisacodyl (Dulcolax) 5 MG EC tablet Indications: Screening for malignant neoplasm of colon Take 1 tablet (5 mg) by mouth 1 time for 1 dose Do not crush, chew, or split. Take as detailed on clinic hand out for colonoscopy prep 1 tablet 05/31/2024 05/31/2024 Qdbhjk85 actuat budesonide 0.16 mg/actuat / formoterol fumarate 0.0045 mg/actuat metered dose inhaler (20 sources)Corticosteroid, beta2-Adrenergic Agonisttake 2 puff(s) by inhalation in the morningbudesonide-formoterol (Symbicort) 160-4.5 MCG/ACT inhaler Inhale 2 puffs in the morning and 2 puffsbefore bedtime. Rinse mouth with water after use to reduce aftertaste and incidence of candidiasis.Do not swallow.. Active Ensifentrine (Ohtuvayre) 3 MG/2.5ML suspension (11 sources)Start: 17-25-2061Iaaedfgmugjw (Ohtuvayre) 3 MG/2.5ML suspension every 12 (twelve) hours 08/17/2024 Orojxnzuq185795 0.3 ml EPINEPHrine 1 mg/ml auto-injector (20 sources)alpha-Adrenergic Agonist, beta-Adrenergic Agonist, Catecholamine Start: 62-05-1210BLUGUVPbaft (Epipen) 0.3 MG/0.3ML injection syringe Inject 1 Syringe as directed 1 (one) time 05/30/2024 Activefamotidine 20 mg oral tablet (3 sources)Histamine-2 Receptor AntagonistStart: 05-30-2024 End: 75-08-1700crlt 1 tablet by mouth in the morningfamotidine (Pepcid) 20 MG tablet Take 20 mg by mouth in the morning and 20 mg before bedtime. 05/30/2024 08/16/2024 Discontinued (Therapy completed)FLUoxetine 20 mg oral capsule (20 sources)Serotonin Reuptake InhibitorStart: 02-02-2024 End: 44-66-2905uwbn 1 capsule by mouth once dailyFLUoxetine (PROzac) 20 MG capsule Indications: Depression with anxiety Take 1 capsule (20 mg) by mouth Daily 90 capsule 1 02/15/2025 Activetake 1 capsule by mouth once dailyFLUoxetine (PROzac) 10 mg capsule Take 10 mg by mouth daily. ActivehydrOXYzine hydrochloride 25 mg oral tablet (11 sources)AntihistamineStart: 12-15-2023 End: 31-57-4445eknh 1-2 tablets by mouth every eight hours for anxiety hydrOXYzine HCl (Atarax) 25 MG tablet Indications: Depression with anxiety Take 1-2 tablets (25-50 mg) by mouth every 8 (eight) hours if needed for anxiety for up to 10 days 60 tablet 12/15/2023 08/16/2024 Discontinued (Therapy completed) ipratropium bromide 0.2 mg/ml inhalation solution (11 sources)AnticholinergicStart: 03-57-5888bukkobmciav (Atrovent) 0.02 % nebulizer solution 2.5 mL inhaled via nebulizer every 8 hours As Needed for shortness of breath or wheezing 09/27/2024 Activelosartan potassium 25 mg oral tablet (3 sources)Angiotensin 2 Receptor BlockerStart: 56-42-4922wxmw 1 tablet by mouth once dailylosartan (Cozaar) 25 MG tablet Take 25 mg by mouth Daily 05/11/2025 Activepolyethylene glycol 3350 57867 mg powder for oral solution (3 sources)Osmotic LaxativeStart: 05-31-2024 End: 80-86-2773qdam 17 g by mouth oncepolyethylene glycol, PEG, 3350 (Glycolax) 17 GM/SCOOP powder Indications: Colonoscopy Take 238 g bymouth 1 (one) time for 1 dose Take as detailed from clinic hand out for colonoscopy prep 238 g 05/3105/31/2024 ActivepredniSONE 10 mg oral tablet (15 sources)Start: 89-87-3712wlux 1 tablet by mouth three times daily, then take 1 tablet by mouth twice daily, then take 1 tablet by mouth once dailypredniSONE (Deltasone) 10 MG tablet TAKE 1 TABLET BY MOUTH THREE TIMES DAILY FOR 4 DAYS, then TAKE 1 TABLET BY MOUTH TWICE DAILY FOR 4 DAYS, then TAKE 1 TABLET BY MOUTH DAILY FOR 4 DAYS 05/11/2025 ActiveStart: 11-16-2024 End: 96-80-0766aofw 1 tablet by mouth in the morningpredniSONE (Deltasone) 20 MG tablet Indications: COPD with acute exacerbation (CMS/HCC) Take 1 tablet (20 mg) by mouth in the morning and 1 tablet (20 mg) in the evening. Take with meals. Do all thisfor 5 days. Take with food. 10 tablet 11/16/2024 11/21/2024 ActiveStart: 05-30-2024 End: 49-18-9742bwxz 1 tablet by mouth in the morningpredniSONE [...] tablet (20 sources)Serotonin Reuptake InhibitorStart: 12-16-2023 End: 69-51-7826zpai 1 tablet by mouth at bedtimetraZODone (Desyrel) [...] (20 sources)Cerebrovascular accident; Translations: [Cerebral infarction, unspecified]Onset: 441130-95-0245PzcjfnsAxpxojq disorders (20 sources)Other specified anxiety disorders; Translations: [Mixed anxiety and depressive disorder]Onset: 160274-94-9589OtfhubxUdkfkqx obstructive pulmonary disease and bronchiectasis (20 sources)Emphysema, unspecified; Translations: [Centrilobular emphysema] Onset: 72-54-5902GkgtpxzHqczplat mellitus without complication (6 sources)Increased glucose level; Translations: [Other abnormal glucose]Onset: 446589-33-1365QbehjijtEzfkxyuyf of lipid metabolism (20 sources)Mixed hyperlipidemia; Translations: [Mixed hyperlipidemia]Onset: 469482-46-4466QeslznlKubcnlimn usually diagnosed in infancy, childhood, or adolescence (20 sources)Wilian de la Tourette's syndrome; Translations: [Tourette's disorder]Onset: 841015-31-2163MbfpccbJjldyjdpsefzx mental health disorders (2 sources)Primary insomnia; Translations: [Primary insomnia]33-97-1537Oqgnwgf Occlusion or stenosis of precerebral arteries (20 sources)Occlusion and stenosis of bilateral carotid arteries; Translations: [Internal carotid artery stenosis]Onset: 08-04-0379EknyjstGrcsphsaltvqrn (20 sources)Osteoarthritis; Translations: [Unspecified osteoarthritis, unspecified site]Onset: 319034-45-2636GaqtlljUumca diseases of veins and lymphatics (20 sources)Calcified lymph nodes; Translations: [Other specified noninfective disorders of lymphatic vessels and lymph nodes]Onset: ChronicOther lower respiratory disease (4 sources)Shortness of breath; Translations: [SHORTNESS OF BREATH]Onset: 40-18-0143ZdutcbfeTijyd non-traumatic joint disorders (5 sources)Hip pain; Translations: [Pain in right hip]Onset: 05-17-2025 67-00-1923PdyqtkmkTjkhu upper respiratory disease (20 sources)Allergic rhinitis; Translations: [Allergic rhinitis, unspecified] Onset: 698533-25-0230GljfvllLvoppuyq codes; unclassified (1 source)Pain, unspecified; Translations: [Pain, unspecified]Onset: 07-07-2025 EpisodicSpondylosis; intervertebral disc disorders; other back problems (20 sources)Degeneration of cervical intervertebral disc; Translations: [Other cervical disc degeneration, unspecified cervical region]Onset: 10-30-2023 96-04-2627DhhcmldUrpfvovjw-related disorders (20 sources)Cannabis abuse; Translations: [Cannabis abuse, uncomplicated]Onset: 07-20-2020 Resolved: 818659-95-4967YxyxdxlEfzvebcezssa (1 source)CONTACT W/AND (SUSP) EXPOS COVID-19; Translations: [CONTACT W/AND (SUSP) EXPOS COVID-19]Onset: 67-64-1325Fnzlcpnxeytv (1 source)EOSINOPHILIA UNSPECIFIED; Translations: [EOSINOPHILIA UNSPECIFIED] Onset: 04-20-2022 Past or Other Problems Problem ClassificationProblemDateDocumented DateEpisodic/ChronicImmunizations and screening for infectious disease (18 sources)Needs influenza immunization; Translations: [Encounter for immunization]Onset: 536016-07-5615ObmfbqcjCyznbytkz (20 sources)Influenza; Translations: [Influenza due to unidentified influenza virus with other respiratory manifestations]Onset: 10-30-2023 Resolved: 639405-59-5725QfieuroqCkue disorders (11 sources)Mood disordersOnset: 02-07-2022 Resolved: ther aftercare (12 sources)Long-term current use of inhaled steroid; 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]Onset: 426374-53-6077BzsnsjvjGwdxd and unspecified benign neoplasm (20 sources)Polyp of colon; Translations: [Polyp of colon]Onset: 05-19-2024 Resolved: 043346-53-1569PmgajfsyGyzgj connective tissue disease (20 sources)Pain in right hand; Translations: [Pain in right hand]Onset: 568437-78-0640OhnanrzhHgzox lower respiratory disease (20 sources)Multiple nodules of lung; Translations: [Other nonspecific abnormal finding of lung field]Onset: 987311-56-6269HzecxdmxAtyhg nutritional; endocrine; and metabolic disorders (20 sources)Overweight in adulthood with body mass index of 25 or more but less than 30; Translations: [Body mass index (BMI) 26.0-26.9, adult]Onset: 10-30-2023 06-49-9488OfxprmuiCrtox nutritional; endocrine; and metabolic disorders (20 sources)Body mass index 25-29 - overweight; Translations: [Overweight]Onset: 408398-94-1073HlaxeatjBkumy screening for suspected conditions (not mental disorders or infectious disease) (20 sources)Encounter for screening for malignant neoplasm of respiratory organs; Translations: [Encounter for screening for malignant neoplasm of prostate]Onset: 45-80-3004XgykvrbrBwhdo skin disorders (20 sources)Papule of skin; Translations: [Other skin changes]Onset: 11-13-2023 Resolved: 081454-39-4680OocrsxzbIpzpc upper respiratory disease (20 sources)Polyp of vocal cord ; 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] Onset: 720316-75-0962WoqbhfcrXimorwqo codes; unclassified (20 sources)Insomnia; Translations: [Insomnia, unspecified]Onset: 10-30-2023 18-71-6292KplacdepWtlezlaah and history of mental health and substance abuse codes (20 sources)Personal history of nicotine dependence; Translations: [Ex-smoker] Onset: 820868-14-9256WndyblgrAezma infection (20 sources)Disease caused by 2019-nCoV; Translations: [COVID-19]Onset: 152693-44-7965Oxcazfqb Results Test NameValueInterpretationReference RangeFacilityCOMPREHENSIVE METABOLIC PANEL on 37-49-4318Xxgcdqj [Mass/Vol]3.4 g/dLNormal3.2-5.3PBrecksville VA [facility] Comment on above:Performed By: #### BEDG #### [facility] ([facility]) [address] [place] [address] VIRALP [Catalytic activity/Vol]53 U/QRmesjn84-891LlhMtmzyv [place] HospitalComment on above:Performed By: #### BEDG #### [facility] ([facility]) [address] [place] [address] VIRALT [Catalytic activity/Vol]10 U/LNormal<=40ProProvidence HospitalComment on above:Performed By: #### BEDG #### [facility] ([facility]) [address] [place] [address] VIRAnion gap [Moles/Vol]8 mmol/LNormal5-15ProAultman Orrville Hospitalca [place] HospitalComment on above:Performed By: #### BEDG #### [facility] ([facility]) [address] [place] [address] VIRAST [Catalytic activity/Vol]16 U/LNormal<=41ProAultman Orrville Hospitalca [place] HospitalComment on above:Performed By: #### BEDG #### [facility] ([facility]) [address] [place] [address] VIRBilirubin [Mass/Vol]0.9 mg/dLNormal0.3-1.2POhioHealth Berger Hospital HospitalComment on above:Performed By: #### BEDG #### [facility] ([facility]) [address] [place] [address] VIRCalcium [Mass/Vol]8.6 mg/dLNormal8.5-10.5POhioHealth Berger Hospital HospitalComment on above:Performed By: #### BEDG #### [facility] ([facility]) [address] [place] [address] VIRChloride [Moles/Vol]100 mmol/ZForxyz88-640AxlQzppxo [place] HospitalComment on above:Performed By: #### BEDG #### [facility] ([facility]) [address] [place] [address] VIRCO2 [Moles/Vol]29 mmol/QWqrpax44-68JkqBplsxx [facility] Comment on above:Performed By: #### BEDG #### [facility] ([facility]) [address] [place] [address] VIRCreatinine [Mass/Vol]0.75 mg/dLNormal0.60-1.30ProUniversity [facility] HospitalComment on above:Result Comment: METHOD TRACEABLE TO IDMS STANDARDPerformed By: #### BEDG #### [facility] ([facility]) [address] [place] [address] VIREGFR (CKD-EPI) NON-RACE DEPENDENT>^90Normal>=60ProUniversity Hospitals [facility] HospitalComment on above:Result Comment: Reported eGFR is based on the CKD-EPI 2020 equation that does not use a race coefficient.Performed By: #### BEDG #### [facility] ([facility]) [address] [place] [address] VIRGlucose [Mass/Vol]94 mg/iVGasxnw33-30ZrgHgxyyg [place] HospitalComment on above:Performed By: #### BEDG #### [facility] ([facility]) [address] [place] [address] VIRPotassium [Moles/Vol]4.0 mmol/LNormal3.5-5.0ProUniversity [facility]als [facility] HospitalComment on above:Performed By: #### BEDG #### [facility] ([facility]) [address] [place] [address] VIRProtein [Mass/Vol]5.6 g/dLLow6.0-8.0ProUniversity [facility]als [facility] HospitalComment on above:Performed By: #### BEDG #### [facility] ([facility]) [address] [place] [address] VIRSodium [Moles/Vol]137 mmol/KSuzhgr329-943TjfEjsrky [place] HospitalComment on above:Performed By: #### BEDG #### [facility] ([facility]) [address] [place] [address] VIRUrea nitrogen [Mass/Vol]14 mg/dLNormal5-27ProUniversity [facility] HospitalComment on above:Performed By: #### BEDG #### [facility] ([facility]) [address] [place] [address] VIRCOMPREHENSIVE METABOLIC PANELon 75-08-8556Ljdoqql [Mass/Vol] 3.4 g/dLNormal3.2-5.3ProMedica [place] HospitalComment on above:Performed By: #### BEDG #### [facility] ([facility]) [address] [place] [address] VIRALP [Catalytic activity/Vol]52 U/PAznskm17-639CbdUkhznf [place] HospitalComment on above:Performed By: #### BEDG #### [facility] ([facility]) [address] [place] [address] VIRALT [Catalytic activity/Vol]10 U/LNormal<=40ProAultman Orrville Hospitalca [place] HospitalComment on above:Performed By: #### BEDG #### [facility] ([facility]) [address] [place] [address] VIRAnion gap [Moles/Vol]7 mmol/LNormal5-15ProAultman Orrville Hospitalca [place] HospitalComment on above:Performed By: #### BEDG #### [facility] ([facility]) [address] [place] [address] VIRAST [Catalytic activity/Vol]17 U/LNormal<=41ProAultman Orr[facility] Hospitalca [place] HospitalComment on above:Performed By: #### BEDG #### [facility] ([facility]) [address] [place] [address] VIRBilirubin [Mass/Vol]1.0 mg/dLNormal0.3-1.2POhioHealth Berger Hospital HospitalComment on above:Performed By: #### BEDG #### [facility] ([facility]) [address] [place] [address] VIRCalcium [Mass/Vol]8.6 mg/dLNormal8.5-10.5POhioHealth Berger Hospital HospitalComment on above:Performed By: #### BEDG #### [facility] ([facility]) [address] [place] [address] VIRChloride [Moles/Vol]99 mmol/EAixonw80-761GniJeekms [place] HospitalComment on above:Performed By: #### BEDG #### [facility] ([facility]) [address] [place] [address] VIRCO2 [Moles/Vol]31 mmol/ERtfwlb79-31IyfKviiev [place] [facility] Comment on above:Performed By: #### BEDG #### [facility] ([facility]) [address] [place] [address] VIRCreatinine [Mass/Vol]0.79 mg/dLNormal0.60-1.30ProUniversity [facility] HospitalComment on above:Result Comment: METHOD TRACEABLE TO IDMS STANDARDPerformed By: #### BEDG #### [facility] ([facility]) [address] [place] [address] VIREGFR (CKD-EPI) NON-RACE DEPENDENT>^90Normal>=60ProUniversity [facility]als [facility] HospitalComment on above:Result Comment: Reported eGFR is based on the CKD-EPI 2020 equation that does not use a race coefficient.Performed By: #### BEDG #### [facility] ([facility]) [address] [place] [address] VIRGlucose [Mass/Vol]91 mg/kVKegvrp71-50NdfFmvopd [place] HospitalComment on above:Performed By: #### BEDG #### [facility] ([facility]) [address] [place] [address] VIRPotassium [Moles/Vol]4.2 mmol/LNormal3.5-5.0ProUniversity [facility] HospitalComment on above:Performed By: #### BEDG #### [facility] ([facility]) [address] [place] [address] VIRProtein [Mass/Vol]5.7 g/dLLow6.0-8.0ProUniversity [facility] HospitalComment on above:Performed By: #### BEDG #### [facility] ([facility]) [address] [place] [address] VIRSodium [Moles/Vol]137 mmol/CWudzyr701-399AhlUtdjya [place] HospitalComment on above:Performed By: #### BEDG #### [facility] ([facility]) [address] [place] [address] VIRUrea nitrogen [Mass/Vol]13 mg/dLNormal5-27ProUniversity [facility] HospitalComment on above:Performed By: #### BEDG #### [facility] ([facility]) [address] [place] [address] VIRCBC WITH AUTO DIFFERENTIALon 85-16-0699MKGWZJHLH ABSOLUTE COUNT (10*3/UL) BY AUTOMATED COUNT0.1 10*3/uLNormal0.0-0.2Pro[facility] Cleveland WestComment on above:Performed By: #### BEDG #### [facility] ([facility]) [address] [place] [address] VIRBASOPHILS RELATIVE PERCENT BY AUTOMATED COUNT0.5 %Normal [facility] HospitalComment on above:Performed By: #### BEDG #### [facility] ([facility]) [address] [place] [address] VIRCELLAVISION DIFFERENTIAL TYPEAUTOMATED DIFFERENTIALNormal [facility] HospitalComment on above:Performed By: #### BEDG #### [facility] ([facility]) [address] [place] [address] VIREosinophils (Bld) [#/Vol]0.3 10*3/uLNormal0.0-0.4[facility] HospitalComment on above:Performed By: #### BEDG #### [facility] ([facility]) [address] [place] [address] VIREOSINOPHILS RELATIVE PERCENT BY AUTOMATED COUNT3.0 %Normal [facility] HospitalComment on above:Performed By: #### BEDG #### [facility] ([facility]) [address] [place] [address] VIRErythrocyte distribution width (RBC) [Ratio]12.9 %Normal 11.5-15ProProvidence HospitalComment on above:Performed By: #### BEDG #### [facility] ([facility]) [address] [place] [address] VIRHematocrit (Bld) [Volume fraction]37.9 %Czz90-36KgkFprmyp [place] HospitalComment on above:Performed By: #### BEDG #### [facility] ([facility]) [address] [place] [address] VIRHemoglobin (Bld) [Mass/Vol]12.6 g/tFAcl80-17PihGilthx [place] HospitalComment on above:Performed By: #### BEDG #### [facility] ([facility]) [address] [place] [address] VIRLYMPHOCYTES ABSOLUTE COUNT (10*3/UL) BY AUTOMATED COUNT1.0 10*3/uLNormal1.0-3.5[facility] [place] HospitalComment on above:Performed By: #### BEDG #### [facility] ([facility]) [address] [place] [address] VIRLYMPHOCYTES RELATIVE PERCENT BY AUTOMATED COUNT10.4 %Normal [facility] [place] HospitalComment on above:Performed By: #### BEDG #### [facility] ([facility]) [address] [place] [address] VIRMCH (RBC) [Entitic mass]29.4 xwGguywr21-97WclGulrwi [place] HospitalComment on above:Performed By: #### BEDG #### [facility] ([facility]) [address] [place] [address] VIRMCHC (RBC) [Mass/Vol]33.3 g/cFBwdsok82-76IyjCddbyk [place] HospitalComment on above:Performed By: #### BEDG #### [facility] ([facility]) [address] [place] [address] VIRMCV (RBC) [Entitic vol]88 qDNvdxiv73-635VyiUftkzj [place] HospitalComment on above:Performed By: #### BEDG #### [facility] ([facility]) [address] [place] [address] VIRMONOCYTES ABSOLUTE COUNT (10*3/UL) BY AUTOMATED COUNT1.1 10*3/uLHigh0.0-0.9Pro[facility] HospitalComment on above:Performed By: #### BEDG #### [facility] [facility] [address] [facility] [place] [address] VIRMONOCYTES RELATIVE PERCENT BY AUTOMATED COUNT10.7 %Normal [facility] HospitalComment on above:Performed By: #### BEDG #### [facility] ([facility]) [address] [place] [address] VIRNEUTROPHILS ABSOLUTE COUNT BY AUTOMATED COUNT7.5 10*3/uLHigh 1.5-6.6Pro[facility] HospitalComment on above:Performed By: #### BEDG #### [facility] ([facility]) [address] [facility] [place] [address] VIRNEUTROPHILS RELATIVE PERCENT BY AUTOMATED COUNT75.4 %Normal [facility] HospitalComment on above:Performed By: #### BEDG #### [facility] ([facility]) [address] [place] [address] VIRPlatelet mean volume (Bld) [Entitic vol]7.4 fLNormal7-12 [facility] HospitalComment on above:Performed By: #### BEDG #### [facility] ([facility]) [address] [facility] [place] [address] VIRPlatelets (Bld) [#/Vol]283 10*3/qCKrvgis065-955FalSbxhkf [place] HospitalComment on above:Performed By: #### BEDG #### [facility] ([facility]) [address] [facility] [place] [address] VIRRBC COUNT4.30 X10E12/LNormal4.1-5.7[facility] Hospital Comment on above:Performed By: #### BEDG #### [facility] ([facility]) [address] [facility] [place] [place] [address] VIRWBC (Bld) [#/Vol]10.0 10*3/uLNormal4-11ProAultman Orr[facility] Hospitalca [place] HospitalComment on above:Performed By: #### BEDG #### [facility] ([facility]) [address] [place] [address] VIRCOMPREHENSIVE METABOLIC PANELon [id number] [Mass/Vol] 3.5 g/dLNormal3.2-5.3ProMed[facility] HospitalComment on above:Performed By: #### BEDG #### [facility] ([facility]) [address] [place] [address] VIRALP [Catalytic activity/Vol]56 U/UIbycys29-181GymWmxuht [place] HospitalComment on above:Performed By: #### BEDG #### [facility] ([facility]) [address] [place] [address] VIRALT [Catalytic activity/Vol]11 U/LNormal<=40Pro[facility] HospitalComment on above:Performed By: #### BEDG #### [facility] ([facility]) [address] [place] [address] VIRAnion gap [Moles/Vol]8 mmol/LNormal5-15Pro[facility] HospitalComment on above:Performed By: #### BEDG #### [facility] ([facility]) [address] [place] [address] VIRAST [Catalytic activity/Vol]18 U/LNormal<=41ProAultman Orrville Hospitalca [place] HospitalComment on above:Performed By: #### BEDG #### [facility] ([facility]) [address] [place] [address] VIRBilirubin [Mass/Vol]1.1 mg/dLNormal0.3-1.2Pro[facility] HospitalComment on above:Performed By: #### BEDG #### [facility] ([facility]) [address] [facility] [place] [address] VIRCalcium [Mass/Vol]8.9 mg/dLNormal8.5-10.5[facility] HospitalComment on above:Performed By: #### BEDG #### [facility] ([facility]) [address] [place] [address] VIRChloride [Moles/Vol]99 mmol/FRnucti63-351BxnNzjemm [place] HospitalComment on above:Performed By: #### BEDG #### [facility] ([facility]) [address] [place] [address] VIRCO2 [Moles/Vol]29 mmol/SXxdsfv31-27WdtJdasnq [place] [facility] Comment on above:Performed By: #### BEDG #### [facility] ([facility]) [address] [place] [address] VIRCreatinine [Mass/Vol]0.78 mg/dLNormal0.60-1.30ProProvidence HospitalComment on above:Result Comment: METHOD TRACEABLE TO IDMS STANDARDPerformed By: #### BEDG #### [facility] ([facility]) [address] [place] [address] VIREGFR (CKD-EPI) NON-RACE DEPENDENT>^90Normal>=60ProProvidence HospitalComment on above:Result Comment: Reported eGFR is based on the CKD-EPI 2020 equation that does not use a race coefficient.Performed By: #### BEDG #### [facility] ([facility]) [address] [place] [address] VIRGlucose [Mass/Vol]93 mg/iNMuafmv14-54AbzZmytrx [place] HospitalComment on above:Performed By: #### BEDG #### [facility] ([facility]) [address] [place] [address] VIRPotassium [Moles/Vol]4.3 mmol/LNormal3.5-5.0Pro[facility] HospitalComment on above:Performed By: #### BEDG #### [facility] ([facility]) [address] [place] [address] VIRProtein [Mass/Vol]6.0 g/dLNormal6.0-8.0Pro[facility] HospitalComment on above:Performed By: #### BEDG #### [facility] ([facility]) [address] [place] [address] VIRSodium [Moles/Vol]136 mmol/AIlwbsc886-701QvuDqbbth [place] HospitalComment on above:Performed By: #### BEDG #### [facility] ([facility]) [address] [place] [address] VIRUrea nitrogen [Mass/Vol]17 mg/dLNormal5-27Pro[facility] HospitalComment on above:Performed By: #### BEDG #### [facility] ([facility]) [address] [place] [address] VIRCBC WITH AUTO DIFFERENTIALon [id number] ABSOLUTE COUNT (10*3/UL) BY AUTOMATED COUNT0.1 10*3/uLNormal0.0-0.2PBrecksville VA / Crille HospitalComment on above:Performed By: #### BEDG #### [facility] ([facility]) [address] [place] [address] VIRBASOPHILS RELATIVE PERCENT BY AUTOMATED COUNT0.7 %Normal [facility] HospitalComment on above:Performed By: #### BEDG #### [facility] ([facility]) [address] [place] [address] VIRCELLAVISION DIFFERENTIAL TYPEAUTOMATED DIFFERENTIALNormal [facility] HospitalComment on above:Performed By: #### BEDG #### [facility] ([facility]) [address] [place] [address] VIREosinophils (Bld) [#/Vol]0.2 10*3/uLNormal0.0-0.4Pro[facility] HospitalComment on above:Performed By: #### BEDG #### [facility] ([facility]) [address] [place] [address] VIREOSINOPHILS RELATIVE PERCENT BY AUTOMATED COUNT2.1 %Normal [facility] HospitalComment on above:Performed By: #### BEDG #### [facility] ([facility]) [address] [place] [address] VIRErythrocyte distribution width (RBC) [Ratio]13.0 %Normal 11.5-15ProAultman Orr[facility] Hospitalca [place] HospitalComment on above:Performed By: #### BEDG #### [facility] ([facility]) [address] [place] [address] VIRHematocrit (Bld) [Volume fraction]38.2 %Ode81-38OdxMakvbf [place] HospitalComment on above:Performed By: #### BEDG #### [facility] ([facility]) [address] [place] [address] VIRHemoglobin (Bld) [Mass/Vol]12.9 g/rGDgm66-32GkqDfmyjp [place] HospitalComment on above:Performed By: #### BEDG #### [facility] ([facility]) [address] [place] [address] VIRLYMPHOCYTES ABSOLUTE COUNT (10*3/UL) BY AUTOMATED COUNT1.3 10*3/uLNormal1.0-3.5Pro[facility] Cleveland WestComment on above:Performed By: #### BEDG #### [facility] ([facility]) [address] [place] [address] VIRLYMPHOCYTES RELATIVE PERCENT BY AUTOMATED COUNT11.8 %Normal ProMbapt[facility] center southa [place] HospitalComment on above:Performed By: #### BEDG #### [facility] ([facility]) [address] [place] [address] VIRMCH (RBC) [Entitic mass]29.7 jbDgrldj18-85NyzVbgiwi [place] HospitalComment on above:Performed By: #### BEDG #### [facility] ([facility]) [address] [place] [address] VIRMCHC (RBC) [Mass/Vol]33.8 g/oMRzhtts44-90QrdDjnmmx [place] HospitalComment on above:Performed By: #### BEDG #### [facility] ([facility]) [address] [place] [address] VIRMCV (RBC) [Entitic vol]88 uAYfmqoo78-796DinBsnyld [place] HospitalComment on above:Performed By: #### BEDG #### [facility] ([facility]) [address] [place] [address] VIRMONOCYTES ABSOLUTE COUNT (10*3/UL) BY AUTOMATED COUNT1.1 10*3/uLHigh0.0-0.9[facility] HospitalComment on above:Performed By: #### BEDG #### [facility] ([facility]) [address] [place] [address] VIRMONOCYTES RELATIVE PERCENT BY AUTOMATED COUNT10.8 %Normal [facility] HospitalComment on above:Performed By: #### BEDG #### [facility] ([facility]) [address] [place] [address] VIRNEUTROPHILS ABSOLUTE COUNT BY AUTOMATED COUNT7.9 10*3/uLHigh 1.5-6.6[facility] HospitalComment on above:Performed By: #### BEDG #### [facility] ([facility]) [address] [place] [address] VIRNEUTROPHILS RELATIVE PERCENT BY AUTOMATED COUNT74.6 %Normal [facility] HospitalComment on above:Performed By: #### BEDG #### [facility] ([facility]) [address] [place] [address] VIRPlatelet mean volume (Bld) [Entitic vol]7.5 fLNormal7-12 [facility] HospitalComment on above:Performed By: #### BEDG #### [facility] ([facility]) [address] [place] [address] VIRPlatelets (Bld) [#/Vol]289 10*3/qBAmxqka004-030RkrDvrpxg [place] HospitalComment on above:Performed By: #### BEDG #### [facility] ([facility]) [address] [place] [address] VIRRBC COUNT4.34 X10E12/LNormal4.1-5.7Pro[facility] Hospital Comment on above:Performed By: #### BEDG #### [facility] ([facility]) [address] [place] [address] VIRWBC (Bld) [#/Vol]10.6 10*3/uLNormal4-11ProAultman Orr[facility] Hospitalca [place] HospitalComment on above:Performed By: #### BEDG #### [facility] ([facility]) [address] [place] [address] VIRCOMPREHENSIVE METABOLIC PANELon 42-23-7253Ljvesrh [Mass/Vol] 3.7 g/dLNormal3.2-5.3Pro[facility]ica [place] HospitalComment on above:Performed By: #### BEDG #### [facility] ([facility]) [address] [place] [address] VIRALP [Catalytic activity/Vol]55 U/ZRkjagj87-689BswTdxbkd [place] HospitalComment on above:Performed By: #### BEDG #### [facility] ([facility]) [address] [place] [address] VIRALT [Catalytic activity/Vol]11 U/LNormal<=40Pro[facility] HospitalComment on above:Performed By: #### BEDG #### [facility] ([facility]) [address] [place] [address] VIRAnion gap [Moles/Vol]9 mmol/LNormal5-15Pro[facility] HospitalComment on above:Performed By: #### BEDG #### [facility] ([facility]) [address] [place] [address] VIRAST [Catalytic activity/Vol]20 U/LNormal<=41ProAult[facility] Orr[facility] Hospitalca [place] HospitalComment on above:Performed By: #### BEDG #### [facility] ([facility]) [address] [place] [address] VIRBilirubin [Mass/Vol]0.9 mg/dLNormal0.3-1.2POhio[facility] HospitalComment on above:Performed By: #### BEDG #### [facility] ([facility]) [address] [place] [address] VIRCalcium [Mass/Vol]8.8 mg/dLNormal8.5-10.5POhioHealth [facility] Hospital HospitalComment on above:Performed By: #### BEDG #### [facility] ([facility]) [address] [place] [address] VIRChloride [Moles/Vol]99 mmol/DXyonqf35-503ApjCbazep [place] HospitalComment on above:Performed By: #### BEDG #### [facility] ([facility]) [address] [place] [address] VIRCO2 [Moles/Vol]29 mmol/YJapjbq46-76OsuHlszfzBrecksville [facility] Comment on above:Performed By: #### BEDG #### [facility] ([facility]) [address] [place] [address] VIRCreatinine [Mass/Vol]0.86 mg/dLNormal0.60-1.30Pro[facility] HospitalComment on above:Result Comment: METHOD TRACEABLE TO IDMS STANDARDPerformed By: #### BEDG #### [facility] ([facility]) [address] [place] [address] VIREGFR (CKD-EPI) NON-RACE DEPENDENT>^90Normal>=60Pro[facility] HospitalComment on above:Result Comment: Reported eGFR is based on the CKD-EPI 2020 equation that does not use a race coefficient.Performed By: #### BEDG #### [facility] ([facility]) [address] [place] [address] VIRGlucose [Mass/Vol]102 mg/cPSxcj80-97VyvYutthx [place] HospitalComment on above:Performed By: #### BEDG #### [facility] ([facility]) [address] [place] [address] VIRPotassium [Moles/Vol]4.1 mmol/LNormal3.5-5.0ProAultman Orrville Hospitalca [place] HospitalComment on above:Performed By: #### BEDG #### [facility] ([facility]) [address] [place] [address] VIRProtein [Mass/Vol]6.0 g/dLNormal6.0-8.0Pro[facility] HospitalComment on above:Performed By: #### BEDG #### [facility] ([facility]) [address] [place] [address] VIRSodium [Moles/Vol]137 mmol/ZGchcad434-190JubLssoby [place] HospitalComment on above:Performed By: #### BEDG #### [facility] ([facility]) [address] [place] [address] VIRUrea nitrogen [Mass/Vol]21 mg/dLNormal5-27Pro[facility] HospitalComment on above:Performed By: #### BEDG #### [facility] ([facility]) [address] [place] [address] VIRCBC WITH AUTO DIFFERENTIALon [id number] ABSOLUTE COUNT (10*3/UL) BY AUTOMATED COUNT0.0 10*3/uLNormal0.0-0.2Pro[facility] Cleveland WestComment on above:Performed By: #### CBCA #### [facility] ([facility]) [address] [place] [address] VIRBASOPHILS RELATIVE PERCENT BY AUTOMATED COUNT0.1 %Normal [facility] [place] HospitalComment on above:Performed By: #### CBCA #### [facility] ([facility]) [address] [place] [address] VIRCELLAVISION DIFFERENTIAL TYPEAUTOMATED DIFFERENTIALNormal [facility] HospitalComment on above:Performed By: #### CBCA #### [facility] ([facility]) [address] [place] [address] VIREosinophils (Bld) [#/Vol]0.0 10*3/uLNormal0.0-0.4ProAultman Orrville Hospitalca [place] HospitalComment on above:Performed By: #### CBCA #### [facility] ([facility]) [address] [place] [address] VIREOSINOPHILS RELATIVE PERCENT BY AUTOMATED COUNT0.0 %Normal [facility] HospitalComment on above:Performed By: #### CBCA #### [facility] ([facility]) [address] [place] [address] VIRErythrocyte distribution width (RBC) [Ratio]13.4 %Normal 11.5-15Pro[facility] HospitalComment on above:Performed By: #### CBCA #### [facility] ([facility]) [address] [place] [address] VIRHematocrit (Bld) [Volume fraction]39.2 %Xxfgpm05-64MikUlzrwx [place] HospitalComment on above:Performed By: #### CBCA #### [facility] ([facility]) [address] [place] [address] VIRHemoglobin (Bld) [Mass/Vol]13.0 g/yAZxclek93-95NcxPigwsi [place] HospitalComment on above:Performed By: #### CBCA #### [facility] ([facility]) [address] [place] [address] VIRLYMPHOCYTES ABSOLUTE COUNT (10*3/UL) BY AUTOMATED COUNT0.7 10*3/uLLow1.0-3.5[facility] [place] HospitalComment on above:Performed By: #### CBCA #### [facility] ([facility]) [address] [place] [address] VIRLYMPHOCYTES RELATIVE PERCENT BY AUTOMATED COUNT5.3 %Normal [facility] [place] HospitalComment on above:Performed By: #### CBCA #### [facility] ([facility]) [address] [place] [address] VIRMCH (RBC) [Entitic mass]29.1 tsWzbmnh49-14JfkOtccpa [facility] HospitalComment on above:Performed By: #### CBCA #### [facility] ([facility]) [address] [place] [address] VIRMCHC (RBC) [Mass/Vol]33.1 g/tBBhkmev90-55OfuLidvoy [facility] HospitalComment on above:Performed By: #### CBCA #### [facility] ([facility]) [address] [place] [address] VIRMCV (RBC) [Entitic vol]88 jTFwehtg83-192NgiKhpovx [place] HospitalComment on above:Performed By: #### CBCA #### [facility] ([facility]) [address] [place] [address] VIRMONOCYTES ABSOLUTE COUNT (10*3/UL) BY AUTOMATED COUNT1.3 10*3/uLHigh0.0-0.9[facility] [place] HospitalComment on above:Performed By: #### CBCA #### [facility] ([facility]) [address] [place] [address] VIRMONOCYTES RELATIVE PERCENT BY AUTOMATED COUNT9.7 %Normal [facility] [place] HospitalComment on above:Performed By: #### CBCA #### [facility] ([facility]) [address] [place] [address] VIRNEUTROPHILS ABSOLUTE COUNT BY AUTOMATED COUNT11.2 10*3/uL High1.5-6.6Pro[facility] HospitalComment on above:Performed By: #### CBCA #### [facility] ([facility]) [address] [place] [address] VIRNEUTROPHILS RELATIVE PERCENT BY AUTOMATED COUNT84.9 %Normal [facility]MS[facility] HospitalComment on above:Performed By: #### CBCA #### [facility] ([facility]) [address] [place] [address] VIRPlatelet mean volume (Bld) [Entitic vol]7.7 fLNormal7-12 ProMSamaritan Hospital HospitalComment on above:Performed By: #### CBCA #### [facility] ([facility]) [address] [place] [address] VIRPlatelets (Bld) [#/Vol]337 10*3/nBLbuqdz645-007UgqYkyshn [place] HospitalComment on above:Performed By: #### CBCA #### [facility] ([facility]) [address] [place] [address] VIRRBC COUNT4.46 X10E12/LNormal4.1-5.7Pro[facility] Hospital Comment on above:Performed By: #### CBCA #### [facility] ([facility]) [address] [place] [address] VIRWBC (Bld) [#/Vol]13.3 10*3/uLHigh4-11ProProvidence HospitalComment on above:Performed By: #### CBCA #### [facility] ([facility]) [address] [place] [address] VIRCOMPREHENSIVE METABOLIC PANELon 48-21-0019Fpuujab [Mass/Vol] 3.9 g/dLNormal3.2-5.3[facility] [place] HospitalComment on above:Performed By: #### CMP #### [facility] ([facility]) [address] [place] [address] VIRALP [Catalytic activity/Vol]58 U/UAcxavh37-894NnrVeqiee [place] HospitalComment on above:Performed By: #### CMP #### [facility] ([facility]) [address] [place] [address] VIRALT [Catalytic activity/Vol]13 U/LNormal<=40[facility] HospitalComment on above:Performed By: #### CMP #### [facility] ([facility]) [address] [place] [address] VIRAnion gap [Moles/Vol]7 mmol/LNormal5-15[facility] HospitalComment on above:Performed By: #### CMP #### [facility] ([facility]) [address] [place] [address] VIRAST [Catalytic activity/Vol]19 U/LNormal<=41[facility] HospitalComment on above:Performed By: #### CMP #### [facility] ([facility]) [address] [place] [address] VIRBilirubin [Mass/Vol]0.8 mg/dLNormal0.3-1.2[facility] HospitalComment on above:Performed By: #### CMP #### [facility] ([facility]) [address] [place] [address] VIRCalcium [Mass/Vol]9.0 mg/dLNormal8.5-10.5[facility] HospitalComment on above:Performed By: #### CMP #### [facility] ([facility]) [address] [place] [address] VIRChloride [Moles/Vol]102 mmol/FMwrmnn21-120UlcRzlmtx [facility] HospitalComment on above:Performed By: #### CMP #### [facility] ([facility]) [address] [place] [address] VIRCO2 [Moles/Vol]28 mmol/YErtpjf66-97AmtWkwwqh [facility] Comment on above:Performed By: #### CMP #### [facility] ([facility]) [address] [place] [address] VIRCreatinine [Mass/Vol]0.78 mg/dLNormal0.60-1.30[facility] HospitalComment on above:Result Comment: METHOD TRACEABLE TO IDMS STANDARDPerformed By: #### CMP #### [facility] ([facility]) [address] [place] [id number] VIREGFR (CKD-EPI) NON-RACE DEPENDENT>^90Normal>=60[facility] HospitalComment on above:Result Comment: Reported eGFR is based on the CKD-EPI 2020 equation that does not use a race coefficient.Performed By: #### CMP #### [facility] ([facility]) [address] [place] [address] VIRGlucose [Mass/Vol]90 mg/eGFezmhh93-30AjpYjfapr [place] HospitalComment on above:Performed By: #### CMP #### [facility] ([facility]) [address] [place] [address] VIRPotassium [Moles/Vol]4.3 mmol/LNormal3.5-5.0[facility] [place] HospitalComment on above:Performed By: #### CMP #### [facility] ([facility]) [address] [place] [address] VIRProtein [Mass/Vol]6.5 g/dLNormal6.0-8.0[facility] HospitalComment on above:Performed By: #### CMP #### [facility] ([facility]) [address] [place] [address] VIRSodium [Moles/Vol]137 mmol/EYwuplo093-446KiyHmfcwm [place] HospitalComment on above:Performed By: #### CMP #### [facility] ([facility]) [address] [place] [address] VIRUrea nitrogen [Mass/Vol]20 mg/dLNormal5-27[facility] [place] HospitalComment on above:Performed By: #### CMP #### [facility] ([facility]) [address] [place] [address] VIRFL SWALLOW MOTILITY FUNCTIONon 67-79-4752KX SWALLOW MOTILITY FUNCTIONFL SWALLOW MOTILITY FUNCTION FL [...] by Denny Parekh MD on 07/08/2025 1:55 PMNormalSuburban Community Hospital & Brentwood HospitalLIPID PROFILEon 25-49-3603Pxuurcbujqe [Mass/Vol]111 mg/fBDhk788-019 [facility] Cleveland WestComment on above:Order Comment: fastingPerformed By: #### BEDG #### [facility] ([facility]) [address] [place] [address] VIRCholesterol in HDL [Mass/Vol]48 mg/dLNormal>39[facility] HospitalComment on above:Order Comment: fastingResult Comment: HDL <40 mg/dL - High Risk HDL > or = 40mg/dL- Desirable HDL >60 mg/dL - Negative RiskPerformed By: #### BEDG #### [facility] ([facility]) [address] [place] [address] VIRCholesterol in LDL [Mass/Vol]51 mg/dLNormal<130[facility] HospitalComment on above:Order Comment: fastingResult Comment: LDL <100 mg/dL - Desirable LDL >160 mg/dL - High RiskPerformed By: #### BEDG #### [facility] ([facility]) [address] [place] [address] VIRCHOLESTEROL:HDL2.7Xcrkoa4.0-5.0Pro[facility] Comment on above:Order Comment: fastingPerformed By: #### BEDG #### [facility] ([facility]) [address] [place] [address] VIRTriglyceride [Mass/Vol]59 mg/eRTvnpvj05-892QlyGrvaxh [place] HospitalComment on above:Order Comment: fastingPerformed By: #### BEDG #### [facility] ([facility]) [address] [place] [address] VIRVERY LOW SUKBUCVAQPL42 mg/dLNormal0-30ProProvidence HospitalComment on above:Order Comment: fastingPerformed By: #### BEDG #### [facility] ([facility]) [address] [place] [address] VIRB-TYPE NATRIURETIC PEPTIDEon 11-08-8390Gdkftrjzazk peptide B (Bld) [Mass/Vol]45 pg/mLNormal<=100ProProvidence HospitalComment on above: Performed By: #### BNP #### [facility] ([facility]) [address] [place] [address] VIRBEDSIDE GLUCOSEon 49-26-0236Wdidsud [Mass/Vol]117 mg/dLHigh 65-99ProProvidence HospitalComment on above:Performed By: #### BEDG #### [facility] ([facility]) [address] [place] [address] VIRCBC WITH AUTO DIFFERENTIALon 15-45-1314TWMXUVACO ABSOLUTE COUNT (10*3/UL) BY AUTOMATED COUNT0.0 10*3/uLNormal0.0-0.2ProMedRiverside Methodist HospitalComment on above:Performed By: #### CBCA #### [facility] ([facility]) [address] [place] [address] VIRBASOPHILS RELATIVE PERCENT BY AUTOMATED COUNT0.3 %Normal [facility] HospitalComment on above:Performed By: #### CBCA #### [facility] ([facility]) [address] [place] [address] VIRCELLAVISION DIFFERENTIAL TYPEAUTOMATED DIFFERENTIALNormal [facility] HospitalComment on above:Performed By: #### CBCA #### [facility] ([facility]) [address] [place] [address] VIREosinophils (Bld) [#/Vol]0.0 10*3/uLNormal0.0-0.4ProAultman Orrville Hospitalca [place] HospitalComment on above:Performed By: #### CBCA #### [facility] ([facility]) [address] [place] [address] VIREOSINOPHILS RELATIVE PERCENT BY AUTOMATED COUNT0.1 %Normal [facility] HospitalComment on above:Performed By: #### CBCA #### [facility] ([facility]) [address] [place] [address] VIRErythrocyte distribution width (RBC) [Ratio]12.8 %Normal 11.5-15ProAultman Orrville Hospitalca [place] HospitalComment on above:Performed By: #### CBCA #### [facility] ([facility]) [address] [place] [address] VIRHematocrit (Bld) [Volume fraction]40.0 %Nvxjji40-33UwjBhqnxr [place] HospitalComment on above:Performed By: #### CBCA #### [facility] ([facility]) [address] [place] [address] VIRHemoglobin (Bld) [Mass/Vol]13.3 g/pLVtkrdz17-55WhxRkjbdq [place] HospitalComment on above:Performed By: #### CBCA #### [facility] ([facility]) [address] [place] [address] VIRLYMPHOCYTES ABSOLUTE COUNT (10*3/UL) BY AUTOMATED COUNT0.2 10*3/uLLow1.0-3.5[facility] [place] HospitalComment on above:Performed By: #### CBCA #### [facility] ([facility]) [address] [place] [address] VIRLYMPHOCYTES RELATIVE PERCENT BY AUTOMATED COUNT2.4 %Normal ProMSamaritan Hospital HospitalComment on above:Performed By: #### CBCA #### [facility] ([facility]) [address] [place] [address] VIRMCH (RBC) [Entitic mass]29.4 mcHxolwe98-91BotYpckkw [place] HospitalComment on above:Performed By: #### CBCA #### [facility] ([facility]) [address] [place] [address] VIRMCHC (RBC) [Mass/Vol]33.4 g/zRJrrnim27-92EzsQfvpit [place] HospitalComment on above:Performed By: #### CBCA #### [facility] ([facility]) [address] [place] [address] VIRMCV (RBC) [Entitic vol]88 cQOizeff18-396DnlMgouff [place] HospitalComment on above:Performed By: #### CBCA #### [facility] ([facility]) [address] [place] [address] VIRMONOCYTES ABSOLUTE COUNT (10*3/UL) BY AUTOMATED COUNT0.1 10*3/uLNormal0.0-0.9ProUniversity [facility] HospitalComment on above:Performed By: #### CBCA #### [facility] ([facility]) [address] [place] [address] VIRMONOCYTES RELATIVE PERCENT BY AUTOMATED COUNT0.9 %Normal [facility]MSamaritan Hospital HospitalComment on above:Performed By: #### CBCA #### [facility] ([facility]) [address] [place] [address] VIRNEUTROPHILS ABSOLUTE COUNT BY AUTOMATED COUNT9.2 10*3/uLHigh 1.5-6.6ProAultman Orrville Hospitalca [place] HospitalComment on above:Performed By: #### CBCA #### [facility] ([facility]) [address] [place] [address] VIRNEUTROPHILS RELATIVE PERCENT BY AUTOMATED COUNT96.3 %Normal [facility]MSamaritan Hospital HospitalComment on above:Performed By: #### CBCA #### [facility] ([facility]) [address] [place] [address] VIRPlatelet mean volume (Bld) [Entitic vol]7.5 fLNormal7-12 ProMSamaritan Hospital HospitalComment on above:Performed By: #### CBCA #### [facility] ([facility]) [address] [place] [address] VIRPlatelets (Bld) [#/Vol]314 10*3/qBDkebld752-978BzeGgjqim [place] HospitalComment on above:Performed By: #### CBCA #### [facility] ([facility]) [address] [place] [address] VIRRBC COUNT4.53 X10E12/LNormal4.1-5.7Pro[facility] Comment on above:Performed By: #### CBCA #### [facility] ([facility]) [address] [place] [address] VIRWBC (Bld) [#/Vol]9.5 10*3/uLNormal4-11ProUniversity [facility] HospitalComment on above:Performed By: #### CBCA #### [facility] ([facility]) [address] [place] [address] VIRCOMPREHENSIVE METABOLIC PANELon 07-86-3420Upjdolr [Mass/Vol] 4.0 g/dLNormal3.2-5.3[facility] [place] HospitalComment on above:Performed By: #### CMP #### [facility] ([facility]) [address] [place] [address] VIRALP [Catalytic activity/Vol]63 U/WOygzeu75-929WdeKnziay [place] HospitalComment on above:Performed By: #### CMP #### [facility] ([facility]) [address] [place] [address] VIRALT [Catalytic activity/Vol]14 U/LNormal<=40[facility] HospitalComment on above:Performed By: #### CMP #### [facility] ([facility]) [address] [place] [address] VIRAnion gap [Moles/Vol]7 mmol/LNormal5-15[facility] HospitalComment on above:Performed By: #### CMP #### [facility] ([facility]) [address] [place] [address] VIRAST [Catalytic activity/Vol]16 U/LNormal<=41[facility] [place] HospitalComment on above:Performed By: #### CMP #### [facility] ([facility]) [address] [place] [address] VIRBilirubin [Mass/Vol]0.7 mg/dLNormal0.3-1.2ProMedMount [facility] HospitalComment on above:Performed By: #### CMP #### [facility] ([facility]) [address] [place] [address] VIRCalcium [Mass/Vol]8.8 mg/dLNormal8.5-10.5ProMedMount St. [facility] HospitalComment on above:Performed By: #### CMP #### [facility] ([facility]) [address] [place] [address] VIRChloride [Moles/Vol]100 mmol/JKkpvmr35-852FomXkrgwf [place] HospitalComment on above:Performed By: #### CMP #### [facility] ([facility]) [address] [place] [address] VIRCO2 [Moles/Vol]30 mmol/HLkjlig04-32RrbRktaws [facility] Comment on above:Performed By: #### CMP #### [facility] ([facility]) [address] [place] [address] VIRCreatinine [Mass/Vol]0.92 mg/dLNormal0.60-1.30ProUniversity [facility] HospitalComment on above:Result Comment: METHOD TRACEABLE TO IDMS STANDARDPerformed By: #### CMP #### [facility] ([facility]) [address] [place] [address] VIREGFR (CKD-EPI) NON-RACE DEPENDENT>^90Normal>=60ProUniversity [facility]als [facility] HospitalComment on above:Result Comment: Reported eGFR is based on the CKD-EPI 2020 equation that does not use a race coefficient.Performed By: #### CMP #### [facility] ([facility]) [address] [place] [address] VIRGlucose [Mass/Vol]124 mg/fFJkes62-84ZdoYcaipk [place] HospitalComment on above:Performed By: #### CMP #### [facility] ([facility]) [address] [place] [address] VIRPotassium [Moles/Vol]3.9 mmol/LNormal3.5-5.0ProUniversity [facility] HospitalComment on above:Performed By: #### CMP #### [facility] ([facility]) [address] [place] [address] VIRProtein [Mass/Vol]6.6 g/dLNormal6.0-8.0ProUniversity [facility] HospitalComment on above:Performed By: #### CMP #### [facility] ([facility]) [address] [place] [address] VIRSodium [Moles/Vol]137 mmol/WMniids610-804ToiCgcwpu [place] HospitalComment on above:Performed By: #### CMP #### [facility] ([facility]) [address] [place] [address] VIRUrea nitrogen [Mass/Vol]17 mg/dLNormal5-27ProProvidence HospitalComment on above:Performed By: #### CMP #### [facility] ([facility]) [address] [place] [address] VIRCT CEREBRAL PERF ANALYSISon 10-79-1688YB CEREBRAL PERF ANALYSISCT CEREBRAL PERF ANALYSIS CT [...] by Kishore Thomas MD on 07/07/2025 2:47 PMNormalProProvidence HospitalHEMOGLOBIN A1Con 56-04-7765Ppjwrwi [Mass/Vol]117 mg/dLNormalProProvidence HospitalComment on above:Performed By: #### HA1C #### [facility] ([facility]) [address] [place] [address] GTJRgY3g (Bld) [Mass fraction]5.7 %High4.4-5.6ProProvidence HospitalComment on above:Result Comment: ADA Guidelines Result HgbA1c Normal : less than 5.7 % Prediabetes : 5.7 % to 6.4 % Diabetes : > 6.4 % Use with caution in patients with abnormal hemoglobin variants as the half-life of red blood cells and in vivo glycation rates are affected.Performed By: #### HA1C #### [facility] ([facility]) [address] [place] [address] VIRMR BRAIN WO CONTon 48-83-6925NC BRAIN WO CONTMR BRAIN WO CONT MRI [...] by Mich Diaz MD on 07/07/2025 9:12 [facility] VWon 05-36-8532FF CHEST 1 VWXR CHEST 1 VW Single view chest History: Difficulty breathing, shortness of breath Comparison: 03/08/2022 Impression: No acute pulmonary process. No pneumothorax or pleural effusion. Nonenlarged heart. Finalized by Mark Anthony MD on 07/07/2025 7:20 [facility] 2Von 98-43[place] [address] XRay Report Signed Patient: SAM CARRASCO MR#: [id number] : 1960 Acct:[id number] Age/Sex: 64 / M ADM Date: 11/16/24 Loc: RAD Attending Dr: Azul Quezada NP Ordering Physician: Azul Quezada NP Date of Service: 11/16/24 Procedure(s): XR chest 2V Accession Number(s): [id number] cc: Azul Quezada NP [address] [address] Patient Name: SAM CARRASCO MRN: [id number] date: 1960 Sex: M Assigned Patient Location: RAD Current Patient Location: RAD Accession/Order Number: [id number] Exam Date: 11/16/2024 19:23 Report Date: 11/16/2024 [...] Carlos Knight M.D.11/16/2024 7:24 PM Dictation Location: [place] [address] Electronically authenticated by: [id number] Y Date: 11/16/2024 19:24 Dictated By: Carlos Knight M.D. Signed By: 11/16/241925 DD/ 23 TD/TT: Stocking Inspector:JACKELYNHRadiology, Radiologist, - 11/16/2024 [address] [place] [id number] XRay Report Signed Patient: SAM CARRASCO MR#: [id number] : 1960 Acct:[id number] Age/Sex: 64 / M ADM Date: 11/16/24 Loc: RAD Attending Dr: Azul Quezada NP Ordering Physician: Azul Quezada NP Date of Service: 11/16/24 Procedure(s): XR chest 2V Accession Number(s): [id number] cc: Azul Quezada NP [facility] [place] [id number] Patient Name: SAM CARRASCO MRN: [id number] date: 1960 Sex: M Assigned Patient Location: RAD Current Patient Location: RAD Accession/Order Number: [id number] Exam Date: 11/16/2024 19:23 Report Date: 11/16/2024 [...] Carlos Knight M.D.11/16/2024 7:24 PM Dictation Location: [place] [address] Electronically authenticated by: [id number] Y Date: 11/16/2024 19:24 Dictated By: Carlos Knight M.D. Signed By: 11/16/241925 DD/ 23 TD/TT: Stocking Inspector: KAELYN HealthcareRadiology Study observation (narrative)[facility] HealthcareXR CHEST 2V Ordered By: Radiologist Radiology on 57-73-6507DNUM [facility] Work Phone: aLL HEMOGLOBINon 69-82-6077Tkqhbhgjjf (Bld) [Mass/Vol] 14.8 g/dL14.0 - 18.0 g/dLNOMO HealthcareCLINISYNCNOMS HealthcareCT LUNG SCREENING LOW DOSEon 77-94-7180Qqv[address] [address] [address] Scan Report Signed Patient: SAM CARRASCO MR#: [id number] : 1960 Acct:[id number] Age/Sex: 64 / M ADM Date: 09/06/24 Loc: CT Attending Dr: Jameson White D.O. Ordering Physician: Jameson White D.O. Date of Service: 09/06/24 Procedure(s): CT lung screening low-dose Accession Number(s): [id number] cc: Azul Quezada NP [address] [address] Patient Name: SAM CARRASCO MRN: [id number] date: 1960 Sex: M Assigned Patient Location: CT Current Patient Location: Accession/Order Number: [id number] Exam Date: 09/06/2024 14:22 Report Date: 09/08/2024 [...] M.D. Signed By: 09/08/24 0551 DD/ TD/TT: Stocking Inspector:TBHRadiology, Radiologist, - 09/08/2024 [place] [address] CT Scan Report Signed Patient: SAM CARRASCO MR#: [id number] : 1960 Acct:[id number] Age/Sex: 64 / M ADM Date: 09/06/24 Loc: CT Attending Dr: Jameson White D.O. Ordering Physician: Jameson White D.O. Date of Service: 09/06/24 Procedure(s): CT lung screening low-dose Accession Number(s): [id number] cc: Azul Quezada NP The [address] [address] Patient Name: SAM CARRASCO MRN: [id number] date: 1960 Sex: M Assigned Patient Location: CT Current Patient Location: Accession/Order Number: [id number] Exam Date: 09/06/2024 14:22 Report Date: 09/08/2024 [...] Olson M.D. Signed By: 09/08/2451 DD/ TD/TT: Stocking Inspector: [facility] HealthcareRadiology Study observation (narrative)[facility] HealthcareCT LUNG SCREENING LOW DOSEOrdered By: Radiologist Radiology on 24-34-8222QJZE [employer] Work Phone: PSA TOTAL+% FREEon 09-07-2024% FREE PSA26.0 %.[facility] HealthcareComment on above:The table below lists [...] any other population of men. Performed at: [facility] [id number] Dry Man: Mich Orozco PhD, Phone: [phone] Prostate specific Ag [Mass/Vol]1.0 ng/mL0.0 - 4.0 ng/mLNHILLCREST MEDICAL CENTER – TULSA HealthcareComment on above:Darlin ECLIA methodology. According to the [place] [employer], Serum PSA should decrease and [...] FREE0.26 ng/mLN/ANOMS HealthcareComment on above:Darlin ECLIA methodology. CLINISYClaiborne County HospitalALL CBC WITH AUTO DIFFon 95-82-9261PFUVPXAVX ABSOLUTE AUTO0.1NOMS HealthcareBasophils/100 WBC (Bld)0.9 %0.2 - 2.0 %[facility] Eosinophils/100 WBC (Bld)0.1 %Low0.9 - 7.0 %[facility] HospitalErythrocyte distribution width (RBC) [Ratio]12.8 %11.0 - 15.0 %[facility] HospitalHematocrit (Bld) [Volume fraction]43.1 %42.0 - 54.0 %[facility] HospitalHemoglobin (Bld) [Mass/Vol]13.9 g/dLLow14.0 - 18.0 g/dLSaint John's Aurora Community HospitalIMMATURE GRANULOCYTES ABS AUTO0.03NOSaint John's [facility] Community HospitalImmature granulocytes/100 WBC (Bld)0.3 %0.0 - 0.5 %[facility] HospitalInterpretation and review of laboratory resultsAbnormalSaint [facility] LYMPHOCYTES ABSOLUTE AUTO1.2NOMS [facility] HospitalLymphocytes/100 WBC (Bld)14 %Low20.5 - 60.0 %[facility] CenterH (RBC) [Entitic mass]30.3 pg25.9 - 34.0 pgMoberly Regional Medical CenterHC (RBC) [Mass/Vol]32.3 g/dL29.9 - 35.2 g/dLMoberly Regional Medical CenterV (RBC) [Entitic vol]94.1 iAYqvm59.0 - 94.0 fLSaint John's Aurora Community HospitalMONOCYTES ABSOLUTE AUTO0.9 HighLONE PEAK HOSPITAL HealthcareMonocytes/100 WBC (Bld)9.7 %1.7 - 12.0 %[facility] NEUTROPHILS ABSOLUTE AUTO6.5NOSaint John's Aurora Community HospitalNeutrophils/100 WBC (Bld)75 %43.0 - 75.0 %[facility] HospitalPlatelet mean volume (Bld) [Entitic vol]10.1 fL9.5 - 13.5 fLNOMS HealthcareTBH EO #0NOMS HealthcareTBH [id number] HealthcareTBH RBC4.58Low NOMS HealthcareTBH WBC8.7NOMS HealthcareCLINISYNCNOMS HealthcareTBH UA (CLEAN/CATCH) MICROSCOPIC IF INDICATEon 37-70-8481MBDXXZEJX URINENegative NEGATIVENOMS HealthcareBLOOD URINENegativeNEGATIVENOMS HealthcareClarity (U) CLEARCLEARNOMS HealthcareColor (U)LT. YELLOWYELLOWNOMS HealthcareGLUCOSE URINE UANegativeNEGATIVE mg/dLNOMO HealthcareInterpretation and review of laboratory resultsAbnormalNOMS HealthcareKetones Ql (U)NegativeNEGATIVE mg/dLNOMS HealthcareLeukocyte esterase Test strip Ql (U)SMALLAbnormalNEGATIVENOMS HealthcareNITRITE URINENegativeNEGATIVENOMS HealthcarepH (U)6.0 [pH]5.0 - 9.0 N[facility]S HealthcarePROTEIN URINENegativeNEG/TRACE mg/dLNOMS HealthcareSPECIFIC GRAVITY URINE1.0151.005 - 1.025NOMO HealthcareURINE MICROSCOPIC INDICATEDYESNOMS HealthcareUROBILINOGEN URINE0.2 EU/dL0.2 - 1.0 EU/dLNOMO HealthcareCLINISYNC NOMS HealthcareBNPon 44-88-4978Hretxbxqspt peptide B (Bld) [Mass/Vol]42.0 pg/mL Normal<=900.0The [facility] HospitalComment on above:Performed By: #### INFLUAB #### [facility] [address] [place] [address] Dr. Tom Mendez AUTO DIFFon 31-21-4856BCCE #0.1 103/ulNormal0.0-0.1The [facility] HospitalComment on above:Performed By: #### CBC #### [facility] [address] [place] [address] [address] Tom Santiagosophils/100 WBC (Bld)0.8 %Normal0.2-2.0[facility] Comment on above:Performed By: #### CBC #### [facility] [address] [place] [address] [address] Santos ChangEPrimo #0.0 103/ulNormal0.0-0.7The [facility] HospitalComment on above: Performed By: #### CBC #### [facility] [address] [place] [address] Dr. Tom Mannosinophils/100 WBC (Bld)0.0 %Critically low0.9-7.0The [facility] HospitalComment on above:Performed By: #### CBC #### [facility] [address] [place] [address] Dr. Tom Mannrythrocyte distribution width (RBC) [Ratio]12.4 %Dazcoe71.0-15.0 The [facility] HospitalComment on above:Performed By: #### CBC #### [facility] [address] [place] [address] Dr. Tom DotsonHematocrit (Bld) [Volume fraction]43.6 %Rjtwtl79.0-54.0The [facility] HospitalComment on above:Performed By: #### CBC #### [facility] [address] [place] [address] Dr. Tom DotsonHemoglobin (Bld) [Mass/Vol]14.3 g/yVLqusel76.0-18.0The [facility] HospitalComment on above:Performed By: #### CBC #### [facility] [address] [place] [address] Dr. Tom Salgado #0.02 10e3/ulNormal0.00-0.03The [facility] HospitalComment on above:Performed By: #### CBC #### [facility] [address] [place] [address] Dr. Tom Salgado %0.3 %Normal0.0-0.5The [facility] HospitalComment on above: Performed By: #### CBC #### [facility] [address] [place] [address] Dr. Tom MenjivarH #1.4 103/ulNormal1.2-3.8[facility]Comment on above:Performed By: #### CBC #### [facility] [address] [place] [address] Dr. Tom Lugomphocytes/100 WBC (Bld)17.3 %Critically low20.5-60.0[facility] HospitalComment on above:Performed By: #### CBC #### [facility] [address] [place] [address] Dr. Tom Tang DIFF REQNONormalThe [facility] HospitalComment on above: Performed By: #### CBC #### [facility] [address] [place] [address] Dr. Tom Anderson (RBC) [Entitic mass]29.8 pdOqvxlb71.9-34.0[facility] HospitalComment on above:Performed By: #### CBC #### [facility] [address] [place] [address] Dr. Tom Anderson (RBC) [Mass/Vol]32.8 g/zTXdkubu31.9-35.2The [facility] HospitalComment on above:Performed By: #### CBC #### [facility] [address] [place] [address] Dr. Tom Briggs (RBC) [Entitic vol]90.8 tSPqkunm61.0-94.0The [facility] Community HospitalComment on above:Performed By: #### CBC #### [facility] [address] [place] [address] Dr. Tom Baires #0.7 103/ulNormal0.3-0.8The [facility] HospitalComment on above:Performed By: #### CBC #### [facility] [address] [place] [address] Dr. Tom Phanocytes/100 WBC (Bld)9.4 %Normal1.7-12.0[facility] Comment on above:Performed By: #### CBC #### [facility] [address] [place] [address] Dr. Tom Kevin #5.7 103/ulNormal1.4-6.5The [facility] HospitalComment on above:Performed By: #### CBC #### [facility] [address] [place] [address] Dr. Tom Watermanophils/100 WBC (Bld)72.2 %Lraxrr29.0-75.0The [facility] HospitalComment on above:Performed By: #### CBC #### [facility] [address] [place] [address] Dr. Tom Monroy mean volume (Bld) [Entitic vol]9.6 fLNormal9.5-13.5The [facility] HospitalComment on above:Performed By: #### CBC #### [facility] [address] [place] [address] Dr. Tom PoeT331 103/nvOtrmea309-043Fnh [facility] HospitalComment on above: Performed By: #### CBC #### [facility] [address] [place] [address] Dr. Tom DotsonRBC4.80 106/ulNormal4.70-6.10The [facility] HospitalComment on above:Performed By: #### CBC #### [facility] [address] [place] [address] Dr. Tom DotsonWBC7.8 103/ulNormal4.0-11.0The [facility] HospitalComment on above: Performed By: #### CBC #### [facility] [address] [place] [address] Dr. Tom Pro BLOODon 18-78-6074Hpluhmvlvjc examination of blood, cultureCulture Observations: NO GROWTH AT 5 DAYS.NormalThe [facility] Community HospitalComment on above:Performed By: #### INFLUAB #### [facility] [address] [place] [address] Dr. Tom DotsonMicroscopic examination of blood, cultureCulture Observations: NO GROWTH AT 5 DAYS.NormalThe [facility] Community HospitalComment on above:Performed By: #### INFLUAB #### [facility] [address] [place] [address] Dr. Tom DotsonCovid-19 PCR (CVDTB)on 72-67-5399XIIH-CoV-2 (COVID-19) RNA OLGA+probe Ql (Unsp spec)Not detectedNormalNOT DETECTEDThe [facility] Comment on above:Result Comment: When diagnostic [...] for this test is supported by the [employer]ist of Health and Human Service's declaration that [...] longer be used).Performed By: #### CVDTBH #### [facility] [address] [place] [address] Dr. Tom Carvalho AND B AGon [id number] Health [facility] on above:Result Comment: Negative for Flu A protein angiten. Infection due to Flu A cannot be ruled out. FluA angiten in the sample may be below the detection limit of the test.Performed By: #### INFLUAB #### [facility] [address] [place] [address] Dr. Tom LagosNEGPABLO [facility] on above: Result Comment: Negative for Flu B protein antigen. Infection due to Flu B cannot be ruled out. FluB antigen in the sample may be below the detection limit of the test.Performed By: #### INFLUAB #### [facility] [address] [place] [address] Dr. Tom Carvalho AGNegativeNormalNEGATIVE SEE COMMENTThe [facility] on above:Performed By: #### INFLUAB #### [facility] [address] [place] [address] Dr. Tom Chavez AGNegativeNormalNEGATIVE SEE COMMENTThe Joel HospitalComment on above:Performed By: #### INFLUAB #### [facility] [address] [address] [address] Tom DotsonLACTATE/LACTIC ACIDon 33-28-4496Srndjaz [Moles/Vol]0.7 mmol/L Normal0.4-1.9The [facility] HospitalComment on above:Performed By: #### LACT #### [facility] [address] [address] [address] Tom DotsonPROF CHEM 8 (BAS METB)on 03-58-5787Lwzxc gap [Moles/Vol]9.3 mmol/LNormalThe [facility] Community HospitalComment on above:Performed By: #### HSTROPN, BMP, BNP #### [facility] [address] [place] [address] Dr. Tom DotsonCalcium [Mass/Vol]8.8 mg/dLNormal8.5-10.1[facility] Comment on above:Performed By: #### HSTROPN, BMP, BNP #### [facility] [address] [place] [address] Dr. Tom DotsonChloride [Moles/Vol]103 mmol/DKzhxny28-511Qfu [facility] Comment on above:Performed By: #### HSTROPN, BMP, BNP #### [facility] [address] [place] [address] Dr. Tom DotsonCO2 [Moles/Vol]31.1 mmol/KMlonnf98.0-32.0[facility] Comment on above:Performed By: #### HSTROPN, BMP, BNP #### [facility] [address] [place] [address] Dr. Tom DotsonCreatinine [Mass/Vol]0.77 mg/dLNormal0.70-1.30The [facility] HospitalComment on above:Performed By: #### HSTROPN, BMP, BNP #### [facility] [address] [place] [address] Dr. Santos ChangEGFR-AF GUINEAN>60Normal>=60The [facility] HospitalComment on above:Performed By: #### HSTROPN, BMP, BNP #### [facility] [address] [address] [address] Tom MannGFR-NON AF GUINEAN>60Normal>=60The [facility] HospitalComment on above:Performed By: #### HSTROPN, BMP, BNP #### [facility] [address] [address] [address] Tom DotsonGlucose [Mass/Vol]98 mg/eIIyizop79-447BcoJ.W. [facility] Comment on above:Performed By: #### HSTROPN, BMP, BNP #### [facility] [address] [place] [address] Dr. Tom DotsonPotassium [Moles/Vol]4.4 mmol/LNormal3.5-5.1[facility] Comment on above:Performed By: #### HSTROPN, BMP, BNP #### [facility] [address] [place] [address] Dr. Tom Kesslerdium [Moles/Vol]139 mmol/KDpanll400-428PtnJ.W. [facility] Comment on above:Performed By: #### HSTROPN, BMP, BNP #### [facility] [address] [address] [address] Tom DotsonUrea nitrogen [Mass/Vol]13.0 mg/dLNormal7.0-18.0The [facility] HospitalComment on above:Performed By: #### HSTROPN, BMP, BNP #### [facility] [address] [place] [address] Dr. Tom Reed nitrogen/Creatinine [Mass ratio]16.9 mg/mgNormalThe [facility] Community HospitalComment on above:Performed By: #### HSTROPN, BMP, BNP #### [facility] [address] [place] [address] Dr. Tom Stover, HIGH SENSITIVITYon 03-33-4701IXVXWF7.4 pg/mLNormal 4.0-76.1[facility] on above:Result Comment: CUT-OFF POINTS HAVE BEEN ESTABLISHED BASED ON THE FOURTH UNIVERSAL DEFINITIONS OF MYOCARDIAL INFARCTION. THE UPPER REFERENCE LIMIT (URL) OF TROPONIN, DEFINED THE 99TH PERCENTILE OF cTnI DISTRIBUTION IN A REFERENCE POPULATION, HAS BEEN CONFIRMED THE DECISION THRESHOLD FOR TN DIAGNOSIS.Performed By: #### INFLUAB #### [facility] [address] [place] [address] Dr. Tom DotsonXR CHEST 1 Von [id number] CHEST 1 VEXAMINATION: XR CHEST 1 V [...] Electronically authenticated by: YARIEL OLSON Date: 2022-09-25 10:55NormalThGenesis HospitalASPERGILLUS AB, QUANTITATIVE DIDon 91-65-5934Zxwkggneqyv flavus NegativeNormalNeg:<1:1[facility] HospitalComment on above:Performed By: #### ASPDID #### [facility] [address] [place] [address] Dr. Tom Garcias fumigatusNegativeNormalNeg:<1:1[facility] Comment on above:Performed By: #### ASPDID #### [facility] [address] [address] [address] Tom Garcias nigerNegativeNormalNeg:<1:1[facility] Comment on above:Performed By: #### ASPDID #### [facility] [address] [place] [address] Dr. Tom DotsonANTI NEUTROPHIL CYTOPLASMIC AB (ANCA) PRon 03-87-3225Vpvv-MPO Antibodies<0.2Pbagmb4.0-0.9[facility] HospitalComment on above:Result Comment: Performed at: BNPerformed By: #### CBC #### [facility] [address] [place] [address] Dr. Tom DotsonAnti-PR3 Antibodies<0.9Xfmptj0.0-0.9[facility]. [facility] HospitalComment on above:Result Comment: Performed at: BNPerformed By: #### CBC #### [facility] [address] [place] [address] Dr. Tom DotsonAtypical pANCA<1:20NormalNeg:<1:20ThGenesis HospitalComment on above:Result Comment: The atypical pANCA pattern has been observed in a significant percentage of patients with ulcerative colitis, primary sclerosing cholangitis and autoimmune hepatitis. Performed at: CBPerformed By: #### CBC #### [facility] [address] [place] [address] Dr. Tom DotsonCytoplasmic (C-ANCA)<1:20NormalNeg:<1:20ThGenesis Hospital Comment on above:Result Comment: Performed at: CBPerformed By: #### CBC #### [facility] [address] [place] [address] Dr. Tom DotsonPerinuclear (P-ANCA)<1:20NormalNeg:<1:20ThGenesis Hospital Comment on above:Result Comment: The presence of positive fluorescence exhibiting P-ANCA or C-ANCA patterns alone is not specific for the diagnosis of Nevin's Granulomatosis (WG) or microscopic polyangiitis. Decisions about treatment should not be based solely on ANCA IFA results. The International ANCA [employer] Consensus recommends follow up testing of positive sera with both MT-3 and MPO-ANCA enzyme immunoassays. As many as 5% serum samples are positive only by EIA. Ref. AM J Clin Pathol 1999;111:507-513. Performed at: CBPerformed By: #### CBC #### [facility] [address] [place] [address] Dr. Tom DotsonIMMUNOGLOBULIN E, TOTALon 10-44-1059Nzoqpiaaweaycj E, Total68 IU/mLNormal6-495The [facility] Community HospitalComment on above:Performed By: #### IGETOT #### [facility] [address] [place] [address] Dr. Tom DotsonANGIOTENSION-CONVERTING ENZYME (ELINOR)on 52-89-4494MTC36 U/LNormal 14-82The [facility] HospitalComment on above:Performed By: #### ANGIOC #### [facility] [address] [place] [address] Dr. Tom IbarraC AUTO DIFFon 09-25-7948TRME #0.1 103/ulNormal0.0-0.1The [facility] Community HospitalComment on above:Performed By: #### INFLUAB #### [facility] [address] [place] [address] Dr. Tom DotsonBasophils/100 WBC (Bld)1.0 %Normal0.2-2.0[facility] Comment on above:Performed By: #### INFLUAB #### [facility] [address] [place] [address] Dr. Tom MannO #0.0 103/ulNormal0.0-0.7The [facility] HospitalComment on above: Performed By: #### INFLUAB #### [facility] [address] [place] [address] Dr. Tom Mannosinophils/100 WBC (Bld)0.1 %Critically low0.9-7.0[facility] on above:Performed By: #### INFLUAB #### [facility] [address] [place] [address] Dr. Tom Mannrythrocyte distribution width (RBC) [Ratio]12.9 %Xpsauo15.0-15.0 The [facility] HospitalComment on above:Performed By: #### INFLUAB #### [facility] [address] [place] [address] Dr. Tom DotsonHematocrit (Bld) [Volume fraction]44.8 %Xkaayi30.0-54.0The [facility] Hospitalment on above:Performed By: #### INFLUAB #### [facility] [address] [place] [address] Dr. Tom DotsonHemoglobin (Bld) [Mass/Vol]15.0 g/vESmthqr55.0-18.0The [facility] HospitalComment on above:Performed By: #### INFLUAB #### [facility] [address] [address] [address] Tom Salgado #0.02 10e3/ulNormal0.00-0.03The [facility] HospitalComholland hospital on above:Performed By: #### INFLUAB #### [facility] [address] [place] [address] Dr. Tom Salgado %0.2 %Normal0.0-0.5The [facility] HospitalComholland hospital on above: Performed By: #### INFLUAB #### [facility] [address] [place] [address] Dr. Tom Lares #1.4 103/ulNormal1.2-3.8The [facility] HospitalComhol[facility] hospital on above:Performed By: #### INFLUAB #### [facility] [address] [place] [address] Dr. Tom Menjivarhocytes/100 WBC (Bld)17.6 %Critically low20.5-60.0The [facility] HospitalComhol[facility] hospital on above:Performed By: #### INFLUAB #### [facility] [address] [place] [address] Dr. Tom McgillUAL DIFF REQNONormalThe [facility] HospitalComment on above: Performed By: #### INFLUAB #### [facility] [address] [place] [address] Dr. Tom Anderson (RBC) [Entitic mass]30.9 flRpvvne55.9-34.0The [facility] HospitalComment on above:Performed By: #### INFLUAB #### [facility] [address] [place] [address] Dr. Tom Anderson (RBC) [Mass/Vol]33.5 g/tKHkpdei09.9-35.2The [facility] HospitalComhol[facility] hospital on above:Performed By: #### INFLUAB #### [facility] [address] [place] [address] Dr. Tom Anderson (RBC) [Entitic vol]92.2 fNCpeioq57.0-94.0The [facility] HospitalComment on above:Performed By: #### INFLUAB #### [facility] [address] [place] [address] Dr. Tom Baires #0.8 103/ulNormal0.3-0.8The [facility] HospitalComment on above:Performed By: #### INFLUAB #### [facility] [address] [place] [address] Dr. Tom Phanocytes/100 WBC (Bld)9.6 %Normal1.7-12.0[facility] Comment on above:Performed By: #### INFLUAB #### [facility] [address] [place] [address] Dr. Tom Kevin #5.9 103/ulNormal1.4-6.5The [facility] HospitalComment on above:Performed By: #### INFLUAB #### [facility] [address] [place] [address] Dr. Tom Riverautrophils/100 WBC (Bld)71.5 %Pjrmyq63.0-75.0The [facility] HospitalComment on above:Performed By: #### INFLUAB #### [facility] [address] [place] [address] Dr. Tom Monroy mean volume (Bld) [Entitic vol]9.9 fLNormal9.5-13.5The [facility] HospitalComment on above:Performed By: #### INFLUAB #### [facility] [address] [place] [address] Dr. Tom DotsonPLT325 103/utHrjann449-997Coh [facility] HospitalComment on above: Performed By: #### INFLUAB #### [facility] [address] [place] [address] Dr. Tom DotsonRBC4.86 106/ulNormal4.70-6.10The [facility] HospitalComment on above:Performed By: #### INFLUAB #### [facility] [address] [place] [address] Dr. Tom DotsonWBC8.2 103/ulNormal4.0-11.0The [facility] HospitalComment on above: Performed By: #### INFLUAB #### [facility] [address] [address] [address] Tom Meza LUNG CANCER SCREENINGon 21-87-7895LU LUNG CANCER SCREENING EXAMINATION: CT LUNG CANCER [...] Electronically authenticated by: YARIEL OLSON Date: 2022-04-10 22:[address] [place] [address] AUTO DIFFon 03-75-6909YNTM #0.1 103/ulNormal0.0-0.1The [facility] HospitalComment on above:Performed By: #### CBC #### [facility] [address] [place] [address] Dr. Tom DotsonBasophils/100 WBC (Bld)1.0 %Normal0.2-2.0[facility] Comment on above:Performed By: #### CBC #### [facility] [address] [address] [address] Tom Xiao #2.5 103/ulCritically high0.0-0.7The [facility] HospitalComment on above:Performed By: #### CBC #### [facility] [address] [place] [address] Dr. Tom Mannosinophils/100 WBC (Bld)29.1 %Critically high0.9-7.0The [facility] HospitalComment on above:Performed By: #### CBC #### [facility] [address] [place] [address] Dr. Tom Mannrythrocyte distribution width (RBC) [Ratio]12.8 %Kcqwke06.0-15.0 The [facility] HospitalComment on above:Performed By: #### CBC #### [facility] [address] [place] [address] Dr. Tom DotsonHematocrit (Bld) [Volume fraction]46.6 %Dphfhy80.0-54.0The [facility] HospitalComment on above:Performed By: #### CBC #### [facility] [address] [place] [address] Dr. Tom DotsonHemoglobin (Bld) [Mass/Vol]14.4 g/iVZxzkyr14.0-18.0The [facility] HospitalComment on above:Performed By: #### CBC #### [facility] [address] [place] [address] Dr. Tom Salgado #0.04 10e3/ulCritically high0.00-0.03[facility] Comment on above:Performed By: #### CBC #### [facility] [address] [place] [address] Dr. Tom Salgado %0.5 %Normal0.0-0.5The [facility] HospitalComment on above: Performed By: #### CBC #### [facility] [address] [place] [address] Dr. Tom MenjivarH #1.3 103/ulNormal1.2-3.8The [facility] HospitalComment on above:Performed By: #### CBC #### [facility] [address] [place] [address] Dr. Tom Lugomphocytes/100 WBC (Bld)15.1 %Critically low20.5-60.0The [facility] HospitalComment on above:Performed By: #### CBC #### [facility] [address] [place] [address] Dr. Tom McgillUAL DIFF REQNONormalThe [facility] HospitalComment on above: Performed By: #### CBC #### [facility] [address] [place] [address] Dr. Tom Anderson (RBC) [Entitic mass]29.5 dnEwlzbi99.9-34.0The [facility] HospitalComment on above:Performed By: #### CBC #### [facility] [address] [place] [address] Dr. Tom Anderson (RBC) [Mass/Vol]30.9 g/dLTsuduu34.9-35.2The [facility] HospitalComment on above:Performed By: #### CBC #### [facility] [address] [place] [address] Dr. Tom Anderson (RBC) [Entitic vol]95.5 fLCritically high80.0-94.0The [facility] HospitalComment on above:Performed By: #### CBC #### [facility] [address] [place] [address] Dr. Tom Baires #0.8 103/ulNormal0.3-0.8The [facility] HospitalComment on above:Performed By: #### CBC #### [facility] [address] [place] [address] Dr. Tom Phanocytes/100 WBC (Bld)9.5 %Normal1.7-12.0[facility] Comment on above:Performed By: #### CBC #### [facility] [address] [place] [address] Dr. Tom Kevin #3.9 103/ulNormal1.4-6.5The [facility] HospitalComment on above:Performed By: #### CBC #### [facility] [address] [address] [address] Tom Riverautrophils/100 WBC (Bld)44.8 %Xfgvoo07.0-75.0[facility] on above:Performed By: #### CBC #### [facility] [address] [place] [address] Dr. Tom Irvinglet mean volume (Bld) [Entitic vol]10.2 fLNormal9.5-13.5[facility] on above:Performed By: #### CBC #### [facility] [address] [place] [address] Dr. Tom DotsonPLT328 103/neWmoljt441-810Txt [facility] on above: Performed By: #### CBC #### [facility] [address] [place] [address] Dr. Tom DotsonRBC4.88 106/ulNormal4.70-6.10[facility] on above:Performed By: #### CBC #### [facility] [address] [place] [address] Dr. Tom DotsonWBC8.7 103/ulNormal4.0-11.0[facility] on above: Performed By: #### CBC #### [facility] [address] [place] [address] Dr. Tom RiverENTIAL MANUALon 04-33-9480MRHZLJAW LYMPH #0.09 103/ulNormal [facility] on above:Performed By: #### DIFF #### [facility] [address] [place] [address] Dr. Tom DotsonATYPICAL LYMPH %1 %NormalThe [facility] on above: Performed By: #### DIFF #### [facility] [address] [place] [address] Dr. Tom High #0.0 103/ulNormal0.0-0.3[facility] on above:Performed By: #### DIFF #### [facility] [address] [address] [address] Tom High %0 %Normal0-5The [facility] HospitalComment on above:Performed By: #### DIFF #### [facility] [address] [place] [address] Dr. Tom Pimentel #0.00 103/ulNormal0.00-0.10The [facility] HospitalComment on above:Performed By: #### DIFF #### [facility] [address] [place] [address] Dr. Tom Pimentel %0.0 %Critically low0.2-2.0The [facility] HospitalComment on above:Performed By: #### DIFF #### [facility] [address] [place] [address] Dr. Tom Huang #NormalThe [facility] HospitalComment on above:Performed By: #### DIFF #### [facility] [address] [place] [address] Dr. Tom Huang %NormalThe [facility] HospitalComment on above:Performed By: #### DIFF #### [facility] [address] [place] [address] Dr. Tom DotsonCORRECTED WBCNormal4.0-11.0The [facility] Hospitalment on above: Performed By: #### DIFF #### [facility] [address] [place] [address] Dr. Tom Delgado #1.22 103/ulCritically high0.00-0.70[facility] Comment on above:Performed By: #### DIFF #### [facility] [address] [place] [address] Dr. Tom Delgado%14.0 %Critically high0.9-7.0The [facility] HospitalComment on above:Performed By: #### DIFF #### [facility] [address] [place] [address] Dr. Tom Davidson #1.91 103/ulNormal1.20-3.80The [facility] HospitalComment on above:Performed By: #### DIFF #### [facility] [address] [place] [address] Dr. Tom Davidson%22.0 %Kwwywh37.5-60.0The [facility] HospitalComment on above:Performed By: #### DIFF #### [facility] [address] [place] [address] Dr. Tom FullerOCYTE #NormalThe [facility] HospitalComment on above: Performed By: #### DIFF #### [facility] [address] [place] [address] Dr. Tom FullerOCYTE %NormalJ.W. Ruby Memorial HospitalComment on above: Performed By: #### DIFF #### [facility] [address] [place] [address] Dr. Tom High#0.52 103/ulNormal0.30-0.80The [facility] HospitalComment on above:Performed By: #### DIFF #### [facility] [address] [place] [address] Dr. Tom High%6.0 %Normal1.7-12.0The [facility] HospitalComment on above: Performed By: #### DIFF #### [facility] [address] [place] [address] Dr. Tom Hdez #NormalJ.W. Ruby Memorial HospitalComholland hospital on above:Performed By: #### DIFF #### [facility] [address] [place] [address] Dr. Tom Hdez %NormalThe [facility] HospitalComment on above:Performed By: #### DIFF #### [facility] [address] [place] [address] Dr. Tom Dos SantosNormalThe [facility] HospitalComment on above:Performed By: #### DIFF #### [facility] [address] [place] [address] Dr. Tom Mckay #4.96 103/ulNormal1.40-6.50The [facility] HospitalComment on above:Performed By: #### DIFF #### [facility] [address] [place] [address] Dr. Tom Mckay %57.0 %Hapnpf78.0-75.0The [facility] HospitalComment on above: Performed By: #### DIFF #### [facility] [address] [address] [address] Tom DotsonWBC8.7 103/ulNormal4.0-11.0[facility] HospitalComment on above: Performed By: #### DIFF #### [facility] [address] [place] [address] Dr. Tom DotsonLIPID PROFILEon [id number]-HDL RATIO NORMSEE [facility] HospitalComment on above:Result Comment: 3.3 - 4.4 LOW RISK 4.4 - 7.1 AVERAGE RISK 7.1 - 11.0 MODERATE RISK >11.0 HIGH RISKPerformed By: #### INFLUAB #### [facility] [address] [place] [address] Dr. Tom Changesterol [Mass/Vol]135 mg/dLNormal<=200[facility] Comment on above:Performed By: #### INFLUAB #### [facility] [address] [place] [address] Dr. Tom Changesterol in HDL [Mass/Vol]51 mg/rUOpzbnl64-07NxwJ.W. Ruby Memorial HospitalComholland hospital on above:Performed By: #### INFLUAB #### [facility] [address] [place] [address] Dr. Tom Changesterol in LDL [Mass/Vol]74.4 mg/dLGreene Memorial HospitalComholland hospital on above:Performed By: #### INFLUAB #### [facility] [address] [place] [address] Dr. Tom Gomez.total/Cholesterol in HDL [Mass ratio]2.6 {ratio} NormalThe [facility] HospitalComment on above:Performed By: #### INFLUAB #### [facility] [address] [place] [address] Dr. Tom De Luna NORMAL> or = 60 mg/dl - LOW CARDIOVASCULAR RISK <40 mg/dl - HIGH CARDIOVASCULAR RISKGreene Memorial HospitalComment on above:Performed By: #### INFLUAB #### [facility] [address] [place] [address] Dr. Tom DotsonLDL CALC NORMALSEE BELOWGreene Memorial HospitalComment on above:Result Comment: <100 mg/dl OPTIMAL 100 - 129 mg/dl NEAR OR ABOVE OPTIMAL 130 - 159 mg/dl BORDERLINE HIGH 160 - 189 mg/dl HIGH >190 mg/dl VERY HIGH Performed By: #### INFLUAB #### [facility] [address] [place] [address] Dr. Tom DotsonTriglyceride [Mass/Vol]48 mg/dLNormal<=150[facility] Comment on above:Performed By: #### INFLUAB #### [facility] [address] [place] [address] Dr. Tom DotsonVLDL CALC9.6 mg/dLNoOhio State East HospitalComment on above: Performed By: #### INFLUAB #### [facility] [address] [place] [address] Dr. Tom DotsonPROF 14(COMP METB)on 15-79-4036Dxtjijx [Mass/Vol]3.8 g/dLNormal 3.4-5.0The [facility] HospitalComment on above:Performed By: #### INFLUAB #### [facility] [address] [place] [address] Dr. Tom DotsonAlbumin/Globulin [Mass ratio]1.1 {ratio}NormalThe [facility] HospitalComment on above:Performed By: #### INFLUAB #### [facility] [address] [place] [address] Dr. Tom White [Catalytic activity/Vol]62 U/ANtorch65-120Jkp [facility] HospitalComholland hospital on above:Performed By: #### INFLUAB #### [facility] [address] [place] [address] Dr. Tom Faulkner [Catalytic activity/Vol]25 U/OHcjunb40-19Sjk [facility] HospitalComment on above:Performed By: #### INFLUAB #### [facility] [address] [address] [address] Tom Mohanon gap [Moles/Vol]9.8 mmol/LNormalThe [facility] HospitalComment on above:Performed By: #### INFLUAB #### [facility] [address] [address] [address] Tom DotsonAST [Catalytic activity/Vol]15 U/HHngewh17-00Xkj [facility] HospitalComment on above:Performed By: #### INFLUAB #### [facility] [address] [place] [address] Dr. Tom DotsonBilirubin [Mass/Vol]0.9 mg/dLNormal0.2-1.0The [facility] Comment on above:Performed By: #### INFLUAB #### [facility] [address] [place] [address] Dr. Tom DotsonCalcium [Mass/Vol]8.8 mg/dLNormal8.5-10.1[facility] Comment on above:Performed By: #### INFLUAB #### [facility] [address] [place] [address] Dr. Tom DotsonChloride [Moles/Vol]102 mmol/ODzqyml87-566Lge [facility] Comment on above:Performed By: #### INFLUAB #### [facility] [address] [place] [address] Dr. Tom DotsonCO2 [Moles/Vol]30.5 mmol/KZeeine68.0-32.0The [facility] Comment on above:Performed By: #### INFLUAB #### [facility] [address] [place] [address] Dr. Tom DotsonCreatinine [Mass/Vol]0.95 mg/dLNormal0.70-1.30The [facility] HospitalComment on above:Performed By: #### INFLUAB #### [facility] [address] [place] [address] Dr. Santos ChangEGFR-AF GUINEAN>60Normal>=60The [facility] HospitalComment on above:Performed By: #### INFLUAB #### [facility] [address] [address] [address] Tom MannGFR-NON AF GUINEAN>60Normal>=60The [facility] HospitalComment on above:Performed By: #### INFLUAB #### [facility] [address] [address] [address] Tom DotsonGlobulin (S) [Mass/Vol]3.4 g/dLNormGood Samaritan HospitalComment on above:Performed By: #### INFLUAB #### [facility] [address] [address] [address] Tom DotsonGlucose [Mass/Vol]85 mg/xEXxgldz52-471Azj [facility] Comment on above:Performed By: #### INFLUAB #### [facility] [address] [address] [address] Tom DotsonPotassium [Moles/Vol]4.3 mmol/LNormal3.5-5.1The [facility] Comment on above:Performed By: #### INFLUAB #### [facility] [address] [address] [address] Tom DotsonProtein [Mass/Vol]7.2 g/dLNormal6.4-8.2[facility] Comment on above:Performed By: #### INFLUAB #### [facility] [address] [address] [address] Tom DostonSodium [Moles/Vol]138 mmol/CIksnva259-761Xko [facility] Comment on above:Performed By: #### INFLUAB #### [facility] [address] [address] [address] Tom DotsonUrea nitrogen [Mass/Vol]14.0 mg/dLNormal7.0-18.0The [facility] HospitalComment on above:Performed By: #### INFLUAB #### [facility] [address] [address] [address] Tom DotsonUrea nitrogen/Creatinine [Mass ratio]14.7 mg/mgNormalThGenesis HospitalComment on above:Performed By: #### INFLUAB #### [facility] [address] [address] [address] Tom Arreaga 43-35-6889EPU0.010 uIU/mLNormal0.358-3.740J.W. Ruby Memorial HospitalComment on above:Performed By: #### INFLUAB #### [facility] [address] [address] [address] Tom DotsonHepatic Panelon 48-82-8675Tnhziph [Mass/Vol]3.2 g/dLNormal3.2-5.5 [facility] HospitalComment on above:Performed By: #### HEPATIC, LIPID, TSH3 wRFLX, [id number] #### [facility] [address] [place] [address] USAAlbumin/Globulin [Mass ratio]1.1 {ratio}[facility] CenterComment on above:Performed By: #### HEPATIC, LIPID, TSH3 wRFLX, [id number] #### [facility] [address] [place] [address] USAALP [Catalytic activity/Vol]38 U/RQjzlqf56-84OsxtjombvMarymount HospitalComment on above:Performed By: #### HEPATIC, LIPID, TSH3 wRFLX, [id number] #### [facility] [address] [place] [address] USAALT [Catalytic activity/Vol]14 U/JBycprw05-33NnnsrahzvMarymount HospitalComment on above:Performed By: #### HEPATIC, LIPID, TSH3 wRFLX, [id number] #### [facility] [address] [place], [place] [id number] USAAST [Catalytic activity/Vol]13 U/ZPhmbjq11-28OqnqrlrvzMarymount HospitalComment on above:Performed By: #### HEPATIC, LIPID, TSH3 wRFLX, [id number] #### [facility] [address] [place] [address] USABilirubin [Mass/Vol]0.9 mg/dLNormal0.3-1.2FSumma Health Wadsworth - Rittman Medical CenterComment on above:Performed By: #### HEPATIC, LIPID, TSH3 wRFLX, [id number] #### [facility] [address] [place] [address] USABilirubin,Indirect0.8 mg/dLNoMetroHealth Parma Medical CenterComment on above:Performed By: #### HEPATIC, LIPID, TSH3 wRFLX, [id number] #### [facility] [address] [place] [address] USABilirubin.direct [Mass/Vol]0.1 mg/dLNormal0.0-0.4FSumma Health Wadsworth - Rittman Medical CenterComment on above:Performed By: #### HEPATIC, LIPID, TSH3 wRFLX, [id number] #### [facility] [address] [place] [address] USAGlobulin (S) [Mass/Vol]2.9 g/dLNoMetroHealth Parma Medical CenterComment on above:Performed By: #### HEPATIC, LIPID, TSH3 wRFLX, [id number] #### [facility] [address] [place] [address] USAProtein [Mass/Vol]6.1 g/dLNoal6.1-7.9[facility] HospitalComment on above:Performed By: #### HEPATIC, LIPID, TSH3 wRFLX, [id number] #### [facility] [address] [place] [address] USALipid Panelon 78-52-0354Vfmafdprvaa [Mass/Vol]158 mg/dL Ajkqxb633-541VkmjftpkyMarymount HospitalComment on above:Result Comment: Chol less than 200 mg/dl low risk Chol 201-239 mg/dl borderline risk Chol 240 mg/dl and greater high riskPerformed By: #### HEPATIC, LIPID, TSH3 wRFLX, [id number] #### [facility] [address] [place] [address] USACholesterol in HDL [Mass/Vol]61 mg/nUOucbra69-98QqucxztvlMarymount HospitalComment on above:Result Comment: HDL CHOL ATP-III CLASSIFICATION Cardiovascular Risk HDL > or equal to 60 mg/dL LOW HDL < 40 mg/dL HIGHPerformed By: #### HEPATIC, LIPID, TSH3 wRFLX, [id number] #### [facility] [address] [place] [address] USACholesterol.total/Cholesterol in HDL [Mass ratio]2.6 {ratio}Normal<5.0[facility] HospitalComment on above:Performed By: #### HEPATIC, LIPID, TSH3 wRFLX, [id number] #### [facility] [address] [place] [address] USALDL Cholesterol,Rurnymscwt05 mg/dLNormal0-100[facility] HospitalComment on above:Result Comment: LDL ATP III CLASSIFICATION LDL less than 100 mg/dL Optimal LDL 100-129 mg/dL Near or above optimal LDL 130-159 mg/dL Borderline high LDL 160-189 mg/dL High LDL greater than 189 mg/dL Very highPerformed By: #### HEPATIC, LIPID, TSH3 wRFLX, [id number] #### [facility] [address] [id number] USATriglyceride w/Amuxct37 mg/mGVjsyur31-601NgnagteurMarymount HospitalComment on above:Result Comment: TRIG ATP III CLASSIFICATION TRIG less than 150 mg/dL Normal TRIG 150-199 mg/dL Borderline high TRIG 200-500 mg/dL High TRIG greater than 500 mg/dL Very high Standard traceable to the Center for Disease Conrtrol and Prevention (CDC) test method.Performed By: #### HEPATIC, LIPID, TSH3 wRFLX, [id number] #### [facility] [address] [id number] USAVLDL PMIWLTQLZGA22 mg/dLNormalMarymount HospitalComment on above:Performed By: #### HEPATIC, LIPID, TSH3 wRFLX, [id number] #### [facility] [address] [place] [address] USAThyroid Stim Hormone w/Rflxon 10-13-9767Rbyemnz Stim Hormone w/Rflx1.92 u[iU]/mLNormal0.45-5.33[facility] Comment on above:Performed By: #### HEPATIC, LIPID, TSH3 wRFLX, [id number] #### [facility] [address] [id number] USAVitamin D 25 Hydroxy Totalon 98-11-8332Zcotmsy D 25 Hydroxy Total11.9 ng/kOOcz70-973EauzhhtgtMarymount HospitalComment on above:Result Comment: VITAMIN D STATUS 25(OH)VITAMIN D RANGE (ng/mL) Deficient <20 Insufficient 20 to <30 Sufficient 30 to 100 Reference: Darrion MF,Zane NC, Hanna AVELAR, et al. Evaluation,treatment, and prevention of vitamin D deficiency; an Endocrine Society clinical practice guideline. JCEM. 2010; 96(7):1911-30. PERFORMED BY: [facility] [address] [id number] PATHOLOGIST DIRECTOR FACILITIES MAINTENANCE MIGUELINA FLOOD M.D.Performed By: #### HEPATIC, LIPID, TSH3 wRFLX, [id number] #### [address] [address] [facility] Vital Signs Date TimeVital SignValuePerforming EufvmojdpZwnzsjlq91-97-1300 15:38-0400Body mass index (BMI) [Ratio]27.86 kg/m2Azul Leerani [employer]LASTICS TOOLING ENGINEER Work Phone: [facility] HospitalEsrsstwkbe49-79-0128 15:38-0400Body temperature 97.81 [degF]Azul Leerani PLASTICS TOOLING ENGINEER Work Phone: [facility] HospitalGdgghxrvzr37-89-3010 15:38-0400Body .8 kg Azul Leidymaxrani PLASTICS TOOLING ENGINEER Work Phone: [facility] HospitalImonlubxfs94-90-7480 15:38-0400Diastolic blood yfbkhtxr07 mm[Hg]Azul Leerani PLASTICS TOOLING ENGINEER Work Phone: [address] [address]Pkaswgdotv09-50-6731 15:38-0400Heart rate84 /min Azul Leidymaxrani PLASTICS TOOLING ENGINEER Work Phone: [address] [address]Pottelzojb19-71-6322 15:38-0400Respiratory rate24 /minAzul Damien PLASTICS TOOLING ENGINEER Work Phone: [facility] HospitalWbatdeaouq82-31-0333 15:38-8747MgA5% (BldA) [Mass fraction]94 %Azul Quezada PLASTICS TOOLING ENGINEER Work Phone: [facility] HospitalUnilolgmlg95-79-5081 15:38-0400Systolic blood vxsvqwba062 mm[Hg]Azul Bragaz PLASTICS TOOLING ENGINEER Work Phone: [facility] HospitalMvooedugzc76-87-6827 13:54-0400Body mass index (BMI) [Ratio]27.42 kg/m2Ivorysa Maria Luzz PLASTICS TOOLING ENGINEER Work Phone: [facility] HospitalVumslzvejv33-34-2729 13:54-0400Body dulpowengwx08 [degF]Azul Bragaz PLASTICS TOOLING ENGINEER Work Phone: [facility] HospitalJbxurvorps48-77-9211 13:54-0400Body ybbrgl65.26 kgAzul Bragaz PLASTICS TOOLING ENGINEER Work Phone: [facility] HospitalKcpryupart24-09-3224 13:54-0400Diastolic blood lfvfqino85 mm[Hg]Azul Bragaz PLASTICS TOOLING ENGINEER Work Phone: [facility] HospitalQqxozkhjoi64-05-2080 13:54-0400Heart rate88 /min Azul Maria Luzz PLASTICS TOOLING ENGINEER Work Phone: [facility] HospitalGdcblojcnd68-26-4032 13:54-0400Respiratory rate24 /minLisa Quezada PLASTICS TOOLING ENGINEER Work Phone: [facility] HospitalGadtyurbua56-59-1540 13:54-4012MzT2% (BldA) [Mass fraction]92 %Azul Bragaz PLASTICS TOOLING ENGINEER Work Phone: [facility] HospitalUgeqahhnay00-45-5103 13:54-0400Systolic blood pnidjdiz389 mm[Hg]Azul Bragaz PLASTICS TOOLING ENGINEER Work Phone: [facility] HospitalXykpakidmc12-75-0765 14:25-0500Body mass index (BMI) [Ratio]25.57 kg/m2Azul Leeholz PLASTICS TOOLING ENGINEER Work Phone: [facility] HospitalUponehhqzs34-78-9009 14:25-0500Body temperature 99.39 [degF]Azul Maria Luzz PLASTICS TOOLING ENGINEER Work Phone: [phone]02-25-2025 14:25-0500Body sjscyl97.91 kgLisa Leidyhholz PLASTICS TOOLING ENGINEER Work Phone: [phone]-[facility] HospitalNgatoluxhl95-76-1895 14:25-0500Diastolic blood lmrviqqt88 mm[Hg]Azul Aichholz PLASTICS TOOLING ENGINEER Work Phone: [facility] HospitalOdpfwywyuq33-91-0375 14:25-0500Heart rate90 /min Azul Aichholz PLASTICS TOOLING ENGINEER Work Phone: [phone] [place], [place] [address]Fjtvsslksm10-66-9057 14:25-0500Respiratory rate26 /minLisa Aichholz PLASTICS TOOLING ENGINEER Work Phone: [phone] [place], [place] [address]Jvoswhxycc19-38-3822 14:25-7226YiD1% (BldA) [Mass fraction]92 %Azul Aichholz PLASTICS TOOLING ENGINEER Work Phone: 1(477)042-[address] [place], [place] [address]Zsadxrycth24-62-3115 14:25-0500Systolic blood mm[Hg]Azul Aichholz PLASTICS TOOLING ENGINEER Work Phone: [phone])429-[address] [place], [place] [address]Iownrwokgg63-55-2648 13:20-0500Body uyaprp165.4 cmLisa Aichholz PLASTICS TOOLING ENGINEER Work Phone: [facility] HospitalUlrftshobl00-61-4859 13:20-0500Body mass index (BMI) [Ratio]25.17 kg/m2Lisa Aichholz PLASTICS TOOLING ENGINEER Work Phone: [facility] HospitalJreyhramhw46-90-3825 13:20-0500Body temperature 98.29 [degF]Azul Aichholz PLASTICS TOOLING ENGINEER Work Phone: [phone])758-[address] [place], [place] [address]Avkxujscyw34-42-3234 13:20-0500Body qgavgo72.55 kgLisa Aichholz PLASTICS TOOLING ENGINEER Work Phone: [phone])104-[address] [place], [place] [address]Pwzbscqbeq09-29-9950 13:20-0500Diastolic blood qomckudh04 mm[Hg]Azul Aichholz PLASTICS TOOLING ENGINEER Work Phone: [address] [address]Ttkjjquwzg58-35-8320 13:20-0500Heart rate77 /min Azul Aichholz PLASTICS TOOLING ENGINEER Work Phone: [facility] HospitalSnnybojime03-14-5838 13:20-0500Respiratory rate24 /minAzul Leerani PLASTICS TOOLING ENGINEER Work Phone: [facility] HospitalImqjgwubiz97-18-1023 13:20-1858NgU4% (BldA) [Mass fraction]97 %Azul Leerani PLASTICS TOOLING ENGINEER Work Phone: [facility] HospitalLqfhpthekr25-27-6856 13:20-0500Systolic blood fhvfnpus071 mm[Hg]Azul Bragalisette PLASTICS TOOLING ENGINEER Work Phone: [facility] HospitalXybmetvjka67-48-8859 13:20-0400Body nhmdok433.4 cmIbeth Torres DO Work Phone: [phone])[facility] HospitalLecngfduvp64-44-0052 13:20-0400Body mass index (BMI) [Ratio]23.67 kg/m2Ibeth Torres DO Work Phone: 1(260)[facility] HospitalRsdzgvsoez00-43-3850 13:20-0400Body .38 kgIbeth Torres DO Work Phone: 1(378)[facility] HospitalXnhelsolct82-17-5597 13:20-0400Diastolic blood mbucsixu61 mm[Hg]Ibeth Torres DO Work Phone: 1(722)[facility]301[facility] HospitalTzowjiozyv89-23-6836 13:20-0400Heart rate70 /min Ibeth Torres DO Work Phone: 1(414)[facility] HospitalMjmvmcwczq53-60-9358 13:20-0400Respiratory rate12 /minIbeth Torres DO Work Phone: 1(398)[facility] MississippiSaint [facility] HospitalZjmkxjagmp35-32-7636 13:20-3144HgP4% (BldA) [Mass fraction]98 %Ibeth Torres DO Work Phone: [phone])[facility]301[facility] HospitalRiifgecgko33-12-4130 13:20-0400Systolic blood ysvzlqmf612 mm[Hg]Ibeth Torres DO Work Phone: [phone])[facility] HospitalUivaevdubk73-35-0428 14:17-0400Body tnpkpa723.4 Elder Aichholz PLASTICS TOOLING ENGINEER Work Phone: [facility] HospitalQcbhpsyvdc07-55-4415 14:17-0400Body mass index (BMI) [Ratio]23.62 kg/m2Lisa Rosaholz PLASTICS TOOLING ENGINEER Work Phone: [facility] HospitalDpcdfzlmnf80-22-4398 14:17-0400Body temperature 98.01 [degF]Azul Maria Luzz PLASTICS TOOLING ENGINEER Work Phone: [facility] HospitalIypknjslxw89-79-9888 14:17-0400Body palmog54.19 kgLisa Rosaholz PLASTICS TOOLING ENGINEER Work Phone: [address] [address]Usufgctkhn27-92-4287 14:17-0400Diastolic blood qekhawyu85 mm[Hg]Azul Rosaholz PLASTICS TOOLING ENGINEER Work Phone: [address] [address]Iulhplyarn96-82-2214 14:17-0400Heart rate79 /min Azul Maria Luzz PLASTICS TOOLING ENGINEER Work Phone: [address] [address]Jifrnkmdci01-28-3370 14:17-0400Respiratory rate22 /minLisa Maria Luzz PLASTICS TOOLING ENGINEER Work Phone: [address] [address]Zaimgaxygd65-37-5901 14:17-9246PpJ8% (BldA) [Mass fraction]94 %Azul Maria Luzz PLASTICS TOOLING ENGINEER Work Phone: [address] [address]Nvmcynpxuo39-89-3496 14:17-0400Systolic blood tyaxhrdd45 mm[Hg]Azul Rosanormaz PLASTICS TOOLING ENGINEER Work Phone: [facility] HospitalXdpfgfebbi56-11-4069 10:00-0500Body hjujmp793.4 cmLisa Rosaholz PLASTICS TOOLING ENGINEER Work Phone: [facility] HospitalDkjsngkqfp54-73-3228 10:00-0500Body mass index (BMI) [Ratio]26.84 kg/m2Lisa Rosaholz PLASTICS TOOLING ENGINEER Work Phone: [facility] HospitalQnlnkqlgyo60-59-4519 10:00-0500Body temperature 97.11 [degF]Azul Rosaholz PLASTICS TOOLING ENGINEER Work Phone: [facility] HospitalEjxzaooxpg82-08-6654 10:00-0500Body .26 kgAzul Quezada PLASTICS TOOLING ENGINEER Work Phone: [facility] Fvhtbuwody67-58-7050 10:00-0500Diastolic blood bpgehxmm15 mm[Hg]Azul Quezada PLASTICS TOOLING ENGINEER Work Phone: [facility] Pylzslqvbk11-37-8361 10:00-0500Heart rate83 /min Azul Quezada PLASTICS TOOLING ENGINEER Work Phone: [facility] Goqzhzpjed67-85-7899 10:00-0500Respiratory rate16 /minAzul Quezada PLASTICS TOOLING ENGINEER Work Phone: [facility] Lknnipvcax02-38-2040 10:00-0747WxF5% (BldA) [Mass fraction]94 %Azul Quezada PLASTICS TOOLING ENGINEER Work Phone: [facility] Plqktolrkd44-87-7136 10:00-0500Systolic blood mm[Hg]Azul Quezada PLASTICS TOOLING ENGINEER Work Phone: [facility] Encounters Encounter DateEncounter TypeCare ProviderFacilityStart: 07-13-2025 End: 13-47-5206xzrzavcvbnSWFAOHFQE A JUMAAProMedMount St. [facility] Hospital HospitalStart: 07-63-2236qmxnysnzddNDBH [facility] PPGStart: 07-07-2025 End: 14-55-3904nbhvsfcpwbUYIWZXW PROVIDERFacility:METROHealthStart: 07-07-2025 End: 04-68-2965Lnwzcuxcif and management of inpatientMARIAM ARMIN DIABProMedica Schuyler Falls HospitalStart: 05-17-2025 End: 46-15-7302Danhgwlckwlo care manage srvc 7 day dischargeAzul Bragalisette PLASTICS TOOLING ENGINEER Work Phone: [facility] CWM FMComment on above:Centrilobular emphysema (HCC) (Primary Dx); Tourette's ; Bilateral carotid artery stenosis; Rising PSA level; Mixed hyperlipidemia ; Depression with anxiety; Former smoker; Elevated glucose; Pain of right hipStart: 05-17-2025 End: 91-70-8800aqndjztmtiCGNR AICHHOLZNot AvailableStart: 05-17-2025 End: 76-20-7856Srzauh flowsheetLisa Aichholz PLASTICS TOOLING ENGINEER Work Phone: [facility] CWM FMStart: 05-17-2025 End: 83-54-6138Fgnanu flowsheetLisa Aichholz PLASTICS TOOLING ENGINEER Work Phone: [facility] CWM FMStart: 02-15-2025 End: 94-75-3347Vcxzos flowsheetLisa Aichholz PLASTICS TOOLING ENGINEER Work Phone: [facility] C[facility] FMStart: 02-15-2025 End: 34-62-8669Sahzsa flowsheetLisa Aichholz PLASTICS TOOLING ENGINEER Work Phone: [facility] CWM FMStart: 02-15-2025 End: 57-82-8177Fgfkzz outpatient visit 25 minutesLisa Aichholz PLASTICS TOOLING ENGINEER Work Phone: [facility] CWM FMComment on above:Depression with anxiety (Primary Dx); Cerebrovascular accident (CVA), unspecified mechanism (CMS/HCC); Overweight (BMI 25.0-29.9); Centrilobular emphysema (CMS/HCC); Insomnia, unspecifiedStart: 02-15-2025 End: 33-41-0830jvrldrikmaQNEI AICHHOLZNot AvailableStart: 12-27-2024 End: 33-48-5340KwxhkzFzoe Aichholz PLASTICS TOOLING ENGINEER Work Phone: [facility] CWM FMComment on above:Mixed hyperlipidemia (CMS/HCC)Start: 11-16-2024 End: 93-29-0346Qwjveo flowsheetLisa Aichholz PLASTICS TOOLING ENGINEER Work Phone: [facility] C[facility] FMStart: 11-16-2024 End: 88-33-8764Eehaml flowsheetLisa Aichholz PLASTICS TOOLING ENGINEER Work Phone: [facility] C[facility] FMStart: 11-16-2024 End: 55-43-0188Laigdhnbb Result EncounterLisa Aichholz PLASTICS TOOLING ENGINEER Work Phone: [facility] External Department UnsolicitedStart: 11-16-2024 End: 15-37-4888Ahyaxgt encounter procedureLisa Leerani PLASTICS TOOLING ENGINEER Work Phone: [facility] CWM FMComment on above:Encounter for subsequent annual wellness visit (AWV) in Medicare patient (Primary Dx); Centrilobular emphysema (CMS/HCC); Cerebrovascular accident (CVA), unspecified mechanism (CMS/HCC); Bilateral carotid artery stenosis; Overweight (BMI 25.0-29.9); Depression with anxiety; COPD with acute exacerbation ([facility]/HCC)Start: 11-16-2024 End: 19-31-2658nuiuqoxdviHUMP AICHHOLZNot AvailableStart: 10-22-2024 End: 80-02-0895Uqnewpbqf Result EncounterGeneric External Data ProviderNOMS External Department UnsolicitedStart: 10-22-2024 End: 36-19-1225Vljdnfqjq Result EncounterGeneric External Data ProviderNOMS External Department UnsolicitedStart: 09-08-2024 End: 73-53-9044Fyxlapbtj Result EncounterGeneric External Data ProviderNOMS External Department UnsolicitedStart: 09-08-2024 End: 34-62-7805Zyzhmyoyw Result EncounterGeneric External Data ProviderNOMS External Department UnsolicitedStart: 09-06-2024 End: 44-55-6490Rjokzaqfh Result EncounterLisa Damien PLASTICS TOOLING ENGINEER Work Phone: [facility] External Department UnsolicitedStart: 09-06-2024 End: 92-03-3593Tdhfhlmgv Result EncounterLisa Damien PLASTICS TOOLING ENGINEER Work Phone: [facility] External Department UnsolicitedStart: 08-16-2024 End: 27-95-0017Qybigi flowsheetLisa Forbesmaxrani PLASTICS TOOLING ENGINEER Work Phone: [facility] CWM FMStart: 08-16-2024 End: 85-73-6704Fiqajh flowsheetLisa Leeholz PLASTICS TOOLING ENGINEER Work Phone: [facility] CWM FMStart: 08-16-2024 End: 37-22-0997Ubpzjj outpatient visit 25 minutesLisa Leerani PLASTICS TOOLING ENGINEER Work Phone: [facility] CWM FMComment on above:Depression with anxiety (Primary Dx); Primary insomnia; Cerebrovascular accident (CVA), unspecified mechanism (CMS/HCC); Centrilobular emphysema (CMS/HCC); Bilateral carotid artery stenosis; Sessile colonic polyp; Smoker; Needs flu shot; Former smoker; Insomnia, unspecifiedStart: 08-16-2024 End: 49-07-5335mmlicweqozVWTT AICHHOLZNot AvailableStart: 07-06-2024 End: 08-39-9827Iltbhurgj Result EncounterGeneric External Data ProviderNOMS External Department UnsolicitedStart: 07-06-2024 End: 28-83-7914Cotwvtnbe Result EncounterGeneric External Data ProviderNOMS External Department UnsolicitedStart: 06-02-2024 End: 35-65-9302CuouqjObsq Aichnormaz PLASTICS TOOLING ENGINEER Work Phone: noms CWM FMComment on above:Depression with anxiety; Insomnia, unspecified; Mixed hyperlipidemia (CMS/HCC)Start: 06-01-2024 End: 40-92-6524Vbxnbi OnlyLisa Leenormaz PLASTICS TOOLING ENGINEER Work Phone: noms CWM FMComment on above:Rising PSA level (Primary Dx)Start: 05-31-2024 End: 76-25-5966Hzilbhdtw Result EncounterLisa Leidyhholz PLASTICS TOOLING ENGINEER Work Phone: noms External Department UnsolicitedStart: 05-31-2024 End: 83-67-3518Lcxhifpck Result EncounterLisa Rosaholz PLASTICS TOOLING ENGINEER Work Phone: noms External Department UnsolicitedStart: 05-31-2024 End: 69-61-0157Raosoko encounter Swetha Torres DO Work Phone: noms BWM GENSComment on above:Screening for malignant neoplasm of colon (Primary Dx)Start: 05-31-2024 End: 10-22-3077svqiixigzhBQHK DUCKETTNot AvailableStart: 05-19-2024 End: 19-29-1067Umuaql flowsheetAzul Quezada PLASTICS TOOLING ENGINEER Work Phone: noms CWM FMStart: 05-19-2024 End: 00-14-4769Vjmnfy flowsheetAzul Quezada PLASTICS TOOLING ENGINEER Work Phone: noms CWM FMStart: 05-19-2024 End: 61-44-6562Jelpze outpatient visit 25 minutesAzul Quezada PLASTICS TOOLING ENGINEER Work Phone: noms CWM FMComment on above:Depression with anxiety (Primary Dx); Screening for prostate cancer; Smoker; Mixed hyperlipidemia (CMS/HCC); Sessile colonic polyp; Centrilobular emphysema (CMS/HCC); Bilateral carotid artery stenosis; Right hand painStart: 01-14-2024 End: 50-97-4208Rraljrkco encounterEmily Moore RNProMedica Physicians Neurology Start: 25-66-1436Ulkwqhm encounter procedureLisa Quezada PLASTICS TOOLING ENGINEER Work Phone: noms HealthcareStart: 10-30-2023 End: 89-53-1425Bxdivn outpatient visit 15 minutesAzul Quezada PLASTICS TOOLING ENGINEER Work Phone: noms CWM FMComment on above:Influenza (Primary Dx); Marijuana abuse; Smoker; BMI 26.0-26.9,adult; Centrilobular emphysema (CMS/HCC)Start: 18-96-4942Tuxiryzxg Result Encounter Generic External Data ProviderNOMS External Department UnsolicitedStart: 29-69-5943Ozxcjfhzm Result EncounterGeneric External Data ProviderNOMS External Department UnsolicitedStart: 09-25-2022 End: 99-83-9795sfvwffphwfIBY 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Facility:L2Zqyuf: 04-16-2022 End: 69-02-1584dbgqpogbyyJOLSDP SAMSAFacility:G5Nkboo: 04-10-2022 End: 17-91-2170bxjtalopfsQUNTTP SAMSAFacility:E7Nqnys: 03-06-2022 End: 79-24-9218sdnrgdxxdqIVU AZUL DAMIENFacility:H1 Procedures DateProcedureProcedure DetailPerforming ClinicianStart: 25-72-8924ED CHEST 2V Azul Quezada PLASTICS TOOLING ENGINEER Work Phone: Start: 27-88-3826EJG HEMOGLOBINGeneric External Data ProviderStart: 25-46-0515KQ LUNG SCREENING LOW DOSEGeneric External Data ProviderStart: 59-27-8535CFV TOTAL+% FREELisa Damien PLASTICS TOOLING ENGINEER Work Phone: Start: 13-25-0797MHU CBC WITH AUTO DIFFGeneric External Data ProviderStart: 57-48-4713AozwvfhyinfMjixjcm ProviderStart: 40-42-7400ZYR UA (CLEAN/CATCH) MICROSCOPIC IF INDICATELisa Damien PLASTICS TOOLING ENGINEER Work Phone: Start: 19-54-7026QZZRJ CULTURE 2Generic External Data ProviderStart: 93-74-7866QRDZD CULTURE 1Generic External Data ProviderStart: 10-09-9834JSS screeningNATHAN CHRISTOPHERComment on above:Performed By: #### [facility] #### [facility] [address] [place] [address] Dr. Tom DotsonStart: 69-38-0841Qayxe depression screening assessmentEmvenkatesh Moore RN Plan of Treatment DateCare ActivityDetailAuthorStart: 93-58-1109Qznnvpjba for malignant neoplasm of colonNOMS HealthcareStart: 11-21-2025 End: 58-89-9634Eqcmmoc encounter kqubzgnsa99/02/2026 4:30 PM EST Office Visit [facility] [address] [place] [address] Azul Quezada, ORACIO [address] [place] [address] KAELYN FLOREZ FMStart: 02-25-2026Medicare Annual Wellness (AWV) Medicare Annual Wellness (AWV)NOMS HealthcareStart: 07-18-2025 End: 46-51-7348Cqjyvlg encounter hdpzpyvlg13/27/2025 1:20 PM EDT Office Visit [facility] [address] [place] [address] Azul Quezada, PLASTICS TOOLING ENGINEER [address] [place] [address] [facility] FMStart: 72-45-2965Lpibtmmhg vaccinationInfluenza Vaccine (#1)NOMS HealthcareStart: 05-17-2025 End: 95-00-6249Blegdzo encounter ditlmvhbe36/26/2025 3:20 PM EDT Office Visit [facility] [address] [place] [address] Azul Quezada, PLASTICS TOOLING ENGINEER [address] [place] [phone] Tourette's (Primary Dx); Centrilobular emphysema (HCC); Bilateral carotid artery stenosis; Rising PSA level; Mixed hyperlipidemia ; Depression with anxiety; Former smoker; Elevated glucoseNOOKLAHOMA ER & HOSPITAL [facility]MOND FMComment on above:Tourette's (Primary Dx); Centrilobular emphysema (HCC); Bilateral carotid artery stenosis; Rising PSA level; Mixed hyperlipidemia ; Depression with anxiety; Former smoker; Elevated glucoseStart: 05-17-2025 End: 70-74-1362Riiaparnmwqcj metabolic 2000 panel - Serum or PlasmaComprehensive metabolic panel Lab Routine Mixed hyperlipidemia Elevated glucose Expected: 05/17/2025 (Approximate), Expires: 05/17/2026NOMS HealthcareComment on above: Expected: 05/17/2025 (Approximate), Expires: 05/17/2026Start: 05-17-2025 End: 52-41-3446Tfllpjfanb A1c/Hemoglobin.total in BloodHemoglobin A1c Lab Routine Elevated glucose Expected: 05/17/2025 (Approximate), Expires: 05/17/2026 NOMS HealthcareComment on above:Expected: 05/17/2025 (Approximate), Expires: 05/17/2026Start: 05-17-2025 End: 57-38-4241Ebtia 1996 panel - Serum or PlasmaLipid panel Lab Routine Mixed hyperlipidemia Expected: 05/17/2025 (Approximate), Expires: 05/17/2026[facility] HealthcareComment on above:Expected: 05/17/2025 (Approximate), Expires: 05/17/2026Start: 05-17-2025 End: 23-45-5391JHX, total and freePSA, total and free Lab Routine Rising PSA level Expected: 05/17/2025 (Approximate), Expires: 05/17/2026[facility] Work Phone: Comment on above:Expected: 05/17/2025 (Approximate), Expires: 05/17/2026Start: 05-17-2025 End: 93-70-4242Xcrfzxoarut [Units/volume] in Serum or PlasmaTSH Lab Routine Depression with anxiety Expected: 05/17/2025 (Approximate), Expires: 05/17/2026 NOMS HealthcareComment on above:Expected: 05/17/2025 (Approximate), Expires: 05/17/2026Start: 05-17-2025 End: 80-62-2533Fwqriirrac complete panel - UrineUrinalysis with reflex microscopic (clean catch) Lab Routine Former smoker Expected: 05/17/2025 (Vilma roximate), Expires: 05/17/2026[facility] HealthcareComment on above:Expected: 05/17/2025 (Approximate), Expires: 05/17/2026Start: 05-17-2025 End: 14-64-4116XM Hip - right 3 ViewsXR hip right 2 or 3 views Imaging Routine Pain of right hip Expected: 05/17/2025, Expires: 05/17/2026[facility] Healthcare Comment on above:Expected: 05/17/2025, Expires: 05/17/2026Start: 02-15-2025 End: 96-54-0937Ottjgju encounter procedureNOMS CWM FMComment on above: Cerebrovascular accident (CVA), unspecified mechanism (CMS/HCC) (Primary Dx); Overweight (BMI 25.0-29.9); Depression with anxiety; Centrilobular emphysema (CMS/HCC)Start: 11-16-2024 End: 30-66-8468Ndjlmru encounter procedureNOMS CWM FMComment on above: Cerebrovascular accident (CVA), unspecified mechanism (CMS/HCC) (Primary Dx); Centrilobular emphysema (CMS/HCC); Bilateral carotid artery stenosis; Overweight (BMI 25.0-29.9); Depression with anxiety; Encounter for subsequent annual wellness visit (AWV) in Medicare patientStart: 11-16-2024 End: 83-22-2879RR Chest 2 ViewsXR chest 2 views Imaging Routine COPD with acute exacerbation (CMS/HCC) Expected: 11/16/2024 (Approximate), Expires: 11/16/2025 [facility] Healthcare Work Phone: Comment on above:Expected: 11/16/2024 (Approximate), Expires: 11/16/2025Start: 02-22-2025Medicare Annual Wellness (AWV)Medicare Annual Wellness (AWV)[facility] HealthcareStart: 08-16-2024 End: 92-75-5786Jgrofot encounter procedureNOMS CWM FMComment on above:Primary insomnia (Primary Dx); Cerebrovascular accident (CVA), unspecified mechanism (CMS/HCC); Centrilobular emphysema (CMS/HCC); Bilateral carotid artery stenosis; Sessile colonic polyp; Smoker; Depression with anxietyStart: 37-53-1755Nsoyogrqk for malignant neoplasm of colonNOMO HealthcareStart: 06-01-2024 End: 58-77-9928JGR, total and freePSA, total and free Lab Routine Rising PSA level Expected: 06/01/2024 (Approximate), Expires: 06/01/2025[facility] Healthcare Work Phone: Comment on above:Expected: 06/01/2024 (Approximate), Expires: 06/01/2025Start: 56-52-0488Rtzygmpxy vaccinationLONE PEAK HOSPITAL HealthcareStart: 05-19-2024 End: 36-26-2732BXA W Auto Differential panel - BloodCBC and differential Lab Routine Smoker Expected: 05/19/2024 (Approximate), Expires: 05/19/2025[facility] Work Phone: Comment on above:Expected: 05/19/2024 (Approximate), Expires: 05/19/2025Start: 05-19-2024 End: 15-54-1860Qildsrtsnnjez metabolic 2000 panel - Serum or PlasmaComprehensive metabolic panel Lab Routine Depression with anxiety Mixed hyperlipidemia (CMS/HCC) Expected: 05/19/2024 (Approximate), Expires: 05/19/2025[facility] Comment on above:Expected: 05/19/2024 (Approximate), Expires: 05/19/2025Start: 05-19-2024 End: 50-01-3148Vtjmq 1996 panel - Serum or PlasmaLipid panel Lab Routine Mixed hyperlipidemia (CMS/HCC) Expected: 05/19/2024 (Approximate), Expires:05/19/2025 NOMS HealthcareComment on above:Expected: 05/19/2024 (Approximate), Expires: 05/19/2025Start: 05-19-2024 End: 18-01-5154Esgiafu encounter truktxefm62/28/2024 2:00 PM EDT Office Visit [facility] [address] [place] [address] Azul Quezada, ORACIO [address] [facility] [place] [address] Screening for prostate cancer (Primary Dx); Smoker; Depression with anxiety; Mixed hyperlipidemia (CMS/HCC)[facility] FMComment on above:Screening for prostate cancer (Primary Dx); Smoker; Depression with anxiety; Mixed hyperlipidemia (CMS/HCC)Start: 05-19-2024 End: 79-64-6911Mosmbrqn specific Ag [Mass/volume] in Serum or PlasmaPSA Lab Routine Screening for prostate cancer Expected: 05/19/2024 (Approximate), Expires: 05/19/2025[facility] HealthcareComment on above:Expected: 05/19/2024 (Approximate), Expires: 05/19/2025Start: 05-19-2024 End: 67-00-0822Ilxqkiolgd complete panel - UrineUrinalysis with reflex microscopic (clean catch) Lab Routine Smoker Expected: 05/19/2024 (Approximate), Expires: 05/19/2025NOMS HealthcareComment on above:Expected: 05/19/2024 (Approximate), Expires: 05/19/2025Start: 41-40-9818Zoitqkgll vaccination Influenza Vaccine (#1)NOMS HealthcareComment on above:Postponed from 2023 (Patient Refused)Start: 01-14-2024 End: 78-50-3780DF Carotid arteries - bilateralVas carotid duplex bilateral Vascular Ultrasound Routine Internal carotid artery stenosis, right Expected: 01/14/2024, Expires: 01/13/2025[facility] Work Phone: Comment on above:Expected: 01/14/2024, Expires: 01/13/2025Start: 11-13-2023 End: 12-35-8505Xqydyca encounter /22/2024 9:40 AM EST Office Visit [facility] [address] [place] [address] Azul Quezada, PLASTICS TOOLING ENGINEER [address] [place] [address] [facility] FMStart: 10-30-2023 End: 88-49-2642Uibpops encounter rldoiwomt54/08/2024 10:00 AM EST Office Visit [facility] [address] [place] [address] Azul Quezada, PLASTICS TOOLING ENGINEER [address] [place] [address] [facility] FMStart: 77-15-7424Rsdewqmog vaccinationInfluenza Vaccine (#1)NOMS HealthcareStart: 71-52-6236Lbiqg BMI ScreeningAdult BMI ScreeningProAultman Orrville Hospitalca Health SystemStart: 41-37-5720Xqmfvpg ScreeningTobacco ScreeningProAultman Orrville Hospitalca Health SystemStart: 17-78-0193Taildjzuxy ScreeningDepression ScreeningProAultman Orrville Hospitalca [facility] SystemStart: 22-65-9708Zczkmghahewnzz of varicella zoster vaccineZoster (Shingles) Vaccine (1 of 2)[facility] SystemStart: 88-24-5606VNvJ,Tdap and Td Vaccines (1 - Tdap)DTaP,Tdap and Td Vaccines (1 - Tdap)[facility] SystemStart: 15-73-5327Itbubawqvxuw Vaccine: 65+ Years (1 of 2 - PCV)Pneumococcal Vaccine: 65+ Years (1 of 2 - PCV)[facility] HealthcareStart: 1960Medicare Annual Wellness (AWV)Medicare Annual Wellness (AWV)[facility] HealthcareStart: 44-01-8909Dcnjvbxwe for malignant neoplasm of colonNOMO HealthcareStart: 21-42-5603Snmbrvwdb for malignant neoplasm of lungLung Cancer Screening Shared Decision MakingLONE PEAK HOSPITAL HealthcareBLOOD CULTURE 1BLOOD CULTURE 1 Lab Routine 10/21/2023 12:27 PM ESTLONE PEAK HOSPITAL HealthcareBLOOD CULTURE 2BLOOD CULTURE 2 Lab Routine 10/21/2023 12:30 PM ESTSaint John's Aurora Community Hospital Immunizations Immunization DateImmunizationNotesCare KndnapmuBqxwiiku66-77-1189UINXXBY - Respiratory syncytial virus (RSV), vaccine, bivalent, protein subunit RSV prefusion F, diluent reconstituted, 0.5 mL, PFLisa Aichholz PLASTICS TOOLING ENGINEER Work Phone: [facility] HospitalOkveoslkpo37-74-6209Ktmezkkcs, injectable, Madin Marjan Canine Kidney, preservative free, quadrivalentLisa Aichholz PLASTICS TOOLING ENGINEER Work Phone: [facility] HospitalQsjzwpduyh72-96-1295cuegptkzu virus vaccine, unspecified formulationLisa Aichholz PLASTICS TOOLING ENGINEER Work Phone: [facility] HospitalLzxmsrtvyx10-00-2770jsdkrodtv, live, intranasal, quadrivalentLisa Aichholz PLASTICS TOOLING ENGINEER Work Phone: [facility] HospitalXgmjpmcoap58-31-0689leuqvjwir virus vaccine, unspecified formulationGeneric ProviderSaint John's Aurora Community HospitalTuudjrmbqn16-66-6641dgwfcwimk, high dose seasonal, preservative-freeLisa Aichholz PLASTICS TOOLING ENGINEER Work Phone: [facility] HospitalMrqzepgopq93-64-0464drdnduyms, injectable, quadrivalent, preservative freeLisa Aichholz PLASTICS TOOLING ENGINEER Work Phone: [facility] Wwdpfbbgdt44-84-4038asnwqzulh virus vaccine, unspecified formulationEmLos [facility] System Payers DatePayer CategoryPayerPolicy ID2019MedicaidMEDICAID [facility] MEDICAID [id number] 2019-Present [phone] [address] [place] [address] [id number] 1994Medicare [id number] [id number] 1960 [id number] 2.16.840.1.927922.3.57[id number] 2.16.840.1.324926.3.57[id number] 2.16.840.1.087194.3.57[id number] 2.16.840.1.154335.3.57[id number] 2.16.840.1.229819.3.57[id number] 2.16.840.1.086499.3.57[id number] 2.16.840.1.936036.3.57[id number] 2.16.840.1.324482.3.57[id number] 2.16.840.1.431806.3.57[id number] 2.16.840.1.352131.3.57[id number] 2.16.840.1.694255.3.57[id number] 2.16.840.1.200977.3.57[id number] 2.16.840.1.119530.3.57[id number] 2.16.840.1.480586.3.57[id number] 2.16.840.1.564182.3.579.2.1286 [id number] 1960Unknown [id number] Social History DateTypeDetailFacilityTobacco smoking status NHISTobacco smoking consumption unknownNOMS HealthcareStart: 50-15-2636Qoj Assigned At BirthNot on fileNOMO HealthcareStart: 10-30-2023 End: 31-17-9716Folofg identityNot on fileLONE PEAK HOSPITAL HealthcareStart: 23-78-6743Zonqbip smoking status NHISEx-smokerNOMS HealthcareStart: 03-22-1984 End: 46-28-2194Utedakr of tobacco useCurrent smokerNOMS HealthcareStart: 03-22-1984 End: 25-55-7544Gluaejc of tobacco useCigarette SmokerNOMS HealthcareStart: 10-30-2023 End: 77-19-0788Bmkxudxkkz smoked current (pack per day) - Useymsyv0TDAP HealthcareStart: 02-08-2021 End: 41-95-0269Kqoakwh use and exposureSmokeless tobacco non-userNOMS Healthcare Start: 10-30-2023 End: 36-51-9412Ugbqsfy intakeCurrent drinker of alcohol (finding)[facility] Start: 69-46-2309Wdqukkp Commentcoffee more than 4 cups per dayNOMS Healthcare Within the last year, have you been afraid of your partner or ex-partner?NoNOMS HealthcareDo you belong to any clubs or organizations such as voodoo groups, unions, fraternal or athletic groups, or school groups?YesNOMS HealthcareAre you now , , , , never or living with a partner?MarriedNOMS HealthcareHow often to you have a drink containing alcohol? NeverNOSaint John's Aurora Community HospitalStart: 09-72-0958Ppz many standard drinks containing alcohol do you have on a typical day?Patient does not drinkNOMS HealthcareDo you feel stress - tense, restless, nervous, or anxious, or unable to sleep at night because yourmind is troubled all the time - these days [OSQ]Only a littleNOMS Healthcare(I/We) worried whether (my/our) food would run out before (I/we) got money to buy more.Never trueNOSaint John's Aurora Community HospitalStart: 65-84-8206Cewkegl smoking status NHISSmokes tobacco dailyL[facility]aster [facility] Hospital SystemStart: 35-34-7096Bjmgehevp beverage intakeEx-drinker (finding)[facility] SystemAre you now , , , , never or living with a partner?Living with partnerLancaster Municipal Hospital SystemHow often to you have a drink containing alcohol? Monthly or lessProWiregrass Medical Center Health SystemDo you feel stress - tense, restless, nervous, or anxious, or unable to sleep at night because yourmind is troubled all the time - these days [OSQ]Not at allSelect Specialty Hospital - Winston-Salemtart: 06-67-9117Zbsbdiq Commentquit 4 days ago as of 12/21/20[facility] Medical Equipment Procedure CodeEquipment CodeEquipment Original TextEquipment IdentifierDatesStnt [facility] 8/6mm 6fr 30mm 135cm - [id number]: 06-12-2020 Goals DatePatient GoalDesired Activity/StatePersonal health goalComment on above: Evaluation of progress towards goal: Return home with self care and family support. Functional Status XeltRihmbqmudyGagaolZyezxtiy10-54-6825Otytslb Health Questionnaire 2 item (PHQ- 2) [Reported][facility] Clinical Notes 10-30-2023 to 05-17-2025 Note Date & DjjcHjvmTyfvmryi59-48-9603 History of Present illness Narrative* Azul Quezada NP - 05/17/2025 5:24 PM EDTAssociated Problem(s): Pain of right hip Check xray and go from there * RACHEL ACEVEDO - 05/17/2025 3:20 PM EDT Request for [facility] pulmonology 02 at 2L aat [...] tightness [facility] [place] * Azul Quezada NP - 05/17/2025 3:20 PM EDT Images from the original note were not included. Sam Carrasco is a 64 y.o. male presents with chief complaint of Hospital Follow-up HPI: TCM fu: COPD exacerbation Admitted to [facility], sent home atb, steroids, oxygen Is [...] (HCC) COVID-19 07/2019 CVA (cerebral vascular accident) ([facility]) Degenerative cervical disc Depression with [...] Polyp Vocal area and Vocal Cord cyst MT EXCISION THYROGLOSSAL DUCT CYST/SINUS Procedure:DL, e/o thyroglossal [...] for this Centrilobular emphysema (HCC) Was established intermediate designer with dr white, now needs a new traveling engineer and needs a referral to [facility] Chest [...] EDTAssociated Problem(s): Centrilobular emphysema (HCC) Was established [facility] with [facility] white, now needs a new traveling engineer and needs a referral to [facility] Chest CT 09/14 new lung masses Current meds: albuterol, Ensifentrine, symbicort, spiriva respimat * Azul Quezada NP - 05/17/2025 6:52 AM EDTAssociated Problem(s): Terry's No current med use for this documented in this encounterSaint John's Aurora Community HospitalCjkcbejrcg61-05-7049 Instructions* Patient Instructions* Azul Quezada NP - 05/17/2025 3:20 PM EDT Refer to dr jansen lung doctor Thuy Rai xray hip documented in this encounterSaint John's Aurora Community HospitalObglrpyqmd45-40-1290 History of Present illness Narrative* RACHEL ACEVEDO [...] as he feels this could result in intermediate designer damage to his lungs SUBJECTIVE: MEDICATIONS: Current [...] accident) ([facility]) Degenerative cervical disc Depression with anxiety Insomnia Marijuana abuse 10/30/2023 Multiple pulmonary nodules Neck mass 2014 Osteoarthritis Papule of skin 11/13/2023 Pigmented skin lesion of uncertain nature Rheumatic fever Stroke (CMS/HCC) 07/2020 Testicle lump Tourette's ([facility]/HCC) Vertebral artery occlusion Vocal cord polyp Past Surgical History: Procedure Laterality Date ADENOIDECTOMY CAROTID STENT Right 09/2019 stent, RT carotid CT GUIDED TRANSVAGINAL TRANSRECTAL FLUID DRAIN 06/09/2020 CT GUIDED TRANSVAGINAL TRANSRECTAL FLUID DRAIN 06/09/2020 OTHER SURGICAL HISTORY Removal of Polyp Vocal area and Vocal Cord cyst MT EXCISION THYROGLOSSAL DUCT CYST/SINUS Procedure:DL, e/o thyroglossal [...] 7:20 AM EDTAssociated Problem(s): Centrilobular emphysema ([facility]/HCC) Continue with pulmonology Continue with inhaler albuterol, we can try to help with PA Chest CT 09/14 new lung masses * Azul Quezada NP - 02/15/2025 7:19 AM EDTAssociated Problem(s): Depression with anxiety Current med: fluoxetine * Azul Quezada NP - 02/15/2025 7:18 AM EDTAssociated Problem(s): CVA (cerebral vascular accident) ([facility]/HCC) No focal weakness Continues as directed by neurology documented in this encounterSaint John's Aurora Community HospitalSmgbxgoqrr38-03-3193 Instructions* Patient Instructions* Azul Quezada NP - 02/15/2025 1:40 PM EDT Return the patient assistance medication forms and we can try to help you get the medications (inhaler) documented in this encounterSaint John's Aurora Community HospitalQmfyvimmjj07-60-1139 History of Present illness Narrative* Azul Quezada NP - 11/16/2024 3:03 PM ESTAssociated Problem(s): COPD with acute exacerbation ([facility]) Add atb, steroids, check cxr Pt needs [...] emphysema ([facility]/HCC) COVID-19 07/2019 CVA (cerebral vascular accident) ([facility]) Degenerative cervical disc Depression with anxiety Insomnia Marijuana abuse 10/30/2023 Multiple pulmonary nodules Neck mass 2013 Osteoarthritis Papule of skin 11/13/2023 Pigmented skin lesion of uncertain nature Rheumatic fever Stroke ([facility]) 07/2020 Testicle lump Tourette's ([facility]) Vertebral artery occlusion Vocal cord polyp Past Surgical History: Procedure Laterality Date ADENOIDECTOMY CAROTID STENT Right 09/2019 stent, RT carotid CT GUIDED TRANSVAGINAL TRANSRECTAL FLUID DRAIN 06/09/2020 CT GUIDED TRANSVAGINAL TRANSRECTAL FLUID DRAIN 06/09/2020 OTHER SURGICAL HISTORY Removal of Polyp Vocal area and Vocal Cord cyst MT EXCISION THYROGLOSSAL DUCT CYST/SINUS Procedure:DL, e/o thyroglossal [...] as directed by neurology documented in this [facility]02-25-2025 Instructions* Patient Instructions* Azul Quezada NP - 11/16/2024 2:00 PM EST Get back into see dr white No dose changes in your meds Chest xray documented in this [facility]11-25-2024 History of Present illness Narrative* Azul [...] emphysema ([facility]) COVID-19 07/2019 CVA (cerebral vascular accident) ([facility]) Degenerative cervical disc Depression with anxiety Insomnia Marijuana abuse 10/30/2023 Multiple pulmonary nodules Neck mass 2013 Osteoarthritis Papule of skin 11/13/2023 Pigmented skin lesion of uncertain nature Rheumatic fever Stroke ([facility]) 07/2020 Testicle lump Tourette's ([facility]) Vertebral artery occlusion Vocal cord polyp Past Surgical History: Procedure Laterality Date ADENOIDECTOMY CAROTID STENT Right 09/2019 stent, RT carotid CT GUIDED TRANSVAGINAL TRANSRECTAL FLUID DRAIN 06/09/2020 CT GUIDED TRANSVAGINAL TRANSRECTAL FLUID DRAIN 06/09/2020 OTHER SURGICAL HISTORY Removal of Polyp Vocal area and Vocal Cord cyst MT EXCISION THYROGLOSSAL DUCT CYST/SINUS Procedure:DL, e/o thyroglossal [...] Relevant Orders Flu vaccine, MDCK, quadrivalent, PF ([id number]) (Flucelvax single dose syringe) (Completed) Former smoker [...] Insomnia Continue with trazodone documented in this encounterSaint John's [facility] Community [id number] Instructions* Patient Instructions* Azul Quezada NP - 08/16/2024 1:20 PM EST Great job at quitting smoking Keep follow up with dr white as directed Follow up with Vascular doctor in [place] as well as directed documented in this [facility]09-09-2024 History of Present illness Narrative* Ibeth [...] Tourette's ([facility]) Vertebral artery occlusion Vocal cord [...] Polyp Vocal area and Vocal Cord cyst MT EXCISION THYROGLOSSAL DUCT CYST/SINUS Procedure:DL, e/o thyroglossal [...] Polyp Vocal area and Vocal Cord cyst MT EXCISION THYROGLOSSAL DUCT CYST/SINUS Procedure:DL, e/o thyroglossal [...] noted above. Remainder are negative per [facility] guidelines. OBJECTIVE: Visit Vitals BP 110/66 Pulse [...] you, Mars Torres DO documented in this encounterSaint John's Aurora Community [id number] History of Present illness Narrative* Azul Quezada [...] accident) ([facility]) Degenerative cervical disc Depression with anxiety Insomnia Marijuana abuse 10/30/2023 Multiple pulmonary nodules Neck mass 2014 Osteoarthritis Papule of skin 11/13/2023 Pigmented skin lesion of uncertain nature Rheumatic fever Stroke ([facility]/HCC) 07/2020 Testicle lump Tourette's (CMS/HCC) Vertebral artery occlusion Vocal cord polyp Past Surgical History: Procedure Laterality Date ADENOIDECTOMY CAROTID STENT Right 09/2019 stent, RT carotid CT GUIDED TRANSVAGINAL TRANSRECTAL FLUID DRAIN 06/09/2020 CT GUIDED TRANSVAGINAL TRANSRECTAL FLUID DRAIN 06/09/2020 OTHER SURGICAL HISTORY Removal of Polyp Vocal area and Vocal Cord cyst MT EXCISION THYROGLOSSAL DUCT CYST/SINUS Procedure:DL, e/o thyroglossal [...] monitor at this time documented in this encounterSaint John's Aurora Community [id number] Miscellaneous Notes* Telephone Encounter - Grace Moore [...] went to but inbox was full and policy writer typist was unable to leave message reminder for [...] if he could have it done in [place] at the [facility] facility there because he doesn't have a car and stated it would be impossible for him to make it to [place]. International Student Counselor confirmed patient had central scheduling phone number to get the scans scheduled. * Telephone Encounter - Grace Moore RN - 01/14/2024 8:50 AM EDT Called patient and got VM but it was full so policy writer typist was unable to leave message reminding patient of imaging that is due. * Telephone Encounter - Grace Moore RN - 01/14/2024 8:50 AM EDT Attempted to call patient and got voicemail but policy writer typist was unable to leave message due to it being full. Will try again later and send letter with order via mail. * Telephone Encounter - Grace Moore RN - 01/14/2024 8:50 AM EDT Attempted to call patient and got voicemail but policy writer typist was unable to leave message due to it being full. Letter and order mailed to address on file. Will follow up in 1 month. * Telephone Encounter - Grace Moore RN - 01/14/2024 8:50 AM EDT Attempted to call patient and got voicemail but policy writer typist was unable to leave message due to it being full. documented in [facility] encounterMer[facility] Telephone encounter Note* Telephone Encounter - Grace Moore RN - 01/14/2024 8:50 AM EDT Per January 2024 recall, patient is due for routine CUS imaging per Dr. Terrell. Please call to remind patient and provide central scheduling number if needed. Will call with results once completed. [facility] Telephone encounter Note* Telephone Encounter - Grace Moore RN - 01/14/2024 8:50 AM EDT Called patient, call went to but inbox was full and policy writer typist was unable to leave message reminder for imaging. Will try again later. [facility] Telephone encounter Note* Telephone Encounter - Ashwini Jonse - 01/14/2024 8:50 AM EDT Received call today 01/14/24 1:05 from patient in regard to previous message and I informed him of clinical staff's messages below - he voiced understanding and I provided him with Central Scheduling phone# to schedule imaging. [facility] Telephone encounter Note* Telephone Encounter - Grace Moore RN - 01/14/2024 8:50 AM EDT Called patient and reminded of imaging that is due. He stated understanding and asked if he could have it done in [place] at the [facility] facility there because he doesn't have a car and stated it would be impossible for him to make it to [place]. International Student Counselor confirmed patient had central scheduling phone number to get the scans scheduled. [facility] Telephone encounter Note* Telephone Encounter - Grace Moore RN - 01/14/2024 8:50 AM EDT Called patient and got but it was full so policy writer typist was unable to leave message reminding patient of imaging that is due. [facility] Telephone encounter Note* Telephone Encounter - Grace Moore RN - 01/14/2024 8:50 AM EDT Attempted to call patient and got voicemail but policy writer typist was unable to leave message due to it being full. Will try again later and send letter with order via mail. [facility] [id number] Telephone encounter Note* Telephone Encounter - Grace Moore RN - 01/14/2024 8:50 AM EDT Attempted to call patient and got voicemail but policy writer typist was unable to leave message due to it being full. Letter and order mailed to address on file. Will follow up in 1 month. [facility] [id number] Telephone encounter Note* Telephone Encounter - Grace Moore RN - 01/14/2024 8:50 AM EDT Attempted to call patient and got voicemail but policy writer typist was unable to leave message due to it being full. [facility] [id number] History of Present illness Narrative* Azul Quezada [...] complaint on file. HPI: Recent hospitalization at [facility] for 3 days d/t influenza. Does [...] emphysema ([facility]) COVID-19 07/2019 CVA (cerebral vascular accident) ([facility]) Degenerative cervical disc Depression with anxiety Insomnia Marijuana abuse 10/30/2023 Multiple pulmonary nodules Neck mass 2013 Osteoarthritis Papule of skin Pigmented skin lesion of uncertain nature Rheumatic fever Stroke ([facility]) 07/2020 Testicle lump Tourette's ([facility]) Vertebral artery occlusion Vocal cord polyp Past Surgical History: Procedure Laterality Date ADENOIDECTOMY CAROTID STENT Right 09/2019 stent, RT carotid CT GUIDED TRANSVAGINAL TRANSRECTAL FLUID DRAIN 06/09/2020 CT GUIDED TRANSVAGINAL TRANSRECTAL FLUID DRAIN 06/09/2020 OTHER SURGICAL HISTORY Removal of Polyp Vocal area and Vocal Cord cyst MT EXCISION THYROGLOSSAL DUCT CYST/SINUS Procedure:DL, e/o thyroglossal [...] PSA level- Primary documented in this encounter [facility]* Diagnosis Depression with anxiety Dysthymic disorder Insomnia, unspecified Mixed hyperlipidemia (CMS/HCC) Mixed hyperlipidemia documented in [facility] encounter [facility]* Diagnosis Internal carotid artery stenosis, right- Primary [facility]* Diagnosis Influenza- Primary Influenza [...] facility Routine general medical examination at a [facility] care facility Depression with anxiety- Primary [...] encounter [facility] HealthcareInstructionsNot on filedocumented in this encounterMercy HospitalReason for referral (narrative)* Consultation (Routine) - Pending ReviewSpecialtyDiagnoses / ProceduresReferred By ContactReferred To Contact General Surgery Diagnoses Sessile colonic polyp Procedures MT OFFICE/OUTPATIENT [facility] 60 MINUTES Azul Quezada, ORACIO [address] [place] [address] Ibeth Torres DO [address] [facility] [address] [place] [address] Referral IDStatusReasonStart DateExpiration DateVisits RequestedVisits [id number] Review Specialty Services Required [id number] [facility] Summary Purpose Family History No [...] Vas carotid duplex bilateral Andrew Terrell MD [address] [place] [address], [address], [address] [place] [address] Referral IDStatusReasonStart DateExpiration DateVisits RequestedVisits [id number] Review/ Additional Source Comments (unrecognized sect ion and content) No Status Records FoundNo Status Records FoundNo Status Records FoundNo Status Records FoundNo Status Records FoundNo Status Records Found INFORMATION SOURCE (unrecogn ized section and content) DATE CREATED AUTHOR 09/04/2019 [facility] DATE CREATED AUTHOR AUTHOR'S ORGANIZ ATION 09/30/2022 [facility] DATE CREATED AUTHOR AUTHOR'S ORGANIZ ATION 05/19/2025 [facility] DATE CREATED AUTHOR AUTHOR'S ORGANIZ ATION 07/14/2025 [facility] DATE CREATED AUTHOR AUTHOR'S ORGANIZ ATION 07/14/2025 [facility] DATE CREATED AUTHOR AUTHOR'S ORGANIZ ATION 07/14/2025 [facility] Care Teams (unrecognized sec tion and content) Team MemberRelationshipSpecialtyStart DateEnd Date Kiko Zurita MD PCP - GeneralFamily Medicine04/07/23 Azul Quezada NP [address] [place] [address] Referring PhysicianNurse Practitioner04/07/23Team MemberRelationshipSpecialty Start DateEnd Date Kiko Zurita MD [address] [place] [address] [facility]/23 Azul Quezada NP [address] [place] [address] Referring PhysicianNurse Practitioner04/07/23Team MemberRelationshipSpecialty Start DateEnd Date Kiko Zurita MD [address] [place] [address] PCP - [facility] Medicine10/24/23 Azul Quezada NP [address] [place] [address] Referring PhysicianNurse Practitioner04/07/23Team MemberRelationshipSpecialty Start DateEnd Date Kiko Zurita MD [address] [place] [address] [facility]10/24/23 Azul Quezada NP [address] [place] [address] Referring PhysicianNurse Practitioner04/07/23Team MemberRelationshipSpecialty Start DateEnd Date Kiko Zurita MD [address] [place] [address] PCP - Generalmily Medicine10/24/23 Azul Quezada NP [address] [place] [address] Referring PhysicianNurse Practitioner04/07/23Team MemberRelationshipSpecialty Start DateEnd Date Kiko Zurita MD [address] [place] [address] [facility]10/24/23 Azul Quezada NP [address] [place] [address] Referring PhysicianNurse Practitioner04/07/23Team MemberRelationshipSpecialty Start DateEnd Date Kiko Zurita MD [address] [place] [address] [facility]10/24/23 Azul Quezada NP [address] [place] [address] Referring PhysicianNurse Practitioner04/07/23Team MemberRelationshipSpecialty Start DateEnd Date Kiko Zurita MD [address] [place] [address] [facility]10/24/23 Azul Quezada NP [address] [place] [address] Referring PhysicianNurse Practitioner04/07/23Team MemberRelationshipSpecialty Start DateEnd Date Kiko Zurita MD [address] [place] [address] PCP - GeneralFamily Medicine10/24/23 Azul Quezada NP [address] [place] [address] Referring PhysicianNurse Practitioner04/07/23Team MemberRelationshipSpecialty Start DateEnd Date Kiko Zurita MD [address] [place] [address] [facility]10/24/23 Azul Quezada NP [address] [place] [address] Referring PhysicianNurse Practitioner04/07/23Team MemberRelationshipSpecialty Start DateEnd Date Kiko Zurita MD [address] [place] [address] PCP - GeneralFamily Medicine10/24/23 Azul Quezada NP [address] [place] [address] Referring PhysicianNurse Practitioner04/07/23Team MemberRelationshipSpecialty Start DateEnd Date Azul Quezada, EVENT REPRESENTATIVE-[facility] [address] [place] [address] PCP - GeneralNurse Mxwzzkzgbfug56/9/19Team MemberRelationshipSpecialtyStart Date End Date Kiko Zurita MD [address] [place] [address] [facility] - [facility]10/[facility]/23 Azul Quezada NP [address] [place] [address] [facility] Azul Quezada NP [address] [place] [address] Referring PhysicianNurse Practitioner04/07/23Team MemberRelationshipSpecialty Start DateEnd Date Kiko Zurita MD [address] [place] [address] PCP - [facility]10/24/23 Azul Quezada NP [address] [place] [address] [facility]10/[facility]/24 Azul Quezada NP [address] [place] [address] Referring PhysicianNurse Practitioner04/07/23Team MemberRelationshipSpecialty Start DateEnd Date Kiko Zurita MD [address] [place] [address] PCP - [facility]10/24/23 Azul Quezada NP [address] [place] [address] PCP - [facility]10/29/24 Azul Quezada NP [address] [place] [address] Referring PhysicianNurse Practitioner04/07/23Te MemberRelationshipSpecialty Start DateEnd Date Kiko Zurita MD [address] [place] [address] PCP - [facility] Medicine10/24/23 Azul Quezada NP [address] [place] [address] PCP - [facility]10/29/24 Azul Quezada NP [address] [place] [address] Referring PhysicianNurse Practitioner04/07/23Te MemberRelationshipSpecialty Start DateEnd Date Kiko Zurita MD [address] [place] [address] [facility]10/24/23 Azul Quezada NP [address] [place] [address] PCP - [facility]10/29/24 Azul Quezada NP [address] [place] [address] Referring PhysicianNurse Practitioner04/07/23Team MemberRelationshipSpecialty Start DateEnd Date Kiko Zurita MD [address] [place] [address] PCP - GeneralFamily Medicine10/24/23 Azul Quezada NP [address] [place] [address] PCP - [facility]10/29/24 Azul Quezada NP [address] [place] [address] Referring PhysicianNurse Practitioner04/07/23Team MemberRelationshipSpecialty Start DateEnd Date Kiko Zurita MD [address] [place] [address] PCP - GeneralFamily Medicine10/24/23 Azul Quezada NP [address] [place] [address] PCP - [facility]10/29/24 Azul Quezada NP [address] [place] [address] Referring PhysicianNurse Practitioner04/07/23Team MemberRelationshipSpecialty Start DateEnd Date Kiko Zurita MD [address] [place] [address] PCP - GeneralFamily Medicine10/24/23 Azul Quezada NP [address] [place] [address] PCP - [facility]10/29/24 Azul Quezada NP [address] [place] [address] Referring PhysicianNurse Practitioner04/07/23Team MemberRelationshipSpecialty Start DateEnd Date Kiko Zurita MD [facility]10/24/23 Azul Quezada NP [address] [place] [address] PCP - [facility]10/29/24 Azul Quezada [...] BE BASED ON THE PRIMARY CLINICAL RECORDS. [facility]. provides no warranty or guarantee of the accuracy or completeness of information in this document.
[2025-08-22 13:19] LABS: Alanine Aminotransferase 56 U/L (16-63); Albumin Globulin Ratio 1.1; Albumin Level 3.5 g/dL (3.4-5.0); Alkaline Phosphatase 66 U/L (46-116); Anion Gap 8.4; Aspartate Amino Transferase 29 U/L (15-37); Blood Urea Nitrogen 10.0 mg/dL (7.0-18.0); Calcium 9.0 mg/dL (8.5-10.1); Carbon Dioxide 32.7 mmol/L (21.0-32.0); Chloride 105 mmol/L (98-107); Estimated GFR (African America >60 (>=60 mL/min/1.73m^2); Estimated GFR (Non-African Ame >60 (>=60 mL/min/1.73m^2); Globulin 3.1 g/dL; Glucose 94 mg/dL (74-106); NT Pro B Type Natriuretic Pept 94.0 pg/mL (<=900.0); Potassium 4.1 mmol/L (3.5-5.1); Sodium 142 mmol/L (136-145); Total Protein 6.6 g/dL (6.4-8.2)
[2025-08-22] MEDS: FUROSEMIDE 20 MG TABLET 40 MG PO (14:37)
== END 2025-08-22 14:52 | disposition home or self-care (01) ==
PROVIDERS: Emergency Provider Emergency Medicine; PCP Nurse Practitioner
DX: R60.0 Localized edema (principal); Z99.81 Dependence on supplemental oxygen; I69.354 Hemiplegia and hemiparesis following cerebral infarction affecting left non-dominant side; Z87.891 Personal history of nicotine dependence; R06.02 Shortness of breath
CPT/HCPCS: 36415; 71045; 80053; 83880; 84484; 85025; 93005; 93971; 94640; 99285

== ENCOUNTER 2025-09-02 14:40 | Outpatient (OUT) | payer MEDICARE, SELFPAY ==
--- OUTSIDE RECORDS SUMMARY | 2025-08-29 07:07 | XMS_ITS | Continuity of Care Document ---
Author Organization [facility] Address [address] [place] [address] Phone Care Team Providers Care Analytical Data Scientist Name Role Phone NON STAFF Primary Care Provider Delmis Adams MD Attending Provider [phone] Baltazar Gil DO Attending Provider Azul Quezada NP-C Primary Care Provider Mary Zamudio DO Attending Provider Mio Watkins MD Attending Provider Azul Quezada NP-C Attending Provider Care Teams Patient Care Team Team Status: Active Member Role/Relationship Status Dates Azul Quezada NP-C Primary Care Provider Active Visit Care Team Team Status: Active Member Role/Relationship Status Dates NON STAFF Primary Care Provider Active Start: July 07, 2025 Marisol Palma ProviderActiveStart: July 07, 2025 Visit Care Team Team Status: Active Member Role/Relationship Status Dates NON STAFF Primary Care Provider Active Start: July 23, 2025 Harman Ceja ProviderActiveStart: July 23, 2025 Visit Care Team Team Status: Active Member Role/Relationship Status Dates Azul Quezada GAUGE CHECKER-C Primary Care Provider Active Start: August 10, 2025 Mary Zamudio DOAttkarina ProviderActiveStart: August 10, 2025 Visit Care Team Team Status: Active Member Role/Relationship Status Dates Azul Quezada GAUGE CHECKER-C Primary Care Provider Active Start: August 11, 2025 Marisol Del Angel ProviderActiveStart: August 11, 2025 Visit Care Team Team Status: Active Member Role/Relationship Status Dates Azul Quezada GAUGE CHECKER-C Primary Care Provider Active Start: August 14, 2025 Marisol Del Angel ProviderActiveStart: August 14, 2025 Visit Care Team Team Status: Inactive Member Role/Relationship Status Dates Azul Quezada GAUGE CHECKER-C Primary Care Provider Active Start: August 16, 2025 End: August 16, 2025Azul Quezada GAUGE CHECKER-CAttengutierrez ProviderActiveStart: August 16, 2025 End: August 16, 2025 Patient Care Team Team Status: Active Member Role/Relationship Status Dates Azul Quezada GAUGE CHECKER-C Primary Care Provider Active Start: August 22, 2025 Marisol Palma ProviderActiveStart: August 22, 2025 Patient Care Team Team Status: Inactive Member Role/Relationship Status Dates Azul Quezada , GAUGE CHECKER-C Primary Care Provider Active Start: August 29, 2025 End: August 29, 2025Azul Quezada GAUGE CHECKER-CAttengutierrez ProviderActiveStart: August 29, 2025 End: August 29, 2025 Chief Complaint and Reason for Visit Chief Complaint Admit Date Discharge FollowUp [place] July 2:18pm [facility] f/u COPD August 29, 2025 1 1:23am Reason for Visit Admit Date Centrilobular emphysema August 16, 2 025 2:18pm CVA (cerebral vascular accident) Novem r 2024 2:18pm Depression with anxiety August 16, 2 025 2:18pm Essential hypertension August 16 2:18pm Mixed hyperlipidemia August 16, 2025 2:18pm Vertebral artery occlusion July 2:18pm Bilateral lower extremity edema August 29, 2025 11:23am Centrilobular emphysema August 29 11:23am CVA (cerebral vascular accident) Decembe r 2024 11:23am Depression with anxiety August 29 11:23am Essential hypertension August 29 11:23am Mixed hyperlipidemia August 29, 2025 11:23am Vertebral artery occlusion August 29, 2025 11:23am Reason for Referral Type Reason(s) Provider Provider Contact Information Jose Alberto manning Address Start Date Centrilobular emphysema J43.2 - Centrilobular qbwmzjoivD80.2 - Centrilobular emphysemaFPG Pulmonary MedicineWork Phone: [phone] [address] [id number] Allergies, Adverse Reactions, Alerts Allergen Type Severity Reaction Last Updated Verified Status bee pollen Allergy Unknown Anaphylaxis August 1:26am Yes Active bee venom protein (honey bee) Allergy Unknown Anaphylaxis September 02 019 1:26am Yes Active Social History Smoking Status Status Start Date End Date Date of Observa tion Smokes tobacco daily (finding) May 19, 2025 10:41am Observation Status Observation Response Date of Response Legal Sex Male (finding) Sex Assigned At BirthMaleSeptember 1959 Family History Relationship Condition Age at Onset Recorded Date/T hyacinth father Malignant neoplasm of lung Unknown Problems Active Problems Problem Diagnosis/Recorded Date Onset Date Status C omments Depression with anxiety July 12, 2025 8:04am Unknown Active Right hand painOctober 2024 8:16amUnknownActiveElevated glucoseOctober 2024 8:05amUnknownActiveBilateral lower extremity edemaDecember 2024 7:02amUnknownActiveInsomniaSeptember 2024 6:52pmUnknownActiveScreening for prostate cancerOct2024 8:18amUnknownActiveLong term current use of inhaled steroidOct2024 8:14amUnknownActiveEncounter for screening mammogram for malignant neoplasm of breastOct2024 8:13amUnknownActive COPD with acute exacerbationOctober 2024 8:03amUnknownActiveVertebral artery occlusionOctober 2024 8:20amUnknownActiveOverweight (BMI 25.0-29.9) July 12, 2025 8:15amUnknownActivePolyp of vocal cordOct2024 8:16amUnknownActiveCentrilobular emphysemaOctober 2024 8:03amUnknownActive Marijuana useOctober 2024 8:14amUnknownActiveCerebral infarctionOctober 2024 5:36amUnknownActiveStenosis of right internal carotid arteryOctober 2024 8:13amUnknownActiveMixed hyperlipidemiaSeptember 2024 6:53pm UnknownActiveOsteoarthritisOctober 2024 8:15amUnknownActiveDDD (degenerative disc disease), cervicalOctober 2024 8:04amUnknownActive Rising PSA levelOctober 2024 8:18amUnknownActiveEssential hypertension July 15, 2025 4:56amUnknownActiveFormer smokerOctober 2024 8:13am UnknownActiveBMI 26.0-26.9,adultOctober 2024 7:57amUnknownActiveMultiple pulmonary nodulesOctober 2024 8:15amUnknownActiveCalcified lymph nodes July 12, 2025 7:57amUnknownActiveCOPD (chronic obstructive pulmonary disease)September 02, 2019 5:22pmUnknownActivePain in right hipOctober 2024 8:15amUnknownActiveSessile colonic polypOctober 2024 8:19amUnknown ActiveAllergic rhinitisOctober 2024 7:56amUnknownActiveBilateral carotid artery stenosisOctober 2024 7:57amUnknownActiveTourette'sOctober 2024 8:20amUnknownActiveCVA (cerebral vascular accident)July 12, 2025 8:03amUnknownActiveInactive/Resolved Problems Problem Diagnosis/Recorded Date Onset Date Status C omments Major depressive disorder September 02, 2019 11:59am Unknown Resolved Prob maximiliano List clean-up per request of Phys. EHR Cmte Vitamin D deficiency September 02, 2019 5:22pm Unknown Resolved Problem List clean-up per request of Phys. EHR Cmte Medications Medication Status Dose Units Route Directions Qty Days Refills S tart Date Stop Date End Date Reason(s) Instructions Adherence Trazodone 50 mg tablet Active 50 MG PO Daily at bedtime as needed for insomnia 90 1Sept2024 11:00pmInsomnia Insomnia, unspecifiedUnknownAtorvastatin 40 mg cetkzmYohcwu44BUWXAzzrx at eltzffd560Ccezoxfki 28th, 2025 11:00pmMixed hyperlipidemia Mixed hyperlipidemiaUnknownSodium Chloride ([place] [facility]) 0.65 % pytysDfsdnm1DGRFD INTRANASALFour times daily as needed for dry nasal hfxiytbz273Kjudtenh 2024 12:00amCentrilobular emphysema Centrilobular emphysemaUnknownAlbuterol Sulfate 2.5 mg /3 mL (0.083 %) solution for yciypfmobehyVfjclg9DXMSLUFWDESNJDbmdl times daily as needed for Shortness Of Breath Or [facility]ezingEv[facility] 2018 12:00amUnknownTiotropium [place] 2.5 mcg/actuation nrcmAoyvpl3YFESHDBVWOUDMCDvvpnOmtacdwl 2018 12:00amUnknown Meloxicam 15 mg ffkskmHvtfsprwamup54CXHTRbizxPjbfqtwe 2018 12:00am[facility] 2024 4:57amTizanidine 4 mg vfzhfkUgmyvoiwjnlg5GQOYOrpyaukMpghgipb 2018 12:00[facility] 2024 4:57amFluticasone Propion-Salmeterol 115-21 mcg/actuation HFA aerosol kegicnjTpxfayclcwkh9NPEGKHAFDLMOKGChwzn dailyEvangelical Community Hospital 2018 12:00amOctcl[facility] 2024 4:57amFluoxetine 10 mg CapsuleDiscontinued 20MGPOEvery towcrcl87710Zwjolohc 2018 12:00[facility] 2024 4:55am Ipratropium-Albuterol 0.5 mg-3 mg(2.5 mg base)/3 mL solution for nebulization Ydevjd2BXFDJOJCTKCHzjmfb 6 to 8 hours as neededJohn D. D[facility] 2024 11:00pmUnknown Triamcinolone Acetonide (Nasacort Allergy) 55 mcg aerosol,zdnhnPmmxdg3ZHUUN INTRANASALDaRehabilitation Hospital of [facility] 2024 11:00pmadminister into each nostrilUnknown Losartan 25 mg hxhvsjSkuqux65JYSHBtqgwOpqaxea 2024 11:00pmPrimary hypertension Essential (primary) hypertensionUnknownAspirin 81 mg pdmvisScubsq41XNNGNxyxq July 14, 2025 11:00pmUnknownAlbuterol Sulfate 90 mcg/actuation HFA aerosol ogetfymFvvljg1ZZBGFIGTBCRLSFVyro times daily as neededJuly 14, 2025 11:00pm UnknownFluoxetine 20 mg wmzqttkHyumbbjhdhct45FPQZQbkohWvgdtqb 23rd, 2025 11:00pm August 16, 2025 2:51pmBudesonide-Formoterol (Symbicort) 160-4.5 mcg/actuation HFA aerosol zcylamnSckmxu4IIAPNAHMTYFRQUVfnya 12 hoursOct2024 11:00pmUnknownFurosemide (Lasix) 20 mg xzoccwZacryd80MWBJCodsc August 23, 2025 12:00amComplies with drug therapyPrednisone 20 mg tablet Ocbujz53LQRXBblbgYjeavrwm 25th, 2025 12:00amUnknownAzithromycin 500 mg tablet Lrislfwowufc568MHYOPczsvKmwatnbu 25th, 2025 12:00amDece2024 7:00am Ticagrelor 90 mg oyhdsmXpzysr83UPVAQppqa dailyAugust 16, 2025 12:00amUnknown Relevant Diagnostic Tests and/or Laboratory Data Laboratory Results Test Collection Date/Time Result Date/Time Result Interpretation Reference Range Result Comment Performing Site Activated Partial Thromboplast Time July 07, 2025 8:56am July 07, 2025 8:56am 21.4 sec Below low normal 22.3-36.2 Troponin I High SensitivityOct2024 8:56amJuly 07, 2025 8:56am7.5 pg/mL4.0-76.1CUT-OFF POINTS HAVE BEEN ESTABLISHED BASED ON THE FOURTHUNIVERSAL DEFINITION OF MYOCARDIAL INFARCTION. THE UPPERREFERENCE LIMIT (URL) OF TROPONIN, DEFINED THE 99THPERCENTILE OF cTnI DISTRIBUTION IN A REFERENCE POPULATION,HAS BEEN CONFIRMED THE DECISION THRESHOLD FOR MIDIAGNOSIS.99TH PERCENTILE = 76.2 PG/MLNOTE: HIGH-SENSITIVITY TROPONIN ASSAY IS NOT INTENDED TO BEUSED IN ISOLATION BUT SHOULD BE INTERPRETED IN CONJUNCTIONWITH OTHER DIAGNOSTIC AND CLINICAL INFORMATION.Magnesium LevelOct2024 8:56amJuly 07, 2025 8:56am2.3 mg/dL1.8-2.4Anion GapOct2024 8:56am12.9Prothromb Time International RatioOctober 2024 8:56amOctober 2024 8:56am0.97DESIRED INR:2.0-3.0 CONDITIONS NOT LISTED BELOW2.5-3.5 FOR PROSTHETIC HEART VALVE REPLACEMENT2.5-3.5 RECURRENT THROMBOSISBasophils # (Auto)July 07, 2025 8:56amOctober 2024 8:56am0.1 10 3/uL0.0-0.1RSV RNA Qual (PCR)(MISC)July 07, 2025 9:40amOctober 2024 9:40amNot DetectedNOT LXLRDCWBYJF-UxA-8 Ag (CV2AG)July 07, 2025 9:40amOctober 2024 9:40amNEGATIVENEGATIVEThis test has not been FDA cleared or approved, but has beenauthorized by the FDA under an Emergency Use Authorization(EUA) for use by authorized laboratories certified underIA that meet the requirements to perform moderate or highcomplexity testing. This test has been authorized only forthe detection of proteins from SARS-CoV-2, not for any otherviruses or pathogens. The emergency use of this test isauthorized for the duration of the declaration thatcircumstances exist justifying the authorization ofemergency use of in vitro diagnostic tests for detectionand/or diagnosis of Covid-19 under section 564(b)(1) of theAct, 21 U.S.C. 360bbb-3(b)(1), unless the declaration isterminated or authorization is revoked sooner.Bedside Influenza Type A Antigen July 07, 2025 9:40amOct2024 9:40amNegativeNegative for Flu A protein antigen. Infection due to Flu Acannot be ruled out. Flu A antigen in the sample may bebelow the detection limit of the test.Brett TestOctober 2024 11:52amOct2024 11:52amPOSITIVEPOSITIVELipaseNov2024 6:24am July 23, 2025 6:24am19.0 U/L16.0-77.0B-Type Natriuretic PeptideNov2024 6:24amNovember 5 6:24am73.0 pg/mL<=900.0Troponin I High SensitivityJuly 23, 2025 6:24amNovember 2024 6:24am7.1 pg/mL4.0-76.1 CUT-OFF POINTS HAVE BEEN ESTABLISHED BASED ON THE FOURTHUNIVERSAL DEFINITION OF MYOCARDIAL INFARCTION. THE UPPERREFERENCE LIMIT (URL) OF TROPONIN, DEFINED THE 99THPERCENTILE OF cTnI DISTRIBUTION IN A REFERENCE POPULATION,HAS BEEN CONFIRMED THE DECISION THRESHOLD FOR MIDIAGNOSIS.99TH PERCENTILE = 76.2 PG/MLNOTE: HIGH-SENSITIVITY TROPONIN ASSAY IS NOT INTENDED TO BEUSED IN ISOLATION BUT SHOULD BE INTERPRETED IN CONJUNCTIONWITH OTHER DIAGNOSTIC AND CLINICAL INFORMATION.Anion GapJuly 23, 2025 6:24amNovember 2024 6:24am 11.0Basophils # (Auto)July 23, 2025 6:24amNovemb2024 6:24am0.1 10 3/uL0.0-0.1Allen TestNov2024 8:05pmNov2024 8:05pm ZSZTZCVJZSIWYHGNNMJB-DyC-5 Ag (CV2AG)August 10, 2025 8:15pmAugust 10, 2025 8:15pmNEGATIVENEGATIVEThis test has not been FDA cleared or approved, but has beenauthorized by the FDA under an Emergency Use Authorization(EUA) for use by authorized laboratories certified underIA that meet the requirements to perform moderate or highcomplexity testing. This test has been authorized only forthe detection of proteins from SARS-CoV-2, not for any otherviruses or pathogens. The emergency use of this test isauthorized for the duration of the declaration thatcircumstances exist justifying the authorization ofemergency use of in vitro diagnostic tests for detectionand/or diagnosis of Covid-19 under s ection 564(b)(1) of theAct, 21 U.S.C. 360bbb-3(b)(1), unless the declaration isterminated or authorization is revoked sooner.Bedside Influenza Type A Antigen August 10, 2025 8:15pmNov2024 8:15pmNegativeNegative for Flu A protein antigen. Infection due to Flu Acannot be ruled out. Flu A antigen in the sample may bebelow the detection limit of the test.B-Type Natriuretic Peptide August 10, 2025 8:35pmAugust 10, 2025 8:35pm72.0 pg/mL<=900.0Troponin I High SensitivityAugust 10, 2025 8:35pmNov2024 8:35pm6.8 pg/mL 4.0-76.1CUT-OFF POINTS HAVE BEEN ESTABLISHED BASED ON THE FOURTHUNIVERSAL DEFINITION OF MYOCARDIAL INFARCTION. THE UPPERREFERENCE LIMIT (URL) OF TROPONIN, DEFINED THE 99THPERCENTILE OF cTnI DISTRIBUTION IN A REFERENCE POPULATION,HAS BEEN CONFIRMED THE DECISION THRESHOLD FOR MIDIAGNOSIS.99TH PERCENTILE = 76.2 PG/MLNOTE: HIGH-SENSITIVITY TROPONIN ASSAY IS NOT INTENDED TO BEUSED IN ISOLATION BUT SHOULD BE INTERPRETED IN CONJUNCTIONWITH OTHER DIAGNOSTIC AND CLINICAL INFORMATION.Anion GapAugust 10, 2025 8:35pmAugust 10, 2025 8:35pm8.4Basophils # (Auto)August 10, 2025 8:35pmNov2024 8:35pm 0.1 10 3/uL0.0-0.1Anion GapAugust 11, 2025 5:17amNovember 2024 5:17am 8.5Basophils # (Auto)August 11, 2025 5:17amNovember 2024 5:17am0.0 10 3/uL0.0-0.1Anion GapAugust 14, 2025 6:05amNovember 2024 6:05am12.8 HematocritAugust 14, 2025 6:05amNovember 2024 6:05am40.5 %Below low ygmfvg06.0-54.0B-Type Natriuretic PeptideDece2024 12:43pmDecember 2024 12:43pm94.0 pg/mL<=900.0Anion Gapcemb2024 12:43pmDecember 2024 12:43pm8.4Troponin I High SensitivityAugust 225 12:43pmDecember 2024 12:43pm8.1 pg/mL4.0-76.1CUT-OFF POINTS HAVE BEEN ESTABLISHED BASED ON THE FOURTHUNIVERSAL DEFINITION OF MYOCARDIAL INFARCTION. THE UPPERREFERENCE LIMIT (URL) OF TROPONIN, DEFINED THE 99THPERCENTILE OF cTnI DISTRIBUTION IN A REFERENCE POPULATION,HAS BEEN CONFIRMED THE DECISION THRESHOLD FOR MIDIAGNOSIS.99TH PERCENTILE = 76.2 PG/MLNOTE: HIGH-SENSITIVITY TROPONIN ASSAY IS NOT INTENDED TO BEUSED IN ISOLATION BUT SHOULD BE INTERPRETED IN CONJUNCTIONWITH OTHER DIAGNOSTIC AND CLINICAL INFORMATION.Basophils # (Auto)August 22, 2025 12:43pmDecemb2024 12:43pm0.1 10 3/uL0.0-0.1Albumin/Globulin RatioOct2024 8:56am1.0Prothrombin TimeOct2024 8:56amOctober 2024 8:56am10.3 sec9.0-11.6Basophils (%) (Auto)July 07, 2025 8:56amOctober 2024 8:56am1.3 %0.2-2.0Bedside Influenza Type B AntigenOct2024 9:40am July 07, 2025 9:40amNegativeNegative for Flu B protein antigen. Infection due to Flu Bcannot be ruled out. Flu B antigen in thesample may bebelow the detection limit of the test.Arterial Blood Base ExcessOctober 2024 11:52am July 07, 2025 11:52am3.5 mmol/LAbove high normal<2.0-2.0Albumin/Globulin RatioNovemb2024 6:24amNovember 2024 6:24am0.9Basophils (%) (Auto) July 23, 2025 6:24amNovember 2024 6:24am0.6 %0.2-2.0Arterial Blood Base ExcessNov2024 8:05pmNov2024 8:05pm5.3 mmol/LAbove high normal<2.0-2.0Bedside Influenza Type B AntigenNov2024 8:15pm August 10, 2025 8:15pmNegativeNegative for Flu B protein antigen. Infection due to Flu Bcannot be ruled out. Flu B antigen in thesample may bebelow the detection limit of the test.Albumin/Globulin RatioNovemb2024 8:35pm August 10, 2025 8:35pm1.1Basophils (%) (Auto)August 10, 2025 8:35pm August 10, 2025 8:35pm0.6 %0.2-2.0BUN/Creatinine RatioNovemb2024 5:17amNovember 2024 5:17am22.7Basophils (%) (Auto)August 11, 2025 5:17amNovember 2024 5:17am0.3 %0.2-2.0BUN/Creatinine RatioNovember 2024 6:05amNovember 2024 6:05am23.7HemoglobinNovember 2024 6:05am August 14, 2025 6:05am12.8 g/dLBelow low ssqcca07.0-18.0Albumin/Globulin RatioDece2024 12:43pmDecember 2024 12:43pm1.1Basophils (%) (Auto) August 22, 2025 12:43pmDecember 2024 12:43pm0.5 %0.2-2.0AlbuminOct2024 8:56am3.7 g/dL3.4-5.0Eosinophils # (Auto)July 07, 2025 8:56am July 07, 2025 8:56am0.0 10 3/uL0.0-0.7Blood Gas Mode BiPAPJunober 2024 11:52amOct2024 11:52am16/8AlbuminNovember 2024 6:24am July 23, 2025 6:24am3.3 g/dLBelow low normal3.4-5.0Eosinophils # (Auto) July 23, 2025 6:24amNovember 2024 6:24am0.0 10 3/uL0.0-0.7Arterial Blood MER5Pisbqjvr 2024 8:05pmNov2024 8:05pm30.3 mmol/LAbove high cwqbod35.0-26.0AlbuminNovember 2024 8:35pmNov2024 8:35pm 3.5 g/dL3.4-5.0Eosinophils # (Auto)August 10, 2025 8:35pmNov2024 8:35pm0.0 10 3/uL0.0-0.7Blood Urea NitrogenNov2024 5:17amNovember 2024 5:17am15.0 mg/dL7.0-18.0Eosinophils # (Auto)August 11, 2025 5:17amNovember 2024 5:17am0.0 10 3/uL0.0-0.7Blood Urea NitrogenNovember 2024 6:05amNovember 2024 6:05am22.0 mg/dLAbove high normal7.0-18.0 Mean Corpuscular HemoglobinNovember 2024 6:05amNovember 2024 6:05am 29.5 pg25.9-34.0AlbuminDecemb2024 12:43pmDecember 2024 12:43pm3.5 g/dL3.4-5.0Eosinophils # (Auto)August 22, 2025 12:43pmDecember 2024 12:43pm0.0 10 3/uL0.0-0.7Alkaline PhosphataseOctober 2024 8:56am73 U/L 46-116Eosinophils (%) (Auto)July 07, 2025 8:56amOctober 2024 8:56am 0.2 %Below low normal0.9-7.1InH0Mzcslkk 2024 11:52amOctober 2024 11:52am25 %Alkaline PhosphataseNov2024 6:24amNovemb2024 6:24am80 U/M54-662Gctvjovrjrh (%) (Auto)July 23, 2025 6:24amNovember 2024 6:24am0.0 %Below low normal0.9-7.0Blood Gas Liter FlowAugust 10, 2025 8:05pmAugust 10, 2025 8:92ec6Mcthvblz PhosphataseC[facility]2024 8:35pm August 10, 2025 8:35pm73 U/V38-002Mlpcsjghzxz (%) (Auto)August 10, 2025 8:35pmAugust 10, 2025 8:35pm0.2 %Below low normal0.9-7.0Calcium Level August 11, 2025 5:17amNovember 2024 5:17am8.9 mg/dL8.5-10.1Eosinophils (%) (Auto)August 11, 2025 5:17amNovember 2024 5:17am0.0 %Below low normal0.9-7.0Calcium LevelAugust 14, 2025 6:05amNovember 2024 6:05am 9.0 mg/dL8.5-10.1Mean Corpuscular Hemoglobin ConcentAugust 14, 2025 6:05am August 14, 2025 6:05am31.6 g/dL29.9-35.2Alkaline PhosphataseDece2024 12:43pmDecember 2024 12:43pm66 U/R97-632Svqoxwlcvgm (%) (Auto)August 22, 2025 12:43pmDecember 2024 12:43pm0.0 %Below low normal0.9-7.0Alanine Aminotransferase (ALT/SGPT)July 07, 2025 8:56am26 U/C41-36XvaziablnkQxkpxar 2024 8:56amOctober 2024 8:56am43.7 %42.0-54.0Arterial Blood HCO3 July 07, 2025 11:52amOctober 2024 11:52am28.5 mmol/LAbove high normal 22.0-26.0Alanine Aminotransferase (ALT/SGPT)July 23, 2025 6:24amNovember 2024 6:24am33 U/R63-34LuusjzivqyRehaioem 1st, 2025 6:24amNovember 2024 6:24am38.4 %Below low .0-54.0Oxygen Delivery DeviceAugust 10, 2025 8:05pmNov2024 8:05pmNASAL CANNULAAlanine Aminotransferase (ALT/SGPT) August 10, 2025 8:35pmNov2024 8:35pm29 U/U24-27Pykevhonhw August 10, 2025 8:35pmNov2024 8:35pm38.7 %Below low normal 42.0-54.0Chloride LevelCrawley Memorial Hospital2024 5:17amNovember 2024 5:73fu923 mmol/U36-269YwkezqbdgeRvwvwfgx 20th, 2025 5:17amNovember 2024 5:17am36.1 % Below low .0-54.0Chloride LevelM[facility] 2024 6:05amNovember 2024 6:05am99 mmol/L92-745Gfzh Corpuscular VolumeNov2024 6:05am August 14, 2025 6:05am93.3 fL80.0-94.0Alanine Aminotransferase (ALT/SGPT) August 22, 2025 12:43pmDecemb2024 12:43pm56 U/L20-05Rdfppzmyao August 22, 2025 12:43pmDecember 2024 12:43pm39.3 %Below low normal 42.0-54.0Aspartate Amino Transf (AST/SGOT)July 07, 2025 8:56am19 U/L15-37 HemoglobinOct2024 8:56amOct2024 8:56am14.0 g/dL14.0-18.0 Reference Lab Test #2 ResultOct2024 11:52amOctober 2024 11:52am 14.3Aspartate Amino Transf (AST/SGOT)July 23, 2025 6:24amNovember 2024 6:24am39 U/LAbove high kiwzcl71-98TnlfujkstxDthzfyvu 1st, 2025 6:24amNovember 2024 6:24am12.1 g/dLBelow low oxivuj77.0-18.0Arterial Blood Oxygen SaturationAugust 10, 2025 8:05pmAugust 10, 2025 8:05pm94.6 %Aspartate Amino Transf (AST/SGOT)August 10, 2025 8:35pmAugust 10, 2025 8:35pm17 U/Y77-57CcambbvrkrSdyfgowu 19th, 2025 8:35pmAugust 10, 2025 8:35pm12.1 g/dL Below low ydsuyp52.0-18.0Carbon Dioxide LevelAugust 11, 2025 5:17amNovemb2024 5:17am30.1 mmol/L21.0-32.0HemoglobinAugust 11, 2025 5:17am August 11, 2025 5:17am11.3 g/dLBelow low hdirjy58.0-18.0Carbon Dioxide Level August 14, 2025 6:05amNovember 2024 6:05am32.8 mmol/LAbove high normal 21.0-32.0Mean Platelet VolumeAugust 14, 2025 6:05amNovember 2024 6:05am9.7 fL9.5-13.5Aspartate Amino Transf (AST/SGOT)August 22, 2025 12:43pm August 22, 2025 12:43pm29 U/G27-98ZwvcczlxmzOkzptuxh 1st, 2025 12:43pm August 22, 2025 12:43pm12.4 g/dLBelow low zouekg55.0-18.0BUN/Creatinine Ratio July 07, 2025 8:56am18.9Immature Granulocyte # (Auto)July 07, 2025 8:56amOctober 2024 8:56am0.06 10 3/uLAbove high normal0.00-0.03Oxygen Delivery DeviceOct2024 11:52amOctober 2024 11:52amBIPAP BUN/Creatinine RatioNove2024 6:24amNovember 2024 6:24am16.9 Immature Granulocyte # (Auto)July 23, 2025 6:24amNovember 2024 6:24am 0.07 10 3/uLAbove high normal0.00-0.03Arterial Blood Partial Pressure CO2 August 10, 2025 8:05pmNovember 2024 8:05pm50.8 mm[Hg]Above upper panic cpyapb12.0-45.0RESULTS CALLED TO MYLA NOVAK, RNBUN/Creatinine RatioNoveer 2024 8:35pmNovember 2024 8:35pm19.2Immature Granulocyte # (Auto) August 10, 2025 8:35pmNovember 2024 8:35pm0.04 10 3/uLAbove high normal0.00-0.03CreatinineAugust 11, 2025 5:17amNovember 2024 5:17am 0.66 mg/dLBelow low normal0.70-1.30Immature Granulocyte # (Auto)August 11, 2025 5:17amNovember 2024 5:17am0.05 10 3/uLAbove high normal0.00-0.03 CreatinineNov2024 6:05amNovember 2024 6:05am0.93 mg/dL 0.70-1.30Platelet CountNov2024 6:05amNovember 2024 6:38li642 10 3/lW352-493FNP/Creatinine RatioDece2024 12:43pmDecember 2024 12:43pm12.0Immature Granulocyte # (Auto)August 22, 2025 12:43pmDecember 2024 12:43pm0.13 10 3/uLAbove high normal0.00-0.03Blood Urea NitrogenOctober 2024 8:56am18.0 mg/dL7.0-18.0Immature Granulocyte % (Auto)July 07, 2025 8:56amOctober 2024 8:56am0.6 %Above high normal0.0-0.5Arterial Blood Oxygen SaturationOctclinton county hospital 2024 11:52amOctober 2024 11:52am98.6 %Blood Urea NitrogenNov2024 6:24amNovember 2024 6:24am12.0 mg/dL 7.0-18.0Immature Granulocyte % (Auto)July 23, 2025 6:24amNovember 2024 6:24am0.7 %Above high normal0.0-0.5Arterial Blood pHNovember 2024 8:05pm August 10, 2025 8:05pm7.3857.350-7.450Blood Urea NitrogenNov2024 8:35pmNovember 2024 8:35pm15.0 mg/dL7.0-18.0Immature Granulocyte % (Auto) August 10, 2025 8:35pmNov2024 8:35pm0.3 %0.0-0.5Estimated GFR ()August 11, 2025 5:17amNovember 2024 5:17am>60>=60 mL/min/1.73m 2Immature Granulocyte % (Auto)August 11, 2025 5:17amNovember 2024 5:17am0.6 %Above high normal0.0-0.5Estimated GFR () August 14, 2025 6:05amNovember 2024 6:05am>60>=60 mL/min/1.73m 2Red Blood CountNov2024 6:05amNovember 2024 6:05am4.34 10 6/uLBelow low normal4.70-6.10Blood Urea NitrogenDece2024 12:43pmDecemb2024 12:43pm10.0 mg/dL7.0-18.0Immature Granulocyte % (Auto)August 22, 2025 12:43pmDecemb2024 12:43pm1.0 %Above high normal0.0-0.5Calcium Level July 07, 2025 8:56am8.9 mg/dL8.5-10.1Lymphocytes # (Auto)July 07, 2025 8:56amOctober 2024 8:56am2.2 10 3/uL1.2-3.8Arterial Blood Partial Pressure AC6Nhknumu 2024 11:52amOctober 2024 11:52am47.6 mm[Hg]Above high zussyx62.0-45.0Calcium LevelJuly 23, 2025 6:24amNovember 2024 6:24am9.2 mg/dL8.5-10.1Lymphocytes # (Auto)July 23, 2025 6:24amNovember 2024 6:24am1.1 10 3/uLBelow low normal1.2-3.8Arterial Blood Partial Pressure V5Watkrhhn2024 8:05pmNov2024 8:05pm70.4 mm[Hg]Below low bueacd70.0-100.0Calcium LevelNov2024 8:35pmNovember 2024 8:35pm8.7 mg/dL8.5-10.1Lymphocytes # (Auto)August 10, 2025 8:35pmNov2024 8:35pm1.2 10 3/uL1.2-3.8Estimated GFR (Non- AmericanNov2024 5:17amNovember 2024 5:17am>60>=60 mL/min/1.73m 2Lymphocytes # (Auto)August 11, 2025 5:17amNovember 2024 5:17am0.4 10 3/uLBelow low normal1.2-3.8Estimated GFR (Non- AmericanNov2024 6:05am August 14, 2025 6:05am>60>=60 mL/min/1.73m 2Red Cell Distribution Width August 14, 2025 6:05amNovember 2024 6:05am12.8 %11.0-15.0Calcium Level August 22, 2025 12:43pmDecember 2024 12:43pm9.0 mg/dL8.5-10.1Lymphocytes # (Auto)August 22, 2025 12:43pmDecember 2024 12:43pm1.4 10 3/uL1.2-3.8 Chloride LevelOctober 2024 8:34sg538 mmol/U81-362Xybcoulqyki (%) (Auto) July 07, 2025 8:56amOctober 2024 8:56am20.3 %Below low normal 20.5-60.0Arterial Blood pHOctober 2024 11:52amOctober 2024 11:52am 7.3867.350-7.450Chloride LevelNov2024 6:24amNovember 2024 6:24am 104 mmol/H73-677Jvxooquekty (%) (Auto)July 23, 2025 6:24amNovember 2024 6:24am10.0 %Below low uzjxft84.5-60.0Chloride LevelNov2024 8:35pmNovember 2024 8:01aa825 mmol/V08-763Gqonyxoiowu (%) (Auto)August 10, 2025 8:35pmNovember 2024 8:35pm9.8 %Below low ymakno85.5-60.0Glucose LevelNov2024 5:17amNovember 2024 5:94bx976 mg/dLAbove high ushzip16-843Epuxzgjiszb (%) (Auto)August 11, 2025 5:17amNovember 2024 5:17am4.4 %Below low urjtkd07.5-60.0Glucose LevelNovember 2024 6:05am August 14, 2025 6:82ga200 mg/dLAbove high fanlzd12-907Rmokrdjoo White Blood CountNovember 2024 6:05amNovember 2024 6:05am14.4 10 3/uLAbove high normal4.0-11.0Chloride LevelDecemb2024 12:43pmDecember 2024 12:43pm 105 mmol/D48-349Mksrvprmmbq (%) (Auto)August 22, 2025 12:43pmDecember 2024 12:43pm11.3 %Below low nrexqt97.5-60.0Carbon Dioxide [facility]Oct[facility] 20[facility] 8:56am29.5 mmol/L21.0-32.0Mean Corpuscular HemoglobinOctclinton [facility] hospital 2024 8:56amOctober 2024 8:56am29.9 pg25.9-34.0Arterial Blood Partial Pressure P9Wxorwhg 2024 11:52amOctclinton county hospital 2024 11:98hl211.0 mm[Hg]Above high oiwapm59.0-100.0Carbon Dioxide LevelNovsoutheastern [facility] 2024 6:24amNovember 2024 6:24am29.0 mmol/L21.0-32.0Mean Corpuscular HemoglobinNovsoutheastern [facility] 2024 6:24am July 23, 2025 6:24am29.8 pg25.9-34.0Carbon Dioxide LevelNovsoutheastern [facility] 2024 8:35pmNovsoutheastern [facility] 2024 8:35pm32.6 mmol/LAbove high actcvf60.0-32.0Mean Corpuscular HemoglobinNovsoutheastern [facility] 2024 8:35pmNovsoutheastern [facility] 2024 8:35pm29.7 pg25.9-34.0Potassium LevelNovsoutheastern [facility] 2024 5:17amNovember 2024 5:17am 4.6 mmol/L3.5-5.1Mean Corpuscular HemoglobinNovsoutheastern [facility] 2024 5:17amNovember 2024 5:17am29.4 pg25.9-34.0Potassium LevelNovsoutheastern [facility] 2024 6:05am August 14, 2025 6:05am3.6 mmol/L3.5-5.1Carbon Dioxide LevelDecember 2024 12:43pmDecember 2024 12:43pm32.7 mmol/LAbove high rtdfyu75.0-32.0Mean Corpuscular HemoglobinDecember 2024 12:43pmDecember 2024 12:43pm29.5 pg25.9-34.0CreatinineJohn [facility]. [facility] 20[facility] 8:56am0.95 mg/dL0.70-1.30Mean Corpuscular Hemoglobin ConcentJohn [facility]. [facility] 2024 8:56amOctober 2024 8:56am 32.0 g/dL29.9-35.2Blood Gas Sample SiteOct2024 11:52amOctclinton county hospital 2024 11:52amRRCreatinineMcdowell Arh Hospital 2024 6:24amNovember 2024 6:24am0.71 mg/dL0.70-1.30Mean Corpuscular Hemoglobin [facility] 2024 6:24am July 23, 2025 6:24am31.5 g/dL29.9-35.2CreatinineMcdowell Arh Hospital 2024 8:35pm August 10, 2025 8:35pm0.78 mg/dL0.70-1.30Mean Corpuscular Hemoglobin Concent August 10, 2025 8:35pmNovsoutheastern arizona behavioral health services 2024 8:35pm31.3 g/dL29.9-35.2Sodium LevelMcdowell Arh Hospital 2024 5:17amNovember 2024 5:45cy189 mmol/A143-445Ljwg Corpuscular Hemoglobin [facility]Fl[facility] 2024 5:17amNovember 2024 5:17am31.3 g/dL29.9-35.2Sodium LevelNovsoutheastern arizona [facility] health services 2024 6:05amNovember 2024 6:13lp221 mmol/F155-493GkozfpvkljDmklnpts 2024 12:43pmDecember 2024 12:43pm0.83 mg/dL0.70-1.30Mean Corpuscular Hemoglobin [facility]wal[facility]2024 12:43pmDecember 2024 12:43pm31.6 g/dL29.9-35.2Estimated GFR ()July 07, 2025 8:56am>60>=60 mL/min/1.73m 2Mean Corpuscular Volume July 07, 2025 8:56amOctober 2024 8:56am93.2 fL80.0-94.0Blood Gas Set Respiration RateOct2024 11:52amOctober 2024 11:91cz03Gceugeznm GFR ()July 23, 2025 6:24amNovember 2024 6:24am>60>=60 mL/min/1.73m 2Mean Corpuscular VolumeNov2024 6:24amNovember 2024 6:24am94.6 fLAbove high xlthiw75.0-94.0Estimated GFR ()August 10, 2025 8:35pmNovember 2024 8:35pm>60>=60 mL/min/1.73m 2Mean Corpuscular VolumeNovember 2024 8:35pmNovember 2024 8:35pm94.9 fL Above high bmmbeb11.0-94.0Mean Corpuscular VolumeNovember 2024 5:17am August 11, 2025 5:17am93.8 fL80.0-94.0Estimated GFR () August 22, 2025 12:43pmDecemb2024 12:43pm>60>=60 mL/min/1.73m 2Mean Corpuscular VolumeDecemb2024 12:43pmDecemb2024 12:43pm93.3 fL 80.0-94.0Estimated GFR (Non- AmericanOct2024 8:56am>60>=60 mL/min/1.73m 2Monocytes # (Auto)July 07, 2025 8:56amOct2024 8:56am0.9 10 3/uLAbove high normal0.3-0.8Blood Gas Tidal VolumeOct2024 11:52amOctober 2024 11:49la225Ganolnbrw GFR (Non- July 23, 2025 6:24amNovember 2024 6:24am>60>=60 mL/min/1.73m 2 Monocytes # (Auto)July 23, 2025 6:24amNovember 2024 6:24am0.9 10 3/uL Above high normal0.3-0.8Estimated GFR (Non- AmericanNov2024 8:35pmNovember 2024 8:35pm>60>=60 mL/min/1.73m 2Monocytes # (Auto)August 10, 2025 8:35pmNovember 2024 8:35pm1.2 10 3/uLAbove high normal0.3-0.8 Monocytes # (Auto)August 11, 2025 5:17amNovember 2024 5:17am0.1 10 3/uLBelow low normal0.3-0.8Estimated GFR (Non- AmericanDe2024 12:43pmDecember 2024 12:43pm>60>=60 mL/min/1.73m 2Monocytes # (Auto) August 22, 2025 12:43pmDecember 2024 12:43pm1.2 10 3/uLAbove high normal 0.3-0.8GlobulinOctober 2024 8:56am3.8 g/dLMonocytes (%) (Auto)July 07, 2025 8:56amOctober 2024 8:56am8.1 %1.7-12.0GlobulinJuly 23, 2025 6:24amNovember 2024 6:24am3.5 g/dLMonocytes (%) (Auto)July 23, 2025 6:24amNovember 2024 6:24am8.1 %1.7-12.0GlobulinNov2024 8:35pmNovember 2024 8:35pm3.3 g/dLMonocytes (%) (Auto)August 10, 2025 8:35pmNovember 2024 8:35pm9.3 %1.7-12.0Monocytes (%) (Auto)August 11, 2025 5:17amNovember 2024 5:17am1.5 %Below low normal1.7-12.0Globulin August 22, 2025 12:43pmDecember 2024 12:43pm3.1 g/dLMonocytes (%) (Auto) August 22, 2025 12:43pmDecember 2024 12:43pm9.6 %1.7-12.0Glucose Level July 07, 2025 8:00cl624 mg/dLAbove high -009Heeu Platelet Volume July 07, 2025 8:56amOctober 2024 8:56am9.3 fLBelow low normal9.5-13.5 Glucose LevelNov2024 6:24amNovember 2024 6:24am95 mg/lO90-645 Mean Platelet VolumeJuly 23, 2025 6:24amNovember 2024 6:24am9.2 fL Below low normal9.5-13.5Glucose LevelNovember 2024 8:35pmNovember 2024 8:89sr692 mg/dLAbove high nodmhf90-355Rvvu Platelet VolumeNovember 2024 8:35pmNovember 2024 8:35pm9.5 fL9.5-13.5Mean Platelet VolumeNovember 2024 5:17amNovember 2024 5:17am9.7 fL9.5-13.5Glucose LevelDecemb2024 12:43pmDecember 2024 12:43pm94 mg/kH56-896Vcpv Platelet Volume August 22, 2025 12:43pmDecember 2024 12:43pm9.3 fLBelow low normal 9.5-13.5Potassium LevelOctober 2024 8:56am4.4 mmol/L3.5-5.1Neutrophils # (Auto)July 07, 2025 8:56amOctober 2024 8:56am7.4 10 3/uLAbove high normal1.4-6.5Potassium LevelNov2024 6:24amNovember 2024 6:24am 4.0 mmol/L3.5-5.1Neutrophils # (Auto)July 23, 2025 6:24amNovember 2024 6:24am8.5 10 3/uLAbove high normal1.4-6.5Potassium LevelNovember 2024 8:35pmNovember 2024 8:35pm4.0 mmol/L3.5-5.1Neutrophils # (Auto)August 10, 2025 8:35pmNovember 2024 8:35pm10.1 10 3/uLAbove high normal1.4-6.5 Neutrophils # (Auto)August 11, 2025 5:17amNovember 2024 5:17am8.2 10 3/uLAbove high normal1.4-6.5Potassium LevelDecemb2024 12:43pmDecember 2024 12:43pm4.1 mmol/L3.5-5.1Neutrophils # (Auto)August 22, 2025 12:43pm August 22, 2025 12:43pm9.7 10 3/uLAbove high normal1.4-6.5Sodium LevelOctober 2024 8:80eg126 mmol/P487-848Ohunqozqyvy (%) (Auto)July 07, 2025 8:56amOctober 2024 8:56am69.5 %43.0-75.0Sodium LevelJuly 23, 2025 6:24amNovember 2024 6:88ol761 mmol/L974-310Dbvdhfzowlw (%) (Auto)July 23, 2025 6:24amNovember 2024 6:24am80.6 %Above high puberc38.0-75.0Sodium LevelNov2024 8:35pmNovember 2024 8:09iv978 mmol/M076-779 Neutrophils (%) (Auto)August 10, 2025 8:35pmNovember 2024 8:35pm79.8 % Above high uwbttt66.0-75.0Neutrophils (%) (Auto)August 11, 2025 5:17am August 11, 2025 5:17am93.2 %Above high .0-75.0Sodium LevelDecemb2024 12:43pmDecember 2024 12:37rx432 mmol/M132-057Ryybvwpjinm (%) (Auto)August 22, 2025 12:43pmDecember 2024 12:43pm77.6 %Above high lpwegd38.0-75.0Total BilirubinOctober 2024 8:56am0.8 mg/dL0.2-1.0Platelet CountOctober 2024 8:56amOctober 2024 8:09wy804 10 3/uE335-791Kisky BilirubinNovember 2024 6:24amNovember 2024 6:24am0.7 mg/dL0.2-1.0 Platelet CountNovember 2024 6:24amNovember 2024 6:97ww855 10 3/uL 150-450Total BilirubinNovember 2024 8:35pmNovember 2024 8:35pm0.6 mg/dL0.2-1.0Platelet CountNovember 2024 8:35pmNovember 2024 8:35pm 333 10 3/kB532-689Haifynrs CountNovember 2024 5:17amNovember 2024 5:63pl230 10 3/zS761-373Bxewi BilirubinDecember 2024 12:43pmDecember 2024 12:43pm0.8 mg/dL0.2-1.0Platelet CountDecember 2024 12:43pmDecember 2024 12:21iy498 10 3/nK965-721Hdoha ProteinOctober 2024 8:56am7.5 g/dL6.4-8.2Red Blood CountOctober 2024 8:56amOctober 2024 8:56am4.69 10 6/uLBelow low normal4.70-6.10Total ProteinNovember 2024 6:24amNovember 2024 6:24am6.8 g/dL6.4-8.2Red Blood CountNovember 2024 6:24amNovember 2024 6:24am4.06 10 6/uLBelow low normal4.70-6.10Total ProteinNovember 2024 8:35pmNovember 2024 8:35pm6.8 g/dL6.4-8.2Red Blood CountNovember 2024 8:35pmNovember 2024 8:35pm4.08 10 6/uLBelow low normal4.70-6.10 Red Blood CountNovember 2024 5:17amNovember 2024 5:17am3.85 10 6/uL Below low normal4.70-6.10Total ProteinDecember 2024 12:43pmDecember 2024 12:43pm6.6 g/dL6.4-8.2Red Blood CountDecemb2024 12:43pmDecember 2024 12:43pm4.21 10 6/uLBelow low normal4.70-6.10Red Cell Distribution WidthOctober 2024 8:56amOctober 2024 8:56am12.0 %11.0-15.0Red Cell Distribution WidthNov2024 6:24amNovember 2024 6:24am12.4 % 11.0-15.0Red Cell Distribution WidthNovember 2024 8:35pmNovember 2024 8:35pm12.8 %11.0-15.0Red Cell Distribution WidthNovember 2024 5:17am August 11, 2025 5:17am12.6 %11.0-15.0Red Cell Distribution WidthDecember 2024 12:43pmDecember 2024 12:43pm12.7 %11.0-15.0Corrected White Blood CountOctober 2024 8:56amOctober 2024 8:56am10.7 10 3/uL4.0-11.0 Corrected White Blood CountNovember 2025 6:24amNovember 2024 6:24am 10.6 10 3/uL4.0-11.0Corrected White Blood CountAugust 10, 2025 8:35pm August 10, 2025 8:35pm12.6 10 3/uLAbove high normal4.0-11.0Corrected White Blood CountAugust 11, 2025 5:17amNovember 2024 5:17am8.8 10 3/uL 4.0-11.0Corrected White Blood CountDece2024 12:43pmDece2024 12:43pm12.6 10 3/uLAbove high normal4.0-11.0 Vital Signs Vital Reading Result Reference Range Collection Date/Time Height 70 [in_i] August 16, 2025 2:15zvOckxmh49.25 kgAugust 16, 2025 2:22pmBody Yhafmdtxblv20.4 [degF]97.6-99.0August 16, 2025 2:22pmHeart Rate95 /nps94-002 August 16, 2025 2:22pmRespiratory rate22 /qzq99-08RlksvnfmAugust 16, 2025 2:22pm Oxygen saturation by Pulse eubgjyoc69 %95-100August 16, 2025 2:29pmBP Mudmdghs721 mm[Hg]100-140August 16, 2025 2:22pmBP Cmxpkgbdf77 mm[Hg]60-100 August 16, 2025 2:22pmBMI (Body Mass Index)30.1 kg/x9AlbsappdAugust 16, 2025 2:22pmInhaled oxygen flow rate3 L/minAugust 16, 2025 2:06hcDcdnbi89 [in_i] August 29, 2025 11:67pyXnxsov17.70 kgDece2024 11:30amBody Yojayvtsxsf18.1 [degF]97.6-99.0ce2024 11:30amHeart Bwvy008 /min 60-100ce2024 11:30amRespiratory rate24 /hjt22-20Owxqmlxv 8th, 2025 11:30amOxygen saturation by Pulse bmaoynmt30 %95-100ce2024 11:30amBP Mqvebyur183 mm[Hg]100-140August 29, 2025 11:30amBP Pzqqyyrfg31 mm[Hg]60-100 August 29, 2025 11:30amBMI (Body Mass Index)30.2 kg/n1YyxxatkoAugust 29, 2025 11:30amInhaled oxygen flow rate2 L/minD2024 11:30am Advance Directives Advance Directive Response Recorded Date/ Time Advance Directives No May 19, 2025 9:41am Insurance Providers Guarantor Sam Carrasco Address [address] [place] [address]Cbtdkmi Info.Home Phone: Payer Group Member ID Coverage Type Subscriber Relationship to Subscriber Effective Date Expiration Date Medicaid [id number] K Carrasco Id: [id number] [address] [place] [address] Home Phone: Sel[employer] [id number] K Carrasco Id: [id number] [address] [place] [address] Home Phone: [facility] [place] [id number] K Carrasco Id: [id number] [address] [place] [address] Home Phone: Self Encounters Encounter Location(s) Arrival/Admit Date Discharge/Departure Date Discharge/Departure Disposition Provider(s) Non-patient / Non-visit -[facility] O ctober 2024 10:03am Henok Palma-patient / Nmw-lxate-[facility] 7:24am([place]) Marta Ceja-patient / Uyj-bsxak-Ebxpi [facility] 2024 8:05pmMarta Parker-patient / Yin-hjgsq-Zjodn [facility] 2024 5:17aHenok Cheatham-patient / Siz-skgcg-Lknor [facility] 2024 6:05am Mio Watkins , MDDeparted Physician/Provider Office Visit-[facility] [place] 2024 2:18pmNovember 2024 3:06pmDischarged to home care or self care (routine discharge)Azul Quezada NP-CNon-patient / Non-visit- [facility] 2024 12:43pmMariajacqueline Urena , MDDeparted Physician/Provider Office Visit-[facility] 11:23amDecember 2024 12:06pmDischarged to home care or self care (routine discharge)Azul Quezada NP-C Recent Diagnosis Onset Date Admit Date Centrilobular emphysema Unknown August 16, 2025 2:18pm CVA (cerebral vascular accident) Unknown August 16, 2025 2:18pm Depression with anxiety Unknown August 16, 2025 2:18pm Essential hypertension Unknown August 16, 2025 2:18pm Mixed hyperlipidemia Unknown August 162024 2:18pm Vertebral artery occlusion Unknown Novem 2024 2:18pm Bilateral lower extremity edema Unknown August 29, 2025 11:23am Centrilobular emphysema Unknown August 29, 2025 11:23am CVA (cerebral vascular accident) Unknown August 29, 2025 11:23am Depression with anxiety Unknown August 29, 2025 11:23am Essential hypertension Unknown August 29, 2025 11:23am Mixed hyperlipidemia Unknown August 11:23am Vertebral artery occlusion Unknown Dece2024 11:23am Assessments Diagnosis Onset Date Resolution Status Admit Date Centrilobular emphysema acuteAugust 16, 2025 2:18pmCVA (cerebral vascular accident)acuteAugust 16, 2025 2:18pmDepression with anxietyacuteAugust 16, 2025 2:18pmEssential hypertensionacuteNov2024 2:18pmMixed hyperlipidemiaacuteAugust 16, 2025 2:18pmVertebral artery occlusionacuteNov2024 2:18pm Bilateral lower extremity edemaacuteDecember 2024 11:23amCentrilobular emphysemaacuteDece2024 11:23amCVA (cerebral vascular accident)acute August 29, 2025 11:23amDepression with anxietyacuteDecember 2024 11:23am Essential hypertensionacuteDeceer 2024 11:23amMixed hyperlipidemiaacute August 29, 2025 11:23amVertebral artery occlusionacuteDeceer 2024 11:23am Plan of Treatment Author Azul [facility] 2024 6:51amwas under the care of [facility] needs established with new pulm will work on this also needs to have updated PFT completed recent [facility] hospitalization for exacerbation last low dose CT chest 12/07/24 recent ER visit w swelling, given lasix Please check blood pressure daily and record DASH diet Limit caffeine Take medication as directed Contact office if chest pain, pressures, dizziness, shortness of breath, swelling in the legs Recommend slow position changes if you develop dizziness with position changes current meds: losartan stroke and was in [facility] started on brilinta and asa, recommended for 6 months (01/15?) on statin as well see neuro notes on trazodone, fluoxetine was discontinued, pt reports he is doing ok at this time on statin therapy check labs yearly and prn dose changes Author [facility] 20[facility] 4:32pmPlease check blood pressure daily and record DASH diet Limit caffeine Take medication as directed Contact office if chest pain, pressures, dizziness, shortness of breath, swelling in the legs Recommend slow position changes if you develop dizziness with position changes current meds: losartan stroke and was in [facility] started on brilinta and asa, recommended for 6 months (01/15?) on statin as well on trazodone, fluoxetine was discontinued, pt reports he is doing ok at this time see neuro notes was under the care of [facility] needs established with new pulm will work on this also needs to have updated PFT completed recent [facility] hospitalization for exacerbation last low dose CT chest 12/07/24 on statin therapy check labs yearly and prn dose changes Future Tests Future scheduled test information is unavailable Pending Tests Pending diagnostic test information is unavailable Future Visits Future appointment information is unavailable Future Procedures Procedure Name Ordered Date Scheduled Date Basic Metabolic Panel August 23, 2025 7:03am Complete Pulmonary FunctionNovember 2024 4:30pm Future Medications Future medication information is unavailable Patient Instructions Patient instructions are unavailable
--- OUTSIDE RECORDS SUMMARY | 2025-09-02 14:45 | XMS_ITS | CCD ---
Author Organization [facility] Care Team Providers Care Deputy Sheriff Generalist Name Role Phone SAMSA, JAMESON Admitting Unavailable SAMSA, JAMESON Attending Unavailable AICHHOLZ, LOOSE HAND PACKER AZUL Referring Unavailable AICHHOLZ, LOOSE HAND PACKER AZUL Primary Care Unavailable SAMSA, JAMESON Consulting Unavailable AICHHOLZ, LOOSE HAND PACKER AZUL Admitting Unavailable AICHHOLZ, LOOSE HAND PACKER AZUL Attending Unavailable AICHHOLZ, LOOSE HAND PACKER AZUL Primary Care Unavailable AICHHOLZ, LOOSE HAND PACKER AZUL Consulting Unavailable SAMSA, JAMESON Admitting Unavailable SAMSA, JAMESON Attending Unavailable AICHHOLZ, LOOSE HAND PACKER AZUL Primary Care Unavailable WHITNEY, DR YARIEL Figueroa Consulting Unavailable SAMSA, JAMESON Consulting Unavailable AICHHOLZ, LOOSE HAND PACKER AZUL Primary Care Unavailable DAREN, DR MAURO Admitting Unavailable DAREN, DR MAURO Attending Unavailable WHITNEY, DR YARIEL Figueroa Consulting Unavailable DAREN, DR MAURO Consulting Unavailable Kiko Zurita MD Primary Care Provider Aichholz CANAL EQUIPMENT MECHANIC, Azul Unavailable Kiko Zurita MD Primary Care Provider Aichholz CANAL EQUIPMENT MECHANIC, Azul Unavailable Aichholz MACHINE BUFFER-LOOSE HAND PACKER, Azul J Primary Care Provider Aichholz CANAL EQUIPMENT MECHANIC, Azul Unavailable AICHHOLZ, AZUL Attending Unavailable AICHHOLZ, [...] Unavailable 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 Primary Care Unavailable Damien CANAL EQUIPMENT MECHANIC, Azul Unavailable Kiko Zurita MD Primary Care Provider Damien CANAL EQUIPMENT MECHANIC, Azul Unavailable Allergies Allergy ClassificationReported Allergen(s)Allergy TypeDate of OnsetReaction(s) Facility (20 sources)Honey bee venomAllergy to eugbhhzrf15-67-5675LsmtmlnVK[facility] (3 sources)Bee Venom Protein (Honey Bee); Translations: [BEE VENOM PROTEIN (HONEY BEE)]Propensity to adverse reactions to bjop40-82-0330[facility] Medications Current Medications MedicationDrug Class(es)DatesSig [...] oral tablet (3 sources)Penicillin-class AntibacterialStart: 11-16-2024 End: 34-71-1930macy 1 tablet by mouth in the morningamoxicillin-clavulanate (Augmentin) 875-125 MG tablet Indications: COPD with acute exacerbation (CMS /HCC) Take 1 tablet (875 mg) by mouth in the morning and 1 tablet (875 mg) before bedtime. Do all this for 10 days. 20 tablet 11/16/2024 11/26/2024 Active aspirin 81 mg chewable tablet (20 sources)Platelet Aggregation Inhibitor, Nonsteroidal Anti-inflammatory Drug Start: 57-79-3521fvujmua 81 mg chewable tablet Chew 1 tablet (81 mg total) and swallow daily. 30 tablet 5 06/14/2020Activetake 1 tablet by mouth in the morning aspirin 81 MG EC tablet Take 81 mg by mouth in the morning. Activeatorvastatin 40 mg oral tablet (20 sources)HMG-CoA Reductase InhibitorStart: 03-15-2024 End: 06-28-1551rxqk 1 tablet by mouth in the eveningatorvastatin (Lipitor) 40 MG tablet Indications: Mixed hyperlipidemia Take 1 tablet (40 mg) by mouth in the evening 90 tablet 1 12/27/2024 ActiveStart: 40-62-2742iqrk 1 tablet by mouth once dailyatorvastatin (LIPITOR) 40 mg tablet Take 1 tablet (40 mg total) by mouth nightly. 30 tablet 2 06/13/2020 Activebisacodyl 5 mg delayed release oral tablet (3 sources)Stimulant LaxativeStart: 05-31-2024 End: 14-14-0377qqxo 1 tablet by mouth oncebisacodyl (Dulcolax) 5 MG EC tablet Indications: Screening for malignant neoplasm of colon Take 1 tablet (5 mg) by mouth 1 time for 1 dose Do not crush, chew, or split. Take as detailed on clinic hand out for colonoscopy prep 1 tablet 05/31/2024 05/31/2024 Avlzup70 actuat budesonide 0.16 mg/actuat / formoterol fumarate 0.0045 mg/actuat metered dose inhaler (20 sources)Corticosteroid, beta2-Adrenergic Agonisttake 2 puff(s) by inhalation in the morningbudesonide-formoterol (Symbicort) 160-4.5 MCG/ACT inhaler Inhale 2 puffs in the morning and 2 puffsbefore bedtime. Rinse mouth with water after use to reduce aftertaste and incidence of candidiasis.Do not swallow.. Active Ensifentrine (Ohtuvayre) 3 MG/2.5ML suspension (11 sources)Start: 69-92-9470Umafmyjdoqmo (Ohtuvayre) 3 MG/2.5ML suspension every 12 (twelve) hours 08/17/2024 Bbiahjpjd349779 0.3 ml EPINEPHrine 1 mg/ml auto-injector (20 sources)alpha-Adrenergic Agonist, beta-Adrenergic Agonist, Catecholamine Start: 51-43-5303OPNIVOWhcho (Epipen) 0.3 MG/0.3ML injection syringe Inject 1 Syringe as directed 1 (one) time 05/30/2024 Activefamotidine 20 mg oral tablet (3 sources)Histamine-2 Receptor AntagonistStart: 05-30-2024 End: 59-35-6080szwg 1 tablet by mouth in the morningfamotidine (Pepcid) 20 MG tablet Take 20 mg by mouth in the morning and 20 mg before bedtime. 05/30/2024 08/16/2024 Discontinued (Therapy completed)FLUoxetine 20 mg oral capsule (20 sources)Serotonin Reuptake InhibitorStart: 02-02-2024 End: 00-72-8976uqfi 1 capsule by mouth once dailyFLUoxetine (PROzac) 20 MG capsule Indications: Depression with anxiety Take 1 capsule (20 mg) by mouth Daily 90 capsule 1 02/15/2025 Activetake 1 capsule by mouth once dailyFLUoxetine (PROzac) 10 mg capsule Take 10 mg by mouth daily. ActivehydrOXYzine hydrochloride 25 mg oral tablet (11 sources)AntihistamineStart: 12-15-2023 End: 41-87-9826imqs 1-2 tablets by mouth every eight hours for anxiety hydrOXYzine HCl (Atarax) 25 MG tablet Indications: Depression with anxiety Take 1-2 tablets (25-50 mg) by mouth every 8 (eight) hours if needed for anxiety for up to 10 days 60 tablet 12/15/2023 08/16/2024 Discontinued (Therapy completed) ipratropium bromide 0.2 mg/ml inhalation solution (11 sources)AnticholinergicStart: 26-52-8015engymcgqzrs (Atrovent) 0.02 % nebulizer solution 2.5 mL inhaled via nebulizer every 8 hours As Needed for shortness of breath or wheezing 09/27/2024 Activelosartan potassium 25 mg oral tablet (3 sources)Angiotensin 2 Receptor BlockerStart: 28-86-3405lmfn 1 tablet by mouth once dailylosartan (Cozaar) 25 MG tablet Take 25 mg by mouth Daily 05/11/2025 Activepolyethylene glycol 3350 49398 mg powder for oral solution (3 sources)Osmotic LaxativeStart: 05-31-2024 End: 37-91-8674prut 17 g by mouth oncepolyethylene glycol, PEG, 3350 (Glycolax) 17 GM/SCOOP powder Indications: Colonoscopy Take 238 g bymouth 1 (one) time for 1 dose Take as detailed from clinic hand out for colonoscopy prep 238 g 05/3105/31/2024 ActivepredniSONE 10 mg oral tablet (15 sources)Start: 73-11-0622dgey 1 tablet by mouth three times daily, then take 1 tablet by mouth twice daily, then take 1 tablet by mouth once dailypredniSONE (Deltasone) 10 MG tablet TAKE 1 TABLET BY MOUTH THREE TIMES DAILY FOR 4 DAYS, then TAKE 1 TABLET BY MOUTH TWICE DAILY FOR 4 DAYS, then TAKE 1 TABLET BY MOUTH DAILY FOR 4 DAYS 05/11/2025 ActiveStart: 11-16-2024 End: 48-11-1974crwq 1 tablet by mouth in the morningpredniSONE (Deltasone) 20 MG tablet Indications: COPD with acute exacerbation (CMS/HCC) Take 1 tablet (20 mg) by mouth in the morning and 1 tablet (20 mg) in the evening. Take with meals. Do all thisfor 5 days. Take with food. 10 tablet 11/16/2024 11/21/2024 ActiveStart: 05-30-2024 End: 72-54-3524riex 1 tablet by mouth in the morningpredniSONE [...] tablet (20 sources)Serotonin Reuptake InhibitorStart: 12-16-2023 End: 29-55-2815udgy 1 tablet by mouth at bedtimetraZODone (Desyrel) [...] (20 sources)Cerebrovascular accident; Translations: [Cerebral infarction, unspecified]Onset: 854139-07-7571RacubhcKtxpump disorders (20 sources)Other specified anxiety disorders; Translations: [Mixed anxiety and depressive disorder]Onset: 006066-03-6332OuujtnrJcocxqk obstructive pulmonary disease and bronchiectasis (20 sources)Emphysema, unspecified; Translations: [Centrilobular emphysema] Onset: 93-05-0337RoydlboBclsloud mellitus without complication (6 sources)Increased glucose level; Translations: [Other abnormal glucose]Onset: 386402-52-5125FgwqekgsUquuoqlnu of lipid metabolism (20 sources)Mixed hyperlipidemia; Translations: [Mixed hyperlipidemia]Onset: 801269-72-8106GwteikqQnynwlrzf usually diagnosed in infancy, childhood, or adolescence (20 sources)Wilian de la Tourette's syndrome; Translations: [Tourette's disorder]Onset: 180762-55-8060FudzdrcWvansawaoroat mental health disorders (2 sources)Primary insomnia; Translations: [Primary insomnia]98-81-1232Lgemorl Occlusion or stenosis of precerebral arteries (20 sources)Occlusion and stenosis of bilateral carotid arteries; Translations: [Internal carotid artery stenosis]Onset: 68-01-3783IntfqmbDdeqdybwxoskke (20 sources)Osteoarthritis; Translations: [Unspecified osteoarthritis, unspecified site]Onset: 587293-61-5194ZxpqyzpNgxzr diseases of veins and lymphatics (20 sources)Calcified lymph nodes; Translations: [Other specified noninfective disorders of lymphatic vessels and lymph nodes]Onset: ChronicOther lower respiratory disease (4 sources)Shortness of breath; Translations: [SHORTNESS OF BREATH]Onset: 53-46-2770IlmqwwrhDzqkh non-traumatic joint disorders (5 sources)Hip pain; Translations: [Pain in right hip]Onset: 05-17-2025 08-38-0048GuqfvhzbFnblq upper respiratory disease (20 sources)Allergic rhinitis; Translations: [Allergic rhinitis, unspecified] Onset: 046074-75-1510EslnbfkDbfqnsun codes; unclassified (1 source)Pain, unspecified; Translations: [Pain, unspecified]Onset: 07-07-2025 EpisodicSpondylosis; intervertebral disc disorders; other back problems (20 sources)Degeneration of cervical intervertebral disc; Translations: [Other cervical disc degeneration, unspecified cervical region]Onset: 10-30-2023 58-48-3850AdjfrheXkbwowuqz-related disorders (20 sources)Cannabis abuse; Translations: [Cannabis abuse, uncomplicated]Onset: 07-20-2020 Resolved: 504570-82-1978DtreocfIxoksdgjhdrw (1 source)CONTACT W/AND (SUSP) EXPOS COVID-19; Translations: [CONTACT W/AND (SUSP) EXPOS COVID-19]Onset: 22-93-9637Fdfflphapyiy (1 source)EOSINOPHILIA UNSPECIFIED; Translations: [EOSINOPHILIA UNSPECIFIED] Onset: 04-20-2022 Past or Other Problems Problem ClassificationProblemDateDocumented DateEpisodic/ChronicImmunizations and screening for infectious disease (18 sources)Needs influenza immunization; Translations: [Encounter for immunization]Onset: 868021-58-0844OwkzvinjHhdzswwca (20 sources)Influenza; Translations: [Influenza due to unidentified influenza virus with other respiratory manifestations]Onset: 10-30-2023 Resolved: 471613-15-3517EpezwovbAggz disorders (11 sources)Mood disordersOnset: 02-07-2022 Resolved: ther aftercare (12 sources)Long-term current use of inhaled steroid; 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: [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]Onset: 864605-45-6864MikztiwaOdvvm and unspecified benign neoplasm (20 sources)Polyp of colon; Translations: [Polyp of colon]Onset: 05-19-2024 Resolved: 390607-26-2221YrohnnagIncja connective tissue disease (20 sources)Pain in right hand; Translations: [Pain in right hand]Onset: 556084-54-8691HybyvbhjNystr lower respiratory disease (20 sources)Multiple nodules of lung; Translations: [Other nonspecific abnormal finding of lung field]Onset: 640298-30-8933FewmvcjgTlnhb nutritional; endocrine; and metabolic disorders (20 sources)Overweight in adulthood with body mass index of 25 or more but less than 30; Translations: [Body mass index (BMI) 26.0-26.9, adult]Onset: 10-30-2023 93-56-8714WwtlqvrcGtxlf nutritional; endocrine; and metabolic disorders (20 sources)Body mass index 25-29 - overweight; Translations: [Overweight]Onset: 804513-97-2826WdjfipleVuyvz screening for suspected conditions (not mental disorders or infectious disease) (20 sources)Encounter for screening for malignant neoplasm of respiratory organs; Translations: [Encounter for screening for malignant neoplasm of prostate]Onset: 76-56-0837YnvzxusiRxzjo skin disorders (20 sources)Papule of skin; Translations: [Other skin changes]Onset: 11-13-2023 Resolved: 287801-84-3533IjmlnslnQlisr upper respiratory disease (20 sources)Polyp of vocal cord ; 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] Onset: 179911-55-3627DdlrrcuhGcejzvdd codes; unclassified (20 sources)Insomnia; Translations: [Insomnia, unspecified]Onset: 10-30-2023 84-83-4299XxljxjboXxxfmftkd and history of mental health and substance abuse codes (20 sources)Personal history of nicotine dependence; Translations: [Ex-smoker] Onset: 397593-59-5131ZpzvqxupLntcn infection (20 sources)Disease caused by 2019-nCoV; Translations: [COVID-19]Onset: 082154-67-5457Glumtlbv Results Test NameValueInterpretationReference RangeFacilityCOMPREHENSIVE METABOLIC PANEL on 02-40-5170Ktcqypi [Mass/Vol]3.4 g/dLNormal3.2-5.3PSumma Health Comment on above:Performed By: #### BEDG #### [facility] ([facility]) [address] [place] [address] VIRALP [Catalytic activity/Vol]53 U/SKvqikr00-495GpyZjvfzf [place] HospitalComment on above:Performed By: #### BEDG #### [facility] ([facility]) [address] [place] [address] VIRALT [Catalytic activity/Vol]10 U/LNormal<=40ProShelby Memorial HospitalComment on above:Performed By: #### BEDG #### [facility] ([facility]) [address] [place] [address] VIRAnion gap [Moles/Vol]8 mmol/LNormal5-15ProAdams County Regional Medical Centerca [place] HospitalComment on above:Performed By: #### BEDG #### [facility] ([facility]) [address] [place] [address] VIRAST [Catalytic activity/Vol]16 U/LNormal<=41ProAdams County Regional Medical Centerca [place] HospitalComment on above:Performed By: #### BEDG #### [facility] ([facility]) [address] [place] [address] VIRBilirubin [Mass/Vol]0.9 mg/dLNormal0.3-1.2PEast [facility] HospitalComment on above:Performed By: #### BEDG #### [facility] ([facility]) [address] [place] [address] VIRCalcium [Mass/Vol]8.6 mg/dLNormal8.5-10.5PEast [facility] HospitalComment on above:Performed By: #### BEDG #### [facility] ([facility]) [address] [place] [address] VIRChloride [Moles/Vol]100 mmol/XOvmxbz58-559CjrHxvabb [place] HospitalComment on above:Performed By: #### BEDG #### [facility] ([facility]) [address] [place] [address] VIRCO2 [Moles/Vol]29 mmol/LNjxbbg97-21NyqIledmt [facility] Comment on above:Performed By: #### BEDG #### [facility] ([facility]) [address] [place] [address] VIRCreatinine [Mass/Vol]0.75 mg/dLNormal0.60-1.30ProOhiohealth Southeastern Medical Center HospitalComment on above:Result Comment: METHOD TRACEABLE TO IDMS STANDARDPerformed By: #### BEDG #### [facility] ([facility]) [address] [place] [address] VIREGFR (CKD-EPI) NON-RACE DEPENDENT>^90Normal>=60ProOhiohealth Southeastern Medical Center HospitalComment on above:Result Comment: Reported eGFR is based on the CKD-EPI 2020 equation that does not use a race coefficient.Performed By: #### BEDG #### [facility] ([facility]) [address] [place] [address] VIRGlucose [Mass/Vol]94 mg/oSAwrwho82-19MqsBsheep [place] HospitalComment on above:Performed By: #### BEDG #### [facility] ([facility]) [address] [place] [address] VIRPotassium [Moles/Vol]4.0 mmol/LNormal3.5-5.0ProOhiohealth Southeastern Medical Center HospitalComment on above:Performed By: #### BEDG #### [facility] ([facility]) [address] [place] [address] VIRProtein [Mass/Vol]5.6 g/dLLow6.0-8.0ProOhiohealth Southeastern Medical Center HospitalComment on above:Performed By: #### BEDG #### [facility] ([facility]) [address] [place] [address] VIRSodium [Moles/Vol]137 mmol/VEfougp242-489WczLzgcyj [place] HospitalComment on above:Performed By: #### BEDG #### [facility] ([facility]) [address] [place] [address] VIRUrea nitrogen [Mass/Vol]14 mg/dLNormal5-27ProOhiohealth Southeastern Medical Center HospitalComment on above:Performed By: #### BEDG #### [facility] ([facility]) [address] [place] [address] VIRCOMPREHENSIVE METABOLIC PANELon 83-57-1254Clldmmi [Mass/Vol] 3.4 g/dLNormal3.2-5.3ProMedica [place] HospitalComment on above:Performed By: #### BEDG #### [facility] ([facility]) [address] [place] [address] VIRALP [Catalytic activity/Vol]52 U/TOtleol25-314IpgHkcdik [place] HospitalComment on above:Performed By: #### BEDG #### [facility] ([facility]) [address] [place] [address] VIRALT [Catalytic activity/Vol]10 U/LNormal<=40ProAdams County Regional Medical Centerca [place] HospitalComment on above:Performed By: #### BEDG #### [facility] ([facility]) [address] [place] [address] VIRAnion gap [Moles/Vol]7 mmol/LNormal5-15ProAdams County Regional Medical Centerca [place] HospitalComment on above:Performed By: #### BEDG #### [facility] ([facility]) [address] [place] [address] VIRAST [Catalytic activity/Vol]17 U/LNormal<=41ProAdams County Regional Medical Centerca [place] HospitalComment on above:Performed By: #### BEDG #### [facility] ([facility]) [address] [place] [address] VIRBilirubin [Mass/Vol]1.0 mg/dLNormal0.3-1.2PEast [facility] HospitalComment on above:Performed By: #### BEDG #### [facility] ([facility]) [address] [place] [address] VIRCalcium [Mass/Vol]8.6 mg/dLNormal8.5-10.5PEast [facility] HospitalComment on above:Performed By: #### BEDG #### [facility] ([facility]) [address] [facility] [address] VIRChloride [Moles/Vol]99 mmol/NBdnyuz77-016IneXxdeev [place] HospitalComment on above:Performed By: #### BEDG #### [facility] ([facility]) [address] [facility] [address] VIRCO2 [Moles/Vol]31 mmol/TAhxsae72-30AyhAfxhqc [facility] Comment on above:Performed By: #### BEDG #### [facility] ([facility]) [address] [place] [address] VIRCreatinine [Mass/Vol]0.79 mg/dLNormal0.60-1.30ProOhiohealth Sout[facility] Center HospitalComment on above:Result Comment: METHOD TRACEABLE TO IDMS STANDARDPerformed By: #### BEDG #### [facility] ([facility]) [address] [place] [address] VIREGFR (CKD-EPI) NON-RACE DEPENDENT>^90Normal>=60ProOhiohealth [facility] HospitalComment on above:Result Comment: Reported eGFR is based on the CKD-EPI 2020 equation that does not use a race coefficient.Performed By: #### BEDG #### [facility] ([facility]) [address] [place] [address] VIRGlucose [Mass/Vol]91 mg/hTBfoljb54-31TarLndqyl [place] HospitalComment on above:Performed By: #### BEDG #### [facility] ([facility]) [address] [place] [address] VIRPotassium [Moles/Vol]4.2 mmol/LNormal3.5-5.0ProOhiohealth [facility] HospitalComment on above:Performed By: #### BEDG #### [facility] ([facility]) [address] [place] [address] VIRProtein [Mass/Vol]5.7 g/dLLow6.0-8.0ProOhiohealth [facility] HospitalComment on above:Performed By: #### BEDG #### [facility] ([facility]) [address] [place] [address] VIRSodium [Moles/Vol]137 mmol/ILkfahs050-067DelAjqiwm [place] HospitalComment on above:Performed By: #### BEDG #### [facility] ([facility]) [address] [place] [address] VIRUrea nitrogen [Mass/Vol]13 mg/dLNormal5-27ProOhio[facility] HospitalComment on above:Performed By: #### BEDG #### [facility] ([facility]) [address] [place] [address] VIRCBC WITH AUTO DIFFERENTIALon 19-33-9112JHTMHXGGW ABSOLUTE COUNT (10*3/UL) BY AUTOMATED COUNT0.1 10*3/uLNormal0.0-0.2Pro[facility] Medical CenterComment on above:Performed By: #### BEDG #### [facility] ([facility]) [address] [place] [address] VIRBASOPHILS RELATIVE PERCENT BY AUTOMATED COUNT0.5 %Normal [facility] HospitalComment on above:Performed By: #### BEDG #### [facility] ([facility]) [address] [place] [address] VIRCELLAVISION DIFFERENTIAL TYPEAUTOMATED DIFFERENTIALNormal [facility] HospitalComment on above:Performed By: #### BEDG #### [facility] ([facility]) [address] [place] [address] VIREosinophils (Bld) [#/Vol]0.3 10*3/uLNormal0.0-0.4[facility] HospitalComment on above:Performed By: #### BEDG #### [facility] ([facility]) [address] [place] [address] VIREOSINOPHILS RELATIVE PERCENT BY AUTOMATED COUNT3.0 %Normal [facility] HospitalComment on above:Performed By: #### BEDG #### [facility] ([facility]) [address] [place] [address] VIRErythrocyte distribution width (RBC) [Ratio]12.9 %Normal 11.5-15ProShelby Memorial HospitalComment on above:Performed By: #### BEDG #### [facility] ([facility]) [address] [place] [address] VIRHematocrit (Bld) [Volume fraction]37.9 %Hur28-25WvaSszinc [place] HospitalComment on above:Performed By: #### BEDG #### [facility] ([facility]) [address] [place] [address] VIRHemoglobin (Bld) [Mass/Vol]12.6 g/eZKcy51-24LcuCyyhpy [place] HospitalComment on above:Performed By: #### BEDG #### [facility] ([facility]) [address] [place] [address] VIRLYMPHOCYTES ABSOLUTE COUNT (10*3/UL) BY AUTOMATED COUNT1.0 10*3/uLNormal1.0-3.5[facility] [place] HospitalComment on above:Performed By: #### BEDG #### [facility] ([facility]) [address] [place] [address] VIRLYMPHOCYTES RELATIVE PERCENT BY AUTOMATED COUNT10.4 %Normal [facility] [place] HospitalComment on above:Performed By: #### BEDG #### [facility] ([facility]) [address] [place] [address] VIRMCH (RBC) [Entitic mass]29.4 ftGhhqmq88-29GddDfwvax [place] HospitalComment on above:Performed By: #### BEDG #### [facility] ([facility]) [address] [place] [address] VIRMCHC (RBC) [Mass/Vol]33.3 g/vBLsstzv75-40NfoIehjqu [place] HospitalComment on above:Performed By: #### BEDG #### [facility] ([facility]) [address] [place] [address] VIRMCV (RBC) [Entitic vol]88 aYDnedtd52-143RiuRwegiy [place] HospitalComment on above:Performed By: #### BEDG #### [facility] ([facility]) [address] [place] [address] VIRMONOCYTES ABSOLUTE COUNT (10*3/UL) BY AUTOMATED COUNT1.1 10*3/uLHigh0.0-0.9ProOhio[facility] HospitalComment on above:Performed By: #### BEDG #### [facility] ([facility]) [address] [facility] [place] [address] VIRMONOCYTES RELATIVE PERCENT BY AUTOMATED COUNT10.7 %Normal [facility] HospitalComment on above:Performed By: #### BEDG #### [facility] ([facility]) [address] [facility] [place] [address] VIRNEUTROPHILS ABSOLUTE COUNT BY AUTOMATED COUNT7.5 10*3/uLHigh 1.5-6.6ProOhio[facility] HospitalComment on above:Performed By: #### BEDG #### [facility] ([facility]) [address] [facility] [place] [address] VIRNEUTROPHILS RELATIVE PERCENT BY AUTOMATED COUNT75.4 %Normal [facility] HospitalComment on above:Performed By: #### BEDG #### [facility] ([facility]) [address] [facility] [place] [address] VIRPlatelet mean volume (Bld) [Entitic vol]7.4 fLNormal7-12 [facility] HospitalComment on above:Performed By: #### BEDG #### [facility] ([facility]) [address] [facility] [place] [address] VIRPlatelets (Bld) [#/Vol]283 10*3/cXYrmzzl910-713PzjHpttut [place] HospitalComment on above:Performed By: #### BEDG #### [facility] ([facility]) [address] [facility] [place] [address] VIRRBC COUNT4.30 X10E12/LNormal4.1-5.7[facility] Comment on above:Performed By: #### BEDG #### [facility] ([facility]) [address] [facility] [place] [address] VIRWBC (Bld) [#/Vol]10.0 10*3/uLNormal4-11ProAd[facility] Medical Centerca [place] HospitalComment on above:Performed By: #### BEDG #### [facility] ([facility]) [address] [facility] [place] [address] VIRCOMPREHENSIVE METABOLIC PANELon 26-79-4165Yiqrktt [Mass/Vol] 3.5 g/dLNormal3.2-5.3ProMedKettering Health [facility] HospitalComment on above:Performed By: #### BEDG #### [facility] ([facility]) [address] [facility] [place] [address] VIRALP [Catalytic activity/Vol]56 U/ZLnqgjv36-135YpqVzntpz [place] HospitalComment on above:Performed By: #### BEDG #### [facility] ([facility]) [address] [place] [address] VIRALT [Catalytic activity/Vol]11 U/LNormal<=40ProOhio[facility] HospitalComment on above:Performed By: #### BEDG #### [facility] ([facility]) [address] [facility] [place] [address] VIRAnion gap [Moles/Vol]8 mmol/LNormal5-15ProOhio[facility] HospitalComment on above:Performed By: #### BEDG #### [facility] ([facility]) [address] [facility] [place] [address] VIRAST [Catalytic activity/Vol]18 U/LNormal<=41ProAd[facility] Centerca [place] HospitalComment on above:Performed By: #### BEDG #### [facility] ([facility]) [address] [facility] [place] [address] VIRBilirubin [Mass/Vol]1.1 mg/dLNormal0.3-1.2ProMedKettering Health [facility] HospitalComment on above:Performed By: #### BEDG #### [facility] ([facility]) [address] [facility] [place] [address] VIRCalcium [Mass/Vol]8.9 mg/dLNormal8.5-10.5ProMedica Adkins HospitalComment on above:Performed By: #### BEDG #### [facility] ([facility]) [address] [place] [address] VIRChloride [Moles/Vol]99 mmol/QJmzpsp03-004LivShnnph [place] HospitalComment on above:Performed By: #### BEDG #### [facility] ([facility]) [address] [place] [address] VIRCO2 [Moles/Vol]29 mmol/NLhboxp65-52BwqYroygl [place] [facility] Comment on above:Performed By: #### BEDG #### [facility] ([facility]) [address] [place] [address] VIRCreatinine [Mass/Vol]0.78 mg/dLNormal0.60-1.30ProShelby Memorial HospitalComment on above:Result Comment: METHOD TRACEABLE TO IDMS STANDARDPerformed By: #### BEDG #### [facility] ([facility]) [address] [place] [address] VIREGFR (CKD-EPI) NON-RACE DEPENDENT>^90Normal>=60ProShelby Memorial HospitalComment on above:Result Comment: Reported eGFR is based on the CKD-EPI 2020 equation that does not use a race coefficient.Performed By: #### BEDG #### [facility] ([facility]) [address] [place] [address] VIRGlucose [Mass/Vol]93 mg/sYOjsiyf62-05ObbLpkbbh [place] HospitalComment on above:Performed By: #### BEDG #### [facility] ([facility]) [address] [place] [address] VIRPotassium [Moles/Vol]4.3 mmol/LNormal3.5-5.0ProOhiohealth [facility] Center HospitalComment on above:Performed By: #### BEDG #### [facility] ([facility]) [address] [place] [address] VIRProtein [Mass/Vol]6.0 g/dLNormal6.0-8.0ProOhiohealth [facility] Medical Center HospitalComment on above:Performed By: #### BEDG #### [facility] ([facility]) [address] [place] [address] VIRSodium [Moles/Vol]136 mmol/EOcukio242-707LxeCweidy [place] HospitalComment on above:Performed By: #### BEDG #### [facility] ([facility]) [address] [place] [address] VIRUrea nitrogen [Mass/Vol]17 mg/dLNormal5-27ProOhio[facility] HospitalComment on above:Performed By: #### BEDG #### [facility] ([facility]) [address] [place] [address] VIRCBC WITH AUTO DIFFERENTIALon [id number] ABSOLUTE COUNT (10*3/UL) BY AUTOMATED COUNT0.1 10*3/uLNormal0.0-0.2PSumma HealthComment on above:Performed By: #### BEDG #### [facility] ([facility]) [address] [place] [address] VIRBASOPHILS RELATIVE PERCENT BY AUTOMATED COUNT0.7 %Normal [facility] HospitalComment on above:Performed By: #### BEDG #### [facility] ([facility]) [address] [place] [address] VIRCELLAVISION DIFFERENTIAL TYPEAUTOMATED DIFFERENTIALNormal [facility] HospitalComment on above:Performed By: #### BEDG #### [facility] ([facility]) [address] [place] [address] VIREosinophils (Bld) [#/Vol]0.2 10*3/uLNormal0.0-0.4ProOhiohealth [facility] Medical Center HospitalComment on above:Performed By: #### BEDG #### [facility] ([facility]) [address] [place] [address] VIREOSINOPHILS RELATIVE PERCENT BY AUTOMATED COUNT2.1 %Normal [facility] HospitalComment on above:Performed By: #### BEDG #### [facility] ([facility]) [address] [place] [address] VIRErythrocyte distribution width (RBC) [Ratio]13.0 %Normal 11.5-15ProAd[facility] Centerca [place] HospitalComment on above:Performed By: #### BEDG #### [facility] ([facility]) [address] [place] [address] VIRHematocrit (Bld) [Volume fraction]38.2 %Wnn03-36DqwCmzjkx [place] HospitalComment on above:Performed By: #### BEDG #### [facility] ([facility]) [address] [place] [address] VIRHemoglobin (Bld) [Mass/Vol]12.9 g/oOQyl46-67KpvIroywl [place] HospitalComment on above:Performed By: #### BEDG #### [facility] ([facility]) [address] [place] [address] VIRLYMPHOCYTES ABSOLUTE COUNT (10*3/UL) BY AUTOMATED COUNT1.3 10*3/uLNormal1.0-3.5Pro[facility] Medical CenterComment on above:Performed By: #### BEDG #### [facility] ([facility]) [address] [place] [address] VIRLYMPHOCYTES RELATIVE PERCENT BY AUTOMATED COUNT11.8 %Normal ProM[facility] centera [place] HospitalComment on above:Performed By: #### BEDG #### [facility] ([facility]) [address] [place] [address] VIRMCH (RBC) [Entitic mass]29.7 bpSsxsoa50-20KvtIqbluz [place] HospitalComment on above:Performed By: #### BEDG #### [facility] ([facility]) [address] [place] [address] VIRMCHC (RBC) [Mass/Vol]33.8 g/qDCgefzf85-66BuqZwsjha [place] HospitalComment on above:Performed By: #### BEDG #### [facility] ([facility]) [address] [place] [address] VIRMCV (RBC) [Entitic vol]88 jVUzqrcl93-242KwmDqsmwx [place] HospitalComment on above:Performed By: #### BEDG #### [facility] ([facility]) [address] [place] [address] VIRMONOCYTES ABSOLUTE COUNT (10*3/UL) BY AUTOMATED COUNT1.1 10*3/uLHigh0.0-0.9[facility] HospitalComment on above:Performed By: #### BEDG #### [facility] ([facility]) [address] [place] [address] VIRMONOCYTES RELATIVE PERCENT BY AUTOMATED COUNT10.8 %Normal [facility] HospitalComment on above:Performed By: #### BEDG #### [facility] ([facility]) [address] [place] [address] VIRNEUTROPHILS ABSOLUTE COUNT BY AUTOMATED COUNT7.9 10*3/uLHigh 1.5-6.6[facility] HospitalComment on above:Performed By: #### BEDG #### [facility] ([facility]) [address] [place] [address] VIRNEUTROPHILS RELATIVE PERCENT BY AUTOMATED COUNT74.6 %Normal [facility] HospitalComment on above:Performed By: #### BEDG #### [facility] ([facility]) [address] [place] [address] VIRPlatelet mean volume (Bld) [Entitic vol]7.5 fLNormal7-12 [facility] HospitalComment on above:Performed By: #### BEDG #### [facility] ([facility]) [address] [place] [address] VIRPlatelets (Bld) [#/Vol]289 10*3/rHKpwvvq593-858GbyInzsjf [place] HospitalComment on above:Performed By: #### BEDG #### [facility] ([facility]) [address] [place] [address] VIRRBC COUNT4.34 X10E12/LNormal4.1-5.7ProOhio[facility] Hospital Comment on above:Performed By: #### BEDG #### [facility] ([facility]) [address] [place] [address] VIRWBC (Bld) [#/Vol]10.6 10*3/uLNormal4-11ProAd[facility] Centerca [place] HospitalComment on above:Performed By: #### BEDG #### [facility] ([facility]) [address] [place] [address] VIRCOMPREHENSIVE METABOLIC PANELon 94-74-7749Cxwgbez [Mass/Vol] 3.7 g/dLNormal3.2-5.3[facility] [place] HospitalComment on above:Performed By: #### BEDG #### [facility] ([facility]) [address] [place] [address] VIRALP [Catalytic activity/Vol]55 U/YBdlnao02-657SmyYjitoc [place] HospitalComment on above:Performed By: #### BEDG #### [facility] ([facility]) [address] [place] [address] VIRALT [Catalytic activity/Vol]11 U/LNormal<=40ProOhio[facility] HospitalComment on above:Performed By: #### BEDG #### [facility] ([facility]) [address] [place] [address] VIRAnion gap [Moles/Vol]9 mmol/LNormal5-15Pro[facility] HospitalComment on above:Performed By: #### BEDG #### [facility] ([facility]) [address] [place] [address] VIRAST [Catalytic activity/Vol]20 U/LNormal<=41ProAd[facility] Centerca [place] HospitalComment on above:Performed By: #### BEDG #### [facility] ([facility]) [address] [place] [address] VIRBilirubin [Mass/Vol]0.9 mg/dLNormal0.3-1.2PEast [facility] HospitalComment on above:Performed By: #### BEDG #### [facility] ([facility]) [address] [place] [address] VIRCalcium [Mass/Vol]8.8 mg/dLNormal8.5-10.5PEast [facility] HospitalComment on above:Performed By: #### BEDG #### [facility] ([facility]) [address] [place] [address] VIRChloride [Moles/Vol]99 mmol/ZLjmsok53-220PqoQvwwzy [place] HospitalComment on above:Performed By: #### BEDG #### [facility] ([facility]) [address] [place] [address] VIRCO2 [Moles/Vol]29 mmol/FXiwewz77-04PvkNzninbSumma Health Comment on above:Performed By: #### BEDG #### [facility] ([facility]) [address] [place] [address] VIRCreatinine [Mass/Vol]0.86 mg/dLNormal0.60-1.30ProOhio[facility] HospitalComment on above:Result Comment: METHOD TRACEABLE TO IDMS STANDARDPerformed By: #### BEDG #### [facility] ([facility]) [address] [facility] [place] [address] VIREGFR (CKD-EPI) NON-RACE DEPENDENT>^90Normal>=60ProOhio[facility] HospitalComment on above:Result Comment: Reported eGFR is based on the CKD-EPI 2020 equation that does not use a race coefficient.Performed By: #### BEDG #### [facility] ([facility]) [address] [place] [address] VIRGlucose [Mass/Vol]102 mg/mNDxoo84-43UblUwkppj [place] HospitalComment on above:Performed By: #### BEDG #### [facility] ([facility]) [address] [place] [address] VIRPotassium [Moles/Vol]4.1 mmol/LNormal3.5-5.0ProAd[facility] Centerca [place] HospitalComment on above:Performed By: #### BEDG #### [facility] ([facility]) [address] [place] [address] VIRProtein [Mass/Vol]6.0 g/dLNormal6.0-8.0ProOhio[facility] HospitalComment on above:Performed By: #### BEDG #### [facility] ([facility]) [address] [place] [address] VIRSodium [Moles/Vol]137 mmol/GAusshv912-591AvrHpaofc [place] HospitalComment on above:Performed By: #### BEDG #### [facility] ([facility]) [address] [place] [address] VIRUrea nitrogen [Mass/Vol]21 mg/dLNormal5-27Pro[facility] HospitalComment on above:Performed By: #### BEDG #### [facility] ([facility]) [address] [place] [address] VIRCBC WITH AUTO DIFFERENTIALon [id number] ABSOLUTE COUNT (10*3/UL) BY AUTOMATED COUNT0.0 10*3/uLNormal0.0-0.2Pro[facility]age Medical CenterComment on above:Performed By: #### CBCA #### [facility] ([facility]) [address] [place] [address] VIRBASOPHILS RELATIVE PERCENT BY AUTOMATED COUNT0.1 %Normal [facility] [place] HospitalComment on above:Performed By: #### CBCA #### [facility] ([facility]) [address] [place] [address] VIRCELLAVISION DIFFERENTIAL TYPEAUTOMATED DIFFERENTIALNormal [facility] HospitalComment on above:Performed By: #### CBCA #### [facility] ([facility]) [address] [place] [address] VIREosinophils (Bld) [#/Vol]0.0 10*3/uLNormal0.0-0.4ProAd[facility] Centerca [place] HospitalComment on above:Performed By: #### CBCA #### [facility] ([facility]) [address] [place] [address] VIREOSINOPHILS RELATIVE PERCENT BY AUTOMATED COUNT0.0 %Normal [facility] HospitalComment on above:Performed By: #### CBCA #### [facility] ([facility]) [address] [place] [address] VIRErythrocyte distribution width (RBC) [Ratio]13.4 %Normal 11.5-15Pro[facility] HospitalComment on above:Performed By: #### CBCA #### [facility] ([facility]) [address] [place] [address] VIRHematocrit (Bld) [Volume fraction]39.2 %Zeqaky16-85IqsOeygym [place] HospitalComment on above:Performed By: #### CBCA #### [facility] ([facility]) [address] [place] [address] VIRHemoglobin (Bld) [Mass/Vol]13.0 g/dGCnhtzj47-61LjoIumidc [place] HospitalComment on above:Performed By: #### CBCA #### [facility] ([facility]) [address] [place] [address] VIRLYMPHOCYTES ABSOLUTE COUNT (10*3/UL) BY AUTOMATED COUNT0.7 10*3/uLLow1.0-3.5[facility] [place] HospitalComment on above:Performed By: #### CBCA #### [facility] ([facility]) [address] [place] [address] VIRLYMPHOCYTES RELATIVE PERCENT BY AUTOMATED COUNT5.3 %Normal [facility] [place] HospitalComment on above:Performed By: #### CBCA #### [facility] ([facility]) [address] [place] [address] VIRMCH (RBC) [Entitic mass]29.1 bgKpjlhr66-31GzzCnvuyw [facility] HospitalComment on above:Performed By: #### CBCA #### [facility] ([facility]) [address] [place] [address] VIRMCHC (RBC) [Mass/Vol]33.1 g/rEUbmgev65-51AjpCmfkdi [facility] HospitalComment on above:Performed By: #### CBCA #### [facility] ([facility]) [address] [place] [address] VIRMCV (RBC) [Entitic vol]88 eKEkpycb19-005VhmXxsscm [place] HospitalComment on above:Performed By: #### CBCA #### [facility] ([facility]) [address] [place] [address] VIRMONOCYTES ABSOLUTE COUNT (10*3/UL) BY AUTOMATED COUNT1.3 10*3/uLHigh0.0-0.9[facility] [place] HospitalComment on above:Performed By: #### CBCA #### [facility] ([facility]) [address] [place] [address] VIRMONOCYTES RELATIVE PERCENT BY AUTOMATED COUNT9.7 %Normal [facility] [place] HospitalComment on above:Performed By: #### CBCA #### [facility] ([facility]) [address] [place] [address] VIRNEUTROPHILS ABSOLUTE COUNT BY AUTOMATED COUNT11.2 10*3/uL High1.5-6.6Pro[facility] HospitalComment on above:Performed By: #### CBCA #### [facility] ([facility]) [address] [place] [address] VIRNEUTROPHILS RELATIVE PERCENT BY AUTOMATED COUNT84.9 %Normal [facility] HospitalComment on above:Performed By: #### CBCA #### [facility] ([facility]) [address] [place] [address] VIRPlatelet mean volume (Bld) [Entitic vol]7.7 fLNormal7-12 [facility] HospitalComment on above:Performed By: #### CBCA #### [facility] ([facility]) [address] [place] [address] VIRPlatelets (Bld) [#/Vol]337 10*3/zCJdzcia237-149IczYhbvbq [place] HospitalComment on above:Performed By: #### CBCA #### [facility] ([facility]) [address] [place] [address] VIRRBC COUNT4.46 X10E12/LNormal4.1-5.7ProOhio[facility] Hospital Comment on above:Performed By: #### CBCA #### [facility] ([facility]) [address] [place] [address] VIRWBC (Bld) [#/Vol]13.3 10*3/uLHigh4-11ProShelby Memorial HospitalComment on above:Performed By: #### CBCA #### [facility] ([facility]) [address] [place] [address] VIRCOMPREHENSIVE METABOLIC PANELon 58-94-9346Ixhxfar [Mass/Vol] 3.9 g/dLNormal3.2-5.3[facility] [place] HospitalComment on above:Performed By: #### CMP #### [facility] ([facility]) [address] [place] [address] VIRALP [Catalytic activity/Vol]58 U/JVenaqt39-295EvyJkeojr [place] HospitalComment on above:Performed By: #### CMP #### [facility] ([facility]) [address] [place] [address] VIRALT [Catalytic activity/Vol]13 U/LNormal<=40[facility] HospitalComment on above:Performed By: #### CMP #### [facility] ([facility]) [address] [place] [address] VIRAnion gap [Moles/Vol]7 mmol/LNormal5-15[facility] HospitalComment on above:Performed By: #### CMP #### [facility] ([facility]) [address] [place] [address] VIRAST [Catalytic activity/Vol]19 U/LNormal<=41[facility] HospitalComment on above:Performed By: #### CMP #### [facility] ([facility]) [address] [place] [address] VIRBilirubin [Mass/Vol]0.8 mg/dLNormal0.3-1.2[facility] [place] HospitalComment on above:Performed By: #### CMP #### [facility] ([facility]) [address] [place] [address] VIRCalcium [Mass/Vol]9.0 mg/dLNormal8.5-10.5[facility] [place] HospitalComment on above:Performed By: #### CMP #### [facility] ([facility]) [address] [place] [address] VIRChloride [Moles/Vol]102 mmol/LHkovut60-145DbqOvdklt [facility] HospitalComment on above:Performed By: #### CMP #### [facility] ([facility]) [address] [place] [address] VIRCO2 [Moles/Vol]28 mmol/LIyzkpl47-50ZrxCigomn [facility] Comment on above:Performed By: #### CMP #### [facility] ([facility]) [address] [place] [address] VIRCreatinine [Mass/Vol]0.78 mg/dLNormal0.60-1.30[facility] HospitalComment on above:Result Comment: METHOD TRACEABLE TO IDMS STANDARDPerformed By: #### CMP #### [facility] ([facility]) [address] [place] [id number] VIREGFR (CKD-EPI) NON-RACE DEPENDENT>^90Normal>=60[facility] HospitalComment on above:Result Comment: Reported eGFR is based on the CKD-EPI 2020 equation that does not use a race coefficient.Performed By: #### CMP #### [facility] ([facility]) [address] [place] [address] VIRGlucose [Mass/Vol]90 mg/iNUfjzvl81-09EevBfjwzx [facility] HospitalComment on above:Performed By: #### CMP #### [facility] ([facility]) [address] [place] [address] VIRPotassium [Moles/Vol]4.3 mmol/LNormal3.5-5.0[facility] HospitalComment on above:Performed By: #### CMP #### [facility] ([facility]) [address] [place] [address] VIRProtein [Mass/Vol]6.5 g/dLNormal6.0-8.0[facility] HospitalComment on above:Performed By: #### CMP #### [facility] ([facility]) [address] [place] [address] VIRSodium [Moles/Vol]137 mmol/COyvntt511-611NluKbnvir [facility] HospitalComment on above:Performed By: #### CMP #### [facility] ([facility]) [address] [place] [phone] VIRUrea nitrogen [Mass/Vol]20 mg/dLNormal5-27[facility] HospitalComment on above:Performed By: #### CMP #### [facility] ([facility]) [address] [place] [address] VIRFL SWALLOW MOTILITY FUNCTIONon [id number] SWALLOW MOTILITY FUNCTIONFL SWALLOW MOTILITY FUNCTION FL [...] by Denny Parekh MD on 07/08/2025 1:55 PMNormalDayton Children's HospitalLIPID PROFILEon [id number] [Mass/Vol]111 mg/[id number] [facility] CenterComment on above:Order Comment: fastingPerformed By: #### BEDG #### [facility] ([facility]) [address] [place] [address] VIRCholesterol in HDL [Mass/Vol]48 mg/dLNormal>39Day[facility] Children's HospitalComment on above:Order Comment: fastingResult Comment: HDL <40 mg/dL - High Risk HDL > or = 40mg/dL- Desirable HDL >60 mg/dL - Negative RiskPerformed By: #### BEDG #### [facility] ([facility] [facility] [address] [place] [address] VIRCholesterol in LDL [Mass/Vol]51 mg/dLNormal<130Dayton Children's HospitalComment on above:Order Comment: fastingResult Comment: LDL <100 mg/dL - Desirable LDL >160 mg/dL - High RiskPerformed By: #### BEDG #### [facility] ([facility]) [address] [place] [address] VIRCHOLESTEROL:HDL2.2Pivfxn9.0-5.0ProOhio[facility] Comment on above:Order Comment: fastingPerformed By: #### BEDG #### [facility] ([facility]) [address] [place] [address] VIRTriglyceride [Mass/Vol]59 mg/aDMddpbw16-251ZboJsedud [place] HospitalComment on above:Order Comment: fastingPerformed By: #### BEDG #### [facility] ([facility]) [address] [place] [address] VIRVERY LOW XGNRKPGTZHT64 mg/dLNormal0-30ProShelby Memorial HospitalComment on above:Order Comment: fastingPerformed By: #### BEDG #### [facility] ([facility]) [address] [place] [address] VIRB-TYPE NATRIURETIC PEPTIDEon 76-05-2767Ncoskpxkpkq peptide B (Bld) [Mass/Vol]45 pg/mLNormal<=100ProShelby Memorial HospitalComment on above: Performed By: #### BNP #### [facility] ([facility]) [address] [place] [address] VIRBEDSIDE GLUCOSEon 87-26-1533Rqgjubp [Mass/Vol]117 mg/dLHigh 65-99ProShelby Memorial HospitalComment on above:Performed By: #### BEDG #### [facility] ([facility]) [address] [place] [address] VIRCBC WITH AUTO DIFFERENTIALon 57-20-2842RQQCAGYSZ ABSOLUTE COUNT (10*3/UL) BY AUTOMATED COUNT0.0 10*3/uLNormal0.0-0.2ProMedTrinity Health SystemComment on above:Performed By: #### CBCA #### [facility] ([facility]) [address] [place] [address] VIRBASOPHILS RELATIVE PERCENT BY AUTOMATED COUNT0.3 %Normal [facility] HospitalComment on above:Performed By: #### CBCA #### [facility] ([facility]) [address] [place] [address] VIRCELLAVISION DIFFERENTIAL TYPEAUTOMATED DIFFERENTIALNormal [facility] HospitalComment on above:Performed By: #### CBCA #### [facility] ([facility]) [address] [place] [address] VIREosinophils (Bld) [#/Vol]0.0 10*3/uLNormal0.0-0.4ProAdams County Regional Medical Centerca [place] HospitalComment on above:Performed By: #### CBCA #### [facility] ([facility]) [address] [place] [address] VIREOSINOPHILS RELATIVE PERCENT BY AUTOMATED COUNT0.1 %Normal [facility] HospitalComment on above:Performed By: #### CBCA #### [facility] ([facility]) [address] [place] [address] VIRErythrocyte distribution width (RBC) [Ratio]12.8 %Normal 11.5-15ProAdams County Regional Medical Centerca [place] HospitalComment on above:Performed By: #### CBCA #### [facility] ([facility]) [address] [place] [address] VIRHematocrit (Bld) [Volume fraction]40.0 %Fhdirn80-34CwfPwtbho [place] HospitalComment on above:Performed By: #### CBCA #### [facility] ([facility]) [address] [place] [address] VIRHemoglobin (Bld) [Mass/Vol]13.3 g/gQUlcdpx57-10TsfIypyvl [place] HospitalComment on above:Performed By: #### CBCA #### [facility] ([facility]) [address] [place] [address] VIRLYMPHOCYTES ABSOLUTE COUNT (10*3/UL) BY AUTOMATED COUNT0.2 10*3/uLLow1.0-3.5Pro[facility] HospitalComment on above:Performed By: #### CBCA #### [facility] ([facility]) [address] [place] [address] VIRLYMPHOCYTES RELATIVE PERCENT BY AUTOMATED COUNT2.4 %Normal [facility] HospitalComment on above:Performed By: #### CBCA #### [facility] ([facility]) [address] [place] [address] VIRMCH (RBC) [Entitic mass]29.4 bxGmpnqf91-37RusDadgbe [place] HospitalComment on above:Performed By: #### CBCA #### [facility] ([facility]) [address] [place] [address] VIRMCHC (RBC) [Mass/Vol]33.4 g/pBCpksfs81-77QkiEegehw [place] HospitalComment on above:Performed By: #### CBCA #### [facility] ([facility]) [address] [place] [address] VIRMCV (RBC) [Entitic vol]88 sGLmrakd46-729JpfRosfka [place] HospitalComment on above:Performed By: #### CBCA #### [facility] ([facility]) [address] [place] [address] VIRMONOCYTES ABSOLUTE COUNT (10*3/UL) BY AUTOMATED COUNT0.1 10*3/uLNormal0.0-0.9ProOhiohealth Southeastern Medical Center HospitalComment on above:Performed By: #### CBCA #### [facility] ([facility]) [address] [place] [address] VIRMONOCYTES RELATIVE PERCENT BY AUTOMATED COUNT0.9 %Normal [facility] HospitalComment on above:Performed By: #### CBCA #### [facility] ([facility]) [address] [place] [address] VIRNEUTROPHILS ABSOLUTE COUNT BY AUTOMATED COUNT9.2 10*3/uLHigh 1.5-6.6ProAdams County Regional Medical Centerca [place] HospitalComment on above:Performed By: #### CBCA #### [facility] ([facility]) [address] [place] [address] VIRNEUTROPHILS RELATIVE PERCENT BY AUTOMATED COUNT96.3 %Normal [facility] HospitalComment on above:Performed By: #### CBCA #### [facility] ([facility]) [address] [place] [address] VIRPlatelet mean volume (Bld) [Entitic vol]7.5 fLNormal7-12 [facility]Do[facility] HospitalComment on above:Performed By: #### CBCA #### [facility] ([facility]) [address] [place] [address] VIRPlatelets (Bld) [#/Vol]314 10*3/vPGrrgmz635-192AxcLmvpzp [place] HospitalComment on above:Performed By: #### CBCA #### [facility] ([facility]) [address] [place] [address] VIRRBC COUNT4.53 X10E12/LNormal4.1-5.7ProOhio[facility] Comment on above:Performed By: #### CBCA #### [facility] ([facility]) [address] [place] [address] VIRWBC (Bld) [#/Vol]9.5 10*3/uLNormal4-11ProOhiohealth Southeastern Medical Center HospitalComment on above:Performed By: #### CBCA #### [facility] ([facility]) [address] [place] [address] VIRCOMPREHENSIVE METABOLIC PANELon 23-60-7069Wogaxbv [Mass/Vol] 4.0 g/dLNormal3.2-5.3[facility] HospitalComment on above:Performed By: #### CMP #### [facility] ([facility]) [address] [place] [address] VIRALP [Catalytic activity/Vol]63 U/KOyudnt45-412YuwGabahy [place] HospitalComment on above:Performed By: #### CMP #### [facility] ([facility]) [address] [place] [address] VIRALT [Catalytic activity/Vol]14 U/LNormal<=40[facility] HospitalComment on above:Performed By: #### CMP #### [facility] ([facility]) [address] [place] [address] VIRAnion gap [Moles/Vol]7 mmol/LNormal5-15[facility] HospitalComment on above:Performed By: #### CMP #### [facility] ([facility]) [address] [place] [address] VIRAST [Catalytic activity/Vol]16 U/LNormal<=41[facility] HospitalComment on above:Performed By: #### CMP #### [facility] ([facility]) [address] [place] [address] VIRBilirubin [Mass/Vol]0.7 mg/dLNormal0.3-1.2ProMedKettering Health Washington Township HospitalComment on above:Performed By: #### CMP #### [facility] ([facility]) [address] [place] [address] VIRCalcium [Mass/Vol]8.8 mg/dLNormal8.5-10.5ProMedKettering Health Washington Township HospitalComment on above:Performed By: #### CMP #### [facility] ([facility]) [address] [place] [address] VIRChloride [Moles/Vol]100 mmol/MMidycf92-969VwhHeeryq [place] HospitalComment on above:Performed By: #### CMP #### [facility] ([facility]) [address] [place] [address] VIRCO2 [Moles/Vol]30 mmol/XEkcuox90-08YbjWwxzbi [facility] Comment on above:Performed By: #### CMP #### [facility] ([facility]) [address] [place] [address] VIRCreatinine [Mass/Vol]0.92 mg/dLNormal0.60-1.30ProOhiohealth Southeastern Medical Center HospitalComment on above:Result Comment: METHOD TRACEABLE TO IDMS STANDARDPerformed By: #### CMP #### [facility] ([facility]) [address] [place] [address] VIREGFR (CKD-EPI) NON-RACE DEPENDENT>^90Normal>=60ProOhiohealth Southeastern Medical Center HospitalComment on above:Result Comment: Reported eGFR is based on the CKD-EPI 2020 equation that does not use a race coefficient.Performed By: #### CMP #### [facility] ([facility]) [address] [place] [address] VIRGlucose [Mass/Vol]124 mg/aJAlac41-17DpaQnpmvs [place] HospitalComment on above:Performed By: #### CMP #### [facility] ([facility]) [address] [place] [address] VIRPotassium [Moles/Vol]3.9 mmol/LNormal3.5-5.0ProOhiohealth Southeastern Medical Center HospitalComment on above:Performed By: #### CMP #### [facility] ([facility]) [address] [place] [address] VIRProtein [Mass/Vol]6.6 g/dLNormal6.0-8.0ProOhiohealth Southeastern Medical Center HospitalComment on above:Performed By: #### CMP #### [facility] ([facility]) [address] [place] [address] VIRSodium [Moles/Vol]137 mmol/AUaizjs117-564TeuZgbwcz [place] HospitalComment on above:Performed By: #### CMP #### [facility] ([facility]) [address] [place] [address] VIRUrea nitrogen [Mass/Vol]17 mg/dLNormal5-27ProShelby Memorial HospitalComment on above:Performed By: #### CMP #### [facility] ([facility]) [address] [place] [address] VIRCT CEREBRAL PERF ANALYSISon 45-06-9750HX CEREBRAL PERF ANALYSISCT CEREBRAL PERF ANALYSIS CT [...] by Kishore Thomas MD on 07/07/2025 2:47 PMNormalProShelby Memorial HospitalHEMOGLOBIN A1Con 12-21-9144Tyxyvsj [Mass/Vol]117 mg/dLNormalProShelby Memorial HospitalComment on above:Performed By: #### HA1C #### [facility] ([facility]) [address] [place] [address] UAVRnH7m (Bld) [Mass fraction]5.7 %High4.4-5.6ProShelby Memorial HospitalComment on above:Result Comment: ADA Guidelines Result HgbA1c Normal : less than 5.7 % Prediabetes : 5.7 % to 6.4 % Diabetes : > 6.4 % Use with caution in patients with abnormal hemoglobin variants as the half-life of red blood cells and in vivo glycation rates are affected.Performed By: #### HA1C #### [facility] ([facility]) [address] [place] [address] VIRMR BRAIN WO CONTon 22-96-3976DN BRAIN WO CONTMR BRAIN WO CONT MRI [...] by Mich Diaz MD on 07/07/2025 9:12 [facility] 80-71-0409FS CHEST 1 VWXR CHEST 1 VW Single view chest History: Difficulty breathing, shortness of breath Comparison: 03/08/2022 Impression: No acute pulmonary process. No pneumothorax or pleural effusion. Nonenlarged heart. Finalized by Mark Anthony MD on 07/07/2025 7:20 [facility] 2[facility]on 77-97[place] [address] XRay Report Signed Patient: SAM CARRASCO MR#: [id number] : 1960 Acct:[id number] Age/Sex: 64 / M ADM Date: 11/16/24 Loc: RAD Attending Dr: Azul Quezada NP Ordering Physician: Azul Quezada NP Date of Service: 11/16/24 Procedure(s): XR chest 2V Accession Number(s): [id number] cc: Azul Quezada NP [address] [address] Patient Name: SAM CARRASCO MRN: [id number] date: 1960 Sex: M Assigned Patient Location: RAD Current Patient Location: RAD Accession/Order Number: [id number] Exam Date: 11/16/2024 19:23 Report Date: 11/16/2024 [...] Carlos Knight M.D.11/16/2024 7:24 PM Dictation Location: [place] [address] Electronically authenticated by: [id number] Y Date: 11/16/2024 19:24 Dictated By: Carlos Knight M.D. Signed By: 11/16/241925 DD/ 23 TD/TT: Principal Architectural Firm:[facility], Radiologist, - 11/16/2024 The [place] [id number] XRay Report Signed Patient: SAM CARRASCO MR#: [id number] : 1960 Acct:[id number] Age/Sex: 64 / M ADM Date: 11/16/24 Loc: RAD Attending Dr: Azul Quezada NP Ordering Physician: Azul Quezada NP Date of Service: 11/16/24 Procedure(s): XR chest 2V Accession Number(s): [id number] cc: Azul Quezada NP The [place] [id number] Patient Name: SAM CARRASCO MRN: [id number] date: 1960 Sex: M Assigned Patient Location: RAD Current Patient Location: RAD Accession/Order Number: [id number] Exam Date: 11/16/2024 19:23 Report Date: 11/16/2024 [...] Carlos Knight M.D.11/16/2024 7:24 PM Dictation Location: [place] [address] Electronically authenticated by: [id number] Y Date: 11/16/2024 19:24 Dictated By: Carlos Knight M.D. Signed By: 11/16/241925 DD/ 23 TD/TT: Principal Architectural Firm: [employer] HealthcareRadiology Study observation (narrative)NOM[facility] HealthcareXR CHEST 2V Ordered By: Radiologist Radiology on 03-67-3496W[facility] Work Phone: aLL HEMOGLOBINon 78-63-4858Lrpatdluhk (Bld) [Mass/Vol] 14.8 g/dL14.0 - 18.0 g/dLNOWY HealthcareCLINISYNCNOMS HealthcareCT LUNG SCREENING LOW DOSEon 71-94-4710Zxq[address] [address] [address] Scan Report Signed Patient: SAM CARRASCO MR#: [id number] : 1960 Acct:[id number] Age/Sex: 64 / M ADM Date: 09/06/24 Loc: CT Attending Dr: Jameson White D.O. Ordering Physician: Jameson White D.O. Date of Service: 09/06/24 Procedure(s): CT lung screening low-dose Accession Number(s): [id number] cc: Azul Quezada NP [address] [address] Patient Name: SAM CARRASCO MRN: [id number] date: 1960 Sex: M Assigned Patient Location: CT Current Patient Location: Accession/Order Number: [id number] Exam Date: 09/06/2024 14:22 Report Date: 09/08/2024 [...] M.D. Signed By: 09/08/24 0551 DD/ TD/TT: Principal Architectural Firm:TBHR[facility], Radiologist, - 09/08/2024 [place] [address] CT Scan Report Signed Patient: SAM CARRASCO MR#: [id number] : 1960 Acct:[id number] Age/Sex: 64 / M ADM Date: 09/06/24 Loc: CT Attending Dr: Jameson White D.O. Ordering Physician: Jameson White D.O. Date of Service: 09/06/24 Procedure(s): CT lung screening low-dose Accession Number(s): [id number] cc: Azul Quezada NP The [address] [address] Patient Name: SAM CARRASCO MRN: [id number] date: 1960 Sex: M Assigned Patient Location: CT Current Patient Location: Accession/Order Number: [id number] Exam Date: 09/06/2024 14:22 Report Date: 09/08/2024 [...] Olson M.D. Signed By: 09/08/2451 DD/ TD/TT: Principal Architectural Firm: [facility] HealthcareRadiology Study observation (narrative)[facility] HealthcareCT LUNG SCREENING LOW DOSEOrdered By: Radiologist Radiology on 23-73-0788IZTF [employer] Work Phone: PSA TOTAL+% FREEon 09-07-2024% FREE PSA26.0 %.[facility] HealthcareComment on above:The table below lists [...] any other population of men. Performed at: [employer] [id number] Chief Pharmacist: Mich Orozco PhD, Phone: [phone] Prostate specific Ag [Mass/Vol]1.0 ng/mL0.0 - 4.0 ng/mLNROGER MILLS MEMORIAL [facility] HealthcareComment on above:Darlin ECLIA methodology. According to the [place] [employer], Serum PSA should decrease and [...] FREE0.26 ng/mLN/ANOMS HealthcareComment on above:Darlin ECLIA methodology. [facility], [place] CBC WITH AUTO DIFFon 04-92-7418UDEHRYSYP ABSOLUTE AUTO0.1NOMS HealthcareBasophils/100 WBC (Bld)0.9 %0.2 - 2.0 %[facility] Eosinophils/100 WBC (Bld)0.1 %Low0.9 - 7.0 %[facility] CenterErythrocyte distribution width (RBC) [Ratio]12.8 %11.0 - 15.0 %[facility] CenterHematocrit (Bld) [Volume fraction]43.1 %42.0 - 54.0 %[facility] CenterHemoglobin (Bld) [Mass/Vol]13.9 g/dLLow14.0 - 18.0 g/dLWashington University Medical CenterIMMATURE GRANULOCYTES ABS AUTO0.03NOGeneral Leonard Wood Army Community HospitalImmature granulocytes/100 WBC (Bld)0.3 %0.0 - 0.5 %[facility] CenterInterpretation and review of laboratory resultsAbnormalWashington [facility] Medical Center LYMPHOCYTES ABSOLUTE AUTO1.2NOMS [facility] HospitalLymphocytes/100 WBC (Bld)14 %Low20.5 - 60.0 %[facility] ServicesH (RBC) [Entitic mass]30.3 pg25.9 - 34.0 pgHeartland Behavioral Health ServicesHC (RBC) [Mass/Vol]32.3 g/dL29.9 - 35.2 g/dLHeartland Behavioral Health ServicesV (RBC) [Entitic vol]94.1 eXRitq32.0 - 94.0 fLWashington University Medical CenterMONOCYTES ABSOLUTE AUTO0.9 HighBEAVER VALLEY HOSPITAL HealthcareMonocytes/100 WBC (Bld)9.7 %1.7 - 12.0 %[facility] NEUTROPHILS ABSOLUTE AUTO6.5NOGeneral Leonard Wood Army Community HospitalNeutrophils/100 WBC (Bld)75 %43.0 - 75.0 %[facility] Medical CenterPlatelet mean volume (Bld) [Entitic vol]10.1 fL9.5 - 13.5 fLNOMS HealthcareTBH EO #0NOMS HealthcareTBH ENL013MJNQ HealthcareTBH RBC4.58Low NOMS HealthcareTBH WBC8.7NOMS HealthcareCLINISYNCNOMS HealthcareTBH UA (CLEAN/CATCH) MICROSCOPIC IF INDICATEon 20-98-6637QOWMYZPTJ URINENegative NEGATIVENOMS HealthcareBLOOD URINENegativeNEGATIVENOMS HealthcareClarity (U) CLEARCLEARNOMS HealthcareColor (U)LT. YELLOWYELLOWNOMS HealthcareGLUCOSE URINE UANegativeNEGATIVE mg/dLNOWY HealthcareInterpretation and review of laboratory resultsAbnormalNOMS HealthcareKetones Ql (U)NegativeNEGATIVE mg/dLNOMS HealthcareLeukocyte esterase Test strip Ql (U)SMALLAbnormalNEGATIVENOMS HealthcareNITRITE URINENegativeNEGATIVENOMS HealthcarepH (U)6.0 [pH]5.0 - 9.0 NOMS HealthcarePROTEIN URINENegativeNEG/TRACE mg/dLNOMS HealthcareSPECIFIC GRAVITY URINE1.0151.005 - 1.025NOWY HealthcareURINE MICROSCOPIC INDICATEDYESNOMS HealthcareUROBILINOGEN URINE0.2 EU/dL0.2 - 1.0 EU/dLNOWY HealthcareCLINISYNC NOMS HealthcareBNPon 55-22-6584Vmcwbpbhlpw peptide B (Bld) [Mass/Vol]42.0 pg/mL Normal<=900.0The [facility] HospitalComment on above:Performed By: #### INFLUAB #### [facility] [address] [place] [address] Dr. Tom Mendez AUTO DIFFon 42-67-0952SCLP #0.1 103/ulNormal0.0-0.1The [facility] HospitalComment on above:Performed By: #### CBC #### [facility] [address] [place] [address] [address] Tom Santiagosophils/100 WBC (Bld)0.8 %Normal0.2-2.0The [facility] Comment on above:Performed By: #### CBC #### [facility] [address] [place] [address] [address] Santos ChangEPrimo #0.0 103/ulNormal0.0-0.7The [place] HospitalComment on above: Performed By: #### CBC #### [facility] [address] [place] [address] Dr. Tom Mannosinophils/100 WBC (Bld)0.0 %Critically low0.9-7.0The [facility] HospitalComment on above:Performed By: #### CBC #### [facility] [address] [place] [address] Dr. Tom Mannrythrocyte distribution width (RBC) [Ratio]12.4 %Ixkgot94.0-15.0 The [facility] HospitalComment on above:Performed By: #### CBC #### [facility] [address] [place] [address] Dr. Tom DotsonHematocrit (Bld) [Volume fraction]43.6 %Jiqzhg93.0-54.0The [facility] HospitalComment on above:Performed By: #### CBC #### [facility] [address] [place] [address] Dr. Tom DotsonHemoglobin (Bld) [Mass/Vol]14.3 g/vQXhsped29.0-18.0The [facility] HospitalComment on above:Performed By: #### CBC #### [facility] [address] [place] [address] Dr. Tom Salgado #0.02 10e3/ulNormal0.00-0.03The [facility] HospitalComment on above:Performed By: #### CBC #### [facility] [address] [place] [address] Dr. Tom Salgado %0.3 %Normal0.0-0.5The [facility] HospitalComment on above: Performed By: #### CBC #### [facility] [address] [place] [address] Dr. Tom MenjivarH #1.4 103/ulNormal1.2-3.8The [facility] HospitalComment on above:Performed By: #### CBC #### [facility] [address] [place] [address] Dr. Tom Lugomphocytes/100 WBC (Bld)17.3 %Critically low20.5-60.0The [facility] HospitalComment on above:Performed By: #### CBC #### [facility] [address] [place] [address] Dr. Tom Tang DIFF REQNONormalThe [facility] HospitalComment on above: Performed By: #### CBC #### [facility] [address] [place] [address] Dr. Tom Anderson (RBC) [Entitic mass]29.8 wbRleulk55.9-34.0The [facility] HospitalComment on above:Performed By: #### CBC #### [facility] [address] [place] [address] Dr. Tom Anderson (RBC) [Mass/Vol]32.8 g/oXNgsqzr64.9-35.2The [facility] HospitalComment on above:Performed By: #### CBC #### [facility] [address] [place] [address] Dr. Tom Briggs (RBC) [Entitic vol]90.8 rIIjbjvl76.0-94.0The [facility] HospitalComment on above:Performed By: #### CBC #### [facility] [address] [place] [address] Dr. Tom Baires #0.7 103/ulNormal0.3-0.8The [facility] HospitalComment on above:Performed By: #### CBC #### [facility] [address] [place] [address] Dr. Tom Phanocytes/100 WBC (Bld)9.4 %Normal1.7-12.0The [facility] Comment on above:Performed By: #### CBC #### [facility] [address] [place] [address] Dr. Tom Kevin #5.7 103/ulNormal1.4-6.5The [facility] HospitalComment on above:Performed By: #### CBC #### [facility] [address] [place] [address] Dr. Tom Watermanophils/100 WBC (Bld)72.2 %Toxfkn01.0-75.0The [facility] HospitalComment on above:Performed By: #### CBC #### [facility] [address] [place] [address] Dr. Tom Monroy mean volume (Bld) [Entitic vol]9.6 fLNormal9.5-13.5The [facility] HospitalComment on above:Performed By: #### CBC #### [facility] [address] [place] [address] Dr. Tom PoeT331 103/bjCztmct113-722Ycf [facility] HospitalComment on above: Performed By: #### CBC #### [facility] [address] [place] [address] Dr. Tom DotsonRBC4.80 106/ulNormal4.70-6.10The [facility] HospitalComment on above:Performed By: #### CBC #### [facility] [address] [place] [address] Dr. Tom DotsonWBC7.8 103/ulNormal4.0-11.0The [facility] HospitalComment on above: Performed By: #### CBC #### [facility] [address] [place] [address] Dr. Tom Pro BLOODon 66-63-4893Fvtknuutiit examination of blood, cultureCulture Observations: NO GROWTH AT 5 DAYS.NormalThe [facility] HospitalComment on above:Performed By: #### INFLUAB #### [facility] [address] [place] [address] Dr. Tom DotsonMicroscopic examination of blood, cultureCulture Observations: NO GROWTH AT 5 DAYS.NormalThe [facility] Clinic Union HospitalComment on above:Performed By: #### INFLUAB #### [facility] [address] [place] [address] Dr. Tom DotsonCovid-19 PCR (CVDTB)on 40-87-2111WTHF-CoV-2 (COVID-19) RNA OLGA+probe Ql (Unsp spec)Not detectedNormalNOT DETECTEDThe [facility] Comment on above:Result Comment: When diagnostic [...] for this test is supported by the [place] of Health and Human Service's declaration that [...] longer be used).Performed By: #### CVDTBH #### [facility] [address] [place] [address] Dr. Tom Carvalho AND B AGon [id number] Municipal Hospital on above:Result Comment: Negative for Flu A protein angiten. Infection due to Flu A cannot be ruled out. FluA angiten in the sample may be below the detection limit of the test.Performed By: #### INFLUAB #### [facility] [address] [place] [address] Dr. Tom LagosNEGPABLO [facility] on above: Result Comment: Negative for Flu B protein antigen. Infection due to Flu B cannot be ruled out. FluB antigen in the sample may be below the detection limit of the test.Performed By: #### INFLUAB #### [facility] [address] [place] [address] Dr. Tom Carvalho AGNegativeNormalNEGATIVE SEE COMMENTThe [facility] on above:Performed By: #### INFLUAB #### [facility] [address] [place] [address] Dr. Tom Chavez AGNegativeNormalNEGATIVE SEE COMMENTThe [place] HospitalComment on above:Performed By: #### INFLUAB #### [facility] [address] [address] [address] Tom DotsonLACTATE/LACTIC ACIDon 57-62-7615Ugnkvcp [Moles/Vol]0.7 mmol/L Normal0.4-1.9The [facility] HospitalComment on above:Performed By: #### LACT #### [facility] [address] [address] [address] Tom DotsonPROF CHEM 8 (BAS METB)on 49-36-9342Qkqjy gap [Moles/Vol]9.3 mmol/LNormalThe [facility] HospitalComment on above:Performed By: #### HSTROPN, BMP, BNP #### [facility] [address] [place] [address] Dr. Tom DotsonCalcium [Mass/Vol]8.8 mg/dLNormal8.5-10.1[facility] Comment on above:Performed By: #### HSTROPN, BMP, BNP #### [facility] [address] [place] [address] Dr. Tom DotsonChloride [Moles/Vol]103 mmol/CKjaxgr62-784Zns [facility] Comment on above:Performed By: #### HSTROPN, BMP, BNP #### [facility] [address] [place] [address] Dr. Tom DotsonCO2 [Moles/Vol]31.1 mmol/AQyfxnt44.0-32.0[facility] Comment on above:Performed By: #### HSTROPN, BMP, BNP #### [facility] [address] [place] [address] Dr. Tom DotsonCreatinine [Mass/Vol]0.77 mg/dLNormal0.70-1.30The [facility] HospitalComment on above:Performed By: #### HSTROPN, BMP, BNP #### [facility] [address] [place] [address] Dr. Santos ChangEGFR-AF MALIAN>60Normal>=60The [facility] HospitalComment on above:Performed By: #### HSTROPN, BMP, BNP #### [facility] [address] [address] [address] Tom MannGFR-NON AF MALIAN>60Normal>=60The [facility] HospitalComment on above:Performed By: #### HSTROPN, BMP, BNP #### [facility] [address] [address] [address] Tom DotsonGlucose [Mass/Vol]98 mg/iSMdqlqv18-232OdiSt. Anthony'S Hospital Comment on above:Performed By: #### HSTROPN, BMP, BNP #### [facility] [address] [place] [address] Dr. Tom DotsonPotassium [Moles/Vol]4.4 mmol/LNormal3.5-5.1[facility] Comment on above:Performed By: #### HSTROPN, BMP, BNP #### [facility] [address] [place] [address] Dr. Tom Kesslerdium [Moles/Vol]139 mmol/SOikqcb142-529QufSt. Anthony'S Hospital Comment on above:Performed By: #### HSTROPN, BMP, BNP #### [facility] [address] [address] [address] Tom DotsonUrea nitrogen [Mass/Vol]13.0 mg/dLNormal7.0-18.0The [facility] HospitalComment on above:Performed By: #### HSTROPN, BMP, BNP #### [facility] [address] [place] [address] Dr. Tom Reed nitrogen/Creatinine [Mass ratio]16.9 mg/mgNormalThe [facility] HospitalComment on above:Performed By: #### HSTROPN, BMP, BNP #### [facility] [address] [place] [address] Dr. Tom Stover, HIGH SENSITIVITYon 68-41-5603CJCIQD6.4 pg/mLNormal 4.0-76.1[facility] on above:Result Comment: CUT-OFF POINTS HAVE BEEN ESTABLISHED BASED ON THE FOURTH UNIVERSAL DEFINITIONS OF MYOCARDIAL INFARCTION. THE UPPER REFERENCE LIMIT (URL) OF TROPONIN, DEFINED THE 99TH PERCENTILE OF cTnI DISTRIBUTION IN A REFERENCE POPULATION, HAS BEEN CONFIRMED THE DECISION THRESHOLD FOR WI DIAGNOSIS.Performed By: #### INFLUAB #### [facility] [address] [place] [address] Dr. Tom DotsonXR CHEST 1 Von [id number] CHEST 1 VEXAMINATION: XR CHEST 1 V [...] Electronically authenticated by: YARIEL OLSON Date: 2022-09-25 10:55NormalThMercer County Community HospitalASPERGILLUS AB, QUANTITATIVE DIDon [id number] flavus NegativeNormalNeg:<1:1St. Anthony'S HospitalComment on above:Performed By: #### ASPDID #### [facility] [address] [place] [address] Dr. Tom Garcias fumigatusNegativeNormalNeg:<1:1[facility] Comment on above:Performed By: #### ASPDID #### [facility] [address] [address] [address] Tom Garcias nigerNegativeNormalNeg:<1:1[facility] Comment on above:Performed By: #### ASPDID #### [facility] [address] [place] [address] Dr. Tom DotsonANTI NEUTROPHIL CYTOPLASMIC AB (ANCA) PRon [id number]-MPO Antibodies<0.0Pwozbd3.0-0.9St. Anthony'S HospitalComment on above:Result Comment: Performed at: BNPerformed By: #### CBC #### [facility] [address] [place] [address] Dr. Tom DotsonAnti-PR3 Antibodies<0.4Ioebtw9.0-0.9St. Anthony'S HospitalComment on above:Result Comment: Performed at: BNPerformed By: #### CBC #### [facility] [address] [place] [address] Dr. Tom DotsonAtypical pANCA<1:20NormalNeg:<1:20ThMercer County Community HospitalComment on above:Result Comment: The atypical pANCA pattern has been observed in a significant percentage of patients with ulcerative colitis, primary sclerosing cholangitis and autoimmune hepatitis. Performed at: CBPerformed By: #### CBC #### [facility] [address] [place] [address] Dr. Tom DotsonCytoplasmic (C-ANCA)<1:20NormalNeg:<1:20ThMercer County Community Hospital Comment on above:Result Comment: Performed at: CBPerformed By: #### CBC #### [facility] [address] [place] [address] Dr. Tom DotsonPerinuclear (P-ANCA)<1:20NormalNeg:<1:20ThMercer County Community Hospital Comment on above:Result Comment: The presence [...] Performed at: CBPerformed By: #### CBC #### [facility] [address] [place] [address] Dr. Tom DotsonIMMUNOGLOBULIN E, TOTALon [id number] E, Total68 IU/mLNormal6-495The [facility] HospitalComment on above:Performed By: #### IGETOT #### [facility] [address] [place] [address] Dr. Tom DotsonANGIOTENSION-CONVERTING ENZYME (ELINOR)on [id number] U/LNormal 14-82The [facility] HospitalComment on above:Performed By: #### ANGIOC #### [facility] [address] [place] [address] Dr. Tom IbarraC AUTO DIFFon 86-29-1730LWFE #0.1 103/ulNormal0.0-0.1The [facility] HospitalComment on above:Performed By: #### INFLUAB #### [facility] [address] [place] [address] Dr. Tom DotsonBasophils/100 WBC (Bld)1.0 %Normal0.2-2.0[facility] Comment on above:Performed By: #### INFLUAB #### [facility] [address] [place] [address] Dr. Tom MannO #0.0 103/ulNormal0.0-0.7The [facility] HospitalComment on above: Performed By: #### INFLUAB #### [facility] [address] [place] [address] Dr. Tom Mannosinophils/100 WBC (Bld)0.1 %Critically low0.9-7.0The [facility] on above:Performed By: #### INFLUAB #### [facility] [address] [place] [address] Dr. Tom Mannrythrocyte distribution width (RBC) [Ratio]12.9 %Bhmbzv90.0-15.0 The [facility] HospitalComment on above:Performed By: #### INFLUAB #### [facility] [address] [place] [address] Dr. Tom DotsonHematocrit (Bld) [Volume fraction]44.8 %Firmow65.0-54.0The [facility] Hospitalment on above:Performed By: #### INFLUAB #### [facility] [address] [place] [address] Dr. Tom DotsonHemoglobin (Bld) [Mass/Vol]15.0 g/uOVrhceu76.0-18.0The Joel HospitalComment on above:Performed By: #### INFLUAB #### [facility] [address] [address] [address] Tom Salgado #0.02 10e3/ulNormal0.00-0.03The [facility] HospitalComascension providence hospital on above:Performed By: #### INFLUAB #### [facility] [address] [place] [address] Dr. Tom Salgado %0.2 %Normal0.0-0.5The [facility] HospitalComascension providence hospital on above: Performed By: #### INFLUAB #### [facility] [address] [place] [address] Dr. Tom Lares #1.4 103/ulNormal1.2-3.8The [facility] HospitalComascension providence hospital on above:Performed By: #### INFLUAB #### [facility] [address] [place] [address] Dr. Tom Menjivarhocytes/100 WBC (Bld)17.6 %Critically low20.5-60.0The [facility] HospitalComascension providence hospital on above:Performed By: #### INFLUAB #### [facility] [address] [place] [address] Dr. Tom McgillUAL DIFF REQNONormalThe [facility] HospitalComment on above: Performed By: #### INFLUAB #### [facility] [address] [place] [address] Dr. Tom Anderson (RBC) [Entitic mass]30.9 ufIckoga95.9-34.0The [facility] HospitalComment on above:Performed By: #### INFLUAB #### [facility] [address] [place] [address] Dr. Tom Anderson (RBC) [Mass/Vol]33.5 g/bKEoizwc25.9-35.2The [facility] HospitalComascension [facility] hospital on above:Performed By: #### INFLUAB #### [facility] [address] [place] [address] Dr. Tom Anderson (RBC) [Entitic vol]92.2 iUZiztnd82.0-94.0The [facility] HospitalComment on above:Performed By: #### INFLUAB #### [facility] [address] [place] [address] Dr. Tom Baires #0.8 103/ulNormal0.3-0.8The [facility] HospitalComment on above:Performed By: #### INFLUAB #### [facility] [address] [place] [address] Dr. Tom Phanocytes/100 WBC (Bld)9.6 %Normal1.7-12.0[facility] Comment on above:Performed By: #### INFLUAB #### [facility] [address] [place] [address] Dr. Tom Kevin #5.9 103/ulNormal1.4-6.5The [facility] HospitalComment on above:Performed By: #### INFLUAB #### [facility] [address] [place] [address] Dr. Tom Riverautrophils/100 WBC (Bld)71.5 %Dqpamz13.0-75.0The [facility] HospitalComment on above:Performed By: #### INFLUAB #### [facility] [address] [place] [address] Dr. Tom Monroy mean volume (Bld) [Entitic vol]9.9 fLNormal9.5-13.5The [facility] HospitalComment on above:Performed By: #### INFLUAB #### [facility] [address] [place] [address] Dr. Tom DotsonPLT325 103/joJkcnbc769-235Zia [facility] HospitalComment on above: Performed By: #### INFLUAB #### [facility] [address] [place] [address] Dr. Tom DotsonRBC4.86 106/ulNormal4.70-6.10The [facility] HospitalComment on above:Performed By: #### INFLUAB #### [facility] [address] [place] [address] Dr. Tom DotsonWBC8.2 103/ulNormal4.0-11.0The [facility] HospitalComment on above: Performed By: #### INFLUAB #### [facility] [address] [address] [address] Tom Meza LUNG CANCER SCREENINGon [id number] LUNG CANCER SCREENING EXAMINATION: CT LUNG CANCER [...] Electronically authenticated by: YARIEL OLSON Date: 2022-04-10 22:[address] [place] [address] AUTO DIFFon [id number] #0.1 103/ulNormal0.0-0.1The [facility] HospitalComment on above:Performed By: #### CBC #### [facility] [address] [place] [address] Dr. Tom DotsonBasophils/100 WBC (Bld)1.0 %Normal0.2-2.0[facility] Comment on above:Performed By: #### CBC #### [facility] [address] [address] [address] Tom Xiao #2.5 103/ulCritically high0.0-0.7The [facility] HospitalComment on above:Performed By: #### CBC #### [facility] [address] [place] [address] Dr. Tom Mannosinophils/100 WBC (Bld)29.1 %Critically high0.9-7.0The [facility] HospitalComment on above:Performed By: #### CBC #### [facility] [address] [place] [address] Dr. Tom Mannrythrocyte distribution width (RBC) [Ratio]12.8 %Zjyzzi19.0-15.0 The [facility] HospitalComment on above:Performed By: #### CBC #### [facility] [address] [place] [address] Dr. Tom DotsonHematocrit (Bld) [Volume fraction]46.6 %Rcpjac29.0-54.0The [facility] HospitalComment on above:Performed By: #### CBC #### [facility] [address] [place] [address] Dr. Tom DotsonHemoglobin (Bld) [Mass/Vol]14.4 g/vRJbluct37.0-18.0The [facility] HospitalComment on above:Performed By: #### CBC #### [facility] [address] [place] [address] Dr. Tom Salgado #0.04 10e3/ulCritically high0.00-0.03[facility] Comment on above:Performed By: #### CBC #### [facility] [address] [place] [address] Dr. Tom Salgado %0.5 %Normal0.0-0.5The [facility] HospitalComment on above: Performed By: #### CBC #### [facility] [address] [place] [address] Dr. Tom MenjivarH #1.3 103/ulNormal1.2-3.8The [facility] HospitalComment on above:Performed By: #### CBC #### [facility] [address] [place] [address] Dr. Tom Lugomphocytes/100 WBC (Bld)15.1 %Critically low20.5-60.0The [facility] HospitalComment on above:Performed By: #### CBC #### [facility] [address] [place] [address] Dr. Tom McgillUAL DIFF REQNONormalThe [facility] HospitalComment on above: Performed By: #### CBC #### [facility] [address] [place] [address] Dr. Tom Anderson (RBC) [Entitic mass]29.5 xqGkhqqq41.9-34.0The [facility] HospitalComment on above:Performed By: #### CBC #### [facility] [address] [place] [address] Dr. Tom Anderson (RBC) [Mass/Vol]30.9 g/cLFsegur23.9-35.2The [facility] HospitalComment on above:Performed By: #### CBC #### [facility] [address] [place] [address] Dr. Tom Anderson (RBC) [Entitic vol]95.5 fLCritically high80.0-94.0The [facility] HospitalComment on above:Performed By: #### CBC #### [facility] [address] [place] [address] Dr. Tom Baires #0.8 103/ulNormal0.3-0.8The [facility] HospitalComment on above:Performed By: #### CBC #### [facility] [address] [place] [address] Dr. Tom Phanocytes/100 WBC (Bld)9.5 %Normal1.7-12.0[facility] Comment on above:Performed By: #### CBC #### [facility] [address] [place] [address] Dr. Tom Kevin #3.9 103/ulNormal1.4-6.5The [facility] HospitalComment on above:Performed By: #### CBC #### [facility] [address] [address] [address] Tom Riverautrophils/100 WBC (Bld)44.8 %Gcdfnk25.0-75.0[facility] on above:Performed By: #### CBC #### [facility] [address] [place] [address] Dr. Tom Irvinglet mean volume (Bld) [Entitic vol]10.2 fLNormal9.5-13.5[facility] on above:Performed By: #### CBC #### [facility] [address] [place] [address] Dr. Tom DotsonPLT328 103/yqVjwihj015-738Bjr [facility] on above: Performed By: #### CBC #### [facility] [address] [place] [address] Dr. Tom DotsonRBC4.88 106/ulNormal4.70-6.10[facility] on above:Performed By: #### CBC #### [facility] [address] [place] [address] Dr. Tom DotsonWBC8.7 103/ulNormal4.0-11.0[facility] on above: Performed By: #### CBC #### [facility] [address] [place] [address] Dr. Tom RiverENTIAL MANUALon 23-61-2913VYARKMYC LYMPH #0.09 103/ulNormal [facility] on above:Performed By: #### DIFF #### [facility] [address] [place] [address] Dr. Tom DotsonATYPICAL LYMPH %1 %NormalThe [facility] on above: Performed By: #### DIFF #### [facility] [address] [place] [address] Dr. Tom High #0.0 103/ulNormal0.0-0.3[facility] on above:Performed By: #### DIFF #### [facility] [address] [address] [address] Tom High %0 %Normal0-5The [facility] HospitalComment on above:Performed By: #### DIFF #### [facility] [address] [place] [address] Dr. Tom Pimentel #0.00 103/ulNormal0.00-0.10The [facility] HospitalComment on above:Performed By: #### DIFF #### [facility] [address] [place] [address] Dr. Tom Pimentel %0.0 %Critically low0.2-2.0The [facility] HospitalComment on above:Performed By: #### DIFF #### [facility] [address] [place] [address] Dr. Tom Huang #NormalThe [facility] HospitalComment on above:Performed By: #### DIFF #### [facility] [address] [place] [address] Dr. Tom Huang %NormalThe [facility] HospitalComment on above:Performed By: #### DIFF #### [facility] [address] [place] [address] Dr. Tom DotsonCORRECTED WBCNormal4.0-11.0The [facility] Hospitalment on above: Performed By: #### DIFF #### [facility] [address] [place] [address] Dr. Tom Delgado #1.22 103/ulCritically high0.00-0.70[facility] Comment on above:Performed By: #### DIFF #### [facility] [address] [place] [address] Dr. Tom Delgado%14.0 %Critically high0.9-7.0The [facility] HospitalComment on above:Performed By: #### DIFF #### [facility] [address] [place] [address] Dr. Tom Davidson #1.91 103/ulNormal1.20-3.80The [facility] HospitalComment on above:Performed By: #### DIFF #### [facility] [address] [place] [address] Dr. Tom Davidson%22.0 %Jfvwuy64.5-60.0The [facility] HospitalComment on above:Performed By: #### DIFF #### [facility] [address] [place] [address] Dr. Tom FullerOCYTE #NormalThe [facility] [place] HospitalComment on above: Performed By: #### DIFF #### [facility] [address] [place] [address] Dr. Tom FullerOCYTE %NormalSt. Anthony'S HospitalComment on above: Performed By: #### DIFF #### [facility] [address] [place] [address] Dr. Tom High#0.52 103/ulNormal0.30-0.80The [facility] HospitalComment on above:Performed By: #### DIFF #### [facility] [address] [place] [address] Dr. Tom High%6.0 %Normal1.7-12.0The [facility] HospitalComment on above: Performed By: #### DIFF #### [facility] [address] [place] [address] Dr. Tom Hdez #NormalSt. Anthony'S HospitalComascension providence hospital on above:Performed By: #### DIFF #### [facility] [address] [place] [address] Dr. Tom Hdez %NormalThe [facility] HospitalComment on above:Performed By: #### DIFF #### [facility] [address] [place] [address] Dr. Tom Dos SantosNormalThe [facility] HospitalComment on above:Performed By: #### DIFF #### [facility] [address] [place] [address] Dr. Tom Mckay #4.96 103/ulNormal1.40-6.50The [facility] HospitalComment on above:Performed By: #### DIFF #### [facility] [address] [place] [address] Dr. Tom Mckay %57.0 %Meikkw43.0-75.0The [facility] HospitalComment on above: Performed By: #### DIFF #### [facility] [address] [address] [address] Tom DotsonWBC8.7 103/ulNormal4.0-11.0St. [facility]S HospitalComment on above: Performed By: #### DIFF #### [facility] [address] [place] [address] Dr. oTm DotsonLIPID PROFILEon [id number]-HDL RATIO NORMSEE [facility] HospitalComment on above:Result Comment: 3.3 - 4.4 LOW RISK 4.4 - 7.1 AVERAGE RISK 7.1 - 11.0 MODERATE RISK >11.0 HIGH RISKPerformed By: #### INFLUAB #### [facility] [address] [place] [address] Dr. Tom Changesterol [Mass/Vol]135 mg/dLNormal<=200[facility] Comment on above:Performed By: #### INFLUAB #### [facility] [address] [place] [address] Dr. Tom Changesterol in HDL [Mass/Vol]51 mg/eXBbgwle85-17EhaSt. Anthony'S HospitalComascension providence hospital on above:Performed By: #### INFLUAB #### [facility] [address] [place] [address] Dr. Tom Changesterol in LDL [Mass/Vol]74.4 mg/dLMarietta Osteopathic ClinicComascension providence hospital on above:Performed By: #### INFLUAB #### [facility] [address] [place] [address] Dr. Tom Gomez.total/Cholesterol in HDL [Mass ratio]2.6 {ratio} NormalThe [facility] HospitalComment on above:Performed By: #### INFLUAB #### [facility] [address] [place] [address] Dr. Tom De Luna NORMAL> or = 60 mg/dl - LOW CARDIOVASCULAR RISK <40 mg/dl - HIGH CARDIOVASCULAR RISKMarietta Osteopathic ClinicComment on above:Performed By: #### INFLUAB #### [facility] [address] [place] [address] Dr. Tom DotsonLDL CALC NORMALSEE BELOWMarietta Osteopathic ClinicComment on above:Result Comment: <100 mg/dl OPTIMAL 100 - 129 mg/dl NEAR OR ABOVE OPTIMAL 130 - 159 mg/dl BORDERLINE HIGH 160 - 189 mg/dl HIGH >190 mg/dl VERY HIGH Performed By: #### INFLUAB #### [facility] [address] [place] [address] Dr. Tom DotsonTriglyceride [Mass/Vol]48 mg/dLNormal<=150[facility] Comment on above:Performed By: #### INFLUAB #### [facility] [address] [place] [address] Dr. Tom DotsonVLDL CALC9.6 mg/dLNoSumma HealthComment on above: Performed By: #### INFLUAB #### [facility] [address] [place] [address] Dr. Tom DotsonPROF 14(COMP METB)on 57-13-0667Trviqaj [Mass/Vol]3.8 g/dLNormal 3.4-5.0The [facility] HospitalComment on above:Performed By: #### INFLUAB #### [facility] [address] [place] [address] Dr. Tom DotsonAlbumin/Globulin [Mass ratio]1.1 {ratio}NormalThe [facility] HospitalComment on above:Performed By: #### INFLUAB #### [facility] [address] [place] [address] Dr. Tom White [Catalytic activity/Vol]62 U/DXgeskp12-095Tmt [facility] HospitalComasc[facility] on above:Performed By: #### INFLUAB #### [facility] [address] [place] [address] Dr. Tom Faulkner [Catalytic activity/Vol]25 U/LScukvv48-44Hpv [facility] HospitalComment on above:Performed By: #### INFLUAB #### [facility] [address] [address] [address] Tom Mohanon gap [Moles/Vol]9.8 mmol/LNormalThe [facility] HospitalComment on above:Performed By: #### INFLUAB #### [facility] [address] [address] [address] Tom DotsonAST [Catalytic activity/Vol]15 U/TKbrrse99-94Txg [facility] HospitalComment on above:Performed By: #### INFLUAB #### [facility] [address] [place] [address] Dr. Tom DotsonBilirubin [Mass/Vol]0.9 mg/dLNormal0.2-1.0The [facility] Comment on above:Performed By: #### INFLUAB #### [facility] [address] [place] [address] Dr. Tom DotsonCalcium [Mass/Vol]8.8 mg/dLNormal8.5-10.1The [facility] Comment on above:Performed By: #### INFLUAB #### [facility] [address] [place] [address] Dr. Tom DotsonChloride [Moles/Vol]102 mmol/TEctvna91-257Agt [facility] Comment on above:Performed By: #### INFLUAB #### [facility] [address] [place] [address] Dr. Tom DotsonCO2 [Moles/Vol]30.5 mmol/ZAlqnlb92.0-32.0The [facility] Comment on above:Performed By: #### INFLUAB #### [facility] [address] [place] [address] Dr. Tom DotsonCreatinine [Mass/Vol]0.95 mg/dLNormal0.70-1.30The [facility] HospitalComment on above:Performed By: #### INFLUAB #### [facility] [address] [place] [address] Dr. Santos ChangEGFR-AF MALIAN>60Normal>=60The [facility] HospitalComment on above:Performed By: #### INFLUAB #### [facility] [address] [address] [address] Tom MannGFR-NON AF MALIAN>60Normal>=60The [facility] HospitalComment on above:Performed By: #### INFLUAB #### [facility] [address] [address] [address] Tom DotsonGlobulin (S) [Mass/Vol]3.4 g/dLNormGlenbeigh HospitalComment on above:Performed By: #### INFLUAB #### [facility] [address] [address] [address] Tom DotsonGlucose [Mass/Vol]85 mg/fAQmluqt36-329Vmw [facility] Comment on above:Performed By: #### INFLUAB #### [facility] [address] [address] [address] Tom DotsonPotassium [Moles/Vol]4.3 mmol/LNormal3.5-5.1The [facility] Comment on above:Performed By: #### INFLUAB #### [facility] [address] [address] [address] Tom DotsonProtein [Mass/Vol]7.2 g/dLNormal6.4-8.2[facility] Comment on above:Performed By: #### INFLUAB #### [facility] [address] [address] [address] Tom DotsonSodium [Moles/Vol]138 mmol/XWgmscr725-597Hmm [facility] Comment on above:Performed By: #### INFLUAB #### [facility] [address] [address] [address] Tom DotsonUrea nitrogen [Mass/Vol]14.0 mg/dLNormal7.0-18.0The [facility] HospitalComment on above:Performed By: #### INFLUAB #### [facility] [address] [address] [address] Tom DotsonUrea nitrogen/Creatinine [Mass ratio]14.7 mg/mgNormalThMercer County Community HospitalComment on above:Performed By: #### INFLUAB #### [facility] [address] [address] [address] Tom Arreaga 18-99-8611OBG5.010 uIU/mLNormal0.358-3.740St. [facility]'S HospitalComment on above:Performed By: #### INFLUAB #### [facility] [address] [address] [address] Tom DotsonHepatic Panelon 66-56-5869Qjabqja [Mass/Vol]3.2 g/dLNormal3.2-5.5 [facility] CenterComment on above:Performed By: #### HEPATIC, LIPID, TSH3 wRFLX, [id number] #### [facility] [address] [place] [address] USAAlbumin/Globulin [Mass ratio]1.1 {ratio}Cleveland ClinicComment on above:Performed By: #### HEPATIC, LIPID, TSH3 wRFLX, [id number] #### [facility] [address] [place] [address] USAALP [Catalytic activity/Vol]38 U/JHmkuyw19-10QdxknfsvtAdams County Regional Medical CenterComment on above:Performed By: #### HEPATIC, LIPID, TSH3 wRFLX, [id number] #### [facility] [address] [place] [address] USAALT [Catalytic activity/Vol]14 U/TAsmbgd47-19BlgsvngxlAdams County Regional Medical CenterComment on above:Performed By: #### HEPATIC, LIPID, TSH3 wRFLX, [id number] #### [facility] [address] [place], [place] [id number] USAAST [Catalytic activity/Vol]13 U/WFpywth76-33MmjtsrodjAdams County Regional Medical CenterComment on above:Performed By: #### HEPATIC, LIPID, TSH3 wRFLX, [id number] #### [facility] [address] [place] [address] USABilirubin [Mass/Vol]0.9 mg/dLNormal0.3-1.2FCleveland Clinic South Pointe HospitalComment on above:Performed By: #### HEPATIC, LIPID, TSH3 wRFLX, [id number] #### [facility] [address] [place] [address] USABilirubin,Indirect0.8 mg/dLNoSouthview Medical CenterComment on above:Performed By: #### HEPATIC, LIPID, TSH3 wRFLX, [id number] #### [facility] [address] [place] [address] USABilirubin.direct [Mass/Vol]0.1 mg/dLNormal0.0-0.4FCleveland Clinic South Pointe HospitalComment on above:Performed By: #### HEPATIC, LIPID, TSH3 wRFLX, [id number] #### [facility] [address] [place] [address] USAGlobulin (S) [Mass/Vol]2.9 g/dLNoSouthview Medical CenterComment on above:Performed By: #### HEPATIC, LIPID, TSH3 wRFLX, [id number] #### [facility] [address] [place] [address] USAProtein [Mass/Vol]6.1 g/dLNoal6.1-7.9[facility] Medical CenterComment on above:Performed By: #### HEPATIC, LIPID, TSH3 wRFLX, [id number] #### [facility] [address] [place] [address] USALipid Panelon 60-05-6377Dhfxheqqlsv [Mass/Vol]158 mg/dL Nglkdu417-183JhwbsaudeAdams County Regional Medical CenterComment on above:Result Comment: Chol less than 200 mg/dl low risk Chol 201-239 mg/dl borderline risk Chol 240 mg/dl and greater high riskPerformed By: #### HEPATIC, LIPID, TSH3 wRFLX, [id number] #### [facility] [address] [place] [address] USACholesterol in HDL [Mass/Vol]61 mg/kYAenwqp47-04GnrondugkAdams County Regional Medical CenterComment on above:Result Comment: HDL CHOL ATP-III CLASSIFICATION Cardiovascular Risk HDL > or equal to 60 mg/dL LOW HDL < 40 mg/dL HIGHPerformed By: #### HEPATIC, LIPID, TSH3 wRFLX, [id number] #### [facility] [address] [place] [address] USACholesterol.total/Cholesterol in HDL [Mass ratio]2.6 {ratio}Normal<5.0[facility] Medical CenterComment on above:Performed By: #### HEPATIC, LIPID, TSH3 wRFLX, [id number] #### [facility] [address] [place] [address] USALDL Cholesterol,Dkdfejexnl45 mg/dLNormal0-100[facility] Medical CenterComment on above:Result Comment: LDL ATP III CLASSIFICATION LDL less than 100 mg/dL Optimal LDL 100-129 mg/dL Near or above optimal LDL 130-159 mg/dL Borderline high LDL 160-189 mg/dL High LDL greater than 189 mg/dL Very highPerformed By: #### HEPATIC, LIPID, TSH3 wRFLX, [id number] #### [facility] [address] [id number] USATriglyceride w/Gpbslf28 mg/hOXycmed27-393McpxlcyqyAdams County Regional Medical CenterComment on above:Result Comment: TRIG ATP III CLASSIFICATION TRIG less than 150 mg/dL Normal TRIG 150-199 mg/dL Borderline high TRIG 200-500 mg/dL High TRIG greater than 500 mg/dL Very high Standard traceable to the Center for Disease Conrtrol and Prevention (CDC) test method.Performed By: #### HEPATIC, LIPID, TSH3 wRFLX, [id number] #### [facility] [address] [id number] USAVLDL PLNQZPHZUQV93 mg/dLNormalAdams County Regional Medical CenterComment on above:Performed By: #### HEPATIC, LIPID, TSH3 wRFLX, [id number] #### [facility] [address] [place] [address] USAThyroid Stim Hormone w/Rflxon 64-94-6487Nacpveg Stim Hormone w/Rflx1.92 u[iU]/mLNormal0.45-5.33[facility] Comment on above:Performed By: #### HEPATIC, LIPID, TSH3 wRFLX, [id number] #### [facility] [address] [id number] USAVitamin D 25 Hydroxy Totalon 72-52-5279Iehdkbj D 25 Hydroxy Total11.9 ng/nCWar45-766FtwltkwjzAdams County Regional Medical CenterComment on above:Result Comment: VITAMIN D STATUS 25(OH)VITAMIN D RANGE (ng/mL) Deficient <20 Insufficient 20 to <30 Sufficient 30 to 100 Reference: Darrion MF,Zane NC, Hanna AVELAR, et al. Evaluation,treatment, and prevention of vitamin D deficiency; an Endocrine Society clinical practice guideline. JCEM. 2010; 96(7):1911-30. PERFORMED BY: [facility] [address] [id number] PATHOLOGIST [employer]AV[employer] ENGINE MECHANIC MIGUELINA FLOOD M.D.Performed By: #### HEPATIC, LIPID, TSH3 wRFLX, [id number] #### [address] [address] [facility] Vital Signs Date TimeVital SignValuePerforming ClvhtthrhItniapip95-41-0553 15:38-0400Body mass index (BMI) [Ratio]27.86 kg/m2Azul Leerani CANAL EQUIPMENT MECHANIC Work Phone: [facility] CenterAdvdwhpjqp87-83-9957 15:38-0400Body temperature 97.81 [degF]Azul Leerani CANAL EQUIPMENT MECHANIC Work Phone: [facility] CenterXwxefxfees83-47-6474 15:38-0400Body ehacnu30.8 kg Azul Leidymaxrani CANAL EQUIPMENT MECHANIC Work Phone: [facility] CenterAqvmptelef84-08-6443 15:38-0400Diastolic blood idoyitvg20 mm[Hg]Azul Leerani CANAL EQUIPMENT MECHANIC Work Phone: [address] [address]Ycijswsenv36-08-0692 15:38-0400Heart rate84 /min Azul Leidymaxrani CANAL EQUIPMENT MECHANIC Work Phone: [address] [address]Qnibqhdeqh77-43-7848 15:38-0400Respiratory rate24 /minAzul Damien CANAL EQUIPMENT MECHANIC Work Phone: [facility] CenterUjgzvkernb47-18-2128 15:38-2455RgU9% (BldA) [Mass fraction]94 %Azul Quezada CANAL EQUIPMENT MECHANIC Work Phone: [facility] CenterOhjyvaatju46-89-1393 15:38-0400Systolic blood mm[Hg]Azul Braagz CANAL EQUIPMENT MECHANIC Work Phone: [facility] CenterTzmqlofeco25-47-0921 13:54-0400Body mass index (BMI) [Ratio]27.42 kg/m2Ivorysa Maria Luzz CANAL EQUIPMENT MECHANIC Work Phone: [facility] CenterHsfwbznjeb89-65-9113 13:54-0400Body slcmqbykjzf04 [degF]Azul Bragaz CANAL EQUIPMENT MECHANIC Work Phone: [facility] CenterVuyihirjto37-40-9151 13:54-0400Body bjplso42.26 kgAzul Bragaz CANAL EQUIPMENT MECHANIC Work Phone: [facility] CenterMuncpxmaot91-23-5503 13:54-0400Diastolic blood lwcpxyiz82 mm[Hg]Azul Bragaz CANAL EQUIPMENT MECHANIC Work Phone: [facility] CenterIpowqgioql28-05-9170 13:54-0400Heart rate88 /min Azul Maria Luzz CANAL EQUIPMENT MECHANIC Work Phone: [facility] CenterLqvvkftvhl89-05-5693 13:54-0400Respiratory rate24 /minLisa Quezada CANAL EQUIPMENT MECHANIC Work Phone: [facility] CenterRydjjyhupq37-87-6416 13:54-5715VrD0% (BldA) [Mass fraction]92 %Azul Bragaz CANAL EQUIPMENT MECHANIC Work Phone: [facility] CenterEgusafbpsc68-99-8195 13:54-0400Systolic blood xrmelqsm557 mm[Hg]Azul Bragaz CANAL EQUIPMENT MECHANIC Work Phone: [facility] CenterPzseckttvb37-65-6832 14:25-0500Body mass index (BMI) [Ratio]25.57 kg/m2Azul Leeholz CANAL EQUIPMENT MECHANIC Work Phone: [facility] CenterTozvyqgysl31-66-8328 14:25-0500Body temperature 99.39 [degF]Azul Maria Luzz CANAL EQUIPMENT MECHANIC Work Phone: [phone]02-25-2025 14:25-0500Body dobmzh79.91 kgLisa Leidyhholz CANAL EQUIPMENT MECHANIC Work Phone: [phone])408-[facility] CenterSejpojyxrl61-16-2888 14:25-0500Diastolic blood hugvhwte17 mm[Hg]Azul Aichholz CANAL EQUIPMENT MECHANIC Work Phone: [facility] CenterFsxbfcmcel77-94-0967 14:25-0500Heart rate90 /min Azul Aichholz CANAL EQUIPMENT MECHANIC Work Phone: [phone] [place], [place] [address]Ajgsrmthtj43-18-8623 14:25-0500Respiratory rate26 /minLisa Aichholz CANAL EQUIPMENT MECHANIC Work Phone: [phone] [place], [place] [address]Oircmnmwrb35-64-7851 14:25-7947TpM5% (BldA) [Mass fraction]92 %Azul Aichholz CANAL EQUIPMENT MECHANIC Work Phone: [phone])075-[address] [place], [place] [address]Kdlqkwcrsn42-77-4264 14:25-0500Systolic blood mm[Hg]Azul Aichholz CANAL EQUIPMENT MECHANIC Work Phone: [phone] [place], [place] [address]Pgnsgzynwk49-52-4362 13:20-0500Body ubvjzm667.4 cmLisa Aichholz CANAL EQUIPMENT MECHANIC Work Phone: [facility] CenterOgszsotyrv20-38-2968 13:20-0500Body mass index (BMI) [Ratio]25.17 kg/m2Lisa Aichholz CANAL EQUIPMENT MECHANIC Work Phone: [facility] CenterSgmiasgkae64-87-3063 13:20-0500Body temperature 98.29 [degF]Azul Aichholz CANAL EQUIPMENT MECHANIC Work Phone: 1(785)762-[address] [place], [place] [address]Pdkegiyaov61-51-1693 13:20-0500Body spqacw28.55 kgLisa Aichholz CANAL EQUIPMENT MECHANIC Work Phone: [phone])804-[address] [place], [place] [address]Ehlejqrqhv09-27-2411 13:20-0500Diastolic blood mm[Hg]Azul Aichholz CANAL EQUIPMENT MECHANIC Work Phone: [address] [address]Uykwgpvbtr36-44-2924 13:20-0500Heart rate77 /min Azul Aichholz CANAL EQUIPMENT MECHANIC Work Phone: [facility] CenterPebkmhdzaw73-70-2804 13:20-0500Respiratory rate24 /minAzul Leerani CANAL EQUIPMENT MECHANIC Work Phone: [facility] CenterJddxcnotaw15-99-4155 13:20-5773GsQ2% (BldA) [Mass fraction]97 %Azul Leerani CANAL EQUIPMENT MECHANIC Work Phone: [facility] CenterOfwrkphfbi93-76-4047 13:20-0500Systolic blood cjxwzjay494 mm[Hg]Azul Bragalisette CANAL EQUIPMENT MECHANIC Work Phone: [facility] CenterAscfmpiuuh45-58-1040 13:20-0400Body luiceb311.4 cmIbeth Torres DO Work Phone: [phone])[facility] CenterVyxwlngbsp91-50-3280 13:20-0400Body mass index (BMI) [Ratio]23.67 kg/m2Ibeth Torres DO Work Phone: 1(266)[facility] CenterQqlcmlblgi21-60-4242 13:20-0400Body xivcti64.38 kgIbeth Torres DO Work Phone: 1([phone])[facility] CenterUjuavyevnv63-76-6469 13:20-0400Diastolic blood ioqytxni37 mm[Hg]Ibeth Torres DO Work Phone: 1(307)[facility]301[facility] CenterBzutpffscg98-55-3184 13:20-0400Heart rate70 /min Ibeth Torres DO Work Phone: 1(010)[facility] CenterXshjuucqfm26-14-6860 13:20-0400Respiratory rate12 /minIbeth Torres DO Work Phone: 1(665)[facility]portWashington [facility] Medical CenterQfmawcwasq05-02-5440 13:20-4835LhR7% (BldA) [Mass fraction]98 %Ibeth Torres DO Work Phone: 1([phone])[facility]301[facility] CenterLqxueponlq84-06-9752 13:20-0400Systolic blood ejvwdzam939 mm[Hg]Ibeth Torres DO Work Phone: 1(679)[facility] CenterGnmjeehtvc59-45-4527 14:17-0400Body .4 Elder Aichholz CANAL EQUIPMENT MECHANIC Work Phone: [facility] CenterEvaauoicqm89-24-6497 14:17-0400Body mass index (BMI) [Ratio]23.62 kg/m2Lisa Rosaholz CANAL EQUIPMENT MECHANIC Work Phone: [facility] CenterLyuuarconn14-65-7332 14:17-0400Body temperature 98.01 [degF]Azul Maria Luzz CANAL EQUIPMENT MECHANIC Work Phone: [facility] CenterOtzrdkpidy57-74-2735 14:17-0400Body .19 kgLisa Rosaholz CANAL EQUIPMENT MECHANIC Work Phone: [address] [address]Jmfvapswwk76-34-7365 14:17-0400Diastolic blood drifyywc22 mm[Hg]Azul Rosaholz CANAL EQUIPMENT MECHANIC Work Phone: [address] [address]Hhsjeotvbr86-72-1289 14:17-0400Heart rate79 /min Azul Maria Luzz CANAL EQUIPMENT MECHANIC Work Phone: [address] [address]Xplulgnedz64-88-7094 14:17-0400Respiratory rate22 /minLisa Maria Luzz CANAL EQUIPMENT MECHANIC Work Phone: [address] [address]Exqztpfyop34-84-8377 14:17-1656QuM7% (BldA) [Mass fraction]94 %Azul Maria Luzz CANAL EQUIPMENT MECHANIC Work Phone: [address] [address]Sjnfbwkxqd76-56-4689 14:17-0400Systolic blood rrhybndt44 mm[Hg]Azul Rosanormaz CANAL EQUIPMENT MECHANIC Work Phone: [facility] CenterQuygygznjs56-47-3276 10:00-0500Body ixllep026.4 cmLisa Rosaholz CANAL EQUIPMENT MECHANIC Work Phone: [facility] CenterFcinemqoyv12-05-4573 10:00-0500Body mass index (BMI) [Ratio]26.84 kg/m2Lisa Rosaholz CANAL EQUIPMENT MECHANIC Work Phone: [facility] CenterYrxjiqezmf74-88-0078 10:00-0500Body temperature 97.11 [degF]Azul Rosaholz CANAL EQUIPMENT MECHANIC Work Phone: [facility] CenterOswxrxaqve47-20-4102 10:00-0500Body pydaka55.26 kgAzul Quezada CANAL EQUIPMENT MECHANIC Work Phone: [facility] Hgfmiqskew78-04-8858 10:00-0500Diastolic blood pfxmfpoq11 mm[Hg]Azul Quezada CANAL EQUIPMENT MECHANIC Work Phone: [facility] Qloeqignno23-28-0563 10:00-0500Heart rate83 /min Azul Quezada CANAL EQUIPMENT MECHANIC Work Phone: [facility] Sutkjwkukj89-58-7821 10:00-0500Respiratory rate16 /minAzul Quezada CANAL EQUIPMENT MECHANIC Work Phone: [facility] Egqperpfsy80-04-2594 10:00-7342CjU5% (BldA) [Mass fraction]94 %Azul Quezada CANAL EQUIPMENT MECHANIC Work Phone: [facility] Yiakcdqykc15-20-5134 10:00-0500Systolic blood qwmiprdo789 mm[Hg]Azul Quezada CANAL EQUIPMENT MECHANIC Work Phone: [facility] Encounters Encounter DateEncounter TypeCare ProviderFacilityStart: 07-13-2025 End: 94-83-6375xmxeecphnxKCQXQTMCU A JUMAAProMedKettering Health [facility] Township HospitalStart: 84-72-5090ccgirdobjhHPPK Lashawn [facility] PPGStart: 07-07-2025 End: 96-58-7974aabrpdhgfaONRYJKJ PROVIDERFacility:METROHealthStart: 07-07-2025 End: 60-58-8569Sccohkfdkq and management of inpatientMARIAM ARMIN DIABProMedica Greenville HospitalStart: 05-17-2025 End: 09-78-9399Khutvrvvvqme care manage srvc 7 day dischargeAzul Bragalisette CANAL EQUIPMENT MECHANIC Work Phone: [facility] CWM FMComment on above:Centrilobular emphysema (HCC) (Primary Dx); Tourette's ; Bilateral carotid artery stenosis; Rising PSA level; Mixed hyperlipidemia ; Depression with anxiety; Former smoker; Elevated glucose; Pain of right hipStart: 05-17-2025 End: 00-31-7294vivqqjfunxZYWK AICHHOLZNot AvailableStart: 05-17-2025 End: 67-08-2468Lpkhwz flowsheetLisa Aichholz CANAL EQUIPMENT MECHANIC Work Phone: [facility] CWM FMStart: 05-17-2025 End: 25-64-3705Ujvxqp flowsheetLisa Aichholz CANAL EQUIPMENT MECHANIC Work Phone: [facility] CWM FMStart: 02-15-2025 End: 13-23-2202Kqofsw flowsheetLisa Aichholz CANAL EQUIPMENT MECHANIC Work Phone: [facility] CWM FMStart: 02-15-2025 End: 49-67-1626Hqlhpn flowsheetLisa Aichholz CANAL EQUIPMENT MECHANIC Work Phone: [facility] CWM FMStart: 02-15-2025 End: 27-87-4005Pepqtm outpatient visit 25 minutesLisa Aichholz CANAL EQUIPMENT MECHANIC Work Phone: [facility] CWM FMComment on above:Depression with anxiety (Primary Dx); Cerebrovascular accident (CVA), unspecified mechanism (CMS/HCC); Overweight (BMI 25.0-29.9); Centrilobular emphysema (CMS/HCC); Insomnia, unspecifiedStart: 02-15-2025 End: 19-47-7852dcxvquclxkVPWL AICHHOLZNot AvailableStart: 12-27-2024 End: 91-02-1838EerxjsNvkz Aichholz CANAL EQUIPMENT MECHANIC Work Phone: [facility] CWM FMComment on above:Mixed hyperlipidemia (CMS/HCC)Start: 11-16-2024 End: 10-09-9023Oezcvx flowsheetLisa Aichholz CANAL EQUIPMENT MECHANIC Work Phone: [facility] CWM FMStart: 11-16-2024 End: 00-62-4824Zkprla flowsheetLisa Aichholz CANAL EQUIPMENT MECHANIC Work Phone: [facility] CWM FMStart: 11-16-2024 End: 16-62-1128Sefpbbqsy Result EncounterLisa Aichholz CANAL EQUIPMENT MECHANIC Work Phone: [facility] External Department UnsolicitedStart: 11-16-2024 End: 24-86-1132Mweckkt encounter procedureLisa Leerani CANAL EQUIPMENT MECHANIC Work Phone: [facility] CWM FMComment on above:Encounter for subsequent annual wellness visit (AWV) in Medicare patient (Primary Dx); Centrilobular emphysema (CMS/HCC); Cerebrovascular accident (CVA), unspecified mechanism (CMS/HCC); Bilateral carotid artery stenosis; Overweight (BMI 25.0-29.9); Depression with anxiety; COPD with acute exacerbation ([facility]/HCC)Start: 11-16-2024 End: 44-22-1135zmqbhcvlkdDAGY AICHHOLZNot AvailableStart: 10-22-2024 End: 16-25-3848Crtyedduk Result EncounterGeneric External Data ProviderNOMS External Department UnsolicitedStart: 10-22-2024 End: 78-24-6945Hffychukn Result EncounterGeneric External Data ProviderNOMS External Department UnsolicitedStart: 09-08-2024 End: 37-28-6685Xrxsgixbj Result EncounterGeneric External Data ProviderNOMS External Department UnsolicitedStart: 09-08-2024 End: 48-00-3325Lkpezigxi Result EncounterGeneric External Data ProviderNOMS External Department UnsolicitedStart: 09-06-2024 End: 06-57-8173Fohjiyieo Result EncounterLisa Damien CANAL EQUIPMENT MECHANIC Work Phone: noms External Department UnsolicitedStart: 09-06-2024 End: 14-85-2935Dsdpxlaec Result EncounterLisa Damien CANAL EQUIPMENT MECHANIC Work Phone: noms External Department UnsolicitedStart: 08-16-2024 End: 78-57-2833Fxyhed flowsheetLisa Forbesmaxrani CANAL EQUIPMENT MECHANIC Work Phone: [facility] CWM FMStart: 08-16-2024 End: 05-74-3127Wuwhky flowsheetLisa Leeholz CANAL EQUIPMENT MECHANIC Work Phone: n[facility] CWM FMStart: 08-16-2024 End: 49-01-7020Abcmar outpatient visit 25 minutesLisa Leerani CANAL EQUIPMENT MECHANIC Work Phone: n[facility] CWM FMComment on above:Depression with anxiety (Primary Dx); Primary insomnia; Cerebrovascular accident (CVA), unspecified mechanism (CMS/HCC); Centrilobular emphysema (CMS/HCC); Bilateral carotid artery stenosis; Sessile colonic polyp; Smoker; Needs flu shot; Former smoker; Insomnia, unspecifiedStart: 08-16-2024 End: 94-69-0625siqfshiertOXPX AICHHOLZNot AvailableStart: 07-06-2024 End: 57-19-3768Twyouztpj Result EncounterGeneric External Data ProviderNOMS External Department UnsolicitedStart: 07-06-2024 End: 14-95-2123Yjvkhhohr Result EncounterGeneric External Data ProviderNOMS External Department UnsolicitedStart: 06-02-2024 End: 12-00-7379TubqxnXyjk Aichnormaz CANAL EQUIPMENT MECHANIC Work Phone: [facility] CWM FMComment on above:Depression with anxiety; Insomnia, unspecified; Mixed hyperlipidemia (CMS/HCC)Start: 06-01-2024 End: 86-59-0469Zqgjih OnlyLisa Leenormaz CANAL EQUIPMENT MECHANIC Work Phone: [facility] CWM FMComment on above:Rising PSA level (Primary Dx)Start: 05-31-2024 End: 08-98-1387Vngmujhta Result EncounterLisa Leidyhholz CANAL EQUIPMENT MECHANIC Work Phone: noms External Department UnsolicitedStart: 05-31-2024 End: 88-78-3038Ejhciheay Result EncounterLisa Rosaholz CANAL EQUIPMENT MECHANIC Work Phone: noms External Department UnsolicitedStart: 05-31-2024 End: 02-02-4781Nyviraz encounter Swetha Torres DO Work Phone: noms BWM GENSComment on above:Screening for malignant neoplasm of colon (Primary Dx)Start: 05-31-2024 End: 86-47-0480jtdqrvgituIDVP DUCKETTNot AvailableStart: 05-19-2024 End: 57-44-5674Micmex flowsheetAzul Quezada CANAL EQUIPMENT MECHANIC Work Phone: noms CWM FMStart: 05-19-2024 End: 57-97-1240Sncggv flowsheetAzul Quezada CANAL EQUIPMENT MECHANIC Work Phone: [facility] CWM FMStart: 05-19-2024 End: 28-56-1821Wiwmpo outpatient visit 25 minutesAzul Quezada CANAL EQUIPMENT MECHANIC Work Phone: noms CWM FMComment on above:Depression with anxiety (Primary Dx); Screening for prostate cancer; Smoker; Mixed hyperlipidemia (CMS/HCC); Sessile colonic polyp; Centrilobular emphysema (CMS/HCC); Bilateral carotid artery stenosis; Right hand painStart: 01-14-2024 End: 77-22-7793Iychmypmo encounterEmily Moore RNProMedica Physicians Neurology Start: 06-20-1562Efltpxa encounter procedureLisa Quezada CANAL EQUIPMENT MECHANIC Work Phone: noms HealthcareStart: 10-30-2023 End: 80-88-5726Wnuqvb outpatient visit 15 minutesAzul Quezada CANAL EQUIPMENT MECHANIC Work Phone: noms CWM FMComment on above:Influenza (Primary Dx); Marijuana abuse; Smoker; BMI 26.0-26.9,adult; Centrilobular emphysema (CMS/HCC)Start: 65-40-4459Zyczelcrj Result Encounter Generic External Data ProviderNOMS External Department UnsolicitedStart: 35-53-3458Fenspzzzj Result EncounterGeneric External Data ProviderNOMS External Department UnsolicitedStart: 09-25-2022 End: 39-60-6913avkiufflhwJJK 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Facility:C1Lsezm: 04-16-2022 End: 63-95-1645iwduzzfqhdVWENBV SAMSAFacility:O9Emtme: 04-10-2022 End: 92-96-9533tbajsnbxiiFABHQX SAMSAFacility:O1Ifvpq: 03-06-2022 End: 08-94-3842xonimcbxtmRPJ AZUL DAMIENFacility:H1 Procedures DateProcedureProcedure DetailPerforming ClinicianStart: 82-35-5581BX CHEST 2V Azul Quezada CANAL EQUIPMENT MECHANIC Work Phone: Start: 27-51-6451KBU HEMOGLOBINGeneric External Data ProviderStart: 40-90-1617GC LUNG SCREENING LOW DOSEGeneric External Data ProviderStart: 83-79-6575ZJQ TOTAL+% FREELisa Damien CANAL EQUIPMENT MECHANIC Work Phone: Start: 52-74-9308GAA CBC WITH AUTO DIFFGeneric External Data ProviderStart: 25-53-3279NfcdnroyxlqJobecaf ProviderStart: 17-56-2649OGT UA (CLEAN/CATCH) MICROSCOPIC IF INDICATELisa Damien CANAL EQUIPMENT MECHANIC Work Phone: Start: 84-38-2584RSOTU CULTURE 2Generic External Data ProviderStart: 49-41-8484BNPLI CULTURE 1Generic External Data ProviderStart: 80-03-9732EIG screeningNATHAN CHRISTOPHERComment on above:Performed By: #### [facility] #### [facility] [address] [place] [address] Dr. Tom DotsonStart: 99-64-9449Dmqrr depression screening assessmentEmveknatesh Moore RN Plan of Treatment DateCare ActivityDetailAuthorStart: 53-47-8173Hxuuvdzfh for malignant neoplasm of colonNOMS HealthcareStart: 11-21-2025 End: 97-41-1426Opvxeui encounter ihfmbkpqb29/02/2026 4:30 PM EST Office Visit [facility] [address] [place] [address] Azul Quezada, ORACIO [address] [place] [phone] KAELYN FLOREZ FMStart: 02-25-2026Medicare Annual Wellness (AWV) Medicare Annual Wellness (AWV)NOMS HealthcareStart: 07-18-2025 End: 85-04-8094Lgrneza encounter ezumyboqn08/27/2025 1:20 PM EDT Office Visit [facility] [address] [place] [phone] Azul Quezada, CANAL EQUIPMENT MECHANIC [address] [place] [address] [facility] FMStart: 09-31-2725Hsgrnvdjj vaccinationInfluenza Vaccine (#1)NOMS HealthcareStart: 05-17-2025 End: 76-03-3776Wkvbqrn encounter xlilvblyc12/26/2025 3:20 PM EDT Office Visit [facility] [address] [place] [address] Azul Quezada, CANAL EQUIPMENT MECHANIC [address] [place] [address] Tourette's (Primary Dx); Centrilobular emphysema (HCC); Bilateral carotid artery stenosis; Rising PSA level; Mixed hyperlipidemia ; Depression with anxiety; Former smoker; Elevated glucoseNOMERCY HOSPITAL [facility] [place] FMComment on above:Tourette's (Primary Dx); Centrilobular emphysema (HCC); Bilateral carotid artery stenosis; Rising PSA level; Mixed hyperlipidemia ; Depression with anxiety; Former smoker; Elevated glucoseStart: 05-17-2025 End: 16-44-9483Hfievqzxzdnml metabolic 2000 panel - Serum or PlasmaComprehensive metabolic panel Lab Routine Mixed hyperlipidemia Elevated glucose Expected: 05/17/2025 (Approximate), Expires: 05/17/2026NOMS HealthcareComment on above: Expected: 05/17/2025 (Approximate), Expires: 05/17/2026Start: 05-17-2025 End: 74-05-9418Ifpmycmprz A1c/Hemoglobin.total in BloodHemoglobin A1c Lab Routine Elevated glucose Expected: 05/17/2025 (Approximate), Expires: 05/17/2026 NOMS HealthcareComment on above:Expected: 05/17/2025 (Approximate), Expires: 05/17/2026Start: 05-17-2025 End: 80-71-1305Xsorc 1996 panel - Serum or PlasmaLipid panel Lab Routine Mixed hyperlipidemia Expected: 05/17/2025 (Approximate), Expires: 05/17/2026[facility] HealthcareComment on above:Expected: 05/17/2025 (Approximate), Expires: 05/17/2026Start: 05-17-2025 End: 25-19-2868BAF, total and freePSA, total and free Lab Routine Rising PSA level Expected: 05/17/2025 (Approximate), Expires: 05/17/2026[facility] Work Phone: Comment on above:Expected: 05/17/2025 (Approximate), Expires: 05/17/2026Start: 05-17-2025 End: 09-61-8501Wdifpvbadpx [Units/volume] in Serum or PlasmaTSH Lab Routine Depression with anxiety Expected: 05/17/2025 (Approximate), Expires: 05/17/2026 NOMS HealthcareComment on above:Expected: 05/17/2025 (Approximate), Expires: 05/17/2026Start: 05-17-2025 End: 64-82-5554Uporlcjuik complete panel - UrineUrinalysis with reflex microscopic (clean catch) Lab Routine Former smoker Expected: 05/17/2025 (Vilma roximate), Expires: 05/17/2026[facility] HealthcareComment on above:Expected: 05/17/2025 (Approximate), Expires: 05/17/2026Start: 05-17-2025 End: 53-45-5499GX Hip - right 3 ViewsXR hip right 2 or 3 views Imaging Routine Pain of right hip Expected: 05/17/2025, Expires: 05/17/2026[facility] Healthcare Comment on above:Expected: 05/17/2025, Expires: 05/17/2026Start: 02-15-2025 End: 87-61-5145Zsugxki encounter procedureNOMS CWM FMComment on above: Cerebrovascular accident (CVA), unspecified mechanism (CMS/HCC) (Primary Dx); Overweight (BMI 25.0-29.9); Depression with anxiety; Centrilobular emphysema (CMS/HCC)Start: 11-16-2024 End: 27-56-3017Iiglvtq encounter procedureNOMS CWM FMComment on above: Cerebrovascular accident (CVA), unspecified mechanism (CMS/HCC) (Primary Dx); Centrilobular emphysema (CMS/HCC); Bilateral carotid artery stenosis; Overweight (BMI 25.0-29.9); Depression with anxiety; Encounter for subsequent annual wellness visit (AWV) in Medicare patientStart: 11-16-2024 End: 71-52-0758BV Chest 2 ViewsXR chest 2 views Imaging Routine COPD with acute exacerbation (CMS/HCC) Expected: 11/16/2024 (Approximate), Expires: 11/16/2025 [facility] Healthcare Work Phone: Comment on above:Expected: 11/16/2024 (Approximate), Expires: 11/16/2025Start: 02-22-2025Medicare Annual Wellness (AWV)Medicare Annual Wellness (AWV)[facility] HealthcareStart: 08-16-2024 End: 99-49-8871Dzefpci encounter procedureNOMS CWM FMComment on above:Primary insomnia (Primary Dx); Cerebrovascular accident (CVA), unspecified mechanism (CMS/HCC); Centrilobular emphysema (CMS/HCC); Bilateral carotid artery stenosis; Sessile colonic polyp; Smoker; Depression with anxietyStart: 15-30-5645Spjsqaybx for malignant neoplasm of colonNOWY HealthcareStart: 06-01-2024 End: 80-40-3864PAI, total and freePSA, total and free Lab Routine Rising PSA level Expected: 06/01/2024 (Approximate), Expires: 06/01/2025[facility] Work Phone: Comment on above:Expected: 06/01/2024 (Approximate), Expires: 06/01/2025Start: 13-91-3996Phrzuwhqh vaccinationBEAVER VALLEY HOSPITAL HealthcareStart: 05-19-2024 End: 20-41-3077NXT W Auto Differential panel - BloodCBC and differential Lab Routine Smoker Expected: 05/19/2024 (Approximate), Expires: 05/19/2025[facility] Work Phone: Comment on above:Expected: 05/19/2024 (Approximate), Expires: 05/19/2025Start: 05-19-2024 End: 25-56-0788Lvyobbqhhpvuc metabolic 2000 panel - Serum or PlasmaComprehensive metabolic panel Lab Routine Depression with anxiety Mixed hyperlipidemia (CMS/HCC) Expected: 05/19/2024 (Approximate), Expires: 05/19/2025[facility] Comment on above:Expected: 05/19/2024 (Approximate), Expires: 05/19/2025Start: 05-19-2024 End: 71-52-8512Mbjfk 1996 panel - Serum or PlasmaLipid panel Lab Routine Mixed hyperlipidemia (CMS/HCC) Expected: 05/19/2024 (Approximate), Expires:05/19/2025 NOMS HealthcareComment on above:Expected: 05/19/2024 (Approximate), Expires: 05/19/2025Start: 05-19-2024 End: 30-60-2642Jvwbsaa encounter khtwaudqi86/28/2024 2:00 PM EDT Office Visit [facility] [address] [place] [address] Azul Quezada, ORACIO [address] [facility] [place] [address] Screening for prostate cancer (Primary Dx); Smoker; Depression with anxiety; Mixed hyperlipidemia (CMS/HCC)[facility] FMComment on above:Screening for prostate cancer (Primary Dx); Smoker; Depression with anxiety; Mixed hyperlipidemia (CMS/HCC)Start: 05-19-2024 End: 42-59-3460Ueovvwgr specific Ag [Mass/volume] in Serum or PlasmaPSA Lab Routine Screening for prostate cancer Expected: 05/19/2024 (Approximate), Expires: 05/19/2025[facility] HealthcareComment on above:Expected: 05/19/2024 (Approximate), Expires: 05/19/2025Start: 05-19-2024 End: 32-05-9948Tvjbdhlpdo complete panel - UrineUrinalysis with reflex microscopic (clean catch) Lab Routine Smoker Expected: 05/19/2024 (Approximate), Expires: 05/19/2025NOMS HealthcareComment on above:Expected: 05/19/2024 (Approximate), Expires: 05/19/2025Start: 69-55-8609Gvnjbenaz vaccination Influenza Vaccine (#1)NOMS HealthcareComment on above:Postponed from 2023 (Patient Refused)Start: 01-14-2024 End: 74-65-4304PW Carotid arteries - bilateralVas carotid duplex bilateral Vascular Ultrasound Routine Internal carotid artery stenosis, right Expected: 01/14/2024, Expires: 01/13/2025[facility] Work Phone: Comment on above:Expected: 01/14/2024, Expires: 01/13/2025Start: 11-13-2023 End: 23-53-9777Myvufsh encounter oebpoafmi61/22/2024 9:40 AM EST Office Visit [facility] [address] [place] [address] Azul Quezada, CANAL EQUIPMENT MECHANIC [address] [place] [phone] [facility] FMStart: 10-30-2023 End: 55-24-7773Qknwdvk encounter ealvihckk11/08/2024 10:00 AM EST Office Visit [facility] [address] [place] [address] Azul Quezada, CANAL EQUIPMENT MECHANIC [address] [place] [address] [facility] FMStart: 35-57-5723Lwtvxffru vaccinationInfluenza Vaccine (#1)[facility] HealthcareStart: 65-53-8028Ayduu BMI ScreeningAdult BMI ScreeningProAdams County Regional Medical Centerca Health SystemStart: 80-34-8075Epmsijd ScreeningTobacco ScreeningProAdams County Regional Medical Centerca Health SystemStart: 20-12-9173Vhascjrajo ScreeningDepression ScreeningProAdams County Regional Medical Centerca [facility] SystemStart: 22-19-1848Ivtvrlvljiujgh of varicella zoster vaccineZoster (Shingles) Vaccine (1 of 2)[facility] SystemStart: 32-59-3801GCkN,Tdap and Td Vaccines (1 - Tdap)DTaP,Tdap and Td Vaccines (1 - Tdap)[facility] SystemStart: 56-48-7439Udxrbleccqul Vaccine: 65+ Years (1 of 2 - PCV)Pneumococcal Vaccine: 65+ Years (1 of 2 - PCV)[facility] HealthcareStart: 1960Medicare Annual Wellness (AWV)Medicare Annual Wellness (AWV)[facility] HealthcareStart: 31-98-7487Tczhffjkm for malignant neoplasm of colonNOWY HealthcareStart: 42-97-0521Imzrnhrme for malignant neoplasm of lungLung Cancer Screening Shared Decision MakingBEAVER VALLEY HOSPITAL HealthcareBLOOD CULTURE 1BLOOD CULTURE 1 Lab Routine 10/21/2023 12:27 PM ESTBEAVER VALLEY HOSPITAL HealthcareBLOOD CULTURE 2BLOOD CULTURE 2 Lab Routine 10/21/2023 12:30 PM ESTWashington University Medical Center Immunizations Immunization DateImmunizationNotesCare ErvzvnsvLsulrxnp39-37-8152YNGANAA - Respiratory syncytial virus (RSV), vaccine, bivalent, protein subunit RSV prefusion F, diluent reconstituted, 0.5 mL, PFLisa Aichholz CANAL EQUIPMENT MECHANIC Work Phone: [facility] CenterAckjkyxnku70-22-6688Xfvohbfol, injectable, Madin Barnard Canine Kidney, preservative free, quadrivalentLisa Aichholz CANAL EQUIPMENT MECHANIC Work Phone: [facility] CenterBixwmosubb81-52-4376ymzcpnqsk virus vaccine, unspecified formulationLisa Aichholz CANAL EQUIPMENT MECHANIC Work Phone: [facility] CenterCorhwhgico39-80-2216hakxtipfs, live, intranasal, quadrivalentLisa Aichholz CANAL EQUIPMENT MECHANIC Work Phone: [facility] CenterOaozbvumxz04-12-0236kijjkmnvm virus vaccine, unspecified formulationGeneric ProviderWashington University Medical CenterSpuqnkqtyv79-81-3854pplfuqbto, high dose seasonal, preservative-freeLisa Aichholz CANAL EQUIPMENT MECHANIC Work Phone: [facility] CenterHeaszsdyqp72-38-2909coopndnhh, injectable, quadrivalent, preservative freeLisa Aichholz CANAL EQUIPMENT MECHANIC Work Phone: [facility] Gfwiagdztr35-63-0153vzkpnvmto virus vaccine, unspecified formulationEmAdventist Medical Center System Payers DatePayer CategoryPayerPolicy ID2019MedicaidMEDICAID [facility] MEDICAID [id number] 2019-Present [phone] [address] [place] [address] [id number] 1994Medicare [id number] [id number] 1960 [id number] 2.16.840.1.942566.3.57[id number] 2.16.840.1.919069.3.57[id number] 2.16.840.1.163112.3.57[id number] 2.16.840.1.388904.3.57[id number] 2.16.840.1.527530.3.57[id number] 2.16.840.1.850132.3.57[id number] 2.16.840.1.829865.3.57[id number] 2.16.840.1.910416.3.57[id number] 2.16.840.1.570240.3.57[id number] 2.16.840.1.086654.3.57[id number] 2.16.840.1.110966.3.57[id number] 2.16.840.1.900794.3.57[id number] 2.16.840.1.416467.3.57[id number] 2.16.840.1.069160.3.57[id number] 2.16.840.1.485681.3.579.2.1286 [id number] 1960Unknown [id number] Social History DateTypeDetailFacilityTobacco smoking status NHISTobacco smoking consumption unknownNOMS HealthcareStart: 92-06-2448Pkn Assigned At BirthNot on fileNOWY HealthcareStart: 10-30-2023 End: 16-14-9490Nfrmgg identityNot on fileBEAVER VALLEY HOSPITAL HealthcareStart: 81-10-8616Adleeuz smoking status NHISEx-smokerNOMS HealthcareStart: 03-22-1984 End: 41-38-5541Emmmknr of tobacco useCurrent smokerNOMS HealthcareStart: 03-22-1984 End: 54-95-7166Cboxvwf of tobacco useCigarette SmokerNOMS HealthcareStart: 10-30-2023 End: 42-07-7304Rvllzvuwvg smoked current (pack per day) - Lfpepvfn7FWSO HealthcareStart: 02-08-2021 End: 59-94-4931Weqfwga use and exposureSmokeless tobacco non-userNOMS Healthcare Start: 10-30-2023 End: 84-78-7673Kfqisqw intakeCurrent drinker of alcohol (finding)[facility] Start: 71-19-6748Jgwnniy Commentcoffee more than 4 cups per dayNOMS [...] to you have a drink containing alcohol? NeverNOGeneral Leonard Wood Army Community HospitalStart: 83-40-2717Kzx many standard drinks containing alcohol do you have on a typical day?Patient does not drinkNOMS HealthcareDo you feel stress - tense, restless, nervous, or anxious, or unable to sleep at night because yourmind is troubled all the time - these days [OSQ]Only a littleNOMS Healthcare(I/We) worried whether (my/our) food would run out before (I/we) got money to buy more.Never trueNOGeneral Leonard Wood Army Community HospitalStart: 25-91-6869Fcjnbqs smoking status NHISSmokes tobacco dailyPremier Health SystemStart: 69-30-5592Vjgurwxlb beverage intakeEx-drinker (finding)[facility] SystemAre you now , , , , never or living with a partner?Living with partnerPremier Health SystemHow often to you have a drink containing alcohol? Monthly or lessProUniversity Of South [facility] Health SystemDo you feel stress - tense, restless, nervous, or anxious, or unable to sleep at night because yourmind is troubled all the time - these days [OSQ]Not at allCritical access hospitaltart: 19-20-3072Aazlekp Commentquit 4 days ago as of 12/21/20[facility] Medical Equipment Procedure CodeEquipment CodeEquipment Original TextEquipment IdentifierDatesStnt [facility] 8/6mm 6fr 30mm 135cm - [id number]: 06-12-2020 Goals DatePatient GoalDesired Activity/StatePersonal health goalComment on above: Evaluation of progress towards goal: Return home with self care and family support. Functional Status GenyUebwzgutxvRlwkclUsbnygfw01-42-5563Ueafrwz Health Questionnaire 2 item (PHQ- 2) [Reported][facility] Clinical Notes 10-30-2023 to 05-17-2025 Note Date & BhllKqueNblqfxik64-07-1843 History of Present illness Narrative* Azul Quezada NP - 05/17/2025 5:24 PM EDTAssociated Problem(s): Pain of right hip Check xray and go from there * RACHEL ACEVEDO - 05/17/2025 3:20 PM EDT Request for [facility] pulmonology 02 at 2L [...] tightness [facility] * Azul Quezada NP - 05/17/2025 3:20 PM EDT Images from the original note were not included. Sam Carrasco is a 64 y.o. male presents with chief complaint of Hospital Follow-up HPI: TCM fu: COPD exacerbation Admitted to [facility], sent home atb, steroids, oxygen [...] (HCC) COVID-19 07/2019 CVA (cerebral vascular accident) (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 and needs a referral to [facility] Chest CT 09/14 new lung masses Current meds: albuterol, Ensifentrine, symbicort, spiriva respimat * Azul Quezada NP - 05/17/2025 6:52 AM EDTAssociated Problem(s): Terry's No current med use for this documented in this encounterWashington University Medical CenterXizvkhnxga94-44-1961 Instructions* Patient Instructions* Azul Quezada NP - 05/17/2025 3:20 PM EDT Refer to dr jansen lung doctor Thuy Rai xray hip documented in this encounterWashington University Medical CenterMbgkegyool77-02-5046 History of Present illness Narrative* RACHEL ACEVEDO [...] (CMS/HCC) COVID-19 07/2019 CVA (cerebral vascular accident) ([facility]) Degenerative cervical disc Depression with anxiety Insomnia Marijuana abuse 10/30/2023 Multiple pulmonary nodules Neck mass 2014 Osteoarthritis Papule of skin 11/13/2023 Pigmented skin lesion of uncertain nature Rheumatic fever Stroke (CMS/HCC) 07/2020 Testicle lump Tourette's ([facility]/HCC) Vertebral artery occlusion Vocal cord polyp [...] 02/15/2025 7:20 AM EDTAssociated Problem(s): Centrilobular emphysema ([facility]/HCC) Continue with pulmonology Continue with inhaler albuterol, we can try to help with PA Chest CT 09/14 new lung masses * Azul Quezada NP - 02/15/2025 7:19 AM EDTAssociated Problem(s): Depression with anxiety Current med: fluoxetine * Azul Quezada NP - 02/15/2025 7:18 AM EDTAssociated Problem(s): CVA (cerebral vascular accident) ([facility]/HCC) No focal weakness Continues as directed by neurology documented in this encounterWashington University Medical CenterSffsiwkxvi45-93-6710 Instructions* Patient Instructions* Azul Quezada NP - 02/15/2025 1:40 PM EDT Return the patient assistance medication forms and we can try to help you get the medications (inhaler) documented in this encounterWashington University Medical CenterIdjrugvyrd79-48-9922 History of Present illness Narrative* Azul Quezada NP - 11/16/2024 3:03 PM ESTAssociated Problem(s): COPD with acute exacerbation ([facility]) Add atb, steroids, check cxr Pt needs [...] artery stenosis Calcified lymph nodes Centrilobular emphysema ([facility]/HCC) COVID-19 07/2019 CVA (cerebral vascular accident) ([facility]) Degenerative cervical disc Depression with anxiety Insomnia Marijuana abuse 10/30/2023 Multiple pulmonary nodules Neck mass 2013 Osteoarthritis Papule of skin 11/13/2023 Pigmented skin lesion of uncertain nature Rheumatic fever Stroke ([facility]) 07/2020 Testicle lump Tourette's ([facility]) Vertebral artery occlusion Vocal cord polyp Past [...] as directed by neurology documented in this [facility]02-25-2025 Instructions* Patient Instructions* Azul Quezada NP - 11/16/2024 2:00 PM EST Get back into see dr white No dose changes in your meds Chest xray documented in this [facility]11-25-2024 History of Present illness Narrative* Azul Quezada [...] artery stenosis Calcified lymph nodes Centrilobular emphysema ([facility]) COVID-19 07/2019 CVA (cerebral vascular accident) ([facility]) Degenerative cervical disc Depression with anxiety Insomnia Marijuana abuse 10/30/2023 Multiple pulmonary nodules Neck mass 2013 Osteoarthritis Papule of skin 11/13/2023 Pigmented skin lesion of uncertain nature Rheumatic fever Stroke ([facility]) 07/2020 Testicle lump Tourette's ([facility]) Vertebral artery occlusion Vocal cord polyp Past [...] of the risks of continued smoking: stroke, [place], all forms of cancer, lung disease, and [...] Relevant Orders Flu vaccine, MDCK, quadrivalent, PF ([id number]) (Flucelvax single dose syringe) (Completed) Former smoker [...] of the risks of continued smoking: stroke, [place], all forms of cancer, lung disease, and [...] Insomnia Continue with trazodone documented in this encounterWashington University Medical CenterNzxlnxbguu29-14-8347 Instructions* Patient Instructions* Azul Quezada NP - 08/16/2024 1:20 PM EST Great job at quitting smoking Keep follow up with dr white as directed Follow up with Vascular doctor [place] as well as directed documented in this [facility]09-09-2024 History of Present illness Narrative* Ibeth Torres [...] fever Stroke (CMS/HCC) 07/2020 Testicle lump Tourette's ([facility]) Vertebral artery occlusion Vocal cord polyp Social [...] Positives noted above. Remainder are negative per [facility] guidelines. OBJECTIVE: Visit Vitals BP 110/66 [...] you, Mars Torres DO documented in this encounterWashington University Medical CenterYywswgzywy01-34-8210 History of Present illness Narrative* Azul Quezada [...] (CMS/HCC) COVID-19 07/2019 CVA (cerebral vascular accident) ([facility]) Degenerative cervical disc Depression with anxiety Insomnia Marijuana abuse 10/30/2023 Multiple pulmonary nodules Neck mass 2014 Osteoarthritis Papule of skin 11/13/2023 Pigmented skin lesion of uncertain nature Rheumatic fever Stroke ([facility]/HCC) 07/2020 Testicle lump Tourette's (CMS/HCC) Vertebral [...] monitor at this time documented in this encounterWashington University Medical CenterZxkppxemkr16-54-8156 Miscellaneous Notes* Telephone Encounter - Grace Moore [...] went to but inbox was full and greeting card writer was unable to leave message reminder [...] if he could have it done in [place] at the [facility] facility there because he doesn't have a car and stated it would be impossible for him to make it to [place]. Chief I Dispatcher confirmed patient had central scheduling phone number to get the scans scheduled. * Telephone Encounter - Grace Moore RN - 01/14/2024 8:50 AM EDT Called patient and got VM but it was full so greeting card writer was unable to leave message reminding patient of imaging that is due. * Telephone Encounter - Grace Moore RN - 01/14/2024 8:50 AM EDT Attempted to call patient and got voicemail but greeting card writer was unable to leave message due to it being full. Will try again later and send letter with order via mail. * Telephone Encounter - Grace Moore RN - 01/14/2024 8:50 AM EDT Attempted to call patient and got voicemail but greeting card writer was unable to leave message due to it being full. Letter and order mailed to address on file. Will follow up in 1 month. * Telephone Encounter - Grace Moore RN - 01/14/2024 8:50 AM EDT Attempted to call patient and got voicemail but greeting card writer was unable to leave message due to it being full. [facility] Tele[facility] encounter Note* Telephone Encounter - Grace Moore RN - 01/14/2024 8:50 AM EDT Per January 2024 recall, patient is due for routine CUS imaging per Dr. Terrell. Please call to remind patient and provide central scheduling number if needed. Will call with results once completed. [facility]04-24-[facility]24 Telephone encounter Note* Telephone Encounter - Grace Moore RN - 01/14/2024 8:50 AM EDT Called patient, call went to but inbox was full and greeting card writer was unable to leave message reminder for imaging. Will try again later. [facility]04-24-2024 Telephone encounter Note* Telephone Encounter - Ashwini Jones - 01/14/2024 8:50 AM EDT Received call today 01/14/24 1:05 from patient in regard to previous message and I informed him of clinical staff's messages below - he voiced understanding and I provided him with Central Scheduling phone# to schedule imaging. [facility]04-24-[facility]24 Telephone encounter Note* Telephone Encounter - Grace Moore RN - 01/14/2024 8:50 AM EDT Called patient and reminded of imaging that is due. He stated understanding and asked if he could have it done in [place] at the [facility] facility there because he doesn't have a car and stated it would be impossible for him to make it to [place]. Chief I Dispatcher confirmed patient had central scheduling phone number to get the scans scheduled. [facility]04-24-2024 Telephone encounter Note* Telephone Encounter - Grace Moore RN - 01/14/2024 8:50 AM EDT Called patient and got but it was full so greeting card writer was unable to leave message reminding patient of imaging that is due. [facility]04-24-2024 Telephone encounter Note* Telephone Encounter - Grace Moore RN - 01/14/2024 8:50 AM EDT Attempted to call patient and got voicemail but greeting card writer was unable to leave message due to it being full. Will try again later and send letter with order via mail. [facility] [employer] [id number] Telephone encounter Note* Telephone Encounter - Grace Moore RN - 01/14/2024 8:50 AM EDT Attempted to call patient and got voicemail but greeting card writer was unable to leave message due to it being full. Letter and order mailed to address on file. Will follow up in 1 month. [facility] [employer] [id number] Telephone encounter Note* Telephone Encounter - Grace Moore RN - 01/14/2024 8:50 AM EDT Attempted to call patient and got voicemail but greeting card writer was unable to leave message due to it being full. [facility] [employer] [id number] History of Present illness Narrative* Azul Quezada [...] artery stenosis Calcified lymph nodes Centrilobular emphysema ([facility]/HCC) COVID-19 07/2019 CVA (cerebral vascular accident) ([facility]) Degenerative cervical disc Depression with anxiety Insomnia Marijuana abuse 10/30/2023 Multiple pulmonary nodules Neck mass 2013 Osteoarthritis Papule of skin Pigmented skin lesion of uncertain nature Rheumatic fever Stroke ([facility]) 07/2020 Testicle lump Tourette's ([facility]) Vertebral artery occlusion Vocal cord polyp Past [...] PSA level- Primary documented in this encounter [facility]* Diagnosis Depression with anxiety Dysthymic disorder Insomnia, unspecified Mixed hyperlipidemia (CMS/HCC) Mixed hyperlipidemia documented in this encounter [facility]* Diagnosis Internal carotid artery stenosis, right- Primary [facility] Influenza- Primary Influenza with [...] facility Routine general medical examination at a [facility] care facility Depression with anxiety- Primary [...] [facility] HealthcareInstructionsNot on filedocumented in this encounterMercy Health St. [facility] HospitalReason for referral (narrative)* Consultation (Routine) - Pending ReviewSpecialtyDiagnoses / ProceduresReferred By ContactReferred To Contact General Surgery Diagnoses Sessile colonic polyp Procedures [place] OFFICE/OUTPATIENT [facility] 60 MINUTES Azul Quezada, ORACIO [address] [place] [address] Ibeth Torres DO [address] [facility] [address] [place] [address] Referral IDStatusReasonStart DateExpiration DateVisits RequestedVisits [id number] Review Specialty Services Required /[id number] [facility] Summary Purpose Family History No [...] Vas carotid duplex bilateral Andrew Terrell MD [address] [place] [address], [address] [place] [address] Referral IDStatusReasonStart DateExpiration DateVisits RequestedVisits [id number] Review/ Additional Source Comments (unrecognized sect ion and content) No Status Records FoundNo Status Records FoundNo Status Records FoundNo Status Records FoundNo Status Records FoundNo Status Records Found INFORMATION SOURCE (unrecogn ized section and content) DATE CREATED AUTHOR 09/04/2019 [facility] DATE CREATED AUTHOR AUTHOR'S ORGANIZ ATION 09/30/2022 [facility] DATE CREATED AUTHOR AUTHOR'S ORGANIZ ATION 05/19/2025 [facility] DATE CREATED AUTHOR AUTHOR'S ORGANIZ ATION 07/14/2025 [facility] DATE CREATED AUTHOR AUTHOR'S ORGANIZ ATION 07/14/2025 [facility] DATE CREATED AUTHOR AUTHOR'S ORGANIZ ATION 07/14/2025 [facility] Care Teams (unrecognized sec tion and content) Team MemberRelationshipSpecialtyStart DateEnd Date Kiko Zurita MD PCP - GeneralFamily Medicine04/07/23 Azul Quezada NP [address] [place] [address] Referring PhysicianNurse Practitioner04/07/23Team MemberRelationshipSpecialty Start DateEnd Date Kiko Zurita MD [address] [place] [address] [facility] - [facility]10/24/23 Azul Quezada NP [address] [place] [address] Referring PhysicianNurse Practitioner04/07/23Team MemberRelationshipSpecialty Start DateEnd Date Kiko Zurita MD [address] [place] [address] PCP - [facility] Medicine10/24/23 Azul Quezada NP [address] [place] [address] Referring PhysicianNurse Practitioner04/07/23Team MemberRelationshipSpecialty Start DateEnd Date Kiko Zurita MD [address] [place] [address] [facility] - [facility]10/24/23 Azul Quezada NP [address] [place] [address] Referring PhysicianNurse Practitioner04/07/23Team MemberRelationshipSpecialty Start DateEnd Date Kiko Zurita MD [address] [place] [address] PCP - Generalmily Medicine10/24/23 Azul Quezada NP [address] [place] [address] Referring PhysicianNurse Practitioner04/07/23Team MemberRelationshipSpecialty Start DateEnd Date Kiko Zurita MD [address] [place] [address] PCP - [facility]10/24/23 Azul Quezada NP [address] [place] [address] Referring PhysicianNurse Practitioner04/07/23Team MemberRelationshipSpecialty Start DateEnd Date Kiko Zurita MD [address] [place] [address] PCP - [facility]10/24/23 Azul Quezada NP [address] [place] [address] Referring PhysicianNurse Practitioner04/07/23Team MemberRelationshipSpecialty Start DateEnd Date Kiko Zurita MD [address] [place] [address] PCP - [facility]10/24/23 Azul Quezada NP [address] [place] [address] Referring PhysicianNurse Practitioner04/07/23Team MemberRelationshipSpecialty Start DateEnd Date Kiko Zurita MD [address] [place] [address] PCP - GeneralFamily Medicine10/24/23 Azul Quezada NP [address] [place] [address] Referring PhysicianNurse Practitioner04/07/23Team MemberRelationshipSpecialty Start DateEnd Date Kiko Zurita MD [address] [place] [address] PCP - [facility]10/24/23 Azul Quezada NP [address] [place] [address] Referring PhysicianNurse Practitioner04/07/23Team MemberRelationshipSpecialty Start DateEnd Date Kiko Zurita MD [address] [place] [address] PCP - GeneralFamily Medicine10/24/23 Azul Quezada NP [address] [place] [address] Referring PhysicianNurse Practitioner04/07/23Team MemberRelationshipSpecialty Start DateEnd Date Azul Quezada, MACHINE [facility] [address] [place] [address] PCP - GeneralNurse Xnxvmfiohrhr26/9/19Team MemberRelationshipSpecialtyStart Date End Date Kiko Zurita MD [address] [place] [address] PCP - [facility]10/24/23 Azul Quezada NP [address] [place] [address] [facility] Azul Quezada NP [address] [place] [address] Referring PhysicianNurse Practitioner04/07/23Team MemberRelationshipSpecialty Start DateEnd Date Kiko Zurita MD [address] [place] [address] PCP - [facility]10/24/23 Azul Quezada NP [address] [place] [address] [facility] Azul Quezada NP [address] [place] [address] Referring PhysicianNurse Practitioner04/07/23Team MemberRelationshipSpecialty Start DateEnd Date Kiko Zurita MD [address] [place] [address] PCP - [facility]10/24/23 Azul Quezada NP [address] [place] [address] PCP - [facility]10/29/24 Azul Quezada NP [address] [place] [address] Referring PhysicianNurse Practitioner04/07/23Te MemberRelationshipSpecialty Start DateEnd Date Kiko Zurita MD [address] [place] [address] PCP - [facility] Medicine10/24/23 Azul Quezada NP [address] [place] [address] PCP - [facility]10/29/24 Azul Quezada NP [address] [place] [address] Referring PhysicianNurse Practitioner04/07/23Te MemberRelationshipSpecialty Start DateEnd Date Kiko Zurita MD [address] [place] [address] [facility]CP - [facility]10/24/23 Azul Quezada NP [address] [place] [address] PCP - [facility]10/29/24 Azul Quezada NP [address] [place] [address] Referring PhysicianNurse Practitioner04/07/23Team MemberRelationshipSpecialty Start DateEnd Date Kiko Zurita MD [address] [place] [address] PCP - GeneralFamily Medicine10/24/23 Azul Quezada NP [address] [place] [address] PCP - [facility]10/29/24 Azul Quezada NP [address] [place] [address] Referring PhysicianNurse Practitioner04/07/23Team MemberRelationshipSpecialty Start DateEnd Date Kiko Zurita MD [address] [place] [address] PCP - GeneralFamily Medicine10/24/23 Azul Quezada NP [address] [place] [address] PCP - [facility]10/29/24 Azul Quezada NP [address] [place] [address] Referring PhysicianNurse Practitioner04/07/23Team MemberRelationshipSpecialty Start DateEnd Date Kiko Zurita MD [address] [place] [address] PCP - GeneralFamily Medicine10/24/23 Azul Quezada NP [address] [place] [address] PCP - [facility]10/29/24 Azul Quezada NP [address] [place] [address] Referring PhysicianNurse Practitioner04/07/23Team MemberRelationshipSpecialty Start DateEnd Date Kiko Zurita MD [facility]CP - [facility]10/24/23 Azul Quezada NP [address] [place] [address] PCP - [facility]10/29/24 Azul Quezada [...] BE BASED ON THE PRIMARY CLINICAL RECORDS. [employer] provides no warranty or guarantee of the accuracy or completeness of information in this document.
--- NOTE | 2025-09-02 15:05 | XR_ITS ---
[place] [id number] Patient Name: JUANITA KRAMER MRN: [id number] date: 1960 Sex: M Assigned Patient Location: CARD Current Patient Location: CARD Accession/Order Number: [id number] Exam Date: 09/02/2025 16:18 Report Date: 09/02/2025 16:53 At the request of: JAYDEN JC NP Procedure: XR humerus LT XR humerus LT 09/02/2025 4:21 PM SIGNS AND SYMPTOMS: ^PAIN OF LEFT UPPER EXTREMITY M79.602 PROTOCOL: Frontal and lateral radiographs of the left humerus COMPARISON: None FINDINGS: No fracture. No soft tissue swelling. The visualized left shoulder and elbow are intact. Degenerative changes are noted in the acromioclavicular joint. Visualized left hemithorax is grossly intact. XR/XR humerus LT IMPRESSION: No fracture. Impression dictated by: Carlos [place] M.D. 09/02/2025 4:53 PM Dictation Location: [place] [address] Electronically authenticated by: [id number] Y Date: 09/02/2025 16:53
--- NOTE | 2025-09-02 15:05 | XR_ITS ---
[facility] [place] [address] Patient Name: JUANITA KRAMER MRN: [id number] date: 1960 Sex: M Assigned Patient Location: CARD Current Patient Location: CARD Accession/Order Number: [id number] Exam Date: 09/02/2025 16:18 Report Date: 09/02/2025 16:52 At the request of: JAYDEN JC NP Procedure: XR forearm LT 2V XR forearm LT 2V 09/02/2025 4:21 PM SIGNS AND SYMPTOMS: ^Pain left upper extremity PROTOCOL: Frontal and lateral radiographs of the left forearm COMPARISON: None FINDINGS: The bones are in anatomic alignment. There is no evidence of fracture or dislocation. No significant soft tissue swelling. The visualized wrist and elbow are grossly intact. XR/XR forearm LT 2V IMPRESSION: No fracture. Impression dictated by: Carlos [place] M.D. 09/02/2025 4:52 PM Dictation Location: [place] [address] Electronically authenticated by: [id number] Y Date: 09/02/2025 16:52
[2025-09-02 15:16] LABS: Anion Gap 8.4; Blood Urea Nitrogen 8.0 mg/dL (7.0-18.0); Calcium 9.3 mg/dL (8.5-10.1); Carbon Dioxide 31.3 mmol/L (21.0-32.0); Chloride 101 mmol/L (98-107); Estimated GFR (African America >60 (>=60 mL/min/1.73m^2); Estimated GFR (Non-African Ame >60 (>=60 mL/min/1.73m^2); Glucose 102 mg/dL (74-106); Potassium 3.7 mmol/L (3.5-5.1); Sodium 137 mmol/L (136-145)
[2025-09-02] MEDS: ALBUTEROL SULFATE 2.5 MG/3 ML VIAL NEB IH (15:36)
[2025-09-02 15:39] VITALS: PULSE 101; O2SAT 92
== END 2025-09-02 14:41 | disposition home or self-care (01) ==
PROVIDERS: PCP Nurse Practitioner; Visit Provider Nurse Practitioner
DX: R60.0 Localized edema (principal); M79.602 Pain in left arm; J43.2 Centrilobular emphysema
CPT/HCPCS: 36415; 73060; 73090; 80048; 94060; 94726; 94729

== ENCOUNTER 2025-09-06 20:31 | Emergency (ER) | payer MEDICARE, SELFPAY ==
--- OUTSIDE RECORDS SUMMARY | 2025-08-25 13:30 | XMS_ITS | Encounter Summary ---
Author [facility] tem Address [id number] [address] [place] [address] Care Team Providers Care Supply Chain Buyer Name Role Phone Azul Quezada APRN-[facility] Primary Care Provider Reason for Referral * Vascular (Routine) - AuthorizedSpecialtyDiagnoses / ProceduresReferred By ContactReferred To Contact Diagnoses Carotid stenosis, right Procedures Vas carotid duplex bilateral Anson Dyer MD [address] [place] [address] [address] [place] [address] Phone: tel: fax: Referral IDStatusReasonStart DateExpiration DateVisits RequestedVisits [id number]/4/202512/4/202611 Encounter Details DateTypeDepartmentCare Team (Latest Contact Info)Physqdelrme72/04/2025 1:30 PM ESTOffice Visit [facility] Department of [address] [place] [address] Andrew Terrell MD [address] [place] [address] [address] [place] [address] Carotid stenosis, right (Primary Dx); Internal carotid artery stenosis, right; Cerebrovascular accident (CVA) due to stenosis of right carotid artery ([facility]) Social History Tobacco UseTypesPacks/DayYears UsedDateSmoking Tobacco: Every [...] relatives?Once a week06/10/2020How often do you attend worship or denominational services?Never06/10/2020Do you belong to any clubs or organizations such as worship groups, unions, fraternal or athletic groups, or school groups?No 06/10/2020How often do you attend meetings of the clubs or organizations you belong to?Never06/10/2020Are you , , , , never , or living with a partner?Living with orfldkl3206/10/2020PHQ-2AnswerDate RecordedTotal Yasjx429Fin[facility] [place] of Occupational Health - Occupational Stress QuestionnaireAnswerDate [...] a part of a household?No07/08/2025hildcareAnswerDate RecordedChildcareUnknown 03/03/2019EmploymentAnswerDate DbqullhpJzhueseuqeFmfgpbf94/12/2019Hunger ScreeningAnswerDate RecordedWithin the past 12 months we worried whether our food would run out before we got money to buy more.Never True07/08/2025Within the past 12 months the food we bought just didn't last and we didn't have money to get more.Never True07/08/2025Purpose - LifeAnswerDate RecordedPurpose and direction in jsmrSxebzdm02/26/2021ex and Gender InformationValueDate Recorded Sex Assigned at BirthNot on fileLegal SinJahe0004/27/2015 11:32 AM EDTGender IdentityNot on fileSexual OrientationNot on filedocumented as of this encounter Last Filed Vital Signs Vital SignReadingTime TakenCommentsBlood Bqgrncqz295/7408/25/2025 1:27 PM EST Wezxj919008/25/2025 1:27 PM ESTTemperature--Respiratory Rate--Oxygen Saturation-- Inhaled Oxygen Concentration--Usvkzh96.7 kg (206 lb 9.6 oz)08/25/2025 1:27 PM ZGOAtqdhx696.4 cm (6' 0.99 )08/25/2025 1:27 PM ESTBody Mass Index27.26110/26/2024 1:27 PM ESTdocumented in this encounter Plan of Treatment NameTypePriorityAssociated DiagnosesOrder ScheduleVas carotid duplex bilateral Vascular UltrasoundRoutine Carotid stenosis, right Expected: 08/25/2025, Expires: 08/25/2026documented as of this encounter Goals GoalPatient Goal TypeAssociated ProblemsRecent ProgressPatient-Stated?Author Safe Discharge Jaki Mock, RAJEEV Note: Evaluation of progress towards goal: safe transition to SNF rehab for strengthening and rehab s/p stroke documented as of this encounter Visit Diagnoses Diagnosis Carotid stenosis, right- Primary Occlusion and stenosis of carotid artery without mention of cerebral infarction Internal carotid artery stenosis, right Cerebrovascular accident (CVA) due to stenosis of right carotid artery ([facility]) documented in this encounter Additional Health Concerns AssessmentNoted TimePHQ-9 Depression Total Score: 1:26 PM EST documented as of this encounter Care Teams Team MemberRelationshipSpecialtyStart DateEnd Date Azul Quezada, CHRISTINA-PLASTIC PANEL INSTALLER PCP - GeneralNurse Cmnhpbzafnww18/9/19documented as of this encounter
[2025-09-06] VITALS (26 sets, daily range): BP systolic 129–154; BP diastolic 68–108; PULSE 71–115; TEMP 36.9; O2SAT 92–99; BMI 26.3
--- NOTE | 2025-09-06 21:06 | ED.SOB1 ---
HPI - SOB/Dyspnea General Chief Complaint: Shortness of Breath/Dyspnea Stated Complaint: SOB Time Seen by Provider: 09/06/25 20:36 Source: patient Mode of arrival: ambulance Limitations: physical limitation Limitations comment: left side deficit from previous stroke History of Present Illness MD elicited complaint: shortness of breath and cough Pertinent past history: COPD and pneumonia Onset (ago): day(s) Timing: constant and progressively worsening Severity: moderate Exacerbating factors: lying flat, movement, coughing and talking Relieving factors: bronchodilators, upright position and medication Known history of: COPD Associated symptoms: cough and sputum production Treatment prior to arrival: oxygen (Patient is chronically on oxygen) and bronchodilator Related Data Home oxygen amount: 4 liters Home Medications ?Medication ?Instructions ?Recorded ?Confirmed aspirin 81 mg tablet,delayed 81 mg PO DAILY previous stroke 09/21/23 08/22/25 release atorvastatin 40 mg tablet 40 mg PO .qhs 09/21/23 08/22/25 trazodone 50 mg tablet 50 mg PO .QHS 09/21/23 08/22/25 ticagrelor 90 mg tablet 90 mg PO Q12H 08/11/25 08/22/25 fluoxetine 20 mg capsule 20 mg PO QDAY 08/22/25 08/22/25 sodium chloride 0.65 % nasal drops 2 drp intranasal QID PRN dry nasal 08/22/25 08/22/25 ([place] Saline) passages Previous Rx's ?Medication ?Instructions ?Recorded albuterol sulfate 90 mcg/actuation 2 inh inhalation Q4H PRN shortness 05/11/25 aerosol inhaler of breath or wheezing #1 g fluticasone 250 mcg-salmeterol 50 1 inh inhalation BID #60 ea 05/11/25 mcg/dose blistr powdr for inhalation (Advair Diskus) ipratropium 0.5 mg-albuterol 3 mg 3 ml inhalation Q4H PRN shortness 05/11/25 (2.5 mg base)/3 mL nebulization of breath or wheezing #180 mL soln losartan 25 mg tablet 25 mg PO DAILY #30 tabs 05/11/25 prednisone 20 mg tablet 20 mg PO .as directed #8 tabs 08/15/25 furosemide 20 mg tablet (Lasix) 20 mg PO DAILY #3 tabs 08/22/25 Allergies Allergy/AdvReac Type Severity Reaction Status Date / Time bee venom protein (honey bee) Allergy Severe Anaphylaxis Verified 09/06/25 20:37 Review of Systems ROS Cardiovascular Reports: swelling of feet/ankles, shortness of breath with exertion and shortness of breath when lying down Respiratory Reports: shortness of breath, cough, wheezing and chest congestion Musculoskeletal Reports: limited range of motion (Left hemiparesis from prior CVA) PFSH REPLACED BY [facility] Medical History History of common carotid artery stent placement ?Z98.890 - Other specified postprocedural states (ICD-10) ?Z95.828 - Presence of other vascular implants and grafts (ICD-10) 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 - Polyp of vocal cord and larynx (ICD-10) Vertebral artery occlusion ?I65.09 - Occlusion and stenosis of unspecified vertebral artery (ICD-10) Tourette's ?F95.2 - Tourette's disorder (ICD-10) Testicle lump ?N50.89 - Other specified disorders of the male genital organs (ICD-10) Rheumatic fever ?I00 - Rheumatic fever without heart involvement (ICD-10) Pigmented skin lesion of uncertain nature ?L81.9 - Disorder of pigmentation, unspecified (ICD-10) Papule of skin ?R23.8 - Other skin changes (ICD-10) Osteoarthritis ?M19.90 - Unspecified osteoarthritis, unspecified site (ICD-10) Neck mass ?R22.1 - Localized swelling, mass and lump, neck (ICD-10) Multiple pulmonary nodules ?R91.8 - Other nonspecific abnormal finding of lung field (ICD-10) Marijuana abuse ?F12.10 - Cannabis abuse, uncomplicated (ICD-10) Insomnia ?G47.00 - Insomnia, unspecified (ICD-10) Degenerative cervical disc ?M50.30 - Other cervical disc degeneration, unspecified cervical region (ICD-10) CVA (cerebral vascular accident) ?I63.9 - Cerebral infarction, unspecified (ICD-10) COVID-19 ?U07.1 - COVID-19 (ICD-10) Centrilobular emphysema ?J43.2 - Centrilobular emphysema (ICD-10) Calcified lymph nodes ?I89.8 - Other specified noninfective disorders of lymphatic vessels and lymph nodes (ICD-10) Bilateral carotid artery stenosis ?I65.23 - Occlusion and stenosis of bilateral carotid arteries (ICD-10) Allergic rhinitis ?J30.9 - Allergic rhinitis, unspecified (ICD-10) Alcohol abuse ?F10.10 - Alcohol abuse, uncomplicated (ICD-10) Anxiety ?F41.9 - Anxiety disorder, unspecified (ICD-10) Cerebrovascular disease ?I67.9 - Cerebrovascular disease, unspecified (ICD-10) COPD (chronic obstructive pulmonary disease) ?J44.9 - Chronic obstructive pulmonary disease, unspecified (ICD-10) Depression, unspecified ?F32.A - Depression, unspecified (ICD-10) Dyslipidemia ?E78.5 - Hyperlipidemia, unspecified (ICD-10) 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 - Other diseases of vocal cords (ICD-10) Surgical History History of vocal cord polypectomy ?Z98.890 - Other specified postprocedural states (ICD-10) H/O adenoidectomy ?Z90.89 - Acquired absence of other organs (ICD-10) History of tonsillectomy ?Z90.89 - Acquired absence of other organs (ICD-10) Family History Mother Family history of CHF (congestive heart failure) Family history of COPD (chronic obstructive pulmonary disease) Hypertension Sister Family history of diabetes mellitus Father Family history of cancer Other Family history of myocardial infarction Social History Within the past year, how often did you have a drink containing alcohol: never Within the past year, how often did you have six or more drinks on one occasion: never Score interpretation: A score less than 4 is consistent with normal alcohol consumption. Smoking status: Former smoker Second hand tobacco smoke exposure: No Non-prescribed substance use: former substance user Non-prescribed substance use details: doesn't use anymore Previous occupational history: retired Known occupational exposures/hazards: No Highest level of school completed/degree received: high school graduate Are you now , , , , never or living with a partner: living with partner In a typical week, how many times do you talk on the telephone with family, friends, or neighbors: 3 or more times per week How often do you get together with friends or relatives: 3 or more times per week How often do you attend episcopal or synagogue services: 1-3 times per year Do you belong to any clubs or organizations such as episcopal groups unions, fraternal or athletic groups, or school groups: no Total score: 2 Score interpretation: A score of greater than or equal to 2 indicates the lowest level of social isolation. Little interest or pleasure in doing things: not at all Feeling down, depressed, or hopeless: not at all Feel stressed/tense/nervous/anxious/difficulty sleeping: not at all Due to disability, difficulty making decisions: No Do you think of yourself as: straight/heterosexual Gender Identity: male Exam Narrative Exam Narrative: Patient is awake, alert, oriented x 3. Able to talk in complete sentences Constitutional Vital Signs, click to edit/add: Last Vital Signs Temp 98.4 F 09/06/25 20:34 Pulse 92 H 09/07/25 00:00 Resp 17 09/06/25 21:40 BP 147/80 H 09/07/25 00:00 Pulse Ox 97 09/07/25 00:10 O2 Del Method Nasal Cannula 09/06/25 21:27 O2 Flow Rate 2 09/06/25 21:27 Documenting provider has reviewed patient's vital signs: yes Common normals: no apparent distress, oriented x3, healthy appearing, alert and well nourished General appearance: cooperative, comfortable, well developed and well hydrated Nutritional appearance: obese centrally obese Orientation/consciousness: Yes awake, Yes oriented to person, Yes oriented to place and Yes oriented to time HENMT Common normals: normocephalic, head/scalp atraumatic, hearing grossly normal bilaterally, external ears normal, EACs normal, nasal mucous membranes and turbinates normal, moist oral mucous membranes and oropharynx normal Head and scalp: normal to inspection, normocephalic and atraumatic Face and sinus: normal facial exam Nose: external nose normal and nares normal External ear: external ears normal External auditory canal: EACs normal Tympanic membrane: TMs normal bilaterally Mouth: oral and palatal mucosa normal Throat: posterior oropharynx normal Eye Common normals: PERRL, EOMs intact bilaterally, conjunctivae normal and no scleral icterus General eye: normal appearance of both eyes Eyelid: eyelids normal Conjunctiva: conjunctiva(e) normal Sclera: sclerae normal Cornea: corneas normal Pupil: PERRL EOM: EOM abnormal Neck & C-Spine Common normals: full ROM General: normal visual inspection Thyroid: thyroid normal Cervical spine: cervical ROM normal Lymph Lymphatic: no lymphadenopathy noted Chest Common normals: inspection of chest normal Respiratory Effort & inspection: able to speak in complete sentences, audible wheezes and prolonged expiratory phase Auscultation: wheezes and bronchovesicular breath sounds diffuse Cardio Common normals: no JVD and regular rhythm Rate: tachycardic Rhythm: regular rhythm GI Common normals: Normal to inspection, nondistended, normoactive bowel sounds present, soft to palpation, non-tender, no hepatosplenomegaly, no masses and no bruits Inspection: normal to inspection Auscultation: normoactive bowel sounds Palpation: soft Back & Pelvis Common normals: no CVA tenderness, thoracic and lumbar spine normal to inspection and no thoracic nor lumbar tenderness Extremity Common normals: no pedal edema (1+ pitting edema lower extremities bilaterally) General: normal exam except as noted (Left hemiparesis from prior CVA) Neuro Common normals: oriented x3 Sensorium/orientation: awake, alert, oriented to person, oriented to place and oriented to time Cranial nerves: other (left hemiparesis from prior CVA, pt does have some movement of LUE) Speech: speech normal Psych Common normals: mental status grossly normal, thought process normal, cooperative, affect normal, speech normal, activity/motor behavior normal, denies hallucinations, denies homicidal ideation and denies suicidal ideation Appearance: grossly normal Attitude: calm and engaged Activity/motor behavior: appropriate eye contact Speech: normal speech Mood and affect: euthymic mood Thought process: normal thought process Thought content: normal thought content Attention/concentration: attention grossly intact Memory/cognition: memory grossly intact Insight: insight good Judgement: judgment good Course Course Hospital Course: Patient was interviewed and examined. The appropriate ER workup was initiated. Patient is given DuoNeb nebulizer treatment. Patient was already given Solu-Medrol by EMS services. COVID and influenza swabs were obtained. Sputum culture was obtained. Patient was administered a dose of Lasix 20 mg IV push. Patient did have 1+ pitting edema to the lower extremities bilaterally. Patient states the last time he had pitting edema and received Lasix, this turned him around and significantly improved his breathing. After the DuoNeb and Lasix, patient was able to rest very comfortably on his oxygen via nasal cannula. Patient actually drifted off to sleep. Patient was monitored for over the next hour and noted to be sleeping very comfortably. Vital signs improved significantly and pulse ox remained at 97% or higher. Current vital signs at 2354 blood pressure 129/68, heart rate of 100, pulse ox 97%. Patient is feeling much better. I discussed the discharge diagnosis and plan of care for going home. Patient is agreement with this plan of care. Patient will be discharged to home in stable condition. He is to follow-up with his primary care physician. He is to return to the emergency department for any further problems or concerns. Vital Signs Vital signs: Vital Signs Temperature 98.4 F 09/06/25 20:34 Pulse Rate 114 H 09/06/25 20:34 Respiratory Rate 28 H 09/06/25 20:34 Blood Pressure 142/88 H 09/06/25 20:34 Pulse Oximetry 95 09/06/25 20:34 Oxygen Delivery Method Nasal Cannula 09/06/25 20:34 Oxygen Delivery Flow Rate 3 09/06/25 20:34 Temperature 98.4 F 09/06/25 20:34 Pulse Rate 92 H 09/07/25 00:00 Respiratory Rate 17 09/06/25 21:40 Blood Pressure 147/80 H 09/07/25 00:00 Pulse Oximetry 97 09/07/25 00:10 Oxygen Delivery Method Nasal Cannula 09/06/25 21:27 Oxygen Delivery Flow Rate 2 09/06/25 21:27 MDM - SOB/Dyspnea Differential Diagnosis Differential diagnosis: Likely acute exacerbation of chronic obstructive airways disease, congestive heart failure, community acquired pneumonia and other (COVID-19, influenza) Lab Data Attestation: I reviewed the patient's lab results. Labs: Lab Results 09/06/25 09/06/25 Range/Units 20:59 21:31 WBC 9.9 (4.0-11.0) 10^3/uL RBC 4.22 L (4.70-6.10) 10^6/uL Hgb 12.5 L (14.0-18.0) g/dL Hct 38.7 L (42.0-54.0) % MCV 91.7 (80.0-94.0) fL MCH 29.6 (25.9-34.0) pg MCHC 32.3 (29.9-35.2) g/dL RDW 12.7 (11.0-15.0) % Plt Count 344 (150-450) 10^3/uL MPV 9.6 (9.5-13.5) fL Seg Neuts % (Manual) 65.0 (43.0-75.0) Lymphocytes % (Manual) 12.0 L (20.5-60.0) % Monocytes % (Manual) 10.0 (1.7-12.0) % Eosinophils % (Manual) 13.0 H (0.9-7.0) % Basophils % (Manual) 0.0 L (0.2-2.0) % Neutrophils # (Manual) 6.43 (1.4-6.5) 10^3/uL Lymphocytes # (Manual) 1.18 L (1.20-3.80) 10^3/uL Monocytes # (Manual) 0.99 H (0.30-0.80) 10^3/uL Eosinophils # (Manual) 1.28 H (0.00-0.70) 10^3/uL Basophils # (Manual) 0.00 (0.00-0.10) 10^3/uL PT 10.3 (9.0-11.6) sec INR 0.98 APTT 25.3 (22.3-36.2) sec VBG pH 7.355 (7.330-7.430) VBG pCO2 52.0 (40.0-52.0) mmHg Sodium 142 (136-145) mmol/L Potassium 3.8 (3.5-5.1) mmol/L Chloride 104 (98-107) mmol/L Carbon Dioxide 31.1 (21.0-32.0) mmol/L Anion Gap 10.7 BUN 10.0 (7.0-18.0) mg/dL Creatinine 0.81 (0.70-1.30) mg/dL Est GFR ( Amer) >60 (>=60 mL/min/1.73m^2) Est GFR (Non-Af Amer) >60 (>=60 mL/min/1.73m^2) BUN/Creatinine Ratio 12.3 Glucose 108 H (74-106) mg/dL Calcium 9.2 (8.5-10.1) mg/dL Total Bilirubin 0.8 (0.2-1.0) mg/dL AST 19 (15-37) U/L ALT 27 (16-63) U/L Alkaline Phosphatase 73 (46-116) U/L Troponin I High Sens 6.5 (4.0-76.1) pg/mL NT-Pro-B Natriuret Pep 76.0 (<=900.0) pg/mL Total Protein 7.0 (6.4-8.2) g/dL Albumin 3.6 (3.4-5.0) g/dL Globulin 3.4 g/dL Albumin/Globulin Ratio 1.1 Imaging Data Chest x-ray: Radiologist's impression: ITS Impressions Chest X-Ray 09/06/25 21:07 IMPRESSION: No acute cardiopulmonary pathology. Impression dictated by: Carlos Knight M.D. 09/06/2025 9:35 PM Dictation Location: [employer] Electronically authenticated by: [id number] Y Date: 09/06/2025 21:35 ECG Data ECG interpretation date: 09/06/25 ECG interpretation time: 20:38 Interpretation: Sinus tachycardia, heart rate 114, NM interval 150, QRS 90, QT 328/QTc 395; occasional supraventricular premature complex, occasional ventricular premature complex, moderate ST depression Discharge Plan Discharge Chief Complaint: Shortness of Breath/Dyspnea Clinical Impression: Acute exacerbation of chronic obstructive pulmonary disease Patient Disposition: Home, Self-Care Time of Disposition Decision: 23:57 Condition: Good Mode of Transportation: Private Vehicle Prescriptions / Home Meds: No Action atorvastatin 40 mg tablet 40 mg PO .qhs trazodone 50 mg tablet 50 mg PO .QHS aspirin 81 mg tablet,delayed release (DR/EC) 81 mg PO DAILY fluticasone propion-salmeterol [Advair Diskus] 250-50 mcg/dose blister with device 1 inh inhalation BID Qty: 60 3RF albuterol sulfate 90 mcg/actuation HFA aerosol inhaler 2 inh INHALATION Q4H PRN (Reason: shortness of breath or wheezing) Qty: 1 3RF ipratropium-albuterol 0.5 mg-3 mg(2.5 mg base)/3 mL solution for nebulization 3 ml inhalation Q4H PRN (Reason: shortness of breath or wheezing) Qty: 180 3RF losartan 25 mg tablet 25 mg PO DAILY Qty: 30 2RF ticagrelor 90 mg tablet 90 mg PO Q12H prednisone 20 mg tablet 20 mg PO .as directed Qty: 8 0RF Rx Instructions: Take 1 tablet every day for 5 days then half tablet every day until you finish fluoxetine 20 mg capsule 20 mg PO QDAY [place] Saline 0.65 % drops 2 drp INTRANASAL QID PRN (Reason: dry nasal passages) furosemide [Lasix] 20 mg tablet 20 mg PO DAILY Qty: 3 0RF Print Language: Rw[place] Instructions: COPD (Chronic Obstructive Pulmonary Disease) (ED) Referrals: Azul Quezada NP [Primary Care Provider, Family Practice] - 1 week Discharge Date/Time: 09/07/25 00:52
--- NOTE | 2025-09-06 21:07 | ECG_ITS ---
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 Measurements Intervals [place] Rate: 114 P: 82 WA: 150 QRS: 78 QRSD: 90 T: 76 QT: 328 QTc: 395 Interpretive Statements 1120 Sinus tachycardia 1470 with occasional supraventricular premature complexes [address] depression 9150 abnormal ECG Compared to ECG 08/22/2025 12:46:58 ST (T wave) deviation now present Electronically Signed On 09-07-2025 20:51:49 EST by WALT AMAYA M.D.
--- NOTE | 2025-09-06 21:07 | XR_ITS ---
[place] [id number] Patient Name: JUANITA KRAMER MRN: [id number] date: 1960 Sex: M Assigned Patient Location: ER Current Patient Location: ER Accession/Order Number: [id number] Exam Date: 09/06/2025 21:10 Report Date: 09/06/2025 21:35 At the request of: LUAN RUBIO Procedure: XR chest 1V XR chest 1V 09/06/2025 9:19 PM SIGNS AND SYMPTOMS: ^cough, shortness of breath PROTOCOL: Frontal radiograph of the chest COMPARISON: 08/22/2025 FINDINGS: The trachea is midline. The heart and mediastinal structures are within normal limits. There is a similar 8mm calcified granuloma in the right mid chest. The lung parenchyma is otherwise clear. The bony thorax is intact. XR/XR chest 1V IMPRESSION: No acute cardiopulmonary pathology. Impression dictated by: Carlos Knight M.D. 09/06/2025 9:35 PM Dictation Location: [place] [address] Electronically authenticated by: [id number] Y Date: 09/06/2025 21:35
[2025-09-06 21:20] LABS: Hematocrit 38.7 % (42.0-54.0); Hemoglobin 12.5 g/dL (14.0-18.0); Mean Corpuscular HGB Conc 32.3 g/dL (29.9-35.2); Mean Corpuscular Hemoglobin 29.6 pg (25.9-34.0); Mean Corpuscular Volume 91.7 fL (80.0-94.0); Platelet Count 344 10^3/uL (150-450); Red Blood Count 4.22 10^6/uL (4.70-6.10); White Blood Count 9.9 10^3/uL (4.0-11.0)
[2025-09-06] MEDS: IPRATROPIUM/ALBUTEROL SULFATE 3 ML AMPUL.NEB IH (21:27)
[2025-09-06 21:28] LABS: INR 0.98; Partial Thromboplastin Time 25.3 sec (22.3-36.2); Prothrombin Time 10.3 sec (9.0-11.6)
[2025-09-06 21:30] LABS: Alanine Aminotransferase 27 U/L (16-63); Albumin Globulin Ratio 1.1; Albumin Level 3.6 g/dL (3.4-5.0); Alkaline Phosphatase 73 U/L (46-116); Anion Gap 10.7; Aspartate Amino Transferase 19 U/L (15-37); Blood Urea Nitrogen 10.0 mg/dL (7.0-18.0); Calcium 9.2 mg/dL (8.5-10.1); Carbon Dioxide 31.1 mmol/L (21.0-32.0); Chloride 104 mmol/L (98-107); Estimated GFR (African America >60 (>=60 mL/min/1.73m^2); Estimated GFR (Non-African Ame >60 (>=60 mL/min/1.73m^2); Globulin 3.4 g/dL; Glucose 108 mg/dL (74-106); Potassium 3.8 mmol/L (3.5-5.1); Sodium 142 mmol/L (136-145); Total Protein 7.0 g/dL (6.4-8.2)
[2025-09-06 21:38] LABS: NT Pro B Type Natriuretic Pept 76.0 pg/mL (<=900.0)
[2025-09-06] MEDS: FUROSEMIDE 20 MG/2 ML VIAL IVP (21:38)
[2025-09-06 21:44] LABS: Basophils Abs Manual 0.00 10^3/uL (0.00-0.10); Basophils Percent Manual 0.0 % (0.2-2.0); Eosinophils Absolute Manual 1.28 10^3/uL (0.00-0.70); Eosinophils Percent Manual 13.0 % (0.9-7.0); Lymphocytes Absolute Manual 1.18 10^3/uL (1.20-3.80); Lymphocytes Percent Manual 12.0 % (20.5-60.0); Monocytes Absolute Manual 0.99 10^3/uL (0.30-0.80); Monocytes Percent Manual 10.0 % (1.7-12.0); Segmented Neut Absolute Manual 6.43 10^3/uL (1.4-6.5); Segmented Neutrophils % Manual 65.0 (43.0-75.0)
[2025-09-06 21:52] LABS: PCO2 VBG 52.0 mmHg (40.0-52.0); pH VBG 7.355 (7.330-7.430)
--- OUTSIDE RECORDS SUMMARY | 2025-09-06 22:33 | XMS_ITS | Encounter Summary ---
Author Organization [place] tem Address [id number] [place] [address] Care Team Providers Care Automation Specialist Name Role Phone Azul Quezada APRN-CERTIFIED DRIVER EXAMINER Primary Care Provider Encounter Details DateTypeDepartmentCare Team (Latest Contact Info)Crosnjqwwya73/04/2025Travel Social History Tobacco UseTypesPacks/DayYears UsedDateSmoking Tobacco: Every [...] relatives?Once a week06/10/2020How often do you attend jainism or hinduism services?Never06/10/2020Do you belong to any clubs or organizations such as jainism groups, unions, fraternal or athletic groups, or school groups?No 06/10/2020How often do you attend meetings of the clubs or organizations you belong to?Never06/10/2020Are you , , , , never , or living with a partner?Living with wteoiub3406/10/2020PHQ-2AnswerDate RecordedTotal [place]hr662[place] of Occupational Health - Occupational Stress QuestionnaireAnswerDate [...] a part of a household?No07/08/2025hildcareAnswerDate RecordedChildcareUnknown 03/03/2019EmploymentAnswerDate CbvpngnkYkddelaahyUtpqgds31/12/2019Hunger ScreeningAnswerDate RecordedWithin the past 12 months we worried whether our food would run out before we got money to buy more.Never True07/08/2025Within the past 12 months the food we bought just didn't last and we didn't have money to get more.Never True07/08/2025Purpose - LifeAnswerDate RecordedPurpose and direction in znvvAfdjgji01/26/2021ex and Gender InformationValueDate Recorded Sex Assigned at BirthNot on fileLegal OghIwdt3304/27/2015 11:32 AM EDTGender IdentityNot on fileSexual OrientationNot on filedocumented as of this encounter Plan of Treatment Not on file documented as of this encounter Goals GoalPatient Goal TypeAssociated ProblemsRecent ProgressPatient-Stated?Author Safe Discharge Jaki Mock, RN Note: Evaluation of progress towards goal: safe transition to SNF rehab for strengthening and rehab s/p stroke documented as of this encounter Visit Diagnoses Not on filedocumented in this encounter Additional Health Concerns AssessmentNoted TimePHQ-9 Depression Total Score: 1:26 PM EST documented as of this encounter Care Teams Team MemberRelationshipSpecialtyStart DateEnd Date Azul Quezada APRN-CERTIFIED DRIVER EXAMINER PCP - GeneralNurse Lbwynkfleqmt86/9/19documented as of this encounter
--- OUTSIDE RECORDS SUMMARY | 2025-09-06 22:33 | XMS_ITS | Clinical Summary ---
Author Organization [email or web address] [facility] tem Address [id number] [address] [place] [address] Care Team Providers Care Meteorologist In Charge Name Role Phone Azul Quezada APRN-CUSTOMER DEVELOPMENT REPRESENTATIVE Primary Care Provider Allergies Active AllergyReactionsCriticalityNoted DateCommentsBee [...] Active Problems ProblemNoted DateDiagnosed DateStroke (cerebrum)07/08/2025Mixed hyperlipidemia 07/20/20201108Tlwwql30/29/2020Internal carotid artery stenosis, right06/10/2020CVA (cerebral vascular accident)06/10/2020 Encounters DateTypeDepartmentCare YqbrGgpflgpvjvp21/04/2025 1:30 PM ESTOffice Visit [facility] A Department of [facility] [address] [facility] [address] [place] [phone] Andrew Terrell MD Carotid stenosis, right (Primary Dx); Internal carotid artery stenosis, right; Cerebrovascular accident (CVA) due to stenosis of right carotid artery ([facility]) 08/25/20253369Ydxpgv44/18/2025 11:30 AM EDT - 07/09/2025 12:30 PM EDTSurgery [facility] - Cardiac Cath [address] [place] [phone] Andrew Terrell MD Diagnostic cerebral fnsyhhqeq41/17/9033Vfbxlp03/16/2025 12:52 PM EDT - 07/12/2025 4:58 PM EDTHospital Encounter [facility] - GEN 8 Acute [address] [place] [phone] Checo Aguilera MD Afreen, Ehad, MD Internal carotid artery stenosis, right (Primary Dx) Discharge Disposition: Alf Facility-Medicare Cert07/07/2025 11:35 AM EDTAncillary Procedure [facility] [address] [place] [phone] Pain07/07/2025 11:30 AM EDTAncillary Procedure [facility] [address] [place] [address] Pain07/07/2025 11:20 AM EDTAncillary Procedure [facility] [place] [phone] Pain07/07/2025Orders Only [facility] [address] [place] [phone] External, Scanning Provider Pain (Primary Dx)from Last [...] week06/10/2020How often do you attend protestant or restorationism services?Never06/10/2020Do you belong to any clubs or organizations such as protestant groups, unions, fraJack Robie or athletic groups, or school groups?No 06/10/2020How often do you attend meetings of the clubs or organizations you belong to?Never06/10/2020Are you , , , , never , or living with a partner?Living with lvlyxng4106/10/2020PHQ-2AnswerDate RecordedTotal Hsicp979Finun[facility] [place] of Occupational Health - Occupational Stress QuestionnaireAnswerDate [...] a part of a household?No07/08/2025hildcareAnswerDate RecordedChildcareUnknown 03/03/2019EmploymentAnswerDate NhjnvrngXoilldcpqtLcopass63/12/2019Hunger ScreeningAnswerDate RecordedWithin the past 12 months we worried whether our food would run out before we got money to buy more.Never True07/08/2025Within the past 12 months the food we bought just didn't last and we didn't have money to get more.Never True07/08/2025Purpose - LifeAnswerDate RecordedPurpose and direction in hfpyIotbzlo06/26/2021ex and Gender InformationValueDate Recorded Sex Assigned at BirthNot on fileLegal YdeZftm0504/27/2015 11:32 AM EDTGender IdentityNot on fileSexual OrientationNot on file Last Filed Vital Signs Vital SignReadingTime TakenCommentsBlood Iszofkmv657/7408/25/2025 1:27 PM EST Fzuhs368908/25/2025 1:27 PM QJZSqqtexjamdo73.9 ??C (98.4 ??F)07/12/2025 11:45 AM EDTRespiratory Kqqo003507/12/2025 3:43 PM EDTOxygen Beeoayprbr60%07/12/2025 3:43 PM EDTInhaled Oxygen Concentration--Lrtgrn67.7 kg (206 lb 9.6 oz)08/25/2025 1:27 PM AZDCnqvwm255.4 cm (6' 0.99 )08/25/2025 1:27 PM ESTBody Mass Index27.26 08/25/2025 1:27 PM EST Plan of Treatment Health MaintenanceDue DateLast DoneCommentsTobacco Jrrhltpvzp1960Adult BMI Follow Up Plan1978DTaP,Tdap and Td Vaccines (1 - Tdap)1979Zoster (Shingles) Vaccine (1 of 2)2010bdominal Aortic Aneurysm (AAA) Screen 2025Fall Risk Tchwedycy59/01/2025dult BMI Ivlogpvse29 Depression Pxdwplvcy88Tobacco Tmeblmrim58RSV ( or age 60+ yrs)Qetgyyheo38/09/2024Influenza VaccineCompleted 07/12/2025, 08/16/2024, 2020, Additional history exists Goals GoalPatient Goal TypeAssociated ProblemsRecent ProgressPatient-Stated?Author Safe Discharge Jaki Mock, RN Note: Evaluation of progress towards goal: safe transition to SNF rehab for strengthening and rehab s/p stroke Medical Devices ImplantedTypeAreaManufacturerDevice IdentifierShelf Expiration DateModel / Serial / LotStnt Vsc 8/6mm 6fr 30mm 135cm - [id number] Implanted:Qty: 1 on 06/12/2020 [facility] CarotidMEDTRONIC [id number] / / [id number] Crtd Neuroguard 40mm 140cm Clsd Cell Bln Fltr - [id number] Implanted:Qty: 1 on 07/09/2025 by Andrew Terrell MD at [facility]05/16/[id number] / / [id number] Procedures Procedure NamePriorityDate/TimeAssociated DiagnosisCommentsEXTRA TUBES LAVENDER SKVRvbqbyq64/21/2025 5:54 AM EDT EXTRA AZUEJDsrwduy31/21/2025 5:54 AM EDT COMPREHENSIVE METABOLIC LQWDHPoepjdv85/21/2025 5:54 AM EDT COMPREHENSIVE METABOLIC UFYWVBqyvyrb43/20/2025 3:34 AM EDT CBC WITH AUTO NTEQBDJXTUCEEiiconb83/19/2025 3:28 AM EDT COMPREHENSIVE METABOLIC WEAYNJupubtq61/19/2025 3:28 AM EDT NEURO JQSPDJTKYcfmfqb79/18/2025 12:45 PM EDTNEURO DWQXKYQPQcphrsu79/18/2025 12:45 PM EDTCBC WITH AUTO EYLKCARHCCPYQyovhdj39/18/2025 3:48 AM EDT COMPREHENSIVE METABOLIC SMWGRXsbvntl57/18/2025 3:48 AM EDT FL SWALLOW MOTILITY VRXSMQHBUhlwnmm73/17/2025 1:46 PM EDT ECHO COMPLETE W XENXWKQUVyktmvh12/17/2025 1:37 PM EDT VASC CAROTID DUPLEX CZIMZHGJTFwhzbee52/17/2025 11:11 AM EDT CBC WITH AUTO YTTMPJHDEYBWMlgegbq01/17/2025 3:14 AM EDT COMPREHENSIVE METABOLIC BMDRMBffhmwo71/17/2025 3:14 AM EDT LIPID JHLLDZWImkjeya93/17/2025 3:14 AM EDT MR BRAIN WO PSKVNWHN02/ 9:02 PM EDT XR CHEST 1 TWFzhvgdz22/16/2025 6:56 PM EDT ECG 12-ZVTSEHRK86/16/2025 5:35 PM EDT B-TYPE NATRIURETIC PEPTIDEAdd-On07/07/2025 3:49 PM EDT CBC WITH AUTO WOCLHFYUZYCQAyvqllf32/16/2025 3:49 PM EDT COMPREHENSIVE METABOLIC PNRYPGngdxxn80/16/2025 3:49 PM EDT HEMOGLOBIN F2PIvkputd79/16/2025 3:49 PM EDT BEDSIDE HDZSWQIYfidmza69/16/2025 2:[address] CEREBRAL PERF TGXLDUGTPGAV86/16/2025 2:[address] CTA SBQDBNSZispynm80/16/2025 11:[address] CTA FKEAQgvzxaq29/16/2025 11:[address] BRAIN WO AGGCZextpem89/16/2025 11:20 AM EDT Pain from Last 3 Months Results * Lavender Top (07/12/2025 5:54 AM EDT)ComponentValueRef RangeTest Method Analysis TimePerformed AtPathologist SignatureExtra TubeAuto Resulted 07/12/2025 7:01 AM TTOH[facility] LABORATORYSpecimen (Source) Anatomical Location / LateralityCollection Method / VolumeCollection Time Received TimeBloodVenous blood / Wqlgxok6507/12/2025 5:54 AM EDT1 6:11 AM EDT Narrative Authorizing ProviderResult TypeResult StatusMouhammasonia BAKER BLOOD ORDERABLESFinal ResultPerforming OrganizationAddressCity/State/ZIP CodePhone Number [facility] [address] [place] [address], [place] [phone] * (ABNORMAL) Comprehensive metabolic panel (07/12/2025 5:54 AM EDT) Only the most recent of6 resultswithin the time period is included. ComponentValueRef RangeTest MethodAnalysis TimePerformed AtPathologist Signature LQLQDI088650 - 146 mmol/L1 6:49 AM [facility] LABORATORYPOTASSIUM4.03.5 - 5.0 mmol/L1 6:49 AM [facility] TTQLLMPFTRISQQGPWT25237 - 109 mmol/L1 6:49 AM [facility] LABORATORYCARBON EBAKXBR1144 - 32 mmol/L1 6:49 AM [facility] LABORATORYANION GAP85 - 15 mmol/L1 6:49 AM [facility] LABORATORYBLOOD UREA NBNVNYKS102 - 27 mg/dL07/12/2025 6:49 AM [facility] LABORATORYCREATININE0.750.60 - 1.30 mg/dL07/12/2025 6:49 AM [facility] LABORATORYComment:METHOD TRACEABLE TO IDMA HEBMHZTERLJZFJZ6776 - 99 mg/dL07/12/2025 6:49 AM [facility] LABORATORYCALCIUM8.68.5 - 10.5 mg/dL07/12/2025 6:49 AM [facility] LABORATORYTOTAL PROTEIN5.6(L)6.0 - 8.0 g/dL07/12/2025 6:49 AM [facility] LABORATORYALBUMIN3.43.2 - 5.3 g/dL07/12/2025 6:49 AM [facility] LABORATORYALKALINE VBOVORIYSOK8668 - 130 U/L1 6:49 AM [facility] PKJGNUSWSYCEA41<=41 U/L1 6:49 AM [facility] LESNHEHJFRSND21<=40 U/L1 6:49 AM [facility] LABORATORYBILIRUBIN,TOTAL0.90.3 - 1.2 mg/dL07/12/2025 6:49 AM [facility] LABORATORYEGFR Non-Race Dependent>90>=60 ml/min/1.73sq.m 07/12/2025 6:49 AM [facility] LABORATORYComment: Reported eGFR is based on the CKD-EPI 2020 equation that does not use a race coefficient. Specimen (Source)Anatomical Location / LateralityCollection Method / Volume Collection TimeReceived TimeBloodVenous blood / UnknownVenipuncture / Unknown 07/12/2025 5:54 AM EDT1 6:11 AM EDT Narrative Authorizing ProviderResult TypeResult StatusAhmed Deven Guzman MILAB BLOOD ORDERABLESFinal ResultPerforming OrganizationAddressCity/State/ZIP CodePhone Number [facility] [address] [place] [address], * (ABNORMAL) CBC auto differential (07/10/2025 3:28 AM EDT) Only the most recent of4 resultswithin the time period is included. ComponentValueRef RangeTest MethodAnalysis TimePerformed AtPathologist Signature WBC10.04 - 11 x10E9/L1 3:55 AM [facility] RBC Count4.304.1 - 5.7 X10E12/L1 3:55 AM [facility] JOQXOXOKBLDfytecbsjp42.6(L)13 - 17 g/dL07/10/2025 3:55 AM [facility] YQLPMEXMADQuzeevtdzz47.9(L)39 - 50 %07/10/2025 3:55 AM [facility] QNHMMVNHAXFIR3646 - 100 fL07/10/2025 3:55 AM [facility] PYVMGBASLFIGC08.427 - 34 pg07/10/2025 3:55 AM [facility] PGRHGWCAWNILHS24.332 - 36 g/dL07/10/2025 3:55 AM [facility] RMIHIHLSRTJEC58.911.5 - 15 %07/10/2025 3:55 AM [facility] LABORATORYPlatelet Eajbp688508 - 450 X10E9/L1 3:55 AM [facility] LABORATORYMPV7.47 - 12 fL07/10/2025 3:55 AM EDT [facility]Neutrophils %75.4%07/10/2025 3:55 AM EDT [facility]ORYLymphocytes %10.4%07/10/2025 3:55 AM EDT [facility]Monocytes %10.7%07/10/2025 3:55 AM [facility] LABORATORYEosinophils %3.0%07/10/2025 3:55 AM [facility] LABORATORYBasophils %0.5%07/10/2025 3:55 AM [facility] LABORATORYNeutrophils Absolute (A)7.5(H)1.5 - 6.6 10*3/uL07/10/2025 3:55 AM [facility] LABORATORYLymphocytes Absolute1.01.0 - 3.5 10*3/uL07/10/2025 3:55 AM [facility] LABORATORYMonocytes Absolute1.1(H)0.0 - 0.9 10*3/uL07/10/2025 3:55 AM [facility] LABORATORYEosinophils Absolute0.30.0 - 0.4 10*3/uL07/10/2025 3:55 AM [facility] LABORATORYBasophils Absolute0.10.0 - 0.2 10*3/uL07/10/2025 3:55 AM [facility] LABORATORYDifferential TypeAUTOMATED OFSRIAMEWRPR54/19/2025 3:55 AM [facility] LABORATORYSpecimen (Source)Anatomical Location / LateralityCollection Method / VolumeCollection TimeReceived TimeBloodVenous blood / UnknownVenipuncture / Gwnorjz1007/10/2025 3:28 AM EDT1 3:42 AM EDT Narrative Authorizing ProviderResult TypeResult StatusAhmed Deven Guzman MDLAB BLOOD ORDERABLESFinal ResultPerforming OrganizationAddressCity/State/ZIP CodePhone Number [facility] [address] [place] [address], * Fluoroscopy swallow motility function (07/08/2025 1:46 [...] on 07/08/2025 1:55 PM Authorizing ProviderResult TypeResult StatusMouhsabiha Aguilera MDIMG FLUOROSCOPY ORDERABLESFinal Result * Echo complete W/ contrast (07/08/2025 1:37 PM EDT)ComponentValueRef RangeTest MethodAnalysis TimePerformed AtPathologist SignatureLVOT stroke ruxujr82.58ml ICUOUGBWD7171 - 44 %XCELERALVIDd5.906.58 - 9.14 cmXCELERALVIDs3.703.82 - 5.79 cmXCELERAIVS0.900.6 - 1.1 cmXCELERAPW0.900.6 - 1.1 cmXCELERALVOT diameter1.90 cmXCELERATDI6.31cm/sXCELERAMV TDI E' (medial)5.98cm/sXCELERAE/A ratio0.82 XCELERAE wave deceleration abox094.00msecXCELERAMV Peak E Vel76.00cm/sXCELERA MV Peak A Vel92.80cm/sXCELERALA size2.70cmXCELERARV diastolic dimension (basal)32.6hvRYNDSCUJFLFA0.83cmXCELERAAV peak kmn480.00cm/sXCELERALVOT peak vel1.31m/sXCELERAAV VTI25.10cmXCELERALVOT peak VTI25.60cmXCELERAAV mean gradient5.00mmHgXCELERAAV peak gradient7.62mmHgXCELERAAV valve area2.89XCELERA Valve area - Index1.3XCELERAMV pressure 1/2 time77.00msXCELERAMV valve area p 1/2 method2.75xx2WRGHSFIPM peak gradient3.11mmHgXCELERALV ESV A4C22.60mL XCELERALV RWT 2D30.51XCELERAAV Velocity Ratio1.02XCELERALeft Ventricle Mass 209.919878294951598oWJOBPVASqhsjnwcqyfhhffd Septum Diastolic Thickness by 2D9 cmXCELERAEst. RA nsrknppt5uuMbGKXRRKQWZ area16.2hx1GODPIAQIZHYDQ-1.90XCELERA ZLVIDD-2.73XCELERAAnatomical RegionLateralityModalityChestN/AUltrasound Specimen (Source)Anatomical Location / LateralityCollection [...] due to patient's respiration. Authorizing ProviderResult TypeResult StatusPromedica Memorial Hospitalsonia Zhang [facility] ECHO ORDERABLESFinal Result * Vas carotid duplex [...] besidetheir name. Authorizing ProviderResult TypeResult StatusRosibel Zhang [facility] VASCULAR ORDERABLESFinal Result * (ABNORMAL) Lipid profile (07/08/2025 3:14 AM EDT)ComponentValueRef RangeTest MethodAnalysis TimePerformed AtPathologist IgccsxsgpXZWDCSKLIAA819(L)150 - 200 mg/dL07/08/2025 4:33 AM [facility] BQWYKZYEYICAZVVKMPFSMA7325 - 150 mg/dL07/08/2025 4:33 AM [facility] LABORATORYHDL FFXTKKQXVPC20>39 mg/dL07/08/2025 4:33 AM [facility] LABORATORYComment: HDL <40 mg/dL - High Risk HDL > or = 40mg/dL- Desirable HDL >60 mg/dL - Negative Risk LDL (CALC)51<130 mg/dL07/08/2025 4:33 AM [facility] Comment: LDL <100 mg/dL - Desirable LDL >160 mg/dL - High Risk CHOLESTEROL:HDL2.31.0 - 5.010 4:33 AM [facility] LABORATORYVERY LOW OVXOQOHWSUI542 - 30 mg/dL07/08/2025 4:33 AM [facility] LABORATORYSpecimen (Source)Anatomical Location / Laterality Collection Method / VolumeCollection TimeReceived TimeBloodVenous blood / UnknownVenipuncture / Ixxopri4507/08/2025 3:14 AM EDT1 3:51 AM EDT Narrative Authorizing ProviderResult TypeResult StatusRosibel Zhang [facility] BLOOD ORDERABLESFinal ResultPerforming OrganizationAddressCity/State/ZIP CodePhone Number [facility] [address] [place] [address], [place] [phone] * MR brain without contrast (07/07/2025 9:02 [...] on 07/07/2025 9:12 PM Authorizing ProviderResult TypeResult StatusKhaled Gharaibeh MDIMG MRI ORDERABLESFinal Result * X-ray chest 1 [...] 07/07/2025 7:20 PM Authorizing ProviderResult TypeResult StatusAhkellee FOX [facility]AGNOST[facility] IMAGING ORDERABLESFinal Result * ECG 12 lead (07/07/2025 5:35 PM EDT)Specimen (Source)Anatomical Location / LateralityCollection Method / VolumeCollection TimeReceived Time07/07/2025 5:35 PM EDT Narrative [facility] - 07/07/2025 5:52 PM EDT Authorizing ProviderResult TypeResult StatusAhmed Deven Guzman MDG ORDERABLES Final ResultPerforming OrganizationAddressCity/State/ZIP CodePhone Number [facility] * B-type natriuretic peptide (07/07/2025 3:49 PM EDT)ComponentValueRef RangeTest MethodAnalysis TimePerformed AtPathologist DbvkdtivmGLQ69<=100 pg/mL07/07/2025 6:01 PM EDTTOHIOHEALTH PICKERINGTON [facility] LABORATORYSpecimen (Source)Anatomical Location / LateralityCollection Method / VolumeCollection TimeReceived Time BloodVenous blood / UnknownVenipuncture / Rxbzktd7407/07/2025 3:49 PM EDT 07/07/2025 4:02 PM EDT Narrative Authorizing ProviderResult TypeResult StatusErick Guzman MDLAB BLOOD ORDERABLESFinal ResultPerforming OrganizationAddressCity/State/ZIP CodePhone Number [facility] [address] [place] [address], * (ABNORMAL) Hemoglobin A1c (07/07/2025 3:49 PM EDT)ComponentValueRef RangeTest MethodAnalysis TimePerformed AtPathologist SignatureHEMOGLOBIN A1C5.7(H)4.4 - 5.6 %07/07/2025 4:50 PM [facility] LABORATORYComment: ?ADA Guidelines ?Result ?HgbA1c ? Normal : ? less than 5.7 % ? Prediabetes : ?5.7 % ??to 6.4 % Diabetes : > 6.4 % ?Use with caution in patients with abnormal hemoglobin variants as ??the half-life of red blood cells and in vivo glycation rates are ??affected. EST. AVERAGE BXGRPVA810zw/dL07/07/2025 4:50 PM [facility] LABORATORYSpecimen (Source)Anatomical Location / LateralityCollection Method / VolumeCollection TimeReceived TimeBloodVenous blood / UnknownVenipuncture / Mwqtxvl5307/07/2025 3:49 PM EDT1 4:02 PM EDT Narrative Authorizing ProviderResult TypeResult StatusRosibel Zhang MDLAB BLOOD ORDERABLESFinal ResultPerforming OrganizationAddressCity/State/ZIP CodePhone Number [facility] [address] [place] [address], [place] [phone] * (ABNORMAL) Bedside Glucose *Place/Obtain serum glucose if >500 per glucometer. (07/07/2025 2:48 PM EDT)ComponentValueRef RangeTest MethodAnalysis Time Performed AtPathologist SignatureBedside Glucose (POC)117(H)65 - 99 mg/dL 07/07/2025 2:53 PM EDTTCLEVEL[facility] LABORATORYSpecimen (Source)Anatomical Location / LateralityCollection Method / VolumeCollection TimeReceived Time arterial/wvxxwjgus75/16/2025 2:48 PM EDT1 2:53 PM EDT Narrative Authorizing ProviderResult TypeResult StatusMouhammad Deven Aguilera MDPOINT OF CARE TEST ORDERABLESFinal ResultPerforming OrganizationAddressCity/State/ZIP Code Phone Number [facility] [address] [place] [address], [place] * CT cerebral perfusion analysis (07/07/2025 [...] on 07/07/2025 2:47 PM Procedure Note Kishore Thoams MD - 07/07/2025 CT CEREBRAL PERF ANALYSIS [...] 2:47 PM Authorizing ProviderResult TypeResult Statusrafael Zhang [facility] CT ORDERABLES Final Result * CT [...] (Latest Code Status on File) Date ActivatedDate CiesfsfkavhRfihdyxq76/16/2025 5:09 07/12/2025 7:04 PM Care Teams Team MemberRelationshipSpecialtyStart DateEnd Date Azul Quezada, IT COMPLIANCE ANALYST-CUSTOMER DEVELOPMENT REPRESENTATIVE PCP - GeneralNurse Xurarnhuvuom50/9/19
--- OUTSIDE RECORDS SUMMARY | 2025-09-06 22:33 | XMS_ITS | Clinical Summary ---
Author Organization [facility] Address [address] [place] [address] Care Team Providers Care Environmental Health And Safety Intern Name Role Phone Azul Quezada CULL GRADER Unavailable [phone] Kiko Zurita MD Primary Care Provider [phone] Azul Quezada CULL GRADER Unavailable [phone] Allergies Active AllergyReactionsCriticalityNoted DateCommentsBee XticvTcpzbac68/18/2020 Medications MedicationSigDispense QuantityRefillsLast FilledStart DateEnd DateStatus albuterol [...] As Needed for shortness of breath or iwijhxdj87/06/2025Active atorvastatin (Lipitor) 40 MG tablet Indications:Mixed hyperlipidemiaTake [...] DAYS05/11/2025 Active Active Problems ProblemNoted DateDiagnosed DateElevated uakyoxr0305/17/2025Pain of right hip 05/17/2025 Assessment & Plan (05/17/2025 5:24 PM EDT): Check xray and go from there half-way current use of inhaled evudtzh4611/16/2024OPD with acute exacerbation 11/16/2024 Assessment & Plan (11/16/2024 6:53 PM EST): Add atb, steroids, check cxr Pt needs to get in touch with dr tim If resp condition worsens go to the ER Needs flu shot08/16/2024Former bpkpmn7308/16/2024 Assessment & Plan (08/16/2024 1:38 PM EST): Quit smoking, and no smoking THC!! Great job Rising PSA level06/01/2024 Overview (09/07/2024): 02/2022: 0.86 04/2024: 1.91 09/07/24: 1.0 Screening for prostate jijfxr1305/19/2024 Overview (06/01/2024): PSA: 05/31/24 1.91, 04/29/23 0.94, 03/06/2022 0.86, 05/11/20 0.79 Sessile colonic polyp05/19/2024 Assessment & Plan (08/16/2024 7:27 AM EST): Has been referred to [facility] for colonoscopy Right hand pain05/19/2024 Assessment & Plan (05/19/2024 3:10 PM EDT): Offered xray he declines Will just monitor at this time Overweight (BMI 25.0-29.9)12/15/2023Encounter for subsequent annual wellness visit (AWV) in Medicare kgoaxnf4411/13/2023 Assessment & Plan (11/16/2024 7:09 AM EST): [...] EDT): No current med use for this Qebfivsy87/08/2024 Assessment & Plan (08/16/2024 7:22 AM EST): Continue with trazodone Multiple pulmonary xsvhhup1710/30/2023entrilobular yqsbxoqmo86/08/2024 Assessment & Plan (05/17/2025 6:54 AM EDT): 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, now needs a new kaiawhina kura kaupapa maori and needs a referral to [facility] [...] have asked the pt to contact his kaiawhina kura kaupapa maori for management of this exacerbation He states [...] as well as current inhalers Vertebral artery belsgqcyy15/08/2024ilateral carotid artery dykyyuki58/08/2024 Assessment & Plan (05/17/2025 6:54 AM EDT): [...] active symptoms at this time Degenerative cervical disc10/30/20239827Qzvjvbcgazalal41/08/2024alcified lymph nodes10/30/2023Vocal cord polyp10/30/2023epression with clrpgzd8110/30/2023 Assessment & Plan (05/17/2025 6:56 AM EDT): [...] doses Is stable at this time Allergic uucqiiru41/08/2024Marijuana abuse10/30/2023MI 26.0-26.9,adult 10/30/20233887Hstqwv29/01/2020Mixed awzgtehceggyij30/29/2020 Assessment & Plan (11/13/2023 11:39 AM EST): [...] ProblemNoted DateDiagnosed DateResolved DateColon polyp Papule of skin/0096Sekylqukk60 Assessment & Plan (10/30/2023 11:06 AM EST): Continues to slowly improve, recommend flu shot pt did not get this Fatigue remains, will see back in office in 2 weeks and remains off work Hmmgfb31 Assessment & Plan (08/16/2024 7:25 AM EST): The patient has been advised of the risks of continued smoking: stroke, UT, all forms of cancer, lung disease, and . Options for quitting smoking include: cold turkey, hypnosis, acupuncture, nicotine replacement meds(gum, lozenges, and patches), Buproprion, and Varenicline. At this time pt is encouraged to evaluate their goals for wanting to quit smoking, and reach out toprovider when ready to start this process Immunizations ImmunizationAdministration DatesNext DueABRYSVO - Respiratory syncytial virus (RSV), vaccine, bivalent, protein subunit RSV prefusion F, diluent reconstituted, 0.5 mL, PF08/30/2024Influenza, High Dose Seasonal, Preservative Free08/04/2019Influenza, injectable, MDCK, preservative free, quadrivalent 08/16/2024Influenza, injectable, quadrivalent, preservative free07/05/2015 Influenza, live, intranasal, iyylhedqtars27/01/2020 Family History Medical HistoryRelationNameCommentsHeart attackFatherAsthmaMotherDiabetesMother HypertensionMotherRelationNameStatusCommentsFatherMother Social History Tobacco UseTypesPacks/DayYears UsedDateSmoking Tobacco: NevzxhZqmzqhhnpp629 03/1984 - 03/2019Smokeless Tobacco: Never Tobacco Cessation:Counseling [...] times a week11/13/2023How often do you attend scientologist or congregational services?Never11/13/2023o you belong to any clubs or organizations such as scientologist groups, unions, fraternal or athletic groups, or school groups?Yes11/13/2023How often do you attend meetings of the clubs or organizations you belong to?More than 4 times per year11/13/2023re you , , , , never , or living with a partner? Dwrusff3311/13/2023UDIT-CAnswerDate RecordedQ1: How often do you have a [...] hard at all11/13/2023HQ-2AnswerDate RecordedPatient Health Questionnaire-2 Score2 11/16/2024[facility] [place] [facility] - Occupational Stress QuestionnaireAnswerDate RecordedDo you feel stress - tense, restless, nervous, or anxious, or unable to sleep at night because yourmind is troubled all the time - these days?Only a akuaiz5311/13/2023Exercise Vital SignAnswerDate Recorded On average, how many [...] Last Filed Vital Signs Vital SignReadingTime TakenCommentsBlood Yhjmtdni975/7608 3:38 PM EDT Qrxwn727905/17/2025 3:38 PM RFNFuxaliykpgo67.6 ??C (97.8 ??F)05/17/2025 3:38 PM EDTRespiratory Hhop632605/17/2025 3:38 PM EDTOxygen Ygigvwbtjm42%05/17/2025 3:38 PM EDTInhaled Oxygen Concentration--Ykiela77.8 kg (211 lb 3.2 oz)05/17/2025 3:38 PM FZHIeoyvo099.4 cm (6' 1 )08/16/2024 1:20 PM ESTBody Mass Index27.8608/16/2024 1:20 PM EST Plan of Treatment Health MaintenanceDue DateLast DoneCommentsCT Vycgqsnvqfug1960FIT-DNA 1960FIT1960FOBT1960Lung Cancer Screening Shared Decision Mbabni31 1960 8543Hpfgteubwflgz1960Pneumococcal Vaccine: 65+ Years (1 of 2 - PCV)1979COVID-19 Vaccine (1 - season)2025Influenza Vaccine (#1), 2020, 08/04/2019, Additional history exists Medicare Annual Wellness (AWV), 11/13/2023, 11/13/2023 Pszxfymxnqy03olorectal Cancer Muearrpws77/24/2029 Insurance Care Teams Team MemberRelationshipSpecialtyStart DateEnd Date Kiko Zurita MD PCP - GeneralFamily Medicine10/24/23 Azul Quezada NP [address] [place] [address] PCP - [facility]10/29/24 Azul Quezada NP Referring PhysicianNurse Practitioner04/07/23
[2025-09-07] VITALS: BP 147/80; PULSE 92; O2SAT 97
[2025-09-07 00:10] VITALS: O2SAT 97
== END 2025-09-07 00:52 | disposition home or self-care (01) ==
PROVIDERS: Physician Assistant; Emergency Provider Internal Medicine; PCP Nurse Practitioner
DX: J44.1 Chronic obstructive pulmonary disease with (acute) exacerbation (principal); Z87.01 Personal history of pneumonia (recurrent); Z99.81 Dependence on supplemental oxygen; I69.354 Hemiplegia and hemiparesis following cerebral infarction affecting left non-dominant side; Z87.891 Personal history of nicotine dependence
CPT/HCPCS: 36415; 71045; 80053; 82800; 83880; 84484; 85007; 85027; 85610; 85730; 87040; 87070; 87205; 93005; 94640; 96374; 99284; J1938

== ENCOUNTER 2025-09-09 22:07 | Emergency (ER) | payer MEDICARE, SELFPAY ==
--- OUTSIDE RECORDS SUMMARY | 2024-04-22 05:00 | XMS_ITS ---
Author Organization [facility] in [place] Address [address] [place] [address] Care Team Providers Care Kids Club Attendant Name Role Phone Azul Quezada CNP Primary Care Provider Unavail Valeriy Rae Unavailable [phone] REASON FOR VISIT 1 YEAR-COPD Encounters Encounter Location Date Provider Diagnosis Pulmonary Medicine [place] [address] [place] [address] 04/22/2024 Valeriy Boo Plan Of Treatment No Information Progress Notes * NIA Sam KDOB:[birth year] (65 yo M)Acc No.[id number]:04/22/2024 UNLOCKED PROGRESS NOTE Follow Up Patient: Sam SPEAR :?ERMIAS MalloryOB:1960???Age:63 Y ???Sex:MaleDate:4Phone:[phone]:[address] [id number]:Azul Quezada CNP Subjective: * Chief Complaints: * 1 . 1 YEAR-COPD. * Medical History: Objective: * Vitals: Assessment: Plan: * Treatment: * * Electronic signature of Valeriy Boo DO on 09/09/2025 at 11:27 PM ESTSign off status: PendingVisit Status:?CANC (Cancelled) * Provider: Ale Boo DO Date: 0 04/22/2024 Generated for Printing/Faxing/eTransmitting on:?09/09/2025 11:27 PM EST
--- OUTSIDE RECORDS SUMMARY | 2024-07-28 08:30 | XMS_ITS ---
Author Organization [facility] in [place] Address [address] [place] [address] Care Team Providers Care Technical Support Intern Name Role Phone Azul Quezada CNP Primary Care Provider Unavail Valeriy Rae Unavailable [phone] REASON FOR VISIT 6MO-COPD Encounters Encounter Location Date Provider Diagnosis Pulmonary Medicine [place] [address] [place] [address] 07/28/2024 Valeriy Boo Plan Of Treatment No Information Progress Notes * NIA Sam KDOB:[birth year] (65 yo M)Acc No.[id number]:07/28/2024 UNLOCKED PROGRESS NOTE Follow Up Patient: Sam SPEAR :?ERMIAS MalloryOB:1960???Age:64 Y ???Sex:MaleDate:4Phone:[phone]:[address] [id number]:Azul Quezada CNP Subjective: * Chief Complaints: * 1 . 6MO-COPD. * Medical History: Objective: * Vitals: Assessment: Plan: * Treatment: * * Electronic signature of Valeriy Boo DO on 09/09/2025 at 11:27 PM ESTSign off status: PendingVisit Status:?R/S (Rescheduled) * Provider: Ale Boo DO Date: 09/27/2023 Generated for Printing/Faxing/eTransmitting on:?09/09/2025 11:27 PM EST
--- OUTSIDE RECORDS SUMMARY | 2025-03-10 08:00 | XMS_ITS ---
Author Organization [facility] in [place] Address [address] [place] [address] Care Team Providers Care Drier Feeder Name Role Phone Azul Quezada CNP Primary Care Provider Unavail Valeriy Rae Unavailable [phone] REASON FOR VISIT 3m F/U - COPD Encounters Encounter Location Date Provider Diagnosis Pulmonary Medicine [place] [address] [place] [address] 03/10/2025 Valeriy Boo Plan Of Treatment No Information Progress Notes * KRAMERSam FARRAR KDOB:[birth year] (65 yo M)Acc No.[id number]:03/10/2025 UNLOCKED PROGRESS NOTE Follow Up Patient: Sam SPEAR :?ERMIAS MalloryOB:1960???Age:64 Y ???Sex:MaleDate:03/10/2025Phone:[phone]:[address] [id number]:Azul Quezada CNP Subjective: * Chief Complaints: * 1 . 3m F/U - COPD. * Medical History: Objective: * Vitals: Assessment: Plan: * Treatment: * * Electronic signature of Valeriy Boo DO on 09/09/2025 at 11:27 PM ESTSign off status: PendingVisit Status:?R/S By O/P (Rescheduled by Office/Provider) * Provider: Ale Boo DO Date: 0 03/10/2025 Generated for Printing/Faxing/eTransmitting on:?09/09/2025 11:27 PM EST
--- OUTSIDE RECORDS SUMMARY | 2025-09-08 04:40 | XMS_ITS | Continuity of Care Document ---
Author Organization [facility] Address [address] [place] [address] Phone Care Team Providers Care It Programmer Name Role Phone NON STAFF Primary Care Provider Delmis Adams MD Attending Provider Baltazar Gil DO Attending Provider [phone] Azul Quezada [employer]OM[employer]IC DATA PROCESSING PLANNER-C Primary Care Provider Mary Zamudio DO Attending Provider [phone] Mio Watkins MD Attending Provider [phone] Azul Quezada AUTOMATIC DATA PROCESSING PLANNER-C Attending Provider Provider, Outside Attending Provider Unavailable Azul Quezada AUTOMATIC DATA PROCESSING PLANNER-C Referring Provider Ping Shore APRN Attending Provider [phone] Care Teams Patient Care Team Team Status: [...] Azul Quezada NP-C Primary Care Provider Active Start: August 10, 2025 Harman Parker ProviderActiveStart: August 10, 2025 Visit Care Team Team Status: Active Member Role/Relationship Status Dates Azul Quezada , AUTOMATIC DATA PROCESSING PLANNER-C Primary Care Provider Active Start: August 11, 2025 Mio Watkins MDAttending ProviderActiveStart: August 11, 2025 Visit Care Team Team Status: Active Member Role/Relationship Status Dates Azul Lashawn Quezada , AUTOMATIC DATA PROCESSING PLANNER-C Primary Care Provider Active Start: August 14, 2025 Mio Watkins MDAttending ProviderActiveStart: August 14, 2025 Visit Care Team Team Status: Inactive Member Role/Relationship Status Dates Azul Lashawn Quezada , AUTOMATIC DATA PROCESSING PLANNER-C Primary Care Provider Active Start: August 16, 2025 End: August 16, 2025Azul Quezada , AUTOMATIC DATA PROCESSING PLANNER-CAttending ProviderActiveStart: August 16, 2025 End: August 16, 2025 Visit Care Team Team Status: Active Member Role/Relationship Status Dates Azul Lashawn Quezada , AUTOMATIC DATA PROCESSING PLANNER-C Primary Care Provider Active Start: August 22, 2025 Delmis Urena , MDAttending ProviderActiveStart: August 22, 2025 Visit Care Team Team Status: Inactive Member Role/Relationship Status Dates Azul Lashawn Quezada , AUTOMATIC DATA PROCESSING PLANNER-C Primary Care Provider Active Start: August 29, 2025 End: August 29, 2025Azul Quezada , AUTOMATIC DATA PROCESSING PLANNER-CAttending ProviderActiveStart: August 29, 2025 End: August 29, 2025 Visit Care Team Team Status: Active Member Role/Relationship Status Dates Azul Lashawn Quezada , AUTOMATIC DATA PROCESSING PLANNER-C Primary Care Provider Active Start: September 02, 2025 Azul Quezada , AUTOMATIC DATA PROCESSING PLANNER-CAttending ProviderActiveStart: September 02, 2025 Visit Care Team Team Status: Active Member Role/Relationship Status Dates Azul Lashawn Quezada , AUTOMATIC DATA PROCESSING PLANNER-C Primary Care Provider Active Start: September 06, 2025 Outside ProviderAttending ProviderActiveStart: September 06, 2025 Patient Care Team Team Status: Inactive Member Role/Relationship Status Dates Azul Lashawn Quezada , AUTOMATIC DATA PROCESSING PLANNER-C Primary Care Provider Active Start: September 08, 2025 End: September 08, 2025Azul Quezada , AUTOMATIC DATA PROCESSING PLANNER-CReferring ProviderActiveStart: September 08, 2025 End: September 08, 2025Heidi Mone , PROSTHETIC AIDE ACNP-BCAttending ProviderActiveStart: September 08, 2025 End: September 08, 2025 Chief Complaint and Reason for Visit Chief Complaint Admit Date Discharge FollowUp [place] July 2:18pm [facility] f/u COPD August 29, 2025 1 1:23am Ref: Beni Aichholz [employer] DATA PROCESSING PLANNER - Centrilobular Emph ysema September 08, 2025 8:22am Reason for Visit Admit Date Centrilobular emphysema August 16, 2 025 2:18pm CVA (cerebral vascular accident) Novem 2024 2:18pm Depression with anxiety August 16, 2 025 2:18pm Essential hypertension August 16 2:18pm Mixed hyperlipidemia August 16, 2025 2:18pm Vertebral artery occlusion July 2:18pm Bilateral lower extremity edema August 29, 2025 11:23am Centrilobular emphysema August 29 11:23am CVA (cerebral vascular accident) [facility] 2024 11:23am Essential hypertension August 29 11:23am Left arm pain August 29, 2025 1 1:23am Mixed hyperlipidemia August 29, 2025 11:23am Supplemental oxygen dependent August 292024 11:23am Vertebral artery occlusion August 29, 2025 11:23am Centrilobular emphysema September 08, 025 8:22am Chronic hypoxemic respiratory failure De cember 2024 8:22am Nicotine dependence in remission [facility] 2024 8:22am COPD (chronic obstructive pulmonary dise ase) September 08, 2025 8:22am Reason for Referral Type Reason(s) Provider Provider Contact Information P rovider Address Start Date Cerebral infarction Occlusion of vertebral artery Weakness of left side of bodyCentrilobular emphysema J43.2 - Centrilobular gwigbqsdhK05.9 - Cerebral infarction, unspecified,I65.01 - Occlusion and stenosis of right vertebral artery,R53.1 - WeaknessDetermined by PatientDecember 2024 J43.2 - Centrilobular emphysemaFPG Pulmonary MedicineWork Phone: [address] [phone] 2024 Allergies, Adverse Reactions, Alerts Allergen Type Severity Reaction Last Updated Verified Status bee pollen Allergy Unknown Anaphylaxis September 08, 2025 8:28a m Yes Active Social History Smoking Status Status Start Date End Date Date of Observa tion Ex-smoker (finding) September 08, 2025 9:24am Observation Status Observation Response Date of Response Legal Sex Male (finding) Sex Assigned At BirthMaleSeptember 1959 Family History Relationship Condition Age at Onset Recorded Date/T hyacinth father Malignant neoplasm of lung Unknown DeceasedUnknownmotherHeart diseaseUnknownCongestive heart failureUnknown Problems Active Problems Problem Diagnosis/Recorded Date Onset Date Status C omments Depression with anxiety July 12, 2025 8:04am Unknown Active Right hand painOctober 2024 8:16amUnknownActiveElevated glucoseOctober 2024 8:05amUnknownActiveBilateral lower extremity edemaDecember 2024 7:02amUnknownActiveInsomniaSeptember 2024 6:52pmUnknownActiveScreening for prostate cancerOctober 2024 8:18amUnknownActiveLong term current use of inhaled steroidOctober 2024 8:14amUnknownActiveChronic hypoxemic respiratory failureDecember 2024 8:23amUnknownActiveEncounter for screening mammogram for malignant neoplasm of breastOct2024 8:13am UnknownActiveNicotine dependence in remissionDecember 2024 4:15pmUnknown Txfkdp8xoj x 35 yrs..sarg0358Uzjuhfane artery occlusionOctober 2024 8:20am UnknownActivePolyp of vocal cordOctober 2024 8:16amUnknownActive Centrilobular emphysemaOctober 2024 8:03amUnknownActivePFT 09/15: FEV1 22%, FVC 56%, FEV1/FVC 30%Marijuana useOctober 2024 8:14amUnknownActive Cerebral infarctionOctober 2024 5:36amUnknownActiveStenosis of right internal carotid arteryOctober 2024 8:13amUnknownActiveLeft arm pain August 29, 2025 12:38pmUnknownActiveMixed hyperlipidemiaSeptember 2024 6:53pmUnknownActiveSupplemental oxygen dependentDecember 2024 12:42pm UnknownActiveOsteoarthritisOctober 2024 8:15amUnknownActiveDDD (degenerative disc disease), cervicalOctober 2024 8:04amUnknownActive Rising PSA levelOctober 2024 8:18amUnknownActiveEssential hypertension July 15, 2025 4:56amUnknownActiveFormer smokerOctober 2024 8:13am UnknownActiveBMI 26.0-26.9,adultOctober 2024 7:57amUnknownActiveMultiple pulmonary nodulesOctober 2024 8:15amUnknownActiveCalcified lymph nodes July 12, 2025 7:57amUnknownActiveCOPD (chronic obstructive pulmonary disease)September 02, 2019 5:22pmUnknownActivePain in right hipOct2024 8:15amUnknownActiveLeft-sided weaknessDecember 2024 12:46pmUnknown ActiveSessile colonic polypOctober 2024 8:19amUnknownActiveAllergic rhinitisOctober 2024 7:56amUnknownActiveBilateral carotid artery stenosis July 12, 2025 7:57amUnknownActiveTourette'sOctober 2024 8:20amUnknown ActiveCVA (cerebral vascular accident)July 12, 2025 8:03amUnknownActive Inactive/Resolved Problems Problem Diagnosis/Recorded Date Onset Date Status [...] at bedtime as needed for insomnia 90 1September 2024 11:00pmInsomnia Insomnia, unspecifiedComplies with drug therapyAtorvastatin 40 mg jrkeekJccydb30 MGPODaily at bzlcgzr951Pprmoolxc 2024 11:00pmMixed hyperlipidemia Mixed hyperlipidemiaComplies with drug therapySodium Chloride (Laurens Saline) 0.65 % wbtynDehqtp1ZFXPBYJMWXOPPRGIhkm times daily as needed for dry nasal zxwqgwpy74 0November 2024 12:00amCentrilobular emphysema Centrilobular emphysemaComplies with drug therapyAlbuterol Sulfate 2.5 mg /3 mL (0.083 %) solution for ashymbfboplyLevshn0HFXLHCSGMTWQTFzlgx times daily as needed for Shortness Of Breath Or WheezingLe[facility] [address] 2018 12:00amComplies with drug therapyTiotropium [place] 2.5 mcg/actuation sjwzHzhtzgyjufuj3EEOF INHALATIONDaLehigh [facility] [address] 2018 12:00[facility] 2024 1:06pmMeloxicam 15 mg zxwcjrVwngefwwfwpq70MISFRseuwBllxczzz 2018 12:00[facility] 2024 4:57amTizanidine 4 mg fzgzahYanykpcpjtyz4VTDZAyepevbClworzht 12th, 2019 12:00am July 15, 2025 4:57amFluticasone Propion-Salmeterol 115-21 mcg/actuation HFA aerosol aoxhayzQzgieagcyffk9JLRFWGUYWEYNPZRtlkk dailybanner [facility] 2018 12:00am July 15, 2025 4:57amFluoxetine 10 mg JvynwnwCgdmjqehmpov45RQZJZejbd morning 92065Gxipickf 2018 12:00[facility] 2024 4:55amIpratropium-Albuterol 0.5 mg-3 mg(2.5 mg base)/3 mL solution for amzgqdrskeqrCzzenp4GVTVVIPXVLHTvpagk 6 to 8 hours as neededBr[facility] Hospital 2024 11:00pmComplies with drug therapy Triamcinolone Acetonide (Nasacort Allergy) 55 mcg aerosol,aupebDjdtcz5DBRAV INTRANASALDailyBr[facility] 2024 11:00pmadminister into each nostrilComplies with drug therapyLosartan 25 mg tklspwMhjfzw72RLKOGdcphBflgexr 2024 11:00pmPrimary hypertension Essential (primary) hypertensionComplies with drug therapyAspirin 81 mg tablet Ovcoby99ZBOPYnmhnZpfzpei 2024 11:00pmComplies with drug therapyAlbuterol Sulfate 90 mcg/actuation HFA aerosol ezzpbxuEtffdy4VSORIZJXVLYFWLNjsc times daily as neededOctmcdowell arh hospital 2024 11:00pmComplies with drug therapyFluoxetine 20 mg lrhxdqkKipklfninofw25JXBVHcsfeGwerytu 2024 11:00pmNov2024 2:51pmBudesonide-Formoterol (Symbicort) 160-4.5 mcg/actuation HFA aerosol ggjizqqDrqnnvohvrmu0UZNMFVULRCXQCTDgklz 12 hoursOctmcdowell arh hospital 2024 11:00pm August 29, 2025 1:06pmFurosemide (Lasix) 20 mg fhbdkyKumhtzldvcae13OKGSModto August 23, 2025 12:00amDeceer 2024 1:06pmFurosemide (Lasix) 20 mg mzjgyiKbflul73HAKMGkqxo665Nkqtigok 8th, 2025 1:05pmEdema of both lower extremities Localized edemaComplies with drug therapyTiotropium [place] 2.5 mcg/actuation wuxdQjsrrg2RUTDKYPVCKRQFKUmwze55Hywmcsfe 8th, 2025 1:05pmCentrilobular emphysema Centrilobular emphysemaComplies with drug therapyBudesonide-Formoterol (Symbicort) 160-4.5 mcg/actuation HFA aerosol ileysrlIkcbpy9MPUOBCUMPXVEDLQfukt 12 hours10.De2024 1:06pmCentrilobular emphysema Centrilobular emphysemaComplies with drug therapyBudesonide (Pulmicort) 0.5 mg/2 mL suspension for nebulizationActive0.5MGINHALATIONTwice bbqwg921206Ihbksvpl 18th, 2025 12:00amChronic obstructive pulmonary disease Chronic obstructive pulmonary disease, unspecifiedComplies with drug therapy Prednisolone 5 mg vcvapsVraanb4KPAJPahwxYrqiphfd 2024 12:00amComplies with drug therapySodium Chloride 3 % solution for okexemlpvixfJimgne5FXEWGJIXWOOR Twice wimcq29656Vdbamgml 18th, 2025 12:00amChronic obstructive pulmonary disease Chronic obstructive pulmonary disease, unspecifiedComplies with drug therapy Prednisone 20 mg yqfavdEzlelapmldnd84VXMCRcqinMazrnhqp 25th, 2025 12:00am September 08, 2025 9:21amAzithromycin 500 mg uekibhFkgsyttmuivb666AXPBXqyyc August 16, 2025 12:00amDece2024 7:00amTicagrelor 90 mg tablet Wtzlmf16MOEXCbhvv dailyAugust 16, 2025 12:00amComplies with drug therapy Relevant Diagnostic Tests and/or Laboratory Data Laboratory Results Test Collection Date/Time Result Date/Time Result Interpretation Reference Range Result Comment Performing Site Activated Partial Thromboplast Time July 07, 2025 8:56am July 07, 2025 8:56am 21.4 sec Below low normal 22.3-36.2 Troponin I High SensitivityJuly 07, 2025 8:56amJuly 07, 2025 8:56am7.5 pg/mL4.0-76.1CUT-OFF POINTS HAVE BEEN ESTABLISHED BASED ON THE FOURTHIVERS DEFINITION OF MYOCARDIAL INFARCTION. THE UPPERREFERENCE LIMIT (URL) OF TROPONIN, DEFINED THE 99THPERCENTILE OF cTnI DISTRIBUTION IN A REFERENCE POPULATION,HAS BEEN CONFIRMED THE DECISION THRESHOLD FOR MIDIAGNOSIS.99TH PERCENTILE = 76.2 PG/MLNOTE: HIGH-SENSITIVITY TROPONIN ASSAY IS NOT INTENDED TO BEUSED IN ISOLATION BUT SHOULD BE INTERPRETED IN CONJUNCTIONWITH OTHER DIAGNOSTIC AND CLINICAL INFORMATION.Magnesium LevelJuly 07, 2025 8:56amJuly 07, 2025 8:56am2.3 mg/dL1.8-2.4Anion GapJuly 07, 2025 8:56am12.9Prothromb Time International RatioJuly 07, 2025 8:56amJuly 07, 2025 8:56am0.97DESIRED INR:2.0-3.0 CONDITIONS NOT LISTED BELOW2.5-3.5 FOR PROSTHETIC HEART VALVE REPLACEMENT2.5-3.5 RECURRENT THROMBOSISBasophils # (Auto)July 07, 2025 8:56amJuly 07, 2025 8:56am0.1 10 3/uL0.0-0.1RSV RNA Qual (PCR)(MISC)July 07, 2025 9:40amOctober 2024 9:40amNot DetectedNOT VVEXMLXMBAB-SzA-1 Ag (CV2AG)July 07, 2025 9:40amOctober 2024 9:40amNEGATIVENEGATIVEThis [...] Influenza Type A Antigen July 07, 2025 9:40amOctober 2024 9:40amNegativeNegative for Flu A protein antigen. Infection due to Flu Acannot be ruled out. Flu A antigen in the sample may bebelow the detection limit of the test.Brett TestOctober 2024 11:52amOctober 2024 11:52amPOSITIVEPOSITIVELipaseNov2024 6:24am July 23, 2025 6:24am19.0 U/L16.0-77.0B-Type Natriuretic PeptideNov2024 6:24amNovemb2024 6:24am73.0 pg/mL<=900.0Troponin I High SensitivityJuly 23, 2025 6:24amNovemb2024 6:24am7.1 pg/mL4.0-76.1 CUT-OFF POINTS HAVE BEEN ESTABLISHED [...] 2024 6:24am 11.0Basophils # (Auto)July 23, 2025 6:24amNovember 2024 6:24am0.1 10 3/uL0.0-0.1Allen TestAugust 10, 2025 8:05pmAugust 10, 2025 8:05pm WSOWEFGAXWIXIOVCBHZT-DlV-8 Ag (CV2AG)August 10, 2025 8:15pmAugust 10, 2025 [...] Influenza Type A Antigen August 10, 2025 8:15pmAugust 10, 2025 8:15pmNegativeNegative for Flu A protein antigen. Infection due to Flu Acannot be ruled out. Flu A antigen in the sample may bebelow the detection limit of the test.B-Type Natriuretic Peptide August 10, 2025 8:35pmAugust 10, 2025 8:35pm72.0 pg/mL<=900.0Troponin I High SensitivityAugust 10, 2025 8:35pmAugust 10, 2025 8:35pm6.8 pg/mL 4.0-76.1CUT-OFF POINTS HAVE BEEN ESTABLISHED BASED ON THE FOURTHUNIVERSAL DEFINITION OF MYOCARDIAL INFARCTION. THE UPPERREFERENCE LIMIT (URL) OF TROPONIN, DEFINED THE 99THPERCENTILE OF cTnI DISTRIBUTION IN A REFERENCE POPULATION,HAS BEEN CONFIRMED THE DECISION THRESHOLD FOR MIDIAGNOSIS.99TH PERCENTILE = 76.2 PG/MLNOTE: HIGH-SENSITIVITY TROPONIN ASSAY IS NOT INTENDED TO BEUSED IN ISOLATION BUT SHOULD BE INTERPRETED IN CONJUNCTIONWITH OTHER DIAGNOSTIC AND CLINICAL INFORMATION.Anion Nov2024 8:35pmNovember 2024 8:35pm8.4Basophils # (Auto)August 10, 2025 8:35pmNovember 2024 8:35pm 0.1 10 3/uL0.0-0.1Anion GapNov2024 5:17amNovember 2024 5:17am 8.5Basophils # (Auto)August 11, 2025 5:17amNovember 2024 5:17am0.0 10 3/uL0.0-0.1Anion GapNov2024 6:05amNovember 2024 6:05am12.8 HematocritNov2024 6:05amNovember 2024 6:05am40.5 %Below low uqapfs15.0-54.0B-Type Natriuretic PeptideDece2024 12:43pmDecember 2024 12:43pm94.0 pg/mL<=900.0Anion GapDecemb2024 12:43pmDecember 2024 12:43pm8.4Troponin I High SensitivityDece2024 12:43pmDecember 2024 12:43pm8.1 pg/mL4.0-76.1CUT-OFF POINTS HAVE BEEN [...] AND CLINICAL INFORMATION.Basophils # (Auto)August 22, 2025 12:43pmDecember 2024 12:43pm0.1 10 3/uL0.0-0.1Anion GapSeptember 02, 2025 2:59pmDecember 2024 2:59pm8.4HematocritDe2024 8:59pmDecember 2024 8:59pm38.7 %Below low omrdql76.0-54.0Activated Partial Thromboplast TimeD2024 8:59pmDecember 2024 8:59pm25.3 sec22.3-36.2 Prothromb Time International RatioDe2024 8:59pmDecember 2024 8:59pm0.98DESIRED INR:2.0-3.0 CONDITIONS NOT LISTED BELOW2.5-3.5 FOR PROSTHETIC HEART VALVE REPLACEMENT2.5-3.5 RECURRENT THROMBOSISAnion GapSeptember 06, 2025 8:59pmDecember 2024 8:59pm10.7Venous Blood Partial Pressure VS3MlrfxpocSeptember 06, 2025 9:31pmDecemb2024 9:31pm52.0 mm[Hg]40.0-52.0Albumin/Globulin RatioJuly 07, 2025 8:56am1.0Prothrombin TimeJuly 07, 2025 8:56am July 07, 2025 8:56am10.3 sec9.0-11.6Basophils (%) (Auto)July 07, 2025 8:56amOct2024 8:56am1.3 %0.2-2.0Bedside Influenza Type B Antigen July 07, 2025 9:40amOct2024 9:40amNegativeNegative for Flu B protein antigen. Infection due to Flu Bcannot be ruled out. Flu B antigen in the sample may bebelow the detection limit of the test.Arterial Blood Base Excess July 07, 2025 11:52amOctober 2024 11:52am3.5 mmol/LAbove high normal <2.0-2.0Albumin/Globulin RatioNovemb2024 6:24amNovember 2024 6:24am 0.9Basophils (%) (Auto)July 23, 2025 6:24amNovember 2024 6:24am0.6 % 0.2-2.0Arterial Blood Base ExcessAugust 10, 2025 8:05pmNovember 2024 8:05pm5.3 mmol/LAbove high normal<2.0-2.0Bedside Influenza Type B Antigen August 10, 2025 8:15pmNovember 2024 8:15pmNegativeNegative for Flu B protein antigen. Infection due to Flu Bcannot be ruled out. Flu B antigen in the sample may bebelow the detection limit of the test.Albumin/Globulin Ratio August 10, 2025 8:35pmNovember 2024 8:35pm1.1Basophils (%) (Auto) August 10, 2025 8:35pmNovember 2024 8:35pm0.6 %0.2-2.0BUN/Creatinine RatioNove2024 5:17amNovember 2024 5:17am22.7Basophils (%) (Auto)August 11, 2025 5:17amNovember 2024 5:17am0.3 %0.2-2.0 BUN/Creatinine RatioNovember 2024 6:05amNovember 2024 6:05am23.7 HemoglobinNovember 2024 6:05amNovember 2024 6:05am12.8 g/dLBelow low .0-18.0Albumin/Globulin RatioDece2024 12:43pmDecember , 2024 12:43pm1.1Basophils (%) (Auto)August 22, 2025 12:43pmDecember 2024 12:43pm0.5 %0.2-2.0BUN/Creatinine RatioDecember 5 2:59pmDecember 2024 2:59pm9.3HemoglobinDece2024 8:59pmDecember 2024 8:59pm12.5 g/dLBelow low rtbeyh10.0-18.0Prothrombin TimeDece2024 8:59pmDecember 2024 8:59pm10.3 sec9.0-11.6Albumin/Globulin RatioDece2024 8:59pmDecember 2024 8:59pm1.1Venous Blood [facility]20[facility] 9:31pm September 06, 2025 9:31pm7.3557.330-7.430AlbuminOct2024 8:56am3.7 g/dL3.4-5.0Eosinophils # (Auto)July 07, 2025 8:56amOct2024 8:56am0.0 10 3/uL0.0-0.7Blood Gas Mode BiPAPJuly 07, 2025 11:52amOct2024 11:52am16/8AlbuminJuly 23, 2025 6:24amNovemb2024 6:24am 3.3 g/dLBelow low normal3.4-5.0Eosinophils # (Auto)July 23, 2025 6:24am July 23, 2025 6:24am0.0 10 3/uL0.0-0.7Arterial Blood AKR3PelmhjknAugust 10, 2025 8:05pmNov2024 8:05pm30.3 mmol/LAbove high .0-26.0 AlbuminNov2024 8:35pmNov2024 8:35pm3.5 g/dL3.4-5.0 Eosinophils # (Auto)August 10, 2025 8:35pmNov2024 8:35pm0.0 10 3/uL0.0-0.7Blood Urea NitrogenAugust 11, 2025 5:17amNovember 2024 5:17am15.0 mg/dL7.0-18.0Eosinophils # (Auto)August 11, 2025 5:17amNovember 2024 5:17am0.0 10 3/uL0.0-0.7Blood Urea NitrogenNovember 2024 6:05am August 14, 2025 6:05am22.0 mg/dLAbove high normal7.0-18.0Mean Corpuscular HemoglobinNovember 2024 6:05amNovember 2024 6:05am29.5 pg25.9-34.0 AlbuminDecember 2024 12:43pmDecember 2024 12:43pm3.5 g/dL3.4-5.0 Eosinophils # (Auto)August 22, 2025 12:43pmDecember 2024 12:43pm0.0 10 3/uL0.0-0.7Blood Urea NitrogenDecember 2024 2:59pmDecember 2024 2:59pm8.0 mg/dL7.0-18.0Mean Corpuscular HemoglobinDecember 2024 8:59pm September 06, 2025 8:59pm29.6 pg25.9-34.0AlbuminDecember 2024 8:59pm September 06, 2025 8:59pm3.6 g/dL3.4-5.0Alkaline PhosphataseOctober 2024 8:56am73 U/E80-394Dnldjqoyxjo (%) (Auto)July 07, 2025 8:56amOctober 2024 8:56am0.2 %Below low normal0.9-7.9RbR2Enrkopc 2024 11:52amOctober 2024 11:52am25 %Alkaline PhosphataseNovember 2024 6:24amNovember 2024 6:24am80 U/K82-889Ejlnpkpvtpt (%) (Auto)July 23, 2025 6:24amNovember 2024 6:24am0.0 %Below low normal0.9-7.0Blood Gas Liter FlowAugust 10, 2025 8:05pmNov2024 8:47we9Rltpmwih PhosphataseAugust 10, 2025 8:35pmNov2024 8:35pm73 U/P64-282Wjvgjvtbedz (%) (Auto)August 10, 2025 8:35pmNov2024 8:35pm0.2 %Below low normal0.9-7.0Calcium Level August 11, 2025 5:17amNovember 2024 5:17am8.9 mg/dL8.5-10.1Eosinophils (%) (Auto)August 11, 2025 5:17amNovember 2024 5:17am0.0 %Below low normal0.9-7.0Calcium LevelAugust 14, 2025 6:05amNovember 2024 6:05am 9.0 mg/dL8.5-10.1Mean Corpuscular Hemoglobin ConcentAugust 14, 2025 6:05am August 14, 2025 6:05am31.6 g/dL29.9-35.2Alkaline PhosphataseDece2024 12:43pmDecember 2024 12:43pm66 U/F07-277Ytnoxflqszy (%) (Auto)August 22, 2025 12:43pmDecember 2024 12:43pm0.0 %Below low normal0.9-7.0Calcium LevelDece2024 2:59pmDecember 2024 2:59pm9.3 mg/dL8.5-10.1Mean Corpuscular Hemoglobin ConcentDecember 2024 8:59pmDecember 2024 8:59pm32.3 g/dL29.9-35.2Alkaline PhosphataseDeceer 2024 8:59pmDecember 2024 8:59pm73 U/J38-482Nofznsz Aminotransferase (ALT/SGPT)July 07, 2025 8:56am26 U/F09-46FfhmxgrveuGkugtsm 2024 8:56amOctober 2024 8:56am43.7 %42.0-54.0Arterial Blood KXS6Orxzonv2024 11:52amOctober 2024 11:52am28.5 mmol/LAbove high .0-26.0Alanine Aminotransferase (ALT/SGPT)July 23, 2025 6:24amNovember 2024 6:24am33 U/L16-63 HematocritNov2024 6:24amNovember 2024 6:24am38.4 %Below low .0-54.0Oxygen Delivery DeviceAugust 10, 2025 8:05pmNov2024 8:05pmNASAL CANNULAAlanine Aminotransferase (ALT/SGPT)August 10, 2025 8:35pmNov2024 8:35pm29 U/V36-31LbvqraqdozBzrkpgwm 2024 8:35pm August 10, 2025 8:35pm38.7 %Below low euwees20.0-54.0Chloride LevelNov2024 5:17amNovember 2024 5:64ul599 mmol/A63-209UwsxuyvlosVybannab 20th, 2025 5:17amNovember 2024 5:17am36.1 %Below low qotshd25.0-54.0 Chloride LevelNovbanner 2024 6:05amNovember 2024 6:05am99 mmol/L 98-107Mean Corpuscular VolumeNov2024 6:05amNovember 2024 6:05am93.3 fL80.0-94.0Alanine Aminotransferase (ALT/SGPT)August 22, 2025 12:43pmDecemb2024 12:43pm56 U/T62-90HraispywhxTgtimgqg 1st, 2025 12:43pm August 22, 2025 12:43pm39.3 %Below low rmzasa60.0-54.0Chloride LevelDece2024 2:59pmDecemb2024 2:84sq424 mmol/K31-430Cmsh Corpuscular VolumeDecemb2024 8:59pmDecember 2024 8:59pm91.7 fL80.0-94.0 Alanine Aminotransferase (ALT/SGPT)September 06, 2025 8:59pmDecemb2024 8:59pm27 U/D86-67Gqqmbqrhx Amino Transf (AST/SGOT)July 07, 2025 8:56am19 U/V29-21DhrisuvllnNlryvht 16th, 2025 8:56amOct2024 8:56am14.0 g/dL 14.0-18.0Reference Lab Test #2 ResultJuly 07, 2025 11:52amOctober 2024 11:52am14.3Aspartate Amino Transf (AST/SGOT)July 23, 2025 6:24am July 23, 2025 6:24am39 U/LAbove high etrbxo22-57LykztilfsfMuvcfman 1st, 2025 6:24amNovemb2024 6:24am12.1 g/dLBelow low jnodup19.0-18.0Arterial Blood Oxygen SaturationNov2024 8:05pmNov2024 8:05pm94.6 %Aspartate Amino Transf (AST/SGOT)August 10, 2025 8:35pmNov2024 8:35pm17 U/U80-87GmzjcllpecKwdgbkke 19th, 2025 8:35pmNov2024 8:35pm 12.1 g/dLBelow low adqoxz72.0-18.0Carbon Dioxide LevelNov2024 5:17am August 11, 2025 5:17am30.1 mmol/L21.0-32.0HemoglobinNov2024 5:17amNovemb2024 5:17am11.3 g/dLBelow low tjdana67.0-18.0Carbon Dioxide LevelNovember 2024 6:05amNovember 2024 6:05am32.8 mmol/LAbove high ymxpjn57.0-32.0Mean Platelet VolumeNovember 5 6:05amNovember 2024 6:05am9.7 fL9.5-13.5Aspartate Amino Transf (AST/SGOT)August 22, 2025 12:43pm August 22, 2025 12:43pm29 U/V79-19RxiiefipgmCnlecdaa 1st, 2025 12:43pm August 22, 2025 12:43pm12.4 g/dLBelow low jzuelr05.0-18.0Carbon Dioxide Level September 02, 2025 2:59pmDecember 2024 2:59pm31.3 mmol/L21.0-32.0Mean Platelet VolumeDecemb2024 8:59pmDecember 2024 8:59pm9.6 fL 9.5-13.5Aspartate Amino Transf (AST/SGOT)September 06, 2025 8:59pmDecember 2024 8:59pm19 U/Y90-88TPP/Creatinine RatioOct2024 8:56am18.9 Immature Granulocyte # (Auto)July 07, 2025 8:56amOctober 2024 8:56am 0.06 10 3/uLAbove high normal0.00-0.03Oxygen Delivery DeviceOct2024 11:52amOctober 2024 11:52amBIPAPBUN/Creatinine RatioNove2024 6:24amNovember 2024 6:24am16.9Immature Granulocyte # (Auto)July 23, 2025 6:24amNovember 2024 6:24am0.07 10 3/uLAbove high normal0.00-0.03 Arterial Blood Partial Pressure WP3QuogfpwdAugust 10, 2025 8:05pmNov2024 8:05pm50.8 mm[Hg]Above upper panic elzihd79.0-45.0RESULTS CALLED TO MYLA NOVAK, RNBUN/Creatinine RatioNovemb2024 8:35pmNov2024 8:35pm19.2Immature Granulocyte # (Auto)August 10, 2025 8:35pmNov5 8:35pm0.04 10 3/uLAbove high normal0.00-0.03CreatinineAugust 11, 2025 5:17amNovember 2024 5:17am0.66 mg/dLBelow low normal0.70-1.30Immature Granulocyte # (Auto)August 11, 2025 5:17amNovember 2024 5:17am0.05 10 3/uLAbove high normal0.00-0.03CreatinineNovember 2024 6:05amNovember 2024 6:05am0.93 mg/dL0.70-1.30Platelet CountNov2024 6:05amNovember 2024 6:23ju488 10 3/gQ197-478IYS/Creatinine RatioDece2024 12:43pmDecember , 2024 12:43pm12.0Immature Granulocyte # (Auto)August 22, 2025 12:43pmDecember 2024 12:43pm0.13 10 3/uLAbove high normal0.00-0.03 CreatinineDece2024 2:59pmDecember 2024 2:59pm0.86 mg/dL 0.70-1.30Platelet CountDece2024 8:59pmDecember 2024 8:59kc426 10 3/zX382-343TJW/Creatinine RatioDece2024 8:59pmDecember 2024 8:59pm12.3Blood Urea NitrogenOctober 2024 8:56am18.0 mg/dL7.0-18.0Immature Granulocyte % (Auto)July 07, 2025 8:56amOctober 2024 8:56am0.6 % Above high normal0.0-0.5Arterial Blood Oxygen SaturationOct2024 11:52amOctober 2024 11:52am98.6 %Blood Urea NitrogenNov2024 6:24amNovember 2024 6:24am12.0 mg/dL7.0-18.0Immature Granulocyte % (Auto) July 23, 2025 6:24amNovember 2024 6:24am0.7 %Above high normal0.0-0.5 Arterial Blood pHAugust 10, 2025 8:05pmAugust 10, 2025 8:05pm7.385 7.350-7.450Blood Urea NitrogenAugust 10, 2025 8:35pmAugust 10, 2025 8:35pm15.0 mg/dL7.0-18.0Immature Granulocyte % (Auto)August 10, 2025 8:35pm August 10, 2025 8:35pm0.3 %0.0-0.5Estimated GFR ()August 11, 2025 5:17amNovember 2024 5:17am>60>=60 mL/min/1.73m 2Immature Granulocyte % (Auto)August 11, 2025 5:17amNoveer 2024 5:17am0.6 % Above high normal0.0-0.5Estimated GFR ()August 14, 2025 6:05amNoveer 2024 6:05am>60>=60 mL/min/1.73m 2Red Blood CountAugust 14, 2025 6:05amNovember 2024 6:05am4.34 10 6/uLBelow low normal4.70-6.10 Blood Urea NitrogenAugust 22, 2025 12:43pmDece2024 12:43pm10.0 mg/dL7.0-18.0Immature Granulocyte % (Auto)August 22, 2025 12:43pmDecemb2024 12:43pm1.0 %Above high normal0.0-0.5Estimated GFR () September 02, 2025 2:59pmDecemb2024 2:59pm>60>=60 mL/min/1.73m 2Red Blood CountDece2024 8:59pmDeceer 2024 8:59pm4.22 10 6/uLBelow low normal4.70-6.10Blood Urea NitrogenDecemb2024 8:59pmDecember 2024 8:59pm10.0 mg/dL7.0-18.0Calcium LevelOctmcd[facility] 2024 8:56am8.9 mg/dL 8.5-10.1Lymphocytes # (Auto)July 07, 2025 8:56amOct2024 8:56am 2.2 10 3/uL1.2-3.8Arterial Blood Partial Pressure FQ7Luvfthm2024 11:52am July 07, 2025 11:52am47.6 mm[Hg]Above high klydxd14.0-45.0Calcium Level July 23, 2025 6:24amNovember 2024 6:24am9.2 mg/dL8.5-10.1Lymphocytes # (Auto)July 23, 2025 6:24amNovemb2024 6:24am1.1 10 3/uLBelow low normal1.2-3.8Arterial Blood Partial Pressure V6Ygnppyed2024 8:05pm August 10, 2025 8:05pm70.4 mm[Hg]Below low cbbjuq23.0-100.0Calcium Level August 10, 2025 8:35pmNovbanner 2024 8:35pm8.7 mg/dL8.5-10.1Lymphocytes # (Auto)August 10, 2025 8:35pmNov2024 8:35pm1.2 10 3/uL1.2-3.8 Estimated GFR (Non- AmericanNov2024 5:17amNovemb2024 5:17am>60>=60 mL/min/1.73m 2Lymphocytes # (Auto)August 11, 2025 5:17am August 11, 2025 5:17am0.4 10 3/uLBelow low normal1.2-3.8Estimated GFR (Non- AmericanNovember 2024 6:05amNovember 2024 6:05am>60>=60 mL/min/1.73m 2Red Cell Distribution WidthNovember 2024 6:05amNovember 2024 6:05am12.8 %11.0-15.0Calcium LevelDecemb2024 12:43pmDecember 2024 12:43pm9.0 mg/dL8.5-10.1Lymphocytes # (Auto)August 22, 2025 12:43pm August 22, 2025 12:43pm1.4 10 3/uL1.2-3.8Estimated GFR (Non- September 02, 2025 2:59pmDecember 2024 2:59pm>60>=60 mL/min/1.73m 2Red Cell Distribution WidthDecemb2024 8:59pmDecember 2024 8:59pm12.7 %11.0-15.0Calcium LevelDecember 2024 8:59pmDecember 2024 8:59pm9.2 mg/dL8.5-10.1Chloride LevelOctober 2024 8:33wc348 mmol/V73-108Sffbrbgyylm (%) (Auto)July 07, 2025 8:56amOctober 2024 8:56am20.3 %Below low wywtbz95.5-60.0Arterial Blood pHOctober 2024 11:52amOctober 2024 11:52am7.3867.350-7.450Chloride LevelNov2024 6:24amNovember 2024 6:23zt959 mmol/K93-282Ajiuojhiqcn (%) (Auto)July 23, 2025 6:24amNovember 2024 6:24am10.0 %Below low bmuimg12.5-60.0Chloride LevelNovember 2024 8:35pmNovember 2024 8:35ls423 mmol/F19-978Zazuacvtbie (%) (Auto)August 10, 2025 8:35pmNovember 2024 8:35pm9.8 %Below low dgnigo65.5-60.0Glucose LevelNov2024 5:17amNovember 2024 5:69hn418 mg/dLAbove high emzkyx53-427Twuigdojtvy (%) (Auto)August 11, 2025 5:17amNovember 2024 5:17am4.4 %Below low lkkusy74.5-60.0Glucose LevelNovember 2024 6:05am August 14, 2025 6:26db919 mg/dLAbove high -407Okcrpcudc White Blood CountNov2024 6:05amNovember 2024 6:05am14.4 10 3/uLAbove high normal4.0-11.0Chloride LevelDecemb2024 12:43pmDecember 2024 12:43pm 105 mmol/Z02-056Jmyvrhjbhdw (%) (Auto)August 22, 2025 12:43pmDecember 2024 12:43pm11.3 %Below low .5-60.0Glucose LevelDecemb2024 2:59pmDecember 2024 2:78oy083 mg/sU12-349Tykcaecsd White Blood Count September 06, 2025 8:59pmDecember 2024 8:59pm9.9 10 3/uL4.0-11.0Chloride LevelDecemb2024 8:59pmDecember 2024 8:75ia706 mmol/D67-822Fgitfi Dioxide LevelOct2024 8:56am29.5 mmol/L21.0-32.0Mean Corpuscular HemoglobinOct2024 8:56amOct2024 8:56am29.9 pg25.9-34.0 Arterial Blood Partial Pressure L6Grxeaxo2024 11:52amOct2024 11:47qo485.0 mm[Hg]Above high kfqfit14.0-100.0Carbon Dioxide LevelNov2024 6:24amNovemb2024 6:24am29.0 mmol/L21.0-32.0Mean Corpuscular HemoglobinNovember 2024 6:24amNovember 2024 6:24am29.8 pg25.9-34.0 Carbon Dioxide LevelNovember 2024 8:35pmNovember 2024 8:35pm32.6 mmol/LAbove high ceiptd50.0-32.0Mean Corpuscular HemoglobinNovember 2024 8:35pmNovember 2024 8:35pm29.7 pg25.9-34.0Potassium LevelNovember 2024 5:17amNovember 2024 5:17am4.6 mmol/L3.5-5.1Mean Corpuscular HemoglobinNovember 2024 5:17amNovember 2024 5:17am29.4 pg25.9-34.0 Potassium LevelNovbanner 2024 6:05amNovember 2024 6:05am3.6 mmol/L 3.5-5.1Carbon Dioxide LevelDece2024 12:43pmDecember 2024 12:43pm 32.7 mmol/LAbove high jdawks88.0-32.0Mean Corpuscular HemoglobinDecember 2024 12:43pmDecember 2024 12:43pm29.5 pg25.9-34.0Potassium LevelDeselect [facility] hospital2024 2:59pmDecember 2024 2:59pm3.7 mmol/L3.5-5.1Carbon Dioxide Level September 06, 2025 8:59pmDecember 2024 8:59pm31.1 mmol/L21.0-32.0 CreatinineOct2024 8:56am0.95 mg/dL0.70-1.30Mean Corpuscular Hemoglobin ConcentOct2024 8:56amOctober 2024 8:56am32.0 g/dL 29.9-35.2Blood Gas Sample SiteJuly 07, 2025 11:52amOctober 2024 11:52amRRCreatinineNovember 2024 6:24amNovember 2024 6:24am0.71 mg/dL 0.70-1.30Mean Corpuscular Hemoglobin ConcentNovbanner 2024 6:24amNovember 2024 6:24am31.5 g/dL29.9-35.2[facility] 8:35pmNovember 2024 8:35pm0.78 mg/dL0.70-1.30Mean Corpuscular Hemoglobin [facility] 8:35pmNovbanner 2024 8:35pm31.3 g/dL29.9-35.2Sodium Level August 11, 2025 5:17amNovember 2024 5:18ms497 mmol/K919-657Tjdm Corpuscular [facility] 5:17amNovember 2024 5:17am31.3 g/dL29.9-35.2Sodium LevelHarris [facility]2024 6:05amNovember 2024 6:49ry102 mmol/Q502-385PiyhfbqyckQxjsdjkp 2024 12:43pmDecember 2024 12:43pm0.83 mg/dL0.70-1.30Mean Corpuscular Hemoglobin [facility]Gl[facility]20[facility] 12:43pmDecember 2024 12:43pm31.6 g/dL29.9-35.2Sodium LevelDeselect specialty hospital2024 2:59pmDecember 2024 2:99vh694 mmol/P773-857XrxmmpflcfIjgiouhd 2024 8:59pmDecember 2024 8:59pm0.81 mg/dL0.70-1.30Estimated GFR ()July 07, 2025 8:56am>60>=60 mL/min/1.73m 2Mean Corpuscular VolumeOct2024 8:56amOctober 2024 8:56am93.2 fL 80.0-94.0Blood Gas Set Respiration RateOct2024 11:52amOctober 2024 11:91xw82Btflgyiqy GFR ()July 23, 2025 6:24amNovember 2024 6:24am>60>=60 mL/min/1.73m 2Mean Corpuscular VolumeNov2024 6:24amNovember 2024 6:24am94.6 fLAbove high fynpte22.0-94.0Estimated GFR ()August 10, 2025 8:35pmNovember 2024 8:35pm>60>=60 mL/min/1.73m 2Mean Corpuscular VolumeNovember 2024 8:35pmNovember 2024 8:35pm94.9 fLAbove high kmwgfi55.0-94.0Mean Corpuscular VolumeNov2024 5:17amNovember 2024 5:17am93.8 fL80.0-94.0Estimated GFR ()August 22, 2025 12:43pmDecember 2024 12:43pm>60>=60 mL/min/1.73m 2Mean Corpuscular VolumeDece2024 12:43pmDecember 2024 12:43pm93.3 fL80.0-94.0Estimated GFR ()September 06, 2025 8:59pmDecember 2024 8:59pm>60>=60 mL/min/1.73m 2Estimated GFR (Non- AmericanOct2024 8:56am>60>=60 mL/min/1.73m 2Monocytes # (Auto) July 07, 2025 8:56amOctober 2024 8:56am0.9 10 3/uLAbove high normal 0.3-0.8Blood Gas Tidal VolumeOctober 2024 11:52amOctober 2024 11:17th929Hhmacabgb GFR (Non- AmericanNov2024 6:24amNovember 2024 6:24am>60>=60 mL/min/1.73m 2Monocytes # (Auto)July 23, 2025 6:24amNovember 2024 6:24am0.9 10 3/uLAbove high normal0.3-0.8Estimated GFR (Non- AmericanAugust 10, 2025 8:35pmNovember 2024 8:35pm>60>=60 mL/min/1.73m 2Monocytes # (Auto)August 10, 2025 8:35pmNovember 2024 8:35pm1.2 10 3/uLAbove high normal0.3-0.8Monocytes # (Auto)August 11, 2025 5:17amNovember 2024 5:17am0.1 10 3/uLBelow low normal0.3-0.8Estimated GFR (Non- Americance2024 12:43pmDecemb2024 12:43pm>60>=60 mL/min/1.73m 2Monocytes # (Auto)August 22, 2025 12:43pmDecember 2024 12:43pm1.2 10 3/uLAbove high normal0.3-0.8Estimated GFR (Non- September 06, 2025 8:59pmDecember 2024 8:59pm>60>=60 mL/min/1.73m 2 GlobulinOctober 2024 8:56am3.8 g/dLMonocytes (%) (Auto)July 07, 2025 8:56amOctober 2024 8:56am8.1 %1.7-12.0GlobulinNov2024 6:24am July 23, 2025 6:24am3.5 g/dLMonocytes (%) (Auto)July 23, 2025 6:24am July 23, 2025 6:24am8.1 %1.7-12.0GlobulinNovember 2024 8:35pmNovember 2024 8:35pm3.3 g/dLMonocytes (%) (Auto)August 10, 2025 8:35pmNov2024 8:35pm9.3 %1.7-12.0Monocytes (%) (Auto)August 11, 2025 5:17am August 11, 2025 5:17am1.5 %Below low normal1.7-12.0GlobulinDecemb2024 12:43pmDecember 2024 12:43pm3.1 g/dLMonocytes (%) (Auto)August 22, 2025 12:43pmDecember 2024 12:43pm9.6 %1.7-12.0GlobulinDecember 2024 8:59pmDecember 2024 8:59pm3.4 g/dLGlucose LevelOctober 2024 8:56am 154 mg/dLAbove high cggoma37-271Luhj Platelet VolumeOctober 2024 8:56am July 07, 2025 8:56am9.3 fLBelow low normal9.5-13.5Glucose LevelNov2024 6:24amNovemb2024 6:24am95 mg/yG62-323Mviy Platelet Volume July 23, 2025 6:24amNovember 2024 6:24am9.2 fLBelow low normal9.5-13.5 Glucose LevelNovember 2024 8:35pmNovember 2024 8:84ws867 mg/dLAbove high -396Wmmp Platelet VolumeNovember 2024 8:35pmNovember 2024 8:35pm9.5 fL9.5-13.5Mean Platelet VolumeNovember 2024 5:17amNovember 2024 5:17am9.7 fL9.5-13.5Glucose LevelDecemb2024 12:43pmDecember 2024 12:43pm94 mg/mT16-405Bxpq Platelet VolumeDecemb2024 12:43pm August 22, 2025 12:43pm9.3 fLBelow low normal9.5-13.5Glucose LevelDeceer 2024 8:59pmDecember 2024 8:55el987 mg/dLAbove high clsjaj08-770 Potassium LevelOctober 2024 8:56am4.4 mmol/L3.5-5.1Neutrophils # (Auto) July 07, 2025 8:56amOctober 2024 8:56am7.4 10 3/uLAbove high normal 1.4-6.5Potassium LevelNovember 2024 6:24amNovember 2024 6:24am4.0 mmol/L3.5-5.1Neutrophils # (Auto)July 23, 2025 6:24amNovember 2024 6:24am8.5 10 3/uLAbove high normal1.4-6.5Potassium LevelNovember 2024 8:35pmNovember 2024 8:35pm4.0 mmol/L3.5-5.1Neutrophils # (Auto)August 10, 2025 8:35pmNovember 2024 8:35pm10.1 10 3/uLAbove high normal1.4-6.5 Neutrophils # (Auto)August 11, 2025 5:17amNovember 2024 5:17am8.2 10 3/uLAbove high normal1.4-6.5Potassium LevelDecemb2024 12:43pmDecember 2024 12:43pm4.1 mmol/L3.5-5.1Neutrophils # (Auto)August 22, 2025 12:43pm August 22, 2025 12:43pm9.7 10 3/uLAbove high normal1.4-6.5Potassium Level September 06, 2025 8:59pmDecember 2024 8:59pm3.8 mmol/L3.5-5.1Sodium LevelOctober 2024 8:20qs714 mmol/D044-636Bnrqldghnwm (%) (Auto)July 07, 2025 8:56amOctober 2024 8:56am69.5 %43.0-75.0Sodium LevelNovember 2024 6:24amNovember 2024 6:28cw586 mmol/P307-071Xfewdumfzii (%) (Auto) July 23, 2025 6:24amNovember 2024 6:24am80.6 %Above high normal 43.0-75.0Sodium LevelNov2024 8:35pmNovember 2024 8:32ek997 mmol/W353-073Motcrwpdmbf (%) (Auto)August 10, 2025 8:35pmNov2024 8:35pm79.8 %Above high mjcvhe84.0-75.0Neutrophils (%) (Auto)August 11, 2025 5:17amNovember 2024 5:17am93.2 %Above high ahsajg22.0-75.0Sodium Level August 22, 2025 12:43pmDecember 2024 12:53jg576 mmol/R272-943Lreajhviyfy (%) (Auto)August 22, 2025 12:43pmDecember 2024 12:43pm77.6 %Above high phmsom03.0-75.0Sodium LevelDece2024 8:59pmDecember 2024 8:59pm 142 mmol/S645-910Mvyhq BilirubinOctmcdowell arh hospital 2024 8:56am0.8 mg/dL0.2-1.0 Platelet CountOctmcdowell arh hospital 2024 8:56amOctober 2024 8:18lh492 10 3/uL 150-450Total BilirubinNov2024 6:24amNovember 2024 6:24am0.7 mg/dL0.2-1.0Platelet CountNov2024 6:24amNovember 2024 6:46lg743 10 3/mZ269-610Qjgny BilirubinNov2024 8:35pmNov2024 8:35pm0.6 mg/dL0.2-1.0Platelet CountNov2024 8:35pmNov2024 8:75vs943 10 3/wA324-265Ifzkrvip CountNovember 2024 5:17amNovember 2024 5:12dh930 10 3/tH842-830Maryc BilirubinDecember 2024 12:43pm August 22, 2025 12:43pm0.8 mg/dL0.2-1.0Platelet CountDecember 2024 12:43pmDecember 2024 12:40zv269 10 3/wG088-804Qgofd BilirubinDecember 2024 8:59pmDecember 2024 8:59pm0.8 mg/dL0.2-1.0Total ProteinOctober 2024 8:56am7.5 g/dL6.4-8.2Red Blood CountOctober 2024 8:56amOctober 2024 8:56am4.69 10 6/uLBelow low normal4.70-6.10Total ProteinNovember 2024 6:24amNovember 2024 6:24am6.8 g/dL6.4-8.2Red Blood CountNovember 2024 6:24amNovember 2024 6:24am4.06 10 6/uLBelow low normal4.70-6.10Total ProteinNovember 2024 8:35pmNovember 2024 8:35pm6.8 g/dL6.4-8.2Red Blood CountNovember 2024 8:35pmNovember 2024 8:35pm4.08 10 6/uLBelow low normal4.70-6.10Red Blood CountNovember 2024 5:17amNovember 2024 5:17am3.85 10 6/uLBelow low normal4.70-6.10Total ProteinDecember 2024 12:43pmDecember 2024 12:43pm6.6 g/dL6.4-8.2Red Blood CountDecember 2024 12:43pmDecember 2024 12:43pm4.21 10 6/uLBelow low normal4.70-6.10Total ProteinDecember 2024 8:59pmDecember 2024 8:59pm7.0 g/dL6.4-8.2Red Cell Distribution WidthOctober 2024 8:56amOctober 2024 8:56am12.0 % 11.0-15.0Red Cell Distribution WidthNovember 2024 6:24amNovember 2024 6:24am12.4 %11.0-15.0Red Cell Distribution WidthNovember 2024 8:35pm August 10, 2025 8:35pm12.8 %11.0-15.0Red Cell Distribution WidthNovember 2024 5:17amNovember 2024 5:17am12.6 %11.0-15.0Red Cell Distribution WidthDecember 2024 12:43pmDecember 2024 12:43pm12.7 %11.0-15.0 Corrected White Blood CountOctober 2024 8:56amOctober 2024 8:56am 10.7 10 3/uL4.0-11.0Corrected White Blood CountNov2024 6:24amNovember 2024 6:24am10.6 10 3/uL4.0-11.0Corrected White Blood CountNovember 2024 8:35pmNovember 2024 8:35pm12.6 10 3/uLAbove high normal4.0-11.0 Corrected White Blood CountNovember 2024 5:17amNovember 2024 5:17am 8.8 10 3/uL4.0-11.0Corrected White Blood CountDece2024 12:43pmDecember 2024 12:43pm12.6 10 3/uLAbove high normal4.0-11.0 Vital Signs Vital Reading Result Reference Range Collection Date/Time Height 70 [in_i] August 16, 2025 2:93joGtanlc18.25 kgAugust 16, 2025 2:22pmBody Ornbvtvathb22.4 [degF]97.6-99.0Nov2024 2:22pmHeart Rate95 /sqq98-480 August 16, 2025 2:22pmRespiratory rate22 /jwm84-53SgogodzfAugust 16, 2025 2:22pm Oxygen saturation by Pulse iuhklhcv54 %95-100August 16, 2025 2:29pmBP Bdgqqnec233 mm[Hg]100-140August 16, 2025 2:22pmBP Rrdclkkjk88 mm[Hg]60-100 August 16, 2025 2:22pmBMI (Body Mass Index)30.1 kg/q8HzvttzlbAugust 16, 2025 2:22pmInhaled oxygen flow rate3 L/minAugust 16, 2025 2:18wpSsqpic13 [in_i] August 29, 2025 11:75omVgcxba59.70 kgGl[facility]2024 11:30amBody Wyfjkolqymb86.1 [degF]97.6-99.0[facility] [address] [facility] 2024 11:30amHeart Vuqi783 /min 60-1002024 11:30amRespiratory rate24 /bhu45-04Bhxsrloh 8th, 2025 11:30amOxygen saturation by Pulse fjikyman77 %95-100[facility]2024 11:30amBP Rtkqvxzl936 mm[Hg]100-140Dece2024 11:30amBP Oplzjqflz63 mm[Hg]60-100 August 29, 2025 11:30amBMI (Body Mass Index)30.2 kg/x7Riwmqsov 2024 11:30amInhaled oxygen flow rate2 L/minDec[facility]20[facility] 11:72qbNfrkzb47 [in_i] September 08, 2025 8:10cnMyilph85.98 kgDece2024 8:27amHeart Rate94 /umf75-204VfwlirvuSeptember 08, 2025 8:27amRespiratory rate20 /cpe14-01Ysvljcgf 18th, 2025 8:27amOxygen saturation by Pulse neeqpdcx40 %95-100Dece2024 8:27amBP Eljtzljn30 mm[Hg]100-140Dece2024 8:27amBP Skwreddoe86 mm[Hg] 60-100Deceer 2024 8:27amBMI (Body Mass Index)29.4 kg/i7BbjpafdjSeptember 08, 2025 8:27amInhaled oxygen flow rate3 L/minDece2024 8:27am Advance Directives Advance Directive Response Recorded Date/ Time Advance Directives No August 9:24am Insurance Providers Guarantor Sam Carrasco Address [address] [place] [address]Upmszlf Info.Home Phone: Payer Group Member ID Coverage Type Subscriber Relationship to Subscriber Effective Date Expiration Date Medicaid [id number] K Carrasco Id: [id number] [address] [place] [address] Home Phone: SelfMedicare [id number] K Carrasco Id: [id number] [address] [place] [address] Home Phone: [facility] P[facility] [id number] K Carrasco Id: [id number] [address] [place] [address] Home Phone: Self Encounters Encounter Location(s) Arrival/Admit Date Discharge/Departure Date Discharge/Departure Disposition Provider(s) Non-patient / Non-visit -[facility] O ctober 2024 10:03am Henok Palma-patient / Ndf-ybngi-Uaunj [facility] 7:24am([place]) Marta Ceja-patient / Ggx-txfrs-Wqagf [facility] 2024 8:05pmMarta Parker-patient / Fhr-fnmnx-Wwwpz [facility] 2024 5:17aHenok Cheatham-patient / Dzz-zwdrm-Rzbuu [facility] 2024 6:05am IRVING Del Angeleparted Physician/Provider Office Visit-[facility] [place] 2024 2:18pmNovember 2024 3:06pmDischarged to home care or self care (routine discharge)Azul Quezada NP-CNon-patient / Non-visit- [facility] 2024 12:43pmMariam A Diab , MDDeparted Physician/Provider Office Visit-[facility] 11:23amDecember 2024 12:06pmDischarged to home care or self care (routine discharge)PANKAJ SchulteCNon-patient / Usf-donmu-Zguyp [facility] 2024 2:59pmAzul Quezada NP-CNon-patient / Sqb-rllyn-Ouhnv [facility] 2024 9:31pmOutside ProviderDeparted Physician/Provider [facility] 8:22amDecember 2024 9:39amDischarged to home care or self care (routine discharge)Trav Gudino APRN [facility] Recent Diagnosis Onset Date Admit Date Centrilobular [...] vascular accident) Unknown August 29, 2025 11:23am Essential hypertension Unknown August 29, 2025 11:23am Left arm pain Unknown August 29 11:23am Mixed hyperlipidemia Unknown August 11:23am Supplemental oxygen dependent Unknown 2024 11:23am Vertebral artery occlusion Unknown Dece2024 11:23am Centrilobular emphysema Unknown September 08, 2025 8:22am Chronic hypoxemic respiratory failure Unknown September 08, 2025 8:22am Nicotine dependence in remission Unknown September 08, 2025 8:22am COPD (chronic obstructive pulmonary disease) Unk nown September 08, 2025 8:22am Assessments Diagnosis Onset Date Resolution Status Admit Date Centrilobular emphysema acuteNov2024 2:18pmCVA (cerebral vascular accident)acuteAugust 16, 2025 2:18pmDepression with anxietyacuteAugust 16, 2025 2:18pmEssential hypertensionacuteAugust 16, 2025 2:18pmMixed hyperlipidemiaacuteNov2024 2:18pmVertebral artery occlusionacuteNov2024 2:18pm Bilateral lower extremity edemaacuteDecepres[facility] 2024 11:23amCentrilobular emphysemaacuteDeceprescott va medical center 2024 11:23amCVA (cerebral vascular accident)acute August 29, 2025 11:23amEssential hypertensionacuteDeceer 2024 11:23am Left arm painacuteDeceer 2024 11:23amMixed hyperlipidemiaacuteDeceprescott va medical center 2024 11:23amSupplemental oxygen dependentacuteDeceprescott va medical center 2024 11:23am Vertebral artery occlusionacuteDeceprescott va medical center 2024 11:23amCentrilobular emphysema acuteDece2024 8:22amChronic hypoxemic respiratory failureacute September 08, 2025 8:22amNicotine dependence in remissionacuteDeceer 2024 8:22amCOPD (chronic obstructive pulmonary disease)chronicDeceer 2024 8:22am Plan of Treatment Author Azul Quezada [facility] 2024 1:03pmwas under the care of glenroy needs established with new pulm will work on this also needs to have updated PFT completed recent [facility] hospitalization for exacerbation last low dose CT chest 12/07/24 recent ER visit w swelling, given lasix recommend low sodium diet, compression stockings check basic elevate legs as much as possible, and elevate LUE as well Please check blood pressure daily and record [...] on statin as well see neuro notes does not feel that home health PT is helping, he would like something more structured and would like to do out patient therapy he does have a person who can take him to therapy appts on statin therapy check labs yearly and prn dose changes needs supplies for oxygen Author Azul Quezada [facility]2024 4:32pmPlease check blood pressure daily and record [...] neuro notes was under the care of glenroy nguyễn established with new pulm will work on this also needs to have updated PFT completed recent [facility] hospitalization for exacerbation last low dose CT chest 12/07/24 on statin therapy check labs yearly and prn dose changes Future Tests Future scheduled test information is unavailable Pending Tests Test Name Ordered Date Scheduled Date XR forearm LT 2V* August 29, 2025 12:37pm XR humerus LT*August 29, 2025 12:36pm Future Visits Future appointment information is unavailable Future Procedures Procedure Name Ordered Date Scheduled Date Complete Pulmonary Function August 16, 2025 4:30pm Future Medications Future medication information is unavailable Patient Instructions Patient instructions are unavailable
[2025-09-09 22:13] VITALS: PULSE 102; TEMP 36.9; O2SAT 97; BMI 25.7
--- NOTE | 2025-09-09 22:14 | PC.NURSE ---
Wears oxygen at 3LPM/NC at home
--- NOTE | 2025-09-09 22:17 | PC.NURSE ---
Hard reddened area to right groin, no drainage.
--- NOTE | 2025-09-09 22:25 | CT_ITS ---
The [address] [address] Patient Name: JUANITA KRAMER MRN: [id number] date: 1960 Sex: M Assigned Patient Location: ER Current Patient Location: ER Accession/Order Number: [id number] Exam Date: 09/09/2025 22:45 Report Date: 09/09/2025 23:14 At the request of: ONIEL DELGADO MD Procedure: CT abdomen pelvis w con CT abdomen pelvis w con 09/09/2025 10:57 PM SIGNS AND SYMPTOMS: ^right groin pain/cellulitis \S.br\ TECHNIQUE: Multidetector ct axial images of the abdomen and pelvis were obtained with IV contrast. Multiplanar reformats were performed and reviewed to further define anatomy and possible pathology. CT was performed with one or more of the following dose reduction techniques: Automated exposure control, adjustment of the mA and/or kV according to patient size, or use of iterative reconstruction technique. COMPARISON: 07/23/2025 FINDINGS: Lower Chest: Atherosclerotic changes are noted in the thoracic aorta. There is a hiatal hernia with a small amount of gastric fundus in the lower mediastinum. ABDOMEN: Liver: Calcified granulomas are noted in the liver. Bile Ducts: Normal caliber. Gallbladder: No calcified gallstones. Normal caliber wall. Pancreas: Within normal limits. Spleen: Calcified granulomas are noted in the spleen. Adrenals: Within normal limits. Kidneys: Within normal limits. Pelvis: Reproductive Organs: No pelvic masses. Ureters: Within normal limits. Bladder: Within normal limits. Bowel: There are uncomplicated colonic diverticula. There is no evidence of bowel obstruction. There is a normal appendix in the right lower quadrant. Mesenteric Lymph Nodes: No enlarged mesenteric lymph nodes. Peritoneum: No ascites or free air, no fluid collection. Vessels: Atherosclerotic changes noted in the abdominal aorta and its branches. Retroperitoneum: Within normal limits. Abdominal Wall: Soft tissue swelling is noted in the right inguinal region. There is an area of focal enhancement suggesting a subcutaneous abscess measuring 2.4 x 1.9 x 1.9 cm in greatest dimension within the right inguinal region. Bones: Degenerative changes are noted in the thoracolumbar spine. Degenerative changes are noted in the hips. CT/CT abdomen pelvis w con IMPRESSION: There is an area of focal enhancement suggesting a subcutaneous abscess measuring 2.4 x 1.9 x 1.9 cm in greatest dimension within the right inguinal region. There is accompanying adjacent cellulitis in the subcutaneous fat of the right inguinal region. Additional chronic findings are noted as above. Impression dictated by: Carlos Knight M.D. 09/09/2025 11:14 PM Dictation Location: [place] [address] Electronically authenticated by: [id number] Y Date: 09/09/2025 23:14
--- NOTE | 2025-09-09 22:26 | ED_ITS ---
HPI - Skin/Abscess/Foreign Bdy General Chief complaint: Skin/Abscess/Foreign Body Stated complaint: GROIN PAIN Time Seen by Provider: 09/09/25 22:14 Source: patient Mode of arrival: ambulance History of Present Illness HPI narrative: history of 02 dependent COPD. states yesterday noticed soreness right groin. States instructed by nursing to apply heat. Today has increased pain at the site and now arrives via Squad. Denies abdominal pain or nausea. No fever , chills Related Data Home Medications ?Medication ?Instructions ?Recorded ?Confirmed aspirin 81 mg tablet,delayed 81 mg PO DAILY previous s troke 09/21/23 09/09/25 release atorvastatin 40 mg tablet 40 mg PO .qhs 09/21/2309/09 trazodone 50 mg tablet 50 mg PO .QHS 09/21/2309/09 ticagrelor 90 mg tablet 90 mg PO Q12H 08/11/2509/09 fluoxetine 20 mg capsule 20 mg PO QDAY 08/22/2509/09 sodium chloride 0.65 % nasal drops 2 drp intranasal QI D PRN dry nasal 08/22/25 09/09/25 ([place] [facility]) passages Previous Rx's ?Medication ?Instructions ?Recorded albuterol sulfate 90 mcg/actuation 2 inh inhalation Q4 H PRN shortness 05/11/25 aerosol inhaler of breath or wheezing #1 g fluticasone 250 mcg-salmeterol 50 1 inh inhalation BID #60 ea 05/11/25 mcg/dose blistr powdr for inhalation (Advair Diskus) ipratropium 0.5 mg-albuterol 3 mg 3 ml inhalation Q4H PRN shortness 05/11/25 (2.5 mg base)/3 mL nebulization of breath or wheezing #180 mL soln losartan 25 mg tablet 25 mg PO DAILY #30 tabs 04/23 furosemide 20 mg tablet (Lasix) 20 mg PO DAILY #3 tabs 08/22/25 Allergies Allergy/AdvReac Type Severity Reaction Status Date / Time bee venom protein (honey bee) Allergy Severe Anaphylaxis Verified 09/09/25 22:10 Review of Systems 2 ROS0 Status of ROS 10 or more systems reviewed and unremark able except as noted in history and below [facility] Medical History History of common carotid artery stent placement ?Z98.890 - Other specified postprocedural states (ICD-10) ?Z95.828 - Presence of other vascular implants and grafts (ICD-10) 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 - Polyp of vocal cord and larynx (ICD-10) Vertebral artery occlusion ?I65.09 - Occlusion and stenosis of unspecified vertebral artery (ICD-10) Tourette's ?F95.2 - Tourette's disorder (ICD-10) Testicle lump ?N50.89 - Other specified disorders of the male genital organs (ICD-10) Rheumatic fever ?I00 - Rheumatic fever without heart involvement (ICD-10) Pigmented skin lesion of uncertain nature ?L81.9 - Disorder of pigmentation, unspecified (ICD-10) Papule of skin ?R23.8 - Other skin changes (ICD-10) Osteoarthritis ?M19.90 - Unspecified osteoarthritis, unspecified site (ICD-10) Neck mass ?R22.1 - Localized swelling, mass and lump, neck (ICD-10) Multiple pulmonary nodules ?R91.8 - Other nonspecific abnormal finding of lung field (ICD-10) Marijuana abuse ?F12.10 - Cannabis abuse, uncomplicated (ICD-10) Insomnia ?G47.00 - Insomnia, unspecified (ICD-10) Degenerative cervical disc ?M50.30 - Other cervical disc degeneration, unspecified cervical region (ICD- 10) CVA (cerebral vascular accident) ?I63.9 - Cerebral infarction, unspecified (ICD-10) COVID-19 ?U07.1 - COVID-19 (ICD-10) Centrilobular emphysema ?J43.2 - Centrilobular emphysema (ICD-10) Calcified lymph nodes ?I89.8 - Other specified noninfective disorders of lymphatic vessels and lymph nodes (ICD-10) Bilateral carotid artery stenosis ?I65.23 - Occlusion and stenosis of bilateral carotid arteries (ICD-10) Allergic rhinitis ?J30.9 - Allergic rhinitis, unspecified (ICD-10) Alcohol abuse ?F10.10 - Alcohol abuse, uncomplicated (ICD-10) Anxiety ?F41.9 - Anxiety disorder, unspecified (ICD-10) Cerebrovascular disease ?I67.9 - Cerebrovascular disease, unspecified (ICD-10) COPD (chronic obstructive pulmonary disease) ?J44.9 - Chronic obstructive pulmonary disease, unspecified (ICD-10) Depression, unspecified ?F32.A - Depression, unspecified (ICD-10) Dyslipidemia ?E78.5 - Hyperlipidemia, unspecified (ICD-10) 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 - Other diseases of vocal cords (ICD-10) Surgical History History of vocal cord polypectomy ?Z98.890 - Other specified postprocedural states (ICD-10) H/O adenoidectomy ?Z90.89 - Acquired absence of other organs (ICD-10) History of tonsillectomy ?Z90.89 - Acquired absence of other organs (ICD-10) Family History Mother Family history of CHF (congestive heart failure) Family history of COPD (chronic obstructive pulmonary disease) Hypertension Sister Family history of diabetes mellitus Father Family history of cancer Other Family history of myocardial infarction Social History Within the past year, how often did you have a drink containing alcohol: never Within the past year, how often did you have six or more drinks on one occasion: never Score interpretation: A score less than 4 is consistent with normal alcohol consumption. Smoking status: Former smoker Second hand tobacco smoke exposure: No Non-prescribed substance use: former substance user Non-prescribed substance use details: doesn't use anymore Previous occupational history: retired Known occupational exposures/hazards: No Highest level of school completed/degree received: high school graduate Are you now , , , , never or living with a partner: living with partner In a typical week, how many times do you talk on the telephone with family, friends, or neighbors: 3 or more times per week How often do you get together with friends or relatives: 3 or more times per week How often do you attend muslim or jew services: 1-3 times per year Do you belong to any clubs or organizations such as muslim groups unions, fraternal or athletic groups, or school groups: no Total score: 2 Score interpretation: A score of greater than or equal to 2 indicates the lowest level of social isolation. Little interest or pleasure in doing things: not at all Feeling down, depressed, or hopeless: not at all Feel stressed/tense/nervous/anxious/difficulty sleeping: not at all Due to disability, difficulty making decisions: No Do you think of yourself as: straight/heterosexual Gender Identity: male Exam Constitutional Vital Signs, click to edit/add: Last Vital Signs Temp 98.4 F 09/09/25 22:13 Pulse 90 09/10/25 01:52 Resp 20 09/10/25 01:52 BP 126/66 09/10/25 01:52 Pulse Ox 100 09/10/25 01:52 O2 Del Method Nasal Cannula 09/10/25 01:52 O2 Flow Rate 3 09/10/25 01:52 Common normals: no apparent distress, average body habitus, oriented x3, no limitations, healthy appearing, alert and well nourished HENMT Common normals: normocephalic and head/scalp atraumatic Eye Common normals: EOMs intact bilaterally and conjunctivae normal Respiratory Common normals: normal respiratory effort, no retractions, no use of accessory muscles and clear to auscultation bilaterally Cardio Common normals: regular rate, regular rhythm, S1 normal heart sound and S2 normal heart sound GI Common normals: Normal to inspection, nondistended, normoactive bowel sounds present, soft to palpation and non-tender Genital images (male): 2 1. swelling, induration and erythema. mod tenderness Neuro Common normals: oriented x3 and CN's II-XII intact bilaterally Other: left upper and lower ext weaker than the right. Has 1+ edema LLE Psych Appearance: grossly normal Course Vital Signs Vital signs: Vital Signs Temperature 98.4 F 09/09/25 22:13 Pulse Rate 102 H 09/09/25 22:13 Respiratory Rate 20 09/09/25 22:13 Pulse Oximetry 97 09/09/25 22:13 Oxygen Delivery Method Nasal Cannula 09/09/25 22:13 Oxygen Delivery Flow Rate 3 09/09/25 22:13 Temperature 98.4 F 09/09/25 22:13 Pulse Rate 90 09/10/25 01:52 Respiratory Rate 20 09/10/25 01:52 Blood Pressure 126/66 09/10/25 01:52 Pulse Oximetry 100 09/10/25 01:52 Oxygen Delivery Method Nasal Cannula 09/10/25 01:52 Oxygen Delivery Flow Rate 3 09/10/25 01:52 MDM - Skin/Abscess/Foreign Bdy MDM Narrative Medical decision making narrative: patient presents with right groin pain that started yesterday and has increased today. No injury or fever. Exam with induration and tenderness right groin but no area of obvious fluctuance and wound is not pointing. IV estalished and labs checked including CBC, BMP. Patient ordered dose of zosyn and vanco. CT returns with finding of 2.4x1.9x1.9 SQ abscesss right inguinal region and accompanying adjacent cellulitis . no surgery available at this hospital and no obvious site to perform I and D. Hospitalist at [facility] paged. Patient accepted in transfer Lab Data Labs: Lab Results 09/09/25 Range/Units 22:35 WBC 9.9 (4.0-11.0) 10^3/uL RBC 3.88 L (4.70-6.10) 10^6/uL Hgb 11.6 L (14.0-18.0) g/dL Hct 36.5 L (42.0-54.0) % MCV 94.1 H (80.0-94.0) fL MCH 29.9 (25.9-34.0) pg MCHC 31.8 (29.9-35.2) g/dL RDW 12.4 (11.0-15.0) % Plt Count 318 (150-450) 10^3/uL MPV 9.5 (9.5-13.5) fL Neut % (Auto) 76.5 H (43.0-75.0) % Lymph % (Auto) 7.7 L (20.5-60.0) % [place] % (Auto) 14.5 H (1.7-12.0) % Eos % (Auto) 0.1 L (0.9-7.0) % Baso % (Auto) 0.8 (0.2-2.0) % Neut # (Auto) 7.6 H (1.4-6.5) 10^3/uL Lymph # (Auto) 0.8 L (1.2-3.8) 10^3/uL [place] # (Auto) 1.4 H (0.3-0.8) 10^3/uL Eos # (Auto) 0.0 (0.0-0.7) 10^3/uL Baso # (Auto) 0.1 (0.0-0.1) 10^3/uL Abs Immat Gran (auto) 0.04 H (0.00-0.03) 10^3/uL Imm/Tot Granulo (auto) 0.4 (0.0-0.5) % Sodium 137 (136-145) mmol/L Potassium 3.5 (3.5-5.1) mmol/L Chloride 103 (98-107) mmol/L Carbon Dioxide 32.7 H (21.0-32.0) mmol/L Anion Gap 4.8 BUN 12.0 (7.0-18.0) mg/dL Creatinine 0.84 (0.70-1.30) mg/dL Est GFR ( Amer) >60 (>=60 mL/min/1.73m^2) Est GFR (Non-Af Amer) >60 (>=60 mL/min/1.73m^2) BUN/Creatinine Ratio 14.3 Glucose 84 (74-106) mg/dL Lactate 1.0 (0.4-2.0) mmol/L Calcium 8.6 (8.5-10.1) mg/dL Total Bilirubin 0.7 (0.2-1.0) mg/dL AST 13 L (15-37) U/L ALT 19 (16-63) U/L Alkaline Phosphatase 72 (46-116) U/L Total Protein 6.5 (6.4-8.2) g/dL Albumin 3.2 L (3.4-5.0) g/dL Globulin 3.3 g/dL Albumin/Globulin Ratio 1.0 Discharge Plan Discharge Chief Complaint: Skin/Abscess/Foreign Body Clinical Impression: Abscess of groin, right, Cellulitis of groin, right Patient Disposition: [facility] Discharge Date/Time: 09/10/25 02:14
[2025-09-09 22:52] LABS: Hematocrit 36.5 % (42.0-54.0); Hemoglobin 11.6 g/dL (14.0-18.0); Immature Granulocytes Abs Auto 0.04 10^3/uL (0.00-0.03); Immature Granulocytes Pct Auto 0.4 % (0.0-0.5); Lymphocytes Absolute Auto 0.8 10^3/uL (1.2-3.8); Mean Corpuscular HGB Conc 31.8 g/dL (29.9-35.2); Mean Corpuscular Hemoglobin 29.9 pg (25.9-34.0); Mean Corpuscular Volume 94.1 fL (80.0-94.0); Platelet Count 318 10^3/uL (150-450); Red Blood Count 3.88 10^6/uL (4.70-6.10); White Blood Count 9.9 10^3/uL (4.0-11.0)
[2025-09-09 23:04] LABS: Alanine Aminotransferase 19 U/L (16-63); Albumin Globulin Ratio 1.0; Albumin Level 3.2 g/dL (3.4-5.0); Alkaline Phosphatase 72 U/L (46-116); Anion Gap 4.8; Aspartate Amino Transferase 13 U/L (15-37); Blood Urea Nitrogen 12.0 mg/dL (7.0-18.0); Calcium 8.6 mg/dL (8.5-10.1); Carbon Dioxide 32.7 mmol/L (21.0-32.0); Chloride 103 mmol/L (98-107); Estimated GFR (African America >60 (>=60 mL/min/1.73m^2); Estimated GFR (Non-African Ame >60 (>=60 mL/min/1.73m^2); Globulin 3.3 g/dL; Glucose 84 mg/dL (74-106); Potassium 3.5 mmol/L (3.5-5.1); Sodium 137 mmol/L (136-145); Total Protein 6.5 g/dL (6.4-8.2)
[2025-09-09 23:07] LABS: Lactate/Lactic Acid 1.0 mmol/L (0.4-2.0)
[2025-09-09] MEDS: 0.9 % SODIUM CHLORIDE 1,000 ML 999 ML IV (23:09)
[2025-09-09] MEDS: PIPERACILLIN SODIUM/TAZOBACTAM 3.375 GM in 0.9 % SODIUM CHLORIDE 50 ML IV (23:09)
--- OUTSIDE RECORDS SUMMARY | 2025-09-09 23:27 | XMS_ITS | Patient Health Record ---
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 Name Role Phone Azul Quezada CNP Primary Care Provider Unavail able Jameson White Unavailable [phone] Allergies No Known Allergies Results Component Value Reference Range Notes HEMOGLOBIN Reviewed date:10/26/2024 07:27:51 AM Interpretation: Performing Lab: Notes/Report: [facility] , Hemoglobin 14.8 14.0-18.0 g/dL Performing Lab:see noteML - [facility] LBCT chest wo con Reviewed date:12/07/2024 02:32:11 PM Interpretation: Performing Lab: Notes/Report: Source Facility: [facility]-[address] [place] [address] [place] [address] CT Scan Report Signed Patient: SAM KRAMER MR#: [id number] : 1960 Acct:[id number] Age/Sex: 64 / M ADM Date: 12/07/24 Loc: CT Attending Dr: Jameson White D.O. Ordering Physician: Jameson White D.O. Date of Service: 12/07/24 Procedure(s): CT chest wo con Accession Number(s): [id number] cc: Azul Quezada NP [place] [address] Patient Name: SAM KRAMER MRN: [id number] date: 1960 Sex: M Assigned Patient Location: CT Current Patient Location: CT Accession/Order Number: [id number] Exam Date: 12/07/2024 13:12 Report Date: 12/07/2024 13:15 At the request of: JAMESONEUSEBIO WHITE Procedure: CT chest wo con CT [...] Marsh Jr., D.O.12/07/2024 1:15 PM Dictation Location: [place] [address] Electronically authenticated by: [id number] Y Date: 12/07/2024 13:15 Dictated By: Grupo Marsh M.D. Signed By: 12/07/241317 DD/ 14 TD/TT: Biological Engineer:CT Chest w/o contrast Reviewed date:12/07/2024 01:48:27 PM [...] nts Abrysvo Unknown 08/30/2024 Administered Flu, Flucelvax (97986) 6 mos and older, single-dose syringe (3665-2731)Unknown 4Administered Social History Tobacco Use: Social History Observation Description Date Details (start date - stop date) Former Smoker NA - NA Tobacco Control (Standard) Question Answer Notes Tobacco use: Former smoker How long has it been since you last smoked?1-5 yearsAdditional Findings: Tobacco jav-suobRo-qcytm cigarette smoker (20-30/day) Problems Problem Type SNOMED Code ICD Code Onset Dates Problem Status W/U Status Risk Notes Problem Centrilobular emphysema (74857837) Centri lobular emphysema (J43.2) ActiveconfirmedPrior treatments: Symbicort 160 + Spiriva 2.5 > Stiolto, Advair, Trelegy & Breo (does not tolerate dry powder inhalers)ProblemLong-term current use of inhaled steroid (743559886)halfway (current) use of inhaled steroids (Z79.51)ActiveconfirmedProblemLong-term current use of systemic steroid (577203866403759)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 (Z79.52)Active confirmedProblemCOPD - Chronic obstructive pulmonary disease (31261918)COPD (chronic obstructive pulmonary disease) (J44.9)ActiveconfirmedProblemCannabis abuse (59918579)Marijuana abuse (F12.10)ActiveconfirmedProblemLeft hemiparesis (068719465)Left hemiparesis (G81.94)ActiveconfirmedProblemEx-tobacco user (finding) (497957588)History of tobacco abuse (Z87.891)Jqqyfetcsiyapcu2sqx x ~35 years, quit roblemRight carotid artery stenosis (281705381251626)Carotid atherosclerosis, right (I65.21)ActiveconfirmedProblem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)Activeconfirmed Vital Signs Heart Rate 99 /min 03/14/2025 Odxtnqdnwgs18.8 degrees Vgiszniysn56/23/2025Respiratory Rate20 /min03/14/2025 Dhllliid80 %03/14/2025lood pressure smtraxqru14 mm Hg03/14/20258092Saoqjy94 in 03/14/2025lood pressure vxweocyt614 mm Hg03/14/20257025Hhgzyn456.8 lbs03/14/2025MI 26.68 kg/m203/14/2025 Procedures Procedure Date Ordered Date Performed Result Body Sit e PFT (02610, 03792, 13310) 10/12/2024 N/A Encounters Encounter Location Date Provider Diagnosis Pulmonary Medicine [place] [address] [place] [address] 12/07/2024 [facility] Pulmonary Medicine [address] [place] [address]/09/20[facility] [address] [place] [address] 11/08/2024[facility] Medicine [address] [place] [address]/[facility] J43.2 ; Multiple pulmonary nodules R91.8 ; History of tobacco abuse Z87.891and halfway (current) use of inhaled steroids Z79.51Pulmonary Medicine [address] [place] [address]/[facility] SamsaCentrilobular emphysema J43.2 ; Multiple pulmonary nodules R91.8 ; History of tobacco abuse Z87.891; 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 10/12/2024Long term (current) use of inhaled steroids [...] on smoking cessation/continued tobacco abstinence. Due 11/2025. 10/12/2024Other Counseled not to smoke anything. 12/14/20247990Stigs09/23/2025Other Plan Of Treatment Pending Test Test Name Order Date PFT (41010, 21011, 83515) 10/12/2024 Insurance Providers Payer Name Payer Address Payer Phone Subscriber Number Group Number Insured Name Patient Relationship to Insured Coverage Start Date Coverage End Date [place] [address] [place] [address] [id number] Marco Antonio Kramer - patient is the [id number] 1993 Medical (General) History Medical History History ICD Code Centrilobular emphysema J43.2 Allergic rhinitis J30.9 Bilateral carotid artery stenosis I65.23 Calcified lymph nodes I89.8 Depression with anxiety F41.8 Marijuana abuse F12.10 Peripheral eosinophilia D72.19 Tourette's F95.2 Osteoarthritis M19.90 Multiple pulmonary nodules R91.8 Vertebral artery occlusion, unspecified laterality I65.09 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
--- OUTSIDE RECORDS SUMMARY | 2025-09-09 23:27 | XMS_ITS | Clinical Summary ---
Author Organization [email or web address] [facility] tem Address [id number] [address] [place] [address] Care Team Providers Care Marksmanship Instructor Name Role Phone Azul Quezada APRN-CATERING TRUCK DRIVER Primary Care Provider Allergies Active AllergyReactionsCriticalityNoted DateCommentsBee [...] Active Problems ProblemNoted DateDiagnosed DateStroke (cerebrum)07/08/2025Mixed hyperlipidemia 07/20/20208500Jjovsf36/29/2020Internal carotid artery stenosis, right06/10/2020CVA (cerebral vascular accident)06/10/2020 Encounters DateTypeDepartmentCare PybkNklnkhpnafg27/04/2025 1:30 PM ESTOffice Visit [facility] A Department of [facility] [address] [facility] [address] [place] [phone] Andrew Terrell MD Carotid stenosis, right (Primary Dx); Internal carotid artery stenosis, right; Cerebrovascular accident (CVA) due to stenosis of right carotid artery ([facility]) 08/25/20256285Hcivze78/18/2025 11:30 AM EDT - 07/09/2025 12:30 PM EDTSurgery [facility] - Cardiac Cath [address] [place] [phone] Andrew Terrell MD Diagnostic cerebral gltlmaaxe93/17/5509Ynfcws22/16/2025 12:52 PM EDT - 07/12/2025 4:58 PM EDTHospital Encounter [facility] - GEN 8 Acute [address] [place] [phone] Checo Aguilera MD Afreen, Ehad, MD Internal carotid artery stenosis, right (Primary Dx) Discharge Disposition: [facility] Facility-Medicare Cert07/07/2025 11:35 AM EDTAncillary Procedure [facility] [address] [place] [phone] Pain07/07/2025 11:30 AM EDTAncillary Procedure [facility] [address] [place] [address] Pain07/07/2025 11:20 AM EDTAncillary Procedure [facility] [place] [phone] Pain07/07/2025Orders Only [facility] [address] [place] [phone] External, Scanning Provider Pain (Primary Dx)from Last [...] relatives?Once a week06/10/2020How often do you attend holiness or alevism services?Never06/10/2020Do you belong to any clubs or organizations such as holiness groups, unions, fraEventBoard or athletic groups, or school groups?No 06/10/2020How often do you attend meetings of the clubs or organizations you belong to?Never06/10/2020Are you , , , , never , or living with a partner?Living with ghbxgkk5006/10/2020PHQ-2AnswerDate RecordedTotal Wljbf228[place] human resource s[place] [facility] - Occupational Stress QuestionnaireAnswerDate [...] a part of a household?No07/08/2025hildcareAnswerDate RecordedChildcareUnknown 03/03/2019EmploymentAnswerDate BxybejyfXakpqgtjshKpjrfeo16/12/2019Hunger ScreeningAnswerDate RecordedWithin the past 12 months we worried whether our food would run out before we got money to buy more.Never True07/08/2025Within the past 12 months the food we bought just didn't last and we didn't have money to get more.Never True07/08/2025Purpose - LifeAnswerDate RecordedPurpose and direction in mneqQkclmfs84/26/2021ex and Gender InformationValueDate Recorded Sex Assigned at BirthNot on fileLegal AiwVecq1804/27/2015 11:32 AM EDTGender IdentityNot on fileSexual OrientationNot on file Last Filed Vital Signs Vital SignReadingTime TakenCommentsBlood Zkplfjed652/7408/25/2025 1:27 PM EST Zgkus643508/25/2025 1:27 PM SBOQgkhdzvgkxw36.9 ??C (98.4 ??F)07/12/2025 11:45 AM EDTRespiratory Lfcx326907/12/2025 3:43 PM EDTOxygen Hhwkltdnws88%07/12/2025 3:43 PM EDTInhaled Oxygen Concentration--Lsiiny48.7 kg (206 lb 9.6 oz)08/25/2025 1:27 PM HXJDwphho142.4 cm (6' 0.99 )08/25/2025 1:27 PM ESTBody Mass Index27.26 08/25/2025 1:27 PM EST Plan of Treatment Health MaintenanceDue DateLast DoneCommentsTobacco Yjazjwzcug1960Adult BMI Follow Up Plan1978DTaP,Tdap and Td Vaccines (1 - Tdap)1979Zoster (Shingles) Vaccine (1 of 2)2010bdominal Aortic Aneurysm (AAA) Screen 2025Fall Risk Umkyfytnh87/01/2025dult BMI Okyrzdmrf52 Depression Pfsrwgmkt02Tobacco Xbluvgssl86RSV ( or age 60+ yrs)Mljfdskwg42/09/2024Influenza VaccineCompleted 07/12/2025, 08/16/2024, 2020, Additional history exists Goals GoalPatient Goal TypeAssociated ProblemsRecent ProgressPatient-Stated?Author Safe Discharge Jaki Mock, RN Note: Evaluation of progress towards goal: safe transition to SNF rehab for strengthening and rehab s/p stroke Medical Devices ImplantedTypeAreaManufacturerDevice IdentifierShelf Expiration DateModel / Serial / LotStnt Vsc 8/6mm 6fr 30mm 135cm - [id number] Implanted:Qty: 1 on 06/12/2020 [facility] CarotidMEDTRONIC [id number] / / [id number] Crtd Neuroguard 40mm 140cm Clsd Cell Bln Fltr - [id number] Implanted:Qty: 1 on 07/09/2025 by Andrew Terrell MD at [facility]05/16/[id number] / / [id number] Procedures Procedure NamePriorityDate/TimeAssociated DiagnosisCommentsEXTRA TUBES LAVENDER ZJOPetvseu81/21/2025 5:54 AM EDT EXTRA WHJABRnbqpji50/21/2025 5:54 AM EDT COMPREHENSIVE METABOLIC JGXKUVvjjaux19/21/2025 5:54 AM EDT COMPREHENSIVE METABOLIC PUUVTHqbtrjy27/20/2025 3:34 AM EDT CBC WITH AUTO QJDWMTKOFTHDWcrjzyx75/19/2025 3:28 AM EDT COMPREHENSIVE METABOLIC GCYWZGksorza69/19/2025 3:28 AM EDT NEURO KNEMNZRHNwfwbkl32/18/2025 12:45 PM EDTNEURO ACTGHQQVNpdkkwo01/18/2025 12:45 PM EDTCBC WITH AUTO WQZOTBPJDFMEPdzsder44/18/2025 3:48 AM EDT COMPREHENSIVE METABOLIC VMKUEWmwuitg87/18/2025 3:48 AM EDT FL SWALLOW MOTILITY BURHHJHFTqsopwq12/17/2025 1:46 PM EDT ECHO COMPLETE W UICJGZXYXfqngsd64/17/2025 1:37 PM EDT VASC CAROTID DUPLEX EBWBVAXVLWlwrevu31/17/2025 11:11 AM EDT CBC WITH AUTO OUOESFSMJZNVFivxylg92/17/2025 3:14 AM EDT COMPREHENSIVE METABOLIC HHQTXNalurnx77/17/2025 3:14 AM EDT LIPID CQYEMGQEuhaycq13/17/2025 3:14 AM EDT MR BRAIN WO BTAUEYUA70/ 9:02 PM EDT XR CHEST 1 IKQtyfaup22/16/2025 6:56 PM EDT ECG 12-EMOIMRPZ95/16/2025 5:35 PM EDT B-TYPE NATRIURETIC PEPTIDEAdd-On07/07/2025 3:49 PM EDT CBC WITH AUTO UOLGITDAOVADQrammwt19/16/2025 3:49 PM EDT COMPREHENSIVE METABOLIC UORWNGdtzscq53/16/2025 3:49 PM EDT HEMOGLOBIN J4NGskwjxn87/16/2025 3:49 PM EDT BEDSIDE MHTTYFUVqtygaw92/16/2025 2:[address] CEREBRAL PERF NDLDFTXCZSLO38/16/2025 2:[address] CTA TMORMZNJmjgopg52/16/2025 11:[address] CTA YVDARxdphid77/16/2025 11:[address] BRAIN WO DQDSPhjyckt35/16/2025 11:20 AM EDT Pain from Last 3 Months Results * Lavender Top (07/12/2025 5:54 AM EDT)ComponentValueRef RangeTest Method Analysis TimePerformed AtPathologist SignatureExtra TubeAuto Resulted 07/12/2025 7:01 AM TTVETERANS HEALTH ADMINISTRATION LABORATORYSpecimen (Source) Anatomical Location / LateralityCollection Method / VolumeCollection Time Received TimeBloodVenous blood / Yefjniy0007/12/2025 5:54 AM EDT1 6:11 AM EDT Narrative Authorizing ProviderResult TypeResult StatusMouhammasonia BAKER BLOOD ORDERABLESFinal ResultPerforming OrganizationAddressCity/State/ZIP CodePhone Number [facility] [address] [place] [address], [place] [phone] * (ABNORMAL) Comprehensive metabolic panel (07/12/2025 5:54 AM EDT) Only the most recent of6 resultswithin the time period is included. ComponentValueRef RangeTest MethodAnalysis TimePerformed AtPathologist Signature XDRYCI627119 - 146 mmol/L1 6:49 AM [facility] LABORATORYPOTASSIUM4.03.5 - 5.0 mmol/L1 6:49 AM [facility] OZCOQMGSXHNDOLVEBE57341 - 109 mmol/L1 6:49 AM [facility] LABORATORYCARBON WUAFBWR1857 - 32 mmol/L1 6:49 AM [facility] LABORATORYANION GAP85 - 15 mmol/L1 6:49 AM [facility] LABORATORYBLOOD UREA SNJXKKRP669 - 27 mg/dL07/12/2025 6:49 AM [facility] LABORATORYCREATININE0.750.60 - 1.30 mg/dL07/12/2025 6:49 AM [facility] LABORATORYComment:METHOD TRACEABLE TO IDNJ CFNBCVRIDGLHZBD7315 - 99 mg/dL07/12/2025 6:49 AM [facility] LABORATORYCALCIUM8.68.5 - 10.5 mg/dL07/12/2025 6:49 AM [facility] LABORATORYTOTAL PROTEIN5.6(L)6.0 - 8.0 g/dL07/12/2025 6:49 AM [facility] LABORATORYALBUMIN3.43.2 - 5.3 g/dL07/12/2025 6:49 AM [facility] LABORATORYALKALINE GERCHNUUVYJ3064 - 130 U/L1 6:49 AM [facility] IJXFOMZEOLCDC62<=41 U/L1 6:49 AM [facility] ZYMZBGKTXNCAA49<=40 U/L1 6:49 AM [facility] LABORATORYBILIRUBIN,TOTAL0.90.3 - 1.2 mg/dL07/12/2025 6:49 AM [facility]ORYEGFR Non-Race Dependent>90>=60 ml/min/1.73sq.m 07/12/2025 6:49 AM [facility] LABORATORYComment: Reported eGFR is based on the CKD-EPI 2020 equation that does not use a race coefficient. Specimen (Source)Anatomical Location / LateralityCollection Method / Volume Collection TimeReceived TimeBloodVenous blood / UnknownVenipuncture / Unknown 07/12/2025 5:54 AM EDT1 6:11 AM EDT Narrative Authorizing ProviderResult TypeResult StatusAhmed Deven Guzman KSLAB BLOOD ORDERABLESFinal ResultPerforming OrganizationAddressCity/State/ZIP CodePhone Number [facility] [address] [place] [address], * (ABNORMAL) CBC auto differential (07/10/2025 3:28 AM EDT) Only the most recent of4 resultswithin the time period is included. ComponentValueRef RangeTest MethodAnalysis TimePerformed AtPathologist Signature WBC10.04 - 11 x10E9/L1 3:55 AM [facility] RBC Count4.304.1 - 5.7 X10E12/L1 3:55 AM [facility] VCGPTANFISNepsajnxzs42.6(L)13 - 17 g/dL07/10/2025 3:55 AM [facility] QJXPBWXYAJVorhsoqlny37.9(L)39 - 50 %07/10/2025 3:55 AM [facility] LMIBIQCDBMJNB7635 - 100 fL07/10/2025 3:55 AM [facility] ZMQDPBLZJPXZE72.427 - 34 pg07/10/2025 3:55 AM [facility] XCJUVGMBITFEYC51.332 - 36 g/dL07/10/2025 3:55 AM [facility] ENTXSQUZUQDNY11.911.5 - 15 %07/10/2025 3:55 AM [facility] LABORATORYPlatelet Mouwt943896 - 450 X10E9/L1 3:55 AM [facility] LABORATORYMPV7.47 - 12 fL07/10/2025 3:55 AM EDT [facility]OR[facility]ORYNeutrophils %75.4%07/10/2025 3:55 AM EDT [facility]OR[facility]ORYLymphocytes %10.4%07/10/2025 3:55 AM EDT [facility]OR[facility]ORYMonocytes %10.7%07/10/2025 3:55 AM [facility] LABORATORYEosinophils %3.0%07/10/2025 3:55 AM [facility] LABORATORYBasophils %0.5%07/10/2025 3:55 AM [facility] LABORATORYNeutrophils Absolute (A)7.5(H)1.5 - 6.6 10*3/uL07/10/2025 3:55 AM [facility] LABORATORYLymphocytes Absolute1.01.0 - 3.5 10*3/uL07/10/2025 3:55 AM [facility] LABORATORYMonocytes Absolute1.1(H)0.0 - 0.9 10*3/uL07/10/2025 3:55 AM [facility] LABORATORYEosinophils Absolute0.30.0 - 0.4 10*3/uL07/10/2025 3:55 AM [facility] LABORATORYBasophils Absolute0.10.0 - 0.2 10*3/uL07/10/2025 3:55 AM [facility] LABORATORYDifferential TypeAUTOMATED WYZQZMLZFSTA30/19/2025 3:55 AM [facility] LABORATORYSpecimen (Source)Anatomical Location / LateralityCollection Method / VolumeCollection TimeReceived TimeBloodVenous blood / UnknownVenipuncture / Zcarasr8307/10/2025 3:28 AM EDT1 3:42 AM EDT Narrative Authorizing ProviderResult TypeResult StatusAhmed Deven Guzman MDLAB BLOOD ORDERABLESFinal ResultPerforming OrganizationAddressCity/State/ZIP CodePhone Number [facility] [address] [place] [address], * Fluoroscopy swallow motility function (07/08/2025 1:46 [...] EDT)ComponentValueRef RangeTest MethodAnalysis TimePerformed AtPathologist SignatureLVOT stroke ieyjet38.58ml EMBYDYECH9442 - 44 %XCELERALVIDd5.906.58 - 9.14 cmXCELERALVIDs3.703.82 - 5.79 cmXCELERAIVS0.900.6 - 1.1 cmXCELERAPW0.900.6 - 1.1 cmXCELERALVOT diameter1.90 cmXCELERATDI6.31cm/sXCELERAMV TDI E' (medial)5.98cm/sXCELERAE/A ratio0.82 XCELERAE wave deceleration oayj823.00msecXCELERAMV Peak E Vel76.00cm/sXCELERA MV Peak A Vel92.80cm/sXCELERALA size2.70cmXCELERARV diastolic dimension (basal)32.5kkOQUCHMKBJDQR3.83cmXCELERAAV peak vjx426.00cm/sXCELERALVOT peak vel1.31m/sXCELERAAV VTI25.10cmXCELERALVOT peak VTI25.60cmXCELERAAV mean gradient5.00mmHgXCELERAAV peak gradient7.62mmHgXCELERAAV valve area2.89XCELERA Valve area - Index1.3XCELERAMV pressure 1/2 time77.00msXCELERAMV valve area p 1/2 method2.31js2CSDUBGUFW peak gradient3.11mmHgXCELERALV ESV A4C22.60mL XCELERALV RWT 2D30.51XCELERAAV Velocity Ratio1.02XCELERALeft Ventricle Mass 209.680684737897183jDYHUEIXHztguahbhkekwcff Septum Diastolic Thickness by 2D9 cmXCELERAEst. RA igjcouum9ilUlFURFJKUYL area16.8ea7JJPXODSMZTMWU-3.90XCELERA ZLVIDD-2.73XCELERAAnatomical RegionLateralityModalityChestN/AUltrasound Specimen (Source)Anatomical Location / LateralityCollection [...] due to patient's respiration. Authorizing ProviderResult TypeResult StatusPaulding County Hospitalsonia Zhang [facility] ECHO ORDERABLESFinal Result * Vas carotid duplex [...] besidetheir name. Authorizing ProviderResult TypeResult StatusRosibel Zhang [facility] VASCULAR ORDERABLESFinal Result * (ABNORMAL) Lipid profile (07/08/2025 3:14 AM EDT)ComponentValueRef RangeTest MethodAnalysis TimePerformed AtPathologist HvpzssbibDMVWXVCSAGR643(L)150 - 200 mg/dL07/08/2025 4:33 AM [facility] BKOMBAWOSGZPJVZMQHDZZG6736 - 150 mg/dL07/08/2025 4:33 AM [facility] LABORATORYHDL MEUAPUAXAYM70>39 mg/dL07/08/2025 4:33 AM [facility] LABORATORYComment: HDL <40 mg/dL - High Risk HDL > or = 40mg/dL- Desirable HDL >60 mg/dL - Negative Risk LDL (CALC)51<130 mg/dL07/08/2025 4:33 AM [facility] Comment: LDL <100 mg/dL - Desirable LDL >160 mg/dL - High Risk CHOLESTEROL:HDL2.31.0 - 5.010 4:33 AM [facility] LABORATORYVERY LOW QNQOHOIZQAQ797 - 30 mg/dL07/08/2025 4:33 AM [facility] LABORATORYSpecimen (Source)Anatomical Location / Laterality Collection Method / VolumeCollection TimeReceived TimeBloodVenous blood / UnknownVenipuncture / Rqrnkeb1907/08/2025 3:14 AM EDT1 3:51 AM EDT Narrative Authorizing ProviderResult TypeResult StatusRosibel Zhang MDSAINT JOHN H[facility]PITAL BLOOD ORDERABLESFinal ResultPerforming OrganizationAddressCity/State/ZIP CodePhone Number [facility] [address] [place] [address], [place] [phone] * MR brain without contrast (07/07/2025 9:02 [...] 3:49 PM EDT)ComponentValueRef RangeTest MethodAnalysis TimePerformed AtPathologist YgssswlikJIC65<=100 pg/mL07/07/2025 6:01 PM EDTTVETERANS HEALTH ADMINISTRATION LABORATORYSpecimen (Source)Anatomical Location / LateralityCollection Method / VolumeCollection TimeReceived Time BloodVenous blood / UnknownVenipuncture / Wqxfoce1607/07/2025 3:49 PM EDT 07/07/2025 4:02 PM EDT Narrative Authorizing ProviderResult TypeResult StatusErick Guzman MDLAB BLOOD ORDERABLESFinal ResultPerforming OrganizationAddressCity/State/ZIP CodePhone Number [facility] [address] [place] [address], * (ABNORMAL) Hemoglobin A1c (07/07/2025 3:49 PM EDT)ComponentValueRef RangeTest MethodAnalysis TimePerformed AtPathologist SignatureHEMOGLOBIN A1C5.7(H)4.4 - 5.6 %07/07/2025 4:50 PM [facility] LABORATORYComment: ?ADA Guidelines ?Result ?HgbA1c ? Normal : ? less than 5.7 % ? Prediabetes : ?5.7 % ??to 6.4 % Diabetes : > 6.4 % ?Use with caution in patients with abnormal hemoglobin variants as ??the half-life of red blood cells and in vivo glycation rates are ??affected. EST. AVERAGE KKLRDDP158xj/dL07/07/2025 4:50 PM [facility] LABORATORYSpecimen (Source)Anatomical Location / LateralityCollection Method / VolumeCollection TimeReceived TimeBloodVenous blood / UnknownVenipuncture / Twydeoh3607/07/2025 3:49 PM EDT1 4:02 PM EDT Narrative Authorizing ProviderResult TypeResult StatusRosibel Zhang MDLAB BLOOD ORDERABLESFinal ResultPerforming OrganizationAddressCity/State/ZIP CodePhone Number [facility] [address] [place] [address], [place] [phone] * (ABNORMAL) Bedside Glucose *Place/Obtain serum glucose if >500 per glucometer. (07/07/2025 2:48 PM EDT)ComponentValueRef RangeTest MethodAnalysis Time Performed AtPathologist SignatureBedside Glucose (POC)117(H)65 - 99 mg/dL 07/07/2025 2:53 PM EDTTAVITA HEALTH SYSTEM LABORATORYSpecimen (Source)Anatomical Location / LateralityCollection Method / VolumeCollection TimeReceived Time arterial/bvlkptnee92/16/2025 2:48 PM EDT1 2:53 PM EDT Narrative Authorizing ProviderResult TypeResult StatusMouhammad Deven Aguilera MDPOINT OF CARE TEST ORDERABLESFinal ResultPerforming OrganizationAddressCity/State/ZIP Code Phone Number [facility] [address] [place] [address], [place] * CT cerebral perfusion analysis (07/07/2025 [...] 2:47 PM Authorizing ProviderResult TypeResult Statusrafael Zhang [facility] ORDERABLES Final Result * CT [...] (Latest Code Status on File) Date ActivatedDate JubesceueztFbnvisqd41/16/2025 5:09 07/12/2025 7:04 PM Care Teams Team MemberRelationshipSpecialtyStart DateEnd Date Azul Quezada, VENDING MACHINE REFILLER-CATERING TRUCK DRIVER PCP - GeneralNurse Oupfbawsokhw30/9/19
--- OUTSIDE RECORDS SUMMARY | 2025-09-09 23:28 | XMS_ITS | Clinical Summary ---
Author Organization [facility] Address [address] [place] [address] Care Team Providers Care Fish Icer Name Role Phone zAul Quezada TOOLS AND PARTS ATTENDANT Unavailable [phone] Kiko Zurita MD Primary Care Provider [phone] Azul Quezada TOOLS AND PARTS ATTENDANT Unavailable [phone] Allergies Active AllergyReactionsCriticalityNoted DateCommentsBee DjsfpFvdhxda02/18/2020 Medications MedicationSigDispense QuantityRefillsLast FilledStart DateEnd DateStatus albuterol [...] DAYS05/11/2025 Active Active Problems ProblemNoted DateDiagnosed DateElevated awqgvvr0605/17/2025Pain of right hip 05/17/2025 Assessment & Plan (05/17/2025 5:24 PM EDT): Check xray and go from there intermediate current use of inhaled njybhgo2611/16/2024OPD with acute exacerbation 11/16/2024 Assessment & Plan (11/16/2024 6:53 PM EST): Add atb, steroids, check cxr Pt needs to get in touch with dr tim If resp condition worsens go to the ER Needs flu shot08/16/2024Former zswnqk1308/16/2024 Assessment & Plan (08/16/2024 1:38 PM EST): Quit smoking, and no smoking THC!! Great job Rising PSA level06/01/2024 Overview (09/07/2024): 02/2022: 0.86 04/2024: 1.91 09/07/24: 1.0 Screening for prostate wnhzka4305/19/2024 Overview (06/01/2024): PSA: 05/31/24 1.91, 04/29/23 0.94, 03/06/2022 0.86, 05/11/20 0.79 Sessile colonic polyp05/19/2024 Assessment & Plan (08/16/2024 7:27 AM EST): Has been referred to Gen Surgery for colonoscopy Right hand pain05/19/2024 Assessment & Plan (05/19/2024 3:10 PM EDT): Offered xray he declines Will just monitor at this time Overweight (BMI 25.0-29.9)12/15/2023Encounter for subsequent annual wellness visit (AWV) in Medicare brmzxzi7211/13/2023 Assessment & Plan (11/16/2024 7:09 AM EST): [...] EDT): No current med use for this Goekphuo09/08/2024 Assessment & Plan (08/16/2024 7:22 AM EST): Continue with trazodone Multiple pulmonary ycmcdte2110/30/2023entrilobular pgrmtodmt73/08/2024 Assessment & Plan (05/17/2025 6:54 AM EDT): 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, 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 and needs a referral to [facility] Chest [...] have asked the pt to contact his director patient financial services for management of this exacerbation He states [...] as well as current inhalers Vertebral artery ibmrfariw64/08/2024ilateral carotid artery jckecqiy28/08/2024 Assessment & Plan (05/17/2025 6:54 AM EDT): [...] active symptoms at this time Degenerative cervical disc10/30/20230406Auuuwcqbpcwtaq11/08/2024alcified lymph nodes10/30/2023Vocal cord polyp10/30/2023epression with epnspeh0410/30/2023 Assessment & Plan (05/17/2025 6:56 AM EDT): [...] doses Is stable at this time Allergic hawhvupx74/08/2024Marijuana abuse10/30/2023MI 26.0-26.9,adult 10/30/20231494Bvgwtx67/01/2020Mixed jmwxvdbdycpjwj33/29/2020 Assessment & Plan (11/13/2023 11:39 AM EST): [...] ProblemNoted DateDiagnosed DateResolved DateColon polyp Papule of skin/6614Nlfmgrxlv52 Assessment & Plan (10/30/2023 11:06 AM EST): Continues to slowly improve, recommend flu shot pt did not get this Fatigue remains, will see back in office in 2 weeks and remains off work Dgpxkk34 Assessment & Plan (08/16/2024 7:25 AM EST): [...] injectable, quadrivalent, preservative free07/05/2015 Influenza, live, intranasal, pdscjooxnpsj97/01/2020 Family History Medical HistoryRelationNameCommentsHeart attackFatherAsthmaMotherDiabetesMother HypertensionMotherRelationNameStatusCommentsFatherMother Social History Tobacco UseTypesPacks/DayYears UsedDateSmoking Tobacco: UnlbycWiouwurvoq427 03/1984 - 03/2019Smokeless Tobacco: Never Tobacco Cessation:Counseling [...] times a week11/13/2023How often do you attend spiritism or orthodox services?Never11/13/2023o you belong to any clubs or organizations such as spiritism groups, unions, fraternal or athletic groups, or school groups?Yes11/13/2023How often do you attend meetings of the clubs or organizations you belong to?More than 4 times per year11/13/2023re you , , , , never , or living with a partner? Dnudakh9211/13/2023UDIT-CAnswerDate RecordedQ1: How often do you have a [...] hard at all11/13/2023HQ-2AnswerDate RecordedPatient Health Questionnaire-2 Score2 11/16/2024Fin[facility] [place] [facility] Occup[facility] - Occupational Stress QuestionnaireAnswerDate RecordedDo you feel stress - tense, restless, nervous, or anxious, or unable to sleep at night because yourmind is troubled all the time - these days?Only a dpszzl3311/13/2023Exercise Vital SignAnswerDate Recorded On average, how many [...] Last Filed Vital Signs Vital SignReadingTime TakenCommentsBlood Smrpksil628/7608 3:38 PM EDT Sotfd393605/17/2025 3:38 PM YUGMwuowdgzpjr19.6 ??C (97.8 ??F)05/17/2025 3:38 PM EDTRespiratory Yvkk677205/17/2025 3:38 PM EDTOxygen Rdskxvtlgg97%05/17/2025 3:38 PM EDTInhaled Oxygen Concentration--Wqvugz03.8 kg (211 lb 3.2 oz)05/17/2025 3:38 PM NWOKzsdoe575.4 cm (6' 1 )08/16/2024 1:20 PM ESTBody Mass Index27.8608/16/2024 1:20 PM EST Plan of Treatment Health MaintenanceDue DateLast DoneCommentsCT Cxlyqqgyfthd1960FIT-DNA 1960FIT1960FOBT1960Lung Cancer Screening Shared Decision Xliyge24 1960 9182Ihurcgojpqydz1960Pneumococcal Vaccine: 65+ Years (1 of 2 - PCV)1979COVID-19 Vaccine (1 - season)2025Medicare Annual Wellness (AWV)6011/16/2024, 11/13/2023, 11/13/20237888Mwdpvfybdvt99/24/2029 06/15/2024olorectal Cancer Ilnjfjgjo80/24/2029Influenza VaccineCompleted 07/12/2025, 08/16/2024, 2020, Additional history exists Insurance Care Teams Team MemberRelationshipSpecialtyStart DateEnd Date Kiko Zurita MD PCP - GeneralFamily Medicine10/24/23 Azul Quezada NP [address] [place] [address] PCP - [facility]10/29/24 Azul Quezada NP Referring PhysicianNurse Practitioner04/07/23
[2025-09-10] MEDS: VANCOMYCIN HCL 1,250 MG in 0.9 % SODIUM CHLORIDE 500 ML 250 MG IV
[2025-09-10 01:52] VITALS: BP 126/66; PULSE 90; O2SAT 100
--- NOTE | 2025-09-10 02:08 | PC.NURSE ---
[facility] arrives for transport.
== END 2025-09-10 02:14 | disposition short-term general hospital (02) ==
PROVIDERS: Emergency Provider Internal Medicine; PCP Nurse Practitioner
DX: L02.214 Cutaneous abscess of groin (principal); L03.314 Cellulitis of groin; J44.9 Chronic obstructive pulmonary disease, unspecified; Z99.81 Dependence on supplemental oxygen; Z87.891 Personal history of nicotine dependence
CPT/HCPCS: 36415; 74177; 80053; 83605; 85025; 96365; 96366; 96367; 99285; J2543; J3373; Q9967